=== PATIENT | female | born 1950 | race Caucasian/White ===

== ENCOUNTER → 2017-09-30 15:19 | Outpatient (CLI) | payer OTHER, SELFPAY ==
[2017-09-30 17:45] LABS: Absolute Neutrophil Count 2.8 X10^3/uL (2.0-7.7); Basophil# 0.05 X10^3/uL; Eosinophils% 3.8 % (0-5); Hematocrit 33.6 % (37-47); Hemoglobin 11.1 g/dl (12.0-15.0); Lymphocyte % 30.5 % (19-41); Mean Corpuscular Hgb 31.6 pg (27.0-32.0); Mean Corpuscular Volume 95.7 fL (81-99); Mean Platelet Vol. 9.7 fl (6.2-12.0); Monocyte# 0.56 X10^3/uL; Monocyte% 10.7 % (0-10); Neutrophil # 2.81 X10^3/uL (2.7-7.7); Neutrophil % 53.4 % (47-70); Platelet Count 280 K/mm3 (150-450); RBC Distribution Width CV 13.3 % (11.6-14.6); RBC Distribution Width SD 44.7 fl (35.1-43.9); Red Blood Count 3.51 M/mm3 (4.2-5.4); White Blood Count 5.3 K/mm3 (4.4-11.0)
[2017-09-30 17:46] LABS: POSITIVE COUNT NO; POSITIVE DIFFERENTIAL NO; POSITIVE MORPHOLOGY NO
[2017-09-30 18:27] LABS: ALB/GLOB Ratio 0.9 RATIO (0.9-2.4); AST(SGOT) 16 U/L (15-37); Alanine Aminotransfer ALT/SGPT 23 U/L (13-56); Albumin, Serum 3.3 g/dL (3.2-5.0); Alkaline Phosphatase 51 U/L (45-117); Anion Gap 8 (5-15); BUN 20 mg/dL (7-18); BUN/Creat Ratio 24.5 RATIO (10-20); Calcium,Total 8.7 mg/dL (8.5-10.1); Chloride 103 mmol/L (98-107); Creatinine, Serum 0.82 mg/dL (0.55-1.02); EST Glomerular Filtration Rate 75 mL/min (>60); Est Glom Filt Rate - Afr Amer 90 mL/min (>60); Globulin 3.8 g/dL (2.2-4.2); Glucose 104 mg/dL (74-106); Protein, Total 7.1 g/dL (6.4-8.2); Sodium Level 139 mmol/L (136-145)
== END ==
PROVIDERS: Family Provider Family Medicine; PCP Family Medicine; Visit Provider Internal Medicine Rheumatology
DX: M06.4 Inflammatory polyarthropathy (principal); M18.0 Bilateral primary osteoarthritis of first carpometacarpal joints; M18.9 Osteoarthritis of first carpometacarpal joint, unspecified; E11.9 Type 2 diabetes mellitus without complications; I10 Essential (primary) hypertension; E78.5 Hyperlipidemia, unspecified; K21.0 Gastro-esophageal reflux disease with esophagitis; Z79.899 Other long term (current) drug therapy; Z85.3 Personal history of malignant neoplasm of breast; Z85.41 Personal history of malignant neoplasm of cervix uteri
CPT/HCPCS: 36415; 80053; 85025

== ENCOUNTER → 2017-11-03 16:28 | Outpatient (CLI) | payer OTHER, MEDICARE, SELFPAY ==
[2017-11-03 17:35] LABS: ALB/GLOB Ratio 0.8 RATIO (0.9-2.4); AST(SGOT) 18 U/L (15-37); Alanine Aminotransfer ALT/SGPT 27 U/L (13-56); Albumin, Serum 3.4 g/dL (3.2-5.0); Alkaline Phosphatase 55 U/L (45-117); Anion Gap 7 (5-15); BUN 12 mg/dL (7-18); BUN/Creat Ratio 16.4 RATIO (10-20); CPK Total, Creatine Kinase 85 U/L (26-192); Calcium,Total 8.9 mg/dL (8.5-10.1); Chloride 104 mmol/L (98-107); Creatinine, Serum 0.73 mg/dL (0.55-1.02); EST Glomerular Filtration Rate 85 mL/min (>60); Est Glom Filt Rate - Afr Amer 102 mL/min (>60); Glucose 126 mg/dL (74-106); Phosphorus 2.6 mg/dL (2.5-4.9); Potassium 3.8 mmol/L (3.5-5.1); Protein, Total 7.4 g/dL (6.4-8.2); Sodium Level 140 mmol/L (136-145)
[2017-11-04 09:33] LABS: Vitamin B12 576 pg/mL (211-911); Vitamin D,25 Hydroxy 31.5 ng/mL (29.95-100.01)
== END ==
PROVIDERS: Family Provider Family Medicine; PCP Family Medicine; Visit Provider Nurse Practitioner Acute Care
DX: R20.2 Paresthesia of skin (principal); R20.0 Anesthesia of skin; Z51.81 Encounter for therapeutic drug level monitoring; Z79.899 Other long term (current) drug therapy
CPT/HCPCS: 36415; 80053; 82306; 82550; 82607; 82746; 83735; 84100

== ENCOUNTER → 2017-11-14 15:55 | Outpatient (CLI) | payer OTHER, MEDICARE, SELFPAY ==
--- NOTE | 2017-11-14 15:56 | CT_ITS ---
STUDY: CT CERVICAL SPINE WITHOUT CONTRAST REASON FOR EXAM: Female, 67 years old. Numbness RADIATION DOSAGE (If Supplied By Facility): CTDIvol = ( 17.90 ) mGy, DLP = ( 318.42 ) mGycm TECHNIQUE: High resolution transaxial imaging was performed without contrast material. Sagittal and coronal images were reconstructed. Individualized dose optimization techniques were used for this CT. COMPARISON: None available. FINDINGS: There is no evidence of fracture or dislocation in the cervical spine. The dens is intact. Alignment is normal. The vertebral body heights and disc spaces are well-maintained. There are mild degenerative changes with facet hypertrophy and endplate spondylosis throughout the cervical spine. The visualized paraspinal soft tissues are within normal limits. CT/Spine Cervical without Contras IMPRESSION: No fracture or dislocation in the cervical spine. Mild degenerative changes. Electronically Signed: Jose May, at 23:43 EDT Tel , Service support ,
--- NOTE | 2017-11-14 15:57 | CT_ITS ---
STUDY: CT THORACIC SPINE WITHOUT CONTRAST REASON FOR EXAM: Female, 67 years old. Numbness and pain in the neck and hands. RADIATION DOSAGE (If Supplied By Facility): CTDIvol = ( 27.60 ) mGy, DLP = ( 1125.87 ) mGycm TECHNIQUE: The patient was scanned in a multi detector CT scanner. High resolution imaging was performed. Images were obtained from C4 to L2. Sagittal and coronal images were reconstructed. Individualized dose optimization techniques were used for this CT. COMPARISON: CT of the cervical spine, November 14, 2017 FINDINGS: There is multilevel endplate spondylosis of the cervical spine. There is minimal exaggeration of the thoracic kyphosis. There is a levoscoliosis with the convexity at T8. There is multilevel endplate spondylosis of the thoracic spine. There is multilevel degenerative disc disease with loss of the disc space heights. There is no evidence of acute fracture or loss of vertebral axial height. The soft tissue structures are unremarkable. CT/Spine Thoracic without Contras IMPRESSION: Scoliosis and degenerative changes of the thoracic spine. Electronically Signed: Mehdi Polanco DO at 16:41 EDT Tel [phone], Service support ,
== END ==
PROVIDERS: Family Provider Family Medicine; PCP Family Medicine; Visit Provider Nurse Practitioner Acute Care
DX: R20.0 Anesthesia of skin (principal); M79.602 Pain in left arm; M79.601 Pain in right arm
CPT/HCPCS: 72125; 72128

== ENCOUNTER → 2017-12-22 15:58 | Outpatient (CLI) | payer OTHER, MEDICARE, SELFPAY ==
[2017-12-22 18:31] LABS: Absolute Lymphocyte Count 1.41 X10^3/ul (0.83-4.51); Absolute Neutrophil Count 4.4 X10^3/uL (2.0-7.7); Basophil# 0.05 X10^3/uL; Basophil% 0.8 % (0-1); Eosinophil# 0.16 X10^3/uL; Eosinophils% 2.4 % (0-5); Hematocrit 36.3 % (37-47); Hemoglobin 12.1 g/dl (12.0-15.0); Lymphocyte # 1.41 X10^3/ul (4.0); Lymphocyte % 21.4 % (19-41); Mean Corp Hgb Conc 33.3 g/gl (32-36); Mean Corpuscular Hgb 31.7 pg (27.0-32.0); Monocyte# 0.53 X10^3/uL; Monocyte% 8.1 % (0-10); Neutrophil # 4.41 X10^3/uL (2.7-7.7); Platelet Count 293 K/mm3 (150-450); RBC Distribution Width CV 13.2 % (11.6-14.6); RBC Distribution Width SD 43.8 fl (35.1-43.9); Red Blood Count 3.82 M/mm3 (4.2-5.4); White Blood Count 6.6 K/mm3 (4.4-11.0)
[2017-12-22 18:34] LABS: ALB/GLOB Ratio 0.8 RATIO (0.9-2.4); AST(SGOT) 11 U/L (15-37); Alanine Aminotransfer ALT/SGPT 23 U/L (13-56); Albumin, Serum 3.5 g/dL (3.2-5.0); Alkaline Phosphatase 64 U/L (45-117); Anion Gap 5 (5-15); BUN 15 mg/dL (7-18); BUN/Creat Ratio 16.9 RATIO (10-20); Calcium,Total 9.1 mg/dL (8.5-10.1); Chloride 104 mmol/L (98-107); Creatinine, Serum 0.89 mg/dL (0.55-1.02); EST Glomerular Filtration Rate 68 mL/min (>60); Est Glom Filt Rate - Afr Amer 82 mL/min (>60); Globulin 4.4 g/dL (2.2-4.2); Glucose 175 mg/dL (74-106); Potassium 4.6 mmol/L (3.5-5.1); Protein, Total 7.9 g/dL (6.4-8.2); Sodium Level 140 mmol/L (136-145)
[2017-12-22 18:52] LABS: POSITIVE COUNT NO; POSITIVE DIFFERENTIAL NO; POSITIVE MORPHOLOGY NO
== END ==
PROVIDERS: Family Provider Family Medicine; PCP Family Medicine; Visit Provider Internal Medicine Rheumatology
DX: M06.4 Inflammatory polyarthropathy (principal); M18.0 Bilateral primary osteoarthritis of first carpometacarpal joints; M18.9 Osteoarthritis of first carpometacarpal joint, unspecified; I10 Essential (primary) hypertension; E78.5 Hyperlipidemia, unspecified; K21.0 Gastro-esophageal reflux disease with esophagitis; Z79.899 Other long term (current) drug therapy; Z85.3 Personal history of malignant neoplasm of breast; Z85.41 Personal history of malignant neoplasm of cervix uteri
CPT/HCPCS: 36415; 80053; 85025

== ENCOUNTER → 2018-02-01 08:22 | Outpatient (CLI) | payer OTHER, MEDICARE, SELFPAY ==
--- NOTE | 2018-02-01 14:18 | NEURO ---
NCS and/or EMG Patient Report Ordering Doctor: Kylie Retana DATE OF SERVICE: 02/01/18 Manisha Beth is a 67-year-old female presents for electrodiagnostic testing of the upper limbs. She has chief complaint of numbness and tingling in both hands. Electrodiagnostic findings: Median motor nerve demonstrates prolonged distal latency bilaterally with normal amplitude and reduced conduction velocity. Prolonged median sensory distal latency bilaterally. normal ulnar and radial sensory responses. Median ulnar F waves are within normal limits ulnar motor responses normal, including conduction across the elbow. Electrodiagnostic impression: This is an abnormal study in the upper limbs. 1. Electrodiagnostic findings demonstrate bilateral median mononeuropathy. This is consistent with a moderate right carpal tunnel syndrome and a mild left carpal tunnel syndrome If there are any further questions, please do not hesitate to contact me
== END ==
PROVIDERS: Family Provider Family Medicine; PCP Family Medicine; Visit Provider Nurse Practitioner Acute Care
DX: R20.0 Anesthesia of skin (principal); R20.2 Paresthesia of skin
CPT/HCPCS: 95886; 95913

== ENCOUNTER → 2018-03-01 08:47 | Outpatient (CLI) | payer OTHER, MEDICARE, SELFPAY ==
--- NOTE | 2018-03-01 10:37 | NEURO ---
NCS and/or EMG Patient Report Ordering Doctor: Kylie Retana DATE OF SERVICE: 03/01/18 Manisha Beth is a 67-year-old female presents for electrodiagnostic testing of the lower limbs. She reports chief complaint of numbness and tingling in both feet, worse on the right side. Electrodiagnostic findings: Peroneal motor nerve demonstrates normal distal latency, amplitude and conduction velocity bilaterally. Normal tibial motor response bilaterally. Prolonged tibial F-wave bilaterally. Prolonged H reflex bilaterally. Sensory responses are within normal limits. On needle EMG, all muscles tested in the lower limb show no evidence of denervation with normal motor unit action potentials. Electrodiagnostic impression: This is an abnormal study in the lower limbs. 1. Electrodiagnostic findings are suggestive of a mild polyneuropathy in the lower limbs as evidenced by prolonged H reflexes and F waves. 2. No EMG evidence for lumbosacral radiculopathy. If there are any further questions, please not hesitate to contact me
== END ==
PROVIDERS: Family Provider Family Medicine; PCP Family Medicine; Visit Provider Nurse Practitioner Acute Care
DX: R20.2 Paresthesia of skin (principal); R20.0 Anesthesia of skin
CPT/HCPCS: 95886; 95913

== ENCOUNTER → 2018-03-13 13:04 | Outpatient (CLI) | payer OTHER, MEDICARE, SELFPAY ==
--- NOTE | 2018-03-13 13:09 | RAD_ITS ---
STUDY: X-RAY - RIGHT KNEE REASON FOR EXAM: Female, 67 years old. Pain TECHNIQUE: 4 view(s) of the knee. COMPARISON: None. FINDINGS: Normal visualized distal femur. Normal visualized proximal tibia and fibula. Normal proximal tibiofibular articulation. Normal medial femorotibial compartment. Normal lateral femorotibial compartment. Normal patellofemoral articulation. The soft tissue structures are unremarkable. RAD/Knee 4 or More Views IMPRESSION: Normal x-ray examination of the knee. Electronically Signed: Saúl Diaz DO at 23:35 EDT Tel [phone], Service support ,
--- NOTE | 2018-03-13 13:09 | RAD_ITS ---
STUDY: X-RAY - LEFT KNEE REASON FOR EXAM: Female, 67 years old. Pain TECHNIQUE: 4 view(s) of the knee. COMPARISON: None. FINDINGS: Normal visualized distal femur. Normal visualized proximal tibia and fibula. Normal proximal tibiofibular articulation. Normal medial femorotibial compartment. Normal lateral femorotibial compartment. Normal patellofemoral articulation. The soft tissue structures are unremarkable. RAD/Knee 4 or More Views IMPRESSION: Normal x-ray examination of the knee. Electronically Signed: Saúl Diaz DO at 20:43 EDT Tel [phone], Service support ,
[2018-03-13 14:09] LABS: Absolute Lymphocyte Count 2.04 X10^3/ul (0.83-4.51); Absolute Neutrophil Count 3.9 X10^3/uL (2.0-7.7); Basophil# 0.04 X10^3/uL; Basophil% 0.6 % (0-1); Eosinophil# 0.25 X10^3/uL; Eosinophils% 3.6 % (0-5); Hematocrit 35.4 % (37-47); Hemoglobin 11.5 g/dl (12.0-15.0); Lymphocyte # 2.04 X10^3/ul (4.0); Lymphocyte % 29.2 % (19-41); Mean Corp Hgb Conc 32.5 g/gl (32-36); Mean Corpuscular Hgb 30.7 pg (27.0-32.0); Mean Corpuscular Volume 94.7 fL (81-99); Mean Platelet Vol. 9.5 fl (6.2-12.0); Monocyte# 0.68 X10^3/uL; Monocyte% 9.7 % (0-10); Neutrophil # 3.94 X10^3/uL (2.7-7.7); Neutrophil % 56.5 % (47-70); Platelet Count 283 K/mm3 (150-450); RBC Distribution Width CV 13.6 % (11.6-14.6); RBC Distribution Width SD 44.5 fl (35.1-43.9); Red Blood Count 3.74 M/mm3 (4.2-5.4)
[2018-03-13 14:13] LABS: POSITIVE COUNT NO; POSITIVE DIFFERENTIAL NO; POSITIVE MORPHOLOGY NO
[2018-03-13 14:38] LABS: ALB/GLOB Ratio 0.8 RATIO (0.9-2.4); AST(SGOT) 19 U/L (15-37); Alanine Aminotransfer ALT/SGPT 27 U/L (13-56); Albumin, Serum 3.4 g/dL (3.2-5.0); Alkaline Phosphatase 65 U/L (45-117); Anion Gap 9 (5-15); BUN 21 mg/dL (7-18); BUN/Creat Ratio 22.2 RATIO (10-20); Calcium,Total 8.9 mg/dL (8.5-10.1); Chloride 101 mmol/L (98-107); Creatinine, Serum 0.95 mg/dL (0.55-1.02); EST Glomerular Filtration Rate 63 mL/min (>60); Est Glom Filt Rate - Afr Amer 76 mL/min (>60); Glucose 193 mg/dL (74-106); Potassium 4.3 mmol/L (3.5-5.1); Protein, Total 7.4 g/dL (6.4-8.2); Sodium Level 140 mmol/L (136-145)
== END ==
PROVIDERS: Family Provider Family Medicine; PCP Family Medicine; Visit Provider Internal Medicine Rheumatology
DX: M06.4 Inflammatory polyarthropathy (principal); M18.0 Bilateral primary osteoarthritis of first carpometacarpal joints; M18.9 Osteoarthritis of first carpometacarpal joint, unspecified; E11.319 Type 2 diabetes mellitus with unspecified diabetic retinopathy without macular edema; I10 Essential (primary) hypertension; E78.5 Hyperlipidemia, unspecified; K21.0 Gastro-esophageal reflux disease with esophagitis; Z79.899 Other long term (current) drug therapy; Z85.3 Personal history of malignant neoplasm of breast; Z85.41 Personal history of malignant neoplasm of cervix uteri
CPT/HCPCS: 36415; 73564; 80053; 85025

== ENCOUNTER → 2018-03-14 15:30 | Outpatient (CLI) | payer OTHER, MEDICARE, SELFPAY ==
[2018-03-17 03:07] LABS: Red Blood Cell Count Test/G6PD 3.68 x10E6/uL (3.77-5.28)
[2018-03-17 11:45] LABS: G6PD Quant Test 313 (146-376)
== END ==
PROVIDERS: Family Provider Family Medicine; PCP Family Medicine; Visit Provider Internal Medicine Rheumatology
DX: M06.4 Inflammatory polyarthropathy (principal); M18.0 Bilateral primary osteoarthritis of first carpometacarpal joints; G56.03 Carpal tunnel syndrome, bilateral upper limbs; Z79.899 Other long term (current) drug therapy
CPT/HCPCS: 36415; 82955

== ENCOUNTER → 2018-06-06 15:57 | Outpatient (CLI) | payer OTHER, MEDICARE, SELFPAY ==
[2018-06-06 18:03] LABS: Absolute Lymphocyte Count 1.54 X10^3/ul (0.83-4.51); Absolute Neutrophil Count 4.7 X10^3/uL (2.0-7.7); Basophil# 0.02 X10^3/uL; Basophil% 0.3 % (0-1); Eosinophils% 2.8 % (0-5); Hematocrit 33.9 % (37-47); Hemoglobin 10.8 g/dl (12.0-15.0); Lymphocyte # 1.54 X10^3/ul (4.0); Lymphocyte % 21.6 % (19-41); Mean Corp Hgb Conc 31.9 g/gl (32-36); Mean Corpuscular Hgb 30.3 pg (27.0-32.0); Mean Corpuscular Volume 95.2 fL (81-99); Mean Platelet Vol. 9.2 fl (6.2-12.0); Monocyte# 0.61 X10^3/uL; Monocyte% 8.6 % (0-10); Neutrophil # 4.72 X10^3/uL (2.7-7.7); Neutrophil % 66.3 % (47-70); Platelet Count 276 K/mm3 (150-450); RBC Distribution Width CV 14.5 % (11.6-14.6); RBC Distribution Width SD 49.5 fl (35.1-43.9); Red Blood Count 3.56 M/mm3 (4.2-5.4); White Blood Count 7.1 K/mm3 (4.4-11.0)
[2018-06-06 18:14] LABS: POSITIVE COUNT NO; POSITIVE DIFFERENTIAL NO; POSITIVE MORPHOLOGY NO
[2018-06-06 18:18] LABS: ALB/GLOB Ratio 0.8 RATIO (0.9-2.4); AST(SGOT) 20 U/L (15-37); Alanine Aminotransfer ALT/SGPT 34 U/L (13-56); Albumin, Serum 3.1 g/dL (3.2-5.0); Alkaline Phosphatase 54 U/L (45-117); Anion Gap 8 (5-15); BUN 16 mg/dL (7-18); BUN/Creat Ratio 18.5 RATIO (10-20); Chloride 104 mmol/L (98-107); Creatinine, Serum 0.86 mg/dL (0.55-1.02); EST Glomerular Filtration Rate 70 mL/min (>60); Est Glom Filt Rate - Afr Amer 85 mL/min (>60); Globulin 4.1 g/dL (2.2-4.2); Glucose 149 mg/dL (74-106); Potassium 4.2 mmol/L (3.5-5.1); Protein, Total 7.2 g/dL (6.4-8.2); Sodium Level 140 mmol/L (136-145)
== END ==
PROVIDERS: Family Provider Family Medicine; PCP Family Medicine; Referring Provider Internal Medicine Rheumatology; Visit Provider Internal Medicine Rheumatology
DX: M06.4 Inflammatory polyarthropathy (principal); M18.0 Bilateral primary osteoarthritis of first carpometacarpal joints; G56.01 Carpal tunnel syndrome, right upper limb; G56.02 Carpal tunnel syndrome, left upper limb; E11.319 Type 2 diabetes mellitus with unspecified diabetic retinopathy without macular edema; I10 Essential (primary) hypertension; E78.5 Hyperlipidemia, unspecified; K21.0 Gastro-esophageal reflux disease with esophagitis; Z79.899 Other long term (current) drug therapy; Z85.3 Personal history of malignant neoplasm of breast; Z85.41 Personal history of malignant neoplasm of cervix uteri
CPT/HCPCS: 36415; 80053; 85025

== ENCOUNTER → 2018-09-06 12:29 | Outpatient (CLI) | payer OTHER, MEDICARE, SELFPAY ==
[2018-09-06 14:31] LABS: Absolute Lymphocyte Count 2.52 X10^3/ul (0.83-4.51); Absolute Neutrophil Count 4.7 X10^3/uL (2.0-7.7); Basophil# 0.05 X10^3/uL; Basophil% 0.6 % (0-1); Eosinophils% 2.4 % (0-5); Hematocrit 37.3 % (37-47); Hemoglobin 11.9 g/dl (12.0-15.0); Lymphocyte # 2.52 X10^3/ul (4.0); Lymphocyte % 30.8 % (19-41); Mean Corp Hgb Conc 31.9 g/gl (32-36); Mean Corpuscular Hgb 30.7 pg (27.0-32.0); Mean Corpuscular Volume 96.4 fL (81-99); Monocyte# 0.66 X10^3/uL; Monocyte% 8.1 % (0-10); Neutrophil # 4.71 X10^3/uL (2.7-7.7); Neutrophil % 57.5 % (47-70); Platelet Count 290 K/mm3 (150-450); RBC Distribution Width CV 13.6 % (11.6-14.6); Red Blood Count 3.87 M/mm3 (4.2-5.4); White Blood Count 8.2 K/mm3 (4.4-11.0)
[2018-09-06 14:37] LABS: POSITIVE COUNT NO; POSITIVE DIFFERENTIAL NO; POSITIVE MORPHOLOGY NO
[2018-09-06 14:46] LABS: ALB/GLOB Ratio 0.8 RATIO (0.9-2.4); AST(SGOT) 17 U/L (15-37); Alanine Aminotransfer ALT/SGPT 22 U/L (13-56); Albumin, Serum 3.3 g/dL (3.2-5.0); Alkaline Phosphatase 51 U/L (45-117); Anion Gap 7 (5-15); BUN 14 mg/dL (7-18); BUN/Creat Ratio 14.6 RATIO (10-20); Calcium,Total 8.9 mg/dL (8.5-10.1); Chloride 103 mmol/L (98-107); Creatinine, Serum 0.96 mg/dL (0.55-1.02); EST Glomerular Filtration Rate 62 mL/min (>60); Est Glom Filt Rate - Afr Amer 75 mL/min (>60); Globulin 4.2 g/dL (2.2-4.2); Glucose 145 mg/dL (74-106); Potassium 3.9 mmol/L (3.5-5.1); Protein, Total 7.5 g/dL (6.4-8.2); Sodium Level 140 mmol/L (136-145)
--- OUTSIDE RECORDS SUMMARY | 2018-11-08 11:37 | XMS RPT_ITS ---
:1950 Author Organization OHIP Support Name Relationship Address Phone CHARY SHELLY Unavailable Unavailable + NECHRIS CHIOMA Unavailable Unavailable + WOOSU Unavailable [address] + [place] [address] METSKER, SHELLY Unavailable [address] + [place] [address] NEIMEISTER, CHIOMA Unavailable [address] + [place] [address] WOOSU Unavailable [address] + [place] [address] METSKER, SHELLY Unavailable [address] + [place] [address] NEIMEISTER, CHIOMA Unavailable [address] + [place] [address] WOOSU Unavailable [address] + [place] [address] METSKER, SHELLY Unavailable [address] + [place] [address] NEIMEISTER, CHIOMA Unavailable [address] + [place] [address] WOOSU Unavailable [address] + [place] [address] METSKER, SHELLY Unavailable [address] + [place] [address] NEIMEISTER, CHIOMA Unavailable [address] + [place] [address] WOOSU Unavailable [address] + [place] [address] METSKER, SHELLY Unavailable [address] + [place] [address] NEIMEISTER, CHIOMA Unavailable [address] + [place] [address] WOOSU Unavailable [address] + [place] [address] METSKER, SHELLY Unavailable [address] + [place] [address] NEIMEISTER, CHIOMA Unavailable [address] + [place] [address] WOOSU Unavailable [address] + [place] [address] METSKER, SHELLY Unavailable [address] + [place] [address] NEIMEISTER, CHIOMA Unavailable [address] + [place] [address] WOOSU Unavailable [address] + [place] [address] METSKER, SHELLY Unavailable [address] + [place] [address] NEIMEISTER, CHIOMA Unavailable [address] + [place] [address] WOOSU Unavailable [address] + [place] [address] D Unavailable Unavailable Unavailable METSKER, SHELLY Unavailable [address] + [place] [address] NEIMEISTER, CHIOMA Unavailable [address] + [place] [address] Care Team Providers Name Role Phone BRAYAN ARITA Attending Unavailable BRAYAN ARITA Referring Unavailable BRAYAN ARITA Referring Unavailable BRAYAN ARITA Referring Unavailable MARINO SIMS (PA) Attending Unavailable BRAYAN ARITA Referring Unavailable BRAYAN ARITA Referring Unavailable BRAYAN ARITA Attending Unavailable BRAYAN ARITA Referring Unavailable BRAYAN ARITA Referring Unavailable BRAYAN ARITA Referring Unavailable Deidre BARBOZA (PA-C) Referring Unavailable BRAYAN ARITA Attending Unavailable BRAYAN ARITA Referring Unavailable BRAYAN ARITA Referring Unavailable CARA CLEVELAND (DENTAL DETAIL REPRESENTATIVE) Attending Unavailable BRAYAN ARITA Referring Unavailable BRAYAN ARITA Referring Unavailable EDGAR, BRAYAN Chance Attending Unavailable EDGAR, BRAYAN Chance Referring Unavailable EDGAR, BRAYAN J Referring Unavailable YSABEL EDWARDS (DENTAL DETAIL REPRESENTATIVE) Attending Unavailable EDGAR, BRAYAN Chance Referring Unavailable EDGAR, BRAYAN Chance Attending Unavailable EDGAR, BRAYAN J Referring Unavailable EDGAR, BRAYAN J Referring Unavailable Deidre BARBOZA (PA-C) Attending Unavailable EDGAR, BRAYAN Chance Attending Unavailable EDGAR, BRAYAN Chance Referring Unavailable EDGAR, BRAYAN J Referring Unavailable Vellanki, Rachel Attending Unavailable Vellanki, Rachel Referring Unavailable Corning, Brayan Primary Care Unavailable Vellanki, Rachel Attending Unavailable Edgar, Brayan Primary Care Unavailable Mazin, Titonka LASER PRINT OPERATOR-C Attending Unavailable Mazin, Titonka LASER PRINT OPERATOR-C Referring Unavailable Corning, Brayan Primary Care Unavailable Mazin, Kylie LASER PRINT OPERATOR-C Attending Unavailable Corning, Brayan Primary Care Unavailable Vellanki, Rachel Attending Unavailable Vellanki, Rachel Referring Unavailable Edgar, Brayan Primary Care Unavailable Mazin, Titonka LASER PRINT OPERATOR-C Attending Unavailable Mazin, Kylie LASER PRINT OPERATOR-C Referring Unavailable Corning, Brayan Primary Care Unavailable Mazin, [place] LASER PRINT OPERATOR-C Attending Unavailable Corning, Brayan Primary Care Unavailable Vellanki, Rachel Attending Unavailable Vellanki, Rachel Referring Unavailable Edgar, Brayan Primary Care Unavailable Vellanki, Rachel Attending Unavailable Vellanki, Rachel Referring Unavailable Edgar, Brayan Primary Care Unavailable Vellanki, Rachel Attending Unavailable Vellanki, Rachel Referring Unavailable Corning, Brayan Primary Care Unavailable PROBLEMS PROBLEMS DATE TYPE CONDITION / CODE ATTENDING STATUS SOURCE 09/06/2018 Unknown 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, 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 / Community M06.4(ICD-10) Hospital Repository 09/06/2018 Unknown Z79.899 - Other long Vellanki, Rachel Active [facility] term (current) drug Community therapy / Hospital Z79.899(ICD-10) Repository 09/06/2018 Unknown M15.9 - Vellanki, Rachel Active [facility] Polyosteoarthritis, Community unspecified / Hospital M15.9(ICD-10) Repository 09/06/2018 Unknown M18.0 - Bilateral Vellanki, Rachel Active [facility] primary Community osteoarthritis of Hospital first carpometacarpal Repository joints / M18.0(ICD-10) 09/06/2018 Unknown G56.01 - Carpal Vellanriki, Rachel Active [facility] tunnel syndrome, Community right upper limb / Hospital G56.01(ICD-10) Repository 09/06/2018 Unknown G56.02 - Carpal Rachel Johnson Active [facility] tunnel syndrome, left Community upper limb / Hospital G56.02(ICD-10) Repository 08/31/2018 Active Myalgia, unspecified NA Active [facility] site / M79.10(ICD-10) Clinic Main [place] Repository 08/31/2018 Active Tremor, unspecified / NA Active [facility] R25.1(ICD-10) [facility] [place] Repository 08/31/2018 Active Essential (primary) NA Active [facility] hypertension / [facility] Main I10(ICD-10) [facility] Repository 06/06/2018 Unknown K21.0 - Rachel Johnson Active [facility] Gastro-esophageal Community reflux disease with Hospital esophagitis / Repository K21.0(ICD-10) 06/06/2018 Unknown I10 - Essential Rachel Johnson Active [facility] (primary) Community hypertension / Hospital I10(ICD-10) Repository 06/06/2018 Unknown E11.319 - Type 2 Rachel Johnson Active [facility] diabetes mellitus Community with unspecified Hospital diabetic retinopathy Repository without macular edema / E11.319(ICD-10) 06/06/2018 Unknown E78.5 - Rachel Johnson Active [facility] Hyperlipidemia, Community unspecified / Hospital E78.5(ICD-10) Repository 06/06/2018 Unknown Z85.3 - Personal Rachel Johnson Active [facility] history of malignant Community neoplasm of breast / Hospital Z85.3(ICD-10) Repository 06/06/2018 Unknown Z85.41 - Personal Rachel Johnson Active [facility] history of malignant Community neoplasm of cervix Hospital uteri / Repository Z85.41(ICD-10) 06/06/2018 Unknown M18.9 - Rachel Johnson Active [facility] Osteoarthritis of Community first carpometacarpal Hospital joint, unspecified / Repository M18.9(ICD-10) 05/05/2018 Active Cough / R05(ICD-10) NA Active [facility] Main [place] Repository 05/05/2018 Active Anemia, unspecified / NA Active [facility] D64.9(ICD-10) [facility] [place] Repository 04/20/2018 Active Pain in leg, NA Active [facility] unspecified / [facility] Main M79.606(ICD-10) [place] Repository 04/20/2018 Active Polyarthritis, NA Active [facility] unspecified / [facility] Main M13.0(ICD-10) [place] Repository 04/20/2018 Active Unspecified urinary NA Active [facility] incontinence / Clinic Main R32(ICD-10) [place] Repository 05/05/2018 Unknown R20.2 - Paresthesia Kylie Retana Active [facility] of skin / LASER PRINT OPERATOR-C [facility] R20.2(ICD-10) Hospital Repository 08/28/2018 Unknown R20.0 - Anesthesia of Kylei Retana Active [facility] skin / R20.0(ICD-10) LASER PRINT OPERATOR-C [facility] Hospital Repository 01/17/2018 Active Asymptomatic NA Active [facility] menopausal state / Clinic Main Z78.0(ICD-10) [place] Repository 01/10/2018 Active Other long term care administrator NA Active [facility] (current) drug [facility] Main therapy / [place] Z79.899(ICD-10) Repository 01/10/2018 Active Mixed hyperlipidemia NA Active [facility] / E78.2(ICD-10) [facility] [place] Repository 11/10/2017 Active Unknown / MARINO SIMS Active [facility] UNK(Unknown) (PA) Clinic Main [place] Repository 11/10/2017 Active Encounter for NA Active [facility] screening mammogram [facility] Main for malignant [place] neoplasm of breast / Repository Z12.31(ICD-10) 10/11/2017 Active Type 2 diabetes NA Active [facility] mellitus with Clinic Main proliferative [place] diabetic retinopathy Repository without macular edema, unspecified eye / E11.3599(ICD-10) 10/11/2017 Active buttermaker (current) Active [place] use of insulin / Clinic Main Z79.4(ICD-10) [place] Repository PROCEDURES PROCEDURES No Procedure Records FoundRESULTS RESULTS CBC W/DIFF, AUTOMATED Collected: 09/06/2018 Status: F Source: [facility] 12:38 PM [facility] REPOSITORY TYPE CODE TESTS RESULT OUT OF RANGE REFERENCE UNITS LAB L100.1000 4.4-11.0 K/mm3 Normal WBC 8.2 LAB L100.1200 4.2-5.4 M/mm3 Low RBC 3.87 LAB L100.1300 12.0-15.0 g/dl Low HGB 11.9 LAB L100.1400 37-47 % Normal HCT 37.3 LAB L100.1500 81-99 fL Normal MCV 96.4 LAB L100.1600 27.0-32.0 pg Normal MCH 30.7 LAB L100.1700 32-36 g/gl Low MCHC 31.9 LAB L100.1810 11.6-14.6 % Normal RDW CV 13.6 LAB L100.1820 35.1-43.9 fl High RDW SD 46.0 LAB L100.1900 150-450 K/mm3 Normal PLT 290 LAB L100.2000 6.2-12.0 fl Normal MPV 10.0 LAB L100.2100 47-70 % Normal NEUT% 57.5 LAB L100.2200 19-41 % Normal LY% 30.8 LAB L100.2300 0-10 % Normal MONO% 8.1 LAB L100.2400 0-5 % Normal EO% 2.4 LAB L100.2500 0-1 % Normal BASO% 0.6 LAB L100.2550 0.0-0.9 % Normal IM GRAN % 0.600 Result Comment: IG% - Immature Granulocytes (promyelocytes, myelocytes and metamyelocytes) > 1% indicates that a LEFT SHIFT is Present. LAB L100.2620 2.0-7.7 X10 3/uL Normal Absolute Neut 4.7 LAB L100.2720 0.83-4.51 X10 3/ul Normal Absolute Lymph 2.52 Performed By: #### L100.0100 #### [facility] [address] [place], [address] COMPREHENSIVE METABOLIC Collected: 09/06/2018 Status: F Source: [facility] 12:38 PM [facility] REPOSITORY TYPE CODE TESTS RESULT OUT OF RANGE REFERENCE UNITS LAB L501.0100 74-106 mg/dL High GLU 145 Result Comment: Fasting Glucose result greater than or equal to 126 mg/dL suggests DIABETES MELLITUS per A.D.A. criteria. Please note revised GLUCOSE reference range effective 2017. LAB L501.1000 7-18 mg/dL Normal BUN 14 LAB L501.1100 0.55-1.02 mg/dL Normal CREAT,SERUM 0.96 Result Comment: The validity of the calculated GFR AND GFRAA in patients over 70 years has not been determined. Clinical correlation is essential. LAB L501.1110 >60 mL/min Normal EST GFR 62 Result Comment: Non- GFR Calc LAB L501.1115 >60 mL/min Normal EST GFR - AA 75 Result Comment: GFR Calc LAB L501.1300 10-20 RATIO Normal BUN/CRE 14.6 LAB L501.1500 6.4-8.2 g/dL T Normal PROT 7.5 LAB L501.1800 3.2-5.0 g/dL Normal ALB 3.3 LAB L501.1950 2.2-4.2 g/dL Normal GLOB 4.2 LAB L501.2000 0.9-2.4 RATIO Low A/G 0.8 LAB L501.2200 8.5-10.1 mg/dL CA Normal 8.9 LAB L501.4100 15-37 U/L Normal AST 17 LAB L501.4305 45-117 U/L Normal ALK P 51 LAB L501.4405 13-56 U/L Normal ALT 22 LAB L501.4600 0.20-1.00 mg/dL T Normal BILI 0.30 LAB L501.5300 136-145 mmol/L NA Normal 140 LAB L501.5600 3.5-5.1 mmol/L K Normal 3.9 LAB L501.5900 98-107 mmol/L CL Normal 103 LAB L501.6100 21.0-32.0 mmol/L Normal CO2 30.0 LAB L501.6200 5-15 Normal GAP 7 Performed By: #### L500.4050 #### [facility] [place], [address] OBSOLETE Observed: 09/06/2018 Status: COMPLETED Source: [facility] 12:00 AM [facility] REPOSITORY [facility] MANISHA KEITH ([id number]) 1950 F Date Time Provider Department 09/06/18 BRAYAN ARITA During your visit today, we recorded the following information about you: Lyndsey Zoey García Psr 09/06/2018 3:20 PM Signed Patient has been identified by name and date of : Yes Pending Prescriptions Disp Refills BETHANECHOL CHLORIDE 25 MG TABLET Sig: take 1 tablet 3 times per day 90 3 NALDO: No RX INSTRUCTIONS: Patient aware RX will be sent to pharmacy. No need to notify patient. Lyndsey García Psr Kerry Spivey Ma 09/06/2018 4:14 PM Signed Never filled by PCP. Kerry Arita MD 09/06/2018 4:26 PM Signed Is she getting this from urology? Areli Salas LPN 09/06/2018 4:54 PM Signed This is from when she was in the hospital and then in residential for rehab. She states the bottle has Corning name on it. Brayan Arita MD 09/06/2018 5:25 PM Signed We have never called it in. Now sure why my name is on it. Verify dose and quantity dose. Rica Hogan LPN 09/07/2018 8:54 AM Signed Dose: takes 1 by mouth 3 times per day qty 90 with refills. Rica Hogan LPN Allergies As of Date: 09/06/2018 Noted Allergy Reaction JESENIA INHIBITORS 03/27/2014 3 - Cough NSAIDS (NON-STEROIDAL ANTI-INFLAM*05/09/2009 8 - GI Upset TAPE (ADHESIVE TAPE (ROSINS)) 10/26/2016 14 - Other: See Comments Comments: Blisters from surgical tape Date Reviewed: 08/02/2018 Reviewed by: Macarena Lepe LPN - Fully Assessed Reason for Visit: Refill Request [94] Order(s):bethanechol (URECHOLINE) 25 mg tabletTake 1 tablet by mouth three times daily.Disp: 90 tabletRfl: 5 Prescriptions as of 09/06/2018 Sig: BETHANECHOL CHLORIDE 25 MG TA* Take 1 tablet by mouth three * INSULIN ASPART U-100 100 UNI* Inject subcutaneously 5 units* METFORMIN 1,000 MG TABLET Take 1 tablet by mouth twice * LOSARTAN 100 MG TABLET Take 1 tablet by mouth once d* METOPROLOL SUCCINATE ER 25 MG* Take 1 tablet by mouth once d* ATORVASTATIN 20 MG TABLET Take 1 tablet by mouth daily * BUDESONIDE 180 MCG/ACTUATION * Inhale 2 Puffs as instructed * MELOXICAM 15 MG TABLET Take 1 tablet by mouth once d* LORATADINE 10 MG TABLET Take 1 tablet by mouth once d* INSULIN GLARGINE (U-100) 100 * Inject 38 Units subcutaneousl* SULFASALAZINE 500 MG TABLET,D* PANTOPRAZOLE 40 MG TABLET,DEL* Take 1 tablet by mouth once d* BLOOD SUGAR DIAGNOSTIC STRIPS Test blood sugar(s) 3 times d* BLOOD-GLUCOSE METER KIT Glucose Meter of Choice - Kit* ALENDRONATE 70 MG TABLET Take 1 tablet by mouth once e* OXYBUTYNIN CHLORIDE 5 MG TABL* Take 1 tablet by mouth once d* FLUTICASONE 50 MCG/ACTUATION * Use 1 Blanch in each nostril d* HYDROCHLOROTHIAZIDE 12.5 MG C* TAKE ONE CAPSULE BY MOUTH ONC* COMPOUNDED PRESCRIPTION Insulin needles-1/2 cc for 10* FLUOROMETHOLONE 0.1 % EYE MARINE* Use 2 Drops in the left eye t* ASPIRIN 81 MG TABLET,DELAYED * Take 81 mg by mouth once burt* METHOTREXATE SODIUM 2.5 MG TA* Take 20 mg by mouth every Sun* PEN NEEDLE, DIABETIC 31 GAUGE* Use one needle per dose. 4 pe* FOLIC ACID 1 MG TABLET Take 2 tablets by mouth once * * CALCIUM 600 ORAL Take by mouth once daily. * CENTRUM SILVER ORAL Take by mouth once daily. Problem List As Of Date 09/06/2018 Noted Resolved BENIGN HYPERTENSION [I10] INVALID FOR*09/01/2007 Hyperlipidemia [E78.5] INVALID FOR* LOC PRIM OSTEOART-PELVIS [M16.10] INVALID FOR*06/04/2006 Allergic rhinitis [J30.9] INVALID FOR* Diabetes (HCC) [E11.9] INVALID FOR*06/27/2015 Unspecified sleep apnea [G47.30] INVALID FOR*12/07/2013 More... Osteoarthritis [M19.90] INVALID FOR* Irritable bowel syndrome [K58.9] INVALID FOR*11/25/2016 Dysuria [R30.0] INVALID FOR*05/25/2016 Unspecified sinusitis (chronic) [J32.9] INVALID FOR*05/25/2016 Other specified disorder of bladder [596.8] INVALID FOR*11/25/2016 ASYMPTOMATIC VARICOSE VEINS [I83.90] INVALID FOR* REFLUX ESOPHAGITIS [K21.0] ESOPHAGITIS, UNSPECIFIED [K20.9] INVALID FOR*07/30/2008 Malignant neoplasm of female breast (HCC) [C50.*INVALID FOR*05/25/2016 IBS (Irritable Bowel Syndrome) [K58.9] Heme positive stool [R19.5] 11/22/2013 Routine general medical examination [facility]*INVALID FOR*11/22/2013 HTN (hypertension) [I10] INVALID FOR* Urge incontinence [N39.41] INVALID FOR* Inflammatory polyarthritis (HCC) [M06.4] More... Type 2 diabetes mellitus with diabetic retinopa*INVALID FOR* History of cervical cancer [Z85.41] More... History of breast cancer [Z85.3] INVALID FOR* H/O left mastectomy [Z90.12] INVALID FOR* Obesity, Class I, BMI 30-34.9 [E66.9] INVALID FOR* Prescriptions ordered this encounter Disp Refills Start End BETHANECHOL CHLORIDE 25 MG TABLET 90 t* 5 09/07/2018 03/06/2019 Route: ORAL Sig: Take 1 tablet by mouth three times daily. Medications Discontinued During This Encounter bethanechol (URECHOLINE) 25 mg tablet 05/01/2018 09/07/2018 Class: Historical Med Sig: Disc: Reason for discontinue is not on file. Encounter Status:Closed by BRAYAN ARITA MD on 09/07/18 CBC AND DIFFERENTIAL Collected: 08/31/2018 Status: F Source: [facility] 2:27 PM [facility] REPOSITORY TYPE CODE TESTS RESULT OUT OF REFERENCE UNITS RANGE LAB WBC 3.70-11.00 k/uL WBC 7.48 LAB RBC 3.90-5.20 m/uL RBC 4.05 LAB HGB 11.5-15.5 g/dL Hemoglobin 12.2 LAB HCT 36.0-46.0 % Hematocrit 38.3 LAB MCV 80.0-100.0 fL MCV 94.6 LAB MCH 26.0-34.0 pG MCH 30.1 LAB MCHC 30.5-36.0 g/dL MCHC 31.9 LAB RDWCV 11.5-15.0 % RDW-CV 13.8 LAB PLTCT 150-400 k/uL Platelet Count 286 LAB MPV 9.0-12.7 fL MPV 9.8 LAB ANEUT % Neut% 63.9 LAB AANEUT 1.45-7.50 k/uL Abs Neut 4.78 LAB ALYMP % Lymph% 26.5 LAB AALYMP 1.00-4.00 k/uL Abs Lymph 1.98 LAB AMONO % Larue% 6.7 LAB AAMONO <0.87 k/uL Abs Larue 0.50 LAB AEOS % Eosin% 2.4 LAB AAEOS <0.46 k/uL Abs Eosin 0.18 LAB ABASO % Baso% 0.5 LAB AABASO <0.11 k/uL Abs Baso 0.04 LAB AUNRBC 0 /100 WBC NRBCs 0.0 LAB ABNRBC <0.01 k/uL Absolute nRBC <0.01 LAB DTYP DTYPE Auto Diff Performed By: #### CBCDIF, BMP, CK, MG1, TSH #### [facility] [address] [place] [id number] BASIC METABOLIC PANL Collected: 08/31/2018 Status: F Source: [place] 2:27 PM [facility] REPOSITORY TYPE CODE TESTS RESULT OUT OF REFERENCE UNITS RANGE LAB GLU 74-99 mg/dL High Glucose 174 Result Comment: The [place] Diabetes Association (ADA) provides guidance for cutoff values for fasting glucose and random glucose. The ADA defines fasting as no caloric intake for at least 8 hours. Fas ting plasma glucose results between 100 to 125 mg/dL indicate increased risk for diabetes (prediabetes). Fasting plasma glucose results greater than or equal to 126 mg/dL meet the criteria for diagnosis of diabetes. In the absence of unequivocal hyperglycemia, results should be confirmed by repeat testing. In a patient with classic symptoms of hyperglycemia or hyperglycemic crisis, random plasma glucose results greater than or equal to 200 mg/dL meet the criteria for diagnosis of diabetes. Reference: Standards of Medical Care in Diabetes 2016, [place] Diabetes Association. Diabetes Care. 2016.39(Suppl 1). LAB BUN 7-21 mg/dL BUN 19 LAB CRET 0.58-0.96 mg/dL Creatinine 0.96 LAB NA 136-144 mmol/L Sodium 139 LAB K 3.7-5.1 mmol/L Potassium 4.2 LAB CL 97-105 mmol/L Chloride 97 LAB CO2 22-30 mmol/L CO2 29 LAB AGAP 9-18 mmol/L Anion Gap 13 LAB CA 8.5-10.2 mg/dL Calcium, Total 9.7 LAB GFRAA eGFR- Amer. >60 LAB GFRNAA . eGFR-All Other Races 58 Result Comment: eGFR (Estimated GFR) Units of measure: mL/min/1.73 meters squared eGFR is derived from the reexpressed MDRD Study equation using the following parameters: serum creatinine, age, gender and race. The creatinine assay has been calibrated to be traceable to IDMS. An eGFR <60 mL/min/1.73m2 for >3 months is consistent with chronic kidney disease. Refer to KDOQI guidelines for clinical interpretation. In patients with unstable renal function, e.g. those with acute kidney injury, the eGFR may not accurately reflect actual GFR. Performed By: #### CBCDIF, BMP, CK, MG1, TSH #### [facility] [employer] [address] [place] [address] CK Collected: 08/31/2018 Status: F Source: [facility] 2:27 PM [facility] REPOSITORY TYPE CODE TESTS RESULT OUT OF RANGE REFERENCE UNITS LAB CK 42-196 U/L CK 100 Performed By: #### CBCDIF, BMP, CK, MG1, TSH #### [facility] [employer] [address] [place] [address] MAGNESIUM Collected: 08/31/2018 Status: F Source: [place] 2:27 PM [facility] REPOSITORY TYPE CODE TESTS RESULT OUT OF REFERENCE UNITS RANGE LAB MG 1.7-2.3 mg/dL Magnesium 2.0 Performed By: #### CBCDIF, BMP, CK, MG1, TSH #### [facility] [employer] [address] [place] [address] TSH Collected: 08/31/2018 Status: F Source: [place] 2:27 PM [facility] REPOSITORY TYPE CODE TESTS RESULT OUT OF RANGE REFERENCE UNITS LAB TSH 0.400-5.500 uU/mL TSH 5.190 Performed By: #### CBCDIF, BMP, CK, MG1, TSH #### [facility] [employer] [address] [place] [address] PROGRESS Observed: 08/31/2018 Status: COMPLETED Source: [place] 1:57 PM [facility] REPOSITORY HNO ID: [id number] Author: Brayan Arita Service: (none) Author Type: Physician Type: Progress Notes Filed: 08/31/2018 2:10 PM Note Text: Patient presents with: F/U 1 month HPI: Patient presents today for office visit for follow up. Was begun on metoprolol for tremor and bp at last visit. bp is much better. Tremor is better. No further issues. Cough is better. Breathing is much better. Getting cramps all over. Does see Dr. Johnson for inflammatory arthritis. The can occur on extremities, trunk. Can see and feel muscles going into spasm. Has noted it for about six months. Sugars have been better. Admits to not drinking much water. Mostly drinks coffee. No changes in the bowels or bloody or black stools. Is on lipitor but was off of it for a while with no change . No new numbness or weakness. Also seeing neurology this month, discussed having her talk with rheum and neuro regarding cramping. MEDICATIONS: Current Outpatient Prescriptions: insulin aspart U-100 (NOVOLOG) 100 unit/mL inpn Inject 10 Units subcutaneously twice daily before meals. Lunch and dinner metFORMIN (GLUCOPHAGE) 1,000 mg tablet Take 1 tablet by mouth twice daily with meals. losartan (COZAAR) 100 mg tablet Take 1 tablet by mouth once daily. metoprolol succinate ER (TOPROL XL) 25 mg 24 hr tablet Take 1 tablet by mouth once daily. atorvastatin (LIPITOR) 20 mg tablet Take 1 tablet by mouth daily at bedtime. For cholesterol. budesonide (PULMICORT FLEXHALER) 180 mcg/actuation aepb Inhale 2 Puffs as instructed twice daily. meloxicam (MOBIC) 15 mg tablet Take 1 tablet by mouth once daily. With food. loratadine (CLARITIN) 10 mg tablet Take 1 tablet by mouth once daily. insulin glargine (LANTUS SOLOSTAR U-100 INSULIN) 100 unit/mL (3 mL) inpn Inject 38 Units subcutaneously twice daily. bethanechol (URECHOLINE) 25 mg tablet sulfaSALAzine EC (AZULFIDINE EN) [address] EC tablet pantoprazole DR (PROTONIX) 40 mg tablet Take 1 tablet by mouth once daily. blood sugar diagnostic (BLOOD GLUCOSE TEST) test strip Test blood sugar(s) 3 times daily. Dx: Type 2 DM - Controlled E11.9 Insulin: YES Blood-Glucose Meter monitoring kit Glucose Meter of Choice - Kit - Dx: Type 2 DM - Controlled E11.9 alendronate (FOSAMAX) 70 mg tablet Take 1 tablet by mouth once each week. Take with a full glass of water, on an empty stomach; do NOT lie down for 30minutes. oxybutynin (DITROPAN) 5 mg tablet Take 1 tablet by mouth once daily. fluticasone (FLONASE) 50 mcg/actuation nasal spray Use 1 Blanch in each nostril daily at bedtime. Use as directed. Hydrochlorothiazide 12.5 mg capsule TAKE ONE CAPSULE BY MOUTH ONCE DAILY COMPOUNDED PRESCRIPTION Insulin needles-1/2 cc for 100 uUse up to 4 a day fluorometholone (FML LIQUID FILM) 0.1 % ophthalmic suspension Use 2 Drops in the left eye twice daily. aspirin, enteric coated (ASPIRIN, ENTERIC COATED) 81 mg EC tablet Take 81 mg by mouth once daily. methotrexate 2.5 mg tablet Take 20 mg by mouth every Tuesday. insulin needles, DISPOSABLE, (PEN NEEDLE) 31 gauge x 5/16 ndle Use one needle per dose. 4 per day. folic acid 1 mg tablet Take 2 tablets by mouth once daily. Dr. Johnson CALCIUM CARBONATE (CALCIUM 600 ORAL) Take by mouth once daily. MULTIVITAMIN W-MINERALS/LUTEIN (CENTRUM SILVER ORAL) Take by mouth once daily. No current facility-administered medications for this visit. ALLERGIES: ALLERGIES Allergen Reactions - Jesenia Inhibitors Cough - Nsaids (Non-Steroid* GI Upset - Tape [Adhesive Tape* Other: See Comments Blisters from surgical tape PAST MEDICAL HISTORY Diagnosis Date - Allergic rhinitis, cause unspecified - Breast cancer (HCC) age 34-had lump, cancerous cells. no issues since - Diverticulosis of colon (without mention of hemorrhage) - Heme positive stool 2010 - History of cervical cancer regular Paps for life - Hyperlipidemia 2010 - Inflammatory polyarthritis (HCC) Dr. 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) - Type II or unspecified type diabetes mellitus without mention of complication, not stated as uncontrolled - Unspecified essential hypertension PAST SURGICAL HISTORY Procedure Laterality Date - APPENDECTOMY - COLONOSCOP W/ OR W/O BRSH SPEC 06/26/09 - EGD 2010 - ERCP W/O BRUSH/WASH SPECIMEN 07/23/2008 Cholangiopancreatography (ERCP) - MASTECTOMY age 34 Mastectomy - simple - REMV 2ND CATARACT,CORN-SCLER SECTN Cataract removal BILATERAL - TOTAL ABDOM HYSTERECTOMY age 27 Hysterectomy, MARQUES cervical cancer FAMILY HISTORY Problem Relation Age of Onset - None Mother - None Father - Breast Cancer Maternal Aunt - Stroke Sister - Cancer Sister - COPD Sister Social History Marital status: Spouse name: Years of education: Number of children: 2 Occupational History Occupation Employer Comment [employer] Social History Main Topics Smoking status: Former Smoker Packs/day: 0.75 Years: 30.00 Types: Cigarettes Quit date: 08/15/2000 Smokeless tobacco: Never Used Alcohol use: Yes Comment: rarely Drug use: No Sexual activity: No Reviewed current medications, allergies, past medical history, surgical history, family history and social history today. REVIEW OF SYSTEMS All other reviewed and negative other than HPI. HEALTH MAINTENANCE: Reviewed health maintenance issues today and recommended the following in detail. BP CONTROLLED (<130/80) due on 1970 PNEUMOVAX AGE 65 AND OVER WITH 5YR LOOKBACK(1) due on 2017 VITALS: BP 120/66 Pulse 84 Resp 20 Wt 82.6 kg (182 lb) BMI 33.29 kg/m? Last 4 Encounter Wt Readings: Date: Wt: 08/31/2018 82.6 kg (182 lb) 08/02/2018 85.3 kg (188 lb) 08/02/2018 83.9 kg (185 lb) 07/27/2018 84.4 kg (186 lb) PHYSICAL EXAMINATION: General appearance: Well appearing, alert, in no acute distress, well-hydrated, well nourished. Skin: Skin color, texture, turgor normal, no suspicious rashes or lesions Head: Normocephalic, no masses, lesions, tenderness or abnormalitiesultation. No wheezing, rhonchi, rales} Heart: RRR without murmur, gallop, or rubs. No ectopy Abdomen: Normal abdominal exam, Abdomen soft, non-tender. Bowel sounds normal. No masses, organomegaly Extremities: No deformities, edema, skin discoloration, clubbing or cyanosis. Good capillary refill. Musculoskeletal: No joint swelling, deformity, or tenderness Peripheral pulses: Normal Neuro: Gait normal. Reflexes normal and symmetric. Sensation grossly intact. ASSESSMENT/PLAN: 1. Myalgia - ICD9: 729.1, ICD10: M79.10 (primary diagnosis) - discuss symptoms with rheum and neurology. Push fluids. Continue meds. Call if any issues. Check labs. - CBC + DIFF - BASIC METABOLIC PNL - MAGNESIUM BLD - CK CREATINE KINASE - TSH BLD 2. Tremor - ICD9: 781.0, ICD10: R25.1 - CBC + DIFF - BASIC METABOLIC PNL - MAGNESIUM BLD - CK CREATINE KINASE - TSH BLD 3. Essential hypertension - ICD9: 401.9, ICD10: I10 - good control - Continue current medication(s) - Goal of BP <130/80 - CBC + DIFF - BASIC METABOLIC PNL - MAGNESIUM BLD - CK CREATINE KINASE - TSH BLD Baryan Arita MD CNOV Observed: 08/31/2018 Status: COMPLETED Source: [place] 1:40 PM [facility] REPOSITORY Office Visit (FAMPWS) MANISHA KEITH ([id number]) 1950 F Date Time Provider Department 08/31/18 1:40 PM BRAYAN ARITA FAMPWS During your visit today, we recorded the following information about you: Pulse Respiration Blood pressure Weight 84/minute 20/minute 120/66 82.6 kg Kerry Spivey Ma 08/31/2018 2:00 PM Signed Patient taking Metoprolol 25 mg daily. Denies any side effects. Tremors have improved. Brayan Arita MD 08/31/2018 2:10 PM Signed Patient presents with: F/U 1 month HPI: Patient presents today for office visit for follow up. Was begun on metoprolol for tremor and bp at last visit. bp is much better. Tremor is better. No further issues. Cough is better. Breathing is much better. Getting cramps all over. Does see Dr. Johnson for inflammatory arthritis. The can occur on extremities, trunk. Can see and feel muscles going into spasm. Has noted it for about six months. Sugars have been better. Admits to not drinking much water. Mostly drinks coffee. No changes in the bowels or bloody or black stools. Is on lipitor but was off of it for a while with no change . No new numbness or weakness. Also seeing neurology this month, discussed having her talk with rheum and neuro regarding cramping. MEDICATIONS: Current Outpatient Prescriptions: insulin aspart U-100 (NOVOLOG) 100 unit/mL inpn Inject 10 Units subcutaneously twice daily before meals. Lunch and dinner metFORMIN (GLUCOPHAGE) 1,000 mg tablet Take 1 tablet by mouth twice daily with meals. losartan (COZAAR) 100 mg tablet Take 1 tablet by mouth once daily. metoprolol succinate ER (TOPROL XL) 25 mg 24 hr tablet Take 1 tablet by mouth once daily. atorvastatin (LIPITOR) 20 mg tablet Take 1 tablet by mouth daily at bedtime. For cholesterol. budesonide (PULMICORT FLEXHALER) 180 mcg/actuation aepb Inhale 2 Puffs as instructed twice daily. meloxicam (MOBIC) 15 mg tablet Take 1 tablet by mouth once daily. With food. loratadine (CLARITIN) 10 mg tablet Take 1 tablet by mouth once daily. insulin glargine (LANTUS SOLOSTAR U-100 INSULIN) 100 unit/mL (3 mL) inpn Inject 38 Units subcutaneously twice daily. bethanechol (URECHOLINE) 25 mg tablet sulfaSALAzine EC (AZULFIDINE EN) 500 mg EC tablet pantoprazole DR (PROTONIX) 40 mg tablet Take 1 tablet by mouth once daily. blood sugar diagnostic (BLOOD GLUCOSE TEST) test strip Test blood sugar(s) 3 times daily. Dx: Type 2 DM - Controlled E11.9 Insulin: YES Blood-Glucose Meter monitoring kit Glucose Meter of Choice - Kit - Dx: Type 2 DM - Controlled E11.9 alendronate (FOSAMAX) 70 mg tablet Take 1 tablet by mouth once each week. Take with a full glass of water, on an empty stomach; do NOT lie down for 30minutes. oxybutynin (DITROPAN) 5 mg tablet Take 1 tablet by mouth once daily. fluticasone (FLONASE) 50 mcg/actuation nasal spray Use 1 Blanch in each nostril daily at bedtime. Use as directed. Hydrochlorothiazide 12.5 mg capsule TAKE ONE CAPSULE BY MOUTH ONCE DAILY COMPOUNDED PRESCRIPTION Insulin needles-1/2 cc for 100 uUse up to 4 a day fluorometholone (FML LIQUID FILM) 0.1 % ophthalmic suspension Use 2 Drops in the left eye twice daily. aspirin, enteric coated (ASPIRIN, ENTERIC COATED) 81 mg EC tablet Take 81 mg by mouth once daily. methotrexate 2.5 mg tablet Take 20 mg by mouth every Tuesday. insulin needles, DISPOSABLE, (PEN NEEDLE) 31 gauge x 5/16 ndle Use one needle per dose. 4 per day. folic acid 1 mg tablet Take 2 tablets by mouth once daily. Dr. Johnson CALCIUM CARBONATE (CALCIUM 600 ORAL) Take by mouth once daily. MULTIVITAMIN W-MINERALS/LUTEIN (CENTRUM SILVER ORAL) Take by mouth once daily. No current facility-administered medications for this visit. ALLERGIES: ALLERGIES Allergen Reactions - Jesenia Inhibitors Cough - Nsaids (Non-Steroid* GI Upset - Tape [Adhesive Tape* Other: See Comments Blisters from surgical tape PAST MEDICAL HISTORY Diagnosis Date - Allergic rhinitis, cause unspecified - Breast cancer (HCC) age 34-had lump, cancerous cells. no issues since - Diverticulosis of colon (without mention of hemorrhage) - Heme positive stool 2010 - History of cervical cancer regular Paps for life - Hyperlipidemia 2010 - Inflammatory polyarthritis (HCC) Dr. 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) - Type II or unspecified type diabetes mellitus without mention of complication, not stated as uncontrolled - Unspecified essential hypertension PAST SURGICAL HISTORY Procedure Laterality Date - APPENDECTOMY - COLONOSCOP W/ OR W/O BRSH SPEC 06/26/09 - EGD 2010 - ERCP W/O BRUSH/WASH SPECIMEN 07/23/2008 Cholangiopancreatography (ERCP) - MASTECTOMY age 34 Mastectomy - simple - REMV 2ND CATARACT,CORN-SCLER SECTN Cataract removal BILATERAL - TOTAL ABDOM HYSTERECTOMY age 27 Hysterectomy, MARQUES cervical cancer FAMILY HISTORY Problem Relation Age of Onset - None Mother - None Father - Breast Cancer Maternal Aunt - Stroke Sister - Cancer Sister - COPD Sister Social History Marital status: Spouse name: Years of education: Number of children: 2 Occupational History Occupation Employer Comment [employer] Social History Main Topics Smoking status: Former Smoker Packs/day: 0.75 Years: 30.00 Types: Cigarettes Quit date: 08/15/2000 Smokeless tobacco: Never Used Alcohol use: Yes Comment: rarely Drug use: No Sexual activity: No Reviewed current medications, allergies, past medical history, surgical history, family history and social history today. REVIEW OF SYSTEMS All other reviewed and negative other than HPI. HEALTH MAINTENANCE: Reviewed health maintenance issues today and recommended the following in detail. BP CONTROLLED (<130/80) due on 1970 PNEUMOVAX AGE 65 AND OVER WITH 5YR LOOKBACK(1) due on 2017 VITALS: BP 120/66 Pulse 84 Resp 20 Wt 82.6 kg (182 lb) BMI 33.29 kg/m? Last 4 Encounter Wt Readings: Date: Wt: 08/31/2018 82.6 kg (182 lb) 08/02/2018 85.3 kg (188 lb) 08/02/2018 83.9 kg (185 lb) 07/27/2018 84.4 kg (186 lb) PHYSICAL EXAMINATION: General appearance: Well appearing, alert, in no acute distress, well-hydrated, well nourished. Skin: Skin color, texture, turgor normal, no suspicious rashes or lesions Head: Normocephalic, no masses, lesions, tenderness or abnormalitiesultation. No wheezing, rhonchi, rales} Heart: RRR without murmur, gallop, or rubs. No ectopy Abdomen: Normal abdominal exam, Abdomen soft, non-tender. Bowel sounds normal. No masses, organomegaly Extremities: No deformities, edema, skin discoloration, clubbing or cyanosis. Good capillary refill. Musculoskeletal: No joint swelling, deformity, or tenderness Peripheral pulses: Normal Neuro: Gait normal. Reflexes normal and symmetric. Sensation grossly intact. ASSESSMENT/PLAN: 1. Myalgia - ICD9: 729.1, ICD10: M79.10 (primary diagnosis) - discuss symptoms with rheum and neurology. Push fluids. Continue meds. Call if any issues. Check labs. - CBC + DIFF - BASIC METABOLIC PNL - MAGNESIUM BLD - CK CREATINE KINASE - TSH BLD 2. Tremor - ICD9: 781.0, ICD10: R25.1 - CBC + DIFF - BASIC METABOLIC PNL - MAGNESIUM BLD - CK CREATINE KINASE - TSH BLD 3. Essential hypertension - ICD9: 401.9, ICD10: I10 - good control - Continue current medication(s) - Goal of BP <130/80 - CBC + DIFF - BASIC METABOLIC PNL - MAGNESIUM BLD - CK CREATINE KINASE - TSH BLD Brayan Arita MD Referring Provider: BRAYAN ARITA [[id number]] Allergies As of Date: 08/31/2018 Noted Allergy Reaction JESENIA INHIBITORS 03/27/2014 3 - Cough NSAIDS (NON-STEROIDAL ANTI-INFLAM*05/09/2009 8 - GI Upset TAPE (ADHESIVE TAPE (ROSINS)) 10/26/2016 14 - Other: See Comments Comments: Blisters from surgical tape Date Reviewed: 08/02/2018 Reviewed by: Macarena Lepe LPN - Fully Assessed Reason for Visit: F/U 1 month [1175] Primary Visit Diagnosis:Myalgia [M79.10] Other Visit Diagnoses:Tremor [R25.1] Essential hypertension [I10] Order(s):CBC + DIFF [SQCBCDIF] Order #: [id number] FUTURE BASIC METABOLIC PNL [SQBMP] Order #: [id number] FUTURE MAGNESIUM BLD [SQMG1] Order #: [id number] FUTURE CK CREATINE KINASE [SQCK] Order #: [id number] FUTURE TSH BLD [SQTSH] Order #: [id number] FUTURE Prescriptions as of 08/31/2018 Sig: INSULIN ASPART U-100 100 UNI* Inject 10 Units subcutaneousl* METFORMIN 1,000 MG TABLET Take 1 tablet by mouth twice * LOSARTAN 100 MG TABLET Take 1 tablet by mouth once d* METOPROLOL SUCCINATE ER 25 MG* Take 1 tablet by mouth once d* ATORVASTATIN 20 MG TABLET Take 1 tablet by mouth daily * BUDESONIDE 180 MCG/ACTUATION * Inhale 2 Puffs as instructed * MELOXICAM 15 MG TABLET Take 1 tablet by mouth once d* LORATADINE 10 MG TABLET Take 1 tablet by mouth once d* INSULIN GLARGINE (U-100) 100 * Inject 38 Units subcutaneousl* BETHANECHOL CHLORIDE 25 MG TA* SULFASALAZINE 500 MG TABLET,D* PANTOPRAZOLE 40 MG TABLET,DEL* Take 1 tablet by mouth once d* BLOOD SUGAR DIAGNOSTIC STRIPS Test blood sugar(s) 3 times d* BLOOD-GLUCOSE METER KIT Glucose Meter of Choice - Kit* ALENDRONATE 70 MG TABLET Take 1 tablet by mouth once e* OXYBUTYNIN CHLORIDE 5 MG TABL* Take 1 tablet by mouth once d* FLUTICASONE 50 MCG/ACTUATION * Use 1 Blanch in each nostril d* HYDROCHLOROTHIAZIDE 12.5 MG C* TAKE ONE CAPSULE BY MOUTH ONC* COMPOUNDED PRESCRIPTION Insulin needles-1/2 cc for 10* FLUOROMETHOLONE 0.1 % EYE MARINE* Use 2 Drops in the left eye t* ASPIRIN 81 MG TABLET,DELAYED * Take 81 mg by mouth once burt* METHOTREXATE SODIUM 2.5 MG TA* Take 20 mg by mouth every Sun* PEN NEEDLE, DIABETIC 31 GAUGE* Use one needle per dose. 4 pe* FOLIC ACID 1 MG TABLET Take 2 tablets by mouth once * * CALCIUM 600 ORAL Take by mouth once daily. * CENTRUM SILVER ORAL Take by mouth once daily. Problem List As Of Date 08/31/2018 Noted Resolved BENIGN HYPERTENSION [I10] INVALID FOR*09/01/2007 Hyperlipidemia [E78.5] INVALID FOR* LOC PRIM OSTEOART-PELVIS [M16.10] INVALID FOR*06/04/2006 Allergic rhinitis [J30.9] INVALID FOR* Diabetes (HCC) [E11.9] INVALID FOR*06/27/2015 Unspecified sleep apnea [G47.30] INVALID FOR*12/07/2013 More... Osteoarthritis [M19.90] INVALID FOR* Irritable bowel syndrome [K58.9] INVALID FOR*11/25/2016 Dysuria [R30.0] INVALID FOR*05/25/2016 Unspecified sinusitis (chronic) [J32.9] INVALID FOR*05/25/2016 Other specified disorder of bladder [596.8] INVALID FOR*11/25/2016 ASYMPTOMATIC VARICOSE VEINS [I83.90] INVALID FOR* REFLUX ESOPHAGITIS [K21.0] ESOPHAGITIS, UNSPECIFIED [K20.9] INVALID FOR*07/30/2008 Malignant neoplasm of female breast (HCC) [C50.*INVALID FOR*05/25/2016 IBS (Irritable Bowel Syndrome) [K58.9] Heme positive stool [R19.5] 11/22/2013 Routine general medical examination at a health*INVALID FOR*11/22/2013 HTN (hypertension) [I10] INVALID FOR* Urge incontinence [N39.41] INVALID FOR* Inflammatory polyarthritis (HCC) [M06.4] More... Type 2 diabetes mellitus with diabetic retinopa*INVALID FOR* History of cervical cancer [Z85.41] More... History of breast cancer [Z85.3] INVALID FOR* H/O left mastectomy [Z90.12] INVALID FOR* Obesity, Class I, BMI 30-34.9 [E66.9] INVALID FOR* Visit Notes: >> Kerry Spivey Ma Alla Aug 31, 2018 1:48 PM Status: Signed Patient taking Metoprolol 25 mg daily. Denies any side effects. Tremors have improved. Medications Discontinued During This Encounter gabapentin (NEURONTIN) 300 mg capsule 04/20/2018 08/31/2018 Class: Med Update Route: ORAL Sig: Take 1 capsule by mouth once daily for 91 days. Disc: Reason for discontinue is not on file. Disposition: Return in about 2 months (around 10/29/2018). Follow-up and Disposition History Recorded Encounter Status:Closed by BRAYAN ARITA MD on 08/31/18 PROGRESS Observed: 08/29/2018 Status: COMPLETED Source: [place] 8:30 AM [facility] REPOSITORY [facility] ID: [id number] Author: Vanessa Lorenzo (Pharmacist) Service: (none) Author Type: Pharmacist Type: Progress Notes Filed: 08/29/2018 12:27 PM Note Text: Patient consents to pharmacy collaborative practice agreement. REASON FOR CONSULT: DM? GOALS: A1c <?7% CONSULTING PROVIDER: Dr. Arita?? Date of Consult: 04/20/18 Manisha Keith is a 68 year old female was last seen in [facility]?by PCP, Dr. Brayan Arita MD on 07/27 Patient is presenting today for f/u pharmacotherapy management appointment for DM. INTERIM HISTORY: New inhaler and blood pressure meds ? Works third shift Takes Lantus at 730am Eats breakfast Sleeps 730a-3p Takes all pills around 5-6pm Eats dinner At work eats lunch around 11pm-12am Current DM Medications: Metformin 1,000mg BID - taking once daily Lantus 38 units BID - (0.9 units/kg) morning when gets home and in afternoon before work Novolog 5 units BID lunch/supper Current HTN Medications: Losartan 100mg once daily HCTZ 12.5mg once daily Metoprolol succinate 25mg daily Preventative Medications: ? On JESENIA/ARB: Yes ? On Statin: No ? On ASA: Yes ROS: ? Patient denies CP, SOB, PLUNKETT, blurred vision, dizziness or lightheadedness ? Patient denies symptoms of hypoglycemia (sweating, anxiety, palpitations, hunger, and tremor) ? Patient denies symptoms of hyperglycemia (polyuria, polydipsia, polyphagia) ? Patient denies potential medication adverse effects DIET/EXERCISE/SOCIAL Hx: ? Breakfast:?after work 730am - cereal and banana before going to bed ? Lunch:?after 11pm - sandwich or salad ? Dinner:?before work 5pm - soup and sandwich or something quick, microwave meals (biggest) ? MEDICATIONS: ? Pill bottles are not?present. ? Adherence: denies?missed doses. ? Pharmacy: [facility]? Rx coverage: MMO ? Affordability: no issues ? Diabetes supplies: One Touch Ultra ? 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 no issues since - Diverticulosis of colon (without mention of hemorrhage) - Heme positive stool 2010 - History of cervical cancer regular Paps for life - Hyperlipidemia 2010 - Inflammatory polyarthritis (HCC) Dr. 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 Take with a full glass of water, on an empty stomach; do NOT lie down for 30minutes. aspirin, enteric coated (ASPIRIN, ENTERIC COATED) 81 mg EC tablet Take 81 mg by mouth once daily. bethanechol (URECHOLINE) 25 mg tablet None Entered blood sugar diagnostic (BLOOD GLUCOSE TEST) test strip Test blood sugar(s) 3 times daily. Dx: Type 2 DM - Controlled E11.9 Insulin: YES Blood-Glucose Meter monitoring kit Glucose Meter of Choice - Kit - Dx: Type 2 DM - Controlled E11.9 CALCIUM CARBONATE (CALCIUM 600 ORAL) Take by mouth once daily. COMPOUNDED PRESCRIPTION Insulin needles-1/2 cc for 100 u Use up to 4 a day fluorometholone (FML LIQUID FILM) 0.1 % ophthalmic suspension Use 2 Drops in the left eye twice daily. fluticasone (FLONASE) 50 mcg/actuation nasal spray Use 1 Blanch in each nostril daily at bedtime. Use as directed. folic acid 1 mg tablet Take 2 tablets by mouth once daily. Dr. Johnson gabapentin (NEURONTIN) 300 mg capsule Take 1 capsule by mouth once daily for 91 days. Hydrochlorothiazide 12.5 mg capsule TAKE ONE CAPSULE BY MOUTH ONCE DAILY insulin aspart U-100 (NOVOLOG) 100 unit/mL inpn Inject 10 Units subcutaneously daily with dinner. insulin glargine (LANTUS SOLOSTAR U-100 INSULIN) 100 unit/mL (3 mL) inpn Inject 38 Units subcutaneously twice daily. insulin needles, DISPOSABLE, (PEN NEEDLE) 31 gauge x 5/16 ndle Use one needle per dose. 4 per day. loratadine (CLARITIN) 10 mg tablet Take 1 tablet by mouth once daily. losartan (COZAAR) 100 mg tablet Take 1 tablet by mouth once daily. meloxicam (MOBIC) 15 mg tablet Take 1 tablet by mouth once daily. With food. metFORMIN (GLUCOPHAGE) 1,000 mg tablet Take 1 tablet by mouth twice daily with meals. methotrexate 2.5 mg tablet Take 20 mg by mouth every Tuesday. MULTIVITAMIN W-MINERALS/LUTEIN (CENTRUM SILVER ORAL) Take by mouth once daily. oxybutynin (DITROPAN) 5 mg tablet Take 1 tablet by mouth once daily. pantoprazole DR (PROTONIX) 40 mg tablet Take 1 tablet by mouth once daily. sulfaSALAzine EC (AZULFIDINE EN) 500 mg EC tablet None Entered Rx meds not listed in EPIC: none OTCs: none Herbals: none GLYCEMIC CONTROL: ? Glucometer present at visit: No ? SMBG?s: Date Fasting AM 2 hr PP Before Lunch 2 hr PP Before Dinner 2 hr PP Bedtime 08/29 276 14 405 197 13 183 12 210 278 11 372 10 194 9 214 8 168 7 247 6 354 5 131 74 4 146 3 288 ? Hypoglycemia: no 08/29/18 0844 BP: 141/69 Pulse: 73 Last 4 Encounter BP Readings: Date: BP: 08/02/2018 142/60 07/27/2018 132/82 06/19/2018 134/78 06/13/2018 133/73] Wt: 84.6 kg (186 lb 9.6 oz) BMI: 34.13 kg/(m2) LABS Lab Results Component Value Date HBA1C 7.5 07/10/2018 HBA1C 8.9 04/19/2018 HBA1C 8.8 01/10/2018 CMP: Glucose 96 07/10/2018 BUN 14 07/10/2018 Creatinine, Whole Blood (iSTAT) 0.86 07/10/2018 Sodium 140 07/10/2018 Potassium 4.0 07/10/2018 Chloride 103 07/10/2018 CO2 26 07/10/2018 Protein, Total 7.3 07/10/2018 Albumin 3.8 07/10/2018 Calcium 9.4 07/10/2018 Alkaline Phosphatase 47 07/10/2018 Bilirubin, Total 0.3 07/10/2018 AST 19 07/10/2018 ALT 16 07/10/2018 Estimated Creatinine Clearance: 65.2 mL/min (based on SCr of 0.86 mg/dL). Last Lipid Panel Lab Results Component Value Date CHOL 169 01/10/2018 Lab Results Component Value Date HDL 72 01/10/2018 Lab Results Component Value Date LDL 80 01/10/2018 Lab Results Component Value Date TG 84 01/10/2018 Albumin/Creat Ratio (mg/g) Date Value 01/10/2018 Not calculated PHARMACOTHERAPY ASSESSMENT/PLAN: 1. 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, with long-term current use of insulin, macular edema presence unspecified, unspecified laterality, unspecified proliferative retinopathy* (HCC) - ICD9: 250.50, 362.02, V58.67, ICD10: E11.3599, Z79.4 (primary diagnosis) A1c goal <?7%, patient is not?at goal (7.5% on 07/10). BGs not?at goal taking less than prescribed amount of metformin, start taking BID. Increase prandial insulin. Renal fxn and LFTs WNL?and appropriate for continued therapy ? INCREASE Novolog to 10 units BID lunch/supper ? CONTINUE Lantus 38 units BID and metformin 1,000mg BID ? Instructed patient to continue checking FBGs and PPBGs 2- 3x daily ? Discussed treatment of hypoglycemia with rule of 15 2. Mixed hyperlipidemia - ICD9: 272.2, ICD10: E78.2 Pt is not prescribed statin therapy (indicated for high?intensity d/t DM?and ASCVD risk score 14%). Will discuss at future visits Patient is scheduled to see PCP 08/31 Patient to return to clinic for PharmD f/u on 10/03 Patient verbalized understanding of instructions. Vanessa Lorenzo, Marco A, BCPS CNOV Observed: 08/29/2018 Status: COMPLETED Source: [place] 8:30 AM [facility] REPOSITORY Office Visit (PHMEWO) MANISHA KEITH ([id number]) 1950 F Date Time Provider Department 08/29/18 8:30 AM MAURA (PHARMACIST)VANESSA During your visit today, we recorded the following information about you: Pulse Blood pressure 73/minute 141/69 L[place] ECHEVARRIA 08/29/2018 12:27 PM Signed Patient consents to pharmacy collaborative practice agreement. REASON FOR CONSULT: DM? GOALS: A1c <?7% CONSULTING PROVIDER: Dr. Arita?? Date of Consult: 04/20/18 Manisha Keith is a 68 year old female was last seen in [facility]?by PCP, Dr. Brayan Arita MD on 07/27 Patient is presenting today for f/u pharmacotherapy management appointment for DM. INTERIM HISTORY: New inhaler and blood pressure meds ? Works third shift Takes Lantus at 730am Eats breakfast Sleeps 730a-3p Takes all pills around 5-6pm Eats dinner At work eats lunch around 11pm-12am Current DM Medications: Metformin 1,000mg BID - taking once daily Lantus 38 units BID - (0.9 units/kg) morning when gets home and in afternoon before work Novolog 5 units BID lunch/supper Current HTN Medications: Losartan 100mg once daily HCTZ 12.5mg once daily Metoprolol succinate 25mg daily Preventative Medications: ? On JESENIA/ARB: Yes ? On Statin: No ? On ASA: Yes ROS: ? Patient denies CP, SOB, PLUNKETT, blurred vision, dizziness or lightheadedness ? Patient denies symptoms of hypoglycemia (sweating, anxiety, palpitations, hunger, and tremor) ? Patient denies symptoms of hyperglycemia (polyuria, polydipsia, polyphagia) ? Patient denies potential medication adverse effects DIET/EXERCISE/SOCIAL Hx: ? Breakfast:?after work 730am - cereal and banana before going to bed ? Lunch:?after 11pm - sandwich or salad ? Dinner:?before work 5pm - soup and sandwich or something quick, microwave meals (biggest) ? MEDICATIONS: ? Pill bottles are not?present. ? Adherence: denies?missed doses. ? Pharmacy: [facility]? Rx coverage: MMO ? Affordability: no issues ? Diabetes supplies: One Touch Ultra ? 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 no issues since - Diverticulosis of colon (without mention of hemorrhage) - Heme positive stool 2010 - History of cervical cancer regular Paps for life - Hyperlipidemia 2011 - Inflammatory polyarthritis (HCC) Dr. 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 Take with a full glass of water, on an empty stomach; do NOT lie down for 30minutes. aspirin, enteric coated (ASPIRIN, ENTERIC COATED) 81 mg EC tablet Take 81 mg by mouth once daily. bethanechol (URECHOLINE) 25 mg tablet None Entered blood sugar diagnostic (BLOOD GLUCOSE TEST) test strip Test blood sugar(s) 3 times daily. Dx: Type 2 DM - Controlled E11.9 Insulin: YES Blood-Glucose Meter monitoring kit Glucose Meter of Choice - Kit - Dx: Type 2 DM - Controlled E11.9 CALCIUM CARBONATE (CALCIUM 600 ORAL) Take by mouth once daily. COMPOUNDED PRESCRIPTION Insulin needles-1/2 cc for 100 u Use up to 4 a day fluorometholone (FML LIQUID FILM) 0.1 % ophthalmic suspension Use 2 Drops in the left eye twice daily. fluticasone (FLONASE) 50 mcg/actuation nasal spray Use 1 Blanch in each nostril daily at bedtime. Use as directed. folic acid 1 mg tablet Take 2 tablets by mouth once daily. Dr. Johnson gabapentin (NEURONTIN) 300 mg capsule Take 1 capsule by mouth once daily for 91 days. Hydrochlorothiazide 12.5 mg capsule TAKE ONE CAPSULE BY MOUTH ONCE DAILY insulin aspart U-100 (NOVOLOG) 100 unit/mL inpn Inject 10 Units subcutaneously daily with dinner. insulin glargine (LANTUS SOLOSTAR U-100 INSULIN) 100 unit/mL (3 mL) inpn Inject 38 Units subcutaneously twice daily. insulin needles, DISPOSABLE, (PEN NEEDLE) 31 gauge x 5/16 ndle Use one needle per dose. 4 per day. loratadine (CLARITIN) 10 mg tablet Take 1 tablet by mouth once daily. losartan (COZAAR) 100 mg tablet Take 1 tablet by mouth once daily. meloxicam (MOBIC) 15 mg tablet Take 1 tablet by mouth once daily. With food. metFORMIN (GLUCOPHAGE) 1,000 mg tablet Take 1 tablet by mouth twice daily with meals. methotrexate 2.5 mg tablet Take 20 mg by mouth every Tuesday. MULTIVITAMIN W-MINERALS/LUTEIN (CENTRUM SILVER ORAL) Take by mouth once daily. oxybutynin (DITROPAN) 5 mg tablet Take 1 tablet by mouth once daily. pantoprazole DR (PROTONIX) 40 mg tablet Take 1 tablet by mouth once daily. sulfaSALAzine EC (AZULFIDINE EN) 500 mg EC tablet None Entered Rx meds not listed in EPIC: none OTCs: none Herbals: none GLYCEMIC CONTROL: ? Glucometer present at visit: No ? SMBG?s: Date Fasting AM 2 hr PP Before Lunch 2 hr PP Before Dinner 2 hr PP Bedtime 08/29 276 14 405 197 13 183 12 210 278 11 372 10 194 9 214 8 168 7 247 6 354 5 131 74 4 146 3 288 ? Hypoglycemia: no 08/29/18 0844 BP: 141/69 Pulse: 73 Last 4 Encounter BP Readings: Date: BP: 08/02/2018 142/60 07/27/2018 132/82 06/19/2018 134/78 06/13/2018 133/73] Wt: 84.6 kg (186 lb 9.6 oz) BMI: 34.13 kg/(m2) LABS Lab Results Component Value Date HBA1C 7.5 07/10/2018 HBA1C 8.9 04/19/2018 HBA1C 8.8 01/10/2018 CMP: Glucose 96 07/10/2018 BUN 14 07/10/2018 Creatinine, Whole Blood (iSTAT) 0.86 07/10/2018 Sodium 140 07/10/2018 Potassium 4.0 07/10/2018 Chloride 103 07/10/2018 CO2 26 07/10/2018 Protein, Total 7.3 07/10/2018 Albumin 3.8 07/10/2018 Calcium 9.4 07/10/2018 Alkaline Phosphatase 47 07/10/2018 Bilirubin, Total 0.3 07/10/2018 AST 19 07/10/2018 ALT 16 07/10/2018 Estimated Creatinine Clearance: 65.2 mL/min (based on SCr of 0.86 mg/dL). Last Lipid Panel Lab Results Component Value Date CHOL 169 01/10/2018 Lab Results Component Value Date HDL 72 01/10/2018 Lab Results Component Value Date LDL 80 01/10/2018 Lab Results Component Value Date TG 84 01/10/2018 Albumin/Creat Ratio (mg/g) Date Value 01/10/2018 Not calculated PHARMACOTHERAPY ASSESSMENT/PLAN: 1. 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, with long-term current use of insulin, macular edema presence unspecified, unspecified laterality, unspecified proliferative retinopathy* (HCC) - ICD9: 250.50, 362.02, V58.67, ICD10: E11.3599, Z79.4 (primary diagnosis) A1c goal <?7%, patient is not?at goal (7.5% on 07/10). BGs not?at goal taking less than prescribed amount of metformin, start taking BID. Increase prandial insulin. Renal fxn and LFTs WNL?and appropriate for continued therapy ? INCREASE Novolog to 10 units BID lunch/supper ? CONTINUE Lantus 38 units BID and metformin 1,000mg BID ? Instructed patient to continue checking FBGs and PPBGs 2- 3x daily ? Discussed treatment of hypoglycemia with rule of 15 2. Mixed hyperlipidemia - ICD9: 272.2, ICD10: E78.2 Pt is not prescribed statin therapy (indicated for high?intensity d/t DM?and ASCVD risk score 14%). Will discuss at future visits Patient is scheduled to see PCP 08/31 Patient to return to clinic for PharmD f/u on 10/03 Patient verbalized understanding of instructions. Vanessa Lorenzo, PharmD, BCPS Referring Provider: SELF [[id number]] Allergies As of Date: 08/29/2018 Noted Allergy Reaction JESENIA INHIBITORS 03/27/2014 3 - Cough NSAIDS (NON-STEROIDAL ANTI-INFLAM*05/09/2009 8 - GI Upset TAPE (ADHESIVE TAPE (ROSINS)) 10/26/2016 14 - Other: See Comments Comments: Blisters from surgical tape Date Reviewed: 08/02/2018 Reviewed by: Macarena Lepe LPN - Fully Assessed Reason for Visit: Allied Health Visit [5] Cmt: DM Primary Visit Diagnosis: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, with long-term current use of insulin, macular edema presence unspecified, unspecified laterality, unspecified proliferative retinopathy* ([facility]) [E11.3599, Z79.4] Other Visit Diagnosis:Essential hypertension [I10] Order(s):insulin aspart U-100 (NOVOLOG) 100 unit/mL inpnInject 10 Units subcutaneously twice daily before meals. Lunch and dinnerDisp: 5 PenRfl: 5 metFORMIN (GLUCOPHAGE) 1,000 mg tabletTake 1 tablet by mouth twice daily with meals.Disp: 60 tabletRfl: 3 losartan (COZAAR) 100 mg tabletTake 1 tablet by mouth once daily.Disp: 30 tabletRfl: 5 Prescriptions as of 08/29/2018 Sig: INSULIN ASPART U-100 100 UNI* Inject 10 Units subcutaneousl* METFORMIN 1,000 MG TABLET Take 1 tablet by mouth twice * LOSARTAN 100 MG TABLET Take 1 tablet by mouth once d* METOPROLOL SUCCINATE ER 25 MG* Take 1 tablet by mouth once d* ATORVASTATIN 20 MG TABLET Take 1 tablet by mouth daily * BUDESONIDE 180 MCG/ACTUATION * Inhale 2 Puffs as instructed * MELOXICAM 15 MG TABLET Take 1 tablet by mouth once d* LORATADINE 10 MG TABLET Take 1 tablet by mouth once d* INSULIN GLARGINE (U-100) 100 * Inject 38 Units subcutaneousl* BETHANECHOL CHLORIDE 25 MG TA* SULFASALAZINE 500 MG TABLET,D* PANTOPRAZOLE 40 MG TABLET,DEL* Take 1 tablet by mouth once d* GABAPENTIN 300 MG CAPSULE Take 1 capsule by mouth once * BLOOD SUGAR DIAGNOSTIC STRIPS Test blood sugar(s) 3 times d* BLOOD-GLUCOSE METER KIT Glucose Meter of Choice - Kit* ALENDRONATE 70 MG TABLET Take 1 tablet by mouth once e* OXYBUTYNIN CHLORIDE 5 MG TABL* Take 1 tablet by mouth once d* FLUTICASONE 50 MCG/ACTUATION * Use 1 Blanch in each nostril d* HYDROCHLOROTHIAZIDE 12.5 MG C* TAKE ONE CAPSULE BY MOUTH ONC* COMPOUNDED PRESCRIPTION Insulin needles-1/2 cc for 10* FLUOROMETHOLONE 0.1 % EYE MARINE* Use 2 Drops in the left eye t* ASPIRIN 81 MG TABLET,DELAYED * Take 81 mg by mouth once burt* METHOTREXATE SODIUM 2.5 MG TA* Take 20 mg by mouth every Sun* PEN NEEDLE, DIABETIC 31 GAUGE* Use one needle per dose. 4 pe* FOLIC ACID 1 MG TABLET Take 2 tablets by mouth once * * CALCIUM 600 ORAL Take by mouth once daily. * CENTRUM SILVER ORAL Take by mouth once daily. Problem List As Of Date 08/29/2018 Noted Resolved BENIGN HYPERTENSION [I10] INVALID FOR*09/01/2007 Hyperlipidemia [E78.5] INVALID FOR* LOC PRIM OSTEOART-PELVIS [M16.10] INVALID FOR*06/04/2006 Allergic rhinitis [J30.9] INVALID FOR* Diabetes (HCC) [E11.9] INVALID FOR*06/27/2015 Unspecified sleep apnea [G47.30] INVALID FOR*12/07/2013 More... Osteoarthritis [M19.90] INVALID FOR* Irritable bowel syndrome [K58.9] INVALID FOR*11/25/2016 Dysuria [R30.0] INVALID FOR*05/25/2016 Unspecified sinusitis (chronic) [J32.9] INVALID FOR*05/25/2016 Other specified disorder of bladder [596.8] INVALID FOR*11/25/2016 ASYMPTOMATIC VARICOSE VEINS [I83.90] INVALID FOR* REFLUX ESOPHAGITIS [K21.0] ESOPHAGITIS, UNSPECIFIED [K20.9] INVALID FOR*07/30/2008 Malignant neoplasm of female breast (HCC) [C50.*INVALID FOR*05/25/2016 IBS (Irritable Bowel Syndrome) [K58.9] Heme positive stool [R19.5] 11/22/2013 Routine general medical examination at a [facility]*INVALID FOR*11/22/2013 HTN (hypertension) [I10] INVALID FOR* Urge incontinence [N39.41] INVALID FOR* Inflammatory polyarthritis (HCC) [M06.4] More... Type 2 diabetes mellitus with diabetic retinopa*INVALID FOR* History of cervical cancer [Z85.41] More... History of breast cancer [Z85.3] INVALID FOR* H/O left mastectomy [Z90.12] INVALID FOR* Obesity, Class I, BMI 30-34.9 [E66.9] INVALID FOR* Prescriptions ordered this encounter Disp Refills Start End INSULIN ASPART U-100 100 UNIT/ML TEJADA* 5 Pen 5 08/29/2018 Route: SUBCUTANEOUS Sig: Inject 10 Units subcutaneously twice daily before meals. Lunch and dinner METFORMIN 1,000 MG TABLET 60 t* 3 08/29/2018 Route: ORAL Sig: Take 1 tablet by mouth twice daily with meals. LOSARTAN 100 MG TABLET 30 t* 5 08/29/2018 Route: ORAL Sig: Take 1 tablet by mouth once daily. Medications Discontinued During This Encounter insulin aspart U-100 (NOVOLOG) 100 u* 07/11/2018 08/29/2018 Class: Med Update Route: SUBCUTANEOUS Sig: Inject 5 Units subcutaneously twice daily before meals. Lunch and dinner Disc: Reason for discontinue is not on file. metFORMIN (GLUCOPHAGE) 1,000 mg tabl* 60 t* 3 05/29/2018 08/29/2018 Route: ORAL Sig: Take 1 tablet by mouth twice daily with meals. Disc: Reason for discontinue is not on file. losartan (COZAAR) 100 mg tablet 30 t* 5 01/10/2018 08/29/2018 Route: ORAL Sig: Take 1 tablet by mouth once daily. Disc: Reason for discontinue is not on file. Encounter Status:Closed by MAURA (PHARMACIST)VANESSA on 08/29/18 PROGRESS Observed: 08/02/2018 Status: COMPLETED Source: [place] 10:10 AM [facility] REPOSITORY O ID: [id number] Author: Deidre Smith (Geovanni) Jabari Service: (none) Author Type: Physician Meter Tester Type: Progress Notes Filed: 08/02/2018 12:12 PM Note Text: CC: Patient presents with: Tremor: been on going for awhile but worse today since having spirometry completed today. Thought that blood sugar was low and so ate something after the test and that did improve some 68 year old female with c/o increased tremor yesterday after breathing treatment. Has had tremor since episode with syncope, unknown duration with rhabdomyolysis, encephalopathy. Was previously on Gabapentin for neuropathy, been off of medication for 1 month now. Tremor has been worse since stopping medication. Tremor does not worsen with movement or intension. No loss of strength. PFT showed small airway disease with 20% improvement with bronchodilators. Started pulmicort which is helping a lot. No wheezing. SOB improved. DM2: Lantus 38u qHS. MTFN 1000mg BID. Last hgba1c 8%: has been modifying diet. Check home sugars: low to mid 100s. Inflammatory polyarthritis: ESR 44. Following with Dr. Johnson. HISTORIES FAMILY HISTORY Problem Relation Age of Onset - None Mother - None Father - Breast Cancer Maternal Aunt - Stroke Sister - Cancer Sister - COPD Sister PAST MEDICAL HISTORY Diagnosis Date - Allergic rhinitis, cause unspecified - Breast cancer (HCC) age 34-had lump, cancerous cells. no issues since - Diverticulosis of colon (without mention of hemorrhage) - Heme positive stool 2010 - History of cervical cancer regular Paps for life - Hyperlipidemia 2010 - Inflammatory polyarthritis (HCC) Dr. 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) - Type II or unspecified type diabetes mellitus without mention of complication, not stated as uncontrolled - Unspecified essential hypertension PAST SURGICAL HISTORY Procedure Laterality Date - APPENDECTOMY - COLONOSCOP W/ OR W/O BRSH SPEC 06/26/09 - EGD 2010 - ERCP W/O BRUSH/WASH SPECIMEN 07/23/2008 Cholangiopancreatography (ERCP) - MASTECTOMY age 34 Mastectomy - simple - REMV 2ND CATARACT,CORN-SCLER SECTN Cataract removal BILATERAL - TOTAL ABDOM HYSTERECTOMY age 27 Hysterectomy, MARQUES cervical cancer Social History Marital status: Spouse name: Years of education: Number of children: 2 Occupational History Occupation Employer Comment [employer] Social History Main Topics Smoking status: Former Smoker Packs/day: 0.75 Years: 30.00 Types: Cigarettes Quit date: 08/15/2000 Smokeless tobacco: Never Used Alcohol use: Yes Comment: rarely Drug use: No Sexual activity: No ACTIVE PROBLEM LIST Hyperlipidemia Allergic Rhinitis Osteoarthritis Asymptomatic Varicose Veins Reflux Esophagitis Ibs (Irritable Bowel Syndrome) Htn (Hypertension) Urge Incontinence Inflammatory Polyarthritis (Hcc) Type 2 Diabetes Mellitus With Diabetic Retinopathy (Hcc) History of Cervical Cancer History of Breast Cancer H/O Left Mastectomy Obesity, Class I, Bmi 30-34.9 Current Outpatient Prescriptions: alendronate (FOSAMAX) 70 mg tablet Take 1 tablet by mouth once each week. Take with a full glass of water, on an empty stomach; do NOT lie down for 30minutes. Disp: 12 tablet Rfl: 3 aspirin, enteric coated (ASPIRIN, ENTERIC COATED) 81 mg EC tablet Take 81 mg by mouth once daily. Disp: Rfl: atorvastatin (LIPITOR) 20 mg tablet Take 1 tablet by mouth daily at bedtime. For cholesterol. Disp: 30 tablet Rfl: 5 bethanechol (URECHOLINE) 25 mg tablet Disp: Rfl: budesonide (PULMICORT FLEXHALER) 180 mcg/actuation aepb Inhale 2 Puffs as instructed twice daily. Disp: 1 Inhaler Rfl: 2 CALCIUM CARBONATE (CALCIUM 600 ORAL) Take by mouth once daily. Disp: Rfl: fluorometholone (FML LIQUID FILM) 0.1 % ophthalmic suspension Use 2 Drops in the left eye twice daily. Disp: Rfl: fluticasone (FLONASE) 50 mcg/actuation nasal spray Use 1 Blanch in each nostril daily at bedtime. Use as directed. Disp: 1 Bottle Rfl: 11 folic acid 1 mg tablet Take 2 tablets by mouth once daily. Dr. Johnson Disp: Rfl: 0 Hydrochlorothiazide 12.5 mg capsule TAKE ONE CAPSULE BY MOUTH ONCE DAILY Disp: 30 capsule Rfl: 11 insulin aspart U-100 (NOVOLOG) 100 unit/mL inpn Inject 5 Units subcutaneously twice daily before meals. Lunch and dinner Disp: Rfl: insulin glargine (LANTUS SOLOSTAR U-100 INSULIN) 100 unit/mL (3 mL) inpn Inject 38 Units subcutaneously twice daily. Disp: 10 Pen Rfl: 5 loratadine (CLARITIN) 10 mg tablet Take 1 tablet by mouth once daily. Disp: 30 tablet Rfl: 5 losartan (COZAAR) 100 mg tablet Take 1 tablet by mouth once daily. Disp: 30 tablet Rfl: 5 meloxicam (MOBIC) 15 mg tablet Take 1 tablet by mouth once daily. With food. Disp: 14 tablet Rfl: 0 metFORMIN (GLUCOPHAGE) 1,000 mg tablet Take 1 tablet by mouth twice daily with meals. Disp: 60 tablet Rfl: 3 methotrexate 2.5 mg tablet Take 20 mg by mouth every Tuesday. Disp: Rfl: MULTIVITAMIN W-MINERALS/LUTEIN (CENTRUM SILVER ORAL) Take by mouth once daily. Disp: Rfl: oxybutynin (DITROPAN) 5 mg tablet Take 1 tablet by mouth once daily. Disp: 30 tablet Rfl: [address] (PROTONIX) 40 mg tablet Take 1 tablet by mouth once daily. Disp: Rfl: sulfaSALAzine EC (AZULFIDINE EN) 500 mg EC tablet Disp: Rfl: blood sugar diagnostic (BLOOD GLUCOSE TEST) test strip Test blood sugar(s) 3 times daily. Dx: Type 2 DM - Controlled E11.9 Insulin: YES Disp: 100 Each Rfl: 11 Blood-Glucose Meter monitoring kit Glucose Meter of Choice - Kit - Dx: Type 2 DM - Controlled E11.9 Disp: 1 Each Rfl: 0 COMPOUNDED PRESCRIPTION Insulin needles-1/2 cc for 100 uUse up to 4 a day Disp: 150 Each Rfl: 11 gabapentin (NEURONTIN) 300 mg capsule Take 1 capsule by mouth once daily for 91 days. Disp: Rfl: insulin needles, DISPOSABLE, (PEN NEEDLE) 31 gauge x 5/16 ndle Use one needle per dose. 4 per day. Disp: 4 Each Rfl: 99 No current facility-administered medications for this visit. BP CONTROLLED (<130/80) due on 1970 PNEUMOVAX AGE 65 AND OVER WITH 5YR LOOKBACK(1) due on 2017 EXAM: BP 142/60 Pulse 88 Temp 36.9 ?C (98.4 ?F) (Tympanic) Resp 16 Wt 85.3 kg (188 lb) BMI 34.39 kg/m? Vitals 06/13/2018 06/19/2018 07/27/2018 08/02/2018 08/02/2018 SITTING SYSTOLIC 133 134 132 142 SITTING DIASTOLIC 73 78 82 60 Pleasant Adult woman in no acute distress. Alert and oriented all spheres. Normal affect and cognition. Speech normal. No deficits to learning or comprehension. Skin warm, dry, pink to lips and nailbeds. Normal turgor. Respirations regular and unlabored. HEENT WNL. TM's clear. Nose and oropharynx free from injection or lesion. No cervical lymph nodes. Thyroid non-tender, no masses Chest CTA. HRRR without murmur or gallop. Extrem: no clubbing, cyanosis, edema. Extremities are warm and pink with prompt capillary refill. Has intention tremor right hand, none at rest. Mild cogwheeling right arm only. No resting tremor with distraction ASSESSMENT/PLAN: 1. Essential tremor - ICD9: 333.1, ICD10: G25.0 (primary diagnosis) Education. Possibly from prior syncopal event, ? anoxic injury. Gabapentin made her drowsy. Trial beta abrahan. Discussed administration and side effects. - METOPROLOL SUCCINATE ER 25 MG TABLET,EXTENDED RELEASE 24 HR 2. Essential hypertension - ICD9: 401.9, ICD10: I10 - good control - Recommended regular aerobic exercise. - Recommend home blood pressure monitoring, to bring results in on next visit - Goal of BP <130/80 - METOPROLOL SUCCINATE ER 25 MG TABLET,EXTENDED RELEASE 24 HR 3. 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 Doing much better with Pulmicort. Deidre Barboza PA-C CNOV Observed: 08/02/2018 Status: COMPLETED Source: [place] 10:00 AM [facility] REPOSITORY Office Visit (FAMPWS) MANISHA KEITH ([id number]) 1950 F Date Time Provider Department 08/02/18 10:00 AM Deidre BARBOZA) FAMPWS During your visit today, we recorded the following information about you: Temperature Pulse Respiration Blood pressure 98.4 degrees 88/minute 16/minute 142/60 Weight 85.3 kg Deidre Barboza PA-C 08/02/2018 12:12 PM Signed CC: Patient presents with: Tremor: been on going for awhile but worse today since having spirometry completed today. Thought that blood sugar was low and so ate something after the test and that did improve some 68 year old female with c/o increased tremor yesterday after breathing treatment. Has had tremor since episode with syncope, unknown duration with rhabdomyolysis, encephalopathy. Was previously on Gabapentin for neuropathy, been off of medication for 1 month now. Tremor has been worse since stopping medication. Tremor does not worsen with movement or intension. No loss of strength. PFT showed small airway disease with 20% improvement with bronchodilators. Started pulmicort which is helping a lot. No wheezing. SOB improved. DM2: Lantus 38u qHS. MTFN 1000mg BID. Last hgba1c 8%: has been modifying diet. Check home sugars: low to mid 100s. Inflammatory polyarthritis: ESR 44. Following with Dr. Johnson. HISTORIES FAMILY HISTORY Problem Relation Age of Onset - None Mother - None Father - Breast Cancer Maternal Aunt - Stroke Sister - Cancer Sister - COPD Sister PAST MEDICAL HISTORY Diagnosis Date - Allergic rhinitis, cause unspecified - Breast cancer (HCC) age 34-had lump, cancerous cells. no issues since - Diverticulosis of colon (without mention of hemorrhage) - Heme positive stool 2010 - History of cervical cancer regular Paps for life - Hyperlipidemia 2010 - Inflammatory polyarthritis (HCC) Dr. 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) - Type II or unspecified type diabetes mellitus without mention of complication, not stated as uncontrolled - Unspecified essential hypertension PAST SURGICAL HISTORY Procedure Laterality Date - APPENDECTOMY - COLONOSCOP W/ OR W/O BRSH SPEC 06/26/09 - EGD 2010 - ERCP W/O BRUSH/WASH SPECIMEN 07/23/2008 Cholangiopancreatography (ERCP) - MASTECTOMY age 34 Mastectomy - simple - REMV 2ND CATARACT,CORN-SCLER SECTN Cataract removal BILATERAL - TOTAL ABDOM HYSTERECTOMY age 27 Hysterectomy, MARQUES cervical cancer Social History Marital status: Spouse name: Years of education: Number of children: 2 Occupational History Occupation Employer Comment [employer] Social History Main Topics Smoking status: Former Smoker Packs/day: 0.75 Years: 30.00 Types: Cigarettes Quit date: 08/15/2000 Smokeless tobacco: Never Used Alcohol use: Yes Comment: rarely Drug use: No Sexual activity: No ACTIVE PROBLEM LIST Hyperlipidemia Allergic Rhinitis Osteoarthritis Asymptomatic Varicose Veins Reflux Esophagitis Ibs (Irritable Bowel Syndrome) Htn (Hypertension) Urge Incontinence Inflammatory Polyarthritis (Hcc) Type 2 Diabetes Mellitus With Diabetic Retinopathy (Hcc) History of Cervical Cancer History of Breast Cancer H/O Left Mastectomy Obesity, Class I, Bmi 30-34.9 Current Outpatient Prescriptions: alendronate (FOSAMAX) 70 mg tablet Take 1 tablet by mouth once each week. Take with a full glass of water, on an empty stomach; do NOT lie down for 30minutes. Disp: 12 tablet Rfl: 3 aspirin, enteric coated (ASPIRIN, ENTERIC COATED) 81 mg EC tablet Take 81 mg by mouth once daily. Disp: Rfl: atorvastatin (LIPITOR) 20 mg tablet Take 1 tablet by mouth daily at bedtime. For cholesterol. Disp: 30 tablet Rfl: 5 bethanechol (URECHOLINE) 25 mg tablet Disp: Rfl: budesonide (PULMICORT FLEXHALER) 180 mcg/actuation aepb Inhale 2 Puffs as instructed twice daily. Disp: 1 Inhaler Rfl: 2 CALCIUM CARBONATE (CALCIUM 600 ORAL) Take by mouth once daily. Disp: Rfl: fluorometholone (FML LIQUID FILM) 0.1 % ophthalmic suspension Use 2 Drops in the left eye twice daily. Disp: Rfl: fluticasone (FLONASE) 50 mcg/actuation nasal spray Use 1 Blanch in each nostril daily at bedtime. Use as directed. Disp: 1 Bottle Rfl: 11 folic acid 1 mg tablet Take 2 tablets by mouth once daily. Dr. Johnson Disp: Rfl: 0 Hydrochlorothiazide 12.5 mg capsule TAKE ONE CAPSULE BY MOUTH ONCE DAILY Disp: 30 capsule Rfl: 11 insulin aspart U-100 (NOVOLOG) 100 unit/mL inpn Inject 5 Units subcutaneously twice daily before meals. Lunch and dinner Disp: Rfl: insulin glargine (LANTUS SOLOSTAR U-100 INSULIN) 100 unit/mL (3 mL) inpn Inject 38 Units subcutaneously twice daily. Disp: 10 Pen Rfl: 5 loratadine (CLARITIN) 10 mg tablet Take 1 tablet by mouth once daily. Disp: 30 tablet Rfl: 5 losartan (COZAAR) 100 mg tablet Take 1 tablet by mouth once daily. Disp: 30 tablet Rfl: 5 meloxicam (MOBIC) 15 mg tablet Take 1 tablet by mouth once daily. With food. Disp: 14 tablet Rfl: 0 metFORMIN (GLUCOPHAGE) 1,000 mg tablet Take 1 tablet by mouth twice daily with meals. Disp: 60 tablet Rfl: 3 methotrexate 2.5 mg tablet Take 20 mg by mouth every Tuesday. Disp: Rfl: MULTIVITAMIN W-MINERALS/LUTEIN (CENTRUM SILVER ORAL) Take by mouth once daily. Disp: Rfl: oxybutynin (DITROPAN) 5 mg tablet Take 1 tablet by mouth once daily. Disp: 30 tablet Rfl: [address] (PROTONIX) 40 mg tablet Take 1 tablet by mouth once daily. Disp: Rfl: sulfaSALAzine EC (AZULFIDINE EN) 500 mg EC tablet Disp: Rfl: blood sugar diagnostic (BLOOD GLUCOSE TEST) test strip Test blood sugar(s) 3 times daily. Dx: Type 2 DM - Controlled E11.9 Insulin: YES Disp: 100 Each Rfl: 11 Blood-Glucose Meter monitoring kit Glucose Meter of Choice - Kit - Dx: Type 2 DM - Controlled E11.9 Disp: 1 Each Rfl: 0 COMPOUNDED PRESCRIPTION Insulin needles-1/2 cc for 100 uUse up to 4 a day Disp: 150 Each Rfl: 11 gabapentin (NEURONTIN) 300 mg capsule Take 1 capsule by mouth once daily for 91 days. Disp: Rfl: insulin needles, DISPOSABLE, (PEN NEEDLE) 31 gauge x 5/16 ndle Use one needle per dose. 4 per day. Disp: 4 Each Rfl: 99 No current facility-administered medications for this visit. BP CONTROLLED (<130/80) due on 1970 PNEUMOVAX AGE 65 AND OVER WITH 5YR LOOKBACK(1) due on 2017 EXAM: BP 142/60 Pulse 88 Temp 36.9 ?C (98.4 ?F) (Tympanic) Resp 16 Wt 85.3 kg (188 lb) BMI 34.39 kg/m? Vitals 06/13/2018 06/19/2018 07/27/2018 08/02/2018 08/02/2018 SITTING SYSTOLIC 133 134 132 142 SITTING DIASTOLIC 73 78 82 60 Pleasant Adult woman in no acute distress. Alert and oriented all spheres. Normal affect and cognition. Speech normal. No deficits to learning or comprehension. Skin warm, dry, pink to lips and nailbeds. Normal turgor. Respirations regular and unlabored. HEENT WNL. TM's clear. Nose and oropharynx free from injection or lesion. No cervical lymph nodes. Thyroid non-tender, no masses Chest CTA. HRRR without murmur or gallop. Extrem: no clubbing, cyanosis, edema. Extremities are warm and pink with prompt capillary refill. Has intention tremor right hand, none at rest. Mild cogwheeling right arm only. No resting tremor with distraction ASSESSMENT/PLAN: 1. Essential tremor - ICD9: 333.1, ICD10: G25.0 (primary diagnosis) Education. Possibly from prior syncopal event, ? anoxic injury. Gabapentin made her drowsy. Trial beta abrahan. Discussed administration and side effects. - METOPROLOL SUCCINATE ER 25 MG TABLET,EXTENDED RELEASE 24 HR 2. Essential hypertension - ICD9: 401.9, ICD10: I10 - good control - Recommended regular aerobic exercise. - Recommend home blood pressure monitoring, to bring results in on next visit - Goal of BP <130/80 - METOPROLOL SUCCINATE ER 25 MG TABLET,EXTENDED RELEASE 24 HR 3. 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 Doing much better with Pulmicort. GEOVANNI Voss PA-C 08/02/2018 10:48 AM Addendum Metoprolol (Lopressor, Toprol XL) Your physician has prescribed metoprolol to help prevent your migraine headaches. This medication is classified as a beta abrahan. It has not been approved by the Food and Drug Administration for the treatment of migraine headaches; however controlled studies have shown that it is effective in the prevention of migraine headaches. The mechanism of action of this medication is still unknown. It does have effects on both blood vessels and the nervous system. Possible Side Effects: Fatigue; nausea; sleep disturbances; low blood pressure; dizziness; cold hands and feet; slower heart rate (even during aerobic exercise); and sexual dysfunction. ----Take with food to prevent nausea. Notify your physician if you have asthma, chronic obstructive pulmonary disease (COPD), congestive heart failure (CHF); heart block, low heart rate, insulin dependent diabetes mellitus or peripheral vascular disease. NOTE: Do not use during . Metoprolol is excreted in breast milk. Do not abruptly stop taking a beta abrahan. When these drugs are stopped, patients often feel anxious, have rapid heart rates and feel palpitations. DOSAGE: To be determined by your physician. Take 25 mg once times daily ADDITIONAL INSTRUCTIONS: Please read pharmacy provided literature on risks and administration. The full effects of this medication may not be realized for 2 to 4 weeks after initiation of treatment. Referring Provider: SELF [[id number]] Allergies As of Date: 08/02/2018 Noted Allergy Reaction JESENIA INHIBITORS 03/27/2014 3 - Cough NSAIDS (NON-STEROIDAL ANTI-INFLAM*05/09/2009 8 - GI Upset TAPE (ADHESIVE TAPE (ROSINS)) 10/26/2016 14 - Other: See Comments Comments: Blisters from surgical tape Date Reviewed: 08/02/2018 Reviewed by: Macarena Lepe LPN - Fully Assessed Reason for Visit: Tremor [[id number]] Cmt: been on going for awhile but worse today since having spirometry completed today. Thought that blood sugar was low and so ate something after the test and that did improve some Primary Visit Diagnosis:Essential tremor [G25.0] Other Visit Diagnoses:Essential hypertension [I10] Small airways disease [J98.4] 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, with long-term current use of insulin, macular edema presence unspecified, unspecified laterality, unspecified proliferative retinopathy* ([facility]) [E11.3599, Z79.4] Inflammatory polyarthritis ([facility]) [M06.4] Order(s):metoprolol succinate ER (TOPROL XL) 25 mg 24 hr tabletTake 1 tablet by mouth once daily.Disp: 30 tabletRfl: 2 Prescriptions as of 08/02/2018 Sig: ALENDRONATE 70 MG TABLET Take 1 tablet by mouth once e* ASPIRIN 81 MG TABLET,DELAYED * Take 81 mg by mouth once burt* ATORVASTATIN 20 MG TABLET Take 1 tablet by mouth daily * BETHANECHOL CHLORIDE 25 MG TA* BUDESONIDE 180 MCG/ACTUATION * Inhale 2 Puffs as instructed * * CALCIUM 600 ORAL Take by mouth once daily. FLUOROMETHOLONE 0.1 % EYE MARINE* Use 2 Drops in the left eye t* FLUTICASONE 50 MCG/ACTUATION * Use 1 Blanch in each nostril d* FOLIC ACID 1 MG TABLET Take 2 tablets by mouth once * HYDROCHLOROTHIAZIDE 12.5 MG C* TAKE ONE CAPSULE BY MOUTH ONC* INSULIN ASPART U-100 100 UNI* Inject 5 Units subcutaneously* INSULIN GLARGINE (U-100) 100 * Inject 38 Units subcutaneousl* LORATADINE 10 MG TABLET Take 1 tablet by mouth once d* LOSARTAN 100 MG TABLET Take 1 tablet by mouth once d* MELOXICAM 15 MG TABLET Take 1 tablet by mouth once d* METFORMIN 1,000 MG TABLET Take 1 tablet by mouth twice * METHOTREXATE SODIUM 2.5 MG TA* Take 20 mg by mouth every Sun* * CENTRUM SILVER ORAL Take by mouth once daily. OXYBUTYNIN CHLORIDE 5 MG TABL* Take 1 tablet by mouth once d* PANTOPRAZOLE 40 MG TABLET,DEL* Take 1 tablet by mouth once d* SULFASALAZINE 500 MG TABLET,D* BLOOD SUGAR DIAGNOSTIC STRIPS Test blood sugar(s) 3 times d* BLOOD-GLUCOSE METER KIT Glucose Meter of Choice - Kit* COMPOUNDED PRESCRIPTION Insulin needles-1/2 cc for 10* GABAPENTIN 300 MG CAPSULE Take 1 capsule by mouth once * PEN NEEDLE, DIABETIC 31 GAUGE* Use one needle per dose. 4 pe* METOPROLOL SUCCINATE ER 25 MG* Take 1 tablet by mouth once d* Problem List As Of Date 08/02/2018 Noted Resolved BENIGN HYPERTENSION [I10] INVALID FOR*09/01/2007 Hyperlipidemia [E78.5] INVALID FOR* LOC PRIM OSTEOART-PELVIS [M16.10] INVALID FOR*06/04/2006 Allergic rhinitis [J30.9] INVALID FOR* Diabetes (HCC) [E11.9] INVALID FOR*06/27/2015 Unspecified sleep apnea [G47.30] INVALID FOR*12/07/2013 More... Osteoarthritis [M19.90] INVALID FOR* Irritable bowel syndrome [K58.9] INVALID FOR*11/25/2016 Dysuria [R30.0] INVALID FOR*05/25/2016 Unspecified sinusitis (chronic) [J32.9] INVALID FOR*05/25/2016 Other specified disorder of bladder [596.8] INVALID FOR*11/25/2016 ASYMPTOMATIC VARICOSE VEINS [I83.90] INVALID FOR* REFLUX ESOPHAGITIS [K21.0] ESOPHAGITIS, UNSPECIFIED [K20.9] INVALID FOR*07/30/2008 Malignant neoplasm of female breast (HCC) [C50.*INVALID FOR*05/25/2016 IBS (Irritable Bowel Syndrome) [K58.9] Heme positive stool [R19.5] 11/22/2013 Routine general medical examination at a health*INVALID FOR*11/22/2013 HTN (hypertension) [I10] INVALID FOR* Urge incontinence [N39.41] INVALID FOR* Inflammatory polyarthritis (HCC) [M06.4] More... Type 2 diabetes mellitus with diabetic retinopa*INVALID FOR* History of cervical cancer [Z85.41] More... History of breast cancer [Z85.3] INVALID FOR* H/O left mastectomy [Z90.12] INVALID FOR* Obesity, Class I, BMI 30-34.9 [E66.9] INVALID FOR* Other instructions from your clinician: Metoprolol (Lopressor, Toprol XL) Your physician has prescribed metoprolol to help prevent your migraine headaches. This medication is classified as a beta abrahan. It has not been approved by the Food and Drug Administration for the treatment of migraine headaches; however controlled studies have shown that it is effective in the prevention of migraine headaches. The mechanism of action of this medication is still unknown. It does have effects on both blood vessels and the nervous system. Possible Side Effects: Fatigue; nausea; sleep disturbances; low blood pressure; dizziness; cold hands and feet; slower heart rate (even during aerobic exercise); and sexual dysfunction. ----Take with food to prevent nausea. Notify your physician if you have asthma, chronic obstructive pulmonary disease (COPD), congestive heart failure (CHF); heart block, low heart rate, insulin dependent diabetes mellitus or peripheral vascular disease. NOTE: Do not use during . Metoprolol is excreted in breast milk. Do not abruptly stop taking a beta abrahan. When these drugs are stopped, patients often feel anxious, have rapid heart rates and feel palpitations. DOSAGE: To be determined by your physician. Take 25 mg once times daily ADDITIONAL INSTRUCTIONS: Please read pharmacy provided literature on risks and administration. The full effects of this medication may not be realized for 2 to 4 weeks after initiation of treatment. Prescriptions ordered this encounter Disp Refills Start End METOPROLOL SUCCINATE ER 25 MG TABLET* 30 t* 2 08/02/2018 Route: ORAL Sig: Take 1 tablet by mouth once daily. Encounter Status:Closed by Deidre BARBOZA PA-C on 08/02/18 PROGRESS Observed: 07/27/2018 Status: COMPLETED Source: [place] 10:23 AM [facility] REPOSITORY [facility] ID: [id number] Author: Brayan Arita Service: (none) Author Type: Physician Type: Progress Notes Filed: 07/27/2018 11:28 AM Note Text: Patient presents with: Diabetes Cough: still with cough states that is productive HPI: Patient presents today for office visit for follow up. DM: seeing pharmacy. Adjusting meds. Sugars are improving overall. Slightly high recently. Rheum:still seeing Dr. Johnson. Arthritis continues to be an issue Last blood count was normal. OSTEOPOROSIS:just did bone density it January. HYPERTENSION:no chest pain or shortness of breath. NEUROPATHY:doing much better. ONC: mammogram was stable. Hld: no real improvement off of atorvastatin. Suggested she resume. Complains of cough: had chest xray. Changed bp meds. Is on reflux meds. Brings up some sputum. Has been that way for months. No fever or chills. Or sore throat. Does have chronic sinus drainage. Denies reflux. Occasionally feels tightness or wheezing. Had a tb test placed at work but wonders if was bruised. Appears to be bruised. No wheel. Component Latest Ref Rng AND Units 07/10/2018 Protein, Total 6.3 - 8.0 g/dL 7.3 Albumin 3.9 - 4.9 g/dL 3.8 (L) Calcium 8.5 - 10.2 mg/dL 9.4 Bilirubin, Total 0.2 - 1.3 mg/dL 0.3 Alkaline Phosphatase 34 - 123 U/L 47 AST 13 - 35 U/L 19 Glucose 74 - 99 mg/dL 96 BUN 7 - 21 mg/dL 14 Creatinine 0.58 - 0.96 mg/dL 0.86 Sodium 136 - 144 mmol/L 140 Potassium 3.7 - 5.1 mmol/L 4.0 Chloride 97 - 105 mmol/L 103 CO2 22 - 30 mmol/L 26 Anion Gap 9 - 18 mmol/L 11 ALT 7 - 38 U/L 16 eGFR- >60 eGFR-All Other Races . >60 Hemoglobin A1C 4.3 - 5.6 % 7.5 (H) Estimated Average Glucose mg/dL 169 MEDICATIONS: Current Outpatient Prescriptions: alendronate (FOSAMAX) 70 mg tablet Take 1 tablet by mouth once each week. Take with a full glass of water, on an empty stomach; do NOT lie down for 30minutes. aspirin, enteric coated (ASPIRIN, ENTERIC COATED) 81 mg EC tablet Take 81 mg by mouth once daily. CALCIUM CARBONATE (CALCIUM 600 ORAL) Take by mouth once daily. fluorometholone (FML LIQUID FILM) 0.1 % ophthalmic suspension Use 2 Drops in the left eye twice daily. fluticasone (FLONASE) 50 mcg/actuation nasal spray Use 1 Blanch in each nostril daily at bedtime. Use as directed. folic acid 1 mg tablet Take 2 tablets by mouth once daily. Dr. Johnson Hydrochlorothiazide 12.5 mg capsule TAKE ONE CAPSULE BY MOUTH ONCE DAILY insulin aspart U-100 (NOVOLOG) 100 unit/mL inpn Inject 5 Units subcutaneously twice daily before meals. Lunch and dinner insulin glargine (LANTUS SOLOSTAR U-100 INSULIN) 100 unit/mL (3 mL) inpn Inject 38 Units subcutaneously twice daily. loratadine (CLARITIN) 10 mg tablet Take 1 tablet by mouth once daily. losartan (COZAAR) 100 mg tablet Take 1 tablet by mouth once daily. metFORMIN (GLUCOPHAGE) 1,000 mg tablet Take 1 tablet by mouth twice daily with meals. methotrexate 2.5 mg tablet Take 20 mg by mouth every Tuesday. MULTIVITAMIN W-MINERALS/LUTEIN (CENTRUM SILVER ORAL) Take by mouth once daily. oxybutynin (DITROPAN) 5 mg tablet Take 1 tablet by mouth once daily. pantoprazole DR (PROTONIX) 40 mg tablet Take 1 tablet by mouth once daily. sulfaSALAzine EC (AZULFIDINE EN) 500 mg EC tablet bethanechol (URECHOLINE) 25 mg tablet blood sugar diagnostic (BLOOD GLUCOSE TEST) test strip Test blood sugar(s) 3 times daily. Dx: Type 2 DM - Controlled E11.9 Insulin: YES Blood-Glucose Meter monitoring kit Glucose Meter of Choice - Kit - Dx: Type 2 DM - Controlled E11.9 COMPOUNDED PRESCRIPTION Insulin needles-1/2 cc for 100 uUse up to 4 a day gabapentin (NEURONTIN) 300 mg capsule Take 1 capsule by mouth once daily for 91 days. insulin needles, DISPOSABLE, (PEN NEEDLE) 31 gauge x 5/16 ndle Use one needle per dose. 4 per day. meloxicam (MOBIC) 15 mg tablet Take 1 tablet by mouth once daily. With food. No current facility-administered medications for this visit. ALLERGIES: ALLERGIES Allergen Reactions - Jesenia Inhibitors Cough - Nsaids (Non-Steroid* GI Upset - Tape [Adhesive Tape* Other: See Comments Blisters from surgical tape PAST MEDICAL HISTORY Diagnosis Date - Allergic rhinitis, cause unspecified - Breast cancer (HCC) age 34-had lump, cancerous cells. no issues since - Diverticulosis of colon (without mention of hemorrhage) - Heme positive stool 2010 - History of cervical cancer regular Paps for life - Hyperlipidemia 2010 - Inflammatory polyarthritis (HCC) Dr. 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) - Type II or unspecified type diabetes mellitus without mention of complication, not stated as uncontrolled - Unspecified essential hypertension PAST SURGICAL HISTORY Procedure Laterality Date - APPENDECTOMY - COLONOSCOP W/ OR W/O BRSH SPEC 06/26/09 - EGD 2010 - ERCP W/O BRUSH/WASH SPECIMEN 07/23/2008 Cholangiopancreatography (ERCP) - MASTECTOMY age 34 Mastectomy - simple - REMV 2ND CATARACT,CORN-SCLER SECTN Cataract removal BILATERAL - TOTAL ABDOM HYSTERECTOMY age 27 Hysterectomy, MARQUES cervical cancer FAMILY HISTORY Problem Relation Age of Onset - None Mother - None Father - Breast Cancer Maternal Aunt - Stroke Sister - Cancer Sister - COPD Sister Social History Marital status: Spouse name: Years of education: Number of children: 2 Occupational History Occupation Employer Comment [employer] Social History Main Topics Smoking status: Former Smoker Packs/day: 0.75 Years: 30.00 Types: Cigarettes Quit date: 08/15/2000 Smokeless tobacco: Never Used Alcohol use: Yes Comment: rarely Drug use: No Sexual activity: No Reviewed current medications, allergies, past medical history, surgical history, family history and social history today. REVIEW OF SYSTEMS GI: Negative for blood in stools or black stools, change in bowel habit All other reviewed and negative other than HPI. HEALTH MAINTENANCE: Reviewed health maintenance issues today and recommended the following in detail. BP CONTROLLED (<130/80) due on 1970 PNEUMOVAX AGE 65 AND OVER WITH 5YR LOOKBACK(1) due on 2017 VITALS: BP 132/82 Pulse 80 Temp 36.8 ?C (98.2 ?F) (Tympanic) Resp 18 Wt 84.4 kg (186 lb) BMI 34.02 kg/m? Last 4 Encounter Wt Readings: Date: Wt: 07/27/2018 84.4 kg (186 lb) 06/19/2018 84.6 kg (186 lb 9.6 oz) 05/05/2018 80.7 kg (178 lb) 04/27/2018 81.2 kg (179 lb) PHYSICAL EXAMINATION: General appearance: Well appearing, alert, in no acute distress, well-hydrated, well nourished. Skin: Skin color, texture, turgor normal, no suspicious rashes or lesions Head: Normocephalic, no masses, lesions, tenderness or abnormalities Eyes: Anicteric sclera. Pupils are equally round and reactive to light. Extraocular movements are intact. Ears: External ears normal, canals clear Nose/Sinuses: Nares normal, septum midline, mucosa normal, no drainage or sinus tenderness Oropharynx: Lips, mucosa, and tongue normal, teeth and gums normal, oropharynx normal Neck: Supple, no adenopathy; thyroid symmetric, normal size, no bruits Back: Normal exam Lungs: lungs clear to auscultation. No wheezing, rhonchi, rales Heart: RRR without murmur, gallop, or rubs. No ectopy Abdomen: Normal abdominal exam, Abdomen soft, non-tender. Bowel sounds normal. No masses, organomegaly Extremities: No deformities, edema, skin discoloration, clubbing or cyanosis. Good capillary refill. Musculoskeletal: No joint swelling, deformity, or tenderness Peripheral pulses: Normal Neuro: Gait normal. Reflexes normal and symmetric. Sensation grossly intact. ASSESSMENT/PLAN: 1. Mixed hyperlipidemia - ICD9: 272.2, ICD10: E78.2 (primary diagnosis) - to be determined upon return of lab results - resume meds. - ATORVASTATIN 20 MG TABLET - COMP METABOLIC PANEL - LIPID PANEL BASIC 2. Essential hypertension - ICD9: 401.9, ICD10: I10 - good control - Continue current medication(s) - Recommended regular aerobic exercise. - Recommend home blood pressure monitoring, to bring results in on next visit 3. Inflammatory polyarthritis (HCC) - ICD9: 714.9, ICD10: M06.4 - follow labs. See rheum. - CBC + DIFF 4. Reflux esophagitis - ICD9: 530.11, ICD10: K21.0 - Call if any issues. 5. 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 7. History of breast cancer - ICD9: V10.3, ICD10: Z85.3 - continue follow up with mammogram. 8. Cough - ICD9: 786.2, ICD10: R05 - Discussed risks and benefits of new medication with the patient. Advised them to call if any side effects or questions. - Red flags for re-assessment reviewed with patient in detail. - SPIROMETRY - BASELINE AND POST DILATOR - BUDESONIDE 180 MCG/ACTUATION BREATH ACTIVATED POWDER INHALER Brayan Arita MD RTO in six week and prn CNOV Observed: 07/27/2018 Status: COMPLETED Source: [place] 10:00 AM [facility] REPOSITORY [facility] MANISHA KEITH ([id number]) 1950 F Date Time Provider Department 07/27/18 10:00 AM [facility] During your visit today, we recorded the following information about you: Temperature Pulse Respiration Blood pressure 98.2 degrees 80/minute 18/minute 132/82 Weight 84.4 kg Brayan Arita MD 07/27/2018 11:28 AM Signed Patient presents with: Diabetes Cough: still with cough states that is productive HPI: Patient presents today for office visit for follow up. DM: seeing pharmacy. Adjusting meds. Sugars are improving overall. Slightly high recently. Rheum:still seeing Dr. Johnson. Arthritis continues to be an issue Last blood count was normal. OSTEOPOROSIS:just did bone density it January. HYPERTENSION:no chest pain or shortness of breath. NEUROPATHY:doing much better. ONC: mammogram was stable. Hld: no real improvement off of atorvastatin. Suggested she resume. Complains of cough: had chest xray. Changed bp meds. Is on reflux meds. Brings up some sputum. Has been that way for months. No fever or chills. Or sore throat. Does have chronic sinus drainage. Denies reflux. Occasionally feels tightness or wheezing. Had a tb test placed at work but wonders if was bruised. Appears to be bruised. No wheel. Component Latest Ref Rng AND Units 07/10/2018 Protein, Total 6.3 - 8.0 g/dL 7.3 Albumin 3.9 - 4.9 g/dL 3.8 (L) Calcium 8.5 - 10.2 mg/dL 9.4 Bilirubin, Total 0.2 - 1.3 mg/dL 0.3 Alkaline Phosphatase 34 - 123 U/L 47 AST 13 - 35 U/L 19 Glucose 74 - 99 mg/dL 96 BUN 7 - 21 mg/dL 14 Creatinine 0.58 - 0.96 mg/dL 0.86 Sodium 136 - 144 mmol/L 140 Potassium 3.7 - 5.1 mmol/L 4.0 Chloride 97 - 105 mmol/L 103 CO2 22 - 30 mmol/L 26 Anion Gap 9 - 18 mmol/L 11 ALT 7 - 38 U/L 16 eGFR- >60 eGFR-All Other Races . >60 Hemoglobin A1C 4.3 - 5.6 % 7.5 (H) Estimated Average Glucose mg/dL 169 MEDICATIONS: Current Outpatient Prescriptions: alendronate (FOSAMAX) 70 mg tablet Take 1 tablet by mouth once each week. Take with a full glass of water, on an empty stomach; do NOT lie down for 30minutes. aspirin, enteric coated (ASPIRIN, ENTERIC COATED) 81 mg EC tablet Take 81 mg by mouth once daily. CALCIUM CARBONATE (CALCIUM 600 ORAL) Take by mouth once daily. fluorometholone (FML LIQUID FILM) 0.1 % ophthalmic suspension Use 2 Drops in the left eye twice daily. fluticasone (FLONASE) 50 mcg/actuation nasal spray Use 1 Blanch in each nostril daily at bedtime. Use as directed. folic acid 1 mg tablet Take 2 tablets by mouth once daily. Dr. Johnson Hydrochlorothiazide 12.5 mg capsule TAKE ONE CAPSULE BY MOUTH ONCE DAILY insulin aspart U-100 (NOVOLOG) 100 unit/mL inpn Inject 5 Units subcutaneously twice daily before meals. Lunch and dinner insulin glargine (LANTUS SOLOSTAR U-100 INSULIN) 100 unit/mL (3 mL) inpn Inject 38 Units subcutaneously twice daily. loratadine (CLARITIN) 10 mg tablet Take 1 tablet by mouth once daily. losartan (COZAAR) 100 mg tablet Take 1 tablet by mouth once daily. metFORMIN (GLUCOPHAGE) 1,000 mg tablet Take 1 tablet by mouth twice daily with meals. methotrexate 2.5 mg tablet Take 20 mg by mouth every Tuesday. MULTIVITAMIN W-MINERALS/LUTEIN (CENTRUM SILVER ORAL) Take by mouth once daily. oxybutynin (DITROPAN) 5 mg tablet Take 1 tablet by mouth once daily. pantoprazole DR (PROTONIX) 40 mg tablet Take 1 tablet by mouth once daily. sulfaSALAzine EC (AZULFIDINE EN) 500 mg EC tablet bethanechol (URECHOLINE) 25 mg tablet blood sugar diagnostic (BLOOD GLUCOSE TEST) test strip Test blood sugar(s) 3 times daily. Dx: Type 2 DM - Controlled E11.9 Insulin: YES Blood-Glucose Meter monitoring kit Glucose Meter of Choice - Kit - Dx: Type 2 DM - Controlled E11.9 COMPOUNDED PRESCRIPTION Insulin needles-1/2 cc for 100 uUse up to 4 a day gabapentin (NEURONTIN) 300 mg capsule Take 1 capsule by mouth once daily for 91 days. insulin needles, DISPOSABLE, (PEN NEEDLE) 31 gauge x 5/16 ndle Use one needle per dose. 4 per day. meloxicam (MOBIC) 15 mg tablet Take 1 tablet by mouth once daily. With food. No current facility-administered medications for this visit. ALLERGIES: ALLERGIES Allergen Reactions - Jesenia Inhibitors Cough - Nsaids (Non-Steroid* GI Upset - Tape [Adhesive Tape* Other: See Comments Blisters from surgical tape PAST MEDICAL HISTORY Diagnosis Date - Allergic rhinitis, cause unspecified - Breast cancer (HCC) age 34-had lump, cancerous cells. no issues since - Diverticulosis of colon (without mention of hemorrhage) - Heme positive stool 2010 - History of cervical cancer regular Paps for life - Hyperlipidemia 2010 - Inflammatory polyarthritis (HCC) Dr. 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) - Type II or unspecified type diabetes mellitus without mention of complication, not stated as uncontrolled - Unspecified essential hypertension PAST SURGICAL HISTORY Procedure Laterality Date - APPENDECTOMY - COLONOSCOP W/ OR W/O BRSH SPEC 06/26/09 - EGD 2010 - ERCP W/O BRUSH/WASH SPECIMEN 07/23/2008 Cholangiopancreatography (ERCP) - MASTECTOMY age 34 Mastectomy - simple - REMV 2ND CATARACT,CORN-SCLER SECTN Cataract removal BILATERAL - TOTAL ABDOM HYSTERECTOMY age 27 Hysterectomy, MARQUES cervical cancer FAMILY HISTORY Problem Relation Age of Onset - None Mother - None Father - Breast Cancer Maternal Aunt - Stroke Sister - Cancer Sister - COPD Sister Social History Marital status: Spouse name: Years of education: Number of children: 2 Occupational History Occupation Employer Comment [employer] Social History Main Topics Smoking status: Former Smoker Packs/day: 0.75 Years: 30.00 Types: Cigarettes Quit date: 08/15/2000 Smokeless tobacco: Never Used Alcohol use: Yes Comment: rarely Drug use: No Sexual activity: No Reviewed current medications, allergies, past medical history, surgical history, family history and social history today. REVIEW OF SYSTEMS GI: Negative for blood in stools or black stools, change in bowel habit All other reviewed and negative other than HPI. HEALTH MAINTENANCE: Reviewed health maintenance issues today and recommended the following in detail. BP CONTROLLED (<130/80) due on 1970 PNEUMOVAX AGE 65 AND OVER WITH 5YR LOOKBACK(1) due on 2017 VITALS: BP 132/82 Pulse 80 Temp 36.8 ?C (98.2 ?F) (Tympanic) Resp 18 Wt 84.4 kg (186 lb) BMI 34.02 kg/m? Last 4 Encounter Wt Readings: Date: Wt: 07/27/2018 84.4 kg (186 lb) 06/19/2018 84.6 kg (186 lb 9.6 oz) 05/05/2018 80.7 kg (178 lb) 04/27/2018 81.2 kg (179 lb) PHYSICAL EXAMINATION: General appearance: Well appearing, alert, in no acute distress, well-hydrated, well nourished. Skin: Skin color, texture, turgor normal, no suspicious rashes or lesions Head: Normocephalic, no masses, lesions, tenderness or abnormalities Eyes: Anicteric sclera. Pupils are equally round and reactive to light. Extraocular movements are intact. Ears: External ears normal, canals clear Nose/Sinuses: Nares normal, septum midline, mucosa normal, no drainage or sinus tenderness Oropharynx: Lips, mucosa, and tongue normal, teeth and gums normal, oropharynx normal Neck: Supple, no adenopathy; thyroid symmetric, normal size, no bruits Back: Normal exam Lungs: lungs clear to auscultation. No wheezing, rhonchi, rales Heart: RRR without murmur, gallop, or rubs. No ectopy Abdomen: Normal abdominal exam, Abdomen soft, non-tender. Bowel sounds normal. No masses, organomegaly Extremities: No deformities, edema, skin discoloration, clubbing or cyanosis. Good capillary refill. Musculoskeletal: No joint swelling, deformity, or tenderness Peripheral pulses: Normal Neuro: Gait normal. Reflexes normal and symmetric. Sensation grossly intact. ASSESSMENT/PLAN: 1. Mixed hyperlipidemia - ICD9: 272.2, ICD10: E78.2 (primary diagnosis) - to be determined upon return of lab results - resume meds. - ATORVASTATIN 20 MG TABLET - COMP METABOLIC PANEL - LIPID PANEL BASIC 2. Essential hypertension - ICD9: 401.9, ICD10: I10 - good control - Continue current medication(s) - Recommended regular aerobic exercise. - Recommend home blood pressure monitoring, to bring results in on next visit 3. Inflammatory polyarthritis (HCC) - ICD9: 714.9, ICD10: M06.4 - follow labs. See rheum. - CBC + DIFF 4. Reflux esophagitis - ICD9: 530.11, ICD10: K21.0 - Call if any issues. 5. 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 7. History of breast cancer - ICD9: V10.3, ICD10: Z85.3 - continue follow up with mammogram. 8. Cough - ICD9: 786.2, ICD10: R05 - Discussed risks and benefits of new medication with the patient. Advised them to call if any side effects or questions. - Red flags for re-assessment reviewed with patient in detail. - SPIROMETRY - BASELINE AND POST DILATOR - BUDESONIDE 180 MCG/ACTUATION BREATH ACTIVATED POWDER INHALER Brayan Arita MD RTO in six week and prn Referring Provider: BRAYAN ARITA [[id number]] Allergies As of Date: 07/27/2018 Noted Allergy Reaction JESENIA INHIBITORS 03/27/2014 3 - Cough NSAIDS (NON-STEROIDAL ANTI-INFLAM*05/09/2009 8 - GI Upset TAPE (ADHESIVE TAPE (ROSINS)) 10/26/2016 14 - Other: See Comments Comments: Blisters from surgical tape Date Reviewed: 07/27/2018 Reviewed by: Areli Salas LPN - Fully Assessed Reason for Visit: Diabetes [34] Cough [28] Cmt: still with cough states that is productive Reason For Visit History Recorded Primary Visit Diagnosis:Mixed hyperlipidemia [E78.2] Other Visit Diagnoses:Essential hypertension [I10] Inflammatory polyarthritis (HCC) [M06.4] Reflux esophagitis [K21.0] 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, with long-term current use of insulin, macular edema presence unspecified, unspecified laterality, unspecified proliferative retinopathy* (HCC) [E11.3599, Z79.4] History of cervical cancer [Z85.41] History of breast cancer [Z85.3] Cough [R05] Order(s):atorvastatin (LIPITOR) 20 mg tabletTake 1 tablet by mouth daily at bedtime. For cholesterol.Disp: 30 tabletRfl: 5 CBC + DIFF [SQCBCDIF] Order #: [id number] FUTURE COMP METABOLIC PANEL [SQCMP] Order #: [id number] FUTURE LIPID PANEL BASIC [SQLIPB] Order #: [id number] FUTURE HGB A1C [OLWHH1F] Order #: [id number] FUTURE SPIROMETRY - BASELINE AND POST DILATOR [2760030] Order #: [id number] FUTURE budesonide (PULMICORT FLEXHALER) 180 mcg/actuation aepbInhale 2 Puffs as instructed twice daily.Disp: 1 InhalerRfl: 2 Prescriptions as of 07/27/2018 Sig: ALENDRONATE 70 MG TABLET Take 1 tablet by mouth once e* ASPIRIN 81 MG TABLET,DELAYED * Take 81 mg by mouth once burt* * CALCIUM 600 ORAL Take by mouth once daily. FLUOROMETHOLONE 0.1 % EYE MARINE* Use 2 Drops in the left eye t* FLUTICASONE 50 MCG/ACTUATION * Use 1 Blanch in each nostril d* FOLIC ACID 1 MG TABLET Take 2 tablets by mouth once * HYDROCHLOROTHIAZIDE 12.5 MG C* TAKE ONE CAPSULE BY MOUTH ONC* INSULIN ASPART U-100 100 UNI* Inject 5 Units subcutaneously* INSULIN GLARGINE (U-100) 100 * Inject 38 Units subcutaneousl* LORATADINE 10 MG TABLET Take 1 tablet by mouth once d* LOSARTAN 100 MG TABLET Take 1 tablet by mouth once d* METFORMIN 1,000 MG TABLET Take 1 tablet by mouth twice * METHOTREXATE SODIUM 2.5 MG TA* Take 20 mg by mouth every Sun* * CENTRUM SILVER ORAL Take by mouth once daily. OXYBUTYNIN CHLORIDE 5 MG TABL* Take 1 tablet by mouth once d* PANTOPRAZOLE 40 MG TABLET,DEL* Take 1 tablet by mouth once d* SULFASALAZINE 500 MG TABLET,D* ATORVASTATIN 20 MG TABLET Take 1 tablet by mouth daily * BETHANECHOL CHLORIDE 25 MG TA* BLOOD SUGAR DIAGNOSTIC STRIPS Test blood sugar(s) 3 times d* BLOOD-GLUCOSE METER KIT Glucose Meter of Choice - Kit* BUDESONIDE 180 MCG/ACTUATION * Inhale 2 Puffs as instructed * COMPOUNDED PRESCRIPTION Insulin needles-1/2 cc for 10* GABAPENTIN 300 MG CAPSULE Take 1 capsule by mouth once * PEN NEEDLE, DIABETIC 31 GAUGE* Use one needle per dose. 4 pe* MELOXICAM 15 MG TABLET Take 1 tablet by mouth once d* Problem List As Of Date 07/27/2018 Noted Resolved BENIGN HYPERTENSION [I10] INVALID FOR*09/01/2007 Hyperlipidemia [E78.5] INVALID FOR* LOC PRIM OSTEOART-PELVIS [M16.10] INVALID FOR*06/04/2006 Allergic rhinitis [J30.9] INVALID FOR* Diabetes (HCC) [E11.9] INVALID FOR*06/27/2015 Unspecified sleep apnea [G47.30] INVALID FOR*12/07/2013 More... Osteoarthritis [M19.90] INVALID FOR* Irritable bowel syndrome [K58.9] INVALID FOR*11/25/2016 Dysuria [R30.0] INVALID FOR*05/25/2016 Unspecified sinusitis (chronic) [J32.9] INVALID FOR*05/25/2016 Other specified disorder of bladder [596.8] INVALID FOR*11/25/2016 ASYMPTOMATIC VARICOSE VEINS [I83.90] INVALID FOR* REFLUX ESOPHAGITIS [K21.0] ESOPHAGITIS, UNSPECIFIED [K20.9] INVALID FOR*07/30/2008 Malignant neoplasm of female breast (HCC) [C50.*INVALID FOR*05/25/2016 IBS (Irritable Bowel Syndrome) [K58.9] Heme positive stool [R19.5] 11/22/2013 Routine general medical examination at a health*INVALID FOR*11/22/2013 HTN (hypertension) [I10] INVALID FOR* Urge incontinence [N39.41] INVALID FOR* Inflammatory polyarthritis (HCC) [M06.4] More... Type 2 diabetes mellitus with diabetic retinopa*INVALID FOR* History of cervical cancer [Z85.41] More... History of breast cancer [Z85.3] INVALID FOR* H/O left mastectomy [Z90.12] INVALID FOR* Obesity, Class I, BMI 30-34.9 [E66.9] INVALID FOR* Prescriptions ordered this encounter Disp Refills Start End ATORVASTATIN 20 MG TABLET 30 t* 5 07/27/2018 Route: ORAL Sig: Take 1 tablet by mouth daily at bedtime. For cholesterol. BUDESONIDE 180 MCG/ACTUATION BREATH * 1 In* 2 07/27/2018 Route: INHALATION Sig: Inhale 2 Puffs as instructed twice daily. Disposition: Return in about 4 weeks (around 08/24/2018). Follow-up and Disposition History Recorded Encounter Status:Closed by BRAYAN ARITA MD on 07/27/18 PROGRESS Observed: 07/11/2018 Status: COMPLETED Source: [place] 8:30 AM [facility] REPOSITORY [facility] ID: [id number] Author: Vanessa Lorenzo (Pharmacist) Service: (none) Author Type: Pharmacist Type: Progress Notes Filed: 07/11/2018 10:42 AM Note Text: Patient consents to pharmacy collaborative practice agreement. REASON FOR CONSULT: DM? GOALS: A1c <?7% CONSULTING PROVIDER: Dr. Arita?? Date of Consult: 04/20/18 Manisha Keith is a 68 year old female was last seen in [facility]?by PCP, Dr. Brayan Arita MD on 05/05. Also saw Ysabel Edwards CNP on 06/19/18 Patient is presenting today for f/u pharmacotherapy management appointment for DM. At last PharmD visit on 06/13 metformin was changed to BID dosing. INTERIM HISTORY: Reports still having the cough, loratadine is helping some 06/19 - [facility] [employer] appt for back pain, cough - prescribed meloxicam for pain and loratadine for cough ? Works third shift Takes Lantus at 730am Eats breakfast Sleeps 730a-3p Takes all pills around 5-6pm Eats dinner At work eats lunch around 11pm-12am Current DM Medications: Metformin 1,000mg BID Lantus 38 units BID - (0.9 units/kg) morning when gets home and in afternoon before work Humalog 10 units QPM supper Current HTN Medications: Losartan 100mg once daily HCTZ 12.5mg once daily Preventative Medications: ? On JESENIA/ARB: Yes ? On Statin: No ? On ASA: Yes ROS: ? Patient denies CP, SOB, PLUNKETT, blurred vision, dizziness or lightheadedness ? Patient denies symptoms of hypoglycemia (sweating, anxiety, palpitations, hunger, and tremor) ? Patient denies symptoms of hyperglycemia (polyuria, polydipsia, polyphagia) ? Patient denies potential medication adverse effects DIET/EXERCISE/SOCIAL Hx: ? Breakfast:?after work 730am - cereal and banana before going to bed ? Lunch:?after 11pm - sandwich or salad ? Dinner:?before work 5pm - soup and sandwich or something quick, microwave meals (biggest) ? MEDICATIONS: ? Pill bottles are not?present. ? Adherence: denies?missed doses. ? [facility]acy: [facility]? Rx coverage: MMO ? Affordability: no issues ? Diabetes supplies: One Touch Ultra ? 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 no issues since - Diverticulosis of colon (without mention of hemorrhage) - Heme positive stool 2010 - History of cervical cancer regular Paps for life - Hyperlipidemia 2010 - Inflammatory polyarthritis (HCC) Dr. 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 Take with a full glass of water, on an empty stomach; do NOT lie down for 30minutes. aspirin, enteric coated (ASPIRIN, ENTERIC COATED) 81 mg EC tablet Take 81 mg by mouth once daily. bethanechol (URECHOLINE) 25 mg tablet None Entered blood sugar diagnostic (BLOOD GLUCOSE TEST) test strip Test blood sugar(s) 3 times daily. Dx: Type 2 DM - Controlled E11.9 Insulin: YES Blood-Glucose Meter monitoring kit Glucose Meter of Choice - Kit - Dx: Type 2 DM - Controlled E11.9 CALCIUM CARBONATE (CALCIUM 600 ORAL) Take by mouth once daily. COMPOUNDED PRESCRIPTION Insulin needles-1/2 cc for 100 u Use up to 4 a day fluorometholone (FML LIQUID FILM) 0.1 % ophthalmic suspension Use 2 Drops in the left eye twice daily. fluticasone (FLONASE) 50 mcg/actuation nasal spray Use 1 Blanch in each nostril daily at bedtime. Use as directed. folic acid 1 mg tablet Take 2 tablets by mouth once daily. Dr. Johnson gabapentin (NEURONTIN) 300 mg capsule Take 1 capsule by mouth once daily for 91 days. Hydrochlorothiazide 12.5 mg capsule TAKE ONE CAPSULE BY MOUTH ONCE DAILY insulin aspart U-100 (NOVOLOG) 100 unit/mL inpn Inject 10 Units subcutaneously daily with dinner. insulin glargine (LANTUS SOLOSTAR U-100 INSULIN) 100 unit/mL (3 mL) inpn Inject 38 Units subcutaneously twice daily. insulin needles, DISPOSABLE, (PEN NEEDLE) 31 gauge x 5/16 ndle Use one needle per dose. 4 per day. loratadine (CLARITIN) 10 mg tablet Take 1 tablet by mouth once daily. losartan (COZAAR) 100 mg tablet Take 1 tablet by mouth once daily. meloxicam (MOBIC) 15 mg tablet Take 1 tablet by mouth once daily. With food. metFORMIN (GLUCOPHAGE) 1,000 mg tablet Take 1 tablet by mouth twice daily with meals. methotrexate 2.5 mg tablet Take 20 mg by mouth every Tuesday. MULTIVITAMIN W-MINERALS/LUTEIN (CENTRUM SILVER ORAL) Take by mouth once daily. oxybutynin (DITROPAN) 5 mg tablet Take 1 tablet by mouth once daily. pantoprazole DR (PROTONIX) 40 mg tablet Take 1 tablet by mouth once daily. sulfaSALAzine EC (AZULFIDINE EN) 500 mg EC tablet None Entered Rx meds not listed in EPIC: none OTCs: none Herbals: none GLYCEMIC CONTROL: ? Glucometer present at visit: No ? SMBG?s: Date Fasting AM 2 hr PP Before Lunch 2 hr PP Before Dinner 2 hr PP Bedtime 07/10 83 295 314 25 146 288 24 259 67 23 111 197 22 184 212 21 163 228 146 20 146 270 19 173 60 180 18 164 77 120 17 106 167 109 16 142 193 15 125 205 14 217 98 13 149 83 101 ? Hypoglycemia: yes ? How corrected: eat her meal Last 3 Encounter BP Readings: Date: BP: 06/19/2018 134/78 06/13/2018 133/73 05/29/2018 131/70 Wt: 84.6 kg (186 lb 9.6 oz) BMI: 34.13 kg/(m2) LABS Lab Results Component Value Date HBA1C 7.5 07/10/2018 HBA1C 8.9 04/19/2018 HBA1C 8.8 01/10/2018 CMP: Glucose 96 07/10/2018 BUN 14 07/10/2018 Creatinine, Whole Blood (iSTAT) 0.86 07/10/2018 Sodium 140 07/10/2018 Potassium 4.0 07/10/2018 Chloride 103 07/10/2018 CO2 26 07/10/2018 Protein, Total 7.3 07/10/2018 Albumin 3.8 07/10/2018 Calcium 9.4 07/10/2018 Alkaline Phosphatase 47 07/10/2018 Bilirubin, Total 0.3 07/10/2018 AST 19 07/10/2018 ALT 16 07/10/2018 Estimated Creatinine Clearance: 64.9 mL/min (based on SCr of 0.86 mg/dL). Last Lipid Panel Lab Results Component Value Date CHOL 169 01/10/2018 Lab Results Component Value Date HDL 72 01/10/2018 Lab Results Component Value Date LDL 80 01/10/2018 Lab Results Component Value Date TG 84 01/10/2018 Albumin/Creat Ratio (mg/g) Date Value 01/10/2018 Not calculated PHARMACOTHERAPY ASSESSMENT/PLAN: 1. 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, with long-term current use of insulin, macular edema presence unspecified, unspecified laterality, unspecified proliferative retinopathy* ([facility]) - ICD9: 250.50, 362.02, V58.67, ICD10: E11.3599, Z79.4 (primary diagnosis) A1c goal <?7%, patient is not?at goal but improving (7.5% on 07/10). FBGs mostly?at goal and PPBGs not?at goal but patient not testing reliably (sometimes right after meals). Hypoglycemia usually right before a meal but patient not treating it appropriately. Will attempt to split prandial insulin for more even coverage during the day. Renal fxn and LFTs WNL?and appropriate for continued therapy ? CHANGE Novolog to 5 units BID lunch/supper ? CONTINUE Lantus 38 units BID and metformin to 1,000mg BID ? Instructed patient to continue checking FBGs and PPBGs 2- 3x daily ? Discussed treatment of hypoglycemia with rule of 15 2. Mixed hyperlipidemia - ICD9: 272.2, ICD10: E78.2 Pt is not prescribed statin therapy (indicated for high?intensity d/t DM?and ASCVD risk score 14%). Will discuss at future visits Patient is scheduled to see PCP 07/27. Patient to return to clinic for PharmD f/u on 08/29/18. Patient verbalized understanding of instructions. Vanessa Lorenzo, NicolasaD, BCPS CNOV Observed: 07/11/2018 Status: COMPLETED Source: [place] 8:30 AM [facility] REPOSITORY Office Visit ([facility]) MANISHA KEITH ([id number]) 1950 F Date Time Provider Department 07/11/18 8:30 AM MAURA (PHARMACIST)VANESSA During your visit today, we recorded the following information about you: VANESSA LORENZO PHARMACIST 07/11/2018 10:42 AM Signed Patient consents to pharmacy collaborative practice agreement. REASON FOR CONSULT: DM? GOALS: A1c <?7% CONSULTING PROVIDER: Dr. Arita?? Date of Consult: 04/20/18 Manisha Keith is a 68 year old female was last seen in [facility]?by PCP, Dr. Brayan Arita MD on 05/05. Also saw Ysabel Edwards CNP on 06/19/18 Patient is presenting today for f/u pharmacotherapy management appointment for DM. At last PharmD visit on 06/13 metformin was changed to BID dosing. INTERIM HISTORY: Reports still having the cough, loratadine is helping some 06/19 - [facility] appt for back pain, cough - prescribed meloxicam for pain and loratadine for cough ? Works third shift Takes Lantus at 730am Eats breakfast Sleeps 730a-3p Takes all pills around 5-6pm Eats dinner At work eats lunch around 11pm-12am Current DM Medications: Metformin 1,000mg BID Lantus 38 units BID - (0.9 units/kg) morning when gets home and in afternoon before work Humalog 10 units QPM supper Current HTN Medications: Losartan 100mg once daily HCTZ 12.5mg once daily Preventative Medications: ? On JESENIA/ARB: Yes ? On Statin: No ? On ASA: Yes ROS: ? Patient denies CP, SOB, PLUNKETT, blurred vision, dizziness or lightheadedness ? Patient denies symptoms of hypoglycemia (sweating, anxiety, palpitations, hunger, and tremor) ? Patient denies symptoms of hyperglycemia (polyuria, polydipsia, polyphagia) ? Patient denies potential medication adverse effects DIET/EXERCISE/SOCIAL Hx: ? Breakfast:?after work 730am - cereal and banana before going to bed ? Lunch:?after 11pm - sandwich or salad ? Dinner:?before work 5pm - soup and sandwich or something quick, microwave meals (biggest) ? MEDICATIONS: ? Pill bottles are not?present. ? Adherence: denies?missed doses. ? [facility]acy: [facility]? Rx coverage: MMO ? Affordability: no issues ? Diabetes supplies: One Touch Ultra ? 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 no issues since - Diverticulosis of colon (without mention of hemorrhage) - Heme positive stool 2010 - History of cervical cancer regular Paps for life - Hyperlipidemia 2010 - Inflammatory polyarthritis (HCC) Dr. 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 Take with a full glass of water, on an empty stomach; do NOT lie down for 30minutes. aspirin, enteric coated (ASPIRIN, ENTERIC COATED) 81 mg EC tablet Take 81 mg by mouth once daily. bethanechol (URECHOLINE) 25 mg tablet None Entered blood sugar diagnostic (BLOOD GLUCOSE TEST) test strip Test blood sugar(s) 3 times daily. Dx: Type 2 DM - Controlled E11.9 Insulin: YES Blood-Glucose Meter monitoring kit Glucose Meter of Choice - Kit - Dx: Type 2 DM - Controlled E11.9 CALCIUM CARBONATE (CALCIUM 600 ORAL) Take by mouth once daily. COMPOUNDED PRESCRIPTION Insulin needles-1/2 cc for 100 u Use up to 4 a day fluorometholone (FML LIQUID FILM) 0.1 % ophthalmic suspension Use 2 Drops in the left eye twice daily. fluticasone (FLONASE) 50 mcg/actuation nasal spray Use 1 Blanch in each nostril daily at bedtime. Use as directed. folic acid 1 mg tablet Take 2 tablets by mouth once daily. Dr. Johnson gabapentin (NEURONTIN) 300 mg capsule Take 1 capsule by mouth once daily for 91 days. Hydrochlorothiazide 12.5 mg capsule TAKE ONE CAPSULE BY MOUTH ONCE DAILY insulin aspart U-100 (NOVOLOG) 100 unit/mL inpn Inject 10 Units subcutaneously daily with dinner. insulin glargine (LANTUS SOLOSTAR U-100 INSULIN) 100 unit/mL (3 mL) inpn Inject 38 Units subcutaneously twice daily. insulin needles, DISPOSABLE, (PEN NEEDLE) 31 gauge x 5/16 ndle Use one needle per dose. 4 per day. loratadine (CLARITIN) 10 mg tablet Take 1 tablet by mouth once daily. losartan (COZAAR) 100 mg tablet Take 1 tablet by mouth once daily. meloxicam (MOBIC) 15 mg tablet Take 1 tablet by mouth once daily. With food. metFORMIN (GLUCOPHAGE) 1,000 mg tablet Take 1 tablet by mouth twice daily with meals. methotrexate 2.5 mg tablet Take 20 mg by mouth every Tuesday. MULTIVITAMIN W-MINERALS/LUTEIN (CENTRUM SILVER ORAL) Take by mouth once daily. oxybutynin (DITROPAN) 5 mg tablet Take 1 tablet by mouth once daily. pantoprazole DR (PROTONIX) 40 mg tablet Take 1 tablet by mouth once daily. sulfaSALAzine EC (AZULFIDINE EN) 500 mg EC tablet None Entered Rx meds not listed in EPIC: none OTCs: none Herbals: none GLYCEMIC CONTROL: ? Glucometer present at visit: No ? SMBG?s: Date Fasting AM 2 hr PP Before Lunch 2 hr PP Before Dinner 2 hr PP Bedtime 07/10 83 295 314 25 146 288 24 259 67 23 111 197 22 184 212 21 163 228 146 20 146 270 19 173 60 180 18 164 77 120 17 106 167 109 16 142 193 15 125 205 14 217 98 13 149 83 101 ? Hypoglycemia: yes ? How corrected: eat her meal Last 3 Encounter BP Readings: Date: BP: 06/19/2018 134/78 06/13/2018 133/73 05/29/2018 131/70 Wt: 84.6 kg (186 lb 9.6 oz) BMI: 34.13 kg/(m2) LABS Lab Results Component Value Date HBA1C 7.5 07/10/2018 HBA1C 8.9 04/19/2018 HBA1C 8.8 01/10/2018 CMP: Glucose 96 07/10/2018 BUN 14 07/10/2018 Creatinine, Whole Blood (iSTAT) 0.86 07/10/2018 Sodium 140 07/10/2018 Potassium 4.0 07/10/2018 Chloride 103 07/10/2018 CO2 26 07/10/2018 Protein, Total 7.3 07/10/2018 Albumin 3.8 07/10/2018 Calcium 9.4 07/10/2018 Alkaline Phosphatase 47 07/10/2018 Bilirubin, Total 0.3 07/10/2018 AST 19 07/10/2018 ALT 16 07/10/2018 Estimated Creatinine Clearance: 64.9 mL/min (based on SCr of 0.86 mg/dL). Last Lipid Panel Lab Results Component Value Date CHOL 169 01/10/2018 Lab Results Component Value Date HDL 72 01/10/2018 Lab Results Component Value Date LDL 80 01/10/2018 Lab Results Component Value Date TG 84 01/10/2018 Albumin/Creat Ratio (mg/g) Date Value 01/10/2018 Not calculated PHARMACOTHERAPY ASSESSMENT/PLAN: 1. 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, with long-term current use of insulin, macular edema presence unspecified, unspecified laterality, unspecified proliferative retinopathy* ([facility]) - ICD9: 250.50, 362.02, V58.67, ICD10: E11.3599, Z79.4 (primary diagnosis) A1c goal <?7%, patient is not?at goal but improving (7.5% on 07/10). FBGs mostly?at goal and PPBGs not?at goal but patient not testing reliably (sometimes right after meals). Hypoglycemia usually right before a meal but patient not treating it appropriately. Will attempt to split prandial insulin for more even coverage during the day. Renal fxn and LFTs WNL?and appropriate for continued therapy ? CHANGE Novolog to 5 units BID lunch/supper ? CONTINUE Lantus 38 units BID and metformin to 1,000mg BID ? Instructed patient to continue checking FBGs and PPBGs 2- 3x daily ? Discussed treatment of hypoglycemia with rule of 15 2. Mixed hyperlipidemia - ICD9: 272.2, ICD10: E78.2 Pt is not prescribed statin therapy (indicated for high?intensity d/t DM?and ASCVD risk score 14%). Will discuss at future visits Patient is scheduled to see PCP 07/27. Patient to return to clinic for PharmD f/u on 08/29/18. Patient verbalized understanding of instructions. Vanessa Lorenzo PharmD, [facility] VANESSA LORENZO, PHARMACIST 07/11/2018 8:56 AM Signed Lantus 38 units twice daily Metformin twice daily Humalog 5 units with lunch and dinner Vanessa Lorenzo PharmD, [facility] [phone] What to do if low sugar (less than 70) or feeling a low sugar -- Test your blood sugar level if you can. If you think you are low, and cannot test, treat with one of the following. Each contain 15 grams of carbohydrate. 1/2 cup fruit juice 1 tube of instant glucose gel 1/2 cup soda (not diet) 3 peppermint candies 3 glucose tablets 5 lifesaver candies Rule of 15 Eat one serving of carbohydrate (15 grams). Wait 15 minutes, retest. If your blood sugar is less than 70, repeat treatment. If your next meal is more than 1/2 hour away, follow up with a small snack. 1/2 sandwich, 1 oz cheese with 4-6 crackers or 1 tsp peanut butter and 6 crackers. If you missed a meal : EAT your meal. If you still don't feel better call your Physician, Nurse second rigger or 911 Record the event in your log, date/time, possible causes, and what you did to treat it. Referring Provider: SELF [[id number]] Allergies As of Date: 07/11/2018 Noted Allergy Reaction JESENIA INHIBITORS 03/27/2014 3 - Cough NSAIDS (NON-STEROIDAL ANTI-INFLAM*05/09/2009 8 - GI Upset TAPE (ADHESIVE TAPE (ROSINS)) 10/26/2016 14 - Other: See Comments Comments: Blisters from surgical tape Date Reviewed: 06/19/2018 Reviewed by: Kerry Spivey Ma - Fully Assessed Reason for Visit: Allied Health Visit [5] Cmt: DM follow-up Primary Visit Diagnosis: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, with long-term current use of insulin, macular edema presence unspecified, unspecified laterality, unspecified proliferative retinopathy* ([facility]) [E11.3599, Z79.4] Other Visit Diagnosis:Mixed hyperlipidemia [E78.2] Order(s):insulin aspart U-100 (NOVOLOG) 100 unit/mL inpnInject 5 Units subcutaneously twice daily before meals. Lunch and dinnerDisp: Rfl: Prescriptions as of 07/11/2018 Sig: INSULIN ASPART U-100 100 UNI* Inject 5 Units subcutaneously* MELOXICAM 15 MG TABLET Take 1 tablet by mouth once d* LORATADINE 10 MG TABLET Take 1 tablet by mouth once d* INSULIN GLARGINE (U-100) 100 * Inject 38 Units subcutaneousl* BETHANECHOL CHLORIDE 25 MG TA* SULFASALAZINE 500 MG TABLET,D* METFORMIN 1,000 MG TABLET Take 1 tablet by mouth twice * PANTOPRAZOLE 40 MG TABLET,DEL* Take 1 tablet by mouth once d* GABAPENTIN 300 MG CAPSULE Take 1 capsule by mouth once * BLOOD SUGAR DIAGNOSTIC STRIPS Test blood sugar(s) 3 times d* BLOOD-GLUCOSE METER KIT Glucose Meter of Choice - Kit* ALENDRONATE 70 MG TABLET Take 1 tablet by mouth once e* LOSARTAN 100 MG TABLET Take 1 tablet by mouth once d* OXYBUTYNIN CHLORIDE 5 MG TABL* Take 1 tablet by mouth once d* FLUTICASONE 50 MCG/ACTUATION * Use 1 Blanch in each nostril d* HYDROCHLOROTHIAZIDE 12.5 MG C* TAKE ONE CAPSULE BY MOUTH ONC* COMPOUNDED PRESCRIPTION Insulin needles-1/2 cc for 10* FLUOROMETHOLONE 0.1 % EYE MARINE* Use 2 Drops in the left eye t* ASPIRIN 81 MG TABLET,DELAYED * Take 81 mg by mouth once burt* METHOTREXATE SODIUM 2.5 MG TA* Take 20 mg by mouth every Sun* PEN NEEDLE, DIABETIC 31 GAUGE* Use one needle per dose. 4 pe* FOLIC ACID 1 MG TABLET Take 2 tablets by mouth once * * CALCIUM 600 ORAL Take by mouth once daily. * CENTRUM SILVER ORAL Take by mouth once daily. Problem List As Of Date 07/11/2018 Noted Resolved BENIGN HYPERTENSION [I10] INVALID FOR*09/01/2007 Hyperlipidemia [E78.5] INVALID FOR* LOC PRIM OSTEOART-PELVIS [M16.10] INVALID FOR*06/04/2006 Allergic rhinitis [J30.9] INVALID FOR* Diabetes (HCC) [E11.9] INVALID FOR*06/27/2015 Unspecified sleep apnea [G47.30] INVALID FOR*12/07/2013 More... Osteoarthritis [M19.90] INVALID FOR* Irritable bowel syndrome [K58.9] INVALID FOR*11/25/2016 Dysuria [R30.0] INVALID FOR*05/25/2016 Unspecified sinusitis (chronic) [J32.9] INVALID FOR*05/25/2016 Other specified disorder of bladder [596.8] INVALID FOR*11/25/2016 ASYMPTOMATIC VARICOSE VEINS [I83.90] INVALID FOR* REFLUX ESOPHAGITIS [K21.0] ESOPHAGITIS, UNSPECIFIED [K20.9] INVALID FOR*07/30/2008 Malignant neoplasm of female breast (HCC) [C50.*INVALID FOR*05/25/2016 IBS (Irritable Bowel Syndrome) [K58.9] Heme positive stool [R19.5] 11/22/2013 Routine general medical examination at a [facility]*INVALID FOR*11/22/2013 HTN (hypertension) [I10] INVALID FOR* Urge incontinence [N39.41] INVALID FOR* Inflammatory polyarthritis (HCC) [M06.4] More... Type 2 diabetes mellitus with diabetic retinopa*INVALID FOR* History of cervical cancer [Z85.41] More... History of breast cancer [Z85.3] INVALID FOR* H/O left mastectomy [Z90.12] INVALID FOR* Obesity, Class I, BMI 30-34.9 [E66.9] INVALID FOR* Other instructions from your clinician: Lantus 38 units twice daily Metformin twice daily Humalog 5 units with lunch and dinner Vanessa Lorenzo, PharmD, [facility] [phone] What to do if low sugar (less than 70) or feeling a low sugar -- Test your blood sugar level if you can. If you think you are low, and cannot test, treat with one of the following. Each contain 15 grams of carbohydrate. 1/2 cup fruit juice 1 tube of instant glucose gel 1/2 cup soda (not diet) 3 peppermint candies 3 glucose tablets 5 lifesaver candies Rule of 15 Eat one serving of carbohydrate (15 grams). Wait 15 minutes, retest. If your blood sugar is less than 70, repeat treatment. If your next meal is more than 1/2 hour away, follow up with a small snack. 1/2 sandwich, 1 oz cheese with 4-6 crackers or 1 tsp peanut butter and 6 crackers. If you missed a meal : EAT your meal. If you still don't feel better call your Physician, Nurse second rigger or 911 Record the event in your log, date/time, possible causes, and what you did to treat it. Prescriptions ordered this encounter Disp Refills Start End INSULIN ASPART U-100 100 UNIT/ML TEJADA* 07/11/2018 Class: Med Update Route: SUBCUTANEOUS Sig: Inject 5 Units subcutaneously twice daily before meals. Lunch and dinner Medications Discontinued During This Encounter insulin aspart U-100 (NOVOLOG) 100 u* 5 Pen 5 06/13/2018 07/11/2018 Route: SUBCUTANEOUS Sig: Inject 10 Units subcutaneously daily with dinner. Disc: Adjust Sig - Block E-Cancel Encounter Status:Closed by MAURA (PHARMACIST)VANESSA on 07/11/18 COMP METABOLIC PANEL Collected: 07/10/2018 Status: F Source: [place] 2:46 PM [facility] REPOSITORY TYPE CODE TESTS RESULT OUT OF REFERENCE UNITS RANGE LAB TP 6.3-8.0 g/dL Protein, Total 7.3 LAB ALB 3.9-4.9 g/dL Low Albumin 3.8 LAB CA 8.5-10.2 mg/dL Calcium, Total 9.4 LAB TBIL 0.2-1.3 mg/dL Bilirubin, Total 0.3 LAB ALKP 34-123 U/L Alkaline Phosphatase 47 LAB AST 13-35 U/L AST 19 LAB GLU 74-99 mg/dL Glucose 96 Result Comment: The [place] Diabetes Association (ADA) provides guidance for cutoff values for fasting glucose and random glucose. The ADA defines fasting as no caloric intake for at least 8 hours. Fas ting plasma glucose results between 100 to 125 mg/dL indicate increased risk for diabetes (prediabetes). Fasting plasma glucose results greater than or equal to 126 mg/dL meet the criteria for diagnosis of diabetes. In the absence of unequivocal hyperglycemia, results should be confirmed by repeat testing. In a patient with classic symptoms of hyperglycemia or hyperglycemic crisis, random plasma glucose results greater than or equal to 200 mg/dL meet the criteria for diagnosis of diabetes. Reference: Standards of Medical Care in Diabetes 2016, [place] Diabetes Association. Diabetes Care. 2016.39(Suppl 1). LAB BUN 7-21 mg/dL BUN 14 LAB CRET 0.58-0.96 mg/dL Creatinine 0.86 LAB NA 136-144 mmol/L Sodium 140 LAB K 3.7-5.1 mmol/L Potassium 4.0 LAB CL 97-105 mmol/L Chloride 103 LAB CO2 22-30 mmol/L CO2 26 LAB AGAP 9-18 mmol/L Anion Gap 11 LAB ALT 7-38 U/L ALT 16 LAB GFRAA eGFR- Amer. >60 LAB GFRNAA . eGFR-All Other Races >60 Result Comment: eGFR (Estimated GFR) Units of measure: mL/min/1.73 meters squared eGFR is derived from the reexpressed MDRD Study equation using the following parameters: serum creatinine, age, gender and race. The creatinine assay has been calibrated to be traceable to IDMS. An eGFR <60 mL/min/1.73m2 for >3 months is consistent with chronic kidney disease. Refer to KDOQI guidelines for clinical interpretation. In patients with unstable renal function, e.g. those with acute kidney injury, the eGFR may not accurately reflect actual GFR. Performed By: #### CMP, HBA1C #### [facility] [employer] [address] [place], [place] [address] HEMOGLOBIN A1C Collected: 07/10/2018 Status: F Source: [place] 2:46 PM [facility] REPOSITORY TYPE CODE TESTS RESULT OUT OF REFERENCE UNITS RANGE LAB HGBA1C 4.3-5.6 % High Hemoglobin A1c 7.5 Result Comment: [place] Diabetes Association guidelines indicate that patients with HgbA1c in the range 5.7-6.4% are at increased risk for development of diabetes, and intervention by lifestyle modification may be beneficial. HgbA1c greater or equal to 6.5% is considered diagnostic of diabetes. LAB HBA0 mg/dL Est. Average Glucose 169 Result Comment: eAG: (Estimated average glucose) is a calculated value from HgbA1c and is event representative of the average blood glucose level in the last 2-3 month period. Performed By: #### CMP, HBA1C #### [facility] [employer] [address] [place], [place] [address] PROGRESS Observed: 06/19/2018 Status: COMPLETED Source: [place] 9:06 AM [facility] REPOSITORY HNO ID: [id number] Author: Ysabel Edwards Service: (none) Author Type: Nurse Practitioner Type: Progress Notes Filed: 06/19/2018 9:27 AM Note Text: This is a 68 year old female who presents today with: Patient presents with: Back Pain HISTORY OF PRESENT ILLNESS: Manisha Keith is a 68 year old female. Patient presents with: Back Pain Pt presents today with complaint of back pain. Refers that it is in the lower back. Moreso on the left side. Doesn't recall any injury. No n/t anywhere. No loss of bowel or bladder. Has taken OTC pain medication. Refers that she also has used a cream that was given to her by the chiropractor, which has helped. Uncontrolled DM with Last A1C was 8.9. + cough. Has had for months. Reports two courses of antibiotics without improving. On Flonase. Coughing stuff up. + draining. Questions if allergies. PAST MEDICAL HISTORY: PAST MEDICAL HISTORY Diagnosis Date - Allergic rhinitis, cause unspecified - Breast cancer (HCC) age 34-had lump, cancerous cells. no issues since - Diverticulosis of colon (without mention of hemorrhage) - Heme positive stool 2010 - History of cervical cancer regular Paps for life - Hyperlipidemia 2010 - Inflammatory polyarthritis (HCC) Dr. 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) - Type II or unspecified type diabetes mellitus without mention of complication, not stated as uncontrolled - Unspecified essential hypertension PAST SURGICAL HISTORY Procedure Laterality Date - APPENDECTOMY - COLONOSCOP W/ OR W/O RUSTH SPEC 06/26/09 - EGD 2010 - ERCP W/O BRUSH/WASH SPECIMEN 07/23/2008 Cholangiopancreatography (ERCP) - MASTECTOMY age 34 Mastectomy - simple - REMV 2ND CATARACT,CORN-SCLER SECTN Cataract removal BILATERAL - TOTAL ABDOM HYSTERECTOMY age 27 Hysterectomy, MARQUES cervical cancer ALLERGIES Jesenia Inhibitors; Nsaids (Non-Steroidal Anti-Inflammatory Drug); Tape [Adhesive Tape (Rosins)] MEDICATIONS Current Outpatient Prescriptions: insulin aspart U-100 (NOVOLOG) 100 unit/mL inpn Inject 10 Units subcutaneously daily with dinner. insulin glargine (LANTUS SOLOSTAR U-100 INSULIN) 100 unit/mL (3 mL) inpn Inject 38 Units subcutaneously twice daily. bethanechol (URECHOLINE) 25 mg tablet sulfaSALAzine EC (AZULFIDINE EN) 500 mg EC tablet metFORMIN (GLUCOPHAGE) 1,000 mg tablet Take 1 tablet by mouth twice daily with meals. pantoprazole DR (PROTONIX) 40 mg tablet Take 1 tablet by mouth once daily. gabapentin (NEURONTIN) 300 mg capsule Take 1 capsule by mouth once daily for 91 days. blood sugar diagnostic (BLOOD GLUCOSE TEST) test strip Test blood sugar(s) 3 times daily. Dx: Type 2 DM - Controlled E11.9 Insulin: YES Blood-Glucose Meter monitoring kit Glucose Meter of Choice - Kit - Dx: Type 2 DM - Controlled E11.9 alendronate (FOSAMAX) 70 mg tablet Take 1 tablet by mouth once each week. Take with a full glass of water, on an empty stomach; do NOT lie down for 30minutes. losartan (COZAAR) 100 mg tablet Take 1 tablet by mouth once daily. oxybutynin (DITROPAN) 5 mg tablet Take 1 tablet by mouth once daily. fluticasone (FLONASE) 50 mcg/actuation nasal spray Use 1 Blanch in each nostril daily at bedtime. Use as directed. Hydrochlorothiazide 12.5 mg capsule TAKE ONE CAPSULE BY MOUTH ONCE DAILY COMPOUNDED PRESCRIPTION Insulin needles-1/2 cc for 100 uUse up to 4 a day fluorometholone (FML LIQUID FILM) 0.1 % ophthalmic suspension Use 2 Drops in the left eye twice daily. aspirin, enteric coated (ASPIRIN, ENTERIC COATED) 81 mg EC tablet Take 81 mg by mouth once daily. methotrexate 2.5 mg tablet Take 20 mg by mouth every Tuesday. insulin needles, DISPOSABLE, (PEN NEEDLE) 31 gauge x 16 ndle Use one needle per dose. 4 per day. folic acid 1 mg tablet Take 2 tablets by mouth once daily. Dr. Johnson CALCIUM CARBONATE (CALCIUM 600 ORAL) Take by mouth once daily. MULTIVITAMIN W-MINERALS/LUTEIN (CENTRUM SILVER ORAL) Take by mouth once daily. No current facility-administered medications for this visit. FAMILY HISTORY Problem Relation Age of Onset - None Mother - None Father - Breast Cancer Maternal Aunt - Stroke Sister - Cancer Sister - COPD Sister Social History Marital status: Spouse name: Years of education: Number of children: 2 Occupational History Occupation Employer Comment [employer] Social History Main Topics Smoking status: Former Smoker Packs/day: 0.75 Years: 30.00 Types: Cigarettes Quit date: 08/15/2000 Smokeless tobacco: Never Used Alcohol use: Yes Comment: rarely Drug use: No Sexual activity: No EXAM: BP 134/78 Pulse 84 Resp 20 Wt 84.6 kg (186 lb 9.6 oz) BMI 34.13 kg/m? PHYSICAL EXAM: General Appearance: Well appearing, alert, in no acute distress, well-hydrated, well nourished.. Skin: Skin color, texture, turgor normal, no suspicious rashes or lesions. Head: Normocephalic, no masses, lesions, tenderness or abnormalities. Eyes: Anicteric sclera. Pupils are equally round and reactive to light. Extraocular movements are intact. . Ears: External ears normal, canals clear, Normal TMs bilaterally. Oropharynx: Lips, mucosa, and tongue normal, teeth and gums normal, oropharynx normal. Neck: Supple, no adenopathy Back:no pain to palpation of vertebrae, limited flexion, good extension -- otherwise ROM intact. + muscle tenderness left lower back, reflexes are 2+ and symmetric, motor and sensory appear to be normal, negative SLR test, no evidence of scoliosis Lungs: Lungs clear to auscultation. No wheezing, rhonchi, rales. Heart: RRR without murmur, gallop, or rubs. No ectopy. Extremities: No deformities, edema, skin discoloration, clubbing or cyanosis. = strength. Neurologic: Gait normal. ASSESSMENT/PLAN: 1. Acute left-sided low back pain without sciatica - ICD9: 724.2, ICD10: M54.5 (primary diagnosis) low back pain - Ice for localized tenderness - Warm moist heat for 20 min three times a day - NSAIDS- see orders - MELOXICAM 15 MG TABLET - X 5-7 days with food. 2. Cough - ICD9: 786.2, ICD10: R05 Ongoing cough. start loratadine daily. Continue flonase. Discussed treatment plan and patient voices understanding. Patient's questions answered appropriately. Medications and potential side effects were discussed and patient voices understanding. Return to the office as scheduled or as needed for worsening/no improvement. Ysabel Edwards APRN.DENTAL DETAIL REPRESENTATIVE CNOV Observed: 06/19/2018 Status: COMPLETED Source: [place] 9:00 AM [facility] REPOSITORY Office Visit (FAMPWS) MANISHA KEITH ([id number]) 1950 F Date Time Provider Department 06/19/18 9:00 AM YSABEL EDWARDS ([facility]) FAMPWS During your visit today, we recorded the following information about you: Pulse Respiration Blood pressure Weight 84/minute 20/minute 134/78 84.6 kg Kerry Patric Tello 06/19/2018 9:07 AM Signed Is the patient having any pain? Yes LOCATION: lower left back PAIN SCALE: 8 on a scale of 0-10 PAIN CHARACTER: shooting DURATION: (How long have you had the pain?) 3 days FREQUENCY: (How often does the pain occur?) occurs intermittently AGGRAVATING FACTORS: walking, arising from a sitting position and bending over ALLEVIATING FACTORS: application of numbing cream MEDICATIONS: OTC pain reliever Ysabel Edwards APRN.CNP 06/19/2018 9:27 AM Signed This is a 68 year old female who presents today with: Patient presents with: Back Pain HISTORY OF PRESENT ILLNESS: Manisha Keith is a 68 year old female. Patient presents with: Back Pain Pt presents today with complaint of back pain. Refers that it is in the lower back. Moreso on the left side. Doesn't recall any injury. No n/t anywhere. No loss of bowel or bladder. Has taken OTC pain medication. Refers that she also has used a cream that was given to her by the chiropractor, which has helped. Uncontrolled DM with Last A1C was 8.9. + cough. Has had for months. Reports two courses of antibiotics without improving. On Flonase. Coughing stuff up. + draining. Questions if allergies. PAST MEDICAL HISTORY: PAST MEDICAL HISTORY Diagnosis Date - Allergic rhinitis, cause unspecified - Breast cancer (HCC) age 34-had lump, cancerous cells. no issues since - Diverticulosis of colon (without mention of hemorrhage) - Heme positive stool 2010 - History of cervical cancer regular Paps for life - Hyperlipidemia 2010 - Inflammatory polyarthritis (HCC) Dr. 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) - Type II or unspecified type diabetes mellitus without mention of complication, not stated as uncontrolled - Unspecified essential hypertension PAST SURGICAL HISTORY Procedure Laterality Date - APPENDECTOMY - COLONOSCOP W/ OR W/O BRSH SPEC 06/26/09 - EGD 2010 - ERCP W/O BRUSH/WASH SPECIMEN 07/23/2008 Cholangiopancreatography (ERCP) - MASTECTOMY age 34 Mastectomy - simple - REMV 2ND CATARACT,CORN-SCLER SECTN Cataract removal BILATERAL - TOTAL ABDOM HYSTERECTOMY age 27 Hysterectomy, MARQUES cervical cancer ALLERGIES Jesenia Inhibitors; Nsaids (Non-Steroidal Anti-Inflammatory Drug); Tape [Adhesive Tape (Rosins)] MEDICATIONS Current Outpatient Prescriptions: insulin aspart U-100 (NOVOLOG) 100 unit/mL inpn Inject 10 Units subcutaneously daily with dinner. insulin glargine (LANTUS SOLOSTAR U-100 INSULIN) 100 unit/mL (3 mL) inpn Inject 38 Units subcutaneously twice daily. bethanechol (URECHOLINE) 25 mg tablet sulfaSALAzine EC (AZULFIDINE EN) 500 mg EC tablet metFORMIN (GLUCOPHAGE) 1,000 mg tablet Take 1 tablet by mouth twice daily with meals. pantoprazole DR (PROTONIX) 40 mg tablet Take 1 tablet by mouth once daily. gabapentin (NEURONTIN) 300 mg capsule Take 1 capsule by mouth once daily for 91 days. blood sugar diagnostic (BLOOD GLUCOSE TEST) test strip Test blood sugar(s) 3 times daily. Dx: Type 2 DM - Controlled E11.9 Insulin: YES Blood-Glucose Meter monitoring kit Glucose Meter of Choice - Kit - Dx: Type 2 DM - Controlled E11.9 alendronate (FOSAMAX) 70 mg tablet Take 1 tablet by mouth once each week. Take with a full glass of water, on an empty stomach; do NOT lie down for 30minutes. losartan (COZAAR) 100 mg tablet Take 1 tablet by mouth once daily. oxybutynin (DITROPAN) 5 mg tablet Take 1 tablet by mouth once daily. fluticasone (FLONASE) 50 mcg/actuation nasal spray Use 1 Blanch in each nostril daily at bedtime. Use as directed. Hydrochlorothiazide 12.5 mg capsule TAKE ONE CAPSULE BY MOUTH ONCE DAILY COMPOUNDED PRESCRIPTION Insulin needles-1/2 cc for 100 uUse up to 4 a day fluorometholone (FML LIQUID FILM) 0.1 % ophthalmic suspension Use 2 Drops in the left eye twice daily. aspirin, enteric coated (ASPIRIN, ENTERIC COATED) 81 mg EC tablet Take 81 mg by mouth once daily. methotrexate 2.5 mg tablet Take 20 mg by mouth every Tuesday. insulin needles, DISPOSABLE, (PEN NEEDLE) 31 gauge x 5/16 ndle Use one needle per dose. 4 per day. folic acid 1 mg tablet Take 2 tablets by mouth once daily. Dr. Johnson CALCIUM CARBONATE (CALCIUM 600 ORAL) Take by mouth once daily. MULTIVITAMIN W-MINERALS/LUTEIN (CENTRUM SILVER ORAL) Take by mouth once daily. No current facility-administered medications for this visit. FAMILY HISTORY Problem Relation Age of Onset - None Mother - None Father - Breast Cancer Maternal Aunt - Stroke Sister - Cancer Sister - COPD Sister Social History Marital status: Spouse name: Years of education: Number of children: 2 Occupational History Occupation Employer Comment [employer] Social History Main Topics Smoking status: Former Smoker Packs/day: 0.75 Years: 30.00 Types: Cigarettes Quit date: 08/15/2000 Smokeless tobacco: Never Used Alcohol use: Yes Comment: rarely Drug use: No Sexual activity: No EXAM: BP 134/78 Pulse 84 Resp 20 Wt 84.6 kg (186 lb 9.6 oz) BMI 34.13 kg/m? PHYSICAL EXAM: General Appearance: Well appearing, alert, in no acute distress, well-hydrated, well nourished.. Skin: Skin color, texture, turgor normal, no suspicious rashes or lesions. Head: Normocephalic, no masses, lesions, tenderness or abnormalities. Eyes: Anicteric sclera. Pupils are equally round and reactive to light. Extraocular movements are intact. . Ears: External ears normal, canals clear, Normal TMs bilaterally. Oropharynx: Lips, mucosa, and tongue normal, teeth and gums normal, oropharynx normal. Neck: Supple, no adenopathy Back:no pain to palpation of vertebrae, limited flexion, good extension -- otherwise ROM intact. + muscle tenderness left lower back, reflexes are 2+ and symmetric, motor and sensory appear to be normal, negative SLR test, no evidence of scoliosis Lungs: Lungs clear to auscultation. No wheezing, rhonchi, rales. Heart: RRR without murmur, gallop, or rubs. No ectopy. Extremities: No deformities, edema, skin discoloration, clubbing or cyanosis. = strength. Neurologic: Gait normal. ASSESSMENT/PLAN: 1. Acute left-sided low back pain without sciatica - ICD9: 724.2, ICD10: M54.5 (primary diagnosis) low back pain - Ice for localized tenderness - Warm moist heat for 20 min three times a day - NSAIDS- see orders - MELOXICAM 15 MG TABLET - X 5-7 days with food. 2. Cough - ICD9: 786.2, ICD10: R05 Ongoing cough. start loratadine daily. Continue flonase. Discussed treatment plan and patient voices understanding. Patient's questions answered appropriately. Medications and potential side effects were discussed and patient voices understanding. Return to the office as scheduled or as needed for worsening/no improvement. Ysabel Edwards APRN.CAITIE Edwards APRN.CAITIE 06/19/2018 9:20 AM Signed 1. Start meloxicam daily X 5-7 days. Take with food. 2. Moist heat/ice to the back. 3. Gentle stretching. 4. Start claritin (loratadine) daily for cough. 5. If no better/worsening, please let us know. Referring Provider: SELF [[id number]] Allergies As of Date: 06/19/2018 Noted Allergy Reaction JESENIA INHIBITORS 03/27/2014 3 - Cough NSAIDS (NON-STEROIDAL ANTI-INFLAM*05/09/2009 8 - GI Upset TAPE (ADHESIVE TAPE (ROSINS)) 10/26/2016 14 - Other: See Comments Comments: Blisters from surgical tape Date Reviewed: 06/19/2018 Reviewed by: Kerry Spivey Ma - Fully Assessed Reason for Visit: Back Pain [12] Primary Visit Diagnosis:Acute left-sided low back pain without sciatica [M54.5] Other Visit Diagnosis:Cough [R05] Order(s):meloxicam (MOBIC) 15 mg tabletTake 1 tablet by mouth once daily. With food.Disp: 14 tabletRfl: 0 loratadine (CLARITIN) 10 mg tabletTake 1 tablet by mouth once daily.Disp: 30 tabletRfl: 5 Prescriptions as of 06/19/2018 Sig: INSULIN ASPART U-100 100 UNI* Inject 10 Units subcutaneousl* INSULIN GLARGINE (U-100) 100 * Inject 38 Units subcutaneousl* BETHANECHOL CHLORIDE 25 MG TA* SULFASALAZINE 500 MG TABLET,D* METFORMIN 1,000 MG TABLET Take 1 tablet by mouth twice * PANTOPRAZOLE 40 MG TABLET,DEL* Take 1 tablet by mouth once d* GABAPENTIN 300 MG CAPSULE Take 1 capsule by mouth once * BLOOD SUGAR DIAGNOSTIC STRIPS Test blood sugar(s) 3 times d* BLOOD-GLUCOSE METER KIT Glucose Meter of Choice - Kit* ALENDRONATE 70 MG TABLET Take 1 tablet by mouth once e* LOSARTAN 100 MG TABLET Take 1 tablet by mouth once d* OXYBUTYNIN CHLORIDE 5 MG TABL* Take 1 tablet by mouth once d* FLUTICASONE 50 MCG/ACTUATION * Use 1 Blanch in each nostril d* HYDROCHLOROTHIAZIDE 12.5 MG C* TAKE ONE CAPSULE BY MOUTH ONC* COMPOUNDED PRESCRIPTION Insulin needles-1/2 cc for 10* FLUOROMETHOLONE 0.1 % EYE MARINE* Use 2 Drops in the left eye t* ASPIRIN 81 MG TABLET,DELAYED * Take 81 mg by mouth once burt* METHOTREXATE SODIUM 2.5 MG TA* Take 20 mg by mouth every Sun* PEN NEEDLE, DIABETIC 31 GAUGE* Use one needle per dose. 4 pe* FOLIC ACID 1 MG TABLET Take 2 tablets by mouth once * * CALCIUM 600 ORAL Take by mouth once daily. * CENTRUM SILVER ORAL Take by mouth once daily. MELOXICAM 15 MG TABLET Take 1 tablet by mouth once d* LORATADINE 10 MG TABLET Take 1 tablet by mouth once d* Problem List As Of Date 06/19/2018 Noted Resolved BENIGN HYPERTENSION [I10] INVALID FOR*09/01/2007 Hyperlipidemia [E78.5] INVALID FOR* LOC PRIM OSTEOART-PELVIS [M16.10] INVALID FOR*06/04/2006 Allergic rhinitis [J30.9] INVALID FOR* Diabetes (HCC) [E11.9] INVALID FOR*06/27/2015 Unspecified sleep apnea [G47.30] INVALID FOR*12/07/2013 More... Osteoarthritis [M19.90] INVALID FOR* Irritable bowel syndrome [K58.9] INVALID FOR*11/25/2016 Dysuria [R30.0] INVALID FOR*05/25/2016 Unspecified sinusitis (chronic) [J32.9] INVALID FOR*05/25/2016 Other specified disorder of bladder [596.8] INVALID FOR*11/25/2016 ASYMPTOMATIC VARICOSE VEINS [I83.90] INVALID FOR* REFLUX ESOPHAGITIS [K21.0] ESOPHAGITIS, UNSPECIFIED [K20.9] INVALID FOR*07/30/2008 Malignant neoplasm of female breast (HCC) [C50.*INVALID FOR*05/25/2016 IBS (Irritable Bowel Syndrome) [K58.9] Heme positive stool [R19.5] 11/22/2013 Routine general medical examination at a [facility]*INVALID FOR*11/22/2013 HTN (hypertension) [I10] INVALID FOR* Urge incontinence [N39.41] INVALID FOR* Inflammatory polyarthritis (HCC) [M06.4] More... Type 2 diabetes mellitus with diabetic retinopa*INVALID FOR* History of cervical cancer [Z85.41] More... History of breast cancer [Z85.3] INVALID FOR* H/O left mastectomy [Z90.12] INVALID FOR* Obesity, Class I, BMI 30-34.9 [E66.9] INVALID FOR* Other instructions from your clinician: 1. Start meloxicam daily X 5-7 days. Take with food. 2. Moist heat/ice to the back. 3. Gentle stretching. 4. Start claritin (loratadine) daily for cough. 5. If no better/worsening, please let us know. Visit Notes: >> Kerry Spivey Ma Mon Jun 19, 2018 8:43 AM Status: Signed Is the patient having any pain? Yes LOCATION: lower left back PAIN SCALE: 8 on a scale of 0-10 PAIN CHARACTER: shooting DURATION: (How long have you had the pain?) 3 days FREQUENCY: (How often does the pain occur?) occurs intermittently AGGRAVATING FACTORS: walking, arising from a sitting position and bending over ALLEVIATING FACTORS: application of numbing cream MEDICATIONS: OTC pain reliever Prescriptions ordered this encounter Disp Refills Start End MELOXICAM 15 MG TABLET 14 t* 0 06/19/2018 Route: ORAL Sig: Take 1 tablet by mouth once daily. With food. LORATADINE 10 MG TABLET 30 t* 5 06/19/2018 Route: ORAL Sig: Take 1 tablet by mouth once daily. Encounter Status:Closed by YSABEL EDWARDS CNP on 06/19/18 PROGRESS Observed: 06/13/2018 Status: COMPLETED Source: [place] 8:30 AM [facility] REPOSITORY [facility] ID: [id number] Author: Vanessa Lorenzo (Pharmacist) Service: (none) Author Type: Pharmacist Type: Progress Notes Filed: 06/13/2018 10:54 AM Note Text: Patient consents to pharmacy collaborative practice agreement. REASON FOR CONSULT: DM GOALS: A1c < 7% CONSULTING PROVIDER: Dr. Arita Date of Consult: 04/20/18 Manisha Keith is a 68 year old female was last seen in [facility] by PCP, Dr. Brayan Arita MD on 05/05 Patient is presenting today for f/u pharmacotherapy management appointment for DM. At last PharmD visit on 05/29 metfomrin was increased to 1,000mg BID, Novolog SSI was stopped and 10 units with supper was started, Lantus was continued. 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 On JESENIA/ARB: Yes ? On Statin: No ? On ASA: Yes ROS: ? Patient denies CP, SOB, PLUNKETT, blurred vision, dizziness or lightheadedness ? Patient denies symptoms of hypoglycemia (sweating, anxiety, palpitations, hunger, and tremor) ? Patient denies symptoms of hyperglycemia (polyuria, polydipsia, polyphagia) ? Patient denies potential medication adverse effects DIET/EXERCISE/SOCIAL Hx: ? Breakfast: after work 730am - cereal and banana before going to bed ? Lunch: after 11pm - sandwich or salad ? Dinner: before work 5pm - soup and sandwich or something quick, microwave meals (biggest) MEDICATIONS: ? Pill bottles are not present. ? Adherence: denies missed doses. ? Pharmacy: [facility] ? Rx coverage: MMO ? Affordability: no issues ? Diabetes supplies: One Touch Ultra ? 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 no issues since - Diverticulosis of colon (without mention of hemorrhage) - Heme positive stool 2010 - History of cervical cancer regular Paps for life - Hyperlipidemia 2010 - Inflammatory polyarthritis (HCC) Dr. 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 Take with a full glass of water, on an empty stomach; do NOT lie down for 30minutes. aspirin, enteric coated (ASPIRIN, ENTERIC COATED) 81 mg EC tablet Take 81 mg by mouth once daily. bethanechol (URECHOLINE) 25 mg tablet None Entered blood sugar diagnostic (BLOOD GLUCOSE TEST) test strip Test blood sugar(s) 3 times daily. Dx: Type 2 DM - Controlled E11.9 Insulin: YES Blood-Glucose Meter monitoring kit Glucose Meter of Choice - Kit - Dx: Type 2 DM - Controlled E11.9 CALCIUM CARBONATE (CALCIUM 600 ORAL) Take by mouth once daily. COMPOUNDED PRESCRIPTION Insulin needles-1/2 cc for 100 u Use up to 4 a day fluorometholone (FML LIQUID FILM) 0.1 % ophthalmic suspension Use 2 Drops in the left eye twice daily. fluticasone (FLONASE) 50 mcg/actuation nasal spray Use 1 Blanch in each nostril daily at bedtime. Use as directed. folic acid 1 mg tablet Take 2 tablets by mouth once daily. Dr. Johnson gabapentin (NEURONTIN) 300 mg capsule Take 1 capsule by mouth once daily for 91 days. Hydrochlorothiazide 12.5 mg capsule TAKE ONE CAPSULE BY MOUTH ONCE DAILY insulin aspart U-100 (NOVOLOG) 100 unit/mL inpn Inject 10 Units subcutaneously three times daily before meals. insulin glargine (LANTUS SOLOSTAR U-100 INSULIN) 100 unit/mL (3 mL) inpn Inject 38 Units subcutaneously twice daily. insulin needles, DISPOSABLE, (PEN NEEDLE) 31 gauge x 5/16 ndle Use one needle per dose. 4 per day. losartan (COZAAR) 100 mg tablet Take 1 tablet by mouth once daily. metFORMIN (GLUCOPHAGE) 1,000 mg tablet Take 1 tablet by mouth twice daily with meals. methotrexate 2.5 mg tablet Take 20 mg by mouth every Tuesday. MULTIVITAMIN W-MINERALS/LUTEIN (CENTRUM SILVER ORAL) Take by mouth once daily. oxybutynin (DITROPAN) 5 mg tablet Take 1 tablet by mouth once daily. pantoprazole DR (PROTONIX) 40 mg tablet Take 1 tablet by mouth once daily. sulfaSALAzine EC (AZULFIDINE EN) 500 mg EC tablet None Entered Rx meds not listed in EPIC: none OTCs: none Herbals: none GLYCEMIC CONTROL: ? Glucometer present at visit: No ? SMBG?s: most PPBGs are taken right after she eats Date Fasting AM 2 hr PP Before Lunch 2 hr PP Before Dinner 2 hr PP Bedtime 06/13 107 29 113 352 28 108 27 130 263 108 26 152 115 25 98 399 88 24 79 185 23 180 203 22 114 82 201 21 99 247 122 20 130 222 97 19 101 313 18 175 259 17 184 101 219 ? Hypoglycemia: no VITALS: BP 133/73 Pulse 83 Last 3 Encounter BP Readings: Date: BP: 05/29/2018 131/70 05/05/2018 120/68 04/27/2018 128/74 Wt: 80.7 kg (178 lb) BMI: 32.56 kg/(m2) LABS Lab Results Component Value Date HBA1C 8.9 04/19/2018 HBA1C 8.8 01/10/2018 HBA1C 7.0 10/11/2017 CMP: Glucose 106 04/20/2018 BUN 12 04/20/2018 Creatinine, Whole Blood (iSTAT) 0.84 04/20/2018 Sodium 140 04/20/2018 Potassium 4.3 04/20/2018 Chloride 99 04/20/2018 CO2 27 04/20/2018 Protein, Total 7.4 07/08/2017 Albumin 3.8 07/08/2017 Calcium 9.5 04/20/2018 Alkaline Phosphatase 46 07/08/2017 Bilirubin, Total 0.2 07/08/2017 AST 15 07/08/2017 ALT 15 07/08/2017 Estimated Creatinine Clearance: 64.8 mL/min (based on SCr of 0.84 mg/dL). Last Lipid Panel Lab Results Component Value Date CHOL 169 01/10/2018 Lab Results Component Value Date HDL 72 01/10/2018 Lab Results Component Value Date LDL 80 01/10/2018 Lab Results Component Value Date TG 84 01/10/2018 Albumin/Creat Ratio (mg/g) Date Value 01/10/2018 Not calculated PHARMACOTHERAPY ASSESSMENT/PLAN: 1. 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, with long-term current use of insulin, macular edema presence unspecified, unspecified laterality, unspecified proliferative retinopathy (HCC) - ICD9: 250.50, 362.02, V58.67, ICD10: E11.3599, Z79.4 (primary diagnosis) A1c goal < 7%, patient is not at goal (8.9% on 04/19). FBGs mostly at goal and PPBGs not at goal but patient not testing reliably (sometimes right after meals). Taking metformin more than recommended amount daily, will split to BID dosing. Renal fxn and LFTs WNL and appropriate for continued therapy ? CHANGE metformin to 1,000mg BID ? CONTINUE Lantus 38 units BID and Novolog 10 units QPM supper ? Instructed patient to continue checking FBGs and PPBGs 2- 3x daily - HGB A1C - COMP METABOLIC PANEL 2. Essential hypertension - ICD9: 401.9, ICD10: I10 BP goal < 140/90, pt is at at goal on current therapy. Patient compliant with and tolerating current regimen. Continue. Pulse, renal fxn, K+ WNL and appropriate for continued therapy. ? CONTINUE losartan 100mg and HCTZ 12.5mg once daily 3. Mixed hyperlipidemia - ICD9: 272.2, ICD10: E78.2 Pt is not prescribed statin therapy (indicated for high intensity d/t DM and ASCVD risk score 14%). Will discuss at future visits Patient is scheduled to see PCP 07/27. Patient to return to clinic for PharmD f/u on 07/11. Patient verbalized understanding of instructions. Vanessa Lorenzo PharmD, BCPS CNOV Observed: 06/13/2018 Status: COMPLETED Source: [place] 8:30 AM [facility] REPOSITORY Office Visit ([facility]) MANISHA KEITH ([id number]) 1950 F Date Time Provider Department 06/13/18 8:30 AM MAURA (PHARMACIST), VANESSA AL During your visit today, we recorded the following information about you: Pulse Blood pressure 83/minute 133/73 LOUIS ECHEVARRIA 06/13/2018 10:54 AM Signed Patient consents to pharmacy collaborative practice agreement. REASON FOR CONSULT: DM GOALS: A1c < 7% CONSULTING PROVIDER: Dr. Arita Date of Consult: 04/20/18 Manisha Keith is a 68 year old female was last seen in [facility] by PCP, Dr. Brayan Arita MD on 05/05 Patient is presenting today for f/u pharmacotherapy management appointment for DM. At last PharmD visit on 05/29 metfomrin was increased to 1,000mg BID, Novolog SSI was stopped and 10 units with supper was started, Lantus was continued. 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 On JESENIA/ARB: Yes ? On Statin: No ? On ASA: Yes ROS: ? Patient denies CP, SOB, PLUNKETT, blurred vision, dizziness or lightheadedness ? Patient denies symptoms of hypoglycemia (sweating, anxiety, palpitations, hunger, and tremor) ? Patient denies symptoms of hyperglycemia (polyuria, polydipsia, polyphagia) ? Patient denies potential medication adverse effects DIET/EXERCISE/SOCIAL Hx: ? Breakfast: after work 730am - cereal and banana before going to bed ? Lunch: after 11pm - sandwich or salad ? Dinner: before work 5pm - soup and sandwich or something quick, microwave meals (biggest) MEDICATIONS: ? Pill bottles are not present. ? Adherence: denies missed doses. ? Pharmacy: [facility] ? Rx coverage: MMO ? Affordability: no issues ? Diabetes supplies: One Touch Ultra ? 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 no issues since - Diverticulosis of colon (without mention of hemorrhage) - Heme positive stool 2010 - History of cervical cancer regular Paps for life - Hyperlipidemia 2011 - Inflammatory polyarthritis (HCC) Dr. 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) - Type II or unspecified type diabetes mellitus without mention of complication, not stated as uncontrolled - Unspecified essential hypertension ALLERGIES Allergen Reactions - Jeesnia Inhibitors Cough - Nsaids (Non-Steroid* GI Upset - Tape [Adhesive Tape* Other: See Comments Blisters from surgical tape Medication List Medication Directions Comments Action/Plan alendronate (FOSAMAX) 70 mg tablet Take 1 tablet by mouth once each week. Take with a full glass of water, on an empty stomach; do NOT lie down for 30minutes. aspirin, enteric coated (ASPIRIN, ENTERIC COATED) 81 mg EC tablet Take 81 mg by mouth once daily. bethanechol (URECHOLINE) 25 mg tablet None Entered blood sugar diagnostic (BLOOD GLUCOSE TEST) test strip Test blood sugar(s) 3 times daily. Dx: Type 2 DM - Controlled E11.9 Insulin: YES Blood-Glucose Meter monitoring kit Glucose Meter of Choice - Kit - Dx: Type 2 DM - Controlled E11.9 CALCIUM CARBONATE (CALCIUM 600 ORAL) Take by mouth once daily. COMPOUNDED PRESCRIPTION Insulin needles-1/2 cc for 100 u Use up to 4 a day fluorometholone (FML LIQUID FILM) 0.1 % ophthalmic suspension Use 2 Drops in the left eye twice daily. fluticasone (FLONASE) 50 mcg/actuation nasal spray Use 1 Blanch in each nostril daily at bedtime. Use as directed. folic acid 1 mg tablet Take 2 tablets by mouth once daily. Dr. Johnson gabapentin (NEURONTIN) 300 mg capsule Take 1 capsule by mouth once daily for 91 days. Hydrochlorothiazide 12.5 mg capsule TAKE ONE CAPSULE BY MOUTH ONCE DAILY insulin aspart U-100 (NOVOLOG) 100 unit/mL inpn Inject 10 Units subcutaneously three times daily before meals. insulin glargine (LANTUS SOLOSTAR U-100 INSULIN) 100 unit/mL (3 mL) inpn Inject 38 Units subcutaneously twice daily. insulin needles, DISPOSABLE, (PEN NEEDLE) 31 gauge x 5/16 ndle Use one needle per dose. 4 per day. losartan (COZAAR) 100 mg tablet Take 1 tablet by mouth once daily. metFORMIN (GLUCOPHAGE) 1,000 mg tablet Take 1 tablet by mouth twice daily with meals. methotrexate 2.5 mg tablet Take 20 mg by mouth every Tuesday. MULTIVITAMIN W-MINERALS/LUTEIN (CENTRUM SILVER ORAL) Take by mouth once daily. oxybutynin (DITROPAN) 5 mg tablet Take 1 tablet by mouth once daily. pantoprazole DR (PROTONIX) 40 mg tablet Take 1 tablet by mouth once daily. sulfaSALAzine EC (AZULFIDINE EN) 500 mg EC tablet None Entered Rx meds not listed in EPIC: none OTCs: none Herbals: none GLYCEMIC CONTROL: ? Glucometer present at visit: No ? SMBG?s: most PPBGs are taken right after she eats Date Fasting AM 2 hr PP Before Lunch 2 hr PP Before Dinner 2 hr PP Bedtime 06/13 107 29 113 352 28 108 27 130 263 108 26 152 115 25 98 399 88 24 79 185 23 180 203 22 114 82 201 21 99 247 122 20 130 222 97 19 101 313 18 175 259 17 184 101 219 ? Hypoglycemia: no VITALS: BP 133/73 Pulse 83 Last 3 Encounter BP Readings: Date: BP: 05/29/2018 131/70 05/05/2018 120/68 04/27/2018 128/74 Wt: 80.7 kg (178 lb) BMI: 32.56 kg/(m2) LABS Lab Results Component Value Date HBA1C 8.9 04/19/2018 HBA1C 8.8 01/10/2018 HBA1C 7.0 10/11/2017 CMP: Glucose 106 04/20/2018 BUN 12 04/20/2018 Creatinine, Whole Blood (iSTAT) 0.84 04/20/2018 Sodium 140 04/20/2018 Potassium 4.3 04/20/2018 Chloride 99 04/20/2018 CO2 27 04/20/2018 Protein, Total 7.4 07/08/2017 Albumin 3.8 07/08/2017 Calcium 9.5 04/20/2018 Alkaline Phosphatase 46 07/08/2017 Bilirubin, Total 0.2 07/08/2017 AST 15 07/08/2017 ALT 15 07/08/2017 Estimated Creatinine Clearance: 64.8 mL/min (based on SCr of 0.84 mg/dL). Last Lipid Panel Lab Results Component Value Date CHOL 169 01/10/2018 Lab Results Component Value Date HDL 72 01/10/2018 Lab Results Component Value Date LDL 80 01/10/2018 Lab Results Component Value Date TG 84 01/10/2018 Albumin/Creat Ratio (mg/g) Date Value 01/10/2018 Not calculated PHARMACOTHERAPY ASSESSMENT/PLAN: 1. 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, with long-term current use of insulin, macular edema presence unspecified, unspecified laterality, unspecified proliferative retinopathy (HCC) - ICD9: 250.50, 362.02, V58.67, ICD10: E11.3599, Z79.4 (primary diagnosis) A1c goal < 7%, patient is not at goal (8.9% on 04/19). FBGs mostly at goal and PPBGs not at goal but patient not testing reliably (sometimes right after meals). Taking metformin more than recommended amount daily, will split to BID dosing. Renal fxn and LFTs WNL and appropriate for continued therapy ? CHANGE metformin to 1,000mg BID ? CONTINUE Lantus 38 units BID and Novolog 10 units QPM supper ? Instructed patient to continue checking FBGs and PPBGs 2- 3x daily - HGB A1C - COMP METABOLIC PANEL 2. Essential hypertension - ICD9: 401.9, ICD10: I10 BP goal < 140/90, pt is at at goal on current therapy. Patient compliant with and tolerating current regimen. Continue. Pulse, renal fxn, K+ WNL and appropriate for continued therapy. ? CONTINUE losartan 100mg and HCTZ 12.5mg once daily 3. Mixed hyperlipidemia - ICD9: 272.2, ICD10: E78.2 Pt is not prescribed statin therapy (indicated for high intensity d/t DM and ASCVD risk score 14%). Will discuss at future visits Patient is scheduled to see PCP 07/27. Patient to return to clinic for PharmD f/u on 07/11. Patient verbalized understanding of instructions. Vanessa Lorenzo, PharmD, BCPS VANESSA LORENZO, PHARMACIST 06/13/2018 8:54 AM Signed Lantus 38 units when you get home and before you leave for work If sugar is above 70, ok to take Lantus Not necessary to eat with Lantus Metformin take 1 pill with each injection of Lantus Novolog 10 units right before dinner, as long as sugar is above 80 Must eat with Novolog Referring Provider: SELF [[id number]] Allergies As of Date: 06/13/2018 Noted Allergy Reaction JESENIA INHIBITORS 03/27/2014 3 - Cough NSAIDS (NON-STEROIDAL ANTI-INFLAM*05/09/2009 8 - GI Upset TAPE (ADHESIVE TAPE (ROSINS)) 10/26/2016 14 - Other: See Comments Comments: Blisters from surgical tape Date Reviewed: 04/27/2018 Reviewed by: Cara (Caitie) Megha - Fully Assessed Reason for Visit: Allied Health Visit [5] Cmt: DM follow-up Primary Visit Diagnosis: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, with long-term current use of insulin, macular edema presence unspecified, unspecified laterality, unspecified proliferative retinopathy* (HCC) [E11.3599, Z79.4] Other Visit Diagnosis:Essential hypertension [I10] Order(s):insulin aspart U-100 (NOVOLOG) 100 unit/mL inpnInject 10 Units subcutaneously daily with dinner.Disp: 5 PenRfl: 5 insulin glargine (LANTUS SOLOSTAR U-100 INSULIN) 100 unit/mL (3 mL) inpnInject 38 Units subcutaneously twice daily.Disp: 10 PenRfl: 5 HGB A1C [[id number]] Order #: [id number] FUTURE COMP METABOLIC PANEL [SQCMP] Order #: [id number] FUTURE Prescriptions as of 06/13/2018 Sig: INSULIN ASPART U-100 100 UNI* Inject 10 Units subcutaneousl* INSULIN GLARGINE (U-100) 100 * Inject 38 Units subcutaneousl* BETHANECHOL CHLORIDE 25 MG TA* SULFASALAZINE 500 MG TABLET,D* METFORMIN 1,000 MG TABLET Take 1 tablet by mouth twice * PANTOPRAZOLE 40 MG TABLET,DEL* Take 1 tablet by mouth once d* GABAPENTIN 300 MG CAPSULE Take 1 capsule by mouth once * BLOOD SUGAR DIAGNOSTIC STRIPS Test blood sugar(s) 3 times d* BLOOD-GLUCOSE METER KIT Glucose Meter of Choice - Kit* ALENDRONATE 70 MG TABLET Take 1 tablet by mouth once e* LOSARTAN 100 MG TABLET Take 1 tablet by mouth once d* OXYBUTYNIN CHLORIDE 5 MG TABL* Take 1 tablet by mouth once d* FLUTICASONE 50 MCG/ACTUATION * Use 1 Blanch in each nostril d* HYDROCHLOROTHIAZIDE 12.5 MG C* TAKE ONE CAPSULE BY MOUTH ONC* COMPOUNDED PRESCRIPTION Insulin needles-1/2 cc for 10* FLUOROMETHOLONE 0.1 % EYE MARINE* Use 2 Drops in the left eye t* ASPIRIN 81 MG TABLET,DELAYED * Take 81 mg by mouth once burt* METHOTREXATE SODIUM 2.5 MG TA* Take 20 mg by mouth every Sun* PEN NEEDLE, DIABETIC 31 GAUGE* Use one needle per dose. 4 pe* FOLIC ACID 1 MG TABLET Take 2 tablets by mouth once * * CALCIUM 600 ORAL Take by mouth once daily. * CENTRUM SILVER ORAL Take by mouth once daily. Problem List As Of Date 06/13/2018 Noted Resolved BENIGN HYPERTENSION [I10] INVALID FOR*09/01/2007 Hyperlipidemia [E78.5] INVALID FOR* LOC PRIM OSTEOART-PELVIS [M16.10] INVALID FOR*06/04/2006 Allergic rhinitis [J30.9] INVALID FOR* Diabetes (HCC) [E11.9] INVALID FOR*06/27/2015 Unspecified sleep apnea [G47.30] INVALID FOR*12/07/2013 More... Osteoarthritis [M19.90] INVALID FOR* Irritable bowel syndrome [K58.9] INVALID FOR*11/25/2016 Dysuria [R30.0] INVALID FOR*05/25/2016 Unspecified sinusitis (chronic) [J32.9] INVALID FOR*05/25/2016 Other specified disorder of bladder [596.8] INVALID FOR*11/25/2016 ASYMPTOMATIC VARICOSE VEINS [I83.90] INVALID FOR* REFLUX ESOPHAGITIS [K21.0] ESOPHAGITIS, UNSPECIFIED [K20.9] INVALID FOR*07/30/2008 Malignant neoplasm of female breast (HCC) [C50.*INVALID FOR*05/25/2016 IBS (Irritable Bowel Syndrome) [K58.9] Heme positive stool [R19.5] 11/22/2013 Routine general medical examination at [facility]*INVALID FOR*11/22/2013 HTN (hypertension) [I10] INVALID FOR* Urge incontinence [N39.41] INVALID FOR* Inflammatory polyarthritis (HCC) [M06.4] More... Type 2 diabetes mellitus with diabetic retinopa*INVALID FOR* History of cervical cancer [Z85.41] More... History of breast cancer [Z85.3] INVALID FOR* H/O left mastectomy [Z90.12] INVALID FOR* Obesity, Class I, BMI 30-34.9 [E66.9] INVALID FOR* Other instructions from your clinician: Lantus 38 units when you get home and before you leave for work If sugar is above 70, ok to take Lantus Not necessary to eat with Lantus Metformin take 1 pill with each injection of Lantus Novolog 10 units right before dinner, as long as sugar is above 80 Must eat with Novolog Prescriptions ordered this encounter Disp Refills Start End INSULIN ASPART U-100 100 UNIT/ML TEJADA* 5 Pen 5 06/13/2018 Route: SUBCUTANEOUS Sig: Inject 10 Units subcutaneously daily with dinner. INSULIN GLARGINE (U-100) 100 UNIT/ML* 10 P* 5 06/13/2018 12/10/2018 Route: SUBCUTANEOUS Sig: Inject 38 Units subcutaneously twice daily. Medications Discontinued During This Encounter insulin aspart U-100 (NOVOLOG) 100 u* 5 Pen 3 05/29/2018 06/13/2018 Route: SUBCUTANEOUS Sig: Inject 10 Units subcutaneously three times daily before meals. Disc: Reason for discontinue is not on file. insulin glargine (LANTUS SOLOSTAR U-* 8 Pen 5 02/17/2018 06/13/2018 Route: SUBCUTANEOUS Sig: Inject 38 Units subcutaneously twice daily. Disc: Reason for discontinue is not on file. Encounter Status:Closed by MAURA (PHARMACIST)VANESSA on 06/13/18 CBC W/DIFF, AUTOMATED Collected: 06/06/2018 Status: F Source: [facility] 4:01 PM [facility] REPOSITORY TYPE CODE TESTS RESULT OUT OF RANGE REFERENCE UNITS LAB L100.1000 4.4-11.0 K/mm3 Normal WBC 7.1 LAB L100.1200 4.2-5.4 M/mm3 Low RBC 3.56 LAB L100.1300 12.0-15.0 g/dl Low HGB 10.8 LAB L100.1400 37-47 % Low HCT 33.9 LAB L100.1500 81-99 fL Normal MCV 95.2 LAB L100.1600 27.0-32.0 pg Normal MCH 30.3 LAB L100.1700 32-36 g/gl Low MCHC 31.9 LAB L100.1810 11.6-14.6 % Normal RDW CV 14.5 LAB L100.1820 35.1-43.9 fl High RDW SD 49.5 LAB L100.1900 150-450 K/mm3 Normal PLT 276 LAB L100.2000 6.2-12.0 fl Normal MPV 9.2 LAB L100.2100 47-70 % Normal NEUT% 66.3 LAB L100.2200 19-41 % Normal LY% 21.6 LAB L100.2300 0-10 % Normal MONO% 8.6 LAB L100.2400 0-5 % Normal EO% 2.8 LAB L100.2500 0-1 % Normal BASO% 0.3 LAB L100.2550 0.0-0.9 % Normal IM GRAN % 0.400 Result Comment: IG% - Immature Granulocytes (promyelocytes, myelocytes and metamyelocytes) > 1% indicates that a LEFT SHIFT is Present. LAB L100.2620 2.0-7.7 X10 3/uL Normal Absolute Neut 4.7 LAB L100.2720 0.83-4.51 X10 3/ul Normal Absolute Lymph 1.54 Performed By: #### L100.0100 #### [facility] [place], [address] COMPREHENSIVE METABOLIC Collected: 06/06/2018 Status: F Source: [facility] 4:01 PM [facility] REPOSITORY TYPE CODE TESTS RESULT OUT OF RANGE REFERENCE UNITS LAB L501.0100 74-106 mg/dL High GLU 149 Result Comment: Fasting Glucose result greater than or equal to 126 mg/dL suggests DIABETES MELLITUS per A.D.A. criteria. Please note revised GLUCOSE reference range effective 2017. LAB L501.1000 7-18 mg/dL Normal BUN 16 LAB L501.1100 0.55-1.02 mg/dL Normal CREAT,SERUM 0.86 Result Comment: The validity of the calculated GFR AND GFRAA in patients over 70 years has not been determined. Clinical correlation is essential. LAB L501.1110 >60 mL/min Normal EST GFR 70 Result Comment: Non- GFR Calc LAB L501.1115 >60 mL/min Normal EST GFR - AA 85 Result Comment: GFR Calc LAB L501.1300 10-20 RATIO Normal BUN/CRE 18.5 LAB L501.1500 6.4-8.2 g/dL T Normal PROT 7.2 LAB L501.1800 3.2-5.0 g/dL Low ALB 3.1 LAB L501.1950 2.2-4.2 g/dL Normal GLOB 4.1 LAB L501.2000 0.9-2.4 RATIO Low A/G 0.8 LAB L501.2200 8.5-10.1 mg/dL CA Normal 9.0 LAB L501.4100 15-37 U/L Normal AST 20 LAB L501.4305 45-117 U/L Normal ALK P 54 LAB L501.4405 13-56 U/L Normal ALT 34 LAB L501.4600 0.20-1.00 mg/dL T Normal BILI 0.20 LAB L501.5300 136-145 mmol/L NA Normal 140 LAB L501.5600 3.5-5.1 mmol/L K Normal 4.2 LAB L501.5900 98-107 mmol/L CL Normal 104 LAB L501.6100 21.0-32.0 mmol/L Normal CO2 28.0 LAB L501.6200 5-15 Normal GAP 8 Performed By: #### L500.4050 #### [facility] [place], [address] PROGRESS Observed: 05/29/2018 Status: COMPLETED Source: [place] 9:00 AM [facility] REPOSITORY [facility] ID: [id number] Author: Vanessa Lorenzo (Pharmacist) Service: (none) Author Type: Pharmacist Type: Progress Notes Filed: 05/30/2018 12:27 PM Note Text: Patient consents to pharmacy collaborative practice agreement. REASON FOR CONSULT: DM GOALS: A1c < 7% CONSULTING PROVIDER: Dr. Arita Date of Consult: 04/20/18 Manisha Keith is a 68 year old female was last seen in [facility] by PCP, Dr. Brayan Arita MD on 05/05 at which time no medication changes were made, patient was instructed to call in her BGs Patient is presenting today for initial pharmacotherapy management appointment for DM. 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 On JESENIA/ARB: Yes ? On Statin: No ? On ASA: Yes ROS: ? Patient denies CP, SOB, PLUNKETT, blurred vision, dizziness or lightheadedness ? Patient denies symptoms of hypoglycemia (sweating, anxiety, palpitations, hunger, and tremor) ? Shaky, sweaty, weak can tell when she's low ? Patient denies symptoms of hyperglycemia (polyuria, polydipsia, polyphagia) ? Patient denies potential medication adverse effects DIET/EXERCISE/SOCIAL Hx: ? Breakfast: after work 730am - cereal and banana before going to bed ? Lunch: after 11pm - sandwich or salad ? Dinner: before work 5pm - soup and sandwich or something quick, microwave meals (biggest) MEDICATIONS: ? Pill bottles are not present. ? Adherence: denies missed doses. ? [facility]acy: [facility] ? Rx coverage: MMO ? Affordability: no issues ? Diabetes supplies: One Touch Ultra ? 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 no issues since - Diverticulosis of colon (without mention of hemorrhage) - Heme positive stool 2010 - History of cervical cancer regular Paps for life - Hyperlipidemia 2010 - Inflammatory polyarthritis (HCC) Dr. 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 Take with a full glass of water, on an empty stomach; do NOT lie down for 30minutes. Taking on her day off, before food in the morning Change to one set day every week (Sundays) aspirin, enteric coated (ASPIRIN, ENTERIC COATED) 81 mg EC tablet Take 81 mg by mouth once daily. Taking daily CALCIUM CARBONATE (CALCIUM 600 ORAL) Take by mouth once daily. Taking daily COMPOUNDED PRESCRIPTION Insulin needles-1/2 cc for 100 u Use up to 4 a day doxycycline monohydrate (MONODOX) 100 mg capsule Take 1 capsule by mouth twice daily. Completed esomeprazole (NEXIUM) 40 mg capsule Take 1 capsule by mouth twice daily before meals. 1/2 hr before meal. Taking pantoprazole instead fluorometholone (FML LIQUID FILM) 0.1 % ophthalmic suspension Use 2 Drops in the left eye twice daily. fluticasone (FLONASE) 50 mcg/actuation nasal spray Use 1 Blanch in each nostril daily at bedtime. Use as directed. Taking folic acid 1 mg tablet Take 2 tablets by mouth once daily. Dr. Johnson Taking daily gabapentin (NEURONTIN) 300 mg capsule Take 1 capsule by mouth once daily for 91 days. Taking daily Feels like she doesn't need it Hydrochlorothiazide 12.5 mg capsule TAKE ONE CAPSULE BY MOUTH ONCE DAILY Taking daily insulin glargine (LANTUS SOLOSTAR U-100 INSULIN) 100 unit/mL (3 mL) inpn Inject 38 Units subcutaneously twice daily. Taking around 7am and 5-6pm insulin lispro (HUMALOG U-100 INSULIN) 100 unit/mL injection 2 units three times a day and Sliding scale: 151-200 give 2 units 201-250 give 4 units 251-300 give 6 units 301-350 give 8 units Above 350, notify PCP Taking Novolog See plan losartan (COZAAR) 100 mg tablet Take 1 tablet by mouth once daily. Taking daily metFORMIN (GLUCOPHAGE) 1,000 mg tablet TAKE ONE TABLET BY MOUTH ONCE DAILY WITH BREAKFAST Takes at 5pm every day metFORMIN (GLUCOPHAGE) 1,000 mg tablet Take 1 tablet by mouth daily with breakfast. Taking daily methotrexate 2.5 mg tablet Take 20 mg by mouth every Tuesday. Taking on her days off Change to one set day, like Sundays MULTIVITAMIN W-MINERALS/LUTEIN (CENTRUM SILVER ORAL) Take by mouth once daily. Taking Done D/C oxybutynin (DITROPAN) 5 mg tablet Take 1 tablet by mouth once daily. Taking daily Done D/C Done D/C Rx meds not listed in EPIC: none OTCs: none Herbals: none GLYCEMIC CONTROL: ? Glucometer present at visit: No ? SMBG?s: Sometimes snacking between 11pm and 7am Date Fasting AM at 7am 2 hr PP Before work, sometimes after dinner 2 hr PP Before Dinner 2 hr PP (sometimes right after food) Bedtime 05/29 164 05/28 149 239 05/27 122 267 94 05/26 141 446 267 05/25 78 264 05/24 103 315 05/23 181 347 409 05/22 150 82 05/21 170 141 206 05/20 176 126 314 05/19 123 330 05/18 109 192 188 05/17 193 79 287 05/16 185 106 low ? Hypoglycemia: yes ? How corrected: ate her meal VITALS: BP 131/70 Pulse 94 Last 3 Encounter BP Readings: Date: BP: 05/05/2018 120/68 04/27/2018 128/74 04/20/2018 142/82 Wt: 80.7 kg (178 lb) BMI: 32.56 kg/(m2) LABS Lab Results Component Value Date HBA1C 8.9 04/19/2018 HBA1C 8.8 01/10/2018 HBA1C 7.0 10/11/2017 CMP: Glucose 106 04/20/2018 BUN 12 04/20/2018 Creatinine, Whole Blood (iSTAT) 0.84 04/20/2018 Sodium 140 04/20/2018 Potassium 4.3 04/20/2018 Chloride 99 04/20/2018 CO2 27 04/20/2018 Protein, Total 7.4 07/08/2017 Albumin 3.8 07/08/2017 Calcium 9.5 04/20/2018 Alkaline Phosphatase 46 07/08/2017 Bilirubin, Total 0.2 07/08/2017 AST 15 07/08/2017 ALT 15 07/08/2017 GFR > 60 Estimated Creatinine Clearance: 64.8 mL/min (based on SCr of 0.84 mg/dL). Last Lipid Panel Lab Results Component Value Date CHOL 169 01/10/2018 Lab Results Component Value Date HDL 72 01/10/2018 Lab Results Component Value Date LDL 80 01/10/2018 Lab Results Component Value Date TG 84 01/10/2018 Albumin/Creat Ratio (mg/g) Date Value 01/10/2018 Not calculated PHARMACOTHERAPY ASSESSMENT/PLAN: 1. 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, with long-term current use of insulin, macular edema presence unspecified, unspecified laterality, unspecified proliferative retinopathy* (HCC) - ICD9: 250.50, 362.02, V58.67, ICD10: E11.3599, Z79.4 A1c goal < 7%, patient is not at goal (8.9% on 04/19). FBGs mostly at goal and PPBGs not at goal but patient not testing reliably (sometimes right after meals). Also taking Novolog sometimes after meals. Will decrease Novolog to a set dose (10 units just with largest meal daily). Will maximize metformin dose for most benefit. Renal fxn and LFTs WNL and appropriate for continued therapy ? INCREASE metformin to 1,000mg BID ? START Novolog 10 units QPM supper ? D/C Novolog sliding scale ? CONTINUE Lantus 38 units BID ? Instructed patient to continue checking FBGs and PPBGs 2- 3x daily 2. Essential hypertension - ICD9: 401.9, ICD10: I10 BP goal < 140/90, pt is at at goal on current therapy. Patient compliant with and tolerating current regimen. Continue. Pulse, renal fxn, K+ WNL and appropriate for continued therapy. ? CONTINUE losartan 100mg and HCTZ 12.5mg once daily 3. Mixed hyperlipidemia - ICD9: 272.2, ICD10: E78.2 Pt is not prescribed statin therapy (indicated for high intensity d/t DM and ASCVD risk score 14%). Will discuss at future visits Patient is scheduled to see PCP 07/27/18. Patient to return to clinic for PharmD f/u on 06/13. Patient verbalized understanding of instructions. Vanessa Lorenzo, Marco A, BCPS CNOV Observed: 05/29/2018 Status: COMPLETED Source: [place] 9:00 AM [facility] REPOSITORY Office Visit ([facility]MEWO) MANISHA KEITH ([id number]) 1950 F Date Time Provider Department 05/29/18 9:00 AM MAURA (PHARMACIST)VANESSA During your visit today, we recorded the following information about you: Pulse Blood pressure 94/minute 131/70 VANESSA LORENZO, PHARMACIST 05/30/2018 12:27 PM Signed Patient consents to pharmacy collaborative practice agreement. REASON FOR CONSULT: DM GOALS: A1c < 7% CONSULTING PROVIDER: Dr. Arita Date of Consult: 04/20/18 Manisha Keith is a 68 year old female was last seen in [facility] by PCP, Dr. Brayan Arita MD on 05/05 at which time no medication changes were made, patient was instructed to call in her BGs Patient is presenting today for initial pharmacotherapy management appointment for DM. 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 On JESENIA/ARB: Yes ? On Statin: No ? On ASA: Yes ROS: ? Patient denies CP, SOB, PLUNKETT, blurred vision, dizziness or lightheadedness ? Patient denies symptoms of hypoglycemia (sweating, anxiety, palpitations, hunger, and tremor) ? Shaky, sweaty, weak can tell when she's low ? Patient denies symptoms of hyperglycemia (polyuria, polydipsia, polyphagia) ? Patient denies potential medication adverse effects DIET/EXERCISE/SOCIAL Hx: ? Breakfast: after work 730am - cereal and banana before going to bed ? Lunch: after 11pm - sandwich or salad ? Dinner: before work 5pm - soup and sandwich or something quick, microwave meals (biggest) MEDICATIONS: ? Pill bottles are not present. ? Adherence: denies missed doses. ? [facility]: [facility] ? Rx coverage: MMO ? Affordability: no issues ? Diabetes supplies: One Touch Ultra ? 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 no issues since - Diverticulosis of colon (without mention of hemorrhage) - Heme positive stool 2010 - History of cervical cancer regular Paps for life - Hyperlipidemia 2010 - Inflammatory polyarthritis (HCC) Dr. 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 Take with a full glass of water, on an empty stomach; do NOT lie down for 30minutes. Taking on her day off, before food in the morning Change to one set day every week (Sundays) aspirin, enteric coated (ASPIRIN, ENTERIC COATED) 81 mg EC tablet Take 81 mg by mouth once daily. Taking daily CALCIUM CARBONATE (CALCIUM 600 ORAL) Take by mouth once daily. Taking daily COMPOUNDED PRESCRIPTION Insulin needles-1/2 cc for 100 u Use up to 4 a day doxycycline monohydrate (MONODOX) 100 mg capsule Take 1 capsule by mouth twice daily. Completed esomeprazole (NEXIUM) 40 mg capsule Take 1 capsule by mouth twice daily before meals. 1/2 hr before meal. Taking pantoprazole instead fluorometholone (FML LIQUID FILM) 0.1 % ophthalmic suspension Use 2 Drops in the left eye twice daily. fluticasone (FLONASE) 50 mcg/actuation nasal spray Use 1 Blanch in each nostril daily at bedtime. Use as directed. Taking folic acid 1 mg tablet Take 2 tablets by mouth once daily. Dr. Johnson Taking daily gabapentin (NEURONTIN) 300 mg capsule Take 1 capsule by mouth once daily for 91 days. Taking daily Feels like she doesn't need it Hydrochlorothiazide 12.5 mg capsule TAKE ONE CAPSULE BY MOUTH ONCE DAILY Taking daily insulin glargine (LANTUS SOLOSTAR U-100 INSULIN) 100 unit/mL (3 mL) inpn Inject 38 Units subcutaneously twice daily. Taking around 7am and 5-6pm insulin lispro (HUMALOG U-100 INSULIN) 100 unit/mL injection 2 units three times a day and Sliding scale: 151-200 give 2 units 201-250 give 4 units 251-300 give 6 units 301-350 give 8 units Above 350, notify PCP Taking Novolog See plan losartan (COZAAR) 100 mg tablet Take 1 tablet by mouth once daily. Taking daily metFORMIN (GLUCOPHAGE) 1,000 mg tablet TAKE ONE TABLET BY MOUTH ONCE DAILY WITH BREAKFAST Takes at 5pm every day metFORMIN (GLUCOPHAGE) 1,000 mg tablet Take 1 tablet by mouth daily with breakfast. Taking daily methotrexate 2.5 mg tablet Take 20 mg by mouth every Tuesday. Taking on her days off Change to one set day, like Sundays MULTIVITAMIN W-MINERALS/LUTEIN (CENTRUM SILVER ORAL) Take by mouth once daily. Taking Done D/C oxybutynin (DITROPAN) 5 mg tablet Take 1 tablet by mouth once daily. Taking daily Done D/C Done D/C Rx meds not listed in EPIC: none OTCs: none Herbals: none GLYCEMIC CONTROL: ? Glucometer present at visit: No ? SMBG?s: Sometimes snacking between 11pm and 7am Date Fasting AM at 7am 2 hr PP Before work, sometimes after dinner 2 hr PP Before Dinner 2 hr PP (sometimes right after food) Bedtime 05/29 164 05/28 149 239 05/27 122 267 94 05/26 141 446 267 05/25 78 264 05/24 103 315 05/23 181 347 409 05/22 150 82 05/21 170 141 206 05/20 176 126 314 05/19 123 330 05/18 109 192 188 05/17 193 79 287 10 185 106 low ? Hypoglycemia: yes ? How corrected: ate her meal VITALS: BP 131/70 Pulse 94 Last 3 Encounter BP Readings: Date: BP: 05/05/2018 120/68 04/27/2018 128/74 04/20/2018 142/82 Wt: 80.7 kg (178 lb) BMI: 32.56 kg/(m2) LABS Lab Results Component Value Date HBA1C 8.9 04/19/2018 HBA1C 8.8 01/10/2018 HBA1C 7.0 10/11/2017 CMP: Glucose 106 04/20/2018 BUN 12 04/20/2018 Creatinine, Whole Blood (iSTAT) 0.84 04/20/2018 Sodium 140 04/20/2018 Potassium 4.3 04/20/2018 Chloride 99 04/20/2018 CO2 27 04/20/2018 Protein, Total 7.4 07/08/2017 Albumin 3.8 07/08/2017 Calcium 9.5 04/20/2018 Alkaline Phosphatase 46 07/08/2017 Bilirubin, Total 0.2 07/08/2017 AST 15 07/08/2017 ALT 15 07/08/2017 GFR > 60 Estimated Creatinine Clearance: 64.8 mL/min (based on SCr of 0.84 mg/dL). Last Lipid Panel Lab Results Component Value Date CHOL 169 01/10/2018 Lab Results Component Value Date HDL 72 01/10/2018 Lab Results Component Value Date LDL 80 01/10/2018 Lab Results Component Value Date TG 84 01/10/2018 Albumin/Creat Ratio (mg/g) Date Value 01/10/2018 Not calculated PHARMACOTHERAPY ASSESSMENT/PLAN: 1. 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, with long-term current use of insulin, macular edema presence unspecified, unspecified laterality, unspecified proliferative retinopathy* ([facility]) - ICD9: 250.50, 362.02, V58.67, ICD10: E11.3599, Z79.4 A1c goal < 7%, patient is not at goal (8.9% on 04/19). FBGs mostly at goal and PPBGs not at goal but patient not testing reliably (sometimes right after meals). Also taking Novolog sometimes after meals. Will decrease Novolog to a set dose (10 units just with largest meal daily). Will maximize metformin dose for most benefit. Renal fxn and LFTs WNL and appropriate for continued therapy ? INCREASE metformin to 1,000mg BID ? START Novolog 10 units QPM supper ? D/C Novolog sliding scale ? CONTINUE Lantus 38 units BID ? Instructed patient to continue checking FBGs and PPBGs 2- 3x daily 2. Essential hypertension - ICD9: 401.9, ICD10: I10 BP goal < 140/90, pt is at at goal on current therapy. Patient compliant with and tolerating current regimen. Continue. Pulse, renal fxn, K+ WNL and appropriate for continued therapy. ? CONTINUE losartan 100mg and HCTZ 12.5mg once daily 3. Mixed hyperlipidemia - ICD9: 272.2, ICD10: E78.2 Pt is not prescribed statin therapy (indicated for high intensity d/t DM and ASCVD risk score 14%). Will discuss at future visits Patient is scheduled to see PCP 07/27/18. Patient to return to clinic for PharmD f/u on 06/13. Patient verbalized understanding of instructions. Vanessa Lorenzo PharmD, BCPS VANESSA LORENZO, PHARMACIST 05/29/2018 9:49 AM Signed Metformin - 1 pill in the morning (with Lantus) and 1 pill in the evening (with Lantus) Lantus 38 units morning and evening Novolog - 10 units right before dinner (no sliding scale) If low sugar (feeling low or it drops less than 70) - quick sugar = 3-4 of glucose tablets Vanessa will call you this Tuesday Vanessa Lorenzo PharmD, [facility] [phone] Treatment for hypoglycemia Test your blood sugar level if you can. If you think you are low, and cannot test, treat with one of the following. Each contain 15 grams of carbohydrate. 1/2 cup fruit juice 1 tube of instant glucose gel 1/2 cup soda (not diet) 3 peppermint candies 3 glucose tablets 5 lifesaver candies Rule of 15 Eat one serving of carbohydrate (15 grams). Wait 15 minutes, retest. If your blood sugar is less than 70, repeat treatment. If your next meal is more than 1/2 hour away, follow up with a small snack. 1/2 sandwich, 1 oz cheese with 4-6 crackers or 1 tsp peanut butter and 6 crackers. If you missed a meal : EAT your meal. If you still don't feel better call your Physician, Nurse second rigger or 911 Record the event in your log, date/time, possible causes, and what you did to treat it. Referring Provider: BRAYAN ARITA [[id number]] Allergies As of Date: 05/29/2018 Noted Allergy Reaction JESENIA INHIBITORS 03/27/2014 3 - Cough NSAIDS (NON-STEROIDAL ANTI-INFLAM*05/09/2009 8 - GI Upset TAPE (ADHESIVE TAPE (ROSINS)) 10/26/2016 14 - Other: See Comments Comments: Blisters from surgical tape Date Reviewed: 04/27/2018 Reviewed by: Cara Cleveland - Fully Assessed Reason for Visit: Allied Health Visit [5] Cmt: DM initial Primary Visit Diagnosis: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, with long-term current use of insulin, macular edema presence unspecified, unspecified laterality, unspecified proliferative retinopathy* ([facility]) [E11.3599, Z79.4] Other Visit Diagnoses:Essential hypertension [I10] Mixed hyperlipidemia [E78.2] Order(s):insulin aspart U-100 (NOVOLOG) 100 unit/mL inpnInject 10 Units subcutaneously three times daily before meals.Disp: 5 PenRfl: 3 metFORMIN (GLUCOPHAGE) 1,000 mg tabletTake 1 tablet by mouth twice daily with meals.Disp: 60 tabletRfl: [address] (PROTONIX) 40 mg tabletTake 1 tablet by mouth once daily.Disp: Rfl: Prescriptions as of 05/29/2018 Sig: BETHANECHOL CHLORIDE 25 MG TA* SULFASALAZINE 500 MG TABLET,D* INSULIN ASPART U-100 100 UNI* Inject 10 Units subcutaneousl* METFORMIN 1,000 MG TABLET Take 1 tablet by mouth twice * PANTOPRAZOLE 40 MG TABLET,DEL* Take 1 tablet by mouth once d* GABAPENTIN 300 MG CAPSULE Take 1 capsule by mouth once * BLOOD SUGAR DIAGNOSTIC STRIPS Test blood sugar(s) 3 times d* BLOOD-GLUCOSE METER KIT Glucose Meter of Choice - Kit* INSULIN GLARGINE (U-100) 100 * Inject 38 Units subcutaneousl* ALENDRONATE 70 MG TABLET Take 1 tablet by mouth once e* LOSARTAN 100 MG TABLET Take 1 tablet by mouth once d* OXYBUTYNIN CHLORIDE 5 MG TABL* Take 1 tablet by mouth once d* FLUTICASONE 50 MCG/ACTUATION * Use 1 Blanch in each nostril d* HYDROCHLOROTHIAZIDE 12.5 MG C* TAKE ONE CAPSULE BY MOUTH ONC* COMPOUNDED PRESCRIPTION Insulin needles-1/2 cc for 10* FLUOROMETHOLONE 0.1 % EYE MARINE* Use 2 Drops in the left eye t* ASPIRIN 81 MG TABLET,DELAYED * Take 81 mg by mouth once burt* METHOTREXATE SODIUM 2.5 MG TA* Take 20 mg by mouth every Sun* PEN NEEDLE, DIABETIC 31 GAUGE* Use one needle per dose. 4 pe* FOLIC ACID 1 MG TABLET Take 2 tablets by mouth once * * CALCIUM 600 ORAL Take by mouth once daily. * CENTRUM SILVER ORAL Take by mouth once daily. Problem List As Of Date 05/29/2018 Noted Resolved BENIGN HYPERTENSION [I10] INVALID FOR*09/01/2007 Hyperlipidemia [E78.5] INVALID FOR* LOC PRIM OSTEOART-PELVIS [M16.10] INVALID FOR*06/04/2006 Allergic rhinitis [J30.9] INVALID FOR* Diabetes (HCC) [E11.9] INVALID FOR*06/27/2015 Unspecified sleep apnea [G47.30] INVALID FOR*12/07/2013 More... Osteoarthritis [M19.90] INVALID FOR* Irritable bowel syndrome [K58.9] INVALID FOR*11/25/2016 Dysuria [R30.0] INVALID FOR*05/25/2016 Unspecified sinusitis (chronic) [J32.9] INVALID FOR*05/25/2016 Other specified disorder of bladder [596.8] INVALID FOR*11/25/2016 ASYMPTOMATIC VARICOSE VEINS [I83.90] INVALID FOR* REFLUX ESOPHAGITIS [K21.0] ESOPHAGITIS, UNSPECIFIED [K20.9] INVALID FOR*07/30/2008 Malignant neoplasm of female breast (HCC) [C50.*INVALID FOR*05/25/2016 IBS (Irritable Bowel Syndrome) [K58.9] Heme positive stool [R19.5] 11/22/2013 Routine general medical examination at a health*INVALID FOR*11/22/2013 HTN (hypertension) [I10] INVALID FOR* Urge incontinence [N39.41] INVALID FOR* Inflammatory polyarthritis (HCC) [M06.4] More... Type 2 diabetes mellitus with diabetic retinopa*INVALID FOR* History of cervical cancer [Z85.41] More... History of breast cancer [Z85.3] INVALID FOR* H/O left mastectomy [Z90.12] INVALID FOR* Obesity, Class I, BMI 30-34.9 [E66.9] INVALID FOR* Other instructions from your clinician: Metformin - 1 pill in the morning (with Lantus) and 1 pill in the evening (with Lantus) Lantus 38 units morning and evening Novolog - 10 units right before dinner (no sliding scale) If low sugar (feeling low or it drops less than 70) - quick sugar = 3-4 of glucose tablets Vanessa will call you this Tuesday Vanessa Lorenzo, PharmD, [facility] [phone] Treatment for hypoglycemia Test your blood sugar level if you can. If you think you are low, and cannot test, treat with one of the following. Each contain 15 grams of carbohydrate. 1/2 cup fruit juice 1 tube of instant glucose gel 1/2 cup soda (not diet) 3 peppermint candies 3 glucose tablets 5 lifesaver candies Rule of 15 Eat one serving of carbohydrate (15 grams). Wait 15 minutes, retest. If your blood sugar is less than 70, repeat treatment. If your next meal is more than 1/2 hour away, follow up with a small snack. 1/2 sandwich, 1 oz cheese with 4-6 crackers or 1 tsp peanut butter and 6 crackers. If you missed a meal : EAT your meal. If you still don't feel better call your Physician, Nurse second rigger or 911 Record the event in your log, date/time, possible causes, and what you did to treat it. Prescriptions ordered this encounter Disp Refills Start End INSULIN ASPART U-100 100 UNIT/ML TEJADA* 5 Pen 3 05/29/2018 Route: SUBCUTANEOUS Sig: Inject 10 Units subcutaneously three times daily before meals. METFORMIN 1,000 MG TABLET 60 t* 3 05/29/2018 Route: ORAL Sig: Take 1 tablet by mouth twice daily with meals. PANTOPRAZOLE 40 MG TABLET,DELAYED RE* 05/29/2018 Class: OTC Route: ORAL Sig: Take 1 tablet by mouth once daily. Medications Discontinued During This Encounter doxycycline monohydrate (MONODOX) 10* 20 c* 0 05/05/2018 05/29/2018 Route: ORAL Sig: Take 1 capsule by mouth twice daily. Disc: Course of therapy completed mupirocin (BACTROBAN) 2 % ointment 30 g 0 03/03/2017 05/29/2018 Route: TOPICAL Sig: Apply 1 application to affected area three times daily. [facility] Disc: Course of therapy completed traMADol (ULTRAM) 50 mg tablet 05/29/2018 Class: Historical Med Route: ORAL Sig: Take 50 mg by mouth every 8 hours as needed for Pain. Disc: Reason for discontinue is not on file. triamcinolone acetonide (KENALOG) 0.* 30 g 0 10/12/2016 05/29/2018 Route: TOPICAL Sig: Apply 1 application to affected area twice daily. Disc: Reason for discontinue is not on file. insulin lispro (HUMALOG U-100 INSULI* 1 Vi* 0 04/20/2018 05/29/2018 Class: Med Update Si units three times a day and Sliding scale: 151-200 give 2 units 201-250 give 4 units 251-300 give 6 units 301-350 give 8 units Above 350, notify PCP Disc: Course of therapy completed metFORMIN (GLUCOPHAGE) 1,000 mg tabl* 30 t* 5 04/20/2018 05/29/2018 Cmt: Please consider 90 day supplies to promote better adherence Sig: TAKE ONE TABLET BY MOUTH ONCE DAILY WITH BREAKFAST Disc: Changing Therapy/Dosage Form metFORMIN (GLUCOPHAGE) 1,000 mg tabl* 30 t* 5 04/20/2018 05/29/2018 Route: ORAL Sig: Take 1 tablet by mouth daily with breakfast. Disc: Reason for discontinue is not on file. blood sugar diagnostic (ONETOUCH ULT* 100 * 11 02/25/2018 05/29/2018 Route: OTHER Si Strip three times daily before meals. Dx: E11.319 Insulin: Yes Disc: Duplicate Entry Blood-Glucose Meter (ONE TOUCH ULTRA* 1 Ea* 0 06/14/2011 05/29/2018 Route: Miscell. (Med.Supl.;Non-Drugs) Si Each as needed. Disc: Duplicate Entry esomeprazole (NEXIUM) 40 mg capsule 180 * 3 11/07/2017 05/29/2018 Route: ORAL Sig: Take 1 capsule by mouth twice daily before meals. 1/2 hr before meal. Disc: Cost of medication Encounter Status:Closed by MAURA (PHARMACIST)VANESSA on 05/30/18 XR CHEST 2V FRONTAL/LAT Observed: 05/05/2018 Status: F Source: [place] 1:12 PM [facility] [place] REPOSITORY * * *Final Report* * * DATE OF EXAM: May 05 2018 1:12PM WOX [id number] - XR CHEST 2V FRONTAL/LAT / PROCEDURE REASON: Cough * * * * Physician Interpretation * * * * EXAMINATION: CHEST RADIOGRAPH (2 VIEW FRONTAL and LATERAL) CLINICAL HISTORY: Cough MQ: XC2_5 Comparison: 07/08/2017 RESULT: Lines, tubes, and devices: None. Lungs and pleura: No consolidation. No lung mass. No pleural effusion. Cardiomediastinal silhouette: Normal cardiomediastinal silhouette. Other: Thoracic spine degenerative changes. IMPRESSION: No acute radiographic abnormality. Supervisor [employer]: PSCB Transcribe Date/Time: May 05 2018 2:08P Dictated by : SANG RUIZ MD This examination was interpreted and the report reviewed and electronically signed by: SANG RUIZ MD on May 05 2018 2:08PM EST [id number] PROGRESS Observed: 05/05/2018 Status: COMPLETED Source: [place] 1:03 PM [facility] REPOSITORY HNO ID: [id number] Author: Gabbi Harden (Rt) Alina Parker Service: (none) Author Type: Supervisor Special Services Type: Progress Notes Filed: 05/05/2018 1:12 PM Note Text: Radiology Service Progress Note PATIENT NAME: Manisha Keith DATE OF SERVICE: May 05, 2018 TIME: 1:03 PM PATIENT IDENTITY VERIFICATION COMPLETED USING TWO (2) METHODS: Patient confirmed name verbally and Date of . PATIENT GENDER DATA: Female. status: : No status: NO. PATIENT RELEVANT IMPLANT DATA REVIEWED: Not Applicable RADIOLOGY DEPARTMENT: General X-ray: Exam(s) Completed: Chest X-Ray PERIPHERAL IV DATA: Not applicable SIGNED BY: RT Christopher May 05, 2018 1:03 PM PROGRESS Observed: 05/05/2018 Status: COMPLETED Source: [place] 12:43 PM [facility] REPOSITORY HNO ID: [id number] Author: Brayan Arita Service: (none) Author Type: Physician Type: Progress Notes Filed: 05/05/2018 12:54 PM Note Text: Patient presents with: Hypertension Cough Muscle Aches HPI: Patient presents today for office visit for follow up from last visit. Nursing Notes: Kerry Spivey Ma 05/05/2018 12:21 PM Signed BRONCHITIS: Pt finished the antibiotic. She still c/o productive cough. Has some wheezing, but denies SOB. MUSCLE CRAMPING: Decreased in frequency and intensity. DM: Added Humalog. Sugars running lower than 300. Has seen salesperson floor coverings. Has an appt to see pharmacy. Muscle cramping is improved. Is slightly anemic. We are doing additional labs. Sugars are improving a little. Had three low sugars. Forgot her sugar list, will call in. Is having less thirst and less urination. No dizziness No chest pain or shortness of breath. Still cough and wheezing. Has a lot of sinus congestion. No ear pain No sore throat. No heartburn. No nausea or vomiting or diarrhea. Was on ceftin. Component Latest Ref Rng AND Units 04/19/2018 04/20/2018 WBC 3.70 - 11.00 k/uL 6.26 RBC 3.90 - 5.20 m/uL 3.60 (L) Hemoglobin 11.5 - 15.5 g/dL 11.0 (L) Hematocrit 36.0 - 46.0 % 34.8 (L) MCV 80.0 - 100.0 fL 96.7 MCH 26.0 - 34.0 pG 30.6 MCHC 30.5 - 36.0 g/dL 31.6 RDW-CV 11.5 - 15.0 % 13.7 Platelet Count 150 - 400 k/uL 258 MPV 9.0 - 12.7 fL 9.7 Neut% % 63.8 Abs Neut (ANC) 1.45 - 7.50 k/uL 3.98 Lymph% % 27.0 Abs Lymph 1.00 - 4.00 k/uL 1.69 Larue% % 6.1 Abs Larue <0.87 k/uL 0.38 Eosin% % 2.6 Abs Eosin <0.46 k/uL 0.16 Baso% % 0.5 Abs Baso <0.11 k/uL 0.03 Nucleated Reds 0 /100 WBC 0.0 Absolute nRBC <0.01 k/uL <0.01 Diff Type Auto Diff Color Yellow Yellow Clarity Clear Clear Glucose, Urine Negative mg/dL Negative Bilirubin, Urine Negative Negative Ketones, Urine Negative Negative Specific [place], Ur 1.005 - 1.030 1.005 Hemoglobin/Blood,Ur Negative Negative pH, Urine 4.5 - 8.0 7.0 Protein, Urine Negative mg/dL Negative Urobilinogen Normal Normal Nitrites Negative Negative Leukest Negative Negative Comments SEE COMMENT Urine Blu Comment SEE COMMENT WBC, Urine 0 - 5 /HPF 0-5 RBC, Urine 0 - 3 /HPF 0-3 Epithelial Cells /HPF SEE COMMENT Glucose 74 - 99 mg/dL 106 (H) BUN 7 - 21 mg/dL 12 Creatinine 0.58 - 0.96 mg/dL 0.84 Sodium 136 - 144 mmol/L 140 Potassium 3.7 - 5.1 mmol/L 4.3 Chloride 97 - 105 mmol/L 99 CO2 22 - 30 mmol/L 27 Anion Gap 9 - 18 mmol/L 14 Calcium 8.5 - 10.2 mg/dL 9.5 eGFR- >60 eGFR-All Other Races . >60 Hemoglobin A1C 4.3 - 5.6 % 8.9 (H) Estimated Average Glucose mg/dL 209 Specimen Request Best Practice Alert: To ensure optimal transport conditions and accurate culture . . . Culture <10,000 CFU/ml . . . Magnesium 1.7 - 2.3 mg/dL 1.8 CK 42 - 196 U/L 95 WSR 0 - 20 mm/hr 31 (H) MEDICATIONS: Current Outpatient Prescriptions: metFORMIN (GLUCOPHAGE) 1,000 mg tablet TAKE ONE TABLET BY MOUTH ONCE DAILY WITH BREAKFAST insulin lispro (HUMALOG U-100 INSULIN) 100 unit/mL injection 2 units three times a day and Sliding scale:151-200 give 2 -063 give 4 [id number] give 6 [id number] give 8 unitsAbove 350, notify PCP gabapentin (NEURONTIN) 300 mg capsule Take 1 capsule by mouth once daily for 91 days. metFORMIN (GLUCOPHAGE) 1,000 mg tablet Take 1 tablet by mouth daily with breakfast. blood sugar diagnostic (BLOOD GLUCOSE TEST) test strip Test blood sugar(s) 3 times daily. Dx: Type 2 DM - Controlled E11.9 Insulin: YES Blood-Glucose Meter monitoring kit Glucose Meter of Choice - Kit - Dx: Type 2 DM - Controlled E11.9 blood sugar diagnostic (ONETOUCH ULTRA TEST) test strip 1 Strip three times daily before meals. Dx: E11.319 Insulin: Yes insulin glargine (LANTUS SOLOSTAR U-100 INSULIN) 100 unit/mL (3 mL) inpn Inject 38 Units subcutaneously twice daily. alendronate (FOSAMAX) 70 mg tablet Take 1 tablet by mouth once each week. Take with a full glass of water, on an empty stomach; do NOT lie down for 30minutes. losartan (COZAAR) 100 mg tablet Take 1 tablet by mouth once daily. oxybutynin (DITROPAN) 5 mg tablet Take 1 tablet by mouth once daily. esomeprazole (NEXIUM) 40 mg capsule Take 1 capsule by mouth twice daily before meals. 1/2 hr before meal. fluticasone (FLONASE) 50 mcg/actuation nasal spray Use 1 Blanch in each nostril daily at bedtime. Use as directed. Hydrochlorothiazide 12.5 mg capsule TAKE ONE CAPSULE BY MOUTH ONCE DAILY COMPOUNDED PRESCRIPTION Insulin needles-1/2 cc for 100 uUse up to 4 a day fluorometholone (FML LIQUID FILM) 0.1 % ophthalmic suspension Use 2 Drops in the left eye twice daily. traMADol (ULTRAM) 50 mg tablet Take 50 mg by mouth every 8 hours as needed for Pain. mupirocin (BACTROBAN) 2 % ointment Apply 1 application to affected area three times daily. Location: [facility] aspirin, enteric coated (ASPIRIN, ENTERIC COATED) 81 mg EC tablet Take 81 mg by mouth once daily. triamcinolone acetonide (KENALOG) 0.1 % cream Apply 1 application to affected area twice daily. methotrexate 2.5 mg tablet Take 20 mg by mouth every Tuesday. insulin needles, DISPOSABLE, (PEN NEEDLE) 31 gauge x 5/16 ndle Use one needle per dose. 4 per day. folic acid 1 mg tablet Take 2 tablets by mouth once daily. Dr. Johnson CALCIUM CARBONATE (CALCIUM 600 ORAL) Take by mouth once daily. MULTIVITAMIN W-MINERALS/LUTEIN (CENTRUM SILVER ORAL) Take by mouth once daily. Blood-Glucose Meter (ONE TOUCH ULTRA SYSTEM KIT) Misc monitoring kit 1 Each as needed. No current facility-administered medications for this visit. ALLERGIES: ALLERGIES Allergen Reactions - Jesenia Inhibitors Cough - Nsaids (Non-Steroid* GI Upset - Tape [Adhesive Tape* Other: See Comments Blisters from surgical tape PAST MEDICAL HISTORY Diagnosis Date - Allergic rhinitis, cause unspecified - Breast cancer (HCC) age 34-had lump, cancerous cells. no issues since - Diverticulosis of colon (without mention of hemorrhage) - Heme positive stool 2010 - History of cervical cancer regular Paps for life - Hyperlipidemia 2010 - Inflammatory polyarthritis (HCC) Dr. 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) - Type II or unspecified type diabetes mellitus without mention of complication, not stated as uncontrolled - Unspecified essential hypertension PAST SURGICAL HISTORY Procedure Laterality Date - APPENDECTOMY - COLONOSCOP W/ OR W/O BRSH SPEC 06/26/09 - EGD 2010 - ERCP W/O BRUSH/WASH SPECIMEN 07/23/2008 Cholangiopancreatography (ERCP) - MASTECTOMY age 34 Mastectomy - simple - REMV 2ND CATARACT,CORN-SCLER SECTN Cataract removal BILATERAL - TOTAL ABDOM HYSTERECTOMY age 27 Hysterectomy, MARQUES cervical cancer FAMILY HISTORY Problem Relation Age of Onset - None Mother - None Father - Breast Cancer Maternal Aunt - Stroke Sister - Cancer Sister - COPD Sister Social History Marital status: Spouse name: Years of education: Number of children: 2 Occupational History Occupation Employer Comment [employer] Social History Main Topics Smoking status: Former Smoker Packs/day: 0.75 Years: 30.00 Types: Cigarettes Quit date: 08/15/2000 Smokeless tobacco: Never Used Alcohol use: Yes Comment: rarely Drug use: No Sexual activity: No Reviewed current medications, allergies, past medical history, surgical history, family history and social history today. REVIEW OF SYSTEMS All other reviewed and negative other than HPI. HEALTH MAINTENANCE: Reviewed health maintenance issues today and recommended the following in detail. INFLUENZA-will get at work. VITALS: BP 120/68 Pulse 92 Temp 36.4 ?C (97.6 ?F) (Tympanic) Resp 16 Wt 80.7 kg (178 lb) BMI 32.56 kg/m? Last 4 Encounter Wt Readings: Date: Wt: 05/05/2018 80.7 kg (178 lb) 04/27/2018 81.2 kg (179 lb) 04/20/2018 81.6 kg (180 lb) 01/10/2018 76.4 kg (168 lb 6.4 oz) PHYSICAL EXAMINATION: General appearance: Well appearing, alert, in no acute distress, well-hydrated, well nourished. Skin: Skin color, texture, turgor normal, no suspicious rashes or lesions Head: Normocephalic, no masses, lesions, tenderness or abnormalities Eyes: Anicteric sclera. Pupils are equally round and reactive to light. Extraocular movements are intact. Ears: External ears normal, canals clear Nose/Sinuses: Nares normal, septum midline, mucosa normal, no drainage or sinus tenderness Oropharynx: Lips, mucosa, and tongue normal, teeth and gums normal, oropharynx normal and has a lot of posterior pharyngeal drainage. Neck: supple Lungs: Unlabored on room air, Negative findings: normal respiratory rate and rhythm and lungs clear to auscultation Heart: RRR without murmur, gallop, or rubs. No ectopy Abdomen: Normal abdominal exam, Abdomen soft, non-tender. Bowel sounds normal. No masses, organomegaly Extremities: No deformities, edema, skin discoloration, clubbing or cyanosis. Good capillary refill. PSYCH:Affect normal. Normal speech. Normal eye contact ASSESSMENT/PLAN: 1. 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, with long-term current use of insulin, macular edema presence unspecified, unspecified laterality, unspecified proliferative retinopathy* (HCC) - ICD9: 250.50, 362.02, V58.67, ICD10: E11.3599, Z79.4 (primary diagnosis) uncontrolled - Call with sugar list and see pharmacy. 2. Essential hypertension - ICD9: 401.9, ICD10: I10 - good control - Continue current medication(s) - Goal of BP <130/80 3. Bronchitis - ICD9: 490, ICD10: J40 - change to doxycycline and get chest xray. - Discussed risks and benefits of new medication with the patient. Advised them to call if any side effects or questions. - Call if symptoms worsen at all or if not better in one to two weeks 4. Polyarthralgia - ICD9: 719.49, ICD10: M25.50 - see rheum 5. Muscle cramps - ICD9: 729.82, ICD10: R25.2 - since improving. Will follow. Await labs. 6. Cough - ICD9: 786.2, ICD10: R05 - XR CHEST 2V FRONTAL/LAT - DOXYCYCLINE MONOHYDRATE 100 MG CAPSULE Brayan Arita MD RTO in three months and prn. CNOV Observed: 05/05/2018 Status: COMPLETED Source: [place] 12:00 PM [facility] REPOSITORY [facility] KEITHMANISHA ([id number]) 1950 F Date Time Provider Department 05/05/18 12:00 PM BRAYAN ARITA During your visit today, we recorded the following information about you: Temperature Pulse Respiration Blood pressure 97.6 degrees 92/minute 16/minute 120/68 Weight 80.7 kg Kerry Patric Tello 05/05/2018 12:21 PM Signed BRONCHITIS: Pt finished the antibiotic. She still c/o productive cough. Has some wheezing, but denies SOB. MUSCLE CRAMPING: Decreased in frequency and intensity. DM: Added Humalog. Sugars running lower than 300. Brayan Arita MD 05/05/2018 12:54 PM Signed Patient presents with: Hypertension Cough Muscle Aches HPI: Patient presents today for office visit for follow up from last visit. Nursing Notes: Kerry Spivey Ma 05/05/2018 12:21 PM Signed BRONCHITIS: Pt finished the antibiotic. She still c/o productive cough. Has some wheezing, but denies SOB. MUSCLE CRAMPING: Decreased in frequency and intensity. DM: Added Humalog. Sugars running lower than 300. Has seen salesperson floor coverings. Has an appt to see pharmacy. Muscle cramping is improved. Is slightly anemic. We are doing additional labs. Sugars are improving a little. Had three low sugars. Forgot her sugar list, will call in. Is having less thirst and less urination. No dizziness No chest pain or shortness of breath. Still cough and wheezing. Has a lot of sinus congestion. No ear pain No sore throat. No heartburn. No nausea or vomiting or diarrhea. Was on ceftin. Component Latest Ref Rng AND Units 04/19/2018 04/20/2018 WBC 3.70 - 11.00 k/uL 6.26 RBC 3.90 - 5.20 m/uL 3.60 (L) Hemoglobin 11.5 - 15.5 g/dL 11.0 (L) Hematocrit 36.0 - 46.0 % 34.8 (L) MCV 80.0 - 100.0 fL 96.7 MCH 26.0 - 34.0 pG 30.6 MCHC 30.5 - 36.0 g/dL 31.6 RDW-CV 11.5 - 15.0 % 13.7 Platelet Count 150 - 400 k/uL 258 MPV 9.0 - 12.7 fL 9.7 Neut% % 63.8 Abs Neut (ANC) 1.45 - 7.50 k/uL 3.98 Lymph% % 27.0 Abs Lymph 1.00 - 4.00 k/uL 1.69 Larue% % 6.1 Abs Larue <0.87 k/uL 0.38 Eosin% % 2.6 Abs Eosin <0.46 k/uL 0.16 Baso% % 0.5 Abs Baso <0.11 k/uL 0.03 Nucleated Reds 0 /100 WBC 0.0 Absolute nRBC <0.01 k/uL <0.01 Diff Type Auto Diff Color Yellow Yellow Clarity Clear Clear Glucose, Urine Negative mg/dL Negative Bilirubin, Urine Negative Negative Ketones, Urine Negative Negative Specific [place], Ur 1.005 - 1.030 1.005 Hemoglobin/Blood,Ur Negative Negative pH, Urine 4.5 - 8.0 7.0 Protein, Urine Negative mg/dL Negative Urobilinogen Normal Normal Nitrites Negative Negative Leukest Negative Negative Comments SEE COMMENT Urine Blu Comment SEE COMMENT WBC, Urine 0 - 5 /HPF 0-5 RBC, Urine 0 - 3 /HPF 0-3 Epithelial Cells /HPF SEE COMMENT Glucose 74 - 99 mg/dL 106 (H) BUN 7 - 21 mg/dL 12 Creatinine 0.58 - 0.96 mg/dL 0.84 Sodium 136 - 144 mmol/L 140 Potassium 3.7 - 5.1 mmol/L 4.3 Chloride 97 - 105 mmol/L 99 CO2 22 - 30 mmol/L 27 Anion Gap 9 - 18 mmol/L 14 Calcium 8.5 - 10.2 mg/dL 9.5 eGFR- >60 eGFR-All Other Races . >60 Hemoglobin A1C 4.3 - 5.6 % 8.9 (H) Estimated Average Glucose mg/dL 209 Specimen Request Best Practice Alert: To ensure optimal transport conditions and accurate culture . . . Culture <10,000 CFU/ml . . . Magnesium 1.7 - 2.3 mg/dL 1.8 CK 42 - 196 U/L 95 WSR 0 - 20 mm/hr 31 (H) MEDICATIONS: Current Outpatient Prescriptions: metFORMIN (GLUCOPHAGE) 1,000 mg tablet TAKE ONE TABLET BY MOUTH ONCE DAILY WITH BREAKFAST insulin lispro (HUMALOG U-100 INSULIN) 100 unit/mL injection 2 units three times a day and Sliding scale:151-200 give 2 [id number] give 4 [id number] give 6 -422 give 8 unitsAbove 350, notify PCP gabapentin (NEURONTIN) 300 mg capsule Take 1 capsule by mouth once daily for 91 days. metFORMIN (GLUCOPHAGE) 1,000 mg tablet Take 1 tablet by mouth daily with breakfast. blood sugar diagnostic (BLOOD GLUCOSE TEST) test strip Test blood sugar(s) 3 times daily. Dx: Type 2 DM - Controlled E11.9 Insulin: YES Blood-Glucose Meter monitoring kit Glucose Meter of Choice - Kit - Dx: Type 2 DM - Controlled E11.9 blood sugar diagnostic (ONETOUCH ULTRA TEST) test strip 1 Strip three times daily before meals. Dx: E11.319 Insulin: Yes insulin glargine (LANTUS SOLOSTAR U-100 INSULIN) 100 unit/mL (3 mL) inpn Inject 38 Units subcutaneously twice daily. alendronate (FOSAMAX) 70 mg tablet Take 1 tablet by mouth once each week. Take with a full glass of water, on an empty stomach; do NOT lie down for 30minutes. losartan (COZAAR) 100 mg tablet Take 1 tablet by mouth once daily. oxybutynin (DITROPAN) 5 mg tablet Take 1 tablet by mouth once daily. esomeprazole (NEXIUM) 40 mg capsule Take 1 capsule by mouth twice daily before meals. 1/2 hr before meal. fluticasone (FLONASE) 50 mcg/actuation nasal spray Use 1 Blanch in each nostril daily at bedtime. Use as directed. Hydrochlorothiazide 12.5 mg capsule TAKE ONE CAPSULE BY MOUTH ONCE DAILY COMPOUNDED PRESCRIPTION Insulin needles-1/2 cc for 100 uUse up to 4 a day fluorometholone (FML LIQUID FILM) 0.1 % ophthalmic suspension Use 2 Drops in the left eye twice daily. traMADol (ULTRAM) 50 mg tablet Take 50 mg by mouth every 8 hours as needed for Pain. mupirocin (BACTROBAN) 2 % ointment Apply 1 application to affected area three times daily. Location: [facility] aspirin, enteric coated (ASPIRIN, ENTERIC COATED) 81 mg EC tablet Take 81 mg by mouth once daily. triamcinolone acetonide (KENALOG) 0.1 % cream Apply 1 application to affected area twice daily. methotrexate 2.5 mg tablet Take 20 mg by mouth every Tuesday. insulin needles, DISPOSABLE, (PEN NEEDLE) 31 gauge x 5/16 ndle Use one needle per dose. 4 per day. folic acid 1 mg tablet Take 2 tablets by mouth once daily. Dr. Johnson CALCIUM CARBONATE (CALCIUM 600 ORAL) Take by mouth once daily. MULTIVITAMIN W-MINERALS/LUTEIN (CENTRUM SILVER ORAL) Take by mouth once daily. Blood-Glucose Meter (ONE TOUCH ULTRA SYSTEM KIT) Misc monitoring kit 1 Each as needed. No current facility-administered medications for this visit. ALLERGIES: ALLERGIES Allergen Reactions - Jesenia Inhibitors Cough - Nsaids (Non-Steroid* GI Upset - Tape [Adhesive Tape* Other: See Comments Blisters from surgical tape PAST MEDICAL HISTORY Diagnosis Date - Allergic rhinitis, cause unspecified - Breast cancer (HCC) age 34-had lump, cancerous cells. no issues since - Diverticulosis of colon (without mention of hemorrhage) - Heme positive stool 2010 - History of cervical cancer regular Paps for life - Hyperlipidemia 2011 - Inflammatory polyarthritis (HCC) Dr. 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) - Type II or unspecified type diabetes mellitus without mention of complication, not stated as uncontrolled - Unspecified essential hypertension PAST SURGICAL HISTORY Procedure Laterality Date - APPENDECTOMY - COLONOSCOP W/ OR W/O BRSH SPEC 06/26/09 - EGD 2010 - ERCP W/O BRUSH/WASH SPECIMEN 07/23/2008 Cholangiopancreatography (ERCP) - MASTECTOMY age 34 Mastectomy - simple - REMV 2ND CATARACT,CORN-SCLER SECTN Cataract removal BILATERAL - TOTAL ABDOM HYSTERECTOMY age 27 Hysterectomy, MARQUES cervical cancer FAMILY HISTORY Problem Relation Age of Onset - None Mother - None Father - Breast Cancer Maternal Aunt - Stroke Sister - Cancer Sister - COPD Sister Social History Marital status: Spouse name: Years of education: Number of children: 2 Occupational History Occupation Employer Comment [employer] Social History Main Topics Smoking status: Former Smoker Packs/day: 0.75 Years: 30.00 Types: Cigarettes Quit date: 08/15/2000 Smokeless tobacco: Never Used Alcohol use: Yes Comment: rarely Drug use: No Sexual activity: No Reviewed current medications, allergies, past medical history, surgical history, family history and social history today. REVIEW OF SYSTEMS All other reviewed and negative other than HPI. HEALTH MAINTENANCE: Reviewed health maintenance issues today and recommended the following in detail. INFLUENZA-will get at work. VITALS: BP 120/68 Pulse 92 Temp 36.4 ?C (97.6 ?F) (Tympanic) Resp 16 Wt 80.7 kg (178 lb) BMI 32.56 kg/m? Last 4 Encounter Wt Readings: Date: Wt: 05/05/2018 80.7 kg (178 lb) 04/27/2018 81.2 kg (179 lb) 04/20/2018 81.6 kg (180 lb) 01/10/2018 76.4 kg (168 lb 6.4 oz) PHYSICAL EXAMINATION: General appearance: Well appearing, alert, in no acute distress, well-hydrated, well nourished. Skin: Skin color, texture, turgor normal, no suspicious rashes or lesions Head: Normocephalic, no masses, lesions, tenderness or abnormalities Eyes: Anicteric sclera. Pupils are equally round and reactive to light. Extraocular movements are intact. Ears: External ears normal, canals clear Nose/Sinuses: Nares normal, septum midline, mucosa normal, no drainage or sinus tenderness Oropharynx: Lips, mucosa, and tongue normal, teeth and gums normal, oropharynx normal and has a lot of posterior pharyngeal drainage. Neck: supple Lungs: Unlabored on room air, Negative findings: normal respiratory rate and rhythm and lungs clear to auscultation Heart: RRR without murmur, gallop, or rubs. No ectopy Abdomen: Normal abdominal exam, Abdomen soft, non-tender. Bowel sounds normal. No masses, organomegaly Extremities: No deformities, edema, skin discoloration, clubbing or cyanosis. Good capillary refill. PSYCH:Affect normal. Normal speech. Normal eye contact ASSESSMENT/PLAN: 1. 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 2. Essential hypertension - ICD9: 401.9, ICD10: I10 - good control - Continue current medication(s) - Goal of BP <130/80 3. Bronchitis - ICD9: 490, ICD10: J40 - change to doxycycline and get chest xray. - Discussed risks and benefits of new medication with the patient. Advised them to call if any side effects or questions. - Call if symptoms worsen at all or if not better in one to two weeks 4. Polyarthralgia - ICD9: 719.49, ICD10: M25.50 - see rheum 5. Muscle cramps - ICD9: 729.82, ICD10: R25.2 - since improving. Will follow. Await labs. 6. Cough - ICD9: 786.2, ICD10: R05 - XR CHEST 2V FRONTAL/LAT - DOXYCYCLINE MONOHYDRATE 100 MG CAPSULE Brayan Arita MD RTO in three months and prn. Referring Provider: SELF [[id number]] Allergies As of Date: 05/05/2018 Noted Allergy Reaction JESENIA INHIBITORS 03/27/2014 3 - Cough NSAIDS (NON-STEROIDAL ANTI-INFLAM*05/09/2009 8 - GI Upset TAPE (ADHESIVE TAPE (ROSINS)) 10/26/2016 14 - Other: See Comments Comments: Blisters from surgical tape Date Reviewed: 04/27/2018 Reviewed by: [facility] Megha - Fully Assessed Reason for Visit: Hypertension [168] Cough [28] Muscle Aches [268] Reason For Visit History Recorded Primary Visit Diagnosis: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, with long-term current use of insulin, macular edema presence unspecified, unspecified laterality, unspecified proliferative retinopathy* ([facility]) [E11.3599, Z79.4] Other Visit Diagnoses:Essential hypertension [I10] Bronchitis [J40] Polyarthralgia [M25.50] Muscle cramps [R25.2] Cough [R05] Order(s):XR CHEST 2V FRONTAL/LAT [[id number]] Order #: [id number] FUTURE doxycycline monohydrate (MONODOX) 100 mg capsuleTake 1 capsule by mouth twice daily.Disp: 20 capsuleRfl: 0 Prescriptions as of 05/05/2018 Sig: METFORMIN 1,000 MG TABLET TAKE ONE TABLET BY MOUTH ONCE* INSULIN LISPRO (U-100) 100 UN* 2 units three times a day and* GABAPENTIN 300 MG CAPSULE Take 1 capsule by mouth once * METFORMIN 1,000 MG TABLET Take 1 tablet by mouth daily * BLOOD SUGAR DIAGNOSTIC STRIPS Test blood sugar(s) 3 times d* BLOOD-GLUCOSE METER KIT Glucose Meter of Choice - Kit* BLOOD SUGAR DIAGNOSTIC STRIPS 1 Strip three times daily bef* INSULIN GLARGINE (U-100) 100 * Inject 38 Units subcutaneousl* ALENDRONATE 70 MG TABLET Take 1 tablet by mouth once e* LOSARTAN 100 MG TABLET Take 1 tablet by mouth once d* OXYBUTYNIN CHLORIDE 5 MG TABL* Take 1 tablet by mouth once d* ESOMEPRAZOLE MAGNESIUM 40 MG * Take 1 capsule by mouth twice* FLUTICASONE 50 MCG/ACTUATION * Use 1 Blanch in each nostril d* HYDROCHLOROTHIAZIDE 12.5 MG C* TAKE ONE CAPSULE BY MOUTH ONC* COMPOUNDED PRESCRIPTION Insulin needles-1/2 cc for 10* FLUOROMETHOLONE 0.1 % EYE MARINE* Use 2 Drops in the left eye t* TRAMADOL 50 MG TABLET Take 50 mg by mouth every 8 h* MUPIROCIN 2 % TOPICAL OINTMENT Apply 1 application to affect* ASPIRIN 81 MG TABLET,DELAYED * Take 81 mg by mouth once burt* TRIAMCINOLONE ACETONIDE 0.1 %* Apply 1 application to affect* METHOTREXATE SODIUM 2.5 MG TA* Take 20 mg by mouth every Sun* PEN NEEDLE, DIABETIC 31 GAUGE* Use one needle per dose. 4 pe* FOLIC ACID 1 MG TABLET Take 2 tablets by mouth once * * CALCIUM 600 ORAL Take by mouth once daily. * CENTRUM SILVER ORAL Take by mouth once daily. * BLOOD-GLUCOSE METER KIT 1 Each as needed. DOXYCYCLINE MONOHYDRATE 100 M* Take 1 capsule by mouth twice* Problem List As Of Date 05/05/2018 Noted Resolved BENIGN HYPERTENSION [I10] INVALID FOR*09/01/2007 Hyperlipidemia [E78.5] INVALID FOR* LOC PRIM OSTEOART-PELVIS [M16.10] INVALID FOR*06/04/2006 Allergic rhinitis [J30.9] INVALID FOR* Diabetes (HCC) [E11.9] INVALID FOR*06/27/2015 Unspecified sleep apnea [G47.30] INVALID FOR*12/07/2013 More... Osteoarthritis [M19.90] INVALID FOR* Irritable bowel syndrome [K58.9] INVALID FOR*11/25/2016 Dysuria [R30.0] INVALID FOR*05/25/2016 Unspecified sinusitis (chronic) [J32.9] INVALID FOR*05/25/2016 Other specified disorder of bladder [596.8] INVALID FOR*11/25/2016 ASYMPTOMATIC VARICOSE VEINS [I83.90] INVALID FOR* REFLUX ESOPHAGITIS [K21.0] ESOPHAGITIS, UNSPECIFIED [K20.9] INVALID FOR*07/30/2008 Malignant neoplasm of female breast (HCC) [C50.*INVALID FOR*05/25/2016 IBS (Irritable Bowel Syndrome) [K58.9] Heme positive stool [R19.5] 11/22/2013 Routine general medical examination at [facility]*INVALID FOR*11/22/2013 HTN (hypertension) [I10] INVALID FOR* Urge incontinence [N39.41] INVALID FOR* Inflammatory polyarthritis (HCC) [M06.4] More... Type 2 diabetes mellitus with diabetic retinopa*INVALID FOR* History of cervical cancer [Z85.41] More... History of breast cancer [Z85.3] INVALID FOR* H/O left mastectomy [Z90.12] INVALID FOR* Obesity, Class I, BMI 30-34.9 [E66.9] INVALID FOR* Visit Notes: >> Kerry Lizagatha Tello TueMay 05, 2018 12:14 PM Status: Signed BRONCHITIS: Pt finished the antibiotic. She still c/o productive cough. Has some wheezing, but denies SOB. MUSCLE CRAMPING: Decreased in frequency and intensity. DM: Added Humalog. Sugars running lower than 300. Prescriptions ordered this encounter Disp Refills Start End DOXYCYCLINE MONOHYDRATE 100 MG CAPSU* 20 c* 0 05/05/2018 Route: ORAL Sig: Take 1 capsule by mouth twice daily. Encounter Status:Closed by BRAYAN ARITA MD on 05/05/18 CBC AND DIFFERENTIAL Collected: 05/05/2018 Status: F Source: [facility] 11[facility] TYPE CODE TESTS RESULT OUT OF REFERENCE UNITS RANGE LAB WBC 3.70-11.00 k/uL WBC 6.96 LAB RBC 3.90-5.20 m/uL RBC 3.98 LAB HGB 11.5-15.5 g/dL Hemoglobin 12.0 LAB HCT 36.0-46.0 % Hematocrit 38.3 LAB MCV 80.0-100.0 fL MCV 96.2 LAB MCH 26.0-34.0 pG MCH 30.2 LAB MCHC 30.5-36.0 g/dL MCHC 31.3 LAB RDWCV 11.5-15.0 % RDW-CV 14.2 LAB PLTCT 150-400 k/uL Platelet Count 320 LAB MPV 9.0-12.7 fL MPV 9.4 LAB ANEUT % Neut% 58.6 LAB AANEUT 1.45-7.50 k/uL Abs Neut 4.06 LAB ALYMP % Lymph% 31.2 LAB AALYMP 1.00-4.00 k/uL Abs Lymph 2.17 LAB AMONO % Larue% 7.3 LAB AAMONO <0.87 k/uL Abs Larue 0.51 LAB AEOS % Eosin% 2.3 LAB AAEOS <0.46 k/uL Abs Eosin 0.16 LAB ABASO % Baso% 0.6 LAB AABASO <0.11 k/uL Abs Baso 0.04 LAB AUNRBC 0 /100 WBC NRBCs 0.0 LAB ABNRBC <0.01 k/uL Absolute nRBC <0.01 LAB DTYP DTYPE Auto Diff Performed By: #### CBCDIF, IRON, B12, SERFOL #### [facility] [employer] [address] [place], [place] [address] IRON AND TIBC Collected: 05/05/2018 Status: F Source: [facility] 11:40 [facility] REPOSITORY TYPE CODE TESTS RESULT OUT OF REFERENCE UNITS RANGE LAB IRN 41-186 ug/dL Iron 50 LAB TIBC 232-386 ug/dL TIBC 317 LAB SAT 15-57 % Transferrin Saturatn 16 Performed By: #### CBCDIF, IRON, B12, SERFOL #### [facility] [employer] [address] [place], [place] [address] VITAMIN B12 Collected: 05/05/2018 Status: F Source: [facility] 11:40 [facility] REPOSITORY TYPE CODE TESTS RESULT OUT OF REFERENCE UNITS RANGE LAB B12 232-1245 pg/mL Vitamin B12 582 Performed By: #### CBCDIF, IRON, B12, SERFOL #### [facility] [employer] [address] [place], [place] [address] FOLATE, SERUM Collected: 05/05/2018 Status: F Source: [place] 11:40 AM [facility] REPOSITORY TYPE CODE TESTS RESULT OUT OF REFERENCE UNITS RANGE LAB SERFOL >4.7 ng/mL Folate, >20.0 Serum Result Comment: A result of > 20 ng/mL is not necessarily indicative of a pathologic or treatable condition: it reflects a limitation of the test methodology. Assay reference range: 4.8 to 24.2 ng/mL. Suitable for detection of folate deficiency. Reference: Folate III (Folate III) [package insert V 1.0 [place]]. [employer], [place], [place]: June 2015. Performed By: #### CBCDIF, IRON, B12, SERFOL #### [facility] [employer] [address] [place], [place] [address] PROGRESS Observed: 04/27/2018 Status: COMPLETED Source: [facility] 10:25 AM [facility] REPOSITORY HNO ID: [id number] Author: Cara York) Megha Service: (none) Author Type: Nurse Practitioner Type: Progress Notes Filed: 04/27/2018 11:25 AM Note Text: Manisha Keith is a 67 year old who presents for her annual gynecologic exam without complaints. 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 Obstetric History T2 L2 SAB0 TAB0 Ectopic0 Multiple0 Live Births0 PAST MEDICAL HISTORY Diagnosis Date - Allergic rhinitis, cause unspecified - Breast cancer (HCC) age 34-had lump, cancerous cells. no issues since - Diverticulosis of colon (without mention of hemorrhage) - Heme positive stool 2010 - History of cervical cancer regular Paps for life - Hyperlipidemia 2010 - Inflammatory polyarthritis (HCC) Dr. 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) - Type II or unspecified type diabetes mellitus without mention of complication, not stated as uncontrolled - Unspecified essential hypertension PAST SURGICAL HISTORY Procedure Laterality Date - APPENDECTOMY - COLONOSCOP W/ OR W/O BRSH SPEC 06/26/09 - EGD 2010 - ERCP W/O BRUSH/WASH SPECIMEN 07/23/2008 Cholangiopancreatography (ERCP) - MASTECTOMY age 34 Mastectomy - simple - REMV 2ND CATARACT,CORN-SCLER SECTN Cataract removal BILATERAL - TOTAL ABDOM HYSTERECTOMY age 27 Hysterectomy, MARQUES cervical cancer FAMILY HISTORY Problem Relation Age of Onset - None Mother - None Father - Breast Cancer Maternal Aunt - Stroke Sister - Cancer Sister - COPD Sister SOCIAL HISTORY Social History Substance Use Topics - Smoking status: Former Smoker Packs/day: 0.75 Years: 30.00 Types: Cigarettes Quit date: 08/15/2000 - Smokeless tobacco: Never Used - Alcohol use Yes Comment: rarely REVIEW OF SYSTEMS Abdomen: No abdominal pain, nausea, vomiting, diarrhea, or constipation. No bloating, early satiety, indigestion, or increased flatulence. Bladder: Hx of stress and urge incontinence. Gets up 3-4 times a night to use restroom. Sometimes is unable to get to the bathroom in time. Taking oxybutinin to manage urge incontinence. Breast: No breast lumps, nipple d/c, overlying skin changes, redness or skin retraction Allergies and current medication updated:Yes EXAM: There were no vitals taken for this visit. GENERAL: pleasant, female in no apparent distress HEENT: Normocephalic, atraumatic NECK: Supple, full range of motion, no adenopathy and thyroid normal BREAST: deferred CHEST: Clear to auscultation Normal inspiratory effort Regular rate and rhythm No murmurs, clicks, rubs or gallops ABDOMEN: soft, non-tender and no masses PELVIC: external genitalia normal, normal Bartholin's glands, urethra, Donnybrook's glands, no vulvar lesions, physiologic discharge present, normal appearing perineal body and perianal region, cervix surgically absent BIMANUAL: no adnexal masses and non-tender. Hx of hysterectomy and removal of left ovary. RECTOVAGINAL: not performed NEURO: alert and oriented x3 EXTREMITIES: normal ASSESSMENT/PLAN: 1) Health maintenance: Pap/HPV up to date. Mammogram up to date Nutrition, exercise and routine health maintenance exams reviewed. Calcium/Vitamin D supplementation information provided. BMD: up to date 2) Follow up one year or sooner as needed Cara Cleveland APRN.CNP CNOV Observed: 04/27/2018 Status: COMPLETED Source: [place] 10:15 AM [facility] [place] REPOSITORY Office Visit ([facility]OO[facility]) MANISHA KEITH ([id number]) 1950 F Date Time Provider Department 04/27/18 10:15 AM [facility]A [place] ([place]) [facility] During your visit today, we recorded the following information about you: Blood pressure Weight Height 128/74 81.2 kg 1.575 m Cara Cleveland APRN.CNP 04/27/2018 11:25 AM Signed Manisha Keith is a 67 year old who presents for her annual gynecologic exam without complaints. 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 Obstetric History T2 L2 SAB0 TAB0 Ectopic0 Multiple0 Live Births0 PAST MEDICAL HISTORY Diagnosis Date - Allergic rhinitis, cause unspecified - Breast cancer (HCC) age 34-had lump, cancerous cells. no issues since - Diverticulosis of colon (without mention of hemorrhage) - Heme positive stool 2010 - History of cervical cancer regular Paps for life - Hyperlipidemia 2010 - Inflammatory polyarthritis (HCC) Dr. 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) - Type II or unspecified type diabetes mellitus without mention of complication, not stated as uncontrolled - Unspecified essential hypertension PAST SURGICAL HISTORY Procedure Laterality Date - APPENDECTOMY - COLONOSCOP W/ OR W/O BRSH SPEC 06/26/09 - EGD 2010 - ERCP W/O BRUSH/WASH SPECIMEN 07/23/2008 Cholangiopancreatography (ERCP) - MASTECTOMY age 34 Mastectomy - simple - REMV 2ND CATARACT,CORN-SCLER SECTN Cataract removal BILATERAL - TOTAL ABDOM HYSTERECTOMY age 27 Hysterectomy, MARQUES cervical cancer FAMILY HISTORY Problem Relation Age of Onset - None Mother - None Father - Breast Cancer Maternal Aunt - Stroke Sister - Cancer Sister - COPD Sister SOCIAL HISTORY Social History Substance Use Topics - Smoking status: Former Smoker Packs/day: 0.75 Years: 30.00 Types: Cigarettes Quit date: 08/15/2000 - Smokeless tobacco: Never Used - Alcohol use Yes Comment: rarely REVIEW OF SYSTEMS Abdomen: No abdominal pain, nausea, vomiting, diarrhea, or constipation. No bloating, early satiety, indigestion, or increased flatulence. Bladder: Hx of stress and urge incontinence. Gets up 3-4 times a night to use restroom. Sometimes is unable to get to the bathroom in time. Taking oxybutinin to manage urge incontinence. Breast: No breast lumps, nipple d/c, overlying skin changes, redness or skin retraction Allergies and current medication updated:Yes EXAM: There were no vitals taken for this visit. GENERAL: pleasant, female in no apparent distress HEENT: Normocephalic, atraumatic NECK: Supple, full range of motion, no adenopathy and thyroid normal BREAST: deferred CHEST: Clear to auscultation Normal inspiratory effort Regular rate and rhythm No murmurs, clicks, rubs or gallops ABDOMEN: soft, non-tender and no masses PELVIC: external genitalia normal, normal Bartholin's glands, urethra, Donnybrook's glands, no vulvar lesions, physiologic discharge present, normal appearing perineal body and perianal region, cervix surgically absent BIMANUAL: no adnexal masses and non-tender. Hx of hysterectomy and removal of left ovary. RECTOVAGINAL: not performed NEURO: alert and oriented x3 EXTREMITIES: normal ASSESSMENT/PLAN: 1) Health maintenance: Pap/HPV up to date. Mammogram up to date Nutrition, exercise and routine health maintenance exams reviewed. Calcium/Vitamin D supplementation information provided. BMD: up to date 2) Follow up one year or sooner as needed Cara Cleveland APRN.DENTAL DETAIL REPRESENTATIVE Referring Provider: BRAYAN ARITA [[id number]] Allergies As of Date: 04/27/2018 Noted Allergy Reaction JESENIA INHIBITORS 03/27/2014 3 - Cough NSAIDS (NON-STEROIDAL ANTI-INFLAM*05/09/2009 8 - GI Upset TAPE (ADHESIVE TAPE (ROSINS)) 10/26/2016 14 - Other: See Comments Comments: Blisters from surgical tape Date Reviewed: 04/27/2018 Reviewed by: Cara (Caitie) Megha - Fully Assessed Reason for Visit: Yearly Exam [187] Primary Visit Diagnosis:Encounter for gynecological examination (general) (routine) without abnormal findings [Z01.419] Other Visit Diagnoses:History of cervical cancer [Z85.41] S/P MARQUES (total abdominal hysterectomy) [Z90.710] Encounter for screening mammogram for malignant neoplasm of breast [Z12.31] Order(s):[facility] [place] [facility] SCREENING [[id number]] Order #: [id number] FUTURE Prescriptions as of 04/27/2018 Sig: METFORMIN 1,000 MG TABLET TAKE ONE TABLET BY MOUTH ONCE* INSULIN LISPRO (U-100) 100 UN* 2 units three times a day and* GABAPENTIN 300 MG CAPSULE Take 1 capsule by mouth once * CEFUROXIME AXETIL 250 MG TABL* Take 1 tablet by mouth twice * METFORMIN 1,000 MG TABLET Take 1 tablet by mouth daily * BLOOD SUGAR DIAGNOSTIC STRIPS Test blood sugar(s) 3 times d* BLOOD-GLUCOSE METER KIT Glucose Meter of Choice - Kit* BLOOD SUGAR DIAGNOSTIC STRIPS 1 Strip three times daily bef* INSULIN GLARGINE (U-100) 100 * Inject 38 Units subcutaneousl* ALENDRONATE 70 MG TABLET Take 1 tablet by mouth once e* LOSARTAN 100 MG TABLET Take 1 tablet by mouth once d* OXYBUTYNIN CHLORIDE 5 MG TABL* Take 1 tablet by mouth once d* ESOMEPRAZOLE MAGNESIUM 40 MG * Take 1 capsule by mouth twice* FLUTICASONE 50 MCG/ACTUATION * Use 1 Blanch in each nostril d* HYDROCHLOROTHIAZIDE 12.5 MG C* TAKE ONE CAPSULE BY MOUTH ONC* COMPOUNDED PRESCRIPTION Insulin needles-1/2 cc for 10* FLUOROMETHOLONE 0.1 % EYE MARINE* Use 2 Drops in the left eye t* TRAMADOL 50 MG TABLET Take 50 mg by mouth every 8 h* MUPIROCIN 2 % TOPICAL OINTMENT Apply 1 application to affect* ASPIRIN 81 MG TABLET,DELAYED * Take 81 mg by mouth once burt* TRIAMCINOLONE ACETONIDE 0.1 %* Apply 1 application to affect* METHOTREXATE SODIUM 2.5 MG TA* Take 20 mg by mouth every Sun* PEN NEEDLE, DIABETIC 31 GAUGE* Use one needle per dose. 4 pe* FOLIC ACID 1 MG TABLET Take 2 tablets by mouth once * * CALCIUM 600 ORAL Take by mouth once daily. * CENTRUM SILVER ORAL Take by mouth once daily. * BLOOD-GLUCOSE METER KIT 1 Each as needed. Problem List As Of Date 04/27/2018 Noted Resolved BENIGN HYPERTENSION [I10] INVALID FOR*09/01/2007 Hyperlipidemia [E78.5] INVALID FOR* LOC PRIM OSTEOART-PELVIS [M16.10] INVALID FOR*06/04/2006 Allergic rhinitis [J30.9] INVALID FOR* Diabetes (HCC) [E11.9] INVALID FOR*06/27/2015 Unspecified sleep apnea [G47.30] INVALID FOR*12/07/2013 More... Osteoarthritis [M19.90] INVALID FOR* Irritable bowel syndrome [K58.9] INVALID FOR*11/25/2016 Dysuria [R30.0] INVALID FOR*05/25/2016 Unspecified sinusitis (chronic) [J32.9] INVALID FOR*05/25/2016 Other specified disorder of bladder [596.8] INVALID FOR*11/25/2016 ASYMPTOMATIC VARICOSE VEINS [I83.90] INVALID FOR* REFLUX ESOPHAGITIS [K21.0] ESOPHAGITIS, UNSPECIFIED [K20.9] INVALID FOR*07/30/2008 Malignant neoplasm of female breast (HCC) [C50.*INVALID FOR*05/25/2016 IBS (Irritable Bowel Syndrome) [K58.9] Heme positive stool [R19.5] 11/22/2013 Routine general medical examination at a [facility]*INVALID FOR*11/22/2013 HTN (hypertension) [I10] INVALID FOR* Urge incontinence [N39.41] INVALID FOR* Inflammatory polyarthritis (HCC) [M06.4] More... Type 2 diabetes mellitus with diabetic retinopa*INVALID FOR* History of cervical cancer [Z85.41] More... History of breast cancer [Z85.3] INVALID FOR* H/O left mastectomy [Z90.12] INVALID FOR* Obesity, Class I, BMI 30-34.9 [E66.9] INVALID FOR* Disposition: Return in 1 year (on 04/27/2019) for Annual Exam. Follow-up and Disposition History Recorded Encounter Status:Closed by CARA CLEVELAND on 04/27/18 URINALYSIS WITH Collected: 04/20/2018 Status: F Source: [place] MICROSCOPIC 3:55 PM [facility] REPOSITORY TYPE CODE TESTS RESULT OUT OF REFERENCE UNITS RANGE LAB UCOL Yellow Color Yellow LAB [facility] Clear Clarity Clear LAB UGLUC Negative mg/dL Glucose, Urine Negative LAB UBIL Negative Bilirubin, Urine Negative LAB UKET Negative Ketones, Urine Negative LAB USPG 1.005-1.030 Specific [place], Ur 1.005 LAB UHGB Negative Hemoglobin/Blood, Negative Ur LAB UPH 4.5-8.0 pH 7.0 LAB UPROT Negative mg/dL Protein, Urine Negative LAB UUROB Normal Urobilinogen Normal LAB UNITR Negative Nitrites Negative LAB ULKEST Negative Leukest Negative LAB UCOM Comments SEE COMMENT Result Comment: N/A LAB UMCOM Urine SEE Blu Comment COMMENT Result Comment: N/A LAB UWBC 0-5 /HPF WBC 0-5 LAB URBC 0-3 /HPF RBC 0-3 LAB UEPI /HPF Epithelial SEE Cells COMMENT Result Comment: Few Squamous Epithelial Cells Few Non-Squamous Epithelial Cells Performed By: #### UAWMIC #### [facility] [employer] [address] [place], [place] [address] Observed: 04/20/2018 Status: F Source: [place] URINE CULTURE 3:55 PM [facility] REPOSITORY Sp. Request/Comment: - Best Practice Alert: To ensure optimal transport conditions and accurate culture results transfer urine specimens to gold top C and S preservative tube. Culture Result - <10,000 CFU/ml Normal urogenital john Performed By: #### URCUL #### [facility] [employer] [address] [place] [address] CBC AND DIFFERENTIAL Collected: 04/20/2018 Status: F Source: [place] 3:47 PM [facility] REPOSITORY TYPE CODE TESTS RESULT OUT OF REFERENCE UNITS RANGE LAB WBC 3.70-11.00 k/uL WBC 6.26 LAB RBC 3.90-5.20 m/uL Low RBC 3.60 LAB HGB 11.5-15.5 g/dL Low Hemoglobin 11.0 LAB HCT 36.0-46.0 % Low Hematocrit 34.8 LAB MCV 80.0-100.0 fL MCV 96.7 LAB MCH 26.0-34.0 pG MCH 30.6 LAB MCHC 30.5-36.0 g/dL MCHC 31.6 LAB RDWCV 11.5-15.0 % RDW-CV 13.7 LAB PLTCT 150-400 k/uL Platelet Count 258 LAB MPV 9.0-12.7 fL MPV 9.7 LAB ANEUT % Neut% 63.8 LAB AANEUT 1.45-7.50 k/uL Abs Neut 3.98 LAB ALYMP % Lymph% 27.0 LAB AALYMP 1.00-4.00 k/uL Abs Lymph 1.69 LAB AMONO % Larue% 6.1 LAB AAMONO <0.87 k/uL Abs Larue 0.38 LAB AEOS % Eosin% 2.6 LAB AAEOS <0.46 k/uL Abs Eosin 0.16 LAB ABASO % Baso% 0.5 LAB AABASO <0.11 k/uL Abs Baso 0.03 LAB AUNRBC 0 /100 WBC NRBCs 0.0 LAB ABNRBC <0.01 k/uL Absolute nRBC <0.01 LAB DTYP DTYPE Auto Diff Performed By: #### CBCDIF, WSR, BMP, CK, MG1 #### [facility] [employer] [address] [place], [place] [address] SED RATE WESTERGREN Collected: 04/20/2018 Status: F Source: [place] 3:47 PM [facility] REPOSITORY TYPE CODE TESTS RESULT OUT OF REFERENCE UNITS RANGE LAB WSR 0-20 mm/hr Sed Rate High Westergren 31 Performed By: #### CBCDIF, WSR, BMP, CK, MG1 #### [facility] [employer] [address] [place], [place] [address] BASIC METABOLIC PANL Collected: 04/20/2018 Status: F Source: [place] 3:47 PM [facility] REPOSITORY TYPE CODE TESTS RESULT OUT OF REFERENCE UNITS RANGE LAB GLU 74-99 mg/dL High Glucose 106 Result Comment: The [place] Diabetes Association (ADA) provides guidance for cutoff values for fasting glucose and random glucose. The ADA defines fasting as no caloric intake for at least 8 hours. Fas ting plasma glucose results between 100 to 125 mg/dL indicate increased risk for diabetes (prediabetes). Fasting plasma glucose results greater than or equal to 126 mg/dL meet the criteria for diagnosis of diabetes. In the absence of unequivocal hyperglycemia, results should be confirmed by repeat testing. In a patient with classic symptoms of hyperglycemia or hyperglycemic crisis, random plasma glucose results greater than or equal to 200 mg/dL meet the criteria for diagnosis of diabetes. Reference: Standards of Medical Care in Diabetes 2016, [place] [employer] Association. Diabetes Care. 2016.39(Suppl 1). LAB BUN 7-21 mg/dL BUN 12 LAB CRET 0.58-0.96 mg/dL Creatinine 0.84 LAB NA 136-144 mmol/L Sodium 140 LAB K 3.7-5.1 mmol/L Potassium 4.3 LAB CL 97-105 mmol/L Chloride 99 LAB CO2 22-30 mmol/L CO2 27 LAB AGAP 9-18 mmol/L Anion Gap 14 LAB CA 8.5-10.2 mg/dL Calcium, Total 9.5 LAB GFRAA eGFR- Amer. >60 LAB GFRNAA . eGFR-All Other Races >60 Result Comment: eGFR (Estimated GFR) Units of measure: mL/min/1.73 meters squared eGFR is derived from the reexpressed MDRD Study equation using the following parameters: serum creatinine, age, gender and race. The creatinine assay has been calibrated to be traceable to IDMS. An eGFR <60 mL/min/1.73m2 for >3 months is consistent with chronic kidney disease. Refer to KDOQI guidelines for clinical interpretation. In patients with unstable renal function, e.g. those with acute kidney injury, the eGFR may not accurately reflect actual GFR. Performed By: #### CBCDIF, WSR, BMP, CK, MG1 #### [facility] [address] [place], [place] [address] CK Collected: 04/20/2018 Status: F Source: [facility] 3:47 PM [facility] REPOSITORY TYPE CODE TESTS RESULT OUT OF RANGE REFERENCE UNITS LAB CK 42-196 U/L CK 95 Result Comment: Please note the updated, gender-specific reference range for this test (effective 07/29/2016). Performed By: #### CBCDIF, WSR, BMP, CK, MG1 #### [facility] [address], [place] [address] MAGNESIUM Collected: 04/20/2018 Status: F Source: [place] 3:47 PM [facility] [place] REPOSITORY TYPE CODE TESTS RESULT OUT OF REFERENCE UNITS RANGE LAB MG 1.7-2.3 mg/dL Magnesium 1.8 Performed By: #### CBCDIF, WSR, BMP, CK, MG1 #### [facility] [address] [place], [place] [address] PROGRESS Observed: 04/20/2018 Status: COMPLETED Source: [place] 2:58 PM [facility] REPOSITORY HNO ID: [id number] Author: Brayan Arita Service: (none) Author Type: Physician Type: Progress Notes Filed: 04/20/2018 6:15 PM Note Text: Patient presents with: Diabetes: needs metformin refilled today-reports glucose has been up Leg Cramps: also gets under ribs and in right shoulder for about 1 month Cough: at times productive with tightness in chest for about 1 week ? chest cold HPI: Patient presents today for office visit for follow up. Patient presents today complaining of increased cough. Duration: chronic but worse over the last week. Has some cough at bedtime. Is on nexium Cough is productive:YES. Fever: :No. Shortness of breath:No. Sore throat :No. Ear Pain :No. Chest Pain :No. Feels tight or wheezy Previous treatments tried: using otc cold med. Having muscle cramping all over the last week. Does not drink fluids well. Is taking a lower amount of gabapentin. HYPERTENSION: DM:sugars are actually worse. Have been running high. Not watching her diet. Has not missed any med dose. Discussed adding scheduled humalog. Component Latest Ref Rng AND Units 04/19/2018 Hemoglobin A1C 4.3 - 5.6 % 8.9 (H) Estimated Average Glucose mg/dL 209 Having increased urinary incontinence this last week. No dysuria or frequency. No flank pain. HLD will hold statin with muscle aches. Compliant with mesd. GERD:reflux is better. RHEUM:still seeing Dr. Johnson. Stable. 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 Up to date on mammogram. MEDICATIONS: Current Outpatient Prescriptions: insulin glargine (LANTUS SOLOSTAR U-100 INSULIN) 100 unit/mL (3 mL) inpn Inject 38 Units subcutaneously twice daily. alendronate (FOSAMAX) 70 mg tablet Take 1 tablet by mouth once each week. Take with a full glass of water, on an empty stomach; do NOT lie down for 30minutes. losartan (COZAAR) 100 mg tablet Take 1 tablet by mouth once daily. oxybutynin (DITROPAN) 5 mg tablet Take 1 tablet by mouth once daily. esomeprazole (NEXIUM) 40 mg capsule Take 1 capsule by mouth twice daily before meals. 1/2 hr before meal. fluticasone (FLONASE) 50 mcg/actuation nasal spray Use 1 Blanch in each nostril daily at bedtime. Use as directed. Hydrochlorothiazide 12.5 mg capsule TAKE ONE CAPSULE BY MOUTH ONCE DAILY atorvastatin (LIPITOR) 20 mg tablet Take 1 tablet by mouth daily at bedtime. For cholesterol. insulin lispro (HUMALOG) 100 unit/mL injection Sliding scale:151- 200 give 2 [id number] give 4 [id number] give 6 [id number] give 8 unitsAbove 350, notify PCP aspirin, enteric coated (ASPIRIN, ENTERIC COATED) 81 mg EC tablet Take 81 mg by mouth once daily. methotrexate 2.5 mg tablet Take 20 mg by mouth every Tuesday. folic acid 1 mg tablet Take 2 tablets by mouth once daily. Dr. Johnson CALCIUM CARBONATE (CALCIUM 600 ORAL) Take by mouth once daily. MULTIVITAMIN W-MINERALS/LUTEIN (CENTRUM SILVER ORAL) Take by mouth once daily. metFORMIN (GLUCOPHAGE) 1,000 mg tablet TAKE ONE TABLET BY MOUTH ONCE DAILY WITH BREAKFAST blood sugar diagnostic (BLOOD GLUCOSE TEST) test strip Test blood sugar(s) 3 times daily. Dx: Type 2 DM - Controlled E11.9 Insulin: YES Blood-Glucose Meter monitoring kit Glucose Meter of Choice - Kit - Dx: Type 2 DM - Controlled E11.9 blood sugar diagnostic (ONETOUCH ULTRA TEST) test strip 1 Strip three times daily before meals. Dx: E11.319 Insulin: Yes COMPOUNDED PRESCRIPTION Insulin needles-1/2 cc for 100 uUse up to 4 a day fluorometholone (FML LIQUID FILM) 0.1 % ophthalmic suspension Use 2 Drops in the left eye twice daily. traMADol (ULTRAM) 50 mg tablet Take 50 mg by mouth every 8 hours as needed for Pain. gabapentin (NEURONTIN) 300 mg capsule Take 1 capsule by mouth three times daily. (Patient taking differently: Take 300 mg by mouth once daily. ) pantoprazole DR (PROTONIX) 40 mg tablet Take 1 tablet by mouth once daily. (Patient not taking: Reported on 01/10/2018 ) mupirocin (BACTROBAN) 2 % ointment Apply 1 application to affected area three times daily. [facility] triamcinolone acetonide (KENALOG) 0.1 % cream Apply 1 application to affected area twice daily. insulin needles, DISPOSABLE, (PEN NEEDLE) 31 gauge x 5/16 ndle Use one needle per dose. 4 per day. Blood-Glucose Meter (ONE TOUCH ULTRA SYSTEM KIT) Misc monitoring kit 1 Each as needed. No current facility-administered medications for this visit. ALLERGIES: ALLERGIES Allergen Reactions - Jesenia Inhibitors Cough - Nsaids (Non-Steroid* GI Upset - Tape [Adhesive Tape* Other: See Comments Blisters from surgical tape PAST MEDICAL HISTORY Diagnosis Date - Allergic rhinitis, cause unspecified - Breast cancer (HCC) age 34-had lump, cancerous cells. no issues since - Diverticulosis of colon (without mention of hemorrhage) - Heme positive stool 2010 - History of cervical cancer regular Paps for life - Hyperlipidemia 2010 - Inflammatory polyarthritis (HCC) Dr. 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) - Type II or unspecified type diabetes mellitus without mention of complication, not stated as uncontrolled - Unspecified essential hypertension PAST SURGICAL HISTORY Procedure Laterality Date - APPENDECTOMY - COLONOSCOP W/ OR W/O BRSH SPEC 06/26/09 - EGD 2010 - ERCP W/O BRUSH/WASH SPECIMEN 07/23/2008 Cholangiopancreatography (ERCP) - MASTECTOMY age 34 Mastectomy - simple - REMV 2ND CATARACT,CORN-SCLER SECTN Cataract removal BILATERAL - TOTAL ABDOM HYSTERECTOMY age 27 Hysterectomy, MARQUES cervical cancer FAMILY HISTORY Problem Relation Age of Onset - None Mother - None Father - Breast Cancer Maternal Aunt Social History Marital status: Spouse name: Years of education: Number of children: 2 Occupational History Occupation Employer Comment [employer] Social History Main Topics Smoking status: Former Smoker Packs/day: 0.75 Years: 30.00 Types: Cigarettes Quit date: 08/15/2000 Smokeless tobacco: Never Used Alcohol use: Yes Comment: rarely Drug use: No Sexual activity: No Reviewed current medications, allergies, past medical history, surgical history, family history and social history today. REVIEW OF SYSTEMS GI: No nausea, vomiting, or diarrhea SKIN: Negative for lesions, rash, and itching All other reviewed and negative other than HPI. HEALTH MAINTENANCE: Reviewed health maintenance issues today and recommended the following in detail. PNEUMOVAX AGE 65 AND OVER WITH 5YR LOOKBACK(1) due on 2017 DILATED RETINAL EXAM is upcoming. INFLUENZA-gets at work VITALS: BP 142/82 Pulse 76 Temp 36.1 ?C (97 ?F) (Tympanic) Resp 14 Wt 81.6 kg (180 lb) BMI 32.40 kg/m? Last 4 Encounter Wt Readings: Date: Wt: 04/20/2018 81.6 kg (180 lb) 01/10/2018 76.4 kg (168 lb 6.4 oz) 11/10/2017 74.4 kg (164 lb) 10/11/2017 73.9 kg (163 lb) PHYSICAL EXAMINATION: General appearance: Well appearing, alert, in no acute distress, well-hydrated, well nourished. Skin: Skin color, texture, turgor normal, no suspicious rashes or lesions Head: Normocephalic, no masses, lesions, tenderness or abnormalities Eyes: Anicteric sclera. Pupils are equally round and reactive to light. Extraocular movements are intact. Ears: External ears normal, canals clear Nose/Sinuses: Nares normal, septum midline, mucosa normal, no drainage or sinus tenderness Oropharynx: Lips, mucosa, and tongue normal, teeth and gums normal, oropharynx normal Neck: Supple, no adenopathy; thyroid symmetric, normal size, no bruits Lungs: Lungs clear to auscultation. No wheezing, rhonchi, rales Heart: RRR without murmur, gallop, or rubs. No ectopy Abdomen: Normal abdominal exam, Abdomen soft, non-tender. Bowel sounds normal. No masses, organomegaly Extremities: No deformities, edema, skin discoloration, clubbing or cyanosis. Good capillary refill. Musculoskeletal: No joint swelling, deformity, or tenderness Peripheral pulses: Normal ASSESSMENT/PLAN: 1. Type 2 diabetes mellitus with peripheral neuropathy (HCC) - ICD9: 250.60, 357.2, ICD10: E11.42 (primary diagnosis) worsening control - Increase short acting insulin by adding scheduled insulin. Watch diet. Call sugars in one week. See pharmacy. - INSULIN LISPRO (U-100) 100 UNIT/ML SUBCUTANEOUS SOLUTION - CONSULT TO AMBULATORY CLINIC PHARMACY 2. Obesity, Class I, BMI 30-34.9 - ICD9: 278.00, ICD10: E66.9 - watch diet. 3. Polyarthritis - ICD9: 716.50, ICD10: M13.0 - continue meds. Check labs. - GABAPENTIN 300 MG CAPSULE - CK CREATINE KINASE - SED RATE WESTERGREN 4. Pain of lower extremity, unspecified laterality - ICD9: 729.5, ICD10: M79.606 - as above. Hold cholesterol meds and call in a week with update. - CBC + DIFF - BASIC METABOLIC PNL - MAGNESIUM BLD 5. Essential hypertension - ICD9: 401.9, ICD10: I10 - suboptimal control - Continue current medication(s) - Goal of BP <130/80 6. Mixed hyperlipidemia - ICD9: 272.2, ICD10: E78.2 - as above. 7. Inflammatory polyarthritis (HCC) - ICD9: 714.9, ICD10: M06.4 -see Dr Erickson 8. 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, with long-term current use of insulin, macular edema presence unspecified, unspecified laterality, unspecified proliferative retinopathy* (HCC) - ICD9: 250.50, 362.02, V58.67, ICD10: E11.3599, Z79.4 - follow with optho 9. History of cervical cancer - ICD9: V10.41, ICD10: Z85.41 - continue follow up. - CONSULT TO GYNECOLOGY 10. History of breast cancer - ICD9: V10.3, ICD10: Z85.3 - continue regular mammogram. 11. Urinary incontinence, unspecified type - ICD9: 788.30, ICD10: R32 - check urine. - URINALYSIS WITH MICROSCOPIC - URINE CULTURE 12. Bronchitis - ICD9: 490, ICD10: J40 - Discussed risks and benefits of new medication with the patient. Advised them to call if any side effects or questions. - Call if symptoms worsen at all or if not better in one to two weeks - CEFUROXIME AXETIL 250 MG TABLET Brayan Arita MD CNOV Observed: 04/20/2018 Status: COMPLETED Source: [place] 2:40 PM [facility] REPOSITORY [facility] MANISHA KEITH ([id number]) 1950 F Date Time Provider Department 04/20/18 2:40 PM BRAYAN ARITAWS During your visit today, we recorded the following information about you: Temperature Pulse Respiration Blood pressure 97 degrees 76/minute 14/minute 142/82 Weight 81.6 kg Brayan Arita MD 04/20/2018 6:15 PM Signed Patient presents with: Diabetes: needs metformin refilled today-reports glucose has been up Leg Cramps: also gets under ribs and in right shoulder for about 1 month Cough: at times productive with tightness in chest for about 1 week ? chest cold HPI: Patient presents today for office visit for follow up. Patient presents today complaining of increased cough. Duration: chronic but worse over the last week. Has some cough at bedtime. Is on nexium Cough is productive:YES. Fever: :No. Shortness of breath:No. Sore throat :No. Ear Pain :No. Chest Pain :No. Feels tight or wheezy Previous treatments tried: using otc cold med. Having muscle cramping all over the last week. Does not drink fluids well. Is taking a lower amount of gabapentin. HYPERTENSION: DM:sugars are actually worse. Have been running high. Not watching her diet. Has not missed any med dose. Discussed adding scheduled humalog. Component Latest Ref Rng AND Units 04/19/2018 Hemoglobin A1C 4.3 - 5.6 % 8.9 (H) Estimated Average Glucose mg/dL 209 Having increased urinary incontinence this last week. No dysuria or frequency. No flank pain. HLD will hold statin with muscle aches. Compliant with mesd. GERD:reflux is better. RHEUM:still seeing Dr. Johnson. Stable. 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 Up to date on mammogram. MEDICATIONS: Current Outpatient Prescriptions: insulin glargine (LANTUS SOLOSTAR U-100 INSULIN) 100 unit/mL (3 mL) inpn Inject 38 Units subcutaneously twice daily. alendronate (FOSAMAX) 70 mg tablet Take 1 tablet by mouth once each week. Take with a full glass of water, on an empty stomach; do NOT lie down for 30minutes. losartan (COZAAR) 100 mg tablet Take 1 tablet by mouth once daily. oxybutynin (DITROPAN) 5 mg tablet Take 1 tablet by mouth once daily. esomeprazole (NEXIUM) 40 mg capsule Take 1 capsule by mouth twice daily before meals. 1/2 hr before meal. fluticasone (FLONASE) 50 mcg/actuation nasal spray Use 1 Blanch in each nostril daily at bedtime. Use as directed. Hydrochlorothiazide 12.5 mg capsule TAKE ONE CAPSULE BY MOUTH ONCE DAILY atorvastatin (LIPITOR) 20 mg tablet Take 1 tablet by mouth daily at bedtime. For cholesterol. insulin lispro (HUMALOG) 100 unit/mL injection Sliding scale:151- 200 give 2 [id number] give 4 -668 give 6 -193 give 8 unitsAbove 350, notify PCP aspirin, enteric coated (ASPIRIN, ENTERIC COATED) 81 mg EC tablet Take 81 mg by mouth once daily. methotrexate 2.5 mg tablet Take 20 mg by mouth every Tuesday. folic acid 1 mg tablet Take 2 tablets by mouth once daily. Dr. Johnson CALCIUM CARBONATE (CALCIUM 600 ORAL) Take by mouth once daily. MULTIVITAMIN W-MINERALS/LUTEIN (CENTRUM SILVER ORAL) Take by mouth once daily. metFORMIN (GLUCOPHAGE) 1,000 mg tablet TAKE ONE TABLET BY MOUTH ONCE DAILY WITH BREAKFAST blood sugar diagnostic (BLOOD GLUCOSE TEST) test strip Test blood sugar(s) 3 times daily. Dx: Type 2 DM - Controlled E11.9 Insulin: YES Blood-Glucose Meter monitoring kit Glucose Meter of Choice - Kit - Dx: Type 2 DM - Controlled E11.9 blood sugar diagnostic (ONETOUCH ULTRA TEST) test strip 1 Strip three times daily before meals. Dx: E11.319 Insulin: Yes COMPOUNDED PRESCRIPTION Insulin needles-1/2 cc for 100 uUse up to 4 a day fluorometholone (FML LIQUID FILM) 0.1 % ophthalmic suspension Use 2 Drops in the left eye twice daily. traMADol (ULTRAM) 50 mg tablet Take 50 mg by mouth every 8 hours as needed for Pain. gabapentin (NEURONTIN) 300 mg capsule Take 1 capsule by mouth three times daily. (Patient taking differently: Take 300 mg by mouth once daily. ) pantoprazole DR (PROTONIX) 40 mg tablet Take 1 tablet by mouth once daily. (Patient not taking: Reported on 01/10/2018 ) mupirocin (BACTROBAN) 2 % ointment Apply 1 application to affected area three times daily. Location: [facility] triamcinolone acetonide (KENALOG) 0.1 % cream Apply 1 application to affected area twice daily. insulin needles, DISPOSABLE, (PEN NEEDLE) 31 gauge x 5/16 ndle Use one needle per dose. 4 per day. Blood-Glucose Meter (ONE TOUCH ULTRA SYSTEM KIT) Misc monitoring kit 1 Each as needed. No current facility-administered medications for this visit. ALLERGIES: ALLERGIES Allergen Reactions - Jesenia Inhibitors Cough - Nsaids (Non-Steroid* GI Upset - Tape [Adhesive Tape* Other: See Comments Blisters from surgical tape PAST MEDICAL HISTORY Diagnosis Date - Allergic rhinitis, cause unspecified - Breast cancer (HCC) age 34-had lump, cancerous cells. no issues since - Diverticulosis of colon (without mention of hemorrhage) - Heme positive stool 2010 - History of cervical cancer regular Paps for life - Hyperlipidemia 2010 - Inflammatory polyarthritis (HCC) Dr. 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) - Type II or unspecified type diabetes mellitus without mention of complication, not stated as uncontrolled - Unspecified essential hypertension PAST SURGICAL HISTORY Procedure Laterality Date - APPENDECTOMY - COLONOSCOP W/ OR W/O BRSH SPEC 06/26/09 - EGD 2010 - ERCP W/O BRUSH/WASH SPECIMEN 07/23/2008 Cholangiopancreatography (ERCP) - MASTECTOMY age 34 Mastectomy - simple - REMV 2ND CATARACT,CORN-SCLER SECTN Cataract removal BILATERAL - TOTAL ABDOM HYSTERECTOMY age 27 Hysterectomy, MARQUES cervical cancer FAMILY HISTORY Problem Relation Age of Onset - None Mother - None Father - Breast Cancer Maternal Aunt Social History Marital status: Spouse name: Years of education: Number of children: 2 Occupational History Occupation Employer Comment [employer] Social History Main Topics Smoking status: Former Smoker Packs/day: 0.75 Years: 30.00 Types: Cigarettes Quit date: 08/15/2000 Smokeless tobacco: Never Used Alcohol use: Yes Comment: rarely Drug use: No Sexual activity: No Reviewed current medications, allergies, past medical history, surgical history, family history and social history today. REVIEW OF SYSTEMS GI: No nausea, vomiting, or diarrhea SKIN: Negative for lesions, rash, and itching All other reviewed and negative other than HPI. HEALTH MAINTENANCE: Reviewed health maintenance issues today and recommended the following in detail. PNEUMOVAX AGE 65 AND OVER WITH 5YR LOOKBACK(1) due on 2017 DILATED RETINAL EXAM is upcoming. INFLUENZA-gets at work VITALS: BP 142/82 Pulse 76 Temp 36.1 ?C (97 ?F) (Tympanic) Resp 14 Wt 81.6 kg (180 lb) BMI 32.40 kg/m? Last 4 Encounter Wt Readings: Date: Wt: 04/20/2018 81.6 kg (180 lb) 01/10/2018 76.4 kg (168 lb 6.4 oz) 11/10/2017 74.4 kg (164 lb) 10/11/2017 73.9 kg (163 lb) PHYSICAL EXAMINATION: General appearance: Well appearing, alert, in no acute distress, well-hydrated, well nourished. Skin: Skin color, texture, turgor normal, no suspicious rashes or lesions Head: Normocephalic, no masses, lesions, tenderness or abnormalities Eyes: Anicteric sclera. Pupils are equally round and reactive to light. Extraocular movements are intact. Ears: External ears normal, canals clear Nose/Sinuses: Nares normal, septum midline, mucosa normal, no drainage or sinus tenderness Oropharynx: Lips, mucosa, and tongue normal, teeth and gums normal, oropharynx normal Neck: Supple, no adenopathy; thyroid symmetric, normal size, no bruits Lungs: Lungs clear to auscultation. No wheezing, rhonchi, rales Heart: RRR without murmur, gallop, or rubs. No ectopy Abdomen: Normal abdominal exam, Abdomen soft, non-tender. Bowel sounds normal. No masses, organomegaly Extremities: No deformities, edema, skin discoloration, clubbing or cyanosis. Good capillary refill. Musculoskeletal: No joint swelling, deformity, or tenderness Peripheral pulses: Normal ASSESSMENT/PLAN: 1. Type 2 diabetes mellitus with peripheral neuropathy (HCC) - ICD9: 250.60, 357.2, ICD10: E11.42 (primary diagnosis) worsening control - Increase short acting insulin by adding scheduled insulin. Watch diet. Call sugars in one week. See pharmacy. - INSULIN LISPRO (U-100) 100 UNIT/ML SUBCUTANEOUS SOLUTION - CONSULT TO AMBULATORY CLINIC PHARMACY 2. Obesity, Class I, BMI 30-34.9 - ICD9: 278.00, ICD10: E66.9 - watch diet. 3. Polyarthritis - ICD9: 716.50, ICD10: M13.0 - continue meds. Check labs. - GABAPENTIN 300 MG CAPSULE - CK CREATINE KINASE - SED RATE WESTERGREN 4. Pain of lower extremity, unspecified laterality - ICD9: 729.5, ICD10: M79.606 - as above. Hold cholesterol meds and call in a week with update. - CBC + DIFF - BASIC METABOLIC PNL - MAGNESIUM BLD 5. Essential hypertension - ICD9: 401.9, ICD10: I10 - suboptimal control - Continue current medication(s) - Goal of BP <130/80 6. Mixed hyperlipidemia - ICD9: 272.2, ICD10: E78.2 - as above. 7. Inflammatory polyarthritis (HCC) - ICD9: 714.9, ICD10: M06.4 -see Dr Erickson 8. 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, with long-term current use of insulin, macular edema presence unspecified, unspecified laterality, unspecified proliferative retinopathy* (HCC) - ICD9: 250.50, 362.02, V58.67, ICD10: E11.3599, Z79.4 - follow with optho 9. History of cervical cancer - ICD9: V10.41, ICD10: Z85.41 - continue follow up. - CONSULT TO GYNECOLOGY 10. History of breast cancer - ICD9: V10.3, ICD10: Z85.3 - continue regular mammogram. 11. Urinary incontinence, unspecified type - ICD9: 788.30, ICD10: R32 - check urine. - URINALYSIS WITH MICROSCOPIC - URINE CULTURE 12. Bronchitis - ICD9: 490, ICD10: J40 - Discussed risks and benefits of new medication with the patient. Advised them to call if any side effects or questions. - Call if symptoms worsen at all or if not better in one to two weeks - CEFUROXIME AXETIL 250 MG TABLET MD Brayan Gonzales MD 04/20/2018 3:10 PM Addendum Call with a list of sugars in one week Stop atorvastatin and call with update in a week Referring Provider: BRAYAN ARITA [[id number]] Allergies As of Date: 04/20/2018 Noted Allergy Reaction JESENIA INHIBITORS 03/27/2014 3 - Cough NSAIDS (NON-STEROIDAL ANTI-INFLAM*05/09/2009 8 - GI Upset TAPE (ADHESIVE TAPE (ROSINS)) 10/26/2016 14 - Other: See Comments Comments: Blisters from surgical tape Date Reviewed: 04/20/2018 Reviewed by: Areli Salas LPN - Fully Assessed Reason for Visit: Diabetes [34] Cmt: needs metformin refilled today-reports glucose has been up Leg Cramps [1739] Cmt: also gets under ribs and in right shoulder for about 1 month Cough [28] Cmt: at times productive with tightness in chest for about 1 week ? chest cold Reason For Visit History Recorded Primary Visit Diagnosis:Type 2 diabetes mellitus with peripheral neuropathy (HCC) [E11.42] Other Visit Diagnoses:Obesity, Class I, BMI 30-34.9 [E66.9] Polyarthritis [M13.0] Pain of lower extremity, unspecified laterality [M79.606] Essential hypertension [I10] Mixed hyperlipidemia [E78.2] Inflammatory polyarthritis (HCC) [M06.4] 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, with long-term current use of insulin, macular edema presence unspecified, unspecified laterality, unspecified proliferative retinopathy* (HCC) [E11.3599, Z79.4] History of cervical cancer [Z85.41] History of breast cancer [Z85.3] Urinary incontinence, unspecified type [R32] Bronchitis [J40] Order(s):insulin lispro (HUMALOG U-100 INSULIN) 100 unit/mL injection2 units three times a day and Sliding scale: 151-200 give 2 units 201-250 give 4 units 251-300 give 6 units 301-350 give 8 units Above 350, notify PCPDisp: 1 VialRfl: 0 CONSULT TO AMBULATORY CLINIC PHARMACY [19991021] Order #: [id number]: 1 gabapentin (NEURONTIN) 300 mg capsuleTake 1 capsule by mouth once daily for 91 days.Disp: Rfl: CBC + DIFF [SQCBCDIF] Order #: [id number] FUTURE BASIC METABOLIC PNL [SQBMP] Order #: [id number] FUTURE MAGNESIUM BLD [SQMG1] Order #: [id number] FUTURE CK CREATINE KINASE [SQCK] Order #: [id number] FUTURE SED RATE WESTERGREN [SQWSR] Order #: [id number] FUTURE URINALYSIS WITH MICROSCOPIC [SQUAWMIC] Order #: [id number] FUTURE URINE CULTURE [SQURCUL] Order #: [id number] FUTURE CONSULT TO GYNECOLOGY [9012] Order #: [id number]: 1 cefUROXime (CEFTIN) 250 mg tabletTake 1 tablet by mouth twice daily for 10 days.Disp: 20 tabletRfl: 0 metFORMIN (GLUCOPHAGE) 1,000 mg tabletTake 1 tablet by mouth daily with breakfast.Disp: 30 tabletRfl: 5 Prescriptions as of 04/20/2018 Sig: INSULIN LISPRO (U-100) 100 UN* 2 units three times a day and* METFORMIN 1,000 MG TABLET Take 1 tablet by mouth daily * INSULIN GLARGINE (U-100) 100 * Inject 38 Units subcutaneousl* ALENDRONATE 70 MG TABLET Take 1 tablet by mouth once e* LOSARTAN 100 MG TABLET Take 1 tablet by mouth once d* OXYBUTYNIN CHLORIDE 5 MG TABL* Take 1 tablet by mouth once d* ESOMEPRAZOLE MAGNESIUM 40 MG * Take 1 capsule by mouth twice* FLUTICASONE 50 MCG/ACTUATION * Use 1 Blanch in each nostril d* HYDROCHLOROTHIAZIDE 12.5 MG C* TAKE ONE CAPSULE BY MOUTH ONC* X METFORMIN 1,000 MG TABLET Take 1 tablet by mouth daily * ASPIRIN 81 MG TABLET,DELAYED * Take 81 mg by mouth once burt* METHOTREXATE SODIUM 2.5 MG TA* Take 20 mg by mouth every Sun* FOLIC ACID 1 MG TABLET Take 2 tablets by mouth once * * CALCIUM 600 ORAL Take by mouth once daily. * CENTRUM SILVER ORAL Take by mouth once daily. GABAPENTIN 300 MG CAPSULE Take 1 capsule by mouth once * CEFUROXIME AXETIL 250 MG TABL* Take 1 tablet by mouth twice * BLOOD SUGAR DIAGNOSTIC STRIPS Test blood sugar(s) 3 times d* BLOOD-GLUCOSE METER KIT Glucose Meter of Choice - Kit* BLOOD SUGAR DIAGNOSTIC STRIPS 1 Strip three times daily bef* COMPOUNDED PRESCRIPTION Insulin needles-1/2 cc for 10* FLUOROMETHOLONE 0.1 % EYE MARINE* Use 2 Drops in the left eye t* TRAMADOL 50 MG TABLET Take 50 mg by mouth every 8 h* MUPIROCIN 2 % TOPICAL OINTMENT Apply 1 application to affect* TRIAMCINOLONE ACETONIDE 0.1 %* Apply 1 application to affect* PEN NEEDLE, DIABETIC 31 GAUGE* Use one needle per dose. 4 pe* * BLOOD-GLUCOSE METER KIT 1 Each as needed. Problem List As Of Date 04/20/2018 Noted Resolved BENIGN HYPERTENSION [I10] INVALID FOR*09/01/2007 Hyperlipidemia [E78.5] INVALID FOR* LOC PRIM OSTEOART-PELVIS [M16.10] INVALID FOR*06/04/2006 Allergic rhinitis [J30.9] INVALID FOR* Diabetes (HCC) [E11.9] INVALID FOR*06/27/2015 Unspecified sleep apnea [G47.30] INVALID FOR*12/07/2013 More... Osteoarthritis [M19.90] INVALID FOR* Irritable bowel syndrome [K58.9] INVALID FOR*11/25/2016 Dysuria [R30.0] INVALID FOR*05/25/2016 Unspecified sinusitis (chronic) [J32.9] INVALID FOR*05/25/2016 Other specified disorder of bladder [596.8] INVALID FOR*11/25/2016 ASYMPTOMATIC VARICOSE VEINS [I83.90] INVALID FOR* REFLUX ESOPHAGITIS [K21.0] ESOPHAGITIS, UNSPECIFIED [K20.9] INVALID FOR*07/30/2008 Malignant neoplasm of female breast (HCC) [C50.*INVALID FOR*05/25/2016 IBS (Irritable Bowel Syndrome) [K58.9] Heme positive stool [R19.5] 11/22/2013 Routine general medical examination at a [facility]*INVALID FOR*11/22/2013 HTN (hypertension) [I10] INVALID FOR* Urge incontinence [N39.41] INVALID FOR* Inflammatory polyarthritis (HCC) [M06.4] More... Type 2 diabetes mellitus with diabetic retinopa*INVALID FOR* History of cervical cancer [Z85.41] More... History of breast cancer [Z85.3] INVALID FOR* H/O left mastectomy [Z90.12] INVALID FOR* Obesity, Class I, BMI 30-34.9 [E66.9] INVALID FOR* Other instructions from your clinician: Call with a list of sugars in one week Stop atorvastatin and call with update in a week Prescriptions ordered this encounter Disp Refills Start End INSULIN LISPRO (U-100) 100 UNIT/ML S* 1 Vi* 0 04/20/2018 Class: Med Update Si units three times a day and Sliding scale: 151-200 give 2 units 201-250 give 4 units 251-300 give 6 units 301-350 give 8 units Above 350, notify PCP GABAPENTIN 300 MG CAPSULE 04/20/2018 07/20/2018 Class: Med Update Route: ORAL Sig: Take 1 capsule by mouth once daily for 91 days. CEFUROXIME AXETIL 250 MG TABLET 20 t* 0 04/20/2018 04/30/2018 Route: ORAL Sig: Take 1 tablet by mouth twice daily for 10 days. METFORMIN 1,000 MG TABLET 30 t* 5 04/20/2018 Route: ORAL Sig: Take 1 tablet by mouth daily with breakfast. Medications Discontinued During This Encounter pantoprazole DR (PROTONIX) 40 mg tab* 30 t* 5 07/08/2017 04/20/2018 Route: ORAL Sig: Take 1 tablet by mouth once daily. Patient not taking: Reported on 01/10/2018 Disc: Course of therapy completed atorvastatin (LIPITOR) 20 mg tablet 30 t* 11 10/03/2017 04/20/2018 Route: ORAL Sig: Take 1 tablet by mouth daily at bedtime. For cholesterol. Disc: Reason for discontinue is not on file. gabapentin (NEURONTIN) 100 mg capsule 45 c* 0 02/07/2016 04/20/2018 Route: ORAL Sig: Take 1-2 capsules by mouth three times daily as needed (pain in right side) for up to 10 days. Disc: Reason for discontinue is not on file. insulin lispro (HUMALOG) 100 unit/mL* 1 Vi* 0 07/02/2017 04/20/2018 Class: Print RX Sig: Sliding scale: 151-200 give 2 units 201-250 give 4 units 251-300 give 6 units 301-350 give 8 units Above 350, notify PCP Disc: Reason for discontinue is not on file. gabapentin (NEURONTIN) 300 mg capsule 90 c* 5 07/08/2017 04/20/2018 Route: ORAL Sig: Take 1 capsule by mouth three times daily. Patient taking differently: Take 300 mg by mouth once daily. Disc: Reason for discontinue is not on file. Disposition: Return in about 3 months (around 07/20/2018). Follow-up and Disposition History Recorded Encounter Status:Closed by BRAYAN ARITA MD on 04/20/18 HEMOGLOBIN A1C Collected: 04/19/2018 Status: F Source: [place] 1:29 PM [facility] [place] REPOSITORY TYPE CODE TESTS RESULT OUT OF REFERENCE UNITS RANGE LAB HGBA1C 4.3-5.6 % High Hemoglobin A1c 8.9 LAB HBA0 mg/dL Est. Average Glucose 209 Result Comment: eAG: (Estimated average glucose) is a calculated value from HgbA1c and is event representative of the average blood glucose level in the last 2-3 month period. Performed By: #### HBA1C #### [facility] [address] [place], [place] [address] G6PD QUANT Collected: 03/14/2018 Status: F Source: [place] 3:33 PM [facility] REPOSITORY TYPE CODE TESTS RESULT OUT OF RANGE REFERENCE UNITS LAB L3300.1920 3.77-5.28 x10E6/uL Low RBC COUNT 3.68 LAB L3300.1930 146-376 Normal G6PD 313 QUANT test Result Comment: Result Units: U/10E12 RBC When decreased, G-6-PD, Quant. values are associated with acute hemolytic anemia when deficient individuals are exposed to oxidative stress, such as with certain medications (e.g., primaquine), infection, or ingestion of cristina beans. Caution: In patients with acute hemolysis (e.g., abnormally low RBC values), testing for G-6-PD may be falsely normal because older erythrocytes with a higher enzyme deficiency have been hemolyzed. Young erythrocytes and reticulocytes have normal or near-normal enzyme activity. Normal values of G-6-PD may be measured for several weeks following a hemolytic event. Performed at: - [facility] [id number] Transfer Specialist: Edmundo Workman PhD, Phone: [phone] Performed at: [facility] [id number] Transfer Specialist: Brayan Moore MD, Phone: [phone] Performed By: #### L3300.1900 #### [facility] (refer to report for specific site) refer to report for address and phone number CBC W/DIFF, AUTOMATED Collected: 03/13/2018 Status: F Source: [place] 1:11 PM [facility] REPOSITORY TYPE CODE TESTS RESULT OUT OF RANGE REFERENCE UNITS LAB L100.1000 4.4-11.0 K/mm3 Normal WBC 7.0 LAB L100.1200 4.2-5.4 M/mm3 Low RBC 3.74 LAB L100.1300 12.0-15.0 g/dl Low HGB 11.5 LAB L100.1400 37-47 % Low HCT 35.4 LAB L100.1500 81-99 fL Normal MCV 94.7 LAB L100.1600 27.0-32.0 pg Normal MCH 30.7 LAB L100.1700 32-36 g/gl Normal MCHC 32.5 LAB L100.1810 11.6-14.6 % Normal RDW CV 13.6 LAB L100.1820 35.1-43.9 fl High RDW SD 44.5 LAB L100.1900 150-450 K/mm3 Normal PLT 283 LAB L100.2000 6.2-12.0 fl Normal MPV 9.5 LAB L100.2100 47-70 % Normal NEUT% 56.5 LAB L100.2200 19-41 % Normal LY% 29.2 LAB L100.2300 0-10 % Normal MONO% 9.7 LAB L100.2400 0-5 % Normal EO% 3.6 LAB L100.2500 0-1 % Normal BASO% 0.6 LAB L100.2550 0.0-0.9 % Normal IM GRAN % 0.400 Result Comment: IG% - Immature Granulocytes (promyelocytes, myelocytes and metamyelocytes) > 1% indicates that a LEFT SHIFT is Present. LAB L100.2620 2.0-7.7 X10 3/uL Normal Absolute Neut 3.9 LAB L100.2720 0.83-4.51 X10 3/ul Normal Absolute Lymph 2.04 Performed By: #### L100.0100 #### [facility] [address] [place], [address] COMPREHENSIVE METABOLIC Collected: 03/13/2018 Status: F Source: [facility] 1:11 PM [facility] REPOSITORY TYPE CODE TESTS RESULT OUT OF RANGE REFERENCE UNITS LAB L501.0100 74-106 mg/dL High GLU 193 Result Comment: Fasting Glucose result greater than or equal to 126 mg/dL suggests DIABETES MELLITUS per A.D.A. criteria. Please note revised GLUCOSE reference range effective 2017. LAB L501.1000 7-18 mg/dL High BUN 21 LAB L501.1100 0.55-1.02 mg/dL Normal CREAT,SERUM 0.95 Result Comment: The validity of the calculated GFR AND GFRAA in patients over 70 years has not been determined. Clinical correlation is essential. LAB L501.1110 >60 mL/min Normal EST GFR 63 Result Comment: Non- GFR Calc LAB L501.1115 >60 mL/min Normal EST GFR - AA 76 Result Comment: GFR Calc LAB L501.1300 10-20 RATIO High BUN/CRE 22.2 LAB L501.1500 6.4-8.2 g/dL T Normal PROT 7.4 LAB L501.1800 3.2-5.0 g/dL Normal ALB 3.4 LAB L501.1950 2.2-4.2 g/dL Normal GLOB 4.0 LAB L501.2000 0.9-2.4 RATIO Low A/G 0.8 LAB L501.2200 8.5-10.1 mg/dL CA Normal 8.9 LAB L501.4100 15-37 U/L Normal AST 19 LAB L501.4305 45-117 U/L Normal ALK P 65 LAB L501.4405 13-56 U/L Normal ALT 27 LAB L501.4600 0.20-1.00 mg/dL T Normal BILI 0.30 LAB L501.5300 136-145 mmol/L NA Normal 140 LAB L501.5600 3.5-5.1 mmol/L K Normal 4.3 LAB L501.5900 98-107 mmol/L CL Normal 101 LAB L501.6100 21.0-32.0 mmol/L Normal CO2 30.0 LAB L501.6200 5-15 Normal GAP 9 Performed By: #### L500.4050 #### [facility] [address] [facility] [place], [address] KNEE 4 OR MORE Observed: 03/13/2018 Status: F Source: [place] VIEWS 1:10 PM [facility] REPOSITORY [facility] Imaging Services [address] [place] [address] Knee 4 or More Views MR#: [id number] Acct: [id number] Name: MANISHA KEITH Rep #: [id number] : 1950 F 67 From: Saúl Diaz DO PCP: Brayan Arita MD Status: REG CLI Study: Knee 4 or More Views Date of Exam: 03/13/18 Exam# [id number] Ordering Dr: Rachel Johnson MD STUDY: X-RAY - LEFT KNEE REASON FOR EXAM: Female, 67 years old. Pain TECHNIQUE: 4 view(s) of the knee. COMPARISON: None. FINDINGS: Normal visualized distal femur. Normal visualized proximal tibia and fibula. Normal proximal tibiofibular articulation. Normal medial femorotibial compartment. Normal lateral femorotibial compartment. Normal patellofemoral articulation. The soft tissue structures are unremarkable. RAD/Knee 4 or More Views IMPRESSION: Normal x-ray examination of the knee. Electronically Signed: Saúl Diaz DO at 20:43 EDT Tel [phone], Service support , CC: Rachel Johnson MD; Brayan Arita MD Supervisor [employer] Service: Signed KNEE 4 OR MORE Observed: 03/13/2018 Status: F Source: [place] VIEWS 1:10 PM [facility] REPOSITORY [facility] Imaging Services [address] [place] [address] Knee 4 or More Views MR#: [id number] Acct: [id number] Name: MANISHA KEITH Rep #: [id number] : 1950 F 67 From: Saúl Diaz DO PCP: Brayan Arita MD Status: REG CLI Study: Knee 4 or More Views Date of Exam: 03/13/18 Exam# [id number] Ordering Dr: Rachel Johnson MD STUDY: X-RAY - RIGHT KNEE REASON FOR EXAM: Female, 67 years old. Pain TECHNIQUE: 4 view(s) of the knee. COMPARISON: None. FINDINGS: Normal visualized distal femur. Normal visualized proximal tibia and fibula. Normal proximal tibiofibular articulation. Normal medial femorotibial compartment. Normal lateral femorotibial compartment. Normal patellofemoral articulation. The soft tissue structures are unremarkable. RAD/Knee 4 or More Views IMPRESSION: Normal x-ray examination of the knee. Electronically Signed: Saúl Diaz DO at 23:35 EDT Tel [phone], Service support , CC: Rachel Johnson MD; Brayan Arita MD Supervisor [employer] Service: Signed NCS AND/OR EMG Observed: 03/01/2018 Status: F Source: PAU PATIENT 11:06 AM [facility] REPOSITORY [facility] Pulmonary Services/Neurology [address] [place] [address] MR#: [id number] Acct: [id number] Name: MANISHA KEITH Rep #: [id number] : 1950 67 From: Nathalie Forte MD Referring Dr: Kylie Retana LASER PRINT OPERATOR Status: REG CLI Ordering Dr: Date: Location: [facility] Sex: F C NCS and/or EMG Patient Report Ordering Doctor: Kylie Retana DATE OF SERVICE: 03/01/18 Manisha Keith is a 67-year-old female presents for electrodiagnostic testing of the lower limbs. She reports chief complaint of numbness and tingling in both feet, worse on the right side. Electrodiagnostic findings: Peroneal motor nerve demonstrates normal distal latency, amplitude and conduction velocity bilaterally. Normal tibial motor response bilaterally. Prolonged tibial F-wave bilaterally. Prolonged H reflex bilaterally. Sensory responses are within normal limits. On needle EMG, all muscles tested in the lower limb show no evidence of denervation with normal motor unit action potentials. Electrodiagnostic impression: This is an abnormal study in the lower limbs. 1. Electrodiagnostic findings are suggestive of a mild polyneuropathy in the lower limbs as evidenced by prolonged H reflexes and F waves. 2. No EMG evidence for lumbosacral radiculopathy. If there are any further questions, please not hesitate to contact me 03/01/18 1106 <Electronically signed by Nathalie Forte MD> Date Nathalie Forte MD CC: LASER PRINT OPERATOR Kylie Retana; Nathalie Forte; Brayan Arita MD Date Dictated: 03/01/18 1037 Date Transcribed: 03/01/18 1037 Supervisor [employer] Service: BRETT Signed CNNURSE Observed: 02/16/2018 Status: COMPLETED Source: [place] 1:00 PM [facility] Nurse Visit (FAMPWS) MANISHA KEITH ([id number]) 1950 F Date Time Provider Department 02/16/18 1:00 PM [facility] NURSE NILESH During your visit today, we recorded the following information about you: Pulse Blood pressure 72/minute 124/68 Macarena Lepe LPN 02/16/2018 12:48 PM Signed Manual Readin/68 Pulse: 72 Reason for blood pressure check - Medication adjustment Patient is: Taking medication as prescribed Yes Took medication today Yes Experiencing side effects No Patient is alert and oriented x 3 Not a tobacco user. Recommendations Continue taking medications as prescribed Follow-up Yes as discussed Pt has been identified by name and birthdate: Yes Allergies reviewed: Yes Latex allergy: no. Medication - prescribed and OTC reviewed and updated: Yes Do you need any prescription refills prior to your next visit: No Health Maintenance: Reviewed and up to date Referring Provider: BRAYAN ARITA [[id number]] Allergies As of Date: 02/16/2018 Noted Allergy Reaction JESENIA INHIBITORS 03/27/2014 3 - Cough NSAIDS (NON-STEROIDAL ANTI-INFLAM*05/09/2009 8 - GI Upset TAPE (ADHESIVE TAPE (ROSINS)) 10/26/2016 14 - Other: See Comments Comments: Blisters from surgical tape Date Reviewed: 02/16/2018 Reviewed by: Macarena Lepe LPN - Fully Assessed Reason for Visit: Blood Pressure [15] Primary Visit Diagnosis:Essential hypertension [I10] Prescriptions as of 02/16/2018 Sig: INSULIN GLARGINE (U-100) 100 * Inject 38 Units subcutaneousl* ALENDRONATE 70 MG TABLET Take 1 tablet by mouth once e* LOSARTAN 100 MG TABLET Take 1 tablet by mouth once d* OXYBUTYNIN CHLORIDE 5 MG TABL* Take 1 tablet by mouth once d* ESOMEPRAZOLE MAGNESIUM 40 MG * Take 1 capsule by mouth twice* FLUTICASONE 50 MCG/ACTUATION * Use 1 Blanch in each nostril d* HYDROCHLOROTHIAZIDE 12.5 MG C* TAKE ONE CAPSULE BY MOUTH ONC* ATORVASTATIN 20 MG TABLET Take 1 tablet by mouth daily * COMPOUNDED PRESCRIPTION Insulin needles-1/2 cc for 10* BLOOD SUGAR DIAGNOSTIC STRIPS 1 Strip three times daily bef* FLUOROMETHOLONE 0.1 % EYE MARINE* Use 2 Drops in the left eye t* TRAMADOL 50 MG TABLET Take 50 mg by mouth every 8 h* LISINOPRIL 20 MG TABLET Take 1 tablet by mouth once d* GABAPENTIN 300 MG CAPSULE Take 1 capsule by mouth three* METFORMIN 1,000 MG TABLET Take 1 tablet by mouth daily * PANTOPRAZOLE 40 MG TABLET,DEL* Take 1 tablet by mouth once d* Patient not taking: Reported on 01/10/2018 INSULIN LISPRO (U-100) 100 UN* Sliding scale: 151-200 giv* MUPIROCIN 2 % TOPICAL OINTMENT Apply 1 application to affect* ASPIRIN 81 MG TABLET,DELAYED * Take 81 mg by mouth once burt* TRIAMCINOLONE ACETONIDE 0.1 %* Apply 1 application to affect* METHOTREXATE SODIUM 2.5 MG TA* Take 20 mg by mouth every Sun* PEN NEEDLE, DIABETIC 31 GAUGE* Use one needle per dose. 4 pe* FOLIC ACID 1 MG TABLET Take 2 tablets by mouth once * * CALCIUM 600 ORAL Take by mouth once daily. * CENTRUM SILVER ORAL Take by mouth once daily. * BLOOD-GLUCOSE METER KIT 1 Each as needed. Problem List As Of Date 02/16/2018 Noted Resolved BENIGN HYPERTENSION [I10] INVALID FOR*09/01/2007 Hyperlipidemia [E78.5] INVALID FOR* LOC PRIM OSTEOART-PELVIS [M16.10] INVALID FOR*06/04/2006 Allergic rhinitis [J30.9] INVALID FOR* Diabetes (HCC) [E11.9] INVALID FOR*06/27/2015 Unspecified sleep apnea [G47.30] INVALID FOR*12/07/2013 More... Osteoarthritis [M19.90] INVALID FOR* Irritable bowel syndrome [K58.9] INVALID FOR*11/25/2016 Dysuria [R30.0] INVALID FOR*05/25/2016 Unspecified sinusitis (chronic) [J32.9] INVALID FOR*05/25/2016 Other specified disorder of bladder [596.8] INVALID FOR*11/25/2016 ASYMPTOMATIC VARICOSE VEINS [I83.90] INVALID FOR* REFLUX ESOPHAGITIS [K21.0] ESOPHAGITIS, UNSPECIFIED [K20.9] INVALID FOR*07/30/2008 Malignant neoplasm of female breast (HCC) [C50.*INVALID FOR*05/25/2016 IBS (Irritable Bowel Syndrome) [K58.9] Heme positive stool [R19.5] 11/22/2013 Routine general medical examination at a health*INVALID FOR*11/22/2013 HTN (hypertension) [I10] INVALID FOR* Urge incontinence [N39.41] INVALID FOR* Inflammatory polyarthritis (HCC) [M06.4] More... Type 2 diabetes mellitus with diabetic retinopa*INVALID FOR* History of cervical cancer [Z85.41] More... History of breast cancer [Z85.3] INVALID FOR* H/O left mastectomy [Z90.12] INVALID FOR* Encounter Status:Closed by MACARENA LEPE LPN on 02/16/18 PROGRESS Observed: 02/16/2018 Status: COMPLETED Source: [place] 12:43 PM [facility] REPOSITORY HNO ID: [id number] Author: Macarena Lepe LPN Service: (none) Author Type: (none) Type: Progress Notes Filed: 02/16/2018 12:48 PM Note Text: Manual Readin/68 Pulse: 72 Reason for blood pressure check - Medication adjustment Patient is: Taking medication as prescribed Yes Took medication today Yes Experiencing side effects No Patient is alert and oriented x 3 Not a tobacco user. Recommendations Continue taking medications as prescribed Follow-up Yes as discussed Pt has been identified by name and birthdate: Yes Allergies reviewed: Yes Latex allergy: no. 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 She has chief complaint of numbness and tingling in both hands. Electrodiagnostic findings: Median motor nerve demonstrates prolonged distal latency bilaterally with normal amplitude and reduced conduction velocity. Prolonged median sensory distal latency bilaterally. normal ulnar and radial sensory responses. Median ulnar F waves are within normal limits ulnar motor responses normal, including conduction across the elbow. Electrodiagnostic impression: This is an abnormal study in the upper limbs. 1. Electrodiagnostic findings demonstrate bilateral median mononeuropathy. This is consistent with a moderate right carpal tunnel syndrome and a mild left carpal tunnel syndrome If there are any further questions, please do not hesitate to contact me 02/01/18 [id number] <Electronically signed by Nathalie Forte MD> Date Nathalie Forte MD CC: DANNIE Retana; Nathalie Forte; Brayan Arita MD Date Dictated: 02/01/18 1418 Date Transcribed: 02/01/181417 Super[employer]: BRETT SOLORIO DXA - AXIAL Observed: 01/17/2018 Status: F Source: [place] 1:20 PM [facility] [place] REPOSITORY * * *Final Report* * * DATE OF EXAM: Jan 17 2018 1:20PM [facility] 0804 - BD DXA - AXIAL SKELETON / PROCEDURE REASON: Asymptomatic menopausal state * * * * Physician Interpretation * * * * BONE DENSITY - 01/17/2018 1:20 PM HISTORY: INDICATIONS / RISK FACTORS / DEMOGRAPHICS: Asymptomatic menopausal state postmenopausal, diabets, hypertension, gerd, nexium, hyperlipidemia, flonase, neurontin, metformin, breast cacner, osteoporosis, cervical cancer, polyarthriti TECHNIQUE: Lumbar spine and both hips evaluated COMPARISON: None STUDY LIMITATIONS: None RESULT: LUMBAR SPINE: BMD = 0.797 g/cm2, which is -2.3 SDs (T-Score) for mean peak bone mass of young normals -0.5 SDs (Z-Score) for mean peak bone mass matched for age, sex, weight, ethnicity LEFT TOTAL HIP: BMD = 0.758 g/cm2, which is -1.5 SDs (T-Score) for mean peak bone mass of young normals -0.3 SDs (Z-Score) for mean peak bone mass matched for age, sex, weight, ethnicity LEFT FEMORAL NECK: BMD = 0.554 g/cm2, which is 1 and -2.7 SDs (T-Score) for mean peak bone mass of young normals -1.1 SDs (Z-Score) for mean peak bone mass matched for age, sex, weight, ethnicity RIGHT TOTAL HIP: BMD = 0.791 g/cm2, which is -1.2 SDs (T-Score) for mean peak bone mass of young normals 0 SDs (Z-Score) for mean peak bone mass matched for age, sex, weight, ethnicity RIGHT FEMORAL NECK: BMD = 0.564 g/cm2, which is -2.6 SDs (T-Score) for mean peak bone mass of young normals -1.0 SDs (Z-Score) for mean peak bone mass matched for age, sex, weight, ethnicity 10-year Fracture Risk (FRAX): Major osteoporotic fracture risk 13% Hip fracture risk 2.7% IMPRESSION: The patient's T- scores meet the World Health Organization classification for osteoporosis in the bilateral femoral necks. The patient may have an increased risk of insufficiency fractures. Recommendation: Follow up study in 2 years [facility] ORG. CLASSIFICATION OF BONE MASS CLASSIFICATION T-SCORE Normal Greater than or equal to -1 Low Bone Mass Between -1 and -2.5 (Osteopenia) Osteoporosis Less than or equal to -2.5 Supervisor [employer]: MOOKIE Transcribe Date/Time: Jan 18 2018 8:50A Dictated by : RERE WEINSTEIN DO This examination was interpreted and the report reviewed and electronically signed by: RERE WEINSTEIN DO on Jan 18 2018 8:51AM EST [id number] PROGRESS Observed: 01/17/2018 Status: COMPLETED Source: [place] 12:56 PM [facility] [place] REPOSITORY O ID: [id number] Author: Tiesha Hayden Rt Service: (none) Author Type: (none) Type: Progress Notes Filed: 01/17/2018 2:03 PM Note Text: Manisha Keith January 17, 2018 [id number] Double identification: Patient identified by name and Bone Density Completed. Tiesha Hayden Rt patient told of radiation jcorrina 1:00 pm not CNOV Observed: 01/10/2018 Status: COMPLETED Source: [place] 2:40 PM [facility] REPOSITORY Office Visit (FAMPWS) MANISHA KEITH ([id number]) 1950 F Date Time Provider Department 01/10/18 2:40 PM [facility] During your visit today, we recorded the following information about you: Temperature Pulse Blood pressure Weight 97.9 degrees 81/minute 132/68 76.4 kg Brayan Arita MD 01/10/2018 3:43 PM Signed Patient presents with: F/U 3 Month HPI: Patient presents today for office visit for follow up. Had labs done which are pending. DM: admits to not taking her meds like she should. Reminded her that compliance may have contributed to her encephalpathy. No polyuria. No hypoglycemia. Hypertension:no chest pain or shortness of breath. No headaches or dizziness. HLD:no myalgias. HYPERTENSION:apparently was taking lisinopril she had at home, even though she was to change to losartan a while ago. RHEUM: still seeing Dr. Johnson. Pain comes and goes. ONC:had her mammogram done. UROLOGY: just saw urology. Is only taking her neurontin twice a day. Emotionally feels worse. Neuropathy pain is stable. Discussed taking it as prescribed. MEDICATIONS: Current Outpatient Prescriptions: oxybutynin (DITROPAN) 5 mg tablet Take 1 tablet by mouth once daily. esomeprazole (NEXIUM) 40 mg capsule Take 1 capsule by mouth twice daily before meals. 1/2 hr before meal. fluticasone (FLONASE) 50 mcg/actuation nasal spray Use 1 Blanch in each nostril daily at bedtime. Use as directed. Hydrochlorothiazide 12.5 mg capsule TAKE ONE CAPSULE BY MOUTH ONCE DAILY atorvastatin (LIPITOR) 20 mg tablet Take 1 tablet by mouth daily at bedtime. For cholesterol. insulin glargine (BASAGLAR KWIKPEN) 100 unit/mL (3 mL) inpn Inject 35 Units subcutaneously twice daily. COMPOUNDED PRESCRIPTION Insulin needles-1/2 cc for 100 uUse up to 4 a day blood sugar diagnostic (ONETOUCH ULTRA TEST) test strip 1 Strip three times daily before meals. Dx: E11.319 Insulin: Yes fluorometholone (FML LIQUID FILM) 0.1 % ophthalmic suspension Use 2 Drops in the left eye twice daily. traMADol (ULTRAM) 50 mg tablet Take 50 mg by mouth every 8 hours as needed for Pain. lisinopril (ZESTRIL, PRINIVIL) 20 mg tablet Take 1 tablet by mouth once daily. gabapentin (NEURONTIN) 300 mg capsule Take 1 capsule by mouth three times daily. metFORMIN (GLUCOPHAGE) 1,000 mg tablet Take 1 tablet by mouth daily with breakfast. insulin lispro (HUMALOG) 100 unit/mL injection Sliding scale:151- 200 give 2 [id number] give 4 -651 give 6 [id number] give 8 unitsAbove 350, notify PCP mupirocin (BACTROBAN) 2 % ointment Apply 1 application to affected area three times daily. Location: boils losartan (COZAAR) 100 mg tablet Take 1 tablet by mouth once daily. aspirin, enteric coated (ASPIRIN, ENTERIC COATED) 81 mg EC tablet Take 81 mg by mouth once daily. triamcinolone acetonide (KENALOG) 0.1 % cream Apply 1 application to affected area twice daily. methotrexate 2.5 mg tablet Take 20 mg by mouth every Tuesday. insulin needles, DISPOSABLE, (PEN NEEDLE) 31 gauge x 12/28 ndle Use one needle per dose. 4 per day. folic acid 1 mg tablet Take 2 tablets by mouth once daily. Dr. Johnson CALCIUM CARBONATE (CALCIUM 600 ORAL) Take by mouth once daily. MULTIVITAMIN W-MINERALS/LUTEIN (CENTRUM SILVER ORAL) Take by mouth once daily. Blood-Glucose Meter (ONE TOUCH ULTRA SYSTEM KIT) Misc monitoring kit 1 Each as needed. pantoprazole DR (PROTONIX) 40 mg tablet Take 1 tablet by mouth once daily. (Patient not taking: Reported on 01/10/2018 ) No current facility-administered medications for this visit. ALLERGIES: ALLERGIES Allergen Reactions - Jesenia Inhibitors Cough - Nsaids (Non-Steroid* GI Upset - Tape [Adhesive Tape* Other: See Comments Blisters from surgical tape PAST MEDICAL HISTORY Diagnosis Date - Allergic rhinitis, cause unspecified - Breast cancer (HCC) age 34-had lump, cancerous cells. no issues since - Diverticulosis of colon (without mention of hemorrhage) - Heme positive stool 2010 - History of cervical cancer regular Paps for life - Hyperlipidemia 2010 - Inflammatory polyarthritis ([facility]) Dr. 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) - Type II or unspecified type diabetes mellitus without mention of complication, not stated as uncontrolled - Unspecified essential hypertension PAST SURGICAL HISTORY Procedure Laterality Date - APPENDECTOMY - COLONOSCOP W/ OR W/O BRSH SPEC 06/26/09 - EGD 2010 - ERCP W/O BRUSH/WASH SPECIMEN 07/23/2008 Cholangiopancreatography (ERCP) - MASTECTOMY age 34 Mastectomy - simple - REMV 2ND CATARACT,CORN-SCLER SECTN Cataract removal BILATERAL - TOTAL ABDOM HYSTERECTOMY age 27 Hysterectomy, MARQUES cervical cancer FAMILY HISTORY Problem Relation Age of Onset - None Mother - None Father - Breast Cancer Maternal Aunt Social History Marital status: Spouse name: Years of education: Number of children: 2 Occupational History Occupation Employer Comment [employer] Social History Main Topics Smoking status: Former Smoker Packs/day: 0.75 Years: 30.00 Types: Cigarettes Quit date: 08/15/2000 Smokeless tobacco: Never Used Alcohol use: Yes Comment: rarely Drug use: No Sexual activity: No Reviewed current medications, allergies, past medical history, surgical history, family history and social history today. REVIEW OF SYSTEMS All other reviewed and negative other than HPI. HEALTH MAINTENANCE: Reviewed health maintenance issues today and recommended the following in detail. BONE DENSITY-recommended. ADULT PREVNAR-13 -recommended. PNEUMOVAX AGE 65 AND OVER WITH 5YR LOOKBACK(1) due on 2017 DIABETIC FOOT EXAM due on 05/25/2017 VITALS: BP 132/68 (BP Site: Left Arm, BP Position: Sitting, BP Cuff Size: Regular Adult) Pulse 81 Temp 36.6 ?C (97.9 ?F) Wt 76.4 kg (168 lb 6.4 oz) SpO2 97% BMI 30.31 kg/m? Last 4 Encounter Wt Readings: Date: Wt: 01/10/2018 76.4 kg (168 lb 6.4 oz) 11/10/2017 74.4 kg (164 lb) 10/11/2017 73.9 kg (163 lb) 08/29/2017 74.4 kg (164 lb) PHYSICAL EXAMINATION: General appearance: Well appearing, alert, in no acute distress, well-hydrated, well nourished. Skin: Skin color, texture, turgor normal, no suspicious rashes or lesions Head: Normocephalic, no masses, lesions, tenderness or abnormalities Neck: Supple, no adenopathy; thyroid symmetric, normal size, no bruits Lungs: Lungs clear to auscultation. No wheezing, rhonchi, rales Heart: RRR without murmur, gallop, or rubs. No ectopy Abdomen: Normal abdominal exam, Abdomen soft, non-tender. Bowel sounds normal. No masses, organomegaly Extremities: No deformities, edema, skin discoloration, clubbing or cyanosis. Good capillary refill. Musculoskeletal: No joint swelling, deformity, or tenderness Feet:Shoes and socks removed, No deformities, ulcers, calluses, normal distal pulses and sensitive to 10 gm monofilament ASSESSMENT/PLAN: 1. Asymptomatic postmenopausal status - ICD9: V49.81, ICD10: Z78.0 (primary diagnosis) - check bone density - DXA-AXIAL SKELETON WITH VFA 2. Essential hypertension - ICD9: 401.9, ICD10: I10 - good control - Encouraged dietary sodium restriction/DASH diet - Recommended regular aerobic exercise. - Take losartan as prescribed and recheck bp - Goal of BP <130/80 - LOSARTAN 100 MG TABLET 3. Need for vaccination - ICD9: V05.9, ICD10: Z23 - PNEUMOCOCCAL-13 VACCINE PCV-13 4. Mixed hyperlipidemia - ICD9: 272.2, ICD10: E78.2 - to be determined upon return of lab results - Continue current medication. 5. Urge incontinence - ICD9: 788.31, ICD10: N39.41 - per urology 6. Inflammatory polyarthritis (HCC) - ICD9: 714.9, ICD10: M06.4 - continue to see rheum 7. 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 History of breast cancer - ICD9: V10.3, ICD10: Z85.3 - stable, continue to get regular mammograms 9. H/O left mastectomy - ICD9: V45.71, ICD10: Z90.12 10. 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 Brayan Arita MD RTO in three months and prn. Brayan Arita MD 01/10/2018 2:42 PM Signed BONE MINERAL DENSITY PATIENT INSTRUCTIONS Bone mineral density testing measures the amount of calcium in certain parts of your bones. This information determines how strong your bones are. The test is used to detect osteoporosis, a disease in which the bone's mineral content and density are low, increasing a person's risk of fractures. The lumbar spine (lower back) and the hip are the skeletal sites usually examined. For the test, remember that: 1. You cannot take this test if you are . 2. Eat a normal diet on the day of the test. 3. Take your medications as you normally would. 4. DO NOT take calcium supplements (such as Tums) for 24 hours before the test. 5. On the day of the test, leave valuables (jewelry or credit cards) at home. 6. The test should be performed prior to oral, rectal or IV contrast studies, or at least 7 days after any of these studies. For the test, you may be asked to wear a hospital gown. You will lie on your back, on a padded table, in a comfortable position. Generally, you can resume your usual activities immediately. Referring Provider: BRAYAN ARITA [[id number]] Allergies As of Date: 01/10/2018 Noted Allergy Reaction JESENIA INHIBITORS 03/27/2014 3 - Cough NSAIDS (NON-STEROIDAL ANTI-INFLAM*05/09/2009 8 - GI Upset TAPE (ADHESIVE TAPE (ROSINS)) 10/26/2016 14 - Other: See Comments Comments: Blisters from surgical tape Date Reviewed: 01/10/2018 Reviewed by: Rica Hogan LPN - Fully Assessed Reason for Visit: F/U 3 Month [443] Primary Visit Diagnosis:Asymptomatic postmenopausal status [Z78.0] Other Visit Diagnoses:Essential hypertension [I10] Need for vaccination [Z23] Mixed hyperlipidemia [E78.2] Urge incontinence [N39.41] Inflammatory polyarthritis (HCC) [M06.4] 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, with long-term current use of insulin, macular edema presence unspecified, unspecified laterality, unspecified proliferative retinopathy* (HCC) [E11.3599, Z79.4] History of breast cancer [Z85.3] H/O left mastectomy [Z90.12] History of cervical cancer [Z85.41] Order(s):losartan (COZAAR) 100 mg tabletTake 1 tablet by mouth once daily.Disp: 30 tabletRfl: 5 PNEUMOCOCCAL-13 VACCINE PCV-13 [[id number]] Order #: [id number] DXA-AXIAL SKELETON WITH VFA [[id number]] Order #: [id number] FUTURE Prescriptions as of 01/10/2018 Sig: LOSARTAN 100 MG TABLET Take 1 tablet by mouth once d* OXYBUTYNIN CHLORIDE 5 MG TABL* Take 1 tablet by mouth once d* ESOMEPRAZOLE MAGNESIUM 40 MG * Take 1 capsule by mouth twice* FLUTICASONE 50 MCG/ACTUATION * Use 1 Blanch in each nostril d* HYDROCHLOROTHIAZIDE 12.5 MG C* TAKE ONE CAPSULE BY MOUTH ONC* ATORVASTATIN 20 MG TABLET Take 1 tablet by mouth daily * INSULIN GLARGINE (U-100) 100 * Inject 35 Units subcutaneousl* COMPOUNDED PRESCRIPTION Insulin needles-1/2 cc for 10* BLOOD SUGAR DIAGNOSTIC STRIPS 1 Strip three times daily bef* FLUOROMETHOLONE 0.1 % EYE MARINE* Use 2 Drops in the left eye t* TRAMADOL 50 MG TABLET Take 50 mg by mouth every 8 h* LISINOPRIL 20 MG TABLET Take 1 tablet by mouth once d* GABAPENTIN 300 MG CAPSULE Take 1 capsule by mouth three* METFORMIN 1,000 MG TABLET Take 1 tablet by mouth daily * INSULIN LISPRO (U-100) 100 UN* Sliding scale: 151-200 giv* MUPIROCIN 2 % TOPICAL OINTMENT Apply 1 application to affect* ASPIRIN 81 MG TABLET,DELAYED * Take 81 mg by mouth once burt* TRIAMCINOLONE ACETONIDE 0.1 %* Apply 1 application to affect* METHOTREXATE SODIUM 2.5 MG TA* Take 20 mg by mouth every Sun* PEN NEEDLE, DIABETIC 31 GAUGE* Use one needle per dose. 4 pe* FOLIC ACID 1 MG TABLET Take 2 tablets by mouth once * * CALCIUM 600 ORAL Take by mouth once daily. * CENTRUM SILVER ORAL Take by mouth once daily. * BLOOD-GLUCOSE METER KIT 1 Each as needed. PANTOPRAZOLE 40 MG TABLET,DEL* Take 1 tablet by mouth once d* Patient not taking: Reported on 01/10/2018 Problem List As Of Date 01/10/2018 Noted Resolved BENIGN HYPERTENSION [I10] INVALID FOR*09/01/2007 Hyperlipidemia [E78.5] INVALID FOR* LOC PRIM OSTEOART-PELVIS [M16.10] INVALID FOR*06/04/2006 Allergic rhinitis [J30.9] INVALID FOR* Diabetes (HCC) [E11.9] INVALID FOR*06/27/2015 Unspecified sleep apnea [G47.30] INVALID FOR*12/07/2013 More... Osteoarthritis [M19.90] INVALID FOR* Irritable bowel syndrome [K58.9] INVALID FOR*11/25/2016 Dysuria [R30.0] INVALID FOR*05/25/2016 Unspecified sinusitis (chronic) [J32.9] INVALID FOR*05/25/2016 Other specified disorder of bladder [596.8] INVALID FOR*11/25/2016 ASYMPTOMATIC VARICOSE VEINS [I83.90] INVALID FOR* REFLUX ESOPHAGITIS [K21.0] ESOPHAGITIS, UNSPECIFIED [K20.9] INVALID FOR*07/30/2008 Malignant neoplasm of female breast (HCC) [C50.*INVALID FOR*05/25/2016 IBS (Irritable Bowel Syndrome) [K58.9] Heme positive stool [R19.5] 11/22/2013 Routine general medical examination at a [facility]*INVALID FOR*11/22/2013 HTN (hypertension) [I10] INVALID FOR* Urge incontinence [N39.41] INVALID FOR* Inflammatory polyarthritis (HCC) [M06.4] More... Type 2 diabetes mellitus with diabetic retinopa*INVALID FOR* History of cervical cancer [Z85.41] More... History of breast cancer [Z85.3] INVALID FOR* H/O left mastectomy [Z90.12] INVALID FOR* Other instructions from your clinician: BONE MINERAL DENSITY PATIENT INSTRUCTIONS Bone mineral density testing measures the amount of calcium in certain parts of your bones. This information determines how strong your bones are. The test is used to detect osteoporosis, a disease in which the bone's mineral content and density are low, increasing a person's risk of fractures. The lumbar spine (lower back) and the hip are the skeletal sites usually examined. For the test, remember that: 1. You cannot take this test if you are . 2. Eat a normal diet on the day of the test. 3. Take your medications as you normally would. 4. DO NOT take calcium supplements (such as Tums) for 24 hours before the test. 5. On the day of the test, leave valuables (jewelry or credit cards) at home. 6. The test should be performed prior to oral, rectal or IV contrast studies, or at least 7 days after any of these studies. For the test, you may be asked to wear a hospital gown. You will lie on your back, on a padded table, in a comfortable position. Generally, you can resume your usual activities immediately. Prescriptions ordered this encounter Disp Refills Start End LOSARTAN 100 MG TABLET 30 t* 5 01/10/2018 Route: ORAL Sig: Take 1 tablet by mouth once daily. Medications Discontinued During This Encounter losartan (COZAAR) 100 mg tablet 30 t* 5 11/25/2016 01/10/2018 Route: ORAL Sig: Take 1 tablet by mouth once daily. Disc: Reason for discontinue is not on file. Disposition: Return in about 3 months (around 04/12/2018). Follow-up and Disposition History Recorded Encounter Status:Closed by BRAYAN ARITA MD on 01/10/18 PROGRESS Observed: 01/10/2018 Status: COMPLETED Source: [place] [address]:33 PM [facility] REPOSITORY HNO ID: [id number] Author: Brayan Arita Service: (none) Author Type: Physician Type: Progress Notes Filed: 01/10/2018 3:43 PM Note Text: Patient presents with: F/U 3 Month HPI: Patient presents today for office visit for follow up. Had labs done which are pending. DM: admits to not taking her meds like she should. Reminded her that compliance may have contributed to her encephalpathy. No polyuria. No hypoglycemia. Hypertension:no chest pain or shortness of breath. No headaches or dizziness. HLD:no myalgias. HYPERTENSION:apparently was taking lisinopril she had at home, even though she was to change to losartan a while ago. RHEUM: still seeing Dr. Johnson. Pain comes and goes. ONC:had her mammogram done. UROLOGY: just saw urology. Is only taking her neurontin twice a day. Emotionally feels worse. Neuropathy pain is stable. Discussed taking it as prescribed. MEDICATIONS: Current Outpatient Prescriptions: oxybutynin (DITROPAN) 5 mg tablet Take 1 tablet by mouth once daily. esomeprazole (NEXIUM) 40 mg capsule Take 1 capsule by mouth twice daily before meals. 1/2 hr before meal. fluticasone (FLONASE) 50 mcg/actuation nasal spray Use 1 Blanch in each nostril daily at bedtime. Use as directed. Hydrochlorothiazide 12.5 mg capsule TAKE ONE CAPSULE BY MOUTH ONCE DAILY atorvastatin (LIPITOR) 20 mg tablet Take 1 tablet by mouth daily at bedtime. For cholesterol. insulin glargine (BASAGLAR KWIKPEN) 100 unit/mL (3 mL) inpn Inject 35 Units subcutaneously twice daily. COMPOUNDED PRESCRIPTION Insulin needles-1/2 cc for 100 uUse up to 4 a day blood sugar diagnostic (StampedTOUCH ULTRA TEST) test strip 1 Strip three times daily before meals. Dx: E11.319 Insulin: Yes fluorometholone (FML LIQUID FILM) 0.1 % ophthalmic suspension Use 2 Drops in the left eye twice daily. traMADol (ULTRAM) 50 mg tablet Take 50 mg by mouth every 8 hours as needed for Pain. lisinopril (ZESTRIL, PRINIVIL) 20 mg tablet Take 1 tablet by mouth once daily. gabapentin (NEURONTIN) 300 mg capsule Take 1 capsule by mouth three times daily. metFORMIN (GLUCOPHAGE) 1,000 mg tablet Take 1 tablet by mouth daily with breakfast. insulin lispro (HUMALOG) 100 unit/mL injection Sliding scale:151- 200 give 2 [id number] give 4 -085 give 6 [id number] give 8 unitsAbove 350, notify PCP mupirocin (BACTROBAN) 2 % ointment Apply 1 application to affected area three times daily. Location: boils losartan (COZAAR) 100 mg tablet Take 1 tablet by mouth once daily. aspirin, enteric coated (ASPIRIN, ENTERIC COATED) 81 mg EC tablet Take 81 mg by mouth once daily. triamcinolone acetonide (KENALOG) 0.1 % cream Apply 1 application to affected area twice daily. methotrexate 2.5 mg tablet Take 20 mg by mouth every Tuesday. insulin needles, DISPOSABLE, (PEN NEEDLE) 31 gauge x 5/16 ndle Use one needle per dose. 4 per day. folic acid 1 mg tablet Take 2 tablets by mouth once daily. Dr. Johnson CALCIUM CARBONATE (CALCIUM 600 ORAL) Take by mouth once daily. MULTIVITAMIN W-MINERALS/LUTEIN (CENTRUM SILVER ORAL) Take by mouth once daily. Blood-Glucose Meter (ONE TOUCH ULTRA SYSTEM KIT) Misc monitoring kit 1 Each as needed. pantoprazole DR (PROTONIX) 40 mg tablet Take 1 tablet by mouth once daily. (Patient not taking: Reported on 01/10/2018 ) No current facility-administered medications for this visit. ALLERGIES: ALLERGIES Allergen Reactions - Jesenia Inhibitors Cough - Nsaids (Non-Steroid* GI Upset - Tape [Adhesive Tape* Other: See Comments Blisters from surgical tape PAST MEDICAL HISTORY Diagnosis Date - Allergic rhinitis, cause unspecified - Breast cancer (HCC) age 34-had lump, cancerous cells. no issues since - Diverticulosis of colon (without mention of hemorrhage) - Heme positive stool 2010 - History of cervical cancer regular Paps for life - Hyperlipidemia 2010 - Inflammatory polyarthritis (HCC) Dr. 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) - Type II or unspecified type diabetes mellitus without mention of complication, not stated as uncontrolled - Unspecified essential hypertension PAST SURGICAL HISTORY Procedure Laterality Date - APPENDECTOMY - COLONOSCOP W/ OR W/O BRSH SPEC 06/26/09 - EGD 2010 - ERCP W/O BRUSH/WASH SPECIMEN 07/23/2008 Cholangiopancreatography (ERCP) - MASTECTOMY age 34 Mastectomy - simple - REMV 2ND CATARACT,CORN-SCLER SECTN Cataract removal BILATERAL - TOTAL ABDOM HYSTERECTOMY age 27 Hysterectomy, MARQUES cervical cancer FAMILY HISTORY Problem Relation Age of Onset - None Mother - None Father - Breast Cancer Maternal Aunt Social History Marital status: Spouse name: Years of education: Number of children: 2 Occupational History Occupation Employer Comment [employer] Social History Main Topics Smoking status: Former Smoker Packs/day: 0.75 Years: 30.00 Types: Cigarettes Quit date: 08/15/2000 Smokeless tobacco: Never Used Alcohol use: Yes Comment: rarely Drug use: No Sexual activity: No Reviewed current medications, allergies, past medical history, surgical history, family history and social history today. REVIEW OF SYSTEMS All other reviewed and negative other than HPI. HEALTH MAINTENANCE: Reviewed health maintenance issues today and recommended the following in detail. BONE DENSITY-recommended. ADULT PREVNAR-13 -recommended. PNEUMOVAX AGE 65 AND OVER WITH 5YR LOOKBACK(1) due on 2017 DIABETIC FOOT EXAM due on 05/25/2017 VITALS: BP 132/68 (BP Site: Left Arm, BP Position: Sitting, BP Cuff Size: Regular Adult) Pulse 81 Temp 36.6 ?C (97.9 ?F) Wt 76.4 kg (168 lb 6.4 oz) SpO2 97% BMI 30.31 kg/m? Last 4 Encounter Wt Readings: Date: Wt: 01/10/2018 76.4 kg (168 lb 6.4 oz) 11/10/2017 74.4 kg (164 lb) 10/11/2017 73.9 kg (163 lb) 08/29/2017 74.4 kg (164 lb) PHYSICAL EXAMINATION: General appearance: Well appearing, alert, in no acute distress, well-hydrated, well nourished. Skin: Skin color, texture, turgor normal, no suspicious rashes or lesions Head: Normocephalic, no masses, lesions, tenderness or abnormalities Neck: Supple, no adenopathy; thyroid symmetric, normal size, no bruits Lungs: Lungs clear to auscultation. No wheezing, rhonchi, rales Heart: RRR without murmur, gallop, or rubs. No ectopy Abdomen: Normal abdominal exam, Abdomen soft, non-tender. Bowel sounds normal. No masses, organomegaly Extremities: No deformities, edema, skin discoloration, clubbing or cyanosis. Good capillary refill. Musculoskeletal: No joint swelling, deformity, or tenderness Feet:Shoes and socks removed, No deformities, ulcers, calluses, normal distal pulses and sensitive to 10 gm monofilament ASSESSMENT/PLAN: 1. Asymptomatic postmenopausal status - ICD9: V49.81, ICD10: Z78.0 (primary diagnosis) - check bone density - DXA-AXIAL SKELETON WITH VFA 2. Essential hypertension - ICD9: 401.9, ICD10: I10 - good control - Encouraged dietary sodium restriction/DASH diet - Recommended regular aerobic exercise. - Take losartan as prescribed and recheck bp - Goal of BP <130/80 - LOSARTAN 100 MG TABLET 3. Need for vaccination - ICD9: V05.9, ICD10: Z23 - PNEUMOCOCCAL-13 VACCINE PCV-13 4. Mixed hyperlipidemia - ICD9: 272.2, ICD10: E78.2 - to be determined upon return of lab results - Continue current medication. 5. Urge incontinence - ICD9: 788.31, ICD10: N39.41 - per urology 6. Inflammatory polyarthritis (HCC) - ICD9: 714.9, ICD10: M06.4 - continue to see rheum 7. 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 History of breast cancer - ICD9: V10.3, ICD10: Z85.3 - stable, continue to get regular mammograms 9. H/O left mastectomy - ICD9: V45.71, ICD10: Z90.12 10. 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 Brayan Arita MD RTO in three months and prn. ALBUMIN/CREAT RATIO Collected: 01/10/2018 Status: F Source: [place] 2:19 PM [facility] REPOSITORY TYPE CODE TESTS RESULT OUT OF REFERENCE UNITS RANGE LAB UCRR 20-300 mg/dL 76.6 Creatinine,Ur ine,Ran LAB UALBR 0.0-23.0 mg/L <12.0 Albumin Urine Random LAB UALBCR 0-30 mg/g Not Albumin/Creat calculated Ratio Performed By: #### UACR #### [facility] [address] [place], [place] [address] BASIC METABOLIC PANL Collected: 01/10/2018 Status: F Source: [place] 2:19 PM [facility] REPOSITORY TYPE CODE TESTS RESULT OUT OF REFERENCE UNITS RANGE LAB GLU 74-99 mg/dL High Glucose 102 Result Comment: The [place] Diabetes Association (ADA) provides guidance for cutoff values for fasting glucose and random glucose. The ADA defines fasting as no caloric intake for at least 8 hours. Fas ting plasma glucose results between 100 to 125 mg/dL indicate increased risk for diabetes (prediabetes). Fasting plasma glucose results greater than or equal to 126 mg/dL meet the criteria for diagnosis of diabetes. In the absence of unequivocal hyperglycemia, results should be confirmed by repeat testing. In a patient with classic symptoms of hyperglycemia or hyperglycemic crisis, random plasma glucose results greater than or equal to 200 mg/dL meet the criteria for diagnosis of diabetes. Reference: Standards of Medical Care in Diabetes 2016, [place] Diabetes Association. Diabetes Care. 2016.39(Suppl 1). LAB BUN 7-21 mg/dL BUN 16 LAB CRET 0.58-0.96 mg/dL Creatinine 0.84 LAB NA 136-144 mmol/L Sodium 141 LAB K 3.7-5.1 mmol/L Potassium 4.4 LAB CL 97-105 mmol/L Chloride 100 LAB CO2 22-30 mmol/L CO2 28 LAB AGAP 9-18 mmol/L Anion Gap 13 LAB CA 8.5-10.2 mg/dL Calcium, Total 9.1 LAB GFRAA eGFR- Amer. >60 LAB GFRNAA . eGFR-All Other Races >60 Result Comment: eGFR (Estimated GFR) Units of measure: mL/min/1.73 meters squared eGFR is derived from the reexpressed MDRD Study equation using the following parameters: serum creatinine, age, gender and race. The creatinine assay has been calibrated to be traceable to IDMS. An eGFR <60 mL/min/1.73m2 for >3 months is consistent with chronic kidney disease. Refer to KDOQI guidelines for clinical interpretation. In patients with unstable renal function, e.g. those with acute kidney injury, the eGFR may not accurately reflect actual GFR. Performed By: #### BMP, LIPB, HBA1C #### [facility] [address] [place], [place] [address] LIPID PANEL, BASIC Collected: 01/10/2018 Status: F Source: [place] 2:19 PM [facility] REPOSITORY TYPE CODE TESTS RESULT OUT OF REFERENCE UNITS RANGE LAB CHOL <200 mg/dL Cholesterol 169 Result Comment: <200 mg/dL, Desirable 200-239 mg/dL, Borderline high >239 mg/dL, High LAB TRIGLY <150 mg/dL Triglyceride 84 Result Comment: <150 mg/dL, Normal 150-199 mg/dL, Borderline high 200-499 mg/dL, High >499 mg/dL, Very high LAB HDL >39 mg/dL HDL-Cholesterol 72 Result Comment: 40-59 mg/dL, Acceptable >59 mg/dL, High: Negative risk factor for coronary heart disease <40 mg/dL, Low: Positive risk factor for coronary heart disease LAB LDL <100 mg/dL LDL-Cholesterol 80 Result Comment: <100 mg/dL, Optimal 100-129 mg/dL, Near optimal/above optimal 130-159 mg/dL, Borderline high 160-189 mg/dL, High >189 mg/dL, Very high Secondary prevention optimal LDL Cholesterol levels are recommended to be < 70 mg/dL LAB NONHDL <130 mg/dL Non HDL Cholesterol 97 Result Comment: <130 mg/dL, Optimal 130-159 mg/dL, Near optimal/above optimal 160-189 mg/dL, Borderline high 190-219 mg/dL, High >219 mg/dL, Very high Secondary prevention optimal non HDL Cholesterol levels are recommended to be < 100 mg/dL LAB FT hrs Fasting Time 9 LAB VLDL <30 mg/dL VLDL Cholesterol 17 LAB TCHDL <5.10 TC:HDL Ratio 2.35 LAB LDLHDL <2.54 LDL:HDL Ratio 1.11 Result Comment: Reference: 1. National Cholesterol Education Program ATP III Guideline At-A-Glance Quick Desk Reference: National Heart, Lung, and Blood [place]. National Institutes of Health. 2001: NIH Publication No. 01-3305. 2. An International Atherosclerosis Society position paper: global recommendations for the management of dyslipidemia: executive summary, Atherosclerosis. 2014: 232(2):410-413. Performed By: #### BMP, LIPB, HBA1C #### [facility] [address], [place] [address] HEMOGLOBIN A1C Collected: 01/10/2018 Status: F Source: [place] 2:19 PM [facility] REPOSITORY TYPE CODE TESTS RESULT OUT OF REFERENCE UNITS RANGE LAB HGBA1C 4.3-5.6 % High Hemoglobin A1c 8.8 LAB HBA0 mg/dL Est. Average Glucose 206 Result Comment: eAG: (Estimated average glucose) is a calculated value from HgbA1c and is event representative of the average blood glucose level in the last 2-3 month period. Performed By: #### BMP, LIPB, HBA1C #### [facility] [employer] [address] [place], [place] [address] COMPREHENSIVE METABOLIC Collected: 12/22/2017 Status: F Source: [facility] 4:06 PM [facility] REPOSITORY TYPE CODE TESTS RESULT OUT OF RANGE REFERENCE UNITS LAB L501.0100 74-106 mg/dL High GLU 175 Result Comment: Fasting Glucose result greater than or equal to 126 mg/dL suggests DIABETES MELLITUS per A.D.A. criteria. Please note revised GLUCOSE reference range effective 2017. LAB L501.1000 7-18 mg/dL Normal BUN 15 LAB L501.1100 0.55-1.02 mg/dL Normal CREAT,SERUM 0.89 Result Comment: The validity of the calculated GFR AND GFRAA in patients over 70 years has not been determined. Clinical correlation is essential. LAB L501.1110 >60 mL/min Normal EST GFR 68 Result Comment: Non- GFR Calc LAB L501.1115 >60 mL/min Normal EST GFR - AA 82 Result Comment: GFR Calc LAB L501.1300 10-20 RATIO Normal BUN/CRE 16.9 LAB L501.1500 6.4-8.2 g/dL T Normal PROT 7.9 LAB L501.1800 3.2-5.0 g/dL Normal ALB 3.5 LAB L501.1950 2.2-4.2 g/dL High GLOB 4.4 LAB L501.2000 0.9-2.4 RATIO Low A/G 0.8 LAB L501.2200 8.5-10.1 mg/dL CA Normal 9.1 LAB L501.4100 15-37 U/L Low AST 11 LAB L501.4305 45-117 U/L Normal ALK P 64 LAB L501.4405 13-56 U/L Normal ALT 23 LAB L501.4600 0.20-1.00 mg/dL T Normal BILI 0.30 LAB L501.5300 136-145 mmol/L NA Normal 140 LAB L501.5600 3.5-5.1 mmol/L K Normal 4.6 LAB L501.5900 98-107 mmol/L CL Normal 104 LAB L501.6100 21.0-32.0 mmol/L Normal CO2 31.0 LAB L501.6200 5-15 Normal GAP 5 Performed By: #### L500.4050 #### [facility] [address] [place], [address] CBC W/DIFF, AUTOMATED Collected: 12/22/2017 Status: F Source: [place] 4:06 PM [facility] REPOSITORY TYPE CODE TESTS RESULT OUT OF RANGE REFERENCE UNITS LAB L100.1000 4.4-11.0 K/mm3 Normal WBC 6.6 LAB L100.1200 4.2-5.4 M/mm3 Low RBC 3.82 LAB L100.1300 12.0-15.0 g/dl Normal HGB 12.1 LAB L100.1400 37-47 % Low HCT 36.3 LAB L100.1500 81-99 fL Normal MCV 95.0 LAB L100.1600 27.0-32.0 pg Normal MCH 31.7 LAB L100.1700 32-36 g/gl Normal MCHC 33.3 LAB L100.1810 11.6-14.6 % Normal RDW CV 13.2 LAB L100.1820 35.1-43.9 fl Normal RDW SD 43.8 LAB L100.1900 150-450 K/mm3 Normal PLT 293 LAB L100.2000 6.2-12.0 fl Normal MPV 10.0 LAB L100.2100 47-70 % Normal NEUT% 67.0 LAB L100.2200 19-41 % Normal LY% 21.4 LAB L100.2300 0-10 % Normal MONO% 8.1 LAB L100.2400 0-5 % Normal EO% 2.4 LAB L100.2500 0-1 % Normal BASO% 0.8 LAB L100.2550 0.0-0.9 % Normal IM GRAN % 0.300 Result Comment: IG% - Immature Granulocytes (promyelocytes, myelocytes and metamyelocytes) > 1% indicates that a LEFT SHIFT is Present. LAB L100.2620 2.0-7.7 X10 3/uL Normal Absolute Neut 4.4 LAB L100.2720 0.83-4.51 X10 3/ul Normal Absolute Lymph 1.41 Performed By: #### L100.0100 #### [facility] [address] [facility] [place], [address] SPINE THORACIC Observed: 11/14/2017 Status: F Source: [place] WITHOUT CONTRAS 3:57 PM [facility] REPOSITORY [facility] [address] [place] [address] Spine Thoracic without Contras MR#: [id number] Acct: [id number] Name: MANISHA KEITH Rep #: [id number] : 1950 F 67 From: Mehdi Polanco DO PCP: Brayan Arita MD Status: REG CLI Study: Spine Thoracic without Contras Date of Exam: 11/14/17 Exam# [id number] Ordering Dr: Kylie Retana LASER PRINT OPERATOR-Wen STUDY: CT THORACIC SPINE WITHOUT CONTRAST REASON FOR EXAM: Female, 67 years old. Numbness and pain in the neck and hands. RADIATION DOSAGE (If Supplied By Facility): CTDIvol = ( 27.60 ) mGy, DLP = ( 1125.87 ) mGycm TECHNIQUE: The patient was scanned in a multi detector CT scanner. High resolution imaging was performed. Images were obtained from C4 to L2. Sagittal and coronal images were reconstructed. Individualized dose optimization techniques were used for this CT. COMPARISON: CT of the cervical spine, November 14, 2017 FINDINGS: There is multilevel endplate spondylosis of the cervical spine. There is minimal exaggeration of the thoracic kyphosis. There is a levoscoliosis with the convexity at T8. There is multilevel endplate spondylosis of the thoracic spine. There is multilevel degenerative disc disease with loss of the disc space heights. There is no evidence of acute fracture or loss of vertebral axial height. The soft tissue structures are unremarkable. CT/Spine Thoracic without Contras IMPRESSION: Scoliosis and degenerative changes of the thoracic spine. Electronically Signed: Mehdi Polanco DO at 16:41 EDT Tel [phone], Service support , CC: DANNIE Retana; Brayan Arita MD Supervisor [employer] Service: Signed SPINE CERVICAL Observed: 11/14/2017 Status: F Source: [place] [facility]AS 3:57 PM [facility] REPOSITORY [facility] Services [address] [place] [address] Spine Cervical without Contras MR#: [id number] Acct: [id number] Name: MANISHA KEITH Rep #: [id number] : 1950 F 67 From: Jose May MD PCP: Brayan Arita MD Status: REG CLI Study: Spine Cervical without Contras Date of Exam: 11/14/17 Exam# [id number] Ordering Dr: Kylie Retana LASER PRINT OPERATOR-C STUDY: CT CERVICAL SPINE WITHOUT CONTRAST REASON FOR EXAM: Female, 67 years old. Numbness RADIATION DOSAGE (If Supplied By Facility): CTDIvol = ( 17.90 ) mGy, DLP = ( 318.42 ) mGycm TECHNIQUE: High resolution transaxial imaging was performed without contrast material. Sagittal and coronal images were reconstructed. Individualized dose optimization techniques were used for this CT. COMPARISON: None available. FINDINGS: There is no evidence of fracture or dislocation in the cervical spine. The dens is intact. Alignment is normal. The vertebral body heights and disc spaces are well-maintained. There are mild degenerative changes with facet hypertrophy and endplate spondylosis throughout the cervical spine. The visualized paraspinal soft tissues are within normal limits. CT/Spine Cervical without Contras IMPRESSION: No fracture or dislocation in the cervical spine. Mild degenerative changes. Electronically Signed: Jose May, at 23:43 EDT Tel , Service support , CC: DANNIE Retana; Brayan Arita MD Supervisor [employer] Dietary Service: Signed CNOV Observed: 11/10/2017 Status: COMPLETED Source: [place] 3:30 PM [facility] REPOSITORY Office Visit (UROLWS) MANISHA KEITH ([id number]) 1950 F Date Time Provider Department 11/10/17 3:30 PM MARINO SIMS) UROLWS During your visit today, we recorded the following information about you: Pulse Blood pressure Weight Height 84/minute 160/76 74.4 kg 1.588 m HOME [place] 11/10/2017 4:56 PM Signed [facility] CC: ANDquot; Urinary Urgency Follow-upANDquot; HPI: This is a 67 year old female, with a history of Urinary urgency , on Ditropan and doing well She had a U/A today with +ve Leuk ; urine culture today LABS: Creatinine Date Value Ref Range Status 10/11/2017 0.79 0.58 - 0.96 mg/dL Final 07/08/2017 0.74 0.58 - 0.96 mg/dL Final 02/10/2017 0.82 0.58 - 0.96 mg/dL Final 11/19/2016 0.83 0.58 - 0.96 mg/dL Final ALLERGIES: ALLERGIES Allergen Reactions - Jesenia Inhibitors Cough - Nsaids (Non-Steroid* GI Upset - Tape [Adhesive Tape* Other: See Comments Blisters from surgical tape MEDICATIONS: esomeprazole (NEXIUM) 40 mg capsule Take 1 capsule by mouth twice daily before meals. 1/2 hr before meal. fluticasone (FLONASE) 50 mcg/actuation nasal spray Use 1 Blanch in each nostril daily at bedtime. Use as directed. Hydrochlorothiazide 12.5 mg capsule TAKE ONE CAPSULE BY MOUTH ONCE DAILY atorvastatin (LIPITOR) 20 mg tablet Take 1 tablet by mouth daily at bedtime. For cholesterol. insulin glargine (BASAGLAR KWIKPEN) 100 unit/mL (3 mL) inpn Inject 35 Units subcutaneously twice daily. oxybutynin (DITROPAN) 5 mg tablet Take 1 tablet by mouth once daily. COMPOUNDED PRESCRIPTION Insulin needles-1/2 cc for 100 uUse up to 4 a day blood sugar diagnostic (Experts 911UCH ULTRA TEST) test strip 1 Strip three times daily before meals. Dx: E11.319 Insulin: Yes fluorometholone (FML LIQUID FILM) 0.1 % ophthalmic suspension Use 2 Drops in the left eye twice daily. traMADol (ULTRAM) 50 mg tablet Take 50 mg by mouth every 8 hours as needed for Pain. lisinopril (ZESTRIL, PRINIVIL) 20 mg tablet Take 1 tablet by mouth once daily. gabapentin (NEURONTIN) 300 mg capsule Take 1 capsule by mouth three times daily. metFORMIN (GLUCOPHAGE) 1,000 mg tablet Take 1 tablet by mouth daily with breakfast. pantoprazole DR (PROTONIX) 40 mg tablet Take 1 tablet by mouth once daily. insulin lispro (HUMALOG) 100 unit/mL injection Sliding scale:151- 200 give 2 [id number] give 4 [id number] give 6 [id number] give 8 unitsAbove 350, notify PCP mupirocin (BACTROBAN) 2 % ointment Apply 1 application to affected area three times daily. Location: boils losartan (COZAAR) 100 mg tablet Take 1 tablet by mouth once daily. aspirin, enteric coated (ASPIRIN, ENTERIC COATED) 81 mg EC tablet Take 81 mg by mouth once daily. triamcinolone acetonide (KENALOG) 0.1 % cream Apply 1 application to affected area twice daily. methotrexate 2.5 mg tablet Take 20 mg by mouth every Tuesday. insulin needles, DISPOSABLE, (PEN NEEDLE) 31 gauge x 5/16ANDquot; ndle Use one needle per dose. 4 per day. folic acid 1 mg tablet Take 2 tablets by mouth once daily. Dr. Johnson CALCIUM CARBONATE (CALCIUM 600 ORAL) Take by mouth once daily. MULTIVITAMIN W-MINERALS/LUTEIN (CENTRUM SILVER ORAL) Take by mouth once daily. Blood-Glucose Meter (ONE TOUCH ULTRA SYSTEM KIT) Misc monitoring kit 1 Each as needed. HISTORIES: FAMILY Hx: FAMILY HISTORY Problem Relation Age of Onset - Breast Cancer Maternal Aunt - None Mother - None Father PAST MEDICAL HISTORY Diagnosis Date - Allergic rhinitis, cause unspecified - Breast cancer (HCC) age 34-had lump, cancerous cells. no issues since - Diverticulosis of colon (without mention of hemorrhage) - Heme positive stool 2010 - History of cervical cancer regular Paps for life - Hyperlipidemia 2010 - Inflammatory polyarthritis (HCC) Dr. 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) - Type II or unspecified type diabetes mellitus without mention of complication, not stated as uncontrolled - Unspecified essential hypertension Social History Marital status: Spouse name: Years of education: Number of children: 2 Occupational History Occupation Employer Comment [employer] Social History Main Topics Smoking status: Former Smoker Packs/day: 0.75 Years: 30.00 Types: Cigarettes Quit date: 08/15/2000 Smokeless status: Never Used Alcohol use: Yes Comment: rarely Drug use: No Sexual activity: No REVIEW OF SYSTEMS: General:No weight loss, malaise or fevers. Genitourinary: See HPI The remainder of the ROS was negative. PHYSICAL EXAMINATION: Blood pressure 160/76, pulse 84, height 158.8 cm (5' 2.5ANDquot;), weight 74.4 kg (164 lb). General appearance: Well appearing, alert, in no acute distress, well-hydrated, well nourished IMPRESSION ANDamp; PLAN: ANDgt; History of Urinary Urgency and Incontinence ANDgt; Continue Ditropan , escripted to pharmacy ANDgt; check Urine Culture ANDgt; 1 year Appointment w/ B DELFINA Sims [place], PADELFINA Kennedy [place], PAAmandaC Referring Provider: BRAYAN ARITA [[id number]] Allergies As of Date: 11/10/2017 Noted Allergy Reaction JESENIA INHIBITORS 03/27/2014 3 - Cough NSAIDS (NON-STEROIDAL ANTI-INFLAM*05/09/2009 8 - GI Upset TAPE (ADHESIVE TAPE (ROSINS)) 10/26/2016 14 - Other: See Comments Comments: Blisters from surgical tape Date Reviewed: 11/10/2017 Reviewed by: Katie Clemente RN - Fully Assessed Reason for Visit: Post Op [174] Cmt: incontinence Primary Visit Diagnosis:Urge incontinence [N39.41] Order(s):UA DIP, URINE (POC) [6166342] Order #: [id number] UA DIP, URINE (POC) [1205042] Order #: [id number]. #:[id number] URINE CULTURE [SQURCUL] Order #: [id number] oxybutynin (DITROPAN) 5 mg tabletTake 1 tablet by mouth once daily.Disp: 30 tabletRfl: 11 Prescriptions as of 11/10/2017 Sig: OXYBUTYNIN CHLORIDE 5 MG TABL* Take 1 tablet by mouth once d* ESOMEPRAZOLE MAGNESIUM 40 MG * Take 1 capsule by mouth twice* FLUTICASONE 50 MCG/ACTUATION * Use 1 Blanch in each nostril d* HYDROCHLOROTHIAZIDE 12.5 MG C* TAKE ONE CAPSULE BY MOUTH ONC* ATORVASTATIN 20 MG TABLET Take 1 tablet by mouth daily * INSULIN GLARGINE (U-100) 100 * Inject 35 Units subcutaneousl* COMPOUNDED PRESCRIPTION Insulin needles-1/2 cc for 10* BLOOD SUGAR DIAGNOSTIC STRIPS 1 Strip three times daily bef* FLUOROMETHOLONE 0.1 % EYE MARINE* Use 2 Drops in the left eye t* TRAMADOL 50 MG TABLET Take 50 mg by mouth every 8 h* LISINOPRIL 20 MG TABLET Take 1 tablet by mouth once d* GABAPENTIN 300 MG CAPSULE Take 1 capsule by mouth three* METFORMIN 1,000 MG TABLET Take 1 tablet by mouth daily * PANTOPRAZOLE 40 MG TABLET,DEL* Take 1 tablet by mouth once d* INSULIN LISPRO (U-100) 100 UN* Sliding scale: 151-200 giv* MUPIROCIN 2 % TOPICAL OINTMENT Apply 1 application to affect* LOSARTAN 100 MG TABLET Take 1 tablet by mouth once d* ASPIRIN 81 MG TABLET,DELAYED * Take 81 mg by mouth once burt* TRIAMCINOLONE ACETONIDE 0.1 %* Apply 1 application to affect* METHOTREXATE SODIUM 2.5 MG TA* Take 20 mg by mouth every Sun* PEN NEEDLE, DIABETIC 31 GAUGE* Use one needle per dose. 4 pe* FOLIC ACID 1 MG TABLET Take 2 tablets by mouth once * * CALCIUM 600 ORAL Take by mouth once daily. * CENTRUM SILVER ORAL Take by mouth once daily. * BLOOD-GLUCOSE METER KIT 1 Each as needed. Problem List As Of Date 11/10/2017 Noted Resolved BENIGN HYPERTENSION [I10] INVALID FOR*09/01/2007 Hyperlipidemia [E78.5] INVALID FOR* LOC PRIM OSTEOART-PELVIS [M16.10] INVALID FOR*06/04/2006 Allergic rhinitis [J30.9] INVALID FOR* Diabetes (HCC) [E11.9] INVALID FOR*06/27/2015 Unspecified sleep apnea [G47.30] INVALID FOR*12/07/2013 More... Osteoarthritis [M19.90] INVALID FOR* Irritable bowel syndrome [K58.9] INVALID FOR*11/25/2016 Dysuria [R30.0] INVALID FOR*05/25/2016 Unspecified sinusitis (chronic) [J32.9] INVALID FOR*05/25/2016 Other specified disorder of bladder [596.8] INVALID FOR*11/25/2016 ASYMPTOMATIC VARICOSE VEINS [I83.90] INVALID FOR* REFLUX ESOPHAGITIS [K21.0] ESOPHAGITIS, UNSPECIFIED [K20.9] INVALID FOR*07/30/2008 Malignant neoplasm of female breast (HCC) [C50.*INVALID FOR*05/25/2016 IBS (Irritable Bowel Syndrome) [K58.9] Heme positive stool [R19.5] 11/22/2013 Routine general medical examination at a [facility]*INVALID FOR*11/22/2013 HTN (hypertension) [I10] INVALID FOR* Urge incontinence [N39.41] INVALID FOR* Inflammatory polyarthritis (HCC) [M06.4] More... Type 2 diabetes mellitus with diabetic retinopa*INVALID FOR* History of cervical cancer [Z85.41] More... History of breast cancer [Z85.3] INVALID FOR* H/O left mastectomy [Z98.890, Z90.12] INVALID FOR* Prescriptions ordered this encounter Disp Refills Start End OXYBUTYNIN CHLORIDE 5 MG TABLET 30 t* 11 11/10/2017 Route: ORAL Sig: Take 1 tablet by mouth once daily. Medications Discontinued During This Encounter oxybutynin (DITROPAN) 5 mg tablet 30 t* 5 08/11/2017 11/10/2017 Route: ORAL Sig: Take 1 tablet by mouth once daily. Disc: Reason for discontinue is not on file. Disposition: Return in about 1 year (around 11/10/2018). Follow-up and Disposition History Recorded Encounter Status:Closed by MARINO SIMS PA-C on 11/10/17 PROGRESS Observed: 11/10/2017 Status: COMPLETED Source: [place] 3:08 PM [facility] REPOSITORY O ID: [id number] Author: Marino Sims (Pa) Service: (none) Author Type: Physician Meter Tester Type: Progress Notes Filed: 11/10/2017 4:56 PM Note Text: [facility] CC: Urinary Urgency Follow-up HPI: This is a 67 year old female, with a history of Urinary urgency , on Ditropan and doing well She had a U/A today with +ve Leuk ; urine culture today LABS: Creatinine Date Value Ref Range Status 10/11/2017 0.79 0.58 - 0.96 mg/dL Final 07/08/2017 0.74 0.58 - 0.96 mg/dL Final 02/10/2017 0.82 0.58 - 0.96 mg/dL Final 11/19/2016 0.83 0.58 - 0.96 mg/dL Final ALLERGIES: ALLERGIES Allergen Reactions - Jesenia Inhibitors Cough - Nsaids (Non-Steroid* GI Upset - Tape [Adhesive Tape* Other: See Comments Blisters from surgical tape MEDICATIONS: esomeprazole (NEXIUM) 40 mg capsule Take 1 capsule by mouth twice daily before meals. 1/2 hr before meal. fluticasone (FLONASE) 50 mcg/actuation nasal spray Use 1 Blanch in each nostril daily at bedtime. Use as directed. Hydrochlorothiazide 12.5 mg capsule TAKE ONE CAPSULE BY MOUTH ONCE DAILY atorvastatin (LIPITOR) 20 mg tablet Take 1 tablet by mouth daily at bedtime. For cholesterol. insulin glargine (BASAGLAR KWIKPEN) 100 unit/mL (3 mL) inpn Inject 35 Units subcutaneously twice daily. oxybutynin (DITROPAN) 5 mg tablet Take 1 tablet by mouth once daily. COMPOUNDED PRESCRIPTION Insulin needles-1/2 cc for 100 uUse up to 4 a day blood sugar diagnostic (Experts 911UCH ULTRA TEST) test strip 1 Strip three times daily before meals. Dx: E11.319 Insulin: Yes fluorometholone (FML LIQUID FILM) 0.1 % ophthalmic suspension Use 2 Drops in the left eye twice daily. traMADol (ULTRAM) 50 mg tablet Take 50 mg by mouth every 8 hours as needed for Pain. lisinopril (ZESTRIL, PRINIVIL) 20 mg tablet Take 1 tablet by mouth once daily. gabapentin (NEURONTIN) 300 mg capsule Take 1 capsule by mouth three times daily. metFORMIN (GLUCOPHAGE) 1,000 mg tablet Take 1 tablet by mouth daily with breakfast. pantoprazole DR (PROTONIX) 40 mg tablet Take 1 tablet by mouth once daily. insulin lispro (HUMALOG) 100 unit/mL injection Sliding scale:151- 200 give 2 [id number] give 4 [id number] give 6 -536 give 8 unitsAbove 350, notify PCP mupirocin (BACTROBAN) 2 % ointment Apply 1 application to affected area three times daily. Location: boils losartan (COZAAR) 100 mg tablet Take 1 tablet by mouth once daily. aspirin, enteric coated (ASPIRIN, ENTERIC COATED) 81 mg EC tablet Take 81 mg by mouth once daily. triamcinolone acetonide (KENALOG) 0.1 % cream Apply 1 application to affected area twice daily. methotrexate 2.5 mg tablet Take 20 mg by mouth every Tuesday. insulin needles, DISPOSABLE, (PEN NEEDLE) 31 gauge x 5/16 ndle Use one needle per dose. 4 per day. folic acid 1 mg tablet Take 2 tablets by mouth once daily. Dr. Johnson CALCIUM CARBONATE (CALCIUM 600 ORAL) Take by mouth once daily. MULTIVITAMIN W-MINERALS/LUTEIN (CENTRUM SILVER ORAL) Take by mouth once daily. Blood-Glucose Meter (ONE TOUCH ULTRA SYSTEM KIT) Misc monitoring kit 1 Each as needed. HISTORIES: FAMILY Hx: FAMILY HISTORY Problem Relation Age of Onset - Breast Cancer Maternal Aunt - None Mother - None Father PAST MEDICAL HISTORY Diagnosis Date - Allergic rhinitis, cause unspecified - Breast cancer (HCC) age 34-had lump, cancerous cells. no issues since - Diverticulosis of colon (without mention of hemorrhage) - Heme positive stool 2010 - History of cervical cancer regular Paps for life - Hyperlipidemia 2010 - Inflammatory polyarthritis (HCC) Dr. 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 Genitourinary: See HPI The remainder of the ROS was negative. PHYSICAL EXAMINATION: Blood pressure 160/76, pulse 84, height 158.8 cm (5' 2.5), weight 74.4 kg (164 lb). General appearance: Well appearing, alert, in no acute distress, well-hydrated, well nourished IMPRESSION AND PLAN: > History of Urinary Urgency and Incontinence > Continue Ditropan , escripted to pharmacy > check Urine Culture > 1 year Appointment DELFINA Bush MT, PA-C Brandon E. Mooney, MPAS, MT, PA-C [facility] Observed: 11/10/2017 Status: COMPLETED Source: [place] 2:49 PM [facility] REPOSITORY HNO ID: [id number] Author: Mammography Coordinator Service: (none) Author Type: Physician Type: Letter Filed: 11/14/2017 11:33 PM Note Text: November 10, 2017 PID: [id number] Manisha Keith [facility] [place] [address] Dear Bridgette Kirit, We are pleased to inform you that the results of your recent breast imaging exam on 11/10/2017 are normal. Your mammogram demonstrates that you have dense breast tissue, which could hide abnormalities. Dense breast tissue, in and of itself, is a relatively common condition. Therefore, this information is not provided to cause undue concern; rather, it is to raise your awareness and promote discussion with your health care provider regarding the presence of dense breast tissue in addition to other risk factors. Early detection of cancer is very important. We also understand recommendations regarding breast cancer screening are controversial. Please discuss with your primary care provider which strategy is best for you and whether a mammogram is right for you. Your imaging studies and report will be kept on file at [facility] as part of your permanent medical record and are available for your continuing care. Thank you for allowing us to help in meeting your health care needs. Sincerely, Dr. Estrella Interpreting Radiologist [facility] (Normal over 40) [facility] SCREENING Observed: 11/10/2017 Status: F Source: [place] 2:17 PM [facility] REPOSITORY * * *Final Report* * * DATE OF EXAM: Nov 10 2017 2:17PM MICHA [id number] - [facility] SCREENING / PROCEDURE REASON: Encounter for screening mammogram for malignant neoplasm of breast * * * * Physician Interpretation * * * * RESULT: #[id number] - [facility] SCREENING UNILATERAL RIGHT DIGITAL SCREENING MAMMOGRAM WITH CAD: 11/10/2017 HISTORY: Encounter For Screening Mammogram For Malignant Neoplasm Of Breast /patient reports no breast symptoms /priors available for comparison. RESULT: TECHNIQUE: The study was acquired using full field digital technology and interpreted from soft copy. Current study was also evaluated with a Computer Aided Detection (CAD). Comparison is made to exams dated: 07/27/2016 mammogram, 07/09/2015 mammogram, and 04/11/2014 mammogram - [facility]. The tissue of the right breast is heterogeneously dense. This may lower the sensitivity of mammography. The patient is status post mastectomy left breast. No significant masses, calcifications, or other findings are seen in the breast. There has been no significant interval change. IMPRESSION: NEGATIVE There is no mammographic evidence of malignancy.A 1 year screening mammogram is recommended. Beronica sutherland/kinsey:11/10/2017 14:49:13 Grey Roll Man: Jaimee MOCK)(Deidre), [facility] letter sent: Normal over 40 Mammogram BI-RADS: 1 Negative Supervisor Kosher Dietary Service: Kinsey Transcribe Date/Time: Nov 10 2017 2:06P Dictated by: BERONICA ESTRELLA MD This examination was interpreted and the report reviewed and electronically signed by: BERONICA ESTRELLA MD on Nov 10 2017 2:49PM EST [id number] PROGRESS Observed: 11/10/2017 Status: COMPLETED Source: [place] 2:06 PM [facility] REPOSITORY HNO ID: [id number] Author: Marisol Bonds Service: (none) Author Type: (none) Type: Progress Notes Filed: 11/10/2017 2:21 PM Note Text: Radiology Service Progress Note PATIENT NAME: Manisha Keith DATE OF SERVICE: November 10, 2017 TIME: 2:06 PM PATIENT IDENTITY VERIFICATION COMPLETED USING TWO (2) METHODS: Patient confirmed name verbally and Date of . PATIENT GENDER DATA: Female. status: : No status: NO. PATIENT RELEVANT IMPLANT DATA REVIEWED: Not Applicable RADIOLOGY DEPARTMENT: [facility] mamm[facility] PERIPHERAL IV DATA: Not applicable SIGNED BY: Marisol Bonds November 10, 2017 2:06 PM [facility] Observed: 11/10/2017 Status: COMPLETED Source: [place] 12:00 AM [facility] REPOSITORY Letter Text Brayan Arita MD [facility] Manisha Enrique Kirit [address] [address] [facility] #: [id number] 11/10/2017 Dear Ms. Keith, I have received the results of your recent tests. The results of your Mammogram tests were either normal or within the acceptable range. We can discuss this at your next visit. Please do not hesitate to contact me with any questions. Sincerely, Brayan Arita MD [facility] electronically signed to expedite mailing COMPREHENSIVE METABOLIC Collected: 11/03/2017 Status: F Source: [facility] 4:37 PM [facility] REPOSITORY Order Comment: PLEASE ADD MG TO BLOOD FROM 11/03/17 THG4 4 D Is Patient Taking Vitamins or Folic Acid Supplements? N TYPE CODE TESTS RESULT OUT OF RANGE REFERENCE UNITS LAB L501.0100 74-106 mg/dL High GLU 126 Result Comment: Fasting Glucose result greater than or equal to 126 mg/dL suggests DIABETES MELLITUS per A.D.A. criteria. Please note revised GLUCOSE reference range effective 2017. LAB L501.1000 7-18 mg/dL Normal BUN 12 LAB L501.1100 0.55-1.02 mg/dL Normal CREAT,SERUM 0.73 Result Comment: The validity of the calculated GFR AND GFRAA in patients over 70 years has not been determined. Clinical correlation is essential. LAB L501.1110 >60 mL/min Normal EST GFR 85 Result Comment: Non- GFR Calc LAB L501.1115 >60 mL/min Normal EST GFR - AA 102 Result Comment: GFR Calc LAB L501.1300 10-20 RATIO Normal BUN/CRE 16.4 LAB L501.1500 6.4-8.2 g/dL T Normal PROT 7.4 LAB L501.1800 3.2-5.0 g/dL Normal ALB 3.4 LAB L501.1950 2.2-4.2 g/dL Normal GLOB 4.0 LAB L501.2000 0.9-2.4 RATIO Low A/G 0.8 LAB L501.2200 8.5-10.1 mg/dL CA Normal 8.9 LAB L501.4100 15-37 U/L Normal AST 18 LAB L501.4305 45-117 U/L Normal ALK P 55 LAB L501.4405 13-56 U/L Normal ALT 27 Result Comment: Please note revised ALT reference range effective 2017. LAB L501.4600 0.20-1.00 mg/dL Normal T BILI 0.40 LAB L501.5300 136-145 mmol/L Normal NA 140 LAB L501.5600 3.5-5.1 mmol/L Normal K 3.8 LAB L501.5900 98-107 mmol/L Normal CL 104 LAB L501.6100 21.0-32.0 mmol/L Normal CO2 29.0 LAB L501.6200 5-15 Normal GAP 7 Performed By: #### L500.4050, L501.2300, L501.3620, L506.0250, L501.5200 #### [facility] [address] [place], [address] PHOSPHORUS Collected: 11/03/2017 Status: F Source: [facility] 4:37 PM [facility] REPOSITORY Order Comment: PLEASE ADD MG TO BLOOD FROM 11/03/17 THG4 4 D Is Patient Taking Vitamins or Folic Acid Supplements? N TYPE CODE TESTS RESULT OUT OF RANGE REFERENCE UNITS LAB L501.2300 2.5-4.9 mg/dL Normal PHOS 2.6 Performed By: #### L500.4050, L501.2300, L501.3620, L506.0250, L501.5200 #### [facility] [address] [place], [address] CPK TOTAL, CREATINE Collected: 11/03/2017 Status: F Source: [place] [facility] 4:37 PM [facility] REPOSITORY Order Comment: PLEASE ADD MG TO BLOOD FROM 11/03/17 THG4 4 D Is Patient Taking Vitamins or Folic Acid Supplements? N TYPE CODE TESTS RESULT OUT OF RANGE REFERENCE UNITS LAB L501.3620 26-192 U/L Normal CPK TOTAL 85 Performed By: #### L500.4050, L501.2300, L501.3620, L506.0250, L501.5200 #### [facility] [address] [place], [address] FOLATES, (FOLIC ACID) Collected: 11/03/2017 Status: F Source: [place] 4:37 PM [facility] REPOSITORY Order Comment: PLEASE ADD MG TO BLOOD FROM 11/03/17 THG4 4 D Is Patient Taking Vitamins or Folic Acid Supplements? N TYPE CODE TESTS RESULT OUT OF RANGE REFERENCE UNITS LAB L506.0250 3.1-55.4 ng/mL Normal FOLATES 15.60 Performed By: #### L500.4050, L501.2300, L501.3620, L506.0250, L501.5200 #### [facility] [address] [place], [address] MAGNESIUM Collected: 11/03/2017 Status: F Source: [place] 4:37 PM [facility] REPOSITORY Order Comment: PLEASE ADD MG TO BLOOD FROM 11/03/17 THG4 4 D Is Patient Taking Vitamins or Folic Acid Supplements? N TYPE CODE TESTS RESULT OUT OF RANGE REFERENCE UNITS LAB L501.5200 1.6-2.6 mg/dL Normal MG 2.0 Result Comment: Please note revised Magnesium reference range effective 2017. Performed By: #### L500.4050, L501.2300, L501.3620, L506.0250, L501.5200 #### [facility] [address] [place], [address] VITAMIN B12 Collected: 11/03/2017 Status: F Source: [place] 4:37 PM [facility] REPOSITORY TYPE CODE TESTS RESULT OUT OF RANGE REFERENCE UNITS LAB L503.0105 211-911 pg/mL Normal Vitamin B12 576 Performed By: #### L503.0105, L506.1000 #### [facility] [address] [place], [address] VITAMIN D,25 HYDROXY Collected: 11/03/2017 Status: F Source: [place] 4:37 PM [facility] REPOSITORY TYPE CODE TESTS RESULT OUT OF RANGE REFERENCE UNITS LAB L506.1000 29.95-100.01 ng/mL Normal Vitamin D 31.5 25-OH Result Comment: Vitamin D 25(OH) Status Range Deficiency <20 ng/mL (50nmol/L) Insuffciency 20 - 30 ng/mL (50 - 75 nmol/L) Sufficiency 30 - 100 ng/mL (75 - 250 nmol/L) Toxicity >100 ng/mL (>250 nmol/L) Performed By: #### L503.0105, L506.1000 #### [facility] [address] [place], [address] ALBUMIN/CREAT RATIO Collected: 10/11/2017 Status: F Source: [place] 4:44 PM [facility] REPOSITORY TYPE CODE TESTS RESULT OUT OF REFERENCE UNITS RANGE LAB UCRR 20-300 mg/dL 97.7 Creatinine,Ur ine,Ran LAB UALBR 0.0-23.0 mg/L <12.0 Albumin Urine Random LAB UALBCR 0-30 mg/g Not Albumin/Creat calculated Ratio Performed By: #### UACR #### [facility] [address] [place], [place] [address] BASIC METABOLIC PANL Collected: 10/11/2017 Status: F Source: [place] 4:24 PM [facility] REPOSITORY TYPE CODE TESTS RESULT OUT OF REFERENCE UNITS RANGE LAB GLU 74-99 mg/dL Glucose 81 Result Comment: The [place] Diabetes [employer] (ADA) provides guidance for cutoff values for fasting glucose and random glucose. The ADA defines fasting as no caloric intake for at least 8 hours. Fas ting plasma glucose results between 100 to 125 mg/dL indicate increased risk for diabetes (prediabetes). Fasting plasma glucose results greater than or equal to 126 mg/dL meet the criteria for diagnosis of diabetes. In the absence of unequivocal hyperglycemia, results should be confirmed by repeat testing. In a patient with classic symptoms of hyperglycemia or hyperglycemic crisis, random plasma glucose results greater than or equal to 200 mg/dL meet the criteria for diagnosis of diabetes. Reference: Standards of Medical Care in Diabetes 2016, [place] [employer] Association. Diabetes Care. 2016.39(Suppl 1). LAB BUN 7-21 mg/dL BUN 14 LAB CRET 0.58-0.96 mg/dL Creatinine 0.79 LAB NA 136-144 mmol/L Sodium 140 LAB K 3.7-5.1 mmol/L Potassium 4.2 LAB CL 97-105 mmol/L Chloride 100 LAB CO2 22-30 mmol/L CO2 26 LAB AGAP 9-18 mmol/L Anion Gap 14 LAB CA 8.5-10.2 mg/dL Calcium, Total 9.3 LAB GFRAA eGFR- Amer. >60 LAB GFRNAA . eGFR-All Other Races >60 Result Comment: eGFR (Estimated GFR) Units of measure: mL/min/1.73 meters squared eGFR is derived from the reexpressed MDRD Study equation using the following parameters: serum creatinine, age, gender and race. The creatinine assay has been calibrated to be traceable to IDMS. An eGFR <60 mL/min/1.73m2 for >3 months is consistent with chronic kidney disease. Refer to KDOQI guidelines for clinical interpretation. In patients with unstable renal function, e.g. those with acute kidney injury, the eGFR may not accurately reflect actual GFR. Performed By: #### BMP, HBA1C #### [facility] [employer] [address] [place], [place] [address] HEMOGLOBIN A1C Collected: 10/11/2017 Status: F Source: [place] 4:24 PM [facility] REPOSITORY TYPE CODE TESTS RESULT OUT OF REFERENCE UNITS RANGE LAB HGBA1C 4.3-5.6 % High Hemoglobin A1c 7.0 LAB HBA0 mg/dL Est. Average Glucose 154 Result Comment: eAG: (Estimated average glucose) is a calculated value from HgbA1c and is event representative of the average blood glucose level in the last 2-3 month period. Performed By: #### BMP, HBA1C #### [facility] [employer] [address] [place], [place] [address] PROGRESS Observed: 10/11/2017 Status: COMPLETED Source: [place] 4:04 PM [facility] REPOSITORY HNO ID: [id number] Author: Baryan Arita Service: (none) Author Type: Physician Type: Progress Notes Filed: 10/11/2017 4:16 PM Note Text: Patient presents with: Recheck: 6 week follow up HPI: Patient presents today for office visit for follow up. Back to work. Doing well. HYPERTENSION:no chest pain or shortness of breath HLD:no myalgias. DM: sugars are up and down. She has rare hypoglycemic spells and some postprandial spikes. Taking meds regularly. Cant make neuro appt. Discussed seeing someone in town. Memory is improving. Some anxiety at times. Overall doing well. Neck occasionally tight. Feels little shocks at times. Says not enough to work up. Will call if worsens. MEDICATIONS: Current Outpatient Prescriptions: Hydrochlorothiazide 12.5 mg capsule TAKE ONE CAPSULE BY MOUTH ONCE DAILY atorvastatin (LIPITOR) 20 mg tablet Take 1 tablet by mouth daily at bedtime. For cholesterol. insulin glargine (BASAGLAR KWIKPEN) 100 unit/mL (3 mL) inpn Inject 35 Units subcutaneously twice daily. oxybutynin (DITROPAN) 5 mg tablet Take 1 tablet by mouth once daily. COMPOUNDED PRESCRIPTION Insulin needles-1/2 cc for 100 uUse up to 4 a day blood sugar diagnostic (ONETOUCH ULTRA TEST) test strip 1 Strip three times daily before meals. Dx: E11.319 Insulin: Yes fluorometholone (FML LIQUID FILM) 0.1 % ophthalmic suspension Use 2 Drops in the left eye twice daily. traMADol (ULTRAM) 50 mg tablet Take 50 mg by mouth every 8 hours as needed for Pain. lisinopril (ZESTRIL, PRINIVIL) 20 mg tablet Take 1 tablet by mouth once daily. gabapentin (NEURONTIN) 300 mg capsule Take 1 capsule by mouth three times daily. metFORMIN (GLUCOPHAGE) 1,000 mg tablet Take 1 tablet by mouth daily with breakfast. pantoprazole DR (PROTONIX) 40 mg tablet Take 1 tablet by mouth once daily. insulin lispro (HUMALOG) 100 unit/mL injection Sliding scale:151- 200 give 2 [id number] give 4 -763 give 6 -637 give 8 unitsAbove 350, notify PCP mupirocin (BACTROBAN) 2 % ointment Apply 1 application to affected area three times daily. Location: boils losartan (COZAAR) 100 mg tablet Take 1 tablet by mouth once daily. aspirin, enteric coated (ASPIRIN, ENTERIC COATED) 81 mg EC tablet Take 81 mg by mouth once daily. triamcinolone acetonide (KENALOG) 0.1 % cream Apply 1 application to affected area twice daily. fluticasone (FLONASE) 50 mcg/actuation nasal spray Use 1 Blanch in each nostril daily at bedtime. Use as directed. methotrexate 2.5 mg tablet Take 20 mg by mouth every Tuesday. insulin needles, DISPOSABLE, (PEN NEEDLE) 31 gauge x 5/16 ndle Use one needle per dose. 4 per day. folic acid 1 mg tablet Take 2 tablets by mouth once daily. Dr. Johnson CALCIUM CARBONATE (CALCIUM 600 ORAL) Take by mouth once daily. MULTIVITAMIN W-MINERALS/LUTEIN (CENTRUM SILVER ORAL) Take by mouth once daily. Blood-Glucose Meter (ONE TOUCH ULTRA SYSTEM KIT) Misc monitoring kit 1 Each as needed. No current facility-administered medications for this visit. ALLERGIES: ALLERGIES Allergen Reactions - Jesenia Inhibitors Cough - Nsaids (Non-Steroid* GI Upset - Tape [Adhesive Tape* Other: See Comments Blisters from surgical tape PAST MEDICAL HISTORY Diagnosis Date - Allergic rhinitis, cause unspecified - Breast cancer (HCC) age 34-had lump, cancerous cells. no issues since - Diverticulosis of colon (without mention of hemorrhage) - Heme positive stool 2010 - History of cervical cancer regular Paps for life - Hyperlipidemia 2010 - Inflammatory polyarthritis (HCC) Dr. 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) - Type II or unspecified type diabetes mellitus without mention of complication, not stated as uncontrolled - Unspecified essential hypertension PAST SURGICAL HISTORY Procedure Laterality Date - APPENDECTOMY - COLONOSCOP W/ OR W/O BRSH SPEC 06/26/09 - EGD 2010 - ERCP W/O BRUSH/WASH SPECIMEN 07/23/2008 Cholangiopancreatography (ERCP) - MASTECTOMY age 34 Mastectomy - simple - REMV 2ND CATARACT,CORN-SCLER SECTN Cataract removal BILATERAL - TOTAL ABDOM HYSTERECTOMY age 27 Hysterectomy, MARQUES cervical cancer FAMILY HISTORY Problem Relation Age of Onset - Breast Cancer Maternal Aunt - None Mother - None Father Social History Marital status: Spouse name: Years of education: Number of children: 2 Occupational History Occupation Employer Comment [employer] Social History Main Topics Smoking status: Former Smoker Packs/day: 0.75 Years: 30.00 Types: Cigarettes Quit date: 08/15/2000 Smokeless status: Never Used Alcohol use: Yes Comment: rarely Drug use: No Sexual activity: No Reviewed current medications, allergies, past medical history, surgical history, family history and social history today. REVIEW OF SYSTEMS All other reviewed and negative other than HPI. HEALTH MAINTENANCE: Reviewed health maintenance issues today and recommended the following in detail. MAMMOGRAM due on 07/27/2017 URINE ALBUMIN CREATININE RATIO due on 08/23/2017 VITALS: BP 130/66 Pulse 78 Resp 16 Wt 73.9 kg (163 lb) BMI 29.34 kg/m2 Last 4 Encounter Wt Readings: Date: Wt: 10/11/2017 73.9 kg (163 lb) 08/29/2017 74.4 kg (164 lb) 08/11/2017 73.5 kg (162 lb) 08/09/2017 73.9 kg (163 lb) PHYSICAL EXAMINATION: General appearance: Well appearing, alert, in no acute distress, well-hydrated, well nourished. Skin: Skin color, texture, turgor normal, no suspicious rashes or lesions Head: Normocephalic, no masses, lesions, tenderness or abnormalities Lungs: Lungs clear to auscultation. No wheezing, rhonchi, rales Heart: RRR without murmur, gallop, or rubs. No ectopy Abdomen: Normal abdominal exam, Abdomen soft, non-tender. Bowel sounds normal. No masses, organomegaly Extremities: No deformities, edema, skin discoloration, clubbing or cyanosis. Good capillary refill. ASSESSMENT/PLAN: 1. 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 Get labs. 2. History of breast cancer - ICD9: V10.3, ICD10: Z85.3 - set up with mammo 3. Essential hypertension - ICD9: 401.9, ICD10: I10 - good control - Continue current medication(s) - Goal of BP <140/90 4. Mixed hyperlipidemia - ICD9: 272.2, ICD10: E78.2 - good control - Continue current medication. 5. Encephalopathy - ICD9: 348.30, ICD10: G93.40 Appears resolved. Follow up with neuro. Brayan Arita MD CBC W/DIFF, AUTOMATED Collected: 09/30/2017 Status: F Source: [place] 3:24 PM [facility] REPOSITORY TYPE CODE TESTS RESULT OUT OF RANGE REFERENCE UNITS LAB L100.1000 4.4-11.0 K/mm3 Normal WBC 5.3 LAB L100.1200 4.2-5.4 M/mm3 Low RBC 3.51 LAB L100.1300 12.0-15.0 g/dl Low HGB 11.1 LAB L100.1400 37-47 % Low HCT 33.6 LAB L100.1500 81-99 fL Normal MCV 95.7 LAB L100.1600 27.0-32.0 pg Normal MCH 31.6 LAB L100.1700 32-36 g/gl Normal MCHC 33.0 LAB L100.1810 11.6-14.6 % Normal RDW CV 13.3 LAB L100.1820 35.1-43.9 fl High RDW SD 44.7 LAB L100.1900 150-450 K/mm3 Normal PLT 280 LAB L100.2000 6.2-12.0 fl Normal MPV 9.7 LAB L100.2100 47-70 % Normal NEUT% 53.4 LAB L100.2200 19-41 % Normal LY% 30.5 LAB L100.2300 0-10 % High MONO% 10.7 LAB L100.2400 0-5 % Normal EO% 3.8 LAB L100.2500 0-1 % Normal BASO% 1.0 LAB L100.2550 0.0-0.9 % Normal IM GRAN % 0.600 Result Comment: IG% - Immature Granulocytes (promyelocytes, myelocytes and metamyelocytes) > 1% indicates that a LEFT SHIFT is Present. LAB L100.2620 2.0-7.7 X10 3/uL Normal Absolute Neut 2.8 LAB L100.2720 0.83-4.51 X10 3/ul Normal Absolute Lymph 1.60 Performed By: #### L100.0100 #### [facility] [address] [place], [address] COMPREHENSIVE METABOLIC Collected: 09/30/2017 Status: F Source: [facility] 3:24 PM [facility] REPOSITORY TYPE CODE TESTS RESULT OUT OF RANGE REFERENCE UNITS LAB L501.0100 74-106 mg/dL Normal GLU 104 Result Comment: Fasting Glucose result from 100 to 125 mg/dL suggests IMPAIRED HOMEOSTASIS per A.D.A. criteria. Please note revised GLUCOSE reference range effective 2017. LAB L501.1000 7-18 mg/dL High BUN 20 LAB L501.1100 0.55-1.02 mg/dL Normal CREAT,SERUM 0.82 Result Comment: The validity of the calculated GFR AND GFRAA in patients over 70 years has not been determined. Clinical correlation is essential. LAB L501.1110 >60 mL/min Normal EST GFR 75 Result Comment: Non- GFR Calc LAB L501.1115 >60 mL/min Normal EST GFR - AA 90 Result Comment: GFR Calc LAB L501.1300 10-20 RATIO High BUN/CRE 24.5 LAB L501.1500 6.4-8.2 g/dL T Normal PROT 7.1 LAB L501.1800 3.2-5.0 g/dL Normal ALB 3.3 LAB L501.1950 2.2-4.2 g/dL Normal GLOB 3.8 LAB L501.2000 0.9-2.4 RATIO Normal A/G 0.9 LAB L501.2200 8.5-10.1 mg/dL CA Normal 8.7 LAB L501.4100 15-37 U/L Normal AST 16 LAB L501.4305 45-117 U/L Normal ALK P 51 LAB L501.4405 13-56 U/L Normal ALT 23 Result Comment: Please note revised ALT reference range effective 2017. LAB L501.4600 0.20-1.00 mg/dL Normal T BILI 0.30 LAB L501.5300 136-145 mmol/L Normal NA 139 LAB L501.5600 3.5-5.1 mmol/L Normal K 4.0 LAB L501.5900 98-107 mmol/L Normal CL 103 LAB L501.6100 21.0-32.0 mmol/L Normal CO2 28.0 LAB L501.6200 5-15 Normal GAP 8 Performed By: #### L500.4050 #### [facility] [address] [place], [address] ALLERGIES ALLERGIES DATE TYPE / CODE NAME / CODE REACTION SEVERITY SOURCE 06/30/2017 Drug NSAIDS Other Unknown [place] Allergy/416 (Non-Steroidal Community 014533([facility] Anti-Inflamma/F00 Hospital ED CT) 7870936(RXNORM) Repository 10/26/2016 Chemical/42 ADHESIVE TAPE OTHER: SEE C [facility] 7409687(SNO ([place]) [place] [facility]) Repository 03/27/2014 Drug JESENIA INHIBITORS COUGH [facility] Class/98174 [place] 1003(SNOMED Repository CT) 05/09/2009 Drug NSAIDS GI UPSET [facility] Class/63610 (NON-STEROIDAL [facility] [place] 1003(SNOMED ANTI-INFLAMMATORY Repository CT) DRUG) ENCOUNTERS ENCOUNTERS ADMIT/DISCHARGE ACCOUNT ADMITTING ENCOUNTER LOCATION SOURCE NUMBER CLASS 09/06/2018 [id number] Ambulatory [facility] ing:MTLAB Repository 08/31/2018/01/17 [id number] [facility] [place] Repository 08/31/2018/09/01/19 [id number] Ambulatory [place] [facility] [place] Repository 08/29/2018/08/29/19 [id number] [facility] [place] Repository 08/02/2018/08/30/19 [id number] [facility] [place] Repository 08/02/2018/08/04/20 [id number] Ambulatory [place] [facility] [place] Repository 07/27/2018/07/28/20 [id number] Ambulatory [place] [facility] [place] Repository 07/11/2018/07/11/20 [id number] Ambulatory [place] [facility] [place] Repository 07/10/2018/07/10/20 [id number] Ambulatory [place] [facility] [place] Repository 06/19/2018/07/20/20 [id number] Ambulatory [place] [facility] [place] Repository 06/13/2018/06/13/20 [id number] Ambulatory [place] [facility] [place] Repository 06/06/2018 [id number] [facility] Rep[facility] 05/29/2018/05/29/20 [id number] Ambulatory [place] [facility] [place] Repository 05/05/2018/05/05/20 [id number] Ambulatory [place] [facility] [place] Repository 05/05/2018/05/08/20 [id number] Ambulatory [place] [facility] [place] Repository 05/05/2018/05/05/20 [id number] Ambulatory [place] [facility] [place] Repository 04/27/2018/04/28/20 [id number] Ambulatory [place] [facility] [place] Repository 04/20/2018/04/20/20 [id number] Ambulatory [place] [facility] [place] Repository 04/20/2018/04/21/20 [id number] Ambulatory [place] [facility] [place] Repository 04/19/2018/04/19/20 [id number] Ambulatory [place] 18 [facility] [place] Repository 03/14/2018 [id number] [facility] ing:MTLAB Repository 03/13/2018 [id number] [facility] Rep[facility] 03/01/2018 [id number] Ambulatory [facility] ing:PSN Repository 02/16/2018/02/18/20 [id number] Ambulatory [address] Repository 02/01/2018 [id number] Ambulatory [facility] ing:PSN Repository 01/17/2018/01/18/20 [id number] Ambulatory [address] Repository 01/10/2018/06/28/20 [id number] Ambulatory [address] Repository 01/10/2018/01/11/20 [id number] Ambulatory [address] Repository 12/22/2017 [id number] Ambulatory [facility] ing:MTLAB Repository 11/14/2017 [id number] [facility] ing:CT Repository 11/10/2017/01/13/20 [id number] Ambulatory [address] Repository 11/10/2017/11/11/19 [id number] Ambulatory [address] Repository 11/03/2017 [id number] [facility] ing:LAB Repository 10/11/[id number] [facility] Repository 10/11/2017/10/15/19 [id number] Ambulatory [address] Repository 09/30/2017 [id number] [facility] ing:MTLAB Repository PAYERS PAYERS ENCOUNTER GUARANTOR PAYER SUBSCRIBER SOURCE 09/06/2018 THOMAS A Primary MANISHA A [place] [id number] [place] Insurance:MEDICAL [place] [facility] [id number] [address]Wfq: 330) Number: Repository [phone] [place] [id number] Date:1876[place] [id number]: 09/06/2018 Secondary MANISHA A Pau Insurance:MEDICARE ROBERTSDOB: [facility] PART A [facility] [id number] Hospital Number: Repository [id number] Date:2018-09-06 09/06/2018 Tertiary NOT GIVENUNK [place] Insurance:SELF PAY [facility] Number: Effective Repository Date:2018-09-06 06/06/2018 THOMAS A Primary MANISHA A [place] [id number] [place] Insurance:MEDICAL ROBERTSDOB: [facility] [id number] Hospital [address]Vbx: (330) Number: Repository [phone] () [id number] Date:1369-20-73WR[place] [id number]: 06/06/2018 Secondary MANISHA A [place] Insurance:MEDICARE ROBERTSDOB: [facility] PART A [facility] [id number] Hospital Number: Repository [id number] Date:2018-06-06 06/06/2018 Tertiary NOT GIVENUNK [place] Insurance:SELF PAY [facility] Number: Effective Repository Date:2018-06-06 03/14/2018 THOMAS A Primary MANISHA A P[place] [id number] [place] Insurance:MEDICAL ROBERTSDOB[place] [facility] [id number] Hospital [address]Ipk: ([phone]) Number: Repository [phone] () [id number] Date:1510-64-59[place] [id number]: 03/14/2018 Secondary MANISHA A [place] Insurance:MEDICARE ROBERTSDOB: [facility] PART A [facility] [id number] Hospital Number: Repository [id number] Date:2018-03-14 03/14/2018 Tertiary NOT GIVENUNK [place] Insurance:SELF PAY [facility] Number: Effective Repository Date:2018-03-14 03/13/2018 THOMAS A Primary MANISHA A [place] [id number] [place] Insurance:MEDICAL ROBERTSDOB: [facility] [id number] Hospital [address]1914Ogc: (330) Number: Repository [phone] () [id number] Date:4631-46-56Y[address] [address]PF: 03/13/2018 Secondary MANISHA A [place] Insurance:MEDICARE ROBERTSDOB: Community PART A [facility] [id number] Hospital Number: Repository [id number] Date:2018-03-13 03/13/2018 Tertiary NOT GIVENUNK [place] Insurance:SELF PAY [facility] Number: Effective Repository Date:2018-03-13 03/01/2018 THOMAS A Primary MANISHA A [place] [id number] [place] Insurance:MEDICAL ROBERTSDOB: [facility] [id number] Hospital [address]Swp: (318) Number: Repository [phone] () [id number] Date:4947-42-62UF [address] [place] [address]JX: 03/01/2018 Secondary MANISHA A [place] Insurance:MEDICARE ROBERTSDOB: Community PART A [facility] [id number] Hospital Number: Repository [id number] Date:2017-11-07 03/01/2018 Tertiary NOT GIVENUNK [place] Insurance:SELF PAY [facility] Number: Effective Repository Date:2017-11-07 02/01/2018 THOMAS A Primary MANISHA A [place] [id number] [place] Insurance:MEDICAL ROBERTSDOB: [facility] [id number] Hospital [address]Cip: (330) Number: Repository [phone] () [id number] Date:1533-93-47XQ [address] [place] [id number]: 02/01/2018 Secondary MANISHA A [place] Insurance:MEDICARE ROBERTSDOB: Community PART A [facility] [id number] Hospital Number: Repository [id number] Date:2017-11-07 02/01/2018 Tertiary MANISHA A [place] Insurance:[facility] ROBERTSDOB: [facility] Number: [id number] Hospital [id number] Repository Date:2017-11-07 02/01/2018 Tertiary NOT GIVENUNK [place] Insurance:SELF PAY [facility] Number: Effective Repository Date:2017-11-07 12/22/2017 THOMAS A Primary MANISHA A [place] [id number] [place] Insurance:MEDICAL ROBERTSDOB: [facility] [id number] Hospital [address]Jqf: (330) Number: Repository [phone] () [id number] Date:0745-23-68AZ [place] [id number]: 12/22/2017 Secondary MANISHA A [place] Insurance:MEDICARE ROBERTSDOB: Community PART A [facility] [id number] Hospital Number: Repository [id number] Date:2017-12-22 12/22/2017 Tertiary NOT GIVENUNK [place] Insurance:SELF PAY [facility] Number: Effective Repository Date:2017-12-22 11/14/2017 THOMAS A Primary MANISHA A [place] [id number] [place] Insurance:MEDICAL ROBERTSDOB: [facility] [id number] Hospital [address]Vgz: (330) Number: Repository [phone] () [id number] Date:7069-21-28PL [place] [address]WP: 11/14/2017 Secondary MANISHA A [place] Insurance:MEDICARE ROBERTSDOB: Community PART A [facility] [id number] Hospital Number: Repository [id number] Date:2017-11-07 11/14/2017 Tertiary NOT GIVENUNK [place] Insurance:SELF PAY [facility] Number: Effective Repository Date:2017-11-07 11/03/2017 THOMAS A Primary MANISHA A [place] [id number] [place] Insurance:MEDICAL ROBERTSDOB: [facility] [id number] Hospital [address]Hmf: (330) Number: Repository [phone] () [id number] Date:[id number] [address]CV: 11/03/2017 Secondary MANISHA A [place] Insurance:MEDICARE ROBERTSDOB: Community PART A [facility] [id number] Hospital Number: Repository [id number] Date:2017-11-03 11/03/2017 Tertiary NOT GIVENUNK [place] Insurance:SELF PAY [facility] Number: Effective Repository Date:2017-11-03 09/30/2017 THOMAS A Primary MANISHA A [place] [id number] [place] Insurance:MEDICAL DEFORESTDOB: [facility] [id number] Hospital [address]Ila: (330) Number: Repository [phone] HP [id number] Date:7322-24-70[address], [place] [address]UV: 09/30/2017 Secondary NOT GIVENUNK [place] Insurance:SELF PAY [facility] Number: Effective Repository Date:2017-09-30
== END ==
PROVIDERS: Family Provider Family Medicine; PCP Family Medicine; Referring Provider Internal Medicine Rheumatology; Visit Provider Internal Medicine Rheumatology
DX: M06.4 Inflammatory polyarthropathy (principal); M18.0 Bilateral primary osteoarthritis of first carpometacarpal joints; G56.01 Carpal tunnel syndrome, right upper limb; G56.02 Carpal tunnel syndrome, left upper limb; Z79.899 Other long term (current) drug therapy
CPT/HCPCS: 36415; 80053; 85025

== ENCOUNTER → 2018-12-04 16:20 | Outpatient (CLI) | payer OTHER, MEDICARE, SELFPAY ==
[2018-12-04 17:52] LABS: ALB/GLOB Ratio 0.8 RATIO (0.9-2.4); AST(SGOT) 25 U/L (15-37); Alanine Aminotransfer ALT/SGPT 33 U/L (13-56); Albumin, Serum 3.3 g/dL (3.2-5.0); Alkaline Phosphatase 54 U/L (45-117); Anion Gap 5 (5-15); BUN 15 mg/dL (7-18); BUN/Creat Ratio 17.4 RATIO (10-20); Calcium,Total 8.6 mg/dL (8.5-10.1); Chloride 105 mmol/L (98-107); Creatinine, Serum 0.86 mg/dL (0.55-1.02); EST Glomerular Filtration Rate 70 mL/min (>60); Est Glom Filt Rate - Afr Amer 85 mL/min (>60); Globulin 3.9 g/dL (2.2-4.2); Glucose 118 mg/dL (74-106); Protein, Total 7.2 g/dL (6.4-8.2); Sodium Level 140 mmol/L (136-145)
[2018-12-04 18:00] LABS: Absolute Lymphocyte Count 1.67 X10^3/ul (0.83-4.51); Absolute Neutrophil Count 3.4 X10^3/uL (2.0-7.7); Basophil# 0.03 X10^3/uL; Basophil% 0.5 % (0-1); Eosinophil# 0.24 X10^3/uL; Eosinophils% 4.2 % (0-5); Hematocrit 35.1 % (37-47); Hemoglobin 11.4 g/dl (12.0-15.0); Lymphocyte # 1.67 X10^3/ul (4.0); Lymphocyte % 29.2 % (19-41); Mean Corp Hgb Conc 32.5 g/gl (32-36); Mean Corpuscular Volume 92.4 fL (81-99); Mean Platelet Vol. 9.5 fl (6.2-12.0); Monocyte# 0.33 X10^3/uL; Monocyte% 5.8 % (0-10); Neutrophil # 3.42 X10^3/uL (2.7-7.7); Neutrophil % 59.9 % (47-70); Platelet Count 258 K/mm3 (150-450); RBC Distribution Width CV 14.2 % (11.6-14.6); RBC Distribution Width SD 46.6 fl (35.1-43.9); White Blood Count 5.7 K/mm3 (4.4-11.0)
[2018-12-04 18:01] LABS: POSITIVE COUNT NO; POSITIVE DIFFERENTIAL NO; POSITIVE MORPHOLOGY NO
== END ==
PROVIDERS: Family Provider Family Medicine; PCP Family Medicine; Referring Provider Internal Medicine Rheumatology; Visit Provider Internal Medicine Rheumatology
DX: M06.4 Inflammatory polyarthropathy (principal); M18.0 Bilateral primary osteoarthritis of first carpometacarpal joints; G56.03 Carpal tunnel syndrome, bilateral upper limbs; Z79.899 Other long term (current) drug therapy
CPT/HCPCS: 36415; 80053; 85025

== ENCOUNTER → 2019-02-28 11:12 | Outpatient (CLI) | payer OTHER, MEDICARE, SELFPAY ==
[2019-02-28 14:14] LABS: Absolute Lymphocyte Count 0.62 X10^3/uL (0.83-4.51); Absolute Neutrophil Count 5.1 X10^3/uL (2.0-7.7); Basophil# 0.04 X10^3/uL; Basophil% 0.7 % (0-1); Eosinophil# 0.02 X10^3/uL; Eosinophils% 0.3 % (0-5); Hematocrit 36.1 % (37-47); Hemoglobin 11.7 g/dL (12.0-15.0); Lymphocyte # 0.62 X10^3/ul (4.0); Lymphocyte % 10.4 % (19-41); Mean Corp Hgb Conc 32.4 g/dL (32-36); Mean Corpuscular Hgb 31.1 pg (27.0-32.0); Monocyte# 0.18 X10^3/uL; NRBC Flagged by Analyzer 0 % (0-5); Neutrophil # 5.06 X10^3/uL (2.7-7.7); Neutrophil % 84.6 % (47-70); Platelet Count 262 K/mm3 (150-450); RBC Distribution Width CV 13.6 % (11.6-14.6); RBC Distribution Width SD 47.9 fl (35.1-43.9); Red Blood Count 3.76 M/mm3 (4.2-5.4)
[2019-02-28 14:47] LABS: ALB/GLOB Ratio 0.8 RATIO (0.9-2.4); AST(SGOT) 16 U/L (15-37); Alanine Aminotransfer ALT/SGPT 24 U/L (13-56); Albumin, Serum 3.2 g/dL (3.2-5.0); Alkaline Phosphatase 69 U/L (45-117); Anion Gap 10 (5-15); BUN 16 mg/dL (7-18); BUN/Creat Ratio 14.2 RATIO (10-20); Calcium,Total 8.8 mg/dL (8.5-10.1); Chloride 102 mmol/L (98-107); Creatinine, Serum 1.13 mg/dL (0.55-1.02); EST Glomerular Filtration Rate 51 mL/min (>60); Est Glom Filt Rate - Afr Amer 62 mL/min (>60); Globulin 4.2 g/dL (2.2-4.2); Glucose 454 mg/dL (74-106); Potassium 4.8 mmol/L (3.5-5.1); Protein, Total 7.4 g/dL (6.4-8.2); Sodium Level 136 mmol/L (136-145)
== END ==
PROVIDERS: Family Provider Family Medicine; PCP Family Medicine; Referring Provider Internal Medicine Rheumatology; Visit Provider Internal Medicine Rheumatology
DX: M06.4 Inflammatory polyarthropathy (principal); M18.0 Bilateral primary osteoarthritis of first carpometacarpal joints; G56.03 Carpal tunnel syndrome, bilateral upper limbs; Z79.899 Other long term (current) drug therapy
CPT/HCPCS: 36415; 80053; 85025

== ENCOUNTER → 2019-05-28 13:12 | Outpatient (CLI) | payer OTHER, MEDICARE, SELFPAY ==
[2019-05-28 15:40] LABS: Absolute Lymphocyte Count 2.17 X10^3/uL (0.83-4.51); Absolute Neutrophil Count 5.2 X10^3/uL (2.0-7.7); Basophil# 0.06 X10^3/uL; Basophil% 0.7 % (0-1); Eosinophil# 0.23 X10^3/uL; Eosinophils% 2.8 % (0-5); Hematocrit 38.7 % (37-47); Hemoglobin 12.5 g/dL (12.0-15.0); Lymphocyte # 2.17 X10^3/ul (4.0); Lymphocyte % 26.1 % (19-41); Mean Corp Hgb Conc 32.3 g/dL (32-36); Mean Corpuscular Hgb 31.6 pg (27.0-32.0); Mean Platelet Vol. 9.7 fl (6.2-12.0); Monocyte# 0.63 X10^3/uL; Monocyte% 7.6 % (0-10); NRBC Flagged by Analyzer 0 % (0-5); Neutrophil # 5.16 X10^3/uL (2.7-7.7); Neutrophil % 62.2 % (47-70); Platelet Count 261 K/mm3 (150-450); RBC Distribution Width CV 14.1 % (11.6-14.6); RBC Distribution Width SD 50.3 fl (35.1-43.9); Red Blood Count 3.95 M/mm3 (4.2-5.4); White Blood Count 8.3 K/mm3 (4.4-11.0)
[2019-05-28 16:06] LABS: ALB/GLOB Ratio 0.8 RATIO (0.9-2.4); AST(SGOT) 16 U/L (15-37); Alanine Aminotransfer ALT/SGPT 25 U/L (13-56); Albumin, Serum 3.3 g/dL (3.2-5.0); Alkaline Phosphatase 61 U/L (45-117); Anion Gap 6 (5-15); BUN 15 mg/dL (7-18); BUN/Creat Ratio 15.4 RATIO (10-20); Calcium,Total 9.2 mg/dL (8.5-10.1); Chloride 105 mmol/L (98-107); Creatinine, Serum 0.98 mg/dL (0.55-1.02); EST Glomerular Filtration Rate 60 mL/min (>60); Est Glom Filt Rate - Afr Amer 73 mL/min (>60); Glucose 149 mg/dL (74-106); Protein, Total 7.3 g/dL (6.4-8.2); Sodium Level 140 mmol/L (136-145)
== END ==
PROVIDERS: Family Provider Family Medicine; PCP Family Medicine; Referring Provider Internal Medicine Rheumatology; Visit Provider Internal Medicine Rheumatology
DX: M06.4 Inflammatory polyarthropathy (principal); M18.0 Bilateral primary osteoarthritis of first carpometacarpal joints; I10 Essential (primary) hypertension; E11.319 Type 2 diabetes mellitus with unspecified diabetic retinopathy without macular edema; E78.5 Hyperlipidemia, unspecified; G56.03 Carpal tunnel syndrome, bilateral upper limbs; K21.0 Gastro-esophageal reflux disease with esophagitis; Z79.899 Other long term (current) drug therapy; Z85.3 Personal history of malignant neoplasm of breast; Z85.41 Personal history of malignant neoplasm of cervix uteri
CPT/HCPCS: 36415; 80053; 85025

== ENCOUNTER → 2019-08-29 10:53 | Outpatient (CLI) | payer OTHER, MEDICARE, SELFPAY ==
[2019-08-29 12:09] LABS: Absolute Lymphocyte Count 0.81 X10^3/uL (0.83-4.51); Absolute Neutrophil Count 5.9 X10^3/uL (2.0-7.7); Basophil# 0.04 X10^3/uL; Basophil% 0.6 % (0-1); Eosinophil# 0.04 X10^3/uL; Eosinophils% 0.6 % (0-5); Hemoglobin 12.3 g/dL (12.0-15.0); Lymphocyte # 0.81 X10^3/ul (4.0); Lymphocyte % 11.5 % (19-41); Mean Corp Hgb Conc 32.4 g/dL (32-36); Mean Corpuscular Hgb 31.7 pg (27.0-32.0); Mean Corpuscular Volume 97.9 fL (81-99); Mean Platelet Vol. 10.8 fl (6.2-12.0); Monocyte% 2.8 % (0-10); NRBC Flagged by Analyzer 0 % (0-5); Neutrophil # 5.92 X10^3/uL (2.7-7.7); Neutrophil % 84.1 % (47-70); POSITIVE COUNT YES; Platelet Count 238 K/mm3 (150-450); RBC Distribution Width CV 13.3 % (11.6-14.6); RBC Distribution Width SD 46.5 fl (35.1-43.9); Red Blood Count 3.88 M/mm3 (4.2-5.4)
[2019-08-29 12:20] LABS: ALB/GLOB Ratio 0.8 RATIO (0.9-2.4); AST(SGOT) 15 U/L (15-37); Alanine Aminotransfer ALT/SGPT 27 U/L (13-56); Albumin, Serum 3.2 g/dL (3.2-5.0); Alkaline Phosphatase 50 U/L (45-117); Anion Gap 4 (5-15); BUN 15 mg/dL (7-18); BUN/Creat Ratio 15.6 RATIO (10-20); Chloride 103 mmol/L (98-107); Creatinine, Serum 0.96 mg/dL (0.55-1.02); EST Glomerular Filtration Rate 62 mL/min (>60); Est Glom Filt Rate - Afr Amer 74 mL/min (>60); Globulin 4.2 g/dL (2.2-4.2); Glucose 178 mg/dL (74-106); Potassium 4.6 mmol/L (3.5-5.1); Protein, Total 7.4 g/dL (6.4-8.2); Sodium Level 138 mmol/L (136-145)
[2019-08-29 12:25] LABS: Differential Indicated SCAN CRITERIA MET
[2019-08-29 12:41] LABS: Platelet Morphology CLUMPED
[2019-08-29 12:42] LABS: Red Cell Morphology NORM C+C NORMAL (NORM C&C)
[2019-08-29 12:43] LABS: Platelet Estimate ADEQUATE (ADEQ)
== END ==
PROVIDERS: Family Provider Family Medicine; PCP Family Medicine; Referring Provider Internal Medicine Rheumatology; Visit Provider Internal Medicine Rheumatology
DX: M06.4 Inflammatory polyarthropathy (principal); M18.0 Bilateral primary osteoarthritis of first carpometacarpal joints; G56.03 Carpal tunnel syndrome, bilateral upper limbs; Z79.899 Other long term (current) drug therapy
CPT/HCPCS: 36415; 80053; 85025

== ENCOUNTER → 2019-10-17 15:51 | Outpatient (CLI) | payer OTHER, MEDICARE, SELFPAY | PROVIDERS: PCP Family Medicine; Referring Provider Psychiatry & Neurology Psychiatry; Visit Provider Psychiatry & Neurology Psychiatry | DX: G47.33 Obstructive sleep apnea (adult) (pediatric) (principal); J01.91 Acute recurrent sinusitis, unspecified | CPT/HCPCS: 95810 ==

== ENCOUNTER → 2019-11-14 14:29 | Outpatient (CLI) | payer OTHER, MEDICARE, SELFPAY ==
[2019-11-14 17:49] LABS: Absolute Lymphocyte Count 1.83 X10^3/uL (0.83-4.51); Basophil# 0.05 X10^3/uL; Basophil% 0.8 % (0-1); Eosinophil# 0.22 X10^3/uL; Eosinophils% 3.4 % (0-5); Hematocrit 35.2 % (37-47); Hemoglobin 11.4 g/dL (12.0-15.0); Lymphocyte # 1.83 X10^3/ul (4.0); Lymphocyte % 27.9 % (19-41); Mean Corp Hgb Conc 32.4 g/dL (32-36); Mean Corpuscular Hgb 31.6 pg (27.0-32.0); Mean Corpuscular Volume 97.5 fL (81-99); Mean Platelet Vol. 9.4 fl (6.2-12.0); Monocyte% 6.1 % (0-10); NRBC Flagged by Analyzer 0 % (0-5); Neutrophil # 4.04 X10^3/uL (2.7-7.7); Neutrophil % 61.5 % (47-70); Platelet Count 262 K/mm3 (150-450); RBC Distribution Width CV 13.7 % (11.6-14.6); RBC Distribution Width SD 47.9 fl (35.1-43.9); Red Blood Count 3.61 M/mm3 (4.2-5.4); White Blood Count 6.6 K/mm3 (4.4-11.0)
[2019-11-14 18:04] LABS: ALB/GLOB Ratio 0.8 RATIO (0.9-2.4); AST(SGOT) 20 U/L (15-37); Alanine Aminotransfer ALT/SGPT 26 U/L (13-56); Albumin, Serum 3.2 g/dL (3.2-5.0); Alkaline Phosphatase 55 U/L (45-117); Anion Gap 6 (5-15); BUN 16 mg/dL (7-18); BUN/Creat Ratio 17.9 RATIO (10-20); Calcium,Total 8.5 mg/dL (8.5-10.1); Chloride 104 mmol/L (98-107); EST Glomerular Filtration Rate 67 mL/min (>60); Est Glom Filt Rate - Afr Amer 81 mL/min (>60); Globulin 3.9 g/dL (2.2-4.2); Glucose 154 mg/dL (74-106); Potassium 4.1 mmol/L (3.5-5.1); Protein, Total 7.1 g/dL (6.4-8.2); Sodium Level 139 mmol/L (136-145)
== END ==
PROVIDERS: PCP Family Medicine; Referring Provider Internal Medicine Rheumatology; Visit Provider Internal Medicine Rheumatology
DX: M06.4 Inflammatory polyarthropathy (principal); M18.0 Bilateral primary osteoarthritis of first carpometacarpal joints; G56.03 Carpal tunnel syndrome, bilateral upper limbs; I10 Essential (primary) hypertension; E11.319 Type 2 diabetes mellitus with unspecified diabetic retinopathy without macular edema; E78.5 Hyperlipidemia, unspecified; K21.0 Gastro-esophageal reflux disease with esophagitis; Z79.899 Other long term (current) drug therapy; Z85.3 Personal history of malignant neoplasm of breast; Z85.41 Personal history of malignant neoplasm of cervix uteri
CPT/HCPCS: 36415; 80053; 85025

== ENCOUNTER → 2020-04-07 08:36 | Outpatient (CLI) | payer OTHER, MEDICARE, SELFPAY ==
[2020-04-07 09:51] LABS: Absolute Lymphocyte Count 2.26 X10^3/uL (0.83-4.51); Absolute Neutrophil Count 4.4 X10^3/uL (2.0-7.7); Basophil# 0.05 X10^3/uL; Basophil% 0.7 % (0-1); Eosinophil# 0.36 X10^3/uL; Eosinophils% 4.7 % (0-5); Hematocrit 33.9 % (37-47); Hemoglobin 11.3 g/dL (12.0-15.0); Lymphocyte # 2.26 X10^3/ul (4.0); Lymphocyte % 29.5 % (19-41); Mean Corp Hgb Conc 33.3 g/dL (32-36); Mean Corpuscular Hgb 32.2 pg (27.0-32.0); Mean Corpuscular Volume 96.6 fL (81-99); Monocyte# 0.52 X10^3/uL; Monocyte% 6.8 % (0-10); NRBC Flagged by Analyzer 0 % (0-5); Neutrophil # 4.42 X10^3/uL (2.7-7.7); Neutrophil % 57.6 % (47-70); Platelet Count 250 K/mm3 (150-450); RBC Distribution Width CV 13.8 % (11.6-14.6); RBC Distribution Width SD 47.3 fl (35.1-43.9); Red Blood Count 3.51 M/mm3 (4.2-5.4); White Blood Count 7.7 K/mm3 (4.4-11.0)
[2020-04-07 10:13] LABS: ALB/GLOB Ratio 0.8 RATIO (0.9-2.4); AST(SGOT) 22 U/L (15-37); Alanine Aminotransfer ALT/SGPT 27 U/L (13-56); Albumin, Serum 3.1 g/dL (3.2-5.0); Alkaline Phosphatase 64 U/L (45-117); Anion Gap 4 (5-15); BUN 21 mg/dL (7-18); BUN/Creat Ratio 20.4 RATIO (10-20); Calcium,Total 8.2 mg/dL (8.5-10.1); Chloride 105 mmol/L (98-107); Creatinine, Serum 1.03 mg/dL (0.55-1.02); EST Glomerular Filtration Rate 57 mL/min (>60); Est Glom Filt Rate - Afr Amer 69 mL/min (>60); Glucose 289 mg/dL (74-106); Potassium 3.9 mmol/L (3.5-5.1); Protein, Total 7.1 g/dL (6.4-8.2); Sodium Level 136 mmol/L (136-145)
== END ==
PROVIDERS: PCP Family Medicine; Referring Provider Internal Medicine Rheumatology; Visit Provider Internal Medicine Rheumatology
DX: M06.4 Inflammatory polyarthropathy (principal); M18.0 Bilateral primary osteoarthritis of first carpometacarpal joints; G56.03 Carpal tunnel syndrome, bilateral upper limbs; K21.0 Gastro-esophageal reflux disease with esophagitis; I10 Essential (primary) hypertension; E11.319 Type 2 diabetes mellitus with unspecified diabetic retinopathy without macular edema; E78.5 Hyperlipidemia, unspecified; Z79.899 Other long term (current) drug therapy; Z85.3 Personal history of malignant neoplasm of breast; Z85.41 Personal history of malignant neoplasm of cervix uteri
CPT/HCPCS: 36415; 80053; 85025

== ENCOUNTER → 2020-06-23 15:23 | Outpatient (CLI) | payer OTHER, MEDICARE, SELFPAY ==
[2020-06-23 17:44] LABS: Absolute Lymphocyte Count 1.46 X10^3/uL (0.83-4.51); Absolute Neutrophil Count 4.5 X10^3/uL (2.0-7.7); Basophil# 0.04 X10^3/uL; Basophil% 0.6 % (0-1); Hemoglobin 11.4 g/dL (12.0-15.0); Lymphocyte # 1.46 X10^3/ul (4.0); Lymphocyte % 21.8 % (19-41); Mean Corp Hgb Conc 31.7 g/dL (32-36); Mean Corpuscular Hgb 30.7 pg (27.0-32.0); Mean Platelet Vol. 10.2 fl (6.2-12.0); Monocyte# 0.52 X10^3/uL; Monocyte% 7.8 % (0-10); NRBC Flagged by Analyzer 0 % (0-5); Neutrophil # 4.45 X10^3/uL (2.7-7.7); Neutrophil % 66.4 % (47-70); Platelet Count 241 K/mm3 (150-450); RBC Distribution Width CV 12.9 % (11.6-14.6); RBC Distribution Width SD 45.4 fl (35.1-43.9); Red Blood Count 3.71 M/mm3 (4.2-5.4); White Blood Count 6.7 K/mm3 (4.4-11.0)
[2020-06-23 18:22] LABS: ALB/GLOB Ratio 0.7 RATIO (0.9-2.4); AST(SGOT) 14 U/L (15-37); Alanine Aminotransfer ALT/SGPT 24 U/L (13-56); Alkaline Phosphatase 67 U/L (45-117); Anion Gap 6 (5-15); BUN 13 mg/dL (7-18); BUN/Creat Ratio 11.9 RATIO (10-20); Calcium,Total 8.5 mg/dL (8.5-10.1); Chloride 101 mmol/L (98-107); Creatinine, Serum 1.09 mg/dL (0.55-1.02); EST Glomerular Filtration Rate 53 mL/min (>60); Est Glom Filt Rate - Afr Amer 64 mL/min (>60); Globulin 4.2 g/dL (2.2-4.2); Glucose 465 mg/dL (74-106); Potassium 4.3 mmol/L (3.5-5.1); Protein, Total 7.2 g/dL (6.4-8.2); Sodium Level 135 mmol/L (136-145)
== END ==
PROVIDERS: PCP Family Medicine; Referring Provider Internal Medicine Rheumatology; Visit Provider Internal Medicine Rheumatology
DX: M06.4 Inflammatory polyarthropathy (principal); M18.0 Bilateral primary osteoarthritis of first carpometacarpal joints; G56.03 Carpal tunnel syndrome, bilateral upper limbs; E11.319 Type 2 diabetes mellitus with unspecified diabetic retinopathy without macular edema; I10 Essential (primary) hypertension; E78.5 Hyperlipidemia, unspecified; K21.00 Gastro-esophageal reflux disease with esophagitis, without bleeding; Z79.899 Other long term (current) drug therapy; Z85.3 Personal history of malignant neoplasm of breast; Z85.41 Personal history of malignant neoplasm of cervix uteri
CPT/HCPCS: 36415; 80053; 85025

== ENCOUNTER → 2020-10-06 07:45 | Outpatient (CLI) | payer OTHER, MEDICARE, SELFPAY ==
[2020-10-06 09:49] LABS: Absolute Lymphocyte Count 1.92 X10^3/uL (0.83-4.51); Basophil# 0.06 X10^3/uL; Basophil% 0.8 % (0-1); Eosinophil# 0.25 X10^3/uL; Eosinophils% 3.2 % (0-5); Hematocrit 38.2 % (37-47); Hemoglobin 12.1 g/dL (12.0-15.0); Lymphocyte # 1.92 X10^3/ul (4.0); Lymphocyte % 24.4 % (19-41); Mean Corp Hgb Conc 31.7 g/dL (32-36); Mean Corpuscular Hgb 29.8 pg (27.0-32.0); Mean Corpuscular Volume 94.1 fL (81-99); Mean Platelet Vol. 9.5 fl (6.2-12.0); Monocyte% 7.6 % (0-10); NRBC Flagged by Analyzer 0 % (0-5); Neutrophil # 5.01 X10^3/uL (2.7-7.7); Neutrophil % 63.5 % (47-70); Platelet Count 286 K/mm3 (150-450); RBC Distribution Width CV 12.9 % (11.6-14.6); RBC Distribution Width SD 44.4 fl (35.1-43.9); Red Blood Count 4.06 M/mm3 (4.2-5.4); White Blood Count 7.9 K/mm3 (4.4-11.0)
[2020-10-06 10:52] LABS: ALB/GLOB Ratio 0.7 RATIO (0.9-2.4); AST(SGOT) 19 U/L (15-37); Alanine Aminotransfer ALT/SGPT 23 U/L (13-56); Albumin, Serum 3.2 g/dL (3.2-5.0); Alkaline Phosphatase 72 U/L (45-117); Anion Gap 7 (5-15); BUN 15 mg/dL (7-18); BUN/Creat Ratio 17.4 RATIO (10-20); Chloride 103 mmol/L (98-107); Creatinine, Serum 0.86 mg/dL (0.55-1.02); EST Glomerular Filtration Rate 70 mL/min (>60); Est Glom Filt Rate - Afr Amer 84 mL/min (>60); Globulin 4.5 g/dL (2.2-4.2); Glucose 69 mg/dL (74-106); Potassium 3.8 mmol/L (3.5-5.1); Protein, Total 7.7 g/dL (6.4-8.2); Sodium Level 138 mmol/L (136-145)
== END ==
PROVIDERS: PCP Family Medicine; Referring Provider Internal Medicine Rheumatology; Visit Provider Internal Medicine Rheumatology
DX: M06.4 Inflammatory polyarthropathy (principal); M18.0 Bilateral primary osteoarthritis of first carpometacarpal joints; G56.03 Carpal tunnel syndrome, bilateral upper limbs; E11.319 Type 2 diabetes mellitus with unspecified diabetic retinopathy without macular edema; I10 Essential (primary) hypertension; E78.5 Hyperlipidemia, unspecified; Z79.899 Other long term (current) drug therapy; Z85.3 Personal history of malignant neoplasm of breast; Z85.41 Personal history of malignant neoplasm of cervix uteri
CPT/HCPCS: 36415; 80053; 85025

== ENCOUNTER 2020-12-18 12:41 | Emergency (ER) | payer OTHER, MEDICARE, SELFPAY ==
[2020-12-18 12:42] VITALS: BP 169/87; PULSE 113; RESP 16; TEMP 36.2; O2SAT 92; BMI 34.4
--- NOTE | 2020-12-18 13:16 | EKG12_ITS ---
Test Reason : CP Blood Pressure : / mmHG Vent. Rate : 098 BPM Atrial Rate : 098 BPM P-R Int : 182 ms QRS Dur : 082 ms QT Int : 330 ms P-R-T Axes : 042 -09 015 degrees QTc Int : 421 ms Normal sinus rhythm Minimal voltage criteria for LVH, may be normal variant Inferior infarct , age undetermined Possible Anterior infarct , age undetermined Abnormal ECG Confirmed by MALISSA ORTIZ, ZEHRA ([id number]), scientific publications editor JUAN HORTON ([id number]) on 12/22/2020 12:32:28 PM Referred By: ELISABETH Confirmed By:ZEHRA LEONARDO MD
--- NOTE | 2020-12-18 13:19 | EX.ED.DYSGE1 ---
HPI History of Present Illness Chief Complaint: General Illness Narrative Narrative: 70-year-old female presenting with epigastric and right lower quadrant pain. She also states that she has chronic diarrhea as well as vomiting which she believes is due to acid reflux. She states she had upper endoscopy and colonoscopy yesterday. She notes that she has discomfort in the epigastrium as well as the right lower quadrant. Patient states she had a fever 102 Fahrenheit this morning. Patient has distant history of appendectomy. She states she had a recent gallbladder ultrasound which showed gallstones and fatty liver. Patient states that she is itching all over and believes is due to the medication she received yesterday for endoscopy. She does not have any new cough, loss of taste or smell, shortness of breath. She is had both of her COVID-19 vaccines. She had no significant reaction last week when she had this second vaccine. [facility] Medical History (Updated 12/18/20 @ 14:06 by My Sauer) Asthma Diabetes Former smoker GERD (gastroesophageal reflux disease) Hypertension Sleep apnea Home Medications atorvastatin 20 mg PO QHS 01/30/14 [History Last Taken Unknown] calcium carbonate [Oyster Shell Calcium 500] 500 mg PO DAILY 01/30/14 [History Last Taken Unknown] clotrimazole-betamethasone 1 applic TOPICAL DAILY 01/30/14 [History Last Taken Unknown] fluticasone propionate 1 spray NASAL DAILY 01/30/14 [History Last Taken Unknown] lisinopril 20 mg PO DAILY 01/30/14 [History Last Taken 02/07/14 07:40] metformin 1,000 mg PO DAILY 01/30/14 [History Last Taken Unknown] multivitamin with folic acid [Thera] 1 tab PO DAILY 01/30/14 [History Last Taken Unknown] prednisone 10 mg PO DAILY #48 tablet 07/13/14 [Rx Last Taken Unknown] methotrexate sodium 2.5 mg PO QWEEK 04/16/17 [History Last Taken Unknown] albuterol sulfate 2.5 mg INHALATION Q2H PRN PRN 04/29/17 [Rx Last Taken Unknown] insulin aspart U-100 [Novolog Flexpen U-100 Insulin] 0 units SUBCUT Q6 04/29/17 [Rx Last Taken Unknown] insulin detemir U-100 [Levemir FlexTouch U-100 Insuln] 40 units SUBCUT BID 04/29/17 [Rx Last Taken Unknown] acetaminophen [Tylenol] 650 mg PO Q6H PRN PRN tab 05/26/17 [Rx Last Taken Unknown] alum-mag hydroxide-simeth [Mag-Al Plus Extra Strength] 15 ml PO Q6H PRN PRN udc 05/26/17 [Rx Last Taken Unknown] bacitracin zinc 1 applic TOPICAL 0600,1800 tube 05/26/17 [Rx Last Taken Unknown] bethanechol chloride 12.5 mg PO TID tab 05/26/17 [Rx Last Taken Unknown] insulin aspart U-100 [Novolog Flexpen U-100 Insulin] 13 units SUBCUT TIDAC 05/26/17 [Rx Last Taken Unknown] lorazepam 1 mg PO Q6H PRN PRN #30 tab 05/26/17 [Rx Last Taken Unknown] megestrol 400 mg PO DAILY udc 05/26/17 [Rx Last Taken Unknown] menthol-zinc oxide [Calmoseptine] 1 applic TOPICAL TID tube 05/26/17 [Rx Last Taken Unknown] nut.tx.gluc intol,lf,soy-fiber [Glucerna 1.5 Chad] 240 ml G-TUBE 0830,1200,1800 bottle 05/26/17 [Rx Last Taken Unknown] nystatin [Nyamyc] 1 applic TOPICAL 0600,1800 bottle 05/26/17 [Rx Last Taken Unknown] ondansetron 4 mg PO Q8H PRN PRN tab 05/26/17 [Rx Last Taken Unknown] pantoprazole 40 mg PO DAILY tab 05/26/17 [Rx Last Taken Unknown] polyethylene glycol 3350 17 g PO DAILY PRN packet 05/26/17 [Rx Last Taken Unknown] sennosides-docusate sodium [Stool Softener-Stimulant Laxat] 1 tab PO BID PRN tab 05/26/17 [Rx Last Taken Unknown] tamsulosin 0.4 mg PO DAILY@1730 capsule 05/26/17 [Rx Last Taken Unknown] tramadol 50 mg PO Q8H PRN PRN #30 tab 05/26/17 [Rx Last Taken Unknown] ondansetron HCl 4 mg PO Q8H PRN #10 tab 12/18/20 [Rx Last Taken Unknown] Allergy/AdvReac Type Severity Reaction Status Date / Time NSAIDS (Non-Steroidal Allergy Other Verified 06/30/17 16:01 Anti-Inflamma Surgical History History of appendectomy History of hysterectomy History of left mastectomy Social History Smoking Status: Former smoker ROS ROS ED Constitutional Constitutional ED: Denies chills, fever(s) or sweats Eyes Eyes: Denies blurry vision or change in vision ENT ENT ED: Denies ear pain, rhinorrhea or sore throat Cardiovascular Cardiovascular: Denies chest pain, palpitations or racing heartbeat Respiratory/Chest Respiratory/Chest: Denies cough, dyspnea or sputum Gastrointestinal Gastrointestinal: Reports abdominal pain, diarrhea, nausea and vomiting; Denies constipation Genitourinary Genitourinary ED: Denies dysuria, hematuria or urinary frequency Musculoskeletal Musculoskeletal: Denies arthralgias, myalgias or neck pain Integumentary Reports other Details: Pruritic skin diffusely without rash. ; Denies abscess, Abrasions or rash Neurologic Neurologic: Denies headache(s), paresthesias or weakness Psychiatric Psychiatric: Denies anxiety, depression, suicidal ideation or suicidal thoughts Endocrine Endocrinology: Denies polydipsia or polyuria EXAM Physical Exam Const Vital Signs: 12/18/20 12:42 12/18/20 14:02 12/18/20 15:37 Temperature 97.2 F L Temperature Source Temporal Pulse Rate 113 H 95 Respiratory Rate 16 16 Respiratory Effort Normal Respiratory Pattern Normal Blood Pressure 169/87 H Blood Pressure Mean 114 Pulse Ox 92 97 Oxygen Delivery Method Room Air Room Air 12/18/20 17:00 Temperature 98.5 F Temperature Source Oral Pulse Rate 100 Respiratory Rate 16 Respiratory Effort Respiratory Pattern Blood Pressure 140/82 H Blood Pressure Mean 101 Pulse Ox 98 Oxygen Delivery Method Room Air General Appearance ED: Negative for pallor HEENT Reports normocephalic, head/scalp atraumatic and moist mucous membranes Eyes PERRL and EOMs intact bilaterally Neck no lymphadenopathy and supple Chest Wall inspection of chest normal and palpation of chest normal Resp normal respiratory effort and clear to auscultation bilaterally Auscultation: Negative for rales, rhonchi or wheezes Cardio regular rate and regular rhythm GI non-distended Auscultation: normoactive bowel sounds Palpation: soft and tender epigastric and RLQ Narrative: Deferred Back/Spine no CVA tenderness General Back: Negative for CVA tenderness Cervical Spine: Negative for cervical spine tenderness Extremity normal to inspection General Extremety ED: Yes edema and tenderness General Extremity: edema Neuro oriented x3 and CN's II-XII intact bilaterally Sensorium / Orientation: alert Motor Exam: strength 5/5 throughout Psych mental status grossly normal Attitude: No agitated Skin no rashes or lesions noted and no wounds General Skin Exam: Negative for jaundice or pallor MDM MDM MDM Narrative Medical decision making narrative: Patient presenting with complaint of diffuse itching without rash. She is concerned this is due to her medication she received first sedation yesterday during her endoscopy. She also complains of chronic nausea, vomiting, diarrhea. She does have some mild diffuse pain on exam but abdomen is nonperitoneal. Vital signs are stable and she is afebrile, although she reports a fever 102 this morning. Patient has no symptoms of URI. She has no change in taste of smell. She does not have a cough and is not short of breath. Patient did have lab work drawn which does not reveal any leukocytosis, hemoglobin hematocrit are stable, electrolytes are normal. Renal function is just above baseline patient was given IV fluids. Urinalysis shows 500 leukocyte esterase but is slightly contaminated. I will send this for culture. Patient is not having urinary symptoms. CT of the abdomen pelvis with IV contrast is negative. Patient will given a prescription for Zofran for home for her chronic nausea and vomiting. She is counseled on foods she should avoid with her gastric reflux. She states she does drink a lot of coffee. Her itching is improved with Benadryl and Solu-Medrol. Patient counseled she can use Benadryl at home. I counseled her to drink less of this. She is given return precautions. She stable discharge at this time. Impression: 1. Nausea/vomiting 2. diarrhea 3. Abdominal pain Lab Data Attestation: I reviewed the patient's lab results. Labs: Laboratory Results - last 24 hr 12/18/20 12/18/20 12/18/20 13:55 13:55 17:02 WBC 3.4 L RBC 4.83 Hgb 14.0 Hct 44.0 MCV 91.1 MCH 29.0 MCHC 31.8 L RDW Std Deviation 45.5 H RDW Coeff of Tom 13.6 Plt Count 257 MPV 9.6 Immature Gran % (Auto) 0.300 Neut % (Auto) 62.5 Lymph % (Auto) 29.2 [place] % (Auto) 7.1 Eos % (Auto) 0.3 Baso % (Auto) 0.6 Absolute Neuts (auto) 2.1 Absolute Lymphs (auto) 0.98 Nucleated RBC % 0 Sodium 136 Potassium 4.1 Chloride 103 Carbon Dioxide 27.0 Anion Gap 6 BUN 15 Creatinine 1.14 H Estim Creat Clear Calc 37.36 Est GFR (MDRD) Af Amer 61 Est GFR (MDRD) Non-Af 50 L BUN/Creatinine Ratio 13.2 Glucose 331 H Calcium 7.8 L Total Bilirubin 0.50 AST 16 ALT 16 Alkaline Phosphatase 51 Troponin I < 0.015 Total Protein 6.4 Albumin 2.7 L Globulin 3.7 Albumin/Globulin Ratio 0.7 L Lipase 61 L Urine Color Yellow Urine Clarity Sl. Cloudy Urine pH 5.0 Ur Specific [place] 1.010 Urine Protein 15 H Urine Glucose (UA) 250 H Urine Ketones Negative Urine Occult Blood 10 H Urine Nitrite Negative Urine Bilirubin Negative Urine Urobilinogen Normal Ur Leukocyte Esterase 500 H Urine RBC 0-5 SEEN Urine WBC 5-10 SEEN Ur Squamous Epith Cells 0-5 SEEN Ur Transition Epith Cell 0-5 SEEN Urine Bacteria 0 SEEN Hyaline Casts 0-5 SEEN Urine Mucus 0 SEEN Radiography Diagnostic Testing: Radiology Impression Abdomen/Pelvis CT 12/18/20 15:00 IMPRESSION: Multiple small gallstones. Fatty infiltration of the liver. Electronically Signed: Jean Rodriguez MD at 15:31 EDT , Service support , Discharge Plan Triage Chief Complaint: General Illness ED Provider: Elver Carrion Dx/Rx/DC Orders Instructions: ED Diet for Vomiting or Diarrhea Adult, ED GERD (Adult) Prescriptions: New ondansetron HCl 4 mg tablet 4 mg PO Q8H PRN (Reason: nausea and vomiting) Qty: 10 RF: 0 No Action atorvastatin 20 MG tablet 20 mg PO QHS RF: 0 lisinopril 20 MG tablet 20 mg PO DAILY RF: 0 calcium carbonate [Oyster Shell Calcium 500] 500 MG tablet 500 mg PO DAILY RF: 0 metformin 1,000 MG tablet 1,000 mg PO DAILY RF: 0 clotrimazole-betamethasone 1 APPLIC cream 1 applic topical DAILY RF: 0 fluticasone propionate 1 SPRAY spray,suspension 1 spray NASAL DAILY RF: 0 multivitamin with folic acid [Thera] 1 TABLET tablet 1 tab PO DAILY RF: 0 prednisone 10 MG tablet 10 mg PO DAILY Qty: 48 RF: 0 methotrexate sodium 2.5 MG tablet 2.5 mg PO QWEEK RF: 0 albuterol sulfate 2.5 MG/3 ML solution for nebulization 2.5 mg inhalation Q2H PRN PRN (Reason: SHORTNESS OF BREATH) RF: 0 insulin aspart U-100 [Novolog Flexpen U-100 Insulin] 100 UNITS/ML insulin pen 0 units subcut Q6 RF: 0 insulin detemir U-100 [Levemir FlexTouch U-100 Insuln] 100 UNITS/ML insulin pen 40 units subcut BID RF: 0 acetaminophen [Tylenol] 325 MG tablet 650 mg PO Q6H PRN PRN (Reason: TEMP >100.5 & Pain) RF: 0 polyethylene glycol 3350 17 GM powder in packet 17 g PO DAILY PRN (Reason: CONSTIPATION) RF: 0 sennosides-docusate sodium [Stool Softener-Stimulant Laxat] 1 TABLET tablet 1 tab PO BID PRN (Reason: CONSTIPATION) RF: 0 bacitracin zinc 1 APPLIC ointment 1 applic topical 0600,1800 RF: 0 tramadol 50 MG tablet 50 mg PO Q8H PRN PRN (Reason: Moderate Pain (4-5/10)) Qty: 30 RF: 0 bethanechol chloride 25 MG tablet 12.5 mg PO TID RF: 0 lorazepam 0.5 MG tablet 1 mg PO Q6H PRN PRN (Reason: restlessness/anxiety) Qty: 30 RF: 0 tamsulosin 0.4 MG capsule 0.4 mg PO DAILY@1730 RF: 0 pantoprazole 40 MG tablet 40 mg PO DAILY RF: 0 nystatin [Nyamyc] 1 APPLIC bottle 1 applic topical 0600,1800 RF: 0 ondansetron 4 MG tablet 4 mg PO Q8H PRN PRN (Reason: NAUSEA) RF: 0 alum-mag hydroxide-simeth [Mag-Al Plus Extra Strength] 30 ML suspension 15 ml PO Q6H PRN PRN (Reason: upset stomach) RF: 0 insulin aspart U-100 [Novolog Flexpen U-100 Insulin] 100 UNITS/ML insulin pen 13 units subcut TIDAC RF: 0 menthol-zinc oxide [Calmoseptine] 1 APPLIC ointment 1 applic topical TID RF: 0 megestrol 400 MG/10 ML suspension 400 mg PO DAILY RF: 0 nut.tx.gluc intol,lf,soy-fiber [Glucerna 1.5 Chad] 1,000 ML bottle 240 ml G-tube 0830,1200,1800 RF: 0 Primary Care Provider: Brayan Arita Referrals: Brayan Arita MD [Primary Care Provider] - Disposition Disposition: Home, self care
[2020-12-18] MEDS: 0.9% Normal Saline 1,000 ML 1000 ML IV (14:01)
[2020-12-18] MEDS: DiphenhydrAMINE 50 MG/ML Syringe 25 MG IV (14:01)
[2020-12-18 14:12] LABS: Absolute Lymphocyte Count 0.98 X10^3/uL (0.83-4.51); Absolute Neutrophil Count 2.1 X10^3/uL (2.0-7.7); Basophil# 0.02 X10^3/uL; Basophil% 0.6 % (0-1); Eosinophil# 0.01 X10^3/uL; Eosinophils% 0.3 % (0-5); Lymphocyte # 0.98 X10^3/ul (0.83-4.51); Lymphocyte % 29.2 % (19-41); Mean Corp Hgb Conc 31.8 g/dL (32-36); Mean Corpuscular Volume 91.1 fL (81-99); Mean Platelet Vol. 9.6 fl (6.2-12.0); Monocyte# 0.24 X10^3/uL; Monocyte% 7.1 % (0-10); NRBC Flagged by Analyzer 0 % (0-5); Neutrophil % 62.5 % (47-70); Platelet Count 257 K/mm3 (150-450); RBC Distribution Width CV 13.6 % (11.6-14.6); RBC Distribution Width SD 45.5 fl (35.1-43.9); Red Blood Count 4.83 M/mm3 (4.2-5.4); White Blood Count 3.4 K/mm3 (4.4-11.0)
[2020-12-18 14:27] LABS: ALB/GLOB Ratio 0.7 RATIO (0.9-2.4); AST(SGOT) 16 U/L (15-37); Alanine Aminotransfer ALT/SGPT 16 U/L (13-56); Albumin, Serum 2.7 g/dL (3.2-5.0); Alkaline Phosphatase 51 U/L (45-117); Anion Gap 6 (5-15); BUN 15 mg/dL (7-18); BUN/Creat Ratio 13.2 RATIO (10-20); Calcium,Total 7.8 mg/dL (8.5-10.1); Chloride 103 mmol/L (98-107); Creatinine, Serum 1.14 mg/dL (0.55-1.02); EST Glomerular Filtration Rate 50 mL/min (>60); Est Glom Filt Rate - Afr Amer 61 mL/min (>60); Estimated Creatinine Clearance 37.36 ml/min; Globulin 3.7 g/dL (2.2-4.2); Glucose 331 mg/dL (74-106); Lipase 61 U/L (73-393); Potassium 4.1 mmol/L (3.5-5.1); Protein, Total 6.4 g/dL (6.4-8.2); Sodium Level 136 mmol/L (136-145)
--- NOTE | 2020-12-18 15:00 | CT_ITS ---
STUDY: CT ABDOMEN AND PELVIS WITH CONTRAST REASON FOR EXAM: Female, 70 years old. Abdominal pain with vomiting and diarrhea. RADIATION DOSAGE (If Supplied By Facility): CTDIvol = ( 20.71 ) mGy, DLP = ( 1158.54 ) mGycm TECHNIQUE: Transaxial images were obtained from the dome of the diaphragm to the symphysis pubis without oral contrast. IV 100mL Isovue-300 was administered. Sagittal and coronal images were reconstructed. Individualized dose optimization techniques were used for this CT. COMPARISON: Comparison is made with prior examination dated 04/16/2017. FINDINGS: Calcified right infrahilar lymph nodes. Coronary artery calcification. There is decreased attenuation of the liver consistent with steatosis. There are multiple small gallstones. Normal spleen. Normal pancreas. There is a small, circumscribed, smooth, low attenuation left adrenal mass, consistent with an adrenal adenoma. This measures 2 cm. Normal right adrenal gland. Normal right kidney. Normal left kidney. Normal visualized stomach. Normal small intestine. Normal colon. The appendix is visualized and appears normal. There is scattered atherosclerotic calcification of the abdominal aorta, without a demonstrated aneurysm. Normal inferior vena cava. Normal retroperitoneum. Normal urinary bladder. There is absence of the uterus consistent with a prior hysterectomy. Normal abdominal wall. There are diffuse degenerative changes of the visualized lumbar spine. CT/Abdomen/Pelvis W IV Cont ONLY IMPRESSION: Multiple small gallstones. Fatty infiltration of the liver. Electronically Signed: Jean Rodriguez MD at 15:31 EDT , Service support ,
[2020-12-18 15:37] VITALS: PULSE 95; RESP 16; O2SAT 97
[2020-12-18 17:00] VITALS: BP 140/82; PULSE 100; RESP 16; TEMP 36.9; O2SAT 98
[2020-12-18 17:10] LABS: Bacteria 0 SEEN /hpf (None Seen); Mucous, Urine 0 SEEN /hpf (<or=2+)
[2020-12-18 17:20] LABS: Color, Urine Yellow (Yellow); Glucose, Dipstick 250 mg/dl (Normal); Ketone-Dipstick Negative (Negative); Leukocyte Esterase-Dipstick 500 /ul (Negative); Nitrite-Dipstick Negative (Negative); Occult Blood-Urine 10 /ul (Negative); Protein-Dipstick 15 mg/dl (Negative); Urine Bilirubin Dipstick Negative (Negative); Urine Clarity Sl. Cloudy (Clear); Urine Urobilinogen Normal (Normal)
[2020-12-18] MEDS: MethylPREDNISolone 125 MG/2 ML Vial IV (17:56)
[2020-12-18 18:06] LABS: Hyaline Cast 0-5 SEEN /lpf (0-5); Squamous Epithelial Cells - UA 0-5 SEEN /hpf (5-10)
[2020-12-18 18:07] LABS: White Blood Cells 5-10 SEEN /hpf (0-5)
[2020-12-18 18:08] LABS: Red Blood Cells-Urine 0-5 SEEN /hpf (0-5); Transitional Epithelial - Ur 0-5 SEEN /hpf (0-5)
[2020-12-18 18:34] VITALS: BP 141/63; PULSE 99; RESP 18; O2SAT 96
== END 2020-12-18 18:38 | disposition home or self-care (01) ==
PROVIDERS: Emergency Provider Student in an Organized Health Care Education/Training Program; PCP Family Medicine
DX: R11.2 Nausea with vomiting, unspecified (principal); K52.9 Noninfective gastroenteritis and colitis, unspecified; R10.31 Right lower quadrant pain; R10.13 Epigastric pain; K21.9 Gastro-esophageal reflux disease without esophagitis; E11.9 Type 2 diabetes mellitus without complications; I10 Essential (primary) hypertension; J45.909 Unspecified asthma, uncomplicated; G47.30 Sleep apnea, unspecified; Z79.4 Long term (current) use of insulin; Z79.52 Long term (current) use of systemic steroids; Z79.899 Other long term (current) drug therapy; Z87.891 Personal history of nicotine dependence; Z90.49 Acquired absence of other specified parts of digestive tract; Z90.12 Acquired absence of left breast and nipple
CPT/HCPCS: 74177; 80053; 81001; 83690; 84484; 85025; 87077; 87086; 87088; 87186; 93005; 96361; 96374; 96375; 99285; J7030; Q9967; A4216

== ENCOUNTER → 2020-12-30 15:24 | Outpatient (CLI) | payer OTHER, MEDICARE, SELFPAY ==
[2020-12-18 12:42] VITALS: BMI 34.4
[2020-12-30 17:31] LABS: Absolute Lymphocyte Count 1.61 X10^3/uL (0.83-4.51); Absolute Neutrophil Count 4.4 X10^3/uL (2.0-7.7); Basophil# 0.04 X10^3/uL; Basophil% 0.6 % (0-1); Eosinophil# 0.22 X10^3/uL; Eosinophils% 3.3 % (0-5); Hematocrit 37.8 % (37-47); Lymphocyte # 1.61 X10^3/ul (0.83-4.51); Lymphocyte % 24.1 % (19-41); Mean Corp Hgb Conc 31.7 g/dL (32-36); Mean Corpuscular Hgb 29.6 pg (27.0-32.0); Mean Corpuscular Volume 93.1 fL (81-99); Mean Platelet Vol. 9.6 fl (6.2-12.0); Monocyte# 0.41 X10^3/uL; Monocyte% 6.1 % (0-10); NRBC Flagged by Analyzer 0 % (0-5); Neutrophil # 4.36 X10^3/uL (2.7-7.7); Neutrophil % 65.2 % (47-70); Platelet Count 255 K/mm3 (150-450); RBC Distribution Width CV 13.1 % (11.6-14.6); RBC Distribution Width SD 44.6 fl (35.1-43.9); Red Blood Count 4.06 M/mm3 (4.2-5.4); White Blood Count 6.7 K/mm3 (4.4-11.0)
[2020-12-30 17:52] LABS: ALB/GLOB Ratio 0.7 RATIO (0.9-2.4); AST(SGOT) 16 U/L (15-37); Alanine Aminotransfer ALT/SGPT 21 U/L (13-56); Albumin, Serum 2.9 g/dL (3.2-5.0); Alkaline Phosphatase 62 U/L (45-117); Anion Gap 6 (5-15); BUN 8 mg/dL (7-18); BUN/Creat Ratio 9.5 RATIO (10-20); Calcium,Total 8.2 mg/dL (8.5-10.1); Chloride 108 mmol/L (98-107); Creatinine, Serum 0.84 mg/dL (0.55-1.02); EST Glomerular Filtration Rate 71 mL/min (>60); Est Glom Filt Rate - Afr Amer 86 mL/min (>60); Globulin 4.2 g/dL (2.2-4.2); Glucose 147 mg/dL (74-106); Potassium 3.6 mmol/L (3.5-5.1); Protein, Total 7.1 g/dL (6.4-8.2); Sodium Level 140 mmol/L (136-145)
== END ==
PROVIDERS: PCP Family Medicine; Referring Provider Internal Medicine Rheumatology; Visit Provider Internal Medicine Rheumatology
DX: M06.4 Inflammatory polyarthropathy (principal); M18.0 Bilateral primary osteoarthritis of first carpometacarpal joints; G56.03 Carpal tunnel syndrome, bilateral upper limbs; I10 Essential (primary) hypertension; E11.319 Type 2 diabetes mellitus with unspecified diabetic retinopathy without macular edema; E78.5 Hyperlipidemia, unspecified; K21.00 Gastro-esophageal reflux disease with esophagitis, without bleeding; Z79.899 Other long term (current) drug therapy; Z85.3 Personal history of malignant neoplasm of breast; Z85.841 Personal history of malignant neoplasm of brain
CPT/HCPCS: 36415; 80053; 85025

== ENCOUNTER → 2020-12-31 11:05 | Outpatient (CLI) | payer OTHER, MEDICARE, SELFPAY ==
[2020-12-18 12:42] VITALS: BMI 34.4
--- NOTE | 2020-12-31 11:09 | RAD_ITS ---
EXAM: XR RIGHT WRIST COMPLETE, 3 OR MORE VIEWS : 1950 CLINICAL INDICATION: CONTUSION TECHNIQUE: Frontal, lateral and oblique views of the right wrist. This report was created using [employer] report [employer] technology. COMPARISON: None. FINDINGS: BONES/JOINTS: There are degenerative changes with narrowing of the first carpometacarpal joint. No acute fracture. No subluxation. Normal alignment. No sclerotic or destructive changes observed. SOFT TISSUES: Unremarkable. No soft tissue swelling or gas. No radiopaque foreign body. RAD/Wrist min 3 Views IMPRESSION: Degenerative changes with no acute osseous abnormalities. at 1610 Reported and signed by: Jaime Cloud MD Electronically Signed: Jaime Cloud MD at 16:08 EDT Tel , Service support ,
--- NOTE | 2020-12-31 11:10 | RAD_ITS ---
EXAM: XR RIGHT HAND COMPLETE, 3 OR MORE VIEWS : 1950 CLINICAL INDICATION: contusion TECHNIQUE: Frontal, lateral and oblique views of the right hand. This report was created using [employer] report generation technology. COMPARISON: None. FINDINGS: BONES/JOINTS: There are degenerative changes with narrowing of the distal interphalangeal joints. There are also degenerative changes at the first carpometacarpal joint. No acute fracture. No subluxation. Normal alignment. No sclerotic or destructive changes observed. SOFT TISSUES: Unremarkable. No soft tissue swelling or gas. No radiopaque foreign body. RAD/Hand Min 3 Views IMPRESSION: Degenerative changes with narrowing of the interphalangeal joints and first carpometacarpal joint. There are no acute osseous abnormalities. at 1605 Reported and signed by: Jaime Cloud MD Electronically Signed: Jaime Cloud MD at 16:04 EDT Tel , Service support ,
== END ==
PROVIDERS: PCP Family Medicine; Referring Provider Internal Medicine Rheumatology; Visit Provider Internal Medicine Rheumatology
DX: M06.4 Inflammatory polyarthropathy (principal); M18.0 Bilateral primary osteoarthritis of first carpometacarpal joints; G56.03 Carpal tunnel syndrome, bilateral upper limbs; E11.319 Type 2 diabetes mellitus with unspecified diabetic retinopathy without macular edema; I10 Essential (primary) hypertension; E78.5 Hyperlipidemia, unspecified; K21.00 Gastro-esophageal reflux disease with esophagitis, without bleeding; Z79.899 Other long term (current) drug therapy; Z85.3 Personal history of malignant neoplasm of breast; Z85.41 Personal history of malignant neoplasm of cervix uteri
CPT/HCPCS: 73110; 73130

== ENCOUNTER → 2021-03-16 14:53 | Outpatient (CLI) | payer OTHER, MEDICARE, SELFPAY ==
[2021-03-10 11:46] VITALS: BMI 34.4
[2021-03-16 17:47] LABS: Absolute Lymphocyte Count 1.48 X10^3/uL (0.83-4.51); Absolute Neutrophil Count 4.9 X10^3/uL (2.0-7.7); Basophil# 0.05 X10^3/uL; Basophil% 0.7 % (0-1); Eosinophils% 2.8 % (0-5); Hematocrit 37.8 % (37-47); Hemoglobin 12.2 g/dL (12.0-15.0); Lymphocyte # 1.48 X10^3/ul (0.83-4.51); Lymphocyte % 21.1 % (19-41); Mean Corp Hgb Conc 32.3 g/dL (32-36); Mean Corpuscular Hgb 29.7 pg (27.0-32.0); Mean Platelet Vol. 9.8 fl (6.2-12.0); Monocyte# 0.39 X10^3/uL; Monocyte% 5.5 % (0-10); NRBC Flagged by Analyzer 0 % (0-5); Neutrophil # 4.86 X10^3/uL (2.7-7.7); Neutrophil % 69.2 % (47-70); Platelet Count 273 K/mm3 (150-450); RBC Distribution Width CV 12.7 % (11.6-14.6); RBC Distribution Width SD 41.9 fl (35.1-43.9); Red Blood Count 4.11 M/mm3 (4.2-5.4)
[2021-03-16 18:11] LABS: ALB/GLOB Ratio 0.8 RATIO (0.9-2.4); AST(SGOT) 18 U/L (15-37); Alanine Aminotransfer ALT/SGPT 27 U/L (13-56); Albumin, Serum 3.1 g/dL (3.2-5.0); Alkaline Phosphatase 55 U/L (45-117); Anion Gap 5 (5-15); BUN 12 mg/dL (7-18); BUN/Creat Ratio 14.3 RATIO (10-20); Calcium,Total 8.5 mg/dL (8.5-10.1); Chloride 104 mmol/L (98-107); Creatinine, Serum 0.84 mg/dL (0.55-1.02); EST Glomerular Filtration Rate 72 mL/min (>60); Est Glom Filt Rate - Afr Amer 87 mL/min (>60); Globulin 4.1 g/dL (2.2-4.2); Glucose 200 mg/dL (74-106); Potassium 4.1 mmol/L (3.5-5.1); Protein, Total 7.2 g/dL (6.4-8.2); Sodium Level 138 mmol/L (136-145)
== END ==
PROVIDERS: PCP Family Medicine; Referring Provider Internal Medicine Rheumatology; Visit Provider Internal Medicine Rheumatology
DX: M06.4 Inflammatory polyarthropathy (principal); M18.0 Bilateral primary osteoarthritis of first carpometacarpal joints; G56.03 Carpal tunnel syndrome, bilateral upper limbs; E11.319 Type 2 diabetes mellitus with unspecified diabetic retinopathy without macular edema; I10 Essential (primary) hypertension; E78.5 Hyperlipidemia, unspecified; K21.00 Gastro-esophageal reflux disease with esophagitis, without bleeding; Z79.899 Other long term (current) drug therapy; Z85.3 Personal history of malignant neoplasm of breast; Z85.41 Personal history of malignant neoplasm of cervix uteri
CPT/HCPCS: 36415; 80053; 85025

== ENCOUNTER 2021-06-05 12:10 | Emergency (ER) | payer OTHER, MEDICARE, SELFPAY ==
[2021-06-05 12:10] VITALS: BP 199/74; PULSE 65; RESP 18; TEMP 36.1; O2SAT 97; BMI 35.6
--- NOTE | 2021-06-05 12:25 | EX.ED.DYSGE1 ---
HPI History of Present Illness Chief Complaint: Abd Pain Informant: patient Onset/Context/Timing Onset: Today Context: Gradual Onset Current Severity: Mild Maximum Severity: Moderate Narrative Narrative: Patient presents secondary to upper abdominal pain. She states pain started around 830 this morning is in the epigastric area and radiates through to her back. She reports nausea with one episode of vomiting. No fever or chills. She states she has not had a bowel movement today and has not been passing gas. Prior abdominal surgeries significant for appendectomy and hysterectomy. Patient reports he does have a history of gallstones but denies having a cholecystectomy. [facility] Medical History Arthritis Asthma Back problem Breast cancer Breast lump Calcium deficiency Carpal tunnel syndrome Cataract Chronic bronchitis Diabetes Former smoker Gall stone Gastrointestinal problem GERD (gastroesophageal reflux disease) High cholesterol Hives Hypertension IBS (irritable bowel syndrome) Neuropathy Obesity Osteoarthritis Osteoporosis Pancreatitis Recurrent infections Seasonal allergies Sleep apnea UTI (urinary tract infection) Vision problems Home Medications fluticasone propionate 1 spray NASAL DAILY 01/30/14 [History Last Taken Unknown] methotrexate sodium 2.5 mg PO QWEEK 04/16/17 [History Last Taken Unknown] lorazepam 1 mg PO Q6H PRN PRN #30 tab 05/26/17 [Rx Last Taken Unknown] tramadol 50 mg PO Q8H PRN PRN #30 tab 05/26/17 [Rx Last Taken Unknown] albuterol sulfate [ProAir HFA] 2 puff INHALATION Q4H PRN 06/05/21 [History Last Taken Unknown] escitalopram oxalate [Lexapro] 10 mg PO DAILY 06/05/21 [History Last Taken 1 Week Ago ~05/29/21] esomeprazole magnesium [Nexium] 40 mg PO BID 06/05/21 [History Last Taken 06/04/21] fluorometholone [FML Liquifilm] 2 drp LEFT EYE BID 06/05/21 [History Last Taken 06/04/21] zfinnerprbf-pngrzrobk-wznnwfmx [Trelegy Ellipta] 1 inh INHALATION DAILY 06/05/21 [History Last Taken 1 Week Ago ~05/29/21] folic acid 2 mg PO DAILY 06/05/21 [History Last Taken 06/04/21] hydrochlorothiazide 12.5 mg capsule ea PO 06/05/21 [History Last Taken Unknown] insulin degludec [Tresiba FlexTouch U-100] 50 unit SUBCUT QHS 06/05/21 [History Last Taken 06/04/21] insulin lispro [Humalog Pen] 15 unit SUBCUT TID 06/05/21 [History Last Taken Unknown] linaclotide [Linzess] 72 mcg PO DAILY 06/05/21 [History Last Taken Unknown] losartan 100 mg PO DAILY 06/05/21 [History Last Taken 06/04/21] metaxalone 800 mg PO TID PRN 06/05/21 [History Last Taken Unknown] metformin 2,000 mg PO BREAKFAST 06/05/21 [History Last Taken 06/04/21] oxybutynin chloride 5 mg tablet 2.5 mg PO BID tab 06/05/21 [History Last Taken Unknown] prednisone 10 mg PO DAILY PRN 06/05/21 [History Last Taken Unknown] rosuvastatin 5 mg PO MOWE 06/05/21 [History Last Taken 06/01/21] Allergy/AdvReac Type Severity Reaction Status Date / Time NSAIDS (Non-Steroidal Allergy Other Verified 06/05/21 12:11 Anti-Inflamma Family History Other Alcohol abuse Anxiety Arthritis Asthma defect Cancer Diabetes High cholesterol Hypertension Seizures Surgical History History of appendectomy History of hysterectomy History of left mastectomy Social History Smoking Status: Former smoker alcohol intake: current alcohol intake frequency: 0-2 drinks per day substance use type: does not use what type of physical activity do you participate in: none ROS ROS ED Constitutional Constitutional ED: Denies chills or fever(s) Eyes Eyes: Denies change in vision ENT ENT ED: Denies sore throat Cardiovascular Cardiovascular: Denies chest pain Respiratory/Chest Respiratory/Chest: Denies cough or dyspnea Gastrointestinal Gastrointestinal: Reports abdominal pain, nausea and vomiting; Denies diarrhea Genitourinary Genitourinary ED: Denies dysuria Musculoskeletal Musculoskeletal: Reports back pain Integumentary Denies rash Neurologic Neurologic: Denies headache(s) or weakness Allergic/Immunologic Allergic/Immunologic ED: Denies urticaria EXAM Physical Exam Const Vital Signs: 06/05/21 12:10 Temperature 96.9 F L Temperature Source Temporal Pulse Rate 65 Respiratory Rate 18 Blood Pressure 199/74 H Blood Pressure Mean 115 Pulse Ox 97 Oxygen Delivery Method Room Air Positive well nourished and well developed General Appearance ED: well developed HEENT Reports normocephalic and head/scalp atraumatic Eyes PERRL and EOMs intact bilaterally Neck supple Chest Wall inspection of chest normal and palpation of chest normal Resp normal respiratory effort and clear to auscultation bilaterally Cardio regular rate and regular rhythm GI Auscultation: hypoactive bowel sounds Palpation: soft and tender epigastric Extremity normal to inspection Neuro oriented x3 and no sensory deficits noted Sensorium / Orientation: alert Motor Exam: strength 5/5 throughout Psych mental status grossly normal Skin no rashes or lesions noted MDM MDM MDM Narrative Medical decision making narrative: Patient was placed on clinical research monitor. EKG, lab work obtained. Lab Data Attestation: I reviewed the patient's lab results. Labs: Laboratory Results - last 24 hr 06/05/21 06/05/21 12:25 12:25 WBC 8.1 RBC 4.14 L Hgb 12.8 Hct 39.2 MCV 94.7 MCH 30.9 MCHC 32.7 RDW Std Deviation 45.6 H RDW Coeff of Tom 13.3 Plt Count 256 MPV 9.6 Immature Gran % (Auto) 0.500 Neut % (Auto) 69.6 Lymph % (Auto) 20.1 Stanly % (Auto) 6.8 Eos % (Auto) 2.3 Baso % (Auto) 0.7 Absolute Neuts (auto) 5.7 Absolute Lymphs (auto) 1.64 Nucleated RBC % 0 Sodium 137 Potassium 4.1 Chloride 101 Carbon Dioxide 29.0 Anion Gap 7 BUN 25 H Creatinine 1.02 Estim Creat Clear Calc 41.17 Est GFR (MDRD) Af Amer 69 Est GFR (MDRD) Non-Af 57 L BUN/Creatinine Ratio 24.5 H Glucose 283 H Calcium 9.2 Total Bilirubin 0.30 Direct Bilirubin 0.08 AST 14 L ALT 20 Alkaline Phosphatase 55 Troponin I High Sens 7 Total Protein 7.9 Albumin 3.2 Globulin 4.7 H Lipase 166 EKG Initial EKG: Attestation: I personally reviewed and interpreted this EKG as follows: Interpretation: Sinus Rhythm (Sinus at 67 with no acute ischemia.) Treatment and Re-Evaluation Comments:: Lab work including troponin, LFTs, lipase all normal. Patient had initially been ordered morphine but did not find it stating that she wanted to drive home. She actually states that after she vomited this morning she feels significantly improved. She did eat sausage gravy this morning for breakfast and that may have upset her stomach. I advised her to follow bland diet for the next several days. She already takes acid reflux medication and encouraged her to continue this. Return instructions are provided. Discharge Plan Triage Chief Complaint: Abd Pain ED Provider: [place] Jessica Dx/Rx/DC Orders Clinical Impression: Abdominal pain Instructions: ED Abdominal Pain Unkn Cause Fem Prescriptions: No Action rosuvastatin 5 mg tablet 5 mg PO DAILY Qty: 30 RF: 3 hydrochlorothiazide 12.5 mg capsule PO RF: 0 oxybutynin chloride 5 mg tablet 2.5 mg PO BID RF: 0 Tresiba FlexTouch U-200 200 unit/mL (3 mL) insulin pen 50 unit subcut DAILY Qty: 7.5 RF: 6 Humalog KwikPen Insulin 200 unit/mL (3 mL) insulin pen 30 unit subcut .tidcm Qty: 13.5 RF: 6 metformin 1,000 mg tablet 1,000 mg PO BID Qty: 180 RF: 6 lisinopril 20 MG tablet 20 mg PO DAILY RF: 0 calcium carbonate [Oyster Shell Calcium 500] 500 MG tablet 500 mg PO DAILY RF: 0 clotrimazole-betamethasone 1 APPLIC cream 1 applic topical DAILY RF: 0 fluticasone propionate 1 SPRAY spray,suspension 1 spray NASAL DAILY RF: 0 multivitamin with folic acid [Thera] 1 TABLET tablet 1 tab PO DAILY RF: 0 prednisone 10 MG tablet 10 mg PO DAILY Qty: 48 RF: 0 methotrexate sodium 2.5 MG tablet 2.5 mg PO QWEEK RF: 0 albuterol sulfate 2.5 MG/3 ML solution for nebulization 2.5 mg inhalation Q2H PRN PRN (Reason: SHORTNESS OF BREATH) RF: 0 acetaminophen [Tylenol] 325 MG tablet 650 mg PO Q6H PRN PRN (Reason: TEMP >100.5 & Pain) RF: 0 polyethylene glycol 3350 17 GM powder in packet 17 g PO DAILY PRN (Reason: CONSTIPATION) RF: 0 sennosides-docusate sodium [Stool Softener-Stimulant Laxat] 1 TABLET tablet 1 tab PO BID PRN (Reason: CONSTIPATION) RF: 0 bacitracin zinc 1 APPLIC ointment 1 applic topical 0600,1800 RF: 0 tramadol 50 MG tablet 50 mg PO Q8H PRN PRN (Reason: Moderate Pain (4-5/10)) Qty: 30 RF: 0 bethanechol chloride 25 MG tablet 12.5 mg PO TID RF: 0 lorazepam 0.5 MG tablet 1 mg PO Q6H PRN PRN (Reason: restlessness/anxiety) Qty: 30 RF: 0 tamsulosin 0.4 MG capsule 0.4 mg PO DAILY@1730 RF: 0 pantoprazole 40 MG tablet 40 mg PO DAILY RF: 0 nystatin [Nyamyc] 1 APPLIC bottle 1 applic topical 0600,1800 RF: 0 ondansetron 4 MG tablet 4 mg PO Q8H PRN PRN (Reason: NAUSEA) RF: 0 alum-mag hydroxide-simeth [Mag-Al Plus Extra Strength] 30 ML suspension 15 ml PO Q6H PRN PRN (Reason: upset stomach) RF: 0 menthol-zinc oxide [Calmoseptine] 1 APPLIC ointment 1 applic topical TID RF: 0 megestrol 400 MG/10 ML suspension 400 mg PO DAILY RF: 0 nut.tx.gluc intol,lf,soy-fiber [Glucerna 1.5 Chad] 1,000 ML bottle 240 ml G-tube 0830,1200,1800 RF: 0 ondansetron HCl 4 mg tablet 4 mg PO Q8H PRN (Reason: nausea and vomiting) Qty: 10 RF: 0 Primary Care Provider: Brayan Arita Referrals: Brayan Arita MD [Primary Care Provider] - 3-5 Days if not improving Disposition Disposition: Home, Self Care
--- NOTE | 2021-06-05 12:27 | EKG12_ITS ---
Test Reason : ABD PAIN Blood Pressure : / mmHG Vent. Rate : 067 BPM Atrial Rate : 067 BPM P-R Int : 186 ms QRS Dur : 088 ms QT Int : 386 ms P-R-T Axes : 048 -09 017 degrees QTc Int : 407 ms Normal sinus rhythm Inferior infarct , age undetermined Abnormal ECG Confirmed by MALISSA ORTIZ, ZEHRA ([id number]), editor managing newspaper JUAN HORTON ([id number]) on 06/09/2021 10:37:30 AM Referred By: BREANN Confirmed By:ZEHRA LEONARDO MD
[2021-06-05 12:31] LABS: Absolute Lymphocyte Count 1.64 X10^3/uL (0.83-4.51); Absolute Neutrophil Count 5.7 X10^3/uL (2.0-7.7); Basophil# 0.06 X10^3/uL; Basophil% 0.7 % (0-1); Eosinophil# 0.19 X10^3/uL; Eosinophils% 2.3 % (0-5); Hematocrit 39.2 % (37-47); Hemoglobin 12.8 g/dL (12.0-15.0); Lymphocyte # 1.64 X10^3/ul (0.83-4.51); Lymphocyte % 20.1 % (19-41); Mean Corp Hgb Conc 32.7 g/dL (32-36); Mean Corpuscular Hgb 30.9 pg (27.0-32.0); Mean Corpuscular Volume 94.7 fL (81-99); Mean Platelet Vol. 9.6 fl (6.2-12.0); Monocyte# 0.55 X10^3/uL; Monocyte% 6.8 % (0-10); NRBC Flagged by Analyzer 0 % (0-5); Neutrophil # 5.66 X10^3/uL (2.7-7.7); Neutrophil % 69.6 % (47-70); Platelet Count 256 K/mm3 (150-450); RBC Distribution Width CV 13.3 % (11.6-14.6); RBC Distribution Width SD 45.6 fl (35.1-43.9); Red Blood Count 4.14 M/mm3 (4.2-5.4); White Blood Count 8.1 K/mm3 (4.4-11.0)
[2021-06-05] MEDS: Ondansetron 4 MG/2 ML Vial IV (12:36)
--- NOTE | 2021-06-05 12:45 | ED.RN ---
called dr fuentes office to obtain pt medication list
[2021-06-05 12:49] LABS: AST(SGOT) 14 U/L (15-37); Alanine Aminotransfer ALT/SGPT 20 U/L (13-56); Albumin, Serum 3.2 g/dL (3.2-5.0); Alkaline Phosphatase 55 U/L (45-117); Anion Gap 7 (5-15); BUN 25 mg/dL (7-18); BUN/Creat Ratio 24.5 RATIO (10-20); Bilirubin, Direct 0.08 mg/dL (0.00-0.30); Calcium,Total 9.2 mg/dL (8.5-10.1); Chloride 101 mmol/L (98-107); Creatinine, Serum 1.02 mg/dL (0.55-1.02); EST Glomerular Filtration Rate 57 mL/min (>60); Est Glom Filt Rate - Afr Amer 69 mL/min (>60); Estimated Creatinine Clearance 41.17 ml/min; Globulin 4.7 g/dL (2.2-4.2); Glucose 283 mg/dL (74-106); Lipase 166 U/L (73-393); Potassium 4.1 mmol/L (3.5-5.1); Protein, Total 7.9 g/dL (6.4-8.2); Sodium Level 137 mmol/L (136-145); Troponin-I HS 7 pg/mL (3.0-54.0)
[2021-06-05 14:07] VITALS: BP 138/79; PULSE 84; RESP 16; O2SAT 98
== END 2021-06-05 14:08 | disposition home or self-care (01) ==
PROVIDERS: Emergency Provider Emergency Medicine; PCP Family Medicine
DX: R10.10 Upper abdominal pain, unspecified (principal); E11.40 Type 2 diabetes mellitus with diabetic neuropathy, unspecified; J44.9 Chronic obstructive pulmonary disease, unspecified; I10 Essential (primary) hypertension; E78.00 Pure hypercholesterolemia, unspecified; K58.9 Irritable bowel syndrome, unspecified; K21.9 Gastro-esophageal reflux disease without esophagitis; M19.90 Unspecified osteoarthritis, unspecified site; G47.30 Sleep apnea, unspecified; E66.9 Obesity, unspecified; Z79.4 Long term (current) use of insulin; Z79.899 Other long term (current) drug therapy; Z87.891 Personal history of nicotine dependence
CPT/HCPCS: 80048; 80076; 83690; 84484; 85025; 93005; 96374; 99283; A4216; J2405

== ENCOUNTER → 2021-06-23 07:36 | Outpatient (CLI) | payer OTHER, MEDICARE, SELFPAY ==
[2021-06-23 09:58] LABS: Absolute Lymphocyte Count 2.08 X10^3/uL (0.83-4.51); Absolute Neutrophil Count 4.6 X10^3/uL (2.0-7.7); Basophil# 0.06 X10^3/uL; Basophil% 0.8 % (0-1); Eosinophil# 0.18 X10^3/uL; Eosinophils% 2.4 % (0-5); Hematocrit 38.5 % (37-47); Hemoglobin 12.6 g/dL (12.0-15.0); Lymphocyte # 2.08 X10^3/ul (0.83-4.51); Lymphocyte % 28.1 % (19-41); Mean Corp Hgb Conc 32.7 g/dL (32-36); Mean Corpuscular Hgb 30.8 pg (27.0-32.0); Mean Corpuscular Volume 94.1 fL (81-99); Mean Platelet Vol. 9.7 fl (6.2-12.0); Monocyte# 0.47 X10^3/uL; Monocyte% 6.4 % (0-10); NRBC Flagged by Analyzer 0 % (0-5); Neutrophil # 4.57 X10^3/uL (2.7-7.7); Neutrophil % 61.8 % (47-70); Platelet Count 278 K/mm3 (150-450); RBC Distribution Width SD 44.3 fl (35.1-43.9); Red Blood Count 4.09 M/mm3 (4.2-5.4); White Blood Count 7.4 K/mm3 (4.4-11.0)
[2021-06-23 10:54] LABS: ALB/GLOB Ratio 0.6 RATIO (0.9-2.4); AST(SGOT) 12 U/L (15-37); Alanine Aminotransfer ALT/SGPT 19 U/L (13-56); Alkaline Phosphatase 60 U/L (45-117); Anion Gap 7 (5-15); BUN 18 mg/dL (7-18); BUN/Creat Ratio 17.5 RATIO (10-20); Calcium,Total 9.2 mg/dL (8.5-10.1); Chloride 104 mmol/L (98-107); Creatinine, Serum 1.03 mg/dL (0.55-1.02); EST Glomerular Filtration Rate 57 mL/min (>60); Est Glom Filt Rate - Afr Amer 68 mL/min (>60); Globulin 4.7 g/dL (2.2-4.2); Glucose 197 mg/dL (74-106); Potassium 3.9 mmol/L (3.5-5.1); Protein, Total 7.7 g/dL (6.4-8.2); Sodium Level 137 mmol/L (136-145)
== END ==
PROVIDERS: PCP Family Medicine; Referring Provider Internal Medicine Rheumatology; Visit Provider Internal Medicine Rheumatology
DX: M06.4 Inflammatory polyarthropathy (principal); M18.0 Bilateral primary osteoarthritis of first carpometacarpal joints; G56.03 Carpal tunnel syndrome, bilateral upper limbs; I10 Essential (primary) hypertension; E11.319 Type 2 diabetes mellitus with unspecified diabetic retinopathy without macular edema; E78.5 Hyperlipidemia, unspecified; K21.9 Gastro-esophageal reflux disease without esophagitis; Z85.3 Personal history of malignant neoplasm of breast; Z85.41 Personal history of malignant neoplasm of cervix uteri
CPT/HCPCS: 36415; 80053; 85025

== ENCOUNTER 2021-09-14 15:41 | Outpatient (CLI) | payer OTHER, MEDICARE, SELFPAY ==
[2021-09-14 18:13] LABS: Absolute Lymphocyte Count 1.48 X10^3/uL (0.83-4.51); Absolute Neutrophil Count 4.6 X10^3/uL (2.0-7.7); Basophil# 0.06 X10^3/uL; Basophil% 0.9 % (0-1); Eosinophil# 0.22 X10^3/uL; Eosinophils% 3.2 % (0-5); Hematocrit 39.9 % (37-47); Lymphocyte # 1.48 X10^3/ul (0.83-4.51); Lymphocyte % 21.7 % (19-41); Mean Corp Hgb Conc 32.6 g/dL (32-36); Mean Corpuscular Hgb 30.3 pg (27.0-32.0); Monocyte# 0.48 X10^3/uL; NRBC Flagged by Analyzer 0 % (0-5); Neutrophil # 4.55 X10^3/uL (2.7-7.7); Neutrophil % 66.6 % (47-70); Platelet Count 291 K/mm3 (150-450); RBC Distribution Width CV 13.1 % (11.6-14.6); RBC Distribution Width SD 44.2 fl (35.1-43.9); Red Blood Count 4.29 M/mm3 (4.2-5.4); White Blood Count 6.8 K/mm3 (4.4-11.0)
[2021-09-14 18:23] LABS: ALB/GLOB Ratio 0.7 RATIO (0.9-2.4); AST(SGOT) 14 U/L (15-37); Alanine Aminotransfer ALT/SGPT 18 U/L (13-56); Albumin, Serum 3.1 g/dL (3.2-5.0); Alkaline Phosphatase 61 U/L (45-117); Anion Gap 4 (5-15); BUN 15 mg/dL (7-18); BUN/Creat Ratio 9.3 RATIO (10-20); Chloride 102 mmol/L (98-107); Creatinine, Serum 1.62 mg/dL (0.55-1.02); EST Glomerular Filtration Rate 34 mL/min (>60); Est Glom Filt Rate - Afr Amer 41 mL/min (>60); Globulin 4.5 g/dL (2.2-4.2); Glucose 385 mg/dL (74-106); Potassium 4.4 mmol/L (3.5-5.1); Protein, Total 7.6 g/dL (6.4-8.2); Sodium Level 137 mmol/L (136-145)
== END 2021-09-14 23:59 | disposition short-term general hospital (02) ==
LOC: MTLAB 15:44
PROVIDERS: PCP Family Medicine; Referring Provider Internal Medicine Rheumatology; Visit Provider Internal Medicine Rheumatology
DX: M06.4 Inflammatory polyarthropathy (principal); E11.319 Type 2 diabetes mellitus with unspecified diabetic retinopathy without macular edema; M15.9 Polyosteoarthritis, unspecified; M18.0 Bilateral primary osteoarthritis of first carpometacarpal joints; G56.01 Carpal tunnel syndrome, right upper limb; K21.00 Gastro-esophageal reflux disease with esophagitis, without bleeding; I10 Essential (primary) hypertension; E78.5 Hyperlipidemia, unspecified; Z79.899 Other long term (current) drug therapy; Z85.3 Personal history of malignant neoplasm of breast; Z85.41 Personal history of malignant neoplasm of cervix uteri
CPT/HCPCS: 36415; 80053; 85025

== ENCOUNTER 2021-10-12 11:53 | Outpatient (CLI) | payer OTHER, MEDICARE, SELFPAY ==
[2021-10-12 16:01] LABS: ALB/GLOB Ratio 0.7 RATIO (0.9-2.4); AST(SGOT) 16 U/L (15-37); Alanine Aminotransfer ALT/SGPT 15 U/L (13-56); Alkaline Phosphatase 55 U/L (45-117); Anion Gap 5 (5-15); BUN 13 mg/dL (7-18); BUN/Creat Ratio 12.3 RATIO (10-20); Chloride 101 mmol/L (98-107); Creatinine, Serum 1.06 mg/dL (0.55-1.02); EST Glomerular Filtration Rate 55 mL/min (>60); Est Glom Filt Rate - Afr Amer 66 mL/min (>60); Globulin 4.5 g/dL (2.2-4.2); Glucose 354 mg/dL (74-106); Potassium 3.8 mmol/L (3.5-5.1); Protein, Total 7.5 g/dL (6.4-8.2); Sodium Level 134 mmol/L (136-145)
== END 2021-10-12 23:59 | disposition home or self-care (01) ==
LOC: MTLAB 11:55
PROVIDERS: PCP Family Medicine; Referring Provider Internal Medicine Rheumatology; Visit Provider Internal Medicine Rheumatology
DX: M06.4 Inflammatory polyarthropathy (principal); E11.319 Type 2 diabetes mellitus with unspecified diabetic retinopathy without macular edema; M18.0 Bilateral primary osteoarthritis of first carpometacarpal joints; G56.03 Carpal tunnel syndrome, bilateral upper limbs; K21.00 Gastro-esophageal reflux disease with esophagitis, without bleeding; I10 Essential (primary) hypertension; E78.5 Hyperlipidemia, unspecified; Z85.3 Personal history of malignant neoplasm of breast; Z85.41 Personal history of malignant neoplasm of cervix uteri
CPT/HCPCS: 36415; 80053

== ENCOUNTER 2021-11-23 09:13 | Outpatient (CLI) | payer OTHER, MEDICARE, SELFPAY ==
[2021-11-23 09:17] LABS: Mucous, Urine 0 SEEN /hpf (<or=2+); Red Blood Cells-Urine 0 SEEN /hpf (0-5)
[2021-11-23 12:21] LABS: Color, Urine Yellow (Yellow); Glucose, Dipstick 250 mg/dl (Normal); Ketone-Dipstick Negative (Negative); Leukocyte Esterase-Dipstick 100 /ul (Negative); Nitrite-Dipstick Negative (Negative); Occult Blood-Urine Negative /ul (Negative); Protein-Dipstick 15 mg/dl (Negative); Urine Bilirubin Dipstick Negative (Negative); Urine Clarity Sl. Cloudy (Clear); Urine Urobilinogen Normal (Normal)
[2021-11-23 12:37] LABS: Bacteria 1+ /hpf (None Seen); Squamous Epithelial Cells - UA 0-5 SEEN /hpf (5-10); White Blood Cells 10-25 SEEN /hpf (0-5)
== END 2021-11-23 23:59 | disposition home or self-care (01) ==
LOC: BIMLAB 09:15
PROVIDERS: PCP Family Medicine; Visit Provider Nurse Practitioner Family
DX: R32 Unspecified urinary incontinence (principal)
CPT/HCPCS: 81001; 87077; 87086; 87088; 87186

== ENCOUNTER → 2021-12-11 | Outpatient (CLI) | payer OTHER, MEDICARE, SELFPAY ==
[2021-12-11 14:58] LABS: Absolute Lymphocyte Count 1.66 X10^3/uL (0.83-4.51); Absolute Neutrophil Count 4.4 X10^3/uL (2.0-7.7); Basophil# 0.04 X10^3/uL; Basophil% 0.6 % (0-1); Eosinophil# 0.23 X10^3/uL; Eosinophils% 3.4 % (0-5); Hematocrit 37.8 % (37-47); Hemoglobin 12.4 g/dL (12.0-15.0); Lymphocyte # 1.66 X10^3/ul (0.83-4.51); Lymphocyte % 24.9 % (19-41); Mean Corp Hgb Conc 32.8 g/dL (32-36); Mean Corpuscular Hgb 30.8 pg (27.0-32.0); Mean Platelet Vol. 9.7 fl (6.2-12.0); Monocyte# 0.32 X10^3/uL; Monocyte% 4.8 % (0-10); NRBC Flagged by Analyzer 0 % (0-5); Neutrophil # 4.39 X10^3/uL (2.7-7.7); Neutrophil % 65.7 % (47-70); Platelet Count 286 K/mm3 (150-450); RBC Distribution Width CV 13.5 % (11.6-14.6); RBC Distribution Width SD 45.9 fl (35.1-43.9); Red Blood Count 4.02 M/mm3 (4.2-5.4); White Blood Count 6.7 K/mm3 (4.4-11.0)
[2021-12-11 15:28] LABS: ALB/GLOB Ratio 0.7 RATIO (0.9-2.4); AST(SGOT) 12 U/L (15-37); Alanine Aminotransfer ALT/SGPT 17 U/L (13-56); Alkaline Phosphatase 55 U/L (45-117); Anion Gap 4 (5-15); BUN 14 mg/dL (7-18); BUN/Creat Ratio 16.4 RATIO (10-20); Calcium,Total 8.8 mg/dL (8.5-10.1); Chloride 107 mmol/L (98-107); Creatinine, Serum 0.85 mg/dL (0.55-1.02); EST Glomerular Filtration Rate 70 mL/min (>60); Est Glom Filt Rate - Afr Amer 85 mL/min (>60); Globulin 4.4 g/dL (2.2-4.2); Glucose 81 mg/dL (74-106); Potassium 3.5 mmol/L (3.5-5.1); Protein, Total 7.4 g/dL (6.4-8.2); Sodium Level 142 mmol/L (136-145)
== END | disposition home or self-care (01) ==
LOC: MTLAB 14:06
PROVIDERS: PCP Family Medicine; Referring Provider Internal Medicine Rheumatology; Visit Provider Internal Medicine Rheumatology
DX: M06.4 Inflammatory polyarthropathy (principal); E11.319 Type 2 diabetes mellitus with unspecified diabetic retinopathy without macular edema; M18.0 Bilateral primary osteoarthritis of first carpometacarpal joints; G56.03 Carpal tunnel syndrome, bilateral upper limbs; K21.00 Gastro-esophageal reflux disease with esophagitis, without bleeding; I10 Essential (primary) hypertension; E78.5 Hyperlipidemia, unspecified; Z79.899 Other long term (current) drug therapy; Z85.3 Personal history of malignant neoplasm of breast
CPT/HCPCS: 36415; 80053; 85025

== ENCOUNTER 2022-02-11 07:17 | Day surgery (SDC) | payer OTHER, MEDICARE, SELFPAY ==
[2022-02-11 07:57] VITALS: BP 158/73; PULSE 79; RESP 16; TEMP 36.9; O2SAT 94; BMI 36.3
--- NOTE | 2022-02-11 08:08 | PCM.HP.BLA ---
History and Physical Date of Admission: 02/11/22 MENDEZ KEITH, is a 71 F who presents to the office today for Initial consultation. Mendez established with this clinic .09.05 with referral from her PCP for possible gastroparesis and fecal urgency. Utilizing metformin for uncontrolled DMII with dose of 2000mg QD. This continues to be uncontrolled and utilizes metformin 2000mg BID and Levemir. Seen by another trace clerk with diagnosis of gastroparesis. Attempted linzess, Carafate, Nexium 40mg BID. DMII with retinopathy (follows with [facility] endocrinology), cardiac stress test found no abnormal to report, EF 70%, inflammatory polyarthritis follows with Dr. Johnson rheumatology, breast cancer age 34 a/p lumpectomy and cervical cancer, diverticulosis, positive hemoccult stool, reflux esophagitis. History of feeding tube placement. EGD and colonoscopy performed 12.17.20 finding food contents in esophagus; gastroparesis secondary to DMII with mild reactive gastropathy; H.Pylori negative. Colonoscopy without abnormal comment. CT abd/pel 12.18.20 found liver steatosis; multiple gallstones; low-attenuation left adrenal mass consistent with adrenal adenoma. Gastric emptying study with [facility] 02.06.21 found delayed gastric emptying with 27% retention at 4 hour mariya (normal 0-10%). This was done while taking a weekly injection for appetite suppressant. Feels that following the cessation of this medication the symptoms associated with this are better. Diarrhea, reflux and emesis for 3-4 years. Reflux and emesis typically occur following PO intake, usually after her last meal of the day. 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 These symptoms are better when she remembers her esomeprazole 40mg BID, but sometimes she forgets. Diarrhea occurs 1-2 times every couple of weeks with bowel movements up to ten times. When she stopped the appetite suppressant injection her diarrhea, reflux and emesis are occurring less frequently and somewhat less severe. Reports gallstones. Additionally, has difficulty with constipation. She was previously started on Linzess 72mcg. Prior to starting Linzess she was having a bowel movement 1-2 times a day with incomplete evacuation. Since starting Linzess she has a BM 2-3 times a day and has improved feeling of evacuation, but this causes her to have diarrhea that is not well controlled and can cause her to have urgency incontinence. In 2017 years ago she lost consciousness and was found in her bathtub and had been there 6-7 days. Remembers calling off work because she did not feel well and then woke up a month and a half ago in the [facility] hospital. 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 Denies current alcohol intake, cigarette smoking or marijuana. ROS Const Constitutional: No anorexia, fatigue, fever(s), weight change or sleep problems Eyes Eyes: No change in vision ENT ENT: No abnormal hearing, difficulty swallowing, mouth lesions, tongue swelling or throat swelling Resp Respiratory: No cough or shortness of breath Cardio Cardiology: No chest pain at rest, chest pain with exertion, shortness of breath or dyspnea on exertion Gastro GI: No difficulty swallowing Genitourinary-Female: No difficulty urinating or burning urination Musc Musculoskeletal: No joint pain, joint swelling, muscle weakness or decreased muscle mass Skin Skin: No hair loss in leg, yellowing of the eye, itchy eyes, rash, skin ulcer or skin swelling Neuro Neurology: No abnormal hearing, abnormal movements, confusion, unsteady gait/balance or memory loss Psych Psychiatric: No anxiety, No confusion and No memory loss Endo Endocrine: No fatigue or weight change Aller/Imm Allergy/Immunologic: No itchy eyes, throat swelling or tongue swelling Fred/Lymp Hematologic/Lymphatic: No easy bleeding, easy bruising or enlarged lymph nodes Exam Const General: cooperative and comfortable Nutritional Appearance: average body habitus and well nourished [facility] Head: normal to inspection Ears: hearing grossly normal bilaterally Nose: external nose normal Face and sinus: normal facial exam Mouth: oral mucosae normal Throat: posterior oropharynx normal Eyes General: appearance normal, both eyes and all related structures Neck Neck: normal visual inspection Chest Chest palpation & inspection: normal inspection of the chest and normal palpation of entire chest wall Resp Effort & Inspection: normal respiratory effort Auscultation: Bilateral: Clear to Auscultation Cardio Palpation: normal PMI Rate: regular rate Rhythm: regular rhythm GI Inspection: normal to inspection Auscultation: normal bowel sounds Percussion: normal to percussion Palpation: no hepatosplenomegaly Skin General: no rashes or lesions noted Neuro General: patient alert Extrem General: normal to inspection Psych Affect: normal affect Quality Reporting Tobacco Screening ([facility] 138) Smoking Status: Former smoker Assessment and Plan Assessment and Plan (1) Gastroparesis: ?Plan - Dr. Parra Friend, DO: Her abdominal pain is likely secondary to gastroparesis.? She did have a previous gastric emptying study which was abnormal.? However this was 5 years ago.? She will need to repeat a gastric emptying study and have an region of upper GI tract for pathology that would lead to gastroparesis.? Difficult diagnosis of the pyloric stenosis, polyp obstruction passage from the stomach into the duodenum, peptic ulcer disease.? She should undergo evaluation of the lower GI tract because of her history of diarrhea. Alternatives, risk, benefits including bleeding, infection , need for emergent surgery and . She will have an? ASA 3. I have re-examined the patient. There are no clinical changes since date of exam.
[2022-02-11] MEDS: Lactated Ringers 1,000 ML 30 ML IV (08:17)
--- NOTE | 2022-02-11 08:30 | COLBX_PTH ---
PATIENT: MENDEZ KEITH LOC: EN U#:[id number] AGE/SX: 71/F ROOM: RE02/11/[address]: Dr. Fidel Olivas DO : 1950 BED: DIS: 02/11/2022 SPEC #: [id number] RECD: 02/11/22 12:48 STATUS: ANGELICA TAYLOR #: [id number] ARLEY: 02/11/22 08:[address]: Fidel Olivas DEPT: SURGICAL PATHOLOGY RECD BY: Shoaib White ENTERED: 02/11/22 13:48 SP TYPE: COLON BX OTHR DR: Dr. Brayan Arita MD Tissues: A - Duodenum, NOS B - Gastric mucous membrane C - Esophagus, NOS D - Transverse colon E - COLON BIOPSY Procedures: Surgery Specimen Level IV HEADER OPERATION: Colonoscopy, EGD ([facility]), biopsy PRE-OP DIAGNOSIS: Gastroparesis TISSUE SUBMITTED: A ? Duodenum biopsy, B ? Antrum biopsy for H. pylori and path, C ? Distal esophagus biopsy, D ? Biopsy of transverse polyp, E ? Random colon biopsies MICROSCOPIC DIAGNOSIS A. Duodenum, biopsy: No pathologic change. B. Gastric antrum, biopsy: Mild chronic inflammation. See comment. C. Distal esophagus, biopsy: Fragments of gastric mucosa with mild chronic inflammation. Focal goblet cell metaplasia. No evidence of dysplasia. See comment. D. Transverse colon polyp, biopsy: Fragments of tubular adenoma. E. Colon, random biopsy: No pathologic change. AM:marci 02/12/2022 COMMENT B. The results of immunohistochemistry for Helicobacter pylori will be reported separately ([id number]). C. Alcian blue/PAS stain with matched control supports the above diagnosis. MICROSCOPIC DESCRIPTION Slides are reviewed. GROSS DESCRIPTION A - Received in fixative is one container labeled with the patient's name and designated duodenum biopsy. The specimen consists of two irregular fragments of light guthrie soft tissue that in aggregate measure 0.6 x 0.3 x 0.1 cm. The specimen is totally submitted in one cassette. B - Received in fixative is one container labeled with the patient's name and designated antrum biopsy. The specimen consists of two irregular fragments of light guthrie soft tissue that in aggregate measure 0.6 x 0.3 x 0.1 cm. The specimen is totally submitted in one cassette. C - Received in fixative is one container labeled with the patient's name and designated distal esophagus biopsy. The specimen consists of one irregular fragment of light guthrie soft tissue that measures 0.4 x 0.3 x 0.1 cm. The specimen is totally submitted in one cassette. D - Received in fixative is one container labeled with the patient's name and designated biopsy of transverse polyp. The specimen consists of one irregular fragment of light guthrie soft tissue that measures 0.4 x 0.2 x 0.1 cm. The specimen is totally submitted in one cassette. E - Received in fixative is one container labeled with the patient's name and designated random colon biopsy. The specimen consists of multiple irregular fragments of light guthrie soft tissue that in aggregate measure 2.5 x 0.5 x 0.1 cm. The specimen is totally submitted in one cassette. / WILFREDO:marci 02/11/2022 TC:3 CPT: 11615 x5, 95893
--- NOTE | 2022-02-11 08:30 | IMM_PTH ---
PATIENT: MENDEZ KEITH LOC: EN U#:[id number] AGE/SX: 71/F ROOM: RE02/11/[address]: Dr. Fidel Olivas DO : 1950 BED: DIS: 02/11/2022 SPEC #: [id number] RECD: 02/11/22 13:59 STATUS: ANGELICA REQ #: [id number] ARLEY: 02/11/22 08:[address]: Fidel Olivas DEPT: IMMUNOHISTOCHEMISTRY RECD BY: Brooklynn Sheridan ENTERED: 02/11/22 13:59 SP TYPE: IMMUNO OTHR DR: Dr. Brayan Arita MD Tissues: B - Stomach, NOS Procedures: H Pylori (initial) PHYSICIAN & INSTITUTION [place] [id number] SPECIMEN INFORMATION: Tissue Source: B ? Antrum biopsy Clinical Info: Gastroparesis Specimen Number: [id number] CPT code: 33585 METHODOLOGY: Deparaffinized sections of prefer/formalin-fixed tissue or PAP/DQ stained slides are incubated with monoclonal/polyclonal antibodies/oligonucleotide probes. Localization is made via biotin free immunoperoxidase method. Appropriate controls are performed and reacted as expected. Results on target cell population are indicated in the following table: RESULTS: ANTIBODY / CLONE RESULT Block B H Pylori (polyclonal) negative These tests were developed and their performance characteristics determined by [facility]. They may not have been cleared or approved by the U.S. Food and Drug Administration. The FDA has determined that such clearance or approval is not necessary. The above immunohistochemical/dualISH markers are ordered and reviewed by the Pathologist. INTERPRETATION: B. Antrum, biopsy: Negative for Helicobacter pylori organisms. AM:marci 02/12/2022
[2022-02-11 09:06] LABS: Bedside Glucose 266 mg/dL (74-106)
[2022-02-11 09:11] VITALS: BP 115/52; BP 158/73; PULSE 84; RESP 16; TEMP 36.6; O2SAT 94
[2022-02-11 09:15] VITALS: BP 115/50; BP 158/73; PULSE 80; RESP 16; O2SAT 93
--- NOTE | 2022-02-11 09:15 | OP.EGD_ITS ---
Patient Name: Manisha Beth Procedure Date: 02/11/2022 8:22 AM Date of : 1950 Age: 71 Procedure: Upper GI endoscopy Indications: Epigastric abdominal pain, Dyspepsia Providers: Fidel Olivas DO Medicines: Monitored Anesthesia Care Patient Profile: This is a 71 year old female. Refer to note in patient chart for documentation of history and physical. Patient has symptoms of chronic abdominal cramping, chronic epigastric abdominal pain and chronic nausea. Complications: No immediate complications. Procedure: Pre-Anesthesia Assessment: - Prior to the procedure, a History and Physical was performed, and patient medications and allergies were reviewed. The patient is competent. The risks and benefits of the procedure and the sedation options and risks were discussed with the patient. All questions were answered and informed consent was obtained. Patient identification and proposed procedure were verified by the physician in the pre-procedure area. Mental Status Examination: alert and oriented. Airway Examination: normal oropharyngeal airway and neck mobility. Respiratory Examination: clear to auscultation. CV Examination: normal. Prophylactic Antibiotics: The patient does not require prophylactic antibiotics. Prior Anticoagulants: The patient has taken no previous anticoagulant or antiplatelet agents. ASA Grade Assessment: II - A patient with mild systemic disease. After reviewing the risks and benefits, the patient was deemed in satisfactory condition to undergo the procedure. The anesthesia plan was to use moderate sedation / analgesia (conscious sedation). Immediately prior to administration of medications, the patient was re-assessed for adequacy to receive sedatives. The heart rate, respiratory rate, oxygen saturations, blood pressure, adequacy of pulmonary ventilation, and response to care were monitored throughout the procedure. The physical status of the patient was re-assessed after the procedure. After obtaining informed consent, the endoscope was passed under direct vision. Throughout the procedure, the patient's blood pressure, pulse, and oxygen saturations were monitored continuously. The Colonoscope was introduced through the mouth, and advanced to the second part of duodenum. The upper GI endoscopy was accomplished without difficulty. The patient tolerated the procedure well. Scope In: 8:32:50 AM Scope Out: 8:40:20 AM Total Procedure Duration Time 0 hours 7 minutes 30 seconds Findings: The Z-line was irregular and was found 37 cm from the incisors. Biopsies were taken with a cold forceps for histology. Verification of patient identification for the specimen was done. Estimated blood loss was minimal. Patchy mildly erythematous mucosa without bleeding was found in the gastric antrum. Biopsies were taken with a cold forceps for histology. Verification of patient identification for the specimen was done. Estimated blood loss was minimal. There was some retained food seen in the stomach. The first portion of the duodenum was normal. Biopsies were taken with a cold forceps for histology. Verification of patient identification for the specimen was done. Estimated blood loss was minimal. Impression: - Z-line irregular, 37 cm from the incisors. Biopsied. - Erythematous mucosa in the antrum. Biopsied. - Normal first portion of the duodenum. Biopsied. Recommendation: - Written discharge instructions were provided to the patient. - The signs and symptoms of potential delayed complications were discussed with the patient. - Patient has a contact number available for emergencies. - Return to normal activities tomorrow. - Resume previous diet. - Continue present medications. - Await pathology results. Procedure Code(s): --- Professional --- 13905, Esophagogastroduodenoscopy, flexible, transoral; with biopsy, single or multiple CPT copyright 2017 [employer]. All rights reserved. The codes documented in this report are preliminary and upon forest and conservation worker review may be revised to meet current compliance requirements. Fidel Olivas DO 02/11/2022 9:14:45 AM This report has been signed electronically. Number of Addenda: 1 Note Initiated On: 02/11/2022 8:22 AM Addendum Number: 1 Addendum Date: 05/18/2022 6:00:02 AM MAC was used as sedation for this procedure. Fidel Olivas DO 05/18/2022 6:00:06 AM This report has been signed electronically.
--- NOTE | 2022-02-11 09:15 | OP.CCLET_ITS ---
05/18/2022 Brayan Arita Re : Upper GI endoscopy procedure for Manisha Beth Dear Lyla This procedure was performed on January. My impressions and recommendations are as follows: Impressions : - Z-line irregular, 37 cm from the incisors. Biopsied. - Erythematous mucosa in the antrum. Biopsied. - Normal first portion of the duodenum. Biopsied. Recommendations : - Written discharge instructions were provided to the patient. - The signs and symptoms of potential delayed complications were discussed with the patient. - Patient has a contact number available for emergencies. - Return to normal activities tomorrow. - Resume previous diet. - Continue present medications. - Await pathology results. My findings are described in the full procedure note, which is enclosed. If I can be of further assistance, please feel free to contact me at . Sincerely, Fidel Olivas, 02/11/2022 9:14:45 AM This report has been signed electronically.
--- NOTE | 2022-02-11 09:18 | OP.COLON_ITS ---
Patient Name: Manisha Beth Procedure Date: 02/11/2022 8:40 AM Date of : 1950 Age: 71 Procedure: Colonoscopy Indications: Clinically significant diarrhea of unexplained origin Providers: Fidel Olivas DO Medicines: Monitored Anesthesia Care Patient Profile: This is a 71 year old female. Refer to note in patient chart for documentation of history and physical. Patient has symptoms of chronic abdominal cramping, chronic epigastric abdominal pain and chronic nausea. Last Colonoscopy: Complications: No immediate complications. Procedure: Pre-Anesthesia Assessment: - Prior to the procedure, a History and Physical was performed, and patient medications and allergies were reviewed. The patient is competent. The risks and benefits of the procedure and the sedation options and risks were discussed with the patient. All questions were answered and informed consent was obtained. Patient identification and proposed procedure were verified by the physician in the pre-procedure area. Mental Status Examination: alert and oriented. Airway Examination: normal oropharyngeal airway and neck mobility. Respiratory Examination: clear to auscultation. CV Examination: normal. Prophylactic Antibiotics: The patient does not require prophylactic antibiotics. Prior Anticoagulants: The patient has taken no previous anticoagulant or antiplatelet agents. ASA Grade Assessment: II - A patient with mild systemic disease. After reviewing the risks and benefits, the patient was deemed in satisfactory condition to undergo the procedure. The anesthesia plan was to use moderate sedation / analgesia (conscious sedation). Immediately prior to administration of medications, the patient was re-assessed for adequacy to receive sedatives. The heart rate, respiratory rate, oxygen saturations, blood pressure, adequacy of pulmonary ventilation, and response to care were monitored throughout the procedure. The physical status of the patient was re-assessed after the procedure. After I obtained informed consent, the scope was passed under direct vision. Throughout the procedure, the patient's blood pressure, pulse, and oxygen saturations were monitored continuously. The Colonoscope was introduced through the anus and advanced to the cecum, identified by appendiceal orifice and ileocecal valve. The colonoscopy was performed without difficulty. The patient tolerated the procedure well. The quality of the bowel preparation was good. Moderate Sedation: Moderate (conscious) sedation was personally administered by an anesthesia professional. The following parameters were monitored: oxygen saturation, heart rate, blood pressure, respiratory rate, EKG, adequacy of pulmonary ventilation, and response to care. Scope In: 8:47:07 AM Scope Withdrawal Time 0 hours 12 minutes 37 seconds Scope Out: 9:05:26 AM Total Procedure Duration Time 0 hours 18 minutes 19 seconds Findings: The perianal and digital rectal examinations were normal. An area of mildly congested mucosa was found in the recto-sigmoid colon, in the descending colon, in the transverse colon and in the ascending colon. Biopsies were taken with a cold forceps for histology. Verification of patient identification for the specimen was done. Estimated blood loss was minimal. A 5 mm polyp was found in the transverse colon. The polyp was sessile. The polyp was removed with a cold snare. Resection and retrieval were complete. Verification of patient identification for the specimen was done. Estimated blood loss was minimal. A few small-mouthed diverticula were found in the recto-sigmoid colon and sigmoid colon. Impression: - Congested mucosa in the recto-sigmoid colon, in the descending colon, in the transverse colon and in the ascending colon. Biopsied. - One 5 mm polyp in the transverse colon, removed with a cold snare. Resected and retrieved. - Diverticulosis in the recto-sigmoid colon and in the sigmoid colon. Recommendation: - Discharge patient to home. - Resume previous diet. - Continue present medications. - Await pathology results. - Repeat colonoscopy in 5 years for surveillance. - Return to GI office as previously scheduled. Procedure Code(s): --- Professional --- 06959, Colonoscopy, flexible; with removal of tumor(s), polyp(s), or other lesion(s) by snare technique 16536, 59, Colonoscopy, flexible; with biopsy, single or multiple CPT copyright 2017 [employer]. All rights reserved. The codes documented in this report are preliminary and upon mimeographer review may be revised to meet current compliance requirements. Fidel Olivas DO 02/11/2022 9:18:20 AM This report has been signed electronically. Number of Addenda: 1 Note Initiated On: 02/11/2022 8:40 AM Addendum Number: 1 Addendum Date: 05/18/2022 6:00:15 AM MAC was used as sedation for this procedure. Fidel Olivas DO 05/18/2022 6:00:19 AM This report has been signed electronically.
--- NOTE | 2022-02-11 09:19 | OP.CCLET_ITS ---
05/18/2022 Brayan Arita Re : Colonoscopy procedure for Manisha Beth Dear Lyla This procedure was performed on January. My impressions and recommendations are as follows: Impressions : - Congested mucosa in the recto-sigmoid colon, in the descending colon, in the transverse colon and in the ascending colon. Biopsied. - One 5 mm polyp in the transverse colon, removed with a cold snare. Resected and retrieved. - Diverticulosis in the recto-sigmoid colon and in the sigmoid colon. Recommendations : - Discharge patient to home. - Resume previous diet. - Continue present medications. - Await pathology results. - Repeat colonoscopy in 5 years for surveillance. - Return to GI office as previously scheduled. My findings are described in the full procedure note, which is enclosed. If I can be of further assistance, please feel free to contact me at . Sincerely, Fidel Olivas, 02/11/2022 9:18:20 AM This report has been signed electronically.
[2022-02-11 09:20] VITALS: BP 119/52; BP 158/73; PULSE 80; RESP 16; O2SAT 92
[2022-02-11 09:28] VITALS: BP 123/56; BP 158/73; PULSE 84; RESP 16; TEMP 36.7; O2SAT 100
[2022-02-11 09:49] VITALS: BP 158/73
== END 2022-02-11 10:08 | disposition home or self-care (01) ==
LOC: EN 07:18 → AC 07:18
PROVIDERS: PCP Family Medicine; Referring Provider Family Medicine; Visit Provider Internal Medicine Gastroenterology
PROC: 0DJD8ZZ Inspection of Lower Intestinal Tract, Via Natural or Artificial Opening Endoscopic (ICD-10-PCS; CPT 45378; principal; 2022-02-11 08:25)
DX: D12.3 Benign neoplasm of transverse colon (principal); E11.43 Type 2 diabetes mellitus with diabetic autonomic (poly)neuropathy; E11.319 Type 2 diabetes mellitus with unspecified diabetic retinopathy without macular edema; E27.9 Disorder of adrenal gland, unspecified; K29.70 Gastritis, unspecified, without bleeding; K57.30 Diverticulosis of large intestine without perforation or abscess without bleeding; K22.70 Barrett's esophagus without dysplasia; R19.7 Diarrhea, unspecified; K31.84 Gastroparesis; K21.00 Gastro-esophageal reflux disease with esophagitis, without bleeding; Z87.891 Personal history of nicotine dependence; Z79.84 Long term (current) use of oral hypoglycemic drugs; E66.9 Obesity, unspecified
CPT/HCPCS: 45380; 45385; 43239; 82962; 88305; 88342; J7120; J2405

== ENCOUNTER → 2022-03-12 | Outpatient (CLI) | payer OTHER, MEDICARE, SELFPAY ==
--- NOTE | 2022-03-12 08:18 | ECHOD_ITS ---
Reason For Study: Palpitations Procedure This was a 2D Doppler, Color Flow transthoracic echocardiogram. Exam performed in department. Left Ventricle Normal LV size. Left ventricular systolic function is normal. The estimated ejection fraction is 65 %. Stage 1 diastolic dysfunction. No regional wall motion abnormalities noted. Right Ventricle Normal RV size. Normal systolic function. Atria Normal left atrium. Normal right atrium. Mitral Valve Normal mitral valve. Tricuspid Valve Normal tricuspid valve. Aortic Valve Trisinus/trileaflet aortic valve. Mild focal aortic valve calcification. Pulmonic Valve Normal pulmonic valve. Great Vessels Normal aortic root. The pulmonary artery is normal size. Normal inferior vena cava. Pericardium/Pleural No pericardial effusion. MMode/2D Measurements & Calculations LVIDd: 4.2 cm IVSd: 0.92 cm Ao root diam: 3.0 cm LVIDs: 2.9 cm LVPWd: 0.94 cm LA dimension: 3.5 cm RVDd: 3.1 cm FS: 31.9 % LAV(MOD-sp4): 22.4 ml LA A4 area: 11.2 cm2 RA A4 area: 10.9 cm2 Time Measurements MV dec time: 0.18 sec Doppler Measurements & Calculations MV E max lisette: 84.4 cm/sec MV V2 max: 158.1 cm/sec MV P1/2t max lisette: 86.7 cm/sec MV A max lisette: 145.6 cm/sec MV max P.0 mmHg MV P1/2t: 54.2 msec MV E/A: 0.58 MV V2 mean: 89.7 cm/sec MV dec slope: 469.0 cm/sec2 MV mean P.9 mmHg MVA(P1/2t): 4.1 cm2 MV V2 VTI: 24.5 cm Ao V2 max: 140.5 cm/sec LV V1 max: 85.2 cm/sec PA V2 max: 85.1 cm/sec Ao max P.9 mmHg LV V1 max P.9 mmHg Ao V2 mean: 90.5 cm/sec LV V1 mean P.6 mmHg Ao mean P.8 mmHg LV V1 mean: 59.4 cm/sec Ao V2 VTI: 27.7 cm LV V1 VTI: 18.4 cm ECHO/Echo Complete Interpretation Summary Normal LV size. Left ventricular systolic function is normal. The estimated ejection fraction is 65 %. Stage 1 diastolic dysfunction. Ordering Physician: Otoniel Delong Referring Physician: Brayan Arita Performed By: Jerrod Sargent RCS
== END | disposition home or self-care (01) ==
LOC: CVS 08:17
PROVIDERS: PCP Family Medicine; Referring Provider Internal Medicine Cardiovascular Disease; Visit Provider Internal Medicine Cardiovascular Disease
DX: R00.2 Palpitations (principal)
CPT/HCPCS: 93306

== ENCOUNTER → 2022-03-19 | Outpatient (CLI) | payer OTHER, MEDICARE, SELFPAY ==
[2022-03-19 17:36] LABS: Absolute Lymphocyte Count 2.34 X10^3/uL (0.83-4.51); Absolute Neutrophil Count 3.9 X10^3/uL (2.0-7.7); Basophil# 0.06 X10^3/uL; Basophil% 0.8 % (0-1); Eosinophils% 2.8 % (0-5); Hematocrit 38.8 % (37-47); Hemoglobin 12.7 g/dL (12.0-15.0); Lymphocyte # 2.34 X10^3/ul (0.83-4.51); Lymphocyte % 32.7 % (19-41); Mean Corp Hgb Conc 32.7 g/dL (32-36); Mean Corpuscular Hgb 30.4 pg (27.0-32.0); Mean Corpuscular Volume 92.8 fL (81-99); Mean Platelet Vol. 9.8 fl (6.2-12.0); Monocyte# 0.61 X10^3/uL; Monocyte% 8.5 % (0-10); NRBC Flagged by Analyzer 0 % (0-5); Neutrophil % 54.5 % (47-70); Platelet Count 265 K/mm3 (150-450); RBC Distribution Width CV 12.4 % (11.6-14.6); RBC Distribution Width SD 42.2 fl (35.1-43.9); Red Blood Count 4.18 M/mm3 (4.2-5.4); White Blood Count 7.2 K/mm3 (4.4-11.0)
[2022-03-19 18:02] LABS: ALB/GLOB Ratio 0.7 RATIO (0.9-2.4); AST(SGOT) 11 U/L (15-37); Alanine Aminotransfer ALT/SGPT 21 U/L (13-56); Alkaline Phosphatase 53 U/L (45-117); Anion Gap 6 (5-15); BUN 24 mg/dL (7-18); Chloride 101 mmol/L (98-107); Creatinine, Serum 1.09 mg/dL (0.55-1.02); EST Glomerular Filtration Rate 53 mL/min (>60); Est Glom Filt Rate - Afr Amer 64 mL/min (>60); Globulin 4.5 g/dL (2.2-4.2); Glucose 331 mg/dL (74-106); Protein, Total 7.5 g/dL (6.4-8.2); Sodium Level 134 mmol/L (136-145)
== END | disposition home or self-care (01) ==
LOC: MTLAB 14:56
PROVIDERS: PCP Family Medicine; Referring Provider Internal Medicine Rheumatology; Visit Provider Internal Medicine Rheumatology
DX: M06.4 Inflammatory polyarthropathy (principal); E11.319 Type 2 diabetes mellitus with unspecified diabetic retinopathy without macular edema; M18.0 Bilateral primary osteoarthritis of first carpometacarpal joints; G56.03 Carpal tunnel syndrome, bilateral upper limbs; K21.00 Gastro-esophageal reflux disease with esophagitis, without bleeding; I10 Essential (primary) hypertension; E78.5 Hyperlipidemia, unspecified; Z85.3 Personal history of malignant neoplasm of breast; Z85.41 Personal history of malignant neoplasm of cervix uteri; Z79.899 Other long term (current) drug therapy
CPT/HCPCS: 36415; 80053; 85025

== ENCOUNTER → 2022-03-24 | Outpatient (CLI) | payer OTHER, MEDICARE, SELFPAY ==
--- NOTE | 2022-03-24 16:01 | RAD_ITS ---
STUDY: X-RAY - LEFT KNEE REASON FOR EXAM: Left knee pain, no specific injury. TECHNIQUE: 4 view(s) of the knee. COMPARISON: Radiographs 03/13/2018. FINDINGS: Normal visualized distal femur. Normal visualized proximal tibia and fibula. Normal proximal tibiofibular articulation. There is joint space narrowing of the medial femorotibial compartment, increased since the prior study. Normal lateral femorotibial compartment. Normal patellofemoral articulation. There is vascular calcification. RAD/Knee 4 or More Views IMPRESSION: Arthrosis of the medial femorotibial compartment, increased since the prior study. Electronically Signed: Rickie Walsh MD at 7:06 EDT ,
== END | disposition home or self-care (01) ==
LOC: MTRAD 15:51
PROVIDERS: PCP Family Medicine; Referring Provider Internal Medicine Rheumatology; Visit Provider Internal Medicine Rheumatology
DX: M06.4 Inflammatory polyarthropathy (principal); E11.319 Type 2 diabetes mellitus with unspecified diabetic retinopathy without macular edema; M18.0 Bilateral primary osteoarthritis of first carpometacarpal joints; G56.03 Carpal tunnel syndrome, bilateral upper limbs; K21.00 Gastro-esophageal reflux disease with esophagitis, without bleeding; I10 Essential (primary) hypertension; E78.5 Hyperlipidemia, unspecified; Z85.3 Personal history of malignant neoplasm of breast; Z85.41 Personal history of malignant neoplasm of cervix uteri; Z79.899 Other long term (current) drug therapy
CPT/HCPCS: 73564

== ENCOUNTER 2022-05-02 09:47 | Emergency (ER) | payer OTHER, MEDICARE, SELFPAY ==
[2022-05-02 09:48] VITALS: BP 204/87; PULSE 98; RESP 16; TEMP 36.1; O2SAT 93; BMI 34.4
--- NOTE | 2022-05-02 10:22 | EDS_ITS ---
HPI History of Present Illness Chief Complaint: Upper Extremity Injury Informant: patient Onset/Context/Timing Onset: Days (2-3) Context: Gradual Onset Timing: Continuous Quality of Pain: - (sore/ache) Location: L elbow Current Severity: Moderate Maximum Severity: Moderate Worsened by: moving Relieved by: remaining still; took prednisone, no better Associated Symptoms Associated Symptoms: Negative for Parasthesia, Weakness or Loss of Funtion Narrative Narrative: Spontaneous onset of painful redness to the lateral aspect of the left elbow. No injury. No fevers or chills or other systemic symptoms although she states a couple days ago, she had some tingling in her hands and feet, and that all went away. It was bilateral simultaneously when it was there. She has never had this before. It hurts to bend at the elbow, she also is having some discomfort throughout the entire forearm and down to the wrist. She is right-hand dominant. She denies any bee stings, foreign bodies that she knows of, or anything else that would explain this. She is a diabetic. She is on no immunosuppressive medications but when I asked about specifics she states she took some leftover prednisone, 2 doses so far, after this started. [facility] Medical History Allergic rhinitis Anxiety Arthritis Asthma Back problem Breast cancer Breast lump Calcium deficiency Cancer Cardiology follow-up encounter Carpal tunnel syndrome Cataract Chronic bronchitis Chronic cough COPD (chronic obstructive pulmonary disease) Diabetes Dietary restriction Diverticulosis Easy bruising Essential hypertension Former smoker Gall stone Gastrointestinal problem GERD (gastroesophageal reflux disease) History of cervical cancer History of Clostridium difficile infection History of edema History of gastrostomy tube placement History of Holter monitoring History of stress test History of vaginal delivery Hives IBS (irritable bowel syndrome) Inflammatory polyarthritis Injury of head and neck Insulin pump titration Internal hemorrhoids Leg cramps Loss of consciousness MSSA (methicillin susceptible Staphylococcus aureus) pneumonia Neuropathy OAB (overactive bladder) Obesity Osteoarthritis Osteoporosis Pancreatitis Presence of insulin pump Recurrent infections Restless legs Rhabdomyolysis (04/2017) Seasonal allergies Shortness of breath on exertion Sleep apnea Urinary incontinence UTI (urinary tract infection) Vision problems Wears dentures Wears glasses Home Medications fluticasone propionate 50 mcg/actuation nasal spray,suspension 1 spray DAILY PRN Congestion 01/30/14 [History Last Taken 06/04/21] methotrexate sodium 2.5 mg tablet 20 mg PO TEJADA 04/16/17 [History Last Taken 05/31/21] albuterol sulfate 90 mcg/actuation aerosol inhaler (ProAir HFA) 2 puff inhalation Q4H PRN sob 06/05/21 [History Last Taken Unknown] escitalopram oxalate 10 mg tablet (Lexapro) 10 mg PO DAILY depression 06/05/21 [History Last Taken 1 Week Ago ~05/29/21] esomeprazole magnesium 40 mg capsule,delayed release (Nexium) 40 mg PO BID gerd 06/05/21 [History Last Taken 06/04/21] fluorometholone 0.1 % eye drops,suspension (FML Liquifilm) 2 drp LEFT EYE BID 06/05/21 [History Last Taken 06/04/21] fluticasone fur. 100 mcg-umeclid 62.5 mcg-vilant 25 mcg inhalat.powder (Trelegy Ellipta) 1 inh inhalation DAILY sob 06/05/21 [History Last Taken 1 Week Ago ~05/29/21] folic acid 1 mg tablet 2 mg PO DAILY supplement 06/05/21 [History Last Taken 06/04/21] hydrochlorothiazide 12.5 mg capsule 12.5 mg PO DAILY bp 06/05/21 [History Last Taken 06/04/21] linaclotide 72 mcg capsule (Linzess) 72 mcg PO DAILY IBS 06/05/21 [History Last Taken 06/04/21] losartan 100 mg tablet 100 mg PO DAILY BP 06/05/21 [History Last Taken 02/11/22] metaxalone 800 mg tablet 800 mg PO TID PRN MUSCLE cramps 06/05/21 [History Last Taken Unknown] metformin 500 mg tablet,extended release 24 hr 2,000 mg PO BREAKFAST DM 06/05/21 [History Last Taken 06/04/21] prednisone 10 mg tablet 10 mg PO DAILY PRN arthritis 06/05/21 [History Last Taken Unknown] sucralfate 1 gram tablet 1 g PO BID 11/04/21 [History Last Taken Unknown] ostomy supplies (Wolf Pyros Picturese Protect Barrier Wipes) #50 ea 02/02/22 [Rx Last Taken Unknown] aspirin 81 mg tablet,delayed release (Adult Low Dose Aspirin) 81 mg PO DAILY 02/05/22 [History Last Taken Unknown] atorvastatin 10 mg tablet 10 mg PO QHS 02/05/22 [History Last Taken Unknown] gabapentin 300 mg capsule 300 mg PO QHS 02/05/22 [History Last Taken Unknown] loratadine 10 mg tablet 10 mg PO DAILY 02/05/22 [History Last Taken Unknown] oxybutynin chloride 10 mg tablet,extended release 24 hr 10 mg PO BID 02/05/22 [History Last Taken Unknown] zoledronic acid 5 mg/100 mL in mannitol 5 %-water intravenous piggybck (Reclast) 1 ea .Route [id number] 02/05/22 [History Last Taken Unknown] flash glucose sensor (FreeStyle Mitzi 2 Sensor kit) #6 ea 02/08/22 [Rx Last Taken Unknown] insulin lispro-aabc 100 unit/mL subcutaneous solution (Lyumjev U-100 Insulin) 150 unit subcut .PUMP 02/08/22 [History Last Taken Unknown] metoprolol succinate 100 mg tablet,extended release 24 hr 100 mg PO DAILY 02/24/22 [History Last Taken Unknown] phentermine 37.5 mg tablet 30 mg PO DAILY #30 tabs 02/25/22 [Rx Last Taken Unknown] insulin degludec 200 unit/mL (3 mL) subcutaneous pen (Tresiba FlexTouch U-200 insulin) 30 unit (0.15 mL) subcut DAILY #15 mL 03/16/22 [Rx Last Taken Unknown] insulin pump cart,cont inf,BT (Omnipod Dash Pods (Gen 4) subcutaneous cartridge) #60 ea 04/05/22 [Rx Last Taken Unknown] cephalexin 500 mg capsule 500 mg PO Q6 #40 CAPSULES 05/02/22 [Rx Last Taken Unknown] hydrocodone-acetaminophen 5-325mg 5mg-325mg 1 tab PO Q6H PRN PRN Pain 2 days #8 TABLETS 05/02/22 [Rx Last Taken Unknown] Allergy/AdvReac Type Severity Reaction Status Date / Time JESENIA Inhibitors Allergy Intermediate Cough Verified 05/02/22 09:50 adhesive tape Allergy Intermediate blisters Verified 05/02/22 09:50 dulaglutide [From Trulicity] Allergy Intermediate Gastropares Verified 05/02/22 09:50 is chondroitin sulfate A Allergy Rash Verified 05/02/22 09:50 [From DuoVisc Visco Elastic] hyaluronic acid Allergy Rash Verified 05/02/22 09:50 [From DuoVisc Visco Elastic] NSAIDS (Non-Steroidal Allergy Other Verified 05/02/22 09:50 Anti-Inflamma Family History Other Alcohol abuse Anxiety Arthritis Asthma defect Cancer Diabetes High cholesterol Hypertension Seizures Surgical History History of appendectomy History of colonoscopy History of hysterectomy History of left mastectomy History of nasal cauterization Social History Smoking Status: Former smoker alcohol intake: current alcohol intake frequency: 0-2 drinks per day substance use type: does not use what type of physical activity do you participate in: none ROS ROS ED Constitutional Constitutional ED: Denies chills or fever(s) Musculoskeletal Musculoskeletal: Reports extremity pain; Denies neck pain Integumentary Reports rash; Denies Abrasions or wounds Neurologic Neurologic: Denies headache(s) or weakness EXAM Physical Exam Const Vital Signs: 05/02/22 09:48 Temperature 97.0 F L Temperature Source Temporal Pulse Rate 98 Respiratory Rate 16 Blood Pressure 204/87 H Blood Pressure Mean 126 Pulse Ox 93 Oxygen Delivery Method Room Air Positive well nourished and well developed General Appearance ED: well developed and NAD Neck full ROM and supple Back/Spine normal ROM and normal to inspection Extremity Extremity Narrative: Warm erythema lateral aspect of the left elbow over the radial head joint and the lateral epicondyles, and a little distal to this but not over the olecranon or medially. This area is very tender, both bony prominences and soft tissues. Painful flexion/extension of the elbow, painful supination pronation, painless flexion extension at the wrist only when she does not move the elbow. Strong pulse, wrist is normal without swelling or erythema or warmth, and neurologic exam is normal distally. Neuro oriented x3, CN's II-XII intact bilaterally, no focal motor deficits and no sensory deficits noted Sensorium / Orientation: alert Psych mental status grossly normal and thought process normal Skin no wounds Skin Narrative: Patch of erythema lateral left elbow see above MDM MDM MDM Narrative Medical decision making narrative: Three-view x-rays of the left elbow on my interpretation shows no acute bony abnormality and no large joint effusion. Radiology in agreement. Differential here includes cellulitis, but I am concerned about joint involvement of what over the processes whether it is inflammation due to gout or other etiology, or infection because she is having trouble moving the joint and pronating/supinating. She was amenable to an arthrocentesis which was performed see the procedure note. She has an allergy to NSAIDs, so we tried a dose of colchicine while she was awaiting test results. Her ESR and CRP are elevated, but she does not have a high white blood count. We were only able to get a small amount of fluid out of the joint, preliminary construction services technician review indicates absence of crystals, absence of bacteria on gram stain, very few white blood cells. She is able to move her elbow fairly well with short arc range of motion, she just has symptoms of the joint being involved but I think if it was a septic joint we would be seeing an effusion and she would not be able to move it nearly as well as she is clinically. For these reasons I do not think she needs to be admitted to the hospital, we are sending for a culture of the joint fluid, there was not enough fluid in order to perform a cell count, I am giving her a sling and prescription for analgesics as needed, as well as antibiotics Ancef being given here prior to discharge. Close a patient follow-up advised for review of the culture results and reevaluation clinically. She is comfortable with that plan. Additionally she is hyperglycemic in the 500s likely due to the prednisone in relation to her diabetes, we will give her a dose of insulin here prior to discharge for that. Procedures Other Procedures Procedure(s): Arthrocentesis left elbow: After informed consent, area was prepped with isopropyl no the space just lateral to the olecranon process, locally anesthetized with 0.5 cc 1% plain lidocaine, the joint was entered after chlorhexidine prep again as well as more isopropanol with a 1 inch 21-gauge needle, subsequently with the 1.5 inch 25-gauge needle because of not able to get a significant amount of fluid, after that the very small amount of of joint fluid was aspirated maybe 2 drops into the syringe. Patient tolerated well, no complications, dressed with bandage. Discharge Plan Triage Chief Complaint: Upper Extremity Injury ED Provider: Orion English Dx/Rx/DC Orders Clinical Impression: Elbow pain, left, Arthritis of elbow, left, Cellulitis of left upper extremity, Hyperglycemia due to type 2 diabetes mellitus Instructions: ED Arthralgia, ED Cellulitis Prescriptions: New hydrocodone-acetaminophen [hydrocodone-acetaminophen] 5-325 mg tablet 1 tab PO Q6H PRN PRN (Reason: Pain) 2 Days Qty: 8 0RF cephalexin [cephalexin] 500 mg capsule 500 mg PO Q6 Qty: 40 0RF No Action hydrochlorothiazide 12.5 mg capsule 12.5 mg PO DAILY sucralfate 1 gram tablet 1 g PO BID phentermine 37.5 mg tablet 30 mg PO DAILY Qty: 30 2RF Rx Instructions: must administer 30 minutes before or 1-2 hours after breakfast (DME) Allkare Protect Barrier Wipes Misc See Rx Instructions .Route Qty: 50 1RF Rx Instructions: every 3 days gabapentin 300 mg capsule 300 mg PO QHS metoprolol succinate 100 mg tablet extended release 24 hr 100 mg PO DAILY Tresiba FlexTouch U-200 200 unit/mL (3 mL) insulin pen 30 unit subcut DAILY Qty: 15 3RF oxybutynin chloride 10 mg tablet extended release 24hr 10 mg PO BID atorvastatin 10 mg tablet 10 mg PO QHS Label Comments: TAKE 1 TABLET BY MOUTH ONCE DAILY AT BEDTIME FOR CHOLESTEROL loratadine 10 mg tablet 10 mg PO DAILY Label Comments: TAKE 1 TABLET BY MOUTH ONCE DAILY zoledronic [id number] [Reclast] 5 mg/100 mL piggyback 1 ea .Route [id number] Rx Instructions: IV [id number] aspirin [Adult Low Dose Aspirin] 81 mg tablet,delayed release (DR/EC) 81 mg PO DAILY fluticasone propionate 1 SPRAY spray,suspension 1 spray NASAL DAILY PRN (Reason: Congestion) methotrexate sodium 2.5 MG tablet 20 mg PO TEJADA esomeprazole magnesium [Nexium] 40 mg capsule,delayed release(DR/EC) 40 mg PO BID fluorometholone [FML Liquifilm] 0.1 % Drops,Suspension 2 drp LEFT EYE BID folic acid 1 mg tablet 2 mg PO DAILY albuterol sulfate [ProAir HFA] 90 mcg/actuation Hfa Aerosol Inhaler 2 puff INHALATION Q4H PRN (Reason: sob) losartan 100 mg tablet 100 mg PO DAILY metformin 500 mg tablet extended release 24 hr 2,000 mg PO BREAKFAST escitalopram oxalate [Lexapro] 10 mg tablet 10 mg PO DAILY metaxalone 800 mg tablet 800 mg PO TID PRN (Reason: MUSCLE cramps) Linzess 72 mcg capsule 72 mcg PO DAILY Trelegy Ellipta 100-62.5-25 mcg blister with device 1 inh INHALATION DAILY prednisone 10 MG tablet 10 mg PO DAILY PRN (Reason: arthritis) Lyumjev U-100 Insulin 100 unit/mL solution 150 unit subcut .PUMP Rx Instructions: via insulin pump (DME) FreeStyle Mitzi 2 Sensor Kit See Rx Instructions .Route Qty: 6 3RF Rx Instructions: As directed (DME) Omnipod Dash Pods (Gen 4) Cartridge See Rx Instructions .ROUTE .MEDSUPPLY Qty: 60 1RF Rx Instructions: 1 pod every 36 hours Primary Care Provider: Brayan Arita Referrals: Brayan Arita MD [Primary Care Provider] - (2-3 days, call tomorrow morning for appointment) Disposition Disposition: Home, Self Care
--- NOTE | 2022-05-02 10:40 | RAD_ITS ---
STUDY: X-RAY - LEFT ELBOW REASON FOR EXAM: Female, 71 years old. NKI, red and swollen for a few days, pt. very painful TECHNIQUE: 3 view(s) of the elbow. COMPARISON: None. FINDINGS: Corticated ossicle and chronic irregularity of the lateral humeral epicondyle is indicative of old trauma to this region. There are no acute fractures or newly displaced fracture fragments. There is no evidence of osteomyelitis/septic joint. No soft tissue air is present. Mild enthesopathy of the medial humeral epicondyle is also present. Normal visualized radius and ulna. Normal radiocapitellar and ulnotrochlear articulations. Mild soft tissue prominence versus swelling noted around the elbow joint. RAD/Elbow min 3 Views IMPRESSION: 1. Mild soft tissue prominence versus swelling noted around the elbow joint. Electronically Signed: Chaz Sharpe MD at 11:12 EDT ,
[2022-05-02 10:48] LABS: Erythrocyte Sedimentation Rate 49 mm/hr (0-30)
[2022-05-02 10:50] LABS: Absolute Lymphocyte Count 1.57 X10^3/uL (0.83-4.51); Absolute Neutrophil Count 8.1 X10^3/uL (2.0-7.7); Basophil# 0.06 X10^3/uL; Basophil% 0.6 % (0-1); Eosinophil# 0.14 X10^3/uL; Eosinophils% 1.3 % (0-5); Hematocrit 41.7 % (37-47); Hemoglobin 13.7 g/dL (12.0-15.0); Lymphocyte # 1.57 X10^3/ul (0.83-4.51); Lymphocyte % 14.6 % (19-41); Mean Corp Hgb Conc 32.9 g/dL (32-36); Mean Corpuscular Hgb 30.8 pg (27.0-32.0); Mean Corpuscular Volume 93.7 fL (81-99); Mean Platelet Vol. 10.1 fl (6.2-12.0); Monocyte# 0.83 X10^3/uL; Monocyte% 7.7 % (0-10); NRBC Flagged by Analyzer 0 % (0-5); Neutrophil # 8.11 X10^3/uL (2.7-7.7); Neutrophil % 75.2 % (47-70); Platelet Count 252 K/mm3 (150-450); RBC Distribution Width CV 12.8 % (11.6-14.6); RBC Distribution Width SD 43.8 fl (35.1-43.9); Red Blood Count 4.45 M/mm3 (4.2-5.4); White Blood Count 10.8 K/mm3 (4.4-11.0)
[2022-05-02 11:26] LABS: Anion Gap 9 (5-15); BUN 20 mg/dL (7-18); BUN/Creat Ratio 16.5 RATIO (10-20); Calcium,Total 9.7 mg/dL (8.5-10.1); Chloride 93 mmol/L (98-107); Creatinine, Serum 1.21 mg/dL (0.55-1.02); EST Glomerular Filtration Rate 47 mL/min (>60); Est Glom Filt Rate - Afr Amer 57 mL/min (>60); Estimated Creatinine Clearance 34.71 ml/min; Glucose 576 mg/dL (74-106); Potassium 4.3 mmol/L (3.5-5.1); Sodium Level 129 mmol/L (136-145); Uric Acid 5.5 mg/dL (2.6-6.0)
[2022-05-02 12:22] LABS: Source- Body Fluid SYNOVIAL
[2022-05-02 12:23] LABS: Body Fluid QC Type(s) BF1Q
[2022-05-02] MEDS: Colchicine 0.6 MG TABLET PO (12:35)
[2022-05-02] MEDS: Lidocaine 1% (20 ml mdv) 20 ML Vial INFILT (12:35)
[2022-05-02] MEDS: Cefazolin 1 GM/50 ML BAG IV (13:56)
[2022-05-02 14:41] VITALS: BP 162/89; PULSE 99; RESP 12; O2SAT 93
[2022-05-03 13:19] LABS: Pathologist Review Reviewed
== END 2022-05-02 14:45 | disposition home or self-care (01) ==
PROVIDERS: Emergency Provider Emergency Medicine; PCP Family Medicine; Visit Provider Emergency Medicine
DX: M19.022 Primary osteoarthritis, left elbow (principal); J44.9 Chronic obstructive pulmonary disease, unspecified; E11.65 Type 2 diabetes mellitus with hyperglycemia; E11.40 Type 2 diabetes mellitus with diabetic neuropathy, unspecified; L03.114 Cellulitis of left upper limb; R79.82 Elevated C-reactive protein (CRP); I10 Essential (primary) hypertension; Z96.41 Presence of insulin pump (external) (internal); Z79.899 Other long term (current) drug therapy; Z87.891 Personal history of nicotine dependence
CPT/HCPCS: 20605; 20610; 73080; 80048; 84550; 85025; 85652; 86140; 87070; 87075; 87205; 89060; 96365; 99282; A4216

== ENCOUNTER → 2022-06-18 | Outpatient (CLI) | payer OTHER, MEDICARE, SELFPAY ==
[2022-06-18 14:57] LABS: Absolute Lymphocyte Count 2.32 X10^3/uL (0.83-4.51); Absolute Neutrophil Count 4.1 X10^3/uL (2.0-7.7); Basophil# 0.07 X10^3/uL; Eosinophil# 0.28 X10^3/uL; Eosinophils% 3.8 % (0-5); Hematocrit 39.4 % (37-47); Hemoglobin 13.1 g/dL (12.0-15.0); Lymphocyte # 2.32 X10^3/ul (0.83-4.51); Lymphocyte % 31.6 % (19-41); Mean Corp Hgb Conc 33.2 g/dL (32-36); Mean Corpuscular Hgb 31.1 pg (27.0-32.0); Mean Corpuscular Volume 93.6 fL (81-99); Mean Platelet Vol. 9.9 fl (6.2-12.0); Monocyte# 0.58 X10^3/uL; Monocyte% 7.9 % (0-10); NRBC Flagged by Analyzer 0 % (0-5); Neutrophil # 4.06 X10^3/uL (2.7-7.7); Neutrophil % 55.2 % (47-70); Platelet Count 279 K/mm3 (150-450); RBC Distribution Width CV 13.1 % (11.6-14.6); RBC Distribution Width SD 44.5 fl (35.1-43.9); Red Blood Count 4.21 M/mm3 (4.2-5.4); White Blood Count 7.4 K/mm3 (4.4-11.0)
[2022-06-18 15:15] LABS: ALB/GLOB Ratio 0.7 RATIO (0.9-2.4); AST(SGOT) 12 U/L (15-37); Alanine Aminotransfer ALT/SGPT 14 U/L (13-56); Albumin, Serum 3.1 g/dL (3.2-5.0); Alkaline Phosphatase 52 U/L (45-117); Anion Gap 7 (5-15); BUN 19 mg/dL (7-18); BUN/Creat Ratio 20.9 RATIO (10-20); Calcium,Total 9.1 mg/dL (8.5-10.1); Chloride 102 mmol/L (98-107); Creatinine, Serum 0.91 mg/dL (0.55-1.02); EST Glomerular Filtration Rate 65 mL/min (>60); Est Glom Filt Rate - Afr Amer 79 mL/min (>60); Globulin 4.5 g/dL (2.2-4.2); Glucose 282 mg/dL (74-106); Protein, Total 7.6 g/dL (6.4-8.2); Sodium Level 138 mmol/L (136-145)
== END | disposition home or self-care (01) ==
PROVIDERS: PCP Family Medicine; Referring Provider Internal Medicine Rheumatology; Visit Provider Internal Medicine Rheumatology
DX: M18.0 Bilateral primary osteoarthritis of first carpometacarpal joints (principal); M06.4 Inflammatory polyarthropathy; E11.319 Type 2 diabetes mellitus with unspecified diabetic retinopathy without macular edema; G56.03 Carpal tunnel syndrome, bilateral upper limbs; K21.00 Gastro-esophageal reflux disease with esophagitis, without bleeding; I10 Essential (primary) hypertension; E78.5 Hyperlipidemia, unspecified; Z85.3 Personal history of malignant neoplasm of breast; Z85.41 Personal history of malignant neoplasm of cervix uteri; Z79.899 Other long term (current) drug therapy
CPT/HCPCS: 36415; 80053; 85025

== ENCOUNTER → 2022-09-01 | Outpatient (CLI) | payer BC, SELFPAY ==
--- NOTE | 2022-09-01 15:17 | NEURO ---
NCS and/or EMG Patient Report Ordering Doctor: Rachel Johnson DATE OF SERVICE: 09/01/22 Manisha presents for electrodiagnostic testing of the upper limbs. She has complaints of numbness and tingling in both hands. Electrodiagnostic Findings: Median motor nerve demonstrates prolonged distal latency bilaterally with normal amplitudes and reduced conduction velocities. Normal ulnar motor response bilaterally. Borderline prolonged median F wave bilaterally. Prolonged median sensory latency at the wrist bilaterally. Prolonged left median palmar latency normal ulnar and radial sensory responses. Needle EMG testing reveals no evidence of denervation with normal motor unit action potentials. Electrodiagnostic assessment: This is an abnormal study. 1. Electrodiagnostic findings suggestive of bilateral median mononeuropathy. This consistent with a moderate bilateral carpal tunnel syndrome.
== END | disposition home or self-care (01) ==
LOC: PSN 13:52
PROVIDERS: PCP Family Medicine; Visit Provider Internal Medicine Rheumatology
DX: M06.4 Inflammatory polyarthropathy (principal); E11.319 Type 2 diabetes mellitus with unspecified diabetic retinopathy without macular edema; M18.0 Bilateral primary osteoarthritis of first carpometacarpal joints; G56.03 Carpal tunnel syndrome, bilateral upper limbs; K21.00 Gastro-esophageal reflux disease with esophagitis, without bleeding; I10 Essential (primary) hypertension; E78.5 Hyperlipidemia, unspecified; Z85.3 Personal history of malignant neoplasm of breast; Z85.41 Personal history of malignant neoplasm of cervix uteri; Z79.899 Other long term (current) drug therapy
CPT/HCPCS: 95886; 95913

== ENCOUNTER → 2022-09-15 | Outpatient (CLI) | payer MEDICARE, SELFPAY ==
[2022-09-15 18:03] LABS: Absolute Lymphocyte Count 2.02 X10^3/uL (0.83-4.51); Absolute Neutrophil Count 4.8 X10^3/uL (2.0-7.7); Basophil# 0.07 X10^3/uL; Basophil% 0.9 % (0-1); Eosinophil# 0.23 X10^3/uL; Eosinophils% 2.9 % (0-5); Hemoglobin 12.2 g/dL (12.0-15.0); Lymphocyte # 2.02 X10^3/ul (0.83-4.51); Lymphocyte % 25.6 % (19-41); Mean Corp Hgb Conc 32.1 g/dL (32-36); Mean Corpuscular Hgb 30.7 pg (27.0-32.0); Mean Corpuscular Volume 95.5 fL (81-99); Mean Platelet Vol. 9.3 fl (6.2-12.0); Monocyte# 0.71 X10^3/uL; NRBC Flagged by Analyzer 0 % (0-5); Neutrophil # 4.78 X10^3/uL (2.7-7.7); Neutrophil % 60.7 % (47-70); Platelet Count 282 K/mm3 (150-450); RBC Distribution Width CV 13.2 % (11.6-14.6); RBC Distribution Width SD 44.9 fl (35.1-43.9); Red Blood Count 3.98 M/mm3 (4.2-5.4); White Blood Count 7.9 K/mm3 (4.4-11.0)
[2022-09-15 18:28] LABS: ALB/GLOB Ratio 0.7 RATIO (0.9-2.4); AST(SGOT) 17 U/L (15-37); Alanine Aminotransfer ALT/SGPT 18 U/L (13-56); Albumin, Serum 3.1 g/dL (3.2-5.0); Alkaline Phosphatase 52 U/L (45-117); Anion Gap 8 (5-15); BUN 16 mg/dL (7-18); BUN/Creat Ratio 15.2 RATIO (10-20); Calcium,Total 8.8 mg/dL (8.5-10.1); Chloride 101 mmol/L (98-107); Creatinine, Serum 1.05 mg/dL (0.55-1.02); EST Glomerular Filtration Rate 55 mL/min (>60); Est Glom Filt Rate - Afr Amer 67 mL/min (>60); Globulin 4.2 g/dL (2.2-4.2); Glucose 212 mg/dL (74-106); Potassium 4.3 mmol/L (3.5-5.1); Protein, Total 7.3 g/dL (6.4-8.2); Sodium Level 138 mmol/L (136-145)
== END | disposition home or self-care (01) ==
PROVIDERS: PCP Family Medicine; Referring Provider Internal Medicine Rheumatology; Visit Provider Internal Medicine Rheumatology
DX: M06.4 Inflammatory polyarthropathy (principal); E11.319 Type 2 diabetes mellitus with unspecified diabetic retinopathy without macular edema; M18.0 Bilateral primary osteoarthritis of first carpometacarpal joints; G56.03 Carpal tunnel syndrome, bilateral upper limbs; K21.00 Gastro-esophageal reflux disease with esophagitis, without bleeding; I10 Essential (primary) hypertension; E78.5 Hyperlipidemia, unspecified; Z85.3 Personal history of malignant neoplasm of breast; Z85.41 Personal history of malignant neoplasm of cervix uteri; Z79.899 Other long term (current) drug therapy
CPT/HCPCS: 36415; 80053; 85025

== ENCOUNTER 2022-12-04 03:04 | Emergency (ER) | payer MEDICARE, SELFPAY ==
[2022-12-04 03:04] VITALS: BP 175/85; PULSE 100; RESP 19; TEMP 36.4; O2SAT 96; BMI 37.7
--- NOTE | 2022-12-04 03:27 | EKG12_ITS ---
Test Reason : DYSRHYTHMIA Blood Pressure : / mmHG Vent. Rate : 111 BPM Atrial Rate : 111 BPM P-R Int : 172 ms QRS Dur : 088 ms QT Int : 330 ms P-R-T Axes : 039 -08 029 degrees QTc Int : 448 ms Sinus tachycardia Inferior infarct , age undetermined Abnormal ECG Confirmed by MALISSA ORTIZ, ZEHRA ([id number]), general expeditor JUAN HORTON ([id number]) on 12/06/2022 11:08:49 AM Referred By: ANTOINETTE Confirmed By:ZEHRA LEONARDO MD
--- NOTE | 2022-12-04 03:27 | RAD_ITS ---
INDICATION: chest pain EXAMINATION/TECHNIQUE: X-RAY - XR Chest 1 View COMPARISON: 05/03/2017 FINDINGS: LINES/DEVICES: None. LUNGS: No consolidation, edema or effusion. No pneumothorax. MEDIASTINUM AND CARDIOVASCULAR STRUCTURES: Cardiac silhouette not enlarged. Central airways and mediastinal contour are unremarkable. BONES AND SOFT TISSUES: Unremarkable. RAD/Chest 1 View (Portable) IMPRESSION: No acute cardiopulmonary disease. Electronically Signed: Lee Ludwig MD at 4:36 EDT ,
[2022-12-04 03:38] LABS: Absolute Lymphocyte Count 2.53 X10^3/uL (0.83-4.51); Absolute Neutrophil Count 7.6 X10^3/uL (2.0-7.7); Basophil# 0.12 X10^3/uL; Basophil% 1.1 % (0-1); Eosinophil# 0.18 X10^3/uL; Eosinophils% 1.6 % (0-5); Hematocrit 42.6 % (37-47); Hemoglobin 13.9 g/dL (12.0-15.0); Lymphocyte # 2.53 X10^3/ul (0.83-4.51); Lymphocyte % 22.3 % (19-41); Mean Corp Hgb Conc 32.6 g/dL (32-36); Mean Corpuscular Hgb 31.4 pg (27.0-32.0); Mean Corpuscular Volume 96.2 fL (81-99); Mean Platelet Vol. 10.6 fl (6.2-12.0); Monocyte# 0.72 X10^3/uL; Monocyte% 6.3 % (0-10); NRBC Flagged by Analyzer 0 % (0-5); Neutrophil # 7.62 X10^3/uL (2.7-7.7); Neutrophil % 67.2 % (47-70); POSITIVE COUNT YES; RBC Distribution Width CV 12.8 % (11.6-14.6); RBC Distribution Width SD 45.3 fl (35.1-43.9); Red Blood Count 4.43 M/mm3 (4.2-5.4); White Blood Count 11.3 K/mm3 (4.4-11.0)
[2022-12-04] MEDS: Ondansetron 4 MG/2 ML Vial IV (03:42)
[2022-12-04] MEDS: Orphenadrine 60 MG/2 ML Ampul IV (03:43)
[2022-12-04] MEDS: Morphine 4 MG/ML Syringe IV (03:46)
[2022-12-04] MEDS: 0.9% Normal Saline 1,000 ML 999 ML IV (03:49)
[2022-12-04 04:02] LABS: Anion Gap 6 (5-15); BUN 13 mg/dL (7-18); BUN/Creat Ratio 11.2 RATIO (10-20); CPK Total, Creatine Kinase 145 U/L (26-192); Calcium,Total 9.7 mg/dL (8.5-10.1); Chloride 102 mmol/L (98-107); Creatinine, Serum 1.16 mg/dL (0.55-1.02); EST Glomerular Filtration Rate 49 mL/min (>60); Est Glom Filt Rate - Afr Amer 59 mL/min (>60); Estimated Creatinine Clearance 35.69 ml/min; Glucose 98 mg/dL (74-106); Magnesium 1.9 mg/dL (1.6-2.6); Potassium 3.4 mmol/L (3.5-5.1); Sodium Level 132 mmol/L (136-145); Troponin-I HS 6 pg/mL (3.0-54.0)
[2022-12-04 04:06] LABS: Differential Indicated SCAN CRITERIA MET
[2022-12-04 04:28] LABS: Platelet Morphology CLUMPED
[2022-12-04 04:30] LABS: Platelet Estimate ADEQUATE (ADEQ)
[2022-12-04 05:10] VITALS: BP 147/66; PULSE 96; RESP 15; O2SAT 99
--- NOTE | 2022-12-04 05:10 | EX.ED.DYSGE1 ---
HPI History of Present Illness Chief Complaint: General Illness Narrative Narrative: Patient is a 72-year-old female with past medical history of chronic kidney disease hypertension and type 2 diabetes. She states that she got her second Shingrix shot yesterday. She states that this evening she began feeling subjective fevers and chills with muscle spasms and nausea. She states that symptoms came on quickly and with the sudden onset and severity she was concerned and therefore comes to the hospital for evaluation. [facility] Medical History (Updated 12/07/22 @ 01:[address] Omar Arambula, DO) Allergic rhinitis Anxiety Arthritis Asthma Back problem Breast cancer Breast lump Calcium deficiency Cancer Cardiology follow-up encounter Carpal tunnel syndrome Cataract Chronic bronchitis Chronic cough COPD (chronic obstructive pulmonary disease) Diabetes Dietary restriction Diverticulosis Easy bruising Essential hypertension Former smoker Gall stone Gastrointestinal problem GERD (gastroesophageal reflux disease) History of cervical cancer History of Clostridium difficile infection History of edema History of gastrostomy tube placement History of Holter monitoring History of stress test History of vaginal delivery Hives IBS (irritable bowel syndrome) Inflammatory polyarthritis Injury of head and neck Internal hemorrhoids Leg cramps Loss of consciousness MSSA (methicillin susceptible Staphylococcus aureus) pneumonia Neuropathy OAB (overactive bladder) Obesity Osteoarthritis Osteoporosis Pancreatitis Presence of insulin pump Recurrent infections Restless legs Rhabdomyolysis (04/2017) Seasonal allergies Shortness of breath on exertion Sleep apnea Urinary incontinence UTI (urinary tract infection) Vision problems Wears dentures Wears glasses Home Medications fluticasone propionate 50 mcg/actuation nasal spray,suspension 1 spray DAILY PRN Congestion 01/30/14 [History Last Taken 06/04/21] methotrexate sodium 2.5 mg tablet 20 mg PO TEJADA 04/16/17 [History Last Taken 05/31/21] albuterol sulfate 90 mcg/actuation aerosol inhaler (ProAir HFA) 2 puff inhalation Q4H PRN sob 06/05/21 [History Last Taken Unknown] escitalopram oxalate 10 mg tablet (Lexapro) 10 mg PO DAILY depression 06/05/21 [History Last Taken 1 Week Ago ~05/29/21] fluorometholone 0.1 % eye drops,suspension (FML Liquifilm) 2 drp LEFT EYE BID 06/05/21 [History Last Taken 06/04/21] fluticasone fur. 100 mcg-umeclid 62.5 mcg-vilant 25 mcg inhalat.powder (Trelegy Ellipta) 1 inh inhalation DAILY sob 06/05/21 [History Last Taken 1 Week Ago ~05/29/21] folic acid 1 mg tablet 2 mg PO DAILY supplement 06/05/21 [History Last Taken 06/04/21] hydrochlorothiazide 12.5 mg capsule 12.5 mg PO DAILY bp 06/05/21 [History Last Taken 06/04/21] losartan 100 mg tablet 100 mg PO DAILY BP 06/05/21 [History Last Taken 02/11/22] metaxalone 800 mg tablet 800 mg PO TID PRN MUSCLE cramps 06/05/21 [History Last Taken Unknown] prednisone 10 mg tablet 10 mg PO DAILY PRN arthritis 06/05/21 [History Last Taken Unknown] sucralfate 1 gram tablet 1 g PO BID 11/04/21 [History Last Taken Unknown] ostomy supplies ([employer] Protect Barrier Wipes) #50 ea 02/02/22 [Rx Last Taken Unknown] aspirin 81 mg tablet,delayed release (Adult Low Dose Aspirin) 81 mg PO DAILY 02/05/22 [History Last Taken Unknown] atorvastatin 10 mg tablet 10 mg PO QHS 02/05/22 [History Last Taken Unknown] gabapentin 300 mg capsule 300 mg PO QHS 02/05/22 [History Last Taken Unknown] oxybutynin chloride 10 mg tablet,extended release 24 hr 10 mg PO BID 02/05/22 [History Last Taken Unknown] zoledronic acid 5 mg/100 mL in mannitol 5 %-water intravenous piggybck (Reclast) 1 ea .Route [id number] 02/05/22 [History Last Taken Unknown] metoprolol succinate 100 mg tablet,extended release 24 hr 100 mg PO DAILY 02/24/22 [History Last Taken Unknown] phentermine 37.5 mg tablet 30 mg PO DAILY #30 tabs 09/10/22 [Rx Last Taken Unknown] Humulin R U-500 (Conc) Kwikpen 500 unit/mL (3 mL) subcutaneous (insulin regular hum U-500 conc) 75 unit (0.15 mL) subcut .tid with meals #15 mL 11/26/22 [Rx Last Taken Unknown] esomeprazole magnesium 40 mg capsule,delayed release (Nexium) 40 mg PO DAILY gerd 11/26/22 [History Last Taken Unknown] loratadine 10 mg tablet 10 mg PO DAILY PRN 11/26/22 [History Last Taken Unknown] metformin 500 mg tablet,extended release 24 hr 500 mg PO BREAKFAST DM 11/26/22 [History Last Taken Unknown] pen needle, diabetic 32 gauge x 5/32 (BD Ultra-Fine Tish Pen Needle) #100 ea 11/26/22 [Rx Last Taken Unknown] diazepam 2 mg tablet (Valium) 2 mg PO TID PRN muscle spasm 5 days #15 tabs 12/04/22 [Rx Last Taken Unknown] ondansetron 4 mg disintegrating tablet 4 mg PO TID PRN nausea and vomiting #21 tabs 12/04/22 [Rx Last Taken Unknown] Allergy/AdvReac Type Severity Reaction Status Date / Time JESENIA Inhibitors Allergy Intermediate Cough Verified 12/04/22 03:07 adhesive tape Allergy Intermediate blisters Verified 12/04/22 03:07 dulaglutide [From Trulicity] Allergy Intermediate Gastropares Verified 12/04/22 03:07 is chondroitin sulfate A Allergy Rash Verified 12/04/22 03:07 [From DuoVisc Visco Elastic] hyaluronic acid Allergy Rash Verified 12/04/22 03:07 [From DuoVisc Visco Elastic] NSAIDS (Non-Steroidal Allergy Other Verified 12/04/22 03:07 Anti-Inflamma Family History Other Alcohol abuse Anxiety Arthritis Asthma defect Cancer Diabetes High cholesterol Hypertension Seizures Surgical History History of appendectomy History of colonoscopy History of hysterectomy History of left mastectomy History of nasal cauterization Social History Smoking Status: Former smoker alcohol intake: current alcohol intake frequency: 0-2 drinks per day substance use type: does not use what type of physical activity do you participate in: none ROS ROS ED Constitutional Constitutional ED: Reports chills, fever(s) and subjective ENT ENT ED: Denies sore throat Cardiovascular Cardiovascular: Denies chest pain Respiratory/Chest Respiratory/Chest: Denies cough or dyspnea Gastrointestinal Gastrointestinal: Reports nausea; Denies abdominal pain, diarrhea or vomiting Genitourinary Genitourinary ED: Denies dysuria Musculoskeletal Musculoskeletal: Reports myalgias Integumentary Denies rash Neurologic Neurologic: Denies headache(s) Hematologic/Lymphatic Hematologic/Lymphatic: Denies easy bleeding or easy bruising EXAM Physical Exam Const Vital Signs: 12/04/22 03:04 12/04/22 03:07 Temperature 97.6 F L Temperature Source Temporal Pulse Rate 100 Respiratory Rate 19 H Respiratory Effort Normal Non-Labored Respiratory Pattern Normal Blood Pressure 175/85 H Blood Pressure Mean 115 Pulse Ox 96 Oxygen Delivery Method Room Air Positive well nourished, well developed and obese General Appearance ED: well developed Nutritional Appearance: obese HEENT Reports moist mucous membranes HEENT Narrative: No tongue or lip swelling no oral lesions no airway edema or compromise Eyes PERRL and EOMs intact bilaterally Neck supple Neck Narrative: No nuchal rigidity or meningeal signs noted Resp normal respiratory effort and clear to auscultation bilaterally Resp Narrative: No signs of respiratory distress Cardio regular rate and regular rhythm Rate: other Other Details: Radial pulses are plus 2 out of 4 bilaterally are equal and symmetric GI normal to inspection, nondistended, normoactive bowel sounds, non-tender, non-distended and no masses GI Narrative: No voluntary guarding or rigidity no pulsatile mass Auscultation: normoactive bowel sounds Palpation: soft Extremity normal to inspection Extremity Narrative: No asymmetric edema no pitting edema negative Homans' sign bilaterally Neuro oriented x3 and CN's II-XII intact bilaterally Sensorium / Orientation: alert Psych mental status grossly normal Skin no rashes or lesions noted MDM MDM MDM Narrative Medical decision making narrative: Patient presented to the ER slightly hypertensive and at the upper limit of normal for heart rate. With symptoms coming on suddenly and presenting as nausea with muscle spasm and her medical history there is concern this could be acute coronary syndrome or that patient could have developed a pneumonia or spontaneous pneumothorax or pleural effusion. There is also concern that symptoms could be related to acute kidney injury or severe electrolyte derangement such as hyponatremia or hypo or hyperkalemia. Secondary to his basic blood work with chest x-ray were ordered. Labs revealed no clinically significant findings and troponin was normal at 6 and EKG was sinus rhythm going against acute coronary syndrome. Chest x-ray revealed no acute lung pathology either. Therefore based on the symptoms of muscle tension and spasm along with upset stomach but overall negative work-up I do feel this is adverse reaction to the Shingrix injection which can occur frequently in someone her age with the second injection. After the patient was medicated she had improvement to her vitals and improvement of symptoms and remained in no acute respiratory distress. Therefore with negative work-up and improvement of symptoms patient is otherwise safe for discharge with symptomatic care History & Record Review Discussion w/independent historian: Patient Lab Data Attestation: I reviewed the patient's lab results. Labs: Laboratory Results - last 24 hr 12/04/22 12/04/22 03:16 03:16 WBC 11.3 H RBC 4.43 Hgb 13.9 Hct 42.6 MCV 96.2 MCH 31.4 MCHC 32.6 RDW Std Deviation 45.3 H RDW Coeff of Tom 12.8 Plt Count TNP MPV 10.6 Immature Gran % (Auto) 1.500 H Neut % (Auto) 67.2 Lymph % (Auto) 22.3 Hubbard % (Auto) 6.3 Eos % (Auto) 1.6 Baso % (Auto) 1.1 H Absolute Neuts (auto) 7.6 Absolute Lymphs (auto) 2.53 Nucleated RBC % 0 Platelet Estimate ADEQUATE Plt Morphology Comment CLUMPED Sodium 132 L Potassium 3.4 L Chloride 102 Carbon Dioxide 24.0 Anion Gap 6 BUN 13 Creatinine 1.16 H Estim Creat Clear Calc 35.69 Est GFR (MDRD) Af Amer 59 L Est GFR (MDRD) Non-Af 49 L BUN/Creatinine Ratio 11.2 Glucose 98 Calcium 9.7 Magnesium 1.9 Total Creatine Kinase 145 Troponin I High Sens 6 Radiography Diagnostic Testing: Clinical Impression(s) from Imaging Studies Chest X-Ray 12/04/22 03:27 IMPRESSION: No acute cardiopulmonary disease. Electronically Signed: Lee Ludwig MD at 4:36 EDT , Chest x-ray as interpreted by the emergency medicine physician reveals no acute infiltrate pneumothorax or pleural effusion Discharge Plan Triage Chief Complaint: General Illness ED Provider: Omar Arambula Dx/Rx/DC Orders Clinical Impression: Adverse drug reaction, Muscle spasm, Diabetes mellitus, type II, Essential hypertension Instructions: ED Drug Reaction, Other, ED Muscle Spasm Prescriptions: New ondansetron 4 mg tablet,disintegrating 4 mg PO TID PRN (Reason: nausea and vomiting) Qty: 21 0RF diazepam [Valium] 2 mg tablet 2 mg PO TID PRN (Reason: muscle spasm) 5 Days Qty: 15 0RF No Action hydrochlorothiazide 12.5 mg capsule 12.5 mg PO DAILY sucralfate 1 gram tablet 1 g PO BID (DME) [employer] Protect Barrier Wipes Misc See Rx Instructions .Route Qty: 50 1RF Rx Instructions: every 3 days gabapentin 300 mg capsule 300 mg PO QHS metoprolol succinate 100 mg tablet extended release 24 hr 100 mg PO DAILY oxybutynin chloride 10 mg tablet extended release 24hr 10 mg PO BID atorvastatin 10 mg tablet 10 mg PO QHS Label Comments: TAKE 1 TABLET BY MOUTH ONCE DAILY AT BEDTIME FOR CHOLESTEROL zoledronic [id number] [Reclast] 5 mg/100 mL piggyback 1 ea .Route [id number] Rx Instructions: IV [id number] aspirin [Adult Low Dose Aspirin] 81 mg tablet,delayed release (DR/EC) 81 mg PO DAILY loratadine 10 mg tablet 10 mg PO DAILY PRN Label Comments: TAKE 1 TABLET BY MOUTH ONCE DAILY Humulin R U-500 (Conc) Kwikpen 500 unit/mL (3 mL) insulin pen 75 unit subcut .tid with meals Qty: 15 5RF (DME) pen needle, diabetic [BD Ultra-Fine Tish Pen Needle] 32 gauge x 5/32 needle See Rx Instructions .ROUTE .MEDSUPPLY Qty: 100 5RF Rx Instructions: tid metformin 500 mg tablet extended release 24 hr 500 mg PO BREAKFAST fluticasone propionate 1 SPRAY spray,suspension 1 spray NASAL DAILY PRN (Reason: Congestion) methotrexate sodium 2.5 MG tablet 20 mg PO TEJADA fluorometholone [FML Liquifilm] 0.1 % Drops,Suspension 2 drp LEFT EYE BID folic acid 1 mg tablet 2 mg PO DAILY albuterol sulfate [ProAir HFA] 90 mcg/actuation Hfa Aerosol Inhaler 2 puff INHALATION Q4H PRN (Reason: sob) losartan 100 mg tablet 100 mg PO DAILY escitalopram oxalate [Lexapro] 10 mg tablet 10 mg PO DAILY metaxalone 800 mg tablet 800 mg PO TID PRN (Reason: MUSCLE cramps) Trelegy Ellipta 100-62.5-25 mcg blister with device 1 inh INHALATION DAILY prednisone 10 MG tablet 10 mg PO DAILY PRN (Reason: arthritis) esomeprazole magnesium [Nexium] 40 mg capsule,delayed release(DR/EC) 40 mg PO DAILY phentermine 37.5 mg tablet 30 mg PO DAILY Qty: 30 2RF Rx Instructions: must administer 30 minutes before or 1-2 hours after breakfast Primary Care Provider: Brayan Arita Referrals: Brayan Arita MD [Primary Care Provider] - Activity Restrictions/Additional Instructions: Your work-up today did not reveal any signs of heart damage or infection. I believe your symptoms of nausea and muscle aches are related to adverse reactions from your recent shingles injection. These symptoms should resolve on their own in the next 1 to 3 days. Take the prescribed medication as directed to help control symptoms and return to the ER should you have any further concern Disposition Disposition: Home, Self Care Discharge Date/Time: 12/04/22 07:16
== END 2022-12-04 07:16 | disposition home or self-care (01) ==
PROVIDERS: Emergency Provider Emergency Medicine; PCP Family Medicine; Visit Provider Emergency Medicine
DX: M62.838 Other muscle spasm (principal); J44.9 Chronic obstructive pulmonary disease, unspecified; E11.40 Type 2 diabetes mellitus with diabetic neuropathy, unspecified; E11.22 Type 2 diabetes mellitus with diabetic chronic kidney disease; T50.Z95A Adverse effect of other vaccines and biological substances, initial encounter; I12.9 Hypertensive chronic kidney disease with stage 1 through stage 4 chronic kidney disease, or unspecified chronic kidney disease; Z87.891 Personal history of nicotine dependence; N18.9 Chronic kidney disease, unspecified; E66.9 Obesity, unspecified
CPT/HCPCS: 71045; 80048; 82550; 83735; 84484; 85025; 93005; 96361; 96374; 96375; 99284; J7030; A4216; J2405

== ENCOUNTER → 2022-12-10 | Outpatient (CLI) | payer MEDICARE, SELFPAY ==
[2022-12-10 15:35] LABS: Absolute Lymphocyte Count 1.98 X10^3/uL (0.83-4.51); Absolute Neutrophil Count 5.5 X10^3/uL (2.0-7.7); Basophil# 0.08 X10^3/uL; Basophil% 0.9 % (0-1); Eosinophil# 0.22 X10^3/uL; Eosinophils% 2.6 % (0-5); Hematocrit 40.4 % (37-47); Lymphocyte # 1.98 X10^3/ul (0.83-4.51); Lymphocyte % 23.3 % (19-41); Mean Corp Hgb Conc 32.2 g/dL (32-36); Mean Corpuscular Hgb 31.2 pg (27.0-32.0); Mean Corpuscular Volume 96.9 fL (81-99); Mean Platelet Vol. 9.7 fl (6.2-12.0); Monocyte# 0.61 X10^3/uL; Monocyte% 7.2 % (0-10); NRBC Flagged by Analyzer 0 % (0-5); Neutrophil # 5.48 X10^3/uL (2.7-7.7); Neutrophil % 64.7 % (47-70); Platelet Count 291 K/mm3 (150-450); RBC Distribution Width CV 13.2 % (11.6-14.6); RBC Distribution Width SD 46.6 fl (35.1-43.9); Red Blood Count 4.17 M/mm3 (4.2-5.4); White Blood Count 8.5 K/mm3 (4.4-11.0)
[2022-12-10 16:23] LABS: ALB/GLOB Ratio 0.6 RATIO (0.9-2.4); AST(SGOT) 18 U/L (15-37); Alanine Aminotransfer ALT/SGPT 27 U/L (13-56); Albumin, Serum 3.1 g/dL (3.2-5.0); Alkaline Phosphatase 66 U/L (45-117); Anion Gap 6 (5-15); BUN 19 mg/dL (7-18); BUN/Creat Ratio 16.1 RATIO (10-20); Calcium,Total 9.1 mg/dL (8.5-10.1); Chloride 98 mmol/L (98-107); Creatinine, Serum 1.18 mg/dL (0.55-1.02); EST Glomerular Filtration Rate 48 mL/min (>60); Est Glom Filt Rate - Afr Amer 58 mL/min (>60); Globulin 5.1 g/dL (2.2-4.2); Glucose 463 mg/dL (74-106); Potassium 3.8 mmol/L (3.5-5.1); Protein, Total 8.2 g/dL (6.4-8.2); Sodium Level 132 mmol/L (136-145)
== END | disposition home or self-care (01) ==
LOC: MTLAB 12:39
PROVIDERS: PCP Family Medicine; Referring Provider Internal Medicine Rheumatology; Visit Provider Internal Medicine Rheumatology
DX: M06.4 Inflammatory polyarthropathy (principal); Z79.899 Other long term (current) drug therapy
CPT/HCPCS: 36415; 80053; 85025

== ENCOUNTER → 2023-01-11 | Outpatient (CLI) | payer MEDICARE, SELFPAY ==
[2023-01-11 13:04] LABS: ALB/GLOB Ratio 0.6 RATIO (0.9-2.4); AST(SGOT) 22 U/L (15-37); Alanine Aminotransfer ALT/SGPT 29 U/L (13-56); Alkaline Phosphatase 70 U/L (45-117); Anion Gap 8 (5-15); BUN 13 mg/dL (7-18); BUN/Creat Ratio 13.7 RATIO (10-20); Calcium,Total 8.9 mg/dL (8.5-10.1); Chloride 104 mmol/L (98-107); Creatinine, Serum 0.95 mg/dL (0.55-1.02); EST Glomerular Filtration Rate 62 mL/min (>60); Est Glom Filt Rate - Afr Amer 75 mL/min (>60); Globulin 4.7 g/dL (2.2-4.2); Glucose 101 mg/dL (74-106); Potassium 3.6 mmol/L (3.5-5.1); Protein, Total 7.7 g/dL (6.4-8.2); Sodium Level 140 mmol/L (136-145)
== END | disposition home or self-care (01) ==
LOC: MTLAB 10:18
PROVIDERS: PCP Family Medicine; Referring Provider Internal Medicine Rheumatology; Visit Provider Internal Medicine Rheumatology
DX: M06.4 Inflammatory polyarthropathy (principal); Z79.899 Other long term (current) drug therapy; M25.562 Pain in left knee
CPT/HCPCS: 36415; 80053

== ENCOUNTER → 2023-03-01 | Outpatient (CLI) | payer MEDICARE, SELFPAY | END | disposition home or self-care (01) | LOC: SL 19:55 | PROVIDERS: PCP Family Medicine; Referring Provider Psychiatry & Neurology Sleep Medicine; Visit Provider Psychiatry & Neurology Sleep Medicine | DX: G47.33 Obstructive sleep apnea (adult) (pediatric) (principal); G47.34 Idiopathic sleep related nonobstructive alveolar hypoventilation | CPT/HCPCS: 95811 ==

== ENCOUNTER → 2023-03-04 | Outpatient (CLI) | payer MEDICARE, SELFPAY ==
[2023-03-04 10:51] LABS: Absolute Lymphocyte Count 1.42 X10^3/uL (0.83-4.51); Absolute Neutrophil Count 4.8 X10^3/uL (2.0-7.7); Basophil# 0.08 X10^3/uL; Basophil% 1.1 % (0-1); Eosinophil# 0.21 X10^3/uL; Eosinophils% 2.9 % (0-5); Hematocrit 41.9 % (37-47); Hemoglobin 13.3 g/dL (12.0-15.0); Lymphocyte # 1.42 X10^3/ul (0.83-4.51); Lymphocyte % 19.9 % (19-41); Mean Corp Hgb Conc 31.7 g/dL (32-36); Mean Corpuscular Hgb 30.2 pg (27.0-32.0); Mean Platelet Vol. 10.2 fl (6.2-12.0); Monocyte# 0.59 X10^3/uL; Monocyte% 8.3 % (0-10); NRBC Flagged by Analyzer 0 % (0-5); Neutrophil # 4.76 X10^3/uL (2.7-7.7); Neutrophil % 66.8 % (47-70); Platelet Count 221 K/mm3 (150-450); RBC Distribution Width CV 12.1 % (11.6-14.6); RBC Distribution Width SD 42.6 fl (35.1-43.9); Red Blood Count 4.41 M/mm3 (4.2-5.4); White Blood Count 7.1 K/mm3 (4.4-11.0)
[2023-03-04 11:33] LABS: ALB/GLOB Ratio 0.7 RATIO (0.9-2.4); AST(SGOT) 13 U/L (15-37); Alanine Aminotransfer ALT/SGPT 20 U/L (13-56); Alkaline Phosphatase 61 U/L (45-117); Anion Gap 7 (5-15); BUN 12 mg/dL (7-18); BUN/Creat Ratio 12.8 RATIO (10-20); Calcium,Total 8.7 mg/dL (8.5-10.1); Chloride 106 mmol/L (98-107); Creatinine, Serum 0.94 mg/dL (0.55-1.02); EST Glomerular Filtration Rate 63 mL/min (>60); Est Glom Filt Rate - Afr Amer 76 mL/min (>60); Globulin 4.5 g/dL (2.2-4.2); Glucose 165 mg/dL (74-106); Potassium 3.6 mmol/L (3.5-5.1); Protein, Total 7.5 g/dL (6.4-8.2); Sodium Level 140 mmol/L (136-145)
== END | disposition home or self-care (01) ==
LOC: MTLAB 08:20
PROVIDERS: PCP Family Medicine; Referring Provider Internal Medicine Rheumatology; Visit Provider Internal Medicine Rheumatology
DX: M06.4 Inflammatory polyarthropathy (principal); Z79.899 Other long term (current) drug therapy
CPT/HCPCS: 36415; 80053; 85025

== ENCOUNTER → 2023-05-09 | Outpatient (CLI) | payer MEDICARE, SELFPAY ==
--- NOTE | 2023-05-09 14:42 | VDLE_ITS ---
Reason For Study: edema RIGHT LEFT GSV is normal. GSV is normal. CFV is compressible, spontaneous, phasic, CFV is compressible, spontaneous, phasic, competent and demonstrates normal competent, and demonstrates normal augmentation. augmentation. FV is compressible, spontaneous, phasic, FV is compressible, spontaneous, phasic, competent and demonstrates normal competent and demonstrates normal augmentation. augmentation. POP V is compressible, spontaneous, phasic, POP V is compressible, spontaneous, phasic, competent and demonstrates normal competent and demonstrates normal augmentation. augmentation. T/P Trunk is compressible. T/P Trunk is compressible. PTV is compressible. PTV is compressible. RT PerV is compressible. LT PerV is compressible. Procedure Hypoechoic area behind the knee measuring This is a venous duplex using B-mode, color 1.01 x 3.0 cm. Area is nonvascular. flow and spectral Doppler. Exam performed in department. The exam was diagnostic. A preliminary report was called and/or faxed to Dr. Arita. VL/Venous Duplex US - Finn Extrem Interpretation Summary Deep veins of the lower extremities are bilaterally patent and compressible seg mentally. There is no evidence of deep vein thrombosis on either side. Valvular competence appears in tact within the proximal deep venous systems bilaterally. The great saphenous veins appear bila terally patent and compressible segmentally. A non-vascular, hypoechoic structure is noted in the left popliteal space, measuring 1.01 cm x 3.0 cm. This probably represents a popliteal cyst. Clinical correlation is advised. Ordering Physician: Brayan Arita Referring Physician: Brayan Arita Performed By: Kraig Wilson RVT
== END | disposition home or self-care (01) ==
LOC: CVS 14:40
PROVIDERS: PCP Family Medicine; Referring Provider Family Medicine; Visit Provider Family Medicine
DX: R60.0 Localized edema (principal)
CPT/HCPCS: 93970

== ENCOUNTER → 2023-05-27 | Outpatient (CLI) | payer MEDICARE, SELFPAY ==
[2023-05-27 15:15] LABS: Absolute Lymphocyte Count 1.96 X10^3/uL (0.83-4.51); Basophil# 0.06 X10^3/uL; Basophil% 0.7 % (0-1); Eosinophil# 0.37 X10^3/uL; Eosinophils% 4.6 % (0-5); Hematocrit 37.8 % (37-47); Lymphocyte # 1.96 X10^3/ul (0.83-4.51); Lymphocyte % 24.3 % (19-41); Mean Corp Hgb Conc 31.7 g/dL (32-36); Mean Corpuscular Hgb 30.8 pg (27.0-32.0); Mean Corpuscular Volume 96.9 fL (81-99); Monocyte# 0.67 X10^3/uL; Monocyte% 8.3 % (0-10); NRBC Flagged by Analyzer 0 % (0-5); Neutrophil # 4.96 X10^3/uL (2.7-7.7); Neutrophil % 61.5 % (47-70); Platelet Count 251 K/mm3 (150-450); RBC Distribution Width CV 13.3 % (11.6-14.6); RBC Distribution Width SD 47.4 fl (35.1-43.9); White Blood Count 8.1 K/mm3 (4.4-11.0)
[2023-05-27 15:39] LABS: ALB/GLOB Ratio 0.7 RATIO (0.9-2.4); AST(SGOT) 12 U/L (15-37); Alanine Aminotransfer ALT/SGPT 19 U/L (13-56); Albumin, Serum 2.9 g/dL (3.2-5.0); Alkaline Phosphatase 57 U/L (45-117); Anion Gap 7 (5-15); BUN 16 mg/dL (7-18); BUN/Creat Ratio 17.3 RATIO (10-20); Calcium,Total 8.5 mg/dL (8.5-10.1); Chloride 104 mmol/L (98-107); Creatinine, Serum 0.92 mg/dL (0.55-1.02); EST Glomerular Filtration Rate 64 mL/min (>60); Est Glom Filt Rate - Afr Amer 77 mL/min (>60); Globulin 4.2 g/dL (2.2-4.2); Glucose 215 mg/dL (74-106); Protein, Total 7.1 g/dL (6.4-8.2); Sodium Level 140 mmol/L (136-145)
== END | disposition home or self-care (01) ==
PROVIDERS: PCP Family Medicine; Referring Provider Internal Medicine Rheumatology; Visit Provider Internal Medicine Rheumatology
DX: M06.4 Inflammatory polyarthropathy (principal); Z79.899 Other long term (current) drug therapy
CPT/HCPCS: 36415; 80053; 85025

== ENCOUNTER 2023-06-21 15:27 | Observation (INO) | payer MEDICARE, SELFPAY ==
[2023-06-21] VITALS (9 sets, daily range): BP systolic 156–168; BP diastolic 53–83; PULSE 92–113; RESP 16–20; TEMP 36.2–37; O2SAT 89–97; BMI 38.9; BMI 37.5
--- NOTE | 2023-06-21 15:41 | RAD_ITS ---
INDICATION: cough EXAMINATION/TECHNIQUE: X-RAY - XR Chest 1 View COMPARISON: December 04, 2022 FINDINGS: LINES/DEVICES: None. LUNGS: No consolidation, edema or effusion. Mild basilar atelectasis. No pneumothorax. MEDIASTINUM AND CARDIOVASCULAR STRUCTURES: Cardiac silhouette not enlarged. Central airways and mediastinal contour are unremarkable. BONES AND SOFT TISSUES: Degenerative vertebral changes. RAD/Chest 1 View (Portable) IMPRESSION: Mild basilar atelectasis. Electronically Signed: Saúl Diaz DO at 16:43 EST ,
--- NOTE | 2023-06-21 15:41 | EKG12_ITS ---
Test Reason : Blood Pressure : / mmHG Vent. 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
--- NOTE | 2023-06-21 15:55 | ED.VIS.DYS ---
HPI History of Present Illness Chief Complaint: Cough Narrative Narrative: 73-year-old female presenting with shortness of breath, cough, fever, chills, body aches. This has been ongoing for about a week. Patient states she is coughing up a little bit of clear sputum. She states her chest feels sore from coughing. She denies chest pressure or sharp pleuritic pain. She states that she went to her technical solutions consultant today who was going to some testing however the patient tells me that her technical solutions consultant told her she was too sick to be here and sent her to the urgent care. Upon arriving to the urgent care she states she was sent to the emergency room. Her ambulating pulse ox and arrival was 86% ambulating without oxygen. She does not usually wear oxygen. She denies a history of asthma or COPD in the past. She denies any nausea or vomiting and is actually requesting food. No urinary or vaginal complaints. No constipation or diarrhea. [facility] Medical History Allergic rhinitis Anxiety Arthritis Asthma Back problem Breast cancer Breast lump Calcium deficiency Cancer Cardiology follow-up encounter Carpal tunnel syndrome Cataract Chronic bronchitis Chronic cough COPD (chronic obstructive pulmonary disease) Diabetes Dietary restriction Diverticulosis Easy bruising Essential hypertension Former smoker Gall stone Gastrointestinal problem GERD (gastroesophageal reflux disease) History of cervical cancer History of Clostridium difficile infection History of edema History of gastrostomy tube placement History of Holter monitoring History of stress test History of vaginal delivery Hives IBS (irritable bowel syndrome) Inflammatory polyarthritis Injury of head and neck Internal hemorrhoids Leg cramps Loss of consciousness MSSA (methicillin susceptible Staphylococcus aureus) pneumonia Neuropathy OAB (overactive bladder) Obesity Osteoarthritis Osteoporosis Pancreatitis Recurrent infections Restless legs Rhabdomyolysis (04/2017) Seasonal allergies Shortness of breath on exertion Sleep apnea Urinary incontinence UTI (urinary tract infection) Vision problems Wears dentures Wears glasses Home Medications fluticasone propionate 50 mcg/actuation nasal spray,suspension 1 spray intranasal DAILY PRN NASAL CONGESTION 01/30/14 [History Last Taken 06/20/23] methotrexate sodium 2.5 mg tablet 20 mg PO TEJADA BREAST CANCER 04/16/17 [History Last Taken 06/19/23] albuterol sulfate 90 mcg/actuation aerosol inhaler (ProAir HFA) 2 puff inhalation Q4H PRN SHORTNESS OF BREATH 06/05/21 [History Last Taken Unknown] escitalopram oxalate 10 mg tablet (Lexapro) 10 mg PO DAILY PRN DEPRESSION 06/05/21 [History Last Taken 1 Week Ago ~05/29/21] fluticasone fur. 100 mcg-umeclid 62.5 mcg-vilant 25 mcg inhalat.powder (Trelegy Ellipta) 1 inh inhalation DAILY SHORTNESS OF BREATH 06/05/21 [History Last Taken 1 Week Ago ~05/29/21] folic acid 1 mg tablet 2 mg PO DAILY SUPPLEMENT 06/05/21 [History Last Taken 06/20/23] hydrochlorothiazide 12.5 mg capsule 12.5 mg PO DAILY BLOOD PRESSURE 06/05/21 [History Last Taken 06/20/23] losartan 100 mg tablet 100 mg PO DAILY BLOOD PRESSURE 06/05/21 [History Last Taken 06/20/23] ostomy supplies ([employer] Protect Barrier Wipes) #50 ea 02/02/22 [Rx Last Taken Unknown] aspirin 81 mg tablet,delayed release (Adult Low Dose Aspirin) 81 mg PO DAILY HEART HEALTH 02/05/22 [History Last Taken 06/20/23] gabapentin 300 mg capsule 300 mg PO QHS NEUROPATHY 02/05/22 [History Last Taken 06/20/23] oxybutynin chloride 10 mg tablet,extended release 24 hr 20 mg PO DAILY OVERACTIVE BLADDER 02/05/22 [History Last Taken 06/20/23] metoprolol succinate 100 mg tablet,extended release 24 hr 100 mg PO DAILY BLOOD PRESSURE 02/24/22 [History Last Taken 06/20/23] esomeprazole magnesium 40 mg capsule,delayed release (Nexium) 40 mg PO DAILY ACID REFLUX 11/26/22 [History Last Taken 06/20/23] loratadine 10 mg tablet 10 mg PO DAILY PRN ALLERGIES 11/26/22 [History Last Taken Unknown] metformin 500 mg tablet,extended release 24 hr 500 mg PO BREAKFAST DIABETES 11/26/22 [History Last Taken Unknown] pen needle, diabetic 32 gauge x 5/32 (BD Ultra-Fine Tish Pen Needle) #100 ea 11/26/22 [Rx Last Taken Unknown] atorvastatin 20 mg tablet 20 mg PO DAILY CHOLESTEROL 06/21/23 [History Last Taken 06/20/23] fexofenadine 180 mg tablet ([place] Allergy) 180 mg PO BID ALLERGIES 06/21/23 [History Last Taken 06/20/23] insulin regular hum U-500 conc 500 unit/mL(3 mL) subcut pen (Humulin R U-500 (Conc) Insulin Kwikpen) 75 unit subcut TIDCM 06/21/23 [History Last Taken 06/21/23] metaxalone 800 mg tablet 800 mg PO TID PRN MUSCLE CRAMPS 06/21/23 [History Last Taken Unknown] nitrofurantoin monohydrate/macrocrystals 100 mg capsule 100 mg PO BID UTI 06/21/23 [History Last Taken 06/20/23] verapamil 120 mg tablet,extended release 120 mg PO QHS BLOOD PRESSURE 06/21/23 [History Last Taken 06/20/23] Allergy/AdvReac Type Severity Reaction Status Date / Time JESENIA Inhibitors Allergy Intermediate Cough Verified 06/21/23 15:28 adhesive tape Allergy Intermediate blisters Verified 06/21/23 15:28 dulaglutide [From Trulicity] Allergy Intermediate Gastropares Verified 06/21/23 15:28 is chondroitin sulfate A Allergy Rash Verified 06/21/23 15:28 [From DuoVisc Visco Elastic] hyaluronic acid Allergy Rash Verified 06/21/23 15:28 [From DuoVisc Visco Elastic] NSAIDS (Non-Steroidal Allergy Other Verified 06/21/23 15:28 Anti-Inflamma Family History Other Alcohol abuse Anxiety Arthritis Asthma defect Cancer Diabetes High cholesterol Hypertension Seizures Surgical History History of appendectomy History of colonoscopy History of hysterectomy History of left mastectomy History of nasal cauterization Social History Smoking Status: Former smoker alcohol intake: current alcohol intake frequency: 0-2 drinks per day substance use type: does not use what type of physical activity do you participate in: none ROS ROS ED Constitutional Constitutional ED: Reports chills and fever(s); Denies sweats Eyes Eyes: Denies blurry vision or change in vision ENT ENT ED: Denies ear pain or sore throat Cardiovascular Cardiovascular: Reports chest pain; Denies palpitations or racing heartbeat Respiratory/Chest Respiratory/Chest: Reports cough, dyspnea and dyspnea on exertion; Denies sputum Gastrointestinal Gastrointestinal: Denies abdominal pain, constipation, diarrhea, nausea or vomiting Genitourinary Genitourinary ED: Denies dysuria, hematuria or urinary frequency Musculoskeletal Musculoskeletal: Reports myalgias; Denies arthralgias or neck pain Integumentary Denies abscess, Abrasions or rash Neurologic Neurologic: Reports headache(s); Denies paresthesias or weakness Psychiatric Psychiatric: Denies anxiety, depression, suicidal ideation or suicidal thoughts Endocrine Endocrinology: Denies polydipsia or polyuria EXAM Physical Exam Const Vital Signs: 06/21/23 15:28 06/21/23 15:50 06/21/23 15:50 Temperature 97.2 F L Temperature Source Temporal Pulse Rate 113 H Respiratory Rate 20 H Respiratory Effort Short of Breath Respiratory Pattern Normal Blood Pressure 157/80 H Blood Pressure Mean 105 Pulse Ox 90 Oxygen Delivery Method Room Air Room Air Room Air Oxygen Flow Rate (L/min) 06/21/23 15:56 06/21/23 16:00 06/21/23 16:00 Temperature Temperature Source Pulse Rate 107 H Respiratory Rate 16 Respiratory Effort Respiratory Pattern Normal Blood Pressure Blood Pressure Mean Pulse Ox 94 94 Oxygen Delivery Method Nasal Cannula Nasal Cannula Oxygen Flow Rate (L/min) 2 2 06/21/23 18:07 Temperature Temperature Source Pulse Rate 107 H Respiratory Rate 20 H Respiratory Effort Respiratory Pattern Blood Pressure 156/83 H Blood Pressure Mean 107 Pulse Ox 94 Oxygen Delivery Method Nasal Cannula Oxygen Flow Rate (L/min) 4 Positive well nourished General Appearance ED: NAD; Negative for pallor HEENT Reports moist mucous membranes atraumatic Eyes PERRL and EOMs intact bilaterally Neck no lymphadenopathy, supple and no meningeal signs Resp normal respiratory effort and clear to auscultation bilaterally Auscultation: Negative for rales, rhonchi or wheezes Cardio regular rate and regular rhythm GI non-tender Neuro oriented x3 and CN's II-XII intact bilaterally [place] Coma Scale: document GCS findings Spontaneous Obeys Commands Oriented 15 Skin no wounds and skin turgor normal General Skin Exam: Negative for jaundice or pallor MDM MDM MDM Narrative Medical decision making narrative: 73-year-old female presenting with shortness of breath, cough, fever, chills. Ambulating pulse ox is 86% on arrival on room air. Patient does states that she felt very dyspneic. Differential includes CHF, pneumonia, COVID, influenza, dehydration, electrolyte normalities, ACS, anemia, sepsis. Patient tachycardic, tachypneic, hypoxic on arrival. Sepsis work-up was initiated. Patient well-appearing and maintaining pulse ox of 94% on 2 L of nasal cannula. Patient does not appear to be wheezing on examination but I did give her breathing treatments to see if this would help her breathing. She was amenable to this.. CBC shows leukocytosis of 15.6. Hemoglobin stable 11.9. EKG on my interpretation shows a sinus tachycardia rate 110 bpm without ischemic change or ectopy. Chest x-ray my interpretation does not show any acute cardiopulmonary process. The radiologist services and agrees. CMP shows normal liver function. Creatinine near baseline at 1.10. Glucose 333 without anion gap. Electrolytes within normal limits. Urinalysis consistent with UTI. D-dimer came back elevated and patient has CTA of the chest which does not show any PE or dissection but does show a small right apical infiltrate and a left small pleural effusion. Patient was hypoxic on ambulation so she will need to be admitted. Rocephin and azithromycin were given in the ED. Patient was pancultured. Discussed with hospitalist for admission. Impression: 1. Hypoxic respiratory failure 2. Pneumonia 3. UTI Lab Data Attestation: I reviewed the patient's lab results. Labs: Laboratory Results - last 24 hr 06/21/23 06/21/23 06/21/23 15:49 15:52 15:52 WBC Cancelled Corrected WBC Cancelled RBC Cancelled Hgb Cancelled Hct Cancelled MCV Cancelled MCH Cancelled MCHC Cancelled RDW Std Deviation Cancelled RDW Coeff of Tom Cancelled Plt Count Cancelled MPV Cancelled Immature Gran % (Auto) Cancelled Neut % (Auto) Cancelled Lymph % (Auto) Cancelled [place] % (Auto) Cancelled Eos % (Auto) Cancelled Baso % (Auto) Cancelled Absolute Neuts (auto) Cancelled Absolute Lymphs (auto) Cancelled Total Counted Cancelled Neutrophils % (Manual) Cancelled Band Neutrophils % Cancelled Lymphocytes % (Manual) Cancelled Monocytes % (Manual) Cancelled Eosinophils % (Manual) Cancelled Basophils % (Manual) Cancelled Metamyelocytes % Cancelled Myelocytes % Cancelled Promyelocytes % Cancelled Blast Cells % Cancelled Plasma Cell % (Manual) Cancelled Other Cells % Cancelled Nucleated RBC % Cancelled Nucleated RBCs/100 WBC Cancelled Differential Comment Cancelled Diff Path Review Cancelled Hypersegmented Neuts Cancelled Atypical Lymphocytes Cancelled Reactive Lymphocytes Cancelled Smudge Cells Cancelled Toxic Granulation Cancelled Toxic Vacuolation Cancelled Dohle Bodies Cancelled Stacia Rods Cancelled Platelet Estimate Cancelled Plt Morphology Comment Cancelled RBC Morphology Cancelled Cancelled Polychromasia Cancelled Hypochromasia Cancelled Poikilocytosis Cancelled Basophilic Stippling Cancelled Anisocytosis Cancelled Microcytosis Cancelled Macrocytosis Cancelled Spherocytes Cancelled Sickle Cells Cancelled Target Cells Cancelled Tear Drop Cells Cancelled Ovalocytes Cancelled Stomatocytes Cancelled Gautam-Chauvin Bodies Cancelled Cristela Cells Cancelled Bite Cells Cancelled Crenated Cell Cancelled Acanthocytes (Spur) Cancelled Rouleaux Cancelled Schistocytes Cancelled PT INR APTT D-Dimer Quant (PE/DVT) Sodium Cancelled Potassium Cancelled Chloride Cancelled Carbon Dioxide Cancelled Anion Gap Cancelled BUN Cancelled Creatinine Cancelled Estim Creat Clear Calc Cancelled Est GFR (MDRD) Af Amer Cancelled Est GFR (MDRD) Non-Af Cancelled BUN/Creatinine Ratio Cancelled Glucose Cancelled Lactic Acid Calcium Cancelled Total Bilirubin Cancelled AST Cancelled ALT Cancelled Alkaline Phosphatase Cancelled Total Protein Cancelled Albumin Cancelled Globulin Cancelled Albumin/Globulin Ratio Cancelled Urine Color Urine Clarity Urine pH Ur Specific [place] Urine Protein Urine Glucose (UA) Urine Ketones Urine Occult Blood Urine Nitrite Urine Bilirubin Urine Urobilinogen Ur Leukocyte Esterase Urine RBC Urine WBC Ur Squamous Epith Cells Urine Bacteria Urine Mucus POC Glucose 344 H 06/21/23 06/21/23 06/21/23 16:05 16:15 17:00 WBC 15.6 H Corrected WBC RBC 3.89 L Hgb 11.9 L Hct 36.8 L MCV 94.6 MCH 30.6 MCHC 32.3 RDW Std Deviation 45.2 H RDW Coeff of Tom 13.2 Plt Count 272 MPV 9.1 Immature Gran % (Auto) 0.600 Neut % (Auto) 79.9 H Lymph % (Auto) 8.1 L [place] % (Auto) 4.9 Eos % (Auto) 5.8 H Baso % (Auto) 0.7 Absolute Neuts (auto) 12.5 H Absolute Lymphs (auto) 1.26 Total Counted Neutrophils % (Manual) Band Neutrophils % Lymphocytes % (Manual) Monocytes % (Manual) Eosinophils % (Manual) Basophils % (Manual) Metamyelocytes % Myelocytes % Promyelocytes % Blast Cells % Plasma Cell % (Manual) Other Cells % Nucleated RBC % 0 Nucleated RBCs/100 WBC Differential Comment Diff Path Review Hypersegmented Neuts Atypical Lymphocytes Reactive Lymphocytes Smudge Cells Toxic Granulation Toxic Vacuolation Dohle Bodies Stacia Rods Platelet Estimate Plt Morphology Comment RBC Morphology Polychromasia Hypochromasia Poikilocytosis Basophilic Stippling Anisocytosis Microcytosis Macrocytosis Spherocytes Sickle Cells Target Cells Tear Drop Cells Ovalocytes Stomatocytes Gautam-Chauvin Bodies [place] Cells Bite Cells Crenated Cell Acanthocytes (Spur) Rouleaux Schistocytes PT 14.0 INR 1.1 APTT 28.4 D-Dimer Quant (PE/DVT) 1.66 H* Sodium 134 L Potassium 4.3 Chloride 99 Carbon Dioxide 26.0 Anion Gap 9 BUN 15 Creatinine 1.10 H Estim Creat Clear Calc Est GFR (MDRD) Af Amer 63 Est GFR (MDRD) Non-Af 52 L BUN/Creatinine Ratio 13.6 Glucose 333 H Lactic Acid 1.4 Calcium 8.5 Total Bilirubin 0.60 AST 14 L ALT 16 Alkaline Phosphatase 69 Total Protein 7.6 Albumin 2.8 L Globulin 4.8 H Albumin/Globulin Ratio 0.6 L Urine Color Yellow Urine Clarity Clear Urine pH 5.0 Ur Specific [place] 1.020 Urine Protein 30 H Urine Glucose (UA) 1000 H Urine Ketones 150 A* Urine Occult Blood 10 H Urine Nitrite Negative Urine Bilirubin Negative Urine Urobilinogen 1 H Ur Leukocyte Esterase 500 H Urine RBC 0 SEEN Urine WBC 5-10 SEEN Ur Squamous Epith Cells 5-10 SEEN Urine Bacteria 1+ Urine Mucus 0 SEEN POC Glucose Radiography Diagnostic Testing: Clinical Impression(s) from Imaging Studies Chest X-Ray 06/21/23 15:41 IMPRESSION: Mild basilar atelectasis. Electronically Signed: Saúl Diaz DO at 16:43 EST , Chest CTA 06/21/23 16:58 IMPRESSION: No demonstrated pulmonary embolism or arterial dissection. Bilateral basilar atelectasis. Interstitial prominence. Possible small focal right apical infiltrate. Small left pleural effusion. Cholelithiasis. Fatty liver. Left adrenal nodule. Electronically Signed: Saúl Diaz DO at 18:08 EST Reading Location ID and State: [facility] / [place] Tel [phone], Service support , Discharge Plan Triage Chief Complaint: Cough ED Provider: Elver Carrion Dx/Rx/DC Orders Primary Care Provider: Brayan Arita
[2023-06-21] MEDS: Ipratropium/Albuterol Sulfate 3 ML AMPUL.NEB INHALATION ×2 (15:58→21:19)
[2023-06-21 16:09] LABS: Bedside Glucose 344 mg/dL (74-106)
[2023-06-21 16:26] LABS: Absolute Lymphocyte Count 1.26 X10^3/uL (0.83-4.51); Absolute Neutrophil Count 12.5 X10^3/uL (2.0-7.7); Basophil# 0.11 X10^3/uL; Basophil% 0.7 % (0-1); Eosinophils% 5.8 % (0-5); Hematocrit 36.8 % (37-47); Hemoglobin 11.9 g/dL (12.0-15.0); Lymphocyte # 1.26 X10^3/ul (0.83-4.51); Lymphocyte % 8.1 % (19-41); Mean Corp Hgb Conc 32.3 g/dL (32-36); Mean Corpuscular Hgb 30.6 pg (27.0-32.0); Mean Corpuscular Volume 94.6 fL (81-99); Mean Platelet Vol. 9.1 fl (6.2-12.0); Monocyte# 0.76 X10^3/uL; Monocyte% 4.9 % (0-10); NRBC Flagged by Analyzer 0 % (0-5); Neutrophil # 12.47 X10^3/uL (2.7-7.7); Neutrophil % 79.9 % (47-70); Platelet Count 272 K/mm3 (150-450); RBC Distribution Width CV 13.2 % (11.6-14.6); RBC Distribution Width SD 45.2 fl (35.1-43.9); Red Blood Count 3.89 M/mm3 (4.2-5.4); White Blood Count 15.6 K/mm3 (4.4-11.0)
[2023-06-21 16:39] LABS: International Normalized Ratio 1.1
[2023-06-21 16:41] LABS: Partial Thromboplast Time 28.4 Seconds (24.1-36.2)
[2023-06-21] MEDS: 0.9% Normal Saline (1000mL) 1,000 ML 999 ML IV (16:41)
[2023-06-21] MEDS: Acetaminophen 500 MG Tablet 1000 MG PO (16:42)
[2023-06-21 16:46] LABS: ALB/GLOB Ratio 0.6 RATIO (0.9-2.4); AST(SGOT) 14 U/L (15-37); Alanine Aminotransfer ALT/SGPT 16 U/L (13-56); Albumin, Serum 2.8 g/dL (3.2-5.0); Alkaline Phosphatase 69 U/L (45-117); Anion Gap 9 (5-15); BUN 15 mg/dL (7-18); BUN/Creat Ratio 13.6 RATIO (10-20); Calcium,Total 8.5 mg/dL (8.5-10.1); Chloride 99 mmol/L (98-107); EST Glomerular Filtration Rate 52 mL/min (>60); Est Glom Filt Rate - Afr Amer 63 mL/min (>60); Globulin 4.8 g/dL (2.2-4.2); Glucose 333 mg/dL (74-106); Potassium 4.3 mmol/L (3.5-5.1); Protein, Total 7.6 g/dL (6.4-8.2); Sodium Level 134 mmol/L (136-145)
[2023-06-21 16:49] LABS: Lactic Acid 1.4 mmol/L (0.4-1.9)
[2023-06-21 16:57] LABS: D-Dimer Quantitative (DVT/PE) 1.66 FEU/ug/m (0.27-0.49)
--- NOTE | 2023-06-21 16:58 | CT_ITS ---
STUDY: CTA CHEST REASON FOR EXAM: Female, 73 years old. Elevated d-dimer RADIATION DOSAGE (If Supplied By Facility): CTDIvol = ( 17.25 ) mGy, DLP = ( 523.40 ) mGycm TECHNIQUE: The examination was performed with the intravenous administration of IV 100mL Isovue-370. Post-processing of the angiographic images was performed, with multiplanar reformation and 3D reconstruction. Individualized dose optimization techniques were used for this CT. COMPARISON: December 18, 2020 FINDINGS: Normal enhancement of the main pulmonary artery and right and left pulmonary arteries. Normal enhancement of the bilateral peripheral pulmonary arteries. There is no demonstrated pulmonary embolism. Normal thoracic aorta and visualized great vessels. There is no demonstrated aortic dissection. Normal heart and pericardium. Normal mediastinum. Normal hilar regions. Normal visualized trachea and bronchi. The lungs are well expanded. Bilateral basilar atelectasis. Interstitial prominence. Possible focal right apical infiltrate. Small left pleural effusion. Normal chest wall structures. Degenerative vertebral changes. Cholelithiasis. Fatty liver. There is a left adrenal [address]/CTA Chest W/WO Contrast IMPRESSION: No demonstrated pulmonary embolism or arterial dissection. Bilateral basilar atelectasis. Interstitial prominence. Possible small focal right apical infiltrate. Small left pleural effusion. Cholelithiasis. Fatty liver. Left adrenal nodule. Electronically Signed: Saúl Diaz DO at 18:08 EST ,
[2023-06-21 17:15] LABS: Mucous, Urine 0 SEEN /hpf (<or=2+); Red Blood Cells-Urine 0 SEEN /hpf (0-5)
[2023-06-21 17:16] LABS: Color, Urine Yellow (Yellow); Glucose, Dipstick 1000 mg/dl (Normal); Leukocyte Esterase-Dipstick 500 /ul (Negative); Nitrite-Dipstick Negative (Negative); Occult Blood-Urine 10 /ul (Negative); Protein-Dipstick 30 mg/dl (Negative); Urine Bilirubin Dipstick Negative (Negative); Urine Clarity Clear (Clear); Urine Urobilinogen 1 mg/dl (Normal)
[2023-06-21 17:25] LABS: Ketone-Dipstick 150 mg/dl (Negative)
[2023-06-21 17:34] LABS: Bacteria 1+ /hpf (None Seen); Squamous Epithelial Cells - UA 5-10 SEEN /hpf (5-10); White Blood Cells 5-10 SEEN /hpf (0-5)
--- NOTE | 2023-06-21 18:42 | PCM.HP.STD ---
HPI - General General Date of Admission: 06/21/23 HPI Narrative MENDEZ KEITH, is a 73 F who presents to the hospital with increasing shortness of breath and coughing. The coughing started about 2 years ago and was likely related to her lisinopril she has been transitioned to losartan. She is also been having increasing shortness of breath and she has been a smoker for about 20 years at a pack a day and she was supposed to have pulmonary function testing today however she was extremely short of breath and was using her inhaler so they could not do the test but they sent her to the ER for evaluation. She is requiring 4 L nasal cannula and was down to 84% on room air in the ER, she does not wear oxygen at home. She did have an elevated D-dimer CTA of the chest was negative for PE it did show a possible right apical small consolidation which is unlikely to be causing her hypoxia. She does relate that she had a sister who at the age of 42 from COPD and she had asthma as a kid. She denies any abdominal pain but she has been having fevers over the last for 5 days, UA is positive for UTI here in the ER. She also relates that she had a punctate rash on her right lower extremity that was biopsied by her PCP, pathology is currently pending unclear if there is a correlation between the rash and her potential pulmonary issues. [facility] Medical History (Updated 06/21/23 @ 19:[address] Reji Nelson MD) Allergic rhinitis Anxiety Arthritis Asthma Back problem Breast cancer Breast lump Calcium deficiency Cancer Cardiology follow-up encounter Carpal tunnel syndrome Cataract Chronic bronchitis Chronic cough COPD (chronic obstructive pulmonary disease) Diabetes Dietary restriction Diverticulosis Easy bruising Essential hypertension Former smoker Gall stone Gastrointestinal problem GERD (gastroesophageal reflux disease) History of cervical cancer History of Clostridium difficile infection History of edema History of gastrostomy tube placement History of Holter monitoring History of stress test History of vaginal delivery Hives IBS (irritable bowel syndrome) Inflammatory polyarthritis Injury of head and neck Internal hemorrhoids Leg cramps Loss of consciousness MSSA (methicillin susceptible Staphylococcus aureus) pneumonia Neuropathy OAB (overactive bladder) Obesity Osteoarthritis Osteoporosis Pancreatitis Recurrent infections Restless legs Rhabdomyolysis (04/2017) Seasonal allergies Shortness of breath on exertion Sleep apnea Urinary incontinence UTI (urinary tract infection) Vision problems Wears dentures Wears glasses Home Medications fluticasone propionate 50 mcg/actuation nasal spray,suspension 1 spray intranasal DAILY PRN NASAL CONGESTION 01/30/14 [History Last Taken 06/20/23] methotrexate sodium 2.5 mg tablet 20 mg PO TEJADA BREAST CANCER 04/16/17 [History Last Taken 06/19/23] albuterol sulfate 90 mcg/actuation aerosol inhaler (ProAir HFA) 2 puff inhalation Q4H PRN SHORTNESS OF BREATH 06/05/21 [History Last Taken Unknown] escitalopram oxalate 10 mg tablet (Lexapro) 10 mg PO DAILY PRN DEPRESSION 06/05/21 [History Last Taken 1 Week Ago ~05/29/21] fluticasone fur. 100 mcg-umeclid 62.5 mcg-vilant 25 mcg inhalat.powder (Trelegy Ellipta) 1 inh inhalation DAILY SHORTNESS OF BREATH 06/05/21 [History Last Taken 1 Week Ago ~05/29/21] folic acid 1 mg tablet 2 mg PO DAILY SUPPLEMENT 06/05/21 [History Last Taken 06/20/23] hydrochlorothiazide 12.5 mg capsule 12.5 mg PO DAILY BLOOD PRESSURE 06/05/21 [History Last Taken 06/20/23] losartan 100 mg tablet 100 mg PO DAILY BLOOD PRESSURE 06/05/21 [History Last Taken 06/20/23] ostomy supplies (Patch of [place] Protect Barrier Wipes) #50 ea 02/02/22 [Rx Last Taken Unknown] aspirin 81 mg tablet,delayed release (Adult Low Dose Aspirin) 81 mg PO DAILY HEART HEALTH 02/05/22 [History Last Taken 06/20/23] gabapentin 300 mg capsule 300 mg PO QHS NEUROPATHY 02/05/22 [History Last Taken 06/20/23] oxybutynin chloride 10 mg tablet,extended release 24 hr 20 mg PO DAILY OVERACTIVE BLADDER 02/05/22 [History Last Taken 06/20/23] metoprolol succinate 100 mg tablet,extended release 24 hr 100 mg PO DAILY BLOOD PRESSURE 02/24/22 [History Last Taken 06/20/23] esomeprazole magnesium 40 mg capsule,delayed release (Nexium) 40 mg PO DAILY ACID REFLUX 11/26/22 [History Last Taken 06/20/23] loratadine 10 mg tablet 10 mg PO DAILY PRN ALLERGIES 11/26/22 [History Last Taken Unknown] metformin 500 mg tablet,extended release 24 hr 500 mg PO BREAKFAST DIABETES 11/26/22 [History Last Taken Unknown] pen needle, diabetic 32 gauge x 5/32 (BD Ultra-Fine Tish Pen Needle) #100 ea 11/26/22 [Rx Last Taken Unknown] atorvastatin 20 mg tablet 20 mg PO DAILY CHOLESTEROL 06/21/23 [History Last Taken 06/20/23] fexofenadine 180 mg tablet ([place] Allergy) 180 mg PO BID ALLERGIES 06/21/23 [History Last Taken 06/20/23] insulin regular hum U-500 conc 500 unit/mL(3 mL) subcut pen (Humulin R U-500 (Conc) Insulin Kwikpen) 75 unit subcut TIDCM 06/21/23 [History Last Taken 06/21/23] metaxalone 800 mg tablet 800 mg PO TID PRN MUSCLE CRAMPS 06/21/23 [History Last Taken Unknown] nitrofurantoin monohydrate/macrocrystals 100 mg capsule 100 mg PO BID UTI 06/21/23 [History Last Taken 06/20/23] verapamil 120 mg tablet,extended release 120 mg PO QHS BLOOD PRESSURE 06/21/23 [History Last Taken 06/20/23] Allergy/AdvReac Type Severity Reaction Status Date / Time JESENIA Inhibitors Allergy Intermediate Cough Verified 06/21/23 15:28 adhesive tape Allergy Intermediate blisters Verified 06/21/23 15:28 dulaglutide [From Trulicity] Allergy Intermediate Gastropares Verified 06/21/23 15:28 is chondroitin sulfate A Allergy Rash Verified 06/21/23 15:28 [From DuoVisc Visco Elastic] hyaluronic acid Allergy Rash Verified 06/21/23 15:28 [From DuoVisc Visco Elastic] NSAIDS (Non-Steroidal Allergy Other Verified 06/21/23 15:28 Anti-Inflamma Family History (Updated 06/21/23 @ 19:[address] Reji Nelson MD) Other Alcohol abuse Anxiety Arthritis Asthma defect COPD (chronic obstructive pulmonary disease) Cancer Diabetes High cholesterol Hypertension Seizures Surgical History History of appendectomy History of colonoscopy History of hysterectomy History of left mastectomy History of nasal cauterization Social History Smoking Status: Former smoker alcohol intake: current alcohol intake frequency: 0-2 drinks per day substance use type: does not use what type of physical activity do you participate in: none Vital Signs Vital Signs Vital Signs: 06/21/23 15:28 06/21/23 15:50 06/21/23 15:50 Temperature 97.2 F L Temperature Source Temporal Pulse Rate 113 H Respiratory Rate 20 H Respiratory Effort Short of Breath Respiratory Pattern Normal Blood Pressure 157/80 H Blood Pressure Mean 105 Pulse Ox 90 Oxygen Delivery Method Room Air Room Air Room Air Oxygen Flow Rate (L/min) 06/21/23 15:56 06/21/23 16:00 06/21/23 16:00 Temperature Temperature Source Pulse Rate 107 H Respiratory Rate 16 Respiratory Effort Respiratory Pattern Normal Blood Pressure Blood Pressure Mean Pulse Ox 94 94 Oxygen Delivery Method Nasal Cannula Nasal Cannula Oxygen Flow Rate (L/min) 2 2 06/21/23 18:07 Temperature Temperature Source Pulse Rate 107 H Respiratory Rate 20 H Respiratory Effort Respiratory Pattern Blood Pressure 156/83 H Blood Pressure Mean 107 Pulse Ox 94 Oxygen Delivery Method Nasal Cannula Oxygen Flow Rate (L/min) 4 Weight Weight: 211 lb 6.773 oz Body Mass Index (BMI) 38.9 Physical Exam Narrative General: Alert, Oriented x3, Cooperative, No apparent distress HEENT: Atraumatic, PERRLA, EOMI, Normocephalic Oral: Moist Mucosa Neck: Supple, No JVD Lungs: Diminished, poor air movement, No rhonchi, small expiratory wheeze right lower lobe, No rales Cardiovascular: Tachycardic, Regular Rhythm, Normal S1, Normal S2, No murmurs Abdomen: Soft, Non Tender, Non-Distended, No Hepato-splenomegaly Extremities: Edema, Capillary Refill Less than 3 Seconds Skin: Small petechial rash on the right lower extremity no erythema Musculoskeletal: No Tenderness to Palpation of Joints or Extremities Neurological: Cranial nerves II-XII grossly intact, Motor Exam 5/5 strength throughout, Sensory exam intact to light touch and pain Psych/Mental Status: Normal Affect, Appropriate Results Lab / Micro Data 06/21/23 16:15 06/21/23 16:15 Labs: Laboratory Results - last 24 hr 06/21/23 15:49: POC Glucose 344 H 06/21/23 15:52: WBC Cancelled, Corrected WBC Cancelled, RBC Cancelled, Hgb Cancelled, Hct Cancelled, MCV Cancelled, MCH Cancelled, MCHC Cancelled, RDW Std Deviation Cancelled, RDW Coeff of Tom Cancelled, Plt Count Cancelled, MPV Cancelled, Immature Gran % (Auto) Cancelled, Neut % (Auto) Cancelled, Lymph % (Auto) Cancelled, [place] % (Auto) Cancelled, Eos % (Auto) Cancelled, Baso % (Auto) Cancelled, Absolute Neuts (auto) Cancelled, Absolute Lymphs (auto) Cancelled, Total Counted Cancelled, Neutrophils % (Manual) Cancelled, Band Neutrophils % Cancelled, Lymphocytes % (Manual) Cancelled, Monocytes % (Manual) Cancelled, Eosinophils % (Manual) Cancelled, Basophils % (Manual) Cancelled, Metamyelocytes % Cancelled, Myelocytes % Cancelled, Promyelocytes % Cancelled, Blast Cells % Cancelled, Plasma Cell % (Manual) Cancelled, Other Cells % Cancelled, Nucleated RBC % Cancelled, Nucleated RBCs/100 WBC Cancelled, Differential Comment Cancelled, Diff Path Review Cancelled, Hypersegmented Neuts Cancelled, Atypical Lymphocytes Cancelled, Reactive Lymphocytes Cancelled, Smudge Cells Cancelled, Toxic Granulation Cancelled, Toxic Vacuolation Cancelled, Dohle Bodies Cancelled, Stacia Rods Cancelled, Platelet Estimate Cancelled, Plt Morphology Comment Cancelled, RBC Morphology Cancelled 06/21/23 15:52: RBC Morphology Cancelled, Polychromasia Cancelled, Hypochromasia Cancelled, Poikilocytosis Cancelled, Basophilic Stippling Cancelled, Anisocytosis Cancelled, Microcytosis Cancelled, Macrocytosis Cancelled, Spherocytes Cancelled, Sickle Cells Cancelled, Target Cells Cancelled, Tear Drop Cells Cancelled, Ovalocytes Cancelled, Stomatocytes Cancelled, [place] Bodies Cancelled, [place] Cells Cancelled, Bite Cells Cancelled, Crenated Cell Cancelled, Acanthocytes (Spur) Cancelled, Rouleaux Cancelled, Schistocytes Cancelled, Sodium Cancelled, Potassium Cancelled, Chloride Cancelled, Carbon Dioxide Cancelled, Anion Gap Cancelled, BUN Cancelled, Creatinine Cancelled, Estim Creat Clear Calc Cancelled, Est GFR (MDRD) Af Amer Cancelled, Est GFR (MDRD) Non-Af Cancelled, BUN/Creatinine Ratio Cancelled, Glucose Cancelled, Calcium Cancelled, Total Bilirubin Cancelled, AST Cancelled, ALT Cancelled, Alkaline Phosphatase Cancelled, Total Protein Cancelled, Albumin Cancelled, Globulin Cancelled, Albumin/Globulin Ratio Cancelled 06/21/23 16:05: PT 14.0, INR 1.1, APTT 28.4, D-Dimer Quant (PE/DVT) 1.66 H*, Lactic Acid 1.4 06/21/23 16:15: WBC 15.6 H, RBC 3.89 L, Hgb 11.9 L, Hct 36.8 L, MCV 94.6, MCH 30.6, MCHC 32.3, RDW Std Deviation 45.2 H, RDW Coeff of Tom 13.2, Plt Count 272, MPV 9.1, Immature Gran % (Auto) 0.600, Neut % (Auto) 79.9 H, Lymph % (Auto) 8.1 L, [place] % (Auto) 4.9, Eos % (Auto) 5.8 H, Baso % (Auto) 0.7, Absolute Neuts (auto) 12.5 H, Absolute Lymphs (auto) 1.26, Nucleated RBC % 0, Sodium 134 L, Potassium 4.3, Chloride 99, Carbon Dioxide 26.0, Anion Gap 9, BUN 15, Creatinine 1.10 H, Est GFR (MDRD) Af Amer 63, Est GFR (MDRD) Non-Af 52 L, BUN/Creatinine Ratio 13.6, Glucose 333 H, Calcium 8.5, Total Bilirubin 0.60, AST 14 L, ALT 16, Alkaline Phosphatase 69, Total Protein 7.6, Albumin 2.8 L, Globulin 4.8 H, Albumin/Globulin Ratio 0.6 L 06/21/23 17:00: Urine Color Yellow, Urine Clarity Clear, Urine pH 5.0, Ur Specific [place] 1.020, Urine Protein 30 H, Urine Glucose (UA) 1000 H, Urine Ketones 150 A*, Urine Occult Blood 10 H, Urine Nitrite Negative, Urine Bilirubin Negative, Urine Urobilinogen 1 H, Ur Leukocyte Esterase 500 H, Urine RBC 0 SEEN, Urine WBC 5-10 SEEN, Ur Squamous Epith Cells 5-10 SEEN, Urine Bacteria 1+, Urine Mucus 0 SEEN Micro: Microbiology 06/21/23 15:52 Nasal Secretion SARS-CoV-2 & FLU Antigen (Rapid) - Final Radiology Impression Chest X-Ray 06/21/23 15:41 IMPRESSION: Mild basilar atelectasis. Electronically Signed: Saúl Diaz DO at 16:43 EST , Chest CTA 06/21/23 16:58 IMPRESSION: No demonstrated pulmonary embolism or arterial dissection. Bilateral basilar atelectasis. Interstitial prominence. Possible small focal right apical infiltrate. Small left pleural effusion. Cholelithiasis. Fatty liver. Left adrenal nodule. Electronically Signed: Saúl Diaz at 18:08 EST , Assessment & Plan Assessment/Plan (1) UTI (urinary tract infection): PLAN: Plan 1. UTI ? Appears that she was on nitrofurantoin as an outpatient however we have no culture data issues continue to have a leukocytosis and she is been having fevers for the last for over a days ? We will obtain a urine culture ? Continue with IV Rocephin ? She does have a history of urinary incontinence however given the setting of a UTI we will hold her oxybutynin 2. Likely COPD exacerbation ? He does have some expiratory wheezing in her right lower base and this is after a DuoNeb ? She is supposed to be on inhalers as an outpatient but she says that she never had any pulmonary function testing which was supposed to happen today ? We will continue with Solu-Medrol as well as DuoNebs ? Her sister at the age of 42 from COPD 3. HTN/HLD ? Blood pressures are stable, can resume her home blood pressure medications ? We will monitor and make adjustments as necessary ? She had an echo about a year ago with normal EF and stage I diastolic dysfunction, will obtain a BNP 4. DM2 ? She is on extensive insulin regimen which we will resume as she is being started on steroids ? We will hold metformin ? Accu-Cheks ACHS ? Sign scale insulin ? We will monitor and make adjustments as necessary 5. Anxiety/depression ? Stable ? Continue with her home medications 6. GERD ? Stable ? Continue with PPI 6. She states that she is on methotrexate for osteoarthritis I asked if she meant that she had rheumatoid arthritis she says no that she specifically takes it for osteoarthritis in the med rec it states that she is taking it for breast cancer. Regardless she took it on Tuesday and she is not due again for another 5 days. I discussed with her the need to follow-up with whoever prescribed the methotrexate to clarify the purpose of the medication DVT: Lovenox 75 minutes was spent on direct patient care, including documentation as well as chart review and collaboration with colleagues Charges/Coding Visit Charges Inpatient E&M: 53328 Init Hosp L3
[2023-06-21 20:28] LABS: BNP,B-Type NATRIURETIC PEPTIDE 9.1 pg/mL (0-100)
[2023-06-21] MEDS: Ceftriaxone 1 GM/50 ML BAG IV (21:12)
[2023-06-21] MEDS: 0.9% Normal Saline (250mL Bag) 250 ML 15 ML IV (21:13)
[2023-06-21] MEDS: 0.9% Saline Lock 10 ML Syringe IV (21:14)
[2023-06-21] MEDS: Atorvastatin Calcium 20 MG Tablet PO (21:14)
[2023-06-21] MEDS: Verapamil SR 240 MG Tablet 120 MG PO (21:14)
[2023-06-21] MEDS: Gabapentin 300 MG Capsule PO (21:25)
[2023-06-21] MEDS: Insulin Lispro 100 UNIT/ML INSULN.PEN SC (21:25)
[2023-06-21 21:53] LABS: Bedside Glucose 286 mg/dL (74-106)
[2023-06-22] VITALS (13 sets, daily range): BP systolic 134–145; BP diastolic 58–83; PULSE 80–94; RESP 16–20; TEMP 36.2–37.1; O2SAT 83–95
[2023-06-22] MEDS: Insulin Lispro 100 UNIT/ML INSULN.PEN SC ×4 (06:06→21:46)
[2023-06-22] MEDS: 0.9% Saline Lock 10 ML Syringe IV ×2 (06:06→21:47)
[2023-06-22 06:38] LABS: Bedside Glucose 354 mg/dL (74-106)
[2023-06-22] MEDS: Ipratropium/Albuterol Sulfate 3 ML AMPUL.NEB INHALATION ×4 (06:54→20:12)
--- NOTE | 2023-06-22 07:19 | PCM.PN.HOSP ---
Reason for Visit Reason for Visit: Diagnoses Urinary tract infection, site not specified (06/21/23) Subjective Subjective Feeling better today than she did yesterday, has slight dry cough that she has had for 3 years, feeling somewhat stronger than yesterday Objective Data Objective Data Vital Signs: Vital Signs Temp Pulse Resp BP Pulse Ox O2 Del Method O2 Flow Rate 97.2 F L 91 19 H 140/74 H 95 Nasal Cannula 3 06/22/23 05:56 06/22/23 06:54 06/22/23 06:54 06/22/23 05:56 06/22/23 06:54 06/22/23 06:54 06/22/23 06:54 Oxygen Flow Rate (L/min) 3 Oxygen Delivery Method Nasal Cannula Weight: 93.1 kg Body Mass Index (BMI) 37.5 Intake & Output: Intake and Output for Last 24 Hours 06/20/23 06/21/23 06/22/23 23:59 23:59 23:59 Intake Total 1050.5 / 1050.5 422.5 / 422.5 Balance 1050.5 / 1050.5 422.5 / 422.5 Lab / Micro Data 06/22/23 07:15 06/22/23 07:15 Labs: Laboratory Results - last 24 hr 06/21/23 15:49: POC Glucose 344 H 06/21/23 15:52: WBC Cancelled, Corrected WBC Cancelled, RBC Cancelled, Hgb Cancelled, Hct Cancelled, MCV Cancelled, MCH Cancelled, MCHC Cancelled, RDW Std Deviation Cancelled, RDW Coeff of Tom Cancelled, Plt Count Cancelled, MPV Cancelled, Immature Gran % (Auto) Cancelled, Neut % (Auto) Cancelled, Lymph % (Auto) Cancelled, [place] % (Auto) Cancelled, Eos % (Auto) Cancelled, Baso % (Auto) Cancelled, Absolute Neuts (auto) Cancelled, Absolute Lymphs (auto) Cancelled, Total Counted Cancelled, Neutrophils % (Manual) Cancelled, Band Neutrophils % Cancelled, Lymphocytes % (Manual) Cancelled, Monocytes % (Manual) Cancelled, Eosinophils % (Manual) Cancelled, Basophils % (Manual) Cancelled, Metamyelocytes % Cancelled, Myelocytes % Cancelled, Promyelocytes % Cancelled, Blast Cells % Cancelled, Plasma Cell % (Manual) Cancelled, Other Cells % Cancelled, Nucleated RBC % Cancelled, Nucleated RBCs/100 WBC Cancelled, Differential Comment Cancelled, Diff Path Review Cancelled, Hypersegmented Neuts Cancelled, Atypical Lymphocytes Cancelled, Reactive Lymphocytes Cancelled, Smudge Cells Cancelled, Toxic Granulation Cancelled, Toxic Vacuolation Cancelled, Dohle Bodies Cancelled, Stacia Rods Cancelled, Platelet Estimate Cancelled, Plt Morphology Comment Cancelled, RBC Morphology Cancelled 06/21/23 15:52: RBC Morphology Cancelled, Polychromasia Cancelled, Hypochromasia Cancelled, Poikilocytosis Cancelled, Basophilic Stippling Cancelled, Anisocytosis Cancelled, Microcytosis Cancelled, Macrocytosis Cancelled, Spherocytes Cancelled, Sickle Cells Cancelled, Target Cells Cancelled, Tear Drop Cells Cancelled, Ovalocytes Cancelled, Stomatocytes Cancelled, Gautam-[place] Bodies Cancelled, [place] Cells Cancelled, Bite Cells Cancelled, Crenated Cell Cancelled, Acanthocytes (Spur) Cancelled, Rouleaux Cancelled, Schistocytes Cancelled, Sodium Cancelled, Potassium Cancelled, Chloride Cancelled, Carbon Dioxide Cancelled, Anion Gap Cancelled, BUN Cancelled, Creatinine Cancelled, Estim Creat Clear Calc Cancelled, Est GFR (MDRD) Af Amer Cancelled, Est GFR (MDRD) Non-Af Cancelled, BUN/Creatinine Ratio Cancelled, Glucose Cancelled, Calcium Cancelled, Total Bilirubin Cancelled, AST Cancelled, ALT Cancelled, Alkaline Phosphatase Cancelled, Total Protein Cancelled, Albumin Cancelled, Globulin Cancelled, Albumin/Globulin Ratio Cancelled 06/21/23 16:05: PT 14.0, INR 1.1, APTT 28.4, D-Dimer Quant (PE/DVT) 1.66 H*, Lactic Acid 1.4 06/21/23 16:15: WBC 15.6 H, RBC 3.89 L, Hgb 11.9 L, Hct 36.8 L, MCV 94.6, MCH 30.6, MCHC 32.3, RDW Std Deviation 45.2 H, RDW Coeff of Tom 13.2, Plt Count 272, MPV 9.1, Immature Gran % (Auto) 0.600, Neut % (Auto) 79.9 H, Lymph % (Auto) 8.1 L, [place] % (Auto) 4.9, Eos % (Auto) 5.8 H, Baso % (Auto) 0.7, Absolute Neuts (auto) 12.5 H, Absolute Lymphs (auto) 1.26, Nucleated RBC % 0, Sodium 134 L, Potassium 4.3, Chloride 99, Carbon Dioxide 26.0, Anion Gap 9, BUN 15, Creatinine 1.10 H, Est GFR (MDRD) Af Amer 63, Est GFR (MDRD) Non-Af 52 L, BUN/Creatinine Ratio 13.6, Glucose 333 H, Calcium 8.5, Total Bilirubin 0.60, AST 14 L, ALT 16, Alkaline Phosphatase 69, B-Natriuretic Peptide 9.1, Total Protein 7.6, Albumin 2.8 L, Globulin 4.8 H, Albumin/Globulin Ratio 0.6 L 06/21/23 17:00: Urine Color Yellow, Urine Clarity Clear, Urine pH 5.0, Ur Specific [place] 1.020, Urine Protein 30 H, Urine Glucose (UA) 1000 H, Urine Ketones 150 A*, Urine Occult Blood 10 H, Urine Nitrite Negative, Urine Bilirubin Negative, Urine Urobilinogen 1 H, Ur Leukocyte Esterase 500 H, Urine RBC 0 SEEN, Urine WBC 5-10 SEEN, Ur Squamous Epith Cells 5-10 SEEN, Urine Bacteria 1+, Urine Mucus 0 SEEN 06/21/23 21:21: POC Glucose 286 H 06/22/23 06:04: POC Glucose 354 H Micro: Microbiology 06/21/23 17:00 Urine, Clean Catch Legionella Antigen - Final 06/21/23 17:00 Urine, Clean Catch Streptococcus pneumoniae Antigen (M - Final 06/21/23 15:52 Nasal Secretion SARS-CoV-2 & FLU Antigen (Rapid) - Final Radiography Diagnostic Testing: Radiology Impression Chest X-Ray 06/21/23 15:41 IMPRESSION: Mild basilar atelectasis. Electronically Signed: Saúl Diaz DO at 16:43 EST Reading Location ID and State: [facility] / [place] Tel [id number], Service support , Chest CTA 06/21/23 16:58 IMPRESSION: No demonstrated pulmonary embolism or arterial dissection. Bilateral basilar atelectasis. Interstitial prominence. Possible small focal right apical infiltrate. Small left pleural effusion. Cholelithiasis. Fatty liver. Left adrenal nodule. Electronically Signed: Saúl Diaz DO at 18:08 EST Reading Location ID and State: [facility] / [place] Tel [phone], Service support , Physical Exam Narrative General: Alert, oriented, no apparent distress HEENT: Atraumatic, normocephalic Eyes: Anicteric, normal conjunctiva, extraocular movements grossly intact Neck: Supple Respiratory: Clear to auscultation bilaterally, normal respiratory effort Cardiovascular: Regular rate and rhythm GI: Soft, nontender, nondistended Extremities: No edema Musculoskeletal: Moving all extremities Neuro: No overt focal neurological deficits Skin: No rashes appreciated Psych: Cooperative Assessment & Plan Assessment/Plan (1) UTI (urinary tract infection): PLAN: Plan 1. UTI ? Appears that she was on nitrofurantoin as an outpatient however we have no culture data issues continue to have a leukocytosis and she is been having fevers for the last for over a days ? We will obtain a urine culture ? Continue with IV Rocephin ? She does have a history of urinary incontinence -06/22: Cultures pending, continue Rocephin 2. Hypoxia secondary to likely COPD exacerbation ? He does have some expiratory wheezing in her right lower base and this is after a DuoNeb ? She is supposed to be on inhalers as an outpatient but she says that she never had any pulmonary function testing which was supposed to happen today ? We will continue with Solu-Medrol as well as DuoNebs ? Her sister at the age of 42 from COPD -06/22: Patient 83% on room air. Continue steroids and nebs. Urine antigens negative, flu and COVID-negative but will also obtain respiratory panel. BNP only 9.1. Additionally did have elevated D-dimer however CTA negative for PE 3. HTN/HLD ? Blood pressures are stable, can resume her home blood pressure medications ? We will monitor and make adjustments as necessary ? She had an echo about a year ago with normal EF and stage I diastolic dysfunction, will obtain a BNP -06/22: Continue present medications 4. DM2 ? She is on extensive insulin regimen which we will resume as she is being started on steroids ? We will hold metformin ? Accu-Cheks ACHS ? Sign scale insulin ? We will monitor and make adjustments as necessary -06/22: Continue home regimen, glucose higher secondary to infection and steroids, will adjust as needed 5. Anxiety/depression ? Stable ? Continue with her home medications 6. GERD ? Stable ? Continue with PPI 6. She states that she is on methotrexate for osteoarthritis I asked if she meant that she had rheumatoid arthritis she says no that she specifically takes it for osteoarthritis in the med rec it states that she is taking it for breast cancer. Regardless she took it on Tuesday and she is not due again for another 5 days. I discussed with her the need to follow-up with whoever prescribed the methotrexate to clarify the purpose of the medication 7. Left 2 cm adrenal nodule seen on CTA -This was also visualized on a 12/18/2020 scan as a 2 cm left-sided adrenal nodule consistent with adrenal adenoma, given the consistency over 2 years may just be able to continue to monitor DVT: Lovenox 35 minutes was spent on direct patient care, including documentation as well as chart review and collaboration with colleagues Charges/Coding Visit Charges Inpatient E&M: 56073 Subs Hosp L2
[2023-06-22 07:55] LABS: Absolute Lymphocyte Count 1.04 X10^3/uL (0.83-4.51); Absolute Neutrophil Count 8.2 X10^3/uL (2.0-7.7); Basophil# 0.03 X10^3/uL; Basophil% 0.3 % (0-1); Hematocrit 36.7 % (37-47); Lymphocyte # 1.04 X10^3/ul (0.83-4.51); Mean Corp Hgb Conc 32.7 g/dL (32-36); Mean Corpuscular Hgb 31.5 pg (27.0-32.0); Mean Corpuscular Volume 96.3 fL (81-99); Mean Platelet Vol. 9.4 fl (6.2-12.0); Monocyte% 1.1 % (0-10); NRBC Flagged by Analyzer 0 % (0-5); Neutrophil # 8.23 X10^3/uL (2.7-7.7); Neutrophil % 86.9 % (47-70); Platelet Count 277 K/mm3 (150-450); RBC Distribution Width CV 13.2 % (11.6-14.6); RBC Distribution Width SD 46.3 fl (35.1-43.9); Red Blood Count 3.81 M/mm3 (4.2-5.4); White Blood Count 9.5 K/mm3 (4.4-11.0)
[2023-06-22 08:38] LABS: Anion Gap 8 (5-15); BUN 18 mg/dL (7-18); BUN/Creat Ratio 16.4 RATIO (10-20); Calcium,Total 8.6 mg/dL (8.5-10.1); Chloride 103 mmol/L (98-107); EST Glomerular Filtration Rate 52 mL/min (>60); Est Glom Filt Rate - Afr Amer 63 mL/min (>60); Glucose 447 mg/dL (74-106); Potassium 4.4 mmol/L (3.5-5.1); Sodium Level 136 mmol/L (136-145)
[2023-06-22] MEDS: Folic Acid 1 MG Tablet 2 MG PO (08:41)
[2023-06-22] MEDS: Aspirin E.C. 81 MG Tablet PO (08:42)
[2023-06-22] MEDS: Insulin U-500 UNITS/ML PEN 70 UNITS SC ×2 (08:42→11:34)
[2023-06-22] MEDS: Tolterodine Tartrate 4 MG CAP.SA PO (09:53)
[2023-06-22] MEDS: Metoprolol(XL)Succ 100 MG Tablet PO (09:53)
[2023-06-22] MEDS: Loratadine 10 MG Tablet PO (09:53)
[2023-06-22] MEDS: Pantoprazole Sodium 40 MG Tablet PO (09:53)
[2023-06-22] MEDS: hydroCHLOROthiazide 12.5mg 12.5 MG PO (09:54)
[2023-06-22] MEDS: Losartan Potassium 100 MG Tablet PO (09:54)
[2023-06-22] MEDS: Enoxaparin 40 MG/0.4 ML Syringe SC (09:54)
[2023-06-22 11:21] LABS: Bedside Glucose 470 mg/dL (74-106)
--- NOTE | 2023-06-22 13:50 | CASEMGMT ---
CAROL SANZ Assessment: Face to Face with pt for initial transition planning/care coordination assessment. CAROL SANZ introduced self and role at [facility], pt voices understanding and consents to assessment. Pt is A&O x4 and answers all questions appropriately at this time. Care providers, pharmacy, and demographics verified/updated. Admitting Dx: UTI with Hypoxia PCP: Lyla Specialists: [facility] (Lean Six [employer] Black Belt), Alex (Student Life Coordinator), [facility] (National Dedicated Truck Driver) Preferred Pharmacy: [facility] ([place]) Insurance: [facility] Prescription Benefit: yes LNOK: Mica Redd (Daughter) Living Will/HCPOA: Pt. states she does not have a LW but would be interested in information on this ([facility] Pt. states she does have a HCPOA and it is her daughter, Mica. Living Arrangements: Pt lives at home alone in a bi-level home. States there are multiple stairs throughout the home with railings and 3 steps w/o a railing to enter her home. Prior to becoming sick, pt. states she feels she ambulated the stairs okay, but states it became more difficulty once she became sick and it caused her to breathe harder. Prior to this admission, pt. states she was I in all ADLs and IADLs. Transportation: Pt drives self and daughter Mica DME: Shower chair, grab bars, hand held shower, walker (does not use), medical alert system, BIPAP and CPAP (pt. states she does not use either of these because she gets an infection every time she uses them. She states she informed her pneumatic hoist operator about this), and a glucometer/supplies. Pt. denies needs for additional DME at this time. HHC/SNF: Pt. states she went to [facility] in 2020. Denies previous HHC. Pt states no concerns with going home at time of dc. Pt states no further concerns/needs. CM to follow. Advised pt to ask CM if any further question/concerns/needs arise, voices understanding. Pt Goal: Home Plan: Home. Follow PT and increased oxygen need (pt. does not wear oxygen at home).
--- NOTE | 2023-06-22 14:51 | CHAPLAIN ---
Type of Pastoral Visit _x__ Initial Visit ___ Follow-up Visit ___ On-call Visit ___ General Patient Visit ___ Spiritual Assessment ___ Family Conference ___ Bereavement ___ Rapid Response ___ Code Blue ___ Other (describe below) Pastoral Care Referral From _x__ Patient ___ Family ___ Nurse ___ Physician ___ Budget Technician ___ Ground Water Pump Installer ___ Other (describe below) Sacrament/Intervention _x__ Active listening ___ Anointing ___ Voodoo ___ Bereavement ___ Communion ___ Deepa exploration ___ _x__ Life review _x__ Prayer ___ Reconciliation ___ Sacrament of Sick _x__ Supportive presence ___ Wedding ___ Other (describe below) Pastoral Comments patient states how pleased she is with the good care in the hospital; pt also has concerns for a daughter with liver disease; prayer and presence given
[2023-06-22 15:01] LABS: Bedside Glucose 420 mg/dL (74-106)
--- NOTE | 2023-06-22 16:10 | CASEMGMT ---
Social Work SW received referral for Advance Directives. SW met with pt and introduced self and role of SW. SW explained living will and health care power of civil attorney and provided Advance Directive Rack Card and blank documents for review. Pt is not interested in completing documents at this time but will take the information for consideration. Pt aware she can complete documents while in hospital or set an appointment as an outpatient. KAROLINA Conley
[2023-06-22] MEDS: Insulin U-500 UNITS/ML PEN 40 UNITS SC (16:54)
[2023-06-22 17:20] LABS: Bedside Glucose 368 mg/dL (74-106)
[2023-06-22] MEDS: Verapamil SR 240 MG Tablet 120 MG PO (21:45)
[2023-06-22] MEDS: Benzonatate 100 MG Capsule PO (21:45)
[2023-06-22] MEDS: Atorvastatin Calcium 20 MG Tablet PO (21:45)
[2023-06-22] MEDS: Ceftriaxone 1 GM/50 ML BAG IV (21:45)
[2023-06-22] MEDS: Gabapentin 300 MG Capsule PO (21:45)
[2023-06-22 22:11] LABS: Bedside Glucose 280 mg/dL (74-106)
[2023-06-23] VITALS (10 sets, daily range): BP systolic 116–127; BP diastolic 52–56; PULSE 73–88; RESP 18; TEMP 36.4–36.6; O2SAT 87–94
[2023-06-23] MEDS: Insulin Lispro 100 UNIT/ML INSULN.PEN SC ×2 (06:04→12:52)
[2023-06-23] MEDS: Benzonatate 100 MG Capsule PO ×2 (06:04→12:57)
[2023-06-23 06:31] LABS: Bedside Glucose 339 mg/dL (74-106)
[2023-06-23] MEDS: Ipratropium/Albuterol Sulfate 3 ML AMPUL.NEB INHALATION ×2 (06:57→10:59)
[2023-06-23 07:55] LABS: Absolute Lymphocyte Count 1.21 X10^3/uL (0.83-4.51); Absolute Neutrophil Count 15.4 X10^3/uL (2.0-7.7); Basophil# 0.04 X10^3/uL; Basophil% 0.2 % (0-1); Eosinophil# 0.01 X10^3/uL; Eosinophils% 0.1 % (0-5); Hematocrit 33.9 % (37-47); Hemoglobin 10.7 g/dL (12.0-15.0); Lymphocyte # 1.21 X10^3/ul (0.83-4.51); Lymphocyte % 6.9 % (19-41); Mean Corp Hgb Conc 31.6 g/dL (32-36); Mean Corpuscular Hgb 30.3 pg (27.0-32.0); Mean Platelet Vol. 9.5 fl (6.2-12.0); Monocyte# 0.77 X10^3/uL; Monocyte% 4.4 % (0-10); NRBC Flagged by Analyzer 0 % (0-5); Neutrophil # 15.39 X10^3/uL (2.7-7.7); Neutrophil % 87.5 % (47-70); Platelet Count 319 K/mm3 (150-450); RBC Distribution Width CV 13.2 % (11.6-14.6); RBC Distribution Width SD 46.7 fl (35.1-43.9); Red Blood Count 3.53 M/mm3 (4.2-5.4); White Blood Count 17.6 K/mm3 (4.4-11.0)
[2023-06-23 08:31] LABS: Anion Gap 7 (5-15); BUN 23 mg/dL (7-18); BUN/Creat Ratio 21.3 RATIO (10-20); Calcium,Total 8.8 mg/dL (8.5-10.1); Chloride 103 mmol/L (98-107); Creatinine, Serum 1.08 mg/dL (0.55-1.02); EST Glomerular Filtration Rate 53 mL/min (>60); Est Glom Filt Rate - Afr Amer 64 mL/min (>60); Estimated Creatinine Clearance 37.79 ml/min; Glucose 377 mg/dL (74-106); Potassium 4.3 mmol/L (3.5-5.1); Sodium Level 135 mmol/L (136-145)
[2023-06-23] MEDS: Insulin U-500 UNITS/ML PEN 75 UNITS SC ×2 (08:50→12:53)
[2023-06-23] MEDS: Enoxaparin 40 MG/0.4 ML Syringe SC (08:51)
[2023-06-23] MEDS: hydroCHLOROthiazide 12.5mg 12.5 MG PO (08:52)
[2023-06-23] MEDS: Loratadine 10 MG Tablet PO (08:52)
[2023-06-23] MEDS: Tolterodine Tartrate 4 MG CAP.SA PO (08:52)
[2023-06-23] MEDS: Aspirin E.C. 81 MG Tablet PO (08:52)
[2023-06-23] MEDS: predniSONE 20 MG Tablet 40 MG PO (08:52)
[2023-06-23] MEDS: Folic Acid 1 MG Tablet 2 MG PO (08:52)
[2023-06-23] MEDS: Metoprolol(XL)Succ 100 MG Tablet PO (08:52)
[2023-06-23] MEDS: Pantoprazole Sodium 40 MG Tablet PO (08:52)
[2023-06-23] MEDS: Losartan Potassium 100 MG Tablet PO (08:52)
[2023-06-23] MEDS: Doxycycline 100 MG CAPSULE PO (08:53)
[2023-06-23 11:47] LABS: Bedside Glucose 347 mg/dL (74-106)
--- NOTE | 2023-06-23 12:20 | DCINST_ITS ---
Discharge Instructions Diet Discharge Diet: Carb Control Diet Activity Discharge Activity: - (Increase activity as tolerated) Follow Up Care Test Results: Test results from this visit will be discussed in further detail at your follow- up appointment, if applicable. Discharge Plan Admission Admit Date/Time: 06/21/23 19:18 Primary Reason for Your Visit: Shortness of breath Attending Provider: Janet Philip Primary Care Provider: Brayan Arita Consulting Providers: Reji Nelson Instructions Patient Instructions: Asthma and COPD Additional Instructions / Restrictions: DISCHARGE INSTRUCTIONS PLEASE READ *Please take this with you to your next doctors appointment* -You will be discharged on 5 days of Augmentin 875 mg twice daily to treat UTI and COPD exacerbation. You will stop your nitrofurantoin that you are taking at home -You will continue your Trelegy inhaler and you will also be discharged on 4 more days of 40 mg of prednisone daily -Please follow-up with your nursing home manager upon discharge -Continue your insulin at your home doses and contact your primary care physician, we discussed adjusting medicine now versus following up with PCP and given acute illness you indicated you preferred follow-up with your primary care physician -You are found to have a small left nodule on your adrenal gland which was also seen in 2020 and is largely unchanged. Please discuss this with her primary care physician upon discharge -Please call your primary care provider's office upon discharge to schedule a hospital follow up within 1 week. -For any concerning signs or symptoms please call 911 or proceed to the nearest emergency department Discharge Orders/Prescriptions Prescriptions: New prednisone 20 mg Tablet 40 mg PO BREAKFAST 4 Days Qty: 8 0RF amoxicillin-pot clavulanate 875-125 mg tablet 1 tab PO BID 5 Days Qty: 10 0RF Continued hydrochlorothiazide 12.5 mg capsule 12.5 mg PO DAILY gabapentin 300 mg capsule 300 mg PO QHS metoprolol succinate 100 mg tablet extended release 24 hr 100 mg PO DAILY oxybutynin chloride 10 mg tablet extended release 24hr 20 mg PO DAILY aspirin [Adult Low Dose Aspirin] 81 mg tablet,delayed release (DR/EC) 81 mg PO DAILY loratadine 10 mg tablet 10 mg PO DAILY PRN (Reason: ALLERGIES ) (DME) pen needle, diabetic [BD Ultra-Fine Tish Pen Needle] 32 gauge x 5/32 needle See Rx Instructions .ROUTE .MEDSUPPLY Qty: 100 5RF Rx Instructions: tid metformin 500 mg tablet extended release 24 hr 500 mg PO BREAKFAST Patient Comments: COUPLE OF WEEKS SINCE LAST TAKEN. PT STATES THEY RAN OUT AND THAT THEY DO NOT LIKE TAKING IT BECAUSE OF ALL THE BAD THINGS THEY HAVE HEARD ABOUT IT fluticasone propionate 1 SPRAY spray,suspension 1 spray intranasal DAILY PRN (Reason: NASAL CONGESTION ) folic acid 1 mg tablet 2 mg PO DAILY albuterol sulfate [ProAir HFA] 90 mcg/actuation Hfa Aerosol Inhaler 2 puff INHALATION Q4H PRN (Reason: SHORTNESS OF BREATH ) losartan 100 mg tablet 100 mg PO DAILY escitalopram oxalate [Lexapro] 10 mg tablet 10 mg PO DAILY PRN (Reason: DEPRESSION ) Trelegy Ellipta 100-62.5-25 mcg blister with device 1 inh INHALATION DAILY Patient Comments: PT STATES THEY WERE TOLD BY A DOCTOR TO STOP USING THIS TEMPORARILY BECAUSE THEY BELIEVE THE PT MIGHT BE ALLERGIC TO THIS INHALER. esomeprazole magnesium [Nexium] 40 mg capsule,delayed release(DR/EC) 40 mg PO DAILY atorvastatin 20 mg tablet 20 mg PO DAILY Humulin R U-500 (Conc) Kwikpen 500 unit/mL (3 mL) insulin pen 75 unit subcut TIDCM Rx Instructions: 70 BREAKFAST 70 LUNCH 40 DINNER verapamil 120 mg tablet extended release 120 mg PO QHS metaxalone 800 mg tablet 800 mg PO TID PRN (Reason: MUSCLE CRAMPS) fexofenadine [Nury Allergy] 180 mg tablet 180 mg PO BID Held methotrexate sodium 2.5 MG tablet 20 mg PO TEJADA Hold Instructions: Resume on 06/29/23. Hold until finished with augmentin Discontinued nitrofurantoin monohyd/m-cryst 100 mg capsule 100 mg PO BID Rx Instructions: TAKE ONE CAPSULE BY MOUTH TWICE DAILY. FILLED A 7 DAY SUPPLY. 4 CAPSULES (2 DAYS) ARE LEFT. STARTED ON 06-16-23 AND WILL END ON 06-23-23. Referrals / Follow Up: Brayan Arita MD [Primary Care Provider] - Within 1 Week Disposition Disposition (needs filled in before D/C Order can be placed): Home, Self Care
--- NOTE | 2023-06-23 12:31 | DS.PCM_ITS ---
Providers Date of Admission: 06/21/23 Date of Discharge: 06/23/23 Primary Care Physician: Dr. Brayan Arita MD Reason For Visit: UTI and HYPOXIA Diagnosis Discharge Diagnosis (1) COPD with acute exacerbation: Status: Chronic Code(s): J44.1 - Chronic obstructive pulmonary disease with (acute) exacerbation (2) UTI (urinary tract infection): Status: Acute Code(s): N39.0 - Urinary tract infection, site not specified Plan #Hypoxia secondary to likely COPD exacerbation #UTI, not a good john sample but UA and sx consistent so will finish treatment #HTN/HLD #DM2 #Anxiety/depression #GERD #She states that she is on methotrexate for osteoarthritis I asked if she meant that she had rheumatoid arthritis she says no that she #Left 2 cm adrenal nodule seen on CTA Medications at Discharge Home Medications fluticasone propionate 50 mcg/actuation nasal spray,suspension 1 spray intranasal DAILY PRN NASAL CONGESTION 01/30/14 methotrexate sodium 2.5 mg tablet 20 mg PO TEJADA BREAST CANCER 04/16/17 albuterol sulfate 90 mcg/actuation aerosol inhaler (ProAir HFA) 2 puff inhalation Q4H PRN SHORTNESS OF BREATH 06/05/21 escitalopram oxalate 10 mg tablet (Lexapro) 10 mg PO DAILY PRN DEPRESSION 06/05/21 fluticasone fur. 100 mcg-umeclid 62.5 mcg-vilant 25 mcg inhalat.powder (Trelegy Ellipta) 1 inh inhalation DAILY SHORTNESS OF BREATH 06/05/21 folic acid 1 mg tablet 2 mg PO DAILY SUPPLEMENT 06/05/21 hydrochlorothiazide 12.5 mg capsule 12.5 mg PO DAILY BLOOD PRESSURE 06/05/21 losartan 100 mg tablet 100 mg PO DAILY BLOOD PRESSURE 06/05/21 aspirin 81 mg tablet,delayed release (Adult Low Dose Aspirin) 81 mg PO DAILY HEART HEALTH 02/05/22 gabapentin 300 mg capsule 300 mg PO QHS NEUROPATHY 02/05/22 oxybutynin chloride 10 mg tablet,extended release 24 hr 20 mg PO DAILY OVERACTIVE BLADDER 02/05/22 metoprolol succinate 100 mg tablet,extended release 24 hr 100 mg PO DAILY BLOOD PRESSURE 02/24/22 esomeprazole magnesium 40 mg capsule,delayed release (Nexium) 40 mg PO DAILY ACID REFLUX 11/26/22 loratadine 10 mg tablet 10 mg PO DAILY PRN ALLERGIES 11/26/22 metformin 500 mg tablet,extended release 24 hr 500 mg PO BREAKFAST DIABETES 11/26/22 pen needle, diabetic 32 gauge x 5/32 (BD Ultra-Fine Tish Pen Needle) #100 ea 11/26/22 atorvastatin 20 mg tablet 20 mg PO DAILY CHOLESTEROL 06/21/23 fexofenadine 180 mg tablet (Nury Allergy) 180 mg PO BID ALLERGIES 06/21/23 insulin regular hum U-500 conc 500 unit/mL(3 mL) subcut pen (Humulin R U-500 (Conc) Insulin Kwikpen) 75 unit subcut TIDCM 06/21/23 metaxalone 800 mg tablet 800 mg PO TID PRN MUSCLE CRAMPS 06/21/23 verapamil 120 mg tablet,extended release 120 mg PO QHS BLOOD PRESSURE 06/21/23 amoxicillin 875 mg-potassium clavulanate 125 mg tablet 1 tab PO BID 5 days #10 tabs 06/23/23 prednisone 20 mg tablet 40 mg (2 x 20 mg) PO BREAKFAST 4 days #8 tabs 06/23/23 Hospital Course Summary of Care Provided Minutes Spent on Discharge: 33 Hospital Course: 73-year-old female with history of COPD, neuropathy, overactive bladder presented to [facility] 06/21/2023 with increased shortness of breath and coughing. Initially coughing started 2 years ago by her lisinopril was switched to losartan and seems this may have gotten better however over the past week her cough and shortness of breath has been worse and in the ED she was 84% on room air and does not wear home oxygen. She had an elevated D-dimer but CTA chest negative for PE, possible right apical small consolidation. Was being treated with nitrofurantoin at home for UTI however UA concerning for UTI here in the ED and antibiotics were changed. Patient improved on nebs and steroids and antibiotics, seems this was likely a COPD exacerbation and her underlying UTI, she will be discharged on Augmentin 875 mg twice daily for 5 more days and 4 more days of steroids and instructed to follow-up with pulmonology. She did report that she has not been using the Trelegy inhaler for several days leading up to this and cough and wheezing increased since that time, does not have formal diagnosis of COPD and was awaiting PFTs however suspect that not using inhalers put her into an exacerbation of what ever underlying lung condition she has. She did not require any O2 on ambulation prior to discharge. Discharge instructions as followed: DISCHARGE INSTRUCTIONS PLEASE READ *Please take this with you to your next doctors appointment* -You will be discharged on 5 days of Augmentin 875 mg twice daily to treat UTI and COPD exacerbation. You will stop your nitrofurantoin that you are taking at home -You will continue your Trelegy inhaler and you will also be discharged on 4 more days of 40 mg of prednisone daily -Please follow-up with your performance test engineer upon discharge -Continue your insulin at your home doses and contact your primary care physician, we discussed adjusting medicine now versus following up with PCP and given acute illness you indicated you preferred follow-up with your primary care physician -You are found to have a small left nodule on your adrenal gland which was also seen in 2020 and is largely unchanged. Please discuss this with her primary care physician upon discharge -Please call your primary care provider's office upon discharge to schedule a hospital follow up within 1 week. -For any concerning signs or symptoms please call 911 or proceed to the nearest emergency department Physical Exam Narrative General: Alert, oriented, no apparent distress HEENT: Atraumatic, normocephalic Eyes: Anicteric, normal conjunctiva, extraocular movements grossly intact Neck: Supple Respiratory: No wheezes, normal respiratory effort Cardiovascular: Regular rate GI: Soft, nontender, nondistended Extremities: No edema Musculoskeletal: Moving all extremities Neuro: No overt focal neurological deficits Skin: No rashes appreciated Psych: Cooperative Weight / BMI Weight Weight: 93.1 kg Body Mass Index (BMI) 37.5 ABG / Lab / Microbiology Data 06/23/23 07:00 06/23/23 07:00 Laboratory: Laboratory Results - last 24 hr 06/22/23 14:44: POC Glucose 420 H 06/22/23 16:52: POC Glucose 368 H 06/22/23 21:44: POC Glucose 280 H 06/23/23 06:02: POC Glucose 339 H 06/23/23 07:00: WBC 17.6 H, RBC 3.53 L, Hgb 10.7 L, Hct 33.9 L, MCV 96.0, MCH 30 .3, MCHC 31.6 L, RDW Std Deviation 46.7 H, RDW Coeff of Tom 13.2, Plt Count 319, MPV 9.5, Immature Gran % (Auto) 0.900, Neut % (Auto) 87.5 H, Lymph % (Auto) 6.9 L, Rutherford % (Auto) 4.4, Eos % (Auto) 0.1, Baso % (Auto) 0.2, Absolute Neuts (auto) 15.4 H, Absolute Lymphs (auto) 1.21, Nucleated RBC % 0, Sodium 135 L, Potassium 4.3, Chloride 103, Carbon Dioxide 25.0, Anion Gap 7, BUN 23 H, Creatinine 1.08 H , Estim Creat Clear Calc 37.79, Est GFR (MDRD) Af Amer 64, Est GFR (MDRD) Non-Af 53 L, BUN/Creatinine Ratio 21.3 H, Glucose 377 H, Calcium 8.8 06/23/23 11:28: POC Glucose 347 H Microbiology: Microbiology 06/21/23 17:00 Urine, Clean Catch Urine Culture - Final Mixed Gram Positive Organisms 06/22/23 08:40 Mucosa - Nasopharyngeal Respiratory Panel (PCR) - Final 06/21/23 17:00 Urine, Clean Catch Legionella Antigen - Final 06/21/23 17:00 Urine, Clean Catch Streptococcus pneumoniae Antigen (M - Final 06/21/23 15:52 Nasal Secretion SARS-CoV-2 & FLU Antigen (Rapid) - Final D/C Instructions Discharge Diet: Carb Control Diet Meaningful Use Info Meaningful Use Diagnoses (Choose all that apply): None applicable Discharge Plan Admission Admit Date/Time: 06/21/23 19:18 Primary Reason for Your Visit: Shortness of breath Attending Provider: Janet Philip Primary Care Provider: Brayan Arita Consulting Providers: Reji Nelson Instructions Patient Instructions: Asthma and COPD Additional Instructions / Restrictions: DISCHARGE INSTRUCTIONS PLEASE READ *Please take this with you to your next doctors appointment* -You will be discharged on 5 days of Augmentin 875 mg twice daily to treat UTI and COPD exacerbation. You will stop your nitrofurantoin that you are taking at home -You will continue your Trelegy inhaler and you will also be discharged on 4 more days of 40 mg of prednisone daily -Please follow-up with your performance test engineer upon discharge -Continue your insulin at your home doses and contact your primary care physician, we discussed adjusting medicine now versus following up with PCP and given acute illness you indicated you preferred follow-up with your primary care physician -You are found to have a small left nodule on your adrenal gland which was also seen in 202 and is largely unchanged. Please discuss this with her primary care physician upon discharge -Please call your primary care provider's office upon discharge to schedule a hospital follow up within 1 week. -For any concerning signs or symptoms please call 911 or proceed to the nearest emergency department Discharge Orders/Prescriptions Prescriptions: New prednisone 20 mg Tablet 40 mg PO BREAKFAST 4 Days Qty: 8 0RF amoxicillin-pot clavulanate 875-125 mg tablet 1 tab PO BID 5 Days Qty: 10 0RF Continued hydrochlorothiazide 12.5 mg capsule 12.5 mg PO DAILY gabapentin 300 mg capsule 300 mg PO QHS metoprolol succinate 100 mg tablet extended release 24 hr 100 mg PO DAILY oxybutynin chloride 10 mg tablet extended release 24hr 20 mg PO DAILY aspirin [Adult Low Dose Aspirin] 81 mg tablet,delayed release (DR/EC) 81 mg PO DAILY loratadine 10 mg tablet 10 mg PO DAILY PRN (Reason: ALLERGIES ) (DME) pen needle, diabetic [BD Ultra-Fine Tish Pen Needle] 32 gauge x 5/32 needle See Rx Instructions .ROUTE .MEDSUPPLY Qty: 100 5RF Rx Instructions: tid metformin 500 mg tablet extended release 24 hr 500 mg PO BREAKFAST Patient Comments: COUPLE OF WEEKS SINCE LAST TAKEN. PT STATES THEY RAN OUT AND THAT THEY DO NOT LIKE TAKING IT BECAUSE OF ALL THE BAD THINGS THEY HAVE HEARD ABOUT IT fluticasone propionate 1 SPRAY spray,suspension 1 spray intranasal DAILY PRN (Reason: NASAL CONGESTION ) folic acid 1 mg tablet 2 mg PO DAILY albuterol sulfate [ProAir HFA] 90 mcg/actuation Hfa Aerosol Inhaler 2 puff INHALATION Q4H PRN (Reason: SHORTNESS OF BREATH ) losartan 100 mg tablet 100 mg PO DAILY escitalopram oxalate [Lexapro] 10 mg tablet 10 mg PO DAILY PRN (Reason: DEPRESSION ) Trelegy Ellipta 100-62.5-25 mcg blister with device 1 inh INHALATION DAILY Patient Comments: PT STATES THEY WERE TOLD BY A DOCTOR TO STOP USING THIS TEMPORARILY BECAUSE THEY BELIEVE THE PT MIGHT BE ALLERGIC TO THIS INHALER. esomeprazole magnesium [Nexium] 40 mg capsule,delayed release(DR/EC) 40 mg PO DAILY atorvastatin 20 mg tablet 20 mg PO DAILY Humulin R U-500 (Conc) Kwikpen 500 unit/mL (3 mL) insulin pen 75 unit subcut TIDCM Rx Instructions: 70 BREAKFAST 70 LUNCH 40 DINNER verapamil 120 mg tablet extended release 120 mg PO QHS metaxalone 800 mg tablet 800 mg PO TID PRN (Reason: MUSCLE CRAMPS) fexofenadine [Nury Allergy] 180 mg tablet 180 mg PO BID Held methotrexate sodium 2.5 MG tablet 20 mg PO TEJADA Hold Instructions: Resume on 06/29/23. Hold until finished with augmentin Discontinued nitrofurantoin monohyd/m-cryst 100 mg capsule 100 mg PO BID Rx Instructions: TAKE ONE CAPSULE BY MOUTH TWICE DAILY. FILLED A 7 DAY SUPPLY. 4 CAPSULES (2 DAYS) ARE LEFT. STARTED ON 06-16-23 AND WILL END ON 06-23-23. Referrals / Follow Up: Brayan Arita MD [Primary Care Provider] - Within 1 Week Disposition Disposition (needs filled in before D/C Order can be placed): Home, Self Care Charges/Coding Visit Charges Inpatient E&M: 82043 Disch Hosp >30min
--- NOTE | 2023-06-23 13:22 | CASEMGMT ---
Pt. has order in for discharge. CAROL SANZ in to pt. room to discuss needs at discharge. Pt. denies having needs at this time. Pt. states she feels like she may get sick form some coughing she was just doing. I ask if she would like me to notify her nurse but she states she thinks she will be okay. Pt. denies having any additional questions/concerns at this time. CAROL SANZ did inform pt's floor nurse that pt. reported feeling nauseated.
--- NOTE | 2023-06-23 14:25 | PHA.DC.MC.R ---
Pharmacy [facility] Service has performed discharge medication reconciliation and counseling for this patient. The patient was counseled on the following discharge medications and changes in medications for homegoing were reviewed. 1. PREDNISONE 2. AUGMENTIN The Reason for Use, instructions for use, and potential side effects were reviewed for all new medications. The patient's questions regarding all of their medications were answered. The patient was able to verbally demonstrate an understanding of their discharge medications. The patient's discharge medication list was reviewed for discrepancies and discrepancies were resolved. Patient was counselled by Ernst Guthrie PharmD Candidate Medications at Discharge Home Medications fluticasone propionate 50 mcg/actuation nasal spray,suspension 1 spray intranasal DAILY PRN NASAL CONGESTION 01/30/14 methotrexate sodium 2.5 mg tablet 20 mg PO TEJADA BREAST CANCER 04/16/17 albuterol sulfate 90 mcg/actuation aerosol inhaler (ProAir HFA) 2 puff inhalation Q4H PRN SHORTNESS OF BREATH 06/05/21 escitalopram oxalate 10 mg tablet (Lexapro) 10 mg PO DAILY PRN DEPRESSION 06/05/21 fluticasone fur. 100 mcg-umeclid 62.5 mcg-vilant 25 mcg inhalat.powder (Trelegy Ellipta) 1 inh inhalation DAILY SHORTNESS OF BREATH 06/05/21 folic acid 1 mg tablet 2 mg PO DAILY SUPPLEMENT 06/05/21 hydrochlorothiazide 12.5 mg capsule 12.5 mg PO DAILY BLOOD PRESSURE 06/05/21 losartan 100 mg tablet 100 mg PO DAILY BLOOD PRESSURE 06/05/21 aspirin 81 mg tablet,delayed release (Adult Low Dose Aspirin) 81 mg PO DAILY HEART HEALTH 02/05/22 gabapentin 300 mg capsule 300 mg PO QHS NEUROPATHY 02/05/22 oxybutynin chloride 10 mg tablet,extended release 24 hr 20 mg PO DAILY OVERACTIVE BLADDER 02/05/22 metoprolol succinate 100 mg tablet,extended release 24 hr 100 mg PO DAILY BLOOD PRESSURE 02/24/22 esomeprazole magnesium 40 mg capsule,delayed release (Nexium) 40 mg PO DAILY ACID REFLUX 11/26/22 loratadine 10 mg tablet 10 mg PO DAILY PRN ALLERGIES 11/26/22 metformin 500 mg tablet,extended release 24 hr 500 mg PO BREAKFAST DIABETES 11/26/22 pen needle, diabetic 32 gauge x 5/32 (BD Ultra-Fine Tish Pen Needle) #100 ea 11/26/22 atorvastatin 20 mg tablet 20 mg PO DAILY CHOLESTEROL 06/21/23 fexofenadine 180 mg tablet (Nury Allergy) 180 mg PO BID ALLERGIES 06/21/23 insulin regular hum U-500 conc 500 unit/mL(3 mL) subcut pen (Humulin R U-500 (Conc) Insulin Kwikpen) 75 unit subcut TIDCM 06/21/23 metaxalone 800 mg tablet 800 mg PO TID PRN MUSCLE CRAMPS 06/21/23 verapamil 120 mg tablet,extended release 120 mg PO QHS BLOOD PRESSURE 06/21/23 amoxicillin 875 mg-potassium clavulanate 125 mg tablet 1 tab PO BID 5 days #10 tabs 06/23/23 prednisone 20 mg tablet 40 mg (2 x 20 mg) PO BREAKFAST 4 days #8 tabs 06/23/23
== END 2023-06-23 14:46 | disposition home or self-care (01) | DRG 191 ==
LOC: ED 16:13 → MS3 20:30
PROVIDERS: Admitting Provider Family Medicine; Emergency Provider Student in an Organized Health Care Education/Training Program; PCP Family Medicine; Visit Provider Internal Medicine
DX: J44.1 Chronic obstructive pulmonary disease with (acute) exacerbation (principal); E11.40 Type 2 diabetes mellitus with diabetic neuropathy, unspecified; E27.8 Other specified disorders of adrenal gland; N39.0 Urinary tract infection, site not specified; I10 Essential (primary) hypertension; F32.A Depression, unspecified; E78.5 Hyperlipidemia, unspecified; K21.9 Gastro-esophageal reflux disease without esophagitis; F41.9 Anxiety disorder, unspecified; R32 Unspecified urinary incontinence; Z79.51 Long term (current) use of inhaled steroids; Z79.82 Long term (current) use of aspirin; Z79.84 Long term (current) use of oral hypoglycemic drugs; Z79.899 Other long term (current) drug therapy; Z87.891 Personal history of nicotine dependence
CPT/HCPCS: 36415; 71045; 71275; 80048; 80053; 81001; 82962; 83605; 83880; 85025; 85379; 85610; 85730; 87040; 87086; 87088; 87428; 87449; 87633; 93005; 94640; 96361; 96365; 96366; 96372; 96375; 96376; 99221; 99285; J7030; J7050; Q9967; A4216; G0378

== ENCOUNTER → 2023-08-04 | Outpatient (CLI) | payer MEDICARE, SELFPAY ==
[2023-08-04] MEDS: Methacholine Chloride 18 ml neb kit INHALATION (13:04)
--- NOTE | 2023-08-06 05:44 | BRONCHALL ---
Bronchoprovocation Challenge Bronchoprovocation Challenge Bronchoprovocation Challenge: BRONCHOPROVOCATION STUDY INTERPRETATION Brief HPI: Patient is a 73 year old female, currently under the care of Dr. Arce, who presents to [facility] for a bronchoprovocation study secondary to diagnosis of chronic cough. Respiratory therapist reports good effort and reproducible results. Interpretation: Initial spirometry showed no large airways obstructive ventilatory defect. The patient was then given increasingly concentrated doses of methacholine in a stepwise/standardized fashion, using a modified ATS protocol. The patient?s maximum reduction in FEV1 was 19 percent predicted. Impression: Negative Bronchoprovocation study. This is NOT consistent with the diagnosis of asthma.
== END | disposition home or self-care (01) ==
LOC: PSN 12:52
PROVIDERS: PCP Family Medicine
DX: R05.3 Chronic cough (principal)
CPT/HCPCS: 94070; 95070

== ENCOUNTER → 2023-08-25 | Outpatient (CLI) | payer MEDICARE, SELFPAY ==
[2023-08-25 17:40] LABS: Absolute Lymphocyte Count 1.89 X10^3/uL (0.83-4.51); Absolute Neutrophil Count 5.1 X10^3/uL (2.0-7.7); Basophil# 0.07 X10^3/uL; Basophil% 0.8 % (0-1); Eosinophil# 0.72 X10^3/uL; Eosinophils% 8.6 % (0-5); Hematocrit 36.3 % (37-47); Hemoglobin 11.9 g/dL (12.0-15.0); Lymphocyte # 1.89 X10^3/ul (0.83-4.51); Lymphocyte % 22.6 % (19-41); Mean Corp Hgb Conc 32.8 g/dL (32-36); Mean Corpuscular Hgb 31.8 pg (27.0-32.0); Mean Corpuscular Volume 97.1 fL (81-99); Mean Platelet Vol. 9.4 fl (6.2-12.0); NRBC Flagged by Analyzer 0 % (0-5); Neutrophil # 5.14 X10^3/uL (2.7-7.7); Neutrophil % 61.4 % (47-70); Platelet Count 269 K/mm3 (150-450); RBC Distribution Width SD 46.2 fl (35.1-43.9); Red Blood Count 3.74 M/mm3 (4.2-5.4); White Blood Count 8.4 K/mm3 (4.4-11.0)
[2023-08-25 18:08] LABS: ALB/GLOB Ratio 0.7 RATIO (0.9-2.4); AST(SGOT) 20 U/L (15-37); Alanine Aminotransfer ALT/SGPT 18 U/L (13-56); Albumin, Serum 2.8 g/dL (3.2-5.0); Alkaline Phosphatase 55 U/L (45-117); Anion Gap 7 (5-15); BUN 15 mg/dL (7-18); BUN/Creat Ratio 15.8 RATIO (10-20); Calcium,Total 8.4 mg/dL (8.5-10.1); Chloride 105 mmol/L (98-107); Creatinine, Serum 0.95 mg/dL (0.55-1.02); EST Glomerular Filtration Rate 62 mL/min (>60); Est Glom Filt Rate - Afr Amer 75 mL/min (>60); Globulin 3.9 g/dL (2.2-4.2); Glucose 140 mg/dL (74-106); Potassium 3.7 mmol/L (3.5-5.1); Protein, Total 6.7 g/dL (6.4-8.2); Sodium Level 141 mmol/L (136-145)
== END | disposition home or self-care (01) ==
LOC: MTLAB 14:49
PROVIDERS: PCP Family Medicine; Referring Provider Internal Medicine Rheumatology; Visit Provider Internal Medicine Rheumatology
DX: M06.4 Inflammatory polyarthropathy (principal); M18.0 Bilateral primary osteoarthritis of first carpometacarpal joints; G56.03 Carpal tunnel syndrome, bilateral upper limbs; M25.562 Pain in left knee; Z79.899 Other long term (current) drug therapy
CPT/HCPCS: 36415; 80053; 85025

== ENCOUNTER 2023-10-10 23:39 | Inpatient (IN) | payer MEDICARE, SELFPAY ==
[2023-10-10 23:47] VITALS: BP 156/100; PULSE 109; RESP 24; TEMP 36.6; O2SAT 93; BMI 37.9
[2023-10-10 23:54] VITALS: BP 156/100; PULSE 114; RESP 24; O2SAT 92
[2023-10-11] VITALS (24 sets, daily range): BP systolic 120–226; BP diastolic 53–140; PULSE 85–114; RESP 16–30; TEMP 36.6–37.7; O2SAT 87–100; BMI 37.8; BMI 38.0; BMI 38.1
--- NOTE | 2023-10-11 00:33 | RAD_ITS ---
INDICATION: trauma EXAMINATION/TECHNIQUE: X-RAY - XR Hip Unilateral with Pelvis when performed; 2-3 Views COMPARISON: No relevant prior comparison study available FINDINGS: PELVIC BONES: No displaced fracture, destructive or sclerotic lesions. Note that overlapping bowel shadows may however obscure fine detail. Sacroiliac joints are unremarkable. No widening of the pubic symphysis. HIPS: The articular structures are unremarkable. Acute comminuted left femoral intertrochanteric fracture with varus angulation. SOFT TISSUES: No soft tissue swelling or gas. RAD/HIP, UNI W/ Pelvis 2-3 Views IMPRESSION: Acute comminuted left femoral intertrochanteric fracture with varus angulation. No pelvic fracture. Electronically Signed: Anthony Greer MD at 2:02 EST ,
--- NOTE | 2023-10-11 00:33 | CT_ITS ---
INDICATION: fall, trauma EXAMINATION: CT BRAIN - CT Head or Brain W/O Contrast Injection TECHNIQUE: Multiple axial images were obtained of the head without intravenous contrast. A radiation dose optimization technique was used for this scan. IV Contrast dosage and agent: None. RADIATION DOSAGE (If Supplied By Facility): CTDIvol = ( 44.99 ) mGy, DLP = ( 846.73 ) mGycm COMPARISON: 06.30.2017 FINDINGS: BRAIN PARENCHYMA: No intra- or extra-axial hemorrhage. No evidence of acute infarct. No intracranial mass or mass effect. There is preservation of the gold/white matter interface. Posterior fossa structures are unremarkable. Patchy periventricular and deep white matter hypoattenuation is consistent with mild small vessel ischemic change. CSF SPACES: No cerebral volume loss. No hydrocephalus. Basal cisterns are patent. CALVARIUM, SKULL BASE, PARANASAL SINUSES AND MASTOID AIR CELLS: The mastoid air cells and visualized paranasal sinuses are well aerated. The calvarium is intact. No discrete lytic or blastic abnormalities. ORBITS: Both globes, extraocular muscles, optic nerves and retrobulbar fat appear unremarkable. CT/Brain/Head without Contrast IMPRESSION: No acute intracranial finding. Electronically Signed: Anthony Greer MD at 2:19 EST ,
--- NOTE | 2023-10-11 00:33 | RAD_ITS ---
INDICATION: weakness EXAMINATION/TECHNIQUE: X-RAY - XR Chest 1 View COMPARISON: 06.21.2023 FINDINGS: LINES/DEVICES: None. LUNGS: The lungs are well expanded. Right basilar subsegmental atelectasis. No consolidation, edema or effusion. No pneumothorax. MEDIASTINUM AND CARDIOVASCULAR STRUCTURES: Cardiac silhouette not enlarged. Central airways and mediastinal contour are unremarkable. BONES AND SOFT TISSUES: Unremarkable. RAD/Chest 1 View (Portable) IMPRESSION: No acute pulmonary finding. Electronically Signed: Anthony Greer MD at 1:48 EST ,
--- NOTE | 2023-10-11 00:34 | EKG12_ITS ---
Test Reason : Blood Pressure : / mmHG Vent. Rate : 110 BPM Atrial Rate : 110 BPM P-R Int : 176 ms QRS Dur : 082 ms QT Int : 334 ms P-R-T Axes : 041 006 040 degrees QTc Int : 452 ms Sinus tachycardia Inferior infarct (cited on or before 04-MAY-2017) Abnormal ECG Confirmed by LINN ORTIZ, KATHERINE ([id number]), editorial specialist ELISHA WORLEY ([id number]) on 10/17/2023 10:00:06 AM Referred By: Confirmed By:GLORIA ESTEVES MD
--- NOTE | 2023-10-11 00:48 | EX.ED.DYSGE1 ---
HPI History of Present Illness Chief Complaint: Lower Extremity Injury Informant: patient and family Narrative Narrative: Patient is 73-year-old female with history of CKD, gastroparesis, type 2 diabetes mellitus, GERD, hypertension and UTI presenting from home via EMS after fall, left hip pain. Patient does not recall why she fell or how she fell. She told EMS that she was on the floor since 11:00 last night (about 24 hours). She could not recall how long she was on the ground when I spoke with her. She is not on any anticoagulation but does take aspirin daily. Family notes that she has been more weak and seemingly under the weather for the past few weeks. Has had a cough. Patient denies any chest pain, abdominal pain or GI/ symptoms. Is only complaining of feeling cold and having left hip pain. No other complaints or concerns at this time. Patient lives home alone. Does not use any assistive devices at baseline. [facility] Medical History Allergic rhinitis Anxiety Arthritis Asthma Asthma Back problem Breast cancer Breast lump Calcium deficiency Cancer Cardiology follow-up encounter Carpal tunnel syndrome Cataract Chronic bronchitis Chronic cough COPD (chronic obstructive pulmonary disease) COPD (chronic obstructive pulmonary disease) Diabetes Diabetes Dietary restriction Diverticulosis Easy bruising Essential hypertension Former smoker Former smoker Gall stone Gastrointestinal problem GERD (gastroesophageal reflux disease) History of cervical cancer History of Clostridium difficile infection History of edema History of gastrostomy tube placement History of Holter monitoring History of stress test History of vaginal delivery Hives Hypertension IBS (irritable bowel syndrome) Inflammatory polyarthritis Injury of head and neck Internal hemorrhoids Leg cramps Loss of consciousness MSSA (methicillin susceptible Staphylococcus aureus) pneumonia Neuropathy OAB (overactive bladder) Obesity Osteoarthritis Osteoporosis Osteoporosis Pancreatitis Recurrent infections Restless legs Rhabdomyolysis (04/2017) Seasonal allergies Shortness of breath on exertion Sleep apnea Sleep apnea Urinary incontinence UTI (urinary tract infection) Vision problems Wears dentures Wears glasses Home Medications fluticasone propionate 50 mcg/actuation nasal spray,suspension 1 spray intranasal DAILY PRN NASAL CONGESTION 01/30/14 [History Last Taken 06/20/23] methotrexate sodium 2.5 mg tablet 20 mg PO TEJADA BREAST CANCER 04/16/17 [History Last Taken 06/19/23] albuterol sulfate 90 mcg/actuation aerosol inhaler (ProAir HFA) 2 puff inhalation Q4H PRN SHORTNESS OF BREATH 06/05/21 [History Last Taken Unknown] escitalopram oxalate 10 mg tablet (Lexapro) 10 mg PO DAILY PRN DEPRESSION 06/05/21 [History Last Taken 1 Week Ago ~05/29/21] fluticasone fur. 100 mcg-umeclid 62.5 mcg-vilant 25 mcg inhalat.powder (Trelegy Ellipta) 1 inh inhalation DAILY SHORTNESS OF BREATH 06/05/21 [History Last Taken 1 Week Ago ~05/29/21] folic acid 1 mg tablet 2 mg PO DAILY SUPPLEMENT 06/05/21 [History Last Taken 06/20/23] hydrochlorothiazide 12.5 mg capsule 12.5 mg PO DAILY BLOOD PRESSURE 06/05/21 [History Last Taken 06/20/23] losartan 100 mg tablet 100 mg PO DAILY BLOOD PRESSURE 06/05/21 [History Last Taken 06/20/23] aspirin 81 mg tablet,delayed release (Adult Low Dose Aspirin) 81 mg PO DAILY HEART HEALTH 02/05/22 [History Last Taken 06/20/23] gabapentin 300 mg capsule 300 mg PO QHS NEUROPATHY 02/05/22 [History Last Taken 06/20/23] oxybutynin chloride 10 mg tablet,extended release 24 hr 20 mg PO DAILY OVERACTIVE BLADDER 02/05/22 [History Last Taken 06/20/23] metoprolol succinate 100 mg tablet,extended release 24 hr 100 mg PO DAILY BLOOD PRESSURE 02/24/22 [History Last Taken 06/20/23] esomeprazole magnesium 40 mg capsule,delayed release (Nexium) 40 mg PO DAILY ACID REFLUX 11/26/22 [History Last Taken 06/20/23] loratadine 10 mg tablet 10 mg PO DAILY PRN ALLERGIES 11/26/22 [History Last Taken Unknown] metformin 500 mg tablet,extended release 24 hr 500 mg PO BREAKFAST DIABETES 11/26/22 [History Last Taken Unknown] pen needle, diabetic 32 gauge x 32 (BD Ultra-Fine Tish Pen Needle) #100 ea 11/26/22 [Rx Last Taken Unknown] atorvastatin 20 mg tablet 20 mg PO DAILY CHOLESTEROL 06/21/23 [History Last Taken 06/20/23] fexofenadine 180 mg tablet (Nury Allergy) 180 mg PO BID ALLERGIES 06/21/23 [History Last Taken 06/20/23] insulin regular hum U-500 conc 500 unit/mL(3 mL) subcut pen (Humulin R U-500 (Conc) Insulin Kwikpen) 75 unit subcut TIDCM 06/21/23 [History Last Taken 06/21/23] metaxalone 800 mg tablet 800 mg PO TID PRN MUSCLE CRAMPS 06/21/23 [History Last Taken Unknown] verapamil 120 mg tablet,extended release 120 mg PO QHS BLOOD PRESSURE 06/21/23 [History Last Taken 06/20/23] Allergy/AdvReac Type Severity Reaction Status Date / Time JESENIA Inhibitors Allergy Intermediate Cough Verified 10/10/23 23:47 adhesive tape Allergy Intermediate blisters Verified 10/10/23 23:47 dulaglutide [From Trulicity] Allergy Intermediate Gastropares Verified 10/10/23 23:47 is chondroitin sulfate A Allergy Rash Verified 10/10/23 23:47 [From DuoVisc Visco Elastic] hyaluronic acid Allergy Rash Verified 10/10/23 23:47 [From DuoVisc Visco Elastic] NSAIDS (Non-Steroidal Allergy Other Verified 10/10/23 23:47 Anti-Inflamma Family History Other Alcohol abuse Anxiety Arthritis Asthma defect COPD (chronic obstructive pulmonary disease) Cancer Diabetes High cholesterol Hypertension Seizures Surgical History History of appendectomy History of colonoscopy History of hysterectomy History of left mastectomy History of nasal cauterization Social History Smoking Status: Former smoker alcohol intake: current alcohol intake frequency: 0-2 drinks per day substance use type: does not use what type of physical activity do you participate in: none ROS ROS ED Constitutional Constitutional ED: Reports chills; Denies fever(s) ENT ENT ED: Denies rhinorrhea Cardiovascular Cardiovascular: Denies chest pain Respiratory/Chest Respiratory/Chest: Denies cough Gastrointestinal Gastrointestinal: Denies abdominal pain, diarrhea, nausea or vomiting Genitourinary Genitourinary ED: Denies dysuria Musculoskeletal Musculoskeletal: Reports other Details: left hip pain Integumentary Denies rash Neurologic Neurologic: Denies headache(s), paresthesias or weakness Psychiatric Psychiatric: Denies anxiety Hematologic/Lymphatic Hematologic/Lymphatic: Denies easy bleeding or easy bruising EXAM Physical Exam Const Vital Signs: 10/10/23 23:47 10/10/23 23:54 10/11/23 00:55 Temperature 97.9 F 99.9 F H Temperature Source Temporal Oral Pulse Rate 109 H 114 H 111 H Respiratory Rate 24 H 24 H 30 H Blood Pressure 156/100 H 156/100 H 226/80 H Blood Pressure Mean 118 118 128 Pulse Ox 93 92 88 Oxygen Delivery Method Room Air Room Air Room Air Oxygen Flow Rate (L/min) 10/11/23 01:05 10/11/23 01:19 10/11/23 02:24 Temperature 99.9 F H Temperature Source Oral Pulse Rate 109 H 105 H 110 H Respiratory Rate 26 H 28 H 19 H Blood Pressure 226/80 H 175/72 H 174/76 H Blood Pressure Mean 128 106 108 Pulse Ox 91 94 95 Oxygen Delivery Method Room Air Nasal Cannula Room Air Oxygen Flow Rate (L/min) 2 10/11/23 03:18 10/11/23 03:18 Temperature 99.4 F H 99.4 F H Temperature Source Oral Pulse Rate 106 H 102 H Respiratory Rate 24 H 20 H Blood Pressure 175/90 H 175/90 H Blood Pressure Mean 118 118 Pulse Ox 96 96 Oxygen Delivery Method Room Air Oxygen Flow Rate (L/min) 2 Positive well nourished and well developed General Appearance ED: well developed HEENT Reports dry mucous membranes Negative for trauma Mouth ED: Yes dry mucous membranes Mouth: dry mucous membranes Eyes PERRL and EOMs intact bilaterally General Eye ED: Negative for pale conjunctiva Neck supple and no JVD General: Negative for tenderness Chest Wall inspection of chest normal and palpation of chest normal Resp normal respiratory effort and clear to auscultation bilaterally Cardio regular rhythm and no murmurs Rate: tachycardic GI normal to inspection, nondistended, normoactive bowel sounds and non-tender Palpation: Negative for guarding Extremity Extremity Narrative: Tenderness to palpation over the left hip. Left lower extremity shortened and externally rotated. Neuro Neuro Narrative: Oriented x 2 Sensorium / Orientation: alert Motor Exam: general weakness Psych mental status grossly normal Skin no rashes or lesions noted and no wounds MDM MDM MDM Narrative Medical decision making narrative: Patient evaluated for left hip pain and prolonged time on the ground as well as fall of unknown cause. On arrival patient is hypertensive and tachycardic. She is mentating relatively well and clinically appears quite dehydrated. Differential includes intracranial hemorrhage, closed head injury, hip fracture, rhabdomyolysis, MORIAH, arrhythmia and acute infection. Patient is given IV fluids and morphine initially in the emergency room. She is also given a dose of Zofran for nausea. CBC does show leukocytosis however it is unclear if this is reactive associated with her acute trauma prolonged immobilization versus infectious. Her hemoglobin is normal at 13.7 making subacute hemorrhage less likely. CMP shows mildly elevated creatinine 1.19 which is near her baseline but is largely normal. She is hyperglycemic with a glucose of 445 but she has a normal anion gap. Patient is a significantly elevated CK level of greater than 1000 consistent with her clinical presentation. Urinalysis is not consistent with infection at this time. CT of the brain does not show any acute process. Chest x-ray reviewed by myself does not show any acute process. Left hip x-ray reviewed by myself as well as radiology shows acute comminuted left femoral intertrochanteric fracture with varus angulation and no pelvic fracture. Case discussed with Ortho on-call, Dr. Sutton, who recommends n.p.o. and will see the patient in the morning to evaluate for surgical repair. Case is discussed with admitting physician, Dr. Johnson who accepts the patient to the medicine service. Patient continues to be tachycardic and hypertensive in the ER and is given a dose of labetalol in the ER. Does have improvement of pain with morphine in the emergency room. Lab Data Attestation: I reviewed the patient's lab results. Labs: Laboratory Results - last 24 hr 10/11/23 10/11/23 10/11/23 00:45 01:05 02:18 WBC 16.8 H RBC 4.25 Hgb 13.7 Hct 40.2 MCV 94.6 MCH 32.2 H MCHC 34.1 RDW Std Deviation 44.8 H RDW Coeff of Tom 13.2 Plt Count TNP MPV 11.7 Immature Gran % (Auto) 0.600 Neut % (Auto) 90.6 H Lymph % (Auto) 3.0 L [place] % (Auto) 5.5 Eos % (Auto) 0.1 Baso % (Auto) 0.2 Absolute Neuts (auto) 15.2 H Absolute Lymphs (auto) 0.51 L Nucleated RBC % 0 Platelet Estimate ADEQUATE PT Cancelled 13.3 INR Cancelled 1.0 APTT Cancelled 21.7 L Sodium 134 L Potassium 4.6 Chloride 102 Carbon Dioxide 22.0 Anion Gap 10 BUN 18 Creatinine 1.19 H Estim Creat Clear Calc 46.31 Est GFR (MDRD) Af Amer 57 L Est GFR (MDRD) Non-Af 48 L BUN/Creatinine Ratio 15.1 Glucose 445 H Calcium 9.1 Total Bilirubin 0.90 AST 48 H ALT 24 Alkaline Phosphatase 74 Total Creatine Kinase > 1000 H Troponin I High Sens 8 Total Protein 7.7 Albumin 3.1 L Globulin 4.6 H Albumin/Globulin Ratio 0.7 L Urine Color Yellow Urine Clarity Clear Urine pH 5.0 Ur Specific [place] 1.020 Urine Protein 30 H Urine Glucose (UA) 1000 H Urine Ketones 50 H Urine Occult Blood 25 H Urine Nitrite Negative Urine Bilirubin Negative Urine Urobilinogen Normal Ur Leukocyte Esterase Negative Urine RBC 0-5 SEEN Urine WBC 0 SEEN Ur Squamous Epith Cells 0-5 SEEN Urine Bacteria 0 SEEN Urine Mucus 0 SEEN Radiography Chest X-Ray - ED: 1 View, Read by ED Physician, Read by Radiologist and No Acute Disease Diagnostic Testing: Clinical Impression(s) from Imaging Studies Brain CT 10/11/23 00:33 IMPRESSION: No acute intracranial finding. Electronically Signed: Anthony Greer MD at 2:19 EST Reading Location ID and State: [facility] / [place] Tel , Service support , Chest X-Ray 10/11/23 00:33 IMPRESSION: No acute pulmonary finding. Electronically Signed: Anthony Greer MD at 1:48 EST , Hip/Pelvis X-Ray 10/11/23 00:33 IMPRESSION: Acute comminuted left femoral intertrochanteric fracture with varus angulation. No pelvic fracture. Electronically Signed: Anthony Greer MD at 2:02 EST , Rhythm Strip Rhythm Strip: Sinus Tach Ectopy: None EKG Initial EKG: Attestation: I personally reviewed and interpreted this EKG as follows: Interpretation: Sinus Tachycardia Comments: Sinus tachycardia rate 110 bpm Left axis deviation Normal intervals Normal ST segments No significant change compared to prior EKG on 06/21/2023 Management Discussion w/another healthcare provider: Hospitalist and Fountain Supervisor Discharge Plan Triage Chief Complaint: Lower Extremity Injury ED Provider: oLulou Buenrostro Dx/Rx/DC Orders Clinical Impression: Diabetes mellitus, type II, Rhabdomyolysis, Essential hypertension, Closed left hip fracture Prescriptions: No Action hydrochlorothiazide 12.5 mg capsule 12.5 mg PO DAILY gabapentin 300 mg capsule 300 mg PO QHS metoprolol succinate 100 mg tablet extended release 24 hr 100 mg PO DAILY oxybutynin chloride 10 mg tablet extended release 24hr 20 mg PO DAILY aspirin [Adult Low Dose Aspirin] 81 mg tablet,delayed release (DR/EC) 81 mg PO DAILY loratadine 10 mg tablet 10 mg PO DAILY PRN (Reason: ALLERGIES ) (DME) pen needle, diabetic [BD Ultra-Fine Tish Pen Needle] 32 gauge x 5/32 needle See Rx Instructions .ROUTE .MEDSUPPLY Qty: 100 5RF Rx Instructions: tid metformin 500 mg tablet extended release 24 hr 500 mg PO BREAKFAST Patient Comments: COUPLE OF WEEKS SINCE LAST TAKEN. PT STATES THEY RAN OUT AND THAT THEY DO NOT LIKE TAKING IT BECAUSE OF ALL THE BAD THINGS THEY HAVE HEARD ABOUT IT fluticasone propionate 1 SPRAY spray,suspension 1 spray intranasal DAILY PRN (Reason: NASAL CONGESTION ) methotrexate sodium 2.5 MG tablet 20 mg PO TEJADA Hold Instructions: Resume on 06/29/23. Hold until finished with augmentin folic acid 1 mg tablet 2 mg PO DAILY albuterol sulfate [ProAir HFA] 90 mcg/actuation Hfa Aerosol Inhaler 2 puff INHALATION Q4H PRN (Reason: SHORTNESS OF BREATH ) losartan 100 mg tablet 100 mg PO DAILY escitalopram oxalate [Lexapro] 10 mg tablet 10 mg PO DAILY PRN (Reason: DEPRESSION ) Trelegy Ellipta 100-62.5-25 mcg blister with device 1 inh INHALATION DAILY Patient Comments: PT STATES THEY WERE TOLD BY A DOCTOR TO STOP USING THIS TEMPORARILY BECAUSE THEY BELIEVE THE PT MIGHT BE ALLERGIC TO THIS INHALER. esomeprazole magnesium [Nexium] 40 mg capsule,delayed release(DR/EC) 40 mg PO DAILY atorvastatin 20 mg tablet 20 mg PO DAILY Humulin R U-500 (Conc) Kwikpen 500 unit/mL (3 mL) insulin pen 75 unit subcut TIDCM Rx Instructions: 70 BREAKFAST 70 LUNCH 40 DINNER verapamil 120 mg tablet extended release 120 mg PO QHS metaxalone 800 mg tablet 800 mg PO TID PRN (Reason: MUSCLE CRAMPS) fexofenadine [Nury Allergy] 180 mg tablet 180 mg PO BID Primary Care Provider: Brayan Arita Referrals: Brayan Arita MD [Primary Care Provider] - Disposition Disposition: Acute Care Hospital [facility]
[2023-10-11 01:04] LABS: Absolute Lymphocyte Count 0.51 X10^3/uL (0.83-4.51); Absolute Neutrophil Count 15.2 X10^3/uL (2.0-7.7); Basophil# 0.04 X10^3/uL; Basophil% 0.2 % (0-1); Eosinophil# 0.01 X10^3/uL; Eosinophils% 0.1 % (0-5); Hematocrit 40.2 % (37-47); Hemoglobin 13.7 g/dL (12.0-15.0); Lymphocyte # 0.51 X10^3/ul (0.83-4.51); Mean Corp Hgb Conc 34.1 g/dL (32-36); Mean Corpuscular Hgb 32.2 pg (27.0-32.0); Mean Corpuscular Volume 94.6 fL (81-99); Mean Platelet Vol. 11.7 fl (6.2-12.0); Monocyte# 0.92 X10^3/uL; Monocyte% 5.5 % (0-10); NRBC Flagged by Analyzer 0 % (0-5); Neutrophil % 90.6 % (47-70); POSITIVE COUNT YES; POSITIVE DIFFERENTIAL YES; RBC Distribution Width CV 13.2 % (11.6-14.6); RBC Distribution Width SD 44.8 fl (35.1-43.9); Red Blood Count 4.25 M/mm3 (4.2-5.4); White Blood Count 16.8 K/mm3 (4.4-11.0)
[2023-10-11] MEDS: 0.9% Normal Saline (1000mL) 1,000 ML 1000 ML IV (01:09)
[2023-10-11] MEDS: Ondansetron 4 MG/2 ML Vial IV (01:09)
[2023-10-11] MEDS: Morphine 4 MG/ML Syringe IV (01:09)
[2023-10-11 01:17] LABS: Differential Indicated SCAN CRITERIA MET
--- NOTE | 2023-10-11 01:18 | ED.RN ---
INFORMED DR. FERNANDEZ, PT'S BP IS 220'S/80'S NO NEW ORDERS AT THIS TIME.
[2023-10-11 01:37] LABS: Prothrombin Time (Protime)PT. 13.3 SECONDS (11.7-14.9)
[2023-10-11 01:38] LABS: Partial Thromboplast Time 21.7 Seconds (24.1-36.2)
[2023-10-11 01:59] LABS: ALB/GLOB Ratio 0.7 RATIO (0.9-2.4); AST(SGOT) 48 U/L (15-37); Alanine Aminotransfer ALT/SGPT 24 U/L (13-56); Albumin, Serum 3.1 g/dL (3.2-5.0); Alkaline Phosphatase 74 U/L (45-117); Anion Gap 10 (5-15); BUN 18 mg/dL (7-18); BUN/Creat Ratio 15.1 RATIO (10-20); CPK Total, Creatine Kinase > 1000 U/L (26-192); Calcium,Total 9.1 mg/dL (8.5-10.1); Chloride 102 mmol/L (98-107); Creatinine, Serum 1.19 mg/dL (0.55-1.02); EST Glomerular Filtration Rate 48 mL/min (>60); Est Glom Filt Rate - Afr Amer 57 mL/min (>60); Estimated Creatinine Clearance 46.31 ml/min; Globulin 4.6 g/dL (2.2-4.2); Glucose 445 mg/dL (74-106); Potassium 4.6 mmol/L (3.5-5.1); Protein, Total 7.7 g/dL (6.4-8.2); Sodium Level 134 mmol/L (136-145); Troponin-I HS 8 pg/mL (3.0-54.0)
[2023-10-11 02:24] LABS: Bacteria 0 SEEN /hpf (None Seen); Mucous, Urine 0 SEEN /hpf (<or=2+); White Blood Cells 0 SEEN /hpf (0-5)
[2023-10-11 02:26] LABS: Color, Urine Yellow (Yellow); Glucose, Dipstick 1000 mg/dl (Normal); Ketone-Dipstick 50 mg/dl (Negative); Leukocyte Esterase-Dipstick Negative /ul (Negative); Nitrite-Dipstick Negative (Negative); Occult Blood-Urine 25 /ul (Negative); Protein-Dipstick 30 mg/dl (Negative); Urine Bilirubin Dipstick Negative (Negative); Urine Clarity Clear (Clear); Urine Urobilinogen Normal (Normal)
[2023-10-11 02:45] LABS: Red Blood Cells-Urine 0-5 SEEN /hpf (0-5); Squamous Epithelial Cells - UA 0-5 SEEN /hpf (5-10)
--- NOTE | 2023-10-11 02:45 | PCM.HP.STD ---
[facility] - General General Date of Admission: 10/11/23 Date of Service: 10/11/23 Chief Complaint: Left hip pain after fall [facility] Narrative MENDEZ BETH, is a 73 F with a past medical history of essential hypertension, hyperlipidemia, obesity; with BMI of 37.9 this admission, obstructive sleep apnea, diabetes mellitus type 2; of unknown control, history of tobacco abuse; with subsequent asthma/COPD, chronic kidney disease; stage I-II, allergic rhinitis, history of colonic diverticulosis, history of gastroparesis; with subsequent G-tube placement, history of UTI, depression, neuropathy, IBS, GERD, osteoporosis and osteoarthritis who presents to [facility] complaining of left hip pain after fall. Ms. Beth reports her symptoms began 23:00 hrs. on the evening of October 09, 2023 when she fell on onto her floor landing on her left hip and then subsequently unable to get up for approximately 24 hours. She could not recall exactly how long she had been on the ground but she and her family noted she had been becoming more weak over the past few days. Patient lives at home alone and she does not take anticoagulation but she does take a daily aspirin. She denies associated head trauma, LOC, fever, chills, nausea, vomiting, cough, dysuria, diarrhea or constipation. In the ER her x-rays were positive for an acute comminuted Left femoral intertrochanteric fracture with varus angulation with an unremarkable chest x-ray and a nonacute head CT complicated by Rhabdomyolysis from prolonged downtime evidenced by CK of >1,000 U/L present on admission and she was then admitted to the general medical floor for ongoing care for stay that is expected to be greater than 48 hours. [facility] Medical History Allergic rhinitis Anxiety Arthritis Asthma Asthma Back problem Breast cancer Breast lump Calcium deficiency Cancer Cardiology follow-up encounter Carpal tunnel syndrome Cataract Chronic bronchitis Chronic cough COPD (chronic obstructive pulmonary disease) COPD (chronic obstructive pulmonary disease) Diabetes Diabetes Dietary restriction Diverticulosis Easy bruising Essential hypertension Former smoker Former smoker Gall stone Gastrointestinal problem GERD (gastroesophageal reflux disease) History of cervical cancer History of Clostridium difficile infection History of edema History of gastrostomy tube placement History of Holter monitoring History of stress test History of vaginal delivery Hives Hypertension IBS (irritable bowel syndrome) Inflammatory polyarthritis Injury of head and neck Internal hemorrhoids Leg cramps Loss of consciousness MSSA (methicillin susceptible Staphylococcus aureus) pneumonia Neuropathy OAB (overactive bladder) Obesity Osteoarthritis Osteoporosis Osteoporosis Pancreatitis Recurrent infections Restless legs Rhabdomyolysis (04/2017) Seasonal allergies Shortness of breath on exertion Sleep apnea Sleep apnea Urinary incontinence UTI (urinary tract infection) Vision problems Wears dentures Wears glasses Home Medications fluticasone propionate 50 mcg/actuation nasal spray,suspension 1 spray intranasal DAILY PRN NASAL CONGESTION 01/30/14 [History Last Taken 06/20/23] methotrexate sodium 2.5 mg tablet 20 mg PO TEJADA BREAST CANCER 04/16/17 [History Last Taken 06/19/23] albuterol sulfate 90 mcg/actuation aerosol inhaler (ProAir HFA) 2 puff inhalation Q4H PRN SHORTNESS OF BREATH 06/05/21 [History Last Taken Unknown] escitalopram oxalate 10 mg tablet (Lexapro) 10 mg PO DAILY PRN DEPRESSION 06/05/21 [History Last Taken 1 Week Ago ~05/29/21] fluticasone fur. 100 mcg-umeclid 62.5 mcg-vilant 25 mcg inhalat.powder (Trelegy Ellipta) 1 inh inhalation DAILY SHORTNESS OF BREATH 06/05/21 [History Last Taken 1 Week Ago ~05/29/21] folic acid 1 mg tablet 2 mg PO DAILY SUPPLEMENT 06/05/21 [History Last Taken 06/20/23] hydrochlorothiazide 12.5 mg capsule 12.5 mg PO DAILY BLOOD PRESSURE 06/05/21 [History Last Taken 06/20/23] losartan 100 mg tablet 100 mg PO DAILY BLOOD PRESSURE 06/05/21 [History Last Taken 06/20/23] aspirin 81 mg tablet,delayed release (Adult Low Dose Aspirin) 81 mg PO DAILY HEART HEALTH 02/05/22 [History Last Taken 06/20/23] gabapentin 300 mg capsule 300 mg PO QHS NEUROPATHY 02/05/22 [History Last Taken 06/20/23] oxybutynin chloride 10 mg tablet,extended release 24 hr 20 mg PO DAILY OVERACTIVE BLADDER 02/05/22 [History Last Taken 06/20/23] metoprolol succinate 100 mg tablet,extended release 24 hr 100 mg PO DAILY BLOOD PRESSURE 02/24/22 [History Last Taken 06/20/23] esomeprazole magnesium 40 mg capsule,delayed release (Nexium) 40 mg PO DAILY ACID REFLUX 11/26/22 [History Last Taken 06/20/23] loratadine 10 mg tablet 10 mg PO DAILY PRN ALLERGIES 11/26/22 [History Last Taken Unknown] metformin 500 mg tablet,extended release 24 hr 500 mg PO BREAKFAST DIABETES 11/26/22 [History Last Taken Unknown] pen needle, diabetic 32 gauge x 5/32 (BD Ultra-Fine Tish Pen Needle) #100 ea 11/26/22 [Rx Last Taken Unknown] atorvastatin 20 mg tablet 20 mg PO DAILY CHOLESTEROL 06/21/23 [History Last Taken 06/20/23] fexofenadine 180 mg tablet ([place] Allergy) 180 mg PO BID ALLERGIES 06/21/23 [History Last Taken 06/20/23] insulin regular hum U-500 conc 500 unit/mL(3 mL) subcut pen (Humulin R U-500 (Conc) Insulin Kwikpen) 75 unit subcut TIDCM 06/21/23 [History Last Taken 06/21/23] metaxalone 800 mg tablet 800 mg PO TID PRN MUSCLE CRAMPS 06/21/23 [History Last Taken Unknown] verapamil 120 mg tablet,extended release 120 mg PO QHS BLOOD PRESSURE 06/21/23 [History Last Taken 06/20/23] Allergy/AdvReac Type Severity Reaction Status Date / Time JESENIA Inhibitors Allergy Intermediate Cough Verified 10/10/23 23:47 adhesive tape Allergy Intermediate blisters Verified 10/10/23 23:47 dulaglutide [From Trulicity] Allergy Intermediate Gastropares Verified 10/10/23 23:47 is chondroitin sulfate A Allergy Rash Verified 10/10/23 23:47 [From DuoVisc Visco Elastic] hyaluronic acid Allergy Rash Verified 10/10/23 23:47 [From DuoVisc Visco Elastic] NSAIDS (Non-Steroidal Allergy Other Verified 10/10/23 23:47 Anti-Inflamma Family History Other Alcohol abuse Anxiety Arthritis Asthma defect COPD (chronic obstructive pulmonary disease) Cancer Diabetes High cholesterol Hypertension Seizures Surgical History History of appendectomy History of colonoscopy History of hysterectomy History of left mastectomy History of nasal cauterization Social History Smoking Status: Former smoker alcohol intake: current alcohol intake frequency: 0-2 drinks per day substance use type: does not use what type of physical activity do you participate in: none ROS ROS Narrative Review of systems: General: Patient admits to chills but denies fevers. HENT: Denies headache, denies stuffy nose, denies sore throat EYES: Denies changes in vision or discharge from eyes. Resp: Denies cough, denies shortness of breath Cardiac: Denies chest pain GI: Denies abdominal pain, denies changes in bowel, denies nausea or vomiting : Denies changes in urination Extremity: Denies swelling Musculoskeletal: Feels somewhat generally weak and unwell Neuro: Denies any numbness/tingling Heme: Denies any bleeding or bruising Skin: Denies rashes Psychiatric: Patient is extremely anxious Endocrine: No polyuria, polydipsia or polyphagia. The rest of the 14 point ROS was negative except for positives in HPI. Vital Signs Vital Signs Vital Signs: 10/10/23 23:47 10/10/23 23:54 10/11/23 00:55 Temperature 97.9 F 99.9 F H Temperature Source Temporal Oral Pulse Rate 109 H 114 H 111 H Respiratory Rate 24 H 24 H 30 H Blood Pressure 156/100 H 156/100 H 226/80 H Blood Pressure Mean 118 118 128 Pulse Ox 93 92 88 Oxygen Delivery Method Room Air Room Air Room Air Oxygen Flow Rate (L/min) 10/11/23 01:05 10/11/23 01:19 10/11/23 02:24 Temperature 99.9 F H Temperature Source Oral Pulse Rate 109 H 105 H 110 H Respiratory Rate 26 H 28 H 19 H Blood Pressure 226/80 H 175/72 H 174/76 H Blood Pressure Mean 128 106 108 Pulse Ox 91 94 95 Oxygen Delivery Method Room Air Nasal Cannula Room Air Oxygen Flow Rate (L/min) 2 Weight Weight: 207 lb 3.752 oz Body Mass Index (BMI) 37.9 Physical Exam Const alert, oriented x3, no apparent distress, average body habitus and healthy appearing General Appearance: cooperative HEENT normocephalic, head/scalp atraumatic and hearing grossly normal bilaterally HEENT Narrative: Mucous membranes dry. Eyes PERRL and EOMs intact bilaterally Neck no lymphadenopathy and supple Resp normal respiratory effort, no retractions, no use of accessory muscles and clear to auscultation bilaterally Cardio regular rate and regular rhythm GI normal to inspection, nondistended, normoactive bowel sounds, soft to palpation, non-tender and non-distended Extremity Extremity Narrative: Left lower extremity shortened and externally rotated with no signs of vascular compromise. Skin Skin Narrative: Patient has no evidence of rash at this time. Neuro oriented x3, CN's II-XII intact bilaterally, moves all extremities and no focal motor deficits Sensorium / Orientation: awake, alert, oriented to person, oriented to place and oriented to time Speech: speech normal Psych Mood & Affect: anxious Results Medical Records Data Attestation: I reviewed the patient's medical records Lab / Micro Data Attestation: I reviewed the patient's lab results. 10/11/23 00:45 10/11/23 00:45 Labs: Laboratory Results - last 24 hr 10/11/23 00:45: WBC 16.8 H, RBC 4.25, Hgb 13.7, Hct 40.2, MCV 94.6, MCH 32.2 H, MCHC 34.1, RDW Std Deviation 44.8 H, RDW Coeff of Tom 13.2, Plt Count 227, MPV 11.7, Immature Gran % (Auto) 0.600, Neut % (Auto) 90.6 H, Lymph % (Auto) 3.0 L, [place] % (Auto) 5.5, Eos % (Auto) 0.1, Baso % (Auto) 0.2, Absolute Neuts (auto) 15.2 H, Absolute Lymphs (auto) 0.51 L, Nucleated RBC % 0, PT Cancelled, INR Cancelled, APTT Cancelled, Sodium 134 L, Potassium 4.6, Chloride 102, Carbon Dioxide 22.0, Anion Gap 10, BUN 18, Creatinine 1.19 H, Estim Creat Clear Calc 46.31, Est GFR (MDRD) Af Amer 57 L, Est GFR (MDRD) Non-Af 48 L, BUN/Creatinine Ratio 15.1, Glucose 445 H, Calcium 9.1, Total Bilirubin 0.90, AST 48 H, ALT 24, Alkaline Phosphatase 74, Total Creatine Kinase > 1000 H, Troponin I High Sens 8, Total Protein 7.7, Albumin 3.1 L, Globulin 4.6 H, Albumin/Globulin Ratio 0.7 L 10/11/23 01:05: PT 13.3, INR 1.0, APTT 21.7 L 10/11/23 02:18: Urine Color Yellow, Urine Clarity Clear, Urine pH 5.0, Ur Specific [place] 1.020, Urine Protein 30 H, Urine Glucose (UA) 1000 H, Urine Ketones 50 H, Urine Occult Blood 25 H, Urine Nitrite Negative, Urine Bilirubin Negative, Urine Urobilinogen Normal, Ur Leukocyte Esterase Negative Micro: Microbiology 10/11/23 00:49 Mucosa - Nose SARS-CoV-2, Influenza & RSV (PCR) - Final Imaging Radiology Impression Brain CT 10/11/23 00:33 IMPRESSION: No acute intracranial finding. Electronically Signed: Anthony Greer MD at 2:19 EST , Chest X-Ray 10/11/23 00:33 IMPRESSION: No acute pulmonary finding. Electronically Signed: Anthony Greer MD at 1:48 EST , Hip/Pelvis X-Ray 10/11/23 00:33 IMPRESSION: Acute comminuted left femoral intertrochanteric fracture with varus angulation. No pelvic fracture. Electronically Signed: Anthony Greer MD at 2:02 EST , Assessment & Plan Assessment/Plan (1) Closed left hip fracture: QUALIFIERS: Encounter type: initial encounter Qualified Code(s): S72.002A - Fracture of unspecified part of neck of left femur, initial encounter for closed fracture (2) Rhabdomyolysis: QUALIFIERS: Rhabdomyolysis type: traumatic Encounter type: initial encounter Qualified Code(s): T79.6XXA - Traumatic ischemia of muscle, initial encounter PLAN: Plan 1. Acute comminuted Left femoral intertrochanteric fracture with varus angulation after mechanical fall in the setting of known osteoporosis - Admit to general medical floor. Place [place]. Also placed left lower extremity in 5 pounds Henson's traction. Give Tylenol as needed mild to moderate level 1-5 out of 10 pain or fever. Give morphine IV as needed for severe level 6-10 out of 10 pain. Finally, we will consult orthopedic surgeon on-call to see this patient on rounds in the a.m. for further recommendations regarding ORIF with help appreciated in advance. 2. Acute Rhabdomyolysis with CK of greater than 1,000 U/L present on admission due to prolonged downtime complicating #1 - Volume resuscitate and recheck CK and BMP in the a.m. to follow trend 3. Obesity; with BMI of 37.9 this admission plus obstructive sleep apnea - Weight loss will be recommended. Continue nocturnal CPAP. 4. Essential hypertension - Continue home regimen plus give as needed IV hydralazine for systolic blood pressure greater than 160 mmHg. 5. Hyperlipidemia - Resume statin. 6. Diabetes mellitus type 2; of unknown control - Keep n.p.o. for now with impending ORIF. Fingerstick blood sugar every 6 hours. 7. History of tobacco abuse; with subsequent asthma/COPD - Stable with no evidence of acute flare. Continue as needed nebulizers. 8. Chronic kidney disease; stage I-II - Stable. 9. Allergic rhinitis - Noted. 10. History of colonic diverticulosis - Noted. 11. History of gastroparesis; with subsequent G-tube placement - Noted. 12. History of UTI - Noted. 13. Depression - Continue home regimen. 14. Neuropathy - Stable. 15. IBS - Noted. 16. GERD - Stable. 17. Osteoarthritis - Stable. 18. DVT prophylaxis - We we will avoid heparin and heparinoid's in cases of traumatic fracture due to increased risk of bleeding complications. Orthopedic surgeon to decide upon postoperative DVT regimen. Total time: Approximately 55 minutes. Charges/Coding Visit Charges Inpatient E&M: 17341 Init Hosp L2
[2023-10-11 02:49] LABS: Platelet Estimate ADEQUATE (ADEQ)
[2023-10-11] MEDS: 0.9% Normal Saline (1000mL) 1,000 ML 200 ML IV ×4 (03:13→23:33)
[2023-10-11] MEDS: Labetalol (Prefilled) 20 MG/4 ML 10 MG IV (03:13)
[2023-10-11] MEDS: Morphine 2 MG/ML Syringe IV (03:39)
[2023-10-11 07:22] LABS: Absolute Lymphocyte Count 0.77 X10^3/uL (0.83-4.51); Basophil# 0.04 X10^3/uL; Basophil% 0.3 % (0-1); Hematocrit 34.3 % (37-47); Hemoglobin 11.4 g/dL (12.0-15.0); Lymphocyte # 0.77 X10^3/ul (0.83-4.51); Lymphocyte % 5.5 % (19-41); Mean Corp Hgb Conc 33.2 g/dL (32-36); Mean Corpuscular Volume 96.3 fL (81-99); Mean Platelet Vol. 9.8 fl (6.2-12.0); Monocyte# 1.18 X10^3/uL; Monocyte% 8.4 % (0-10); NRBC Flagged by Analyzer 0 % (0-5); Neutrophil # 12.01 X10^3/uL (2.7-7.7); Neutrophil % 85.2 % (47-70); Platelet Count 203 K/mm3 (150-450); RBC Distribution Width CV 13.2 % (11.6-14.6); RBC Distribution Width SD 46.5 fl (35.1-43.9); Red Blood Count 3.56 M/mm3 (4.2-5.4); White Blood Count 14.1 K/mm3 (4.4-11.0)
[2023-10-11 07:40] LABS: International Normalized Ratio 1.1; Prothrombin Time (Protime)PT. 14.2 SECONDS (11.7-14.9)
[2023-10-11 07:50] LABS: CPK Total, Creatine Kinase 890 U/L (26-192)
[2023-10-11 07:51] LABS: AST(SGOT) 31 U/L (15-37); Alanine Aminotransfer ALT/SGPT 24 U/L (13-56); Albumin, Serum 2.7 g/dL (3.2-5.0); Alkaline Phosphatase 60 U/L (45-117); Anion Gap 8 (5-15); BUN 21 mg/dL (7-18); BUN/Creat Ratio 18.3 RATIO (10-20); Bilirubin, Direct 0.24 mg/dL (0.00-0.30); Calcium,Total 7.9 mg/dL (8.5-10.1); Chloride 106 mmol/L (98-107); Creatinine, Serum 1.15 mg/dL (0.55-1.02); EST Glomerular Filtration Rate 49 mL/min (>60); Est Glom Filt Rate - Afr Amer 60 mL/min (>60); Estimated Creatinine Clearance 47.87 ml/min; Globulin 3.9 g/dL (2.2-4.2); Glucose 484 mg/dL (74-106); Potassium 4.5 mmol/L (3.5-5.1); Protein, Total 6.6 g/dL (6.4-8.2); Sodium Level 139 mmol/L (136-145)
[2023-10-11] MEDS: Ipratropium/Albuterol Sulfate 3 ML AMPUL.NEB INHALATION ×2 (08:13→19:35)
[2023-10-11] MEDS: Budesonide Respules 0.5 MG/2 ML AMPUL.NEB. INHALATION ×2 (08:13→19:35)
--- NOTE | 2023-10-11 08:15 | RAD_ITS ---
INDICATION: FX EXAMINATION/TECHNIQUE: X-RAY - XR Left Hip Unilateral; 7 intraoperative Views COMPARISON: October 11, 2023 at 01:20 hours FINDINGS: Intraop view images demonstrate ORIF of the left femur for a comminuted intratrochanteric fracture. Bony fragments demonstrate improved alignment and approximation. RAD/Hip Min 2 Views (Portable) IMPRESSION: ORIF of the left femur. Electronically Signed: Saúl Diaz DO at 17:42 EST ,
[2023-10-11] MEDS: Insulin Lispro 100 UNIT/ML INSULN.PEN 20 UNIT SC (08:18)
--- NOTE | 2023-10-11 09:55 | PN_ITS ---
Subjective Subjective Patient seen and examined. She complained of pain in her LLE due to the fracture. She denied any shortness of breath, palpitations, dizziness, nausea, vomiting or any other symptoms. Review of systems is otherwise negative. She is on 2L of oxygen. Objective Data Objective Data Vital Signs: Vital Signs Temp Pulse Resp BP Pulse Ox O2 Del Method O2 Flow Rate 98.7 F 114 H 18 167/64 H 96 Nasal Cannula 2 10/11/23 07:53 10/11/23 08:15 10/11/23 08:15 10/11/23 07:53 10/11/23 08:15 10/11/23 08:15 10/11/23 08:15 Oxygen Flow Rate (L/min) 2 Oxygen Delivery Method Nasal Cannula Weight: 206 lb 12.697 oz Body Mass Index (BMI) 37.8 Intake & Output: Intake and Output for Last 24 Hours 10/09/23 10/10/23 10/11/23 23:59 23:59 23:59 Intake Total 1960 / 1960 Output Total 1400 / 1400 Balance 560 / 560 Lab / Micro Data 10/11/23 06:49 10/11/23 06:49 Labs: Laboratory Results - last 24 hr 10/11/23 00:45: WBC 16.8 H, RBC 4.25, Hgb 13.7, Hct 40.2, MCV 94.6, MCH 32.2 H, MCHC 34.1, RDW Std Deviation 44.8 H, RDW Coeff of Tom 13.2, Plt Count TNP, MPV 11.7, Immature Gran % (Auto) 0.600, Neut % (Auto) 90.6 H, Lymph % (Auto) 3.0 L, [place] % (Auto) 5.5, Eos % (Auto) 0.1, Baso % (Auto) 0.2, Absolute Neuts (auto) 15.2 H, Absolute Lymphs (auto) 0.51 L, Nucleated RBC % 0, Platelet Estimate ADEQUATE, PT Cancelled, INR Cancelled, APTT Cancelled, Sodium 134 L, Potassium 4.6, Chloride 102, Carbon Dioxide 22.0, Anion Gap 10, BUN 18, Creatinine 1.19 H, Estim Creat Clear Calc 46.31, Est GFR (MDRD) Af Amer 57 L, Est GFR (MDRD) Non-Af 48 L, BUN/Creatinine Ratio 15.1, Glucose 445 H, Calcium 9.1, Total Bilirubin 0.90, AST 48 H, ALT 24, Alkaline Phosphatase 74, Total Creatine Kinase > 1000 H, Troponin I High Sens 8, Total Protein 7.7, Albumin 3.1 L, Globulin 4.6 H, Albumin/Globulin Ratio 0.7 L 10/11/23 01:05: PT 13.3, INR 1.0, APTT 21.7 L 10/11/23 02:18: Urine Color Yellow, Urine Clarity Clear, Urine pH 5.0, Ur Specific [place] 1.020, Urine Protein 30 H, Urine Glucose (UA) 1000 H, Urine Ketones 50 H, Urine Occult Blood 25 H, Urine Nitrite Negative, Urine Bilirubin Negative, Urine Urobilinogen Normal, Ur Leukocyte Esterase Negative, Urine RBC 0-5 SEEN, Urine WBC 0 SEEN, Ur Squamous Epith Cells 0-5 SEEN, Urine Bacteria 0 SEEN, Urine Mucus 0 SEEN 10/11/23 06:49: WBC 14.1 H, RBC 3.56 L, Hgb 11.4 L, Hct 34.3 L, MCV 96.3, MCH 32.0, MCHC 33.2, RDW Std Deviation 46.5 H, RDW Coeff of Tom 13.2, Plt Count 203, MPV 9.8, Immature Gran % (Auto) 0.600, Neut % (Auto) 85.2 H, Lymph % (Auto) 5.5 L, [place] % (Auto) 8.4, Eos % (Auto) 0.0, Baso % (Auto) 0.3, Absolute Neuts (auto) 12.0 H, Absolute Lymphs (auto) 0.77 L, Nucleated RBC % 0, PT 14.2, INR 1.1, APTT 26.0, Sodium 139, Potassium 4.5, Chloride 106, Carbon Dioxide 25.0, Anion Gap 8, BUN 21 H, Creatinine 1.15 H, Estim Creat Clear Calc 47.87, Est GFR (MDRD) Af Amer 60, Est GFR (MDRD) Non-Af 49 L, BUN/Creatinine Ratio 18.3, Glucose 484 H*, Calcium 7.9 L, Total Bilirubin 0.60, Direct Bilirubin 0.24, AST 31, ALT 24, Alkaline Phosphatase 60, Total Creatine Kinase 890 H, Total Protein 6.6, Albumin 2.7 L, Globulin 3.9, Blood Type B POSITIVE, Antibody Screen NEGATIVE Micro: Microbiology 10/11/23 00:49 Mucosa - Nose SARS-CoV-2, Influenza & RSV (PCR) - Final Radiography Diagnostic Testing: Radiology Impression Brain CT 10/11/23 00:33 IMPRESSION: No acute intracranial finding. Electronically Signed: Anthony Greer MD at 2:19 EST , Chest X-Ray 10/11/23 00:33 IMPRESSION: No acute pulmonary finding. Electronically Signed: Anthony Greer MD at 1:48 EST , Hip/Pelvis X-Ray 10/11/23 00:33 IMPRESSION: Acute comminuted left femoral intertrochanteric fracture with varus angulation. No pelvic fracture. Electronically Signed: Anthony Greer MD at 2:02 EST , Rhythm Strip Rhythm Strip: Sinus Tach Ectopy: None Physical Exam Const alert and oriented x3 Constitutional Narrative: frail, in moderate distress. General Appearance: cooperative HEENT normocephalic and head/scalp atraumatic Mouth: dry mucous membranes Eyes PERRL and EOMs intact bilaterally Neck no lymphadenopathy and supple Lymph Lymphatic: no lymphadenopathy noted and no lymphedema noted Resp Resp Narrative: diminished breath sounds bibasally, no wheezes or crackles. On 2L of oxygen by nasal canula Cardio regular rate, regular rhythm, S1 normal heart sound, S2 normal heart sound and no murmurs GI normal to inspection, nondistended, normoactive bowel sounds, soft to palpation and non-tender Extremity normal capillary refill and no clubbing, cyanosis or edema Extremity Narrative: LLE in traction Skin General Skin Exam: no breakdown Neuro CN's II-XII intact bilaterally and no focal motor deficits Motor Exam: general weakness Psych thought process normal and cooperative Assessment & Plan Assessment/Plan (1) Closed left hip fracture: QUALIFIERS: Encounter type: initial encounter Qualified Code(s): S72.002A - Fracture of unspecified part of neck of left femur, initial encounter for closed fracture (2) Rhabdomyolysis: QUALIFIERS: Rhabdomyolysis type: traumatic Encounter type: initial encounter Qualified Code(s): T79.6XXA - Traumatic ischemia of muscle, initial encounter PLAN: Plan #Acute comminuted left hip fracture due to mechanical fall * fell at home and was on the floor for about 24 hours * LLE currently in traction * on PO tylenol, PO oxycodone and IV morphine prn for pain * PT/OT on board * general surgery on board * fall precautions * being hydrated with iVF * NSQIP risk calculator showed that she was at below average risk for serious complication and on average risk for any complication. Patient seen and risk stratified as moderate risk for surgery/ * #Rhabdomyolysis due to mechanical fall * CPK was greater than 9000. Being hydrated with IV fluids. Will trend CPK. #Hyperglycemia in the setting of type 2 diabetes mellitus with neuropathy * Blood sugars at 498 this morning. On U-500 humulin 75 units twice daily. * Insulin sliding scale. currently NPO for surgery * Given a subcu dose of 20 units of lispro this morning. * #Hyperlipidemia: On statin #Benign essential hypertension: IV hydralazine as needed. On hydrochlorothiazide and losartan. Also on verapamil and metoprolol. #History of gastroparesis with G-tube insertion: Stable #Depression: On Lexapro DVT prophylaxis: Lovenox. Charges/Coding Visit Charges Inpatient E&M: 55826 Subs Hosp L3
--- NOTE | 2023-10-11 10:30 | CASEMGMT ---
CAROL SANZ Assessment Face to Face with patient for initial transition planning/care coordination assessment. CAROL SANZ introduced self and role at [facility], pt voices understanding. Pt is A&Ox3 and is resting comfortably in bed and is calm. Pt daughter at bedside. Care providers, pharmacy, and demographics verified. Admitting dx: Lt Hip Fx after Fall with Myotoxicity LACE Strata: 2 PCP: Lyla Specialists: , [place] Preferred Pharmacy: [facility] Benefit: Yes LNOK: Mica Redd (Daughter) Living Arrangements: Pt currently lives alone in a 2 story home with a BM with HR throughout and 2 steps to enter the home. Pt daughter states that the pt may come live with her after DC unless the pt needs to go to a skilled facility. ADLs/IADLs: Normally ind Transportation: Pt and pt daughter drive DME: [facility] and enough supplies to check her BS. Denies home O2 use. Pt daughter states that she has DME at her home. This includes: Rollator, walker, raised toilet seat, and walk in shower with seat. HHC/SNF: History at [facility] x 6 years ago for a fall. Denies C History. Plan: TBD. Pt is having surgery today at 1300. Therapy then to evaluate the pt. The pt daughter states the pt has lived at her home before. The pt and pt daughter are agreeable to wait until after surgery and see how therapy goes to see what the pt qualifies for. At this point the plan is either DC to the pt daughter home or SNF. Will follow. Dread Sutton RN, CM
[2023-10-11] MEDS: Metoprolol(XL)Succ 100 MG Tablet PO (11:29)
[2023-10-11] MEDS: Insulin Lispro 100 UNIT/ML INSULN.PEN SC ×3 (11:31→23:33)
[2023-10-11] MEDS: CLARIFY ORDER 1 EACH NOTE ×2 (12:02→12:03)
[2023-10-11 12:09] LABS: Bedside Glucose 372 mg/dL (74-106)
--- NOTE | 2023-10-11 12:16 | NURSING ---
Patient in AC for surgery pre op. OR nurse at bedside to assist with removal of 3 rings on fingers, swollen. left hand ring removed. continued attempt on right hand. patient tolerating.
[2023-10-11] MEDS: Albuterol 2.5 MG/3 ML VIAL.NEB. INHALATION (13:00)
--- NOTE | 2023-10-11 13:23 | CONS.ORTHO ---
HPI Consult Data Date of Consult: 10/11/23 HPI Narrative HPI Narrative: MENDEZ KEITH, is a 73 F who presents after falling 2 days ago injuring her left hip. Patient states she was up on a chair. She was trying to get something off her refrigerator. She ultimately was found to have a hip fracture. She was brought to the hospital. She was evaluated by the emergency room doctor. She was evaluated by the hospitalist. Patient was admitted with a diagnosis of a hip fracture. Orthopedics was consulted. She has been evaluated now by the anesthesia department as well. Patient states she had no significant left hip pain prior to falling. Does have a history of Breast cancer without any known metastatic process FOR[facility]LY [facility] Medical History Allergic rhinitis Anxiety Arthritis Asthma Asthma Back problem Breast cancer Breast lump Calcium deficiency Cancer Cardiology follow-up encounter Carpal tunnel syndrome Cataract Chronic bronchitis Chronic cough COPD (chronic obstructive pulmonary disease) COPD (chronic obstructive pulmonary disease) Diabetes Diabetes Dietary restriction Diverticulosis Easy bruising Essential hypertension Former smoker Former smoker Gall stone Gastrointestinal problem GERD (gastroesophageal reflux disease) History of cervical cancer History of Clostridium difficile infection History of edema History of gastrostomy tube placement History of Holter monitoring History of stress test History of vaginal delivery Hives Hypertension IBS (irritable bowel syndrome) Inflammatory polyarthritis Injury of head and neck Internal hemorrhoids Leg cramps Loss of consciousness MSSA (methicillin susceptible Staphylococcus aureus) pneumonia Neuropathy OAB (overactive bladder) Obesity Osteoarthritis Osteoporosis Osteoporosis Pancreatitis Recurrent infections Restless legs Rhabdomyolysis (04/2017) Seasonal allergies Shortness of breath on exertion Sleep apnea Sleep apnea Urinary incontinence UTI (urinary tract infection) Vision problems Wears dentures Wears glasses Home Medications fluticasone propionate 50 mcg/actuation nasal spray,suspension 1 spray intranasal DAILY PRN NASAL CONGESTION 01/30/14 [History Last Taken 06/20/23] methotrexate sodium 2.5 mg tablet 20 mg PO TEJADA BREAST CANCER 04/16/17 [History Last Taken 06/19/23] albuterol sulfate 90 mcg/actuation aerosol inhaler (ProAir HFA) 2 puff inhalation Q4H PRN SHORTNESS OF BREATH 06/05/21 [History Last Taken Unknown] escitalopram oxalate 10 mg tablet (Lexapro) 10 mg PO DAILY PRN DEPRESSION 06/05/21 [History Last Taken 1 Week Ago ~05/29/21] fluticasone fur. 100 mcg-umeclid 62.5 mcg-vilant 25 mcg inhalat.powder (Trelegy Ellipta) 1 inh inhalation DAILY SHORTNESS OF BREATH 06/05/21 [History Last Taken 1 Week Ago ~05/29/21] folic acid 1 mg tablet 2 mg PO DAILY SUPPLEMENT 06/05/21 [History Last Taken 06/20/23] hydrochlorothiazide 12.5 mg capsule 12.5 mg PO DAILY BLOOD PRESSURE 06/05/21 [History Last Taken 06/20/23] losartan 100 mg tablet 100 mg PO DAILY BLOOD PRESSURE 06/05/21 [History Last Taken 06/20/23] aspirin 81 mg tablet,delayed release (Adult Low Dose Aspirin) 81 mg PO DAILY HEART HEALTH 02/05/22 [History Last Taken 06/20/23] gabapentin 300 mg capsule 300 mg PO QHS NEUROPATHY 02/05/22 [History Last Taken 06/20/23] oxybutynin chloride 10 mg tablet,extended release 24 hr 20 mg PO DAILY OVERACTIVE BLADDER 02/05/22 [History Last Taken 06/20/23] metoprolol succinate 100 mg tablet,extended release 24 hr 100 mg PO DAILY BLOOD PRESSURE 02/24/22 [History Last Taken 06/20/23] esomeprazole magnesium 40 mg capsule,delayed release (Nexium) 40 mg PO DAILY ACID REFLUX 11/26/22 [History Last Taken 06/20/23] loratadine 10 mg tablet 10 mg PO DAILY PRN ALLERGIES 11/26/22 [History Last Taken Unknown] metformin 500 mg tablet,extended release 24 hr 500 mg PO BREAKFAST DIABETES 11/26/22 [History Last Taken Unknown] pen needle, diabetic 32 gauge x 5/32 (BD Ultra-Fine Tish Pen Needle) #100 ea 11/26/22 [Rx Last Taken Unknown] atorvastatin 20 mg tablet 20 mg PO DAILY CHOLESTEROL 06/21/23 [History Last Taken 06/20/23] fexofenadine 180 mg tablet (Nury Allergy) 180 mg PO BID ALLERGIES 06/21/23 [History Last Taken 06/20/23] insulin regular hum U-500 conc 500 unit/mL(3 mL) subcut pen (Humulin R U-500 (Conc) Insulin Kwikpen) 75 unit subcut TIDCM 06/21/23 [History Last Taken 06/21/23] metaxalone 800 mg tablet 800 mg PO TID PRN MUSCLE CRAMPS 06/21/23 [History Last Taken Unknown] verapamil 120 mg tablet,extended release 120 mg PO QHS BLOOD PRESSURE 06/21/23 [History Last Taken 06/20/23] Allergy/AdvReac Type Severity Reaction Status Date / Time JESENIA Inhibitors Allergy Intermediate Cough Verified 10/10/23 23:47 adhesive tape Allergy Intermediate blisters Verified 10/10/23 23:47 dulaglutide [From Trulicity] Allergy Intermediate Gastropares Verified 10/10/23 23:47 is chondroitin sulfate A Allergy Rash Verified 10/10/23 23:47 [From DuoVisc Visco Elastic] hyaluronic acid Allergy Rash Verified 10/10/23 23:47 [From DuoVisc Visco Elastic] NSAIDS (Non-Steroidal Allergy Other Verified 10/10/23 23:47 Anti-Inflamma Family History Other Alcohol abuse Anxiety Arthritis Asthma defect COPD (chronic obstructive pulmonary disease) Cancer Diabetes High cholesterol Hypertension Seizures Surgical History History of appendectomy History of colonoscopy History of hysterectomy History of left mastectomy History of nasal cauterization Social History Smoking Status: Former smoker alcohol intake: current alcohol intake frequency: 0-2 drinks per day substance use type: does not use what type of physical activity do you participate in: none ROS ROS Narrative Patient denies any recent changes to eyes ears nose or throat heart or lungs bowel or bladder. She does have acute left hip pain since she cannot walk. Vital Signs Vital Signs Vital Signs: 10/10/23 23:47 10/10/23 23:54 10/11/23 00:55 Temperature 97.9 F 99.9 F H Temperature Source Temporal Oral Pulse Rate 109 H 114 H 111 H Respiratory Rate 24 H 24 H 30 H Respiratory Effort Respiratory Depth Respiratory Pattern Blood Pressure 156/100 H 156/100 H 226/80 H Blood Pressure Mean 118 118 128 Blood Pressure Source Blood Pressure Position Blood Pressure Location Pulse Ox 93 92 88 Oxygen Delivery Method Room Air Room Air Room Air Oxygen Flow Rate (L/min) 10/11/23 01:05 10/11/23 01:19 10/11/23 02:24 Temperature 99.9 F H Temperature Source Oral Pulse Rate 109 H 105 H 110 H Respiratory Rate 26 H 28 H 19 H Respiratory Effort Respiratory Depth Respiratory Pattern Blood Pressure 226/80 H 175/72 H 174/76 H Blood Pressure Mean 128 106 108 Blood Pressure Source Blood Pressure Position Blood Pressure Location Pulse Ox 91 94 95 Oxygen Delivery Method Room Air Nasal Cannula Room Air Oxygen Flow Rate (L/min) 2 10/11/23 03:18 10/11/23 03:18 10/11/23 04:47 Temperature 99.4 F H 99.4 F H 98.2 F Temperature Source Oral Temporal Pulse Rate 106 H 102 H 103 H Respiratory Rate 24 H 20 H 18 Respiratory Effort Respiratory Depth Respiratory Pattern Blood Pressure 175/90 H 175/90 H 174/73 H Blood Pressure Mean 118 118 106 Blood Pressure Source Monitor Blood Pressure Position Semi-Fowlers Blood Pressure Location Right Arm Pulse Ox 96 96 94 Oxygen Delivery Method Room Air Nasal Cannula Oxygen Flow Rate (L/min) 2 2 10/11/23 05:00 10/11/23 07:41 10/11/23 07:53 Temperature 98.7 F Temperature Source Oral Pulse Rate 114 H Respiratory Rate 18 Respiratory Effort Normal Non-Labored Respiratory Depth Normal Respiratory Pattern Normal Blood Pressure 167/64 H Blood Pressure Mean 98 Blood Pressure Source Monitor Blood Pressure Position Supine Blood Pressure Location Right Arm Pulse Ox 97 Oxygen Delivery Method Nasal Cannula Nasal Cannula Nasal Cannula Oxygen Flow Rate (L/min) 2 2 2 10/11/23 08:15 10/11/23 08:15 10/11/23 10:44 Temperature 99.1 F Temperature Source Oral Pulse Rate 114 H 112 H Respiratory Rate 18 18 Respiratory Effort Respiratory Depth Respiratory Pattern Normal Blood Pressure 175/61 H Blood Pressure Mean 99 Blood Pressure Source Monitor Blood Pressure Position Supine Blood Pressure Location Right Leg Pulse Ox 96 93 Oxygen Delivery Method Nasal Cannula Nasal Cannula Oxygen Flow Rate (L/min) 2 2 10/11/23 11:29 10/11/23 13:00 Temperature Temperature Source Pulse Rate 112 H 102 H Respiratory Rate 16 Respiratory Effort Respiratory Depth Respiratory Pattern Normal Blood Pressure Blood Pressure Mean Blood Pressure Source Blood Pressure Position Blood Pressure Location Pulse Ox Oxygen Delivery Method Oxygen Flow Rate (L/min) Weight Weight: 93.8 kg Body Mass Index (BMI) 38.0 Physical Exam Narrative Patient is lying supine. She has no right hip pain with palpation there. No right hip pain with gentle motion of the right hip. She does have left hip pain on palpation. She does have left hip pain with any motion there. She is in Henson's traction. She is able to plantarflex and dorsiflex toes and ankles. No obvious calf pain. ALEXANDER edwards and SCDs on. X-rays and laboratory work reviewed. X-rays AP pelvis AP and lateral left hip shows an intertrochanteric hip fracture with some displacement. Lesser trochanter is a separate fragment. Lab / Micro Data 10/11/23 06:49 10/11/23 06:49 Labs: Laboratory Results - last 24 hr 10/11/23 00:45: WBC 16.8 H, RBC 4.25, Hgb 13.7, Hct 40.2, MCV 94.6, MCH 32.2 H, MCHC 34.1, RDW Std Deviation 44.8 H, RDW Coeff of Tom 13.2, Plt Count TNP, MPV 11.7, Immature Gran % (Auto) 0.600, Neut % (Auto) 90.6 H, Lymph % (Auto) 3.0 L, Brule % (Auto) 5.5, Eos % (Auto) 0.1, Baso % (Auto) 0.2, Absolute Neuts (auto) 15.2 H, Absolute Lymphs (auto) 0.51 L, Nucleated RBC % 0, Platelet Estimate ADEQUATE, PT Cancelled, INR Cancelled, APTT Cancelled, Sodium 134 L, Potassium 4.6, Chloride 102, Carbon Dioxide 22.0, Anion Gap 10, BUN 18, Creatinine 1.19 H, Estim Creat Clear Calc 46.31, Est GFR (MDRD) Af Amer 57 L, Est GFR (MDRD) Non-Af 48 L, BUN/Creatinine Ratio 15.1, Glucose 445 H, Calcium 9.1, Total Bilirubin 0.90, AST 48 H, ALT 24, Alkaline Phosphatase 74, Total Creatine Kinase > 1000 H, Troponin I High Sens 8, Total Protein 7.7, Albumin 3.1 L, Globulin 4.6 H, Albumin/Globulin Ratio 0.7 L 10/11/23 01:05: PT 13.3, INR 1.0, APTT 21.7 L 10/11/23 02:18: Urine Color Yellow, Urine Clarity Clear, Urine pH 5.0, Ur Specific [place] 1.020, Urine Protein 30 H, Urine Glucose (UA) 1000 H, Urine Ketones 50 H, Urine Occult Blood 25 H, Urine Nitrite Negative, Urine Bilirubin Negative, Urine Urobilinogen Normal, Ur Leukocyte Esterase Negative, Urine RBC 0-5 SEEN, Urine WBC 0 SEEN, Ur Squamous Epith Cells 0-5 SEEN, Urine Bacteria 0 SEEN, Urine Mucus 0 SEEN 10/11/23 06:49: WBC 14.1 H, RBC 3.56 L, Hgb 11.4 L, Hct 34.3 L, MCV 96.3, MCH 32.0, MCHC 33.2, RDW Std Deviation 46.5 H, RDW Coeff of Tom 13.2, Plt Count 203, MPV 9.8, Immature Gran % (Auto) 0.600, Neut % (Auto) 85.2 H, Lymph % (Auto) 5.5 L, Brule % (Auto) 8.4, Eos % (Auto) 0.0, Baso % (Auto) 0.3, Absolute Neuts (auto) 12.0 H, Absolute Lymphs (auto) 0.77 L, Nucleated RBC % 0, PT 14.2, INR 1.1, APTT 26.0, Sodium 139, Potassium 4.5, Chloride 106, Carbon Dioxide 25.0, Anion Gap 8, BUN 21 H, Creatinine 1.15 H, Estim Creat Clear Calc 47.87, Est GFR (MDRD) Af Amer 60, Est GFR (MDRD) Non-Af 49 L, BUN/Creatinine Ratio 18.3, Glucose 484 H*, Calcium 7.9 L, Total Bilirubin 0.60, Direct Bilirubin 0.24, AST 31, ALT 24, Alkaline Phosphatase 60, Total Creatine Kinase 890 H, Total Protein 6.6, Albumin 2.7 L, Globulin 3.9, Blood Type B POSITIVE, Antibody Screen NEGATIVE 10/11/23 11:27: POC Glucose 372 H Micro: Microbiology 10/11/23 00:49 Mucosa - Nose SARS-CoV-2, Influenza & RSV (PCR) - Final Rhythm Strip Rhythm Strip: Sinus Tach Ectopy: None Imaging Radiology Impression Brain CT 10/11/23 00:33 IMPRESSION: No acute intracranial finding. Electronically Signed: Anthony Greer MD at 2:19 EST , Chest X-Ray 10/11/23 00:33 IMPRESSION: No acute pulmonary finding. Electronically Signed: Anthony Greer MD at 1:48 EST , Hip/Pelvis X-Ray 10/11/23 00:33 IMPRESSION: Acute comminuted left femoral intertrochanteric fracture with varus angulation. No pelvic fracture. Electronically Signed: Anthony Greer MD at 2:02 EST , Assessment & Plan Assessment/Plan (1) Closed left hip fracture: QUALIFIERS: Encounter type: initial encounter Qualified Code(s): S72.002A - Fracture of unspecified part of neck of left femur, initial encounter for closed fracture PLAN: Her diagnosis and treatment options discussed with her at length. After explaining risk benefits and alternative procedure she would wish to proceed with surgery. She understands we are planning internal fixation. She understands she is at increased risk based on her medical comorbidities including obesity diabetes history of breast cancer, hypertension, etc. Risk of surgery including but not limited to from operative or postoperative complications. Risk of anesthetic complications such as heart attacks, strokes, seizures, or . Risk of infections. Risk of damage to nerves arteries tendons. Risk of inadvertent fractures or dislocations. Risk of bone or wound healing complications. Possibility of nonunion malunion pain stiffness weakness. Possible need for further surgery such as hardware removal. Risk of DVT PE and other potential complications could lead to or disability explained. No guarantees were stated or implied. All of their questions were answered. Appropriate informed consent was obtained and signed for surgical intervention. We will plan Ancef for perioperative antibiotic. We will plan aspirin for postoperative DVT prevention. Patient is hoping to be discharged to her daughter's house. Social service will be consulted. This note was generated with [employer] software. It may contain incorrect words, spelling, and punctuation that were not noted in checking the note before signing.
[2023-10-11] MEDS: Cefazolin 2 GM in 0.9% Normal Saline (100mL Bag) 100 ML IV (13:31)
[2023-10-11 13:37] LABS: Hemoglobin A1c 11.1 % (3.8-5.6)
[2023-10-11] MEDS: Lactated Ringers 1,000 ML 15 ML IV (14:30)
--- NOTE | 2023-10-11 14:49 | PCM.OP.BLANK ---
Problems Associated Problem List Diagnoses (1) Closed left hip fracture: Operative Report Date of Procedure: 10/11/23 Preoperative diagnosis: Left hip displaced intertrochanteric fracture Postoperative diagnosis: Same Title of operation: Left hip open reduction internal fixation, intramedullary nail fixation, locked Surgeon: Dr. Scott Sutton Investigations Consultant: Tyree HEDRICK Anesthesia: General, Dr. Mejia EBL: 50 Medications: Ancef 2 gm Indications for surgery: Patient is an 73-year-old female sustained a hip fracture October 09, 2023. Patient and their family explained diagnosis and treatment options. Patient evaluated by the medical services. Patient did wish to have surgery. Appropriate informed consent obtained and signed. Findings: Patient had a displaced intertrochanteric hip fracture. They underwent standard reduction, internal fixation using a Mari short gamma nail. X-rays taken throughout. child care center assistant director, RYLEY , was utilized throughout the entire procedure. They were vital to the procedure from beginning to end. They help with patient transfer, patient padding and positioning, fracture reduction, maintenance of fracture reduction, internal fixation of implants, wound closure, bandage application, patient transfer. Without surgical physician assistant, surgical time would have been significantly increased and surgical outcome could have been less optimal. Procedure: Patient was taken to the operating room. Placed under a general anesthetic and transferred to the operating table with the help of the assurance assistant. With the help of the assurance assistant patient was prepped and padded for surgery. Operative side foot was well-padded and placed in the traction boot. Uninjured lower extremity was abducted and flexed out of harms way. ALEXANDER hose and SCDs utilized. Fluoroscopy was brought in. With the help of the assurance assistant and manipulation of the limb, reduction was nicely obtained as verified under AP lateral and oblique fluoroscopic images. . Operative hip/thigh was prepped padded draped in usual orthopedic sterile fashion for the procedure. Longitudinal incision was made just proximal to the greater trochanter. Taken through skin and subcutaneous tissue. Sharp awl was placed on the tip of the greater trochanter. Position verified under AP and lateral fluoroscopic images. This was then taken down inside the bone. Slightly bent ball-tipped guide tiago was then placed from the tip of the greater trochanter into the intra-medullary canal of the femur. Its position verified radiographically. Reamer was then done over the tip of this with the help of the assurance assistant holding the soft tissue protector appropriately. . On removing the drill a guidepin was noted to have remained within the drill unknowingly. This from a different case. We therefore thoroughly irrigated with saline as well as sterile Betadine, any potentially contaminated instruments were removed from the field. Surgeon changed his outer gloves. Guide tiago removed. We placed the actual nail after thoroughly irrigating debriding without the use of a guidepin. Outrigger device was utilized to position a guidepin from the lateral cortex of the femur across the fracture site and into the femoral head in a good position centrally, as noted on AP lateral and oblique fluoroscopic images. This was measured. Appropriate reaming done. Appreciate length lag screw was placed from the lateral cortex of the femur into the femoral head. A small amount of the screw was noted to be protruding laterally as planned. No cartilage penetration of the femoral head noted on any x-ray. Fracture was then compressed with the outrigger device. Proximal cap screw was placed by the assurance assistant seated down completely, confirmed, and then loosened one fourth turn. We then used the outrigger device to place distal cross locking screw under standard technique. This was confirmed to be of adequate length in good position on AP and lateral images. Outrigger device removed. Final set of AP and lateral proximal x-rays taken and saved. Incisions thoroughly irrigated. Closing by the assurance assistant with deep 0 Vicryl, mid layer 0 Vicryl, inverted 2-0 Vicryl, skin parul. Puncture wounds closed with inverted 2-0 Vicryl and parul. Xeroform 4 x 4's ABD tape applied. Patient was awoken from their anesthetic, transferred back to their own bed with the help of the assurance assistant and into recovery room in satisfactory condition. Patient will continue to be admitted to the hospital under the hospitalist service. Based on patient's allergy to anti-inflammatories I will plan to use Xarelto 10 mg daily for DVT prevention for 1 month. We will plan 50% weightbearing on her left hip with a walker. This note was generated with [employer] software. It may contain incorrect words, spelling, and punctuation that were not noted in checking the note before signing.
[2023-10-11 17:49] LABS: Bedside Glucose 319 mg/dL (74-106)
[2023-10-11] MEDS: Cefazolin 1 GM/50 ML BAG IV (20:57)
[2023-10-11 22:29] LABS: Bacteria 0 SEEN /hpf (None Seen); Mucous, Urine 0 SEEN /hpf (<or=2+); Squamous Epithelial Cells - UA 0 SEEN /hpf (5-10)
[2023-10-11 22:32] LABS: Color, Urine Yellow (Yellow); Glucose, Dipstick 1000 mg/dl (Normal); Ketone-Dipstick 5 mg/dl (Negative); Leukocyte Esterase-Dipstick 500 /ul (Negative); Nitrite-Dipstick Negative (Negative); Occult Blood-Urine 150 /ul (Negative); Protein-Dipstick 30 mg/dl (Negative); Urine Bilirubin Dipstick Negative (Negative); Urine Clarity Sl. Cloudy (Clear); Urine Urobilinogen Normal (Normal)
[2023-10-11 22:41] LABS: Red Blood Cells-Urine 5-10 SEEN /hpf (0-5)
[2023-10-11 22:42] LABS: White Blood Cells 10-25 SEEN /hpf (0-5)
[2023-10-11] MEDS: Senna/Docusate Sodium 1 Tablet 2 TABLET PO (23:34)
[2023-10-11] MEDS: Acetaminophen 500 MG Tablet 1000 MG PO (23:34)
[2023-10-11] MEDS: Gabapentin 300 MG Capsule PO (23:34)
[2023-10-11] MEDS: Verapamil SR 240 MG Tablet 120 MG PO (23:34)
[2023-10-11] MEDS: Atorvastatin Calcium 20 MG Tablet PO (23:35)
[2023-10-12] VITALS (11 sets, daily range): BP systolic 115–173; BP diastolic 44–83; PULSE 78–93; RESP 16–20; TEMP 36.6–37.1; O2SAT 92–99; BMI 38.1
[2023-10-12 00:03] LABS: Bedside Glucose 272 mg/dL (74-106)
[2023-10-12] MEDS: 0.9% Normal Saline (1000mL) 1,000 ML 200 ML IV (04:11)
[2023-10-12] MEDS: Cefazolin 1 GM/50 ML BAG IV (04:34)
[2023-10-12] MEDS: Losartan Potassium 100 MG Tablet PO (04:35)
[2023-10-12] MEDS: Acetaminophen 500 MG Tablet 1000 MG PO (05:01)
[2023-10-12] MEDS: Rivaroxaban 10 MG Tablet PO (05:01)
[2023-10-12 06:28] LABS: Hematocrit 27.9 % (37-47); Mean Corp Hgb Conc 32.3 g/dL (32-36); Mean Corpuscular Volume 99.3 fL (81-99); Mean Platelet Vol. 9.4 fl (6.2-12.0); Platelet Count 180 K/mm3 (150-450); RBC Distribution Width CV 13.2 % (11.6-14.6); RBC Distribution Width SD 47.6 fl (35.1-43.9); Red Blood Count 2.81 M/mm3 (4.2-5.4); White Blood Count 10.5 K/mm3 (4.4-11.0)
[2023-10-12] MEDS: Insulin Lispro 100 UNIT/ML INSULN.PEN SC ×2 (06:29→11:58)
[2023-10-12 07:02] LABS: Anion Gap 3 (5-15); BUN 21 mg/dL (7-18); BUN/Creat Ratio 24.2 RATIO (10-20); Calcium,Total 7.6 mg/dL (8.5-10.1); Chloride 116 mmol/L (98-107); Creatinine, Serum 0.87 mg/dL (0.55-1.02); EST Glomerular Filtration Rate 68 mL/min (>60); Est Glom Filt Rate - Afr Amer 83 mL/min (>60); Estimated Creatinine Clearance 61.98 ml/min; Glucose 331 mg/dL (74-106); Potassium 4.6 mmol/L (3.5-5.1); Sodium Level 144 mmol/L (136-145)
[2023-10-12] MEDS: Budesonide Respules 0.5 MG/2 ML AMPUL.NEB. INHALATION ×2 (07:26→19:36)
[2023-10-12] MEDS: Ipratropium/Albuterol Sulfate 3 ML AMPUL.NEB INHALATION ×3 (07:26→19:36)
[2023-10-12] MEDS: Metoprolol(XL)Succ 100 MG Tablet PO (08:49)
[2023-10-12] MEDS: Loratadine 10 MG Tablet PO (08:49)
[2023-10-12] MEDS: hydroCHLOROthiazide 12.5mg 12.5 MG PO (08:49)
[2023-10-12] MEDS: Folic Acid 1 MG Tablet 2 MG PO (08:49)
[2023-10-12] MEDS: Pantoprazole Sodium 40 MG Tablet PO (08:49)
[2023-10-12] MEDS: Aspirin E.C. 81 MG Tablet PO (08:49)
[2023-10-12] MEDS: Escitalopram Oxalate 10 MG Tablet PO (08:50)
[2023-10-12] MEDS: Insulin U-500 UNITS/ML PEN 70 UNITS SC ×2 (08:57→11:57)
[2023-10-12] MEDS: Tolterodine Tartrate 4 MG CAP.SA PO (08:59)
--- NOTE | 2023-10-12 09:07 | NURSING ---
update given to both daughters, [place] whom just arrived as well as Mica chun whom requested call.
[2023-10-12 09:45] LABS: Bedside Glucose 319 mg/dL (74-106)
--- NOTE | 2023-10-12 11:32 | PCM.PN.ORT ---
Subjective Subjective Patient is a 73-year-old female status post left hip open reduction internal fixation with intramedullary nail with Dr. Sutton on 10/11/2023. She presented 10/09/2023 after a mechanical fall and had a intertrochanteric fracture of the left hip. Patient resting comfortably in bed. Rates pain 5/ 10 at rest. With movement 7 /10. States taking tylenol, and morphine and oxycodone. and ice help to relieve pain. they have d/c'd morphine due to minor confusion. patient is a&Ox 3 currently. Patient has been up with therapy. Walking with the assist of a walker she is partial weightbearing to left lower extremity. Afebrile, no chest pain, shortness of breath, negative calf pain/ erythema, and no other signs of DVT. Objective Data Objective Data Vital Signs: Vital Signs Temp Pulse Resp BP Pulse Ox O2 Del Method O2 Flow Rate 98.8 F 91 18 132/44 H 95 Nasal Cannula 2 10/12/23 08:40 10/12/23 08:49 10/12/23 08:40 10/12/23 08:40 10/12/23 11:05 10/12/23 08:40 10/12/23 08:40 Oxygen Flow Rate (L/min) 2 Oxygen Delivery Method Nasal Cannula Weight: 93.8 kg Body Mass Index (BMI) 38.0 Intake & Output: Intake and Output for Last 24 Hours 10/10/23 10/11/23 10/12/23 23:59 23:59 23:59 Intake Total 4120 / 4120 2340.00 / 2340.00 Output Total 1675 / 1675 1050 / 1050 Balance 2445 / 2445 1290.00 / 1290.00 Lab / Micro Data 10/12/23 06:13 10/12/23 06:13 Labs: Laboratory Results - last 24 hr 10/11/23 00:47: Hemoglobin A1c 11.1 H 10/11/23 11:27: POC Glucose 372 H 10/11/23 17:30: POC Glucose 319 H 10/11/23 22:10: Urine Color Yellow, Urine Clarity Sl. Cloudy, Urine pH 6.0, Ur Specific [place] 1.020, Urine Protein 30 H, Urine Glucose (UA) 1000 H, Urine Ketones 5 H, Urine Occult Blood 150 H, Urine Nitrite Negative, Urine Bilirubin Negative, Urine Urobilinogen Normal, Ur Leukocyte Esterase 500 H, Urine RBC 5-10 SEEN, Urine WBC 10-25 SEEN, Ur Squamous Epith Cells 0 SEEN, Urine Bacteria 0 SEEN, Urine Mucus 0 SEEN 10/11/23 23:29: POC Glucose 272 H 10/12/23 06:13: WBC 10.5, RBC 2.81 L, Hgb 9.0 L, Hct 27.9 L, MCV 99.3 H, MCH 32.0, MCHC 32.3, RDW Std Deviation 47.6 H, RDW Coeff of Tom 13.2, Plt Count 180, MPV 9.4, Sodium 144, Potassium 4.6, Chloride 116 H, Carbon Dioxide 25.0, Anion Gap 3 L, BUN 21 H, Creatinine 0.87, Estim Creat Clear Calc 61.98, Est GFR (MDRD) Af Amer 83, Est GFR (MDRD) Non-Af 68, BUN/Creatinine Ratio 24.2 H, Glucose 331 H, Calcium 7.6 L 10/12/23 06:28: POC Glucose 319 H Micro: Microbiology 10/11/23 00:49 Mucosa - Nose SARS-CoV-2, Influenza & RSV (PCR) - Final Radiography Diagnostic Testing: Radiology Impression Hip X-Ray 10/11/23 08:15 IMPRESSION: ORIF of the left femur. Electronically Signed: Saúl Diaz DO at 17:42 EST Reading Location ID and State: [address] [place] [address] Tel [phone], Service support , Rhythm Strip Rhythm Strip: Sinus Tach Ectopy: None Physical Exam Narrative Patient resting comfortably in bed No signs of acute distress Satting well on room air Limb is warm to touch, Sensation intact throughout entire lower extremity, including saphenous, sural, superficial and deep peroneal, and tibial distribution. DP/PT pulses bounding. dorsiflexion 5/5 plantar flexion 5/5 Dressing c/d/l Calf nontender to palpation, no erythema, no edema. Negative Homans Assessment & Plan Assessment/Plan (1) Closed left hip fracture: QUALIFIERS: Encounter type: initial encounter Qualified Code(s): S72.002A - Fracture of unspecified part of neck of left femur, initial encounter for closed fracture PLAN: Plan Postop day 1 status post left open reduction internal fixation with intramedullary nail with Dr. Sutton 1. Will continue PT today. Partial weightbearing to left lower extremity. Walker for assistance. 2. Ultimate discharge per primary team. orthopaedically stable. 3. Patient will need to schedule follow-up appointment in our office for 2 weeks postop. 4. WBC 10.5 no acute reactive leukocytosis 5. H/H 9.0/27.9: post operative anemia secondary to acute blood loss intraoperatively. Patient is asymptomatic at this time. No intraoperative complications. will continue to monitor. no acute interventions. 6. DVT prophylaxis : Xarelto 10 mg once daily for 30 days for DVT prophylaxis due to NSAID allergy. 7. Pain control: patient instructed to take tylenol 500mg 2 tablets TID. and oxycodone 1-2 tablets every 4-6 hours only as needed for pain control. 8. ok to remove post op dressing. post op day 5 9. will sign off at this time.
[2023-10-12 11:43] LABS: Bedside Glucose 287 mg/dL (74-106)
[2023-10-12] MEDS: oxyCODONE 5 MG Tablet PO (11:57)
--- NOTE | 2023-10-12 12:27 | PN_ITS ---
Subjective Subjective Patient seen and examined. Her daughter was by her bedside. Patient did appear to be confused and when asked to wait hip pain, she could not even tell me how severe hip pain was. She only said pain was bad. She denied any fever or chills or shortness of breath. Review of systems otherwise negative. Today's postop day 1 for left hip open reduction and internal fixation with intramedullary nail fixation. Objective Data Objective Data Vital Signs: Vital Signs Temp Pulse Resp BP Pulse Ox O2 Del Method O2 Flow Rate 98.8 F 91 18 132/44 H 95 Nasal Cannula 2 10/12/23 08:40 10/12/23 08:49 10/12/23 08:40 10/12/23 08:40 10/12/23 11:05 10/12/23 08:40 10/12/23 08:40 Oxygen Flow Rate (L/min) 2 Oxygen Delivery Method Nasal Cannula Weight: 206 lb 12.697 oz Body Mass Index (BMI) 38.0 Intake & Output: Intake and Output for Last 24 Hours 10/10/23 10/11/23 10/12/23 23:59 23:59 23:59 Intake Total 4120 / 4120 2340.00 / 2340.00 Output Total 1675 / 1675 1050 / 1050 Balance 2445 / 2445 1290.00 / 1290.00 Lab / Micro Data 10/12/23 06:13 10/12/23 06:13 Labs: Laboratory Results - last 24 hr 10/11/23 00:47: Hemoglobin A1c 11.1 H 10/11/23 17:30: POC Glucose 319 H 10/11/23 22:10: Urine Color Yellow, Urine Clarity Sl. Cloudy, Urine pH 6.0, Ur Specific [place] 1.020, Urine Protein 30 H, Urine Glucose (UA) 1000 H, Urine Ketones 5 H, Urine Occult Blood 150 H, Urine Nitrite Negative, Urine Bilirubin Negative, Urine Urobilinogen Normal, Ur Leukocyte Esterase 500 H, Urine RBC 5-10 SEEN, Urine WBC 10-25 SEEN, Ur Squamous Epith Cells 0 SEEN, Urine Bacteria 0 SEEN, Urine Mucus 0 SEEN 10/11/23 23:29: POC Glucose 272 H 10/12/23 06:13: WBC 10.5, RBC 2.81 L, Hgb 9.0 L, Hct 27.9 L, MCV 99.3 H, MCH 32.0, MCHC 32.3, RDW Std Deviation 47.6 H, RDW Coeff of Tom 13.2, Plt Count 180, MPV 9.4, Sodium 144, Potassium 4.6, Chloride 116 H, Carbon Dioxide 25.0, Anion Gap 3 L, BUN 21 H, Creatinine 0.87, Estim Creat Clear Calc 61.98, Est GFR (MDRD) Af Amer 83, Est GFR (MDRD) Non-Af 68, BUN/Creatinine Ratio 24.2 H, Glucose 331 H , Calcium 7.6 L 10/12/23 06:28: POC Glucose 319 H 10/12/23 11:18: POC Glucose 287 H Micro: Microbiology 10/11/23 00:49 Mucosa - Nose SARS-CoV-2, Influenza & RSV (PCR) - Final Radiography Diagnostic Testing: Radiology Impression Hip X-Ray 10/11/23 08:15 IMPRESSION: ORIF of the left femur. Electronically Signed: Saúl Diaz DO at 17:42 EST Reading Location ID and State: [facility] / [place] Tel [phone], Service support , Rhythm Strip Rhythm Strip: Sinus Tach Ectopy: None Physical Exam Const alert, oriented x3, no apparent distress, average body habitus and healthy appearing Constitutional Narrative: frail, in moderate distress. General Appearance: cooperative HEENT normocephalic, head/scalp atraumatic and hearing grossly normal bilaterally Eyes PERRL and EOMs intact bilaterally Neck no lymphadenopathy and supple Lymph Lymphatic: no lymphadenopathy noted and no lymphedema noted Resp normal respiratory effort, no retractions, no use of accessory muscles and clear to auscultation bilaterally Resp Narrative: diminished breath sounds bibasally, no wheezes or crackles. On 2L of oxygen by nasal canula Cardio regular rate, regular rhythm, S1 normal heart sound, S2 normal heart sound and no murmurs GI normal to inspection, nondistended, normoactive bowel sounds, soft to palpation, non-tender and non-distended Extremity normal capillary refill and no clubbing, cyanosis or edema Extremity Narrative: dressing over LLE General Extremity: no tenderness to palpation of joints or extremities Skin General Skin Exam: no breakdown Neuro oriented x3, CN's II-XII intact bilaterally, moves all extremities and no focal motor deficits Sensorium / Orientation: awake, alert, oriented to person, oriented to place and oriented to time Speech: speech normal Motor Exam: general weakness Psych thought process normal and cooperative Mood & Affect: anxious Assessment & Plan Assessment/Plan (1) Closed left hip fracture: QUALIFIERS: Encounter type: initial encounter Qualified Code(s): S72.002A - Fracture of unspecified part of neck of left femur, initial encounter for closed fracture (2) Rhabdomyolysis: QUALIFIERS: Rhabdomyolysis type: traumatic Encounter type: initia l encounter Qualified Code(s): T79.6XXA - Traumatic ischemia of muscle, initial encounter PLAN: Plan #Acute comminuted left hip fracture due to mechanical fall * 's status post left leg open reduction and internal fixation with intramedu llary nail fixation. today is POD 1. * fell at home and was on the floor for about 24 hours * LLE currently in traction * on PO tylenol, PO oxycodone and IV morphine prn for pain * PT/OT on board * general surgery on board * fall precautions * being hydrated with iVF * NSQIP risk calculator showed that she was at below average risk for serious complication and on average risk for any complication. Patient seen and risk stratified as moderate risk for surgery/ * #Rhabdomyolysis due to mechanical fall * CPK was greater than 1000. Being hydrated with IV fluids. Will trend CPK. #Hyperglycemia in the setting of type 2 diabetes mellitus with neuropathy * On U-500 humulin 75 units twice daily. * Ion ISS. Accuchecks ACHS * #Hyperlipidemia: On statin #Benign essential hypertension: IV hydralazine as needed. On hydrochlorothiazide and losartan. Also on verapamil and metoprolol. #History of gastroparesis with G-tube insertion: Stable #Depression: On Lexapro DVT prophylaxis: Lovenox. Charges/Coding Visit Charges Inpatient E&M: 78642 Subs Hosp L2
--- NOTE | 2023-10-12 13:35 | CHAPLAIN ---
Type of Pastoral Visit _x__ Initial Visit ___ Follow-up Visit ___ On-call Visit ___ General Patient Visit ___ Spiritual Assessment ___ Family Conference ___ Bereavement ___ Rapid Response ___ Code Blue ___ Other (describe below) Pastoral Care Referral From _x__ Patient ___ Family ___ Nurse ___ Physician ___ Installer Apprentice ___ First Crusher ___ Other (describe below) Sacrament/Intervention _x__ Active listening ___ Anointing ___ Christianity ___ Bereavement ___ Communion ___ Deepa exploration ___ ___ Life review _x__ Prayer ___ Reconciliation ___ Sacrament of Sick _x__ Supportive presence ___ Wedding ___ Other (describe below) Pastoral Comments patient and daughter are in the room; pt admits to feeling some cloudy since her surgery yesterday; pt gives some updates on her status and what may be planned for her future; daughter is engaged in conversation also; both welcome the visit and a prayer for support; pt will probably go to SNF for some recovery and is accepting of that situation;
[2023-10-12] MEDS: Acetaminophen 325 MG Tablet 650 MG PO ×2 (14:19→20:19)
[2023-10-12] MEDS: 0.9% Saline Lock 10 ML Syringe IV (14:33)
[2023-10-12] MEDS: Morphine 2 MG/ML Syringe IV (14:33)
--- NOTE | 2023-10-12 15:16 | CASEMGMT ---
CAROL CM to pt room at this time. Pt daughter at bedside. The pt and pt daughter are agreeable to going to a skilled facility short term for rehab. Pt then wants to go to her daughters home after that. SW updated and to follow.
--- NOTE | 2023-10-12 15:40 | CASEMGMT ---
Social Work SW received referral from RNCM that pt will need SNF at discharge. SW met with pt's dgt [place] who is leaving the hospital at this time but will come back later this evening. A list of SNF providers including quality and resource use data and consistent with the patient?s preferred geographic region, medical needs, and insurance network were provided from the [employer] Guide. This list was left in pts room. [place] will review list with pt and pt's other daughter Mica and make SNF choices this evening. STEVEN will followup for choices in the morning. KAROLINA Dumont
--- NOTE | 2023-10-12 18:25 | NURSING ---
talked with Bala in lab aware do not see pending urine culture.
[2023-10-12 19:02] LABS: Bedside Glucose 109 mg/dL (74-106)
[2023-10-12] MEDS: Atorvastatin Calcium 20 MG Tablet PO (21:55)
[2023-10-12] MEDS: Verapamil SR 240 MG Tablet 120 MG PO (21:55)
[2023-10-12] MEDS: Gabapentin 300 MG Capsule PO (21:55)
[2023-10-12 23:49] LABS: Bedside Glucose 98 mg/dL (74-106)
[2023-10-13] VITALS (7 sets, daily range): BP systolic 119–167; BP diastolic 44–66; PULSE 70–86; RESP 12–18; TEMP 36.5–36.8; O2SAT 92–99
[2023-10-13] MEDS: Rivaroxaban 10 MG Tablet PO (06:52)
[2023-10-13] MEDS: Acetaminophen 500 MG Tablet 1000 MG PO ×2 (06:53→14:31)
[2023-10-13] MEDS: Ipratropium/Albuterol Sulfate 3 ML AMPUL.NEB INHALATION ×2 (07:16→13:29)
[2023-10-13] MEDS: Budesonide Respules 0.5 MG/2 ML AMPUL.NEB. INHALATION (07:16)
[2023-10-13 07:53] LABS: Hematocrit 26.5 % (37-47); Hemoglobin 8.3 g/dL (12.0-15.0); Mean Corp Hgb Conc 31.3 g/dL (32-36); Mean Corpuscular Hgb 31.2 pg (27.0-32.0); Mean Corpuscular Volume 99.6 fL (81-99); Platelet Count 204 K/mm3 (150-450); RBC Distribution Width CV 13.2 % (11.6-14.6); RBC Distribution Width SD 47.8 fl (35.1-43.9); Red Blood Count 2.66 M/mm3 (4.2-5.4); White Blood Count 8.8 K/mm3 (4.4-11.0)
[2023-10-13] MEDS: Metoprolol(XL)Succ 100 MG Tablet PO (08:10)
[2023-10-13] MEDS: Insulin Lispro 100 UNIT/ML INSULN.PEN SC ×2 (08:10→11:57)
[2023-10-13] MEDS: Insulin U-500 UNITS/ML PEN 70 UNITS SC ×2 (08:10→11:58)
[2023-10-13] MEDS: Escitalopram Oxalate 10 MG Tablet PO (08:11)
[2023-10-13] MEDS: hydroCHLOROthiazide 12.5mg 12.5 MG PO (08:11)
[2023-10-13] MEDS: Tolterodine Tartrate 4 MG CAP.SA PO (08:11)
[2023-10-13] MEDS: Folic Acid 1 MG Tablet 2 MG PO (08:11)
[2023-10-13] MEDS: Loratadine 10 MG Tablet PO (08:11)
[2023-10-13] MEDS: Aspirin E.C. 81 MG Tablet PO (08:11)
[2023-10-13] MEDS: Pantoprazole Sodium 40 MG Tablet PO (08:11)
[2023-10-13] MEDS: Losartan Potassium 100 MG Tablet PO (08:11)
[2023-10-13 08:54] LABS: Bedside Glucose 221 mg/dL (74-106)
[2023-10-13 09:30] LABS: Anion Gap 2 (5-15); BUN 19 mg/dL (7-18); BUN/Creat Ratio 22.7 RATIO (10-20); Calcium,Total 7.6 mg/dL (8.5-10.1); Chloride 111 mmol/L (98-107); Creatinine, Serum 0.84 mg/dL (0.55-1.02); EST Glomerular Filtration Rate 71 mL/min (>60); Est Glom Filt Rate - Afr Amer 86 mL/min (>60); Glucose 212 mg/dL (74-106); Potassium 3.5 mmol/L (3.5-5.1); Sodium Level 140 mmol/L (136-145)
--- NOTE | 2023-10-13 10:23 | PN_ITS ---
Subjective Subjective Patient seen and examined. She did complain of some wheezing overnight. She was alert and responsive. Review of systems is otherwise negative. Objective Data Objective Data Vital Signs: Vital Signs Temp Pulse Resp BP Pulse Ox O2 Del Method O2 Flow Rate 97.7 F L 86 18 167/58 H 95 Nasal Cannula 2 10/13/23 08:10 10/13/23 08:10 10/13/23 08:10 10/13/23 08:10 10/13/23 08:40 10/13/23 08:40 10/13/23 08:40 Oxygen Flow Rate (L/min) 2 Oxygen Delivery Method Nasal Cannula Weight: 206 lb 12.697 oz Body Mass Index (BMI) 38.0 Intake & Output: Intake and Output for Last 24 Hours 10/11/23 10/12/23 10/13/23 23:59 23:59 23:59 Intake Total 4120 / 4120 2740.00 / 2740.00 350 / 350 Output Total 1675 / 1675 1350 / 1350 625 / 625 Balance 2445 / 2445 1390.00 / 1390.00 -275 / -275 Lab / Micro Data 10/13/23 06:42 10/13/23 06:42 Labs: Laboratory Results - last 24 hr 10/12/23 11:18: POC Glucose 287 H 10/12/23 16:16: POC Glucose 109 H 10/12/23 21:49: POC Glucose 98 10/13/23 06:42: WBC 8.8, RBC 2.66 L, Hgb 8.3 L, Hct 26.5 L, MCV 99.6 H, MCH 31.2, MCHC 31.3 L, RDW Std Deviation 47.8 H, RDW Coeff of Tom 13.2, Plt Count 204, MPV 10.0, Sodium 140, Potassium 3.5, Chloride 111 H, Carbon Dioxide 27.0, Anion Gap 2 L, BUN 19 H, Creatinine 0.84, Estim Creat Clear Calc 64.20, Est GFR (MDRD) Af Amer 86, Est GFR (MDRD) Non-Af 71, BUN/Creatinine Ratio 22.7 H, Glucose 212 H, Calcium 7.6 L 10/13/23 08:05: POC Glucose 221 H Micro: Microbiology 10/11/23 00:49 Mucosa - Nose SARS-CoV-2, Influenza & RSV (PCR) - Final Rhythm Strip Rhythm Strip: Sinus Tach Ectopy: None Physical Exam Const alert, oriented x3, no apparent distress, average body habitus and healthy appearing General Appearance: cooperative HEENT normocephalic, head/scalp atraumatic and hearing grossly normal bilaterally Eyes PERRL and EOMs intact bilaterally Neck no lymphadenopathy and supple Lymph Lymphatic: no lymphadenopathy noted and no lymphedema noted Resp normal respiratory effort, no retractions, no use of accessory muscles and clear to auscultation bilaterally Resp Narrative: diminished breath sounds bibasally, no wheezes or crackles. On 2L of oxygen by nasal canula Cardio regular rate, regular rhythm, S1 normal heart sound, S2 normal heart sound and no murmurs GI normal to inspection, nondistended, normoactive bowel sounds, soft to palpation, non-tender and non-distended Extremity normal capillary refill and no clubbing, cyanosis or edema Extremity Narrative: dressing over LLE General Extremity: no tenderness to palpation of joints or extremities Skin Skin Narrative: Patient has no evidence of rash at this time. General Skin Exam: no breakdown Neuro oriented x3, CN's II-XII intact bilaterally, moves all extremities and no focal motor deficits Sensorium / Orientation: awake, alert, oriented to person, oriented to place and oriented to time Speech: speech normal Motor Exam: general weakness Psych thought process normal and cooperative Mood & Affect: anxious Assessment & Plan Assessment/Plan (1) Closed left hip fracture: QUALIFIERS: Encounter type: initial encounter Qualified Code(s): S72.002A - Fracture of unspecified part of neck of left femur, initial encounter for closed fracture (2) Rhabdomyolysis: QUALIFIERS: Rhabdomyolysis type: traumatic Encounter type: initial encounter Qualified Code(s): T79.6XXA - Traumatic ischemia of muscle, initial encounter PLAN: Plan #Acute comminuted left hip fracture due to mechanical fall * status post left leg open reduction and internal fixation with intramedullary nail fixation. today is POD 1. * fell at home and was on the floor for about 24 hours * on PO tylenol, PO oxycodone and IV morphine prn for pain * PT/OT on board * general surgery on board * fall precautions * * #Rhabdomyolysis due to mechanical fall * resolved * #Altered mental status * Resolved. Patient now alert and oriented x 3. There was concern for UTI but I reviewed her urinalysis and she has chronic leukocytes esterase in her urine as with previous urine cultures over the years. * There is no bacteria in her urine. Confusion is also resolved. Will therefore hold off on initiating antibiotics for now. #Hyperglycemia in the setting of type 2 diabetes mellitus with neuropathy * On U-500 humulin 75 units twice daily. * Ion ISS. Accuchecks ACHS * #Hyperlipidemia: On statin #Benign essential hypertension: IV hydralazine as needed. On hydrochlorothiazide and losartan. Also on verapamil and metoprolol. #History of gastroparesis with G-tube insertion: Stable #Depression: On Lexapro DVT prophylaxis: On Xarelto 10 mg daily as per orthopedics. Disposition: Awaiting placement. Charges/Coding Visit Charges Inpatient E&M: 12749 Subs Hosp L2
--- NOTE | 2023-10-13 10:32 | CASEMGMT ---
Discharge Planning A list of?SNF providers including quality and resource use data and consistent with the patient's preferred geographic region, medical needs, and insurance network were provided via text message to the patients daughter, Mica, from the [employer] Guide link. Carmen Garner, Discharge Planning Asst.
--- NOTE | 2023-10-13 10:52 | CASEMGMT ---
Social Work Phone call placed to pt's dgt Mica to discuss discharge plan. Mica is in agreement with her sister [place] that pt will need short term SNF prior to coming to Mica's home. Mica states she was not able to come in and discuss with pt last evening and will not be in until this evening. STEVEN explained that SNF choice is needed prior to this and offered to send a SNF list electronically. Mica appreciative of this and states pt has been to [facility] previously and had worked at [employer] and may want one of these facilities. STEVEN updated Mcia that a SNF list would be texted to her but SW will speak with pt for choices and Mica is agreeable. STEVEN met with pt and introduced self and role of SW. SW discussed discharge plan with pt and she is agreeable that SNF is needed. A list of SNF providers including quality and resource use data and consistent with the patient?s preferred geographic region, medical needs, and insurance network were provided from the [employer] Guide. Pt preferred provider is [facility]. Pt states she does not want to go to [employer]. [place] medical records assistant updated and referral to be sent to [facility]. Plan: [facility], pending acceptance and precert S KAROLINA Orr
--- NOTE | 2023-10-13 11:10 | CASEMGMT ---
Addendum entered by Carmen Garner 10/13/23 12:44: [facility] has accepted patient and will submit precert. Carmen Garner, Discharge Planning Asst Original Note: Discharge Planning Referral sent via [employer] to [facility]. Carmen Garner, Discharge Planning Asst.
[2023-10-13 12:18] LABS: Bedside Glucose 239 mg/dL (74-106)
--- NOTE | 2023-10-13 14:35 | CASEMGMT ---
Discharge Planning [facility] has obtain auth. updated. Carmen Garner, Discharge Planning Asst,
--- NOTE | 2023-10-13 15:34 | TREXTCAR_ITS ---
Diet Diet Order/Speech Therapy: 10/12/23 07:09 Diet: Cardiac: Calorie-Controlled Dietary Modifications:: Consistent Carbohydrate Is pt able to select menu?: No How many daily calories?: 1800 calorie Routine Orders/Code Status Enema Type: Fleetz Enema Frequency: Daily PRN Suppository Type: Dulcolax 10mg Suppository Frequency: Daily PRN O2 Frequency: PRN Keep PO Greater than or Equal to (%): 90 Wound(s) left hip: Wound Type: Surgical Incision Therapies Weight Bearing: Weight bearing as tolerated Physical Therapy: Eval and Treat Occupational Therapy: Eval and Treat Problem/Diagnosis (1) Closed left hip fracture: Status: Acute Code(s): S72.002A - Fracture of unspecified part of neck of left femur, initial encounter for closed fracture (2) Rhabdomyolysis: Status: Acute Code(s): M62.82 - Rhabdomyolysis Plan #Acute comminuted left hip fracture due to mechanical fall * status post left leg open reduction and internal fixation with intramedullary nail fixation. today is POD 1. * fell at home and was on the floor for about 24 hours * on PO tylenol, PO oxycodone and IV morphine prn for pain * PT/OT on board * general surgery on board * fall precautions * * #Rhabdomyolysis due to mechanical fall * resolved * #Altered mental status * Resolved. Patient now alert and oriented x 3. There was concern for UTI but I reviewed her urinalysis and she has chronic leukocytes esterase in her urine as with previous urine cultures over the years. * There is no bacteria in her urine. Confusion is also resolved. Will therefore hold off on initiating antibiotics for now. #Hyperglycemia in the setting of type 2 diabetes mellitus with neuropathy * On U-500 humulin 75 units twice daily. * Ion ISS. Accuchecks ACHS * #Hyperlipidemia: On statin #Benign essential hypertension: IV hydralazine as needed. On hydrochlorothiazide and losartan. Also on verapamil and metoprolol. #History of gastroparesis with G-tube insertion: Stable #Depression: On Lexapro DVT prophylaxis: On Xarelto 10 mg daily as per orthopedics. Disposition: Awaiting placement. Allergies/Procedures Done in Hospital Allergies JESENIA Inhibitors Allergy (Intermediate, Verified 10/10/23 23:47) Cough adhesive tape Allergy (Intermediate, Verified 10/10/23 23:47) blisters dulaglutide [From Trulicity] Allergy (Intermediate, Verified 10/10/23 23:47) Gastroparesis chondroitin sulfate A [From DuoVisc Visco Elastic] Allergy (Verified 10/10/23 23:47) Rash ELASTIC hyaluronic acid [From DuoVisc Visco Elastic] Allergy (Verified 10/10/23 23:47) Rash ELASTIC NSAIDS (Non-Steroidal Anti-Inflamma Allergy (Verified 10/10/23 23:47) Other Procedures: None Type of Care/Length of Stay Estimated LOS: Convalescent Care Less Than 30 days Type of Care Needed: Skilled Rehab Potential: Good Prognosis: Good Additional Orders/Day of Discharge Day of Discharge: 10/13/23 Discharge Plan Admission Admit Date/Time: 10/11/23 03:04 Primary Reason for Your Visit: left hip fracture due to mechanical fall Attending Provider: Aaliyah Tubbs Primary Care Provider: Brayan Arita Consulting Providers: Anthony Singleton; Scott Sutton Instructions Patient Instructions: Hip Fx Surg Dc Discharge Orders/Prescriptions Prescriptions: New oxycodone 5 mg Tablet 5 mg PO Q6H PRN PRN (Reason: Pain Score 6-10) 3 Days Qty: 12 0RF Xarelto 10 mg Tablet 10 mg PO DAILY@0600 Qty: 30 0RF Continued hydrochlorothiazide 12.5 mg capsule 12.5 mg PO DAILY gabapentin 300 mg capsule 300 mg PO QHS metoprolol succinate 100 mg tablet extended release 24 hr 100 mg PO DAILY oxybutynin chloride 10 mg tablet extended release 24hr 20 mg PO DAILY aspirin [Adult Low Dose Aspirin] 81 mg tablet,delayed release (DR/EC) 81 mg PO DAILY loratadine 10 mg tablet 10 mg PO DAILY PRN (Reason: ALLERGIES ) (DME) pen needle, diabetic [BD Ultra-Fine Tish Pen Needle] 32 gauge x /32 needle See Rx Instructions .ROUTE .MEDSUPPLY Qty: 100 5RF Rx Instructions: tid metformin 500 mg tablet extended release 24 hr 500 mg PO BREAKFAST Patient Comments: COUPLE OF WEEKS SINCE LAST TAKEN. PT STATES THEY RAN OUT AND THAT THEY DO NOT LIKE TAKING IT BECAUSE OF ALL THE BAD THINGS THEY HAVE HEARD ABOUT IT fluticasone propionate 1 SPRAY spray,suspension 1 spray intranasal DAILY PRN (Reason: NASAL CONGESTION ) methotrexate sodium 2.5 MG tablet 20 mg PO TEJADA Hold Instructions: Resume on 06/29/23. Hold until finished with augmentin folic acid 1 mg tablet 2 mg PO DAILY albuterol sulfate [ProAir HFA] 90 mcg/actuation Hfa Aerosol Inhaler 2 puff INHALATION Q4H PRN (Reason: SHORTNESS OF BREATH ) losartan 100 mg tablet 100 mg PO DAILY escitalopram oxalate [Lexapro] 10 mg tablet 10 mg PO DAILY PRN (Reason: DEPRESSION ) Trelegy Ellipta 100-62.5-25 mcg blister with device 1 inh INHALATION DAILY Patient Comments: PT STATES THEY WERE TOLD BY A DOCTOR TO STOP USING THIS TEMPORARILY BECAUSE THEY BELIEVE THE PT MIGHT BE ALLERGIC TO THIS INHALER. esomeprazole magnesium [Nexium] 40 mg capsule,delayed release(DR/EC) 40 mg PO DAILY atorvastatin 20 mg tablet 20 mg PO DAILY Humulin R U-500 (Conc) Kwikpen 500 unit/mL (3 mL) insulin pen 75 unit subcut TIDCM Rx Instructions: 70 BREAKFAST 70 LUNCH 40 DINNER verapamil 120 mg tablet extended release 120 mg PO QHS metaxalone 800 mg tablet 800 mg PO TID PRN (Reason: MUSCLE CRAMPS) fexofenadine [Nury Allergy] 180 mg tablet 180 mg PO BID Referrals / Follow Up: Brayan Arita MD [Primary Care Provider] - Within 2 Weeks Disposition Disposition (needs filled in before D/C Order can be placed): Detention Facility (1) Closed left hip fracture Qualifiers: Encounter type: initial encounter Qualified Code(s): S72.002A - Fracture of unspecified part of neck of left femur, initial encounter for closed fracture (2) Rhabdomyolysis Qualifiers: Rhabdomyolysis type: traumatic Encounter type: initial encounter Qualified Code(s): T79.6XXA - Traumatic ischemia of muscle, initial encounter
--- NOTE | 2023-10-13 15:35 | DS.PCM_ITS ---
Providers Date of Admission: 10/11/23 Date of Discharge: 10/13/23 Primary Care Physician: Dr. Brayan Arita MD Consultations 10/11/23 04:24 Consult: Orthopedics Routine Consulting Provider: Scott Sutton Reason for Consult: Left hip fracture after fall EMERGENT Consult: No MD Notified: Yes Date Notified: 10/11/23 Time Notified: 03:09 Method of Notification: Text Reason For Visit: LEFT HIP FRACTURE AFTER FALL WITH MYOTOXICITY D/T Diagnosis Discharge Diagnosis (1) Closed left hip fracture: Status: Acute Code(s): S72.002A - Fracture of unspecified part of neck of left femur, initial encounter for closed fracture Qualifiers: Encounter type: initial encounter Qualified Code(s): S72.002A - Fracture of unspecified part of neck of left femur, initial encounter for closed fracture (2) Rhabdomyolysis: Status: Acute Code(s): M62.82 - Rhabdomyolysis Qualifiers: Rhabdomyolysis type: traumatic Encounter type: initial encounter Qualified Code(s): T79.6XXA - Traumatic ischemia of muscle, initial encounter Plan #Acute comminuted left hip fracture due to mechanical fall * status post left leg open reduction and internal fixation with intramedullary nail fixation. today is POD 1. * fell at home and was on the floor for about 24 hours * on PO tylenol, PO oxycodone and IV morphine prn for pain * PT/OT on board * general surgery on board * fall precautions * * #Rhabdomyolysis due to mechanical fall * resolved * #Altered mental status * Resolved. Patient now alert and oriented x 3. There was concern for UTI but I reviewed her urinalysis and she has chronic leukocytes esterase in her urine as with previous urine cultures over the years. * There is no bacteria in her urine. Confusion is also resolved. Will therefo re hold off on initiating antibiotics for now. #Hyperglycemia in the setting of type 2 diabetes mellitus with neuropathy * On U-500 humulin 75 units twice daily. * Ion ISS. Accuchecks ACHS * #Hyperlipidemia: On statin #Benign essential hypertension: IV hydralazine as needed. On hydrochlorothiazide and losartan. Also on verapamil and metoprolol. #History of gastroparesis with G-tube insertion: Stable #Depression: On Lexapro DVT prophylaxis: On Xarelto 10 mg daily as per orthopedics. Disposition: Awaiting placement. Medications at Discharge Home Medications fluticasone propionate 50 mcg/actuation nasal spray,suspension 1 spray intranasal DAILY PRN NASAL CONGESTION 01/30/14 methotrexate sodium 2.5 mg tablet 20 mg PO TEJADA BREAST CANCER 04/16/17 albuterol sulfate 90 mcg/actuation aerosol inhaler (ProAir HFA) 2 puff inhalat ion Q4H PRN SHORTNESS OF BREATH 06/05/21 escitalopram oxalate 10 mg tablet (Lexapro) 10 mg PO DAILY PRN DEPRESSION 06/05/21 fluticasone fur. 100 mcg-umeclid 62.5 mcg-vilant 25 mcg inhalat.powder (Trelegy Ellipta) 1 inh inhalation DAILY SHORTNESS OF BREATH 06/05/21 folic acid 1 mg tablet 2 mg PO DAILY SUPPLEMENT 06/05/21 hydrochlorothiazide 12.5 mg capsule 12.5 mg PO DAILY BLOOD PRESSURE 06/05/21 losartan 100 mg tablet 100 mg PO DAILY BLOOD PRESSURE 06/05/21 aspirin 81 mg tablet,delayed release (Adult Low Dose Aspirin) 81 mg PO DAILY HEART HEALTH 02/05/22 gabapentin 300 mg capsule 300 mg PO QHS NEUROPATHY 02/05/22 oxybutynin chloride 10 mg tablet,extended release 24 hr 20 mg PO DAILY OVERACTIVE BLADDER 02/05/22 metoprolol succinate 100 mg tablet,extended release 24 hr 100 mg PO DAILY BLOOD PRESSURE 02/24/22 esomeprazole magnesium 40 mg capsule,delayed release (Nexium) 40 mg PO DAILY ACID REFLUX 11/26/22 loratadine 10 mg tablet 10 mg PO DAILY PRN ALLERGIES 11/26/22 metformin 500 mg tablet,extended release 24 hr 500 mg PO BREAKFAST DIABETES 11/26/22 pen needle, diabetic 32 gauge x 5/32 (BD Ultra-Fine Tish Pen Needle) #100 ea 11/26/22 atorvastatin 20 mg tablet 20 mg PO DAILY CHOLESTEROL 06/21/23 fexofenadine 180 mg tablet (Nury Allergy) 180 mg PO BID ALLERGIES 06/21/23 insulin regular hum U-500 conc 500 unit/mL(3 mL) subcut pen (Humulin R U-500 (Conc) Insulin Kwikpen) 75 unit subcut TIDCM 06/21/23 metaxalone 800 mg tablet 800 mg PO TID PRN MUSCLE CRAMPS 06/21/23 verapamil 120 mg tablet,extended release 120 mg PO QHS BLOOD PRESSURE 06/21/23 oxycodone 5 mg tablet 5 mg PO Q6H PRN PRN Pain Score 6-10 3 days #12 tabs 10/13/23 rivaroxaban 10 mg tablet (Xarelto) 10 mg PO DAILY@0600 #30 tabs 10/13/23 Hospital Course Operations None and - (left hip ORIF with intramedullary nail fixation) Procedures None Summary of Care Provided Minutes Spent on Discharge: 55 Hospital Course: Patient is a 73-year-old female with a past medical history as outlined was admitted through the ED on 10/11/2023 with a complaint of left hip pain after mechanical fall. She fell on her floor and landed on her left hip several days prior to admission. She could not get up for about 24 hours. He subsequently became much more weak over the subsequent days. Patient unable to . She was on aspirin but was not taking any other anticoagulant. Imaging done showed acute comminuted left femoral intertrochanteric fracture. CT of the head was negative for any acute intracranial pathology. She had mild rhabdomyolysis with CPK more than thousand. She was admitted and managed for left hip fracture due to mechanical fall. Orthopedic surgery was consulted and she had left open reduction and internal fixation with intra medullary nail placement. Postop course was complicated by some encephalopathy but this subsequently resolved. It was thought that patient had UTI she had a urinalysis done which did not show any evidence of UTI and showed chronic elevation of leukocyte esterase. She remained stable and was placed on Xarelto for DVT prophylaxis. [facility]. She was discharged with a prescription for p.o. oxycodone 5 mg every 6 hours as needed for total of 12 tablets with 0 refills. OARRS score was checked and no red flags were seen. She was also given a prescription for Xarelto 10 mg daily for 30 days with 0 refills for DVT prophylaxis as. Orthopedic recommendation. Patient seen and examined prior to discharge. She felt well and had no comp laints. She had an uneventful night. Review of systems otherwise negative. Labs and vitals reviewed. Home medication reviewed and reconciled. Physical Exam Const alert, oriented x3, no apparent distress, average body habitus and healthy appearing Constitutional Narrative: frail, in moderate distress. General Appearance: cooperative, comfortable and well kempt Orientation / Consciousness: awake HEENT normocephalic, head/scalp atraumatic, hearing grossly normal bilaterally and moist oral mucous membranes Mouth: oral and palatal mucosa normal Eyes PERRL, EOMs intact bilaterally and conjunctivae normal Neck no lymphadenopathy, supple and no JVD Lymph Lymphatic: no lymphadenopathy noted and no lymphedema noted Resp normal respiratory effort, no retractions, no use of accessory muscles and clear to auscultation bilaterally Resp Narrative: diminished breath sounds bibasally, no wheezes or crackles. On 2L of oxygen by nasal canula Cardio regular rate, regular rhythm, S1 normal heart sound, S2 normal heart sound and no murmurs GI normal to inspection, nondistended, normoactive bowel sounds, soft to palpation, non-tender and non-distended Extremity normal capillary refill and no clubbing, cyanosis or edema Extremity Narrative: dressing over left hip General Extremity: no tenderness to palpation of joints or extremities Skin General Skin Exam: no breakdown Neuro oriented x3, CN's II-XII intact bilaterally, moves all extremities and no focal motor deficits Sensorium / Orientation: awake, alert, oriented to person, oriented to place and oriented to time Speech: speech normal Motor Exam: general weakness Psych thought process normal and cooperative Weight / BMI Weight Weight: 206 lb 12.697 oz Body Mass Index (BMI) 38.0 ABG / Lab / Microbiology Data 10/13/23 06:42 10/13/23 06:42 Laboratory: Laboratory Results - last 24 hr 10/12/23 16:16: POC Glucose 109 H 10/12/23 21:49: POC Glucose 98 10/13/23 06:42: WBC 8.8, RBC 2.66 L, Hgb 8.3 L, Hct 26.5 L, MCV 99.6 H, MCH 31.2, MCHC 31.3 L, RDW Std Deviation 47.8 H, RDW Coeff of Tom 13.2, Plt Count 204, MPV 10.0, Sodium 140, Potassium 3.5, Chloride 111 H, Carbon Dioxide 27.0, Anion Gap 2 L, BUN 19 H, Creatinine 0.84, Estim Creat Clear Calc 64.20, Est GFR (MDRD) Af Amer 86, Est GFR (MDRD) Non-Af 71, BUN/Creatinine Ratio 22.7 H, Glucose 212 H, Calcium 7.6 L 02/29/24 08:05: POC Glucose 221 H 10/13/23 11:55: POC Glucose 239 H Microbiology: Microbiology 10/12/23 02:18 Urine Catheter - Catheter Urine Culture - Preliminary Mixed Gram Positive Organisms 10/11/23 00:49 Mucosa - Nose SARS-CoV-2, Influenza & RSV (PCR) - Final D/C Instructions Discharge Diet: Low fat / Low cholesterol Discharge Activity: Return to Normal Activity Weight Bearing Status: Weight bearing as tolerated Call your doctor if you observe: Fever of 101 or Higher, Shortness of breath, Dizziness, Swelling in the ankles and Chest pain Meaningful Use Info Meaningful Use Diagnoses (Choose all that apply): None applicable Discharge Plan Admission Admit Date/Time: 10/11/23 03:04 Primary Reason for Your Visit: left hip fracture due to mechanical fall Attending Provider: Aaliyah Tubbs Primary Care Provider: Brayan Arita Consulting Providers: Anthony Singleton; Scott Sutton Instructions Patient Instructions: Hip Fx Surg Dc Discharge Orders/Prescriptions Prescriptions: New oxycodone 5 mg Tablet 5 mg PO Q6H PRN PRN (Reason: Pain Score 6-10) 3 Days Qty: 12 0RF Xarelto 10 mg Tablet 10 mg PO DAILY@0600 Qty: 30 0RF Continued hydrochlorothiazide 12.5 mg capsule 12.5 mg PO DAILY gabapentin 300 mg capsule 300 mg PO QHS metoprolol succinate 100 mg tablet extended release 24 hr 100 mg PO DAILY oxybutynin chloride 10 mg tablet extended release 24hr 20 mg PO DAILY aspirin [Adult Low Dose Aspirin] 81 mg tablet,delayed release (DR/EC) 81 mg PO DAILY loratadine 10 mg tablet 10 mg PO DAILY PRN (Reason: ALLERGIES ) (DME) pen needle, diabetic [BD Ultra-Fine Tish Pen Needle] 32 gauge x 5/32 needle See Rx Instructions .ROUTE .MEDSUPPLY Qty: 100 5RF Rx Instructions: tid metformin 500 mg tablet extended release 24 hr 500 mg PO BREAKFAST Patient Comments: COUPLE OF WEEKS SINCE LAST TAKEN. PT STATES THEY RAN OUT AND THAT THEY DO NOT LIKE TAKING IT BECAUSE OF ALL THE BAD THINGS THEY HAVE HEARD ABOUT IT fluticasone propionate 1 SPRAY spray,suspension 1 spray intranasal DAILY PRN (Reason: NASAL CONGESTION ) methotrexate sodium 2.5 MG tablet 20 mg PO TEJADA Hold Instructions: Resume on 06/29/23. Hold until finished with augmentin folic acid 1 mg tablet 2 mg PO DAILY albuterol sulfate [ProAir HFA] 90 mcg/actuation Hfa Aerosol Inhaler 2 puff INHALATION Q4H PRN (Reason: SHORTNESS OF BREATH ) losartan 100 mg tablet 100 mg PO DAILY escitalopram oxalate [Lexapro] 10 mg tablet 10 mg PO DAILY PRN (Reason: DEPRESSION ) Trelegy Ellipta 100-62.5-25 mcg blister with device 1 inh INHALATION DAILY Patient Comments: PT STATES THEY WERE TOLD BY A DOCTOR TO STOP USING THIS TEMPORARILY BECAUSE THEY BELIEVE THE PT MIGHT BE ALLERGIC TO THIS INHALER. esomeprazole magnesium [Nexium] 40 mg capsule,delayed release(DR/EC) 40 mg PO DAILY atorvastatin 20 mg tablet 20 mg PO DAILY Humulin R U-500 (Conc) Kwikpen 500 unit/mL (3 mL) insulin pen 75 unit subcut TIDCM Rx Instructions: 70 BREAKFAST 70 LUNCH 40 DINNER verapamil 120 mg tablet extended release 120 mg PO QHS metaxalone 800 mg tablet 800 mg PO TID PRN (Reason: MUSCLE CRAMPS) fexofenadine [Nury Allergy] 180 mg tablet 180 mg PO BID Referrals / Follow Up: Brayan Arita MD [Primary Care Provider] - Within 2 Weeks Scott Sutton MD [Med Staff - Active Staff] - Within 2 Weeks Disposition Disposition (needs filled in before D/C Order can be placed): Long Term Facility Charges/Coding Visit Charges Inpatient E&M: 43871 Disch Hosp >30min
--- NOTE | 2023-10-13 16:19 | CASEMGMT ---
Social Work [facility] can accept and precert has been obtained. Physician notified and pt is ready for discharge today. SW met with pt and updated on discharge plan and pt is agreeable. 7000 exemption form completed in [facility]. [place] financial services assistant updated and to complete discharge. Message left for pt's dgt Mica explaining discharge plan. Disposition: [facility], skilled level of care under convalescent stay KAROLINA Conley
--- NOTE | 2023-10-13 16:28 | CASEMGMT ---
Dishcarge Planning Discharge orders, signed med list, and tranport time sent to [facility] via [facility]. Physicians will transport patient by wheelchair (cot may be sent) at 5p. Nursing and SW updated. VM left for her daughter. Carmen Garner, Discharge Planning Asst.
[2023-10-13 16:45] LABS: Bedside Glucose 100 mg/dL (74-106)
== END 2023-10-13 17:16 | disposition skilled nursing facility (03) | DRG 480 ==
LOC: ED 10-11 03:42 → MS3 10-11 03:42
PROVIDERS: Anesthesiology; Orthopaedic Surgery; Admitting Provider Internal Medicine; Emergency Provider Emergency Medicine; PCP Family Medicine; Visit Provider Student in an Organized Health Care Education/Training Program
PROC: 0QS706Z Reposition Left Upper Femur with Intramedullary Internal Fixation Device, Open Approach (ICD-10-PCS; CPT 27245; principal; 2023-10-11 12:30)
DX: M80.052A Age-related osteoporosis with current pathological fracture, left femur, initial encounter for fracture (principal); G92.8 Other toxic encephalopathy; D62 Acute posthemorrhagic anemia; Z68.37 Body mass index [BMI] 37.0-37.9, adult; E11.22 Type 2 diabetes mellitus with diabetic chronic kidney disease; E11.40 Type 2 diabetes mellitus with diabetic neuropathy, unspecified; J44.9 Chronic obstructive pulmonary disease, unspecified; T79.6XXA Traumatic ischemia of muscle, initial encounter; E11.65 Type 2 diabetes mellitus with hyperglycemia; Z79.4 Long term (current) use of insulin; I12.9 Hypertensive chronic kidney disease with stage 1 through stage 4 chronic kidney disease, or unspecified chronic kidney disease; F32.A Depression, unspecified; N18.2 Chronic kidney disease, stage 2 (mild); E78.5 Hyperlipidemia, unspecified; J30.9 Allergic rhinitis, unspecified; M19.90 Unspecified osteoarthritis, unspecified site; K58.9 Irritable bowel syndrome, unspecified; K21.9 Gastro-esophageal reflux disease without esophagitis; G47.33 Obstructive sleep apnea (adult) (pediatric); W07.XXXA Fall from chair, initial encounter; T40.2X5A Adverse effect of other opioids, initial encounter; E66.9 Obesity, unspecified; Y92.009 Unspecified place in unspecified non-institutional (private) residence as the place of occurrence of the external cause; Z79.82 Long term (current) use of aspirin; Z79.51 Long term (current) use of inhaled steroids; Z79.84 Long term (current) use of oral hypoglycemic drugs; Z79.899 Other long term (current) drug therapy; Z87.891 Personal history of nicotine dependence
CPT/HCPCS: 36415; 70450; 71045; 73502; 76000; 80048; 80053; 80076; 81001; 82550; 82962; 83036; 84484; 85025; 85027; 85610; 85730; 86850; 86900; 86901; 87077; 87086; 87088; 87186; 87631; 93005; 94640; 94668; 97162; 97166; 97530; 97535; 99252; 99283; C1713; J7030; J7120; A4216; G0463; J2405

== ENCOUNTER 2023-11-17 10:43 | Inpatient (IN) | payer MEDICARE, SELFPAY ==
[2023-11-17] VITALS (26 sets, daily range): BP systolic 128–174; BP diastolic 48–136; PULSE 82–128; RESP 16–91; TEMP 36.3–37.7; O2SAT 20–96; BMI 38.0; BMI 37.5
--- NOTE | 2023-11-17 11:16 | EKG12_ITS ---
Test Reason : SOB Blood Pressure : / mmHG Vent. Rate : 118 BPM Atrial Rate : 118 BPM P-R Int : 168 ms QRS Dur : 082 ms QT Int : 312 ms P-R-T Axes : 038 003 014 degrees QTc Int : 437 ms Sinus tachycardia Inferior infarct , age undetermined Cannot rule out Anterior infarct , age undetermined Abnormal ECG Confirmed by MALISSA ORTIZ, ZEHRA ([id number]), graphics editor JUAN HORTON ([id number]) on 11/18/2023 9:14:10 AM Referred By: Confirmed By:ZEHRA LEONARDO MD
--- NOTE | 2023-11-17 11:19 | EX.ED.DYSGE1 ---
HPI History of Present Illness Chief Complaint: Shortness of Breath Informant: patient Onset/Context/Timing Onset: Days Narrative Narrative: Patient presents secondary to shortness of breath with cough and chills. Patient is currently receiving home health after a hip fracture and surgery in October. Home health nurse today noted that her cough was more moist than normal, her heart rate was elevated in the 120s, and her pulse ox was 85% on room air. Patient does have a history of COPD and asthma. She states that she is currently staying with her daughter and only has one of her 2 inhalers with her. She is currently on Macrobid for a UTI. She does have increased lower extremity edema. She is currently on Xarelto. [facility] Medical History (Updated 11/17/23 @ 14:[address] [place] Jessica MD) Allergic rhinitis Anxiety Arthritis Asthma Back problem Breast cancer Breast lump Calcium deficiency Cancer Cardiology follow-up encounter Carpal tunnel syndrome Cataract Chronic bronchitis Chronic cough Closed left hip fracture COPD (chronic obstructive pulmonary disease) Diabetes mellitus, type II Dietary restriction Diverticulosis Easy bruising Essential hypertension Former smoker Gall stone Gastrointestinal problem GERD (gastroesophageal reflux disease) History of cervical cancer History of Clostridium difficile infection History of edema History of gastrostomy tube placement History of Holter monitoring History of stress test History of vaginal delivery Hives IBS (irritable bowel syndrome) Inflammatory polyarthritis Injury of head and neck Internal hemorrhoids Leg cramps Loss of consciousness MSSA (methicillin susceptible Staphylococcus aureus) pneumonia Neuropathy OAB (overactive bladder) Obesity Osteoarthritis Osteoporosis Pancreatitis Recurrent infections Restless legs Rhabdomyolysis (04/2017) Seasonal allergies Shortness of breath on exertion Sleep apnea Urinary incontinence UTI (urinary tract infection) Vision problems Wears dentures Wears glasses Home Medications fluticasone propionate 50 mcg/actuation nasal spray,suspension 1 spray intranasal DAILY PRN NASAL CONGESTION 01/30/14 [History Last Taken 06/20/23] methotrexate sodium 2.5 mg tablet 20 mg PO TEJADA BREAST CANCER 04/16/17 [History Last Taken 06/19/23] albuterol sulfate 90 mcg/actuation aerosol inhaler (ProAir HFA) 2 puff inhalation Q4H PRN SHORTNESS OF BREATH 06/05/21 [History Last Taken Unknown] escitalopram oxalate 10 mg tablet (Lexapro) 10 mg PO DAILY PRN DEPRESSION 06/05/21 [History Last Taken 1 Week Ago ~05/29/21] fluticasone fur. 100 mcg-umeclid 62.5 mcg-vilant 25 mcg inhalat.powder (Trelegy Ellipta) 1 inh inhalation DAILY SHORTNESS OF BREATH 06/05/21 [History Last Taken 1 Week Ago ~05/29/21] folic acid 1 mg tablet 2 mg PO DAILY SUPPLEMENT 06/05/21 [History Last Taken 06/20/23] hydrochlorothiazide 12.5 mg capsule 12.5 mg PO DAILY BLOOD PRESSURE 06/05/21 [History Last Taken 06/20/23] losartan 100 mg tablet 100 mg PO DAILY BLOOD PRESSURE 06/05/21 [History Last Taken 06/20/23] aspirin 81 mg tablet,delayed release (Adult Low Dose Aspirin) 81 mg PO DAILY HEART HEALTH 02/05/22 [History Last Taken 06/20/23] gabapentin 300 mg capsule 300 mg PO QHS NEUROPATHY 02/05/22 [History Last Taken 06/20/23] oxybutynin chloride 10 mg tablet,extended release 24 hr 20 mg PO DAILY OVERACTIVE BLADDER 02/05/22 [History Last Taken 06/20/23] metoprolol succinate 100 mg tablet,extended release 24 hr 100 mg PO DAILY BLOOD PRESSURE 02/24/22 [History Last Taken 06/20/23] esomeprazole magnesium 40 mg capsule,delayed release (Nexium) 40 mg PO DAILY ACID REFLUX 11/26/22 [History Last Taken 06/20/23] loratadine 10 mg tablet 10 mg PO DAILY PRN ALLERGIES 11/26/22 [History Last Taken Unknown] metformin 500 mg tablet,extended release 24 hr 500 mg PO BREAKFAST DIABETES 11/26/22 [History Last Taken Unknown] pen needle, diabetic 32 gauge x 5/32 (BD Ultra-Fine Tish Pen Needle) #100 ea 11/26/22 [Rx Last Taken Unknown] atorvastatin 20 mg tablet 20 mg PO DAILY CHOLESTEROL 06/21/23 [History Last Taken 06/20/23] fexofenadine 180 mg tablet (Nury Allergy) 180 mg PO BID ALLERGIES 06/21/23 [History Last Taken 06/20/23] metaxalone 800 mg tablet 800 mg PO TID PRN MUSCLE CRAMPS 06/21/23 [History Last Taken Unknown] verapamil 120 mg tablet,extended release 120 mg PO QHS BLOOD PRESSURE 11/07/23 [History Last Taken 06/20/23] oxycodone 5 mg tablet 5 mg PO Q6H PRN PRN Pain Score 6-10 3 days #12 tabs 10/13/23 [Rx Last Taken Unknown] rivaroxaban 10 mg tablet (Xarelto) 10 mg PO DAILY@0600 #30 tabs 10/13/23 [Rx Last Taken Unknown] insulin regular hum U-500 conc 500 unit/mL(3 mL) subcut pen (Humulin R U-500 (Conc) Insulin Kwikpen) See Rx Instructions subcut TIDCM #10.8 mL 11/10/23 [Rx Last Taken Unknown] blood sugar diagnostic (Hello Chairuch Verio test strips) #150 ea 11/15/23 [Rx Last Taken Unknown] nitrofurantoin monohydrate/macrocrystals 100 mg capsule 1 cap PO BID 11/15/23 [History Last Taken Unknown] Allergy/AdvReac Type Severity Reaction Status Date / Time JESENIA Inhibitors Allergy Intermediate Cough Verified 11/17/23 10:45 adhesive tape Allergy Intermediate blisters Verified 11/17/23 10:45 dulaglutide [From Trulicity] Allergy Intermediate Gastropares Verified 11/17/23 10:45 is chondroitin sulfate A Allergy Rash Verified 11/17/23 10:45 [From DuoVisc Visco Elastic] hyaluronic acid Allergy Rash Verified 11/17/23 10:45 [From DuoVisc Visco Elastic] NSAIDS (Non-Steroidal Allergy Other Verified 11/17/23 10:45 Anti-Inflamma Family History Other Alcohol abuse Anxiety Arthritis Asthma defect COPD (chronic obstructive pulmonary disease) Cancer Diabetes High cholesterol Hypertension Seizures Surgical History History of appendectomy History of colonoscopy History of hysterectomy History of left mastectomy History of nasal cauterization Social History Smoking Status: Former smoker alcohol intake: current alcohol intake frequency: 0-2 drinks per day substance use type: does not use what type of physical activity do you participate in: none ROS ROS ED Constitutional Constitutional ED: Denies chills or fever(s) Eyes Eyes: Denies discharge from eye(s) ENT ENT ED: Denies discharge from eye(s), rhinorrhea or sore throat Cardiovascular Cardiovascular: Denies chest pain Respiratory/Chest Respiratory/Chest: Reports cough and dyspnea Gastrointestinal Gastrointestinal: Denies abdominal pain, nausea or vomiting Genitourinary Genitourinary ED: Denies dysuria Musculoskeletal Musculoskeletal: Denies back pain or extremity pain Integumentary Denies Abrasions or rash Neurologic Neurologic: Reports weakness; Denies headache(s) Psychiatric Psychiatric: Denies anxiety or depression Allergic/Immunologic Allergic/Immunologic ED: Denies lip swelling or urticaria EXAM Physical Exam Const Vital Signs: 11/17/23 10:45 11/17/23 10:48 11/17/23 10:57 Temperature 99 F 99 F Temperature Source Temporal Temporal Pulse Rate 125 H 122 H Respiratory Rate 16 16 Respiratory Effort Short of Breath Respiratory Pattern Tachypnea Blood Pressure 174/136 H 172/83 H Blood Pressure Mean 148 112 Pulse Ox 92 92 Oxygen Delivery Method Room Air Room Air Room Air Oxygen Flow Rate (L/min) 11/17/23 11:36 11/17/23 11:36 11/17/23 11:48 Temperature 99.7 F H Temperature Source Temporal Pulse Rate 119 H 119 H Respiratory Rate 34 H 23 H Respiratory Effort Respiratory Pattern Tachypnea Blood Pressure 149/62 H Blood Pressure Mean 91 Pulse Ox 90 92 Oxygen Delivery Method Nasal Cannula Nasal Cannula Oxygen Flow Rate (L/min) 2 3 11/17/23 12:00 11/17/23 11:03 11/17/23 11:15 Temperature 99.7 F H Temperature Source Temporal Pulse Rate 118 H 122 H 122 H Respiratory Rate 26 H 29 H 35 H Respiratory Effort Respiratory Pattern Blood Pressure 145/69 H Blood Pressure Mean 94 Pulse Ox 90 92 91 Oxygen Delivery Method Nasal Cannula Oxygen Flow Rate (L/min) 11/17/23 11:30 11/17/23 11:45 11/17/23 12:00 Temperature Temperature Source Pulse Rate 122 H 120 H 118 H Respiratory Rate 22 H 27 H 37 H Respiratory Effort Respiratory Pattern Blood Pressure 153/63 H 149/62 H 145/65 H Blood Pressure Mean 89 85 85 Pulse Ox 91 90 90 Oxygen Delivery Method Oxygen Flow Rate (L/min) 11/17/23 12:15 11/17/23 12:30 11/17/23 12:45 Temperature Temperature Source Pulse Rate 116 H 115 H 117 H Respiratory Rate 33 H 30 H 17 Respiratory Effort Respiratory Pattern Blood Pressure 147/59 H 140/63 H 145/62 H Blood Pressure Mean 84 84 82 Pulse Ox 90 89 92 Oxygen Delivery Method Oxygen Flow Rate (L/min) 11/17/23 13:00 11/17/23 14:00 Temperature 99.6 F H 97.8 F Temperature Source Temporal Temporal Pulse Rate 108 H 104 H Respiratory Rate 21 H 23 H Respiratory Effort Respiratory Pattern Blood Pressure 128/56 H 135/57 H Blood Pressure Mean 80 83 Pulse Ox 92 92 Oxygen Delivery Method Nasal Cannula Nasal Cannula Oxygen Flow Rate (L/min) 3 3 Positive well nourished and well developed General Appearance ED: well developed HEENT Reports moist mucous membranes Eyes EOMs intact bilaterally Chest Wall inspection of chest normal and palpation of chest normal Resp Resp Narrative: Tachypnea with clear breath sounds bilaterally. Cardio Rate: tachycardic GI non-tender Palpation: soft Extremity Extremity Narrative: Mild lower extremity edema bilaterally. No calf tenderness. 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 IV line established. Labwork obtained to evaluate for leukocytosis, anemia, and electrolyte derangement. Chest x-ray obtained to evaluate for acute lung pathology, cardiac size, or mediastinal abnormality. EKG obtained to evaluate for cardiac arrhythmia/ischemia. Swab for COVID, influenza, and RSV will be obtained. Patient given DuoNeb treatment. History & Record Review Discussion w/independent historian: Patient Additional record(s) reviewed:: Prior labs Lab Data Attestation: I reviewed the patient's lab results. Labs: Laboratory Results - last 24 hr 11/17/23 11:20 WBC 17.1 H RBC 3.44 L Hgb 10.5 L Hct 32.6 L MCV 94.8 MCH 30.5 MCHC 32.2 RDW Std Deviation 46.8 H RDW Coeff of Tom 13.7 Plt Count 269 MPV 8.7 Immature Gran % (Auto) 0.600 Neut % (Auto) 85.2 H Lymph % (Auto) 5.6 L Anderson % (Auto) 5.6 Eos % (Auto) 2.5 Baso % (Auto) 0.5 Absolute Neuts (auto) 14.6 H Absolute Lymphs (auto) 0.96 Nucleated RBC % 0 Sodium 138 Potassium 3.8 Chloride 105 Carbon Dioxide 24.0 Anion Gap 9 BUN 16 Creatinine 0.90 Estim Creat Clear Calc 59.01 Est GFR (MDRD) Af Amer 79 Est GFR (MDRD) Non-Af 65 BUN/Creatinine Ratio 17.7 Glucose 162 H Calcium 8.8 Troponin I High Sens 4 B-Natriuretic Peptide 21.1 Radiography Chest X-Ray - ED: 1 View, Read by ED Physician and Chronic Changes Diagnostic Testing: Clinical Impression(s) from Imaging Studies Chest X-Ray 11/17/23 11:26 IMPRESSION: No acute abnormality is seen. Electronically Signed: Jean Rodriguez MD at 12:06 EDT , Chest CTA 11/17/23 13:30 IMPRESSION: No evidence of pulmonary embolism. Findings suggestive of scarring at the lung bases with superimposed atelectasis. Cholelithiasis. Stable 2 cm left adrenal adenoma. Electronically Signed: Jean Rodriguez MD at 14:08 EDT , EKG Initial EKG: Attestation: I personally reviewed and interpreted this EKG as follows: Interpretation: Sinus Tachycardia (Sinus tach at 118. No obvious ischemia.) Treatment and Re-Evaluation :: CBC was a white count of 17.1 with 85% neutrophils. Hemoglobin is 10.5. Chemistry studies are unremarkable. Troponin is normal at 4. BNP is normal at 21. Portable chest x-ray per my interpretation was chronic changes with no focal infiltrate. Radiology interpretation reviewed and agrees. After breathing treatment patient remained significantly tachycardic with heart rates around 120. She did drop her O2 sat and is currently on 3 L nasal cannula satting 90 to 92%. Due to concern for pulmonary embolism, she was sent for CTA of the chest. CTA revealed some chronic scarring at the bases but no evidence of infiltrate and no PE. Test results discussed with the patient. She will be covered with Levaquin and steroids for COPD exacerbation. She is currently requiring supplemental oxygen and will be discussed with hospitalist for admission. Discharge Plan Triage Chief Complaint: Shortness of Breath ED Provider: [place] Jessica Dx/Rx/DC Orders Clinical Impression: Hypoxia, COPD exacerbation Prescriptions: No Action hydrochlorothiazide 12.5 mg capsule 12.5 mg PO DAILY gabapentin 300 mg capsule 300 mg PO QHS metoprolol succinate 100 mg tablet extended release 24 hr 100 mg PO DAILY oxybutynin chloride 10 mg tablet extended release 24hr 20 mg PO DAILY aspirin [Adult Low Dose Aspirin] 81 mg tablet,delayed release (DR/EC) 81 mg PO DAILY loratadine 10 mg tablet 10 mg PO DAILY PRN (Reason: ALLERGIES ) (DME) pen needle, diabetic [BD Ultra-Fine Tish Pen Needle] 32 gauge x needle See Rx Instructions .ROUTE .MEDSUPPLY Qty: 100 5RF Rx Instructions: tid metformin 500 mg tablet extended release 24 hr 500 mg PO BREAKFAST Patient Comments: COUPLE OF WEEKS SINCE LAST TAKEN. PT STATES THEY RAN OUT AND THAT THEY DO NOT LIKE TAKING IT BECAUSE OF ALL THE BAD THINGS THEY HAVE HEARD ABOUT IT nitrofurantoin monohyd/m-cryst 100 mg capsule 1 cap PO BID (DME) OneTouch Verio test strips Strip See Rx Instructions .Route Qty: 150 12RF Rx Instructions: 4 times per day fluticasone propionate 1 SPRAY spray,suspension 1 spray intranasal DAILY PRN (Reason: NASAL CONGESTION ) methotrexate sodium 2.5 MG tablet 20 mg PO TEJADA Hold Instructions: Resume on 06/29/23. Hold until finished with augmentin folic acid 1 mg tablet 2 mg PO DAILY albuterol sulfate [ProAir HFA] 90 mcg/actuation Hfa Aerosol Inhaler 2 puff INHALATION Q4H PRN (Reason: SHORTNESS OF BREATH ) losartan 100 mg tablet 100 mg PO DAILY escitalopram oxalate [Lexapro] 10 mg tablet 10 mg PO DAILY PRN (Reason: DEPRESSION ) Trelegy Ellipta 100-62.5-25 mcg blister with device 1 inh INHALATION DAILY Patient Comments: PT STATES THEY WERE TOLD BY A DOCTOR TO STOP USING THIS TEMPORARILY BECAUSE THEY BELIEVE THE PT MIGHT BE ALLERGIC TO THIS INHALER. esomeprazole magnesium [Nexium] 40 mg capsule,delayed release(DR/EC) 40 mg PO DAILY atorvastatin 20 mg tablet 20 mg PO DAILY verapamil 120 mg tablet extended release 120 mg PO QHS metaxalone 800 mg tablet 800 mg PO TID PRN (Reason: MUSCLE CRAMPS) fexofenadine [Nury Allergy] 180 mg tablet 180 mg PO BID oxycodone 5 mg Tablet 5 mg PO Q6H PRN PRN (Reason: Pain Score 6-10) 3 Days Qty: 12 0RF Xarelto 10 mg Tablet 10 mg PO DAILY@0600 Qty: 30 0RF Humulin R U-500 (Conc) Kwikpen 500 unit/mL (3 mL) insulin pen See Rx Instructions subcut TIDCM Qty: 10.8 5RF Rx Instructions: breakfast- 70 u, lunch 70 u, dinner 40 u subcutaneously 3 times daily with meals Primary Care Provider: Brayan Arita Referrals: Brayan Arita MD [Primary Care Provider] - Disposition Disposition: Acute Care [facility]
--- NOTE | 2023-11-17 11:26 | RAD_ITS ---
STUDY: X-RAY CHEST REASON FOR EXAM: Female, 73 years old. Sob TECHNIQUE: Single AP portable view of the chest. COMPARISON: Comparison is made with prior study dated October 11, 2023. FINDINGS: EKG electrodes are seen. Stable elevation of the right hemidiaphragm. Limited inspiratory effort. There is no demonstrated pleural abnormality. Normal size heart. Normal mediastinum and tami. Normal visualized pulmonary arteries. There is atherosclerotic tortuosity of the aortic arch and descending thoracic aorta. There are diffuse degenerative changes of the visualized thoracic spine. Normal visualized ribs, clavicles, and shoulders. There is no demonstrated abnormality of the visualized soft tissue structures of the upper abdomen. RAD/Chest 1 View (Portable) IMPRESSION: No acute abnormality is seen. Electronically Signed: Jean Rodriguez MD at 12:06 EDT ,
[2023-11-17 11:31] LABS: Absolute Lymphocyte Count 0.96 X10^3/uL (0.83-4.51); Absolute Neutrophil Count 14.6 X10^3/uL (2.0-7.7); Basophil# 0.08 X10^3/uL; Basophil% 0.5 % (0-1); Eosinophil# 0.42 X10^3/uL; Eosinophils% 2.5 % (0-5); Hematocrit 32.6 % (37-47); Hemoglobin 10.5 g/dL (12.0-15.0); Lymphocyte # 0.96 X10^3/ul (0.83-4.51); Lymphocyte % 5.6 % (19-41); Mean Corp Hgb Conc 32.2 g/dL (32-36); Mean Corpuscular Hgb 30.5 pg (27.0-32.0); Mean Corpuscular Volume 94.8 fL (81-99); Mean Platelet Vol. 8.7 fl (6.2-12.0); Monocyte# 0.95 X10^3/uL; Monocyte% 5.6 % (0-10); NRBC Flagged by Analyzer 0 % (0-5); Neutrophil # 14.55 X10^3/uL (2.7-7.7); Neutrophil % 85.2 % (47-70); Platelet Count 269 K/mm3 (150-450); RBC Distribution Width CV 13.7 % (11.6-14.6); RBC Distribution Width SD 46.8 fl (35.1-43.9); Red Blood Count 3.44 M/mm3 (4.2-5.4); White Blood Count 17.1 K/mm3 (4.4-11.0)
[2023-11-17] MEDS: Ipratropium/Albuterol Sulfate 3 ML AMPUL.NEB INHALATION ×3 (11:36→22:50)
[2023-11-17 12:21] LABS: BNP,B-Type NATRIURETIC PEPTIDE 21.1 pg/mL (0-100)
[2023-11-17 12:24] LABS: Anion Gap 9 (5-15); BUN 16 mg/dL (7-18); BUN/Creat Ratio 17.7 RATIO (10-20); Calcium,Total 8.8 mg/dL (8.5-10.1); Chloride 105 mmol/L (98-107); EST Glomerular Filtration Rate 65 mL/min (>60); Est Glom Filt Rate - Afr Amer 79 mL/min (>60); Estimated Creatinine Clearance 59.01 ml/min; Glucose 162 mg/dL (74-106); Potassium 3.8 mmol/L (3.5-5.1); Sodium Level 138 mmol/L (136-145); Troponin-I HS 4 pg/mL (3.0-54.0)
--- NOTE | 2023-11-17 13:30 | CT_ITS ---
STUDY: CTA CHEST REASON FOR EXAM: Female, 73 years old. Hypoxia, recent surgery RADIATION DOSAGE (If Supplied By Facility): CTDIvol = ( 11.27 ) mGy, DLP = ( 368.00 ) mGycm TECHNIQUE: The examination was performed with the intravenous administration of IV 100mL [id number]-[id number]. Post-processing of the angiographic images was performed, with multiplanar reformation and 3D reconstruction. Individualized dose optimization techniques were used for this CT. COMPARISON: Comparison is made with prior study dated June 21, 2023. Comparison is made with prior chest radiograph done earlier today. FINDINGS: Normal enhancement of the main pulmonary artery and right and left pulmonary arteries. Normal enhancement of the bilateral peripheral pulmonary arteries. There is no demonstrated pulmonary embolism. Normal thoracic aorta and visualized great vessels. There is no demonstrated aortic dissection. Minimal anterior pericardial thickening. There are calcifications of the coronary arteries. There are visualized mediastinal lymph nodes, which are within normal size limits, and with normal morphology. Normal hilar regions. Normal visualized trachea and bronchi. The lungs are well expanded. Stable 1.1 cm nodule in the right lung apex. Increased interstitial markings with subpleural blebs in both lower lobes suggestive of a scarring. There has been improvement as compared to prior study. Normal pleura. Normal chest wall structures. There are degenerative changes of thoracic spine. Multiple gallstones. Stable left adrenal adenoma. This measures [address]/CTA Chest W/WO Contrast IMPRESSION: No evidence of pulmonary embolism. Findings suggestive of scarring at the lung bases with superimposed atelectasis. Cholelithiasis. Stable 2 cm left adrenal adenoma. Electronically Signed: Jean Rodriguez MD at 14:08 EDT ,
[2023-11-17] MEDS: Dextrose 50%-Water 25 GM/50 ML DISP.SYRIN IV (14:34)
--- NOTE | 2023-11-17 14:37 | ED.RN ---
notified of sugar of 42 per [facility] RN. AWARE. GLUCOSE PUSHED
--- NOTE | 2023-11-17 14:39 | PCM.HP.STD ---
HPI - General General Date of Admission: 11/17/23 Date of Service: 11/17/23 Chief Complaint: Shortness of breath progressively worsening for 1 month. HPI Narrative MENDEZ KEITH, is a 73 F with history of COPD on BiPAP at home but not on oxygen came to ED with progressive worsening of shortness of breath with productive cough and URI symptoms for about 1 month. Patient states she had pneumonia about 3 months ago and then completed 1 round of antibiotic by PCP. For last month she is having shortness of breath, wheezing dyspnea on mild exertion progressing to rest, cough with thick sputum production. She also complained that right ear feels blocked or feeling. Complain of chills and shivering but no fever or diaphoresis. She has mild chest congestion but denies chest pressure pain. Denies history of CAD/CHF or A-fib There. Prior to that patient had left hip fracture in September 2023 and was admitted here. In ED, patient was found tachypneic, BP high 124/136, tachycardic pulse ox 90% on 2 L of oxygen. Patient was given DuoNeb and IV Solu-Medrol. Imaging was done and discussed in details with the plan. [facility] Medical History Allergic rhinitis Anxiety Arthritis Asthma Back problem Breast cancer Breast lump Calcium deficiency Cancer Cardiology follow-up encounter Carpal tunnel syndrome Cataract Chronic bronchitis Chronic cough Closed left hip fracture COPD (chronic obstructive pulmonary disease) Diabetes mellitus, type II Dietary restriction Diverticulosis Easy bruising Essential hypertension Former smoker Gall stone Gastrointestinal problem GERD (gastroesophageal reflux disease) History of cervical cancer History of Clostridium difficile infection History of edema History of gastrostomy tube placement History of Holter monitoring History of stress test History of vaginal delivery Hives IBS (irritable bowel syndrome) Inflammatory polyarthritis Injury of head and neck Internal hemorrhoids Leg cramps Loss of consciousness MSSA (methicillin susceptible Staphylococcus aureus) pneumonia Neuropathy OAB (overactive bladder) Obesity Osteoarthritis Osteoporosis Pancreatitis Recurrent infections Restless legs Rhabdomyolysis (04/2017) Seasonal allergies Shortness of breath on exertion Sleep apnea Urinary incontinence UTI (urinary tract infection) Vision problems Wears dentures Wears glasses Home Medications fluticasone propionate 50 mcg/actuation nasal spray,suspension 1 spray intranasal DAILY PRN NASAL CONGESTION 01/30/14 [History Last Taken 06/20/23] methotrexate sodium 2.5 mg tablet 20 mg PO TEJADA BREAST CANCER 04/16/17 [History Last Taken 06/19/23] albuterol sulfate 90 mcg/actuation aerosol inhaler (ProAir HFA) 2 puff inhalation Q4H PRN SHORTNESS OF BREATH 06/05/21 [History Last Taken Unknown] escitalopram oxalate 10 mg tablet (Lexapro) 10 mg PO DAILY PRN DEPRESSION 06/05/21 [History Last Taken 1 Week Ago ~05/29/21] fluticasone fur. 100 mcg-umeclid 62.5 mcg-vilant 25 mcg inhalat.powder (Trelegy Ellipta) 1 inh inhalation DAILY SHORTNESS OF BREATH 06/05/21 [History Last Taken 1 Week Ago ~05/29/21] folic acid 1 mg tablet 2 mg PO DAILY SUPPLEMENT 06/05/21 [History Last Taken 06/20/23] hydrochlorothiazide 12.5 mg capsule 12.5 mg PO DAILY BLOOD PRESSURE 06/05/21 [History Last Taken 06/20/23] losartan 100 mg tablet 100 mg PO DAILY BLOOD PRESSURE 06/05/21 [History Last Taken 06/20/23] aspirin 81 mg tablet,delayed release (Adult Low Dose Aspirin) 81 mg PO DAILY HEART HEALTH 02/05/22 [History Last Taken 06/20/23] gabapentin 300 mg capsule 300 mg PO QHS NEUROPATHY 02/05/22 [History Last Taken 06/20/23] oxybutynin chloride 10 mg tablet,extended release 24 hr 20 mg PO DAILY OVERACTIVE BLADDER 02/05/22 [History Last Taken 06/20/23] metoprolol succinate 100 mg tablet,extended release 24 hr 100 mg PO DAILY BLOOD PRESSURE 02/24/22 [History Last Taken 06/20/23] esomeprazole magnesium 40 mg capsule,delayed release (Nexium) 40 mg PO DAILY ACID REFLUX 11/26/22 [History Last Taken 06/20/23] loratadine 10 mg tablet 10 mg PO DAILY PRN ALLERGIES 11/26/22 [History Last Taken Unknown] metformin 500 mg tablet,extended release 24 hr 500 mg PO BREAKFAST DIABETES 11/26/22 [History Last Taken Unknown] pen needle, diabetic 32 gauge x 5/32 (BD Ultra-Fine Tish Pen Needle) #100 ea 11/26/22 [Rx Last Taken Unknown] atorvastatin 20 mg tablet 20 mg PO DAILY CHOLESTEROL 06/21/23 [History Last Taken 06/20/23] fexofenadine 180 mg tablet (Nury Allergy) 180 mg PO BID ALLERGIES 06/21/23 [History Last Taken 06/20/23] metaxalone 800 mg tablet 800 mg PO TID PRN MUSCLE CRAMPS 06/21/23 [History Last Taken Unknown] verapamil 120 mg tablet,extended release 120 mg PO QHS BLOOD PRESSURE 06/21/23 [History Last Taken 06/20/23] oxycodone 5 mg tablet 5 mg PO Q6H PRN PRN Pain Score 6-10 3 days #12 tabs 10/13/23 [Rx Last Taken Unknown] rivaroxaban 10 mg tablet (Xarelto) 10 mg PO DAILY@0600 #30 tabs 10/13/23 [Rx Last Taken Unknown] insulin regular hum U-500 conc 500 unit/mL(3 mL) subcut pen (Humulin R U-500 (Conc) Insulin Kwikpen) See Rx Instructions subcut TIDCM #10.8 mL 11/10/23 [Rx Last Taken Unknown] blood sugar diagnostic (SanghviTouch Verio test strips) #150 ea 11/15/23 [Rx Last Taken Unknown] nitrofurantoin monohydrate/macrocrystals 100 mg capsule 1 cap PO BID 11/15/23 [History Last Taken Unknown] Allergy/AdvReac Type Severity Reaction Status Date / Time JESENIA Inhibitors Allergy Intermediate Cough Verified 11/17/23 10:45 adhesive tape Allergy Intermediate blisters Verified 11/17/23 10:45 dulaglutide [From Trulicity] Allergy Intermediate Gastropares Verified 11/17/23 10:45 is chondroitin sulfate A Allergy Rash Verified 11/17/23 10:45 [From DuoVisc Visco Elastic] hyaluronic acid Allergy Rash Verified 11/17/23 10:45 [From DuoVisc Visco Elastic] NSAIDS (Non-Steroidal Allergy Other Verified 11/17/23 10:45 Anti-Inflamma Family History Other Alcohol abuse Anxiety Arthritis Asthma defect COPD (chronic obstructive pulmonary disease) Cancer Diabetes High cholesterol Hypertension Seizures Surgical History History of appendectomy History of colonoscopy History of hysterectomy History of left mastectomy History of nasal cauterization Social History Smoking Status: Former smoker alcohol intake: current alcohol intake frequency: 0-2 drinks per day substance use type: does not use what type of physical activity do you participate in: none ROS ROS Narrative Constitutional: Reports fatigue and weakness. No fever. HEENT: Reports systems reviewed and no addt'l complaints, except as documented Respiratory/Chest: As described in HPI. CVS: No chest pressure or pain. Gastrointestinal: Denies coffee ground emesis, hematemesis or vomiting Genitourinary: Denies burning micturition. Was found to have bacteriuria, increased frequency, mild suprapubic pressure and started on antibiotic by PCP. 4 more days of antibiotic left Musculoskeletal: Denies acute joint pain or limited range of motion. No acute injury Neurologic: Denies seizure-like symptoms. skin: No ulcer. No rash Endocrinology: Reports systems reviewed and no addt'l complaints, except as documented Hematologic/Lymphatic: Reports systems reviewed and no addt'l complaints, except as documented Rest 14 ROS are negative except as mentioned in HPI Vital Signs Vital Signs Vital Signs: 11/17/23 10:45 11/17/23 10:48 11/17/23 10:57 Temperature 99 F 99 F Temperature Source Temporal Temporal Pulse Rate 125 H 122 H Respiratory Rate 16 16 Respiratory Effort Short of Breath Respiratory Pattern Tachypnea Blood Pressure 174/136 H 172/83 H Blood Pressure Mean 148 112 Pulse Ox 92 92 Oxygen Delivery Method Room Air Room Air Room Air Oxygen Flow Rate (L/min) 11/17/23 11:36 11/17/23 11:36 11/17/23 11:48 Temperature 99.7 F H Temperature Source Temporal Pulse Rate 119 H 119 H Respiratory Rate 34 H 23 H Respiratory Effort Respiratory Pattern Tachypnea Blood Pressure 149/62 H Blood Pressure Mean 91 Pulse Ox 90 92 Oxygen Delivery Method Nasal Cannula Nasal Cannula Oxygen Flow Rate (L/min) 2 3 11/17/23 12:00 11/17/23 11:03 11/17/23 11:15 Temperature 99.7 F H Temperature Source Temporal Pulse Rate 118 H 122 H 122 H Respiratory Rate 26 H 29 H 35 H Respiratory Effort Respiratory Pattern Blood Pressure 145/69 H Blood Pressure Mean 94 Pulse Ox 90 92 91 Oxygen Delivery Method Nasal Cannula Oxygen Flow Rate (L/min) 11/17/23 11:30 11/17/23 11:45 11/17/23 12:00 Temperature Temperature Source Pulse Rate 122 H 120 H 118 H Respiratory Rate 22 H 27 H 37 H Respiratory Effort Respiratory Pattern Blood Pressure 153/63 H 149/62 H 145/65 H Blood Pressure Mean 89 85 85 Pulse Ox 91 90 90 Oxygen Delivery Method Oxygen Flow Rate (L/min) 11/17/23 12:15 11/17/23 12:30 11/17/23 12:45 Temperature Temperature Source Pulse Rate 116 H 115 H 117 H Respiratory Rate 33 H 30 H 17 Respiratory Effort Respiratory Pattern Blood Pressure 147/59 H 140/63 H 145/62 H Blood Pressure Mean 84 84 82 Pulse Ox 90 89 92 Oxygen Delivery Method Oxygen Flow Rate (L/min) 11/17/23 13:00 11/17/23 14:00 Temperature 99.6 F H 97.8 F Temperature Source Temporal Temporal Pulse Rate 108 H 104 H Respiratory Rate 21 H 23 H Respiratory Effort Respiratory Pattern Blood Pressure 128/56 H 135/57 H Blood Pressure Mean 80 83 Pulse Ox 92 92 Oxygen Delivery Method Nasal Cannula Nasal Cannula Oxygen Flow Rate (L/min) 3 3 Weight Weight: 201 lb 4.8 oz Body Mass Index (BMI) 38.0 Physical Exam Narrative General: Alert, Oriented x3, Cooperative HEENT: Right ear, TM retracted. TM not clearly visualized but no obvious perforation. Left ear mild wax. Atraumatic, PERRLA, EOMI, Normocephalic Oral: Oral mucosa dry. No Gingival or Mucosal Lesions/ Ulcerations Neck: Supple, No JVD, Negative Carotid Bruits Chest wall/Lungs: Air entry diminished in bilateral lung bases. Expiratory phase prolonged, bilateral wheezing. Mild hypoxia and tachypnea. Cardiovascular: Sinus tachycardia, Normal S1, Normal S2, No M/G/R Abdomen: Bowel Sounds Present, Soft, Non Tender, Non-Distended : No dysuria. No renal angle tenderness. No suprapubic tenderness. Extremities: No edema, Capillary Refill Less than 3 Seconds Skin: No rashes, No breakdown Musculoskeletal: No Tenderness to Palpation of Joints or Extremities Neurological: Cranial nerves II-XII grossly intact, DTR 2+/4. No acute focal neurological deficit. Psych/Mental Status: Flat affect Results Lab / Micro Data 11/17/23 11:20 11/17/23 11:20 Labs: Laboratory Results - last 24 hr 11/17/23 11:20: WBC 17.1 H, RBC 3.44 L, Hgb 10.5 L, Hct 32.6 L, MCV 94.8, MCH 30.5, MCHC 32.2, RDW Std Deviation 46.8 H, RDW Coeff of Tom 13.7, Plt Count 269, MPV 8.7, Immature Gran % (Auto) 0.600, Neut % (Auto) 85.2 H, Lymph % (Auto) 5.6 L, Terry % (Auto) 5.6, Eos % (Auto) 2.5, Baso % (Auto) 0.5, Absolute Neuts (auto) 14.6 H, Absolute Lymphs (auto) 0.96, Nucleated RBC % 0, Sodium 138, Potassium 3.8, Chloride 105, Carbon Dioxide 24.0, Anion Gap 9, BUN 16, Creatinine 0.90, Estim Creat Clear Calc 59.01, Est GFR (MDRD) Af Amer 79, Est GFR (MDRD) Non-Af 65, BUN/Creatinine Ratio 17.7, Glucose 162 H, Calcium 8.8, Troponin I High Sens 4, B-Natriuretic Peptide 21.1 Micro: Microbiology 11/17/23 11:25 Mucosa - Nasopharyngeal SARS-CoV-2, Influenza & RSV (PCR) - Final Imaging Radiology Impression Chest X-Ray 11/17/23 11:26 IMPRESSION: No acute abnormality is seen. Electronically Signed: Jean Rodriguez MD at 12:06 EDT , Chest CTA 11/17/23 13:30 IMPRESSION: No evidence of pulmonary embolism. Findings suggestive of scarring at the lung bases with superimposed atelectasis. Cholelithiasis. Stable 2 cm left adrenal adenoma. Electronically Signed: Jean Rodriguze MD at 14:08 EDT , Assessment & Plan Assessment/Plan (1) COPD with acute exacerbation: (2) Hypoxia: PLAN: Plan This 72-year-old female being admitted for progressive worsening shortness of breath cough with thick productive sputum and URI symptoms history of COPD exacerbation. 1. COPD exacerbation with mild hypoxia: Patient is being admitted on MedSurg floor. ABG was done which shows 7.4 on 2 L of oxygen through nasal cannula. Patient states she uses BiPAP at night and follows Dr. Sophia Arce in [facility]. Patient is being managed on scheduled bronchodilator, IV Solu-Medrol, Mucinex, incentive spirometry and Pep. Chest x-ray and CT head done which did not show acute infiltrate but is scarring at the lung bases with atelectasis. No PE. 2. Sinus tachycardia: Patient tachycardic on the monitor. Heart rate 128/min close to 140s. Denies history of PE or arrhythmia in the past, probably driven by COPD exacerbation. 1 dose of metoprolol 5 mg IV given. Current heart rate 82/min. 3. Recent comminuted left hip fracture due to mechanical fall patient was admitted between 10/11 to 10/13/2023 for hip fracture. She was discharged to SNF and then to home. PT and OT ordered. 4. Diabetes mellitus type 2 with mild hyperglycemia: Glucose in BMP is 162. Accu-Chek insulin cover with block sliding scale. 5. Dyslipidemia: On statin 6. Benign essential hypertension: BP was high systolic 172. Most recent 134/49. Continue home medication hydrochlorothiazide and losartan. Also on verapamil and metoprolol. 7. Depression: On Lexapro DVT prophylaxis: On Xarelto 10 mg daily. Living will/advanced directive/end of life care: Patient does have living will or advanced directive. Her daughter is power of workers compensation attorney for health. After discussion of benefits/risks procedures involved with full code, DNR CC arrest and DNR CC, the patient opted for full code. Patient does want artificial life support including intubation, tube feed, ventilator and/chest compression, central venous catheter, vasopressor and DC shock if needed Total time spent in [id number] encounter in discussion of advanced directive 17 minutes. Microbiology Past 72 Hours 11/17/23 11:25 Mucosa - Nasopharyngeal SARS-CoV-2, Influenza & RSV (PCR) - Final Laboratory Results 11/17/23 11:20: WBC 17.1 H, RBC 3.44 L, Hgb 10.5 L, Hct 32.6 L, MCV 94.8, MCH 30.5, MCHC 32.2, RDW Std Deviation 46.8 H, RDW Coeff of Tom 13.7, Plt Count 269, MPV 8.7, Immature Gran % (Auto) 0.600, Neut % (Auto) 85.2 H, Lymph % (Auto) 5.6 L, Terry % (Auto) 5.6, Eos % (Auto) 2.5, Baso % (Auto) 0.5, Absolute Neuts (auto) 14.6 H, Absolute Lymphs (auto) 0.96, Nucleated RBC % 0, Sodium 138, Potassium 3.8, Chloride 105, Carbon Dioxide 24.0, Anion Gap 9, BUN 16, Creatinine 0.90, Estim Creat Clear Calc 59.01, Est GFR (MDRD) Af Amer 79, Est GFR (MDRD) Non-Af 65, BUN/Creatinine Ratio 17.7, Glucose 162 H, Calcium 8.8, Troponin I High Sens 4, B-Natriuretic Peptide 21.1 Clinical Impression(s) from Imaging Studies Chest X-Ray 11/17/23 11:26 IMPRESSION: No acute abnormality is seen. Chest CTA 11/17/23 13:30 IMPRESSION: No evidence of pulmonary embolism. Findings suggestive of scarring at the lung bases with superimposed atelectasis. Cholelithiasis. Stable 2 cm left adrenal adenoma. Charges/Coding Visit Charges Inpatient E&M: 29222 Init Hosp L3 Procedures Hospitalists Procedures: 16470 Advncd Care Plan 30 Min
[2023-11-17] MEDS: levoFLOXacin 750 MG Tablet PO (14:42)
[2023-11-17] MEDS: MethylPREDNISolone 125 MG/2 ML Vial 80 MG IV (14:43)
[2023-11-17 14:44] LABS: Bedside Glucose 45 mg/dL (74-106)
[2023-11-17] MEDS: Metoprolol Tartrate 5 MG/5 ML Vial IV (15:14)
[2023-11-17 15:38] LABS: Bedside Glucose 175 mg/dL (74-106)
[2023-11-17 15:42] LABS: Base Excess -1 mmol/L (-2 to +2); Bicarbonate 23.8 mmol/L (22-26); Blood Gas Specimen Type ART; Mode Not entered; O2 Delivery Device Cannula; PO2 72 mmHG (75-100); SITE R Radial; SO2 95 % (95-99); Total Carbon Dioxide 25 mmol/L; pCO2 36.9 mmHg (35-45); pH 7.42 (7.35-7.45)
[2023-11-17] MEDS: guaiFENesin/D-Methorphan TAB.SR.12H 2 TABLET PO ×2 (19:03→21:36)
[2023-11-17] MEDS: Loratadine 10 MG Tablet PO (19:04)
[2023-11-17] MEDS: Metoprolol(XL)Succ 100 MG Tablet PO (19:04)
[2023-11-17] MEDS: Verapamil SR 240 MG Tablet 120 MG PO (21:36)
[2023-11-17] MEDS: 0.9% Saline Lock 10 ML Syringe IV (21:36)
[2023-11-18] VITALS (17 sets, daily range): BP systolic 95–151; BP diastolic 44–82; PULSE 79–97; RESP 16–22; TEMP 36.5–36.8; O2SAT 91–97
[2023-11-18] MEDS: Gabapentin 300 MG Capsule PO ×2 (00:18→20:33)
--- NOTE | 2023-11-18 00:48 | CPS ---
Pt does not wish to wear PAP at this time
[2023-11-18] MEDS: Ipratropium/Albuterol Sulfate 3 ML AMPUL.NEB INHALATION ×5 (02:25→20:12)
[2023-11-18] MEDS: 0.9% Saline Lock 10 ML Syringe IV (06:16)
[2023-11-18] MEDS: Acetaminophen 325 MG Tablet 650 MG PO ×2 (06:16→16:44)
[2023-11-18] MEDS: Rivaroxaban 10 MG Tablet PO (06:16)
[2023-11-18] MEDS: Insulin Lispro 100 UNIT/ML INSULN.PEN 20 UNIT SC (06:35)
[2023-11-18 07:24] LABS: Bedside Glucose 492 mg/dL (74-106)
--- NOTE | 2023-11-18 07:31 | PN.HOSP_ITS ---
Reason for Visit Reason for Visit: Diagnoses Chronic obstructive pulmonary disease with (acute) exacerbation (11/17/23) Hypoxemia (11/17/23) Subjective Subjective Patient is a 72-year-old lady with history of COPD presented with progressive shortness of breath with associated cough and upper respiratory tract symptoms. An assessment of COPD with acute exacerbation made admitted to regular nursing floor for further management Objective Data Objective Data Vital Signs: Vital Signs Temp Pulse Resp BP Pulse Ox O2 Del Method O2 Flow Rate 97.9 F 97 20 H 151/77 H 97 Nasal Cannula 2 11/18/23 02:00 11/18/23 02:26 11/18/23 02:26 11/18/23 02:00 11/18/23 02:00 11/18/23 02:00 11/18/23 02:00 Oxygen Flow Rate (L/min) 2 Oxygen Delivery Method Nasal Cannula Weight: 90.265 kg Body Mass Index (BMI) 37.5 Intake & Output: Intake and Output for Last 24 Hours 11/16/23 11/17/23 11/18/23 23:59 23:59 23:59 Output Total 900 / 900 Balance -900 / -900 Lab / Micro Data 11/18/23 07:05 11/18/23 07:05 Labs: Laboratory Results - last 24 hr 11/17/23 11:20: WBC 17.1 H, RBC 3.44 L, Hgb 10.5 L, Hct 32.6 L, MCV 94.8, MCH 30.5, MCHC 32.2, RDW Std Deviation 46.8 H, RDW Coeff of Tom 13.7, Plt Count 269, MPV 8.7, Immature Gran % (Auto) 0.600, Neut % (Auto) 85.2 H, Lymph % (Auto) 5.6 L, [place] % (Auto) 5.6, Eos % (Auto) 2.5, Baso % (Auto) 0.5, Absolute Neuts (auto) 14.6 H, Absolute Lymphs (auto) 0.96, Nucleated RBC % 0, Sodium 138, Potassium 3.8, Chloride 105, Carbon Dioxide 24.0, Anion Gap 9, BUN 16, Creatinine 0.90, Estim Creat Clear Calc 59.01, Est GFR (MDRD) Af Amer 79, Est GFR (MDRD) Non-Af 65, BUN/Creatinine Ratio 17.7, Glucose 162 H, Calcium 8.8, Troponin I High Sens 4, B-Natriuretic Peptide 21.1 11/17/23 14:27: POC Glucose 45 L 11/17/23 15:18: POC Glucose 175 H 11/18/23 06:20: POC Glucose 492 H* Micro: Microbiology 11/18/23 00:25 Urine, Clean Catch Legionella Antigen - Final 11/18/23 00:25 Urine, Clean Catch Streptococcus pneumoniae Antigen (M - Final 11/17/23 15:31 Mucosa - Nasopharyngeal Respiratory Panel (PCR) - Final 11/17/23 11:25 Mucosa - Nasopharyngeal SARS-CoV-2, Influenza & RSV (PCR) - Final ABG Data ABG results: ABG 11/17/23 15:38 Specimen Type ART Sample Site R Radial pH 7.42 Bicarbonate Actual 23.8 Total CO2 25 Base Excess -1 O2 Saturation 95 O2 % 2.0 ABG pCO2 36.9 ABG pO2 72 L O2 Delivery Device Cannula Vent Mode Not entered Radiography Diagnostic Testing: Radiology Impression Chest X-Ray 11/17/23 11:26 IMPRESSION: No acute abnormality is seen. Electronically Signed: Jean Rodriguez MD at 12:06 EDT , Chest CTA 11/17/23 13:30 IMPRESSION: No evidence of pulmonary embolism. Findings suggestive of scarring at the lung bases with superimposed atelectasis. Cholelithiasis. Stable 2 cm left adrenal adenoma. Electronically Signed: Jean Rodriguez MD at 14:08 EDT , Physical Exam Narrative GENERAL: cooperative HEENT: Atraumatic; normocephalic EYES; Anicteric, Normal Conjunctiva NECK; supple, normal thyroid, RESPIRATORY: Diminished to auscultation CARDIOVASCULAR: Regular S1 S2, GI: soft, normoactive bowel sounds, : No Renal angle tenderness; EXTREMITIES: No edema, no clubbing, MUSCULOSKELETAL: no muscle wasting NEURO: Awake; no lateralizing signs. SKIN: No Rash PSYCH; Flat affect Assessment & Plan Assessment/Plan (1) COPD with acute exacerbation: (2) Hypoxia: PLAN: Plan Patient is a 72-year-old lady with history of COPD presented with progressive shortness of breath with associated cough and upper respiratory tract symptoms. An assessment of COPD with acute exacerbation made admitted to regular nursing floor for further management 1. COPD with acute exacerbation ? Patient has been admitted to regular nursing floor managed with systemic steroid bronchodilator treatment as well as supplemental oxygen titrated to keep saturation greater than 90 2. Sinus tachycardia ? Thought to be reactive. 3. Fall with recent comminuted left hip fracture ?Patient underwent ORIF on 10/11/2023 was discharged to a intermediate facility will continue PT OT as tolerated 4. Class II obesity with BMI of 37.6 ? Complicating care weight loss advised 5. Dyslipidemia -Patient is on statin therapy, continued at home dose 6. Essential hypertension ? Patient blood pressure control on admission was not optimal at home medications were resumed we will continue monitoring with hydralazine return as needed for systolic blood pressure greater than 160 7. Dyslipidemia -Patient is on statin therapy, continued at home dose 8. Depression ? Patient is on Lexapro 9. Diabetes mellitus type 2 ? Uncontrolled due to concomitant use of systemic steroid. Glucose this a.m. 585. Adjusted patient insulin regimen. Also placed on Accu-Cheks before meals and at bedtime with sliding scale coverage 10. Hyponatremia ? Secondary to patient being on diuretic therapy specifically HCTZ will monitor with daily BMPs 11. Rheumatoid arthritis ? Patient is on methotrexate 12. Gastroparesis ? Patient is managed by GI as outpatient currently not on any prokinetic 13. Chronic congestive heart failure with preserved ejection fraction ? Patient was previously on metolazone currently off. Patient remains compens ated 14 . DVT prophylaxis ? Patient is on Xarelto Time spent in the patient's overall evaluation,decision-making process, review of diagnostic data, adjustment of management, discussion with other providers, nursing nursing and ancillary staff involved in patient's care documentation, 52 Minutes Charges/Coding Visit Charges Inpatient E&M: 64145 [facility] L3
[2023-11-18 07:35] LABS: Absolute Lymphocyte Count 0.56 X10^3/uL (0.83-4.51); Absolute Neutrophil Count 13.3 X10^3/uL (2.0-7.7); Basophil# 0.01 X10^3/uL; Basophil% 0.1 % (0-1); Hematocrit 30.5 % (37-47); Hemoglobin 9.9 g/dL (12.0-15.0); Lymphocyte # 0.56 X10^3/ul (0.83-4.51); Mean Corp Hgb Conc 32.5 g/dL (32-36); Mean Corpuscular Hgb 30.7 pg (27.0-32.0); Mean Corpuscular Volume 94.7 fL (81-99); Mean Platelet Vol. 9.1 fl (6.2-12.0); Monocyte# 0.11 X10^3/uL; Monocyte% 0.8 % (0-10); NRBC Flagged by Analyzer 0 % (0-5); Neutrophil # 13.27 X10^3/uL (2.7-7.7); Neutrophil % 94.6 % (47-70); POSITIVE DIFFERENTIAL YES; Platelet Count 292 K/mm3 (150-450); RBC Distribution Width CV 13.4 % (11.6-14.6); RBC Distribution Width SD 46.2 fl (35.1-43.9); Red Blood Count 3.22 M/mm3 (4.2-5.4)
[2023-11-18 08:34] LABS: Anion Gap 10 (5-15); BUN 22 mg/dL (7-18); BUN/Creat Ratio 16.3 RATIO (10-20); Calcium,Total 8.7 mg/dL (8.5-10.1); Chloride 101 mmol/L (98-107); Creatinine, Serum 1.35 mg/dL (0.55-1.02); EST Glomerular Filtration Rate 41 mL/min (>60); Est Glom Filt Rate - Afr Amer 50 mL/min (>60); Estimated Creatinine Clearance 39.09 ml/min; Glucose 585 mg/dL (74-106); Potassium 4.1 mmol/L (3.5-5.1); Sodium Level 132 mmol/L (136-145)
[2023-11-18] MEDS: Insulin Glargine-YFGN 100 UNIT/ML Pen 25 UNIT SC (09:40)
[2023-11-18] MEDS: Loratadine 10 MG Tablet PO (09:42)
[2023-11-18] MEDS: guaiFENesin/D-Methorphan TAB.SR.12H 2 TABLET PO ×2 (09:42→22:02)
[2023-11-18] MEDS: Metoprolol(XL)Succ 100 MG Tablet PO (09:43)
[2023-11-18] MEDS: Azithromycin 250 MG Tablet 500 MG PO (09:43)
[2023-11-18] MEDS: Aspirin E.C. 81 MG Tablet PO (09:44)
[2023-11-18] MEDS: Losartan Potassium 100 MG Tablet PO (09:44)
[2023-11-18] MEDS: hydroCHLOROthiazide 12.5mg 12.5 MG PO (09:44)
[2023-11-18 10:17] LABS: Bedside Glucose > 500 mg/dL (74-106)
--- NOTE | 2023-11-18 10:50 | CASEMGMT ---
CAROL SANZ Assessment Face to Face with patient for initial transition planning/care coordination assessment. CAROL SANZ introduced self and role at [facility], pt voices understanding. Pt is A&Ox4 and is resting comfortably in bed and is calm. Care providers, pharmacy, and demographics verified. Admitting dx: COPD Exacerbation LACE Strata: 3 PCP: Lyla Specialists:Brendon Chi, Baljeet Preferred Pharmacy: [facility] Insurance: Progressive Care Prescription Benefit: Yes LNOK: Mica Redd (ERNESTINA), [place] Beltran (Ernestina) Living Arrangements: Pt is currently living at her daughters home (Mica). Pt states that this is a 2 story home with a BM with HR throughout with 4 steps to enter. The pt denies issues at home. ADLs/IADLs: Pt states that she is ind. Pt states that if she needs assistance her daughter Mica can help her. Transportation: Self, Daughter DME: Working [employer] with enough supplies to check BS. Pulse Ox. Thermometer. BP Cuff. Walker but does not use. Walk in shower with seat and GB. Pt is currently on 2L of oxygen. A verbal list of local in-network DME companies provided to the pt and the pt chose [employer] for potential home oxygen needs. Will follow. HHC/SNF: [facility]. Pt is active with [facility] (SN, SW, PT, and OT). Pt?s goal: DC to the pt daughter's home with the continuation of HHC. Plan: 6-Click is 18. PT/OT eval pending. Pt states that she wishes to DC to her daughters home once medically ready with the continuation of her HHC. CM to follow for safe DC from [facility]. Dread Sutton RN, CM
[2023-11-18] MEDS: Pantoprazole Sodium 40 MG Tablet PO (11:16)
[2023-11-18] MEDS: Escitalopram Oxalate 10 MG Tablet PO (11:16)
[2023-11-18] MEDS: Tolterodine Tartrate 4 MG CAP.SA PO (11:16)
[2023-11-18] MEDS: Folic Acid 1 MG Tablet 2 MG PO (11:16)
--- NOTE | 2023-11-18 11:21 | NURSING ---
This RN got pts Blood sugar and it only said HI. This RN called lab to get glucose chem.
--- NOTE | 2023-11-18 11:29 | NURSING ---
Lab here to get lab back up for Glucometer reading of HI
--- NOTE | 2023-11-18 11:50 | NURSING ---
Glucose for lab back up still pending.
[2023-11-18 11:55] LABS: Bedside Glucose > 500 mg/dL (74-106)
[2023-11-18 12:06] LABS: Glucose 790 mg/dL (74-106)
[2023-11-18] MEDS: Insulin Lispro 100 UNIT/ML INSULN.PEN 10 UNIT SC (12:16)
[2023-11-18] MEDS: Insulin Lispro 100 UNIT/ML INSULN.PEN SC (12:16)
[2023-11-18] MEDS: Insulin Lispro 100 UNIT/ML INSULN.PEN 25 UNIT SC (12:36)
--- NOTE | 2023-11-18 13:07 | NURSING ---
Pt just got done eating lunch and visiting with PAstor Barrientos at bedside. Pt does not feel like her blood sugar is high. Pt had Insulin recently, see EMAR. This RN repeated blood sugar check on on Glucometer it read Hi again. This RN put in another order for glucose chem. Lab aware that it is stat and said they would be up.
[2023-11-18 13:23] LABS: Bedside Glucose > 500 mg/dL (74-106)
[2023-11-18 13:54] LABS: Anion Gap 9 (5-15); Chloride 100 mmol/L (98-107); Glucose 849 mg/dL (74-106); Potassium 4.5 mmol/L (3.5-5.1); Sodium Level 131 mmol/L (136-145)
--- NOTE | 2023-11-18 14:30 | NURSING ---
Pt and her daughter both aware that pt is going to be transferred to PCU for insulin drip.
--- NOTE | 2023-11-18 15:05 | NURSING ---
Report given to Linda MEDINA in PCU.
[2023-11-18] MEDS: Insulin Lispro 100 UNIT in 0.9% Normal Saline (100mL Bag) 99 ML 9 UNIT CONT INF (15:53)
[2023-11-18 16:13] LABS: Bedside Glucose > 500 mg/dL (74-106)
--- NOTE | 2023-11-18 16:13 | CHAPLAIN ---
Type of Pastoral Visit _x__ Initial Visit ___ Follow-up Visit ___ On-call Visit ___ General Patient Visit ___ Spiritual Assessment ___ Family Conference ___ Bereavement ___ Rapid Response ___ Code Blue ___ Other (describe below) Pastoral Care Referral From _x__ Patient ___ Family ___ Nurse ___ Physician ___ Psychiatric Social Worker ___ Crane Manager ___ Other (describe below) Sacrament/Intervention _x__ Active listening ___ Anointing ___ Mu-Ism ___ Bereavement ___ Communion ___ Deepa exploration ___ ___ Life review _x__ Prayer ___ Reconciliation ___ Sacrament of Sick _x__ Supportive presence ___ Wedding ___ Other (describe below) Pastoral Comments
[2023-11-18 16:47] LABS: Glucose 642 mg/dL (74-106)
[2023-11-18 17:55] LABS: Glucose 466 mg/dL (74-106)
[2023-11-18 18:02] LABS: Bedside Glucose 447 mg/dL (74-106)
[2023-11-18 19:04] LABS: Bedside Glucose 360 mg/dL (74-106)
[2023-11-18 20:23] LABS: Bedside Glucose 338 mg/dL (74-106)
[2023-11-18] MEDS: Atorvastatin Calcium 20 MG Tablet PO (20:34)
[2023-11-18 21:06] LABS: Bedside Glucose 398 mg/dL (74-106)
[2023-11-18] MEDS: Verapamil SR 240 MG Tablet 120 MG PO (22:02)
[2023-11-18 22:23] LABS: Bedside Glucose 382 mg/dL (74-106)
[2023-11-18 23:15] LABS: Bedside Glucose 372 mg/dL (74-106)
[2023-11-19] VITALS (17 sets, daily range): BP systolic 101–122; BP diastolic 49–95; PULSE 69–88; RESP 15–20; TEMP 36.1–36.8; O2SAT 92–97
[2023-11-19 00:11] LABS: Bedside Glucose 343 mg/dL (74-106)
[2023-11-19 02:08] LABS: Bedside Glucose 305 mg/dL (74-106)
[2023-11-19 04:37] LABS: Bedside Glucose 241 mg/dL (74-106)
[2023-11-19 05:11] LABS: Bedside Glucose 254 mg/dL (74-106)
[2023-11-19] MEDS: Rivaroxaban 10 MG Tablet PO (05:53)
[2023-11-19 06:37] LABS: Bedside Glucose 223 mg/dL (74-106)
[2023-11-19 07:06] LABS: Bedside Glucose 202 mg/dL (74-106)
[2023-11-19] MEDS: predniSONE 20 MG Tablet 40 MG PO (07:39)
[2023-11-19] MEDS: Ipratropium/Albuterol Sulfate 3 ML AMPUL.NEB INHALATION ×4 (07:42→19:30)
[2023-11-19 08:05] LABS: Absolute Lymphocyte Count 1.36 X10^3/uL (0.83-4.51); Absolute Neutrophil Count 15.9 X10^3/uL (2.0-7.7); Basophil# 0.03 X10^3/uL; Basophil% 0.2 % (0-1); Eosinophil# 0.01 X10^3/uL; Eosinophils% 0.1 % (0-5); Hematocrit 28.7 % (37-47); Hemoglobin 9.2 g/dL (12.0-15.0); Lymphocyte # 1.36 X10^3/ul (0.83-4.51); Lymphocyte % 7.4 % (19-41); Mean Corp Hgb Conc 32.1 g/dL (32-36); Mean Corpuscular Hgb 30.6 pg (27.0-32.0); Mean Corpuscular Volume 95.3 fL (81-99); Monocyte# 0.85 X10^3/uL; Monocyte% 4.6 % (0-10); NRBC Flagged by Analyzer 0 % (0-5); Neutrophil # 15.94 X10^3/uL (2.7-7.7); Platelet Count 342 K/mm3 (150-450); RBC Distribution Width CV 13.7 % (11.6-14.6); RBC Distribution Width SD 46.2 fl (35.1-43.9); Red Blood Count 3.01 M/mm3 (4.2-5.4); White Blood Count 18.3 K/mm3 (4.4-11.0)
--- NOTE | 2023-11-19 08:23 | PN.HOSP_ITS ---
Reason for Visit Reason for Visit: Diagnoses Chronic obstructive pulmonary disease with (acute) exacerbation (11/17/23) Hypoxemia (11/17/23) Subjective Subjective Patient was transferred to a monitored bed started on insulin drip given persistently high glucose levels. Patient glucose levels were in the 700s. Objective Data Objective Data Vital Signs: Vital Signs Temp Pulse Resp BP Pulse Ox O2 Del Method O2 Flow Rate 98.2 F 80 18 117/55 L 96 Nasal Cannula 3 11/19/23 08:00 11/19/23 08:00 11/19/23 08:00 11/19/23 08:00 11/19/23 08:00 11/19/23 08:00 11/19/23 08:00 Oxygen Flow Rate (L/min) 3 Oxygen Delivery Method Nasal Cannula Weight: 90.265 kg Body Mass Index (BMI) 37.5 Intake & Output: Intake and Output for Last 24 Hours 11/17/23 11/18/23 11/19/23 23:59 23:59 23:59 Intake Total 583.39 / 783.39 271.99 / 271.99 Output Total 900 / 1250 850 / 850 Balance -316.61 / -466.61 -578.01 / -578.01 Lab / Micro Data 11/19/23 07:35 11/19/23 07:35 Labs: Laboratory Results - last 24 hr 11/18/23 07:05: Sodium 132 L, Potassium 4.1, Chloride 101, Carbon Dioxide 21.0, Anion Gap 10, BUN 22 H, Creatinine 1.35 H, Estim Creat Clear Calc 39.09, Est GFR (MDRD) Af Amer 50 L, Est GFR (MDRD) Non-Af 41 L, BUN/Creatinine Ratio 16.3, Glucose 585 H*, Calcium 8.7 11/18/23 09:23: POC Glucose > 500 H* 11/18/23 11:21: POC Glucose > 500 H* 11/18/23 11:31: Glucose 790 H* 11/18/23 13:04: POC Glucose > 500 H* 11/18/23 13:16: Sodium 131 L, Potassium 4.5, Chloride 100, Carbon Dioxide 22.0, Anion Gap 9, Glucose 849 H* 11/18/23 15:39: POC Glucose > 500 H* 11/18/23 16:10: Glucose 642 H* 11/18/23 17:34: Glucose 466 H* 11/18/23 17:43: POC Glucose 447 H 11/18/23 18:45: POC Glucose 360 H 11/18/23 19:43: POC Glucose 338 H 11/18/23 20:43: POC Glucose 398 H 11/18/23 21:58: POC Glucose 382 H 11/18/23 22:54: POC Glucose 372 H 11/18/23 23:50: POC Glucose 343 H 11/19/23 01:45: POC Glucose 305 H 11/19/23 03:46: POC Glucose 241 H 11/19/23 04:50: POC Glucose 254 H 11/19/23 05:52: POC Glucose 223 H 11/19/23 06:44: POC Glucose 202 H 11/19/23 07:35: WBC 18.3 H, RBC 3.01 L, Hgb 9.2 L, Hct 28.7 L, MCV 95.3, MCH 30.6, MCHC 32.1, RDW Std Deviation 46.2 H, RDW Coeff of Tom 13.7, Plt Count 342, MPV 9.0, Immature Gran % (Auto) 0.700, Neut % (Auto) 87.0 H, Lymph % (Auto) 7.4 L, [place] % (Auto) 4.6, Eos % (Auto) 0.1, Baso % (Auto) 0.2, Absolute Neuts (auto) 15.9 H, Absolute Lymphs (auto) 1.36, Nucleated RBC % 0 Micro: Microbiology 11/17/23 11:53 Blood Culture (Wb) - Right Forearm Blood Culture - Preliminary No growth in 48 hours. 11/17/23 11:20 Blood Culture (Wb) - Right Forearm Blood Culture - Preliminary No growth in 48 hours. 11/17/23 21:15 Sputum, Expectorated/Coughed Gram Stain - Final 11/18/23 00:25 Urine, Clean Catch Legionella Antigen - Final 11/18/23 00:25 Urine, Clean Catch Streptococcus pneumoniae Antigen (M - Final 11/17/23 15:31 Mucosa - Nasopharyngeal Respiratory Panel (PCR) - Final 11/17/23 11:25 Mucosa - Nasopharyngeal SARS-CoV-2, Influenza & RSV (PCR) - Final Physical Exam Narrative GENERAL: cooperative HEENT: Atraumatic; normocephalic EYES; Anicteric, Normal Conjunctiva NECK; supple, normal thyroid, RESPIRATORY: Diminished to auscultation CARDIOVASCULAR: Regular S1 S2, GI: soft, normoactive bowel sounds, : No Renal angle tenderness; EXTREMITIES: No edema, no clubbing, MUSCULOSKELETAL: no muscle wasting NEURO: Awake; no lateralizing signs. SKIN: No Rash PSYCH; Flat affect Assessment & Plan Assessment/Plan (1) COPD with acute exacerbation: (2) Hypoxia: PLAN: Plan Patient is a 72-year-old lady with history of COPD presented with progressive shortness of breath with associated cough and upper respiratory tract symptoms. An assessment of COPD with acute exacerbation made admitted to regular nursing floor for further management 1. COPD with acute exacerbation ? Patient has been admitted to regular nursing floor managed with systemic steroid bronchodilator treatment as well as supplemental oxygen titrated to keep saturation greater than 90 2. Sinus tachycardia ? Thought to be reactive. 3. Fall with recent comminuted left hip fracture ?Patient underwent ORIF on 10/11/2023 was discharged to a care home facility will continue PT OT as tolerated 4. Class II obesity with BMI of 37.6 ? Complicating care weight loss advised 5. Dyslipidemia -Patient is on statin therapy, continued at home dose 6. Essential hypertension ? Patient blood pressure control on admission was not optimal at home medications were resumed we will continue monitoring with hydralazine return as needed for systolic blood pressure greater than 160 7. Dyslipidemia -Patient is on statin therapy, continued at home dose 8. Depression ? Patient is on Lexapro 9. Diabetes mellitus type 2 ? Uncontrolled due to concomitant use of systemic steroid. Glucose this a.m. 585. Adjusted patient insulin regimen. Also placed on Accu-Cheks before meals and at bedtime with sliding scale coverage ? 11/19/2023;Patient was transferred to a monitored bed started on insulin drip given persistently high glucose levels. Patient glucose levels were in the 700s. 10. Hyponatremia ? Secondary to patient being on diuretic therapy specifically HCTZ will monitor with daily BMPs 11. Rheumatoid arthritis ? Patient is on methotrexate 12. Gastroparesis ? Patient is managed by GI as outpatient currently not on any prokinetic 13. Chronic congestive heart failure with preserved ejection fraction ? Patient was previously on metolazone currently off. Patient remains compensated 14 . DVT prophylaxis ? Patient is on Xarelto Time spent in the patient's overall evaluation,decision-making process, review of diagnostic data, adjustment of management, discussion with other providers, nursing nursing and ancillary staff involved in patient's care documentation, 50 Minutes Charges/Coding Visit Charges Inpatient E&M: 41693 [facility] Hosp L3
[2023-11-19 08:39] LABS: Anion Gap 6 (5-15); BUN 41 mg/dL (7-18); BUN/Creat Ratio 31.8 RATIO (10-20); Calcium,Total 8.6 mg/dL (8.5-10.1); Chloride 105 mmol/L (98-107); Creatinine, Serum 1.29 mg/dL (0.55-1.02); EST Glomerular Filtration Rate 43 mL/min (>60); Est Glom Filt Rate - Afr Amer 52 mL/min (>60); Estimated Creatinine Clearance 40.91 ml/min; Glucose 201 mg/dL (74-106); Magnesium 2.6 mg/dL (1.6-2.6); Phosphorus 4.4 mg/dL (2.5-4.9); Sodium Level 137 mmol/L (136-145)
[2023-11-19] MEDS: Insulin Glargine-YFGN 100 UNIT/ML Pen 25 UNIT SC (08:45)
[2023-11-19] MEDS: Insulin Lispro 100 UNIT/ML INSULN.PEN SC ×4 (08:47→21:23)
[2023-11-19] MEDS: Losartan Potassium 100 MG Tablet PO (08:51)
[2023-11-19] MEDS: Loratadine 10 MG Tablet PO (08:51)
[2023-11-19] MEDS: Tolterodine Tartrate 4 MG CAP.SA PO (08:51)
[2023-11-19] MEDS: Aspirin E.C. 81 MG Tablet PO (08:52)
[2023-11-19] MEDS: hydroCHLOROthiazide 12.5mg 12.5 MG PO (08:52)
[2023-11-19] MEDS: Escitalopram Oxalate 10 MG Tablet PO (08:52)
[2023-11-19] MEDS: Pantoprazole Sodium 40 MG Tablet PO (08:53)
[2023-11-19] MEDS: Metoprolol(XL)Succ 100 MG Tablet PO (08:53)
[2023-11-19] MEDS: guaiFENesin/D-Methorphan TAB.SR.12H 2 TABLET PO ×2 (08:53→21:18)
[2023-11-19] MEDS: Azithromycin 250 MG Tablet 500 MG PO (08:54)
[2023-11-19] MEDS: Verapamil SR 240 MG Tablet 120 MG PO (08:54)
[2023-11-19 09:24] LABS: Bedside Glucose 204 mg/dL (74-106)
[2023-11-19 12:35] LABS: Bedside Glucose 451 mg/dL (74-106)
[2023-11-19] MEDS: Insulin Lispro 100 UNIT/ML INSULN.PEN 10 UNIT SC ×2 (12:40→17:12)
[2023-11-19 12:45] LABS: Bedside Glucose 433 mg/dL (74-106)
[2023-11-19] MEDS: Fluticasone 0.05% 1 SPRAY NASAL.SRY NASAL (14:57)
[2023-11-19 15:26] LABS: Bedside Glucose 371 mg/dL (74-106)
--- NOTE | 2023-11-19 16:11 | CASEMGMT ---
Social Work SW let pt know that LW/POA forms are not on file. Pt will ask her daughter to bring in the documents. DONAVON White
[2023-11-19 17:35] LABS: Bedside Glucose 416 mg/dL (74-106)
[2023-11-19] MEDS: Gabapentin 300 MG Capsule PO (21:17)
[2023-11-19] MEDS: Atorvastatin Calcium 20 MG Tablet PO (21:20)
[2023-11-19] MEDS: Insulin Glargine-YFGN 100 UNIT/ML Pen 50 UNIT SC (21:29)
[2023-11-19 23:25] LABS: Bedside Glucose 314 mg/dL (74-106)
[2023-11-20] VITALS (10 sets, daily range): BP systolic 117–128; BP diastolic 52–62; PULSE 77–89; RESP 16–20; TEMP 36.3–37.1; O2SAT 93–97
--- NOTE | 2023-11-20 04:58 | CPS ---
bipap not in room, pt doesn't wear at home, in process of obtaining new machine.
[2023-11-20] MEDS: Rivaroxaban 10 MG Tablet PO (05:39)
[2023-11-20] MEDS: Ipratropium/Albuterol Sulfate 3 ML AMPUL.NEB INHALATION ×4 (06:57→19:26)
[2023-11-20 08:01] LABS: Anion Gap 5 (5-15); BUN 43 mg/dL (7-18); BUN/Creat Ratio 38.4 RATIO (10-20); Calcium,Total 8.1 mg/dL (8.5-10.1); Chloride 108 mmol/L (98-107); Creatinine, Serum 1.12 mg/dL (0.55-1.02); EST Glomerular Filtration Rate 51 mL/min (>60); Est Glom Filt Rate - Afr Amer 62 mL/min (>60); Estimated Creatinine Clearance 47.12 ml/min; Glucose 132 mg/dL (74-106); Potassium 4.4 mmol/L (3.5-5.1); Sodium Level 136 mmol/L (136-145)
[2023-11-20] MEDS: Insulin Glargine-YFGN 100 UNIT/ML Pen 50 UNIT SC ×2 (08:07→21:38)
[2023-11-20] MEDS: Insulin Lispro 100 UNIT/ML INSULN.PEN 25 UNIT SC ×3 (08:07→16:27)
[2023-11-20] MEDS: Folic Acid 1 MG Tablet 2 MG PO (08:08)
[2023-11-20] MEDS: predniSONE 20 MG Tablet 40 MG PO (08:08)
--- NOTE | 2023-11-20 08:21 | PCM.PN.HOSP ---
Reason for Visit Reason for Visit: Diagnoses Chronic obstructive pulmonary disease with (acute) exacerbation (11/17/23) Hypoxemia (11/17/23) Objective Data Objective Data Vital Signs: Vital Signs Temp Pulse Resp BP Pulse Ox O2 Del Method O2 Flow Rate 98.8 F 82 18 128/62 H 95 Nasal Cannula 2 11/20/23 08:13 11/20/23 08:13 11/20/23 08:13 11/20/23 08:13 11/20/23 08:13 11/20/23 08:15 11/20/23 08:15 Oxygen Flow Rate (L/min) 2 Oxygen Delivery Method Nasal Cannula Weight: 90.265 kg Body Mass Index (BMI) 37.5 Intake & Output: Intake and Output for Last 24 Hours 11/18/23 11/19/23 11/20/23 23:59 23:59 23:59 Intake Total 583.39 / 783.39 271.99 / 271.99 Output Total 900 / 1250 850 / 850 Balance -316.61 / -466.61 -578.01 / -578.01 Lab / Micro Data 11/20/23 08:15 11/20/23 05:50 Labs: Laboratory Results - last 24 hr 11/19/23 07:34: POC Glucose 204 H 11/19/23 07:35: Sodium 137, Potassium 4.0, Chloride 105, Carbon Dioxide 26.0, Anion Gap 6, BUN 41 H, Creatinine 1.29 H, Estim Creat Clear Calc 40.91, Est GFR (MDRD) Af Amer 52 L, Est GFR (MDRD) Non-Af 43 L, BUN/Creatinine Ratio 31.8 H, Glucose 201 H, Calcium 8.6, Phosphorus 4.4, Magnesium 2.6 11/19/23 11:13: POC Glucose 451 H* 11/19/23 12:24: POC Glucose 433 H 11/19/23 14:54: POC Glucose 371 H 11/19/23 17:10: POC Glucose 416 H 11/19/23 21:15: POC Glucose 314 H 11/20/23 05:50: WBC Cancelled, Corrected WBC Cancelled, RBC Cancelled, Hgb Cancelled, Hct Cancelled, MCV Cancelled, MCH Cancelled, MCHC Cancelled, RDW Std Deviation Cancelled, RDW Coeff of Tom Cancelled, Plt Count Cancelled, MPV Cancelled, Immature Gran % (Auto) Cancelled, Neut % (Auto) Cancelled, Lymph % (Auto) Cancelled, [place] % (Auto) Cancelled, Eos % (Auto) Cancelled, Baso % (Auto) Cancelled, Absolute Neuts (auto) Cancelled, Absolute Lymphs (auto) Cancelled, Total Counted Cancelled, Neutrophils % (Manual) Cancelled, Band Neutrophils % Cancelled, Lymphocytes % (Manual) Cancelled, Monocytes % (Manual) Cancelled, Eosinophils % (Manual) Cancelled, Basophils % (Manual) Cancelled, Metamyelocytes % Cancelled, Myelocytes % Cancelled, Promyelocytes % Cancelled, Blast Cells % Cancelled, Plasma Cell % (Manual) Cancelled, Other Cells % Cancelled, Nucleated RBC % Cancelled, Nucleated RBCs/100 WBC Cancelled, Differential Comment Cancelled, Diff Path Review Cancelled, Hypersegmented Neuts Cancelled, Atypical Lymphocytes Cancelled, Reactive Lymphocytes Cancelled, Smudge Cells Cancelled, Toxic Granulation Cancelled, Toxic Vacuolation Cancelled, Dohle Bodies Cancelled, Stacia Rods Cancelled, Platelet Estimate Cancelled, Plt Morphology Comment Cancelled, RBC Morphology Cancelled 11/20/23 05:50: RBC Morphology Cancelled, Polychromasia Cancelled, Hypochromasia Cancelled, Basophilic Stippling Cancelled, Anisocytosis Cancelled, Microcytosis Cancelled, Macrocytosis Cancelled, Spherocytes Cancelled, Sickle Cells Cancelled, Target Cells Cancelled, Tear Drop Cells Cancelled, Ovalocytes Cancelled, Stomatocytes Cancelled, [place] Bodies Cancelled, Cristela Cells Cancelled, Bite Cells Cancelled, Crenated Cell Cancelled, Acanthocytes (Spur) Cancelled, Rouleaux Cancelled, Schistocytes Cancelled, Sodium 136, Potassium 4.4, Chloride 108 H, Carbon Dioxide 23.0, Anion Gap 5, BUN 43 H, Creatinine 1.12 H, Estim Creat Clear Calc 47.12, Est GFR (MDRD) Af Amer 62, Est GFR (MDRD) Non-Af 51 L, BUN/Creatinine Ratio 38.4 H, Glucose 132 H, Calcium 8.1 L Micro: Microbiology 11/17/23 21:15 Sputum, Expectorated/Coughed Gram Stain - Final 11/17/23 21:15 Sputum, Expectorated/Coughed Respiratory Culture - Preliminary Appears to be normal respiratory john. Further studies to follow. 11/17/23 11:53 Blood Culture (Wb) - Right Forearm Blood Culture - Preliminary No growth in 48 hours. 11/17/23 11:20 Blood Culture (Wb) - Right Forearm Blood Culture - Preliminary No growth in 48 hours. 11/18/23 00:25 Urine, Clean Catch Legionella Antigen - Final 11/18/23 00:25 Urine, Clean Catch Streptococcus pneumoniae Antigen (M - Final 11/17/23 15:31 Mucosa - Nasopharyngeal Respiratory Panel (PCR) - Final 11/17/23 11:25 Mucosa - Nasopharyngeal SARS-CoV-2, Influenza & RSV (PCR) - Final Physical Exam Narrative GENERAL: cooperative HEENT: Atraumatic; normocephalic EYES; Anicteric, Normal Conjunctiva NECK; supple, normal thyroid, RESPIRATORY: Diminished to auscultation CARDIOVASCULAR: Regular S1 S2, GI: soft, normoactive bowel sounds, : No Renal angle tenderness; EXTREMITIES: No edema, no clubbing, MUSCULOSKELETAL: no muscle wasting NEURO: Awake; no lateralizing signs. SKIN: No Rash PSYCH; Flat affect Assessment & Plan Assessment/Plan (1) COPD with acute exacerbation: (2) Hypoxia: PLAN: Plan Patient is a 72-year-old lady with history of COPD presented with progressive shortness of breath with associated cough and upper respiratory tract symptoms. An assessment of COPD with acute exacerbation made admitted to regular nursing floor for further management 1. COPD with acute exacerbation ? Patient has been admitted to regular nursing floor managed with systemic steroid bronchodilator treatment as well as supplemental oxygen titrated to keep saturation greater than 90 skilled ? 11/20/2023 patient remains on supplemental oxygen plan is to wean off oxygen prior to discharge. 2. Diabetes mellitus type 2 ? Uncontrolled due to concomitant use of systemic steroid. Glucose this a.m. 585. Adjusted patient insulin regimen. Also placed on Accu-Cheks before meals and at bedtime with sliding scale coverage ? 11/19/2023;Patient was transferred to a monitored bed started on insulin drip given persistently high glucose levels. Patient glucose levels were in the 700s. ? 11/20/2023 insulin drip has been weaned off 3. Fall with recent comminuted left hip fracture ?Patient underwent ORIF on 10/11/2023 was discharged to a assisted facility will continue PT OT as tolerated 4. Class II obesity with BMI of 37.6 ? Complicating care weight loss advised 5. Dyslipidemia -Patient is on statin therapy, continued at home dose 6. Essential hypertension ? Patient blood pressure control on admission was not optimal at home medications were resumed we will continue monitoring with hydralazine return as needed for systolic blood pressure greater than 160 7. Dyslipidemia -Patient is on statin therapy, continued at home dose 8. Depression ? Patient is on Lexapro 9. Sinus tachycardia ? Thought to be reactive. 10. Hyponatremia ? Secondary to patient being on diuretic therapy specifically HCTZ will monitor with daily BMPs 11. Rheumatoid arthritis ? Patient is on methotrexate 12. Gastroparesis ? Patient is managed by GI as outpatient currently not on any prokinetic 13. Chronic congestive heart failure with preserved ejection fraction ? Patient was previously on metolazone currently off. Patient remains compensated 14 . DVT prophylaxis ? Patient is on Xarelto Time spent in the patient's overall evaluation,decision-making process, review of diagnostic data, adjustment of management, discussion with other providers, nursing nursing and ancillary staff involved in patient's care documentation, 35 Minutes Charges/Coding Visit Charges Inpatient E&M: 87254 [facility] Hosp L2
[2023-11-20 08:24] LABS: Absolute Lymphocyte Count 2.41 X10^3/uL (0.83-4.51); Absolute Neutrophil Count 6.8 X10^3/uL (2.0-7.7); Basophil# 0.03 X10^3/uL; Basophil% 0.3 % (0-1); Hematocrit 28.3 % (37-47); Hemoglobin 9.1 g/dL (12.0-15.0); Lymphocyte # 2.41 X10^3/ul (0.83-4.51); Lymphocyte % 23.4 % (19-41); Mean Corp Hgb Conc 32.2 g/dL (32-36); Mean Corpuscular Hgb 30.5 pg (27.0-32.0); Mean Platelet Vol. 8.6 fl (6.2-12.0); Monocyte# 0.91 X10^3/uL; Monocyte% 8.8 % (0-10); NRBC Flagged by Analyzer 0 % (0-5); Neutrophil # 6.77 X10^3/uL (2.7-7.7); Neutrophil % 65.8 % (47-70); Platelet Count 290 K/mm3 (150-450); RBC Distribution Width CV 13.8 % (11.6-14.6); RBC Distribution Width SD 47.2 fl (35.1-43.9); Red Blood Count 2.98 M/mm3 (4.2-5.4); White Blood Count 10.3 K/mm3 (4.4-11.0)
[2023-11-20 08:39] LABS: Bedside Glucose 132 mg/dL (74-106)
[2023-11-20] MEDS: Loratadine 10 MG Tablet PO (10:58)
[2023-11-20] MEDS: Losartan Potassium 100 MG Tablet PO (10:59)
[2023-11-20] MEDS: Tolterodine Tartrate 4 MG CAP.SA PO (10:59)
[2023-11-20] MEDS: Fluticasone 0.05% 1 SPRAY NASAL.SRY NASAL (11:00)
[2023-11-20] MEDS: hydroCHLOROthiazide 12.5mg 12.5 MG PO (11:00)
[2023-11-20] MEDS: Aspirin E.C. 81 MG Tablet PO (11:00)
[2023-11-20] MEDS: Escitalopram Oxalate 10 MG Tablet PO (11:00)
[2023-11-20] MEDS: Metoprolol(XL)Succ 100 MG Tablet PO (11:01)
[2023-11-20] MEDS: Pantoprazole Sodium 40 MG Tablet PO (11:01)
[2023-11-20] MEDS: guaiFENesin/D-Methorphan TAB.SR.12H 2 TABLET PO ×2 (11:01→21:37)
[2023-11-20] MEDS: Azithromycin 250 MG Tablet 500 MG PO (11:02)
[2023-11-20 11:36] LABS: Bedside Glucose 129 mg/dL (74-106)
[2023-11-20] MEDS: Insulin Lispro 100 UNIT/ML INSULN.PEN SC ×2 (16:26→21:45)
[2023-11-20 16:56] LABS: Bedside Glucose 175 mg/dL (74-106)
[2023-11-20] MEDS: Atorvastatin Calcium 20 MG Tablet PO (21:37)
[2023-11-20] MEDS: Gabapentin 300 MG Capsule PO (21:37)
[2023-11-20] MEDS: Verapamil SR 240 MG Tablet 120 MG PO (21:38)
[2023-11-20] MEDS: Acetaminophen 325 MG Tablet 650 MG PO (21:45)
[2023-11-20 22:47] LABS: Bedside Glucose 282 mg/dL (74-106)
[2023-11-21] VITALS (7 sets, daily range): BP systolic 130–131; BP diastolic 53–68; PULSE 67–85; RESP 15–19; TEMP 36.6; O2SAT 90–97
[2023-11-21 04:20] LABS: Absolute Lymphocyte Count 2.09 X10^3/uL (0.83-4.51); Absolute Neutrophil Count 6.5 X10^3/uL (2.0-7.7); Basophil# 0.02 X10^3/uL; Basophil% 0.2 % (0-1); Eosinophil# 0.09 X10^3/uL; Eosinophils% 0.9 % (0-5); Hematocrit 28.8 % (37-47); Hemoglobin 9.2 g/dL (12.0-15.0); Lymphocyte # 2.09 X10^3/ul (0.83-4.51); Lymphocyte % 21.7 % (19-41); Mean Corp Hgb Conc 31.9 g/dL (32-36); Mean Corpuscular Hgb 30.5 pg (27.0-32.0); Mean Corpuscular Volume 95.4 fL (81-99); Mean Platelet Vol. 8.8 fl (6.2-12.0); Monocyte# 0.87 X10^3/uL; NRBC Flagged by Analyzer 0 % (0-5); Neutrophil # 6.47 X10^3/uL (2.7-7.7); Neutrophil % 67.3 % (47-70); Platelet Count 304 K/mm3 (150-450); RBC Distribution Width CV 13.7 % (11.6-14.6); Red Blood Count 3.02 M/mm3 (4.2-5.4); White Blood Count 9.6 K/mm3 (4.4-11.0)
[2023-11-21 04:46] LABS: Anion Gap 4 (5-15); BUN 27 mg/dL (7-18); BUN/Creat Ratio 28.9 RATIO (10-20); Calcium,Total 8.2 mg/dL (8.5-10.1); Chloride 108 mmol/L (98-107); Creatinine, Serum 0.93 mg/dL (0.55-1.02); EST Glomerular Filtration Rate 63 mL/min (>60); Est Glom Filt Rate - Afr Amer 76 mL/min (>60); Estimated Creatinine Clearance 56.75 ml/min; Glucose 140 mg/dL (74-106); Potassium 3.7 mmol/L (3.5-5.1); Sodium Level 139 mmol/L (136-145)
[2023-11-21] MEDS: Rivaroxaban 10 MG Tablet PO (05:26)
[2023-11-21] MEDS: Ipratropium/Albuterol Sulfate 3 ML AMPUL.NEB INHALATION ×2 (07:50→14:54)
--- NOTE | 2023-11-21 08:18 | PCM.PN.HOSP ---
Reason for Visit Reason for Visit: Diagnoses Chronic obstructive pulmonary disease with (acute) exacerbation (11/17/23) Hypoxemia (11/17/23) Objective Data Objective Data Vital Signs: Vital Signs Temp Pulse Resp BP Pulse Ox O2 Del Method O2 Flow Rate 97.8 F 67 18 131/61 H 97 Room Air 2 11/21/23 03:32 11/21/23 03:32 11/21/23 03:32 11/21/23 03:32 11/21/23 03:32 11/21/23 03:32 11/20/23 16:28 Oxygen Flow Rate (L/min) 2 Oxygen Delivery Method Room Air Weight: 199 lb 0.004 oz Body Mass Index (BMI) 37.5 Intake & Output: Intake and Output for Last 24 Hours 11/19/23 11/20/23 11/21/23 23:59 23:59 23:59 Intake Total 271.99 / 271.99 960 / 960 Output Total 850 / 850 Balance -578.01 / -578.01 960 / 960 Lab / Micro Data 11/21/23 03:50 11/21/23 03:50 Labs: Laboratory Results - last 24 hr 11/20/23 08:05: POC Glucose 132 H 11/20/23 08:15: WBC 10.3, RBC 2.98 L, Hgb 9.1 L, Hct 28.3 L, MCV 95.0, MCH 30.5, MCHC 32.2, RDW Std Deviation 47.2 H, RDW Coeff of Tom 13.8, Plt Count 290, MPV 8.6, Immature Gran % (Auto) 0.700, Neut % (Auto) 65.8, Lymph % (Auto) 23.4, [place] % (Auto) 8.8, Eos % (Auto) 1.0, Baso % (Auto) 0.3, Absolute Neuts (auto) 6.8, Absolute Lymphs (auto) 2.41, Nucleated RBC % 0 11/20/23 11:13: POC Glucose 129 H 11/20/23 16:25: POC Glucose 175 H 11/20/23 21:31: POC Glucose 282 H 11/21/23 03:50: WBC 9.6, RBC 3.02 L, Hgb 9.2 L, Hct 28.8 L, MCV 95.4, MCH 30.5, MCHC 31.9 L, RDW Std Deviation 47.0 H, RDW Coeff of Tom 13.7, Plt Count 304, MPV 8.8, Immature Gran % (Auto) 0.900, Neut % (Auto) 67.3, Lymph % (Auto) 21.7, [place] % (Auto) 9.0, Eos % (Auto) 0.9, Baso % (Auto) 0.2, Absolute Neuts (auto) 6.5, Absolute Lymphs (auto) 2.09, Nucleated RBC % 0, Sodium 139, Potassium 3.7, Chloride 108 H, Carbon Dioxide 27.0, Anion Gap 4 L, BUN 27 H, Creatinine 0.93, Estim Creat Clear Calc 56.75, Est GFR (MDRD) Af Amer 76, Est GFR (MDRD) Non-Af 63, BUN/Creatinine Ratio 28.9 H, Glucose 140 H, Calcium 8.2 L Micro: Microbiology 11/17/23 21:15 Sputum, Expectorated/Coughed Gram Stain - Final 11/17/23 21:15 Sputum, Expectorated/Coughed Respiratory Culture - Final 11/17/23 11:53 Blood Culture (Wb) - Right Forearm Blood Culture - Preliminary No growth in 48 hours. 11/17/23 11:20 Blood Culture (Wb) - Right Forearm Blood Culture - Preliminary No growth in 48 hours. 11/18/23 00:25 Urine, Clean Catch Legionella Antigen - Final 11/18/23 00:25 Urine, Clean Catch Streptococcus pneumoniae Antigen (M - Final 11/17/23 15:31 Mucosa - Nasopharyngeal Respiratory Panel (PCR) - Final 11/17/23 11:25 Mucosa - Nasopharyngeal SARS-CoV-2, Influenza & RSV (PCR) - Final Physical Exam Narrative General: Alert, Oriented x3, Cooperative HEENT: Atraumatic, PERRLA, EOMI, Normocephalic Oral: Oral mucosa dry. No Gingival or Mucosal Lesions/ Ulcerations Neck: Supple, No JVD, Negative Carotid Bruits Chest wall/Lungs: Air entry diminished in bilateral lung bases. Expiratory phase prolonged, bilateral wheezing. Mild hypoxia and tachypnea. Cardiovascular: Sinus tachycardia, Normal S1, Normal S2, No M/G/R Abdomen: Bowel Sounds Present, Soft, Non Tender, Non-Distended : No dysuria. No renal angle tenderness. No suprapubic tenderness. Extremities: No edema, Capillary Refill Less than 3 Seconds Skin: No rashes, No breakdown Musculoskeletal: No Tenderness to Palpation of Joints or Extremities Neurological: Cranial nerves II-XII grossly intact, DTR 2+/4. No acute focal neurological deficit. Psych/Mental Status: Flat affect Assessment & Plan Assessment/Plan (1) COPD with acute exacerbation: (2) Hypoxia: PLAN: Plan Patient is a 72-year-old lady with history of COPD presented with progressive shortness of breath with associated cough and upper respiratory tract symptoms. An assessment of COPD with acute exacerbation made admitted to regular nursing floor for further management 1. COPD with acute exacerbation ? Patient has been admitted to regular nursing floor managed with systemic steroid bronchodilator treatment as well as supplemental oxygen titrated to keep saturation greater than 90 skilled ? 11/20/2023 patient remains on supplemental oxygen plan is to wean off oxygen prior to discharge. 2. Diabetes mellitus type 2 ? Uncontrolled due to concomitant use of systemic steroid. Glucose this a.m. 585. Adjusted patient insulin regimen. Also placed on Accu-Cheks before meals and at bedtime with sliding scale coverage ? 11/19/2023;Patient was transferred to a monitored bed started on insulin drip given persistently high glucose levels. Patient glucose levels were in the 700s. ? 11/20/2023 insulin drip has been weaned off 3. Fall with recent comminuted left hip fracture ?Patient underwent ORIF on 10/11/2023 was discharged to a intermediate facility will continue PT OT as tolerated 4. Class II obesity with BMI of 37.6 ? Complicating care weight loss advised 5. Dyslipidemia -Patient is on statin therapy, continued at home dose 6. Essential hypertension ? Patient blood pressure control on admission was not optimal at home medications were resumed we will continue monitoring with hydralazine return as needed for systolic blood pressure greater than 160 7. Dyslipidemia -Patient is on statin therapy, continued at home dose 8. Depression ? Patient is on Lexapro 9. Sinus tachycardia ? Thought to be reactive. 10. Hyponatremia ? Secondary to patient being on diuretic therapy specifically HCTZ will monitor with daily BMPs 11. Rheumatoid arthritis ? Patient is on methotrexate 12. Gastroparesis ? Patient is managed by GI as outpatient currently not on any prokinetic 13. Chronic congestive heart failure with preserved ejection fraction ? Patient was previously on metolazone currently off. Patient remains compensated 14 . DVT prophylaxis ? Patient is on Xarelto Time spent in the patient's overall evaluation,decision-making process, review of diagnostic data, adjustment of management, discussion with other providers, nursing nursing and ancillary staff involved in patient's care documentation, 35 Minutes
[2023-11-21 08:22] LABS: Bedside Glucose 65 mg/dL (74-106)
[2023-11-21] MEDS: guaiFENesin/D-Methorphan TAB.SR.12H 2 TABLET PO (09:14)
[2023-11-21] MEDS: Azithromycin 250 MG Tablet 500 MG PO (09:14)
[2023-11-21] MEDS: Tolterodine Tartrate 4 MG CAP.SA PO (09:15)
[2023-11-21] MEDS: hydroCHLOROthiazide 12.5mg 12.5 MG PO (09:15)
[2023-11-21] MEDS: Metoprolol(XL)Succ 100 MG Tablet PO (09:15)
[2023-11-21] MEDS: Escitalopram Oxalate 10 MG Tablet PO (09:15)
[2023-11-21] MEDS: Pantoprazole Sodium 40 MG Tablet PO (09:15)
[2023-11-21] MEDS: Aspirin E.C. 81 MG Tablet PO (09:15)
[2023-11-21] MEDS: predniSONE 20 MG Tablet 40 MG PO (09:16)
[2023-11-21] MEDS: Loratadine 10 MG Tablet PO (09:16)
[2023-11-21] MEDS: Losartan Potassium 100 MG Tablet PO (09:16)
[2023-11-21] MEDS: Fluticasone 0.05% 1 SPRAY NASAL.SRY NASAL (09:16)
[2023-11-21] MEDS: Insulin Glargine-YFGN 100 UNIT/ML Pen 50 UNIT SC (09:17)
[2023-11-21] MEDS: Insulin Lispro 100 UNIT/ML INSULN.PEN 25 UNIT SC (11:20)
[2023-11-21] MEDS: Insulin Lispro 100 UNIT/ML INSULN.PEN SC (11:21)
[2023-11-21 11:51] LABS: Bedside Glucose 196 mg/dL (74-106)
--- NOTE | 2023-11-21 12:11 | DCINST_ITS ---
Discharge Instructions Diet Discharge Diet: 1800 Calorie Control Diet Activity Discharge Activity: Return to Normal Activity Weight Bearing Status: Weight bearing as tolerated Dressing / Incision Call your doctor if you observe: Fever of 101 or Higher, Coldness, Increased Pain, Numbness or Tingling, Change in Color, Inability to urinate, Inability to have a bowel movement, Using more than 1 pad per hour, Shortness of breath, Dizziness, Fainting spells, Swelling in the ankles, Chest pain, Prolonged hiccupping, Increased palpitations (irregular heartbeat) and Calf discomfort Follow Up Care When: IN 2 WEEKS Test Results: Test results from this visit will be discussed in further detail at your follow- up appointment, if applicable. Discharge Plan Admission Admit Date/Time: 11/17/23 14:53 Primary Reason for Your Visit: COPD exacerbation Attending Provider: Jj Whitfield Primary Care Provider: Brayan Arita Consulting Providers: Jj Whitfield; Anthony Perez Instructions Additional Instructions / Restrictions: Follow-up lens blank gauger, Dr. Sophia Arce in 2 weeks Discharge Orders/Prescriptions Prescriptions: New prednisone 20 mg tablet 40 mg PO DAILY 3 Days Qty: 6 0RF guaifenesin [Mucinex] 1,200 mg tablet extended release 12hr 1,200 mg PO BID 7 Days Qty: 14 0RF Continued hydrochlorothiazide 12.5 mg capsule 12.5 mg PO DAILY gabapentin 300 mg capsule 300 mg PO QHS metoprolol succinate 100 mg tablet extended release 24 hr 100 mg PO DAILY oxybutynin chloride 10 mg tablet extended release 24hr 20 mg PO DAILY aspirin [Adult Low Dose Aspirin] 81 mg tablet,delayed release (DR/EC) 81 mg PO DAILY loratadine 10 mg tablet 10 mg PO DAILY PRN (Reason: ALLERGIES ) (DME) pen needle, diabetic [BD Ultra-Fine Tish Pen Needle] 32 gauge x 5/32 needle See Rx Instructions .ROUTE .MEDSUPPLY Qty: 100 5RF Rx Instructions: tid metformin 500 mg tablet extended release 24 hr 500 mg PO BREAKFAST Patient Comments: COUPLE OF WEEKS SINCE LAST TAKEN. PT STATES THEY RAN OUT AND THAT THEY DO NOT LIKE TAKING IT BECAUSE OF ALL THE BAD THINGS THEY HAVE HEARD ABOUT IT nitrofurantoin monohyd/m-cryst 100 mg capsule 1 cap PO BID (DME) OneTouch Verio test strips Strip See Rx Instructions .Route Qty: 150 12RF Rx Instructions: 4 times per day fluticasone propionate 1 SPRAY spray,suspension 1 spray intranasal DAILY PRN (Reason: NASAL CONGESTION ) methotrexate sodium 2.5 MG tablet 20 mg PO TEJADA Hold Instructions: Resume on 06/29/23. Hold until finished with augmentin folic acid 1 mg tablet 2 mg PO DAILY albuterol sulfate [ProAir HFA] 90 mcg/actuation Hfa Aerosol Inhaler 2 puff INHALATION Q4H PRN (Reason: SHORTNESS OF BREATH ) losartan 100 mg tablet 100 mg PO DAILY escitalopram oxalate [Lexapro] 10 mg tablet 10 mg PO DAILY PRN (Reason: DEPRESSION ) Trelegy Ellipta 100-62.5-25 mcg blister with device 1 inh INHALATION DAILY Patient Comments: PT STATES THEY WERE TOLD BY A DOCTOR TO STOP USING THIS TEMPORARILY BECAUSE THEY BELIEVE THE PT MIGHT BE ALLERGIC TO THIS INHALER. esomeprazole magnesium [Nexium] 40 mg capsule,delayed release(DR/EC) 40 mg PO DAILY atorvastatin 20 mg tablet 20 mg PO DAILY verapamil 120 mg tablet extended release 120 mg PO QHS metaxalone 800 mg tablet 800 mg PO TID PRN (Reason: MUSCLE CRAMPS) Xarelto 10 mg Tablet 10 mg PO DAILY@0600 Qty: 30 0RF Humulin R U-500 (Conc) Kwikpen 500 unit/mL (3 mL) insulin pen See Rx Instructions subcut TIDCM Qty: 10.8 5RF Rx Instructions: breakfast- 70 u, lunch 70 u, dinner 40 u subcutaneously 3 times daily with meals Discontinued fexofenadine [[place] Allergy] 180 mg tablet 180 mg PO BID Referrals / Follow Up: Brayan Arita MD [Primary Care Provider] - Within 2 Weeks Disposition Disposition (needs filled in before D/C Order can be placed): Home, Self Care
--- NOTE | 2023-11-21 12:19 | PCM.DC.SUM ---
Providers Date of Admission: 11/17/23 Date of Discharge: 11/21/23 Primary Care Physician: Dr. Brayan Arita MD Reason For Visit: COPD EXA Diagnosis Discharge Diagnosis (1) COPD with acute exacerbation: Status: Chronic Code(s): J44.1 - Chronic obstructive pulmonary disease with (acute) exacerbation (2) Hypoxia: Status: Acute Code(s): R09.02 - Hypoxemia Plan Patient is a 72-year-old lady with history of COPD presented with progressive shortness of breath with associated cough and upper respiratory tract symptoms. An assessment of COPD with acute exacerbation made admitted to regular nursing floor for further management 1. COPD with acute exacerbation ? Patient has been admitted to regular nursing floor managed with systemic steroid bronchodilator treatment as well as supplemental oxygen titrated to keep saturation greater than 90 percent. 11/20: Patient gradually weaned off oxygen.Currently 95% on room air. Home qualification oxygen ordered. 2. Diabetes mellitus type 2 ? Uncontrolled due to concomitant use of systemic steroid. Glucose this a.m. 585. Adjusted patient insulin regimen. Also placed on Accu-Cheks before meals and at bedtime with sliding scale coverage ?Patient was transferred to a monitored bed started on insulin drip given persistently high glucose levels. Patient glucose levels were in the 700s. ? 11/20/2023 insulin drip has been weaned off 11/20: Glucose is controlled most recent 196. 3 more days of prednisone and then discontinue. 3. Fall with recent comminuted left hip fracture ?Patient underwent ORIF on 10/11/2023 was discharged to a long term facility will continue PT OT as tolerated 4. Class II obesity with BMI of 37.6 ? Complicating care weight loss advised 5. Dyslipidemia -Patient is on statin therapy, continued at home dose 6. Essential hypertension ? Patient blood pressure control on admission was not optimal at home medications were resumed we will continue monitoring with hydralazine return as needed for systolic blood pressure greater than 160 7. Dyslipidemia -Patient is on statin therapy, continued at home dose 8. Depression ? Patient is on Lexapro 9. Sinus tachycardia ? Thought to be reactive. 10. Hyponatremia ? Secondary to patient being on diuretic therapy specifically HCTZ will monitor with daily BMPs 11. Rheumatoid arthritis ? Patient is on methotrexate 12. Gastroparesis ? Patient is managed by GI as outpatient currently not on any prokinetic 13. Chronic congestive heart failure with preserved ejection fraction ? Patient was previously on metolazone currently off. Patient remains compensated 14 . DVT prophylaxis ? Patient is on Xarelto Discharge medication reconciliation done. Discharge follow-up instructions completed. Discharge process discussed with the patient and all questions were answered to patient's satisfaction. Follow with PCP in 1 to 2 weeks Total time spent, exact 35 minutes on discharge meds reconciliation, examination, coordination of care with nurses and ancillary staff, review of imaging and blood test and discussion with the patient on follow-up instructions. Medications at Discharge Home Medications fluticasone propionate 50 mcg/actuation nasal spray,suspension 1 spray intranasal DAILY PRN NASAL CONGESTION 01/30/14 methotrexate sodium 2.5 mg tablet 20 mg PO TEJADA BREAST CANCER 04/16/17 albuterol sulfate 90 mcg/actuation aerosol inhaler (ProAir HFA) 2 puff inhalation Q4H PRN SHORTNESS OF BREATH 06/05/21 escitalopram oxalate 10 mg tablet (Lexapro) 10 mg PO DAILY PRN DEPRESSION 06/05/21 fluticasone fur. 100 mcg-umeclid 62.5 mcg-vilant 25 mcg inhalat.powder (Trelegy Ellipta) 1 inh inhalation DAILY SHORTNESS OF BREATH 06/05/21 folic acid 1 mg tablet 2 mg PO DAILY SUPPLEMENT 06/05/21 hydrochlorothiazide 12.5 mg capsule 12.5 mg PO DAILY BLOOD PRESSURE 06/05/21 losartan 100 mg tablet 100 mg PO DAILY BLOOD PRESSURE 06/05/21 aspirin 81 mg tablet,delayed release (Adult Low Dose Aspirin) 81 mg PO DAILY HEART HEALTH 02/05/22 gabapentin 300 mg capsule 300 mg PO QHS NEUROPATHY 02/05/22 oxybutynin chloride 10 mg tablet,extended release 24 hr 20 mg PO DAILY OVERACTIVE BLADDER 02/05/22 metoprolol succinate 100 mg tablet,extended release 24 hr 100 mg PO DAILY BLOOD PRESSURE 02/24/22 esomeprazole magnesium 40 mg capsule,delayed release (Nexium) 40 mg PO DAILY ACID REFLUX 11/26/22 loratadine 10 mg tablet 10 mg PO DAILY PRN ALLERGIES 11/26/22 metformin 500 mg tablet,extended release 24 hr 500 mg PO BREAKFAST DIABETES 11/26/22 pen needle, diabetic 32 gauge x 5/32 (BD Ultra-Fine Tish Pen Needle) #100 ea 11/26/22 atorvastatin 20 mg tablet 20 mg PO DAILY CHOLESTEROL 06/21/23 metaxalone 800 mg tablet 800 mg PO TID PRN MUSCLE CRAMPS 06/21/23 verapamil 120 mg tablet,extended release 120 mg PO QHS BLOOD PRESSURE 06/21/23 rivaroxaban 10 mg tablet (Xarelto) 10 mg PO DAILY@0600 #30 tabs 10/13/23 insulin regular hum U-500 conc 500 unit/mL(3 mL) subcut pen (Humulin R U-500 (Conc) Insulin Kwikpen) See Rx Instructions subcut TIDCM #10.8 mL 11/10/23 blood sugar diagnostic ([employer] Verio test strips) #150 ea 11/15/23 nitrofurantoin monohydrate/macrocrystals 100 mg capsule 1 cap PO BID 11/15/23 guaifenesin 1,200 mg tablet, extended release 12 hr (Mucinex) 1,200 mg PO BID 7 days #14 tabs 11/21/23 prednisone 20 mg tablet 40 mg (2 x 20 mg) PO DAILY 3 days #6 tabs 11/21/23 Physical Exam Narrative Seen and examined. Physical exam General: Alert, Oriented x3, Cooperative HEENT: Atraumatic, PERRLA, EOMI, Normocephalic Oral: Oral mucosa dry. No Gingival or Mucosal Lesions/ Ulcerations Neck: Supple, No JVD, Negative Carotid Bruits Chest wall/Lungs: Air entry diminished in bilateral lung bases. Expiratory phase prolonged. Tachypnea hypoxia and wheezing has resolved. Cardiovascular: Sinus rhythm normal S1, Normal S2, No M/G/R Abdomen: Bowel Sounds Present, Soft, Non Tender, Non-Distended : No dysuria. No renal angle tenderness. No suprapubic tenderness. Extremities: No edema, Capillary Refill Less than 3 Seconds Skin: No rashes, No breakdown Musculoskeletal: No Tenderness to Palpation of Joints or Extremities Neurological: Cranial nerves II-XII grossly intact, DTR 2+/4. No acute focal neurological deficit. Psych/Mental Status: Flat affect Weight / BMI Weight Weight: 199 lb 0.004 oz Body Mass Index (BMI) 37.5 ABG / Lab / Microbiology Data 11/21/23 03:50 11/21/23 03:50 Laboratory: Laboratory Results - last 24 hr 11/20/23 16:25: POC Glucose 175 H 11/20/23 21:31: POC Glucose 282 H 11/21/23 03:50: WBC 9.6, RBC 3.02 L, Hgb 9.2 L, Hct 28.8 L, MCV 95.4, MCH 30.5, MCHC 31.9 L, RDW Std Deviation 47.0 H, RDW Coeff of Otm 13.7, Plt Count 304, MPV 8.8, Immature Gran % (Auto) 0.900, Neut % (Auto) 67.3, Lymph % (Auto) 21.7, [place] % (Auto) 9.0, Eos % (Auto) 0.9, Baso % (Auto) 0.2, Absolute Neuts (auto) 6.5, Absolute Lymphs (auto) 2.09, Nucleated RBC % 0, Sodium 139, Potassium 3.7, Chloride 108 H, Carbon Dioxide 27.0, Anion Gap 4 L, BUN 27 H, Creatinine 0.93, Estim Creat Clear Calc 56.75, Est GFR (MDRD) Af Amer 76, Est GFR (MDRD) Non-Af 63, BUN/Creatinine Ratio 28.9 H, Glucose 140 H, Calcium 8.2 L 11/21/23 08:05: POC Glucose 65 L 11/21/23 11:18: POC Glucose 196 H Microbiology: Microbiology 11/17/23 21:15 Sputum, Expectorated/Coughed Gram Stain - Final 11/17/23 21:15 Sputum, Expectorated/Coughed Respiratory Culture - Final 11/17/23 11:53 Blood Culture (Wb) - Right Forearm Blood Culture - Preliminary No growth in 48 hours. 11/17/23 11:20 Blood Culture (Wb) - Right Forearm Blood Culture - Preliminary No growth in 48 hours. 11/18/23 00:25 Urine, Clean Catch Legionella Antigen - Final 11/18/23 00:25 Urine, Clean Catch Streptococcus pneumoniae Antigen (M - Final 11/17/23 15:31 Mucosa - Nasopharyngeal Respiratory Panel (PCR) - Final 11/17/23 11:25 Mucosa - Nasopharyngeal SARS-CoV-2, Influenza & RSV (PCR) - Final D/C Instructions Discharge Diet: 1800 Calorie Control Diet Weight Bearing Status: Weight bearing as tolerated Call your doctor if you observe: Fever of 101 or Higher, Coldness, Increased Pain, Numbness or Tingling, Change in Color, Inability to urinate, Inability to have a bowel movement, Using more than 1 pad per hour, Shortness of breath, Dizziness, Fainting spells, Swelling in the ankles, Chest pain, Prolonged hiccupping, Increased palpitations (irregular heartbeat) and Calf discomfort When: IN 2 WEEKS Meaningful Use Info Meaningful Use Diagnoses (Choose all that apply): None applicable Discharge Plan Admission Admit Date/Time: 11/17/23 14:53 Primary Reason for Your Visit: COPD exacerbation Attending Provider: Jj Whitfield Primary Care Provider: Brayan Arita Consulting Providers: Jj Whitfield; Anthony Perez Instructions Additional Instructions / Restrictions: 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 Sophia Arce in 2 weeks Discharge Orders/Prescriptions Prescriptions: New prednisone 20 mg tablet 40 mg PO DAILY 3 Days Qty: 6 0RF guaifenesin [Mucinex] 1,200 mg tablet extended release 12hr 1,200 mg PO BID 7 Days Qty: 14 0RF Continued hydrochlorothiazide 12.5 mg capsule 12.5 mg PO DAILY gabapentin 300 mg capsule 300 mg PO QHS metoprolol succinate 100 mg tablet extended release 24 hr 100 mg PO DAILY oxybutynin chloride 10 mg tablet extended release 24hr 20 mg PO DAILY aspirin [Adult Low Dose Aspirin] 81 mg tablet,delayed release (DR/EC) 81 mg PO DAILY loratadine 10 mg tablet 10 mg PO DAILY PRN (Reason: ALLERGIES ) (DME) pen needle, diabetic [BD Ultra-Fine Tish Pen Needle] 32 gauge x 5/32 needle See Rx Instructions .ROUTE .MEDSUPPLY Qty: 100 5RF Rx Instructions: tid metformin 500 mg tablet extended release 24 hr 500 mg PO BREAKFAST Patient Comments: COUPLE OF WEEKS SINCE LAST TAKEN. PT STATES THEY RAN OUT AND THAT THEY DO NOT LIKE TAKING IT BECAUSE OF ALL THE BAD THINGS THEY HAVE HEARD ABOUT IT nitrofurantoin monohyd/m-cryst 100 mg capsule 1 cap PO BID (DME) OneTouch Verio test strips Strip See Rx Instructions .Route Qty: 150 12RF Rx Instructions: 4 times per day fluticasone propionate 1 SPRAY spray,suspension 1 spray intranasal DAILY PRN (Reason: NASAL CONGESTION ) methotrexate sodium 2.5 MG tablet 20 mg PO TEJADA Hold Instructions: Resume on 06/29/23. Hold until finished with augmentin folic acid 1 mg tablet 2 mg PO DAILY albuterol sulfate [ProAir HFA] 90 mcg/actuation Hfa Aerosol Inhaler 2 puff INHALATION Q4H PRN (Reason: SHORTNESS OF BREATH ) losartan 100 mg tablet 100 mg PO DAILY escitalopram oxalate [Lexapro] 10 mg tablet 10 mg PO DAILY PRN (Reason: DEPRESSION ) Trelegy Ellipta 100-62.5-25 mcg blister with device 1 inh INHALATION DAILY Patient Comments: PT STATES THEY WERE TOLD BY A DOCTOR TO STOP USING THIS TEMPORARILY BECAUSE THEY BELIEVE THE PT MIGHT BE ALLERGIC TO THIS INHALER. esomeprazole magnesium [Nexium] 40 mg capsule,delayed release(DR/EC) 40 mg PO DAILY atorvastatin 20 mg tablet 20 mg PO DAILY verapamil 120 mg tablet extended release 120 mg PO QHS metaxalone 800 mg tablet 800 mg PO TID PRN (Reason: MUSCLE CRAMPS) Xarelto 10 mg Tablet 10 mg PO DAILY@0600 Qty: 30 0RF Humulin R U-500 (Conc) Kwikpen 500 unit/mL (3 mL) insulin pen See Rx Instructions subcut TIDCM Qty: 10.8 5RF Rx Instructions: breakfast- 70 u, lunch 70 u, dinner 40 u subcutaneously 3 times daily with meals Discontinued fexofenadine [[place]ury Allergy] 180 mg tablet 180 mg PO BID Referrals / Follow Up: Brayan Arita MD [Primary Care Provider] - Within 2 Weeks Disposition Disposition (needs filled in before D/C Order can be placed): Home, Self Care Charges/Coding Visit Charges Inpatient E&M: 89001 Disch Hosp >30min
--- NOTE | 2023-11-21 12:47 | CASEMGMT ---
Patient has order for discharge. Patient does not qualify for home oxygen. Patient to return home with resumption of HHC with [facility]. RN CM updated [facility] of discharge, resumption of care planned for tomorrow. RN CM in to discuss needs at discharge. RN CM updated patient regarding [facility] HHC resumption tomorrow. Patient denied additional needs at discharge. Patient had no further questions or concerns.
--- NOTE | 2023-11-21 15:06 | PHA.DC.MC.R ---
Pharmacy [facility] has performed discharge medication reconciliation and counseling for this patient. 1. GUAIFENESIN 1200MG PO BID X 7 DAYS 2. PREDNISONE 40MG PO DAILY X 3 DAYS The patient's discharge medication list was reviewed for discrepancies and discrepancies were resolved. The patient was counseled on the following discharge medications and changes in medications for homegoing were reviewed. The Reason for Use, instructions for use, and potential side effects were reviewed for all new medications. The patient's questions regarding all of their medications were answered. The patient was able to verbally demonstrate an understanding of their discharge medications. Medications at Discharge Home Medications fluticasone propionate 50 mcg/actuation nasal spray,suspension 1 spray intranasal DAILY PRN NASAL CONGESTION 01/30/14 methotrexate sodium 2.5 mg tablet 20 mg PO TEJADA BREAST CANCER 04/16/17 albuterol sulfate 90 mcg/actuation aerosol inhaler (ProAir HFA) 2 puff inhalation Q4H PRN SHORTNESS OF BREATH 06/05/21 escitalopram oxalate 10 mg tablet (Lexapro) 10 mg PO DAILY PRN DEPRESSION 06/05/21 fluticasone fur. 100 mcg-umeclid 62.5 mcg-vilant 25 mcg inhalat.powder (Trelegy Ellipta) 1 inh inhalation DAILY SHORTNESS OF BREATH 06/05/21 folic acid 1 mg tablet 2 mg PO DAILY SUPPLEMENT 06/05/21 hydrochlorothiazide 12.5 mg capsule 12.5 mg PO DAILY BLOOD PRESSURE 06/05/21 losartan 100 mg tablet 100 mg PO DAILY BLOOD PRESSURE 06/05/21 aspirin 81 mg tablet,delayed release (Adult Low Dose Aspirin) 81 mg PO DAILY HEART HEALTH 02/05/22 gabapentin 300 mg capsule 300 mg PO QHS NEUROPATHY 02/05/22 oxybutynin chloride 10 mg tablet,extended release 24 hr 20 mg PO DAILY OVERACTIVE BLADDER 02/05/22 metoprolol succinate 100 mg tablet,extended release 24 hr 100 mg PO DAILY BLOOD PRESSURE 02/24/22 esomeprazole magnesium 40 mg capsule,delayed release (Nexium) 40 mg PO DAILY ACID REFLUX 11/26/22 loratadine 10 mg tablet 10 mg PO DAILY PRN ALLERGIES 11/26/22 metformin 500 mg tablet,extended release 24 hr 500 mg PO BREAKFAST DIABETES 11/26/22 pen needle, diabetic 32 gauge x 32 (BD Ultra-Fine Tish Pen Needle) #100 ea 11/26/22 atorvastatin 20 mg tablet 20 mg PO DAILY CHOLESTEROL 06/21/23 metaxalone 800 mg tablet 800 mg PO TID PRN MUSCLE CRAMPS 06/21/23 verapamil 120 mg tablet,extended release 120 mg PO QHS BLOOD PRESSURE 06/21/23 rivaroxaban 10 mg tablet (Xarelto) 10 mg PO DAILY@0600 #30 tabs 10/13/23 insulin regular hum U-500 conc 500 unit/mL(3 mL) subcut pen (Humulin R U-500 (Conc) Insulin Kwikpen) See Rx Instructions subcut TIDCM #10.8 mL 11/10/23 blood sugar diagnostic ([employer] Verio test strips) #150 ea 11/15/23 nitrofurantoin monohydrate/macrocrystals 100 mg capsule 1 cap PO BID 11/15/23 guaifenesin 1,200 mg tablet, extended release 12 hr (Mucinex) 1,200 mg PO BID 7 days #14 tabs 11/21/23 prednisone 20 mg tablet 40 mg (2 x 20 mg) PO DAILY 3 days #6 tabs 11/21/23
[2023-11-21 15:39] LABS: Bedside Glucose 64 mg/dL (74-106)
== END 2023-11-21 17:01 | disposition home health service (06) | DRG 191 ==
LOC: ED 14:47 → MS3 15:45 → PCU 11-18 15:21
PROVIDERS: Internal Medicine; Admitting Provider Internal Medicine; Emergency Provider Emergency Medicine; PCP Family Medicine; Visit Provider Internal Medicine
DX: J44.1 Chronic obstructive pulmonary disease with (acute) exacerbation (principal); E87.1 Hypo-osmolality and hyponatremia; I50.32 Chronic diastolic (congestive) heart failure; K31.84 Gastroparesis; I11.0 Hypertensive heart disease with heart failure; E11.43 Type 2 diabetes mellitus with diabetic autonomic (poly)neuropathy; E11.65 Type 2 diabetes mellitus with hyperglycemia; Z79.4 Long term (current) use of insulin; M06.9 Rheumatoid arthritis, unspecified; F32.A Depression, unspecified; E78.5 Hyperlipidemia, unspecified; W19.XXXD Unspecified fall, subsequent encounter; E66.9 Obesity, unspecified; R09.02 Hypoxemia; T50.2X5A Adverse effect of carbonic-anhydrase inhibitors, benzothiadiazides and other diuretics, initial encounter; Z79.82 Long term (current) use of aspirin; Z79.01 Long term (current) use of anticoagulants; Z79.51 Long term (current) use of inhaled steroids; Z87.891 Personal history of nicotine dependence; R00.0 Tachycardia, unspecified; S72.002D Fracture of unspecified part of neck of left femur, subsequent encounter for closed fracture with routine healing; Z68.37 Body mass index [BMI] 37.0-37.9, adult
CPT/HCPCS: 36415; 36600; 71045; 71275; 80048; 80051; 82803; 82947; 82962; 83735; 83880; 84100; 84484; 85025; 87040; 87070; 87205; 87449; 87631; 87633; 93005; 94640; 94668; 97110; 97116; 97162; 97166; 97530; 97535; 99285; Q9967; A4216

== ENCOUNTER → 2023-11-28 | Outpatient (CLI) | payer MEDICARE, SELFPAY ==
[2023-11-28 15:48] LABS: Absolute Lymphocyte Count 1.84 X10^3/uL (0.83-4.51); Absolute Neutrophil Count 5.3 X10^3/uL (2.0-7.7); Basophil# 0.03 X10^3/uL; Basophil% 0.4 % (0-1); Eosinophil# 0.32 X10^3/uL; Eosinophils% 3.8 % (0-5); Hematocrit 34.3 % (37-47); Hemoglobin 10.7 g/dL (12.0-15.0); Lymphocyte # 1.84 X10^3/ul (0.83-4.51); Lymphocyte % 21.9 % (19-41); Mean Corp Hgb Conc 31.2 g/dL (32-36); Mean Corpuscular Hgb 29.8 pg (27.0-32.0); Mean Corpuscular Volume 95.5 fL (81-99); Mean Platelet Vol. 9.2 fl (6.2-12.0); Monocyte# 0.75 X10^3/uL; Monocyte% 8.9 % (0-10); NRBC Flagged by Analyzer 0 % (0-5); Neutrophil # 5.26 X10^3/uL (2.7-7.7); Neutrophil % 62.6 % (47-70); POSITIVE MORPHOLOGY YES; Platelet Count 318 K/mm3 (150-450); RBC Distribution Width CV 13.9 % (11.6-14.6); RBC Distribution Width SD 48.4 fl (35.1-43.9); Red Blood Count 3.59 M/mm3 (4.2-5.4); White Blood Count 8.4 K/mm3 (4.4-11.0)
[2023-11-28 16:16] LABS: ALB/GLOB Ratio 0.7 RATIO (0.9-2.4); AST(SGOT) 17 U/L (15-37); Alanine Aminotransfer ALT/SGPT 22 U/L (13-56); Albumin, Serum 2.8 g/dL (3.2-5.0); Alkaline Phosphatase 89 U/L (45-117); Anion Gap 5 (5-15); BUN 16 mg/dL (7-18); BUN/Creat Ratio 17.2 RATIO (10-20); Calcium,Total 8.8 mg/dL (8.5-10.1); Chloride 105 mmol/L (98-107); Creatinine, Serum 0.93 mg/dL (0.55-1.02); EST Glomerular Filtration Rate 63 mL/min (>60); Est Glom Filt Rate - Afr Amer 76 mL/min (>60); Globulin 4.1 g/dL (2.2-4.2); Glucose 71 mg/dL (74-106); Protein, Total 6.9 g/dL (6.4-8.2); Sodium Level 140 mmol/L (136-145)
[2023-11-28 16:25] LABS: Differential Indicated SCAN CRITERIA MET
[2023-11-28 16:26] LABS: Platelet Estimate ADEQUATE (ADEQ); Red Cell Morphology N CHROM NORMAL (NORM C&C); Toxic Granulation RARE
[2023-11-28 16:27] LABS: Anisocytosis 1+; Macrocytosis 1+; Ovalocyte RARE
== END | disposition home or self-care (01) ==
PROVIDERS: PCP Family Medicine; Referring Provider Internal Medicine Rheumatology; Visit Provider Internal Medicine Rheumatology
DX: M06.4 Inflammatory polyarthropathy (principal); M17.0 Bilateral primary osteoarthritis of knee; M18.0 Bilateral primary osteoarthritis of first carpometacarpal joints; G56.03 Carpal tunnel syndrome, bilateral upper limbs; Z79.899 Other long term (current) drug therapy
CPT/HCPCS: 36415; 80053; 85025

== ENCOUNTER 2023-12-27 20:53 | Inpatient (IN) | payer MEDICARE, SELFPAY ==
[2023-12-27 20:54] VITALS: BP 163/65; PULSE 72; RESP 16; TEMP 36.1; O2SAT 97; BMI 36.6
--- NOTE | 2023-12-27 21:19 | US_ITS ---
STUDY: ABDOMINAL ULTRASOUND - RIGHT UPPER QUADRANT REASON FOR VISIT: Female, 73 years old PAIN TECHNIQUE: Ultrasound evaluation of the right upper quadrant was performed with real-time and static gold-scale imaging. TECHNICAL QUALITY: Adequate. COMPARISON: None. FINDINGS: Liver: The liver measures 15.8 cm. There is normal echogenicity of the liver. The bile ducts are within normal limits. There is hepatic color flow. The direction of portal flow is hepatopetal. There is no demonstrated mass lesion. Gallbladder: Normal distended gallbladder. The gallbladder wall measures 2 mm. There is a negative sonographic Quinones''s sign. There is no pericholecystic fluid. There are multiple echogenic structures within the gallbladder, consistent with multiple gallstones. Common Bile Duct (C.B.D.): The common bile duct measures 4 mm. Pancreas: Normal size of the head, body and tail of the pancreas. There is normal echogenicity of the pancreas. There is no demonstrated pancreatic mass or cyst. Right Kidney: Normal size of the right kidney. The right kidney measures 11.0 cm. Normal renal cortex. The right cortex measures 1.4 cm. There is no demonstrated renal mass or cyst. There is no right hydronephrosis. US/Gallbladder IMPRESSION: Cholelithiasis. Electronically Signed: Saravanan Rust MD at 22:28 EDT ,
--- NOTE | 2023-12-27 21:20 | EDS_ITS ---
HPI HPI - GI History of Present Illness Chief Complaint: Abd Pain Detail of Chief Complaint: Abdominal pain Narrative Narrative: Patient presents with abdominal pain that started yesterday. Describes the pain is upper abdomen radiating to her back. Patient also complains of itching all over. She denies dysuria urgency or frequency. Patient does state that there is little bit of an odor to her urine and she gets frequent UTIs. Patient has known gallstones and still has her gallbladder. She has had an appendectomy and hysterectomy. Patient's vomited x 2 since yesterday. She denies diarrhea. She denies blood in her stool or black tarry stool. She had low-grade fevers at home up to 99.6. [facility] Medical History Allergic rhinitis Anxiety Arthritis Asthma Back problem Breast cancer Breast lump Calcium deficiency Cancer Cardiology follow-up encounter Carpal tunnel syndrome Cataract Chronic bronchitis Chronic cough Closed left hip fracture COPD (chronic obstructive pulmonary disease) Diabetes mellitus, type II Dietary restriction Diverticulosis Easy bruising Essential hypertension Former smoker Gall stone Gastrointestinal problem GERD (gastroesophageal reflux disease) History of cervical cancer History of Clostridium difficile infection History of edema History of gastrostomy tube placement History of Holter monitoring History of stress test History of vaginal delivery Hives IBS (irritable bowel syndrome) Inflammatory polyarthritis Injury of head and neck Internal hemorrhoids Leg cramps Loss of consciousness MSSA (methicillin susceptible Staphylococcus aureus) pneumonia Neuropathy OAB (overactive bladder) Obesity Osteoarthritis Osteoporosis Pancreatitis Recurrent infections Restless legs Rhabdomyolysis (04/2017) Seasonal allergies Shortness of breath on exertion Sleep apnea Urinary incontinence UTI (urinary tract infection) Vision problems Wears dentures Wears glasses Home Medications ?Medication ?Instructions ?Recorded ?Last Taken ?Type fluticasone propionate 50 1 spray intranasal DAILY PRN NASAL 01/30/14 06/20/23 History mcg/actuation nasal CONGESTION spray,suspension methotrexate sodium 2.5 mg tablet 20 mg PO TEJADA BREAST CANCER 04/16/17 06/19/23 History albuterol sulfate 90 mcg/actuation 2 puff inhalation Q4H PRN 06/05/21 11/17/23 History aerosol inhaler (ProAir HFA) SHORTNESS OF BREATH escitalopram oxalate 10 mg tablet 10 mg PO DAILY PRN DEPRESSION 06/05/21 11/16/23 09:00 History (Lexapro) fluticasone fur. 100 mcg-umeclid 1 inh inhalation DAILY SHORTNESS 06/05/21 1 Week Ago History 62.5 mcg-vilant 25 mcg OF BREATH ~05/29/21 inhalat.powder (Trelegy Ellipta) folic acid 1 mg tablet 2 mg PO DAILY SUPPLEMENT 06/05/21 06/20/23 History hydrochlorothiazide 12.5 mg capsule 12.5 mg PO DAILY BLOOD PRESSURE 06/05/21 11/16/23 09:00 History losartan 100 mg tablet 100 mg PO DAILY BLOOD PRESSURE 06/05/21 11/16/23 09:00 History aspirin 81 mg tablet,delayed 81 mg PO DAILY HEART HEALTH 02/05/22 11/16/23 09:00 History release (Adult Low Dose Aspirin) gabapentin 300 mg capsule 300 mg PO QHS NEUROPATHY 02/05/22 11/16/23 21:00 History oxybutynin chloride 10 mg 20 mg PO DAILY OVERACTIVE BLADDER 02/05/22 11/16/23 09:00 History tablet,extended release 24 hr metoprolol succinate 100 mg 100 mg PO DAILY BLOOD PRESSURE 02/24/22 11/17/23 History tablet,extended release 24 hr esomeprazole magnesium 40 mg 40 mg PO DAILY ACID REFLUX 11/26/22 11/16/23 06:00 History capsule,delayed release (Nexium) loratadine 10 mg tablet 10 mg PO DAILY PRN ALLERGIES 11/26/22 Unknown History metformin 500 mg tablet,extended 500 mg PO BREAKFAST DIABETES 11/26/22 Unknown History release 24 hr pen needle, diabetic 32 gauge x #100 ea 11/26/22 Unknown Rx 32 (BD Ultra-Fine Tish Pen Needle) atorvastatin 20 mg tablet 20 mg PO DAILY CHOLESTEROL 06/21/23 11/16/23 21:00 History metaxalone 800 mg tablet 800 mg PO TID PRN MUSCLE CRAMPS 06/21/23 Unknown History verapamil 120 mg tablet,extended 120 mg PO QHS BLOOD PRESSURE 06/21/23 11/16/23 21:00 History release rivaroxaban 10 mg tablet (Xarelto) 10 mg PO DAILY@0600 #30 tabs 10/13/23 11/16/23 12:00 Rx insulin regular hum U-500 conc 500 See Rx Instructions subcut TIDCM 11/10/23 Unknown Rx unit/mL(3 mL) subcut pen (Humulin #10.8 mL R U-500 (Conc) Insulin Kwikpen) blood sugar diagnostic (OneTouch #150 ea 11/15/23 Unknown Rx Verio test strips) nitrofurantoin 1 cap PO BID 11/15/23 Unknown History monohydrate/macrocrystals 100 mg capsule guaifenesin 1,200 mg tablet, 1,200 mg PO BID 7 days #14 tabs 11/21/23 Unknown Rx extended release 12 hr (Mucinex) prednisone 20 mg tablet 40 mg (2 x 20 mg) PO DAILY 3 days 11/21/23 Unknown Rx #6 tabs Allergy/AdvReac Type Severity Reaction Status Date / Time JESENIA Inhibitors Allergy Intermediate Cough Verified 12/27/23 20:58 adhesive tape Allergy Intermediate blisters Verified 12/27/23 20:58 dulaglutide (From Trulicity) Allergy Intermediate Gastropares Verified 12/27/23 20:58 is chondroitin sulfate A (From Allergy Rash Verified 12/27/23 20:58 DuoVisc Visco Elastic) hyaluronic acid (From Allergy Rash Verified 12/27/23 20:58 DuoVisc Visco Elastic) NSAIDS (Non-Steroidal Allergy Other Verified 12/27/23 20:58 Anti-Inflamma Family History Other Alcohol abuse Anxiety Arthritis Asthma defect COPD (chronic obstructive pulmonary disease) Cancer Diabetes High cholesterol Hypertension Seizures Surgical History History of appendectomy History of colonoscopy History of hysterectomy History of left mastectomy History of nasal cauterization Social History Smoking Status: Former smoker alcohol intake: current alcohol intake frequency: 0-2 drinks per day substance use type: does not use what type of physical activity do you participate in: none ROS ROS ED Review of Systems ROS Unobtainable: other Constitutional Constitutional ED: Reports lethargy; Denies chills, fever(s), sweats or weight loss Eyes Eyes: Denies blurry vision, change in vision or diplopia ENT ENT ED: Denies rhinorrhea or sore throat Cardiovascular Cardiovascular: Denies chest pain, orthopnea or racing heartbeat Respiratory/Chest Respiratory/Chest: Denies cough, dyspnea, dyspnea on exertion, orthopnea or sputum Gastrointestinal Gastrointestinal: Reports abdominal pain, nausea and vomiting; Denies diarrhea Genitourinary Genitourinary ED: Denies dysuria, hematuria or urinary frequency Musculoskeletal Musculoskeletal: Denies arthralgias, back pain, myalgias or neck pain Integumentary Denies abscess, Abrasions or rash Neurologic Neurologic: Denies headache(s) or weakness Psychiatric Psychiatric: Denies anxiety, depression or suicidal thoughts Endocrine Endocrinology: Denies polydipsia, polyphagia or polyuria Hematologic/Lymphatic Hematologic/Lymphatic: Denies easy bleeding, easy bruising or lymphadenopathy Allergic/Immunologic Allergic/Immunologic ED: Denies mouth swelling, tongue swelling or urticaria EXAM Physical Exam Const Vital Signs: 12/27/23 20:54 12/27/23 22:54 12/28/23 00:00 Temperature 97 F L Temperature Source Temporal Pulse Rate 72 74 74 Respiratory Rate 16 18 17 Blood Pressure 163/65 H 157/61 H 144/57 H Blood Pressure Mean 97 93 86 Pulse Ox 97 99 95 Oxygen Delivery Method Room Air Room Air Room Air Positive well nourished and well developed General Appearance ED: well developed and NAD HEENT Reports TM's clear and moist mucous membranes normocephalic and atraumatic; Negative for trauma or tenderness Tympanic Membrane ED: Yes TM's clear Eyes PERRL and EOMs intact bilaterally General Eye ED: Negative for pale conjunctiva or scleral icterus Neck no lymphadenopathy, supple and no JVD General: Negative for tenderness Chest Wall inspection of chest normal and palpation of chest normal Chest: Negative for tenderness Resp normal respiratory effort and clear to auscultation bilaterally Effort and Inspection: Negative for respiratory distress or pain with movement Auscultation: Negative for rhonchi, wheezes or diminished lung sounds Cardio regular rate, regular rhythm, S1 normal heart sound, S2 normal heart sound and no murmurs Peripheral Pulses: pulses 2+ throughout GI normal to inspection, nondistended, normoactive bowel sounds, soft to palpation, non-distended and no masses GI Narrative: Tenderness palpation over the right upper quadrant with a positive Quinones sign. Patient also has some tenderness in the epigastric region with some guarding. There is no rebound, rigidity, or pineal signs. No mass palpated. Back/Spine no CVA tenderness and no thoracic nor lumbar tenderness Extremity normal to inspection General Extremety ED: Negative for edema General Extremity: Negative for edema Neuro oriented x3, CN's II-XII intact bilaterally, no sensory deficits noted and gait normal Sensorium / Orientation: awake, alert, oriented to person, oriented to place and oriented to time Motor Exam: strength 5/5 throughout and strength abnormal Psych mental status grossly normal Skin no rashes or lesions noted and no wounds MDM MDM MDM Narrative Medical decision making narrative: Patient presents with abdominal pain since yesterday and vomiting x 2. Pain upper abdomen radiating to her back. In the differential would be cholecystitis versus pancreatitis versus bowel obstruction or bowel perforation versus kidney stone or other acute intra-abdominal process. IV line established. CBC with differential obtained showed a white count of 7.7 with hemoglobin 12 and platelet count of 318. Chemistries unremarkable. BUN 11 creatinine 1.27. LFTs showed an elevated bilirubin at 2.6 with an AST of 425 and an ALT of 420 with alk phos of 210. Urinalysis normal. Obtain gallbladder ultrasound that showed gallstones otherwise no signs of cholecystitis. Obtain a CT scan of the abdomen pelvis to evaluate further which showed choledocholithiasis. Discussed case w ith general surgeon on-call who recommended admission to medicine and referral to GI for ERCP followed by cholecystectomy. Case discussed with Dr. Reveles who will evaluate patient for admission. While in the department her blood glucose dropped to 33 and she had did receive dextrose. Did start patient on D5 half- normal. Patient admitted stable condition. Lab Data Attestation: I reviewed the patient's lab results. Labs: Laboratory Results - last 24 hr 12/27/23 12/27/23 12/27/23 21:10 22:23 23:58 WBC 7.7 RBC 4.05 L Hgb 12.0 Hct 38.3 MCV 94.6 MCH 29.6 MCHC 31.3 L RDW Std Deviation 47.3 H RDW Coeff of Tom 13.6 Plt Count 318 MPV 9.7 Immature Gran % (Auto) 0.500 Neut % (Auto) 64.7 Lymph % (Auto) 23.1 Cataño % (Auto) 7.4 Eos % (Auto) 3.4 Baso % (Auto) 0.9 Absolute Neuts (auto) 5.0 Absolute Lymphs (auto) 1.78 Nucleated RBC % 0 Sodium 137 Potassium 3.8 Chloride 105 Carbon Dioxide 28.0 Anion Gap 4 L BUN 11 Creatinine 1.27 H Estim Creat Clear Calc 40.99 Est GFR (MDRD) Af Amer 53 L Est GFR (MDRD) Non-Af 44 L BUN/Creatinine Ratio 8.7 L Glucose 180 H Calcium 9.1 Total Bilirubin 2.60 H AST 425 H ALT 420 H Alkaline Phosphatase 210 H Total Protein 8.2 Albumin 3.0 L Globulin 5.2 H Albumin/Globulin Ratio 0.6 L Lipase 39 Urine Color Yellow Urine Clarity Clear Urine pH 6.5 Ur Specific Colbert 1.010 Urine Protein 15 H Urine Glucose (UA) 1000 H Urine Ketones 5 H Urine Occult Blood 10 H Urine Nitrite Negative Urine Bilirubin 1 H Urine Urobilinogen 1 H Ur Leukocyte Esterase Negative Urine RBC 0 SEEN Urine WBC 0 SEEN Ur Squamous Epith Cells 0-5 SEEN Urine Bacteria 0 SEEN Urine Mucus 0 SEEN POC Glucose 33 L* Radiography Diagnostic Testing: Clinical Impression(s) from Imaging Studies Gallbladder Ultrasound 12/27/23 21:19 IMPRESSION: Cholelithiasis. Electronically Signed: Saravanan Rust MD at 22:28 EDT , Abdomen/Pelvis CT 12/27/23 22:58 IMPRESSION: Cholelithiasis with choledocholithiasis. N.B. : The above Results were Read Back by Saravanan Rust MD to Ginny Stratton DO, and understanding confirmed on 12/28/2023 00:07:14 (ET). Electronically Signed: Saravanan Rust MD at 0:10 EDT , ADDENDUM: 12/28/23 0017 IMPRESSION: Cholelithiasis with choledocholithiasis. N.B. : The above Results were Read Back by Saravanan Rust MD to Ginny Stratton DO, and understanding confirmed on 12/28/2023 00:07:14 (ET). Electronically Signed: Saravanan Rust MD at 0:10 EDT , Discharge Plan Triage Chief Complaint: Abd Pain ED Provider: Ginny Stratton Dx/Rx/DC Orders Clinical Impression: Abdominal pain, Cholelithiasis, Choledocholithiasis, Hypoglycemia Prescriptions: No Action hydrochlorothiazide 12.5 mg capsule 12.5 mg PO DAILY gabapentin 300 mg capsule 300 mg PO QHS metoprolol succinate 100 mg tablet extended release 24 hr 100 mg PO DAILY oxybutynin chloride 10 mg tablet extended release 24hr 20 mg PO DAILY aspirin [Adult Low Dose Aspirin] 81 mg tablet,delayed release (DR/EC) 81 mg PO DAILY loratadine 10 mg tablet 10 mg PO DAILY PRN (Reason: ALLERGIES ) (DME) pen needle, diabetic [BD Ultra-Fine Tish Pen Needle] 32 gauge x 5/32 needle See Rx Instructions .ROUTE .MEDSUPPLY Qty: 100 5RF Rx Instructions: tid metformin 500 mg tablet extended release 24 hr 500 mg PO BREAKFAST Patient Comments: COUPLE OF WEEKS SINCE LAST TAKEN. PT STATES THEY RAN OUT AND THAT THEY DO NOT LIKE TAKING IT BECAUSE OF ALL THE BAD THINGS THEY HAVE HEARD ABOUT IT nitrofurantoin monohyd/m-cryst 100 mg capsule 1 cap PO BID (DME) OneTouch Verio test strips Strip See Rx Instructions .Route Qty: 150 12RF Rx Instructions: 4 times per day fluticasone propionate 1 SPRAY spray,suspension 1 spray intranasal DAILY PRN (Reason: NASAL CONGESTION ) methotrexate sodium 2.5 MG tablet 20 mg PO TEJADA folic acid 1 mg tablet 2 mg PO DAILY albuterol sulfate [ProAir HFA] 90 mcg/actuation Hfa Aerosol Inhaler 2 puff INHALATION Q4H PRN (Reason: SHORTNESS OF BREATH ) losartan 100 mg tablet 100 mg PO DAILY escitalopram oxalate [Lexapro] 10 mg tablet 10 mg PO DAILY PRN (Reason: DEPRESSION ) Trelegy Ellipta 100-62.5-25 mcg blister with device 1 inh INHALATION DAILY Patient Comments: PT STATES THEY WERE TOLD BY A DOCTOR TO STOP USING THIS TEMPORARILY BECAUSE THEY BELIEVE THE PT MIGHT BE ALLERGIC TO THIS INHALER. esomeprazole magnesium [Nexium] 40 mg capsule,delayed release(DR/EC) 40 mg PO DAILY atorvastatin 20 mg tablet 20 mg PO DAILY verapamil 120 mg tablet extended release 120 mg PO QHS metaxalone 800 mg tablet 800 mg PO TID PRN (Reason: MUSCLE CRAMPS) Xarelto 10 mg Tablet 10 mg PO DAILY@0600 Qty: 30 0RF prednisone 20 mg tablet 40 mg PO DAILY 3 Days Qty: 6 0RF guaifenesin [Mucinex] 1,200 mg tablet extended release 12hr 1,200 mg PO BID 7 Days Qty: 14 0RF Humulin R U-500 (Conc) Kwikpen 500 unit/mL (3 mL) insulin pen See Rx Instructions subcut TIDCM Qty: 10.8 5RF Rx Instructions: breakfast- 70 u, lunch 70 u, dinner 40 u subcutaneously 3 times daily with meals Primary Care Provider: Brayan Arita Referrals: Brayan Arita MD [Primary Care Provider] - Print Language: Tajik Disposition Disposition: Acute Care Hospital [facility] [place] [facility]
[2023-12-27 21:43] LABS: Absolute Lymphocyte Count 1.78 X10^3/uL (0.83-4.51); Basophil# 0.07 X10^3/uL; Basophil% 0.9 % (0-1); Eosinophil# 0.26 X10^3/uL; Eosinophils% 3.4 % (0-5); Hematocrit 38.3 % (37-47); Lymphocyte # 1.78 X10^3/ul (0.83-4.51); Lymphocyte % 23.1 % (19-41); Mean Corp Hgb Conc 31.3 g/dL (32-36); Mean Corpuscular Hgb 29.6 pg (27.0-32.0); Mean Corpuscular Volume 94.6 fL (81-99); Mean Platelet Vol. 9.7 fl (6.2-12.0); Monocyte# 0.57 X10^3/uL; Monocyte% 7.4 % (0-10); NRBC Flagged by Analyzer 0 % (0-5); Neutrophil # 4.97 X10^3/uL (2.7-7.7); Neutrophil % 64.7 % (47-70); Platelet Count 318 K/mm3 (150-450); RBC Distribution Width CV 13.6 % (11.6-14.6); RBC Distribution Width SD 47.3 fl (35.1-43.9); Red Blood Count 4.05 M/mm3 (4.2-5.4); White Blood Count 7.7 K/mm3 (4.4-11.0)
[2023-12-27 22:01] LABS: ALB/GLOB Ratio 0.6 RATIO (0.9-2.4); AST(SGOT) 425 U/L (15-37); Alanine Aminotransfer ALT/SGPT 420 U/L (13-56); Alkaline Phosphatase 210 U/L (45-117); Anion Gap 4 (5-15); BUN 11 mg/dL (7-18); BUN/Creat Ratio 8.7 RATIO (10-20); Calcium,Total 9.1 mg/dL (8.5-10.1); Chloride 105 mmol/L (98-107); Creatinine, Serum 1.27 mg/dL (0.55-1.02); EST Glomerular Filtration Rate 44 mL/min (>60); Est Glom Filt Rate - Afr Amer 53 mL/min (>60); Estimated Creatinine Clearance 40.99 ml/min; Globulin 5.2 g/dL (2.2-4.2); Glucose 180 mg/dL (74-106); Lipase 39 U/L (13-75); Potassium 3.8 mmol/L (3.5-5.1); Protein, Total 8.2 g/dL (6.4-8.2); Sodium Level 137 mmol/L (136-145)
[2023-12-27] MEDS: 0.9% Normal Saline (1000mL) 1,000 ML 125 ML IV (22:09)
[2023-12-27 22:29] LABS: Bacteria 0 SEEN /hpf (None Seen); Mucous, Urine 0 SEEN /hpf (<or=2+); Red Blood Cells-Urine 0 SEEN /hpf (0-5); White Blood Cells 0 SEEN /hpf (0-5)
[2023-12-27 22:30] LABS: Color, Urine Yellow (Yellow); Glucose, Dipstick 1000 mg/dl (Normal); Ketone-Dipstick 5 mg/dl (Negative); Leukocyte Esterase-Dipstick Negative /ul (Negative); Nitrite-Dipstick Negative (Negative); Occult Blood-Urine 10 /ul (Negative); Protein-Dipstick 15 mg/dl (Negative); Urine Clarity Clear (Clear); Urine Urobilinogen 1 mg/dl (Normal); Urine pH 6.5 (5.0 - 8.0)
[2023-12-27 22:31] LABS: Urine Bilirubin Dipstick 1 mg/dL (Negative)
[2023-12-27 22:44] LABS: Squamous Epithelial Cells - UA 0-5 SEEN /hpf (5-10)
[2023-12-27 22:54] VITALS: BP 157/61; PULSE 74; RESP 18; O2SAT 99
--- NOTE | 2023-12-27 22:58 | CT_ITS ---
STUDY: CT ABDOMEN AND PELVIS WITH CONTRAST REASON FOR EXAM: Female, 73 years old. abdominal pain RADIATION DOSAGE (If Supplied By Facility): CTDIvol = ( 17.93 ) mGy, DLP = ( 1187.14 ) mGycm TECHNIQUE: Transaxial images were obtained from the dome of the diaphragm to the symphysis pubis without oral contrast. IV 100mL Isovue-370 was administered. Sagittal and coronal images were reconstructed. Individualized dose optimization techniques were used for this CT. COMPARISON: None. FINDINGS: The visualized lung bases are unremarkable. Cardiomegaly. Small pericardial effusion. Normal liver. There are multiple gallstones. Stones are densely calcified and multiple stones are seen in the distal common bile duct consistent with choledocholithiasis. Normal spleen. Normal pancreas. There is a small, circumscribed, smooth, low attenuation left adrenal mass, consistent with an adrenal adenoma. Normal right adrenal gland. Normal right kidney. Normal left kidney. Normal visualized stomach. Small diverticulum second portion the duodenum. Normal colon. There is non-visualization of the appendix. Normal abdominal aorta. Normal inferior vena cava. Normal retroperitoneum. Normal urinary bladder. Normal abdominal wall. Normal osseous structures. CT/Abdomen/Pelvis W IV Cont ONLY IMPRESSION: Cholelithiasis with choledocholithiasis. N.B. : The above Results were Read Back by Saravanan Rust MD to Gniny Stratton DO, and understanding confirmed on 12/28/2023 00:07:14 (ET). Electronically Signed: Saravanan Rust MD at 0:10 EDT ,
[2023-12-28] VITALS (16 sets, daily range): BP systolic 144–165; BP diastolic 57–93; PULSE 61–80; RESP 16–18; TEMP 36.1–37; O2SAT 93–99; BMI 34.5
[2023-12-28] MEDS: Dextrose 50%-Water 25 GM/50 ML DISP.SYRIN IV (00:02)
[2023-12-28 00:16] LABS: Bedside Glucose 33 mg/dL (74-106)
[2023-12-28 00:30] LABS: Bedside Glucose 181 mg/dL (74-106)
[2023-12-28] MEDS: Dext 5%-0.45% NS 1,000 ML 125 ML IV (00:35)
[2023-12-28 01:06] LABS: Bedside Glucose 111 mg/dL (74-106)
--- NOTE | 2023-12-28 01:28 | PCM.HP.STD ---
[facility] - General [facility] Date of Service: 12/28/23 Chief Complaint: Abdominal pain [facility] Narrative MENDEZ KEITH, is a 73 F who presents with 2 days of abdominal pain. Unable to tolerate diet, when she eats she throws up. Patient is an insulin-dependent diabetic. Did have low blood sugar when she presented here and did receive half amp of D50 and then was started on D5. Patient had a CAT scan here that showed cholelithiasis as well as choledocholithiasis. Dr. Skelton, general surgery, was contacted and felt that the patient would require an ERCP and then he would later evaluate for laparoscopic cholecystectomy. Currently, the patient is feeling okay at this time. Still does have some abdominal discomfort but slightly better at this time. [facility] Medical History Closed left hip fracture Osteoporosis Former smoker Sleep apnea Asthma COPD (chronic obstructive pulmonary disease) Essential hypertension History of gastrostomy tube placement Wears glasses Wears dentures History of Clostridium difficile infection Cancer Anxiety Easy bruising Injury of head and neck Restless legs Loss of consciousness Dietary restriction Shortness of breath on exertion Chronic cough History of stress test History of edema Leg cramps History of Holter monitoring Cardiology follow-up encounter History of vaginal delivery Urinary incontinence Internal hemorrhoids History of cervical cancer Diverticulosis Obesity Vision problems Pancreatitis Osteoarthritis Neuropathy IBS (irritable bowel syndrome) Recurrent infections Hives Calcium deficiency Gastrointestinal problem Gall stone Chronic bronchitis Carpal tunnel syndrome Cataract Breast cancer Breast lump UTI (urinary tract infection) Back problem Arthritis Seasonal allergies GERD (gastroesophageal reflux disease) OAB (overactive bladder) Rhabdomyolysis (04/2017) MSSA (methicillin susceptible Staphylococcus aureus) pneumonia Allergic rhinitis Diabetes mellitus, type II Inflammatory polyarthritis Home Medications ?Medication ?Instructions ?Recorded ?Last Taken ?Type fluticasone propionate 50 1 spray intranasal DAILY PRN NASAL 01/30/14 06/20/23 History mcg/actuation nasal CONGESTION spray,suspension methotrexate sodium 2.5 mg tablet 20 mg PO TEJADA BREAST CANCER 04/16/17 06/19/23 History albuterol sulfate 90 mcg/actuation 2 puff inhalation Q4H PRN 06/05/21 11/17/23 History aerosol inhaler (ProAir HFA) SHORTNESS OF BREATH escitalopram oxalate 10 mg tablet 10 mg PO DAILY PRN DEPRESSION 06/05/21 11/16/23 09:00 History (Lexapro) folic acid 1 mg tablet 2 mg PO DAILY SUPPLEMENT 06/05/21 06/20/23 History hydrochlorothiazide 12.5 mg capsule 12.5 mg PO DAILY BLOOD PRESSURE 06/05/21 11/16/23 09:00 History losartan 100 mg tablet 100 mg PO DAILY BLOOD PRESSURE 06/05/21 11/16/23 09:00 History aspirin 81 mg tablet,delayed 81 mg PO DAILY HEART HEALTH 02/05/22 11/16/23 09:00 History release (Adult Low Dose Aspirin) gabapentin 300 mg capsule 300 mg PO QHS NEUROPATHY 02/05/22 11/16/23 21:00 History oxybutynin chloride 10 mg 20 mg PO DAILY OVERACTIVE BLADDER 02/05/22 11/16/23 09:00 History tablet,extended release 24 hr metoprolol succinate 100 mg 100 mg PO DAILY BLOOD PRESSURE 02/24/22 11/17/23 History tablet,extended release 24 hr esomeprazole magnesium 40 mg 40 mg PO DAILY ACID REFLUX 11/26/22 11/16/23 06:00 History capsule,delayed release (Nexium) pen needle, diabetic 32 gauge x #100 ea 11/26/22 Unknown Rx (BD Ultra-Fine Tish Pen Needle) atorvastatin 20 mg tablet 20 mg PO DAILY CHOLESTEROL 06/21/23 11/16/23 21:00 History metaxalone 800 mg tablet 800 mg PO TID PRN MUSCLE CRAMPS 06/21/23 Unknown History verapamil 120 mg tablet,extended 120 mg PO QHS BLOOD PRESSURE 06/21/23 11/16/23 21:00 History release blood sugar diagnostic (OneTouch #150 ea 11/15/23 Unknown Rx Verio test strips) insulin regular hum U-500 conc 500 See Rx Instructions subcut TIDCM 12/28/23 Unknown History unit/mL(3 mL) subcut pen (Humulin R U-500 (Conc) Insulin Kwikpen) Allergy/AdvReac Type Severity Reaction Status Date / Time JESENIA Inhibitors Allergy Intermediate Cough Verified 12/27/23 20:58 adhesive tape Allergy Intermediate blisters Verified 12/27/23 20:58 [facility] Allergy Intermediate Gastropares Verified 12/27/23 20:58 is chondroitin sulfate A (From Allergy Rash Verified 12/27/23 20:58 DuoVisc Visco Elastic) hyaluronic acid (From Allergy Rash Verified 12/27/23 20:58 DuoVisc Visco Elastic) NSAIDS (Non-Steroidal Allergy Other Verified 12/27/23 20:58 Anti-Inflamma Family History Other Alcohol abuse Anxiety Arthritis Asthma defect COPD (chronic obstructive pulmonary disease) Cancer Diabetes High cholesterol Hypertension Seizures Surgical History History of nasal cauterization History of colonoscopy History of appendectomy History of left mastectomy History of hysterectomy Social History Smoking Status: Former smoker alcohol intake: current alcohol intake frequency: 0-2 drinks per day substance use type: does not use what type of physical activity do you participate in: none ROS ROS Narrative All review of systems were negative except as mentioned above in the history of present illness and the other review of systems. Vital Signs Vital Signs Vital Signs: 12/27/23 20:54 12/27/23 22:54 12/28/23 00:00 Temperature 36.1 C L Temperature Source Temporal Pulse Rate 72 74 74 Respiratory Rate 16 18 17 Blood Pressure 163/65 H 157/61 H 144/57 H Blood Pressure Mean 97 93 86 Pulse Ox 97 99 95 Oxygen Delivery Method Room Air Room Air Room Air 12/28/23 01:06 12/28/23 01:12 Temperature 36.4 C L 37.0 C Temperature Source Temporal Pulse Rate 61 75 Respiratory Rate 18 Blood Pressure 154/62 H 154/60 H Blood Pressure Mean 92 91 Pulse Ox 99 95 Oxygen Delivery Method Room Air Weight Weight: 88.054 kg Body Mass Index (BMI) 36.6 Physical Exam Const alert and no apparent distress HEENT normocephalic Eyes Eyes Narrative: No icterus. Glasses Neck no lymphadenopathy Neck Narrative: No thyromegaly Resp normal respiratory effort, no retractions, no use of accessory muscles and clear to auscultation bilaterally Cardio regular rate, regular rhythm, S1 normal heart sound and S2 normal heart sound GI normal to inspection, nondistended, normoactive bowel sounds, soft to palpation and non-tender GI Narrative: Slight tenderness in the right upper quadrant. Negative Quinones sign. Extremity normal to inspection Neuro Sensorium / Orientation: awake and alert Psych affect normal Results Lab / Micro Data Attestation: I reviewed the patient's lab results. 12/27/23 21:10 12/27/23 21:10 Labs: Laboratory Results - last 24 hr 12/27/23 21:10: WBC 7.7, RBC 4.05 L, Hgb 12.0, Hct 38.3, MCV 94.6, MCH 29.6, MCHC 31.3 L, RDW Std Deviation 47.3 H, RDW Coeff of Tom 13.6, Plt Count 318, MPV 9.7, Immature Gran % (Auto) 0.500, Neut % (Auto) 64.7, Lymph % (Auto) 23.1, [place] % (Auto) 7.4, Eos % (Auto) 3.4, Baso % (Auto) 0.9, Absolute Neuts (auto) 5.0, Absolute Lymphs (auto) 1.78, Nucleated RBC % 0, Sodium 137, Potassium 3.8, Chloride 105, Carbon Dioxide 28.0, Anion Gap 4 L, BUN 11, Creatinine 1.27 H, Estim Creat Clear Calc 40.99, Est GFR (MDRD) Af Amer 53 L, Est GFR (MDRD) Non-Af 44 L, BUN/Creatinine Ratio 8.7 L, Glucose 180 H, Calcium 9.1, Total Bilirubin 2.60 H, AST 425 H, ALT 420 H, Alkaline Phosphatase 210 H, Total Protein 8.2, Albumin 3.0 L, Globulin 5.2 H, Albumin/Globulin Ratio 0.6 L, Lipase 39 12/27/23 22:23: Urine Color Yellow, Urine Clarity Clear, Urine pH 6.5, Ur Specific [place] 1.010, Urine Protein 15 H, Urine Glucose (UA) 1000 H, Urine Ketones 5 H, Urine Occult Blood 10 H, Urine Nitrite Negative, Urine Bilirubin 1 H, Urine Urobilinogen 1 H, Ur Leukocyte Esterase Negative, Urine RBC 0 SEEN, Urine WBC 0 SEEN, Ur Squamous Epith Cells 0-5 SEEN, Urine Bacteria 0 SEEN, Urine Mucus 0 SEEN 12/27/23 23:58: POC Glucose 33 L* 12/28/23 00:12: POC Glucose 181 H 12/28/23 00:48: POC Glucose 111 H Imaging Radiology Impression Gallbladder Ultrasound 12/27/23 21:19 IMPRESSION: Cholelithiasis. Electronically Signed: Saravanan Rust MD at 22:28 EDT Reading Location ID and State: [id number] / [employer] , Service support , Abdomen/Pelvis CT 12/27/23 22:58 IMPRESSION: Cholelithiasis with choledocholithiasis. N.B. : The above Results were Read Back by Saravanan Rust MD to Ginny Stratton DO, and understanding confirmed on 12/28/2023 00:07:14 (ET). Electronically Signed: Saravanan Rust MD at 0:10 EDT Reading Location ID and State: [place] / [employer] , Service support , ADDENDUM: 12/28/23 0017 IMPRESSION: Cholelithiasis with choledocholithiasis. N.B. : The above Results were Read Back by Saravanan Rust MD to Ginny Stratton DO, and understanding confirmed on 12/28/2023 00:07:14 (ET). Electronically Signed: Saravanan Rust MD at 0:10 EDT Reading Location ID and State: [id number] / [employer] , Service support , Assessment & Plan Assessment/Plan (1) Choledocholithiasis: (2) Cholelithiasis: (3) Hypoglycemia: PLAN: Plan Choledocholithiasis supportive management at this time. IV fluids, antiemetics, pain control. GI to evaluate for ERCP Says she does have cholelithiasis without cholecystitis at this time, will consult general surgery to evaluate the patient for potential laparoscopic cholecystectomy No evidence of any cholecystitis based on imaging nor clinically. I will hold off on antibiotics at this time. Clear liquid diet Transaminitis Secondary to above Monitor Hypoglycemia and a type II diabetic Patient normally takes U-500. Did have blood sugar in the 30s. Did receive half amp of D50 and currently blood sugars are better. I will discontinue the D5 infusion that she is currently on and monitor her. Could potentially resume the U-500 if her blood sugars remained stable but at a reduced dose while she is on a diminished diet for the meantime. Chronic conditions GERD: Continue PPI Depression: Continue with escitalopram Hypertension: Continue with HCTZ, losartan, verapamil, metoprolol succinate. Overactive bladder: Continue with oxybutynin. VTE prophylaxis: Moderate risk. SCDs for now. Holding off on chemical prophylaxis in light of potential procedures. CODE STATUS: Addressed with the patient. Patient wishes to be full code Discussed with the patient's daughter at bedside. Charges/Coding Visit Charges Inpatient E&M: 66038 Init Hosp L3
[2023-12-28 01:57] LABS: Bedside Glucose 81 mg/dL (74-106)
[2023-12-28 03:20] LABS: Bedside Glucose 98 mg/dL (74-106)
[2023-12-28] MEDS: DiphenhydrAMINE 25 MG Capsule PO ×3 (04:50→22:43)
--- NOTE | 2023-12-28 06:00 | EKG12_ITS ---
Test Reason : PRE-OP Blood Pressure : / mmHG Vent. 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
[2023-12-28 06:44] LABS: Bedside Glucose 154 mg/dL (74-106)
--- NOTE | 2023-12-28 07:00 | EX.PCM.CON.G ---
HPI Consult Data Date of Consult: 12/27/23 HPI Narrative Reason for Consultation: Choledocholithiasis HPI Narrative: MENDEZ KEITH, is a 73 F who presents with 2 days of abdominal pain. Unable to tolerate diet, when she eats she throws up. Patient is an insulin-dependent diabetic. She does have a previous history of severe gastroparesis, stage III chronic kidney disease from diabetes, obesity, history of breast cancer, depression and COPD.Did have low blood sugar when she presented here and did receive half amp of D50 and then was started on D5. Patient had a CAT scan here that showed cholelithiasis as well as choledocholithiasis. Dr. Skelton, general surgery, was contacted and felt that the patient would require an ERCP and then he would later evaluate for laparoscopic cholecystectomy. Currently, the patient is feeling okay at this time. Still does have some abdominal discomfort but slightly better at this time. 12/27/23 21:10: WBC 7.7, RBC 4.05 L, Hgb 12.0, Hct 38.3, MCV 94.6, MCH 29.6, MCHC 31.3 L, RDW Std Deviation 47.3 H, RDW Coeff of Tom 13.6, Plt Count 318, MPV 9.7, Immature Gran % (Auto) 0.500, Neut % (Auto) 64.7, Lymph % (Auto) 23.1, [place] % (Auto) 7.4, Eos % (Auto) 3.4, Baso % (Auto) 0.9, Absolute Neuts (auto) 5.0, Absolute Lymphs (auto) 1.78, Nucleated RBC % 0, Sodium 137, Potassium 3.8, Chloride 105, Carbon Dioxide 28.0, Anion Gap 4 L, BUN 11, Creatinine 1.27 H, Estim Creat Clear Calc 40.99, Est GFR (MDRD) Af Amer 53 L, Est GFR (MDRD) Non-Af 44 L, BUN/Creatinine Ratio 8.7 L, Glucose 180 H, Calcium 9.1, Total Bilirubin 2.60 H, AST 425 H, ALT 420 H, Alkaline Phosphatase 210 H, Total Protein 8.2, Albumin 3.0 L, Globulin 5.2 H, Albumin/Globulin Ratio 0.6 L, Lipase 39 PFSH Medical History Closed left hip fracture Osteoporosis Former smoker Sleep apnea Asthma COPD (chronic obstructive pulmonary disease) Essential hypertension History of gastrostomy tube placement Wears glasses Wears dentures History of Clostridium difficile infection Cancer Anxiety Easy bruising Injury of head and neck Restless legs Loss of consciousness Dietary restriction Shortness of breath on exertion Chronic cough History of stress test History of edema Leg cramps History of Holter monitoring Cardiology follow-up encounter History of vaginal delivery Urinary incontinence Internal hemorrhoids History of cervical cancer Diverticulosis Obesity Vision problems Pancreatitis Osteoarthritis Neuropathy IBS (irritable bowel syndrome) Recurrent infections Hives Calcium deficiency Gastrointestinal problem Gall stone Chronic bronchitis Carpal tunnel syndrome Cataract Breast cancer Breast lump UTI (urinary tract infection) Back problem Arthritis Seasonal allergies GERD (gastroesophageal reflux disease) OAB (overactive bladder) Rhabdomyolysis (04/2017) MSSA (methicillin susceptible Staphylococcus aureus) pneumonia Allergic rhinitis Diabetes mellitus, type II Inflammatory polyarthritis Home Medications ?Medication ?Instructions ?Recorded ?Last Taken ?Type fluticasone propionate 50 1 spray intranasal DAILY PRN NASAL 01/30/14 06/20/23 History mcg/actuation nasal CONGESTION spray,suspension methotrexate sodium 2.5 mg tablet 20 mg PO TEJADA BREAST CANCER 04/16/17 06/19/23 History albuterol sulfate 90 mcg/actuation 2 puff inhalation Q4H PRN 06/05/21 11/17/23 History aerosol inhaler (ProAir HFA) SHORTNESS OF BREATH escitalopram oxalate 10 mg tablet 10 mg PO DAILY PRN DEPRESSION 06/05/21 12/27/23 13:00 History (Lexapro) folic acid 1 mg tablet 2 mg PO DAILY SUPPLEMENT 06/05/21 12/27/23 13:00 History hydrochlorothiazide 12.5 mg capsule 12.5 mg PO DAILY BLOOD PRESSURE 06/05/21 12/27/23 13:00 History losartan 100 mg tablet 100 mg PO DAILY BLOOD PRESSURE 06/05/21 12/27/23 13:00 History aspirin 81 mg tablet,delayed 81 mg PO DAILY HEART HEALTH 02/05/22 12/27/23 13:00 History release (Adult Low Dose Aspirin) gabapentin 300 mg capsule 300 mg PO QHS NEUROPATHY 02/05/22 12/26/23 21:00 History oxybutynin chloride 10 mg 20 mg PO DAILY OVERACTIVE BLADDER 02/05/22 12/27/23 13:00 History tablet,extended release 24 hr metoprolol succinate 100 mg 100 mg PO DAILY BLOOD PRESSURE 02/24/22 12/27/23 13:00 History tablet,extended release 24 hr esomeprazole magnesium 40 mg 40 mg PO DAILY ACID REFLUX 11/26/22 12/27/23 13:00 History capsule,delayed release (Nexium) pen needle, diabetic 32 gauge x #100 ea 11/26/22 Unknown Rx 32 (BD Ultra-Fine Tish Pen Needle) atorvastatin 20 mg tablet 20 mg PO DAILY CHOLESTEROL 06/21/23 12/27/23 13:00 History metaxalone 800 mg tablet 800 mg PO TID PRN MUSCLE CRAMPS 06/21/23 Unknown History verapamil 120 mg tablet,extended 120 mg PO QHS BLOOD PRESSURE 06/21/23 12/26/23 21:00 History release blood sugar diagnostic (OneTouch #150 ea 11/15/23 Unknown Rx Verio test strips) insulin regular hum U-500 conc 500 See Rx Instructions subcut TIDCM 12/28/23 12/27/23 17:30 History unit/mL(3 mL) subcut pen (Humulin diabetis R U-500 (Conc) Insulin Kwikpen) Allergy/AdvReac Type Severity Reaction Status Date / Time JESENIA Inhibitors Allergy Intermediate Cough Verified 12/27/23 20:58 adhesive tape Allergy Intermediate blisters Verified 12/27/23 20:58 dulaglutide (From Trulicity) Allergy Intermediate Gastropares Verified 12/27/23 20:58 is chondroitin sulfate A (From Allergy Rash Verified 12/27/23 20:58 DuoVisc Visco Elastic) hyaluronic acid (From Allergy Rash Verified 12/27/23 20:58 DuoVisc Visco Elastic) NSAIDS (Non-Steroidal Allergy Other Verified 12/27/23 20:58 Anti-Inflamma Family History Other Alcohol abuse Anxiety Arthritis Asthma defect COPD (chronic obstructive pulmonary disease) Cancer Diabetes High cholesterol Hypertension Seizures Surgical History History of nasal cauterization History of colonoscopy History of appendectomy History of left mastectomy History of hysterectomy Social History Smoking Status: Former smoker alcohol intake: current alcohol intake frequency: 0-2 drinks per day substance use type: does not use what type of physical activity do you participate in: none ROS ROS Narrative All review of systems were negative except as mentioned above in the history of present illness and the other review of systems. Physical Exam Const alert and no apparent distress HEENT normocephalic Eyes Eyes Narrative: No icterus. Glasses Neck no lymphadenopathy Neck Narrative: No thyromegaly Resp normal respiratory effort, no retractions, no use of accessory muscles and clear to auscultation bilaterally Cardio regular rate, regular rhythm, S1 normal heart sound and S2 normal heart sound GI normal to inspection, nondistended, normoactive bowel sounds, soft to palpation and non-tender GI Narrative: Slight tenderness in the right upper quadrant. Negative Quinones sign. Extremity normal to inspection Neuro Sensorium / Orientation: awake and alert Psych affect normal Lab / Micro Data 12/28/23 07:18 12/28/23 07:18 Labs: Laboratory Results - last 24 hr 12/27/23 21:10: WBC 7.7, RBC 4.05 L, Hgb 12.0, Hct 38.3, MCV 94.6, MCH 29.6, MCHC 31.3 L, RDW Std Deviation 47.3 H, RDW Coeff of Tom 13.6, Plt Count 318, MPV 9.7, Immature Gran % (Auto) 0.500, Neut % (Auto) 64.7, Lymph % (Auto) 23.1, [place] % (Auto) 7.4, Eos % (Auto) 3.4, Baso % (Auto) 0.9, Absolute Neuts (auto) 5.0, Absolute Lymphs (auto) 1.78, Nucleated RBC % 0, Sodium 137, Potassium 3.8, Chloride 105, Carbon Dioxide 28.0, Anion Gap 4 L, BUN 11, Creatinine 1.27 H, Estim Creat Clear Calc 40.99, Est GFR (MDRD) Af Amer 53 L, Est GFR (MDRD) Non-Af 44 L, BUN/Creatinine Ratio 8.7 L, Glucose 180 H, Calcium 9.1, Total Bilirubin 2.60 H, AST 425 H, ALT 420 H, Alkaline Phosphatase 210 H, Total Protein 8.2, Albumin 3.0 L, Globulin 5.2 H, Albumin/Globulin Ratio 0.6 L, Lipase 39 12/27/23 22:23: Urine Color Yellow, Urine Clarity Clear, Urine pH 6.5, Ur Specific [place] 1.010, Urine Protein 15 H, Urine Glucose (UA) 1000 H, Urine Ketones 5 H, Urine Occult Blood 10 H, Urine Nitrite Negative, Urine Bilirubin 1 H, Urine Urobilinogen 1 H, Ur Leukocyte Esterase Negative, Urine RBC 0 SEEN, Urine WBC 0 SEEN, Ur Squamous Epith Cells 0-5 SEEN, Urine Bacteria 0 SEEN, Urine Mucus 0 SEEN 12/27/23 23:58: POC Glucose 33 L* 12/28/23 00:12: POC Glucose 181 H 12/28/23 00:48: POC Glucose 111 H 12/28/23 01:40: POC Glucose 81 12/28/23 03:00: POC Glucose 98 12/28/23 06:19: POC Glucose 154 H 12/28/23 07:18: WBC 6.1, RBC 3.49 L, Hgb 10.5 L, Hct 32.6 L, MCV 93.4, MCH 30.1, MCHC 32.2, RDW Std Deviation 46.5 H, RDW Coeff of Tom 13.7, Plt Count 238, MPV 9.3, Immature Gran % (Auto) 0.500, Neut % (Auto) 58.0, Lymph % (Auto) 28.4, [place] % (Auto) 8.3, Eos % (Auto) 4.0, Baso % (Auto) 0.8, Absolute Neuts (auto) 3.5, Absolute Lymphs (auto) 1.72, Nucleated RBC % 0, Sodium 137, Potassium 3.4 L, Chloride 106, Carbon Dioxide 26.0, Anion Gap 5, BUN 7, Creatinine 0.85, Estim Creat Clear Calc 59.30, Est GFR (MDRD) Af Amer 84, Est GFR (MDRD) Non-Af 70, BUN/Creatinine Ratio 8.2 L, Glucose 176 H, Hemoglobin A1c 7.5 H, Calcium 8.5, Total Bilirubin 3.00 H, AST 314 H, ALT 331 H, Alkaline Phosphatase 173 H, Total Protein 6.7, Albumin 2.5 L, Globulin 4.2, Albumin/Globulin Ratio 0.6 L 12/28/23 10:56: POC Glucose 188 H Imaging Radiology Impression Gallbladder Ultrasound 12/27/23 21:19 IMPRESSION: Cholelithiasis. Electronically Signed: Saravanan Rust MD at 22:28 EDT Reading Location ID and State: [id number] / [employer] , Service support , Abdomen/Pelvis CT 12/27/23 22:58 IMPRESSION: Cholelithiasis with choledocholithiasis. N.B. : The above Results were Read Back by Saravanan Rust MD to Ginny Stratton DO, and understanding confirmed on 12/28/2023 00:07:14 (ET). Electronically Signed: Saravanan Rust MD at 0:10 EDT Reading Location ID and State: [id number] / [employer] , Service support , ADDENDUM: 12/28/23 0017 IMPRESSION: Cholelithiasis with choledocholithiasis. N.B. : The above Results were Read Back by Sarvaanan Rust MD to Ginny Stratton DO, and understanding confirmed on 12/28/2023 00:07:14 (ET). Electronically Signed: Saravanan Rust MD at 0:10 EDT Reading Location ID and State: [id number] / [employer] , Service support , Assessment & Plan Assessment/Plan (1) Choledocholithiasis: (2) Cholelithiasis: (3) Hypoglycemia: PLAN: Plan Choledocholithiasis supportive management at this time. IV fluids, antiemetics, pain control. She will undergo ERCP. She was explained alternatives, risk, benefits include not withstanding bleeding, infection, sepsis, perforation, need for emergent urgent . She have an ASA of 3. Says she does have cholelithiasis without cholecystitis at this time. Dr. Mckenna from general surgery is on consultation for laparoscopic cholecystectomy. No evidence of any cholecystitis based on imaging nor clinically.No antibiotics as per primary team. Clear liquid diet Transaminitis Likely secondary to obstruction possibly in the setting of chronic liver disease from [place] Monitor Charges/Coding Visit Charges Inpatient E&M: 59564 Init Hosp L3
[2023-12-28 07:37] LABS: Absolute Lymphocyte Count 1.72 X10^3/uL (0.83-4.51); Absolute Neutrophil Count 3.5 X10^3/uL (2.0-7.7); Basophil# 0.05 X10^3/uL; Basophil% 0.8 % (0-1); Eosinophil# 0.24 X10^3/uL; Hematocrit 32.6 % (37-47); Hemoglobin 10.5 g/dL (12.0-15.0); Lymphocyte # 1.72 X10^3/ul (0.83-4.51); Lymphocyte % 28.4 % (19-41); Mean Corp Hgb Conc 32.2 g/dL (32-36); Mean Corpuscular Hgb 30.1 pg (27.0-32.0); Mean Corpuscular Volume 93.4 fL (81-99); Mean Platelet Vol. 9.3 fl (6.2-12.0); Monocyte% 8.3 % (0-10); NRBC Flagged by Analyzer 0 % (0-5); Neutrophil # 3.52 X10^3/uL (2.7-7.7); Platelet Count 238 K/mm3 (150-450); RBC Distribution Width CV 13.7 % (11.6-14.6); RBC Distribution Width SD 46.5 fl (35.1-43.9); Red Blood Count 3.49 M/mm3 (4.2-5.4); White Blood Count 6.1 K/mm3 (4.4-11.0)
[2023-12-28] MEDS: Metoprolol(XL)Succ 100 MG Tablet PO (07:58)
[2023-12-28] MEDS: 0.9% Normal Saline (1000mL) 1,000 ML 125 ML IV ×2 (07:58→17:50)
[2023-12-28] MEDS: Losartan Potassium 100 MG Tablet PO (07:59)
[2023-12-28] MEDS: Escitalopram Oxalate 10 MG Tablet PO (07:59)
--- NOTE | 2023-12-28 08:10 | EX.PCM.CON.S ---
Assessment & Plan Assessment/Plan (1) Choledocholithiasis: PLAN: Patient is a 73-year-old female admitted overnight with signs and symptoms consistent with diagnosis of choledocholithiasis. Indeed this was confirmed on patient's CT imaging of the abdomen pelvis. Consult is pending with GI but they have been notified and there are tentative plans for ERCP. Management of choledocholithiasis was discussed with patient at bedside and I recommended proceeding with cholecystectomy following ERCP to mitigate her risk for recurrence. Patient has a number of risk factors related to history of COPD and obstructive sleep apnea in particular. Yet, she has not required oxygen recently and appears to be at a stable baseline. Will thus plan for laparoscopic cholecystectomy with intraoperative cholangiogram and work to sync schedules with gastroenterology to limit patient's need for anesthesia. For the interim recommend patient be made n.p.o. and begin empiric IV antibiotic therapy with enteric coverage. Chino Skelton MD General Surgery Endocrine Surgery Pager: [facility] [address] [place] [address], [facility], [address] [place] [address] Office: [phone] HPI Consult Data Date of Consult: 12/28/23 HPI Narrative Reason for Consultation: Choledocholithiasis HPI Narrative: MENDEZ KEITH, is a 73 F who presented to [facility] with complaints of upper abdominal pain and diffuse itching that began the night prior to presentation. She shares there was some associated nausea but was still able to eat beef tips and noodles last evening prior to her arrival to the hospital. She denies any experience of discomfort like this previously yet acknowledges that she has been aware of a diagnosis of gallstones for many years. Patient's ER workup was notable for CBC that showed normal white blood cell count but CMP showed elevation of LFTs and bilirubin. Gallbladder ultrasound was normal apart from finding of cholelithiasis but CT imaging of the abdomen pelvis showed choledocholithiasis with stones impacted at the ampulla Vater. Patient's past surgical history includes remote history of laparoscopic appendectomy, hysterectomy, and PEG tube placement by Dr. Diandra clark 7 years ago after patient was found unconscious and had some immediate swallowing difficulty. She confirms that this was removed without difficulty and she no longer has eating difficulties. Patient is now retired?having worked up until 2 years ago. She confirms that she has remained relatively active and denies any progressive shortness of breath or any recent requirement for home oxygen therapy. [facility] Medical History Closed left hip fracture Osteoporosis Former smoker Sleep apnea Asthma COPD (chronic obstructive pulmonary disease) Essential hypertension History of gastrostomy tube placement Wears glasses Wears dentures History of Clostridium difficile infection Cancer Anxiety Easy bruising Injury of head and neck Restless legs Loss of consciousness Dietary restriction Shortness of breath on exertion Chronic cough History of stress test History of edema Leg cramps History of Holter monitoring Cardiology follow-up encounter History of vaginal delivery Urinary incontinence Internal hemorrhoids History of cervical cancer Diverticulosis Obesity Vision problems Pancreatitis Osteoarthritis Neuropathy IBS (irritable bowel syndrome) Recurrent infections Hives Calcium deficiency Gastrointestinal problem Gall stone Chronic bronchitis Carpal tunnel syndrome Cataract Breast cancer Breast lump UTI (urinary tract infection) Back problem Arthritis Seasonal allergies GERD (gastroesophageal reflux disease) OAB (overactive bladder) Rhabdomyolysis (04/2017) MSSA (methicillin susceptible Staphylococcus aureus) pneumonia Allergic rhinitis Diabetes mellitus, type II Inflammatory polyarthritis Home Medications ?Medication ?Instructions ?Recorded ?Last Taken ?Type fluticasone propionate 50 1 spray intranasal DAILY PRN NASAL 01/30/14 06/20/23 History mcg/actuation nasal CONGESTION spray,suspension methotrexate sodium 2.5 mg tablet 20 mg PO TEJADA BREAST CANCER 04/16/17 06/19/23 History albuterol sulfate 90 mcg/actuation 2 puff inhalation Q4H PRN 06/05/21 11/17/23 History aerosol inhaler (ProAir HFA) SHORTNESS OF BREATH escitalopram oxalate 10 mg tablet 10 mg PO DAILY PRN DEPRESSION 06/05/21 12/27/23 13:00 History (Lexapro) folic acid 1 mg tablet 2 mg PO DAILY SUPPLEMENT 06/05/21 12/27/23 13:00 History hydrochlorothiazide 12.5 mg capsule 12.5 mg PO DAILY BLOOD PRESSURE 06/05/21 12/27/23 13:00 History losartan 100 mg tablet 100 mg PO DAILY BLOOD PRESSURE 06/05/21 12/27/23 13:00 History aspirin 81 mg tablet,delayed 81 mg PO DAILY HEART HEALTH 02/05/22 12/27/23 13:00 History release (Adult Low Dose Aspirin) gabapentin 300 mg capsule 300 mg PO QHS NEUROPATHY 02/05/22 12/26/23 21:00 History oxybutynin chloride 10 mg 20 mg PO DAILY OVERACTIVE BLADDER 02/05/22 12/27/23 13:00 History tablet,extended release 24 hr metoprolol succinate 100 mg 100 mg PO DAILY BLOOD PRESSURE 02/24/22 12/27/23 13:00 History tablet,extended release 24 hr esomeprazole magnesium 40 mg 40 mg PO DAILY ACID REFLUX 11/26/22 12/27/23 13:00 History capsule,delayed release (Nexium) pen needle, diabetic 32 gauge x #100 ea 11/26/22 Unknown Rx (BD Ultra-Fine Tish Pen Needle) atorvastatin 20 mg tablet 20 mg PO DAILY CHOLESTEROL 06/21/23 12/27/23 13:00 History metaxalone 800 mg tablet 800 mg PO TID PRN MUSCLE CRAMPS 06/21/23 Unknown History verapamil 120 mg tablet,extended 120 mg PO QHS BLOOD PRESSURE 06/21/23 12/26/23 21:00 History release blood sugar diagnostic (OneTouch #150 ea 11/15/23 Unknown Rx Verio test strips) insulin regular hum U-500 conc 500 See Rx Instructions subcut TIDCM 12/28/23 12/27/23 17:30 History unit/mL(3 mL) subcut pen (Humulin diabetis R U-500 (Conc) Insulin Kwikpen) Allergy/AdvReac Type Severity Reaction Status Date / Time JESENIA Inhibitors Allergy Intermediate Cough Verified 12/27/23 20:58 adhesive tape Allergy Intermediate blisters Verified 12/27/23 20:58 dulaglutide (From Trulicity) Allergy Intermediate Gastropares Verified 12/27/23 20:58 is chondroitin sulfate A (From Allergy Rash Verified 12/27/23 20:58 DuoVisc Visco Elastic) hyaluronic acid (From Allergy Rash Verified 12/27/23 20:58 DuoVisc Visco Elastic) NSAIDS (Non-Steroidal Allergy Other Verified 12/27/23 20:58 Anti-Inflamma Family History Other Alcohol abuse Anxiety Arthritis Asthma defect COPD (chronic obstructive pulmonary disease) Cancer Diabetes High cholesterol Hypertension Seizures Surgical History History of nasal cauterization History of colonoscopy History of appendectomy History of left mastectomy History of hysterectomy Social History Smoking Status: Former smoker alcohol intake: current alcohol intake frequency: 0-2 drinks per day substance use type: does not use what type of physical activity do you participate in: none Physical Exam Const alert, oriented x3 and no apparent distress Nutritional Appearance: overweight Resp normal respiratory effort GI GI Narrative: Scar present in left upper quadrant consistent with prior PEG tube. No visible herniation. Nondistended, soft, mild tenderness to palpation right upper quadrant with negative Quinones sign. Lab / Micro Data 12/28/23 07:18 12/28/23 07:18 Labs: Laboratory Results - last 24 hr 12/27/23 21:10: WBC 7.7, RBC 4.05 L, Hgb 12.0, Hct 38.3, MCV 94.6, MCH 29.6, MCHC 31.3 L, RDW Std Deviation 47.3 H, RDW Coeff of Tom 13.6, Plt Count 318, MPV 9.7, Immature Gran % (Auto) 0.500, Neut % (Auto) 64.7, Lymph % (Auto) 23.1, [place] % (Auto) 7.4, Eos % (Auto) 3.4, Baso % (Auto) 0.9, Absolute Neuts (auto) 5.0, Absolute Lymphs (auto) 1.78, Nucleated RBC % 0, Sodium 137, Potassium 3.8, Chloride 105, Carbon Dioxide 28.0, Anion Gap 4 L, BUN 11, Creatinine 1.27 H, Estim Creat Clear Calc 40.99, Est GFR (MDRD) Af Amer 53 L, Est GFR (MDRD) Non-Af 44 L, BUN/Creatinine Ratio 8.7 L, Glucose 180 H, Calcium 9.1, Total Bilirubin 2.60 H, AST 425 H, ALT 420 H, Alkaline Phosphatase 210 H, Total Protein 8.2, Albumin 3.0 L, Globulin 5.2 H, Albumin/Globulin Ratio 0.6 L, Lipase 39 12/27/23 22:23: Urine Color Yellow, Urine Clarity Clear, Urine pH 6.5, Ur Specific [place] 1.010, Urine Protein 15 H, Urine Glucose (UA) 1000 H, Urine Ketones 5 H, Urine Occult Blood 10 H, Urine Nitrite Negative, Urine Bilirubin 1 H, Urine Urobilinogen 1 H, Ur Leukocyte Esterase Negative, Urine RBC 0 SEEN, Urine WBC 0 SEEN, Ur Squamous Epith Cells 0-5 SEEN, Urine Bacteria 0 SEEN, Urine Mucus 0 SEEN 12/27/23 23:58: POC Glucose 33 L* 12/28/23 00:12: POC Glucose 181 H 12/28/23 00:48: POC Glucose 111 H 12/28/23 01:40: POC Glucose 81 12/28/23 03:00: POC Glucose 98 12/28/23 06:19: POC Glucose 154 H 12/28/23 07:18: WBC 6.1, RBC 3.49 L, Hgb 10.5 L, Hct 32.6 L, MCV 93.4, MCH 30.1, MCHC 32.2, RDW Std Deviation 46.5 H, RDW Coeff of Tom 13.7, Plt Count 238, MPV 9.3, Immature Gran % (Auto) 0.500, Neut % (Auto) 58.0, Lymph % (Auto) 28.4, [place] % (Auto) 8.3, Eos % (Auto) 4.0, Baso % (Auto) 0.8, Absolute Neuts (auto) 3.5, Absolute Lymphs (auto) 1.72, Nucleated RBC % 0 Imaging Radiology Impression Gallbladder Ultrasound 12/27/23 21:19 IMPRESSION: Cholelithiasis. Electronically Signed: Saravanan Rust MD at 22:28 EDT , Abdomen/Pelvis CT 12/27/23 22:58 IMPRESSION: Cholelithiasis with choledocholithiasis. N.B. : The above Results were Read Back by Saravanan Rust MD to Ginny Stratton DO, and understanding confirmed on 12/28/2023 00:07:14 (ET). Electronically Signed: Saravanan Rust MD at 0:10 EDT , ADDENDUM: 12/28/23 0017 IMPRESSION: Cholelithiasis with choledocholithiasis. N.B. : The above Results were Read Back by Saravanan Rust MD to Ginny Stratton DO, and understanding confirmed on 12/28/2023 00:07:14 (ET). Electronically Signed: Saravanan Rust MD at 0:10 EDT , Charges/Coding Visit Charges Inpatient E&M: 32875 Init Hosp L2
[2023-12-28 08:15] LABS: ALB/GLOB Ratio 0.6 RATIO (0.9-2.4); AST(SGOT) 314 U/L (15-37); Alanine Aminotransfer ALT/SGPT 331 U/L (13-56); Albumin, Serum 2.5 g/dL (3.2-5.0); Alkaline Phosphatase 173 U/L (45-117); Anion Gap 5 (5-15); BUN 7 mg/dL (7-18); BUN/Creat Ratio 8.2 RATIO (10-20); Calcium,Total 8.5 mg/dL (8.5-10.1); Chloride 106 mmol/L (98-107); Creatinine, Serum 0.85 mg/dL (0.55-1.02); EST Glomerular Filtration Rate 70 mL/min (>60); Est Glom Filt Rate - Afr Amer 84 mL/min (>60); Globulin 4.2 g/dL (2.2-4.2); Glucose 176 mg/dL (74-106); Potassium 3.4 mmol/L (3.5-5.1); Protein, Total 6.7 g/dL (6.4-8.2); Sodium Level 137 mmol/L (136-145)
[2023-12-28 08:16] LABS: Hemoglobin A1c 7.5 % (3.8-5.6)
[2023-12-28] MEDS: Piperacil/Tazobactam 3.375 GM in 0.9% Normal Saline (50mL MB+) 50 ML IV ×3 (09:53→21:54)
--- NOTE | 2023-12-28 11:03 | PN.HOSP_ITS ---
Reason for Visit Reason for Visit: Diagnoses Hypoglycemia, unspecified (12/28/23) Calculus of gallbladder without cholecystitis without obstruction (12/28/23) Calculus of bile duct without cholangitis or cholecystitis without obstruction (12/28/23) Objective Data Objective Data Vital Signs: Vital Signs Temp Pulse Resp BP Pulse Ox O2 Del Method 98.3 F 80 18 156/63 H 96 Room Air 12/28/23 07:55 12/28/23 07:58 12/28/23 07:55 12/28/23 07:55 12/28/23 07:55 12/28/23 08:00 Oxygen Delivery Method Room Air Weight: 182 lb 15.739 oz Body Mass Index (BMI) 34.5 Intake & Output: Intake and Output for Last 24 Hours 12/26/23 12/27/23 12/28/23 23:59 23:59 23:59 Intake Total 1310.41 / 1310.41 Balance 1310.41 / 1310.41 Lab / Micro Data 12/28/23 07:18 12/28/23 07:18 Labs: Laboratory Results - last 24 hr 12/27/23 21:10: WBC 7.7, RBC 4.05 L, Hgb 12.0, Hct 38.3, MCV 94.6, MCH 29.6, M CHC 31.3 L, RDW Std Deviation 47.3 H, RDW Coeff of Tom 13.6, Plt Count 318, MPV 9.7, Immature Gran % (Auto) 0.500, Neut % (Auto) 64.7, Lymph % (Auto) 23.1, [place] % (Auto) 7.4, Eos % (Auto) 3.4, Baso % (Auto) 0.9, Absolute Neuts (auto) 5.0, Absolute Lymphs (auto) 1.78, Nucleated RBC % 0, Sodium 137, Potassium 3.8, Chloride 105, Carbon Dioxide 28.0, Anion Gap 4 L, BUN 11, Creatinine 1.27 H, Estim Creat Clear Calc 40.99, Est GFR (MDRD) Af Amer 53 L, Est GFR (MDRD) Non-Af 44 L, BUN/Creatinine Ratio 8.7 L, Glucose 180 H, Calcium 9.1, Total Bilirubin 2.60 H, AST 425 H, ALT 420 H, Alkaline Phosphatase 210 H, Total Protein 8.2, A lbumin 3.0 L, Globulin 5.2 H, Albumin/Globulin Ratio 0.6 L, Lipase 39 12/27/23 22:23: Urine Color Yellow, Urine Clarity Clear, Urine pH 6.5, Ur Specific [place] 1.010, Urine Protein 15 H, Urine Glucose (UA) 1000 H, Urine Ketones 5 H, Urine Occult Blood 10 H, Urine Nitrite Negative, Urine Bilirubin 1 H, Urine Urobilinogen 1 H, Ur Leukocyte Esterase Negative, Urine RBC 0 SEEN, Urine WBC 0 SEEN, Ur Squamous Epith Cells 0-5 SEEN, Urine Bacteria 0 SEEN, Urine Mucus 0 SEEN 12/27/23 23:58: POC Glucose 33 L* 12/28/23 00:12: POC Glucose 181 H 12/28/23 00:48: POC Glucose 111 H 12/28/23 01:40: POC Glucose 81 12/28/23 03:00: POC Glucose 98 12/28/23 06:19: POC Glucose 154 H 12/28/23 07:18: WBC 6.1, RBC 3.49 L, Hgb 10.5 L, Hct 32.6 L, MCV 93.4, MCH 30.1, MCHC 32.2, RDW Std Deviation 46.5 H, RDW Coeff of Tom 13.7, Plt Count 238, MPV 9.3, Immature Gran % (Auto) 0.500, Neut % (Auto) 58.0, Lymph % (Auto) 28.4, [place] % (Auto) 8.3, Eos % (Auto) 4.0, Baso % (Auto) 0.8, Absolute Neuts (auto) 3.5, Absolute Lymphs (auto) 1.72, Nucleated RBC % 0, Sodium 137, Potassium 3.4 L, Chloride 106, Carbon Dioxide 26.0, Anion Gap 5, BUN 7, Creatinine 0.85, Estim Creat Clear Calc 59.30, Est GFR (MDRD) Af Amer 84, Est GFR (MDRD) Non-Af 70, B UN/Creatinine Ratio 8.2 L, Glucose 176 H, Hemoglobin A1c 7.5 H, Calcium 8.5, T otal Bilirubin 3.00 H, AST 314 H, ALT 331 H, Alkaline Phosphatase 173 H, Total Protein 6.7, Albumin 2.5 L, Globulin 4.2, Albumin/Globulin Ratio 0.6 L Radiography Diagnostic Testing: Radiology Impression Gallbladder Ultrasound 12/27/23 21:19 IMPRESSION: Cholelithiasis. Electronically Signed: Saravanan Rust MD at 22:28 EDT , Abdomen/Pelvis CT 12/27/23 22:58 IMPRESSION: Cholelithiasis with choledocholithiasis. N.B. : The above Results were Read Back by Saravanan Rust MD to Ginny Stratton DO, and understanding confirmed on 12/28/2023 00:07:14 (ET). Electronically Signed: Saravanan Rust MD at 0:10 EDT Reading Location ID and State: [facility] / [employer] Tel , Service support , ADDENDUM: 12/28/23 0017 IMPRESSION: Cholelithiasis with choledocholithiasis. N.B. : The above Results were Read Back by Saravanan Rust MD to Ginny Stratton DO, and understanding confirmed on 12/28/2023 00:07:14 (ET). Electronically Signed: Saravanan Rust MD at 0:10 EDT Reading Location ID and State: 1407 / [employer] Tel , Service support , Physical Exam Narrative Seen and examined. Patient was admitted with right upper quadrant pain with radiation to right shoulder, hyperbilirubinemia and elevated liver chemistry consistent with obstructive jaundice. Abdominal pain has resolved. Plan for ERCP and lap jayant today. No fever Physical exam General: Alert, Oriented x3, Cooperative HEENT: Atraumatic, PERRLA, EOMI, Normocephalic Oral: No Gingival or Mucosal Lesions/ Ulcerations Neck: Supple, No JVD, Negative Carotid Bruits Chest wall/Lungs: Air entry diminished in bilateral lung bases. No crepitation/rhonchi Cardiovascular: Regular rate, Regular Rhythm, Normal S1, Normal S2, No M/G/R Abdomen: Bowel Sounds Present, Soft, mild tenderness over right costal rib cage. GB not palpable. No rebound tenderness. : No dysuria. No renal angle tenderness. No suprapubic tenderness. Extremities: No edema, Capillary Refill Less than 3 Seconds Skin: No rashes, No breakdown Musculoskeletal: No Tenderness to Palpation of Joints or Extremities Neurological: Cranial nerves II-XII grossly intact, DTR 2+/4. No acute focal neurological deficit. Psych/Mental Status: Normal Affect, Appropriate. Assessment & Plan Assessment/Plan (1) Choledocholithiasis: (2) Cholelithiasis: (3) Hypoglycemia: PLAN: Plan 73-year-old female admitted with 2-day history of RUQ abdominal pain with radiation to back, itching. She has history of gallstones. Had appendectomy and hysterectomy in the past. Unable to eat with throwing up. Acute on chronic cholecystitis with choledocholithiasis: Patient admitted on [facility] floor on IV fluid, antiemetic and pain control. Patient evaluated by door puller and the surgeon. Plan for ERCP and lap jayant Gallbladder ultrasound shows cholelithiasis. Abdomen pelvis shows cholelithiasis with choledocholithiasis. Mild RUQ tenderness present. Obstructive jaundice with elevated liver chemistry, acute liver injury due to acute on cholecystitis with choledocholithiasis * Mild improvement in transaminases and alkaline phosphatase. Total bilirubin went up 2.6-3.0. Baseline 0.2. * Monitor liver chemistry Hypoglycemia and a type II diabetic * Patient normally takes U-500. Did have blood sugar in the 30s. Did receive half amp of D50 and currently blood sugars are better. Subsequent glucose levels show improvement, glucose 176, A1c 7.5. Accu-Chek last 188. Chronic conditions * GERD: Continue PPI * Depression: Continue with escitalopram * Hypertension: Continue with HCTZ, losartan, verapamil, metoprolol succinate. * Overactive bladder: Continue with oxybutynin. VTE prophylaxis: Moderate risk. SCDs for now. Holding off on chemical prophylaxis in light of potential procedures. CODE STATUS: Addressed with the patient. Patient wishes to be full code Laboratory Results 12/27/23 21:10: WBC 7.7, RBC 4.05 L, Hgb 12.0, Hct 38.3, MCV 94.6, MCH 29.6, M CHC 31.3 L, RDW Std Deviation 47.3 H, RDW Coeff of Tom 13.6, Plt Count 318, MPV 9.7, Immature Gran % (Auto) 0.500, Neut % (Auto) 64.7, Lymph % (Auto) 23.1, [place] % (Auto) 7.4, Eos % (Auto) 3.4, Baso % (Auto) 0.9, Absolute Neuts (auto) 5.0, Absolute Lymphs (auto) 1.78, Nucleated RBC % 0, Sodium 137, Potassium 3.8, Chloride 105, Carbon Dioxide 28.0, Anion Gap 4 L, BUN 11, Creatinine 1.27 H, Estim Creat Clear Calc 40.99, Est GFR (MDRD) Af Amer 53 L, Est GFR (MDRD) Non-Af 44 L, BUN/Creatinine Ratio 8.7 L, Glucose 180 H, Calcium 9.1, Total Bilirubin 2.60 H, AST 425 H, ALT 420 H, Alkaline Phosphatase 210 H, Total Protein 8.2, A lbumin 3.0 L, Globulin 5.2 H, Albumin/Globulin Ratio 0.6 L, Lipase 39 12/27/23 22:23: Urine Color Yellow, Urine Clarity Clear, Urine pH 6.5, Ur Specific [place] 1.010, Urine Protein 15 H, Urine Glucose (UA) 1000 H, Urine Ketones 5 H, Urine Occult Blood 10 H, Urine Nitrite Negative, Urine Bilirubin 1 H, Urine Urobilinogen 1 H, Ur Leukocyte Esterase Negative, Urine RBC 0 SEEN, Urine WBC 0 SEEN, Ur Squamous Epith Cells 0-5 SEEN, Urine Bacteria 0 SEEN, Urine Mucus 0 SEEN 12/27/23 23:58: POC Glucose 33 L* 12/28/23 00:12: POC Glucose 181 H 12/28/23 00:48: POC Glucose 111 H 12/28/23 01:40: POC Glucose 81 12/28/23 03:00: POC Glucose 98 12/28/23 06:19: POC Glucose 154 H 12/28/23 07:18: WBC 6.1, RBC 3.49 L, Hgb 10.5 L, Hct 32.6 L, MCV 93.4, MCH 30.1, MCHC 32.2, RDW Std Deviation 46.5 H, RDW Coeff of Tom 13.7, Plt Count 238, MPV 9.3, Immature Gran % (Auto) 0.500, Neut % (Auto) 58.0, Lymph % (Auto) 28.4, [place] % (Auto) 8.3, Eos % (Auto) 4.0, Baso % (Auto) 0.8, Absolute Neuts (auto) 3.5, Absolute Lymphs (auto) 1.72, Nucleated RBC % 0, Sodium 137, Potassium 3.4 L, Chloride 106, Carbon Dioxide 26.0, Anion Gap 5, BUN 7, Creatinine 0.85, Estim Creat Clear Calc 59.30, Est GFR (MDRD) Af Amer 84, Est GFR (MDRD) Non-Af 70, B UN/Creatinine Ratio 8.2 L, Glucose 176 H, Hemoglobin A1c 7.5 H, Calcium 8.5, T otal Bilirubin 3.00 H, AST 314 H, ALT 331 H, Alkaline Phosphatase 173 H, Total Protein 6.7, Albumin 2.5 L, Globulin 4.2, Albumin/Globulin Ratio 0.6 L 12/28/23 10:56: POC Glucose 188 H Clinical Impression(s) from Imaging Studies Gallbladder Ultrasound 12/27/23 21:19 IMPRESSION: Cholelithiasis. Abdomen/Pelvis CT 12/27/23 22:58 IMPRESSION: Cholelithiasis with choledocholithiasis. Charges/Coding Visit Charges Inpatient E&M: 92491 Subs Hosp L2
[2023-12-28 11:15] LABS: Bedside Glucose 188 mg/dL (74-106)
--- NOTE | 2023-12-28 11:48 | CASEMGMT ---
CAROL CM attempted assessment, pt is off the floor at this time.
--- NOTE | 2023-12-28 12:25 | GALL_PTH ---
PATIENT: MENDEZ KEITH LOC: MS3 U#:[id number] AGE/SX: 73/F [facility] RE12/28/[address]: Dr. Jj Whitfield MD : 1950 BED: 1 DIS: 12/30/2023 SPEC #: [id number] RECD: 12/29/23 09:18 STATUS: ANGELICA TAYLOR #: [id number] ARLEY: 12/28/23 12:[address]: Fidel Olivas DEPT: SURGICAL PATHOLOGY RECD BY: Shoaib White ENTERED: 12/29/23 12:27 SP TYPE: DEWAYNE STEPHENS DR: DO Dr. Chino Huff MD Dr. Prakash Chand, MD Dr. William Lago, MD Tissues: Gallbladder, NOS Procedures: Surgery Specimen Level III HEADER OPERATION: ERCP with pancreatic stent placement, biliary stent placement PRE-OP DIAGNOSIS: Choledocholithiasis, cholelithiasis, hypoglycemia TISSUE SUBMITTED: Gallbladder MICROSCOPIC DIAGNOSIS Gallbladder, cholecystectomy: Chronic cholecystitis and cholelithiasis. WILFREDO/ 12/30/2023 MICROSCOPIC DESCRIPTION Slides are reviewed. GROSS DESCRIPTION Received is one container labeled with the patient's name and designated gallbladder. The specimen consists of a gallbladder measuring 6.5 cm in length and up to 3.0 cm in diameter. The external surface is pink-guth[place], smooth and glistening for the most part. Focally it is granular, hemorrhagic and contains cautery artifact. The gallbladder contains green-yellow mucoid bile and multiple black irregular stones measuring in aggregate 2.5 x 1.5 x 0.8 cm and <0.1 to 0.7 cm in greatest dimension. The mucosa is bile-stained and without any mass lesions. The gallbladder wall measures up to 0.3 cm in thickness. [employer] Product Development Manager sections from the gallbladder and the cystic duct are submitted in one cassette. / WILFREDO: 12/29/2023 TC:3 CPT: 96086
--- NOTE | 2023-12-28 13:15 | RAD_ITS ---
STUDY: ERCP REASON FOR EXAM: Female, 73 years old. PAIN FLUOROSCOPY TIME (if supplied): ( 4 minutes and 38 seconds ) minutes/seconds. 103.3 mGy. 11 images were submitted. TECHNIQUE: An ERCP was performed by the marketing account executive. Imaging was provided. COMPARISON: None. FINDINGS: There is evidence of cholelithiasis within the gallbladder lumen. CBD stent was placed. RAD/ERCP Biliary/Pancreas IMPRESSION: CBD stenting. Electronically Signed: Jean Rodriguez MD at 9:17 EDT ,
--- NOTE | 2023-12-28 15:20 | RAD_ITS ---
STUDY: ERCP. REASON FOR EXAM: Female, 73 years old. PAIN FLUOROSCOPY TIME (if supplied): ( 33 seconds ) minutes/seconds. 24.8 mGy. TECHNIQUE: An ERCP was performed by the senior integration developer. Imaging was performed. COMPARISON: None. FINDINGS: There is evidence of a stent in the pancreatic duct as well as in the common bile duct. RAD/Cholangiogram/ O R,Initial IMPRESSION: CBD stent and stent in the pancreatic duct. Electronically Signed: Jean Rodriguez MD at 9:19 EDT ,
[2023-12-28] MEDS: Bupiv/Epi 0.25% 30 ML Vial (16:09)
--- NOTE | 2023-12-28 16:10 | OP.PCM_ITS ---
Report of Operation Date of Procedure: 12/28/23 Pre-Operative Diagnosis: Choledocholithiasis status post ERCP Post-Operative Diagnosis: Choledocholithiasis status post ERCP with evidence of chronic cholecystitis Surgery/Procedure Performed:: Laparoscopic cholecystectomy with intraoperative cholangiogram Description of Surgical Findings:: ? Evidence of chronic cholecystitis with mild gallbladder wall thickening and whitish coloration of the gallbladder body ? Liver with evidence of Gary-Edwar Jalen adhesions capsule ? Cholangiogram showing antegrade filling through the common bile duct stent into the duodenum without obstruction. Also retrograde filling of the common hepatic duct system. Surgeon: Chino Skelton Type of Anesthesia: General/Supplemental Anesthesiologist: Allen Fowler Specimen's removed: Gallbladder Estimated Blood Loss (mL): 25 Description of Procedure: After proper identification in the preoperative holding area the patient was brought to the operating room where she was positioned supine on the operating room table. General anesthesia was then induced and the patient was repositioned supine for her ERCP procedure. Upon conclusion of this procedure I returned to the room where patient was again repositioned in supine and antibiotics were r eadministered with 2 g Ancef for surgical prophylaxis. Patient's abdomen was prepped and draped in usual sterile fashion. A formal timeout was conducted to confirm both patient and the procedure. Procedure was begun with a supraumbilical incision which was extended deeply down to the level of the fascia. The fascia was elevated and incised, as well as the peritoneum. A finger sweep was performed to ensure there were no underlying adhesions and a 12 mm balloon trocar was inserted. Pneumoperitoneum was established at 15 mmHg. Three additional trocars (all 5 mm) were placed in the epigastrium and in the right upper quadrant. Inspection of the peritoneum revealed no inadvertent injury to the viscera below. The gallbladder was visualized with evidence of mild chronic inflammation. The liver showed morphology consistent with at least mild chronic inflammation as well as adhesions between the anterior capsule and the underside of the diaphragm suggestive of Gary-Edwar Jalen adhesions. The gallbladder fundus was then grasped and elevated cephalad. Then, using careful dissection the peritoneum was opened and the structures of the hepatocystic triangle were delineated. Once the critical view of safety was obtained, the cystic duct was singly clipped and partially divided with a ductotomy. The proximal duct was milked of debris until there was backflow of bile. Using an Perez Conway clamp, a cholangiocatheter was fed into the proximal segment of the cystic duct and clamped into place. Under fluoroscopy a cholangiogram was then obtained showing a normal length cystic duct flowing into a stented common bile duct with unobstructed antegrade flow of contrast into the duodenum. There was also retrograde flow through the common hepatic duct into the right and left hepatic ducts. Satisfied with this result, the cholangiocatheter was withdrawn and the proximal cystic duct was sealed with clips and the cystic duct was completely transected. The same process was used for the main anterior cystic artery as well as a accessory posterior cystic artery. The gallbladder was then removed from the gallbladder fossa with the use of electrocautery. During removal there were several inadvertent tears in the liver capsule from the friable liver with our retraction so selective electrocautery was used to obtain hemostasis in the gallbladder fossa. The gallbladder was placed in an Endo Catch bag and removed from the peritoneum. Morison's pouch was irrigated and the effluent was suctioned free of the peritoneum. Hemostasis was again confirmed. Pneumoperitoneum was evacuated and the fascia of the 12 mm port sites was closed with #1Vicryl in a [id number] fashion. A total of 30 mL of anesthetic was injected at the port sites for postoperative pain control. The skin of each port site was then closed in subcuticular fashion using 4-0 Monocryl. Steri- Strips and bandages were applied as dressings. Patient tolerated the procedure well without any apparent complications. On emergence from their anesthetic the patient was taken to PACU for ongoing recovery. Complications None Admit VTE Documentation VTE Mechan Device Prophylaxis: SCD's Procedures Digestive 40xxx-49xxx: 46707 Laparo cholecystectomy/graph
[2023-12-28] MEDS: Lactated Ringers 1,000 ML 15 ML IV (16:56)
--- NOTE | 2023-12-28 17:19 | OP.ERCP_ITS ---
Patient Name: Manisha Beth Procedure Date: 12/28/2023 12:47 PM Date of : 1950 Age: 73 Procedure: ERCP Indications: Common bile duct stone(s), Jaundice Providers: Fidel Olivas DO Medicines: Monitored Anesthesia Care Patient Profile: This is a 73 year old female. Refer to note in patient chart for documentation of history and physical. Patient has symptoms of acute right upper quadrant abdominal pain. This patient has no history of previous ERCP. Complications: No immediate complications. Procedure: Pre-Anesthesia Assessment: - Prior to the procedure, a History and Physical was performed, and patient medications and allergies were reviewed. The patient is competent. The risks and benefits of the procedure and the sedation options and risks were discussed with the patient. All questions were answered and informed consent was obtained. Patient identification and proposed procedure were verified by the physician in the pre-procedure area. Mental Status Examination: alert and oriented. Airway Examination: normal oropharyngeal airway and neck mobility. Respiratory Examination: clear to auscultation. CV Examination: normal. Prophylactic Antibiotics: The patient does not require prophylactic antibiotics. Prior Anticoagulants: The patient has taken no anticoagulant or antiplatelet agents. ASA Grade Assessment: III - A patient with severe systemic disease. After reviewing the risks and benefits, the patient was deemed in satisfactory condition to undergo the procedure. The anesthesia plan was to use general anesthesia. Immediately prior to administration of medications, the patient was re-assessed for adequacy to receive sedatives. The heart rate, respiratory rate, oxygen saturations, blood pressure, adequacy of pulmonary ventilation, and response to care were monitored throughout the procedure. The physical status of the patient was re-assessed after the procedure. After obtaining informed consent, the scope was passed under direct vision. Throughout the procedure, the patient's blood pressure, pulse, and oxygen saturations were monitored continuously. The Duodenoscope was introduced through the mouth, and advanced to the duodenum and used to inject contrast into the bile duct and ventral pancreatic duct. The ERCP was accomplished without difficulty. The patient tolerated the procedure well. Scope In: 1:29:07 PM Scope Out: 2:31:40 PM Total Procedure Duration Time 1 hour 2 minutes 33 seconds Findings: The gathering machine setter film was normal. The esophagus was successfully intubated under direct vision. The scope was advanced to a normal major papilla in the descending duodenum without detailed examination of the pharynx, larynx and associated structures, and upper GI tract. The upper GI tract was grossly normal. The bile duct was deeply cannulated. Contrast was injected. I personally interpreted the bile duct and pancreatic duct images. There was brisk flow of contrast through the ducts. Image quality was excellent. Contrast extended to the entire biliary tree. Opacification of the entire opacified area was successful. The maximum diameter of the ducts was 10 mm. The lower third of the main bile duct and common hepatic duct contained three stones, the largest of which was 4 mm in diameter. The main bile duct was diffusely dilated, with a stone causing an obstruction. The largest diameter was 8 mm. A straight Roadrunner wire was passed into the biliary tree. A 5 mm biliary sphincterotomy was made with a monofilament traction (standard) sphincterotome using ERBE electrocautery. Moderate bleeding from the sphincterotomy stopped within 5 minutes. The biliary tree was swept with a 12 mm balloon starting at the bifurcation. Sludge was swept from the duct. All stones were removed. The ventral pancreatic duct was deeply cannulated with the short-nosed traction sphincterotome. Contrast was injected. Opacification of the entire pancreatic ductal system was successful. The maximum diameter of the ducts was 3 mm. The entire opacified area was normal. A 0.035 inch x 260 cm angled Hydra Jagwire was passed into the ventral pancreatic duct. A 5 mm ventral pancreatic sphincterotomy was made with a monofilament needle knife over a pancreatic stent using ERBE electrocautery. The sphincterotomy oozed blood. To find object(s) the ventral pancreatic duct was swept with a 15 mm balloon starting at the pancreatic duct in the body of the pancreas. One 5 Fr by 7 cm temporary stent was placed 5 cm into the ventral pancreatic duct. Clear fluid flowed through the stent. The stent was in good position. One 10 Fr by 5 cm temporary stent was placed 5 cm into the common bile duct. Bile flowed through the stent. The stent was in good position. Impression: - The entire main bile duct was dilated, with a stone causing an obstruction. - Choledocholithiasis was found. Complete removal was accomplished by biliary sphincterotomy and balloon extraction. - A biliary sphincterotomy was performed. - The biliary tree was swept. - A pancreatic sphincterotomy was performed. - The ventral pancreatic duct was swept. - One temporary stent was placed into the ventral pancreatic duct. - One temporary stent was placed into the common bile duct. Recommendation: - Avoid aspirin and nonsteroidal anti-inflammatory medicines. Procedure Code(s): --- Professional --- 23063, Endoscopic retrograde cholangiopancreatography (ERCP); with placement of endoscopic stent into biliary or pancreatic duct, including pre- and post-dilation and guide wire passage, when performed, including sphincterotomy, when performed, each stent 18731, 59, Endoscopic retrograde cholangiopancreatography (ERCP); with placement of endoscopic stent into biliary or pancreatic duct, including pre- and post-dilation and guide wire passage, when performed, including sphincterotomy, when performed, each stent 09484, Endoscopic retrograde cholangiopancreatography (ERCP); with removal of calculi/debris from biliary/pancreatic duct(s) 15640, 26, Combined endoscopic catheterization of the biliary and pancreatic ductal systems, radiological supervision and interpretation CPT copyright 2021 [employer]. All rights reserved. The codes documented in this report are preliminary and upon relations specialist review may be revised to meet current compliance requirements. Fidel Olivas DO 12/28/2023 5:19:25 PM This report has been signed electronically. Number of Addenda: 0 Note Initiated On: 12/28/2023 12:47 PM
--- NOTE | 2023-12-28 17:20 | OP.CCLET_ITS ---
12/28/2023 Brayan Arita Re : ERCP procedure for Manisha Beth Dear Lyla This procedure was performed on Thursday, December 28, 2023. My impressions and recommendations are as follows: Impressions : - The entire main bile duct was dilated, with a stone causing an obstruction. - Choledocholithiasis was found. Complete removal was accomplished by biliary sphincterotomy and balloon extraction. - A biliary sphincterotomy was performed. - The biliary tree was swept. - A pancreatic sphincterotomy was performed. - The ventral pancreatic duct was swept. - One temporary stent was placed into the ventral pancreatic duct. - One temporary stent was placed into the common bile duct. Recommendations : - Avoid aspirin and nonsteroidal anti-inflammatory medicines. My findings are described in the full procedure note, which is enclosed. If I can be of further assistance, please feel free to contact me at . Sincerely, Fidel Olivas, 12/28/2023 5:19:25 PM This report has been signed electronically.
[2023-12-28] MEDS: Ondansetron 4 MG/2 ML Vial IV (17:47)
[2023-12-28] MEDS: 0.9% Saline Lock 10 ML Syringe IV (17:47)
[2023-12-28] MEDS: Insulin Lispro 100 UNIT/ML INSULN.PEN SC (17:50)
[2023-12-28 18:26] LABS: Bedside Glucose 316 mg/dL (74-106)
[2023-12-28] MEDS: proCHLORPERazine 10 MG/2 ML Vial 5 MG IV (20:05)
[2023-12-28] MEDS: oxyCODONE 5 MG Tablet PO (20:05)
[2023-12-28] MEDS: Verapamil SR 240 MG Tablet 120 MG PO (21:54)
[2023-12-28] MEDS: Gabapentin 300 MG Capsule PO (21:54)
[2023-12-28] MEDS: 0.9% Normal Saline (250mL Bag) 250 ML 15 ML IV (22:12)
[2023-12-28 22:37] LABS: Bedside Glucose 272 mg/dL (74-106)
[2023-12-28] MEDS: Insulin Lispro 100 UNIT/ML INSULN.PEN 10 UNIT SC (22:43)
[2023-12-29] VITALS (8 sets, daily range): BP systolic 127–145; BP diastolic 47–91; PULSE 65–89; RESP 16–18; TEMP 36.6–37.2; O2SAT 85–97
[2023-12-29] MEDS: 0.9% Normal Saline (1000mL) 1,000 ML 125 ML IV ×2 (02:09→10:12)
[2023-12-29] MEDS: oxyCODONE 5 MG Tablet PO ×2 (06:19→15:11)
[2023-12-29] MEDS: Piperacil/Tazobactam 3.375 GM in 0.9% Normal Saline (50mL MB+) 50 ML IV (06:19)
[2023-12-29] MEDS: Insulin Lispro 100 UNIT/ML INSULN.PEN SC ×3 (06:23→16:19)
[2023-12-29 06:56] LABS: Bedside Glucose 205 mg/dL (74-106)
--- NOTE | 2023-12-29 07:19 | PN.SURG_ITS ---
Subjective Subjective Patient seen and examined during AM rounds. She is found resting in bed, however, she states that she is feeling some soreness this morning. She rates this at a 5 out of 10 in intensity. She confirms that she tolerated her clear liquid diet and expresses an appetite for more Objective Data Objective Data Vital Signs: Vital Signs Temp Pulse Resp BP Pulse Ox O2 Del Method O2 Flow Rate 98 F 89 18 137/65 H 95 Nasal Cannula 2 12/29/23 06:01 12/29/23 06:01 12/29/23 06:01 12/29/23 06:01 12/29/23 06:01 12/29/23 06:01 12/29/23 06:01 Oxygen Flow Rate (L/min) 2 Oxygen Delivery Method Nasal Cannula Weight: 182 lb 15.739 oz Body Mass Index (BMI) 34.5 Intake & Output: Intake and Output for Last 24 Hours 12/27/23 12/28/23 12/29/23 23:59 23:59 23:59 Intake Total 2428.16 / 2428.16 1050 / 1050 Balance 2428.16 / 2428.16 1050 / 1050 Lab / Micro Data 12/28/23 07:18 12/28/23 07:18 Labs: Laboratory Results - last 24 hr 12/28/23 07:18: WBC 6.1, RBC 3.49 L, Hgb 10.5 L, Hct 32.6 L, MCV 93.4, MCH 30.1, MCHC 32.2, RDW Std Deviation 46.5 H, RDW Coeff of Tom 13.7, Plt Count 238, MPV 9.3, Immature Gran % (Auto) 0.500, Neut % (Auto) 58.0, Lymph % (Auto) 28.4, [place] % (Auto) 8.3, Eos % (Auto) 4.0, Baso % (Auto) 0.8, Absolute Neuts (auto) 3.5, Absolute Lymphs (auto) 1.72, Nucleated RBC % 0, Sodium 137, Potassium 3.4 L, Chloride 106, Carbon Dioxide 26.0, Anion Gap 5, BUN 7, Creatinine 0.85, Estim Creat Clear Calc 59.30, Est GFR (MDRD) Af Amer 84, Est GFR (MDRD) Non-Af 70, B UN/Creatinine Ratio 8.2 L, Glucose 176 H, Hemoglobin A1c 7.5 H, Calcium 8.5, T otal Bilirubin 3.00 H, Direct Bilirubin 2.30 H, AST 314 H, ALT 331 H, Alkaline Phosphatase 173 H, Total Protein 6.7, Albumin 2.5 L, Globulin 4.2, A lbumin/Globulin Ratio 0.6 L 12/28/23 10:56: POC Glucose 188 H 12/28/23 17:33: POC Glucose 316 H 12/28/23 21:53: POC Glucose 272 H 12/29/23 06:21: POC Glucose 205 H Physical Exam Const oriented x3 and no apparent distress Resp normal respiratory effort GI GI Narrative: Mild distention, operative dressings intact without strikethrough. Patient with yeison-incisional tenderness upon palpation. Assessment & Plan Assessment/Plan (1) Choledocholithiasis: PLAN: Patient is a 73-year-old female admitted overnight with signs and symptoms consistent with diagnosis of choledocholithiasis. Now status post ERCP followed by laparoscopic cholecystectomy yesterday, 12/28/2023. She returned to the floor last evening following these procedures where she has remained under observation. I am laboratories are pending but patient's exam is reassuring. Will plan to advance her diet today, discontinue antibiotics, and ensure adequate pain control before anticipated discharge later today. Chino Skelton MD General Surgery Endocrine Surgery Pager: [facility] [address] [place] [address], [address] [place] [id number] Office: [phone] Charges/Coding Visit Charges Inpatient E&M: 77650 Subs Hosp L2
[2023-12-29 07:41] LABS: Absolute Lymphocyte Count 1.15 X10^3/uL (0.83-4.51); Absolute Neutrophil Count 6.3 X10^3/uL (2.0-7.7); Basophil# 0.05 X10^3/uL; Basophil% 0.6 % (0-1); Eosinophils% 2.4 % (0-5); Hematocrit 32.5 % (37-47); Hemoglobin 10.3 g/dL (12.0-15.0); Lymphocyte # 1.15 X10^3/ul (0.83-4.51); Lymphocyte % 13.7 % (19-41); Mean Corp Hgb Conc 31.7 g/dL (32-36); Mean Corpuscular Hgb 30.5 pg (27.0-32.0); Mean Corpuscular Volume 96.2 fL (81-99); Mean Platelet Vol. 9.2 fl (6.2-12.0); Monocyte# 0.64 X10^3/uL; Monocyte% 7.6 % (0-10); NRBC Flagged by Analyzer 0 % (0-5); Neutrophil # 6.32 X10^3/uL (2.7-7.7); Neutrophil % 75.1 % (47-70); Platelet Count 229 K/mm3 (150-450); RBC Distribution Width SD 49.6 fl (35.1-43.9); Red Blood Count 3.38 M/mm3 (4.2-5.4); White Blood Count 8.4 K/mm3 (4.4-11.0)
[2023-12-29 07:59] LABS: ALB/GLOB Ratio 0.5 RATIO (0.9-2.4); AST(SGOT) 292 U/L (15-37); Alanine Aminotransfer ALT/SGPT 306 U/L (13-56); Albumin, Serum 2.2 g/dL (3.2-5.0); Alkaline Phosphatase 174 U/L (45-117); Anion Gap 5 (5-15); BUN 9 mg/dL (7-18); BUN/Creat Ratio 9.9 RATIO (10-20); Chloride 107 mmol/L (98-107); Creatinine, Serum 0.91 mg/dL (0.55-1.02); EST Glomerular Filtration Rate 65 mL/min (>60); Est Glom Filt Rate - Afr Amer 78 mL/min (>60); Estimated Creatinine Clearance 55.39 ml/min; Globulin 4.2 g/dL (2.2-4.2); Glucose 225 mg/dL (74-106); Potassium 3.5 mmol/L (3.5-5.1); Protein, Total 6.4 g/dL (6.4-8.2); Sodium Level 137 mmol/L (136-145)
--- NOTE | 2023-12-29 08:27 | PN.HOSP_ITS ---
Reason for Visit Reason for Visit: Diagnoses Hypoglycemia, unspecified (12/28/23) Calculus of gallbladder without cholecystitis without obstruction (12/28/23) Calculus of bile duct without cholangitis or cholecystitis without obstruction (12/28/23) Objective Data Objective Data Vital Signs: Vital Signs Temp Pulse Resp BP Pulse Ox O2 Del Method O2 Flow Rate 98 F 89 18 137/65 H 95 Nasal Cannula 2 12/29/23 06:01 12/29/23 06:01 12/29/23 06:01 12/29/23 06:01 12/29/23 06:01 12/29/23 06:01 12/29/23 06:01 Oxygen Flow Rate (L/min) 2 Oxygen Delivery Method Nasal Cannula Weight: 182 lb 15.739 oz Body Mass Index (BMI) 34.5 Intake & Output: Intake and Output for Last 24 Hours 12/27/23 12/28/23 12/29/23 23:59 23:59 23:59 Intake Total 2428.16 / 2428.16 1050 / 1050 Balance 2428.16 / 2428.16 1050 / 1050 Lab / Micro Data 12/29/23 07:15 12/29/23 07:15 Labs: Laboratory Results - last 24 hr 12/28/23 07:18: Direct Bilirubin 2.30 H 12/28/23 10:56: POC Glucose 188 H 12/28/23 17:33: POC Glucose 316 H 12/28/23 21:53: POC Glucose 272 H 12/29/23 06:21: POC Glucose 205 H 12/29/23 07:15: WBC 8.4, RBC 3.38 L, Hgb 10.3 L, Hct 32.5 L, MCV 96.2, MCH 30.5, MCHC 31.7 L, RDW Std Deviation 49.6 H, RDW Coeff of Tom 14.0, Plt Count 229, MPV 9.2, Immature Gran % (Auto) 0.600, Neut % (Auto) 75.1 H, Lymph % (Auto) 13.7 L, [place] % (Auto) 7.6, Eos % (Auto) 2.4, Baso % (Auto) 0.6, Absolute Neuts (auto) 6.3, Absolute Lymphs (auto) 1.15, Nucleated RBC % 0, Sodium 137, Potassium 3.5, Chloride 107, Carbon Dioxide 25.0, Anion Gap 5, BUN 9, Creatinine 0.91, Estim Creat Clear Calc 55.39, Est GFR (MDRD) Af Amer 78, Est GFR (MDRD) Non-Af 65, B UN/Creatinine Ratio 9.9 L, Glucose 225 H, Calcium 8.0 L, Total Bilirubin 2.30 H, Direct Bilirubin 1.90 H, AST 292 H, ALT 306 H, Alkaline Phosphatase 174 H, Total Protein 6.4, Albumin 2.2 L, Globulin 4.2, Albumin/Globulin Ratio 0.5 L Physical Exam Narrative Seen and examined. Patient was admitted with right upper quadrant pain with radiation to right shoulder, hyperbilirubinemia and elevated liver chemistry consistent with obstructive jaundice. Abdominal pain has resolved. Status post ERCP and lap jayant yesterday. No fever. Has not passed flatus or bowel movement. Physical exam General: Alert, Oriented x3, Cooperative HEENT: Atraumatic, PERRLA, EOMI, Normocephalic Oral: No Gingival or Mucosal Lesions/ Ulcerations Neck: Supple, No JVD, Negative Carotid Bruits Chest wall/Lungs: Air entry diminished in bilateral lung bases. No crepitation/rhonchi Cardiovascular: Regular rate, Regular Rhythm, Normal S1, Normal S2, No M/G/R Abdomen: Bowel Sounds Present, Soft, mild expected postop right upper quadrant tenderness. : No dysuria. No renal angle tenderness. No suprapubic tenderness. Extremities: No edema, Capillary Refill Less than 3 Seconds Skin: No rashes, No breakdown Musculoskeletal: No Tenderness to Palpation of Joints or Extremities Neurological: Cranial nerves II-XII grossly intact, DTR 2+/4. No acute focal neurological deficit. Psych/Mental Status: Normal Affect, Appropriate. Assessment & Plan Assessment/Plan (1) Choledocholithiasis: (2) Cholelithiasis: (3) Hypoglycemia: PLAN: Plan 73-year-old female admitted with 2-day history of RUQ abdominal pain with radiation to back, itching. She has history of gallstones. Had appendectomy and hysterectomy in the past. Unable to eat with throwing up. Acute on chronic cholecystitis with choledocholithiasis: Patient admitted on [facility] floor on IV fluid, antiemetic and pain control. Patient evaluated by scrubber operator and the surgeon. Plan for ERCP and lap jayant Gallbladder ultrasound shows cholelithiasis. Abdomen pelvis shows cholelithiasis with choledocholithiasis. Mild RUQ tenderness present. ERCP 12/28/2023 impressions : - The entire main bile duct was dilated, with a stone causing an obstruction. - Choledocholithiasis was found. Complete removal was accomplished by biliary sphincterotomy and balloon extraction. - A biliary sphincterotomy was performed. - The biliary tree was swept. - A pancreatic sphincterotomy was performed. - The ventral pancreatic duct was swept. - One temporary stent was placed into the ventral pancreatic duct. - One temporary stent was placed into the common bile duct. Subsequently patient had laparoscopic cholecystectomy with intraoperative cholangiogram. Evidence of chronic cholecystitis with mild GB wall thickening. Liver with evidence of Gary-Edwar Jalen capsular adhesion. Cholangiogram shows antegrade flow of contrast into duodenum without obstruction. Obstructive jaundice with elevated liver chemistry, acute liver injury due to acute on cholecystitis with choledocholithiasis * Mild improvement in transaminases and alkaline phosphatase. Total bilirubin went up 2.6-3.0. Baseline 0.2. * Monitor liver chemistry 12/28: Improvement in total bilirubin. Bilirubin ALT AST alkaline phosphatase. Hypoglycemia and a type II diabetic * Patient normally takes U-500. Did have blood sugar in the 30s. Did receive half amp of D50 and currently blood sugars are better. Subsequent glucose levels show improvement, glucose 176, A1c 7.5. Accu-Chek last 188. * 12/28: Glucose is high at 225. Patient had Humalog insulin 10 units yesterday one-time dose. Started on scheduled Humalog insulin with meals. Currently on full liquid diet advance to soft diet. Chronic conditions * GERD: Continue PPI * Depression: Continue with escitalopram * Hypertension: Continue with HCTZ, losartan, verapamil, metoprolol succinate. * Overactive bladder: Continue with oxybutynin. VTE prophylaxis: Moderate risk. SCDs for now. Holding off on chemical prophylaxis in light of potential procedures. CODE STATUS: Addressed with the patient. Patient wishes to be full code Laboratory Results 12/28/23 07:18: Direct Bilirubin 2.30 H 12/28/23 17:33: POC Glucose 316 H 12/28/23 21:53: POC Glucose 272 H 12/29/23 06:21: POC Glucose 205 H 12/29/23 07:15: WBC 8.4, RBC 3.38 L, Hgb 10.3 L, Hct 32.5 L, MCV 96.2, MCH 30.5, MCHC 31.7 L, RDW Std Deviation 49.6 H, RDW Coeff of Tom 14.0, Plt Count 229, MPV 9.2, Immature Gran % (Auto) 0.600, Neut % (Auto) 75.1 H, Lymph % (Auto) 13.7 L, [place] % (Auto) 7.6, Eos % (Auto) 2.4, Baso % (Auto) 0.6, Absolute Neuts (auto) 6.3, Absolute Lymphs (auto) 1.15, Nucleated RBC % 0, Sodium 137, Potassium 3.5, Chloride 107, Carbon Dioxide 25.0, Anion Gap 5, BUN 9, Creatinine 0.91, Estim Creat Clear Calc 55.39, Est GFR (MDRD) Af Amer 78, Est GFR (MDRD) Non-Af 65, B UN/Creatinine Ratio 9.9 L, Glucose 225 H, Calcium 8.0 L, Total Bilirubin 2.30 H, Direct Bilirubin 1.90 H, AST 292 H, ALT 306 H, Alkaline Phosphatase 174 H, Total Protein 6.4, Albumin 2.2 L, Globulin 4.2, Albumin/Globulin Ratio 0.5 L 12/29/23 11:07: POC Glucose 263 H Clinical Impression(s) from Imaging Studies Gallbladder Ultrasound 12/27/23 21:19 IMPRESSION: Cholelithiasis. Abdomen/Pelvis CT 12/27/23 22:58 IMPRESSION: Cholelithiasis with choledocholithiasis. Charges/Coding Visit Charges Inpatient E&M: 26011 Subs Hosp L2
[2023-12-29] MEDS: Folic Acid 1 MG Tablet 2 MG PO (08:36)
[2023-12-29] MEDS: Losartan Potassium 100 MG Tablet PO (08:36)
[2023-12-29] MEDS: Escitalopram Oxalate 10 MG Tablet PO (08:36)
[2023-12-29] MEDS: Tolterodine Tartrate 4 MG CAP.SA PO (08:36)
[2023-12-29] MEDS: Metoprolol(XL)Succ 100 MG Tablet PO (08:37)
[2023-12-29] MEDS: Pantoprazole Sodium 40 MG Tablet PO (08:37)
--- NOTE | 2023-12-29 10:03 | CASEMGMT ---
Social Work- SW met with pt to complete SDOH. Information on transportation was requested and provided by SW. Pt states no other needs at this time. KAROLINA Barkley
--- NOTE | 2023-12-29 10:45 | CASEMGMT ---
CAROL SANZ Assessment: Face to Face with pt for initial transition planning/care coordination assessment. CAROL SANZ introduced self and role at [facility], pt voices understanding and consents to assessment. Pt is A&O x4 and answers all questions appropriately at this time.Pt sitting up in chair, hard to keep eyes open in no distress with oxygen on. Care providers, pharmacy, and demographics verified/updated. Admitting Dx:choledocholithiasis PCP:Lyla Specialists:Claude pulusman; King endo; Mary, rheum; DANA, cardio Preferred Pharmacy:[facility] Insurance:[facility] Prescription Benefit: yes LNOK:Mica Redd, dtr; [place] Beltran, dtr Living Arrangements: Pt lives alone but is currently staying with her dtr since her hip surgery. Pt reports being I in ADL's and denies concerns at her dtrs home. Pt dtr home is a one story with a couple of steps to enter with a rail. Transportation: Pt drives but has not driven since surgery. Pt dtr has been transporting pt as needed. DME:cane for short distances, walker that she usually uses, pt has a CGM with sufficient supplies and insulin with sufficient supplies. HHC/SNF:Pt has had [facility] in the past and just recently dc'd from. Pt has been to [facility]. Pt states no concerns with going home at time of dc. She does not feel that she needs HHC again. Pt reports she does not drink alcohol, smoke cigarettes or do any street or illegal drugs. Pt states no further concerns/needs. CM to follow. Advised pt to ask CM if any further question/concerns/needs arise, voices understanding. Pt Goal:Return to dtr's home Plan:Return to dtr's home
[2023-12-29 11:28] LABS: Bedside Glucose 263 mg/dL (74-106)
--- NOTE | 2023-12-29 12:51 | EX.PCM.PN.GI ---
Subjective Subjective Patient is status postcholecystectomy and status post ERCP with stone removals and stent placement. She rates her pain at a 5 out of 10. She is not eating much. She denies any chest pain or shortness of breath. She has not had a bowel movement yet. She does suffer from severe gastroparesis. She denies any bloating at this time. Objective Data Objective Data Vital Signs: Vital Signs Temp Pulse Resp BP Pulse Ox O2 Del Method O2 Flow Rate 98.6 F 73 16 145/91 H 85 Room Air 2 12/29/23 15:54 12/29/23 15:54 12/29/23 15:54 12/29/23 15:54 12/29/23 15:55 12/29/23 15:55 12/29/23 15:54 Oxygen Flow Rate (L/min) 2 Oxygen Delivery Method Room Air Weight: 182 lb 15.739 oz Body Mass Index (BMI) 34.5 Intake & Output: Intake and Output for Last 24 Hours 12/27/23 12/28/23 12/29/23 23:59 23:59 23:59 Intake Total 2428.16 / 2428.16 2775.00 / 2775.00 Balance 2428.16 / 2428.16 2775.00 / 2775.00 Lab / Micro Data 12/29/23 07:15 12/29/23 07:15 Labs: Laboratory Results - last 24 hr 12/28/23 07:18: Direct Bilirubin 2.30 H 12/28/23 17:33: POC Glucose 316 H 12/28/23 21:53: POC Glucose 272 H 12/29/23 06:21: POC Glucose 205 H 12/29/23 07:15: WBC 8.4, RBC 3.38 L, Hgb 10.3 L, Hct 32.5 L, MCV 96.2, MCH 30.5, MCHC 31.7 L, RDW Std Deviation 49.6 H, RDW Coeff of Tom 14.0, Plt Count 229, MPV 9.2, Immature Gran % (Auto) 0.600, Neut % (Auto) 75.1 H, Lymph % (Auto) 13.7 L, [place] % (Auto) 7.6, Eos % (Auto) 2.4, Baso % (Auto) 0.6, Absolute Neuts (auto) 6.3, Absolute Lymphs (auto) 1.15, Nucleated RBC % 0, Sodium 137, Potassium 3.5, Chloride 107, Carbon Dioxide 25.0, Anion Gap 5, BUN 9, Creatinine 0.91, Estim Creat Clear Calc 55.39, Est GFR (MDRD) Af Amer 78, Est GFR (MDRD) Non-Af 65, BUN/Creatinine Ratio 9.9 L, Glucose 225 H, Calcium 8.0 L, Total Bilirubin 2.30 H, Direct Bilirubin 1.90 H, AST 292 H, ALT 306 H, Alkaline Phosphatase 174 H, Total Protein 6.4, Albumin 2.2 L, Globulin 4.2, Albumin/Globulin Ratio 0.5 L 12/29/23 11:07: POC Glucose 263 H 12/29/23 16:17: POC Glucose 376 H Radiography Diagnostic Testing: Radiology Impression Endo Retro Cholangiopancreatogram 12/28/23 13:15 IMPRESSION: CBD stenting. Electronically Signed: Jean Rodriguez MD at 9:17 EDT , Cholangiogram 12/28/23 15:20 IMPRESSION: CBD stent and stent in the pancreatic duct. Electronically Signed: Jean Rodriguez MD at 9:19 EDT , Physical Exam Narrative She has no fever. She has not passed flatus or bowel movement. Physical exam General: Alert, Oriented x3, Cooperative HEENT: Atraumatic, PERRLA, EOMI, Normocephalic Oral: No Gingival or Mucosal Lesions/ Ulcerations Neck: Supple, No JVD, Negative Carotid Bruits Chest wall/Lungs: Air entry diminished in bilateral lung bases. No crepitation/rhonchi Cardiovascular: Regular rate, Regular Rhythm, Normal S1, Normal S2, No M/G/R Abdomen: Bowel Sounds Present, Soft, mild expected postop right upper quadrant tenderness. : No dysuria. No renal angle tenderness. No suprapubic tenderness. Extremities: No edema, Capillary Refill Less than 3 Seconds Skin: No rashes, No breakdown Musculoskeletal: No Tenderness to Palpation of Joints or Extremities Neurological: Cranial nerves II-XII grossly intact, DTR 2+/4. No acute focal neurological deficit. Psych/Mental Status: Normal Affect, Appropriate. Assessment & Plan Assessment/Plan (1) Choledocholithiasis: PLAN: 73-year-old with past medical history of rheumatoid arthritis, breast cancer, diabetes on methotrexate complicated by gastroparesis comes in with abdominal pain and discovered choledocholithiasis and cholecystitis. She is status post ERCP with stent removal and stone placement. She is also status post cholecystectomy. Her labs do show some improvement but her alkaline phosphatase has not gone down much. They could be swelling and or around the stent or could be residual sludge. 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 Recommend to watch 1 more day and follow LFTs and clinical exam. Advance diet as tolerated. Charges/Coding Visit Charges Inpatient E&M: 19116 Subs Hosp L3
[2023-12-29] MEDS: Insulin Lispro 100 UNIT/ML INSULN.PEN 8 UNIT SC (16:21)
[2023-12-29 16:43] LABS: Bedside Glucose 376 mg/dL (74-106)
[2023-12-29] MEDS: Verapamil SR 240 MG Tablet 120 MG PO (20:44)
[2023-12-29] MEDS: Gabapentin 300 MG Capsule PO (20:44)
[2023-12-29 21:04] LABS: Bedside Glucose 239 mg/dL (74-106)
[2023-12-29] MEDS: Nystatin Powder 15gm Bottle 1 APPLIC TOPICAL (22:52)
[2023-12-30 03:06] VITALS: BP 151/61; PULSE 73; RESP 16; TEMP 36.8; O2SAT 97
[2023-12-30 05:34] LABS: AST(SGOT) 166 U/L (15-37); Alanine Aminotransfer ALT/SGPT 238 U/L (13-56); Albumin, Serum 2.3 g/dL (3.2-5.0); Alkaline Phosphatase 182 U/L (45-117); Anion Gap 4 (5-15); BUN 8 mg/dL (7-18); BUN/Creat Ratio 10.4 RATIO (10-20); Calcium,Total 8.5 mg/dL (8.5-10.1); Chloride 104 mmol/L (98-107); Creatinine, Serum 0.77 mg/dL (0.55-1.02); EST Glomerular Filtration Rate 79 mL/min (>60); Est Glom Filt Rate - Afr Amer 95 mL/min (>60); Estimated Creatinine Clearance 63.01 ml/min; Globulin 4.3 g/dL (2.2-4.2); Glucose 288 mg/dL (74-106); Potassium 3.8 mmol/L (3.5-5.1); Protein, Total 6.6 g/dL (6.4-8.2); Sodium Level 135 mmol/L (136-145)
[2023-12-30] MEDS: Insulin Lispro 100 UNIT/ML INSULN.PEN SC ×2 (07:34→11:07)
[2023-12-30 07:35] VITALS: PULSE 71
[2023-12-30] MEDS: Insulin Lispro 100 UNIT/ML INSULN.PEN 8 UNIT SC ×2 (07:35→11:07)
[2023-12-30] MEDS: Metoprolol(XL)Succ 100 MG Tablet PO (07:35)
[2023-12-30] MEDS: Tolterodine Tartrate 4 MG CAP.SA PO (07:36)
[2023-12-30] MEDS: Pantoprazole Sodium 40 MG Tablet PO (07:36)
[2023-12-30] MEDS: Folic Acid 1 MG Tablet 2 MG PO (07:36)
[2023-12-30] MEDS: Nystatin Powder 15gm Bottle 1 APPLIC TOPICAL (07:36)
[2023-12-30] MEDS: Escitalopram Oxalate 10 MG Tablet PO (07:36)
[2023-12-30] MEDS: Losartan Potassium 100 MG Tablet PO (07:36)
[2023-12-30 07:56] LABS: Bedside Glucose 276 mg/dL (74-106)
[2023-12-30 08:36] VITALS: BP 152/67; PULSE 71; RESP 16; TEMP 36.4; O2SAT 96
[2023-12-30 08:41] VITALS: O2SAT 91; O2SAT 96
--- NOTE | 2023-12-30 09:07 | PCM.PN.SRG ---
Subjective Subjective Patient seen and examined during AM rounds. She is found sleeping on my arrival to the room. She does report that her abdominal pain is improved. She states that she had limited opportunity to try a diet because her dinner last evening came cold and the salad came without dressing but when she did try have it she did not experience any nausea. She shares she has not been passing any gas and has not had a bowel movement since surgery. She does remain on oxygen. Objective Data Objective Data Vital Signs: Vital Signs Temp Pulse Resp BP Pulse Ox O2 Del Method O2 Flow Rate 97.6 F L 71 16 152/67 H 96 Room Air 2 12/30/23 08:36 12/30/23 08:36 12/30/23 08:36 12/30/23 08:36 12/30/23 08:41 12/30/23 08:36 12/30/23 03:06 Oxygen Flow Rate (L/min) 2 Oxygen Delivery Method Room Air Weight: 182 lb 15.739 oz Body Mass Index (BMI) 34.5 Intake & Output: Intake and Output for Last 24 Hours 12/28/23 12/29/23 12/30/23 23:59 23:59 23:59 Intake Total 2428.16 / 2428.16 3025.00 / 3025.00 Balance 2428.16 / 2428.16 3025.00 / 3025.00 Lab / Micro Data 12/29/23 07:15 12/30/23 04:47 Labs: Laboratory Results - last 24 hr 12/29/23 11:07: POC Glucose 263 H 12/29/23 16:17: POC Glucose 376 H 12/29/23 20:34: POC Glucose 239 H 12/30/23 04:47: Sodium 135 L, Potassium 3.8, Chloride 104, Carbon Dioxide 27.0, Anion Gap 4 L, BUN 8, Creatinine 0.77, Estim Creat Clear Calc 63.01, Est GFR (MDRD) Af Amer 95, Est GFR (MDRD) Non-Af 79, BUN/Creatinine Ratio 10.4, Glucose 288 H, Calcium 8.5, Total Bilirubin 1.50 H, Direct Bilirubin 1.10 H, AST 166 H, ALT 238 H, Alkaline Phosphatase 182 H, Total Protein 6.6, Albumin 2.3 L, Globulin 4.3 H 12/30/23 07:32: POC Glucose 276 H Radiography Diagnostic Testing: Radiology Impression Endo Retro Cholangiopancreatogram 12/28/23 13:15 IMPRESSION: CBD stenting. Electronically Signed: Jean Rodriguez MD at 9:17 EDT , Cholangiogram 12/28/23 15:20 IMPRESSION: CBD stent and stent in the pancreatic duct. Electronically Signed: Jean Rodriguez MD at 9:19 EDT , Physical Exam Const oriented x3 and no apparent distress Resp normal respiratory effort Resp Narrative: Nasal cannula in place GI GI Narrative: Mildly distended, operative dressings intact without strikethrough and when these are removed Steri-Strips remain intact. All wounds appear well-approximated without drainage Assessment & Plan Assessment/Plan (1) Choledocholithiasis: PLAN: Patient is a 73-year-old female admitted overnight with signs and symptoms consistent with diagnosis of choledocholithiasis. Now status post ERCP followed by laparoscopic cholecystectomy, 12/28/2023. She is overall improving as expected postoperative day 2. She has had progress with her abdominal discomfort and her LFTs are downtrending nicely. She does confirm tolerance of a diet but has had limited intake due to her personal preferences. Her main issue remains a need for supplemental oxygen. We could consider a dose of a diuretic as she did receive a fair amount of fluid perioperatively. If this issue is resolved, patient would be cleared from a surgical standpoint for discharge home. I have laid out expectations for wound care as well as outpatient follow-up. Patient denies any further questions at this time. Chino Skelton MD General Surgery Endocrine Surgery Pager: [facility] [address] [place] [address], [facility], [address] [place] [address] Office: [phone] Charges/Coding Visit Charges Inpatient E&M: 90131 Subs Hosp L2
--- NOTE | 2023-12-30 09:56 | PCM.DC ---
Discharge Instructions Diet Discharge Diet: Light diet - advance as tolerated and Low fat / Low cholesterol Activity Discharge Activity: Return to Normal Activity Weight Bearing Status: Weight bearing as tolerated Dressing / Incision Call your doctor if you observe: Fever of 101 or Higher, Coldness, Increased Pain, Numbness or Tingling, Change in Color, Inability to urinate, Inability to have a bowel movement, Using more than 1 pad per hour, Shortness of breath, Dizziness, Fainting spells, Swelling in the ankles, Chest pain, Prolonged hiccupping, Increased palpitations (irregular heartbeat) and Calf discomfort Follow Up Care When: IN 2 WEEKS Test Results: Test results from this visit will be discussed in further detail at your follow-up appointment, if applicable. Discharge Plan Admission Admit Date/Time: 12/28/23 01:22 Primary Reason for Your Visit: Acute on chronic cholecystitis, due to cholelithiasis with choledocholithia Attending Provider: Jj Whitfield Primary Care Provider: Brayan Arita Consulting Providers: Chino Skelton; Elmer Reveles Discharge Orders/Prescriptions Prescriptions: New oxycodone 5 mg tablet 2.5 mg PO Q4H PRN PRN (Reason: Pain Score 4-10) 3 Days Qty: 10 0RF Continued hydrochlorothiazide 12.5 mg capsule 12.5 mg PO DAILY gabapentin 300 mg capsule 300 mg PO QHS metoprolol succinate 100 mg tablet extended release 24 hr 100 mg PO DAILY oxybutynin chloride 10 mg tablet extended release 24hr 20 mg PO DAILY aspirin [Adult Low Dose Aspirin] 81 mg tablet,delayed release (DR/EC) 81 mg PO DAILY (DME) pen needle, diabetic [BD Ultra-Fine Tish Pen Needle] 32 gauge x 5/32 needle See Rx Instructions .ROUTE .MEDSUPPLY Qty: 100 5RF Rx Instructions: tid (DME) OneTouch Verio test strips Strip See Rx Instructions .Route Qty: 150 12RF Rx Instructions: 4 times per day fluticasone propionate 1 SPRAY spray,suspension 1 spray intranasal DAILY PRN (Reason: NASAL CONGESTION ) methotrexate sodium 2.5 MG tablet 20 mg PO TEJADA folic acid 1 mg tablet 2 mg PO DAILY albuterol sulfate [ProAir HFA] 90 mcg/actuation Hfa Aerosol Inhaler 2 puff INHALATION Q4H PRN (Reason: SHORTNESS OF BREATH ) losartan 100 mg tablet 100 mg PO DAILY escitalopram oxalate [Lexapro] 10 mg tablet 10 mg PO DAILY PRN (Reason: DEPRESSION ) esomeprazole magnesium [Nexium] 40 mg capsule,delayed release(DR/EC) 40 mg PO DAILY atorvastatin 20 mg tablet 20 mg PO DAILY verapamil 120 mg tablet extended release 120 mg PO QHS metaxalone 800 mg tablet 800 mg PO TID PRN (Reason: MUSCLE CRAMPS) Humulin R U-500 (Conc) Kwikpen 500 unit/mL (3 mL) insulin pen See Rx Instructions subcut TIDCM Rx Instructions: breakfast- 65 u, lunch 60 u, dinner 24 u subcutaneously 3 times daily with meals Referrals / Follow Up: Chino Skelton MD [Med Staff - Active Staff] - Within 2 Weeks Fidel Olivas DO [Med Staff - Active Staff] - Within 1 Month Brayan Arita MD [Primary Care Provider] - Disposition Disposition (needs filled in before D/C Order can be placed): Home, Self Care
[2023-12-30 10:36] LABS: Mucous, Urine 0 SEEN /hpf (<or=2+); Red Blood Cells-Urine 0 SEEN /hpf (0-5); White Blood Cells 0 SEEN /hpf (0-5)
[2023-12-30 11:04] LABS: Color, Urine Yellow (Yellow); Glucose, Dipstick 1000 mg/dl (Normal); Ketone-Dipstick 5 mg/dl (Negative); Leukocyte Esterase-Dipstick Negative /ul (Negative); Nitrite-Dipstick Negative (Negative); Occult Blood-Urine Negative /ul (Negative); Protein-Dipstick 15 mg/dl (Negative); Specific Gravity, Urine 1.015 (1.002-1.030); Urine Bilirubin Dipstick Negative (Negative); Urine Clarity Sl. Cloudy (Clear); Urine Urobilinogen 1 mg/dl (Normal)
[2023-12-30 11:19] VITALS: BP 127/51; PULSE 72; RESP 16; TEMP 36.5; O2SAT 92
[2023-12-30 11:26] LABS: Bedside Glucose 285 mg/dL (74-106)
[2023-12-30 11:35] LABS: Bacteria 1+ /hpf (None Seen); Squamous Epithelial Cells - UA 0-5 SEEN /hpf (5-10)
--- NOTE | 2023-12-30 12:12 | DS.PCM_ITS ---
Providers Date of Admission: 12/28/23 Primary Care Physician: Dr. Brayan Arita MD Consultations 12/28/23 03:36 Consult: Gastroenterology Routine Consulting Provider: [facility] Reason for Consult: Choledocholithiasis EMERGENT Consult: No Notified: Yes Date Notified: 12/28/23 Time Notified: 06:47 Method of Notification: Text Consult: General Surgery Routine Consulting Provider: Chino Skelton Reason for Consult: Choledocholithiasis EMERGENT Consult: No Notified: Yes Date Notified: 12/28/23 Time Notified: 01:26 Method of Notification: ED Physician Initiated Reason For Visit: CHOLEDOCHOLITHIASIS Diagnosis Discharge Diagnosis (1) Choledocholithiasis: Status: Acute Code(s): K80.50 - Calculus of bile duct without cholangitis or cholecystitis without obstruction Plan 73-year-old female admitted with 2-day history of RUQ abdominal pain with radiation to back, itching. She has history of gallstones. Had appendectomy and hysterectomy in the past. Unable to eat with throwing up. Acute on chronic cholecystitis with choledocholithiasis: Patient admitted on [facility] floor on IV fluid, antiemetic and pain control. Patient evaluated by inspector and mender and the surgeon. Plan for ERCP and lap jayant Gallbladder ultrasound shows cholelithiasis. Abdomen pelvis shows cholelithiasis with choledocholithiasis. Mild RUQ tenderness present. ERCP 12/28/2023 impressions : - The entire main bile duct was dilated, with a stone causing an obstruction. - Choledocholithiasis was found. Complete removal was accomplished by biliary sphincterotomy and balloon extraction. - A biliary sphincterotomy was performed. - The biliary tree was swept. - A pancreatic sphincterotomy was performed. - The ventral pancreatic duct was swept. - One temporary stent was placed into the ventral pancreatic duct. - One temporary stent was placed into the common bile duct. Subsequently patient had laparoscopic cholecystectomy with intraoperative cholangiogram. Evidence of chronic cholecystitis with mild GB wall thickening. Liver with evidence of Gary-Edwar Jalen capsular adhesion. Cholangiogram shows antegrade flow of contrast into duodenum without obstruction. Obstructive jaundice with elevated liver chemistry, acute liver injury due to acute on cholecystitis with choledocholithiasis * Mild improvement in transaminases and alkaline phosphatase. Total bilirubin went up 2.6-3.0. Baseline 0.2. * Monitor liver chemistry 12/28: Improvement in total bilirubin. Bilirubin ALT AST alkaline phosphatase. 12/29: Improvement in total bilirubin 1.5, direct 1.1, and similarly improvement in transaminases and alkaline phosphatase. Patient pain is well-controlled. On home qualification oxygen testing, walking pulse oximetry she does not need oxygen. Mild hypoxia resolved. Advised to follow-up with surgeon in 2 weeks and GI in 4 weeks. Hypoglycemia and a type II diabetic * Patient normally takes U-500. Did have blood sugar in the 30s. Did receive half amp of D50 and currently blood sugars are better. Subsequent glucose levels show improvement, glucose 176, A1c 7.5. Accu-Chek last 188. * 12/28: Glucose is high at 225. Patient had Humalog insulin 10 units yesterday one-time dose. Started on scheduled Humalog insulin with meals. Currently on full liquid diet advance to soft diet. 12/29 hypoglycemia resolved. Lipase 28. Patient on home dose of insulin. Chronic conditions * GERD: Continue PPI * Depression: Continue with escitalopram * Hypertension: Continue with HCTZ, losartan, verapamil, metoprolol succinate. * Overactive bladder: Continue with oxybutynin. VTE prophylaxis: Moderate risk. SCDs for now. Holding off on chemical prophylaxis in light of potential procedures. CODE STATUS: Addressed with the patient. Patient wishes to be full code Laboratory Results 12/29/23 16:17: POC Glucose 376 H 12/29/23 20:34: POC Glucose 239 H 12/30/23 04:47: Sodium 135 L, Potassium 3.8, Chloride 104, Carbon Dioxide 27.0, Anion Gap 4 L, BUN 8, Creatinine 0.77, Estim Creat Clear Calc 63.01, Est GFR (MDRD) Af Amer 95, Est GFR (MDRD) Non-Af 79, BUN/Creatinine Ratio 10.4, Glucose 288 H, Calcium 8.5, Total Bilirubin 1.50 H, Direct Bilirubin 1.10 H, AST 166 H, ALT 238 H, Alkaline Phosphatase 182 H, Total Protein 6.6, Albumin 2.3 L, G lobulin 4.3 H 12/30/23 07:32: POC Glucose 276 H 12/30/23 09:57: Urine Color Yellow, Urine Clarity Sl. Cloudy, Urine pH 6.0, Ur Specific Orient 1.015, Urine Protein 15 H, Urine Glucose (UA) 1000 H, Urine Ketones 5 H, Urine Occult Blood Negative, Urine Nitrite Negative, Urine Bilirubin Negative, Urine Urobilinogen 1 H, Ur Leukocyte Esterase Negative, Urine RBC 0 SEEN, Urine WBC 0 SEEN, Ur Squamous Epith Cells 0-5 SEEN, Urine Bacteria 1+, Urine Mucus 0 SEEN 12/30/23 11:06: POC Glucose 285 H Clinical Impression(s) from Imaging Studies Gallbladder Ultrasound 12/27/23 21:19 IMPRESSION: Cholelithiasis. Abdomen/Pelvis CT 12/27/23 22:58 IMPRESSION: Cholelithiasis with choledocholithiasis. Medications at Discharge Home Medications fluticasone propionate 50 mcg/actuation nasal spray,suspension 1 spray intranasal DAILY PRN NASAL CONGESTION 01/30/14 methotrexate sodium 2.5 mg tablet 20 mg PO TEJADA BREAST CANCER 04/16/17 albuterol sulfate 90 mcg/actuation aerosol inhaler (ProAir HFA) 2 puff inhalation Q4H PRN SHORTNESS OF BREATH 06/05/21 escitalopram oxalate 10 mg tablet (Lexapro) 10 mg PO DAILY PRN DEPRESSION 06/05/21 folic acid 1 mg tablet 2 mg PO DAILY SUPPLEMENT 06/05/21 hydrochlorothiazide 12.5 mg capsule 12.5 mg PO DAILY BLOOD PRESSURE 06/05/21 losartan 100 mg tablet 100 mg PO DAILY BLOOD PRESSURE 06/05/21 aspirin 81 mg tablet,delayed release (Adult Low Dose Aspirin) 81 mg PO DAILY HEART HEALTH 02/05/22 gabapentin 300 mg capsule 300 mg PO QHS NEUROPATHY 02/05/22 oxybutynin chloride 10 mg tablet,extended release 24 hr 20 mg PO DAILY OVERACTIVE BLADDER 02/05/22 metoprolol succinate 100 mg tablet,extended release 24 hr 100 mg PO DAILY BLOOD PRESSURE 02/24/22 esomeprazole magnesium 40 mg capsule,delayed release (Nexium) 40 mg PO DAILY ACID REFLUX 11/26/22 pen needle, diabetic 32 gauge x 5/32 (BD Ultra-Fine Tish Pen Needle) #100 ea 11/26/22 atorvastatin 20 mg tablet 20 mg PO DAILY CHOLESTEROL 06/21/23 metaxalone 800 mg tablet 800 mg PO TID PRN MUSCLE CRAMPS 06/21/23 verapamil 120 mg tablet,extended release 120 mg PO QHS BLOOD PRESSURE 06/21/23 blood sugar diagnostic (OneTouch Verio test strips) #150 ea 11/15/23 insulin regular hum U-500 conc 500 unit/mL(3 mL) subcut pen (Humulin R U-500 (Conc) Insulin Kwikpen) See Rx Instructions subcut TIDCM diabetis 12/28/23 oxycodone 5 mg tablet 2.5 mg (1/2 x 5 mg) PO Q4H PRN PRN Pain Score 4-10 3 days #10 tabs 12/30/23 Physical Exam Narrative Seen and examined. Mild expected postop RUQ abdominal discomfort otherwise no pain. Liver chemistry total bilirubin improving. Status post ERCP and lap jayant yesterday. No fever. Passed flatus. Hypoxia resolved. Physical exam General: Alert, Oriented x3, Cooperative HEENT: Atraumatic, PERRLA, EOMI, Normocephalic Oral: No Gingival or Mucosal Lesions/ Ulcerations Neck: Supple, No JVD, Negative Carotid Bruits Chest wall/Lungs: Air entry diminished in bilateral lung bases. No crepitation/rhonchi no tachypnea or hypoxia Cardiovascular: Regular rate, Regular Rhythm, Normal S1, Normal S2, No M/G/R Abdomen: Bowel Sounds Present, Soft, mild expected postop right upper quadrant tenderness. : No dysuria. No renal angle tenderness. No suprapubic tenderness. Extremities: No edema, Capillary Refill Less than 3 Seconds Skin: No rashes, No breakdown Musculoskeletal: No Tenderness to Palpation of Joints or Extremities Neurological: Cranial nerves II-XII grossly intact, DTR 2+/4. No acute focal neurological deficit. Psych/Mental Status: Normal Affect, Appropriate. Weight / BMI Weight Weight: 182 lb 15.739 oz Body Mass Index (BMI) 34.5 ABG / Lab / Microbiology Data 12/29/23 07:15 12/30/23 04:47 Laboratory: Laboratory Results - last 24 hr 12/29/23 16:17: POC Glucose 376 H 12/29/23 20:34: POC Glucose 239 H 12/30/23 04:47: Sodium 135 L, Potassium 3.8, Chloride 104, Carbon Dioxide 27.0, Anion Gap 4 L, BUN 8, Creatinine 0.77, Estim Creat Clear Calc 63.01, Est GFR (MDRD) Af Amer 95, Est GFR (MDRD) Non-Af 79, BUN/Creatinine Ratio 10.4, Glucose 288 H, Calcium 8.5, Total Bilirubin 1.50 H, Direct Bilirubin 1.10 H, AST 166 H, ALT 238 H, Alkaline Phosphatase 182 H, Total Protein 6.6, Albumin 2.3 L, G lobulin 4.3 H 12/30/23 07:32: POC Glucose 276 H 12/30/23 09:57: Urine Color Yellow, Urine Clarity Sl. Cloudy, Urine pH 6.0, Ur Specific Orient 1.015, Urine Protein 15 H, Urine Glucose (UA) 1000 H, Urine Ketones 5 H, Urine Occult Blood Negative, Urine Nitrite Negative, Urine Bilirubin Negative, Urine Urobilinogen 1 H, Ur Leukocyte Esterase Negative, Urine RBC 0 SEEN, Urine WBC 0 SEEN, Ur Squamous Epith Cells 0-5 SEEN, Urine Bacteria 1+, Urine Mucus 0 SEEN 12/30/23 11:06: POC Glucose 285 H D/C Instructions Discharge Diet: Light diet - advance as tolerated and Low fat / Low cholesterol Weight Bearing Status: Weight bearing as tolerated Call your doctor if you observe: Fever of 101 or Higher, Coldness, Increased Pain, Numbness or Tingling, Change in Color, Inability to urinate, Inability to have a bowel movement, Using more than 1 pad per hour, Shortness of breath, Dizziness, Fainting spells, Swelling in the ankles, Chest pain, Prolonged hiccupping, Increased palpitations (irregular heartbeat) and Calf discomfort When: IN 2 WEEKS Meaningful Use Info Meaningful Use Meaningful Use Diagnoses (Choose all that apply): None applicable Ischemic Stroke Statin Dosing Therapy Reference: STATIN DOSE THERAPY REFERENCE: * Patients > 75 years receive moderate or high dose statin therapy. * Patients 75 years or YOUNGER should receive HIGH intensity statin dose unless contraindicated. You will be required to document reason for non-treatment if statin daily dose does not meet guidelines. HIGH DOSE STATIN THERAPY DAILY Atorvastatin > than or = to 40 mg Rosuvastatin > than or = to 20 mg Amlodipine + Atorvastatin > than or = to 2.5/40 mg Ezetimibe + Simvastatin 10/80 mg Simvastatin 80mg Discharge Plan Admission Admit Date/Time: 12/28/23 01:22 Primary Reason for Your Visit: Acute on chronic cholecystitis, due to cholelithiasis with choledocholithia Attending Provider: Jj Whitfield Primary Care Provider: Brayan Arita Consulting Providers: Chino Skelton; Elmer Reveles Discharge Orders/Prescriptions Prescriptions: New oxycodone 5 mg tablet 2.5 mg PO Q4H PRN PRN (Reason: Pain Score 4-10) 3 Days Qty: 10 0RF Continued hydrochlorothiazide 12.5 mg capsule 12.5 mg PO DAILY gabapentin 300 mg capsule 300 mg PO QHS metoprolol succinate 100 mg tablet extended release 24 hr 100 mg PO DAILY oxybutynin chloride 10 mg tablet extended release 24hr 20 mg PO DAILY aspirin [Adult Low Dose Aspirin] 81 mg tablet,delayed release (DR/EC) 81 mg PO DAILY (DME) pen needle, diabetic [BD Ultra-Fine Tish Pen Needle] 32 gauge x 5/32 needle See Rx Instructions .ROUTE .MEDSUPPLY Qty: 100 5RF Rx Instructions: tid (DME) OneTouch Verio test strips Strip See Rx Instructions .Route Qty: 150 12RF Rx Instructions: 4 times per day fluticasone propionate 1 SPRAY spray,suspension 1 spray intranasal DAILY PRN (Reason: NASAL CONGESTION ) methotrexate sodium 2.5 MG tablet 20 mg PO TEJADA folic acid 1 mg tablet 2 mg PO DAILY albuterol sulfate [ProAir HFA] 90 mcg/actuation Hfa Aerosol Inhaler 2 puff INHALATION Q4H PRN (Reason: SHORTNESS OF BREATH ) losartan 100 mg tablet 100 mg PO DAILY escitalopram oxalate [Lexapro] 10 mg tablet 10 mg PO DAILY PRN (Reason: DEPRESSION ) esomeprazole magnesium [Nexium] 40 mg capsule,delayed release(DR/EC) 40 mg PO DAILY atorvastatin 20 mg tablet 20 mg PO DAILY verapamil 120 mg tablet extended release 120 mg PO QHS metaxalone 800 mg tablet 800 mg PO TID PRN (Reason: MUSCLE CRAMPS) Humulin R U-500 (Conc) Kwikpen 500 unit/mL (3 mL) insulin pen See Rx Instructions subcut TIDCM Rx Instructions: breakfast- 65 u, lunch 60 u, dinner 24 u subcutaneously 3 times daily with meals Referrals / Follow Up: Chino Skelton MD [Med Staff - Active Staff] - Within 2 Weeks Fidel Olivas DO [Med Staff - Active Staff] - Within 1 Month Brayan Arita MD [Primary Care Provider] - Disposition Disposition (needs filled in before D/C Order can be placed): Home, Self Care Charges/Coding Visit Charges Inpatient E&M: 38928 Disch Hosp >30min
--- NOTE | 2023-12-30 12:53 | CASEMGMT ---
CAROL CM into pt room, pt reports she is ready for dc. She states she will go back to her dtrs home and denies any homegoing needs at this time.
== END 2023-12-30 16:00 | disposition home or self-care (01) | DRG 419 ==
LOC: ED 12-28 00:27 → MS3 12-28 02:03
PROVIDERS: Anesthesiology; Internal Medicine Gastroenterology; Physician Assistant; Surgery; Emergency Provider Emergency Medicine; PCP Family Medicine; Visit Provider Internal Medicine
PROC: 0FC98ZZ Extirpation of Matter from Common Bile Duct, Via Natural or Artificial Opening Endoscopic (ICD-10-PCS; CPT 43260; principal; 2023-12-28 12:05)
PROC: 0FT44ZZ Resection of Gallbladder, Percutaneous Endoscopic Approach (ICD-10-PCS; CPT 47610; principal; 2023-12-28 14:00)
DX: K80.67 Calculus of gallbladder and bile duct with acute and chronic cholecystitis with obstruction (principal); E11.649 Type 2 diabetes mellitus with hypoglycemia without coma; E11.22 Type 2 diabetes mellitus with diabetic chronic kidney disease; J44.9 Chronic obstructive pulmonary disease, unspecified; N18.30 Chronic kidney disease, stage 3 unspecified; E11.40 Type 2 diabetes mellitus with diabetic neuropathy, unspecified; Z79.4 Long term (current) use of insulin; I12.9 Hypertensive chronic kidney disease with stage 1 through stage 4 chronic kidney disease, or unspecified chronic kidney disease; F32.A Depression, unspecified; K76.89 Other specified diseases of liver; K21.9 Gastro-esophageal reflux disease without esophagitis; E66.9 Obesity, unspecified; N32.81 Overactive bladder; R09.02 Hypoxemia; Z68.36 Body mass index [BMI] 36.0-36.9, adult; Z90.49 Acquired absence of other specified parts of digestive tract; Z79.82 Long term (current) use of aspirin; Z79.899 Other long term (current) drug therapy; Z87.891 Personal history of nicotine dependence
CPT/HCPCS: 36415; 74177; 74300; 74330; 76000; 76705; 80048; 80053; 80076; 81001; 82248; 82962; 83036; 83690; 85025; 88304; 93005; 99284; J7030; J7050; J7120; Q9967; A4216; J2405; J7799

== ENCOUNTER 2024-02-21 00:10 | Emergency (ER) | payer MEDICARE, SELFPAY ==
[2024-02-21 00:13] VITALS: BP 154/122; PULSE 60; RESP 14; TEMP 36.2; O2SAT 97; BMI 34.5
[2024-02-21 00:32] LABS: Bedside Glucose 54 mg/dL (74-106)
[2024-02-21] MEDS: Dextrose 10%-Water 250 ML 999 ML IV (00:56)
[2024-02-21 00:57] VITALS: BP 154/87; PULSE 75; RESP 18; O2SAT 99
[2024-02-21 01:08] LABS: Bedside Glucose 42 mg/dL (74-106)
[2024-02-21 01:09] LABS: Absolute Lymphocyte Count 1.93 X10^3/uL (0.83-4.51); Absolute Neutrophil Count 5.5 X10^3/uL (2.0-7.7); Basophil# 0.05 X10^3/uL; Basophil% 0.6 % (0-1); Eosinophil# 0.14 X10^3/uL; Eosinophils% 1.7 % (0-5); Hematocrit 37.3 % (37-47); Hemoglobin 11.7 g/dL (12.0-15.0); Lymphocyte # 1.93 X10^3/ul (0.83-4.51); Lymphocyte % 23.2 % (19-41); Mean Corp Hgb Conc 31.4 g/dL (32-36); Mean Corpuscular Hgb 29.8 pg (27.0-32.0); Mean Corpuscular Volume 94.9 fL (81-99); Mean Platelet Vol. 10.1 fl (6.2-12.0); Monocyte# 0.64 X10^3/uL; Monocyte% 7.7 % (0-10); NRBC Flagged by Analyzer 0 % (0-5); Neutrophil # 5.46 X10^3/uL (2.7-7.7); Neutrophil % 65.5 % (47-70); Platelet Count 307 K/mm3 (150-450); RBC Distribution Width CV 14.1 % (11.6-14.6); RBC Distribution Width SD 49.3 fl (35.1-43.9); Red Blood Count 3.93 M/mm3 (4.2-5.4); White Blood Count 8.3 K/mm3 (4.4-11.0)
[2024-02-21 01:22] LABS: Anion Gap 10 (5-15); BUN 21 mg/dL (7-18); BUN/Creat Ratio 16.4 RATIO (10-20); Calcium,Total 8.8 mg/dL (8.5-10.1); Chloride 108 mmol/L (98-107); Creatinine, Serum 1.28 mg/dL (0.55-1.02); EST Glomerular Filtration Rate 44 mL/min (>60); Est Glom Filt Rate - Afr Amer 53 mL/min (>60); Estimated Creatinine Clearance 40.95 ml/min; Glucose 119 mg/dL (74-106); Potassium 3.2 mmol/L (3.5-5.1); Sodium Level 141 mmol/L (136-145)
[2024-02-21 01:38] LABS: Bedside Glucose 128 mg/dL (74-106)
[2024-02-21 02:46] LABS: Bedside Glucose 155 mg/dL (74-106)
[2024-02-21 03:00] VITALS: BP 124/71; PULSE 65; RESP 16; O2SAT 99
[2024-02-21 03:07] LABS: Color, Urine Yellow (Yellow); Glucose, Dipstick 100 mg/dl (Normal); Ketone-Dipstick Negative (Negative); Leukocyte Esterase-Dipstick 25 /ul (Negative); Nitrite-Dipstick Negative (Negative); Occult Blood-Urine Negative /ul (Negative); Protein-Dipstick 15 mg/dl (Negative); Urine Bilirubin Dipstick Negative (Negative); Urine Clarity Clear (Clear); Urine Urobilinogen Normal (Normal)
[2024-02-21 03:40] LABS: Red Blood Cells-Urine 0-5 SEEN /hpf (0-5); Squamous Epithelial Cells - UA 5-10 SEEN /hpf (5-10); White Blood Cells 5-10 SEEN /hpf (0-5)
[2024-02-21 03:41] LABS: Bacteria RARE /hpf (None Seen); Hyaline Cast 5-10 SEEN /lpf (0-5); Mucous, Urine 2+ /hpf (<or=2+)
--- NOTE | 2024-02-21 03:54 | EX.ED.DYSGE1 ---
HPI History of Present Illness Chief Complaint: Hypoglycemia Informant: parent and EMS Narrative Narrative: Patient is a 73-year-old female with past medical history of hypertension hyperlipidemia and insulin-dependent diabetes. She states that she takes her insulin 3 times a day but that it is at a set dose and she is not adjusting the amount of insulin based on her blood sugar at the time. Reportedly patient contacted her daughter who lives in [place] and was not making sense on the phone and therefore she had contacted police to perform a well check. Reportedly police saw the patient in her house but she was acting confused and would not open the door and therefore they contacted EMS. When they arrived EMS confirmed she was confused but still awake and they checked her blood sugar and it was low at approximately 30 and therefore she was given dextrose and transported to the hospital. Upon arrival the patient is still confused but mentating better. She does states she went out performing errands today and she states that she did eat but it was later lunch/early dinner. She states she believes she took her medications but cannot recall what dose that she used or when last she gave herself the insulin. [facility] Medical History (Updated 02/21/24 @ 05:[address] Omar Arambula, ) Closed left hip fracture Osteoporosis Former smoker Sleep apnea Asthma COPD (chronic obstructive pulmonary disease) Essential hypertension History of gastrostomy tube placement Wears glasses Wears dentures History of Clostridium difficile infection Cancer Anxiety Easy bruising Injury of head and neck Restless legs Loss of consciousness Dietary restriction Shortness of breath on exertion Chronic cough History of stress test History of edema Leg cramps History of Holter monitoring Cardiology follow-up encounter History of vaginal delivery Urinary incontinence Internal hemorrhoids History of cervical cancer Diverticulosis Obesity Vision problems Pancreatitis Osteoarthritis Neuropathy IBS (irritable bowel syndrome) Recurrent infections Hives Calcium deficiency Gastrointestinal problem Gall stone Chronic bronchitis Carpal tunnel syndrome Cataract Breast cancer Breast lump UTI (urinary tract infection) Back problem Arthritis Seasonal allergies GERD (gastroesophageal reflux disease) OAB (overactive bladder) Rhabdomyolysis (04/2017) MSSA (methicillin susceptible Staphylococcus aureus) pneumonia Allergic rhinitis Diabetes mellitus, type II Inflammatory polyarthritis Home Medications ?Medication ?Instructions ?Recorded ?Last Taken ?Type fluticasone propionate 50 1 spray intranasal DAILY PRN NASAL 01/30/14 06/20/23 History mcg/actuation nasal CONGESTION spray,suspension methotrexate sodium 2.5 mg tablet 20 mg PO TEJADA BREAST CANCER 04/16/17 06/19/23 History albuterol sulfate 90 mcg/actuation 2 puff inhalation Q4H PRN 06/05/21 11/17/23 History aerosol inhaler (ProAir HFA) SHORTNESS OF BREATH escitalopram oxalate 10 mg tablet 10 mg PO DAILY PRN DEPRESSION 06/05/21 12/27/23 13:00 History (Lexapro) folic acid 1 mg tablet 2 mg PO DAILY SUPPLEMENT 06/05/21 12/27/23 13:00 History hydrochlorothiazide 12.5 mg capsule 12.5 mg PO DAILY BLOOD PRESSURE 06/05/21 12/27/23 13:00 History losartan 100 mg tablet 100 mg PO DAILY BLOOD PRESSURE 06/05/21 12/27/23 13:00 History aspirin 81 mg tablet,delayed 81 mg PO DAILY HEART HEALTH 02/05/22 12/27/23 13:00 History release (Adult Low Dose Aspirin) gabapentin 300 mg capsule 300 mg PO QHS NEUROPATHY 02/05/22 12/26/23 21:00 History oxybutynin chloride 10 mg 20 mg PO DAILY OVERACTIVE BLADDER 02/05/22 12/27/23 13:00 History tablet,extended release 24 hr metoprolol succinate 100 mg 100 mg PO DAILY BLOOD PRESSURE 02/24/22 12/27/23 13:00 History tablet,extended release 24 hr esomeprazole magnesium 40 mg 40 mg PO DAILY ACID REFLUX 11/26/22 12/27/23 13:00 History capsule,delayed release (Nexium) pen needle, diabetic 32 gauge x #100 ea 11/26/22 Unknown Rx (BD Ultra-Fine Tish Pen Needle) atorvastatin 20 mg tablet 20 mg PO DAILY CHOLESTEROL 06/21/23 12/27/23 13:00 History metaxalone 800 mg tablet 800 mg PO TID PRN MUSCLE CRAMPS 06/21/23 Unknown History verapamil 120 mg tablet,extended 120 mg PO QHS BLOOD PRESSURE 06/21/23 12/26/23 21:00 History release blood sugar diagnostic (OneTouch #150 ea 11/15/23 Unknown Rx Verio test strips) insulin regular hum U-500 conc 500 See Rx Instructions subcut TIDCM 12/28/23 12/27/23 17:30 History unit/mL(3 mL) subcut pen (Humulin diabetis R U-500 (Conc) Insulin Kwikpen) oxycodone 5 mg tablet 2.5 mg (1/2 x 5 mg) PO Q4H PRN PRN 12/30/23 Unknown Rx Pain Score 4-10 3 days #10 tabs Allergy/AdvReac Type Severity Reaction Status Date / Time JESENIA Inhibitors Allergy Intermediate Cough Verified 01/12/24 13:16 adhesive tape Allergy Intermediate blisters Verified 01/12/24 13:16 dulaglutide (From Trulicity) Allergy Intermediate Gastropares Verified 01/12/24 13:16 is chondroitin sulfate A (From Allergy Rash Verified 01/12/24 13:16 DuoVisc Visco Elastic) hyaluronic acid (From Allergy Rash Verified 01/12/24 13:16 DuoVisc Visco Elastic) NSAIDS (Non-Steroidal Allergy Other Verified 01/12/24 13:16 Anti-Inflamma Family History Other Alcohol abuse Anxiety Arthritis Asthma defect COPD (chronic obstructive pulmonary disease) Cancer Diabetes High cholesterol Hypertension Seizures Surgical History S/P cholecystectomy History of nasal cauterization History of colonoscopy History of appendectomy History of left mastectomy History of hysterectomy Social History Smoking Status: Former smoker alcohol intake: current alcohol intake frequency: 0-2 drinks per day substance use type: does not use what type of physical activity do you participate in: none ROS ROS ED Review of Systems ROS Unobtainable: other Details: Please note review of systems may be unreliable as patient is confused Constitutional Constitutional ED: Denies chills or fever(s) Eyes Eyes: Denies blurry vision or change in vision ENT ENT ED: Denies rhinorrhea or sore throat Cardiovascular Cardiovascular: Denies chest pain or palpitations Respiratory/Chest Respiratory/Chest: Denies cough or dyspnea Gastrointestinal Gastrointestinal: Denies abdominal pain, diarrhea, nausea or vomiting Genitourinary Genitourinary ED: Denies dysuria or hematuria Musculoskeletal Musculoskeletal: Denies myalgias Integumentary Denies rash Neurologic Neurologic: Denies headache(s), paresthesias or weakness Hematologic/Lymphatic Hematologic/Lymphatic: Denies easy bleeding or easy bruising EXAM Physical Exam Const Vital Signs: 02/21/24 00:13 02/21/24 00:57 02/21/24 00:57 Temperature 97.2 F L Temperature Source Temporal Pulse Rate 60 75 Respiratory Rate 14 18 Respiratory Effort Normal Respiratory Pattern Normal Blood Pressure 154/122 H 154/87 H Blood Pressure Mean 132 109 Pulse Ox 97 99 Oxygen Delivery Method Room Air Room Air 02/21/24 03:00 02/21/24 04:01 Temperature 97.9 F Temperature Source Pulse Rate 65 71 Respiratory Rate 16 18 Respiratory Effort Respiratory Pattern Blood Pressure 124/71 H 104/56 L Blood Pressure Mean 88 72 Pulse Ox 99 96 Oxygen Delivery Method Room Air Positive well nourished, well developed and obese General Appearance ED: well developed; Negative for pallor Nutritional Appearance: obese HEENT HEENT Narrative: Normocephalic atraumatic Eyes PERRL and EOMs intact bilaterally General Eye ED: Negative for scleral icterus Neck supple Neck Narrative: No nuchal rigidity or meningeal signs Chest Wall palpation of chest normal Chest Narrative: No bony deformity or crepitance palpated Resp normal respiratory effort and clear to auscultation bilaterally Resp Narrative: Breath sounds are diminished throughout but overall clear to auscultation without signs of distress Cardio regular rate and regular rhythm Rate: other Other Details: Radial and carotid pulses are equal and symmetric GI normal to inspection, nondistended, normoactive bowel sounds, non-tender, non-distended and no masses GI Narrative: No voluntary guarding or rigidity or pulsatile mass Auscultation: normoactive bowel sounds Palpation: soft Back/Spine Back/Spine Narrative: No bony deformity or step-off of the thoracic or lumbar spine no midline tenderness to palpation Extremity normal to inspection Extremity Narrative: No bony deformity or joint effusion noted Neuro CN's II-XII intact bilaterally and no sensory deficits noted Neuro Narrative: Patient has GCS of 14. She is awake but disoriented to time Cranial nerves II through XII are grossly intact without focal neurologic deficit Sensorium / Orientation: alert Psych Psych Narrative: Patient is a nervous/anxious affect Skin no rashes or lesions noted and no wounds General Skin Exam: Negative for jaundice or pallor MDM MDM MDM Narrative Medical decision making narrative: Patient arrived to the ER awake and protecting her airway with slight confusion but no other focal deficits to be concerned about stroke alert. She admits to taking her medication on a scheduled basis and not adjusting her dose to her blood sugar and at this time it is unknown if she took the proper amount of medication or an extra dose based on her mild confusion. In order to ensure that she does not need admitted for dextrose drip and that this is symptomatic hypoglycemia just secondary to medication administration basic blood work will be obtained and patient will have Accu-Cheks performed. Blood sugar upon arrival was better than squad but still low at approximately 55 and therefore she was given 25 g of D10. After receiving this her blood sugar did improve into the low 100s. Her blood work revealed no signs of leukocytosis or left shift there are no signs of acute kidney injury or electrolyte abnormality or UTI. After receiving the 25 g of D10 her blood sugar did remain in the low to mid 100s. With this improvement her mental status improved as well. Therefore at this time she does not have recurrent hypoglycemia and there are no overt signs of infection or electrolyte abnormality or acute kidney injury and so patient can be discharged home as her history and exam is indicating this was most likely hypoglycemia secondary to overmedication History & Record Review Discussion w/independent historian: Patient and Family Lab Data Attestation: I reviewed the patient's lab results. Labs: Laboratory Results - last 24 hr 02/21/24 02/21/24 02/21/24 00:13 00:30 00:48 WBC 8.3 RBC 3.93 L Hgb 11.7 L Hct 37.3 MCV 94.9 MCH 29.8 MCHC 31.4 L RDW Std Deviation 49.3 H RDW Coeff of Tom 14.1 Plt Count 307 MPV 10.1 Immature Gran % (Auto) 1.300 H Neut % (Auto) 65.5 Lymph % (Auto) 23.2 [place] % (Auto) 7.7 Eos % (Auto) 1.7 Baso % (Auto) 0.6 Absolute Neuts (auto) 5.5 Absolute Lymphs (auto) 1.93 Nucleated RBC % 0 Sodium 141 Potassium 3.2 L Chloride 108 H Carbon Dioxide 23.0 Anion Gap 10 BUN 21 H Creatinine 1.28 H Estim Creat Clear Calc 40.95 Est GFR (MDRD) Af Amer 53 L Est GFR (MDRD) Non-Af 44 L BUN/Creatinine Ratio 16.4 Glucose 119 H Calcium 8.8 Magnesium 2.0 Urine Color Urine Clarity Urine pH Ur Specific Curtis Urine Protein Urine Glucose (UA) Urine Ketones Urine Occult Blood Urine Nitrite Urine Bilirubin Urine Urobilinogen Ur Leukocyte Esterase Urine RBC Urine WBC Ur Squamous Epith Cells Urine Bacteria Hyaline Casts Urine Mucus POC Glucose 54 L 42 L* 02/21/24 02/21/24 02/21/24 01:16 02:27 02:54 WBC RBC Hgb Hct MCV MCH MCHC RDW Std Deviation RDW Coeff of Tom Plt Count MPV Immature Gran % (Auto) Neut % (Auto) Lymph % (Auto) [place] % (Auto) Eos % (Auto) Baso % (Auto) Absolute Neuts (auto) Absolute Lymphs (auto) Nucleated RBC % Sodium Potassium Chloride Carbon Dioxide Anion Gap BUN Creatinine Estim Creat Clear Calc Est GFR (MDRD) Af Amer Est GFR (MDRD) Non-Af BUN/Creatinine Ratio Glucose Calcium Magnesium Urine Color Yellow Urine Clarity Clear Urine pH 5.0 Ur Specific Curtis 1.020 Urine Protein 15 H Urine Glucose (UA) 100 H Urine Ketones Negative Urine Occult Blood Negative Urine Nitrite Negative Urine Bilirubin Negative Urine Urobilinogen Normal Ur Leukocyte Esterase 25 H Urine RBC 0-5 SEEN Urine WBC 5-10 SEEN Ur Squamous Epith Cells 5-10 SEEN Urine Bacteria RARE Hyaline Casts 5-10 SEEN Urine Mucus 2+ POC Glucose 128 H 155 H 02/21/24 03:45 WBC RBC Hgb Hct MCV MCH MCHC RDW Std Deviation RDW Coeff of Tom Plt Count MPV Immature Gran % (Auto) Neut % (Auto) Lymph % (Auto) [place] % (Auto) Eos % (Auto) Baso % (Auto) Absolute Neuts (auto) Absolute Lymphs (auto) Nucleated RBC % Sodium Potassium Chloride Carbon Dioxide Anion Gap BUN Creatinine Estim Creat Clear Calc Est GFR (MDRD) Af Amer Est GFR (MDRD) Non-Af BUN/Creatinine Ratio Glucose Calcium Magnesium Urine Color Urine Clarity Urine pH Ur Specific Curtis Urine Protein Urine Glucose (UA) Urine Ketones Urine Occult Blood Urine Nitrite Urine Bilirubin Urine Urobilinogen Ur Leukocyte Esterase Urine RBC Urine WBC Ur Squamous Epith Cells Urine Bacteria Hyaline Casts Urine Mucus POC Glucose 181 H Discharge Plan Triage Chief Complaint: Hypoglycemia ED Provider: Omar Arambula Dx/Rx/DC Orders Clinical Impression: Hypoglycemia, Insulin dependent diabetes mellitus, Hypertension Instructions: Hypoglycemia (Low Blood Sugar), Blood Sugar Check Steps Prescriptions: No Action hydrochlorothiazide 12.5 mg capsule 12.5 mg PO DAILY gabapentin 300 mg capsule 300 mg PO QHS metoprolol succinate 100 mg tablet extended release 24 hr 100 mg PO DAILY oxybutynin chloride 10 mg tablet extended release 24hr 20 mg PO DAILY aspirin [Adult Low Dose Aspirin] 81 mg tablet,delayed release (DR/EC) 81 mg PO DAILY (DME) pen needle, diabetic [BD Ultra-Fine Tihs Pen Needle] 32 gauge x 5/32 needle See Rx Instructions .ROUTE .MEDSUPPLY Qty: 100 5RF Rx Instructions: tid (DME) OneTouch Verio test strips Strip See Rx Instructions .Route Qty: 150 12RF Rx Instructions: 4 times per day fluticasone propionate 1 SPRAY spray,suspension 1 spray intranasal DAILY PRN (Reason: NASAL CONGESTION ) methotrexate sodium 2.5 MG tablet 20 mg PO TEJADA folic acid 1 mg tablet 2 mg PO DAILY albuterol sulfate [ProAir HFA] 90 mcg/actuation Hfa Aerosol Inhaler 2 puff INHALATION Q4H PRN (Reason: SHORTNESS OF BREATH ) losartan 100 mg tablet 100 mg PO DAILY escitalopram oxalate [Lexapro] 10 mg tablet 10 mg PO DAILY PRN (Reason: DEPRESSION ) esomeprazole magnesium [Nexium] 40 mg capsule,delayed release(DR/EC) 40 mg PO DAILY atorvastatin 20 mg tablet 20 mg PO DAILY verapamil 120 mg tablet extended release 120 mg PO QHS metaxalone 800 mg tablet 800 mg PO TID PRN (Reason: MUSCLE CRAMPS) Humulin R U-500 (Conc) Kwikpen 500 unit/mL (3 mL) insulin pen See Rx Instructions subcut TIDCM Rx Instructions: breakfast- 65 u, lunch 60 u, dinner 24 u subcutaneously 3 times daily with meals oxycodone 5 mg tablet 2.5 mg PO Q4H PRN PRN (Reason: Pain Score 4-10) 3 Days Qty: 10 0RF Primary Care Provider: Brayan Arita Referrals: Brayan Arita MD [Primary Care Provider] - Activity Restrictions/Additional Instructions: Please talk to your doctor about reducing your insulin dose as your workup today revealed no obvious causes for your drop in blood sugar other than the medication. Return to the ER should you have any further concerns Print Language: Portuguese Disposition Disposition: Home, Self Care Discharge Date/Time: 02/21/24 04:01
[2024-02-21 04:01] VITALS: BP 104/56; PULSE 71; RESP 18; TEMP 36.6; O2SAT 96
[2024-02-21 04:09] LABS: Bedside Glucose 181 mg/dL (74-106)
== END 2024-02-21 04:01 | disposition home or self-care (01) ==
PROVIDERS: Emergency Provider Emergency Medicine; PCP Family Medicine; Visit Provider Emergency Medicine
DX: E11.649 Type 2 diabetes mellitus with hypoglycemia without coma (principal); J44.9 Chronic obstructive pulmonary disease, unspecified; Z79.4 Long term (current) use of insulin; I10 Essential (primary) hypertension; R41.0 Disorientation, unspecified; E78.5 Hyperlipidemia, unspecified; Z79.82 Long term (current) use of aspirin; Z79.899 Other long term (current) drug therapy; Z87.891 Personal history of nicotine dependence
CPT/HCPCS: 80048; 81001; 82962; 83735; 85025; 96365; 99284; A4216

== ENCOUNTER → 2024-03-09 | Outpatient (CLI) | payer MEDICARE, SELFPAY ==
--- NOTE | 2024-03-09 08:42 | RAD_ITS ---
HISTORY: pancreatic stent. TECHNIQUE: XR Abdomen 1 View. COMPARISON: CT 12/27/2023. FINDINGS: BOWEL GAS PATTERN: No dilated bowel loops identified. FREE AIR: Not assessed on supine view. CALCIFICATIONS: Pelvic phleboliths observed. BONES: Gamma nail fixation of chronic left trochanteric femoral fracture. SOFT TISSUES: Right upper quadrant surgical clips related to cholecystectomy. Stents in the region of the common bile and pancreatic ducts. RAD/Abdomen Single View IMPRESSION: Cholecystectomy with stents at the level of the common bile duct and pancreatic duct. Electronically Signed: Ivana Padilla MD at 8:45 EDT ,
== END | disposition home or self-care (01) ==
LOC: RAD 08:40
PROVIDERS: PCP Family Medicine; Referring Provider Internal Medicine Gastroenterology; Visit Provider Internal Medicine Gastroenterology
DX: Z90.49 Acquired absence of other specified parts of digestive tract (principal)
CPT/HCPCS: 74018

== ENCOUNTER → 2024-03-23 | Outpatient (CLI) | payer MEDICARE, SELFPAY ==
[2024-03-23 12:26] LABS: Absolute Lymphocyte Count 1.85 X10^3/uL (0.83-4.51); Basophil# 0.05 X10^3/uL; Basophil% 0.9 % (0-1); Eosinophil# 0.27 X10^3/uL; Eosinophils% 4.9 % (0-5); Hematocrit 35.3 % (37-47); Hemoglobin 11.4 g/dL (12.0-15.0); Lymphocyte # 1.85 X10^3/ul (0.83-4.51); Lymphocyte % 33.3 % (19-41); Mean Corp Hgb Conc 32.3 g/dL (32-36); Mean Corpuscular Hgb 29.7 pg (27.0-32.0); Mean Corpuscular Volume 91.9 fL (81-99); Mean Platelet Vol. 10.6 fl (6.2-12.0); Monocyte# 0.42 X10^3/uL; Monocyte% 7.6 % (0-10); NRBC Flagged by Analyzer 0 % (0-5); Neutrophil # 2.95 X10^3/uL (2.7-7.7); Neutrophil % 52.9 % (47-70); Platelet Count 247 K/mm3 (150-450); RBC Distribution Width CV 13.8 % (11.6-14.6); RBC Distribution Width SD 46.6 fl (35.1-43.9); Red Blood Count 3.84 M/mm3 (4.2-5.4); White Blood Count 5.6 K/mm3 (4.4-11.0)
[2024-03-23 13:01] LABS: ALB/GLOB Ratio 0.7 RATIO (0.9-2.4); AST(SGOT) 18 U/L (15-37); Alanine Aminotransfer ALT/SGPT 19 U/L (13-56); Alkaline Phosphatase 80 U/L (45-117); Anion Gap 7 (5-15); BUN 19 mg/dL (7-18); BUN/Creat Ratio 15.3 RATIO (10-20); Calcium,Total 8.7 mg/dL (8.5-10.1); Chloride 103 mmol/L (98-107); Creatinine, Serum 1.24 mg/dL (0.55-1.02); EST Glomerular Filtration Rate 45 mL/min (>60); Est Glom Filt Rate - Afr Amer 55 mL/min (>60); Globulin 4.4 g/dL (2.2-4.2); Glucose 431 mg/dL (74-106); Potassium 4.4 mmol/L (3.5-5.1); Protein, Total 7.4 g/dL (6.4-8.2); Sodium Level 136 mmol/L (136-145)
== END | disposition home or self-care (01) ==
LOC: MTLAB 10:07
PROVIDERS: PCP Family Medicine; Referring Provider Internal Medicine Rheumatology; Visit Provider Internal Medicine Rheumatology
DX: M06.4 Inflammatory polyarthropathy (principal); M17.0 Bilateral primary osteoarthritis of knee; M18.0 Bilateral primary osteoarthritis of first carpometacarpal joints; G56.03 Carpal tunnel syndrome, bilateral upper limbs; Z79.899 Other long term (current) drug therapy
CPT/HCPCS: 36415; 80053; 85025

== ENCOUNTER 2024-04-04 09:43 | Day surgery (SDC) | payer MEDICARE, SELFPAY ==
[2024-04-04] VITALS (9 sets, daily range): BP systolic 103–157; BP diastolic 35–72; PULSE 68–74; RESP 16; TEMP 36.4–36.8; O2SAT 94–96; BMI 34.7
--- NOTE | 2024-04-04 | FLU_PTH ---
PATIENT: MENDEZ KEITH LOC: EN U#:[id number] AGE/SX: 73/F ROOM: RE04/04/[address]: Dr. Fidel Olivas DO : 1950 BED: DIS: 04/04/2024 SPEC #: [id number] RECD: 04/04/24 12:50 STATUS: ANGELICA VAZQUEZ #: [id number] ARLEY: 04/04/24 00:[address]: Fidel Olivas DEPT: CYTOLOGY RECD BY: Shoabi White ENTERED: 04/04/24 13:33 SP TYPE: Fluid OTHR DR: Dr. Brayan Arita MD Tissues: A - Pancreas, NOS B - Bile duct, NOS Procedures: Special Stain Group II Surgery Specimen Level III Surgery Specimen Level IV Surgery Specimen Level Cytospin Fluid HEADER OPERATION: Stent pull, balloon sweep PRE-OP DIAGNOSIS: Status post cholecystectomy, gastroparesis, constipation, obesity TISSUE SUBMITTED: A- Pancreatic stent for cytology, B- Biliary stent for cytology DIAGNOSIS CYTOLOGY A. Pancreatic stent for cytology (cytospin and cellblock): Negative for malignant cells. B. Biliary stent for cytology (cytospin and cellblock): Negative for malignant cells. AM. 04/05/2024 CYTOLOGY STUDY Slides are reviewed. CYTOLOGY GROSS A. Received is 1 green stent with 0.1 ml of white thick material labeled with the patient's name and and designated per the requisition as Pancreatic stent. Submitted for cytology preparation including cell block. B. Received is 1 black stent with 1.0 ml of yellow thick material labeled with the patient's name and and designated per the requisition as Biliary stent. Submitted for cytology preparation including cell block. Mr 04/04/2024 TC:5 CPT: 92864i2
--- NOTE | 2024-04-04 10:00 | RAD_ITS ---
ERCP INDICATION: Abdominal pain. COMPARISON: 12/28/2023 TECHNIQUE: 2 minutes of fluoroscopy of the abdomen was utilized operating room during ERCP and 11 images are cemented for interpretation. FINDINGS: There is presence of a biliary stent. This was removed. Balloon sphincterotomy was performed. RAD/ERCP Biliary/Pancreas IMPRESSION: Fluoroscopy during ERCP with balloon sphincterotomy. Electronically Signed: Saravanan Rust MD at 13:15 EDT ,
[2024-04-04] MEDS: Lactated Ringers 1,000 ML 15 ML IV (10:12)
--- NOTE | 2024-04-04 10:28 | PRE.ANES_ITS ---
ASA Classification* ASA Classification ASA Classification: 3 Assessment & Plan Anesthesia* Anesthesia Assessment Anesthesia Assessment: Discussed sedation and/or anesthesia options, risks, benefits, and alternatives with patient/parents/legal guardian/POA. Questions invited. The patient/parents/legal guardian/POA seems to understand and agrees to proceed with anesthesia plan. Reviewed the physical assessment, medical history, allergy history and patient home medications list prior to surgery/procedure/anesthetic and documented any changes. Performed airway and anesthesia risk assessments. Anesthesia Type Anesthesia Type: General (see written pre anesthesia record for full assessment) Anesthesia Focused Assessment* Temperature: 97.5 F Pulse Rate: 71 Blood Pressure: 157/60 Respiratory Rate: 16 Pulse Ox: 95 Airway Assessment Mouth opens: >3 cm Mallampati Score: II Focused Labs Anesthesia Preop lab: CBC WBC 5.6 K/mm3 (4.4-11.0) 03/23/24 10:13 RBC 3.84 M/mm3 (4.2-5.4) L 03/23/24 10:13 Hgb 11.4 g/dL (12.0-15.0) L 03/23/24 10:13 Hct 35.3 % (37-47) L 03/23/24 10:13 Plt Count 247 K/mm3 (150-450) 03/23/24 10:13 CHEMISTRY Potassium 4.4 mmol/L (3.5-5.1) 03/23/24 10:13 Sodium 136 mmol/L (136-145) 03/23/24 10:13 Magnesium 2.0 mg/dL (1.6-2.6) 02/21/24 00:30 Phosphorus 4.4 mg/dL (2.5-4.9) 11/19/23 07:35 BUN 19 mg/dL (7-18) H 03/23/24 10:13 Creatinine 1.24 mg/dL (0.55-1.02) H 03/23/24 10:13 Glucose [facility] 79 mg/dL (70-110) 03/01/24 15:38 Glucose 431 mg/dL (74-106) H 03/23/24 10:13 POC Glucose 181 mg/dL (74-106) H 02/21/24 03:45 COAG PT 14.2 SECONDS (11.7-14.9) 10/11/23 06:49 Pre-Assessment Diagnosis/Proposed Procedure Planned Operative Procedure(s): ERCP, Stent Pull Anesthesia History 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 When Was Last Pacemaker Check QUESTION #4 FULL TEXT: You/Your Family Experience fever (hyperthermia) with Anesthesia Last Oral Intake Last Oral intake: Last Oral Intake NPO since 09:00 04/04/24 10:04 Meds taken in AM with sips of water? 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 Female Yes 04/02/24 14:01 HX of Motion Sickness No 04/02/24 14:01 HX of N/V After Surgery No 04/02/24 14:01 Non-Smoker Yes 04/02/24 14:01 Duration of Surgery greater Yes 04/02/24 14:01 than 60 minutes Number of Risk Factors 3 04/02/24 14:01 PONV Score Moderate Risk 04/02/24 14:01 Height & Weight Height & Weight: Anesthesia: Height & Weight Height 5 ft 2 in 04/04/24 10:04 Weight: 86.183 kg 04/04/24 10:04 Body Mass Index (BMI) 34.7 04/04/24 10:04 Respiratory Assessment Respiratory Assessment - special education math teacher: Respiratory Tract Infection Hx - special education math teacher Hx Respiratory Tract Infection No 04/02/24 14:01 STOP Sleep Apnea STOP Sleep Apnea - special education math teacher: STOP Sleep Apnea - special education math teacher Hx Hypertension Yes 04/02/24 14:01 Hx Sleep Apnea Yes 04/02/24 14:01 CPAP No 04/02/24 14:01 BIPAP Yes 04/02/24 14:01 Do you snore loudly (louder than talking or can be heard Do you often feel tired/ fatigued/ sleepy during daytime? Has anyone observed you stop breathing during sleep? STOP Results Positive 04/02/24 14:01 QUESTION #5 FULL TEXT : Do you snore loudly (louder than talking or can be heard through closed doors)? 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 Specify any problems Hx of Preganancy in last 3 No 04/02/24 14:01 Months Nurse Filling Out Transfusion MGRIFFITH 04/02/24 14:01 & Questions: Date: 04/02/24 04/02/24 14:01 Time: 14:06 04/02/24 14:01 Patient unable to answer at this time (ie. 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 teacher Hx Now Gestational Age (in weeks): EDC: Hx Hx Para Hx Section SAB No 12/28/23 03:57 Active Medications Active Medications: Current Medications Generic Name Dose Route Start Last Admin Trade Name Freq PRN Reason Stop Dose Admin Lactated Ringer's 1,000 mls @ 15 mls/hr 04/04/24 10:00 04/04/24 10:12 IV 15 mls/hr .Q48H ISELA Administration PFSH Medical History Depression Ambulates with cane High cholesterol CPAP (continuous positive airway pressure) dependence Closed left hip fracture Osteoporosis Former smoker Sleep apnea Asthma COPD (chronic obstructive pulmonary disease) Essential hypertension History of gastrostomy tube placement Wears glasses Wears dentures History of Clostridium difficile infection Cancer Anxiety Easy bruising Injury of head and neck Restless legs Loss of consciousness Dietary restriction Shortness of breath on exertion Chronic cough History of stress test History of edema Leg cramps History of Holter monitoring Cardiology follow-up encounter History of vaginal delivery Urinary incontinence Internal hemorrhoids History of cervical cancer Diverticulosis Obesity Vision problems Pancreatitis Osteoarthritis Neuropathy IBS (irritable bowel syndrome) Recurrent infections Hives Calcium deficiency Gastrointestinal problem Gall stone Chronic bronchitis Carpal tunnel syndrome Cataract Breast cancer Breast lump UTI (urinary tract infection) Back problem Arthritis Seasonal allergies GERD (gastroesophageal reflux disease) OAB (overactive bladder) Rhabdomyolysis (04/2017) MSSA (methicillin susceptible Staphylococcus aureus) pneumonia Allergic rhinitis Diabetes mellitus, type II Inflammatory polyarthritis Home Medications ?Medication ?Instructions ?Recorded ?Last Taken ?Type fluticasone propionate 50 1 spray intranasal DAILY PRN NASAL 01/30/14 06/20/23 History mcg/actuation nasal CONGESTION spray,suspension methotrexate sodium 2.5 mg tablet 20 mg PO TEJADA BREAST CANCER 04/16/17 06/19/23 History albuterol sulfate 90 mcg/actuation 2 puff inhalation Q4H PRN 06/05/21 11/17/23 History aerosol inhaler (ProAir HFA) SHORTNESS OF BREATH escitalopram oxalate 10 mg tablet 10 mg PO DAILY PRN DEPRESSION 06/05/21 12/27/23 13:00 History (Lexapro) folic acid 1 mg tablet 2 mg PO DAILY SUPPLEMENT 06/05/21 12/27/23 13:00 History hydrochlorothiazide 12.5 mg capsule 12.5 mg PO DAILY BLOOD PRESSURE 06/05/21 12/27/23 13:00 History losartan 100 mg tablet 100 mg PO DAILY BLOOD PRESSURE 06/05/21 04/04/24 09:00 History aspirin 81 mg tablet,delayed 81 mg PO DAILY HEART HEALTH 02/05/22 04/03/24 History release (Adult Low Dose Aspirin) gabapentin 300 mg capsule 300 mg PO QHS NEUROPATHY 02/05/22 12/26/23 21:00 History oxybutynin chloride 10 mg 20 mg PO DAILY OVERACTIVE BLADDER 02/05/22 12/27/23 13:00 History tablet,extended release 24 hr metoprolol succinate 100 mg 100 mg PO DAILY BLOOD PRESSURE 02/24/22 04/04/24 09:00 History tablet,extended release 24 hr esomeprazole magnesium 40 mg 40 mg PO DAILY ACID REFLUX 11/26/22 04/04/24 09:00 History capsule,delayed release (Nexium) pen needle, diabetic 32 gauge x #100 ea 11/26/22 Unknown Rx (BD Ultra-Fine Tish Pen Needle) atorvastatin 20 mg tablet 20 mg PO DAILY CHOLESTEROL 06/21/23 12/27/23 13:00 History metaxalone 800 mg tablet 800 mg PO TID PRN MUSCLE CRAMPS 06/21/23 Unknown History verapamil 120 mg tablet,extended 120 mg PO QHS BLOOD PRESSURE 06/21/23 12/26/23 21:00 History release blood sugar diagnostic (OneTouch #150 ea 11/15/23 Unknown Rx Verio test strips) insulin regular hum U-500 conc 500 See Rx Instructions subcut TIDCM 12/28/23 12/27/23 17:30 History unit/mL(3 mL) subcut pen (Humulin diabetes R U-500 (Conc) Insulin Kwikpen) oxycodone 5 mg tablet 2.5 mg (1/2 x 5 mg) PO Q4H PRN PRN 12/30/23 Unknown Rx Pain Score 4-10 3 days #10 tabs Allergy/AdvReac Type Severity Reaction Status Date / Time JESENIA Inhibitors Allergy Intermediate Cough Verified 04/04/24 10:02 adhesive tape Allergy Intermediate blisters Verified 04/04/24 10:02 dulaglutide (From [facility]) Allergy Intermediate Gastropares Verified 04/04/24 10:02 is Dressing: Non-Medicated Allergy Rash Verified 04/04/24 10:02 (elastic) NSAIDS (Non-Steroidal Allergy Other Verified 04/04/24 10:02 Anti-Inflamma Latex, Natural Rubber AdvReac Mild RASH Verified 04/04/24 10:02 Family History Other Alcohol abuse Anxiety Arthritis Asthma defect COPD (chronic obstructive pulmonary disease) Cancer Diabetes High cholesterol Hypertension Seizures Surgical History History of repair of left hip joint History of ERCP S/P cholecystectomy History of nasal cauterization History of colonoscopy History of appendectomy History of left mastectomy History of hysterectomy Social History Smoking Status: Former smoker alcohol intake: current alcohol intake frequency: 0-2 drinks per day substance use type: does not use what type of physical activity do you participate in: none Review of Systems (Anesthesia) ROS Narrative System reviewed and no additional complaints, except as documented.
[2024-04-04 10:31] LABS: Bedside Glucose 276 mg/dL (74-106)
--- NOTE | 2024-04-04 10:56 | PCM.HP.BLA ---
History and Physical Date of Admission: 04/04/24 DOM KEITH, is a 73 F who presents to the office today for hospital follow up. [facility] hospitalization 12.27.23 - 12.30.23 abd pain - started yesterday. Describes the pain is upper abdomen radiating to her back abd/pelvis CT 12.27.23 Cholelithiasis with choledocholithiasis. ERCP 12.28.23 The entire main bile duct was dilated, with a stone causing an obstruction. Choledocholithiasis was found. Complete removal was accomplished by biliary sphincterotomy and balloon extraction. A biliary sphincterotomy was performed. The biliary tree was swept. A pancreatic sphincterotomy was performed. The ventral pancreatic duct was swept. One temporary stent was placed into the ventral pancreatic duct. One temporary stent was placed into the common bile duct. *BGI established 03.09.24 pt reports that she has been feeling well since hospitalization. Pt reports after cholecystectomy she was having increased gas, but states that it is getting better. pt reports regular bm; denies blood in the stool. ROS Const Constitutional: Positive for fatigue, fever(s), weakness and weight change (weight loss) ENT ENT: No difficulty swallowing Cardio Cardiology: Positive for leg pain with exertion Gastro GI: Positive for bloating, change in bowel habits, heartburn and excessive flatus; No abdominal pain, belching, change in stool character, coffee ground emesis, constipation, cramping, diarrhea, difficulty swallowing, feeling full early, incontinent of stools, Vomiting blood/hematemesis, Blood in stool, loose stools, Black,tarry stools, nausea/dyspepsia, pain with swallowing, vomiting or other Musc Musculoskeletal: Positive for abnormal gait, joint pain, back pain, joint swelling, muscle cramps, muscle weakness, numbness, stiffness, tingling, Arthritis, sciatica, restless legs, leg pain at night and leg pain with exertion Skin Skin: Positive for dry skin; No yellowing of the eye or itchy eyes Neuro Neurology: Positive for abnormal gait, weakness, numbness, tingling, restless legs, Increased tone in limbs and paralysis Psych Psychiatric: Positive for anxiety and Positive for depression Endo Endocrine: Positive for fatigue and weight change (weight loss) Aller/Imm Allergy/Immunologic: No itchy eyes Fred/Lymp Hematologic/Lymphatic: Positive for easy bruising; No easy bleeding Exam Const General: cooperative, healthy appearing, comfortable, no acute distress, well developed and not cushingoid Nutritional Appearance: well nourished and obese Orientation: alert, awake and oriented x3 HENMT Head: normal to inspection Ears: hearing grossly normal bilaterally Nose: external nose normal Mouth: oral mucosae normal Eyes General: appearance normal, both eyes and all related structures Alignment and Position: alignment normal Periorbital: periorbital findings normal Eyelids: eyelids normal Conjunctivae: conjunctivae normal Neck Neck: normal visual inspection Neck mass: No Chest Chest palpation & inspection: normal inspection of the chest Resp Effort & Inspection: normal respiratory effort, able to speak in complete sentences, symmetric chest movement, no audible wheezes and no cough Auscultation: Bilateral: Clear to Auscultation Cardio Rate: regular rate Rhythm: regular rhythm GI Inspection: normal to inspection Skin General: no rashes or lesions noted Neuro General: patient alert, patient awake and patient oriented x3 Cranial Nerves: CN's II-XI intact bilaterally Cognition: normal cognition Speech: speech normal Gait: normal gait Motor: muscle tone normal throughout Extrem General: no edema Psych Appearance: grossly normal Mental Status: mental status grossly normal Mood: congruent mood Affect: normal affect Speech and Movement: speech and movement normal Attitude: cooperative Thought Process: normal Thought Content: normal Judgment: judgment good Assessment and Plan Assessment and Plan (1) S/P cholecystectomy: Status: Acute Plan: 73-year-old female admitted with 2-day history of RUQ abdominal pain with radiation to back, itching. She has history of gallstones. She previously had appendectomy and hysterectomy in the past. Gallbladder ultrasound shows cholelithiasis. Abdomen pelvis shows cholelithiasis with choledocholithiasis. Mild RUQ tenderness present. I performed an ERCP 12/28/2023 Impressions : - The entire main bile duct was dilated, with a stone causing an obstruction. - Choledocholithiasis was found. Complete removal was accomplished by biliary sphincterotomy and balloon extraction. - A biliary sphincterotomy was performed. - The biliary tree was swept. - A pancreatic sphincterotomy was performed. - The ventral pancreatic duct was swept. - One temporary stent was placed into the ventral pancreatic duct. - One temporary stent was placed into the common bile duct. Subsequently patient had laparoscopic cholecystectomy with intraoperative cholangiogram. Evidence of chronic cholecystitis with mild GB wall thickening. Liver with evidence of Gary-Edwar Jalen capsular adhesion. Cholangiogram shows antegrade flow of contrast into duodenum without obstruction. She is doing well without any complaints. We will get a KUB to see if she passed the pancreatic duct stent. Follow up prn (2) Gastroparesis: Status: Acute Plan: She is not having abdominal pain or discomfort as she was previously experiencing on her last visit. She is having low bloating she is changes in. She is nausea. She still maintained on PPI therapy. I think this is most likely a complication of diet mellitus. Also I think her being on 2000 mg of metformin may be contributing to her symptoms. Her last hemoglobin A1c was still very high. I told her to discuss with her PCP and receiving lead regarding her blood sugars on a daily basis. She was on sulcal fate therapy and is being maintained on PPI therapy without an antiemetic or a prokinetic agent. She does not want to try anything else regarding the gastroparesis at this time. (3) Constipation: Status: Acute Qualifiers: Constipation type: slow transit constipation Qualified Code(s): K59.01 - Slow transit constipation Plan: We will continue her plan regarding diet and fiber ministration. She is okay with this plan. (4) Obesity: Status: Chronic Qualifiers: Obesity type: due to excess calories Obesity classification: adult class 2 (BMI 35 - 39.9) Serious obesity comorbidity presence: with serious comorbidity Body mass index: BMI 37.0-37.9 Qualified Code(s): E66.01 - Morbid (severe) obesity due to excess calories; Z68.37 - Body mass index [BMI] 37.0-37.9, adult Plan: She will be able to go back on the phentermine in August. She only took it for 1 month. She actually did very well and lost about 18 pounds while taking it. Orders: Orders Abdomen Single View Today Z90.49 - Acquired absence of other specified parts of digestive tract I have examined the patient and the H&P has been reviewed. There are no clinical changes since date of exam. Assessment & Plan Assessment/Plan (1) Choledocholithiasis: PLAN: 73-year-old with past medical history of rheumatoid arthritis, breast cancer, diabetes on methotrexate complicated by gastroparesis comes in with abdominal pain and discovered choledocholithiasis and cholecystitis. She is status post ERCP with stent removal and stone placement. She is also status post cholecystectomy. Her labs do show some improvement but her alkaline phosphatase has not gone down much. They could be swelling and or around the stent or could be residual sludge. 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 Recommend to watch 1 more day and follow LFTs and clinical exam. Advance diet as tolerated.
--- NOTE | 2024-04-04 12:41 | OP.ERCP_ITS ---
Patient Name: Manisha Beth Procedure Date: 04/04/2024 11:36 AM Date of : 1950 Age: 73 Procedure: ERCP Indications: Stent removal Providers: Fidel Olivas DO Referring MD: Brayan Arita Medicines: Monitored Anesthesia Care Patient Profile: This is a 73 year old female. Refer to note in patient chart for documentation of history and physical. Patient has symptoms. Her most recent ERCP for stent and ERCP for stone removal was within the past three months. Complications: No immediate complications. Procedure: Pre-Anesthesia Assessment: - Prior to the procedure, a History and Physical was performed, and patient medications and allergies were reviewed. The patient is competent. The risks and benefits of the procedure and the sedation options and risks were discussed with the patient. All questions were answered and informed consent was obtained. Patient identification and proposed procedure were verified by the physician in the pre-procedure area. Mental Status Examination: alert and oriented. Airway Examination: normal oropharyngeal airway and neck mobility. Respiratory Examination: clear to auscultation. CV Examination: normal. Prophylactic Antibiotics: The patient does not require prophylactic antibiotics. Prior Anticoagulants: The patient has taken no anticoagulant or antiplatelet agents. ASA Grade Assessment: II - A patient with mild systemic disease. After reviewing the risks and benefits, the patient was deemed in satisfactory condition to undergo the procedure. The anesthesia plan was to use general anesthesia. Immediately prior to administration of medications, the patient was re-assessed for adequacy to receive sedatives. The heart rate, respiratory rate, oxygen saturations, blood pressure, adequacy of pulmonary ventilation, and response to care were monitored throughout the procedure. The physical status of the patient was re-assessed after the procedure. After obtaining informed consent, the scope was passed under direct vision. Throughout the procedure, the patient's blood pressure, pulse, and oxygen saturations were monitored continuously. The Duodenoscope was introduced through the mouth, and advanced to the duodenum and used to inject contrast into the bile duct and ventral pancreatic duct. The ERCP was accomplished without difficulty. The patient tolerated the procedure well. Scope In: 12:05:09 PM Scope Out: 12:22:25 PM Total Procedure Duration Time 0 hours 17 minutes 16 seconds Findings: The cover marker film was normal. The esophagus was successfully intubated under direct vision. The scope was advanced to a normal major papilla in the descending duodenum without detailed examination of the pharynx, larynx and associated structures, and upper GI tract. The upper GI tract was grossly normal. The ventral pancreatic duct was deeply cannulated with the short-nosed traction sphincterotome. Contrast was injected. I personally interpreted the pancreatic duct images. There was brisk flow of contrast through the ducts. Image quality was adequate. Contrast extended to the pancreatic duct. Opacification of the entire pancreatic ductal system was successful. The maximum diameter of the ducts was 3 mm. The entire opacified area was normal. A long 0.025 inch Jagwire was passed into the ventral pancreatic duct. A 5 mm ventral pancreatic sphincterotomy was made with a monofilament traction (standard) sphincterotome using ERBE electrocautery. There was no post-sphincterotomy bleeding. To find object(s) the ventral pancreatic duct was swept with a 6 mm balloon starting at the pancreatic duct in the body of the pancreas. Debris was swept from the duct. One stent was removed from the pancreatic duct using a snare and sent for cytology. The stent was found to be occluded via the water column test. One stent was removed from the biliary tree using a snare and sent for cytology. The stent was found to be occluded via the water column test. The bile duct was deeply cannulated. Contrast was injected. Opacification of the entire opacified area was successful. The maximum diameter of the ducts was 12 mm. The lower third of the main bile duct contained two stones, the largest of which was 6 mm in diameter. The entire biliary tree except for the cystic duct and gallbladder were diffusely dilated, with a stone causing an obstruction. The largest diameter was 12 mm. A cholecystectomy had been performed. A long 0.025 inch Jagwire was passed into the biliary tree. A 5 mm biliary sphincterotomy was made with a traction (standard) sphincterotome using ERBE electrocautery. There was no post-sphincterotomy bleeding. The biliary tree was swept with a 12 mm balloon starting at the bifurcation. All stones were removed. Impression: - A pancreatic sphincterotomy was performed. - The ventral pancreatic duct was swept and debris was found. - One stent was removed from the pancreatic duct. Recommendation: - Avoid aspirin and nonsteroidal anti-inflammatory medicines today. Procedure Code(s): --- Professional --- 88537, Endoscopic retrograde cholangiopancreatography (ERCP); with removal of foreign body(s) or stent(s) from biliary/pancreatic duct(s) 90571, Endoscopic retrograde cholangiopancreatography (ERCP); with removal of calculi/debris from biliary/pancreatic duct(s) 19063, Endoscopic retrograde cholangiopancreatography (ERCP); with sphincterotomy/papillotomy 75105, Endoscopic retrograde cholangiopancreatography (ERCP); with sphincterotomy/papillotomy 42737, 26, Endoscopic catheterization of the pancreatic ductal system, radiological supervision and interpretation CPT copyright 2021 [employer]. All rights reserved. The codes documented in this report are preliminary and upon human resources communications manager review may be revised to meet current compliance requirements. Fidel Olivas DO 04/04/2024 12:40:56 PM This report has been signed electronically. Number of Addenda: 0 Note Initiated On: 04/04/2024 11:36 AM
--- NOTE | 2024-04-04 12:41 | OP.CCLET_ITS ---
04/04/2024 Brayan Arita Re : ERCP procedure for Manisha Beth Dear Lyla This procedure was performed on Thursday, April 04, 2024. My impressions and recommendations are as follows: Impressions : - A pancreatic sphincterotomy was performed. - The ventral pancreatic duct was swept and debris was found. - One stent was removed from the pancreatic duct. Recommendations : - Avoid aspirin and nonsteroidal anti-inflammatory medicines today. My findings are described in the full procedure note, which is enclosed. If I can be of further assistance, please feel free to contact me at . Sincerely, Fidel Olivas, 04/04/2024 12:40:56 PM This report has been signed electronically.
--- NOTE | 2024-04-04 12:48 | PCM.POST.ANE ---
Anesthesia: Postop Eval I Current Vital Signs Temperature: 97.7 F Pulse Rate: 74 Blood Pressure: 104/35 Respiratory Rate: 16 Pulse Ox: 94 Oxygen Delivery Method: Room Air Assessment Airway patent: Yes Spontaneous unlabored respirations: Yes Mental status: Awake and Calm nausea: No Vomiting: No Anesthesia Complication: No Fluid Hydration Crystalloid volume administer (ml): 800 Total IV fluid infused: 800 Progress Note Anesthesia document: Postop Eval 1 completed: Yes
== END 2024-04-04 13:57 | disposition home or self-care (01) ==
LOC: EN 09:44 → AC 09:45
PROVIDERS: PCP Family Medicine; Referring Provider Family Medicine; Visit Provider Internal Medicine Gastroenterology
PROC: (CPT 43260; principal; 2024-04-04 10:40)
DX: Z46.59 Encounter for fitting and adjustment of other gastrointestinal appliance and device (principal); J44.9 Chronic obstructive pulmonary disease, unspecified; E66.01 Morbid (severe) obesity due to excess calories; E11.43 Type 2 diabetes mellitus with diabetic autonomic (poly)neuropathy; E11.22 Type 2 diabetes mellitus with diabetic chronic kidney disease; N18.30 Chronic kidney disease, stage 3 unspecified; K31.84 Gastroparesis; K80.51 Calculus of bile duct without cholangitis or cholecystitis with obstruction; Z90.49 Acquired absence of other specified parts of digestive tract; F41.9 Anxiety disorder, unspecified; F32.A Depression, unspecified; Z98.890 Other specified postprocedural states; Z79.84 Long term (current) use of oral hypoglycemic drugs; K59.01 Slow transit constipation; Z68.37 Body mass index [BMI] 37.0-37.9, adult; Z79.82 Long term (current) use of aspirin; Z79.899 Other long term (current) drug therapy
CPT/HCPCS: 43262; 43264; 43275; 74330; 76000; 82962; 88108; 88304; 88305; 88309; 88313; J7120; J2405

== ENCOUNTER → 2024-04-20 | Outpatient (CLI) | payer MEDICARE, SELFPAY ==
[2024-04-20 15:21] LABS: Absolute Lymphocyte Count 1.91 X10^3/uL (0.83-4.51); Basophil# 0.07 X10^3/uL; Basophil% 0.8 % (0-1); Eosinophil# 0.27 X10^3/uL; Hemoglobin 11.8 g/dL (12.0-15.0); Lymphocyte # 1.91 X10^3/ul (0.83-4.51); Lymphocyte % 21.3 % (19-41); Mean Corp Hgb Conc 31.9 g/dL (32-36); Mean Corpuscular Hgb 29.9 pg (27.0-32.0); Mean Corpuscular Volume 93.7 fL (81-99); Monocyte# 0.66 X10^3/uL; Monocyte% 7.4 % (0-10); NRBC Flagged by Analyzer 0 % (0-5); Neutrophil # 5.99 X10^3/uL (2.7-7.7); Neutrophil % 66.8 % (47-70); Platelet Count 299 K/mm3 (150-450); RBC Distribution Width CV 13.8 % (11.6-14.6); Red Blood Count 3.95 M/mm3 (4.2-5.4)
[2024-04-20 17:14] LABS: ALB/GLOB Ratio 0.7 RATIO (0.9-2.4); AST(SGOT) 19 U/L (15-37); Alanine Aminotransfer ALT/SGPT 20 U/L (13-56); Albumin, Serum 3.1 g/dL (3.2-5.0); Alkaline Phosphatase 81 U/L (45-117); Anion Gap 7 (5-15); BUN 19 mg/dL (7-18); BUN/Creat Ratio 19.1 RATIO (10-20); Calcium,Total 9.3 mg/dL (8.5-10.1); Chloride 104 mmol/L (98-107); EST Glomerular Filtration Rate 58 mL/min (>60); Est Glom Filt Rate - Afr Amer 70 mL/min (>60); Globulin 4.5 g/dL (2.2-4.2); Glucose 134 mg/dL (74-106); Potassium 3.8 mmol/L (3.5-5.1); Protein, Total 7.6 g/dL (6.4-8.2); Sodium Level 139 mmol/L (136-145)
== END | disposition home or self-care (01) ==
LOC: MTLAB 12:40
PROVIDERS: PCP Family Medicine; Referring Provider Internal Medicine Rheumatology; Visit Provider Internal Medicine Rheumatology
DX: M06.4 Inflammatory polyarthropathy (principal); M17.0 Bilateral primary osteoarthritis of knee; M18.0 Bilateral primary osteoarthritis of first carpometacarpal joints; G56.03 Carpal tunnel syndrome, bilateral upper limbs; Z79.899 Other long term (current) drug therapy
CPT/HCPCS: 36415; 80053; 85025

== ENCOUNTER → 2024-06-25 | Outpatient (CLI) | payer MEDICARE, SELFPAY ==
[2024-06-25 12:17] LABS: Absolute Lymphocyte Count 2.15 X10^3/uL (0.83-4.51); Absolute Neutrophil Count 4.9 X10^3/uL (2.0-7.7); Basophil# 0.06 X10^3/uL; Basophil% 0.8 % (0-1); Eosinophil# 0.24 X10^3/uL; Hematocrit 36.8 % (37-47); Lymphocyte # 2.15 X10^3/ul (0.83-4.51); Mean Corp Hgb Conc 32.6 g/dL (32-36); Mean Corpuscular Hgb 30.6 pg (27.0-32.0); Mean Corpuscular Volume 93.9 fL (81-99); Mean Platelet Vol. 9.5 fl (6.2-12.0); Monocyte% 7.5 % (0-10); NRBC Flagged by Analyzer 0 % (0-5); Neutrophil # 4.88 X10^3/uL (2.7-7.7); Neutrophil % 61.3 % (47-70); Platelet Count 227 K/mm3 (150-450); RBC Distribution Width CV 12.8 % (11.6-14.6); RBC Distribution Width SD 43.8 fl (35.1-43.9); Red Blood Count 3.92 M/mm3 (4.2-5.4)
[2024-06-25 12:56] LABS: ALB/GLOB Ratio 0.8 RATIO (0.9-2.4); AST(SGOT) 11 U/L (15-37); Alanine Aminotransfer ALT/SGPT 16 U/L (13-56); Albumin, Serum 3.2 g/dL (3.2-5.0); Alkaline Phosphatase 68 U/L (45-117); Anion Gap 7 (5-15); BUN 22 mg/dL (7-18); BUN/Creat Ratio 20.2 RATIO (10-20); Calcium,Total 9.2 mg/dL (8.5-10.1); Chloride 102 mmol/L (98-107); Creatinine, Serum 1.09 mg/dL (0.55-1.02); EST Glomerular Filtration Rate 52 mL/min (>60); Est Glom Filt Rate - Afr Amer 63 mL/min (>60); Globulin 4.1 g/dL (2.2-4.2); Glucose 381 mg/dL (74-106); Protein, Total 7.3 g/dL (6.4-8.2); Sodium Level 136 mmol/L (136-145)
== END | disposition home or self-care (01) ==
LOC: MTLAB 09:31
PROVIDERS: PCP Family Medicine; Referring Provider Internal Medicine Rheumatology; Visit Provider Internal Medicine Rheumatology
DX: M06.4 Inflammatory polyarthropathy (principal); M17.0 Bilateral primary osteoarthritis of knee; M18.0 Bilateral primary osteoarthritis of first carpometacarpal joints; G56.03 Carpal tunnel syndrome, bilateral upper limbs; Z79.899 Other long term (current) drug therapy
CPT/HCPCS: 36415; 80053; 85025

== ENCOUNTER → 2024-07-16 | Outpatient (CLI) | payer MEDICARE, SELFPAY ==
[2024-07-16 13:08] LABS: ALB/GLOB Ratio 0.8 RATIO (0.9-2.4); AST(SGOT) 19 U/L (15-37); Alanine Aminotransfer ALT/SGPT 19 U/L (13-56); Albumin, Serum 3.2 g/dL (3.2-5.0); Alkaline Phosphatase 65 U/L (45-117); Anion Gap 4 (5-15); BUN 13 mg/dL (7-18); BUN/Creat Ratio 11.8 RATIO (10-20); Calcium,Total 8.8 mg/dL (8.5-10.1); Chloride 100 mmol/L (98-107); Cholesterol 224 mg/dL (200); EST Glomerular Filtration Rate 52 mL/min (>60); Est Glom Filt Rate - Afr Amer 63 mL/min (>60); Globulin 4.1 g/dL (2.2-4.2); Glucose 410 mg/dL (74-106); High Density Lipoprotein 71 mg/dL; Protein, Total 7.3 g/dL (6.4-8.2); Sodium Level 134 mmol/L (136-145); Triglycerides 129 mg/dL; Very Low Density Lipoprotein 26 mg/dL (5-40)
[2024-07-16 13:10] LABS: Microalbumin,Random Urine 20.8 mg/L (NO RANGE EST.); Microalbumin:Creatinine Ratio 31.2 mg/g CRE (<30 mg/g CRE)
== END | disposition home or self-care (01) ==
LOC: LAB 12:02
PROVIDERS: PCP Family Medicine; Referring Provider Internal Medicine Endocrinology, Diabetes & Metabolism; Visit Provider Internal Medicine Endocrinology, Diabetes & Metabolism
DX: E11.65 Type 2 diabetes mellitus with hyperglycemia (principal); E11.22 Type 2 diabetes mellitus with diabetic chronic kidney disease; Z79.4 Long term (current) use of insulin; N18.32 Chronic kidney disease, stage 3b; E78.5 Hyperlipidemia, unspecified; M81.0 Age-related osteoporosis without current pathological fracture
CPT/HCPCS: 36415; 80053; 80061; 82043; 82570

== ENCOUNTER → 2024-09-18 | Outpatient (CLI) | payer MEDICARE, SELFPAY ==
[2024-09-18 17:50] LABS: Absolute Lymphocyte Count 1.63 X10^3/uL (0.83-4.51); Absolute Neutrophil Count 4.2 X10^3/uL (2.0-7.7); Basophil# 0.06 X10^3/uL; Basophil% 0.9 % (0-1); Hematocrit 37.3 % (37-47); Hemoglobin 11.9 g/dL (12.0-15.0); Lymphocyte # 1.63 X10^3/ul (0.83-4.51); Lymphocyte % 24.8 % (19-41); Mean Corp Hgb Conc 31.9 g/dL (32-36); Mean Platelet Vol. 9.8 fl (6.2-12.0); Monocyte# 0.42 X10^3/uL; Monocyte% 6.4 % (0-10); NRBC Flagged by Analyzer 0 % (0-5); Neutrophil # 4.23 X10^3/uL (2.7-7.7); Neutrophil % 64.4 % (47-70); Platelet Count 256 K/mm3 (150-450); RBC Distribution Width CV 13.1 % (11.6-14.6); RBC Distribution Width SD 45.1 fl (35.1-43.9); Red Blood Count 3.97 M/mm3 (4.2-5.4); White Blood Count 6.6 K/mm3 (4.4-11.0)
[2024-09-18 17:51] LABS: ALB/GLOB Ratio 0.7 RATIO (0.9-2.4); AST(SGOT) 16 U/L (15-37); Alanine Aminotransfer ALT/SGPT 19 U/L (13-56); Albumin, Serum 3.1 g/dL (3.2-5.0); Alkaline Phosphatase 61 U/L (45-117); Anion Gap 9 (5-15); BUN 19 mg/dL (7-18); BUN/Creat Ratio 19.3 RATIO (10-20); Calcium,Total 8.7 mg/dL (8.5-10.1); Chloride 103 mmol/L (98-107); Creatinine, Serum 0.98 mg/dL (0.55-1.02); EST Glomerular Filtration Rate 59 mL/min (>60); Est Glom Filt Rate - Afr Amer 71 mL/min (>60); Globulin 4.2 g/dL (2.2-4.2); Glucose 344 mg/dL (74-106); Potassium 4.1 mmol/L (3.5-5.1); Protein, Total 7.3 g/dL (6.4-8.2); Sodium Level 135 mmol/L (136-145)
== END | disposition home or self-care (01) ==
LOC: MTLAB 16:24
PROVIDERS: PCP Family Medicine; Referring Provider Internal Medicine Rheumatology; Visit Provider Internal Medicine Rheumatology
DX: M06.4 Inflammatory polyarthropathy (principal); M17.0 Bilateral primary osteoarthritis of knee; M18.0 Bilateral primary osteoarthritis of first carpometacarpal joints; G56.03 Carpal tunnel syndrome, bilateral upper limbs; Z79.899 Other long term (current) drug therapy
CPT/HCPCS: 36415; 80053; 85025

== ENCOUNTER 2024-10-03 14:48 | Outpatient (CLI) | payer MEDICARE, SELFPAY ==
[2024-10-03 14:55] VITALS: BP 170/74; PULSE 87; RESP 16; TEMP 36.2; O2SAT 95; BMI 35.6
[2024-10-03] MEDS: 0.9% Normal Saline (100mL Bag) 100 ML 15 ML IV (15:04)
[2024-10-03] MEDS: Zoledronic Acid 5 MG 100 ML 300 MG IV (15:08)
[2024-10-03] MEDS: 0.9% NaCl Peripheral Flush Adult/Peds IV (15:08)
[2024-10-03 15:42] VITALS: BP 163/75; PULSE 83
== END 2024-10-03 23:59 | disposition home or self-care (01) ==
LOC: MEDOUTP 14:48
PROVIDERS: PCP Family Medicine; Referring Provider Nurse Practitioner Family; Visit Provider Nurse Practitioner Family
DX: M81.0 Age-related osteoporosis without current pathological fracture (principal)
CPT/HCPCS: 96365; A4216; J3489

== ENCOUNTER → 2024-12-10 | Outpatient (CLI) | payer MEDICARE, SELFPAY ==
[2024-12-10 18:06] LABS: Absolute Neutrophil Count 6.3 X10^3/uL (2.0-7.7); Basophil# 0.07 X10^3/uL; Basophil% 0.8 % (0-1); Eosinophil# 0.31 X10^3/uL; Eosinophils% 3.4 % (0-5); Hematocrit 36.1 % (37-47); Hemoglobin 12.3 g/dL (12.0-15.0); Lymphocyte % 17.7 % (19-41); Mean Corp Hgb Conc 34.1 g/dL (32-36); Mean Corpuscular Hgb 31.3 pg (27.0-32.0); Mean Corpuscular Volume 91.9 fL (81-99); Mean Platelet Vol. 9.6 fl (6.2-12.0); Monocyte# 0.68 X10^3/uL; Monocyte% 7.5 % (0-10); NRBC Flagged by Analyzer 0 % (0-5); Neutrophil # 6.34 X10^3/uL (2.7-7.7); Neutrophil % 69.9 % (47-70); Platelet Count 232 K/mm3 (150-450); RBC Distribution Width CV 13.9 % (11.6-14.6); RBC Distribution Width SD 45.8 fl (35.1-43.9); Red Blood Count 3.93 M/mm3 (4.2-5.4); White Blood Count 9.1 K/mm3 (4.4-11.0)
[2024-12-10 18:47] LABS: ALB/GLOB Ratio 1.1 RATIO (0.9-2.4); AST(SGOT) 16 U/L (<=31); Alanine Aminotransfer ALT/SGPT 12 U/L (<=34); Alkaline Phosphatase 51 U/L (35-104); Anion Gap 12 (5-15); BUN 18 mg/dL (4-19); BUN/Creat Ratio 20.9 RATIO (10-20); Calcium,Total 9.7 mg/dL (7.6-11.0); Carbon Dioxide 25.3 mmol/L (21.0-32.0); Chloride 101 mmol/L (98-108); Creatinine, Serum 0.86 mg/dL (0.70-1.20); EST Glomerular Filtration Rate 72 (>60); Globulin 3.6 g/dL (2.2-4.2); Glucose 143 mg/dL (70-99); Potassium 3.9 mmol/L (3.3-5.1); Protein, Total 7.5 g/dL (5.9-8.4); Sodium Level 138 mmol/L (133-145); Total Bilirubin 0.29 mg/dL (0.00-1.30)
== END | disposition home or self-care (01) ==
LOC: MTLAB 15:30
PROVIDERS: PCP Family Medicine; Referring Provider Internal Medicine Rheumatology; Visit Provider Internal Medicine Rheumatology
DX: M06.4 Inflammatory polyarthropathy (principal); Z79.899 Other long term (current) drug therapy
CPT/HCPCS: 36415; 80053; 85025

== ENCOUNTER → 2025-03-04 | Outpatient (CLI) | payer MEDICARE, SELFPAY ==
[2025-03-04 12:36] LABS: Hematocrit 37.4 % (37-47); Hemoglobin 12.5 g/dL (12.0-15.0); Immature Granulocytes Count 0.040 X10^3/uL (0.0-0.0); Mean Corp Hgb Conc 33.4 g/dL (32-36); Mean Corpuscular Volume 94.0 fL (81-99); Mean Platelet Vol. 9.8 fl (6.2-12.0); NRBC Flagged by Analyzer 0 % (0-5); Platelet Count 242 K/mm3 (150-450); RBC Distribution Width CV 12.7 % (11.6-14.6); RBC Distribution Width SD 43.5 fl (35.1-43.9); Red Blood Count 3.98 M/mm3 (4.2-5.4); White Blood Count 7.4 K/mm3 (4.4-11.0)
[2025-03-04 13:07] LABS: AST(SGOT) 18 U/L (<=31); Alanine Aminotransfer ALT/SGPT 11 U/L (<=34); Albumin, Serum 3.7 g/dL (3.4-4.8); Alkaline Phosphatase 57 U/L (35-104); Anion Gap 11 (5-15); BUN 15 mg/dL (4-19); BUN/Creat Ratio 16.2 RATIO (10-20); Calcium,Total 9.2 mg/dL (7.6-11.0); Carbon Dioxide 26.8 mmol/L (21.0-32.0); Chloride 101 mmol/L (98-108); Globulin 3.4 g/dL (2.2-4.2); Glucose 321 mg/dL (70-99); Potassium 3.9 mmol/L (3.3-5.1)
== END | disposition home or self-care (01) ==
LOC: MTLAB 10:46
PROVIDERS: PCP Family Medicine; Referring Provider Internal Medicine Rheumatology; Visit Provider Internal Medicine Rheumatology
DX: M06.4 Inflammatory polyarthropathy (principal); Z79.899 Other long term (current) drug therapy
CPT/HCPCS: 36415; 80053; 85025

== ENCOUNTER 2025-05-05 14:32 | Emergency (ER) | payer MEDICARE, SELFPAY ==
[2025-05-05 14:34] VITALS: BP 196/81; PULSE 91; RESP 18; TEMP 36.4; O2SAT 97; BMI 37.8
--- NOTE | 2025-05-05 14:49 | EX.ED.DYSGE1 ---
HPI History of Present Illness Chief Complaint: Other, Pain/Inj Narrative Narrative: 74-year-old female presents with facial pain that began this morning when she awoke. She states that her sinuses and all the bones of her face were hurting her. She also woke up with nasal congestion. She denies any fevers or chills, no nausea or vomiting, no chest pain, no neck pain. She thinks that it is in relation to all the eyedrops that she has been using for her laser surgery on her eyes. She states she had this a few weeks ago and at the beginning of the month, and that during the surgery the nerve was hit. She has had bilateral eye pain. She states that while the laser surgery was post to improve her vision, she feels its gotten worse in both eyes. She presents because of the facial pain and sinus pain. No exacerbating or alleviating factors, although she has not taken any medication to help with her pain. [facility] Medical History Depression Ambulates with cane High cholesterol CPAP (continuous positive airway pressure) dependence Closed left hip fracture Osteoporosis Former smoker Sleep apnea Asthma COPD (chronic obstructive pulmonary disease) Essential hypertension History of gastrostomy tube placement Wears glasses Wears dentures History of Clostridium difficile infection Cancer Anxiety Easy bruising Injury of head and neck Restless legs Loss of consciousness Dietary restriction Shortness of breath on exertion Chronic cough History of stress test History of edema Leg cramps History of Holter monitoring Cardiology follow-up encounter History of vaginal delivery Urinary incontinence Internal hemorrhoids History of cervical cancer Diverticulosis Obesity Vision problems Pancreatitis Osteoarthritis Neuropathy IBS (irritable bowel syndrome) Recurrent infections Hives Calcium deficiency Gastrointestinal problem Gall stone Chronic bronchitis Carpal tunnel syndrome Cataract Breast cancer Breast lump UTI (urinary tract infection) Back problem Arthritis Seasonal allergies GERD (gastroesophageal reflux disease) OAB (overactive bladder) Rhabdomyolysis (04/2017) MSSA (methicillin susceptible Staphylococcus aureus) pneumonia Allergic rhinitis Diabetes mellitus, type II Inflammatory polyarthritis Home Medications ?Medication ?Instructions ?Recorded ?Last Taken ?Type fluticasone propionate 50 1 spray intranasal DAILY PRN NASAL 01/30/14 06/20/23 History mcg/actuation nasal CONGESTION spray,suspension methotrexate sodium 2.5 mg tablet 20 mg PO TEJADA BREAST CANCER 04/16/17 06/19/23 History escitalopram oxalate 10 mg tablet 10 mg PO DAILY PRN DEPRESSION 06/05/21 12/27/23 13:00 History (Lexapro) folic acid 1 mg tablet 2 mg PO DAILY SUPPLEMENT 06/05/21 12/27/23 13:00 History hydrochlorothiazide 12.5 mg capsule 12.5 mg PO DAILY BLOOD PRESSURE 06/05/21 12/27/23 13:00 History losartan 100 mg tablet 100 mg PO DAILY BLOOD PRESSURE 06/05/21 04/04/24 09:00 History aspirin 81 mg tablet,delayed 81 mg PO DAILY HEART HEALTH 02/05/22 04/03/24 History release (Adult Low Dose Aspirin) gabapentin 300 mg capsule 300 mg PO QHS NEUROPATHY 02/05/22 12/26/23 21:00 History oxybutynin chloride 10 mg 20 mg PO DAILY OVERACTIVE BLADDER 02/05/22 12/27/23 13:00 History tablet,extended release 24 hr metoprolol succinate 100 mg 100 mg PO DAILY BLOOD PRESSURE 02/24/22 04/04/24 09:00 History tablet,extended release 24 hr pen needle, diabetic 32 gauge x #100 ea 11/26/22 Unknown Rx (BD Ultra-Fine Tish Pen Needle) atorvastatin 20 mg tablet 20 mg PO DAILY CHOLESTEROL 06/21/23 12/27/23 13:00 History metaxalone 800 mg tablet 800 mg PO TID PRN MUSCLE CRAMPS 06/21/23 Unknown History insulin regular hum U-500 conc 500 See Rx Instructions subcut TIDCM 12/28/23 12/27/23 17:30 History unit/mL(3 mL) subcut pen (Humulin diabetes R U-500 (Conc) Insulin Kwikpen) zoledronic acid 5 mg/100 mL in See Rx Instructions .Route ONCE 08/30/24 Unknown Rx mannitol 5 %-water intravenous #100 mL piggybck blood sugar diagnostic (OneTouch #150 ea 11/14/24 Unknown Rx Verio test strips) blood-glucose,embroidery worker,cont #1 ea 11/14/24 Unknown Rx (FreeStyle Mitzi [address] [place]) albuterol sulfate 90 mcg/actuation 2 puff inhalation Q4 PRN wheezing 01/21/25 Unknown History aerosol inhaler ammonium lactate 12 % lotion topical PRN 01/21/25 Unknown History cholecalciferol (vitamin D3) 1,250 1,250 mcg PO QWEEK #12 caps 01/21/25 Unknown Rx mcg (50,000 unit) capsule pantoprazole 40 mg tablet,delayed 40 mg PO QDAY 01/21/25 Unknown History release Allergy/AdvReac Type Severity Reaction Status Date / Time JESENIA Inhibitors Allergy Intermediate Cough Verified 05/05/25 14:34 adhesive tape Allergy Intermediate blisters Verified 05/05/25 14:34 dulaglutide (From Trulicity) Allergy Intermediate Gastropares Verified 05/05/25 14:34 is Dressing: Non-Medicated Allergy Rash Verified 05/05/25 14:34 (elastic) NSAIDS (Non-Steroidal Allergy Other Verified 05/05/25 14:34 Anti-Inflamma Latex, Natural Rubber AdvReac Mild RASH Verified 05/05/25 14:34 Family History Other Alcohol abuse Anxiety Arthritis Asthma defect COPD (chronic obstructive pulmonary disease) Cancer Diabetes High cholesterol Hypertension Seizures Surgical History History of repair of left hip joint History of ERCP S/P cholecystectomy History of nasal cauterization History of colonoscopy History of appendectomy History of left mastectomy History of hysterectomy Social History Smoking Status: Former smoker alcohol intake: current alcohol intake frequency: 0-2 drinks per day substance use type: does not use what type of physical activity do you participate in: none ROS ROS ED ROS Narrative Review of systems positive for facial pain. Patient states that she had nasal congestion this morning. She states all the bones of her face hurt her, and it is difficult for her to describe but it just hurts. She states it is mainly in her sinus area. She states her ear does hurt her to. Denies chest pain, shortness of breath, nausea, vomiting, or other symptoms. EXAM Physical Exam Narrative Exam Narrative: Afebrile. Vital signs noted. Nontoxic-appearing. Cardiovascular examination reveals a regular rate and rhythm, lungs are clear to auscultation bilaterally. Abdomen is soft and nontender with positive bowel sounds. HEENT examination is grossly unremarkable, PERRL, EOMI. Left TM occluded by cerumen, right TM without erythema. No mastoid tenderness or erythema bilaterally. No facial cellulitis, no crepitance. Const Vital Signs: 05/05/25 14:34 05/05/25 14:49 Temperature 97.5 F L Temperature Source Temporal Pulse Rate 91 Respiratory Rate 18 Respiratory Effort Normal Respiratory Pattern Normal Blood Pressure 196/81 H Blood Pressure Mean 119 Pulse Ox 97 Oxygen Delivery Method Room Air MDM MDM MDM Narrative Medical decision making narrative: Differential diagnosis includes but not limited to sinusitis versus not otherwise specified facial pain. I have low clinical suspicion for cellulitic process as there is no erythema, no crepitance of the skin so I do not feel that she would have a necrotizing fasciitis. I do not think that she is having acute coronary syndrome. Patient was given Tylenol for analgesia. I reviewed the radiology report of the CT of the facial bones and sinus. There is no fracture and no CT evidence of an acute maxillofacial abnormality seen. Patient states that pain is mainly around her left eye. In review of the specifics of the orbits, no hematoma or other acute abnormality recognized. At this point in time, her blood pressure is elevated but she remains asymptomatic. I will give her 1 clonidine 0.1 mg but she was told to keep track of her blood pressure and follow-up with her primary care provider. She will also follow-up with ophthalmology. Return instructions to the emergency department were reviewed. Disposition is discharged home in stable condition. History & Record Review Discussion w/independent historian: Patient Additional record(s) reviewed:: Prior ED visit Radiography Diagnostic Testing: Clinical Impression(s) from Imaging Studies Facial/Sinus 05/05/25 14:56 IMPRESSION: No CT evidence of an acute maxillofacial abnormality is seen. - Clinical correlation with the site of pain is advised. - Other findings discussed above. Reading Location: [id number] Discharge Plan Triage Chief Complaint: Other, Pain/Inj ED Provider: Andi Garcia Dx/Rx/DC Orders Clinical Impression: Facial pain, Asymptomatic hypertension Instructions: ED High Blood Pressure Hypertension, ED Pain, Acute, Uncertain Cause Prescriptions: No Action hydrochlorothiazide 12.5 mg capsule 12.5 mg PO DAILY gabapentin 300 mg capsule 300 mg PO QHS metoprolol succinate 100 mg tablet extended release 24 hr 100 mg PO DAILY oxybutynin chloride 10 mg tablet extended release 24hr 20 mg PO DAILY aspirin [Adult Low Dose Aspirin] 81 mg tablet,delayed release (DR/EC) 81 mg PO DAILY (DME) pen needle, diabetic [BD Ultra-Fine Tish Pen Needle] 32 gauge x 5/32 needle See Rx Instructions .ROUTE .MEDSUPPLY Qty: 100 5RF Rx Instructions: tid zoledronic ddiw-[id number]-qlosf 5 mg/100 mL piggyback See Rx Instructions .ROUTE ONCE Qty: 100 0RF Rx Instructions: 5 mg once; please infuse over 20 minutes ammonium lactate 12 % lotion topical PRN albuterol sulfate 90 mcg/actuation HFA aerosol inhaler 2 puff inhalation Q4 PRN (Reason: wheezing) pantoprazole 40 mg tablet,delayed release (DR/EC) 40 mg PO QDAY cholecalciferol (vitamin D3) 1,250 mcg (50,000 unit) capsule 1,250 mcg PO QWEEK Qty: 12 1RF fluticasone propionate 1 SPRAY spray,suspension 1 spray intranasal DAILY PRN (Reason: NASAL CONGESTION ) methotrexate sodium 2.5 MG tablet 20 mg PO TEJADA folic acid 1 mg tablet 2 mg PO DAILY losartan 100 mg tablet 100 mg PO DAILY escitalopram oxalate [Lexapro] 10 mg tablet 10 mg PO DAILY PRN (Reason: DEPRESSION ) atorvastatin 20 mg tablet 20 mg PO DAILY metaxalone 800 mg tablet 800 mg PO TID PRN (Reason: MUSCLE CRAMPS) Humulin R U-500 (Conc) Kwikpen 500 unit/mL (3 mL) insulin pen See Rx Instructions subcut TIDCM Rx Instructions: NOON 40U, AT 1700 10U, HS 25U subcutaneously (DME) FreeStyle Mitzi 3 [place] Misc See Rx Instructions .Route Qty: 1 0RF Rx Instructions: As directed (DME) OneTouch Verio test strips Strip See Rx Instructions .Route Qty: 150 12RF Rx Instructions: 4 times per day Primary Care Provider: Brayan Arita Referrals: Brayan Arita MD [Primary Care Provider, Medical] - 1-2 Days if not improving Activity Restrictions/Additional Instructions: Keep track of your blood pressure. Follow-up with your primary care provider. Also follow-up with your eye surgeons as scheduled in the next few days. Return with new or worsening symptoms. Print Language: Liberian Disposition Disposition: Home, Self Care
--- NOTE | 2025-05-05 14:56 | CT_ITS ---
PROCEDURE: SINUS/FACIAL BONE 05/05/2025 REASON FOR EXAM: FACIAL PAIN TECHNIQUE: Procedure Code: CTSI Modality: CT Procedure: SINUS/FACIAL BONE Coronal and Sagittal reconstruction series were provided. One or more dose reduction techniques were used (e.g., Automated exposure control, adjustment of the mA and/or kV according to patient size, use of iterative reconstruction technique). RADIATION DOSE SUMMARY: CTDlvol: 29.38 mGy DLP: 562.15 mGycm COMPARISON: None FINDINGS: Limitations: Evaluation for inflammatory change, abscess or mass is suboptimal without contrast. Soft tissues: No discrete maxillofacial soft tissue hematoma is seen. Mild soft tissue swelling, injury or cellulitis would be best identified on direct clinical exam. No soft tissue emphysema is seen. No visible soft tissue fluid collection is seen. Abscess or mass would be better identified by postcontrast imaging. Orbits: Ocular postoperative changes are seen bilaterally. The ocular globes are symmetric. Retro-orbital fat is preserved bilaterally. No intraconal hematoma seen. Pharynx: Mild prominence of the palatine tonsils noted. Parapharyngeal fat planes are preserved. The epiglottis is not thickened. Paranasal sinuses: No paranasal sinus fluid or air-fluid level seen. No paranasal sinus hemorrhage. No paranasal sinus complete opacification or bone destruction. Middle ear cavities: No middle ear cavity fluid is seen. Mastoid air cells: No mastoid air cell air-fluid level seen. Osseous: No acute maxillofacial fracture is seen. Degenerative change of the visualized upper cervical spine is noted. Dental: The patient is essentially edentulous with mandibular dental implants noted. CT/Sinus/Facial Bone IMPRESSION: No CT evidence of an acute maxillofacial abnormality is seen. - Clinical correlation with the site of pain is advised. - Other findings discussed above. Reading Location: [id number]
[2025-05-05 15:38] VITALS: BP 184/78; PULSE 78; RESP 16; O2SAT 92
[2025-05-05 16:24] VITALS: BP 174/74; PULSE 88; RESP 16; TEMP 36.8; O2SAT 98
--- OUTSIDE RECORDS SUMMARY | 2025-05-05 16:55 | XMS RPT_ITS | CCD ---
Author Organization [facility] Care Team Providers Care Hyperion Analyst Name Role Phone PROVIDER, UNKNOWN Admitting Unavailable PROVIDER, UNKNOWN Attending Unavailable Ilir Hernández MD Primary Care Provider [facility], Bernadette Unavailable Dr. Ilir Hernández Primary Care Provider Kevin, Dr. Schmidt Referring Provider JACOB Hinds Attending Provider Dr. Fidel Olivas Attending Provider [phone] Dr. Charles Chi Attending Provider Dipti Barrios Attending Provider Unavailable Dr. Fidel Olivas Other Provider Dr. Ilir Hernández Primary Care Provider Dr. Ilir Hernández Referring Provider JACOB Hinds Attending Provider Dr. Charles Chi Attending Provider Dr. Fidel Olivas Attending Provider Dr. Otoniel Delong Attending Provider Dr. Ilir Hernández Primary Care Provider Dr. Ilir Hernández Referring Provider Ilir Hernández MD Primary Care Provider [facility], Bernadette Unavailable [facility], Bernadette Unavailable Ilir Hernández MD Primary Care Provider Dr. Ilir Hernández Primary Care Provider Kevin, Dr. Schmidt Referring Provider Dr. Otoniel Delong Attending Provider Dr. Fidel Olivas Attending Provider [phone] Dr. Charles Chi Attending Provider JACOB Hinds Attending Provider [place] Ilir ORTIZ Primary Care Provider [facility], Bernadette Unavailable [place], Dr. Schmidt Primary Care Provider Kevin, Dr. Schmidt Referring Provider JACOB Hinds Attending Provider Rita BHAT PA Sandra Jiang Attending Provider Dr. Fidel Olivas Attending Provider [phone] Kevin, Dr. Schmidt Primary Care Provider [place], Dr. Schmidt Referring Provider HOME Thomas Attending Provider Dr. Fidel Olivas Attending Provider [phone] JACOB Hinds Attending Provider Dr. Charles Chi Attending Provider [place], Dr. Schmidt Primary Care Provider [place], Dr. Schmidt Referring Provider Dr. Fidel Olivas Attending Provider [phone] [place], Dr. Schmidt Primary Care Provider [place], Dr. Schmidt Referring Provider Kevin, Dr. Schmidt Primary Care Provider [place], Dr. Schmidt Referring Provider Dr. Fidel Olivas Attending Provider [phone] Kevin, Dr. Schmidt Primary Care Provider Dr. Elver Carrion Emergency Provider Dr. Reji Nelson Provider Dr. Reji Nelson Attending Provider Dr. Reji Nelson Other Provider Dr. Janet Philip Attending Provider Dr. Janet Philip Other Provider Dr. Yunier Owen Referring Provider Dr. Yunier Owen Other Provider Dr. Edmond Hagen Attending Provider Dr. Ilir Hernández Referring Provider 1([facility])[phone] JACOB Hinds Attending Provider 1([facility])[phone] Dr. Loulou Buenrostro Emergency Provider 1([facility])[phone] Dr. Anthony Singleton Admit Provider Unavailabl e Singleton, Dr. Cruz Other Provider Unavailabl e Suly, Dr. Aaliyah Love Attending Provider Suly, Dr. Aaliyah Love Other Provider 1([facility])[phone] Scott Sutton Other Provider 1([facility])[phone] Ilir Hernández Primary Care Provider 1([facility])[phone] Dr. Yunier Owen Referring Provider Dr. Yunier Owen Other Provider 1([facility])[phone] Edmond Hagen Attending Provider 1([facility])[phone]. Ilir Hernández Referring Provider JACOB Hinds Attending Provider Dr. Loulou Buenrostro Emergency Provider 1([facility])[phone] Dr. Anthony Singleton Admit Provider Unavailabl e Singleton, Dr. Cruz Other Provider Unavailabl e Suly, Dr. Aaliyah Love Attending Provider Suly, Dr. Aaliyah Love Other Provider Dr. Scott Sutton Other Provider 1([facility])[phone] Charles Chi Attending Provider 1([facility])[phone] Ilir Hernández Primary Care Provider Dr. Yunier Owen Referring Provider Dr. Yunier Owen Other Provider Dr. Edmond Hagen Attending Provider Dr. Ilir Hernández Referring Provider Guzman, WHARF OPERATOR-C Traci Attending Provider Dr. Loulou Buenrostro Emergency Provider Dr. Anthony Singleton Admit Provider Unavailabl e Singleton, Dr. Cruz Other Provider Unavailabl e Suly, Dr. Aaliyah Love Attending Provider Suly, Dr. Aaliyah Love Other Provider Dr. Scott Sutton Other Provider Dr. Charles Chi Attending Provider Dr. [place] Jessica Emergency Provider Dr. Jj Whitfield Admit Provider Dr. Jj Whitfield Other Provider Dr. Anthony Perez Attending Provider Unavailable Dr. Anthony Perez Other Provider Unavailable Dr. Jj Whitfield Attending Provider Ilir Hernández MD Primary Care Provider Quinn [facility], Keti Unavailable Haagen 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, Ysabel Unavailable Suppan 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, Claire A Unavailable [phone] Suppan LUBE ATTENDANT.CHRISTA, Claire A Unavailable Dr. Ilir Hernández MD Primary Care Provider Guzman WHARF OPERATOR-CTraci Attending Provider Guzman WHARF OPERATOR-CTraci Referring Provider Dr. Ilir Hernández MD Referring Provider Dr. Charles Chi MD Attending Provider Alex ORTIZ, Dr. Ramos Attending Provider Alex ORTIZ, Dr. Ramos Referring Provider Kevin ORTIZ, Dr. Schmidt Primary Care Provider Kevin ORTIZ, Dr. Schmidt Referring Provider [phone] King ANGEL, Dr. Soto Attending Provider KEVIN, ILIR Chance Primary Care Unavailable KEVIN, ILIR J Attending Unavailable SELF Referring Unavailable KEVIN, ILIR J Primary Care Unavailable DEEPTI CALLAHAN Attending Unavailable KEVIN, ILIR J Primary Care Unavailable CLAIRE LANCASTER Attending Unavailable KEVIN, ILIR J Primary Care Unavailable YUNIER OWEN Attending Unavailable SELF Referring Unavailable KEVIN, ILIR J Primary Care Unavailable CLAIRE LANCASTER Attending Unavailable KEVIN, ILIR J Primary Care Unavailable CLAIRE LANCASTER Referring Unavailable DUTCH HAWK Attending Unavailable KEVIN, ILIR Chance Primary Care Unavailable CLAIRE LANCASTER Referring Unavailable KEVIN, ILIR Chance Primary Care Unavailable KEVIN, ILIR Chance Referring Unavailable YUNIER OWEN Referring Unavailable KEVIN, ILIR Chance Primary Care Unavailable KEVIN, ILIR Chance Primary Care Unavailable KEVIN, ILIR Cahnce Referring Unavailable KEVIN, ILIR Chance Primary Care Unavailable KEVIN, ILIR Chance Attending Unavailable KEVIN, ILIR J Primary Care Unavailable KEVIN, ILIR J Referring Unavailable KEVIN, ILIR J Primary Care Unavailable RENETTA BARBOZA Referring Unavailable KEVIN, ILIR J Primary Care Unavailable RENETTA BARBOZA Referring Unavailable YUNIER OWEN Attending Unavailable KEVIN, ILIR Chance Referring Unavailable KEVIN, ILIR J Primary Care Unavailable KEVIN, ILIR J Referring Unavailable KEVIN, ILIR J Primary Care Unavailable DUTCH HAWK Attending Unavailable KEVIN, ILIR J Primary Care Unavailable ALIYAH HOLT Attending Unavailable YUNIER OWEN Referring Unavailable KEVIN, ILIR Chance Primary Care Unavailable YSABEL EDWARDS Attending Unavailable KEVIN, ILIR J Primary Care Unavailable Kevin, Ilir Primary Care Unavailable Traci Hinds Attending Unavailable Traci Hinds Referring Unavailable [place], Ilir Primary Care Unavailable Rachel Johnson Referring Unavailable Rachel Johnson Attending Unavailable [place], Ilir Primary Care Unavailable Rachel Johnson Referring Unavailable Rachel Johnson Attending Unavailable [place], Ilir Primary Care Unavailable Vellanki, Rachel Referring Unavailable Vellanki, Rachel Attending Unavailable Kevin, Ilir Primary Care Unavailable Vellanki, Rachel Attending Unavailable Vellanki, Rachel Referring Unavailable Alon, Charles Attending Unavailable Kevin, Ilir Primary Care Unavailable [place], Ilir Referring Unavailable [place], Ilir Primary Care Unavailable Kevin, Ilir Referring Unavailable Alon, Charles Attending Unavailable Kevin, Ilir Primary Care Unavailable [place], Ilir Referring Unavailable Alon, Charles Attending Unavailable [place], Ilir Referring Unavailable Kevin, Ilir Primary Care Unavailable Alon, Charles Attending Unavailable Kevin, Ilir Referring Unavailable Kevin, Ilir Primary Care Unavailable Alon, Charles Attending Unavailable Alon, Charles Attending Unavailable [place], Ilir Referring Unavailable [place], Ilir Primary Care Unavailable Kevin, Ilir Primary Care Unavailable Vellanki, Rachel Attending Unavailable Vellanki, Rachel Referring Unavailable Alon, Charles Referring Unavailable Kevin, Ilir Primary Care Unavailable Alon, Charles Attending Unavailable Allergies Allergy Classification Reported Allergen(s) Allergy Type Date of Onset Reaction(s) Facility Adhesive Tape (1 source) Adhesive Tape Substance Allergy 7 Other: See Comments [facility] dulaglutide (1 source) dulaglutide Drug Allergy 1 Other: See Comments [facility] Work Phone: (20 sources) Adhesive Tape; Translations: [ADHESIVE TAPE (ROSINS)] Propensity to adverse reactions to substance 7 Other: See [facility] (15 sources) Angiotensin-con verting enzyme inhibitor agent; Translations: [JESENIA INHIBITORS] Drug Allergy 4 Cough [facility] Work Phone: (20 sources) dulaglutide; Translations: [DULAGLUTIDE] Drug Allergy 1 Other: See Comments [facility] Work Phone: (20 sources) Non-steroidal anti-inflammato ry agent; Translations: [NSAIDS (NON-STEROIDAL ANTI-INFLAMMATO RY DRUG)] Propensity to adverse reactions 9 GI Upset [facility] Work Phone: (20 sources) NSAIDS (Non-Steroidal Anti-Inflamma; Translations: [NSAIDS (Non-Steroidal Anti-Inflamma] Allergy to substance 2 Other [facility] (20 sources) Adhesive Tape; Translations: [adhesive tape] Allergy to substance 2 blisters [facility] (1 source) elastic Allergy to substance 2 [facility] Work Phone: (20 sources) Angiotensin-con verting enzyme inhibitor agent Drug Allergy 4 Cough [facility] Work Phone: (20 sources) Non-steroidal anti-inflammato ry agent Propensity to adverse reactions 9 GI Upset [facility] Work Phone: (17 sources) Chondroitin 4-Sulfate Drug Allergy 2 [facility] (17 sources) hyaluronate Drug Allergy 2 [facility] (17 sources) Angiotensin Converting Enzyme (Jesenia) Inhibitors Allergy to substance 2 Cough [facility] (3 sources) natural latex rubber Propensity to adverse reactions [address] [facility] Comment on above: ELASTIC IN CLOTHING (4 sources) Dressing: Non-Medicated; Translations: [Dressing: Non-Medicated] Allergy to substance 5 [facility] (1 source) Angiotensin Converting Enzyme (Jesenia) Inhibitors Drug allergy (disorder) 5 [facility] Repository (1 source) dulaglutide Drug Allergy 5 [facility] Rep[facility] (1 source) natural latex rubber Drug allergy (disorder) 5 [facility] Repository Medications Current Medications Medication Drug Class(es) Dates Sig (Normalized) Sig (Original) Administered Medications Medication Order MAR Action Action Date Dose Rate Site tuberculin skin test, unspecified formulation Given 10/13/2023 tuberculin skin test, unspecified formulation Given 10/22/2023 (2 sources) Administered Medications Medication Order MAR Action Action Date Dose Rate Site tuberculin skin test, unspecified formulation Given 10/13/2023 tuberculin skin test, unspecified formulation Given 10/22/2023 [id number] 200 actuat albuterol 0.09 mg/actuat metered dose inhaler (20 sources) beta2-Adrenergic Agonist Start: 01-21-2025 Albuterol Sulfate 90 mcg/actuation HFA aerosol inhaler Active 2 NMA INHALATION EVERY 4 HOURS as needed for wheezing January 21, 2025 12:00am Start: 06-05-2021 take 1 puff(s) by in halation every four hours Albuterol Sulfate (Proair Hfa) 90 mcg/actuation Hfa Aerosol Inhaler Active 2 PUFF INHALATION Q4H June 05, 2021 1:44pm Start: 06-05-2021 End: 05-14-2024 Albuterol Sulfate (Proair Hf a) 90 mcg/actuation Hfa Aerosol Inhaler Discontinued 2 NMA INHALATION Q4H as needed for SHORTNESS OF BREATH June 05, 2021 12:00am May 14, 2024 11:43am Start: 06-05-2021 Start: 06-05-2021 take 1 puff(s) by in halation every four hours Albuterol Sulfate (Proair Hfa) 90 mcg/actuation Hfa Aerosol Inhaler Active 2 PUFF INHALATION Q4H June 05, 2021 12:00am Start: 10-05-2018 End: 08-03-2025 take 2 puff(s) by inhalation every four hours as needed for wheezing albuterol HFA (PROVENTIL HFA, VENTOLIN HFA) 90 mcg/actuation inhaler Indications: Asthma with chronic obstructive pulmonary disease (COPD) (HCC) Inhale 2 Puffs as instructed every 4 hours as needed for wheezing/shortness of breath. 1 Each 08/03/2024 08/03/2025 Active Start: 01-30-2014 End: 05-26-2017 take 1 puff(s) by inhalation every four hours as needed Albuterol Sulfate (Ventolin Hfa) 1 INHALER inhaler Discontinued 2 PUFF INHALATION EVERY 4 HOURS NEEDED January 30, 2014 3:07pm May 26, 2017 7:39pm Start: 01-30-2014 End: 05-26-2017 Albuterol Sulfate (Ventolin Hfa) 1 INHALER inhaler Discontinued 2 NMA INHALATION EVERY 4 HOURS NEEDED as needed for Wheezing January 30, 2014 12:00am May 26, 2017 7:39pm Start: 01-30-2014 End: 05-26-2017 Start: 01-30-2014 End: 05-26-2017 take 1 puff(s) by inhalation every four hours as needed Albuterol Sulfate (Ventolin Hfa) 1 INHALER inhaler Discontinued 2 PUFF INHALATION EVERY 4 HOURS NEEDED January 30, 2014 12:00am May 26, 2017 7:39pm Comment on above: Inhale 2 Puffs as in structed every 4 hours as needed. aspirin 81 mg delayed release oral tablet (20 sources) Platelet Aggregation Inhibitor, Nonsteroidal Anti-inflammatory Drug Start: End: Aspirin (Adult Low Dose Aspirin) 81 mg tablet,delayed release (DR/EC) Active 81 mg PO DAILY February 05, 2022 12:00am [facility] Comment on above: Take 81 mg by mouth once daily. atorvastatin 20 mg oral tablet (20 sources) HMG-CoA Reductase Inhibitor Start: End: take 1 tablet by mouth once daily at bedtime for hyperlipidemia atorvastatin (LIPITOR) 20 mg tablet Indications: Mixed hyperlipidemia Take 1 tablet by mouth daily at bedtime. For cholesterol. 30 tablet 5 04/01/2025 09/28/2025 Active Start: 09-11-2021 End: 06-21-2023 take 1 tablet by mouth at bedtime Atorvastatin 10 mg tablet Discontinued 10 mg PO AT BEDTIME February 05, 2022 12:00am June 21, 2023 6:51pm CHOLESTEROL Start: 01-30-2014 End: 05-08-2021 take 1 tablet by mouth at bedtime Atorvastatin 20 MG tablet Discontinued 20 mg PO AT BEDTIME January 30, 2014 12:00am May 08, 2021 10:09am Comment on above: Take 1 tablet by gael th daily at bedtime. For cholesterol. 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, with long-term current use of insulin, unspecified laterality (HCC) Use as directed 2 Each 11/23/2023 10/10/2024 Discontinued Start: 11-23-2023 Blood-Glucose Sensor (FREESTYLE MITZI 3 SENSOR) krystyna Indications: 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, with long-term current use of insulin, unspecified laterality (HCC) Use as directed 2 Each 11 11/23/2023 Active Comment on above: Use as directed Blood-Glucose,Diploma Medical Assistant, Cont (Freestyle Mitzi 3 [place]) misc (3 sources) Start: 11-14-2024 Blood-Glucose,Diploma Medical Assistant,Cont (Freestyle Mitzi 3 [place]) misc Active 0 .Route 1 0 November 14, 2024 12:00am Diabetes mellitus Type 2 diabetes mellitus with hyperglycemia skilled nursing (current) use of insulin As directed Start: 11-14-2024 Blood-Glucose, Diploma Medical Assistant,Cont (Freestyle Mitzi 3 [place]) misc Active 0 .Route 1 November 14, 2024 12:00am As directed cetirizine hydrochloride 10 mg oral tablet (20 sources) Histamine-1 Receptor Antagonist Start: 08-23-2023 End: 04-01-2025 take 1 tablet by mouth once daily cetirizine (ZYRTEC) 10 mg tablet Take 1 tablet by mouth once daily. 30 tablet 2 04/01/2025 Active Comment on above: [facility] cholecalciferol 0.05 mg oral capsule (20 sources) Vitamin D Start: 09-04-2024 End: 01-21-2025 take 1 capsule by mouth every week Cholecalciferol (Vitamin D3) 1,250 mcg (50,000 unit) capsule Active 1250 ug PO EVERY WEEK 07 15January 21, 2025 2:14pm Start: 07-19-2022 End: 09-28-2025 take 1 capsule by mouth once daily Cholecalciferol, Vitamin D3, 50 mcg (2,000 unit) cap Take 1 capsule by mouth once daily. 30 capsule 5 04/01/2025 09/28/2025 Active Comment on above: Take 1 capsule by mo [facility] once daily. COMPOUNDED PRESCRIPTION (20 sources) Start: COMPOUNDED PRESCRIPTION Indications: 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, with long-term current use of insulin, macular edema presence unspecified, unspecified laterality Insulin needles-1/2 cc for 100 u Use up to 4 a day 150 Each 07/28/2017 Active Comment on above: Insulin needles-1/2 cc for 100 u Use up to 4 a day doxycycline hyclate 100 mg oral capsule (20 sources) Tetracycline-cla ss Drug Start: End: take 1 capsule by mouth twice daily doxycycline hyclate (VIBRAMYCIN) 100 mg capsule Indications: Cellulitis of skin Take 1 capsule (100 mg) by mouth two times a day for 10 days. 20 capsule 08/03/2024 08/13/2024 Active Start: 07-04-2023 End: 07-11-2023 take 1 tablet by mouth twice daily doxycycline monohydrate 100 mg tablet Indications: Bacterial pneumonia Take 1 tablet by mouth two times a day for 7 days. 14 tablet 0 07/04/2023 07/11/2023 Active Start: 06-21-2023 End: 07-01-2023 take 1 capsule by mouth twice daily doxycycline hyclate (VIBRAMYCIN) 100 mg capsule Take 1 capsule by mouth two times a day for 10 days. 20 capsule 06/21/2023 07/01/2023 Start: 03-07-2023 End: 05-06-2023 take 1 capsule by mouth twice daily Doxycycline Hyclate 100 mg capsule Discontinued 100 mg PO TWICE A DAY 120 60 0 March 07, 2023 12:00am May 05, 2023 12:00am May 06, 2023 12:05am Comment on above: Take 1 capsule by mo [facility] two times a day for 10 days. Take 1 tablet by gael two times a day for 7 days. erythromycin 0.005 mg/mg ophthalmic ointment (20 sources) Macrolide, Macrolide Antimicrobial Start: 09-16-19 erythromycin (ROMYCIN) 5 mg/gram (0.5 %) ophthalmic ointment APPLY OINTMENT INTO EACH EYE NIGHTLY 09/16/2024 Active escitalopram 10 mg oral tablet (20 sources) Serotonin Reuptake Inhibitor Start: 10-11-19 End: 04-01-20 take 1 tablet by mouth once daily escitalopram oxalate (LEXAPRO) 10 mg tablet Indications: Anxiety Take 1 tablet by mouth once daily. 90 tablet 1 04/01/2025 Active Comment on above: Take 1 tablet by gael once daily. fluticasone propionate 0.05 mg/actuat metered dose nasal spray (20 sources) Corticosteroid Start: 09-21-19 20 End: 10-14-19 21 take 1 spray(s) nasal route once daily at bedtime fluticasone (FLONASE) 50 mcg/actuation nasal spray Use 1 [place] in each nostril daily at bedtime. Use as directed. 1 Bottle 11 09/21/2019 10/13/2020 Discontinued Start: 01-30-2014 End: 04-01-2025 take 1 spray(s) nasal route once daily at bedtime fluticasone (FLONASE) 50 mcg/actuation nasal spray Indications: Seasonal allergic rhinitis, unspecified trigger USE 1 SPRAY IN EACH NOSTRIL ONCE DAILY AT BEDTIME DIRECTED 16 g 11 04/01/2025 Active Start: 01-30-2014 Fluticasone Pr opionate Active 1 SPRAY INTRANASAL DAILY January 30, 2014 12:00am Comment on above: USE 1 SPRAY IN EACH NOSTRIL ONCE DAILY AT BEDTIME DIRECTED fluticasone / salmeterol (20 sources) Corticosteroid, beta2-Adrenergic Agonist Start: take 1 puff(s) by inhalation twice daily fluticasone-salmeter ol (WIXELA INHUB) 500-50 mcg/dose dsdv Indications: Mild persistent asthma without complication (HCC) Inhale 1 puff as instructed two times a day. 60 each 02/19/2025 Active Start: 08-03-2024 End: 02-19-2025 take 1 puff(s) by inhalation twice daily fluticasone-salmeterol (ADVAIR, WIXELA) 250-50 mcg/dose inhaler Indications: Asthma with chronic obstructive pulmonary disease (COPD) (HCC) Inhale 1 Puff as instructed two times a day. 60 Each 08/03/2024 02/19/2025 Discontinued Start: 08-03-2024 End: 08-03-2025 take 1 puff(s) by inhalation twice daily fluticasone-salmeterol (ADVAIR, WIXELA) 250-50 mcg/dose inhaler Indications: Asthma with chronic obstructive pulmonary disease (COPD) (HCC) Inhale 1 Puff as instructed two times a day. 60 Each 08/03/2024 08/03/2025 Active FOLDING WALKER WITH 5 WHEEL S (20 sources) Start: 11-22-2023 FOLDING WALKER WITH 5 WHEELS Indications: Leg pain, left , Closed fracture of left hip with routine healing, subsequent encounter , S/p left hip fracture , S/P ORIF (open reduction internal fixation) fracture Use with ambulation 1 Each 11/22/2023 Active Start: 11-22-2023 FOLDING WALKER WITH 5 WHEELS Indications: Leg pain, left , Closed fracture of left hip with routine healing, subsequent encounter , S/p left hip fracture , S/P ORIF (open reduction internal fixation) fracture Use with ambulation 1 Each 0 11/22/2023 Active Start: 11-10-2023 End: 11-22-2023 FOLDING WALKER WITH 5 WHEEL S Indications: S/p left hip fracture , S/P ORIF (open reduction internal fixation) fracture Use with ambulation 1 Each 0 11/10/2023 11/22/2023 Discontinued Start: 11-10-2023 FOLDING WALKER WITH 5 WHEELS Indications: S/p left hip fracture , S/P ORIF (open reduction internal fixation) fracture Use with ambulation 1 Each 0 11/10/2023 Active Comment on above: Use with ambulation folic acid 1 mg oral tablet (20 sources) Start: 06-05-2021 Start: 05-21-2015 End: 12-22-2022 take 2 tablets by mouth once daily Folic Acid 1 mg tablet Active 2 mg PO DAILY June 05, 2021 12:00am SUPPLEMENT FOLIC ACID ORAL Take by mouth. Active FOLIC ACID ORAL Take by mouth. 0 Active Comment on above: Take 2 tablets by mo ut once daily. Dr. Johnson Take by mouth. gabapentin 300 mg oral capsule (20 sources) Anti-epileptic Agent Start: 02-02-2022 End: 02-05-2022 Gabapentin 300 mg capsule Discontinued NMA PO February 02, 2022 12:00am February 05, 2022 3:48pm Start: 09-11-2021 End: 08-16-2025 take 1 capsule by mouth once daily at bedtime gabapentin (NEURONTIN) 300 mg capsule Indications: Lumbar pain Take 1 capsule by mouth daily at bedtime. 90 capsule 2 08/16/2024 08/16/2025 Active Comment on above: Take 1 capsule by mo ut daily at bedtime for 90 days. Take 1 capsule by mo uth daily at bedtime. hydroCHLOROthiazide 12.5 mg oral capsule (20 sources) Thiazide Diuretic Start: 2019 End: 2024 take 1 capsule by mouth once daily hydroCHLOROthiazide 12.5 mg capsule Take 1 capsule by mouth once daily. 30 capsule 11 04/01/2025 Active Start: 04-16-2017 End: 04-29-2017 take 1 capsule by mouth once daily Hydrochlorothiazide 12.5 MG capsule Discontinued 12.5 mg PO DAILY April 16, 2017 12:00am April 29, 2017 9:12am Comment on above: Take 1 capsule by [facility] once daily. 3 ml insulin, regular, human 500 unt/ml pen injector (20 sources) Insulin Start: 03-19-2024 End: 01-04-2025 HUMULIN R U-500, CONC, KWIKPEN 500 unit/mL (3 mL) inpn Indications: 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) 55 units in AM with meal and 35 units in PM with meal Per Dr. Chi. 5 each 11 01/04/2025 Active Start: 12-01-2023 End: 03-19-2024 HUMULIN R U-500, CONC, KWIKP EN 500 unit/mL (3 mL) inpn Indications: 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) 70 units am/65 units sq at lunch/30 sq at dinner 5 Each 11 12/01/2023 03/19/2024 Discontinued (Adjust Sig - Block E-Cancel) Start: 06-21-2023 End: 11-10-2023 Insulin Regular Hum U-500 Co nc (Humulin R U-500 (Conc) Kwikpen) 500 unit/mL (3 mL) insulin pen Discontinued 75 U SC 3 TIMES DAILY WITH MEALS June 21, 2023 1:00am November 10, 2023 11:35am 70 BREAKFAST 70 LUNCH 40 DINNER Start: 11-26-2022 End: 12-28-2023 Insulin Regular Hum U-500 Co nc (Humulin R U-500 (Conc) Kwikpen) 500 unit/mL (3 mL) insulin pen Discontinued 0 SC 3 TIMES DAILY WITH MEALS 10.8 5 November 10, 2023 11:30am December 28, 2023 12:30am breakfast- 70 u, lunch 70 u, dinner 40 u subcutaneously 3 times daily with meals Start: 11-26-2022 End: 01-18-2023 Insulin Regular Hum U-500 Co nc (Humulin R U-500 (Conc) Kwikpen) 500 unit/mL (3 mL) insulin pen Discontinued 75 U SC .tid with meals 15 November 26, 2022 12:00am January 18, 2023 8:47am Comment on above: Inject 75 Units subc utaneously three times daily. Inject 75 Units subc utaneously three times daily. 70/70/55 Inject subcutaneousl y three times daily. 70/70/40 70/65/30 70 units am/65 units sq at lunch/30 sq at dinner ammonium lactate 120 mg/ml topical lotion (20 sources) Start: 01-21-2025 Ammonium Lactate 12 % lotion Active TOPICAL as needed January 21, 2025 12:00am Start: 08-03-2024 End: 01-30-2025 ammonium lactate (LAC-HYDRIN ) 12 % lotion Indications: Cellulitis of skin Apply to affected area as needed. 225 g 5 08/03/2024 01/30/2025 Active losartan potassium 100 mg oral tablet (20 sources) Angiotensin 2 Receptor Leon Start: 08-10-2019 End: 04-01-2025 take 1 tablet by mouth once daily losartan (COZAAR) 100 mg tablet Indications: Essential hypertension Take 1 tablet by mouth once daily. 30 tablet 11 04/01/2025 Active Comment on above: Take 1 tablet by gael th once daily. metaxalone 800 mg oral tablet (20 sources) Start: 06-05-2021 End: 11-22-2023 take 1 tablet by mouth three times daily as needed Metaxalone 800 mg tablet Active 800 mg PO THREE TIMES A DAY as needed for MUSCLE CRAMPS June 21, 2023 1:00am Start: 04-10-2020 End: 07-16-2020 take 1 tablet by mouth every eight hours as needed for muscle spasms and muscle spasms metaxalone (SKELAXIN) 800 mg tablet Indications: Muscle spasm Take 1 tablet by mouth three times daily as needed for Pain. 30 tablet 04/10/2020 07/16/2020 Discontinued Comment on above: Take 1 tablet by gael th three times daily as needed for pain. methotrexate 2.5 mg oral tablet (20 sources) Folate Analog Metabolic Inhibitor Start: take 8 tablets by mouth once methotrexate 2.5 mg tablet Take 8 tablets by mouth every Tuesday. 96 tablet 3 04/07/2025 Active Start: 04-07-2025 End: 04-01-2025 take 8 tablets by mouth once methotrexate 2.5 mg table t Take 8 tablets by mouth every Tuesday. 96 tablet 3 04/07/2025 04/01/2025 Discontinued Start: 04-07-2025 take 8 tablets by mouth once m ethotrexate 2.5 mg tablet Take 8 tablets by mouth every Tuesday. 96 tablet 3 04/07/2025 Active Start: 01-11-2023 End: 04-01-2025 methotrexate 2.5 mg tablet T roberto 20 mg by mouth every Tuesday. 01/11/2023 04/01/2025 Discontinued Start: 01-11-2023 methotrexate 2 .5 mg tablet Start: 04-16-2017 Methotrexate S odium 2.5 MG tablet Active 20 mg PO TEJADA April 16, 2017 12:00am BREAST CANCER Start: 04-16-2017 Start: 04-16-2017 Methotrexate S odium Active 20 MG PO TEJADA April 16, 2017 12:00am Start: 08-29-2016 End: 12-22-2022 methotrexate 2.5 mg tablet Indications: Inflammatory polyarthritis (HCC) Take 20 mg by mouth every Tuesday. 08/29/2016 12/22/2022 Discontinued (Other) Comment on above: Take 20 mg by mouth every Tuesday. 24 hr metoprolol succinate 100 mg extended release oral tablet (20 sources) beta-Adrenergic Leon Start: 01-15-2022 End: 09-28-2025 take 1 tablet by mouth once daily metoprolol succinate ER (TOPROL XL) 100 mg Indications: Essential hypertension , Essential tremor Take 1 tablet by mouth once daily. 30 tablet 5 04/01/2025 09/28/2025 Active Start: 06-05-2021 End: 02-24-2022 Metoprolol Succinate 50 mg t ablet extended release 24 hr Discontinued 100 mg PO DAILY June 05, 2021 12:00am February 24, 2022 9:50am HEART Start: 06-05-2021 End: 03-02-2022 Start: 06-05-2021 End: 07-13-2022 take 100 mg by mouth once daily Metoprolol Succinate Discontinued 100 MG PO DAILY June 05, 2021 12:00am February 24, 2022 9:50am Start: 08-10-2019 End: 11-27-2020 take 1 tablet by mouth once daily metoprolol succinate ER (TOPROL XL) 50 mg 24 hr tablet Indications: Essential tremor , Essential hypertension Take 1 tablet by mouth once daily. 30 tablet 5 08/10/2019 11/27/2020 Discontinued Comment on above: Take 1 tablet by gael once daily. 24 hr oxybutynin chloride 10 mg extended release oral tablet (20 sources) Cholinergic Muscarinic Antagonist Start: 02-05-2022 End: 02-20-2025 take 1 tablet by mouth once daily Oxybutynin Chloride 10 mg tablet extended release 24hr Active 20 mg PO DAILY February 05, 2022 12:00am OVERACTIVE BLADDER Start: 02-05-2022 Start: 09-14-2021 End: 01-30-2025 take 2 tablets by mouth once daily oxybutynin ER (DITROPAN XL) 10 mg 24 hr tablet Indications: OAB (overactive bladder) Take 2 tablets by mouth once daily. 180 tablet 1 08/03/2024 01/30/2025 Active Start: 06-05-2021 End: 02-05-2022 take 1 tablet by mouth once daily Oxybutynin Chloride 5 mg tablet Discontinued 5 mg PO DAILY June 05, 2021 12:00am February 05, 2022 3:37pm BLADDER Start: 09-27-2019 End: 02-10-2021 take 1 tablet by mouth once daily oxybutynin (DITROPAN) 5 mg tablet Take 1 tablet by mouth once daily. 90 tablet 3 09/27/2019 02/10/2021 Discontinued Comment on above: Take 1 tablet by gael once daily. Take 2 tablets by mo [facility] once daily. pantoprazole 40 mg delayed release oral tablet (20 sources) Proton Pump Inhibitor Start: 025 End: 026 take 1 tablet by mouth once daily pantoprazole DR (PROTONIX) 40 mg tablet Indications: Gastroesophageal reflux disease without esophagitis Take 1 tablet by mouth once daily. 90 tablet 3 08/16/2024 08/16/2025 Active solifenacin succinate 10 mg oral tablet (6 sources) Cholinergic Muscarinic Antagonist Start: take 1 tablet by mouth once daily solifenacin (VESICARE) 10 mg tablet Indications: Urinary frequency Take 1 tablet by mouth once daily. 30 tablet 2 02/20/2025 Active tiZANidine 2 mg oral tablet (6 sources) Central alpha-2 Adrenergic Agonist Start: take 1 tablet by mouth every six hours as needed for muscle spasms and muscle spasms tiZANidine (ZANAFLEX) 2 mg tablet Indications: Muscle spasm Take 1 tablet by mouth every 6 hours as needed. 20 tablet 02/20/2025 Active triamcinolone acetonide 1 mg/ml topical cream (20 sources) Corticosteroid Start: End: triamcinolone acetonide (KENALOG) 0.1 % cream Indications: Lichen planus Apply 1 application to affected area two times a day. Apply to affected area. Location: legs 80 g 3 08/16/2024 02/12/2025 Active Start: 05-14-2023 End: 05-21-2023 triamcinolone acetonide (STIA ALOG) 0.1 % cream Apply 1 application to affected area three times a day for 7 days. Apply sparingly to area for rash/itching. 80 g 0 05/14/2023 05/21/2023 Active Comment on above: Apply 1 application to affected area three times a day for 7 days. Apply sparingly to area for rash/itching. 100 ml zoledronic acid 0.05 mg/ml injection (20 sources) Bisphosphonate Start: 08-30-2024 Zoledronic Mxnk-Uqffwvls-Icims 5 mg/100 mL piggyback Active 0 .ROUTE ONCE 100 0 August 30, 2024 1:00am Osteoporosis Age-related osteoporosis without current pathological fracture 5 mg once; please infuse over 20 minutes Start: 02-05-2022 End: 06-21-2023 Start: 02-05-2022 End: 06-21-2023 Zoledronic Vvnm-Twpwfxra-Wgg er (Reclast) 5 mg/100 mL piggyback Discontinued 1 EACH IV every 6 months February 05, 2022 12:00am June 21, 2023 6:27pm 1 ea intravenously every 6 months; IV [id number] Start: 05-26-2020 End: 06-21-2023 Zoledronic Jwpr-Hpsryazp-Cwp er (Reclast) 5 mg/100 mL piggyback Discontinued 1 NMA IV every 6 months February 05, 2022 12:00am June 21, 2023 6:27pm OSTEOPEROSIS 1 ea intravenously every 6 months; IV [id number] Comment on above: Inject 100 mL intrav enously once every 6 months. (20 sources) Start: 11-21-2023 Start: 11-15-2023 Start: 11-26-2022 Start: 10-20-2022 End: 11-26-2022 Start: 09-01-2022 End: 10-20-2022 Start: 04-05-2022 End: 09-01-2022 Start: 02-22-2022 End: 04-05-2022 Start: 02-08-2022 End: 07-07-2022 Start: 02-05-2022 End: 02-22-2022 Start: 02-02-2022 End: 06-22-2023 Start: 01-26-2022 End: 02-05-2022 Start: 01-21-2022 End: 01-26-2022 Start: 07-02-2021 End: 07-02-2021 Start: 07-02-2021 End: 07-02-2021 Start: 07-02-2021 End: 10-22-2021 Start: 07-02-2021 End: 10-22-2021 Completed/Discontinued Medications Medication Drug Class(es) Dates Sig (Normalized) Sig (Original) acetaminophen 325 mg oral tablet (20 sources) Start: 04-29-2017 End: 05-26-2017 Acetaminophen (Tylenol) 325 MG tablet Discontinued 650 mg PO EVERY 6 HOURS NEEDED as needed for TEMP > 100.5 F 0 April 29, 2017 12:00am May 26, 2017 7:39pm Start: 04-29-2017 End: 05-26-2017 acetaminophen 325 mg / HYDROcodone bitartrate 5 mg oral tablet (20 sources) Opioid Agonist Start: 05-02-2022 End: 12-22-2022 Hydrocodone-Acetaminophen 5- 325 mg tablet Discontinued 1 {tbl} PO EVERY 6 HOURS NEEDED as needed for Pain 8 2 0 May 02, 2022 November 26, 2022 1:06pm Left elbow pain Pain in left elbow Start: 05-02-2022 End: 11-26-2022 Start: 05-02-2022 End: 11-26-2022 take 1 tablet by mouth every six hours as needed Hydrocodone-Acetaminophen Discontinued 1 TABLET PO EVERY 6 HOURS NEEDED 8 2 May 02, 2022 November 26, 2022 1:06pm Comment on above: Take 1 tablet by gael th every 6 hours as needed for pain. albuterol 0.833 mg/ml / ipratropium bromide 0.167 mg/ml inhalation solution (20 sources) Anticholinergic, beta2-Adrenergic Agonist Start: 7 End: take 1 mL by inhalation every six hours Ipratropium-Albuterol 3 ML Ampul.Neb Discontinued 3 mL INHALATION EVERY 6 HOURS WHILE AWAKE 0 April 29, 2017 12:00am May 26, 2017 7:39pm Start: 04-29-2017 End: 05-26-2017 Start: 04-29-2017 End: 05-26-2017 take 1 mL by inhalation every six hours Ipratropium-Albuterol Discontinued 3 ML INHALATION EVERY 6 HOURS WHILE AWAKE April 29, 2017 12:00am May 26, 2017 7:39pm amLODIPine 5 mg oral tablet (20 sources) Dihydropyridine Calcium Channel Leon Start: 04-06-2024 End: 01-21-2025 take 1 tablet by mouth once daily Amlodipine (Norvasc) 5 mg tablet Discontinued 5 mg PO DAILY 30 April 06, 2024 12:00am January 21, 2025 2:02pm Start: 12-22-2022 End: 12-22-2023 take 1 tablet by mouth once daily amLODIPine (NORVASC) 5 mg tablet Indications: Primary hypertension Take 1 tablet by mouth once daily. 30 tablet 11 12/22/2022 12/22/2023 Active Start: 11-23-2021 End: 02-05-2022 take 1 tablet by mouth once daily Amlodipine 2.5 mg tablet Discontinued 2.5 mg PO DAILY 90 3 November 23, 2021 12:00am February 05, 2022 3:47pm Comment on above: Take 1 tablet by gael th once daily. amoxicillin 500 mg oral capsule (10 sources) Penicillin-class Antibacterial Start: 01-18-20 take 1 capsule by mouth three times daily amoxicillin (AMOXIL) 500 mg capsule Take 500 mg by mouth three times daily. 0 01/17/2023 Active Comment on above: Take 500 mg by mouth three times daily. amoxicillin 875 mg / clavulanate 125 mg oral tablet (9 sources) Penicillin-class Antibacterial Start: 06-23-20 End: 08-17-19 Amoxicillin-Pot Clavulanate 875-125 mg tablet Discontinued 1 {tbl} PO TWICE A DAY 10 June 23, 2023 1:00am August 17, 2023 10:24am Start: 06-23-2023 End: 08-17-2023 Start: 06-23-2023 End: 08-17-2023 take 1 tablet by mouth twice daily Amoxicillin-Pot Clavulanate Discontinued 1 TABLET PO TWICE A DAY 10 June 23, 2023 1:00am August 17, 2023 10:24am amylase [id number] unt / lipase [id number] unt / protease [id number] unt delayed release oral capsule (20 sources) Start: 03-07-2023 End: 06-21-2023 take [id number] capsules by mouth three times daily at mealtime Ornxhw-Bmrymblv-Sdxryfu (Creon) 24,000-76,000 -120,000 unit capsule,delayed release(DR/EC) Discontinued 1 NMA PO THREE TIMES A DAY June 21, 2023 1:00am June 21, 2023 6:56pm administer with meals and/or snacks Start: 03-07-2023 End: 06-21-2023 azithromycin 250 mg oral tablet (20 sources) Macrolide Antimicrobial Start: 07-13-2014 End: 04-29-2017 take 2 tablets by mouth once daily, then take 1 tablet by mouth once daily Azithromycin (Zithromax Z-Alfa) 250 MG tablet Discontinued 250 mg PO DIRECTED July 13, 2014 1:00am April 29, 2017 9:12am TAKE 2 TABLETS 1ST DAY THEN 1 TABLET DAILY FOR NEXT 4 DAYS. augmented betamethasone 0.0005 mg/mg topical ointment (20 sources) Corticosteroid Start: 08-23-2023 End: 11-21-2023 Aug Betamethasone Dipropionate (DIPROLENE) 0.05 % ointment Indications: Vasculitis (HCC) Apply to affected area two times a day. 60 g 2 08/23/2023 11/21/2023 Start: 06-13-2023 End: 08-23-2023 Aug Betamethasone Dipropiona te (DIPROLENE, AUGMENTED,) 0.05 % ointment Indications: Dermatitis Apply to affected area two times a day. 45 g 06/13/2023 08/23/2023 Discontinued Comment on above: Apply to affected ar ea two times a day. Blood-Glucose Meter monitoring kit (20 sources) Start: 11-10-2023 End: 08-16-2024 Blood-Glucose Meter monitoring kit Glucose Meter of Choice - Kit - Dx: Type 2 DM - Controlled E11.9 Insulin: Yes 1 Each 11/10/2023 08/16/2024 Discontinued Start: 11-10-2023 Blood-Glucose Meter monitoring kit Glucose Meter of Choice - Kit - Dx: Type 2 DM - Controlled E11.9 Insulin: Yes 1 Each 11/10/2023 Active Start: 11-10-2023 Blood-Glucose Meter monitoring kit Glucose Meter of Choice - Kit - Dx: Type 2 DM - Controlled E11.9 Insulin: Yes 1 Each 0 11/10/2023 Active Start: 03-02-2018 Blood-Glucose Meter monitoring kit Glucose Meter of Choice - Kit - Dx: Type 2 DM - Controlled E11.9 1 Each 03/02/2018 Active Start: 03-02-2018 Blood-Glucose Meter monitoring kit Glucose Meter of Choice - Kit - Dx: Type 2 DM - Controlled E11.9 1 Each 0 03/02/2018 Active Comment on above: Glucose Meter of Cho ice - Kit - Dx: Type 2 DM - Controlled E11.9 Glucose Meter of [place] ice - Kit - Dx: Type 2 DM - Controlled E11.9 Insulin: Yes Blood-Glucose Meter,Continuous (FREESTYLE MITZI 3 READER) misc (20 sources) Start: 11-23-2023 End: 08-16-2024 Blood-Glucose Meter,Continuous (FREESTYLE MITZI 3 READER) misc Indications: 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 1 Each 0 11/23/2023 Active Comment on above: Use as directed. 120 actuat budesonide 0.18 mg/actuat dry powder inhaler (1 source) Corticosteroid Start: 020 End: take 2 puff(s) by inhalation twice daily budesonide (PULMICORT FLEXHALER) 180 mcg/actuation aepb Indications: Cough Inhale 2 Puffs as instructed twice daily. 1 Inhaler 2 09/03/2019 08/28/2020 Discontinued 120 actuat budesonide 0.16 mg/actuat / formoterol fumarate 0.0048 mg/actuat / glycopyrrolate 0.009 mg/actuat metered dose inhaler (8 sources) Corticosteroid, beta2-Adrenergic Agonist Start: 024 End: 025 take 2 puff(s) by inhalation twice daily budesonide-glycopyr -formoterol (BREZTRI) 160-9-4.8 mcg/actuation HFA aerosol inhaler Inhale 2 Puffs as instructed two times a day. 10.7 g 5 04/03/2024 08/03/2024 Discontinued (Discontinued by Patient) Calcium Carbonate (1 source) End: CALCIUM CARBONATE (CALCIUM 600 ORAL) Take by mouth once daily. 02/26/2021 Discontinued cephalexin 500 mg oral capsule (20 sources) Cephalosporin Antibacterial Start: 022 End: 023 take 1 capsule by mouth every six hours Cephalexin 500 mg capsule Discontinued 500 mg PO EVERY 6 HOURS 40 0 May 02, 2022 12:00am July 07, 2022 9:45am Comment on above: Take 1 capsule by [facility] every 6 hours. clobetasol propionate 0.5 mg/ml topical cream (1 source) Corticosteroid Start: 019 End: 021 clobetasol (TEMOVATE) 0.05 % cream Apply 1 application to affected area twice daily. 15 g 1 11/22/2018 02/26/2021 Discontinued CPAP (20 sources) Start: End: 023 CPAP Indications: RICARDO (obstructive sleep apnea) Autopap 5-20 cm H2O, Heat Humidity, suitable mask, [employer], opt [place], G47.33. 1 Device 10/31/2019 12/22/2022 Discontinued (Other) Start: 10-31-2019 End: 12-22-2022 CPAP Indications: RICARDO (obstr uctive sleep apnea) Autopap 5-20 cm H2O, Heat Humidity, suitable mask, [employer], opt [place], G47.33. 1 Device 0 10/31/2019 12/22/2022 Discontinued (Other) Start: 10-31-2019 CPAP Indicatio ns: RICARDO (obstructive sleep apnea) Autopap 5-20 cm H2O, Heat Humidity, suitable mask, [employer], opt [place], G47.33. 1 Device 0 10/31/2019 Active Comment on above: Autopap 5-20 cm H2O, Heat Humidity, suitable mask, [employer], opt [place], G47.33. CPAP/BIPAP/OTHER (20 sources) Start: 02-21-2024 End: 04-01-2025 CPAP/BIPAP/OTHER Type .CPAPSettings into a note to see current settings/supplies/DME information. 1 Each 02/21/2024 04/01/2025 Discontinued Start: 02-21-2024 End: 07-08-2051 CPAP/BIPAP/OTHER Type .CPAPS ettings into a note to see current settings/supplies/DME information. 1 Each 02/21/2024 07/08/2051 Active Start: 02-21-2024 End: 07-08-2051 CPAP/BIPAP/OTHER Type .CPAPS ettings into a note to see current settings/supplies/DME information. 1 Each 0 02/21/2024 07/08/2051 Active diazePAM 2 mg oral tablet (20 sources) Benzodiazepine Start: 12-04-2022 End: 06-21-2023 take 1 tablet by mouth three times daily as needed for muscle spasms Diazepam (Valium) 2 mg tablet Discontinued 2 mg PO THREE TIMES A DAY as needed for MUSCLE SPASMS 15 5 0 December 04, 2022 12:00am June 21, 2023 6:53pm Muscle spasm Other muscle spasm take 1 tablet by gael th every eight hours as needed diazePAM (VALIUM) 2 mg tablet Take 2 mg by mouth every 8 hours as needed (muscle spasms). Active Comment on above: TAKE 1 TABLET BY AGEL TH THREE TIMES DAILY NEEDED FOR MUSCLE SPASM FOR 5 DAYS doxepin hydrochloride 50 mg/ml topical cream (20 sources) Tricyclic Antidepressant Start: 2023 End: 2023 doxepin (ZONALON) 5 % cream Apply to affected area three times a day as needed for itching/rash (do not exceed dosing). 15 g 2 09/02/2023 12/01/2023 Comment on above: Apply to affected ar ea three times a day as needed for itching/rash (do not exceed dosing). 0.5 ml dulaglutide 3 mg/ml auto-injector (1 source) GLP-1 Receptor Agonist Start: 2018 End: 2019 inject 1.5 mg by subcutaneous injection every week dulaglutide (TRULICITY) 1.5 mg/ 0.5 ml subcutaneous pen injector Inject 1.5 mg subcutaneously one time a week. 4 Pen 11 05/17/2019 07/01/2020 Discontinued esomeprazole 20 mg delayed release oral capsule (20 sources) Proton Pump Inhibitor Start: 2023 End: 2024 take 1 capsule by mouth once daily before breakfast esomeprazole (NEXIUM) 20 mg capsule Take 1 capsule by mouth daily before breakfast. 1/2 hr before meal. 90 capsule 3 07/09/2024 08/16/2024 Discontinued (Clinical Decision) Start: 06-05-2021 End: 01-21-2025 take 1 capsule by mouth once daily Esomeprazole Magnesium (Nexium) 40 mg capsule,delayed release(DR/EC) Discontinued 40 mg PO DAILY November 26, 2022 1:06pm January 21, 2025 2:03pm ACID REFLUX Start: 02-06-2020 End: 04-03-2024 take 1 capsule by mouth twice daily Esomeprazole Magnesium (Nexium) 40 mg capsule,delayed release(DR/EC) Discontinued 40 mg PO TWICE A DAY June 05, 2021 12:00am November 26, 2022 1:09pm gerd Comment on above: Take 1 capsule by mo [facility] twice daily before meals. 1/2 hr before meal. Take 1 capsule by mo ut two times a day before meals. 1/2 hr before meal. famotidine 20 mg oral tablet (20 sources) Histamine-2 Receptor Antagonist Start: 4 End: 4 take 1 tablet by mouth every twenty-four hours as needed famotidine (PEPCID) 20 mg tablet Take 1 tablet by mouth at bedtime as needed. 60 tablet 1 08/23/2023 04/03/2024 Discontinued Start: 08-13-2019 End: 05-28-2020 take 1 tablet by mouth twice daily famotidine (PEPCID) 20 mg tablet Indications: Iron deficiency anemia, unspecified iron deficiency anemia type Take 1 tablet by mouth twice daily. 60 tablet 3 08/13/2019 05/28/2020 Discontinued Start: 04-29-2017 End: 05-26-2017 Famotidine 20 MG tablet Disc ontinued 20 mg GT TWICE A DAY 0 April 29, 2017 12:00am May 26, 2017 7:39pm Start: 04-29-2017 End: 05-26-2017 Comment on above: Take 1 tablet by [facility] at bedtime as needed. ferrous sulfate 325 mg oral tablet (1 source) Start: 02-20-20 End: 01-08-20 21 take 1 tablet by mouth twice daily at mealtime ferrous sulfate 325 mg (65 mg iron) tablet Indications: Iron deficiency anemia, unspecified iron deficiency anemia type Take 1 tablet by mouth twice daily with meals. 60 tablet 3 02/20/2020 01/07/2021 Discontinued fexofenadine hydrochloride 180 mg oral tablet (10 sources) Histamine-1 Receptor Antagonist Start: 06-21-20 23 End: 11-21-19 24 take 1 tablet by mouth twice daily Fexofenadine ([place] Allergy) 180 mg tablet Discontinued 180 mg PO TWICE A DAY June 21, 2023 1:00am November 21, 2023 12:13pm ALLERGIES Flash Glucose Scanning [place] (Freestyle Mitzi 2 [place]) [facility] (20 sources) Start: 07-02-20 End: 10-23-19 Flash Glucose Scanning [place] (Freestyle Mitzi 2 [place]) misc Discontinued 0 .ROUTE .MEDSUPPLY 1 July 02, 2021 3:24pm October 22, 2021 11:12am As directed Start: 07-02-2021 End: 07-02-2021 Flash Glucose Scanning [place] (Freestyle Mitzi 2 [place]) misc Discontinued 0 .ROUTE .MEDSUPPLY 1 July 02, 2021 3:16pm July 02, 2021 3:24pm As directed Start: 07-02-2021 End: 07-02-2021 Flash Glucose Scanning [place] (Freestyle Mitzi 2 [place]) misc Discontinued 0 .ROUTE .MEDSUPPLY 1 0 July 02, 2021 1:00am July 02, 2021 3:24pm Type 2 diabetes mellitus Type 2 diabetes mellitus with hyperglycemia 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 (current) use of insulin As directed Start: 07-02-2021 End: 10-22-2021 Flash Glucose Scanning [place] (Freestyle Mitzi 2 [place]) misc Discontinued 0 .ROUTE .MEDSUPPLY 1 0 July 02, 2021 1:00am October 22, 2021 11:12am Type 2 diabetes mellitus Type 2 diabetes mellitus with hyperglycemia 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 (current) use of insulin As directed Start: 07-02-2021 End: 07-02-2021 Flash Glucose Scanning [place] (Freestyle Mitzi 2 [place]) misc Discontinued 0 .ROUTE .MEDSUPPLY 1 July 02, 2021 12:00am July 02, 2021 2:24pm As directed Start: 07-02-2021 End: 10-22-2021 Flash Glucose Scanning [place] (Freestyle Mitzi 2 [place]) misc Discontinued 0 .ROUTE .MEDSUPPLY 1 July 02, 2021 12:00am October 22, 2021 10:12am As directed Start: 07-02-2021 End: 07-02-2021 Flash Glucose Scanning [place] (Freestyle Mitzi 2 [place]) misc Discontinued 0 .ROUTE .MEDSUPPLY 1 July 02, 2021 1:00am July 02, 2021 3:24pm As directed Start: 07-02-2021 End: 10-22-2021 Flash Glucose Scanning [place] (Freestyle Mitzi 2 [place]) misc Discontinued 0 .ROUTE .MEDSUPPLY 1 July 02, 2021 1:00am October 22, 2021 11:12am As directed Flash Glucose Sensor (Freest yle Mitzi 2 Sensor) kit (20 sources) Start: 02-08-2022 End: 07-07-2022 Flash Glucose Sensor (Freest yle Mitzi 2 Sensor) kit Discontinued 0 .Route 6 February 08, 2022 12:00am July 07, 2022 9:46am As directed Start: 02-08-2022 End: 07-07-2022 Flash Glucose Sensor (Freest yle Mitzi 2 Sensor) kit Discontinued 0 .Route February 08, 2022 12:00am July 07, 2022 9:46am As directed Start: 02-08-2022 End: 07-07-2022 Flash Glucose Sensor (Freest yle Mitzi 2 Sensor) kit Discontinued 0 .Route February 07, 2022 11:00pm July 07, 2022 8:46am As directed Start: 02-08-2022 Flash Glucose Sensor (Freestyle Mitzi 2 Sensor) kit Active 0 .Route February 07, 2022 11:00pm As directed Start: 02-08-2022 Flash Glucose Sensor (Freestyle Mitzi 2 Sensor) kit Active 0 .Route February 08, 2022 12:00am As directed Start: 07-02-2021 End: 10-22-2021 Flash Glucose Sensor (Freest yle Mitzi 2 Sensor) kit Discontinued 0 .ROUTE .MEDSUPPLY 2 July 02, 2021 3:25pm October 22, 2021 11:12am As directed Start: 07-02-2021 End: 07-02-2021 Flash Glucose Sensor (Freest yle Mitzi 2 Sensor) kit Discontinued 0 .ROUTE .MEDSUPPLY 2 July 02, 2021 3:16pm July 02, 2021 3:24pm As directed Start: 07-02-2021 End: 07-02-2021 Flash Glucose Sensor (Freest yle Mitzi 2 Sensor) kit Discontinued 0 .ROUTE .MEDSUPPLY 2 July 02, 2021 1:00am July 02, 2021 3:24pm Type 2 diabetes mellitus Type 2 diabetes mellitus with hyperglycemia 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 (current) use of insulin As directed Start: 07-02-2021 End: 10-22-2021 Flash Glucose Sensor (Freest yle Mitzi 2 Sensor) kit Discontinued 0 .ROUTE .MEDSUPPLY 2 July 02, 2021 1:00am October 22, 2021 11:12am Type 2 diabetes mellitus Type 2 diabetes mellitus with hyperglycemia 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 (current) use of insulin As directed Start: 07-02-2021 End: 07-02-2021 Flash Glucose Sensor (Freest yle Mitzi 2 Sensor) kit Discontinued 0 .ROUTE .MEDSUPPLY 2 July 02, 2021 12:00am July 02, 2021 2:24pm As directed Start: 07-02-2021 End: 10-22-2021 Flash Glucose Sensor (Freest yle Mitzi 2 Sensor) kit Discontinued 0 .ROUTE .MEDSUPPLY 2 July 02, 2021 12:00am October 22, 2021 10:12am As directed Start: 07-02-2021 End: 07-02-2021 Flash Glucose Sensor (Freest yle Mitzi 2 Sensor) kit Discontinued 0 .ROUTE .MEDSUPPLY 2 July 02, 2021 1:00am July 02, 2021 3:24pm As directed Start: 07-02-2021 End: 10-22-2021 Flash Glucose Sensor (Freest yle Mitzi 2 Sensor) kit Discontinued 0 .ROUTE .MEDSUPPLY 2 July 02, 2021 1:00am October 22, 2021 11:12am As directed fluorometholone 1 mg/ml opht halmic suspension (20 sources) Corticosteroid Start: 06-05-2021 End: 06-21-2023 Start: 06-05-2021 End: 06-21-2023 Fluorometholone (Fml Liquifi lm) 0.1 % Drops,Suspension Discontinued 2 NMA LEFT EYE TWICE A DAY June 05, 2021 12:00am June 21, 2023 6:28pm Comment on above: Use 2 Drops in the l eft eye twice daily. 30 actuat fluticasone furoate 0.1 mg/actuat / umeclidinium 0.0625 mg/actuat / vilanterol 0.025 mg/actuat dry powder inhaler (20 sources) Anticholinergic, Corticosteroid, beta2-Adrenergic Agonist Start: 06-05-2021 Ibjzqwiddbo-Pflzknyfd-U ilanter (Trelegy Ellipta) 100-62.5-25 mcg blister with device Active 1 INH INHALATION DAILY June 05, 2021 1:44pm Start: 06-05-2021 End: 12-28-2023 Eqtljtnbxun-Vlcukvcou-Zjhure er (Trelegy Ellipta) 100-62.5-25 mcg blister with device Discontinued 1 NMA INHALATION DAILY June 05, 2021 12:00am December 28, 2023 12:32am SHORTNESS OF BREATH Start: 06-05-2021 End: 12-28-2023 Mhsfnowihsh-Rqufctnuy-Wsyhns er (Trelegy Ellipta) 100-62.5-25 mcg blister with device Discontinued 1 NMA INHALATION DAILY June 05, 2021 12:00am December 28, 2023 12:32am Start: 06-05-2021 Start: 06-05-2021 Fluticasone-Um eclidin-Vilanter (Trelegy Ellipta) 100-62.5-25 mcg blister with device Active 1 INH INHALATION DAILY June 04, 2021 11:00pm Start: 06-05-2021 Fluticasone-Um eclidin-Vilanter (Trelegy Ellipta) 100-62.5-25 mcg blister with device Active 1 INH INHALATION DAILY June 05, 2021 12:00am Start: 03-25-2021 End: 09-07-2023 take 1 puff(s) by inhalation once daily pksnjxhmjaw-tzoiukshu-olyhcmds (TRELEGY ELLIPTA) 100-62.5-25 mcg inhalation powder Indications: Chronic cough Inhale 1 Puff as instructed once daily. 1 Each 5 07/19/2022 09/07/2023 Discontinued (Other) Comment on above: Inhale 1 Puff as ins tructed once daily. fluticasone-umeclid in-vilanter (TRELEGY ELLIPTA) 200-62.5-25 mcg inhalation powder (20 sources) Start: End: take 1 puff(s) by inhalation once daily fluticasone-umeclidi n-vilanter (TRELEGY ELLIPTA) 200-62.5-25 mcg inhalation powder Inhale 1 Puff as instructed once daily. 60 Each 08/18/2023 04/03/2024 Discontinued Start: 08-18-2023 take 1 puff(s) by inhalation once daily crgtidwcahf-wnitvkyhk-btgkovfp (TRELEGY ELLIPTA) 200-62.5-25 mcg inhalation powder Inhale 1 Puff as instructed once daily. 60 Each 5 08/18/2023 Active Start: 08-18-2023 End: 02-14-2024 take 1 puff(s) by inhalation once daily ldxxxxipobu-xpccgmyen-emjbmtao (TRELEGY ELLIPTA) 200-62.5-25 mcg inhalation powder Inhale 1 Puff as instructed once daily. 60 Each 08/18/2023 02/14/2024 Active Comment on above: Inhale 1 Puff as ins tructed once daily. glimepiride 4 mg oral tablet (20 sources) Sulfonylurea Start: End: take 1 tablet by mouth twice daily Glimepiride 4 mg tablet Discontinued 4 mg PO TWICE A DAY 60 1 October 22, 2021 1:00am February 05, 2022 3:47pm 12 hr guaiFENesin 1200 mg extended release oral tablet (3 sources) Start: End: take 1 tablet by mouth twice daily, then take 1 tablet by mouth every twelve hours Guaifenesin (Mucinex) 1,200 mg tablet extended release 12hr Discontinued 1200 mg PO TWICE A DAY 14 7 0 November 21, 2023 12:00am December 28, 2023 12:33am 3 ml insulin aspart, human 100 unt/ml pen injector (20 sources) Insulin Analog Start: End: inject 14 [IU] by subcutaneous injection at breakfast, then inject 14 [IU] by subcutaneous injection at mealtime, then inject 8 [IU] by subcutaneous injection at mealtime insulin aspart U-100 (NOVOLOG) 100 unit/mL (3 mL) Inject subcutaneously 14 units with breakfast, and 14 units with 2nd meal, and 8 units with 3rd meal. 5 Pen 3 2020 05/26/2020 Discontinued (Adjust Sig - Block E-Cancel) Start: 05-26-2017 End: 06-05-2021 Insulin Aspart U-100 (Novolo g Flexpen U-100 Insulin) 100 UNITS/ML insulin pen Discontinued 13 U SC THREE TIMES DAILY BEFORE MEALS 0 May 26, 2017 12:00am June 05, 2021 8:52am Start: 04-29-2017 End: 06-05-2021 Insulin Aspart U-100 (Novolo g Flexpen U-100 Insulin) 100 UNITS/ML insulin pen Discontinued 0 U SC EVERY 6 HOURS 0 April 29, 2017 12:00am June 05, 2021 8:52am Start: 01-30-2014 End: 05-26-2017 Insulin Aspart U-100 (Novolo g Flexpen U-100 Insulin) 100 UNITS/ML Flexpen Discontinued 12 U SC 3 TIMES DAILY WITH MEALS January 30, 2014 12:00am May 26, 2017 7:39pm Start: 01-30-2014 End: 04-06-2022 Comment on above: Inject 15 units subc utaneously three times daily before meals. 3 ml insulin degludec 200 unt/ml pen injector (20 sources) Insulin Analog Start: 07-07-2022 End: 11-26-2022 Insulin Degludec (Tresiba Flextouch U-200) 200 unit/mL (3 mL) insulin pen Discontinued 40 U SC DAILY 18 October 06, 2022 4:48pm November 26, 2022 1:19pm Diabetes mellitus Type 2 diabetes mellitus with hyperglycemia skilled nursing (current) use of insulin Start: 03-16-2022 End: 07-07-2022 Insulin Degludec (Tresiba Fl extouch U-200) 200 unit/mL (3 mL) insulin pen Discontinued 30 U SC DAILY 15 March 16, 2022 12:00am July 07, 2022 9:48am Start: 03-16-2022 End: 11-26-2022 Start: 06-05-2021 End: 02-08-2022 Insulin Degludec (Tresiba Fl extouch U-100) 100 unit/mL (3 mL) insulin pen Discontinued 50 U SC AT BEDTIME June 05, 2021 12:00am February 08, 2022 7:24am DM Start: 06-05-2021 End: 06-05-2021 Insulin Degludec (Tresiba Fl extouch U-200) 200 unit/mL (3 mL) insulin pen Discontinued 18 U SC .TID June 05, 2021 12:00am June 05, 2021 8:52am SLIDING SCALE Start: 06-05-2021 End: 02-17-2023 Start: 06-05-2021 End: 06-05-2021 Start: 05-16-2020 End: 07-16-2020 insulin degludec (TRESIBA FL EXTOUCH U-100) 100 unit/mL (3 mL) injection pen Inject 57 Units subcutaneously daily at bedtime. 18 mL 5 05/16/2020 07/16/2020 Discontinued Comment on above: Inject 66 Units subc utaneously daily at bedtime. 3 ml insulin detemir 100 unt/ml pen injector (20 sources) Insulin Analog Start: 04-29-2017 End: 06-05-2021 Insulin Detemir U-100 (Levemir Flextouch U100 Insulin) 100 UNITS/ML insulin pen Discontinued 40 U SC TWICE A DAY 0 April 29, 2017 12:00am June 05, 2021 8:51am Start: 04-29-2017 End: 06-05-2021 Start: 04-29-2017 End: 06-05-2021 Insulin Detemir U-100 (Levem ir Flextouch U-100 Insuln) 100 UNITS/ML insulin pen Discontinued 40 UNITS SC TWICE A DAY April 29, 2017 12:00am June 05, 2021 8:51am 3 ml insulin glargine 100 unt/ml pen injector (20 sources) Insulin Analog Start: 01-30-2014 End: 04-29-2017 Insulin Glargine (Lantus Solostar Pen) 100 UNITS/ML Pen Discontinued 62 U SC AT BEDTIME January 30, 2014 12:00am April 29, 2017 9:13am Start: 01-30-2014 End: 04-29-2017 Start: 01-30-2014 End: 04-29-2017 Insulin Glargine (Lantus [place]ira ostar Pen) 100 UNITS/ML Pen Discontinued 62 UNITS SC AT BEDTIME January 30, 2014 12:00am April 29, 2017 9:13am insulin lispro-aabc 100 unt/ml injectable solution (20 sources) Insulin Analog Start: 02-08-2022 End: 11-26-2022 Insulin Lispro-Aabc (Lyumjev U-100 Insulin) 100 unit/mL solution Discontinued 150 U SC .PUMP February 08, 2022 8:19am November 26, 2022 1:19pm via insulin pump Start: 02-08-2022 End: 03-16-2022 Insulin Lispro-Aabc (Lyumjev Kwikpen U-100 Insulin) 100 unit/mL insulin pen Discontinued 40 U SC .PUMP February 08, 2022 8:19am March 16, 2022 8:31am Start: 12-18-2021 End: 02-08-2022 Insulin Lispro-Aabc (Lyumjev U-100 Insulin) 100 unit/mL solution Discontinued 150 U SC DAILY 50 6 December 18, 2021 12:00am February 08, 2022 8:19am via insulin pump Start: 12-18-2021 End: 11-26-2022 Start: 10-29-2021 End: 02-08-2022 Insulin Lispro-Aabc (Lyumjev Kwikpen U-100 Insulin) 100 unit/mL insulin pen Discontinued 40 U SC THREE TIMES A DAY 36 October 29, 2021 12:00am February 08, 2022 8:19am Start: 10-29-2021 End: 12-22-2022 Start: 10-22-2021 End: 10-29-2021 Insulin Lispro-Aabc (Lyumjev Kwikpen U-200 Insulin) 200 unit/mL (3 mL) insulin pen Discontinued 40 U SC .TIDCM 18 October 22, 2021 1:00am October 29, 2021 4:39pm Start: 10-22-2021 End: 10-29-2021 Start: 06-05-2021 End: 04-06-2022 HUMALOG KWIKPEN INSULIN 200 unit/mL (3 mL) injection Sliding scale 0 06/05/2021 04/06/2022 Discontinued (Discontinued by another Health Care Provider) Start: 06-05-2021 End: 10-22-2021 Insulin Lispro (Humalog Pen) 100 unit/mL Insulin Pen Discontinued 15 U SC THREE TIMES A DAY June 05, 2021 12:00am October 22, 2021 11:12am Start: 06-05-2021 End: 10-22-2021 Comment on above: Sliding scale Inject 22 Units subc utaneously three times daily before meals. 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 of insulin 1 pod every 36 hours Start: 10-20-2022 End: 11-26-2022 Insulin Pump Cart,Cont Inf,B t (Omnipod Dash Pods (Gen 4)) cartridge Discontinued 0 .ROUTE .MEDSUPPLY 60 October 20, 2022 2:54pm November 26, 2022 12:20pm 1 pod every 36 hours Start: 10-20-2022 End: 11-26-2022 Insulin Pump Cart,Cont Inf,B t (Omnipod Dash Pods (Gen 4)) cartridge Discontinued 0 .ROUTE .MEDSUPPLY 60 October 20, 2022 3:54pm November 26, 2022 1:20pm 1 pod every 36 hours Start: 09-01-2022 End: 10-20-2022 Insulin Pump Cart,Cont Inf,B t (Omnipod Dash Pods (Gen 4)) cartridge Discontinued 0 .ROUTE .MEDSUPPLY 60 2 September 01, 2022 1:45pm October 20, 2022 3:54pm Type 2 diabetes mellitus Type 2 diabetes mellitus with hyperglycemia 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 (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) use of insulin 1 pod every 36 hours Start: 09-01-2022 End: 10-20-2022 Insulin Pump Cart,Cont Inf,B t (Omnipod Dash Pods (Gen 4)) cartridge Discontinued 0 .ROUTE .MEDSUPPLY 60 September 01, 2022 12:45pm October 20, 2022 2:54pm 1 pod every 36 hours Start: 09-01-2022 End: 10-20-2022 Insulin Pump Cart,Cont Inf,B t (Omnipod Dash Pods (Gen 4)) cartridge Discontinued 0 .ROUTE .MEDSUPPLY 60 September 01, 2022 1:45pm October 20, 2022 3:54pm 1 pod every 36 hours Start: 09-01-2022 Insulin Pump C art,Cont Inf,Bt (Omnipod Dash Pods (Gen 4)) cartridge Active 0 .ROUTE .MEDSUPPLY 60 September 01, 2022 12:45pm 1 pod every 36 hours Start: 04-05-2022 End: 09-01-2022 Insulin Pump Cart,Cont Inf,B t (Omnipod Dash Pods (Gen 4)) cartridge Discontinued 0 .ROUTE .MEDSUPPLY 60 1 April 05, 2022 7:12am September 01, 2022 1:46pm Type 2 diabetes mellitus Type 2 diabetes mellitus with hyperglycemia skilled nursing (current) use of insulin 1 pod every 36 hours Start: 04-05-2022 End: 09-01-2022 Insulin Pump Cart,Cont Inf,B t (Omnipod Dash Pods (Gen 4)) cartridge Discontinued 0 .ROUTE .MEDSUPPLY 60 April 05, 2022 7:12am September 01, 2022 1:46pm 1 pod every 36 hours Start: 04-05-2022 End: 09-01-2022 Insulin Pump Cart,Cont Inf,B t (Omnipod Dash Pods (Gen 4)) cartridge Discontinued 0 .ROUTE .MEDSUPPLY 60 April 05, 2022 6:12am September 01, 2022 12:46pm 1 pod every 36 hours Start: 04-05-2022 Insulin Pump C art,Cont Inf,Bt (Omnipod Dash Pods (Gen 4)) cartridge Active 0 .ROUTE .MEDSUPPLY 60 April 05, 2022 6:12am 1 pod every 36 hours Start: 04-05-2022 Insulin Pump C art,Cont Inf,Bt (Omnipod Dash Pods (Gen 4)) cartridge Active 0 .ROUTE .MEDSUPPLY 60 April 05, 2022 7:12am 1 pod every 36 hours Start: 02-22-2022 End: 04-05-2022 Insulin Pump Cart,Cont Inf,B t (Omnipod Dash Pods (Gen 4)) cartridge Discontinued 0 .ROUTE .MEDSUPPLY 60 1 February 22, 2022 12:56pm April 05, 2022 7:12am Type 2 diabetes mellitus Type 2 diabetes mellitus with hyperglycemia 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 (current) use of insulin 1 pod every 36 hours Start: 02-22-2022 End: 04-05-2022 Insulin Pump Cart,Cont Inf,B t (Omnipod Dash Pods (Gen 4)) cartridge Discontinued 0 .ROUTE .MEDSUPPLY 60 February 22, 2022 11:56am April 05, 2022 6:12am 1 pod every 36 hours Start: 02-22-2022 End: 04-05-2022 Insulin Pump Cart,Cont Inf,B t (Omnipod Dash Pods (Gen 4)) cartridge Discontinued 0 .ROUTE .MEDSUPPLY 60 February 22, 2022 12:56pm April 05, 2022 7:12am 1 pod every 36 hours Start: 02-22-2022 Insulin Pump C art,Cont Inf,Bt (Omnipod Dash Pods (Gen 4)) cartridge Active 0 .ROUTE .MEDSUPPLY 60 February 22, 2022 12:56pm 1 pod every 36 hours Start: 02-05-2022 End: 02-22-2022 Insulin Pump Cart,Cont Inf,B t (Omnipod Dash Pods (Gen 4)) cartridge Discontinued 0 .ROUTE .MEDSUPPLY 60 1 February 05, 2022 2:07pm February 22, 2022 12:56pm Type 2 diabetes mellitus Type 2 diabetes mellitus with hyperglycemia skilled nursing (current) use of insulin 1 pod every 36 hours Start: 02-05-2022 End: 02-22-2022 Insulin Pump Cart,Cont Inf,B t (Omnipod Dash Pods (Gen 4)) cartridge Discontinued 0 .ROUTE .MEDSUPPLY 60 February 05, 2022 1:07pm February 22, 2022 11:56am 1 pod every 36 hours Start: 02-05-2022 End: 02-22-2022 Insulin Pump Cart,Cont Inf,B t (Omnipod Dash Pods (Gen 4)) cartridge Discontinued 0 .ROUTE .MEDSUPPLY 60 February 05, 2022 2:07pm February 22, 2022 12:56pm 1 pod every 36 hours Start: 02-05-2022 Insulin Pump C art,Cont Inf,Bt (Omnipod Dash Pods (Gen 4)) cartridge Active 0 .ROUTE .MEDSUPPLY 60 February 05, 2022 2:07pm 1 pod every 36 hours Start: 01-26-2022 End: 02-05-2022 Insulin Pump Cart,Cont Inf,B t (Omnipod Dash Pods (Gen 4)) cartridge Discontinued 0 .ROUTE .MEDSUPPLY 30 January 26, 2022 7:07am February 05, 2022 2:08pm Type 2 diabetes mellitus Type 2 diabetes mellitus with hyperglycemia skilled nursing (current) use of insulin 1 pod every 72 hours Start: 01-26-2022 End: 02-05-2022 Insulin Pump Cart,Cont Inf,B t (Omnipod Dash Pods (Gen 4)) cartridge Discontinued 0 .ROUTE .MEDSUPPLY January 26, 2022 6:07am February 05, 2022 1:08pm 1 pod every 72 hours Start: 01-26-2022 End: 02-05-2022 Insulin Pump Cart,Cont Inf,B t (Omnipod Dash Pods (Gen 4)) cartridge Discontinued 0 .ROUTE .MEDSUPPLY January 26, 2022 7:07am February 05, 2022 2:08pm 1 pod every 72 hours Start: 01-21-2022 End: 01-26-2022 Insulin Pump Cart,Cont Inf,B t (Omnipod Dash Pods (Gen 4)) cartridge Discontinued 0 .ROUTE .MEDSUPPLY 10 January 21, 2022 12:00am January 26, 2022 7:07am Type 2 diabetes mellitus Type 2 diabetes mellitus with hyperglycemia skilled nursing (current) use of insulin 1 pod every 72 hours Start: 01-21-2022 End: 01-26-2022 Insulin Pump Cart,Cont Inf,B t (Omnipod Dash Pods (Gen 4)) cartridge Discontinued 0 .ROUTE .MEDSUPPLY January 20, 2022 11:00pm January 26, 2022 6:07am 1 pod every 72 hours Start: 01-21-2022 End: 01-26-2022 Insulin Pump Cart,Cont Inf,B t (Omnipod Dash Pods (Gen 4)) cartridge Discontinued 0 .ROUTE .MEDSUPPLY January 21, 2022 12:00am January 26, 2022 7:07am 1 pod every 72 hours linaclotide 0.072 mg oral capsule (20 sources) Guanylate Cyclase-C Agonist Start: 04-01-2021 End: 12-22-2022 take 1 capsule by mouth once daily Linaclotide (Linzess) 72 mcg capsule Discontinued 72 ug PO DAILY June 05, 2021 12:00am November 26, 2022 1:07pm IBS Comment on above: Take 1 capsule by mo [facility] once daily. Administer on an empty stomach. Swallow whole; DO NOT crush or chew. loratadine 10 mg oral tablet (20 sources) Start: 06-26-2021 End: 12-28-2023 take 1 tablet by mouth once daily as needed Loratadine 10 mg tablet Discontinued 10 mg PO DAILY as needed for ALLERGIES November 26, 2022 1:07pm December 28, 2023 12:33am Start: 08-29-2019 End: 08-28-2020 take 1 tablet by mouth once daily loratadine (CLARITIN) 10 mg tablet Indications: Cough Take 1 tablet by mouth once daily. 30 tablet 5 08/29/2019 08/28/2020 Discontinued (Course of therapy completed) Comment on above: Take 1 tablet by [facility] once daily. LORazepam 0.5 mg oral tablet (20 sources) Benzodiazepine Start: End: take 2 tablets by mouth every six hours as needed for anxiety Lorazepam 0.5 MG tablet Discontinued 1 mg PO EVERY 6 HOURS NEEDED as needed for restlessness/anxiety 30 0 May 26, 2017 12:00am February 05, 2022 3:48pm Start: 05-26-2017 End: 02-05-2022 melatonin 3 mg oral tablet (20 sources) Start: 12-20-2022 End: 04-01-2025 melatonin 3 mg tablet Indications: Shift work sleep disorder , Insomnia, unspecified type Take 1 tablet at 9PM nightly. 90 tablet 1 12/20/2022 04/01/2025 Discontinued Comment on above: Take 1 tablet at 9PM nightly. 24 hr metFORMIN hydrochloride 500 mg extended release oral tablet (20 sources) Biguanide Start: 06-05-2021 End: 12-28-2023 take 1 tablet by mouth every twenty-four hours at breakfast Metformin 500 mg tablet extended release 24 hr Discontinued 500 mg PO WITH BREAKFAST November 26, 2022 1:26pm December 28, 2023 12:34am DIABETES Start: 06-05-2021 End: 11-26-2022 Metformin 500 mg tablet exte nded release 24 hr Discontinued 2000 mg PO WITH BREAKFAST June 05, 2021 12:00am November 26, 2022 1:26pm DM Start: 06-05-2021 End: 11-26-2022 take 2000 mg by mouth at breakfast Metformin Discontinued 2000 MG PO WITH BREAKFAST June 05, 2021 12:00am November 26, 2022 1:26pm Start: 03-19-2021 End: 08-02-2023 take 1 tablet by mouth once daily at breakfast metFORMIN ER (GLUCOPHAGE XR) 500 mg 24 hr tablet Take 1 tablet by mouth daily with breakfast. 02/17/2023 08/02/2023 Discontinued Start: 11-05-2019 End: 03-19-2021 take 1 tablet by mouth twice daily at mealtime metFORMIN (GLUCOPHAGE) 1,000 mg tablet Take 1 tablet by mouth twice daily with meals. 60 tablet 3 11/05/2019 03/19/2021 Discontinued (Side Effects) Start: 01-30-2014 End: 06-05-2021 take 1 tablet by mouth once daily Metformin 1,000 MG tablet Discontinued 1000 mg PO DAILY January 30, 2014 12:00am June 05, 2021 8:57am Comment on above: Take 4 tablets by mo uth daily with breakfast. Take 1 tablet by gael th daily with breakfast. MULTIVITAMIN W-MINERALS/LUTEIN (CENTRUM SILVER ORAL) (1 source) End: 02-27-20 MULTIVITAMIN W-MINERALS/LUTEIN (CENTRUM SILVER ORAL) Take by mouth once daily. 02/26/2021 Discontinued nitrofurantoin, macrocrystals 25 mg / nitrofurantoin, monohydrate 75 mg oral capsule (20 sources) Nitrofuran Antibacterial Start: 11-10-19 End: 12-28-19 take 1 capsule by mouth twice daily Nitrofurantoin Monohyd/M-Cryst 100 mg capsule Discontinued 1 NMA PO TWICE A DAY November 15, 2023 12:00am December 28, 2023 12:34am Start: 06-15-2023 End: 06-23-2023 take 1 capsule by mouth twice daily Nitrofurantoin Monohyd/M-Cryst 100 mg capsule Discontinued 100 mg PO TWICE A DAY June 21, 2023 1:00am June 23, 2023 9:06am UTI TAKE ONE CAPSULE BY MOUTH TWICE DAILY. FILLED A 7 DAY SUPPLY. 4 CAPSULES (2 DAYS) ARE LEFT. STARTED ON 06-16-23 AND WILL END ON 06-23-23. Comment on above: Take 1 capsule by mo ut two times a day with meals for 7 days. nystatin [id number] unt/ml topical cream (20 sources) Polyene Antifungal Start: 3 End: 4 nystatin (MYCOSTATIN) cream Indications: Vaginal discomfort Apply 1 application to affected area two times a day. 45 g 07/04/2023 11/07/2023 Discontinued Comment on above: Apply 1 application to affected area two times a day. omeprazole 20 mg delayed release oral capsule (20 sources) Proton Pump Inhibitor Start: 4 End: 7 take 1 capsule by mouth once daily Omeprazole 20 MG capsule Discontinued 20 mg PO DAILY January 30, 2014 12:00am May 26, 2017 7:40pm End: 02-20-2025 Omeprazole 20 mg TbEC Take b y mouth. 02/20/2025 Discontinued ondansetron 4 mg disintegrating oral tablet (20 sources) Serotonin-3 Receptor Antagonist Start: 12-04-2022 End: 02-20-2025 take 1 tablet by mouth three times daily as needed for nausea Ondansetron 4 mg tablet,disintegrating Discontinued 4 mg PO THREE TIMES A DAY as needed for NAUSEA/VOMITING 21 0 December 04, 2022 5:12am June 21, 2023 6:27pm Comment on above: DISSOLVE 1 TABLET IN MOUTH THREE TIMES DAILY NEEDED FOR NAUSEA AND VOMITING Ostomy Supplies (Allkare Protect Barrier Wipes) misc (19 sources) Start: 02-02-2022 End: 06-22-2023 Ostomy Supplies (Allkare Protect Barrier Wipes) misc Discontinued 0 .Route 50 1 February 02, 2022 12:00am June 22, 2023 10:45am every 3 days Start: 02-02-2022 End: 06-22-2023 Ostomy Supplies (Allkare Pro tect Barrier Wipes) misc Discontinued 0 .Route 50 February 02, 2022 12:00am June 22, 2023 10:45am every 3 days Start: 02-02-2022 End: 06-22-2023 Ostomy Supplies (Allkare Pro tect Barrier Wipes) misc Discontinued 0 .Route 50 February 01, 2022 11:00pm June 22, 2023 9:45am every 3 days Start: 02-02-2022 Ostomy Supplie s (Allkare Protect Barrier Wipes) misc Active 0 .Route 50 February 01, 2022 11:00pm every 3 days Start: 02-02-2022 Ostomy Supplie s (Allkare Protect Barrier Wipes) misc Active 0 .Route 50 February 02, 2022 12:00am every 3 days oxyCODONE hydrochloride 5 mg oral tablet (10 sources) Opioid Agonist Start: 12-30-2023 End: 05-14-2024 take 2.5 mg by mouth every four hours as needed for pain Oxycodone 5 mg tablet Discontinued 2.5 mg PO EVERY 4 HOURS NEEDED as needed for Pain Score 4-10 10 3 0 December 30, 2023 May 14, 2024 11:46am Common bile duct calculus Cholelithiasis Status post cholecystectomy Calculus of bile duct without cholangitis or cholecystitis without obstruction Calculus of gallbladder without cholecystitis without obstruction Acquired absence of other specified parts of digestive tract Start: 10-13-2023 End: 11-17-2023 take 1 tablet by mouth every six hours as needed for pain Oxycodone 5 mg Tablet Discontinued 5 mg PO EVERY 6 HOURS NEEDED as needed for Pain Score 6-10 12 3 0 October 13, 2023 November 17, 2023 9:10pm Closed fracture of left hip phentermine hydrochloride 37.5 mg oral tablet (20 sources) Sympathomimetic Amine Anorectic Start: 02-25-2022 End: 06-21-2023 Phentermine 37.5 mg tablet Discontinued 30 mg PO DAILY 30 September 10, 2022 9:09am June 21, 2023 6:27pm must administer 30 minutes before or 1-2 hours after breakfast Start: 02-25-2022 End: 06-21-2023 Start: 02-25-2022 End: 06-21-2023 take 30 mg by mouth once daily 30 minutes after breakfast Phentermine Discontinued 30 MG PO DAILY September 10, 2022 9:09am June 21, 2023 6:27pm must administer 30 minutes before or 1-2 hours after breakfast Comment on above: TAKE 1 TABLET BY GAEL TH ONCE DAILY, 30 MINUTES BEFORE OR 1 TO 2 HOURS AFTER BREAKFAST. predniSONE 20 mg oral tablet (20 sources) Start: End: take 2 tablets by mouth once daily Prednisone 20 mg tablet Discontinued 40 mg PO DAILY 6 3 0 November 21, 2023 12:00am December 28, 2023 12:35am Start: 06-23-2023 End: 10-10-2023 take 2 tablets by mouth at breakfast Prednisone 20 mg Tablet Discontinued 40 mg PO WITH BREAKFAST 8 4 0 June 23, 2023 1:00am October 11, 2023 12:59am Start: 06-23-2023 End: 10-10-2023 take 40 mg by mouth at breakfast Prednisone Discontinu ed 40 MG PO WITH BREAKFAST 8 4 June 23, 2023 1:00am October 11, 2023 12:59am Start: 07-13-2014 End: 06-05-2021 take 6 tablets by mouth once daily, then take 4 tablets by mouth once daily, then take 2 tablets by mouth once daily, then take 1 tablet by mouth once daily Prednisone 10 MG tablet Discontinued 10 mg PO DAILY 48 0 July 13, 2014 1:00am June 05, 2021 2:02pm 6 po qd x 3 days, 4 po qd x 3 days, 2 po qd x 3 days, 1 po qd x 3 days Start: 07-13-2014 End: 06-21-2023 take 1 tablet by mouth once daily as needed for arthritis Prednisone 10 MG tablet Discontinued 10 mg PO DAILY as needed for arthritis June 05, 2021 2:00pm June 21, 2023 6:27pm End: 12-22-2022 PREDNISONE ORAL Take by mout h as needed. 12/22/2022 Discontinued (Other) End: 12-22-2022 PREDNISONE ORAL Take by mout h as needed. 0 12/22/2022 Discontinued (Other) PREDNISONE ORAL Take by mouth as needed. 0 Active Comment on above: Take by mouth as nee ded. rivaroxaban 10 mg oral tablet (7 sources) Factor Xa Inhibitor Start: 10-13-19 End: 12-28-19 take 1 tablet by mouth once daily Rivaroxaban (Xarelto) 10 mg Tablet Discontinued 10 mg PO DAILY@0600 30 0 October 13, 2023 1:00am December 28, 2023 12:35am rosuvastatin calcium 5 mg oral tablet (20 sources) HMG-CoA Reductase Inhibitor Start: 05-08-20 End: 02-06-20 Rosuvastatin 5 mg tablet Discontinued 5 mg PO June 05, 2021 2:00pm February 05, 2022 3:38pm CHOLESTEROL Take only Tuesday- will titrate as tolerated sucralfate 1000 mg oral tablet (20 sources) Aluminum Complex Start: 05-26-20 End: 06-21-20 take 1 tablet by mouth twice daily Sucralfate 1 gram tablet Discontinued 1 g PO TWICE A DAY November 04, 2021 12:00am June 21, 2023 6:27pm Comment on above: Take 1 tablet by gael th twice daily before meals. 24 hr tolterodine tartrate 4 mg extended release oral capsule (20 sources) Cholinergic Muscarinic Antagonist Start: 01-31-20 End: 05-26-20 take 1 capsule by mouth once daily Tolterodine 4 MG Cap.Sa Discontinued 4 mg PO DAILY January 30, 2014 12:00am May 26, 2017 7:40pm traMADol hydrochloride 50 mg oral tablet (20 sources) Opioid Agonist Start: 05-26-20 End: 02-06-20 take 1 tablet by mouth every eight hours as needed for pain Tramadol 50 MG tablet Discontinued 50 mg PO EVERY 8 HOURS NEEDED as needed for Moderate Pain (4-5/10) 30 0 May 26, 2017 12:00am February 05, 2022 3:48pm verapamil hydrochloride 120 mg extended release oral tablet (20 sources) Calcium Channel Leon Start: 03-14-20 End: 02-21-20 take 1 tablet by mouth at bedtime Verapamil 120 mg tablet extended release Discontinued 120 mg PO AT BEDTIME June 21, 2023 1:00am April 06, 2024 11:57am BLOOD PRESSURE Comment on above: Take 1 tablet by gael th daily at bedtime. Problems Active Problems Problem Classification Problem Date Documented Da te Episodic/Chronic Abdominal pain (20 sources) Abdominal pain; Translations: [Unspecified abdominal pain] 06-13-2021 Episodic Acute and unspecified renal failure (20 sources) Injury of kidney; Translations: [Acute kidney failure, unspecified] 02-22-2022 Episodic Allergic reactions (2 sources) Inflammatory dermatosis; Translations: [Dermatitis, unspecified] 06-13-2023 Episodic Anxiety disorders (2 sources) Anxiety; Translations: [Anxiety disorder, unspecified] Onset: 5 04-01-2025 Chronic Asthma (20 sources) Asthma; Translations: [Unspecified asthma, uncomplicated] Onset: 5 02-22-2022 Chronic Cancer of cervix (20 sources) History of malignant neoplasm of cervix; Translations: [Personal history of malignant neoplasm of cervix uteri] Onset: 1 08-10-2021 Episodic Cardiac dysrhythmias (20 sources) Supraventricular tachycardia; Translations: [Supraventricular tachycardia] Onset: 2 Chronic Cardiac dysrhythmias (20 sources) Palpitations - rapid; Translations: [Palpitations] Episodic Chronic kidney disease (20 sources) Chronic kidney disease stage 3; Translations: [Stage 3 chronic kidney disease] Onset: 3 Resolved: 5 10-20-2022 Chronic Chronic kidney disease (1 source) Chronic kidney disease; Translations: [Chronic kidney disease, stage 3b] Onset: 5 Chronic obstructive pulmonary disease and bronchiectasis (20 sources) Acute exacerbation of chronic obstructive airways disease; Translations: [Chronic obstructive pulmonary disease with (acute) exacerbation] Onset: 5 06-23-2023 Chronic Chronic obstructive pulmonary disease and bronchiectasis (1 source) Chronic obstructive pulmonary disease and bronchiectasis; Translations: [Asthma with chronic obstructive pulmonary disease (COPD) (HCC)] Onset: 4 Diabetes mellitus with complications (20 sources) Type 2 diabetes mellitus; Translations: [Type 2 diabetes mellitus with unspecified diabetic retinopathy without macular edema] Onset: 5 06-27-2015 Chronic Diseases of white blood cells (2 sources) Leukocytosis; Translations: [Elevated white blood cell count, unspecified] Chronic Disorders of lipid metabolism (20 sources) Hyperlipidemia; Translations: [Hyperlipidemia, unspecified] Onset: 5 06-19-2015 Chronic E Codes: Adverse effects of medical drugs (14 sources) Adverse reaction to drug; Translations: [Adverse effect of unspecified drugs, medicaments and biological substances, initial encounter] 12-04-2022 Episodic Esophageal disorders (20 sources) Gastro-esophageal reflux disease with esophagitis; Translations: [Reflux esophagitis] 12-19-2020 Chronic Esophageal disorders (1 source) Esophageal disorders; Translations: [Gastroesophageal reflux disease with esophagitis without hemorrhage] Onset: 1 Essential hypertension (20 sources) Hypertensive disorder; Translations: [Essential (primary) hypertension] Onset: 5 Resolved: 8 02-26-2013 Chronic Fever of unknown origin (1 source) Fever; Translations: [Fever, unspecified] 06-21-2023 Episodic Fluid and electrolyte disorders (3 sources) Dehydration; Translations: [Dehydration] Episodic Fracture of neck of femur (hip) (11 sources) Closed fracture of hip; Translations: [Fracture of unspecified part of neck of left femur, initial encounter for closed fracture] 10-11-2023 Episodic Gastrointestinal hemorrhage (1 source) Black feces; Translations: [Melena] 06-30-2023 Episodic Genitourinary symptoms and ill-defined conditions (20 sources) Urge incontinence of urine; Translations: [Urge incontinence] Onset: 3 02-26-2013 Chronic Miscellaneous mental health disorders (1 source) Chronic insomnia; Translations: [Psychophysiologic insomnia] Chronic Nonspecific chest pain (2 sources) Chest wall pain; Translations: [Other chest pain] Episodic Nutritional deficiencies (3 sources) Vitamin D deficiency; Translations: [Vitamin D deficiency, unspecified] Onset: 5 Chronic Osteoarthritis (20 sources) Osteoarthritis; Translations: [Unspecified osteoarthritis, unspecified site] Onset: 5 Resolved: 6 11-25-2016 Chronic Osteoporosis (20 sources) Senile osteoporosis; Translations: [Age-related osteoporosis without current pathological fracture] Onset: 1 11-27-2020 Chronic Other aftercare (2 sources) 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 (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) use of insulin; Translations: [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, with long-term current use of insulin, unspecified laterality (HCC)] Onset: 3 Episodic Other connective tissue disease (19 sources) Spasm; Translations: [Other muscle spasm] Episodic Other connective tissue disease (20 sources) Rhabdomyolysis; Translations: [Rhabdomyolysis] Onset: 7 02-22-2022 Episodic Other connective tissue disease (1 source) Cramp; Translations: [Cramp and spasm] Episodic Other connective tissue disease (1 source) Bursitis of elbow; Translations: [Other bursitis of elbow, left elbow] Episodic Other connective tissue disease (1 source) Muscle pain; Translations: [Myalgia, unspecified site] Episodic Other connective tissue disease (4 sources) Rhabdomyolysis; Translations: [Rhabdomyolysis] 10-13-2023 Episodic Other connective tissue disease (1 source) Pain in left lower limb; Translations: [Pain in left leg] 11-22-2023 Episodic Other connective tissue disease (2 sources) Pain of toe of left foot; Translations: [Pain in left toe(s)] 08-23-2024 Episodic Other connective tissue disease (2 sources) Pain of toe of right foot; Translations: [Pain in right toe(s)] 08-23-2024 Episodic Other diseases of bladder and urethra (20 sources) Overactive bladder; Translations: [Overactive bladder] 02-22-2022 Chronic Other diseases of bladder and urethra (1 source) Overactive bladder; Translations: [OAB (overactive bladder)] Onset: 4 Chronic Other diseases of kidney and ureters (1 source) Renal impairment; Translations: [Disorder of kidney and ureter, unspecified] 03-28-2024 Episodic Other diseases of veins and lymphatics (1 source) Stasis dermatitis; Translations: [Venous insufficiency (chronic) (peripheral)] 05-14-2023 Episodic Other disorders of stomach and duodenum (13 sources) Gastroparesis; Translations: [Gastroparesis] Onset: 5 Episodic Other disorders of stomach and duodenum (20 sources) Gastroparesis syndrome; Translations: [Gastroparesis] 02-25-2022 Episodic Other endocrine disorders (7 sources) Hypoglycemia; Translations: [Hypoglycemia, unspecified] Chronic Other female genital disorders (1 source) Vaginal discomfort; Translations: [Unspecified condition associated with female genital organs and menstrual cycle] 07-04-2023 Episodic Other gastrointestinal disorders (20 sources) Irritable bowel syndrome; Translations: [Irritable bowel syndrome without diarrhea] Onset: 6 Resolved: 7 05-14-2009 Chronic Other gastrointestinal disorders (20 sources) Constipation; Translations: [Constipation, unspecified] 02-25-2022 Episodic Other gastrointestinal disorders (11 sources) Constipation, unspecified; Translations: [Constipation, unspecified] Episodic Other gastrointestinal disorders (1 source) Red stools; Translations: [Other fecal abnormalities] Episodic Other gastrointestinal disorders (1 source) Diarrhea; Translations: [Diarrhea, unspecified] 06-30-2023 Episodic Other hematologic conditions (1 source) ESR raised; Translations: [Elevated erythrocyte sedimentation rate] Episodic Other hereditary and degenerative nervous system conditions (3 sources) Essential tremor; Translations: [Essential tremor] 12-27-2023 Chronic Other hereditary and degenerative nervous system conditions (1 source) Essential tremor; Translations: [Essential tremor] Onset: Chronic Other inflammatory condition of skin (1 source) Lichen planus; Translations: [Lichen planus, unspecified] 08-16-2024 Episodic Other injuries and conditions due to external causes (1 source) H/O: hip fracture; Translations: [Personal history of (healed) traumatic fracture] 11-22-2023 Episodic Other lower respiratory disease (3 sources) Dyspnea; Translations: [Shortness of breath] 05-06-2023 Episodic Other lower respiratory disease (4 sources) Nodule of lung; Translations: [Solitary pulmonary nodule] 03-31-2023 Episodic Other lower respiratory disease (7 sources) Hypoxia; Translations: [Hypoxemia] 06-21-2023 Episodic Other lower respiratory disease (3 sources) Hypoxemia; Translations: [Hypoxemia] 11-17-2023 Episodic Other nervous system disorders (20 sources) Unresponsive ; Translations: [Other symptoms and signs involving cognitive functions and awareness] 02-22-2022 Episodic Other non-traumatic joint disorders (18 sources) Pain in elbow; Translations: [Pain in left elbow] Episodic Other nutritional; endocrine; and metabolic disorders (20 sources) Obesity; Translations: [Obesity, unspecified] Onset: 5 02-03-2022 Chronic Other nutritional; endocrine; and metabolic disorders (20 sources) Obesity, unspecified; Translations: [Obesity, unspecified] Chronic Other nutritional; endocrine; and metabolic disorders (1 source) Hypercalcemia; Translations: [Hypercalcemia] Chronic Other nutritional; endocrine; and metabolic disorders (1 source) Body mass index (BMI) 36.0-36.9, adult; Translations: [Class 2 obesity with body mass index (BMI) of 36.0 to 36.9 in adult, unspecified obesity type, unspecified whether serious comorbidity present] Onset: 5 Chronic Other nutritional; endocrine; and metabolic disorders (1 source) Morbid (severe) obesity due to excess calories; Translations: [Morbid (severe) obesity due to excess calories] Onset: 5 Chronic Other nutritional; endocrine; and metabolic disorders (1 source) Body mass index (BMI) 37.0-37.9, adult; Translations: [Body mass index [BMI] 37.0-37.9, adult] Onset: 5 Chronic Other nutritional; endocrine; and metabolic disorders (3 sources) Overweight; Translations: [Overweight] Episodic Other skin disorders (8 sources) Eruption; Translations: [Rash and other nonspecific skin eruption] 08-17-2023 Episodic Other skin disorders (2 sources) Ingrowing nail; Translations: [Ingrowing nail] 08-23-2024 Episodic Other upper respiratory disease (20 sources) Allergic rhinitis; Translations: [Allergic rhinitis, unspecified] Onset: 5 05-25-2016 Chronic Other upper respiratory disease (2 sources) Seasonal allergic rhinitis; Translations: [Other seasonal allergic rhinitis] 08-03-2024 Chronic Other upper respiratory disease (1 source) Other seasonal allergic rhinitis; Translations: [Seasonal allergic rhinitis, unspecified trigger] Onset: 6 Chronic Other upper respiratory disease (1 source) Nasal congestion; Translations: [Nasal congestion] Episodic Other upper respiratory infections (20 sources) Chronic sinusitis; Translations: [Chronic sinusitis, unspecified] Onset: 7 Resolved: 6 05-25-2016 Chronic Other upper respiratory infections (2 sources) Posterior rhinorrhea; Translations: [Postnasal drip] 04-03-2024 Episodic Pneumonia (except that caused by tuberculosis or sexually transmitted disease) (20 sources) Pneumonia due to methicillin susceptible Staphylococcus aureus; Translations: [Pneumonia due to Methicillin susceptible Staphylococcus aureus] 02-22-2022 Episodic Residual codes; unclassified (9 sources) Obstructive sleep apnea syndrome; Translations: [Obstructive sleep apnea (adult) (pediatric)] Onset: 5 Chronic Residual codes; unclassified (3 sources) Hypoxia; Translations: [Idiopathic sleep related nonobstructive alveolar hypoventilation] Chronic Residual codes; unclassified (20 sources) Sleep apnea; Translations: [Sleep apnea, unspecified] Onset: 5 Resolved: 4 08-10-2021 Chronic Residual codes; unclassified (1 source) Long sleeper syndrome; Translations: [Other sleep disorders] 05-28-2024 Chronic Residual codes; unclassified (1 source) Unrefreshed by sleep; Translations: [Other sleep disorders] 05-28-2024 Chronic Residual codes; unclassified (1 source) Sleep apnea, unspecified; Translations: [Sleep apnea, unspecified type] Onset: 5 Chronic Residual codes; unclassified (1 source) Obstructive sleep apnea (adult) (pediatric); Translations: [RICARDO (obstructive sleep apnea)] Onset: 4 Chronic Residual codes; unclassified (2 sources) Other sleep disorders; Translations: [Long sleeper] Onset: 4 Chronic Residual codes; unclassified (1 source) Localized edema; Translations: [Localized edema] 05-06-2023 Episodic Residual codes; unclassified (1 source) History of operation on musculoskeletal system; Translations: [Other specified postprocedural states] 11-22-2023 Episodic Residual codes; unclassified (1 source) Menopause present; Translations: [Asymptomatic menopausal state] 08-16-2024 Episodic Rheumatoid arthritis and related disease (20 sources) Inflammatory polyarthropathy; Translations: [Inflammatory polyarthropathy] Onset: 7 11-25-2016 Chronic Thyroid disorders (20 sources) Subclinical hypothyroidism; Translations: [Other specified hypothyroidism] Onset: 1 04-22-2021 Chronic Unclassified (1 source) OPENED IN ERROR 01-04-2024 Unclassified (1 source) Patient encounter status 09-26-2024 Unclassified (1 source) Class 2 obesity with body mass index (BMI) of 36.0 to 36.9 in adult, unspecified obesity type, unspecified whether serious comorbidity present; Translations: [Class 2 obesity with body mass index (BMI) of 36.0 to 36.9 in adult, unspecified obesity type, unspecified whether serious comorbidity present] Onset: 5 Unclassified (1 source) Lumbar pain; Translations: [Lumbar pain] Onset: 3 Urinary tract infections (15 sources) Acute cystitis; Translations: [Acute cystitis without hematuria] 06-15-2023 Episodic Past or Other Problems Problem Classification Problem Date Documented Da te Episodic/Chronic Biliary tract disease (20 sources) Cholelithiasis without obstruction; Translations: [Calculus of gallbladder without cholecystitis without obstruction] Onset: 04-08-2022 04-08-2022 Episodic Cancer of breast (20 sources) Malignant tumor of breast ; Translations: [Malignant neoplasm of unspecified site of unspecified female breast] Onset: 07-30-2008 Resolved: 05-25-2016 02-22-2022 Chronic Comment on above: LEFT MASTECTOMY KATTY ST CA/ CERVICAL CA/ SKIN CA Cancer of breast (20 sources) History of malignant neoplasm of breast; Translations: [Personal history of malignant neoplasm of breast] Onset: 05-25-2016 05-25-2016 Episodic Chronic obstructive pulmonary disease and bronchiectasis (2 sources) Bronchitis; Translations: [Bronchitis, not specified as acute or chronic] Onset: 08-03-2024 08-03-2024 Episodic Diabetes mellitus without complication (20 sources) Type 2 diabetes mellitus without complications; Translations: [Diabetes mellitus without mention of complication, type II or unspecified type, not stated as uncontrolled] Onset: 05-28-2005 Resolved: 06-27-2015 Chronic Diabetes mellitus without complication (20 sources) Insulin pump present; Translations: [Presence of insulin pump (external) (internal)] Onset: 12-15-2021 Resolved: 04-01-2025 Episodic Esophageal disorders (20 sources) Esophagitis; Translations: [Esophagitis, unspecified] Onset: 07-23-2008 Resolved: 07-30-2008 07-30-2008 Episodic Genitourinary symptoms and ill-defined conditions (20 sources) Increased frequency of urination; Translations: [Frequency of micturition] Onset: 01-02-2007 Resolved: 05-25-2016 Episodic Mycoses (5 sources) Candidiasis of skin; Translations: [Candidiasis of skin and nail] Onset: 08-03-2024 11-07-2023 Episodic Other and unspecified benign neoplasm (20 sources) Adenoma of left adrenal gland; Translations: [Benign neoplasm of left adrenal gland] Onset: 04-08-2022 04-08-2022 Episodic Other connective tissue disease (20 sources) Bilateral pes anserinus bursitis; Translations: [Other bursitis of knee, right knee] Onset: 06-05-2019 06-05-2019 Episodic Other connective tissue disease (1 source) Pain in left toe(s); Translations: [Pain in toe of left foot] Onset: 12-20-2024 Episodic Other connective tissue disease (1 source) Pain in right toe(s); Translations: [Pain in toe of right foot] Onset: 12-20-2024 Episodic Other diseases of bladder and urethra (20 sources) Disorder of bladder; Translations: [Other specified disorders of bladder] Onset: 06-20-2007 Resolved: 11-25-2016 11-25-2016 Chronic Other diseases of kidney and ureters (1 source) Disorder of kidney and ureter, unspecified; Translations: [Renal insufficiency] Onset: 04-03-2024 Episodic Other gastrointestinal disorders (20 sources) Patient encounter status; Translations: [Encounter for attention to gastrostomy] Onset: 06-13-2023 Resolved: 07-04-2023 06-13-2023 Chronic Other gastrointestinal disorders (20 sources) Occult blood in stools; Translations: [Other fecal abnormalities] Resolved: 11-22-2013 11-22-2013 Episodic Other lower respiratory disease (20 sources) Multiple nodules of lung; Translations: [Other nonspecific abnormal finding of lung field] Onset: 06-23-2022 Episodic Other lower respiratory disease (20 sources) Chronic cough; Translations: [Chronic cough] Onset: 07-29-2023 Episodic Other lower respiratory disease (2 sources) Other nonspecific abnormal finding of lung field; Translations: [Other nonspecific abnormal finding of lung field] Onset: 06-23-2022 07-29-2023 Episodic Other lower respiratory disease (1 source) Solitary pulmonary nodule; Translations: [Lung nodule] Onset: 10-12-2024 Episodic Other nervous system disorders (20 sources) Impairment of balance; Translations: [Other abnormalities of gait and mobility] Onset: 05-06-2023 04-11-2023 Episodic Other non-traumatic joint disorders (20 sources) Pain in right knee; Translations: [Other acute pain] Onset: 06-05-2019 Resolved: 12-15-2021 06-05-2019 Episodic Other nutritional; endocrine; and metabolic disorders (20 sources) Obese class I; Translations: [Obesity, unspecified] Onset: 04-20-2018 Resolved: 09-26-2024 04-20-2018 Chronic Other screening for suspected conditions (not mental disorders or infectious disease) (16 sources) Elevated C-reactive protein; Translations: [Elevated C-reactive protein (CRP)] Onset: 10-08-2024 Episodic Other skin disorders (1 source) Ingrowing nail; Translations: [Onychocryptosis] Onset: 12-20-2024 Episodic Residual codes; unclassified (20 sources) History of left mastectomy; Translations: [Acquired absence of left breast and nipple] Onset: 07-19-2016 07-19-2016 Episodic Residual codes; unclassified (2 sources) Other specified health status; Translations: [Other specified conditions influencing health status] Onset: 05-28-2024 05-28-2024 Episodic Residual codes; unclassified (1 source) Acquired absence of left breast and nipple; Translations: [H/O left mastectomy] Onset: 07-19-2016 Episodic Screening and history of mental health and substance abuse codes (7 sources) Ex-smoker; Translations: [Personal history of nicotine dependence] Onset: 10-12-2024 06-21-2023 Episodic Skin and subcutaneous tissue infections (20 sources) Cellulitis of upper limb; Translations: [Cellulitis of left upper limb] Onset: 08-03-2024 Episodic Spondylosis; intervertebral disc disorders; other back problems (20 sources) Low back pain; Translations: [Lumbar pain] Onset: 05-06-2023 04-11-2023 Episodic Varicose veins of lower extremity (20 sources) Venous varices; Translations: [Asymptomatic varicose veins of unspecified lower extremity] Onset: 11-17-2007 11-17-2007 Episodic Results Test Name Value Interpretation Reference Range Facility 25(OH)D3 SerPl-ncon 2024 25-hydroxyvitamin D3 [Mass/Vol] 64.1 ng/mL Normal 31.0-80.0 [facility] Comment on above: Order Comment: Speci men Type: BLOOD SPECIMENOrdering Facility: [facility] Address: [address] [place] [address] Result Comment: Clas sification of 25 OH Vitamin D status: Deficiency/Insufficiency: < or = 30 ng/ml. Sufficiency/Optimal Levels: 31-80 ng/mL Toxicity: > 100 ng/mL. Test performed by chemiluminescent immunoassay. Performed By: #### 1 [id number] ####[facility] LABCLIA [id number] [place] [address] [place] CBC W Auto Differential pane l (Bld)on 04-01-2025 Basophils (Bld) [#/Vol] 0.08 10*3/uL [facility] Basophils/100 WBC (Bld) 1.1 % [facility] Differential cell count method Nom (Bld) Auto [facility] Eosinophils (Bld) [#/Vol] 0.14 10*3/uL [facility] Eosinophils/100 WBC (Bld) 1.9 % [facility] Erythrocyte distribution width (RBC) [Ratio] 13.2 % 11.5 - 15.0 % [facility] Hematocrit (Bld) [Volume fraction] 40.6 % 36.0 - 46.0 % [facility] Hemoglobin (Bld) [Mass/Vol] 13.3 g/dL 11.5 - 15.5 g/dL [facility] Immature granulocytes (Bld) [#/Vol] 0.05 10*3/uL [facility] Immature granulocytes/100 WBC (Bld) 0.7 % [facility] Lymphocytes (Bld) [#/Vol] 1.18 10*3/uL [facility] Lymphocytes/100 WBC (Bld) 16.0 % [facility] MCH (RBC) [Entitic mass] 31.4 pg 26. 0 - 34.0 pg [facility] MCHC (RBC) [Mass/Vol] 32.8 g/dL 30.5 - 36.0 g/dL [facility] MCV (RBC) [Entitic vol] 96.0 fL 80.0 - 100.0 fL [facility] Monocytes (Bld) [#/Vol] 0.62 10*3/uL [facility] Monocytes/100 WBC (Bld) 8.4 % [facility] Neutrophils (Bld) [#/Vol] 5.30 10*3/uL [facility] Neutrophils/100 WBC (Bld) 71.9 % [facility] Nucleated RBC (Bld) [#/Vol] NINF [facility] Nucleated RBC/100 WBC (Bld) [Ratio] 0.0 % /100 WBC [facility] Platelet mean volume (Bld) [Entitic vol] 10.7 fL 9.0 - 12.7 fL [facility] Platelets (Bld) [#/Vol] 263 10*3/uL [facility] RBC (Bld) [#/Vol] 4.23 10*6/uL 3.90 - 5.2 0 m/uL [facility] WBC (Bld) [#/Vol] 7.37 10*3/uL [facility] Basophils (Bld) [#/Vol] 0.08 10*3/uL Normal <0.11 [facility] Comment on above: Order Comment: Speci men Type: BLOOD SPECIMENOrdering Facility: [facility] Address: [address] [place] [address] Performed By: #### [id number] ####[facility] LABIA [id number] [place] [address] [place] Basophils/100 WBC (Bld) 1.1 % Normal [facility] Comment on above: Order Comment: Speci men Type: BLOOD SPECIMENOrdering Facility: [facility] Address: [address] [place] [address] Performed By: #### 5 7021-8 ####[facility] LABIA [id number] [place] [address] [place] Differential cell count method Nom (Bld) Auto Normal [facility] Comment on above: Order Comment: Speci men Type: BLOOD SPECIMENOrdering Facility: [facility] Address: [address] [place] [address] Performed By: #### 5 7021-8 ####[facility] LABCLIA [id number] [address], [place] [address] [place] Eosinophils (Bld) [#/Vol] 0.14 10*3/uL Normal <0.46 [facility] Comment on above: Order Comment: Speci men Type: BLOOD SPECIMENOrdering Facility: [facility] Address: [address] [place] [address] Performed By: #### 5 7021-8 ####[facility] LABCLIA [id number] [address], [place] [address] [place] Eosinophils/100 WBC (Bld) 1.9 % Normal [facility] Comment on above: Order Comment: Speci men Type: BLOOD SPECIMENOrdering Facility: [facility] Address: [address] [place] [address] Performed By: #### 5 7021-8 ####[facility] LABCLIA [id number] [address], [place] [address] [place] Erythrocyte distribution width (RBC) [Ratio] 13.2 % Normal 11.5-15.0 [facility] Comment on above: Order Comment: Speci men Type: BLOOD SPECIMENOrdering Facility: [facility] Address: [address] [place] [address] Performed By: #### 5 7021-8 ####[facility] LABCLIA [id number] [place] [address] [place] Hematocrit (Bld) [Volume fraction] 40.6 % Normal 36.0-46.0 [facility] Comment on above: Order Comment: Speci men Type: BLOOD SPECIMENOrdering Facility: [facility] Address: [address] [place] [address] Performed By: #### 5 7021-8 ####[facility] LABCLIA [id number] [place] [address] [place] Hemoglobin (Bld) [Mass/Vol] 13.3 g/dL Normal 11.5-15.5 [facility] Comment on above: Order Comment: Speci men Type: BLOOD SPECIMENOrdering Facility: [facility] Address: [address] [place] [address] Performed By: #### 5 7021-8 ####[facility] LABCLIA [id number] [place] [address] [place] Immature granulocytes (Bld) [#/Vol] 0.05 10*3/uL Normal <0.10 [facility] Comment on above: Order Comment: Speci men Type: BLOOD SPECIMENOrdering Facility: [facility] Address: [address] [place] [address] Performed By: #### 5 7021-8 ####[facility] LABCLIA [id number] [place] [address] [place] Immature granulocytes/100 WBC (Bld) 0.7 % Normal [facility] Comment on above: Order Comment: Speci men Type: BLOOD SPECIMENOrdering Facility: [facility] Address: [address] [place] [address] Performed By: #### 5 7021-8 ####[facility] LABCLIA [id number] [place] [address] [place] Lymphocytes (Bld) [#/Vol] 1.18 10*3/uL Normal 1.00-4.00 [facility] Comment on above: Order Comment: Speci men Type: BLOOD SPECIMENOrdering Facility: [facility] Address: [address] [place] [address] Performed By: #### 5 7021-8 ####[facility] LABCLIA [id number] [place] [address] [place] Lymphocytes/100 WBC (Bld) 16.0 % Normal [facility] Comment on above: Order Comment: Speci men Type: BLOOD SPECIMENOrdering Facility: [facility] Address: [address] [place] [address] Performed By: #### 5 7021-8 ####[facility] LABIA [id number] [address] [place] MCH (RBC) [Entitic mass] 31.4 pg Normal 26.0-34.0 [facility] Comment on above: Order Comment: Speci men Type: BLOOD SPECIMENOrdering Facility: [facility] Address: [address] [place] [address] Performed By: #### 5 7021-8 ####[facility] [id number] [place] [address] [place] MCHC (RBC) [Mass/Vol] 32.8 g/dL Normal 30.5-36.0 [facility] Comment on above: Order Comment: Speci men Type: BLOOD SPECIMENOrdering Facility: [facility] Address: [address] [place] [address] Performed By: #### 5 7021-8 ####[facility] [id number] [place] [address] [place] MCV (RBC) [Entitic vol] 96.0 fL Normal 80.0-100.0 [facility] Comment on above: Order Comment: Speci men Type: BLOOD SPECIMENOrdering Facility: [facility] Address: [address] [place] [address] Performed By: #### 5 7021-8 ####[facility] [id number] [place] [address] [place] Monocytes (Bld) [#/Vol] 0.62 10*3/uL Normal <0.87 [facility] Comment on above: Order Comment: Speci men Type: BLOOD SPECIMENOrdering Facility: [facility] Address: [address] [place] [address] Performed By: #### 5 7021-8 ####[facility] LABR[facility] [id number] [address] [place] [address] [place] Monocytes/100 WBC (Bld) 8.4 % Normal [facility] Comment on above: Order Comment: Speci men Type: BLOOD SPECIMENOrdering Facility: [facility] Address: [address] [place] [address] Performed By: #### 5 7021-8 ####[facility] LABCLIA [id number] [place] [address] [place] Neutrophils (Bld) [#/Vol] 5.30 10*3/uL Normal 1.45-7.50 [facility] Comment on above: Order Comment: Speci men Type: BLOOD SPECIMENOrdering Facility: [facility] Address: [address] [place] [address] Performed By: #### 5 7021-8 ####[facility] LABCLIA [id number] [place] [address] [place] Neutrophils/100 WBC (Bld) 71.9 % Normal [facility] Comment on above: Order Comment: Speci men Type: BLOOD SPECIMENOrdering Facility: [facility] Address: [address] [place] [address] Performed By: #### 5 7021-8 ####[facility] LABCLIA [id number] [place] [address] [place] Nucleated RBC (Bld) [#/Vol] 10*3/uL Normal <0.01 [facility] Comment on above: Order Comment: Speci men Type: BLOOD SPECIMENOrdering Facility: [facility] Address: [address] [place] [address] Performed By: #### 5 7021-8 ####[facility] LABCLIA [id number] [place] [id number] [place] Nucleated RBC/100 WBC (Bld) [Ratio] 0.0 /100 WBC Normal [facility] Comment on above: Order Comment: Speci men Type: BLOOD SPECIMENOrdering Facility: [facility] Address: [address] [place] [address] Performed By: #### 5 7021-8 ####[facility] LABCLIA [id number] [place] [address] [place] Platelet mean volume (Bld) [Entitic vol] 10.7 fL Normal 9.0-12.7 [facility] Comment on above: Order Comment: Speci men Type: BLOOD SPECIMENOrdering Facility: [facility] Address: [address] [place] [address] Performed By: #### 5 7021-8 ####[facility] LABCLIA [id number] [place] [address] [place] Platelets (Bld) [#/Vol] 263 10*3/uL Normal 150-400 [facility] Comment on above: Order Comment: Speci men Type: BLOOD SPECIMENOrdering Facility: [facility] Address: [address] [place] [address] Performed By: #### 5 7021-8 ####[facility] LABIA [id number] [place] [address] [place] RBC (Bld) [#/Vol] 4.23 10*6/uL Normal 3.90-5.20 [facility] Comment on above: Order Comment: Speci men Type: BLOOD SPECIMENOrdering Facility: [facility] Address: [address] [place] [address] Performed By: #### 5 7021-8 ####[facility] LABCLIA [id number] [place] [id number] [place] WBC (Bld) [#/Vol] 7.37 10*3/uL Normal 3.70-11.00 [facility] Comment on above: Order Comment: Speci men Type: BLOOD SPECIMENOrdering Facility: [facility] Address: [address] [place] [address] Performed By: #### 5 7021-8 ####[facility] JAVIER [id number] [place] [id number] [facility] CNOVon 04-01-2025 CNOV Office Visit (FAMPWS ) MANISHA KEITH ([id number]) 1950 F Date Time Provider Department 04/01/25 2:20 PM [facility] visit today, we recorded the following information about you: Pulse Blood pressure Weight Height 95/minute 110/60 89.7 kg 1.57 m Ilir Hernández MD 04/01/2025 4:21 PM Signed Manisha Keith is a 74 year old female here for a Medicare wellness visit. Medicare Health Risk Assessment General Health Fair Exercise: Minutes/Day no Exercise: Days/Week no Alcohol: Daily Use no Alcohol: Drinks/Day no Alcohol: 6 or more drinks no Feel off balance Worse since hip fracture. Concerns: Teeth/Dentures Implants and dentures-not doing well Concerns: Sexual function none Troubled by feelings none Frequency: Eating healthy diet Eating well ADLs requiring help yes Safety precautions in home/vehicle yes Smoke, vape, chews tobacco no Difficulty hearing no Difficulty seeing Has retinopathy. Current Providers Specialists: I have reviewed specialist-related care of the patient in the medical record. Current care team: Patient Care Team: Ilir Hernández MD as PCP - General (Family Medicine) Bernadette Valerio jp as Pharmacist (Pharmacy) Ysabel Edwards APRN.CNP as Maintenance Planning Clerk (Family Medicine) Claire Lancaster APRN.CNP as Maintenance Planning Clerk (Family Medicine) [facility]-opt. Will be seeing retinal specialist. Dr Zarate-optho roxy [facility]-cardiology Dr Johnson-Rheumatology. Dr. Hawk, podiatry. ene Fonseca, sleep med. Medical/Family history review Reviewed and updated problem list, medical/surgical/famil y/social history, medications, and allergies. Opioid use review Opioid Medications (last 90 days) No data to display Anxiety/Depression screening Being treated. Recommendation: no further intervention at this time Cognitive screening Mini Cog Score: 5 Cognitive screening reviewed and No further action needed (score 3-5). Functional Observation Was the patient's Timed Up AND Go test unsteady or >= 12 seconds? No Advance Care Planning Patient did not wish or was not able to name a surrogate decision maker or provide an advance care plan Measurements BP 110/60 Pulse 95 Ht 157 cm (5' 1.81) Wt 89.7 kg (197 lb 12.8 oz) SpO2 95% BMI 36.40 kg/m? Vision Screening: Follows with optometry/ophthalmolog y ADDITIONAL INFO: Annual Wellness Exam: - General health described as fair. - Denies alcohol, tobacco, or marijuana use. - No regular exercise. - Diet described as healthy, but reports overeating. - No issues with hearing. - Uses seatbelts, has adequate lighting and handrails at home. - No medical living will. - No recent Pap test this year; history of cervical and breast cancer. - Last colonoscopy in 2020; had both endoscopy and colonoscopy on the same day. - Denies chest pain, edema, or palpitations. - No current neck pain or abdominal pain. - Denies lumps or bumps in the neck. - No known issues with thyroid function. - No known issues with kidney function; most recent GFR was 70. - Blood counts reported as normal. - Most recent lipid panel done in July. - Taking Lipitor, Zyrtec, vitamin D, Lexapro, Flonase, hydrochlorothiazide, losartan, metoprolol, and methotrexate. Vision Problems: - Recent diagnosis of retinopathy with a bleeding vessel. - Scheduled for laser surgery next week and again the following month. - Seen by Dr. Chu and Dr. Rocha at the [facility]. - Referred to a specialist, Dr. Zarate, for further treatment. Balance Issues: - Reports balance issues related to low blood sugar and a previous hip fracture. - Uses a cane occasionally. - No recent falls. Dental Issues: - Has a dental implant in the lower jaw and a denture in the upper jaw. - Reports poor fit of the dentures and issues with the implant coming out. Sexual Functioning: - Describes sexual functioning as non-existent. - Reports no interest in sexual activity. Depression: - Taking escitalopram; reports it is helping with mood. - Denies current feelings of depression or anxiety. - ; reports no significant emotional issues related to this. Sleep Apnea: - Previously used CPAP but discontinued due to discomfort. - Reports excessive sleepiness, stating she could sleep 20 hours a day. Osteoporosis: - Under the care of Dr. Tom. - Taking Reclast injections once a year. - Taking vitamin D2. Diabetes Mellitus: - Most recent A1c was 8.1. - Using a Mitzi 3 CGM. - Discontinued use of insulin pump. Asthma: - Reports occasional breathing difficulties related to asthma. Rheumatoid Arthritis: - Under the care of Dr. Johnson. - Taking methotrexate. Gastroparesis: - Previously seen by Dr. Olivas within the last y (more content not included)... Normal [facility] Comprehensive metabolic 2000 panelon 04-01-2025 Albumin [Mass/Vol] 3.9 g/dL Normal 3.9-4.9 [facility] Comment on above: Order Comment: Speci men Type: BLOOD SPECIMENOrdering Facility: [facility] Address: [address] [place] [address] Performed By: #### 3 016-3, ####[facility] LABCLIA [id number] [place] [address] [place] ALP [Catalytic activity/Vol] 52 U/L Normal 34-123 [facility] Comment on above: Order Comment: Speci men Type: BLOOD SPECIMENOrdering Facility: [facility] Address: [address] [place] [address] Performed By: #### 3 016-3, ####[facility] LABCLIA [id number] [place] [address] [place] ALT [Catalytic activity/Vol] 14 U/L Normal 7-38 [facility] Comment on above: Order Comment: Speci men Type: BLOOD SPECIMENOrdering Facility: [facility] Address: [address] [place] [address] Performed By: #### 3 016-3, ####[facility] LABCLIA [id number] [place] [id number] [place] Anion gap [Moles/Vol] 16 mmol/L High 8-15 [facility] Comment on above: Order Comment: Speci men Type: BLOOD SPECIMENOrdering Facility: [facility] Address: [address] [place] [address] Performed By: #### 3 -3, ####[facility] LABCLIA [id number] [place] [address] [place] AST [Catalytic activity/Vol] 20 U/L Normal 13-35 [facility] Comment on above: Order Comment: Speci men Type: BLOOD SPECIMENOrdering Facility: [facility] Address: [address] [place] [address] Performed By: #### 3 3, ####[facility] LABCLIA [id number] [place] [id number] [place] Bilirubin [Mass/Vol] 0.2 mg/dL Normal 0.2-1.3 [facility] Comment on above: Order Comment: Speci men Type: BLOOD SPECIMENOrdering Facility: [facility] Address: [address] [place] [address] Performed By: #### 3 016-3, ####[facility] LABCLIA [id number] [place] [id number] [place] Calcium [Mass/Vol] 9.6 mg/dL Normal 8.5-10.2 [facility] Comment on above: Order Comment: Speci men Type: BLOOD SPECIMENOrdering Facility: [facility] Address: [address] [place], [place] [address] Performed By: #### 3 016-3, 16409-6 ####[facility] LABCLIA [id number] [place] [address] [place] Chloride [Moles/Vol] 100 mmol/L Normal 98-107 [facility] Comment on above: Order Comment: Speci men Type: BLOOD SPECIMENOrdering Facility: [facility] Address: [address] [place] [address] Performed By: #### 3 016-3, 36224-2 ####[facility] LABIA [id number] [place] [address] [place] CO2 [Moles/Vol] 25 mmol/L Normal 22-30 [facility] Comment on above: Order Comment: Speci men Type: BLOOD SPECIMENOrdering Facility: [facility] Address: [address] [place] [address] Performed By: #### 3 016-3, 89880-3 ####[facility] [id number] [address] STATES OF [facility] Creatinine [Mass/Vol] 0.81 mg/dL Normal 0.58-0.96 [facility] Comment on above: Order Comment: Speci men Type: BLOOD SPECIMENOrdering Facility: [facility] Address: [address] [place] [address] Performed By: #### 3 016-3, 42054-2 ####[facility] [id number] [place] [address] [place] eGFRcr SerPlBld CKD-EPI 2020 77 mL/min/1.73m??? Normal >=60 [facility] Comment on above: Order Comment: Speci men Type: BLOOD SPECIMENOrdering Facility: [facility] Address: [address] [place] [address] Result Comment: Suzanne mated Glomerular Filtration Rate (eGFR) is calculated using the 2020 CKD-EPI creatinine equation. This equation utilizes serum creatinine, sex, and age as parameters. The creatinine assay has traceable calibration to isotope dilution-mass spectrometry. Refer to KDIGO guidelines for clinical interpretation. In patients with unstable renal function, e.g. those with acute kidney injury, the eGFR may not accurately reflect actual GFR. Performed By: #### 3 016-3, 75428-1 ####[facility] LABIA [id number] [place] [address] [place] Glucose [Mass/Vol] 203 mg/dL High 74-99 [facility] Comment on above: Order Comment: Miguel julian Type: BLOOD SPECIMENOrdering Facility: [facility] Address: [address] [place] [address] Result Comment: The [place] Diabetes Association (ADA) provides guidance for cutoff values for fasting glucose and random glucose. The ADA defines fasting as no caloric intake for at least 8 hours. Fasting plasma glucose results between 100 to 125 [...] Standards of Medical Care in Diabetes 2016, [place] Diabetes Association. Diabetes Care. 2016.39(Suppl 1). Performed By: #### 3 016-3, 32886-4 ####[facility] LABCLIA [id number] [place] [id number] [place] Potassium [Moles/Vol] 4.5 mmol/L Normal 3.7-5.1 [facility] Comment on above: Order Comment: Miguel julian Type: BLOOD SPECIMENOrdering Facility: [facility] Address: [address] [place] [address] Performed By: #### 3 016-3, 60014-7 ####[facility] LABIA [id number] [place] [id number] [place] Protein [Mass/Vol] 7.5 g/dL Normal 6.3-8.0 [facility] Comment on above: Order Comment: Miguel julian Type: BLOOD SPECIMENOrdering Facility: [facility] Address: [address] [place], [place] [address] Performed By: #### 3 016-3, 58023-1 ####[facility] LABCLIA [id number] [place] [id number] [place] Sodium [Moles/Vol] 141 mmol/L Normal 136-144 [facility] Comment on above: Order Comment: Speci men Type: BLOOD SPECIMENOrdering Facility: [facility] Address: [address] [place] [address] Performed By: #### 3 016-3, 45625-7 ####[facility] LABCLIA [id number] [place] [id number] [place] Urea nitrogen [Mass/Vol] 14 mg/dL Normal 7-21 [facility] Comment on above: Order Comment: Speci men Type: BLOOD SPECIMENOrdering Facility: [facility] Address: [address] [place] [address] Performed By: #### 3 016-3, 27770-5 ####[facility] LABIA [id number] [place] [id number] [place] TSH SerPl-aCncon 04-01-2025 TSH Qn 3.550 m[IU]/L Normal 0.270-4.200 [facility] Comment on above: Order Comment: Speci men Type: BLOOD SPECIMENOrdering Facility: [facility] Address: [address] [place] [address] Performed By: #### 3 016-3, 26551-5 ####[facility] LABIA [id number] [place] [id number] [place] Endocrinology Visit Reporton 03-19-2025 Endocrinology Visit Report [facility] [address] [place] [address] OFFICE VISIT Date of Service: 03/19/25 MR#: [id number] Acct: [id number] Name: MANISHA KEITH Rep #: [id number] : 1950 Provider: Usman Hartman Age/Sex: 74/F Location: [facility] Status: Signed Intake Vital Signs 01/21/25 13:56 03/19/25 13:53 Height 5 ft 2 in 5 ft 2 in Weight: 194 lb 8 oz 196 lb BMI 35.5 35.8 BP 151/83 H 150/77 H Blood Pressure Location Rt brachial Rt brachial Position Sitting Sitting Pulse 91 102 H Pulse Source Monitor Monitor Pulse Oximetry (%) 93 92 Oxygen Delivery Method room air room air Intake Visit Reasons: 2 M FU Chief Complaint: diabetes Is patient in pain?: No Allergies JESENIA Inhibitors Allergy (Intermediate, Verified 03/19/25 13:54) Cough adhesive tape Allergy (Intermediate, Verified 03/19/25 13:54) blisters dulaglutide (From Trulicity) Allergy (Intermediate, Verified 03/19/25 13:54) Gastroparesis Dressing: Non-Medicated (elastic) Allergy (Verified 03/19/25 13:54) Rash NSAIDS (Non-Steroidal Anti-Inflamma Allergy (Verified 03/19/25 13:54) Other Latex, Natural Rubber Adverse Reaction (Mild, Verified 03/19/25 13:54) RASH Medications ???Medication ???Instructions ???Recorded ???Confirmed ???Type fluticasone propionate 50 1 spray intranasal DAILY PRN NASAL 01/30/14 03/19/25 History mcg/actuation nasal CONGESTION spray,suspension methotrexate sodium 2.5 mg tablet 20 mg PO TEJADA BREAST CANCER 7 03/19/25 History escitalopram oxalate 10 mg tablet 10 mg PO DAILY PRN DEPRESSION 03/19/25 History (Lexapro) folic acid 1 mg tablet 2 mg PO DAILY SUPPLEMENT 06/05/21 03/19/25 History hydrochlorothiazide 12.5 mg capsule 12.5 mg PO DAILY BLOOD PRESSURE 06/05/21 03/19/25 History losartan 100 mg tablet 100 mg PO DAILY BLOOD PRESSURE 03/19/25 History aspirin 81 mg tablet,delayed 81 mg PO DAILY HEART HEALTH 03/19/25 History release (Adult Low Dose Aspirin) gabapentin 300 mg capsule 300 mg PO QHS NEUROPATHY 02/05/22 03/19/25 History oxybutynin chloride 10 mg 20 mg PO DAILY OVERACTIVE BLADDER 02/05/22 03/19/25 History tablet,extended release 24 hr metoprolol succinate 100 mg 100 mg PO DAILY BLOOD PRESSURE 03/19/25 History tablet,extended release 24 hr pen needle, diabetic 32 gauge x #100 ea 11/26/22 03/19/25 Rx 32 (BD Ultra-Fine Tish Pen Needle) atorvastatin 20 mg tablet 20 mg PO DAILY CHOLESTEROL 3 03/19/25 History metaxalone 800 mg tablet 800 mg PO TID PRN MUSCLE CRAMPS 03/19/25 History insulin regular hum U-500 conc 500 See Rx Instructions subcut TIDCM 12/28/23 03/19/25 History unit/mL(3 mL) subcut pen (Humulin diabetes R U-500 (Conc) Insulin Kwikpen) zoledronic acid 5 mg/100 mL in See Rx Instructions .Route ONCE 03/19/25 Rx mannitol 5 %-water intravenous #100 mL piggybck blood sugar diagnostic (OneTouch #150 ea 11/14/24 03/19/25 Rx Verio test strips) blood-glucose,repairer cylinder heads ,cont #1 ea 11/14/24 03/19/25 Rx (FreeStyle Mitzi 3 [place]) albuterol sulfate 90 mcg/actuation 2 puff inhalation Q4 PRN wheezin g 01/21/25 03/19/25 History aerosol inhaler ammonium lactate 12 % lotion topical PRN 01/21/25 03/19/25 Hist ory cholecalciferol (vitamin D3) 1,250 1,250 mcg PO QWEEK #12 caps 05/0903/19/25 Rx mcg (50,000 unit) capsule pantoprazole 40 mg tablet,delayed 40 mg PO QDAY 01/21/25 03/19/25 H istory release Have you fallen in the past year?: No PFSH Medical History Depression Ambulates with cane High cholesterol CPAP (continuous positive airway pressure) dependence Closed left hip fracture Osteoporosis Former smoker Sleep apnea Asthma COPD (chronic obstructive pulmonary disease) Essential hypertension History of gastrostomy tube placement Wears glasses Wears dentures History of Clostridium difficile infection Cancer Anxiety Easy bruising Injury of head and neck Restless legs Loss of consciousness Dietary restriction Shortness of breath on exertion Chronic cough History of stress test History of edema Leg cramps History of Holter monitoring Cardiology follow-up encounter History of vaginal delivery Urinary incontinence Internal hemorrhoids History of cervical cancer Diverticulosis Obesity Vision problems Pancreatitis Osteoarthritis Neuropathy IBS (irritable bowel syndrome) Recurrent infections Hives Calcium deficiency Gastrointestinal problem Gall stone Chronic bronchitis Carpal tunnel syndrome Cataract Breast cancer Breast lump UTI (urinary tract infection) Back problem Arthritis Seasonal allergies (more content not included)... Normal [facility] Absolute lymphocyte countOrd ered By: Rachel Johnson on 03-04-2025 Lymphocytes Auto (Unsp spec) [#/Vol] 2.24 10*3/uL 0.83-4.51 [facility] Absolute neutrophil countOrd ered By: [facility] Alex on 03-04-2025 Neutrophils (Bld) [#/Vol] 4.4 10*3/uL 2.0-7.7 [facility] Anion gap in Serum or Plasma Ordered By: Rachel Johnson on 03-04-2025 Anion gap [Moles/Vol] 11 mmol/L 5-15 [facility] Automated lymphocyte count a s percentage of total leukocytesOrdered By: Rachel Johnson on 03-04-2025 Lymphocytes/100 WBC Auto (Unsp spec) 30.5 % 19-41 [facility] BUN/creatinine ratioOrdered By: [facility] Alex on 03-04-2025 Urea nitrogen/Creatinine [Mass ratio] 16.2 mg/mg 10-20 [facility] Basophil percentageOrdered B y: Rachel Johnson on 03-04-2025 Basophils/100 WBC (Bld) 0.5 % 0-1 [facility] Bilirubin, totalOrdered By: Rachelricardo Johnson on 03-04-2025 Bilirubin [Mass/Vol] 0.26 mg/dL 0.00-1.30 [facility] CBC W/Diff, Automatedon 02-13 Absolute Lymph 2.24 X10 3/uL Normal 0.83-4.51 [facility] Comment on above: Performed By: #### L 500.4050, L100.0100 #### [facility] [address] [place], [address] Absolute Neut 4.4 X10 3/uL Normal 2.0-7.7 [facility] Comment on above: Performed By: #### L 500.4050, L100.0100 #### [facility] [address] [place], [address] Basophils/100 WBC (Bld) 0.5 % Normal 0-1 [facility] Comment on above: Performed By: #### L 500.4050, L100.0100 #### [facility] [address] [place], [address] Eosinophils/100 WBC (Bld) 2.6 % Normal 0-5 [facility] Comment on above: Performed By: #### L 500.4050, L100.0100 #### [facility] [address] [place], [address] Erythrocyte distribution width (RBC) [Ratio] 12.7 % Normal 11.6-14.6 [facility] Comment on above: Performed By: #### L 500.4050, L100.0100 #### [facility] [address] [place], [address] Hematocrit (Bld) [Volume fraction] 37.4 % Normal 37-47 [facility] Comment on above: Performed By: #### L 500.4050, L100.0100 #### [facility] [address] [place], [address] Hemoglobin (Bld) [Mass/Vol] 12.5 g/dL Normal 12.0-15.0 [facility] Comment on above: Performed By: #### L 500.4050, L100.0100 #### [facility] [address] [place], [address] IG% 0.500 Normal 0.0-0.9 [facility] Comment on above: Result Comment: IG% - Immature Granulocytes (promyelocytes, myelocytes and metamyelocytes) > 1% indicates that a LEFT SHIFT is Present. Performed By: #### L 500.4050, L100.0100 #### [facility] [address] [place], [address] Lymphocytes/100 WBC (Bld) 30.5 % Normal 19-41 [facility] Comment on above: Performed By: #### L 500.4050, L100.0100 #### [facility] [address] [place], [address] MCH (RBC) [Entitic mass] 31.4 pg Normal 27.0-32.0 [facility] Comment on above: Performed By: #### L 500.4050, L100.0100 #### [facility] [address] [place], [address] MCHC (RBC) [Mass/Vol] 33.4 g/dL Normal 32-36 [facility] Comment on above: Performed By: #### L 500.4050, L100.0100 #### [facility] [address] [place], [address] MCV (RBC) [Entitic vol] 94.0 fL Normal 81-99 [facility] Comment on above: Performed By: #### L 500.4050, L100.0100 #### [facility] [address] [place], [address] Monocytes/100 WBC (Bld) 5.7 % Normal 0-10 [facility] Comment on above: Performed By: #### L 500.4050, L100.0100 #### [facility] [address] [place], [address] Neutrophils/100 WBC (Bld) 60.2 % Normal 47-70 [facility] Comment on above: Performed By: #### L 500.4050, L100.0100 #### [facility] [address] [place], [address] Nucleated RBC (Bld) [#/Vol] 0 10*3/uL Normal 0-5 [facility] Comment on above: Performed By: #### L 500.4050, L100.0100 #### [facility] [address] [place], [address] Platelet mean volume (Bld) [Entitic vol] 9.8 fL Normal 6.2-12.0 [facility] Comment on above: Performed By: #### L 500.4050, L100.0100 #### [facility] [address] [place], [address] Platelets (Bld) [#/Vol] 242 10*3/uL Normal 150-450 [facility] Comment on above: Performed By: #### L 500.4050, L100.0100 #### [facility] [address] [place], [address] RBC (Bld) [#/Vol] 3.98 10*6/uL Low 4.2-5.4 [facility] Comment on above: Performed By: #### L 500.4050, L100.0100 #### [facility] [address] [place], [address] RDW SD 43.5 fl Normal 35.1-43.9 [facility] Comment on above: Performed By: #### L 500.4050, L100.0100 #### [facility] [address] [place], [address] WBC (Bld) [#/Vol] 7.4 10*3/uL Normal 4.4-11.0 [facility] Comment on above: Performed By: #### L 500.4050, L100.0100 #### [facility] [address] [place], [address] Carbon dioxide, total [Moles /volume] in Central venous bloodOrdered By: Rachel Johnson on 03-04-2025 CO2 [Moles/Vol] 26.8 mmol/L 21.0-32.0 [facility] Chloride assayOrdered By: Home Johnson on 03-04-2025 Chloride [Moles/Vol] 101 mmol/L 98-108 [facility] Comprehensive Metabolic Prof ilon 03-04-2025 Albumin [Mass/Vol] 3.7 g/dL Normal 3.4-4.8 [facility] Comment on above: Performed By: #### L 500.4050, L100.0100 #### [facility] [address] [place], [address] Albumin/Globulin [Mass ratio] 1.1 {ratio} Normal 0.9-2.4 [facility] Comment on above: Performed By: #### L 500.4050, L100.0100 #### [facility] [address] [place], [address] ALK PHOS 57 U/L Normal 35-104 [facility] Comment on above: Performed By: #### L 500.4050, L100.0100 #### [facility] [address] [place], [address] ALT [Catalytic activity/Vol] 11 U/L Normal <=34 [facility] Comment on above: Performed By: #### L 500.4050, L100.0100 #### [facility] [address] [place], [address] AST [Catalytic activity/Vol] 18 U/L Normal <=31 [facility] Comment on above: Performed By: #### L 500.4050, L100.0100 #### [facility] [address] [place], [address] Bilirubin [Mass/Vol] 0.26 mg/dL Normal 0.00-1.30 [facility] Comment on above: Performed By: #### L 500.4050, L100.0100 #### [facility] [address] [place], [address] BUN/CRE 16.2 RATIO Normal 10-20 [facility] Comment on above: Performed By: #### L 500.4050, L100.0100 #### [facility] [address] [place], [address] Calcium [Mass/Vol] 9.2 mg/dL Normal 7.6-11.0 [facility] Comment on above: Performed By: #### L 500.4050, L100.0100 #### [facility] [address] [place], [address] Chloride [Moles/Vol] 101 mmol/L Normal 98-108 [facility] Comment on above: Performed By: #### L 500.4050, L100.0100 #### [facility] [address] [place], [address] CO2 [Moles/Vol] 26.8 mmol/L Normal 21.0-32.0 [facility] Comment on above: Performed By: #### L 500.4050, L100.0100 #### [facility] [address] [place], [address] Creatinine [Mass/Vol] 0.93 mg/dL Normal 0.70-1.20 [facility] Comment on above: Performed By: #### L 500.4050, L100.0100 #### [facility] [address] [place], [address] GAP 11 Normal 5-15 [facility] Comment on above: Performed By: #### L 500.4050, L100.0100 #### [facility] [address] [place], [address] GFR/1.73 sq M.predicted among non-blacks MDRD (S/P/Bld) [Vol rate/Area] 66 mL/min/{1.73_m2} Normal >60 [facility] Comment on above: Result Comment: mL/m in/1.73m2 CKD-EPI Creatinine Equation (2020) Performed By: #### L 500.4050, L100.0100 #### [facility] [address] [place], [address] Globulin (S) [Mass/Vol] 3.4 g/dL Normal 2.2-4.2 [facility] Comment on above: Performed By: #### L 500.4050, L100.0100 #### [facility] [address] [place], [address] Glucose [Mass/Vol] 321 mg/dL High 70-99 [facility] Comment on above: Performed By: #### L 500.4050, L100.0100 #### [facility] [address] [place], [address] Potassium [Moles/Vol] 3.9 mmol/L Normal 3.3-5.1 [facility] Comment on above: Performed By: #### L 500.4050, L100.0100 #### [facility] [address] [place], [address] Sodium [Moles/Vol] 139 mmol/L Normal 133-145 [facility] Comment on above: Performed By: #### L 500.4050, L100.0100 #### [facility] [address] [place], [address] T PROT 7.1 g/dL Normal 5.9-8.4 [facility] Comment on above: Performed By: #### L 500.4050, L100.0100 #### [facility] [address] [place], [address] Urea nitrogen [Mass/Vol] 15 mg/dL Normal 4-19 [facility] Comment on above: Performed By: #### L 500.4050, L100.0100 #### [facility] [address] [place], [address] Eosinophil percentageOrdered By: Rachel Johnson on 03-04-2025 Eosinophils/100 WBC (Bld) 2.6 % 0-5 [facility] Erythrocyte distribution wid th ratioOrdered By: Rachel Johnson on 03-04-2025 Erythrocyte distribution width (RBC) [Ratio] 12.7 % 11.6-14.6 [facility] Erythrocyte distribution wid th standard deviationOrdered By: Rachel Johnson on 03-04-2025 Erythrocyte distribution width (RBC) [Ratio] 43.5 fl 35.1-43.9 [facility] Glomerular filtration rate ( GFR) estimation/1.73 sq m using serum, plasma, or whole bOrdered By: Rachel Johnson on 03-04-2025 GFR/1.73 sq M.predicted among non-blacks MDRD (S/P/Bld) [Vol rate/Area] 66 mL/min/{1.73_m2} >60 [facility] Comment on above: mL/min/1.73m2 CKD-EP I Creatinine Equation (2020) Hematocrit Auto (Bld) [Volum e fraction]Ordered By: Rachel Johnson on 03-04-2025 Hematocrit (Bld) [Volume fraction] 37.4 % 37-47 [facility] Hemoglobin measurementOrdere d By: Rachel Johnson on 03-04-2025 Hemoglobin (Bld) [Mass/Vol] 12.5 g/dL 12.0-15.0 [facility] Immature granulocytes/100 WB C Auto (Bld)Ordered By: Rachel Johnson on 03-04-2025 Immature granulocytes/100 WBC (Bld) 0.500 % 0.0-0.9 [facility] Comment on above: IG% - Immature Granu locytes (promyelocytes, myelocytes and metamyelocytes) > 1% indicates that a LEFT SHIFT is Present. Laboratory - Chemistry and C hemistry - challengeOrdered By: Rachel Johnson on 03-04-2025 AST [Catalytic activity/Vol] 18 U/L <32 [facility] MCV (mean corpuscular volume ) determinationOrdered By: Rachel Johnson on 03-04-2025 MCV (RBC) [Entitic vol] 94.0 fL 81-99 [facility] Mean corpuscular hemoglobin (MCH) determinationOrdered By: Rachel Johnson on 03-04-2025 MCH (RBC) [Entitic mass] 31.4 pg 27.0-32.0 [facility] Mean corpuscular hemoglobin concentration (MCHC) determinationOrdered By: Rachel Johnson on 03-04-2025 MCHC (RBC) [Mass/Vol] 33.4 g/dL 32-36 [facility] Mean platelet volume determi nationOrdered By: Rachel Johnson on 03-04-2025 Platelet mean volume (Bld) [Entitic vol] 9.8 fL 6.2-12.0 [facility] Monocyte percentageOrdered B y: Rachel Johnson on 03-04-2025 Monocytes/100 WBC (Bld) 5.7 % 0-10 [facility] Neutrophil percentageOrdered By: Rachel Johnson on 03-04-2025 Neutrophils/100 WBC (Bld) 60.2 % 47-70 [facility] Nucleated red blood cell per centageOrdered By: Rachel Johnson on 03-04-2025 Nucleated RBC/100 WBC (Bld) [Ratio] 0 % 0-5 [facility] Platelet countOrdered By: Home Johnson on 03-04-2025 Platelets (Bld) [#/Vol] 242 10*3/uL 150-450 [facility] Potassium measurement (mass/ volume)Ordered By: Rachel Johnson on 03-04-2025 Potassium (Unsp spec) [Mass/Vol] 3.9 mmol/L 3.3-5.1 [facility] RBC Auto (Bld) [#/Vol]Ordere d By: Rachel Johnson on 03-04-2025 RBC (Bld) [#/Vol] 3.98 10*6/uL Low 4.2-5.4 [facility] Serum creatinine measurement (mass/volume)Ordered By: Rachel Johnson on 03-04-2025 Creatinine [Mass/Vol] 0.93 mg/dL 0.70-1.20 [facility] Serum globulin measurementOr dered By: Rachel Johnson on 03-04-2025 Globulin (S) [Mass/Vol] 3.4 g/dL 2.2-4.2 [facility] Serum glucose measurement (m ass/volume)Ordered By: Rachel Johnson on 03-04-2025 Glucose [Mass/Vol] 321 mg/dL High 70-99 [facility] Serum or plasma alanine henson otransferase (ALT) measurementOrdered By: Rachel Johnson on 03-04-2025 ALT [Catalytic activity/Vol] 11 U/L <35 [facility] Serum or plasma albumin juan urement (mass/volume)Ordered By: Rachel Johnson on 03-04-2025 Albumin [Mass/Vol] 3.7 g/dL 3.4-4.8 [facility] Serum or plasma albumin/glob ulin mass ratioOrdered By: Rachel Johnson on 03-04-2025 Albumin/Globulin [Mass ratio] 1.1 {ratio} 0.9-2.4 [facility] Serum or plasma alkaline ronnie sphatase measurementOrdered By: Rachel Johnson on 03-04-2025 ALP [Catalytic activity/Vol] 57 U/L 35-104 [facility] Serum or plasma calcium juan urement (mass/volume)Ordered By: Rachel Johnosn on 03-04-2025 Calcium [Mass/Vol] 9.2 mg/dL 7.6-11.0 [facility] Serum or plasma urea nitroge n measurement (mass/volume)Ordered By: Rachel Johnson on 03-04-2025 Urea nitrogen [Mass/Vol] 15 mg/dL 4-19 [facility] Sodium levelOrdered By: Joan Johnson on 03-04-2025 Sodium [Moles/Vol] 139 mmol/L 133-145 [facility] Total proteinOrdered By: Gurjit Johnson on 03-04-2025 Protein [Mass/Vol] 7.1 g/dL 5.9-8.4 [facility] White blood cell (WBC) count Ordered By: Rachel Johnson on 03-04-2025 WBC (Bld) [#/Vol] 7.4 10*3/uL 4[facility]4-11.0 [facility] ([facility] MANISHA KEITH ([id number]) 1950 F Date Time Provider Department 02/28/25 YUNIER OWEN During your visit today, we recorded the following information about you: Lisa Lopez 02/28/2025 3:02 PM Signed Patient calling in asking if she can get a call back to go over her latest CT scan results of her chest. Please review and advise. Lisa Lopez February 28, 2025 3:02 PM Aliyah Holt APRN.CHRISTA 03/01/2025 4:40 PM Signed Called to review CT results with patient. 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 RUL ground glass nodule is stable but will continue surveillance. Plan to repeat chest CT in 1 year, will order at follow-up. Needs to be with super dimensional bronchoscopy protocol in February 2026. Patient understands recommendations. Aliyah Holt APRN.MATERIAL LOADER Allergies As of Date: 02/28/2025 Noted Allergy Reaction JESENIA INHIBITORS 03/27/2014 3 - Cough NSAIDS (NON-STEROIDAL ANTI-INFLAM*05/09/2009 8 - GI Upset TAPE (ADHESIVE TAPE (ROSINS)) 10/26/2016 14 - Other: See Comments Comments: Blisters from surgical tape TRULICITY (DULAGLUTIDE) 05/04/2021 14 - Other: See Comments Comments: Gastroparesis Date Reviewed: 02/20/2025 Reviewed by: Timbo Del Valle LPN - Fully Assessed Reason for Visit: Results [95] Prescriptions as of 03/01/2025 - solifenacin (VESICARE) 10 mg tablet Take 1 tablet by mouth once daily. - tiZANidine (ZANAFLEX) 2 mg tablet Take 1 tablet by mouth every 6 hours as needed. - diazePAM (VALIUM) 2 mg tablet Take 2 mg by mouth every 8 hours as needed (muscle spasms). - fluticasone-salmeterol (WIXELA INHUB) 500-50 mcg/dose dsdv Inhale 1 puff as instructed two times a day. - HUMULIN R U-500, CONC, KWIKPEN 500 unit/mL (3 mL) inpn 55 units in AM with meal and 35 units in PM with meal Per Dr. Chi. - Blood-Glucose Sensor (FREESTYLE MITZI 3 SENSOR) krystyna Use as directed - erythromycin (ROMYCIN) 5 mg/gram (0.5 %) ophthalmic ointment APPLY OINTMENT INTO EACH EYE NIGHTLY - pantoprazole DR (PROTONIX) 40 mg tablet Take 1 tablet by mouth once daily. - gabapentin (NEURONTIN) 300 mg capsule Take 1 capsule by mouth daily at bedtime. - atorvastatin (LIPITOR) 20 mg tablet Take 1 tablet by mouth daily at bedtime. For cholesterol. - fluticasone (FLONASE) 50 mcg/actuation nasal spray USE 1 SPRAY IN EACH NOSTRIL ONCE DAILY AT BEDTIME DIRECTED - metoprolol succinate ER (TOPROL XL) 100 mg Take 1 tablet by mouth once daily. - albuterol HFA (PROVENTIL HFA, VENTOLIN HFA) 90 mcg/actuation inhaler Inhale 2 Puffs as instructed every 4 hours as needed for wheezing/shortness of breath. - aspirin, enteric coated (ASPIRIN, ENTERIC COATED) 81 mg EC tablet Take 81 mg by mouth once daily. - CPAP/BIPAP/OTHER Type .CPAPSettings into a note to see current settings/supplies/DME information. - losartan (COZAAR) 100 mg tablet Take 1 tablet by mouth once daily. - escitalopram oxalate (LEXAPRO) 10 mg tablet Take 1 tablet by mouth once daily. - FOLDING WALKER WITH 5 WHEELS Use with ambulation - blood sugar diagnostic (BLOOD GLUCOSE TEST) test strip Test blood sugar(s) 3 times daily. Dx: Type 2 DM - Uncontrolled E11.65 Insulin: Yes - Lancets Test blood sugar(s) 3 times daily. Dx: Type 2 DM - Controlled E11.9 Insulin: Yes - cetirizine (ZYRTEC) 10 mg tablet Take 1 tablet by mouth once daily. - hydroCHLOROthiazide 12.5 mg capsule Take 1 capsule by mouth once daily. - FOLIC ACID ORAL Take by mouth. - methotrexate 2.5 mg tablet Take 20 mg by mouth every Tuesday. - melatonin 3 mg tablet Take 1 tablet at 9PM nightly. - insulin needles, DISPOSABLE, (PEN NEEDLE) 31 gauge x 5/16 Use one needle per dose. 4 per day. - blood sugar diagnostic (ONETOUCH VERIO TEST STRIPS) test strip Test blood sugar(s) 3-4 times daily. Dx: Other DM Code E11.319 Insulin: Yes - Cholecalciferol, Vitamin D3, 50 mcg (2,000 unit) cap Take 1 capsule by mouth once daily. - Blood-Glucose Meter monitoring kit Glucose Meter of Choice - Kit - Dx: Type 2 DM - Controlled E11.9 - COMPOUNDED PRESCRIPTION Insulin needles-1/2 cc for 100 u Use up to 4 a day - fluorometholone (FML LIQUID FILM) 0.1 % ophthalmic suspension Use 2 Drops in the left eye twice daily. Meds Comments as of 02/06/2021: Pt states she no longer takes baby aspirin, skelaxin, to reclast, no prednisone, No MVI, 02/06/2021 TP Problem List As Of Date 02/28/2025 Noted Resolved BENIGN HYPERTENSION [I10] 05/28/2005 09/01/2007 Hyperlipidemia [E78.5] 05/28/2005 LOC PRIM OSTEOART-PELVIS [M16.10] 05/28/2005 06/04/2006 Allergic rhinitis [J30.9] 05/28/2005 Diabetes (HCC) [E11.9] 05/28/2005 06/27/2015 Unspecified sleep apnea [G47.30] 05/28/2005 12/07/2013 Osteoarthritis [M19.90] 05/28/2005 Irritable bowel syndrome [K58.9] 06/04/2006 11/25/2016 Dysuria [R30.0] 01/02/2007 05/25/2016 Unspecified sinusitis (c (more content not included)... [facility] KEITHMANISHA ([id number]) 1950 F Date Time Provider Department 02/25/25 ALIYAH HOLT During your visit today, we recorded the following information about you: Carol Alex RN 02/25/2025 12:04 PM Signed Call received from Pt - name AND verified. Pt calling back to follow-up on CT scan results from 02/19/2025. Prelim results were discussed at the time of her OV with Aliyah Holt APRN.MATERIAL LOADER. Final results still pending at this time. Pt is notified and voices understanding. Carol Alex RN February 25, 2025 12:04 PM Allergies As of Date: 02/25/2025 Noted Allergy Reaction JESENIA INHIBITORS 03/27/2014 3 - Cough NSAIDS (NON-STEROIDAL ANTI-INFLAM*05/09/2009 8 - GI Upset TAPE (ADHESIVE TAPE (ROSINS)) 10/26/2016 14 - Other: See Comments Comments: Blisters from surgical tape TRULICITY (DULAGLUTIDE) 05/04/2021 14 - Other: See Comments Comments: Gastroparesis Date Reviewed: 02/20/2025 Reviewed by: Timbo Del Valle LPN - Fully Assessed Reason for Visit: Results [95] Prescriptions as of 02/25/2025 - solifenacin (VESICARE) 10 mg tablet Take 1 tablet by mouth once daily. - tiZANidine (ZANAFLEX) 2 mg tablet Take 1 tablet by mouth every 6 hours as needed. - diazePAM (VALIUM) 2 mg tablet Take 2 mg by mouth every 8 hours as needed (muscle spasms). - fluticasone-salmeterol (WIXELA INHUB) 500-50 mcg/dose dsdv Inhale 1 puff as instructed two times a day. - HUMULIN R U-500, CONC, KWIKPEN 500 unit/mL (3 mL) inpn 55 units in AM with meal and 35 units in PM with meal Per Dr. Chi. - Blood-Glucose Sensor (FREESTYLE MITZI 3 SENSOR) krystyna Use as directed - erythromycin (ROMYCIN) 5 mg/gram (0.5 %) ophthalmic ointment APPLY OINTMENT INTO EACH EYE NIGHTLY - pantoprazole DR (PROTONIX) 40 mg tablet Take 1 tablet by mouth once daily. - gabapentin (NEURONTIN) 300 mg capsule Take 1 capsule by mouth daily at bedtime. - atorvastatin (LIPITOR) 20 mg tablet Take 1 tablet by mouth daily at bedtime. For cholesterol. - fluticasone (FLONASE) 50 mcg/actuation nasal spray USE 1 SPRAY IN EACH NOSTRIL ONCE DAILY AT BEDTIME DIRECTED - metoprolol succinate ER (TOPROL XL) 100 mg Take 1 tablet by mouth once daily. - albuterol HFA (PROVENTIL HFA, VENTOLIN HFA) 90 mcg/actuation inhaler Inhale 2 Puffs as instructed every 4 hours as needed for wheezing/shortness of breath. - aspirin, enteric coated (ASPIRIN, ENTERIC COATED) 81 mg EC tablet Take 81 mg by mouth once daily. - CPAP/BIPAP/OTHER Type .CPAPSettings into a note to see current settings/supplies/DME information. - losartan (COZAAR) 100 mg tablet Take 1 tablet by mouth once daily. - escitalopram oxalate (LEXAPRO) 10 mg tablet Take 1 tablet by mouth once daily. - FOLDING WALKER WITH 5 WHEELS Use with ambulation - blood sugar diagnostic (BLOOD GLUCOSE TEST) test strip Test blood sugar(s) 3 times daily. Dx: Type 2 DM - Uncontrolled E11.65 Insulin: Yes - Lancets Test blood sugar(s) 3 times daily. Dx: Type 2 DM - Controlled E11.9 Insulin: Yes - cetirizine (ZYRTEC) 10 mg tablet Take 1 tablet by mouth once daily. - hydroCHLOROthiazide 12.5 mg capsule Take 1 capsule by mouth once daily. - FOLIC ACID ORAL Take by mouth. - methotrexate 2.5 mg tablet Take 20 mg by mouth every Tuesday. - melatonin 3 mg tablet Take 1 tablet at 9PM nightly. - insulin needles, DISPOSABLE, (PEN NEEDLE) 31 gauge x 5/16 Use one needle per dose. 4 per day. - blood sugar diagnostic (ONETOUCH VERIO TEST STRIPS) test strip Test blood sugar(s) 3-4 times daily. Dx: Other DM Code E11.319 Insulin: Yes - Cholecalciferol, Vitamin D3, 50 mcg (2,000 unit) cap Take 1 capsule by mouth once daily. - Blood-Glucose Meter monitoring kit Glucose Meter of Choice - Kit - Dx: Type 2 DM - Controlled E11.9 - COMPOUNDED PRESCRIPTION Insulin needles-1/2 cc for 100 u Use up to 4 a day - fluorometholone (FML LIQUID FILM) 0.1 % ophthalmic suspension Use 2 Drops in the left eye twice daily. Meds Comments as of 02/06/2021: Pt states she no longer takes baby aspirin, skelaxin, to reclast, no prednisone, No MVI, 02/06/2021 TP Problem List As Of Date 02/25/2025 Noted Resolved BENIGN HYPERTENSION [I10] 05/28/2005 09/01/2007 Hyperlipidemia [E78.5] 05/28/2005 LOC PRIM OSTEOART-PELVIS [M16.10] 05/28/2005 06/04/2006 Allergic rhinitis [J30.9] 05/28/2005 Diabetes (HCC) [E11.9] 05/28/2005 06/27/2015 Unspecified sleep apnea [G47.30] 05/28/2005 12/07/2013 Osteoarthritis [M19.90] 05/28/2005 Irritable bowel syndrome [K58.9] 06/04/2006 11/25/2016 Dysuria [R30.0] 01/02/2007 05/25/2016 Unspecified sinusitis (chronic) [J32.9] 06/01/2007 05/25/2016 Other specified disorder of bladder [596.8] 06/20/2007 11/25/2016 ASYMPTOMATIC VARICOSE VEINS [I83.90] 11/17/2007 Reflux esophagitis [K21.00] ESOPHAGITIS, UNSPECIFIED [K20.90] 07/23/2008 07/30/2008 Malignant ne (more content not included)... Normal [facility] Bacteria Ur Culton 5 Bacteria identified Cx Nom (U) ORGANISM ID: 1 10,000 -<50,000 CFU/ml Mixed microbiota No further workup. Mixed microbiota can be due to???urine???contamina tion with skin bacteria at time of collection or presence of a long-term urinary catheter. If a new culture is needed, please consider re-education of the patient on proper midstream collection technique or straight catheterization for???urine???collecti on. Normal [facility] Comment on above: Performed By: #### 6 30-4 ####[facility] LABCLIA [id number] MIGUEL BALDWIN [place] [id number] [place] CNOVon 02-20-2025 CNOV Office Visit (FAMPWS ) MANISHA KEITH ([id number]) 1950 F Date Time Provider Department 02/20/25 1:20 PM [facility] During your visit today, we recorded the following information about you: Pulse Respiration Blood pressure 80/minute 16/minute 140/90 Ysabel Edwards APRN.MATERIAL LOADER 02/20/2025 1:43 PM Signed - Start Vesicare (solifenacin) 1 tablet once daily for your urinary frequency; stop taking oxybutynin while you?re on Vesicare. - Use tizanidine as needed for muscle spasms; be aware it may cause drowsiness. - Cut back on coffee and other bladder irritants to help reduce urinary urgency. - Practice Kegel exercises to strengthen your bladder control: try stopping your urine mid-stream and repeat squeezes while sitting or during daily activities. - Drink plenty of fluids to stay hydrated and help manage muscle cramps and leg swelling. - Reduce sodium intake by avoiding high-salt processed foods (canned soups or vegetables, lunch meats, TV dinners, condiments) to lessen leg swelling. - Call the office to let us know how you?re tolerating Vesicare and tizanidine or if your urinary symptoms or spasms worsen. Ysabel Edwards APRN.CNP 02/20/2025 5:07 PM Signed This is a 74 year old female who presents today with: Manisha Keith is a 74-year-old female with a history of DM, presenting for evaluation of muscle spasms, urinary frequency, and leg pain and swelling. HISTORY OF PRESENT ILLNESS: Muscle Spasms: - Intermittent muscle spasms under ribs, occurring 1-2 times/month, lasting for extended periods. - Spasms began years ago, with episodes leading to hospitalizations in [place] and [place]. - Previously managed with Valium. - Wonders if spasms could be related to pancreas. - Recent CT scan pending; September scan showed no upper abdominal abnormalities. Urinary Frequency: - Chronic urinary frequency, voiding 3 times/night and more frequently during the day. - Denies dysuria. - Managed with oxybutynin, recently increased to 2 tablets daily with diminishing efficacy. - Reports urge incontinence. - High fluid intake, including water and Sprite Zero; drinks a lot of coffee. PAST MEDICAL HISTORY: PAST MEDICAL HISTORY Diagnosis Date Allergic rhinitis, cause unspecified Arthritis Asthma (HCC) Childhood asthma Breast cancer (HCC) age 34-had lump, cancerous cells. no issues since, left Diverticulosis of colon (without mention of hemorrhage) Ground glass opacity present on imaging of lung Heme positive stool 2011 History of cervical cancer regular Paps for life Hyperlipidemia 2011 Inflammatory polyarthritis (HCC) Dr. 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) Sleep apnea Not on CPAP Type II or unspecified type diabetes mellitus without mention of complication, not stated as uncontrolled Unspecified essential hypertension PAST SURGICAL HISTORY Procedure Laterality Date ABDOMINAL SURGERY HX hx of feeding tube inserted APPENDECTOMY HX COLONOSCOPY FLX DX W/COLLJ SPEC WHEN PFRMD 06/26/2009 COLONOSCOPY FLX DX W/COLLJ SPEC WHEN PFRMD 04/10/2019 Colonoscopy COLONOSCOPY SCREENING 02/11/2022 Dr Olivas EGD 2010 EGD 02/11/2022 Dr Olivas ERCP DX COLLECTION SPECIMEN BRUSHING/WASHING 07/23/2008 Cholangiopancreatograp hy (ERCP) ESOPHAGOGASTRODUODENOS COPY TRANSORAL DIAGNOSTIC 04/10/2019 EGD EYE SURGERY HX L'SCOPE CHOLECYSTECTOMY 12/30/2023 MASTECTOMY Left age 34 Mastectomy - simple PAST SURGICAL HISTORY OF nose cauterized inside PAST SURGICAL HISTORY OF removal of skin cancer from right arm PAST SURGICAL HISTORY OF Left 10/11/[address] Scott Sutton REMOVAL GALLBLADDER 2023 RM[facility] CORNEO-SCLL SCTJ Bilateral Cataract removal BILATERAL TOTAL ABDOMINAL HYSTERECT W/WO RMVL TUBE OVARY age 27 Hysterectomy, MARQUES cervical cancer, has one ovary left ALLERGIES Jesenia Inhibitors, Nsaids (Non-Steroidal Anti-Inflammatory Drug), Tape [Adhesive Tape (Rosins)], and Trulicity [Dulaglutide] MEDICATIONS Current Outpatient Medications Medication Sig solifenacin (VESICARE) 10 mg tablet Take 1 tablet by mouth once daily. tiZANidine (ZANAFLEX) 2 mg tablet Take 1 tablet by mouth every 6 hours as needed. diazePAM (VALIUM) 2 mg tablet Take 2 mg by mouth every 8 hours as needed (muscle spasms). fluticasone-salmeterol (WIXELA INHUB) 500-50 mcg/dose dsdv Inhale 1 puff as instructed two times a day. HUMULIN R U-500, CONC, KWIKPEN 500 unit/mL (3 mL) inpn 55 units in AM with meal and 35 units in PM with meal Per Dr. Chi. Blood-Glucose Sensor (FREESTYLE MITZI 3 SENSOR) krystyna Use as dire (more content not included)... Normal [facility] UA DIP, URINE (POC)on 2024 BILIRUBIN UA (POCT) Negative Negative [facility] CLARITY UA (POCT) [facility] COLOR UA (POCT) Yellow [facility] GLUCOSE UA (POCT) 500 mg/dL Abnormal Negative [facility] Hemoglobin Ql (U) Negative Negative [facility] Interpretation and review of laboratory results Abnormal [facility] KETONE UA (POCT) Negative Negative mg/dL [facility] LEUKOCYTES UA (POCT) Negative Negative [facility] NITRITE UA (POCT) Negative Negative [facility] PH UA (POCT) 5.5 4.5 - 8.0 [facility] Protein Ql (U) Trace Abnormal Negative mg/dL [facility] SPECIFIC GRAVITY UA (POCT) 1.025 1.005 - 1.030 [facility] UROBILINOGEN UA (POCT) 0.2 Viktoriya l E.U./dL [facility] Location:[address], [place], [place], [id number] [place] [address] POINT OF CARE [facility] CNOVon 02-19-2025 CNOV Office Visit (PULMWS ) MANISHA KEITH ([id number]) 1950 F Date Time Provider Department 02/19/25 1:30 PM ALIYAH HOLT PULMWS During your visit today, we recorded the following information about you: Aliyah Holt, 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 02/19/2025 3:46 PM Signed Pulmonary Medicine Patients name: Manisha Keith PCP: Ilir Hernández MD CC: follow-up HPI: Manisha Keith is a 74 year old female former 22 pack year smoker, quitting in 2000 with PMH significant for obesity, childhood asthma, allergies, HLD, inflammatory arthritis, RICARDO on CPAP, DM, HTN, GERD, lung nodule. Hx of Methacholine challenge testing officially negative but patient had 20% drop in FEV1 at last dose. BAUDILIO 09/[address] showing stable RUL groundglass nodule. Showed new AVNI nodule, recommended surveillance CT. Reported stable Asthma symptoms. Current inhaled therapy with Wixela. She presents today for follow-up and updated chest CT. Since her last visit, she reports poor control of her asthma symptoms. Using Wixela once a day and also needing Albuterol about once a day. Today, patient reports cough can be bothersome. Usually produces yellow/white sputum. There are times cough goes away for a period of time before resuming, reports allergies may be contributing. Uses Mucinex occasionally which is helpful. She reports wheezing is frequent. Has occasional chest tightness. Denies dyspnea at rest. Has exertional breath with climbing stairs or heavy activity. No recent fevers, chills or night sweats. No recent hospitalizations or ED visits or upper respiratory infections. Historically the [facility] panel negative. Uses Flonase on occasion for congestion/PND. Reviewed updated chest CT today. Has not been read by radiology but from my view, AVNI nodule has resolved. RUL groundglass nodule appears unchanged. PAST MEDICAL HISTORY Diagnosis Date Allergic rhinitis, cause unspecified Arthritis Asthma (HCC) Childhood asthma Breast cancer (HCC) age 34-had lump, cancerous cells. no issues since, left Diverticulosis of colon (without mention of hemorrhage) Ground glass opacity present on imaging of lung Heme positive stool 2010 History of cervical cancer regular Paps for life Hyperlipidemia 2011 Inflammatory polyarthritis ([facility]) Dr. 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 If you have any questions, ask your nurse or doctor. CONTINUE taking these medications albuterol HFA 90 mcg/actuation inhaler Commonly known as: PROVENTIL HFA, VENTOLIN HFA Inhale 2 Puffs as instructed every 4 hours as needed for wheezing/shortness of breath. aspirin, enteric coated 81 mg EC tablet Commonly known as: ASPIRIN, ENTERIC COATED atorvastatin 20 mg tablet Commonly known as: LIPITOR Take 1 tablet by mouth daily at bedtime. For cholesterol. Blood-Glucose Meter monitoring kit Glucose Meter of Choice - Kit - Dx: Type 2 DM - Controlled E11.9 cetirizine 10 mg tablet Commonly known as: ZyrTEC Take 1 tablet by mouth once daily. Cholecalciferol (Vitamin D3) 50 mcg (2,000 unit) Cap Take 1 capsule by mouth once daily. COMPOUNDED PRESCRIPTION Insulin needles-1/2 cc for 100 u Use up to 4 a day CPAP/BIPAP/OTHER Type .CPAPSettings into a note to see current settings/supplies/DME information. erythromycin 5 mg/gram (0.5 %) ophthalmic ointment Commonly known as: ROMYCIN escitalopram oxalate 10 mg tablet Commonly known as: LEXAPRO Take 1 tablet by mouth once daily. fluorometholone 0.1 % ophthalmic suspension Commonly known as: FML LIQUID FILM fluticasone 50 mcg/actuation nasal spray Commonly known as: FLONASE USE 1 SPRAY IN EACH NOSTRIL ONCE DAILY AT BEDTIME DIRECTED fluticasone-salmeterol 250-50 mcg/dose inhaler Commonly known as: ADVAIR, WIXELA Inhale 1 Puff as instructed two times a day. FOLDING WALKER WITH 5 WHEELS Use with ambulation FOLIC ACID PO FREESTYLE MITZI 3 SENSOR Krystyna Generic drug: Blood-Glucose Sensor Use as directed gabapentin 300 mg capsule Commonly known as: NEURONTIN Take 1 capsule by mouth daily at bedtime. HumuLIN R U-500 (Conc) Kwikpen 500 unit/mL (3 mL) Inpn Generic drug: insulin regular h (more content not included)... [facility] MANISHA KEITH ([id number]) 1950 F Date Time Provider Department 02/19/25 [facility] During your visit today, we recorded the following information about you: Mariia Mart LPN 02/19/2025 1:38 PM Signed Patient in pulmonary clinic today and asking for refill of diazepam 2mg tablets. Uses PRN for muscle spasms. Last RX 11/2022. [facility] preferred pharmacy. CHAPITO Chaves William J, MD 02/19/2025 1:40 PM Signed We have not refilled these for several years. That is not a great med to be continuing to use. If having muscle spasms to the extent she would need something like that, we would need to see her for it. Kerry Spivey MA 02/19/2025 4:07 PM Signed Spoke with pt, states she has muscle spasms, all over, but mostly under ribs. She saw pulmonology today and had repeat ct scan. Scheduled with Ysabel for tomorrow. Kerry Spivey MA February 19, 2025 4:06 PM Allergies As of Date: 02/19/2025 Noted Allergy Reaction JESENIA INHIBITORS 03/27/2014 3 - Cough NSAIDS (NON-STEROIDAL ANTI-INFLAM*05/09/2009 8 - GI Upset TAPE (ADHESIVE TAPE (ROSINS)) 10/26/2016 14 - Other: See Comments Comments: Blisters from surgical tape TRULICITY (DULAGLUTIDE) 05/04/2021 14 - Other: See Comments Comments: Gastroparesis Date Reviewed: 02/19/2025 Reviewed by: Aliyah Holt APRN.MATERIAL LOADER - Fully Assessed Reason for Visit: Refill Request [94] Prescriptions as of 02/19/2025 - diazePAM (VALIUM) 2 mg tablet Take 2 mg by mouth every 8 hours as needed (muscle spasms). - fluticasone-salmeterol (WIXELA INHUB) 500-50 mcg/dose dsdv Inhale 1 puff as instructed two times a day. - HUMULIN R U-500, CONC, KWIKPEN 500 unit/mL (3 mL) inpn 55 units in AM with meal and 35 units in PM with meal Per Dr. Chi. - Blood-Glucose Sensor (FREESTYLE MITZI 3 SENSOR) krystyna Use as directed - erythromycin (ROMYCIN) 5 mg/gram (0.5 %) ophthalmic ointment APPLY OINTMENT INTO EACH EYE NIGHTLY - pantoprazole DR (PROTONIX) 40 mg tablet Take 1 tablet by mouth once daily. - gabapentin (NEURONTIN) 300 mg capsule Take 1 capsule by mouth daily at bedtime. - atorvastatin (LIPITOR) 20 mg tablet Take 1 tablet by mouth daily at bedtime. For cholesterol. - fluticasone (FLONASE) 50 mcg/actuation nasal spray USE 1 SPRAY IN EACH NOSTRIL ONCE DAILY AT BEDTIME DIRECTED - metoprolol succinate ER (TOPROL XL) 100 mg Take 1 tablet by mouth once daily. - oxybutynin ER (DITROPAN XL) 10 mg 24 hr tablet Take 2 tablets by mouth once daily. - albuterol HFA (PROVENTIL HFA, VENTOLIN HFA) 90 mcg/actuation inhaler Inhale 2 Puffs as instructed every 4 hours as needed for wheezing/shortness of breath. - Omeprazole 20 mg TbEC Take by mouth. - aspirin, enteric coated (ASPIRIN, ENTERIC COATED) 81 mg EC tablet Take 81 mg by mouth once daily. - verapamil SR (CALAN SR) 120 mg CR tablet Take 1 tablet by mouth daily at bedtime. - CPAP/BIPAP/OTHER Type .CPAPSettings into a note to see current settings/supplies/DME information. - losartan (COZAAR) 100 mg tablet Take 1 tablet by mouth once daily. - escitalopram oxalate (LEXAPRO) 10 mg tablet Take 1 tablet by mouth once daily. - FOLDING WALKER WITH 5 WHEELS Use with ambulation - blood sugar diagnostic (BLOOD GLUCOSE TEST) test strip Test blood sugar(s) 3 times daily. Dx: Type 2 DM - Uncontrolled E11.65 Insulin: Yes - Lancets Test blood sugar(s) 3 times daily. Dx: Type 2 DM - Controlled E11.9 Insulin: Yes - cetirizine (ZYRTEC) 10 mg tablet Take 1 tablet by mouth once daily. - hydroCHLOROthiazide 12.5 mg capsule Take 1 capsule by mouth once daily. - FOLIC ACID ORAL Take by mouth. - methotrexate 2.5 mg tablet Take 20 mg by mouth every Tuesday. - melatonin 3 mg tablet Take 1 tablet at 9PM nightly. - insulin needles, DISPOSABLE, (PEN NEEDLE) 31 gauge x 5/16 Use one needle per dose. 4 per day. - ondansetron orally disintegrating (ZOFRAN ODT) 4 mg disintegrating tablet DISSOLVE 1 TABLET IN MOUTH THREE TIMES DAILY NEEDED FOR NAUSEA AND VOMITING - blood sugar diagnostic (ONETOUCH VERIO TEST STRIPS) test strip Test blood sugar(s) 3-4 times daily. Dx: Other DM Code E11.319 Insulin: Yes - Cholecalciferol, Vitamin D3, 50 mcg (2,000 unit) cap Take 1 capsule by mouth once daily. - Blood-Glucose Meter monitoring kit Glucose Meter of Choice - Kit - Dx: Type 2 DM - Controlled E11.9 - COMPOUNDED PRESCRIPTION Insulin needles-1/2 cc for 100 u Use up to 4 a day - fluorometholone (FML LIQUID FILM) 0.1 % ophthalmic suspension Use 2 Drops in the left eye twice daily. Meds Comments as of 02/06/2021: Pt states she no longer takes baby aspirin, skelaxin, to reclast, no prednisone, No MVI, 02/06/2021 TP Problem List As Of Date 02/19/2025 Noted Resolved BENIGN HYPERTENSION [I10] 05/28/2005 09/01/2007 Hyperlipidemia [E78.5] 05/28/2005 LOC PRIM OSTEOART-PELVIS (more content not included)... Normal [facility] CT CHEST WO IVCONon 02-20-[address] CHEST WO IVCON * * *Final Report* * * DATE OF EXAM: Feb 19 2025 1:30PM [facility] 0541 - CT CHEST WO IVCON / PROCEDURE REASON: Lung nodules * * * * Physician Interpretation * * * * EXAMINATION: CHEST CT WITHOUT CONTRAST CLINICAL HISTORY: Lung nodules Technique: Spiral CT acquisition of the chest from the thoracic inlet to the upper abdomen without contrast. MQ: [id number] CT Radiation dose: Integrated Dose-length product (DLP) for this visit = 364 mGy*cm CT Dose Reduction Employed: Automated exposure control(AEC) and iterative recon Comparison: Multiple chest CTs dating back to 09/27/2022 RESULT: Limitations: None. Lines, tubes, and devices: None. Lung parenchyma and airways: No focal consolidation. Resolved prior bilateral upper lobe pulmonary nodules. Stable 1.2 x 0.9 cm right upper lobe round breast nodule on image 32 dating back to 2022. Stable linear atelectasis/scarring in the posterior bilateral lower lobes. There is diffuse mosaic attenuation in both lungs. No endotracheal or central endobronchial lesion is identified. Pleural space: No pleural effusion or thickening. No pneumothorax. Lower neck, lymph nodes, and mediastinum: The imaged thyroid gland is normal. No lymphadenopathy in the supraclavicular, axillary, mediastinal, or hilar regions. The esophagus is unremarkable. Heart, pericardium, and thoracic vessels: The thoracic aorta and main pulmonary artery are normal in caliber. The cardiac chambers are normal in size. Mild coronary artery atherosclerotic calcifications are noted, although the study is not optimized for coronary assessment. Trace pericardial effusion is seen. Mitral annulus and aortic valve calcifications are present. Mild atherosclerotic calcifications of the thoracic aorta and arch vessels. Bones and soft tissues: No acute osseous abnormality. Postsurgical changes of left mastectomy. Upper abdomen: Status post cholecystectomy. Unchanged left adrenal nodule. Localizer images: No additional findings. IMPRESSION: 1. Resolved prior bilateral upper lobe pulmonary nodules, likely infectious/inflammator y process. 2. Stable 1.2 cm right upper lobe nodule dating back to 2022, for which indolent lesion along the spectrum of adenocarcinoma cannot be excluded. Continued attention on follow-up is recommended. 3. Diffuse mosaic attenuation in both lungs, likely related to small airway disease. 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MOOKIE Transcribe Date/Time: Feb 28 2025 9:24A Dictated by : DARIUSZ CESPEDES MD This examination was interpreted and the report reviewed and electronically signed by: DARIUSZ CESPEDES MD on Feb 28 2025 9:29AM EST [id number] Normal [facility] 01-22-[facility] ([facility]) MANISHA KEITH ([id number]) 1950 F Date Time Provider Department 01/22/25 ILIR HERNÁNDEZ [facility] During your visit today, we recorded the following information about you: Allergies As of Date: 01/22/2025 Noted Allergy Reaction JESENIA INHIBITORS 03/27/2014 3 - Cough NSAIDS (NON-STEROIDAL ANTI-INFLAM*05/09/2009 8 - GI Upset TAPE (ADHESIVE TAPE (ROSINS)) 10/26/2016 14 - Other: See Comments Comments: Blisters from surgical tape TRULICITY (DULAGLUTIDE) 05/04/2021 14 - Other: See Comments Comments: Gastroparesis Date Reviewed: 12/20/2024 Reviewed by: Juan Peralta, CAROL - Fully Assessed Order(s):HBA1C (OUTSIDE) [[id number]] Order #: [id number] Prescriptions as of 01/22/2025 - HUMULIN R U-500, CONC, KWIKPEN 500 unit/mL (3 mL) inpn 55 units in AM with meal and 35 units in PM with meal Per Dr. Chi. - Blood-Glucose Sensor (FREESTYLE MITZI 3 SENSOR) krystyna Use as directed - erythromycin (ROMYCIN) 5 mg/gram (0.5 %) ophthalmic ointment APPLY OINTMENT INTO EACH EYE NIGHTLY - pantoprazole DR (PROTONIX) 40 mg tablet Take 1 tablet by mouth once daily. - triamcinolone acetonide (KENALOG) 0.1 % cream Apply 1 application to affected area two times a day. Apply to affected area. Location: legs - gabapentin (NEURONTIN) 300 mg capsule Take 1 capsule by mouth daily at bedtime. - atorvastatin (LIPITOR) 20 mg tablet Take 1 tablet by mouth daily at bedtime. For cholesterol. - fluticasone (FLONASE) 50 mcg/actuation nasal spray USE 1 SPRAY IN EACH NOSTRIL ONCE DAILY AT BEDTIME DIRECTED - metoprolol succinate ER (TOPROL XL) 100 mg Take 1 tablet by mouth once daily. - oxybutynin ER (DITROPAN XL) 10 mg 24 hr tablet Take 2 tablets by mouth once daily. - ammonium lactate (LAC-HYDRIN) 12 % lotion Apply to affected area as needed. - albuterol HFA (PROVENTIL HFA, VENTOLIN HFA) 90 mcg/actuation inhaler Inhale 2 Puffs as instructed every 4 hours as needed for wheezing/shortness of breath. - fluticasone-salmeterol (ADVAIR, WIXELA) 250-50 mcg/dose inhaler Inhale 1 Puff as instructed two times a day. - Omeprazole 20 mg TbEC Take by mouth. - aspirin, enteric coated (ASPIRIN, ENTERIC COATED) 81 mg EC tablet Take 81 mg by mouth once daily. - verapamil SR (CALAN SR) 120 mg CR tablet Take 1 tablet by mouth daily at bedtime. - CPAP/BIPAP/OTHER Type .CPAPSettings into a note to see current settings/supplies/DME information. - losartan (COZAAR) 100 mg tablet Take 1 tablet by mouth once daily. - escitalopram oxalate (LEXAPRO) 10 mg tablet Take 1 tablet by mouth once daily. - FOLDING WALKER WITH 5 WHEELS Use with ambulation - blood sugar diagnostic (BLOOD GLUCOSE TEST) test strip Test blood sugar(s) 3 times daily. Dx: Type 2 DM - Uncontrolled E11.65 Insulin: Yes - Lancets Test blood sugar(s) 3 times daily. Dx: Type 2 DM - Controlled E11.9 Insulin: Yes - cetirizine (ZYRTEC) 10 mg tablet Take 1 tablet by mouth once daily. - hydroCHLOROthiazide 12.5 mg capsule Take 1 capsule by mouth once daily. - FOLIC ACID ORAL Take by mouth. - methotrexate 2.5 mg tablet Take 20 mg by mouth every Tuesday. - melatonin 3 mg tablet Take 1 tablet at 9PM nightly. - insulin needles, DISPOSABLE, (PEN NEEDLE) 31 gauge x 5/16 Use one needle per dose. 4 per day. - ondansetron orally disintegrating (ZOFRAN ODT) 4 mg disintegrating tablet DISSOLVE 1 TABLET IN MOUTH THREE TIMES DAILY NEEDED FOR NAUSEA AND VOMITING - blood sugar diagnostic ([place] PurificationTOUCH VERIO TEST STRIPS) test strip Test blood sugar(s) 3-4 times daily. Dx: Other DM Code E11.319 Insulin: Yes - Cholecalciferol, Vitamin D3, 50 mcg (2,000 unit) cap Take 1 capsule by mouth once daily. - Blood-Glucose Meter monitoring kit Glucose Meter of Choice - Kit - Dx: Type 2 DM - Controlled E11.9 - COMPOUNDED PRESCRIPTION Insulin needles-1/2 cc for 100 u Use up to 4 a day - fluorometholone (FML LIQUID FILM) 0.1 % ophthalmic suspension Use 2 Drops in the left eye twice daily. Meds Comments as of 02/06/2021: Pt states she no longer takes baby aspirin, skelaxin, to reclast, no prednisone, No MVI, 02/06/2021 TP Problem List As Of Date 01/22/2025 Noted Resolved BENIGN HYPERTENSION [I10] 05/28/2005 09/01/2007 Hyperlipidemia [E78.5] 05/28/2005 LOC PRIM OSTEOART-PELVIS [M16.10] 05/28/2005 06/04/2006 Allergic rhinitis [J30.9] 05/28/2005 Diabetes (HCC) [E11.9] 05/28/2005 06/27/2015 Unspecified sleep apnea [G47.30] 05/28/2005 12/07/2013 Osteoarthritis [M19.90] 05/28/2005 Irritable bowel syndrome [K58.9] 06/04/2006 11/25/2016 Dysuria [R30.0] 01/02/2007 05/25/2016 Unspecified sinusitis (chronic) [J32.9] 06/01/2007 05/25/2016 Other specified disorder of bladder [596.8] 06/20/2007 11/25/2016 ASYMPTOMATIC VARICOSE VEINS [I83.90] 11/17/2007 Reflux esophagitis [K21.00] ESOPHAGITIS, UNSPECIFIED [K20.90] 07/23/2008 07/30/2008 Malignant neoplasm of f (more content not included)... Normal [facility] Endocrinology Visit Reporton 01-21-2025 Endocrinology Visit Report [facility] [address] [place] [address] OFFICE VISIT Date of Service: 01/21/25 MR#: [id number] Acct: [id number] Name: MANISHA KEITH Rep #: [id number] : 1950 Provider: Usman Hartman Age/Sex: 74/F Location: [facility] [place], [place] Status: Signed Intake Vital Signs 10/08/24 15:00 01/21/25 13:56 Height 5 ft 2 in 5 ft 2 in Weight: 198 lb 2 oz 194 lb 8 oz BMI 36.2 35.5 BP 136/77 H 151/83 H Blood Pressure Location Rt brachial Rt brachial Position Sitting Sitting Pulse 108 H 91 Pulse Source Monitor Monitor Pulse Oximetry (%) 93 93 Oxygen Delivery Method room air room air Intake Visit Reasons: 2 M FU Chief Complaint: diabetes Is patient in pain?: No Allergies JESENIA Inhibitors Allergy (Intermediate, Verified 01/21/25 14:01) Cough adhesive tape Allergy (Intermediate, Verified 01/21/25 14:01) blisters dulaglutide (From Trulicity) Allergy (Intermediate, Verified 01/21/25 14:01) Gastroparesis Dressing: Non-Medicated (elastic) Allergy (Verified 01/21/25 14:01) Rash NSAIDS (Non-Steroidal Anti-Inflamma Allergy (Verified 01/21/25 14:01) Other Latex, Natural Rubber Adverse Reaction (Mild, Verified 01/21/25 14:01) RASH Medications ???Medication ???Instructions ???Recorded ???Confirmed ???Type fluticasone propionate 50 1 spray intranasal DAILY PRN NASAL 01/30/14 01/21/25 History mcg/actuation nasal CONGESTION spray,suspension methotrexate sodium 2.5 mg tablet 20 mg PO TEJADA BREAST CANCER 7 01/21/25 History escitalopram oxalate 10 mg tablet 10 mg PO DAILY PRN DEPRESSION 01/21/25 History (Lexapro) folic acid 1 mg tablet 2 mg PO DAILY SUPPLEMENT 06/05/21 01/21/25 History hydrochlorothiazide 12.5 mg capsule 12.5 mg PO DAILY BLOOD PRESSURE 06/05/21 01/21/25 History losartan 100 mg tablet 100 mg PO DAILY BLOOD PRESSURE 01/21/25 History aspirin 81 mg tablet,delayed 81 mg PO DAILY HEART HEALTH 01/21/25 History release (Adult Low Dose Aspirin) gabapentin 300 mg capsule 300 mg PO QHS NEUROPATHY 02/05/22 01/21/25 History oxybutynin chloride 10 mg 20 mg PO DAILY OVERACTIVE BLADDER 02/05/22 01/21/25 History tablet,extended release 24 hr metoprolol succinate 100 mg 100 mg PO DAILY BLOOD PRESSURE 01/21/25 History tablet,extended release 24 hr pen needle, diabetic 32 gauge x #100 ea 11/26/22 10/08/24 Rx (BD Ultra-Fine Tish Pen Needle) atorvastatin 20 mg tablet 20 mg PO DAILY CHOLESTEROL 3 01/21/25 History metaxalone 800 mg tablet 800 mg PO TID PRN MUSCLE CRAMPS 01/21/25 History insulin regular hum U-500 conc 500 See Rx Instructions subcut TIDCM 12/28/23 01/21/25 History unit/mL(3 mL) subcut pen (Humulin diabetes R U-500 (Conc) Insulin Kwikpen) zoledronic acid 5 mg/100 mL in See Rx Instructions .Route ONCE 01/21/25 Rx mannitol 5 %-water intravenous #100 mL piggybck blood sugar diagnostic (OneTouch #150 ea 11/14/24 Rx Verio test strips) blood-glucose,repairer cylinder heads ,cont #1 ea 11/14/24 Rx (FreeStyle Mitzi 3 [place]) albuterol sulfate 90 mcg/actuation 2 puff inhalation Q4 PRN wheezin g 01/21/25 01/21/25 History aerosol inhaler ammonium lactate 12 % lotion topical PRN 01/21/25 01/21/25 Hist ory cholecalciferol (vitamin D3) 1,250 1,250 mcg PO QWEEK #12 caps 05/0901/21/25 Rx mcg (50,000 unit) capsule pantoprazole 40 mg tablet,delayed 40 mg PO QDAY 01/21/25 01/21/25 H istory release Have you fallen in the past year?: No [facility] Medical History Depression Ambulates with cane High cholesterol CPAP (continuous positive airway pressure) dependence Closed left hip fracture Osteoporosis Former smoker Sleep apnea Asthma COPD (chronic obstructive pulmonary disease) Essential hypertension History of gastrostomy tube placement Wears glasses Wears dentures History of Clostridium difficile infection Cancer Anxiety Easy bruising Injury of head and neck Restless legs Loss of consciousness Dietary restriction Shortness of breath on exertion Chronic cough History of stress test History of edema Leg cramps History of Holter monitoring Cardiology follow-up encounter History of vaginal delivery Urinary incontinence Internal hemorrhoids History of cervical cancer Diverticulosis Obesity Vision problems Pancreatitis Osteoarthritis Neuropathy IBS (irritable bowel syndrome) Recurrent infections Hives Calcium deficiency Gastrointestinal problem Gall stone Chronic bronchitis Carpal tunnel syndrome Cataract Breast cancer Breast lump UTI (urinary tract infection) Back problem Arthritis Seasonal allergies GERD (gastr (more content not included)... Normal [facility] HBA1C (OUTSIDE)on 01-21-2025 [facility] - Hematology and Cell countson 01-21-2025 HbA1c (Bld) [Mass fraction] 8.8 % High 4.2-6.3 [facility] Comment on above: Dr King shabnam BANSALon 12-20-2024 [facility] Office Visit (PODIWS ) MANISHA KEITH ([id number]) 1950 F Date Time Provider Department 12/20/24 1:00 PM [place] During your visit today, we recorded the following information about you: Juan Peralta, RN 12/20/2024 1:39 PM Signed Patient presents with: Left Foot - Established Patient, Follow Up, Diabetic Foot Care Right Foot - Established Patient, Follow Up, Diabetic Foot Care Patient presents for follow up diabetic foot/nail care. BAUDILIO 08/23/24 [place] 12/20/2024 1:39 PM Signed Last saw pcp: 09/26/24 Subjective: Patient presents to clinic c/o painful toenails. They state that the nails are especially painful with shoe gear and pressure. Patient states that nails b/l hallux are painful. Patient admits to being diabetic. No other pedal complaints at this time. Patient states no change in medications or medical history since last visit. Objective: Patient presents to clinic ambulating in [facility] Vasc: DP and PT pulses are palpable bilateral. CFT is less than 5 seconds bilateral. Skin temperature is warm to cool proximal to distal bilateral. There is no edema or varicosities noted. Neuro: Protective sensation is intact to the foot and toes when tested with the 5.07 SWM bilateral. Vibratory sensation is slightly decreased at the hallux IPJ bilateral. The hallux is downgoing bilateral. Derm: Nails 1-5 b/l are painful, discolored-yellow, thick, crumbly, dystrophic and with subungal debris. Skin is of normal turgor, texture and hair growth is decreased bilateral. There are no hyperkeratosis, ulcerations, scars, verruca or other lesions noted. Ortho: Muscle strength is 5/5 for all pedal groups tested. Ankle joint DF is decreased with the knee extended with no pain or crepitus noted. 1st MPJ ROM is decreased bilateral. Assessment: (B35.1) Onychomycosis (primary encounter diagnosis) (L60.0) Onychocryptosis (E11.42) Diabetic polyneuropathy associated with type 2 diabetes mellitus (HCC) (M79.675) Pain in toe of left foot (M79.674) Pain in toe of right foot Plan: Patient was seen and evaluated. Nails 1-5 bilateral were debrided in length and thickness. Discussed possible removal of b/l hallux nail via chemical matrixectomy in the future. Patient may consider. Patient was instructed on the continued importance of diabetic foot care along with proper diet and keeping their blood sugar under control to prevent complications. I stressed the importance of avoiding barefoot walking, wearing good shoes and inspection of feet. Patient is to RTC in 3-4 months. [place] DPM LatanyaDutch de la garza 12/20/2024 1:20 PM Signed Diabetes Foot Care Instructions When you have diabetes, proper foot care is very important. Poor foot care may lead to amputation of a foot or leg. As a person with diabetes, you are more vulnerable to foot problems, because diabetes can damage your nerves and reduce blood flow to your feet. Here are some diabetes foot care tips to follow: Wash and Dry Your Feet Daily Use mild soaps Use warm water Pat your skin dry; do not rub. Thoroughly dry your feet. After washing, use lotion on your feet to prevent cracking. Do not put lotion between your toes. Examine Your Feet Each Day Check the tops and bottoms of your feet. Have someone else look at your feet if you cannot see them. Check for dry, cracked skin. Look for blisters, cuts, scratches, or other sores. Check for redness, increased warmth, or tenderness when touching any area of your feet. Check for ingrown toenails, corns, and calluses. If you get a blister or sore from your shoes, do not pop it. Apply a bandage and wear a different pair of shoes. Take Care of Your Toenails Cut toenails after bathing, when they are soft. Cut toenails straight across and smooth with a nail file. Avoid cutting into the corners of toes. Do not cut cuticles. If you have neuropathy (or decreased sensation in your feet) a saw man should always cut your toenails. Be Careful When Exercising Walk and exercise in comfortable shoes. Do not exercise when you have open sores on your feet. Protect Your Feet With Shoes and Socks Never go barefoot. Always protect your feet by wearing shoes or hard-soled slippers or footwear. Avoid shoes with high heels and pointed toes. Avoid shoes that expose your toes or heels (such as open-toed shoes or sandals). These types of shoes increase your risk for injury and potential infections. Try on new footwear with the type of socks you usually wear. Do not wear new shoes for more than an hour at a time. Change your socks daily. Look and feel inside your shoes before putting them on to make sure there are no foreign objects or rough areas. Avoid tight socks. Wear natural-fiber socks (cotton, wool, or a cotton-wool blend). Wear special shoes if your health care p (more content not included)... Normal [facility] Absolute lymphocyte countOrd ered By: Rachel Johnson on 12-10-2024 Lymphocytes Auto (Unsp spec) [#/Vol] 1.60 10*3/uL 0.83-4.51 [facility] Absolute neutrophil countOrd ered By: [facility] Alex on 12-10-2024 Neutrophils (Bld) [#/Vol] 6.3 10*3/uL 2.0-7.7 [facility] Anion gap in Serum or Plasma Ordered By: Rachelricardo Johnson on 12-10-2024 Anion gap [Moles/Vol] 12 mmol/L 5-15 [facility] Automated lymphocyte count a s percentage of total leukocytesOrdered By: Rachel Johnson on 12-10-2024 Lymphocytes/100 WBC Auto (Unsp spec) 17.7 % Low 19-41 [facility] BUN/creatinine ratioOrdered By: [facility] on 12-10-2024 Urea nitrogen/Creatinine [Mass ratio] 20.9 mg/mg High 10-20 [facility] Basophil percentageOrdered B y: Rachel Johnson on 12-10-2024 Basophils/100 WBC (Bld) 0.8 % 0-1 [facility] Bilirubin, totalOrdered By: Rachel Johnson on 12-10-2024 Bilirubin [Mass/Vol] 0.29 mg/dL 0.00-1.30 [facility] CBC W/Diff, Automatedon 11-14 Absolute Lymph 1.60 X10 3/uL Normal 0.83-4.51 [facility] Comment on above: Performed By: #### L 100.0100, L500.4050 ####[facility] [address] [place], [address] Absolute Neut 6.3 X10 3/uL Normal 2.0-7.7 [facility] Comment on above: Performed By: #### L 100.0100, L500.4050 ####[facility] [address] [place], [address] Basophils/100 WBC (Bld) 0.8 % Normal 0-1 [facility] Comment on above: Performed By: #### L 100.0100, L500.4050 ####[facility] [address] [place], [address] Eosinophils/100 WBC (Bld) 3.4 % Normal 0-5 [facility] Comment on above: Performed By: #### L 100.0100, L500.4050 ####[facility] [address] [place], [address] Erythrocyte distribution width (RBC) [Ratio] 13.9 % Normal 11.6-14.6 [facility] Comment on above: Performed By: #### L 100.0100, L500.4050 ####[facility] [address] [place], [address] Hematocrit (Bld) [Volume fraction] 36.1 % Low 37-47 [facility] Comment on above: Performed By: #### L 100.0100, L500.4050 ####[facility] [address] [place], [address] Hemoglobin (Bld) [Mass/Vol] 12.3 g/dL Normal 12.0-15.0 [facility] Comment on above: Performed By: #### L 100.0100, L500.4050 ####[facility] [address] [place], [address] IG% 0.700 Normal 0.0-0.9 [facility] Comment on above: Result Comment: IG% - Immature Granulocytes (promyelocytes, myelocytes and metamyelocytes) > 1% indicates that a LEFT SHIFT is Present. Performed By: #### L 100.0100, L500.4050 ####[facility] [address] [place], [address] Lymphocytes/100 WBC (Bld) 17.7 % Low 19-41 [facility] Comment on above: Performed By: #### L 100.0100, L500.4050 ####[facility] [address] [place], [address] MCH (RBC) [Entitic mass] 31.3 pg Normal 27.0-32.0 [facility] Comment on above: Performed By: #### L 100.0100, L500.4050 ####[facility] [address] [place], [address] MCHC (RBC) [Mass/Vol] 34.1 g/dL Normal 32-36 [facility] Comment on above: Performed By: #### L 100.0100, L500.4050 ####[facility] [address] [place], [address] MCV (RBC) [Entitic vol] 91.9 fL Normal 81-99 [facility] Comment on above: Performed By: #### L 100.0100, L500.4050 ####[facility] [address] [place], [address] Monocytes/100 WBC (Bld) 7.5 % Normal 0-10 [facility] Comment on above: Performed By: #### L 100.0100, L500.4050 ####[facility] [address] [place], [address] Neutrophils/100 WBC (Bld) 69.9 % Normal 47-70 [facility] Comment on above: Performed By: #### L 100.0100, L500.4050 ####[facility] [address] [place], [address] Nucleated RBC (Bld) [#/Vol] 0 10*3/uL Normal 0-5 [facility] Comment on above: Performed By: #### L 100.0100, L500.4050 ####[facility] [address] [place], [address] Platelet mean volume (Bld) [Entitic vol] 9.6 fL Normal 6.2-12.0 [facility] Comment on above: Performed By: #### L 100.0100, L500.4050 ####[facility] [address] [place], [address] Platelets (Bld) [#/Vol] 232 10*3/uL Normal 150-450 [facility] Comment on above: Performed By: #### L 100.0100, L500.4050 ####[facility] [address] [place], [address] RBC (Bld) [#/Vol] 3.93 10*6/uL Low 4.2-5.4 [facility] Comment on above: Performed By: #### L 100.0100, L500.4050 ####[facility] [address] [place], [address] RDW SD 45.8 fl High 35.1-43.9 [facility] Comment on above: Performed By: #### L 100.0100, L500.4050 ####[facility] [address] [place], [address] WBC (Bld) [#/Vol] 9.1 10*3/uL Normal 4.4-11.0 [facility] Comment on above: Performed By: #### L 100.0100, L500.4050 ####[facility] [address] [place], [address] Carbon dioxide, total [Moles /volume] in Central venous bloodOrdered By: Rachel Johnson on 12-10-2024 CO2 [Moles/Vol] 25.3 mmol/L 21.0-32.0 [facility] Chloride assayOrdered By: Home Johnson on 12-10-2024 Chloride [Moles/Vol] 101 mmol/L 98-108 [facility] Comprehensive Metabolic Prof ilon 12-10-2024 Albumin [Mass/Vol] 4.0 g/dL Normal 3.4-4.8 [facility] Comment on above: Performed By: #### L 100.0100, L500.4050 ####[facility] [address] [place], [address] Albumin/Globulin [Mass ratio] 1.1 {ratio} Normal 0.9-2.4 [facility] Comment on above: Performed By: #### L 100.0100, L500.4050 ####[facility] [address] [place], [address] ALK PHOS 51 U/L Normal 35-104 [facility] Comment on above: Performed By: #### L 100.0100, L500.4050 ####[facility] [address] [place], [address] ALT [Catalytic activity/Vol] 12 U/L Normal <=34 [facility] Comment on above: Performed By: #### L 100.0100, L500.4050 ####[facility] [address] [place], [address] AST [Catalytic activity/Vol] 16 U/L Normal <=31 [facility] Comment on above: Performed By: #### L 100.0100, L500.4050 ####[facility] [address] [place], [address] Bilirubin [Mass/Vol] 0.29 mg/dL Normal 0.00-1.30 [facility] Comment on above: Performed By: #### L 100.0100, L500.4050 ####[facility] [address] [place], [address] BUN/CRE 20.9 RATIO High 10-20 [facility] Comment on above: Performed By: #### L 100.0100, L500.4050 ####[facility] [address] [place], [address] Calcium [Mass/Vol] 9.7 mg/dL Normal 7.6-11.0 [facility] Comment on above: Performed By: #### L 100.0100, L500.4050 ####[facility] [address] [place], [address] Chloride [Moles/Vol] 101 mmol/L Normal 98-108 [facility] Comment on above: Performed By: #### L 100.0100, L500.4050 ####[facility] [address] [place], [address] CO2 [Moles/Vol] 25.3 mmol/L Normal 21.0-32.0 [facility] Comment on above: Performed By: #### L 100.0100, L500.4050 ####[facility] [address] [place], [address] Creatinine [Mass/Vol] 0.86 mg/dL Normal 0.70-1.20 [facility] Comment on above: Performed By: #### L 100.0100, L500.4050 ####[facility] [address] [place], [address] GAP 12 Normal 5-15 [facility] Comment on above: Performed By: #### L 100.0100, L500.4050 ####[facility] [address] [place], [address] GFR/1.73 sq M.predicted among non-blacks MDRD (S/P/Bld) [Vol rate/Area] 72 mL/min/{1.73_m2} Normal >60 [facility] Comment on above: Result Comment: mL/m in/1.73m2 CKD-EPI Creatinine Equation (2020) Performed By: #### L 100.0100, L500.4050 ####[facility] [address] [place], [address] Globulin (S) [Mass/Vol] 3.6 g/dL Normal 2.2-4.2 [facility] Comment on above: Performed By: #### L 100.0100, L500.4050 ####[facility] [address] [place], [address] Glucose [Mass/Vol] 143 mg/dL High 70-99 [facility] Comment on above: Performed By: #### L 100.0100, L500.4050 ####[facility] [address] [place], [address] Potassium [Moles/Vol] 3.9 mmol/L Normal 3.3-5.1 [facility] Comment on above: Performed By: #### L 100.0100, L500.4050 ####[facility] [address] [place], [address] Sodium [Moles/Vol] 138 mmol/L Normal 133-145 [facility] Comment on above: Performed By: #### L 100.0100, L500.4050 ####[facility] [address] [place], [address] T PROT 7.5 g/dL Normal 5.9-8.4 [facility] Comment on above: Performed By: #### L 100.0100, L500.4050 ####[facility] [address] [place], [address] Urea nitrogen [Mass/Vol] 18 mg/dL Normal 4-19 [facility] Comment on above: Performed By: #### L 100.0100, L500.4050 ####[facility] [address] [place], [address] Eosinophil percentageOrdered By: Rachel Johnson on 12-10-2024 Eosinophils/100 WBC (Bld) 3.4 % 0-5 [facility] Erythrocyte distribution wid th ratioOrdered By: Rachel Johnson on 12-10-2024 Erythrocyte distribution width (RBC) [Ratio] 13.9 % 11.6-14.6 [facility] Erythrocyte distribution wid th standard deviationOrdered By: Rachel Johnson on 12-10-2024 Erythrocyte distribution width (RBC) [Ratio] 45.8 fl High 35.1-43.9 [facility] Glomerular filtration rate ( GFR) estimation/1.73 sq m using serum, plasma, or whole bOrdered By: Rachel Johnson on 12-10-2024 GFR/1.73 sq M.predicted among non-blacks MDRD (S/P/Bld) [Vol rate/Area] 72 mL/min/{1.73_m2} >60 [facility] Comment on above: mL/min/1.73m2 CKD-EP I Creatinine Equation (2020) Hematocrit Auto (Bld) [Volum e fraction]Ordered By: Rachel Johnson on 12-10-2024 Hematocrit (Bld) [Volume fraction] 36.1 % Low 37-47 [facility] Hemoglobin measurementOrdere d By: Rachel Johnson on 12-10-2024 Hemoglobin (Bld) [Mass/Vol] 12.3 g/dL 12.0-15.0 [facility] Immature granulocytes/100 WB C Auto (Bld)Ordered By: Rachel Johnson 12-10-2024 Immature granulocytes/100 WBC (Bld) 0.700 % 0.0-0.9 [facility] Comment on above: IG% - Immature Granu locytes (promyelocytes, myelocytes and metamyelocytes) > 1% indicates that a LEFT SHIFT is Present. Laboratory - Chemistry and C hemistry - challengeOrdered By: Rachel Johnson on 12-10-2024 AST [Catalytic activity/Vol] 16 U/L <32 [facility] MCV (mean corpuscular volume ) determinationOrdered By: Rachel Johnson on 12-10-2024 MCV (RBC) [Entitic vol] 91.9 fL 81-99 [facility] Mean corpuscular hemoglobin (MCH) determinationOrdered By: Rachel Johnson on 12-10-2024 MCH (RBC) [Entitic mass] 31.3 pg 27.0-32.0 [facility] Mean corpuscular hemoglobin concentration (MCHC) determinationOrdered By: Rachel Johnson on 12-10-2024 MCHC (RBC) [Mass/Vol] 34.1 g/dL 32-36 [facility] Mean platelet volume determi nationOrdered By: Rachel Johnson on 12-10-2024 Platelet mean volume (Bld) [Entitic vol] 9.6 fL 6.2-12.0 [facility] Monocyte percentageOrdered B y: Rachel Johnson on 12-10-2024 Monocytes/100 WBC (Bld) 7.5 % 0-10 [facility] Neutrophil percentageOrdered By: Rachel Johnson on 12-10-2024 Neutrophils/100 WBC (Bld) 69.9 % 47-70 [facility] Nucleated red blood cell per centageOrdered By: Rachel Johnson on 12-10-2024 Nucleated RBC/100 WBC (Bld) [Ratio] 0 % 0-5 [facility] Platelet countOrdered By: Home Johnson on 12-10-2024 Platelets (Bld) [#/Vol] 232 10*3/uL 150-450 [facility] Potassium measurement (mass/ volume)Ordered By: Rachel Johnson on 12-10-2024 Potassium (Unsp spec) [Mass/Vol] 3.9 mmol/L 3.3-5.1 [facility] RBC Auto (Bld) [#/Vol]Ordere d By: Rachel Johnson on 12-10-2024 RBC (Bld) [#/Vol] 3.93 10*6/uL Low 4.2-5.4 [facility] Serum creatinine measurement (mass/volume)Ordered By: Rachel Johnson on 12-10-2024 Creatinine [Mass/Vol] 0.86 mg/dL 0.70-1.20 [facility] Serum globulin measurementOr dered By: Rachel Johnson on 12-10-2024 Globulin (S) [Mass/Vol] 3.6 g/dL 2.2-4.2 [facility] Serum glucose measurement (m ass/volume)Ordered By: Rachel Johnson on 12-10-2024 Glucose [Mass/Vol] 143 mg/dL High 70-99 [facility] Serum or plasma alanine henson otransferase (ALT) measurementOrdered By: Rachel Johnson on 12-10-2024 ALT [Catalytic activity/Vol] 12 U/L <35 [facility] Serum or plasma albumin juan urement (mass/volume)Ordered By: Rachel Johnson on 12-10-2024 Albumin [Mass/Vol] 4.0 g/dL 3.4-4.8 [facility] Serum or plasma albumin/glob ulin mass ratioOrdered By: Rachel Johnson on 12-10-2024 Albumin/Globulin [Mass ratio] 1.1 {ratio} 0.9-2.4 [facility] Serum or plasma alkaline ronnie sphatase measurementOrdered By: Rachel Johnson on 12-10-2024 ALP [Catalytic activity/Vol] 51 U/L 35-104 [facility] Serum or plasma calcium juan urement (mass/volume)Ordered By: Rachel Johnson on 12-10-2024 Calcium [Mass/Vol] 9.7 mg/dL 7.6-11.0 [facility] Serum or plasma urea nitroge n measurement (mass/volume)Ordered By: Rachel Johnson on 12-10-2024 Urea nitrogen [Mass/Vol] 18 mg/dL 4-19 [facility] Sodium levelOrdered By: Joan Johnson on 12-10-2024 Sodium [Moles/Vol] 138 mmol/L 133-145 [facility] Total proteinOrdered By: Gurjit Johnson on 12-10-2024 Protein [Mass/Vol] 7.5 g/dL 5.9-8.4 [facility] White blood cell (WBC) count Ordered By: Rachel Johnson on 12-10-2024 WBC (Bld) [#/Vol] 9.1 10*3/uL 4.4-11.0 [facility] DBT Breast - right diagnosti c for implanton 11-28-2024 IMPRESSION: There is no mammographic evidence of malignancy in the right breast. Return to annual screening mammogram is recommended. Annual mammogram will be due in 11 months. BI-RADS Category 1: Negative RISK: Due to the reported patient's history, the patient's estimated lifetime risk of developing breast cancer cannot be assessed at this time. We encourage all patients to talk with their providers about their risk assessment, further recommendations for managing breast health, and appropriate supplemental screening options if the patient has dense breast tissue. Interpreting Radiologist: Toby Romano M.D. Electronically signed on: 11/28/2024 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AIDE Transcribe Date/Time: Nov 28 2024 1:02P Dictated by: TOBY ROMANO MD This examination was interpreted and the report reviewed and electronically signed by: TOBY ROMANO MD on Nov 28 2024 1:23PM [facility] DIVISION OF RADIOLOGY * * *Final Report* * * DATE OF EXAM: Nov 28 2024 1:17PM [facility] 0629 - JACQUELYN RINA ROCA RT / PROCEDURE REASON: Abnormal mammogram * * * * Physician Interpretation * * * * RESULT: [place] [address] #[id number] - JACQUELYN RINA ROCA RT HISTORY: 74 year-old patient seen for diagnostic evaluation of the finding(s) described on prior mammogram in the right breast. The patient has the following personal history of breast cancer: breast cancer in the left breast at age 34. The patient has a family history of breast cancer. COMPARISON STUDIES: The present examination has been compared to prior imaging studies dated 06/09/2021 (mammogram), 07/21/2021 (mammogram), 10/04/2022 (mammogram), 10/05/2023 (mammogram) and 10/08/2024 (mammogram). MAMMOGRAM TECHNIQUE: The study was acquired using full field digital technology and interpreted from soft copy. Digital Breast Tomosynthesis (DBT) images were obtained and used to assist in the interpretation of this examination. MAMMOGRAM FINDINGS: The breast is heterogeneously dense, which may obscure small masses. No suspicious masses, calcifications or other abnormalities are seen in the right breast. There are no significant interval changes. DIVISION OF RADIOLOGY Provider, [facility] - 11/28/2024 * * *Final Report* * * DATE OF EXAM: Nov 28 2024 1:17PM [facility] 0629 - JACQUELYN RINA Wright CHANELLE RT / PROCEDURE REASON: Abnormal mammogram * * * * Physician Interpretation * * * * RESULT: [place] [address] #[id number] - JACQUELYN RINA W CHANELLE RT HISTORY: 74 year-old patient seen for diagnostic evaluation of the finding(s) described on prior mammogram in the right breast. The patient has the following personal history of breast cancer: breast cancer in the left breast at age 34. The patient has a family history of breast cancer. COMPARISON STUDIES: The present examination has been compared to prior imaging studies dated 06/09/2021 (mammogram), 07/21/2021 (mammogram), 10/04/2022 (mammogram), 10/05/2023 (mammogram) and 10/08/2024 (mammogram). MAMMOGRAM TECHNIQUE: The study was acquired using full field digital technology and interpreted from soft copy. Digital Breast Tomosynthesis (DBT) images were obtained and used to assist in the interpretation of this examination. MAMMOGRAM FINDINGS: The breast is heterogeneously dense, which may obscure small masses. No suspicious masses, calcifications or other abnormalities are seen in the right breast. There are no significant interval changes. IMPRESSION IMPRESSION: There is no mammographic evidence of malignancy in the right breast. Return to annual screening mammogram is recommended. Annual mammogram will be due in 11 months. BI-RADS Category 1: Negative RISK: Due to the reported patient's history, the patient's estimated lifetime risk of developing breast cancer cannot be assessed at this time. We encourage all patients to talk with their providers about their risk assessment, further recommendations for managing breast health, and appropriate supplemental screening options if the patient has dense breast tissue. Interpreting Radiologist: Toby Romano M.D. Electronically signed on: 11/28/2024 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AIDE Transcribe Date/Time: Nov 28 2024 1:02P Dictated by: TOBY ROMANO MD This examination was interpreted and the report reviewed and electronically signed by: TOBY ROMANO MD on Nov 28 2024 1:23PM EST [facility] Radiology Study observation (narrative) Philippe greer [facility] DBT Breast - right diagnosti c for implantOrdered By: [facility] Provider on 11-28-2024 [facility] JACQUELYN DIAG W CHANELLE RTon 025 JACQUELYN DIAG W CHANELLE RT * * *Final Report* * * DATE OF EXAM: Nov 28 2024 1:17PM [facility] 0629 - JACQUELYN DIAG W CHANELLE RT / PROCEDURE REASON: Abnormal mammogram * * * * Physician Interpretation * * * * RESULT: [place] [address] #[id number] - JACQUELYN DIAG W CHANELLE RT HISTORY: 74 year-old patient seen for diagnostic evaluation of the finding(s) described on prior mammogram in the right breast. The patient has the following personal history of breast cancer: breast cancer in the left breast at age 34. The patient has a family history of breast cancer. COMPARISON STUDIES: The present examination has been compared to prior imaging studies dated 06/09/2021 (mammogram), 07/21/2021 (mammogram), 10/04/2022 (mammogram), 10/05/2023 (mammogram) and 10/08/2024 (mammogram). MAMMOGRAM TECHNIQUE: The study was acquired using full field digital technology and interpreted from soft copy. Digital Breast Tomosynthesis (DBT) images were obtained and used to assist in the interpretation of this examination. MAMMOGRAM FINDINGS: The breast is heterogeneously dense, which may obscure small masses. No suspicious masses, calcifications or other abnormalities are seen in the right breast. There are no significant interval changes. IMPRESSION: There is no mammographic evidence of malignancy in the right breast. Return to annual screening mammogram is recommended. Annual mammogram will be due in 11 months. BI-RADS Category 1: Negative RISK: Due to the reported patient's history, the patient's estimated lifetime risk of developing breast cancer cannot be assessed at this time. We encourage all patients to talk with their providers about their risk assessment, further recommendations for managing breast health, and appropriate supplemental screening options if the patient has dense breast tissue. Interpreting Radiologist: Toby Romano M.D. Electronically signed on: 11/28/2024 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AIDE Transcribe Date/Time: Nov 28 2024 1:02P Dictated by: TOBY ROMANO MD This examination was interpreted and the report reviewed and electronically signed by: TOBY ROMANO MD on Nov 28 2024 1:23PM EST [id number] Normal [facility] Telephone (PULMWS) MANISHA KEITH ([id number]) 1950 F Date Time Provider Department 10/19/24 YUNIER OWEN PULMWS During your visit today, we recorded the following information about you: Yunier Owen MD 10/19/2024 4:22 PM Signed Spoke to patient regarding official result of her chest CT. The new nodule is 6.7 mm with surrounding groundglass and is too small for PET scan or biopsy. She will need an interim follow-up CT. Allergies As of Date: 10/19/2024 Noted Allergy Reaction JESENIA INHIBITORS 03/27/2014 3 - Cough NSAIDS (NON-STEROIDAL ANTI-INFLAM*05/09/2009 8 - GI Upset TAPE (ADHESIVE TAPE (ROSINS)) 10/26/2016 14 - Other: See Comments Comments: Blisters from surgical tape TRULICITY (DULAGLUTIDE) 05/04/2021 14 - Other: See Comments Comments: Gastroparesis Date Reviewed: 10/12/2024 Reviewed by: Mariia Mart LPN - Fully Assessed Reason for Visit: Results [95] Primary Visit Diagnosis:Lung nodules [R91.8] Order(s):CT CHEST WO IVCON [[id number]] Order #: [id number] FUTURE Prescriptions as of 10/19/2024 - Blood-Glucose Sensor (FREESTYLE MIZTI 3 SENSOR) krystyna Use as directed - erythromycin (ROMYCIN) 5 mg/gram (0.5 %) ophthalmic ointment APPLY OINTMENT INTO EACH EYE NIGHTLY - pantoprazole DR (PROTONIX) 40 mg tablet Take 1 tablet by mouth once daily. - triamcinolone acetonide (KENALOG) 0.1 % cream Apply 1 application to affected area two times a day. Apply to affected area. Location: legs - gabapentin (NEURONTIN) 300 mg capsule Take 1 capsule by mouth daily at bedtime. - atorvastatin (LIPITOR) 20 mg tablet Take 1 tablet by mouth daily at bedtime. For cholesterol. - fluticasone (FLONASE) 50 mcg/actuation nasal spray USE 1 SPRAY IN EACH NOSTRIL ONCE DAILY AT BEDTIME DIRECTED - metoprolol succinate ER (TOPROL XL) 100 mg Take 1 tablet by mouth once daily. - oxybutynin ER (DITROPAN XL) 10 mg 24 hr tablet Take 2 tablets by mouth once daily. - ammonium lactate (LAC-HYDRIN) 12 % lotion Apply to affected area as needed. - albuterol HFA (PROVENTIL HFA, VENTOLIN HFA) 90 mcg/actuation inhaler Inhale 2 Puffs as instructed every 4 hours as needed for wheezing/shortness of breath. - fluticasone-salmeterol (ADVAIR, WIXELA) 250-50 mcg/dose inhaler Inhale 1 Puff as instructed two times a day. - Omeprazole 20 mg TbEC Take by mouth. - aspirin, enteric coated (ASPIRIN, ENTERIC COATED) 81 mg EC tablet Take 81 mg by mouth once daily. - verapamil SR (CALAN SR) 120 mg CR tablet Take 1 tablet by mouth daily at bedtime. - HUMULIN R U-500, CONC, KWIKPEN 500 unit/mL (3 mL) inpn 40 units 12pm /10 units sq at 5pm/ 25 units at 10pm. Per Dr. Chi. - CPAP/BIPAP/OTHER Type .CPAPSettings into a note to see current settings/supplies/DME information. - losartan (COZAAR) 100 mg tablet Take 1 tablet by mouth once daily. - escitalopram oxalate (LEXAPRO) 10 mg tablet Take 1 tablet by mouth once daily. - FOLDING WALKER WITH 5 WHEELS Use with ambulation - blood sugar diagnostic (BLOOD GLUCOSE TEST) test strip Test blood sugar(s) 3 times daily. Dx: Type 2 DM - Uncontrolled E11.65 Insulin: Yes - Lancets Test blood sugar(s) 3 times daily. Dx: Type 2 DM - Controlled E11.9 Insulin: Yes - cetirizine (ZYRTEC) 10 mg tablet Take 1 tablet by mouth once daily. - hydroCHLOROthiazide 12.5 mg capsule Take 1 capsule by mouth once daily. - FOLIC ACID ORAL Take by mouth. - methotrexate 2.5 mg tablet Take 20 mg by mouth every Tuesday. - melatonin 3 mg tablet Take 1 tablet at 9PM nightly. - insulin needles, DISPOSABLE, (PEN NEEDLE) 31 gauge x 5/16 Use one needle per dose. 4 per day. - ondansetron orally disintegrating (ZOFRAN ODT) 4 mg disintegrating tablet DISSOLVE 1 TABLET IN MOUTH THREE TIMES DAILY NEEDED FOR NAUSEA AND VOMITING - blood sugar diagnostic (ONETOUCH VERIO TEST STRIPS) test strip Test blood sugar(s) 3-4 times daily. Dx: Other DM Code E11.319 Insulin: Yes - Cholecalciferol, Vitamin D3, 50 mcg (2,000 unit) cap Take 1 capsule by mouth once daily. - Blood-Glucose Meter monitoring kit Glucose Meter of Choice - Kit - Dx: Type 2 DM - Controlled E11.9 - COMPOUNDED PRESCRIPTION Insulin needles-1/2 cc for 100 u Use up to 4 a day - fluorometholone (FML LIQUID FILM) 0.1 % ophthalmic suspension Use 2 Drops in the left eye twice daily. Meds Comments as of 02/06/2021: Pt states she no longer takes baby aspirin, skelaxin, to reclast, no prednisone, No MVI, 02/06/2021 TP Problem List As Of Date 10/19/2024 Noted Resolved BENIGN HYPERTENSION [I10] 05/28/2005 09/01/2007 Hyperlipidemia [E78.5] 05/28/2005 LOC PRIM OSTEOART-PELVIS [M16.10] 05/28/2005 06/04/2006 Allergic rhinitis [J30.9] 05/28/2005 Diabetes (HCC) [E11.9] 05/28/2005 06/27/2015 Unspecified sleep apnea [G47.30] 05/28/2005 12/07/2013 Osteoarthritis [M19.90] 05/28/2005 Irritable bowel syndrome [K58.9] 06/04/2006 (more content not included)... Normal [facility] Telephone (PULMWS) MANISHA KEITH ([id number]) 1950 F Date Time Provider Department 10/19/24 YUNIER OWENWS During your visit today, we recorded the following information about you: Lotus Philippe RN 10/19/2024 9:47 AM Signed Patient calling in asking about the results of her CT that was done 10/12/24. Lotus Philippe RN Allergies As of Date: 10/19/2024 Noted Allergy Reaction JESENIA INHIBITORS 03/27/2014 3 - Cough NSAIDS (NON-STEROIDAL ANTI-INFLAM*05/09/2009 8 - GI Upset TAPE (ADHESIVE TAPE (ROSINS)) 10/26/2016 14 - Other: See Comments Comments: Blisters from surgical tape TRULICITY (DULAGLUTIDE) 05/04/2021 14 - Other: See Comments Comments: Gastroparesis Date Reviewed: 10/12/2024 Reviewed by: Mariia Mart LPN - Fully Assessed Reason for Visit: Results [95] Prescriptions as of 10/19/2024 - Blood-Glucose Sensor (FREESTYLE MITZI 3 SENSOR) krystyna Use as directed - erythromycin (ROMYCIN) 5 mg/gram (0.5 %) ophthalmic ointment APPLY OINTMENT INTO EACH EYE NIGHTLY - pantoprazole DR (PROTONIX) 40 mg tablet Take 1 tablet by mouth once daily. - triamcinolone acetonide (KENALOG) 0.1 % cream Apply 1 application to affected area two times a day. Apply to affected area. Location: legs - gabapentin (NEURONTIN) 300 mg capsule Take 1 capsule by mouth daily at bedtime. - atorvastatin (LIPITOR) 20 mg tablet Take 1 tablet by mouth daily at bedtime. For cholesterol. - fluticasone (FLONASE) 50 mcg/actuation nasal spray USE 1 SPRAY IN EACH NOSTRIL ONCE DAILY AT BEDTIME DIRECTED - metoprolol succinate ER (TOPROL XL) 100 mg Take 1 tablet by mouth once daily. - oxybutynin ER (DITROPAN XL) 10 mg 24 hr tablet Take 2 tablets by mouth once daily. - ammonium lactate (LAC-HYDRIN) 12 % lotion Apply to affected area as needed. - albuterol HFA (PROVENTIL HFA, VENTOLIN HFA) 90 mcg/actuation inhaler Inhale 2 Puffs as instructed every 4 hours as needed for wheezing/shortness of breath. - fluticasone-salmeterol (ADVAIR, WIXELA) 250-50 mcg/dose inhaler Inhale 1 Puff as instructed two times a day. - Omeprazole 20 mg TbEC Take by mouth. - aspirin, enteric coated (ASPIRIN, ENTERIC COATED) 81 mg EC tablet Take 81 mg by mouth once daily. - verapamil SR (CALAN SR) 120 mg CR tablet Take 1 tablet by mouth daily at bedtime. - HUMULIN R U-500, CONC, KWIKPEN 500 unit/mL (3 mL) inpn 40 units 12pm /10 units sq at 5pm/ 25 units at 10pm. Per Dr. Chi. - CPAP/BIPAP/OTHER Type .CPAPSettings into a note to see current settings/supplies/DME information. - losartan (COZAAR) 100 mg tablet Take 1 tablet by mouth once daily. - escitalopram oxalate (LEXAPRO) 10 mg tablet Take 1 tablet by mouth once daily. - FOLDING WALKER WITH 5 WHEELS Use with ambulation - blood sugar diagnostic (BLOOD GLUCOSE TEST) test strip Test blood sugar(s) 3 times daily. Dx: Type 2 DM - Uncontrolled E11.65 Insulin: Yes - Lancets Test blood sugar(s) 3 times daily. Dx: Type 2 DM - Controlled E11.9 Insulin: Yes - cetirizine (ZYRTEC) 10 mg tablet Take 1 tablet by mouth once daily. - hydroCHLOROthiazide 12.5 mg capsule Take 1 capsule by mouth once daily. - FOLIC ACID ORAL Take by mouth. - methotrexate 2.5 mg tablet Take 20 mg by mouth every Tuesday. - melatonin 3 mg tablet Take 1 tablet at 9PM nightly. - insulin needles, DISPOSABLE, (PEN NEEDLE) 31 gauge x 5/16 Use one needle per dose. 4 per day. - ondansetron orally disintegrating (ZOFRAN ODT) 4 mg disintegrating tablet DISSOLVE 1 TABLET IN MOUTH THREE TIMES DAILY NEEDED FOR NAUSEA AND VOMITING - blood sugar diagnostic (ONETOUCH VERIO TEST STRIPS) test strip Test blood sugar(s) 3-4 times daily. Dx: Other DM Code E11.319 Insulin: Yes - Cholecalciferol, Vitamin D3, 50 mcg (2,000 unit) cap Take 1 capsule by mouth once daily. - Blood-Glucose Meter monitoring kit Glucose Meter of Choice - Kit - Dx: Type 2 DM - Controlled E11.9 - COMPOUNDED PRESCRIPTION Insulin needles-1/2 cc for 100 u Use up to 4 a day - fluorometholone (FML LIQUID FILM) 0.1 % ophthalmic suspension Use 2 Drops in the left eye twice daily. Meds Comments as of 02/06/2021: Pt states she no longer takes baby aspirin, skelaxin, to reclast, no prednisone, No MVI, 02/06/2021 TP Problem List As Of Date 10/19/2024 Noted Resolved BENIGN HYPERTENSION [I10] 05/28/2005 09/01/2007 Hyperlipidemia [E78.5] 05/28/2005 LOC PRIM OSTEOART-PELVIS [M16.10] 05/28/2005 06/04/2006 Allergic rhinitis [J30.9] 05/28/2005 Diabetes (HCC) [E11.9] 05/28/2005 06/27/2015 Unspecified sleep apnea [G47.30] 05/28/2005 12/07/2013 Osteoarthritis [M19.90] 05/28/2005 Irritable bowel syndrome [K58.9] 06/04/2006 11/25/2016 Dysuria [R30.0] 01/02/2007 05/25/2016 Unspecified sinusitis (chronic) [J32.9] 06/01/2007 05/25/2016 Other specified disorder of bladder [596.8] 06/20/2007 11/25/2016 ASYMPTOMATIC VARICOSE VEINS [I83 (more content not included)... Normal [facility] Jay 10-17-2024 CNPN Telephone (FAMPWS) MANISHA KEITH ([id number]) 1950 F Date Time Provider Department 10/17/24 ILIR HERNÁNDEZ During your visit today, we recorded the following information about you: Ilir Hernández MD 10/17/2024 8:35 AM Signed Urine shows just some surface contamination so far. Waiting on the final culture. Not a definite uti. Her ct scan shows several nodules. Any cough or fever? Needs to see pulmonary My Fonseca MA 10/17/2024 9:44 AM Signed Patient informed and verbalized understanding. Does have a cough off and on. Refers to having a lot of mucus in the morning but once she coughs it up she's ok. She does already see Dr. Owen in Pulmonary. Transferred to scheduling for appointment. My Fonseca MA Allergies As of Date: 10/17/2024 Noted Allergy Reaction JESENIA INHIBITORS 03/27/2014 3 - Cough NSAIDS (NON-STEROIDAL ANTI-INFLAM*05/09/2009 8 - GI Upset TAPE (ADHESIVE TAPE (ROSINS)) 10/26/2016 14 - Other: See Comments Comments: Blisters from surgical tape TRULICITY (DULAGLUTIDE) 05/04/2021 14 - Other: See Comments Comments: Gastroparesis Date Reviewed: 10/12/2024 Reviewed by: Mariia Mart LPN - Fully Assessed Reason for Visit: Results [95] Primary Visit Diagnosis:Lung nodules [R91.8] Order(s):CONSULT TO PULMONARY MEDICINE [[id number]] Order #: [id number]: 1 Prescriptions as of 10/17/2024 - Blood-Glucose Sensor (FREESTYLE MITZI 3 SENSOR) krystyna Use as directed - erythromycin (ROMYCIN) 5 mg/gram (0.5 %) ophthalmic ointment APPLY OINTMENT INTO EACH EYE NIGHTLY - pantoprazole DR (PROTONIX) 40 mg tablet Take 1 tablet by mouth once daily. - triamcinolone acetonide (KENALOG) 0.1 % cream Apply 1 application to affected area two times a day. Apply to affected area. Location: legs - gabapentin (NEURONTIN) 300 mg capsule Take 1 capsule by mouth daily at bedtime. - atorvastatin (LIPITOR) 20 mg tablet Take 1 tablet by mouth daily at bedtime. For cholesterol. - fluticasone (FLONASE) 50 mcg/actuation nasal spray USE 1 SPRAY IN EACH NOSTRIL ONCE DAILY AT BEDTIME DIRECTED - metoprolol succinate ER (TOPROL XL) 100 mg Take 1 tablet by mouth once daily. - oxybutynin ER (DITROPAN XL) 10 mg 24 hr tablet Take 2 tablets by mouth once daily. - ammonium lactate (LAC-HYDRIN) 12 % lotion Apply to affected area as needed. - albuterol HFA (PROVENTIL HFA, VENTOLIN HFA) 90 mcg/actuation inhaler Inhale 2 Puffs as instructed every 4 hours as needed for wheezing/shortness of breath. - fluticasone-salmeterol (ADVAIR, WIXELA) 250-50 mcg/dose inhaler Inhale 1 Puff as instructed two times a day. - Omeprazole 20 mg TbEC Take by mouth. - aspirin, enteric coated (ASPIRIN, ENTERIC COATED) 81 mg EC tablet Take 81 mg by mouth once daily. - verapamil SR (CALAN SR) 120 mg CR tablet Take 1 tablet by mouth daily at bedtime. - HUMULIN R U-500, CONC, KWIKPEN 500 unit/mL (3 mL) inpn 40 units 12pm /10 units sq at 5pm/ 25 units at 10pm. Per Dr. Chi. - CPAP/BIPAP/OTHER Type .CPAPSettings into a note to see current settings/supplies/DME information. - losartan (COZAAR) 100 mg tablet Take 1 tablet by mouth once daily. - escitalopram oxalate (LEXAPRO) 10 mg tablet Take 1 tablet by mouth once daily. - FOLDING WALKER WITH 5 WHEELS Use with ambulation - blood sugar diagnostic (BLOOD GLUCOSE TEST) test strip Test blood sugar(s) 3 times daily. Dx: Type 2 DM - Uncontrolled E11.65 Insulin: Yes - Lancets Test blood sugar(s) 3 times daily. Dx: Type 2 DM - Controlled E11.9 Insulin: Yes - cetirizine (ZYRTEC) 10 mg tablet Take 1 tablet by mouth once daily. - hydroCHLOROthiazide 12.5 mg capsule Take 1 capsule by mouth once daily. - FOLIC ACID ORAL Take by mouth. - methotrexate 2.5 mg tablet Take 20 mg by mouth every Tuesday. - melatonin 3 mg tablet Take 1 tablet at 9PM nightly. - insulin needles, DISPOSABLE, (PEN NEEDLE) 31 gauge x 5/16 Use one needle per dose. 4 per day. - ondansetron orally disintegrating (ZOFRAN ODT) 4 mg disintegrating tablet DISSOLVE 1 TABLET IN MOUTH THREE TIMES DAILY NEEDED FOR NAUSEA AND VOMITING - blood sugar diagnostic ([place] PurificationTOUCH VERIO TEST STRIPS) test strip Test blood sugar(s) 3-4 times daily. Dx: Other DM Code E11.319 Insulin: Yes - Cholecalciferol, Vitamin D3, 50 mcg (2,000 unit) cap Take 1 capsule by mouth once daily. - Blood-Glucose Meter monitoring kit Glucose Meter of Choice - Kit - Dx: Type 2 DM - Controlled E11.9 - COMPOUNDED PRESCRIPTION Insulin needles-1/2 cc for 100 u Use up to 4 a day - fluorometholone (FML LIQUID FILM) 0.1 % ophthalmic suspension Use 2 Drops in the left eye twice daily. Meds Comments as of 02/06/2021: Pt states she no longer takes baby aspirin, skelaxin, to reclast, no prednisone, No MVI, 02/06/2021 TP Problem List As Of Date 10/17/2024 Noted Resolved BENIGN HYPERTENSION [I10] 05/28/2005 09/01/2007 Hyper (more content not included)... Normal [facility] Bacteria Ur Culton 5 Bacteria identified Cx Nom (U) ORGANISM ID: 1 10,000 -<50,000 CFU/ml Normal urogenital john Normal [facility] Comment on above: Performed By: #### 6 30-4 ####[facility] LABCLIA [id number] [place] [address] [place] TSH SerPl-aCncon 10-16-2024 TSH Qn 3.290 m[IU]/L Normal 0.270-4.200 [facility] Comment on above: Order Comment: Speci men Type: BLOOD SPECIMENOrdering Facility: [facility] Address: [address] [place] [address] [place] [address] Performed By: #### 3 016-3 ####[facility] LABORATORYCLIA [id number] [place] [address] [place] Urinalysis complete panel (U )on 10-16-2024 BACTERIA UL 1415.7 uL High Negative [facility] Comment on above: Order Comment: Speci men Type: URINE SPECIMENOrdering Facility: [facility] Address: [address] [place] [address] Performed By: #### 2 4356-8 ####[facility] LABCLIA [id number] [place] [address] [place] Bilirubin Ql (U) Negative Normal Negative [facility] Comment on above: Order Comment: Speci men Type: URINE SPECIMENOrdering Facility: [facility] Address: [address] [place] [address] Performed By: #### 2 4356-8 ####[facility] LABCLIA [id number] [place] [address] [place] Clarity (Unsp spec) Clear Normal Clear [facility] Comment on above: Order Comment: Speci men Type: URINE SPECIMENOrdering Facility: [facility] Address: [address] [place] [address] Performed By: #### 2 4356-8 ####[facility] LABCLIA [id number] [place] [address] [place] Color (U) Yellow Normal Yellow [facility] Comment on above: Order Comment: Speci men Type: URINE SPECIMENOrdering Facility: [facility] Address: [address] [place] [address] Performed By: #### 2 4356-8 ####[facility] LABCLIA [id number] [place] [address] [place] Epithelial cells LM.HPF (Urine sed) [#/Area] Moderate Normal [facility] Comment on above: Order Comment: Speci men Type: URINE SPECIMENOrdering Facility: [facility] Address: [address] [place] [address] Performed By: #### 2 4356-8 ####[facility] LABCLIA [id number] [address], [place] [address] [place] Glucose Test strip (U) [Mass/Vol] Trace Abnormal Negative [facility] Comment on above: Order Comment: Speci men Type: URINE SPECIMENOrdering Facility: [facility] Address: [address] [place] [address] Performed By: #### 2 4356-8 ####[facility] LABCLIA [id number] [address], [place] [address] [place] Hemoglobin Ql (U) Negative Normal Negative [facility] Comment on above: Order Comment: Speci men Type: URINE SPECIMENOrdering Facility: [facility] Address: [address] [place] [address] Performed By: #### 2 4356-8 ####[facility] LABCLIA [id number] [address], [place] [address] [place] Hyaline casts (Urine sed) [#/Area] 1-3 /LPF Abnormal 0 /LPF [facility] Comment on above: Order Comment: Speci men Type: URINE SPECIMENOrdering Facility: [facility] Address: [address] [place] [address] Performed By: #### 2 4356-8 ####[facility] LABCLIA [id number] [place] [id number] [place] Ketones Ql (U) Negative Normal Negative [facility] Comment on above: Order Comment: Speci men Type: URINE SPECIMENOrdering Facility: [facility] Address: [address] [place] [address] Performed By: #### 2 4356-8 ####[facility] LABCLIA [id number] [address], [facility] [place] Leukocyte esterase Test strip Ql (U) Negative Normal Negative [facility] Comment on above: Order Comment: Speci men Type: URINE SPECIMENOrdering Facility: [facility] Address: [address] [place] [address] Performed By: #### 2 4356-8 ####[facility] LABCLIA [id number] [place] [address] [place] Nitrite Ql (U) Negative Normal Negative [facility] Comment on above: Order Comment: Speci men Type: URINE SPECIMENOrdering Facility: [facility] Address: [address] [place] [address] Performed By: #### 2 4356-8 ####[facility] LABCLIA [id number] [place] [address] [place] pH (U) 6.0 [pH] Normal <8.5 [facility] Comment on above: Order Comment: Speci men Type: URINE SPECIMENOrdering Facility: [facility] Address: [address] [place] [address] Performed By: #### 2 4356-8 ####[facility] LABCLIA [id number] [place] [address] [place] Protein (U) [Mass/Vol] Trace Abnormal Negative Cl [facility] Comment on above: Order Comment: Speci men Type: URINE SPECIMENOrdering Facility: [facility] Address: [address] [place] [address] Performed By: #### 2 4356-8 ####[facility] LABCLIA [id number] [place] [address] [place] RBC LM.HPF (Urine sed) [#/Area] 0-2 /HPF Normal 0-2 /HPF [facility] Comment on above: Order Comment: Speci men Type: URINE SPECIMENOrdering Facility: [facility] Address: [address] [place] [address] Performed By: #### 2 4356-8 ####[facility] LABCLIA [id number] [place] [address] [place] Specific gravity (U) [Rel density] 1.020 Normal 1.005-1.030 [facility] Comment on above: Order Comment: Speci men Type: URINE SPECIMENOrdering Facility: [facility] Address: [address] [place] [address] Performed By: #### 2 4356-8 ####[facility] LABIA [id number] [address] [place] Urobilinogen Ql (U) 0.2 EU/dL Normal 0.2-1.0 EU/dL [facility] Comment on above: Order Comment: Speci men Type: URINE SPECIMENOrdering Facility: [facility] Address: [address] [place] [address] Performed By: #### 2 4356-8 ####[facility] LABIA [id number] [place] [address] [place] WBC LM.HPF (Urine sed) [#/Area] 0-5 /HPF Normal 0-5 /HPF [facility] Comment on above: Order Comment: Speci men Type: URINE SPECIMENOrdering Facility: [facility] Address: [address] [place] [address] Performed By: #### 2 4356-8 ####[facility] LABIA [id number] [address] [place] CNOVon 10-12-2024 CNOV Office Visit (PULMWS ) MANISHA KEITH ([id number]) 1950 F Date Time Provider Department 10/12/24 2:15 PM YUNIER OWEN PULMWS During your visit today, we recorded the following information about you: Pulse Respiration Blood pressure Weight 84/minute 16/minute 138/70 88.5 kg Yunier Owen MD 10/12/2024 5:18 PM Signed . [facility] [place] Note Patient name: Manisha Keith PCP: Ilir Hernández MD CC: Follow-up chest CT HPI: Manisha Keith 74 year old female former 22 pack year smoker, quitting in 2000 with PMH significant for obesity, childhood asthma, allergies, HLD, inflammatory arthritis, RICARDO on CPAP, DM, HTN, GERD, lung nodule. She was previously seen in cough clinic with etiology believed to be multifactorial including possible asthma, GERD and UACS. Methacholine challenge testing officially negative but patient had 20% drop in FEV1 at last dose. Inhaled therapy supposed to consist of Trelegy Ellipta but she is unable to afford so she was not using any inhaled therapy. At [facility], sent in prescription for Breztri as this would be covered by her insurance and she qualified for assistance program. She never obtained the Breztri and apparently was prescribed Wixela by her primary care physician. She does not use her Wixela on a daily basis, only when I need it. She has chronic cough with some mucus production in the morning, mostly clear but occasionally some yellow. Occasional wheezes. No significant dyspnea. With regards to her lung nodule, she has a RUL groundglass nodule, seen by interventional pulmonary for possible navigational bronchoscopy who recommended surveillance. Her CT has showed stability of her groundglass right upper lobe nodule. She presents for follow up of her chest CT which was obtained today. The official reading is pending but to my review shows continued stability of her right upper lobe groundglass nodule but she has a new nodule in her left upper lobe. DATA: Imaging / Diagnostic Studies: 09/2023: Chest CT today: PAST MEDICAL HISTORY Diagnosis Date Allergic rhinitis, cause unspecified Arthritis Asthma Childhood asthma Breast cancer (HCC) age 34-had lump, cancerous cells. no issues since, left Diverticulosis of colon (without mention of hemorrhage) Ground glass opacity present on imaging of lung Heme positive stool 2011 History of cervical cancer regular Paps for life Hyperlipidemia 2011 Inflammatory polyarthritis (HCC) Dr. 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) Sleep apnea Not on CPAP Type II or unspecified type diabetes mellitus without mention of complication, not stated as uncontrolled Unspecified essential hypertension ALLERGIES Allergen Reactions Jesenia Inhibitors Cough Nsaids (Non-Steroid* GI Upset Tape [Adhesive Tape* Other: See Comments Blisters from surgical tape Trulicity [Dulaglut* Other: See Comments Gastroparesis Blood-Glucose Sensor (FREESTYLE MITZI 3 SENSOR) krystyna Use as directed erythromycin (ROMYCIN) 5 mg/gram (0.5 %) ophthalmic ointment APPLY OINTMENT INTO EACH EYE NIGHTLY pantoprazole DR (PROTONIX) 40 mg tablet Take 1 tablet by mouth once daily. triamcinolone acetonide (KENALOG) 0.1 % cream Apply 1 application to affected area two times a day. Apply to affected area. Location: legs gabapentin (NEURONTIN) 300 mg capsule Take 1 capsule by mouth daily at bedtime. atorvastatin (LIPITOR) 20 mg tablet Take 1 tablet by mouth daily at bedtime. For cholesterol. fluticasone (FLONASE) 50 mcg/actuation nasal spray USE 1 SPRAY IN EACH NOSTRIL ONCE DAILY AT BEDTIME DIRECTED metoprolol succinate ER (TOPROL XL) 100 mg Take 1 tablet by mouth once daily. oxybutynin ER (DITROPAN XL) 10 mg 24 hr tablet Take 2 tablets by mouth once daily. ammonium lactate (LAC-HYDRIN) 12 % lotion Apply to affected area as needed. albuterol HFA (PROVENTIL HFA, VENTOLIN HFA) 90 mcg/actuation inhaler Inhale 2 Puffs as instructed every 4 hours as needed for wheezing/shortness of breath. fluticasone-salmeterol (ADVAIR, WIXELA) 250-50 mcg/dose inhaler Inhale 1 Puff as instructed two times a day. Omeprazole 20 mg TbEC Take by mouth. aspirin, enteric coated (ASPIRIN, ENTERIC COATED) 81 mg EC tablet Take 81 mg by mouth once daily. verapamil SR (CALAN SR) 120 mg CR tablet Take 1 tablet by mouth daily at bedtime. (Patient not taking: Reported on 08/03/2024) HUMULIN R U-500, CONC, KWIKPEN 500 unit/mL (3 mL) inpn 40 units 12pm /10 units sq at 5pm/ 25 units at 10pm. Per Dr. Chi. CPAP/BIPAP/OTHER Type .CPAPSettings into a note to see current settings/supplies/ (more content not included)... Normal [facility] CT CHEST WO IVCONon 10-12-19 CT CHEST WO IVCON * * *Final Report* * * DATE OF EXAM: Oct 12 2024 1:20PM [facility] 0541 - CT CHEST WO IVCON / PROCEDURE REASON: Lung nodules * * * * Physician Interpretation * * * * EXAMINATION: CHEST CT WITHOUT CONTRAST CLINICAL HISTORY: Lung nodule follow-up Technique: Spiral CT acquisition of the chest from the thoracic inlet to the upper abdomen without contrast. MQ: [id number] CT Radiation dose: Integrated Dose-length product (DLP) for this visit = 389 mGy*cm CT Dose Reduction Employed: Automated exposure control(AEC) and iterative recon Comparison: 09/29/2023 RESULT: Limitations: None. Lines, tubes, and devices: None. Lung parenchyma and airways: There is a stable 10 x 9 mm subsolid nodule in the right lung apex, image 55. No significant change in the 5 mm left lower lobe pulmonary nodule as seen on image 193. 6.7 mm nodule in the posterior left upper lobe as measured on image 126, new since previous exam. There is surrounding groundglass attenuation. A couple of tiny right upper lobe pulmonary nodules are seen in the right upper lobe laterally measuring up to 5 mm in size. These also demonstrate surrounding groundglass attenuation. These are measured on image 160 of series 6. A few smaller right upper lobe pulmonary nodules are present. Pleural space: No pleural effusion. No pleural thickening. Lower neck, lymph nodes, and mediastinum: The imaged thyroid gland is normal. No lymphadenopathy in the supraclavicular, axillary, mediastinal, or hilar regions. Heart, pericardium, and thoracic vessels: The thoracic aorta and main pulmonary artery are normal in caliber. The cardiac chambers are normal in size. No coronary artery atherosclerotic calcifications are noted, although the study is not optimized for coronary assessment. No pericardial effusion or thickening. Bones and soft tissues: No destructive bone lesion. Chest wall is unremarkable. Upper abdomen: No abnormality in the imaged upper abdomen. Localizer images: No additional findings. IMPRESSION: 1. Interval development of several noncalcified pulmonary nodules, most numerous in the right upper lobe. The largest is in the left upper lobe measuring 6.7 mm in size. Most demonstrate surrounding groundglass attenuation and most suggestive of an infectious/inflammator y process. 2. A couple of stable pulmonary nodules, including a 10 x 9 mm subsolid nodule in the right lung apex. 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MOOKIE Transcribe Date/Time: Oct 16 2024 7:32P Dictated by : RODRIGO DAVIS MD This examination was interpreted and the report reviewed and electronically signed by: RODRIGO DAVIS MD on Oct 16 2024 7:37PM EST [id number] Normal [facility] Endocrinology Visit Reporton 10-08-2024 Endocrinology Visit Report [facility] [address] [place] [address] OFFICE VISIT Date of Service: 10/08/24 MR#: [id number] Acct: [id number] Name: MANISHA KEITH Enrique Rep #: [id number] : 1950 Provider: Usman Hartman Age/Sex: 74/F Location: [facility] [place] [place] Status: Signed Intake Vital Signs 08/20/24 14:56 10/03/24 14:55 10/08/24 15:00 Height 5 ft 2 in 5 ft 2 in 5 ft 2 in Weight: 198 lb 2 oz BMI 36.2 BP 136/77 H Blood Pressure Location Rt brachial Position Sitting Pulse 108 H Pulse Source Monitor Pulse Oximetry (%) 93 Oxygen Delivery Method room air Intake Visit Reasons: 6 M FU Chief Complaint: diabetes Is patient in pain?: No Allergies JESENIA Inhibitors Allergy (Intermediate, Verified 10/08/24 15:05) Cough adhesive tape Allergy (Intermediate, Verified 10/08/24 15:05) blisters [facility] Allergy (Intermediate, Verified 10/08/24 15:05) Gastroparesis Dressing: Non-Medicated (elastic) Allergy (Verified 10/08/24 15:05) Rash NSAIDS (Non-Steroidal Anti-Inflamma Allergy (Verified 10/08/24 15:05) Other Latex, Natural Rubber Adverse Reaction (Mild, Verified 10/08/24 15:05) RASH Medications ???Medication ???Instructions ???Recorded ???Confirmed ???Type fluticasone propionate 50 1 spray intranasal DAILY PRN NASAL 01/30/14 10/08/24 History mcg/actuation nasal CONGESTION spray,suspension methotrexate sodium 2.5 mg tablet 20 mg PO TEJADA BREAST CANCER 7 10/08/24 History escitalopram oxalate 10 mg tablet 10 mg PO DAILY PRN DEPRESSION 10/08/24 History (Lexapro) folic acid 1 mg tablet 2 mg PO DAILY SUPPLEMENT 06/05/21 10/08/24 History hydrochlorothiazide 12.5 mg capsule 12.5 mg PO DAILY BLOOD PRESSURE 06/05/21 10/08/24 History losartan 100 mg tablet 100 mg PO DAILY BLOOD PRESSURE 10/08/24 History aspirin 81 mg tablet,delayed 81 mg PO DAILY HEART HEALTH 10/08/24 History release (Adult Low Dose Aspirin) gabapentin 300 mg capsule 300 mg PO QHS NEUROPATHY 02/05/22 10/08/24 History oxybutynin chloride 10 mg 20 mg PO DAILY OVERACTIVE BLADDER 02/05/22 10/08/24 History tablet,extended release 24 hr metoprolol succinate 100 mg 100 mg PO DAILY BLOOD PRESSURE 10/08/24 History tablet,extended release 24 hr esomeprazole magnesium 40 mg 40 mg PO DAILY ACID REFLUX 3 10/08/24 History capsule,delayed release (Nexium) pen needle, diabetic 32 gauge x #100 ea 11/26/22 10/08/24 Rx (BD Ultra-Fine Tish Pen Needle) atorvastatin 20 mg tablet 20 mg PO DAILY CHOLESTEROL 3 10/08/24 History metaxalone 800 mg tablet 800 mg PO TID PRN MUSCLE CRAMPS 10/08/24 History blood sugar diagnostic (OneTouch #150 ea 11/15/23 10/08/24 Rx Verio test strips) insulin regular hum U-500 conc 500 See Rx Instructions subcut TIDCM 12/28/23 10/08/24 History unit/mL(3 mL) subcut pen (Humulin diabetes R U-500 (Conc) Insulin Kwikpen) amlodipine 5 mg tablet (Norvasc) 5 mg PO DAILY #30 tabs 04/06/24 Rx zoledronic acid 5 mg/100 mL in See Rx Instructions .Route ONCE 10/08/24 Rx mannitol 5 %-water intravenous #100 mL piggybck cholecalciferol (vitamin D3) 1,250 1,250 mcg PO QWEEK #12 caps 08/1610/08/24 Rx mcg (50,000 unit) capsule Have you fallen in the past year?: Yes [facility] Medical History Depression Ambulates with cane High cholesterol CPAP (continuous positive airway pressure) dependence Closed left hip fracture Osteoporosis Former smoker Sleep apnea Asthma COPD (chronic obstructive pulmonary disease) Essential hypertension History of gastrostomy tube placement Wears glasses Wears dentures History of Clostridium difficile infection Cancer Anxiety Easy bruising Injury of head and neck Restless legs Loss of consciousness Dietary restriction Shortness of breath on exertion Chronic cough History of stress test History of edema Leg cramps History of Holter monitoring Cardiology follow-up encounter History of vaginal delivery Urinary incontinence Internal hemorrhoids History of cervical cancer Diverticulosis Obesity Vision problems Pancreatitis Osteoarthritis Neuropathy IBS (irritable bowel syndrome) Recurrent infections Hives Calcium deficiency Gastrointestinal problem Gall stone Chronic bronchitis Carpal tunnel syndrome Cataract Breast cancer Breast lump UTI (urinary tract infection) Back problem Arthritis Seasonal allergies GERD (gastroesophageal reflux disease) OAB (overactive bladder) Rhabdomyolysis (04/2017) MSSA (methicillin susceptible Staphylococcus aureus) pneumonia Allergic rhinitis Diabetes mellitus, type (more content not included)... Normal [facility] SCREENINGon 10-08-2024 [facility] SCREENING * * *Final Report* * * DATE OF EXAM: Oct 08 2024 1:56PM [facility] 0581 - [facility] SCREENING / PROCEDURE REASON: Encounter for screening mammogram for malignant neoplasm of breast * * * * Physician Interpretation * * * * RESULT: [facility] [address] [place] [address] #[id number] - [facility] SCREENING HISTORY: 74 year-old patient seen for screening and is asymptomatic in both breasts. The patient has the following personal history of breast cancer: breast cancer in the left breast at age 34. COMPARISON STUDIES: The present examination has been compared to prior imaging studies dated 05/09/2020 (mammogram), 06/09/2021 (mammogram), 10/04/2022 (mammogram) and 10/05/2023 (mammogram). MAMMOGRAM TECHNIQUE: The study was acquired using full field digital technology and interpreted from soft copy. MAMMOGRAM FINDINGS: The breast is heterogeneously dense, which may obscure small masses. There is an asymmetry in the inferior right breast, middle depth. IMPRESSION: The asymmetry in the inferior right breast, middle depth requires additional evaluation. Diagnostic mammogram with possible ultrasound is recommended. BI-RADS Category 0: Incomplete: Needs Additional Imaging Evaluation RISK: Due to the reported patient's history, the patient's estimated lifetime risk of developing breast cancer cannot be assessed at this time. We encourage all patients to talk with their providers about their risk assessment, further recommendations for managing breast health, and appropriate supplemental screening options if the patient has dense breast tissue. Interpreting Radiologist: Mariia Contreras M.D. Electronically signed on: 10/09/2024 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AIDE Sharperibe Date/Time: Oct 08 2024 1:43P Dictated by: MARIIA CONTRERAS MD This examination was interpreted and the report reviewed and electronically signed by: MARIIA CONTRERAS MD on Oct 09 2024 2:59PM EST [id number] Normal [facility]27[facility]2024 [facility] MANISHA KE[facility] ([id number]) 1950 F Date Time Provider Department 09/27/24 [facility] During your visit today, we recorded the following information about you: Claire Lancaster, LIVIA.MATERIAL LOADER 09/27/2024 1:37 PM Signed Hemoglobin A1c is 10.2. Diabetes is not at all controlled. She has significant cardiovascular risk as this has been uncontrolled for a long time. Would she like to see an trauma doctor? Kidney function is normal. Blood counts are normal. Kerry Spivey MA 09/27/2024 5:25 PM Signed Patient was made aware of the results. Patient verbalizes understanding. She sees Dr Chi at [facility], last visit from 08/20/24 is scanned in chart. Ricardo Melendrez Stephanie, RN 10/10/2024 12:55 PM Signed Patient notified of results and provider's instructions. Patient verbalizes understanding. Gertrudis Newman RN Allergies As of Date: 09/27/2024 Noted Allergy Reaction JESENIA INHIBITORS 03/27/2014 3 - Cough NSAIDS (NON-STEROIDAL ANTI-INFLAM*05/09/2009 8 - GI Upset TAPE (ADHESIVE TAPE (ROSINS)) 10/26/2016 14 - Other: See Comments Comments: Blisters from surgical tape TRULICITY (DULAGLUTIDE) 05/04/2021 14 - Other: See Comments Comments: Gastroparesis Date Reviewed: 09/26/2024 Reviewed by: My Fonseca MA - Fully Assessed Prescriptions as of 10/10/2024 - erythromycin (ROMYCIN) 5 mg/gram (0.5 %) ophthalmic ointment APPLY OINTMENT INTO EACH EYE NIGHTLY - pantoprazole DR (PROTONIX) 40 mg tablet Take 1 tablet by mouth once daily. - triamcinolone acetonide (KENALOG) 0.1 % cream Apply 1 application to affected area two times a day. Apply to affected area. Location: legs - gabapentin (NEURONTIN) 300 mg capsule Take 1 capsule by mouth daily at bedtime. - atorvastatin (LIPITOR) 20 mg tablet Take 1 tablet by mouth daily at bedtime. For cholesterol. - fluticasone (FLONASE) 50 mcg/actuation nasal spray USE 1 SPRAY IN EACH NOSTRIL ONCE DAILY AT BEDTIME DIRECTED - metoprolol succinate ER (TOPROL XL) 100 mg Take 1 tablet by mouth once daily. - oxybutynin ER (DITROPAN XL) 10 mg 24 hr tablet Take 2 tablets by mouth once daily. - ammonium lactate (LAC-HYDRIN) 12 % lotion Apply to affected area as needed. - albuterol HFA (PROVENTIL HFA, VENTOLIN HFA) 90 mcg/actuation inhaler Inhale 2 Puffs as instructed every 4 hours as needed for wheezing/shortness of breath. - fluticasone-salmeterol (ADVAIR, WIXELA) 250-50 mcg/dose inhaler Inhale 1 Puff as instructed two times a day. - Omeprazole 20 mg TbEC Take by mouth. - aspirin, enteric coated (ASPIRIN, ENTERIC COATED) 81 mg EC tablet Take 81 mg by mouth once daily. - verapamil SR (CALAN SR) 120 mg CR tablet Take 1 tablet by mouth daily at bedtime. - HUMULIN R U-500, CONC, KWIKPEN 500 unit/mL (3 mL) inpn 40 units 12pm /10 units sq at 5pm/ 25 units at 10pm. Per Dr. Chi. - CPAP/BIPAP/OTHER Type .CPAPSettings into a note to see current settings/supplies/DME information. - losartan (COZAAR) 100 mg tablet Take 1 tablet by mouth once daily. - Blood-Glucose Sensor (FREESTYLE MITZI 3 SENSOR) krystyna Use as directed - escitalopram oxalate (LEXAPRO) 10 mg tablet Take 1 tablet by mouth once daily. - FOLDING WALKER WITH 5 WHEELS Use with ambulation - blood sugar diagnostic (BLOOD GLUCOSE TEST) test strip Test blood sugar(s) 3 times daily. Dx: Type 2 DM - Uncontrolled E11.65 Insulin: Yes - Lancets Test blood sugar(s) 3 times daily. Dx: Type 2 DM - Controlled E11.9 Insulin: Yes - cetirizine (ZYRTEC) 10 mg tablet Take 1 tablet by mouth once daily. - hydroCHLOROthiazide 12.5 mg capsule Take 1 capsule by mouth once daily. - FOLIC ACID ORAL Take by mouth. - methotrexate 2.5 mg tablet Take 20 mg by mouth every Tuesday. - melatonin 3 mg tablet Take 1 tablet at 9PM nightly. - insulin needles, DISPOSABLE, (PEN NEEDLE) 31 gauge x 5/16 Use one needle per dose. 4 per day. - ondansetron orally disintegrating (ZOFRAN ODT) 4 mg disintegrating tablet DISSOLVE 1 TABLET IN MOUTH THREE TIMES DAILY NEEDED FOR NAUSEA AND VOMITING - blood sugar diagnostic (ONETOUCH VERIO TEST STRIPS) test strip Test blood sugar(s) 3-4 times daily. Dx: Other DM Code E11.319 Insulin: Yes - Cholecalciferol, Vitamin D3, 50 mcg (2,000 unit) cap Take 1 capsule by mouth once daily. - Blood-Glucose Meter monitoring kit Glucose Meter of Choice - Kit - Dx: Type 2 DM - Controlled E11.9 - COMPOUNDED PRESCRIPTION Insulin needles-1/2 cc for 100 u Use up to 4 a day - fluorometholone (FML LIQUID FILM) 0.1 % ophthalmic suspension Use 2 Drops in the left eye twice daily. Meds Comments as of 02/06/2021: Pt states she no longer takes baby aspirin, skelaxin, to reclast, no prednisone, No MVI, 02/06/2021 TP Problem List As Of Date 09/27/2024 Noted Resolved BENIGN HYPERTENSION [I10] 05/28/2005 09/01/2007 Hyperlipidemia [E78.5] 05/28/2005 LOC (more content not included)... Normal [facility] A1AT SerPl-ncon 09-26-2024 Alpha 1 antitrypsin [Mass/Vol] 143 mg/dL Normal 90-200 [facility] Comment on above: Order Comment: Speci men Type: BLOOD SPECIMENOrdering Facility: [facility] Address: [address] [place] [address] Performed By: #### 1 825-9, 59747-7 ####[facility] LABIA [id number] [place] [address] [place] ALBUMIN/CREATININE RATIO, UR INEon 09-26-2024 Albumin DL <= 20 mg/L (U) [Mass/Vol] 29.4 mg/L Normal [facility] Comment on above: Order Comment: Speci men Type: URINE SPECIMENOrdering Facility: [facility] Address: [address] [place] [address] Performed By: #### U ACR ####[facility] LABIA [id number] [place] [address] [place] Albumin/Creatinine (U) [Mass ratio] 23 mg/g Normal <30 [facility] Comment on above: Order Comment: Speci men Type: URINE SPECIMENOrdering Facility: [facility] Address: [address] [place] [address] Result Comment: Adul t Male and Female Nephrotic Criteria: <30 mg/g is considered normal to mildly increased 30-300 mg/g is considered moderately increased >300 mg/g is considered severely increased KDIGO. (2013). KDIGO 2012 Clinical Practice Guideline for the Evaluation and Management of Chronic Kidney Disease. Official Journal of the International Society of Nephrology, 3(1), 1-150. Performed By: #### U ACR ####[facility] LABCLIA [id number] [place] [address] [place] Creatinine (U) [Mass/Vol] 127.9 mg/dL Normal 20.0-300.0 [facility] Comment on above: Order Comment: Speci men Type: URINE SPECIMENOrdering Facility: [facility] Address: [address] [place] [address] Performed By: #### U ACR ####[facility] LABCLIA [id number] [place] [address] [place] CBC W Auto Differential pane l (Bld)on 09-26-2024 Basophils (Bld) [#/Vol] 0.05 10*3/uL Normal <0.11 [facility] Comment on above: Order Comment: Speci men Type: BLOOD SPECIMENOrdering Facility: [facility] Address: [address] [place] [address] Performed By: #### 5 7021-8 ####[facility] LABCLIA [id number] [place] [address] [place] Basophils/100 WBC (Bld) 0.7 % Normal [facility] Comment on above: Order Comment: Speci men Type: BLOOD SPECIMENOrdering Facility: [facility] Address: [address] [place] [address] Performed By: #### 5 7021-8 ####[facility] LABCLIA [id number] [place] [address] [place] Differential cell count method Nom (Bld) Auto Normal [facility] Comment on above: Order Comment: Speci men Type: BLOOD SPECIMENOrdering Facility: [facility] Address: [address] [place] [address] Performed By: #### 5 7021-8 ####[facility] LABCLIA [id number] [place] [address] [place] Eosinophils (Bld) [#/Vol] 0.26 10*3/uL Normal <0.46 [facility] Comment on above: Order Comment: Speci men Type: BLOOD SPECIMENOrdering Facility: [facility] Address: [address] [place] [address] Performed By: #### 5 7021-8 ####[facility] LABCLIA [id number] [place] [address] [place] Eosinophils/100 WBC (Bld) 3.8 % Normal [facility] Comment on above: Order Comment: Speci men Type: BLOOD SPECIMENOrdering Facility: [facility] Address: [address] [place] [address] Performed By: #### 5 7021-8 ####[facility] LABCLIA [id number] [place] [address] [place] Erythrocyte distribution width (RBC) [Ratio] 12.7 % Normal 11.5-15.0 [facility] Comment on above: Order Comment: Speci men Type: BLOOD SPECIMENOrdering Facility: [facility] Address: [address] [place] [address] Performed By: #### 5 7021-8 ####[facility] LABCLIA [id number] [place] [address] [place] Hematocrit (Bld) [Volume fraction] 37.5 % Normal 36.0-46.0 [facility] Comment on above: Order Comment: Speci men Type: BLOOD SPECIMENOrdering Facility: [facility] Address: [address] [place] [address] Performed By: #### 5 7021-8 ####[facility] LABCLIA [id number] [place] [address] [place] Hemoglobin (Bld) [Mass/Vol] 12.3 g/dL Normal 11.5-15.5 [facility] Comment on above: Order Comment: Speci men Type: BLOOD SPECIMENOrdering Facility: [facility] Address: [address] [place] [address] Performed By: #### 5 7021-8 ####[facility] LABCLIA [id number] [place] [address] [place] Immature granulocytes (Bld) [#/Vol] 10*3/uL Normal <0.10 [facility] Comment on above: Order Comment: Speci men Type: BLOOD SPECIMENOrdering Facility: [facility] Address: [address] [place] [address] Performed By: #### 5 7021-8 ####[facility] LABCLIA [id number] [place] [address] [place] Immature granulocytes/100 WBC (Bld) 0.3 % Normal [facility] Comment on above: Order Comment: Speci men Type: BLOOD SPECIMENOrdering Facility: [facility] Address: [address] [place] [address] Performed By: #### 5 7021-8 ####[facility] LABCLIA [id number] [place] [address] [place] Lymphocytes (Bld) [#/Vol] 2.15 10*3/uL Normal 1.00-4.00 [facility] Comment on above: Order Comment: Speci men Type: BLOOD SPECIMENOrdering Facility: [facility] Address: [address] [place] [address] Performed By: #### 5 7021-8 ####[facility] LABCLIA [id number] [place] [address] [place] Lymphocytes/100 WBC (Bld) 31.4 % Normal [facility] Comment on above: Order Comment: Speci men Type: BLOOD SPECIMENOrdering Facility: [facility] Address: [address] [place] [address] Performed By: #### 5 7021-8 ####[facility] LABCLIA [id number] [place] [address] [place] MCH (RBC) [Entitic mass] 31.1 pg Normal 26.0-34.0 [facility] Comment on above: Order Comment: Speci men Type: BLOOD SPECIMENOrdering Facility: [facility] Address: [address] [place] [address] Performed By: #### 5 7021-8 ####[facility] LABCLIA [id number] [place] [address] [place] MCHC (RBC) [Mass/Vol] 32.8 g/dL Normal 30.5-36.0 [facility] Comment on above: Order Comment: Speci men Type: BLOOD SPECIMENOrdering Facility: [facility] Address: [address] [place] [address] Performed By: #### 5 7021-8 ####[facility] LABCLIA [id number] [place] [address] [place] MCV (RBC) [Entitic vol] 94.7 fL Normal 80.0-100.0 [facility] Comment on above: Order Comment: Speci men Type: BLOOD SPECIMENOrdering Facility: [facility] Address: [address] [place] [address] Performed By: #### 5 7021-8 ####[facility] LABCLIA [id number] [place] [address] [place] Monocytes (Bld) [#/Vol] 0.26 10*3/uL Normal <0.87 [facility] Comment on above: Order Comment: Speci men Type: BLOOD SPECIMENOrdering Facility: [facility] Address: [address] [place] [address] Performed By: #### 5 7021-8 ####[facility] LABCLIA [id number] [place] [address] [place] Monocytes/100 WBC (Bld) 3.8 % Normal [facility] Comment on above: Order Comment: Speci men Type: BLOOD SPECIMENOrdering Facility: [facility] Address: [address] [place] [address] Performed By: #### 5 7021-8 ####[facility] LABCLIA [id number] [place] [address] [place] Neutrophils (Bld) [#/Vol] 4.11 10*3/uL Normal 1.45-7.50 [facility] Comment on above: Order Comment: Speci men Type: BLOOD SPECIMENOrdering Facility: [facility] Address: [address] [place] [address] Performed By: #### 5 7021-8 ####[facility] LABCLIA [id number] [place] [address] [place] Neutrophils/100 WBC (Bld) 60.0 % Normal [facility] Comment on above: Order Comment: Speci men Type: BLOOD SPECIMENOrdering Facility: [facility] Address: [address] [place] [address] Performed By: #### 5 7021-8 ####[facility] LABCLIA [id number] [place] [address] [place] Nucleated RBC (Bld) [#/Vol] 10*3/uL Normal <0.01 [facility] Comment on above: Order Comment: Speci men Type: BLOOD SPECIMENOrdering Facility: [facility] Address: [address] [place] [address] Performed By: #### 5 7021-8 ####[facility] LABCLIA [id number] [place] [address] [place] Nucleated RBC/100 WBC (Bld) [Ratio] 0.0 /100 WBC Normal [facility] Comment on above: Order Comment: Speci men Type: BLOOD SPECIMENOrdering Facility: [facility] Address: [address] [place] [address] Performed By: #### 5 7021-8 ####[facility] LABIA [id number] [place] [address] [place] Platelet mean volume (Bld) [Entitic vol] 9.7 fL Normal 9.0-12.7 [facility] Comment on above: Order Comment: Speci men Type: BLOOD SPECIMENOrdering Facility: [facility] Address: [address] [place] [address] Performed By: #### 5 7021-8 ####[facility] LABIA [id number] [place] [address] [place] Platelets (Bld) [#/Vol] 264 10*3/uL Normal 150-400 [facility] Comment on above: Order Comment: Speci men Type: BLOOD SPECIMENOrdering Facility: [facility] Address: [address] [place] [address] Performed By: #### 5 7021-8 ####[facility] LABIA [id number] [place] [address] [place] RBC (Bld) [#/Vol] 3.96 10*6/uL Normal 3.90-5.20 [facility] Comment on above: Order Comment: Speci men Type: BLOOD SPECIMENOrdering Facility: [facility] Address: [address] [place] [address] Performed By: #### 5 7021-8 ####[facility] LABCLIA [id number] [place] [address] [place] WBC (Bld) [#/Vol] 6.85 10*3/uL Normal 3.70-11.00 [facility] Comment on above: Order Comment: Speci men Type: BLOOD SPECIMENOrdering Facility: [facility] Address: [address] [place] [address] Performed By: #### 5 7021-8 ####[facility] JAVIER [id number] [id number] [address] [facility] CNOVon 09-26-2024 CNOV Office Visit (FAMPWS ) MANISHA KEITH ([id number]) 1950 F Date Time Provider Department 09/26/24 2:40 PM [facility] During [facility] visit today, we recorded the following information about you: Pulse Blood pressure Weight Height 105/minute 136/70 88.5 kg 1.549 m Ilir Hernández MD 09/26/2024 3:34 PM Signed Patient presents with: 6 Month Exam HPI: Patient presents today for office visit for follow up. DM: seeing derm. No longer using a pump. A1c is still high. Encouraged follow up. GERD: Unsure whether or not she is taking Nexium or Prilosec. Having reflux symptoms. Vomiting occasionally. No abdominal pain. No bloody or black stool. Stools are always loose but has been that way since her gallbladder is out. Has known gastroparesis. PSYCH: States she's taking the Lexapro prn for anxiety not daily. Denies any depression symptoms. Suggested that not taking it daily could be contributing to some of her issues. HLD: No myalgias. HTN: Checks BP occ Denies chest pain Shortness of breath with exertion. She feels this is getting slightly worse. Denies headaches and dizziness. Some palpitations. No syncope. Occ edema RICARDO: Does not use her CPAP machine. Can't sleep with machine. Having lots of fatigue. Sleeping often. Awake for a couple hours and then falls back asleep. Refers to sleeping about 20hrs a day. Inquiring about mouth guard for sleep apnea. Discussed seeing dentist. Follows with pulmonary, sleep med and podiatry. Did not keep her last julianne with sleep med. Sees rheumatology. Sees Dr Olivas for gi. Following with steam engineer. Just had labs drawn today. Currently pending. Bone density is ordered. Did not go. Encouraged to follow up. MEDICATIONS: Current Outpatient Medications Medication Sig erythromycin (ROMYCIN) 5 mg/gram (0.5 %) ophthalmic ointment APPLY OINTMENT INTO EACH EYE NIGHTLY triamcinolone acetonide (KENALOG) 0.1 % cream Apply 1 application to affected area two times a day. Apply to affected area. Location: legs gabapentin (NEURONTIN) 300 mg capsule Take 1 capsule by mouth daily at bedtime. atorvastatin (LIPITOR) 20 mg tablet Take 1 tablet by mouth daily at bedtime. For cholesterol. fluticasone (FLONASE) 50 mcg/actuation nasal spray USE 1 SPRAY IN EACH NOSTRIL ONCE DAILY AT BEDTIME DIRECTED metoprolol succinate ER (TOPROL XL) 100 mg Take 1 tablet by mouth once daily. oxybutynin ER (DITROPAN XL) 10 mg 24 hr tablet Take 2 tablets by mouth once daily. ammonium lactate (LAC-HYDRIN) 12 % lotion Apply to affected area as needed. albuterol HFA (PROVENTIL HFA, VENTOLIN HFA) 90 mcg/actuation inhaler Inhale 2 Puffs as instructed every 4 hours as needed for wheezing/shortness of breath. fluticasone-salmeterol (ADVAIR, WIXELA) 250-50 mcg/dose inhaler Inhale 1 Puff as instructed two times a day. aspirin, enteric coated (ASPIRIN, ENTERIC COATED) 81 mg EC tablet Take 81 mg by mouth once daily. HUMULIN R U-500, CONC, KWIKPEN 500 unit/mL (3 mL) inpn 40 units 12pm /10 units sq at 5pm/ 25 units at 10pm. Per Dr. Chi. CPAP/BIPAP/OTHER Type .CPAPSettings into a note to see current settings/supplies/DME information. losartan (COZAAR) 100 mg tablet Take 1 tablet by mouth once daily. Blood-Glucose Sensor (FREESTYLE MITZI 3 SENSOR) krystyna Use as directed FOLDING WALKER WITH 5 WHEELS Use with ambulation blood sugar diagnostic (BLOOD GLUCOSE TEST) test strip Test blood sugar(s) 3 times daily. Dx: Type 2 DM - Uncontrolled E11.65 Insulin: Yes Lancets Test blood sugar(s) 3 times daily. Dx: Type 2 DM - Controlled E11.9 Insulin: Yes hydroCHLOROthiazide 12.5 mg capsule Take 1 capsule by mouth once daily. FOLIC ACID ORAL Take by mouth. methotrexate 2.5 mg tablet Take 20 mg by mouth every Tuesday. melatonin 3 mg tablet Take 1 tablet at 9PM nightly. insulin needles, DISPOSABLE, (PEN NEEDLE) 31 gauge x 5/16 Use one needle per dose. 4 per day. ondansetron orally disintegrating (ZOFRAN ODT) 4 mg disintegrating tablet DISSOLVE 1 TABLET IN MOUTH THREE TIMES DAILY NEEDED FOR NAUSEA AND VOMITING blood sugar diagnostic (Jobs The WordUCH VERIO TEST STRIPS) test strip Test blood sugar(s) 3-4 times daily. Dx: Other DM Code E11.319 Insulin: Yes Cholecalciferol, Vitamin D3, 50 mcg (2,000 unit) cap Take 1 capsule by mouth once daily. Blood-Glucose Meter monitoring kit Glucose Meter of Choice - Kit - Dx: Type 2 DM - Controlled E11.9 COMPOUNDED PRESCRIPTION Insulin needles-1/2 cc for 100 u Use up to 4 a day fluorometholone (FML LIQUID FILM) 0.1 % ophthalmic suspension Use 2 Drops in the left eye twice daily. pantoprazole DR (PROTONIX) 40 mg tablet Take 1 tablet by mouth once daily. Omeprazole 20 mg TbEC Take by mouth. verapamil SR (CALAN SR) 120 mg CR tablet Take 1 tablet by mouth daily at bedtime. (Patient not taking: Reported on 08/03/2024) escitalopram oxala (more content not included)... Normal [facility] Comprehensive metabolic 2000 panelon 09-26-2024 Albumin [Mass/Vol] 3.8 g/dL Low 3.9-4.9 [facility] Comment on above: Order Comment: Speci men Type: BLOOD SPECIMENOrdering Facility: [facility] Address: [address] [place] [address] Performed By: #### 1 825-9, 76815-1 ####[facility] LABCLIA [id number] [place] [address] [place] ALP [Catalytic activity/Vol] 60 U/L Normal 34-123 [facility] Comment on above: Order Comment: Speci men Type: BLOOD SPECIMENOrdering Facility: [facility] Address: [address] [id number] Performed By: #### 1 825-9, 18630-7 ####[facility] LABCLIA [id number] [place] [address] [place] ALT [Catalytic activity/Vol] 17 U/L Normal 7-38 [facility] Comment on above: Order Comment: Speci men Type: BLOOD SPECIMENOrdering Facility: [facility] Address: [address] [place] [address] Performed By: #### 1 825-9, 70238-6 ####[facility] LABCLIA [id number] [place] [address] [place] Anion gap [Moles/Vol] 15 mmol/L Normal 8-15 [facility] Comment on above: Order Comment: Speci men Type: BLOOD SPECIMENOrdering Facility: [facility] Address: [address] [place] [address] Performed By: #### 1 825-9, 11348-5 ####[facility] LABCLIA [id number] [place] [address] [place] AST [Catalytic activity/Vol] 16 U/L Normal 13-35 [facility] Comment on above: Order Comment: Speci men Type: BLOOD SPECIMENOrdering Facility: [facility] Address: [address] [place] [address] Performed By: #### 1 825-9, 29603-1 ####[facility] LABCLIA [id number] [place] [id number] [place] Bilirubin [Mass/Vol] 0.4 mg/dL Normal 0.2-1.3 [facility] Comment on above: Order Comment: Speci men Type: BLOOD SPECIMENOrdering Facility: [facility] Address: [address] [place] [address] Performed By: #### 1 825-9, 25662-9 ####[facility] LABCLIA [id number] [address] [address] [place] Calcium [Mass/Vol] 9.4 mg/dL Normal 8.5-10.2 [facility] Comment on above: Order Comment: Speci men Type: BLOOD SPECIMENOrdering Facility: [facility] Address: [address] [place] [address] Performed By: #### 1 825-9, 53130-9 ####[facility] LABCLIA [id number] [place] [address] [place] Chloride [Moles/Vol] 100 mmol/L Normal 98-107 [facility] Comment on above: Order Comment: Speci men Type: BLOOD SPECIMENOrdering Facility: [facility] Address: [address] [place] [address] Performed By: #### 1 825-9, 54380-7 ####[facility] LABCLIA [id number] [place] [address] [place] CO2 [Moles/Vol] 24 mmol/L Normal 22-30 [facility] Comment on above: Order Comment: Speci men Type: BLOOD SPECIMENOrdering Facility: [facility] Address: [address] [place] [address] Performed By: #### 1 825-9, 93476-9 ####[facility] LABCLIA [id number] [place] [address] [place] Creatinine [Mass/Vol] 0.88 mg/dL Normal 0.58-0.96 [facility] Comment on above: Order Comment: Speci men Type: BLOOD SPECIMENOrdering Facility: [facility] Address: [address] [place] [address] Performed By: #### 1 825-9, 11950-0 ####[facility] LABCLIA [id number] [place] [address] [place] Creatinine and Glomerular filtration rate.predicted panel (S/P/Bld) 70 mL/min/1.73m??? Normal >=60 [facility] Comment on above: Order Comment: Miguel julian Type: BLOOD SPECIMENOrdering Facility: [facility] Address: [address] [place] [address] Result Comment: Suzanne mated Glomerular Filtration Rate (eGFR) is calculated using the 2020 CKD-EPI creatinine equation. This equation utilizes serum creatinine, sex, and age as parameters. The creatinine assay has traceable calibration to isotope dilution-mass spectrometry. Refer to KDIGO guidelines for clinical interpretation. In patients with unstable renal function, e.g. those with acute kidney injury, the eGFR may not accurately reflect actual GFR. Performed By: #### 1 825-9, 72841-1 ####[facility] LABCLIA [id number] [place] [address] [place] Glucose [Mass/Vol] 281 mg/dL High 74-99 [facility] Comment on above: Order Comment: Miguel julian Type: BLOOD SPECIMENOrdering Facility: [facility] Address: [address] [place] [address] Result Comment: The [place] [employer] (ADA) provides guidance for cutoff values for fasting glucose and random glucose. The ADA defines fasting as no caloric intake for at least 8 hours. Fasting plasma glucose results between 100 to 125 [...] Standards of Medical Care in Diabetes 2016, [place] [employer]. Diabetes Care. 2016.39(Suppl 1). Performed By: #### 1 825-9, 66156-4 ####[facility] LABCLIA [id number] [place] [address] [place] Potassium [Moles/Vol] 4.4 mmol/L Normal 3.7-5.1 [facility] Comment on above: Order Comment: Speci men Type: BLOOD SPECIMENOrdering Facility: [facility] Address: [address] [place] [address] Performed By: #### 1 825-9, 72555-5 ####[facility] LABCLIA [id number] [address] [address] [place] Protein [Mass/Vol] 7.3 g/dL Normal 6.3-8.0 [facility] Comment on above: Order Comment: Speci men Type: BLOOD SPECIMENOrdering Facility: [facility] Address: [address] [place] [address] Performed By: #### 1 825-9, 99361-7 ####[facility] LABCLIA [id number] [place] [address] [place] Sodium [Moles/Vol] 139 mmol/L Normal 136-144 [facility] Comment on above: Order Comment: Speci men Type: BLOOD SPECIMENOrdering Facility: [facility] Address: [address] [place] [address] Performed By: #### 1 825-9, 28807-8 ####[facility] LABCLIA [id number] [place] [address] [place] Urea nitrogen [Mass/Vol] 18 mg/dL Normal 7-21 [facility] Comment on above: Order Comment: Speci men Type: BLOOD SPECIMENOrdering Facility: [facility] Address: [address] [place] [address] Performed By: #### 1 825-9, 98990-0 ####[facility] LABCLIA [id number] [place] [address] [place] HbA1c (Bld)on 09-26-2024 Average glucose Estimated from glycated hemoglobin (Bld) [Mass/Vol] 246 mg/dL Normal [facility] Comment on above: Order Comment: Speci men Type: BLOOD SPECIMENOrdering Facility: [facility] Address: [address] [id number] Result Comment: eAG: (Estimated average glucose) is a calculated value from HgbA1c and is sales representative printing paper of the average blood glucose level in the last 2-3 month period. Performed By: #### 5 5454-3 ####[facility] LABCLIA [id number] [place] [address] [place] HbA1c (Bld) [Mass fraction] 10.2 % High 4.3-5.6 [facility] Comment on above: Order Comment: Speci men Type: BLOOD SPECIMENOrdering Facility: [facility] Address: [address] [place] [address] Result Comment: [place] Diabetes Association guidelines indicate that patients with HgbA1c in the range 5.7-6.4% are at increased risk for development of diabetes, and intervention by lifestyle modification may be beneficial. HgbA1c greater or equal to 6.5% is considered diagnostic of diabetes. Performed By: #### 5 5454-3 ####[facility] LABCLIA [id number] [place] [id number] [place] CBC W/Diff, Automatedon 02-0 Absolute Lymph 1.63 X10 3/uL Normal 0.83-4.51 [facility] Comment on above: Performed By: #### L 500.4050, L100.0100 #### [facility] [address] [facility] [address] Absolute Neut 4.2 X10 3/uL Normal 2.0-7.7 [facility] Comment on above: Performed By: #### L 500.4050, L100.0100 #### [facility] [address] [place], [address] Basophils/100 WBC (Bld) 0.9 % Normal 0-1 [facility] Comment on above: Performed By: #### L 500.4050, L100.0100 #### [facility] [address] [place], [address] Eosinophils/100 WBC (Bld) 3.0 % Normal 0-5 [facility] Comment on above: Performed By: #### L 500.4050, L100.0100 #### [facility] [address] [place], [address] Erythrocyte distribution width (RBC) [Ratio] 13.1 % Normal 11.6-14.6 [facility] Comment on above: Performed By: #### L 500.4050, L100.0100 #### [facility] [address] [place], [address] Hematocrit (Bld) [Volume fraction] 37.3 % Normal 37-47 [facility] Comment on above: Performed By: #### L 500.4050, L100.0100 #### [facility] [address] [place], [address] Hemoglobin (Bld) [Mass/Vol] 11.9 g/dL Low 12.0-15.0 [facility] Comment on above: Performed By: #### L 500.4050, L100.0100 #### [facility] [address] [place], [address] IG% 0.500 Normal 0.0-0.9 [facility] Comment on above: Result Comment: IG% - Immature Granulocytes (promyelocytes, myelocytes and metamyelocytes) > 1% indicates that a LEFT SHIFT is Present. Performed By: #### L 500.4050, L100.0100 #### [facility] [address] [place], [address] Lymphocytes/100 WBC (Bld) 24.8 % Normal 19-41 [facility] Comment on above: Performed By: #### L 500.4050, L100.0100 #### [facility] [address] [place], [address] MCH (RBC) [Entitic mass] 30.0 pg Normal 27.0-32.0 [facility] Comment on above: Performed By: #### L 500.4050, L100.0100 #### [facility] [address] [place], [address] MCHC (RBC) [Mass/Vol] 31.9 g/dL Low 32-36 [facility] Comment on above: Performed By: #### L 500.4050, L100.0100 #### [facility] [address] [place], [address] MCV (RBC) [Entitic vol] 94.0 fL Normal 81-99 [facility] Comment on above: Performed By: #### L 500.4050, L100.0100 #### [facility] [address] [place], [address] Monocytes/100 WBC (Bld) 6.4 % Normal 0-10 [facility] Comment on above: Performed By: #### L 500.4050, L100.0100 #### [facility] [address] [place], [address] Neutrophils/100 WBC (Bld) 64.4 % Normal 47-70 [facility] Comment on above: Performed By: #### L 500.4050, L100.0100 #### [facility] [address] [place], [address] Nucleated RBC (Bld) [#/Vol] 0 10*3/uL Normal 0-5 [facility] Comment on above: Performed By: #### L 500.4050, L100.0100 #### [facility] [address] [place], [address] Platelet mean volume (Bld) [Entitic vol] 9.8 fL Normal 6.2-12.0 [facility] Comment on above: Performed By: #### L 500.4050, L100.0100 #### [place] [facility] [address] [place], [address] Platelets (Bld) [#/Vol] 256 10*3/uL Normal 150-450 [facility] Comment on above: Performed By: #### L 500.4050, L100.0100 #### [facility] [address] [place], [address] RBC (Bld) [#/Vol] 3.97 10*6/uL Low 4.2-5.4 [facility] Comment on above: Performed By: #### L 500.4050, L100.0100 #### [facility] [address] [place], [address] RDW SD 45.1 fl High 35.1-43.9 [facility] Comment on above: Performed By: #### L 500.4050, L100.0100 #### [facility] [address] [place], [address] WBC (Bld) [#/Vol] 6.6 10*3/uL Normal 4.4-11.0 [facility] Comment on above: Performed By: #### L 500.4050, L100.0100 #### [facility] [address] [place], [address] Comprehensive Metabolic Prof [facility] 09-18-2024 Albumin [Mass/Vol] 3.1 g/dL Low 3.2-5.0 [facility] Comment on above: Performed By: #### L 500.4050, L100.0100 #### [facility] [address] [place], [address] Albumin/Globulin [Mass ratio] 0.7 {ratio} Low 0.9-2.4 [facility] Comment on above: Performed By: #### L 500.4050, L100.0100 #### [facility] [address] [place], [address] ALK P 61 U/L Normal 45-117 [facility] Comment on above: Performed By: #### L 500.4050, L100.0100 #### [facility] [address] [place], [address] ALT [Catalytic activity/Vol] 19 U/L Normal 13-56 [facility] Comment on above: Performed By: #### L 500.4050, L100.0100 #### [facility] [address] [place], [address] AST [Catalytic activity/Vol] 16 U/L Normal 15-37 [facility] Comment on above: Performed By: #### L 500.4050, L100.0100 #### [facility] [address] [place], [address] Bilirubin [Mass/Vol] 0.30 mg/dL Normal 0.20-1.00 [facility] Comment on above: Result Comment: For patients on eltrombopag therapy, use of Dimension Ovid TBIL is not recommended. Performed By: #### L 500.4050, L100.0100 #### [facility] [address] [place], [address] BUN/CRE 19.3 RATIO Normal 10-20 [facility] Comment on above: Performed By: #### L 500.4050, L100.0100 #### [facility] [address] [place], [address] CA,Total 8.7 mg/dL Normal 8.5-10.1 [facility] Comment on above: Performed By: #### L 500.4050, L100.0100 #### [facility] [address] [place], [address] Chloride [Moles/Vol] 103 mmol/L Normal 98-107 [facility] Comment on above: Performed By: #### L 500.4050, L100.0100 #### [facility] [address] [place], [address] CO2 [Moles/Vol] 23.0 mmol/L Normal 21.0-32.0 [facility] Comment on above: Performed By: #### L 500.4050, L100.0100 #### [facility] [address] [place], [address] Creatinine [Mass/Vol] 0.98 mg/dL Normal 0.55-1.02 [facility] Comment on above: Result Comment: The validity of the calculated GFR GFRAA in patients over 70 years has not been determined. Clinical correlation is essential. Performed By: #### L 500.4050, L100.0100 #### [facility] [address] [place], [address] EST GFR - AA 71 mL/min Normal >60 [facility] Comment on above: Result Comment: Afri can Thai GFR Calc Performed By: #### L 500.4050, L100.0100 #### [facility] [address] [place], [address] GAP 9 Normal 5-15 [facility] Comment on above: Performed By: #### L 500.4050, L100.0100 #### [facility] [address] [place], [address] GFR/1.73 sq M.predicted among non-blacks MDRD (S/P/Bld) [Vol rate/Area] 59 mL/min/{1.73_m2} Low >60 [facility] Comment on above: Result Comment: Non- GFR Calc Performed By: #### L 500.4050, L100.0100 #### [facility] [address] [place], [address] Globulin (S) [Mass/Vol] 4.2 g/dL Normal 2.2-4.2 [facility] Comment on above: Performed By: #### L 500.4050, L100.0100 #### [facility] [address] [place], [address] Glucose [Mass/Vol] 344 mg/dL High 74-106 [facility] Comment on above: Result Comment: Gluc ose result greater than or equal to 200 mg/dL suggests DIABETES MELLITUS per A.D.A. criteria. Performed By: #### L 500.4050, L100.0100 #### [facility] [address] [place], [address] Potassium [Moles/Vol] 4.1 mmol/L Normal 3.5-5.1 [facility] Comment on above: Performed By: #### L 500.4050, L100.0100 #### [facility] [address] [place], [address] Sodium [Moles/Vol] 135 mmol/L Low 136-145 [facility] Comment on above: Performed By: #### L 500.4050, L100.0100 #### [facility] [address] [place], [address] T PROT 7.3 g/dL Normal 6.4-8.2 [facility] Comment on above: Performed By: #### L 500.4050, L100.0100 #### [facility] [address] [place], [address] Urea nitrogen [Mass/Vol] 19 mg/dL High 7-18 [facility] Comment on above: Performed By: #### L 500.4050, L100.0100 #### [facility] [address] [place], [address] CNPBetty 08-28-2024 GUILLERMINA Telephone (FAMPWS) MANISHA KEITH ([id number]) 1950 F Date Time Provider Department 08/28/24 ILIR HERNÁNDEZ During your visit today, we recorded the following information about you: Jelena Umaña RN 08/28/2024 1:49 PM Signed Lyndsey from [facility] calling in follow up to pt's dx of osteoporosis. Checking to see if pt ever received Reclast. Per [facility], pt received one infusion back in November of 2020. Dr. Chi is wanting to know if Dr. Hernández is going to order pt's Reclast or if he would like for Dr. Chi's office to take this over? Please call Dr. Chi's nurse back at [phone] and follow nurse prompts. Ilir Hernández MD 08/28/2024 2:15 PM Signed She never had her additional injections. Dr Chi can follow Juan Ybarra RN 08/28/2024 3:23 PM Signed Lyndsey from [facility] called and is notified of providers message and instructions.She voices understanding and will let Dr Chi know. Juan Ybarra RN Allergies As of Date: 08/28/2024 Noted Allergy Reaction JESENIA INHIBITORS 03/27/2014 3 - Cough NSAIDS (NON-STEROIDAL ANTI-INFLAM*05/09/2009 8 - GI Upset TAPE (ADHESIVE TAPE (ROSINS)) 10/26/2016 14 - Other: See Comments Comments: Blisters from surgical tape TRULICITY (DULAGLUTIDE) 05/04/2021 14 - Other: See Comments Comments: Gastroparesis Date Reviewed: 08/23/2024 Reviewed by: Carlos Brumfield MA - Fully Assessed Reason for Visit: Question regarding Osteoporosis tx with Reclast [Other] Prescriptions as of 08/28/2024 - pantoprazole DR (PROTONIX) 40 mg tablet Take 1 tablet by mouth once daily. - triamcinolone acetonide (KENALOG) 0.1 % cream Apply 1 application to affected area two times a day. Apply to affected area. Location: legs - gabapentin (NEURONTIN) 300 mg capsule Take 1 capsule by mouth daily at bedtime. - atorvastatin (LIPITOR) 20 mg tablet Take 1 tablet by mouth daily at bedtime. For cholesterol. - fluticasone (FLONASE) 50 mcg/actuation nasal spray USE 1 SPRAY IN EACH NOSTRIL ONCE DAILY AT BEDTIME DIRECTED - metoprolol succinate ER (TOPROL XL) 100 mg Take 1 tablet by mouth once daily. - oxybutynin ER (DITROPAN XL) 10 mg 24 hr tablet Take 2 tablets by mouth once daily. - ammonium lactate (LAC-HYDRIN) 12 % lotion Apply to affected area as needed. - albuterol HFA (PROVENTIL HFA, VENTOLIN HFA) 90 mcg/actuation inhaler Inhale 2 Puffs as instructed every 4 hours as needed for wheezing/shortness of breath. - fluticasone-salmeterol (ADVAIR, WIXELA) 250-50 mcg/dose inhaler Inhale 1 Puff as instructed two times a day. - Omeprazole 20 mg TbEC Take by mouth. - aspirin, enteric coated (ASPIRIN, ENTERIC COATED) 81 mg EC tablet Take 81 mg by mouth once daily. - verapamil SR (CALAN SR) 120 mg CR tablet Take 1 tablet by mouth daily at bedtime. - HUMULIN R U-500, CONC, KWIKPEN 500 unit/mL (3 mL) inpn 40 units 12pm /10 units sq at 5pm/ 25 units at 10pm. Per Dr. Chi. - CPAP/BIPAP/OTHER Type .CPAPSettings into a note to see current settings/supplies/DME information. - losartan (COZAAR) 100 mg tablet Take 1 tablet by mouth once daily. - Blood-Glucose Sensor (FREESTYLE MITZI 3 SENSOR) krystyna Use as directed - escitalopram oxalate (LEXAPRO) 10 mg tablet Take 1 tablet by mouth once daily. - FOLDING WALKER WITH 5 WHEELS Use with ambulation - blood sugar diagnostic (BLOOD GLUCOSE TEST) test strip Test blood sugar(s) 3 times daily. Dx: Type 2 DM - Uncontrolled E11.65 Insulin: Yes - Lancets Test blood sugar(s) 3 times daily. Dx: Type 2 DM - Controlled E11.9 Insulin: Yes - cetirizine (ZYRTEC) 10 mg tablet Take 1 tablet by mouth once daily. - hydroCHLOROthiazide 12.5 mg capsule Take 1 capsule by mouth once daily. - FOLIC ACID ORAL Take by mouth. - methotrexate 2.5 mg tablet Take 20 mg by mouth every Tuesday. - melatonin 3 mg tablet Take 1 tablet at 9PM nightly. - insulin needles, DISPOSABLE, (PEN NEEDLE) 31 gauge x 5/16 Use one needle per dose. 4 per day. - ondansetron orally disintegrating (ZOFRAN ODT) 4 mg disintegrating tablet DISSOLVE 1 TABLET IN MOUTH THREE TIMES DAILY NEEDED FOR NAUSEA AND VOMITING - blood sugar diagnostic ([place] PurificationTOUCH VERIO TEST STRIPS) test strip Test blood sugar(s) 3-4 times daily. Dx: Other DM Code E11.319 Insulin: Yes - Cholecalciferol, Vitamin D3, 50 mcg (2,000 unit) cap Take 1 capsule by mouth once daily. - Blood-Glucose Meter monitoring kit Glucose Meter of Choice - Kit - Dx: Type 2 DM - Controlled E11.9 - COMPOUNDED PRESCRIPTION Insulin needles-1/2 cc for 100 u Use up to 4 a day - fluorometholone (FML LIQUID FILM) 0.1 % ophthalmic suspension Use 2 Drops in the left eye twice daily. Meds Comments as of 02/06/2021: Pt states she no longer takes baby aspirin, skelaxin, to reclast, no prednisone, No MVI, 02/06/2021 TP Problem List As Of Date 08/28/2024 Noted Resolved B (more content not included)... Normal [facility] CNOVon 08-23-2024 CNOV Office Visit (PODIWS ) MANISHA KEITH ([id number]) 1950 F Date Time Provider Department 08/23/24 10:00 AM [place] PODIWS During your visit today, we recorded the following information about you: Carlos Brumfield MA 08/23/2024 10:33 AM Signed AMB ROOMING INTAKE FLOWSHEET DATA Risk Screening Do you have concerns about personal safety or safety in the home?: No Patient presents with: Left Foot - New, Diabetic Foot Care: Nail care Right Foot - New, Diabetic Foot Care: Nail care Carlos Brumfield MA [place] 08/23/2024 10:33 AM Signed Consultation requested by Dr. Lancaster for an opinion regarding deformed toenails and diabetic foot exam. My final recommendations will be communicated back to the requesting physician by way of shared Medical record or letter to requesting physician via US mail. Initial Office Visit Subjective: This 74 year old female presents to clinic for diabetic foot check. Patient has the following complaints: incurvated toenails that cause her pain. Patient states that her big toenails turn inward and with socks, they cause her pain. She is here to discuss options. Patient admits to being diabetic for 15 years now. Patient +B/T/N in feet at this time. Patient -pain in legs when walking. No other pedal complaints at this time. No change in medications or medical history since last visit. PAIN EVALUATION No data found in the last 1 encounters. Hemoglobin A1C Date Value 12/28/2023 7.5 01/31/2023 10.4 % 10/20/2022 11.2 07/16/2022 11.0 % 12/10/2021 10.9 % 09/08/2021 11.1 % 06/05/2021 10.1 % 05/08/2021 10.8 03/31/2021 10.0 % 03/04/2021 8.9 % 02/02/2021 9.2 % PCP: Ilir Hernández MD PAST MEDICAL HISTORY Diagnosis Date Allergic rhinitis, cause unspecified Arthritis Asthma Childhood asthma Breast cancer (HCC) age 34-had lump, cancerous cells. no issues since, left Diverticulosis of colon (without mention of hemorrhage) Ground glass opacity present on imaging of lung Heme positive stool 2011 History of cervical cancer regular Paps for life Hyperlipidemia 2011 Inflammatory polyarthritis (HCC) Dr. 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 triamcinolone acetonide (KENALOG) 0.1 % cream Apply 1 application to affected area two times a day. Apply to affected area. Location: legs gabapentin (NEURONTIN) 300 mg capsule Take 1 capsule by mouth daily at bedtime. atorvastatin (LIPITOR) 20 mg tablet Take 1 tablet by mouth daily at bedtime. For cholesterol. fluticasone (FLONASE) 50 mcg/actuation nasal spray USE 1 SPRAY IN EACH NOSTRIL ONCE DAILY AT BEDTIME DIRECTED metoprolol succinate ER (TOPROL XL) 100 mg Take 1 tablet by mouth once daily. oxybutynin ER (DITROPAN XL) 10 mg 24 hr tablet Take 2 tablets by mouth once daily. ammonium lactate (LAC-HYDRIN) 12 % lotion Apply to affected area as needed. albuterol HFA (PROVENTIL HFA, VENTOLIN HFA) 90 mcg/actuation inhaler Inhale 2 Puffs as instructed every 4 hours as needed for wheezing/shortness of breath. fluticasone-salmeterol (ADVAIR, WIXELA) 250-50 mcg/dose inhaler Inhale 1 Puff as instructed two times a day. Omeprazole 20 mg TbEC Take by mouth. aspirin, enteric coated (ASPIRIN, ENTERIC COATED) 81 mg EC tablet Take 81 mg by mouth once daily. HUMULIN R U-500, CONC, KWIKPEN 500 unit/mL (3 mL) inpn 40 units 12pm /10 units sq at 5pm/ 25 units at 10pm. Per Dr. Chi. CPAP/BIPAP/OTHER Type .CPAPSettings into a note to see current settings/supplies/DME information. losartan (COZAAR) 100 mg tablet Take 1 tablet by mouth once daily. Blood-Glucose Sensor (FREESTYLE MITZI 3 SENSOR) krystyna Use as directed escitalopram oxalate (LEXAPRO) 10 mg tablet Take 1 tablet by mouth once daily. FOLDING WALKER WITH 5 WHEELS Use with ambulation blood sugar diagnostic (BLOOD GLUCOSE TEST) test strip Test blood sugar(s) 3 times daily. Dx: Type 2 DM - Uncontrolled E11.65 Insulin: Yes Lancets Test blood sugar(s) 3 times daily. Dx: Type 2 DM - Controlled E11.9 Insulin: Yes cetirizine (ZYRTEC) 10 mg tablet Take 1 tablet by mouth once daily. hydroCHLOROthiazide 12.5 mg capsule Take 1 capsule by mouth once daily. FOLIC ACID ORAL Take by mouth. methotrexate 2.5 mg tablet Take 20 mg by mouth every Tuesday. melatonin 3 mg tablet Take 1 tablet at 9PM nightly. insulin (more content not included)... Normal [facility] Endocrinology Visit Reporton 08-20-2024 Endocrinology Visit Report [facility] [address] [place] [address] OFFICE VISIT Date of Service: 08/20/24 MR#: [id number] Acct: [id number] Name: MANISHA KEITH Rep #: [id number] : 1950 Provider: Usman Hartman Age/Sex: 74/F Location: [facility] [place] [place] Status: Signed Intake Vital Signs 07/16/24 11:28 08/20/24 14:56 Height 5 ft 2 in 5 ft 2 in Weight: 190 lb 192 lb 6 oz BMI 34.7 35.2 BP 144/82 H 150/81 H Blood Pressure Location Rt brachial Rt brachial Position Sitting Sitting Pulse 88 83 Pulse Source Monitor Monitor Pulse Oximetry (%) 93 95 Oxygen Delivery Method room air room air Intake Visit Reasons: 1 M FU Chief Complaint: Diabetes Is patient in pain?: No Allergies JESENIA Inhibitors Allergy (Intermediate, Verified 08/20/24 14:58) Cough adhesive tape Allergy (Intermediate, Verified 08/20/24 14:58) blisters dulaglutide (From Trulicity) Allergy (Intermediate, Verified 08/20/24 14:58) Gastroparesis Dressing: Non-Medicated (elastic) Allergy (Verified 08/20/24 14:58) Rash NSAIDS (Non-Steroidal Anti-Inflamma Allergy (Verified 08/20/24 14:58) Other Latex, Natural Rubber Adverse Reaction (Mild, Verified 08/20/24 14:58) RASH Medications ???Medication ???Instructions ???Recorded ???Confirmed ???Type fluticasone propionate 50 1 spray intranasal DAILY PRN NASAL 01/30/14 08/20/24 History mcg/actuation nasal CONGESTION spray,suspension methotrexate sodium 2.5 mg tablet 20 mg PO TEJADA BREAST CANCER 04/16/17 08/20/24 History escitalopram oxalate 10 mg tablet 10 mg PO DAILY PRN DEPRESSION 06/05/21 08/20/24 History (Lexapro) folic acid 1 mg tablet 2 mg PO DAILY SUPPLEMENT 06/05/21 08/20/24 History hydrochlorothiazide 12.5 mg capsule 12.5 mg PO DAILY BLOOD PRESSURE 06/05/21 08/20/24 History losartan 100 mg tablet 100 mg PO DAILY BLOOD PRESSURE 06/05/21 08/20/24 History aspirin 81 mg tablet,delayed 81 mg PO DAILY HEART HEALTH 02/05/22 08/20/24 History release (Adult Low Dose Aspirin) gabapentin 300 mg capsule 300 mg PO QHS NEUROPATHY 02/05/22 08/20/24 History oxybutynin chloride 10 mg 20 mg PO DAILY OVERACTIVE BLADDER 02/05/22 08/20/24 History tablet,extended release 24 hr metoprolol succinate 100 mg 100 mg PO DAILY BLOOD PRESSURE 02/24/22 08/20/24 History tablet,extended release 24 hr esomeprazole magnesium 40 mg 40 mg PO DAILY ACID REFLUX 11/26/22 08/20/24 History capsule,delayed release (Nexium) pen needle, diabetic 32 gauge x #100 ea 11/26/22 08/20/24 Rx (BD Ultra-Fine Tish Pen Needle) atorvastatin 20 mg tablet 20 mg PO DAILY CHOLESTEROL 06/21/23 08/20/24 History metaxalone 800 mg tablet 800 mg PO TID PRN MUSCLE CRAMPS 06/21/23 08/20/24 History blood sugar diagnostic (OneTouch #150 ea 11/15/23 08/20/24 Rx Verio test strips) insulin regular hum U-500 conc 500 See Rx Instructions subcut TIDCM 12/28/23 08/20/24 History unit/mL(3 mL) subcut pen (Humulin diabetes R U-500 (Conc) Insulin Kwikpen) amlodipine 5 mg tablet (Norvasc) 5 mg PO DAILY #30 tabs 04/06/24 08/20/24 Rx Have you [facility] in the past year?: [facility] Depression Ambulates with cane High cholesterol CPAP (continuous positive airway pressure) dependence Closed left hip fracture Osteoporosis Former smoker Sleep apnea Asthma COPD (chronic obstructive pulmonary disease) Essential hypertension History of gastrostomy tube placement Wears glasses Wears dentures History of Clostridium difficile infection Cancer Anxiety Easy bruising Injury of head and neck Restless legs Loss of consciousness Dietary restriction Shortness of breath on exertion Chronic cough History of stress test History of edema Leg cramps History of Holter monitoring Cardiology follow-up encounter History of vaginal delivery Urinary incontinence Internal hemorrhoids History of cervical cancer Diverticulosis Obesity Vision problems Pancreatitis Osteoarthritis Neuropathy IBS (irritable bowel syndrome) Recurrent infections Hives Calcium deficiency Gastrointestinal problem Gall stone Chronic bronchitis Carpal tunnel syndrome Cataract Breast cancer Breast lump UTI (urinary tract infection) Back problem Arthritis Seasonal allergies GERD (gastroesophageal reflux disease) OAB (overactive bladder) Rhabdomyolysis (04/2017) MSSA (methicillin susceptible Staphylococcus aureus) pneumonia Allergic rhinitis Diabetes mellitus, type II Inflammatory polyarthritis Surgical History History of repair of left hip joint History of ERCP S/P cholecystectomy History of nasal cauterization History of colonoscopy History of appendectomy Hi (more content not included)... Normal [facility] CNOVon 08-16-2024 [facility] Office Visit (FAMPWS ) MANISHA KEITH ([id number]) 1950 F Date Time Provider Department 08/16/24 12:40 PM CLAIRE LANCASTERPWS During your visit today, we recorded the following information about you: Temperature Pulse Respiration Blood pressure 97.7 degrees 87/minute 16/minute 160/68 Weight 86.2 kg Claire Lancaster APRN.CNP 08/23/2024 5:08 PM Addendum This is a 74 year old female who presents today with: Patient presents with: Follow Up HISTORY OF PRESENT ILLNESS: Manisha Keith is a 74 year old female. Patient presents with: Follow Up Here to follow up on Cellulitis on lower legs still itchy but redness faded to pale pink and purplish dots are faded to pink Right lower ext. Red, warm to touch, and itches. Has Hx of cellulitis but also allergic to elastic in tend hose Labs reviewed from [facility]- showed stage III a CKD Inhalers now much more affordable Severe acid reflux Multiple reminders. Quit Calcium AND vit. D, overdue on follow up on osteoporosis and PAP PAST MEDICAL HISTORY: PAST MEDICAL HISTORY Diagnosis Date Allergic rhinitis, cause unspecified Arthritis Asthma Childhood asthma Breast cancer (HCC) age 34-had lump, cancerous cells. no issues since, left Diverticulosis of colon (without mention of hemorrhage) Ground glass opacity present on imaging of lung Heme positive stool 2010 History of cervical cancer regular Paps for life Hyperlipidemia 2010 Inflammatory polyarthritis (HCC) Dr. 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) Sleep apnea Not on CPAP Type II or unspecified type diabetes mellitus without mention of complication, not stated as uncontrolled Unspecified essential hypertension PAST SURGICAL HISTORY Procedure Laterality Date ABDOMINAL SURGERY HX hx of feeding tube inserted APPENDECTOMY HX COLONOSCOPY FLX DX W/COLLJ SPEC WHEN PFRMD 06/26/2009 COLONOSCOPY FLX DX W/COLLJ SPEC WHEN PFRMD 04/10/2019 Colonoscopy COLONOSCOPY SCREENING 02/11/2022 Dr Olivas EGD 2011 EGD 02/11/2022 Dr Olivas ERCP DX COLLECTION SPECIMEN BRUSHING/WASHING 07/23/2008 Cholangiopancreatograp hy (ERCP) ESOPHAGOGASTRODUODENOS COPY TRANSORAL DIAGNOSTIC 04/10/2019 EGD EYE SURGERY HX L'SCOPE CHOLECYSTECTOMY 12/30/2023 MASTECTOMY Left age 34 Mastectomy - simple PAST SURGICAL HISTORY OF nose cauterized inside PAST SURGICAL HISTORY OF removal of skin cancer from right arm PAST SURGICAL HISTORY OF Left 10/11/[address] Scott Sutton REMOVAL GALLBLADDER 2023 RMVL SEC MEMBRANOUS CTRC CORNEO-SCLL SCTJ Bilateral Cataract removal BILATERAL TOTAL ABDOMINAL HYSTERECT W/WO RMVL TUBE OVARY age 27 Hysterectomy, MARQUES cervical cancer, has one ovary left ALLERGIES Jesenia Inhibitors, Nsaids (Non-Steroidal Anti-Inflammatory Drug), Tape [Adhesive Tape (Rosins)], and Trulicity [Dulaglutide] MEDICATIONS Current Outpatient Medications Medication Sig fluticasone (FLONASE) 50 mcg/actuation nasal spray USE 1 SPRAY IN EACH NOSTRIL ONCE DAILY AT BEDTIME DIRECTED gabapentin (NEURONTIN) 300 mg capsule Take 1 capsule by mouth daily at bedtime. metoprolol succinate ER (TOPROL XL) 100 mg Take 1 tablet by mouth once daily. oxybutynin ER (DITROPAN XL) 10 mg 24 hr tablet Take 2 tablets by mouth once daily. ammonium lactate (LAC-HYDRIN) 12 % lotion Apply to affected area as needed. albuterol HFA (PROVENTIL HFA, VENTOLIN HFA) 90 mcg/actuation inhaler Inhale 2 Puffs as instructed every 4 hours as needed for wheezing/shortness of breath. fluticasone-salmeterol (ADVAIR, WIXELA) 250-50 mcg/dose inhaler Inhale 1 Puff as instructed two times a day. esomeprazole (NEXIUM) 20 mg capsule Take 1 capsule by mouth daily before breakfast. 1/2 hr before meal. Omeprazole 20 mg TbEC Take by mouth. aspirin, enteric coated (ASPIRIN, ENTERIC COATED) 81 mg EC tablet Take 81 mg by mouth once daily. verapamil SR (CALAN SR) 120 mg CR tablet Take 1 tablet by mouth daily at bedtime. (Patient not taking: Reported on 08/03/2024) HUMULIN R U-500, CONC, KWIKPEN 500 unit/mL (3 mL) inpn 40 units 12pm /10 units sq at 5pm/ 25 units at 10pm. Per Dr. Chi. CPAP/BIPAP/OTHER Type .CPAPSettings into a note to see current settings/supplies/DME information. losartan (COZAAR) 100 mg tablet Take 1 tablet by mouth once daily. Blood-Glucose Meter,Continuous (FREESTYLE MITZI 3 READER) misc Use as directed. Blood-Glucose Sensor (FREESTYLE MITZI 3 SENSOR) krystyna Use as directed escitalopram oxalate (LEXAPRO) 10 mg tablet Take 1 tablet by mouth once daily. FOLDING WALKER WITH 5 WHEELS Use with ambulation blood sugar diagnostic (BLOOD GLUCOSE T (more content not included)... Normal [facility] CNOVon 08-03-2024 [facility] Office Visit (FAMPWS ) MANISHA KEITH ([id number]) 1950 F Date Time Provider Department 08/03/24 11:20 AM CLAIRE LANCASTER During your visit today, we recorded the following information about you: Temperature Pulse Respiration Blood pressure 97.5 degrees 84/minute 16/minute 156/86 Weight 86.6 kg Claire Lancaster, 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 08/03/2024 12:27 PM Signed This is a 74 year old female who presents today with: No chief complaint on file. HISTORY OF PRESENT ILLNESS: Manisha Keith is a 74 year old female. No chief complaint on file. Right lower ext. Red, warm to touch, and itches. Started about 4 days ago Has Hx of cellulitis but also allergic to elastic in tend hose Labs reviewed from [facility]- showed stage III a CKD Can't afford inhalers so taking none PAST MEDICAL HISTORY: PAST MEDICAL HISTORY Diagnosis Date Allergic rhinitis, cause unspecified Arthritis Asthma Childhood asthma Breast cancer (HCC) age 34-had lump, cancerous cells. no issues since, left Diverticulosis of colon (without mention of hemorrhage) Ground glass opacity present on imaging of lung Heme positive stool 2010 History of cervical cancer regular Paps for life Hyperlipidemia 2010 Inflammatory polyarthritis (HCC) Dr. 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) Sleep apnea Not on CPAP Type II or unspecified type diabetes mellitus without mention of complication, not stated as uncontrolled Unspecified essential hypertension PAST SURGICAL HISTORY Procedure Laterality Date ABDOMINAL SURGERY HX hx of feeding tube inserted APPENDECTOMY HX COLONOSCOPY FLX DX W/COLLJ SPEC WHEN PFRMD 06/26/2009 COLONOSCOPY FLX DX W/COLLJ SPEC WHEN PFRMD 04/10/2019 Colonoscopy COLONOSCOPY SCREENING 02/11/2022 Dr Olivas EGD 2010 EGD 02/11/2022 Dr Olivas ERCP DX COLLECTION SPECIMEN BRUSHING/WASHING 07/23/2008 Cholangiopancreatograp hy (ERCP) ESOPHAGOGASTRODUODENOS COPY TRANSORAL DIAGNOSTIC 04/10/2019 EGD EYE SURGERY HX L'SCOPE CHOLECYSTECTOMY 12/30/2023 MASTECTOMY Left age 34 Mastectomy - simple PAST SURGICAL HISTORY OF nose cauterized inside PAST SURGICAL HISTORY OF removal of skin cancer from right arm PAST SURGICAL HISTORY OF Left 10/11/[address] Scott Sutton REMOVAL GALLBLADDER 2023 RMVL SEC MEMBRANOUS CTRC CORNEO-SCLL SCTJ Bilateral Cataract removal BILATERAL TOTAL ABDOMINAL HYSTERECT W/WO RMVL TUBE OVARY age 27 Hysterectomy, MARQUES cervical cancer, has one ovary left ALLERGIES Jesenia Inhibitors, Nsaids (Non-Steroidal Anti-Inflammatory Drug), Tape [Adhesive Tape (Rosins)], and Trulicity [Dulaglutide] MEDICATIONS Current Outpatient Medications Medication Sig esomeprazole (NEXIUM) 20 mg capsule Take 1 capsule by mouth daily before breakfast. 1/2 hr before meal. Omeprazole 20 mg TbEC Take by mouth. aspirin, enteric coated (ASPIRIN, ENTERIC COATED) 81 mg EC tablet Take 81 mg by mouth once daily. etiiuxoitb-ypccbqjf-ak rmoterol (BREZTRI) 160-9-4.8 mcg/actuation HFA aerosol inhaler Inhale 2 Puffs as instructed two times a day. HUMULIN R U-500, CONC, KWIKPEN 500 unit/mL (3 mL) inpn 40 units 12pm /10 units sq at 5pm/ 25 units at 10pm. Per Dr. Chi. losartan (COZAAR) 100 mg tablet Take 1 tablet by mouth once daily. Blood-Glucose Meter,Continuous (FREESTYLE MITZI 3 READER) misc Use as directed. Blood-Glucose Sensor (FREESTYLE MITZI 3 SENSOR) krystyna Use as directed escitalopram oxalate (LEXAPRO) 10 mg tablet Take 1 tablet by mouth once daily. FOLDING WALKER WITH 5 WHEELS Use with ambulation blood sugar diagnostic (BLOOD GLUCOSE TEST) test strip Test blood sugar(s) 3 times daily. Dx: Type 2 DM - Uncontrolled E11.65 Insulin: Yes Blood-Glucose Meter monitoring kit Glucose Meter of Choice - Kit - Dx: Type 2 DM - Controlled E11.9 Insulin: Yes Lancets Test blood sugar(s) 3 times daily. Dx: Type 2 DM - Controlled E11.9 Insulin: Yes fluticasone (FLONASE) 50 mcg/actuation nasal spray USE 1 SPRAY IN EACH NOSTRIL ONCE DAILY AT BEDTIME DIRECTED cetirizine (ZYRTEC) 10 mg tablet Take 1 tablet by mouth once daily. hydroCHLOROthiazide 12.5 mg capsule Take 1 capsule by mouth once daily. FOLIC ACID ORAL Take by mouth. atorvastatin (LIPITOR) 20 mg tablet Take 1 tablet by mouth daily at bedtime. For cholesterol. methotrexate 2.5 mg tablet Take 20 mg by mouth every Tuesday. melatonin 3 mg tablet Take 1 tablet at 9PM nightly. insulin needles, DISPOSABLE, (PEN NEEDLE) 31 gauge x /16 Use one needle per dose. 4 per day. ondansetron orally disintegrating (ZOFRAN ODT) 4 mg disintegrating tablet DISSOLVE 1 TABLET IN MOUTH THREE TIMES DAILY (more content not included)... Normal [facility] Metabolic Prof ilon 07-16-2024 Albumin [Mass/Vol] 3.2 g/dL Normal 3.2-5.0 [facility] Comment on above: Performed By: #### L 500.4050, L500.4100, L502.0250 ####[facility] [address] [place], [address] Albumin/Globulin [Mass ratio] 0.8 {ratio} Low 0.9-2.4 [facility] Comment on above: Performed By: #### L 500.4050, L500.4100, L502.0250 ####[facility] [address] [place], [address] ALK P 65 U/L Normal 45-117 [facility] Comment on above: Performed By: #### L 500.4050, L500.4100, L502.0250 ####[facility] [address] [place], [address] ALT [Catalytic activity/Vol] 19 U/L Normal 13-56 [facility] Comment on above: Performed By: #### L 500.4050, L500.4100, L502.0250 ####[facility] [address] [place], [address] AST [Catalytic activity/Vol] 19 U/L Normal 15-37 [facility] Comment on above: Performed By: #### L 500.4050, L500.4100, L502.0250 ####[facility] [address] [place], [address] Bilirubin [Mass/Vol] 0.40 mg/dL Normal 0.20-1.00 [facility] Comment on above: Result Comment: For patients on eltrombopag therapy, use of Dimension Ovid TBIL is not recommended. Performed By: #### L 500.4050, L500.4100, L502.0250 ####[facility] [address] [place], [address] BUN/CRE 11.8 RATIO Normal 10-20 [facility] Comment on above: Performed By: #### L 500.4050, L500.4100, L502.0250 ####[facility] [address] [place], [address] CA,Total 8.8 mg/dL Normal 8.5-10.1 [facility] Comment on above: Performed By: #### L 500.4050, L500.4100, L502.0250 ####[facility] [address] [place], [address] Chloride [Moles/Vol] 100 mmol/L Normal 98-107 [facility] Comment on above: Performed By: #### L 500.4050, L500.4100, L502.0250 ####[facility] [address] [place], [address] CO2 [Moles/Vol] 30.0 mmol/L Normal 21.0-32.0 [facility] Comment on above: Performed By: #### L 500.4050, L500.4100, L502.0250 ####[facility] [address] [place], [address] Creatinine [Mass/Vol] 1.10 mg/dL High 0.55-1.02 [facility] Comment on above: Result Comment: The validity of the calculated GFR GFRAA in patients over 70 years has not been determined. Clinical correlation is essential. Performed By: #### L 500.4050, L500.4100, L502.0250 ####[facility] [address] [place], [address] EST GFR - AA 63 mL/min Normal >60 [facility] Comment on above: Result Comment: Afri can Thai GFR Calc Performed By: #### L 500.4050, L500.4100, L502.0250 ####[facility] [address] [place], [address] GAP 4 Low 5-15 [facility] Comment on above: Performed By: #### L 500.4050, L500.4100, L502.0250 ####[facility] [address] [place], [address] GFR/1.73 sq M.predicted among non-blacks MDRD (S/P/Bld) [Vol rate/Area] 52 mL/min/{1.73_m2} Low >60 [facility] Comment on above: Result Comment: Non- GFR Calc Performed By: #### L 500.4050, L500.4100, L502.0250 ####[facility] [address] [place], [address] Globulin (S) [Mass/Vol] 4.1 g/dL Normal 2.2-4.2 [facility] Comment on above: Performed By: #### L 500.4050, L500.4100, L502.0250 ####[facility] [address] [place], [address] Glucose [Mass/Vol] 410 mg/dL High 74-106 [facility] Comment on above: Result Comment: Gluc ose result greater than or equal to 200 mg/dL suggests DIABETES MELLITUS per A.D.A. criteria. Performed By: #### L 500.4050, L500.4100, L502.0250 ####[facility] [address] [place], [address] Potassium [Moles/Vol] 4.0 mmol/L Normal 3.5-5.1 [facility] Comment on above: Performed By: #### L 500.4050, L500.4100, L502.0250 ####[facility] [address] [place], [address] Sodium [Moles/Vol] 134 mmol/L Low 136-145 [facility] Comment on above: Performed By: #### L 500.4050, L500.4100, L502.0250 ####[facility] [address] [place], [address] T PROT 7.3 g/dL Normal 6.4-8.2 [facility] Comment on above: Performed By: #### L 500.4050, L500.4100, L502.0250 ####[facility] [address] [place], [address] Urea nitrogen [Mass/Vol] 13 mg/dL Normal 7-18 [facility] Comment on above: Performed By: #### L 500.4050, L500.4100, L502.0250 ####[facility] [address] [place], [address] Endocrinology Visit Reporton 07-16-2024 Endocrinology Visit Report [facility] [address] [place] [address]. [address] [place] [address] OFFICE VISIT Date of Service: 07/16/24 MR#: [id number] Acct: [id number] Name: MANISHA KEITH Rep #: [id number] : 1950 Provider: Usman Hartman Age/Sex: 74/F Location: [facility] Status: Signed Intake Vital Signs 05/14/24 11:37 07/16/24 11:28 Height 5 ft 2 in 5 ft 2 in Weight: 190 lb 2 oz 190 lb BMI 34.7 34.7 BP 145/80 H 144/82 H Blood Pressure Location Rt brachial Rt brachial Position Sitting Sitting Pulse 84 88 Pulse Source Monitor Pulse Oximetry (%) 90 93 Oxygen Delivery Method room air room air Intake Visit Reasons: 2 M FU Chief Complaint: Diabetes Is patient in pain?: No Allergies JESENIA Inhibitors Allergy (Intermediate, Verified 04/06/24 11:33) Cough adhesive tape Allergy (Intermediate, Verified 04/06/24 11:33) blisters dulaglutide (From Trulicity) Allergy (Intermediate, Verified 04/06/24 11:33) Gastroparesis Dressing: Non-Medicated (elastic) Allergy (Verified 04/06/24 11:33) Rash NSAIDS (Non-Steroidal Anti-Inflamma Allergy (Verified 04/06/24 11:33) Other Latex, Natural Rubber Adverse Reaction (Mild, Verified 04/06/24 11:33) RASH Medications ???Medication ???Instructions ???Recorded ???Confirmed ???Type fluticasone propionate 50 1 spray intranasal DAILY PRN NASAL 01/30/14 07/16/24 History mcg/actuation nasal CONGESTION spray,suspension methotrexate sodium 2.5 mg tablet 20 mg PO TEJADA BREAST CANCER 04/16/17 07/16/24 History escitalopram oxalate 10 mg tablet 10 mg PO DAILY PRN DEPRESSION 06/05/21 07/16/24 History (Lexapro) folic acid 1 mg tablet 2 mg PO DAILY SUPPLEMENT 06/05/21 07/16/24 History hydrochlorothiazide 12.5 mg capsule 12.5 mg PO DAILY BLOOD PRESSURE 06/05/21 07/16/24 History losartan 100 mg tablet 100 mg PO DAILY BLOOD PRESSURE 06/05/21 07/16/24 History aspirin 81 mg tablet,delayed 81 mg PO DAILY HEART HEALTH 02/05/22 07/16/24 History release (Adult Low Dose Aspirin) gabapentin 300 mg capsule 300 mg PO QHS NEUROPATHY 02/05/22 07/16/24 History oxybutynin chloride 10 mg 20 mg PO DAILY OVERACTIVE BLADDER 02/05/22 07/16/24 History tablet,extended release 24 hr metoprolol succinate 100 mg 100 mg PO DAILY BLOOD PRESSURE 02/24/22 07/16/24 History tablet,extended release 24 hr esomeprazole magnesium 40 mg 40 mg PO DAILY ACID REFLUX 11/26/22 07/16/24 History capsule,delayed release (Nexium) pen needle, diabetic 32 gauge x #100 ea 11/26/22 07/16/24 Rx (BD Ultra-Fine Tish Pen Needle) atorvastatin 20 mg tablet 20 mg PO DAILY CHOLESTEROL 06/21/23 07/16/24 History metaxalone 800 mg tablet 800 mg PO TID PRN MUSCLE CRAMPS 06/21/23 07/16/24 History blood sugar diagnostic (OneTouch #150 ea 11/15/23 07/16/24 Rx Verio test strips) insulin regular hum U-500 conc 500 See Rx Instructions subcut TIDCM 12/28/23 07/16/24 History unit/mL(3 mL) subcut pen (Humulin diabetes R U-500 (Conc) Insulin Kwikpen) amlodipine 5 mg tablet (Norvasc) 5 mg PO DAILY #30 tabs 04/06/24 07/16/24 Rx Have you fallen in the past year?: Yes PFSH Medical History Depression Ambulates with cane High cholesterol CPAP (continuous positive airway pressure) dependence Closed left hip fracture Osteoporosis Former smoker Sleep apnea Asthma COPD (chronic obstructive pulmonary disease) Essential hypertension History of gastrostomy tube placement Wears glasses Wears dentures History of Clostridium difficile infection Cancer Anxiety Easy bruising Injury of head and neck Restless legs Loss of consciousness Dietary restriction Shortness of breath on exertion Chronic cough History of stress test History of edema Leg cramps History of Holter monitoring Cardiology follow-up encounter History of vaginal delivery Urinary incontinence Internal hemorrhoids History of cervical cancer Diverticulosis Obesity Vision problems Pancreatitis Osteoarthritis Neuropathy IBS (irritable bowel syndrome) Recurrent infections Hives Calcium deficiency Gastrointestinal problem Gall stone Chronic bronchitis Carpal tunnel syndrome Cataract Breast cancer Breast lump UTI (urinary tract infection) Back problem Arthritis Seasonal allergies GERD (gastroesophageal reflux disease) OAB (overactive bladder) Rhabdomyolysis (04/2017) MSSA (methicillin susceptible Staphylococcus aureus) pneumonia Allergic rhinitis Diabetes mellitus, type II Inflammatory polyarthritis Surgical History History of repair of left hip joint History of ERCP S/P cholecystectomy History of nasal cauterization History of colonoscopy History of appendectomy History of (more content not included)... Normal [facility] LIPID PANEL (OUTSIDE)on LDL:HDL Ratio [facility] Non-HDL Cholesterol [facility] TC:HDL Ratio [facility] VLDL Cholesterol 26 [facility] Lipid Profileon 07-16-2024 Cholesterol [Mass/Vol] 224 mg/dL High [address] [place] Comment on above: Result Comment: <200 mg/dL Desirable 200-240 mg/dL Borderline >240 mg/dL High Risk Performed By: #### L 500.4050, L500.4100, L502.0250 ####[facility] [address] [place], [address] Cholesterol in HDL [Mass/Vol] 71 mg/dL Normal [facility] Comment on above: Result Comment: The drugs N-Acetylcysteine and Metamizole may falsely depress this assay. Reference Range HDL <40 mg/dL Low HDL Cholesterol HDL >or= 60 mg/dL High HDL Cholesterol Performed By: #### L 500.4050, L500.4100, L502.0250 ####[facility] [address] [place], [address] Cholesterol in LDL [Mass/Vol] 127 mg/dL Normal 0-130 [facility] Comment on above: Performed By: #### L 500.4050, L500.4100, L502.0250 ####[facility] [address] [place], [address] Cholesterol in VLDL [Mass/Vol] 26 mg/dL Normal 5-40 [facility] Comment on above: Performed By: #### L 500.4050, L500.4100, L502.0250 ####[facility] [address] [place], [address] Triglyceride [Mass/Vol] 129 mg/dL Normal C [facility] Comment on above: Result Comment: The drugs N-Acetylcysteine and Metamizole may falsely depress this assay. Serum Triglycerides Reference Interval Normal <150 mg/dL Borderline high 150 - 199 mg/dL High 200 - 499 mg/dL Very High > or = 500 mg/dL Performed By: #### L 500.4050, L500.4100, L502.0250 ####[facility] [address] [place], [address] Microalb:Creat Ratio,Random URon 07-16-2024 Creatinine [Mass/Vol] 66.70 mg/dL Normal NO RAN GE EST. [facility] Comment on above: Performed By: #### L 500.4050, L500.4100, L502.0250 ####[facility] [address] [place], [address] MALB:CRE 31.2 mg/g CRE High <30 mg/g CRE [facility] Comment on above: Performed By: #### L 500.4050, L500.4100, L502.0250 ####[facility] [address] [place], [address] MICROALBUMIN,UR 20.8 mg/L Normal NO RANGE EST. [facility] Comment on above: Performed By: #### L 500.4050, L500.4100, L502.0250 ####[facility] [address] [place], [address] CBC W/Diff, Automatedon 11- Absolute Lymph 2.15 X10 3/uL Normal 0.83-4.51 [facility] Comment on above: Performed By: #### L 500.4050, L100.0100 #### [facility] [address] [place], [address] Absolute Neut 4.9 X10 3/uL Normal 2.0-7.7 [facility] Comment on above: Performed By: #### L 500.4050, L100.0100 #### [facility] [address] [place], [address] Basophils/100 WBC (Bld) 0.8 % Normal 0-1 [facility] Comment on above: Performed By: #### L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 Yunier Owen MD - Fully Assessed Reason for Visit: Medication Problem [65] Prescriptions as of 04/13/2024 - Omeprazole 20 mg TbEC Take by mouth. - aspirin, enteric coated (ASPIRIN, ENTERIC COATED) 81 mg EC tablet Take 81 mg by mouth once daily. - sxrzsxgtnm-nwfbxnox-gr rmoterol (BREZTRI) 160-9-4.8 mcg/actuation HFA aerosol inhaler Inhale 2 Puffs as instructed two times a day. - verapamil SR (CALAN SR) 120 mg CR tablet Take 1 tablet by mouth daily at bedtime. - HUMULIN R U-500, CONC, KWIKPEN 500 unit/mL (3 mL) inpn 40 units 12pm /10 units sq at 5pm/ 25 units at 10pm. Per Dr. Chi. - oxybutynin ER (DITROPAN XL) 10 mg 24 hr tablet Take 2 tablets by mouth once daily. - CPAP/BIPAP/OTHER Type .CPAPSettings into a note to see current settings/supplies/DME information. - metoprolol succinate ER (TOPROL XL) 100 mg Take 1 tablet by mouth once daily. - losartan (COZAAR) 100 mg tablet Take 1 tablet by mouth once daily. - Blood-Glucose Meter,Continuous (FREESTYLE MITZI 3 READER) misc Use as directed. - Blood-Glucose Sensor (FREESTYLE MITZI 3 SENSOR) krystyna Use as directed - escitalopram oxalate (LEXAPRO) 10 mg tablet Take 1 tablet by mouth once daily. - FOLDING WALKER WITH 5 WHEELS Use with ambulation - blood sugar diagnostic (BLOOD GLUCOSE TEST) test strip Test blood sugar(s) 3 times daily. Dx: Type 2 DM - Uncontrolled E11.65 Insulin: Yes - Blood-Glucose Meter monitoring kit Glucose Meter of Choice - Kit - Dx: Type 2 DM - Controlled E11.9 Insulin: Yes - Lancets Test blood sugar(s) 3 times daily. Dx: Type 2 DM - Controlled E11.9 Insulin: Yes - fluticasone (FLONASE) 50 mcg/actuation nasal spray USE 1 SPRAY IN EACH NOSTRIL ONCE DAILY AT BEDTIME DIRECTED - cetirizine (ZYRTEC) 10 mg tablet Take 1 tablet by mouth once daily. - hydroCHLOROthiazide 12.5 mg capsule Take 1 capsule by mouth once daily. - gabapentin (NEURONTIN) 300 mg capsule Take 1 capsule by mouth daily at bedtime. - FOLIC ACID ORAL Take by mouth. - atorvastatin (LIPITOR) 20 mg tablet Take 1 tablet by mouth daily at bedtime. For cholesterol. - methotrexate 2.5 mg tablet Take 20 mg by mouth every Tuesday. - melatonin 3 mg tablet Take 1 tablet at 9PM nightly. - insulin needles, DISPOSABLE, (PEN NEEDLE) 31 gauge x 5/16 Use one needle per dose. 4 per day. - ondansetron orally disintegrating (ZOFRAN ODT) 4 mg disintegrating tablet DISSOLVE 1 TABLET IN MOUTH THREE TIMES DAILY NEEDED FOR NAUSEA AND VOMITING - blood sugar diagnostic (ONETOUCH VERIO TEST STRIPS) test strip Test blood sugar(s) 3-4 times daily. Dx: Other DM Code E11.319 Insulin: Yes - Cholecalciferol, Vitamin D3, 50 mcg (2,000 unit) cap Take 1 capsule by mouth once daily. - albuterol HFA (PROAIR HFA) 90 mcg/actuation inhaler Inhale 2 Puffs as instructed every 4 hours as needed. - blood sugar diagnostic (BLOOD GLUCOSE TEST) test strip Test blood sugar(s) 3 times daily. Dx: Type 2 DM - Controlled E11.9 Insulin: YES - Blood-Glucose Meter monitoring kit Glucose Meter of Choice - Kit - Dx: Type 2 DM - Controlled E11.9 - COMPOUNDED PRESCRIPTION Insulin needles-1/2 cc for 100 u Use up to 4 a day - fluorometholone (FML LIQUID FILM) 0.1 % ophthalmic suspension Use 2 Drops in the left eye twice daily. Meds Comments as of 02/06/2021: Pt states she no longer takes baby aspirin, skelaxin, to reclast, no prednisone, No MVI, 02/06/2021 TP Problem List As Of Date 04/13/2024 Noted Resolved BENIGN HYPERTENSION [I10] 05/28/2005 09/01/2007 Hyperlipidemia [E78.5] 05/28/2005 LOC PRIM OSTEOART-PELVIS [M16.10] 05/28/2005 06/04/2006 Allergic rhinitis [J30.9] 05/28/2005 Diabetes (HCC) [E11.9] 05/28/2005 (more content not included)... [facility] MAN[facility] ([id number]) 1950 F Date Time Provider Department 04/13/24 YUNIER OWEN During your visit today, we recorded the following information about you: Ghislaine Yoon RN 04/13/2024 3:00 PM Signed Manisha called, verified name and date of . She went to pickup her Nexium at [facility] pharmacy and was told that Dr. Owen discontinued it when she was seen on 04/03/2024, but Manisha was never told. She would like to speak with someone in the pulmonary office. Ghislaine Yoon RN April 13, 2024 3:00 PM Mariia Mart LPN 04/13/2024 3:20 PM Signed Duplicate encounter Mariia Mart LPN Allergies As of Date: 04/13/2024 Noted Allergy Reaction JESENIA INHIBITORS 03/27/2014 3 - Cough NSAIDS (NON-STEROIDAL ANTI-INFLAM*05/09/2009 8 - GI Upset TAPE (ADHESIVE TAPE (ROSINS)) 10/26/2016 14 - Other: See Comments Comments: Blisters from surgical tape TRULICITY (DULAGLUTIDE) 05/04/2021 14 - Other: See Comments Comments: Gastroparesis Date Reviewed: 04/03/2024 Reviewed by: Yunier Owen MD - Fully Assessed Reason for Visit: Patient Question [1477] Prescriptions as of 04/13/2024 - Omeprazole 20 mg TbEC Take by mouth. - aspirin, enteric coated (ASPIRIN, ENTERIC COATED) 81 mg EC tablet Take 81 mg by mouth once daily. - entayjtrph-vqpopdrz-rb rmoterol (BREZTRI) 160-9-4.8 mcg/actuation HFA aerosol inhaler Inhale 2 Puffs as instructed two times a day. - verapamil SR (CALAN SR) 120 mg CR tablet Take 1 tablet by mouth daily at bedtime. - HUMULIN R U-500, CONC, KWIKPEN 500 unit/mL (3 mL) inpn 40 units 12pm /10 units sq at 5pm/ 25 units at 10pm. Per Dr. Chi. - oxybutynin ER (DITROPAN XL) 10 mg 24 hr tablet Take 2 tablets by mouth once daily. - CPAP/BIPAP/OTHER Type .CPAPSettings into a note to see current settings/supplies/DME information. - metoprolol succinate ER (TOPROL XL) 100 mg Take 1 tablet by mouth once daily. - losartan (COZAAR) 100 mg tablet Take 1 tablet by mouth once daily. - Blood-Glucose Meter,Continuous (FREESTYLE MITZI 3 READER) misc Use as directed. - Blood-Glucose Sensor (FREESTYLE MITZI 3 SENSOR) krystyna Use as directed - escitalopram oxalate (LEXAPRO) 10 mg tablet Take 1 tablet by mouth once daily. - FOLDING WALKER WITH 5 WHEELS Use with ambulation - blood sugar diagnostic (BLOOD GLUCOSE TEST) test strip Test blood sugar(s) 3 times daily. Dx: Type 2 DM - Uncontrolled E11.65 Insulin: Yes - Blood-Glucose Meter monitoring kit Glucose Meter of Choice - Kit - Dx: Type 2 DM - Controlled E11.9 Insulin: Yes - Lancets Test blood sugar(s) 3 times daily. Dx: Type 2 DM - Controlled E11.9 Insulin: Yes - fluticasone (FLONASE) 50 mcg/actuation nasal spray USE 1 SPRAY IN EACH NOSTRIL ONCE DAILY AT BEDTIME DIRECTED - cetirizine (ZYRTEC) 10 mg tablet Take 1 tablet by mouth once daily. - hydroCHLOROthiazide 12.5 mg capsule Take 1 capsule by mouth once daily. - gabapentin (NEURONTIN) 300 mg capsule Take 1 capsule by mouth daily at bedtime. - FOLIC ACID ORAL Take by mouth. - atorvastatin (LIPITOR) 20 mg tablet Take 1 tablet by mouth daily at bedtime. For cholesterol. - methotrexate 2.5 mg tablet Take 20 mg by mouth every Tuesday. - melatonin 3 mg tablet Take 1 tablet at 9PM nightly. - insulin needles, DISPOSABLE, (PEN NEEDLE) 31 gauge x 5/16 Use one needle per dose. 4 per day. - ondansetron orally disintegrating (ZOFRAN ODT) 4 mg disintegrating tablet DISSOLVE 1 TABLET IN MOUTH THREE TIMES DAILY NEEDED FOR NAUSEA AND VOMITING - blood sugar diagnostic (Jobs The WordUCH VERIO TEST STRIPS) test strip Test blood sugar(s) 3-4 times daily. Dx: Other DM Code E11.319 Insulin: Yes - Cholecalciferol, Vitamin D3, 50 mcg (2,000 unit) cap Take 1 capsule by mouth once daily. - albuterol HFA (PROAIR HFA) 90 mcg/actuation inhaler Inhale 2 Puffs as instructed every 4 hours as needed. - blood sugar diagnostic (BLOOD GLUCOSE TEST) test strip Test blood sugar(s) 3 times daily. Dx: Type 2 DM - Controlled E11.9 Insulin: YES - Blood-Glucose Meter monitoring kit Glucose Meter of Choice - Kit - Dx: Type 2 DM - Controlled E11.9 - COMPOUNDED PRESCRIPTION Insulin needles-1/2 cc for 100 u Use up to 4 a day - fluorometholone (FML LIQUID FILM) 0.1 % ophthalmic suspension Use 2 Drops in the left eye twice daily. Meds Comments as of 02/06/2021: Pt states she no longer takes baby aspirin, skelaxin, to reclast, no prednisone, No MVI, 02/06/2021 TP Problem List As Of Date 04/13/2024 Noted Resolved BENIGN HYPERTENSION [I10] 05/28/2005 09/01/2007 Hyperlipidemia [E78.5] 05/28/2005 LOC PRIM OSTEOART-PELVIS [M16.10] 05/28/2005 06/04/2006 Allergic rhinitis [J30.9] 05/28/2005 Diabetes (HCC) [E11.9] 05/28/2005 06/27/2015 Unspecified sleep apnea [G47.30] 05/28/2005 12/07/2013 Osteoarthritis [M19.90] 05/28/2005 Irritable bowel syn (more content not included)... Normal [facility] 04-06-2024 [facility] MANISHA KEITH ([id number]) 1950 F Date Time Provider Department [facility] your visit today, we recorded the following information about you: Areli Salas LPN 04/06/2024 4:29 PM Signed ----- Message from Claire Lancaster sent at 04/06/2024 12:36 PM EDT ----- Renal function is okay. Blood sugar still high. Areli Salas LPN 04/06/2024 4:34 PM Signed Left message to call and speak with nurse. Areli Salas LPN 04/11/2024 10:08 AM Signed Patient notified. Allergies As of Date: 04/06/2024 Noted Allergy Reaction JESENIA INHIBITORS 03/27/2014 3 - Cough NSAIDS (NON-STEROIDAL ANTI-INFLAM*05/09/2009 8 - GI Upset TAPE (ADHESIVE TAPE (ROSINS)) 10/26/2016 14 - Other: See Comments Comments: Blisters from surgical tape TRULICITY (DULAGLUTIDE) 05/04/2021 14 - Other: See Comments Comments: Gastroparesis Date Reviewed: 04/03/2024 Reviewed by: Yunier Owen MD - Fully Assessed Reason for Visit: Results [95] Prescriptions as of 04/11/2024 - Omeprazole 20 mg TbEC Take by mouth. - aspirin, enteric coated (ASPIRIN, ENTERIC COATED) 81 mg EC tablet Take 81 mg by mouth once daily. - wugqmpbnsv-pmvmphcj-ot rmoterol (BREZTRI) 160-9-4.8 mcg/actuation HFA aerosol inhaler Inhale 2 Puffs as instructed two times a day. - verapamil SR (CALAN SR) 120 mg CR tablet Take 1 tablet by mouth daily at bedtime. - HUMULIN R U-500, CONC, KWIKPEN 500 unit/mL (3 mL) inpn 40 units 12pm /10 units sq at 5pm/ 25 units at 10pm. Per Dr. Chi. - oxybutynin ER (DITROPAN XL) 10 mg 24 hr tablet Take 2 tablets by mouth once daily. - CPAP/BIPAP/OTHER Type .CPAPSettings into a note to see current settings/supplies/DME information. - metoprolol succinate ER (TOPROL XL) 100 mg Take 1 tablet by mouth once daily. - losartan (COZAAR) 100 mg tablet Take 1 tablet by mouth once daily. - Blood-Glucose Meter,Continuous (FREESTYLE MITZI 3 READER) [facility] Use as directed. - Blood-Glucose Sensor (FREESTYLE MITZI 3 SENSOR) krystyna Use as directed - escitalopram oxalate (LEXAPRO) 10 mg tablet Take 1 tablet by mouth once daily. - FOLDING WALKER WITH 5 WHEELS Use with ambulation - blood sugar diagnostic (BLOOD GLUCOSE TEST) test strip Test blood sugar(s) 3 times daily. Dx: Type 2 DM - Uncontrolled E11.65 Insulin: Yes - Blood-Glucose Meter monitoring kit Glucose Meter of Choice - Kit - Dx: Type 2 DM - Controlled E11.9 Insulin: Yes - Lancets Test blood sugar(s) 3 times daily. Dx: Type 2 DM - Controlled E11.9 Insulin: Yes - fluticasone (FLONASE) 50 mcg/actuation nasal spray USE 1 SPRAY IN EACH NOSTRIL ONCE DAILY AT BEDTIME DIRECTED - cetirizine (ZYRTEC) 10 mg tablet Take 1 tablet by mouth once daily. - hydroCHLOROthiazide 12.5 mg capsule Take 1 capsule by mouth once daily. - gabapentin (NEURONTIN) 300 mg capsule Take 1 capsule by mouth daily at bedtime. - FOLIC ACID ORAL Take by mouth. - atorvastatin (LIPITOR) 20 mg tablet Take 1 tablet by mouth daily at bedtime. For cholesterol. - methotrexate 2.5 mg tablet Take 20 mg by mouth every Tuesday. - melatonin 3 mg tablet Take 1 tablet at 9PM nightly. - insulin needles, DISPOSABLE, (PEN NEEDLE) 31 gauge x 5/16 Use one needle per dose. 4 per day. - ondansetron orally disintegrating (ZOFRAN ODT) 4 mg disintegrating tablet DISSOLVE 1 TABLET IN MOUTH THREE TIMES DAILY NEEDED FOR NAUSEA AND VOMITING - blood sugar diagnostic (ONETOUCH VERIO TEST STRIPS) test strip Test blood sugar(s) 3-4 times daily. Dx: Other DM Code E11.319 Insulin: Yes - Cholecalciferol, Vitamin D3, 50 mcg (2,000 unit) cap Take 1 capsule by mouth once daily. - albuterol HFA (PROAIR HFA) 90 mcg/actuation inhaler Inhale 2 Puffs as instructed every 4 hours as needed. - blood sugar diagnostic (BLOOD GLUCOSE TEST) test strip Test blood sugar(s) 3 times daily. Dx: Type 2 DM - Controlled E11.9 Insulin: YES - Blood-Glucose Meter monitoring kit Glucose Meter of Choice - Kit - Dx: Type 2 DM - Controlled E11.9 - COMPOUNDED PRESCRIPTION Insulin needles-1/2 cc for 100 u Use up to 4 a day - fluorometholone (FML LIQUID FILM) 0.1 % ophthalmic suspension Use 2 Drops in the left eye twice daily. Meds Comments as of 02/06/2021: Pt states she no longer takes baby aspirin, skelaxin, to reclast, no prednisone, No MVI, 02/06/2021 TP Problem List As Of Date 04/06/2024 Noted Resolved BENIGN HYPERTENSION [I10] 05/28/2005 09/01/2007 Hyperlipidemia [E78.5] 05/28/2005 LOC PRIM OSTEOART-PELVIS [M16.10] 05/28/2005 06/04/2006 Allergic rhinitis [J30.9] 05/28/2005 Diabetes (HCC) [E11.9] 05/28/2005 06/27/2015 Unspecified sleep apnea [G47.30] 05/28/2005 12/07/2013 Osteoarthritis [M19.90] 05/28/2005 Irritable bowel syndrome [K58.9] 06/04/2006 11/25/2016 Dysuria [R30.0] 01/02/2007 05/25/2016 Unspecified sinusitis (chronic) [J32.9] 06/01/2007 05/25/2016 Other sp (more content not included)... Normal [facility] Basic metabolic 2000 panelon 08-20-2024 Anion gap [Moles/Vol] 10 mmol/L Normal 8-15 [facility] Comment on above: Order Comment: Speci men Type: BLOOD SPECIMENOrdering Facility: [facility] Address: [address] [place] [address] Performed By: #### 2 4321-2 ####[facility] LABCLIA [id number] [place] [address] [place] Calcium [Mass/Vol] 9.1 mg/dL Normal 8.5-10.2 [facility] Comment on above: Order Comment: Speci men Type: BLOOD SPECIMENOrdering Facility: [facility] Address: [address] [place] [address] Performed By: #### 2 4321-2 ####[facility] LABCLIA [id number] [place] [address] [place] Chloride [Moles/Vol] 99 mmol/L Normal 98-107 [facility] Comment on above: Order Comment: Speci men Type: BLOOD SPECIMENOrdering Facility: [facility] Address: [address] [place] [address] Performed By: #### 2 4321-2 ####[facility] LABCLIA [id number] [place] [address] [place] CO2 [Moles/Vol] 28 mmol/L Normal 22-30 [facility] Comment on above: Order Comment: Speci men Type: BLOOD SPECIMENOrdering Facility: [facility] Address: [address] [place] [address] Performed By: #### 2 4321-2 ####[facility] LABCLIA [id number] [place] [address] [place] Creatinine [Mass/Vol] 0.91 mg/dL Normal 0.58-0.96 [facility] Comment on above: Order Comment: Speci men Type: BLOOD SPECIMENOrdering Facility: [facility] Address: [address] [place] [address] Performed By: #### 2 4321-2 ####[facility] LABCLIA [id number] [place] [address] [place] Creatinine and Glomerular filtration rate.predicted panel (S/P/Bld) 68 mL/min/1.73m??? Normal >=60 [facility] Comment on above: Order Comment: Miguel julian Type: BLOOD SPECIMENOrdering Facility: [facility] Address: [address] [place] [address] Result Comment: Suzanne mated Glomerular Filtration Rate (eGFR) is calculated using the 2020 CKD-EPI creatinine equation. This equation utilizes serum creatinine, sex, and age as parameters. The creatinine assay has traceable calibration to isotope dilution-mass spectrometry. Refer to KDIGO guidelines for clinical interpretation. In patients with unstable renal function, e.g. those with acute kidney injury, the eGFR may not accurately reflect actual GFR. Performed By: #### 2 4321-2 ####[facility] LABCLIA [id number] [place] [address] [place] Glucose [Mass/Vol] 258 mg/dL High 74-99 [facility] Comment on above: Order Comment: Miguel julian Type: BLOOD SPECIMENOrdering Facility: [facility] Address: [address] [place] [address] Result Comment: The [place] Diabetes Association (ADA) provides guidance for cutoff values for fasting glucose and random glucose. The ADA defines fasting as no caloric intake for at least 8 hours. Fasting plasma glucose results between 100 to 125 [...] Standards of Medical Care in Diabetes 2016, [place] Diabetes Association. Diabetes Care. 2016.39(Suppl 1). Performed By: #### 2 4321-2 ####[facility] LABCLIA [id number] [place] [address] [place] Potassium [Moles/Vol] 4.7 mmol/L Normal 3.7-5.1 [facility] Comment on above: Order Comment: Speci men Type: BLOOD SPECIMENOrdering Facility: [facility] Address: [address] [place] [address] Performed By: #### 2 4321-2 ####[facility] LABCLIA [id number] [place] [address] [place] Sodium [Moles/Vol] 137 mmol/L Normal 136-144 [facility] Comment on above: Order Comment: Speci men Type: BLOOD SPECIMENOrdering Facility: [facility] Address: [address] [place] [address] Performed By: #### 2 4321-2 ####[facility] LABCLIA [id number] [place] [address] [place] Urea nitrogen [Mass/Vol] 19 mg/dL Normal 7-21 [facility] Comment on above: Order Comment: Speci men Type: BLOOD SPECIMENOrdering Facility: [facility] Address: [address] [place] [address] Performed By: #### 2 4321-2 ####[facility] LABIA [id number] [place] [address] [place] CNOVon 04-03-2024 CNOV Office Visit (PULMWS ) MANISHA KEITH ([id number]) 1950 F Date Time Provider Department 04/03/24 12:45 PM BROWN, YUNIER PAULA PULMWS During your visit today, we recorded the following information about you: Pulse Respiration Blood pressure Weight 74/minute 15/minute 126/62 83.9 kg Yunier Owen MD 04/03/2024 1:58 PM Signed . [facility]piratory [place] Note Patient name: Manisha Keith PCP: Ilir Hernández MD CC: Hospital follow-up HPI: Manisha Keith 73 year old female former [id number]-ntpe smoker, quitting in 2000 with PMH significant for obesity, childhood asthma, allergies, HLD, inflammatory arthritis on methotrexate, RICARDO on CPAP, DM2, HTN, GERD, osteoporosis and lung nodules. She was seen in pulmonary clinic for chronic cough which was felt to be multifactorial including possible asthma, GERD and upper airway cough syndrome. Laboratory testing pertinent for peripheral eosinophilia, methacholine challenge testing officially negative but patient had an FEV1 drop of almost 20% at last dose of methacholine, chest imaging notable for right upper lobe groundglass nodule. Started on inhaled therapy with Trelegy Ellipta. Unable to afford inhaled therapy so she has not been on any medication since her last visit. Consulted interventional pulmonary for possible navigational bronchoscopy. Dr. Eldridge opined that nodule appeared stable and recommended repeat imaging at 1 year with superdimension bronchoscopy protocol which is due in September 2024. Since last office visit, patient was hospitalized at [facility] in November for COPD exacerbation. She had a CTA chest performed at that time which showed stability of her nodule. She was treated for pneumonia although there was no clear infiltrate on chest CT, more consistent with atelectasis. She was to follow-up at that time but in the interim developed acute cholecystitis requiring cholecystectomy and more recently hip fracture due to a fall. From a pulmonary standpoint she continues to have some cough more prominent in the morning associated with some clear to yellow sputum production. He has significant sinus congestion, facial pressure and drainage. Cough does not occur throughout the day. No wheezing, chest pain or significant dyspnea. DATA: Reviewed EMR and images from [facility] Imaging / Diagnostic Studies: [facility] Imaging Services [address] [place] [address] CTA Chest W/WO Contrast MR#: [id number] Acct: [id number] Name: MANISHA KEITH Rep #: [id number] : 1950 F 73 PCP: Dr. Ilir Hernández MD Status: REG ER Study: CTA Chest W/WO Contrast Date of Exam: 11/17/23 STUDY: CTA CHEST REASON FOR EXAM: Female, 73 years old. Hypoxia, recent surgery COMPARISON: Comparison is made with prior study dated June 21, 2023. Comparison is made with prior chest radiograph done earlier today. FINDINGS: Normal enhancement of the main pulmonary artery and right and left pulmonary arteries. Normal enhancement of the bilateral peripheral pulmonary arteries. There is no demonstrated pulmonary embolism. Normal thoracic aorta and visualized great vessels. There is no demonstrated aortic dissection. Minimal anterior pericardial thickening. There are calcifications of the coronary arteries. There are visualized mediastinal lymph nodes, which are within normal size limits, and with normal morphology. Normal hilar regions. Normal visualized trachea and bronchi. The lungs are well expanded. Stable 1.1 cm nodule in the right lung apex. Increased interstitial markings with subpleural blebs in both lower lobes suggestive of a scarring. There has been improvement as compared to prior study. Normal pleura. Normal chest wall structures. There are degenerative changes of thoracic spine. Multiple gallstones. Stable left adrenal adenoma. This measures [address]/CTA Chest W/WO Contrast IMPRESSION: No evidence of pulmonary embolism. Findings suggestive of scarring at the lung bases with superimposed atelectasis. Cholelithiasis. Stable 2 cm left adrenal adenoma. I personally reviewed the images which shows stability of groundglass right upper lobe nodule and small left upper lobe subpleural nodule Chest CT 09/2023: PAST MEDICAL HISTORY No date: Allergic rhinitis, cause unspecified No date: Arthritis No date: Asthma Comment: Childhood asthma No date: Breast cancer (HCC) Comment: age 34-had lump, cancerous cells. no issues since, left No date: Diverticulosis of colon (without mention of hemorrhage) No date: Ground glass opacity present on imaging of lung 2011: Heme positive stool No date: History of cervical cancer Comment: regular Paps for life 2011: Hyperlipidemia No date: Inflammatory polyarthritis (HCC) Comment: Dr. Johnson (more content not included)... Normal [facility] UA DIP, URINE (POC)on 2023 BILIRUBIN UA (POCT) Negative Negative [facility] CLARITY UA (POCT) [facility] COLOR UA (POCT) [place] [facility] GLUCOSE UA (POCT) 500 mg/dL Abnormal Negative [facility] Hemoglobin Ql (U) Negative Negative [facility] Interpretation and review of laboratory results Abnormal [facility] KETONE UA (POCT) Trace Negative mg/dL [facility] LEUKOCYTES UA (POCT) Negative Negative [facility] NITRITE UA (POCT) Negative Negative [facility] PH UA (POCT) 7.0 4.5 - 8.0 [facility] Protein Ql (U) Negative Negative mg/dL [facility] SPECIFIC GRAVITY UA (POCT) 1.015 1.005 - 1.030 [facility] UROBILINOGEN UA (POCT) 0.2 Viktoriya l E.U./dL [facility] Location:[facility], [address] [place] [address], [place], [place], [id number] [place] [address] POINT OF CARE [facility] HBA1C (OUTSIDE)on 12-28-2023 HbA1c (Bld) [Mass fraction] 7.5 % [facility] Comment on above: Dr Chi [facility] Absolute lymphocyte countOrd ered By: Rachel Johnson on 11-28-2023 Lymphocytes Auto (Unsp spec) [#/Vol] 1.84 10*3/uL 0.83-4.51 [facility] Automated lymphocyte count a s percentage of total leukocytesOrdered By: Rachel Johnson on 11-28-2023 Lymphocytes/100 WBC Auto (Unsp spec) 21.9 % 19-41 [facility] Basophil percentageOrdered B y: Rachel Johnson on 11-28-2023 Basophil percentage 10.7 g/dL 12.0-15.0 [facility] Basophil percentage 71 mg/dL 74-106 [facility] Basophil percentage 6.9 g/dL 6.4-8.2 [facility] Basophil percentage 0.20 mg/dL 0.20-1.00 [facility] Basophil percentage 140 mmol/L 136-145 [facility] Basophil percentage 4.0 mmol/L 3.5-5.1 [facility] Basophil percentage 105 mmol/L 98-107 [facility] Basophils (Bld) [#/Vol] 8.4 10*3/uL 4.4-11.0 [facility] Basophils (Bld) [#/Vol] 5.3 10*3/uL 2.0-7.7 [facility] Basophils/100 WBC (Bld) 62.6 % 47-70 [facility] Basophils/100 WBC (Bld) 8.9 % 0-10 [facility] Basophils/100 WBC (Bld) 3.8 % 0-5 [facility] Basophils/100 WBC (Bld) 0.4 % 0-1 [facility] Blood platelet adequacy dete ction by light microscopyOrdered By: Rachel Johnson on 11-28-2023 Platelets LM Ql (Bld) ADEQUATE ADEQ [facility] Determination of erythrocyte mean corpuscular volume (MCV)Ordered By: Rachel Johnson on 11-28-2023 MCV (RBC) [Entitic vol] 95.5 fL 81-99 [facility] Erythrocyte distribution wid th ratioOrdered By: Rachel Johnson on 11-28-2023 Erythrocyte distribution width (RBC) [Ratio] 13.9 % 11.6-14.6 [facility] Erythrocyte distribution wid th standard deviationOrdered By: Rachel Johnson on 11-28-2023 Erythrocyte distribution width (RBC) [Entitic vol] 48.4 fL 35.1-43.9 [facility] Hematocrit Auto (Bld) [Volum e fraction]Ordered By: Rachel Johnson on 11-28-2023 Hematocrit (Bld) [Volume fraction] 34.3 % 37-47 [facility] Immature granulocytes/100 WB C Auto (Bld)Ordered By: Rachel Johnson on 11-28-2023 Immature granulocytes/100 WBC (Bld) 2.400 % 0.0-0.9 [facility] Macrocytes detectionOrdered By: Rachel Johnson on 11-28-2023 Macrocytes Ql (Bld) 1+ [facility] No Panel InformationOrdered By: Rachel Johnson on 11-28-2023 29.8 pg 27.0-32.0 [facility] 31.2 g/dL 32-36 [facility] 318 K/mm3 150-450 [facility] 9.2 fl 6.2-12.0 [facility] 0 % 0-5 [facility] 1+ [facility] 63 mL/min >60 [facility] 76 mL/min >60 [facility] 17.2 RATIO 10-20 [facility] 4.1 g/dL 2.2-4.2 [facility] 0.7 RATIO 0.9-2.4 [facility] 89 U/L 45-117 [facility] 22 U/L 13-56 [facility] 30.0 mmol/L 21.0-32.0 [facility] Ovalocyte detectionOrdered B y: Rachel Johnson on 11-28-2023 Ovalocytes LM Ql (Bld) RARE [facility] RBC Auto (Bld) [#/Vol]Ordere d By: Rachel Johnson on 11-28-2023 RBC (Bld) [#/Vol] 3.59 10*6/uL 4.2-5.4 [facility] RBC morphologyOrdered By: Home Johnson on 11-28-2023 RBC morphology finding Nom (Bld) N CHROM NORMAL NORM C&C [facility] Serum or plasma calcium juan urement (mass/volume)Ordered By: Rachel Johnson on 11-28-2023 Calcium [Mass/Vol] 8.8 mg/dL 8.5-10.1 [facility] Serum or plasma creatinine m easurement (mass/volume)Ordered By: Rachel Johnson on 11-28-2023 Creatinine [Mass/Vol] 0.93 mg/dL 0.55-1.02 [facility] Serum or plasma urea nitroge n measurement (mass/volume)Ordered By: Rachel Johnson on 11-28-2023 Urea nitrogen [Mass/Vol] 16 mg/dL 7-18 [facility] Thin prep Papanicolaou smear with manual screeningOrdered By: Rachel Johnson on 11-28-2023 Thin prep Papanicolaou smear with manual screening 2.8 g/dL 3.2-5.0 [facility] Thin prep Papanicolaou smear with manual screening 17 U/L 15-37 [facility] Thin prep Papanicolaou smear with manual screening 5 5-15 [facility] Toxic leukocyte granulation detectionOrdered By: Rachel Johnson on 04-15-2024 Toxic granules LM Ql (Bld) RARE [facility] Absolute lymphocyte countOrd ered By: Anthony Perez on 11-21-2023 Lymphocytes Auto (Unsp spec) [#/Vol] 2.09 10*3/uL 0.83-4.51 [facility] Automated lymphocyte count a s percentage of total leukocytesOrdered By: Anthony Perez on 11-21-2023 Lymphocytes/100 WBC Auto (Unsp spec) 21.7 % 19-41 [facility] Basophil percentageOrdered B y: Anthony Perez on 11-21-2023 Basophil percentage 9.2 g/dL 12.0-15.0 [facility] Basophil percentage 140 mg/dL 74-106 [facility] Basophil percentage 139 mmol/L 136-145 [facility] Basophil percentage 3.7 mmol/L 3.5-5.1 [facility] Basophil percentage 108 mmol/L 98-107 [facility] Basophils (Bld) [#/Vol] 9.6 10*3/uL 4.4-11.0 [facility] Basophils (Bld) [#/Vol] 6.5 10*3/uL 2.0-7.7 [facility] Basophils/100 WBC (Bld) 67.3 % 47-70 [facility] Basophils/100 WBC (Bld) 9.0 % 0-10 [facility] Basophils/100 WBC (Bld) 0.9 % 0-5 [facility] Basophils/100 WBC (Bld) 0.2 % 0-1 [facility] Determination of erythrocyte mean corpuscular volume (MCV)Ordered By: Anthony Perez on 11-21-2023 MCV (RBC) [Entitic vol] 95.4 fL 81-99 [facility] Erythrocyte distribution wid th ratioOrdered By: Anthony Perez on 11-21-2023 Erythrocyte distribution width (RBC) [Ratio] 13.7 % 11.6-14.6 [facility] Erythrocyte distribution wid th standard deviationOrdered By: Anthony Perez on 11-21-2023 Erythrocyte distribution width (RBC) [Entitic vol] 47.0 fL 35.1-43.9 [facility] Hematocrit Auto (Bld) [Volum e fraction]Ordered By: Anthony Perez on 11-21-2023 Hematocrit (Bld) [Volume fraction] 28.8 % 37-47 [facility] Immature granulocytes/100 WB C Auto (Bld)Ordered By: Anthony Perez on 11-21-2023 Immature granulocytes/100 WBC (Bld) 0.900 % 0.0-0.9 [facility] No Panel InformationOrdered By: Anthony Perez on 11-21-2023 30.5 pg 27.0-32.0 [facility] 31.9 g/dL 32-36 [facility] 304 K/mm3 150-450 [facility] 8.8 fl 6.2-12.0 [facility] 0 % 0-5 [facility] 63 mL/min >60 [facility] 76 mL/min >60 [facility] 56.75 ml/min [facility] 28.9 RATIO 10-20 [facility] 27.0 mmol/L 21.0-32.0 [facility] RBC Auto (Bld) [#/Vol]Ordere d By: Anthony Perez on 11-21-2023 RBC (Bld) [#/Vol] 3.02 10*6/uL 4.2-5.4 [facility] Serum or plasma calcium juan urement (mass/volume)Ordered By: Anthony Perez on 11-21-2023 Calcium [Mass/Vol] 8.2 mg/dL 8.5-10.1 [facility] Serum or plasma creatinine m easurement (mass/volume)Ordered By: Anthony Perez on 11-21-2023 Creatinine [Mass/Vol] 0.93 mg/dL 0.55-1.02 [facility] Serum or plasma urea nitroge n measurement (mass/volume)Ordered By: Anthony Perez on 11-21-2023 Urea nitrogen [Mass/Vol] 27 mg/dL 7-18 [facility] Thin prep Papanicolaou smear with manual screeningOrdered By: Jj Whitfield on 11-21-2023 Thin prep Papanicolaou smear with manual screening 64 mg/dL 74-106 [facility] Thin prep Papanicolaou smear with manual screeningOrdered By: Anthony Perez on 11-21-2023 Thin prep Papanicolaou smear with manual screening 4 5-15 [facility] Basophil percentageOrdered B y: Anthony Perez on 11-19-2023 Basophil percentage 4.4 mg/dL 2.5-4.9 [facility] No Panel InformationOrdered By: Anthony Perez on 11-19-2023 2.6 mg/dL 1.6-2.6 [facility] Urine Legionella pneumophila antigen detectionOrdered By: Jj Whitfield on 11-18-2023 L. pneumophila Ag Ql (U) [facility] Absolute lymphocyte countOrd ered By: [place] Jessica on 11-17-2023 Lymphocytes Auto (Unsp spec) [#/Vol] 0.96 10*3/uL 0.83-4.51 [facility] Automated lymphocyte count a s percentage of total leukocytesOrdered By: [place] Jessica on 11-17-2023 Lymphocytes/100 WBC Auto (Unsp spec) 5.6 % 19-41 [facility] Base excessOrdered By: Linda Jessica on 11-17-2023 Base excess Calc (BldV) [Moles/Vol] -1 mmol/L -2-2 [facility] Basophil percentageOrdered B y: [place] Jessica on 11-17-2023 Basophil percentage 25 mmol/L [facility] Basophils/100 WBC (Bld) 95 % 95-99 [facility] Basophils/100 WBC (Bld) 0.5 % 0-1 [facility] Chloride [Moles/Vol] 105 mmol/L 98-107 [facility] Eosinophils/100 WBC (Bld) 2.5 % 0-5 [facility] Glucose [Mass/Vol] 162 mg/dL 74-106 [facility] Comment on above: Fasting Glucose resu lt greater than or equal to 126 mg/dL suggests DIABETES MELLITUS per A.D.A. criteria. Hemoglobin (Bld) [Mass/Vol] 10.5 g/dL 12.0-15.0 [facility] Monocytes/100 WBC (Bld) 5.6 % 0-10 [facility] Neutrophils (Bld) [#/Vol] 14.6 10*3/uL 2.0-7.7 [facility] Neutrophils/100 WBC (Bld) 85.2 % 47-70 [facility] Potassium [Moles/Vol] 3.8 mmol/L 3.5-5.1 [facility] Sodium [Moles/Vol] 138 mmol/L 136-145 [facility] WBC (Bld) [#/Vol] 17.1 10*3/uL 4.4-11.0 [facility] Determination of erythrocyte mean corpuscular volume (MCV)Ordered By: [place] Jessica on 11-17-2023 MCV (RBC) [Entitic vol] 94.8 fL 81-99 [facility] Erythrocyte distribution wid th ratioOrdered By: [place] Jessica on 11-17-2023 Erythrocyte distribution width (RBC) [Ratio] 13.7 % 11.6-14.6 [facility] Erythrocyte distribution wid th standard deviationOrdered By: [place] Jessica on 11-17-2023 Erythrocyte distribution width (RBC) [Entitic vol] 46.8 fL 35.1-43.9 [facility] Gram stain for investigation of transfusion reactionOrdered By: Jj Whitfield on 11-17-2023 Microscopic observation Gram stain Nom (Unsp spec) [facility] Hematocrit Auto (Bld) [Volum e fraction]Ordered By: [place] Jessica on 11-17-2023 Hematocrit (Bld) [Volume fraction] 32.6 % 37-47 [facility] Immature granulocytes/100 WB C Auto (Bld)Ordered By: [place] Jessica on 11-17-2023 Immature granulocytes/100 WBC (Bld) 0.600 % 0.0-0.9 [facility] Comment on above: IG% - Immature Granu locytes (promyelocytes, myelocytes and metamyelocytes) > 1% indicates that a LEFT SHIFT is Present. Laboratory - Chemistry and C hemistry - challengeOrdered By: [place] Jessica on 11-17-2023 CO2 [Moles/Vol] 24.0 mmol/L 21.0-32.0 [facility] Natriuretic peptide B (Bld) [Mass/Vol] 21.1 pg/mL 0-100 [facility] Urea nitrogen/Creatinine [Mass ratio] 17.7 mg/mg 10-20 [facility] Laboratory - Hematology and Cell countsOrdered By: [place] Jessica on 11-17-2023 MCH (RBC) [Entitic mass] 30.5 pg 27.0-32.0 [facility] MCHC (RBC) [Mass/Vol] 32.2 g/dL 32-36 [facility] Nucleated RBC/100 WBC (Bld) [Ratio] 0 % 0-5 [facility] Platelet mean volume (Bld) [Entitic vol] 8.7 fL 6.2-12.0 [facility] Platelets (Bld) [#/Vol] 269 10*3/uL 150-450 [facility] Measurement, pHOrdered By: Meron Jessica on 11-17-2023 pH (Unsp spec) 7.42 [pH] 7.35-7.45 [facility] Microbial respiratory cultur eOrdered By: Jj Whitfield on 11-17-2023 Bacteria identified Respiratory culture Nom (Unsp spec) [facility] No Panel InformationOrdered By: [place] Jessica on 11-17-2023 Arterial Blood Partial Pressure CO2 36.9 mmHg 35-45 [facility] Arterial Blood Partial Pressure O2 72 mmHG 75-100 [facility] Blood Gas Bicarbonate Actual 23.8 mmol/L - [facility] Blood Gas Oxygen Percent 2.0 [facility] Blood Gas Sample Site R Radial [facility] Blood Gas Specimen Type ART [facility] Blood Gas Vent Mode Not entered [facility] Oxygen Delivery Device Cannula [facility] ART [facility] R Radial [facility] Not entered [facility] Cannula [facility] 2.0 [facility] 36.9 mmHg 35-45 [facility] 72 mmHG 75-100 [facility] 23.8 mmol/L - [facility] No growth in 5 days. [facility] Estimated Creatinine Clearance Calc 59.01 ml/min [facility] Estimated GFR (MDRD) Amer 79 mL/min >60 [facility] Comment on above: GFR Calc Estimated GFR (MDRD) Non-Af Amer 65 mL/min >60 [facility] Comment on above: Non- GFR Calc Troponin I High Sensitivity 4 pg/mL 3.0-54.0 [facility] Comment on above: Please Note: New Terri t Units and Gender Specific Reference Ranges. For more information see Policy Stat Procedure Ovid High Sensitivity Troponin (TNIH) and attachments. 4 pg/mL 3.0-54.0 [facility] 21.1 pg/mL 0-100 [facility] RBC Auto (Bld) [#/Vol]Ordere d By: [place] Jessica on 11-17-2023 RBC (Bld) [#/Vol] 3.44 10*6/uL 4.2-5.4 [facility] Serum or plasma calcium juan urement (mass/volume)Ordered By: [place] Jessica on 11-17-2023 Calcium [Mass/Vol] 8.8 mg/dL 8.5-10.1 [facility] Serum or plasma creatinine m easurement (mass/volume)Ordered By: [place] Jessica on 11-17-2023 Creatinine [Mass/Vol] 0.90 mg/dL 0.55-1.02 [facility] Comment on above: The validity of the calculated GFR & GFRAA in patients over 70 years has not been determined. Clinical correlation is essential. Serum or plasma urea nitroge n measurement (mass/volume)Ordered By: [place] Jessica on 11-17-2023 Urea nitrogen [Mass/Vol] 16 mg/dL 7-18 [facility] Thin prep Papanicolaou smear with manual screeningOrdered By: [place] Jessica on 11-17-2023 Thin prep Papanicolaou smear with manual screening 175 mg/dL 74-106 [facility] Comment on above: MANAGEMENT OF PATIEN T CARE PER NURSING PROTOCOL Thin prep Papanicolaou smear with manual screening 9 5-15 [facility] Urinalysis complete panel (U )on 11-07-2023 Bacteria uL High Negative uL [facility] Bilirubin Ql (U) Negative [facility] Clarity (Unsp spec) Turbid Abnormal Clear [facility] Color (U) Yellow Yellow [facility] Epithelial cells LM.HPF (Urine sed) [#/Area] Few [facility] Glucose Test strip (U) [Mass/Vol] Negative Negative [facility] Hemoglobin Ql (U) Trace Abnormal Negative [facility] Hyaline casts (Urine sed) [#/Area] 0 /[LPF] 0 /LPF [facility] Ketones Ql (U) Negative Negative [facility] Leukocyte esterase Test strip Ql (U) 3+ Abnormal Negative [facility] Nitrite Ql (U) Negative Negative [facility] pH (U) 5.5 [pH] <8.5 [facility] Protein (U) [Mass/Vol] 1+ Abnormal Negative [facility] [place] RBC LM.HPF (Urine sed) [#/Area] 0-2 /HPF 0-2 /HPF [facility] Specific gravity (U) [Rel density] 1.023 1.005 - 1.030 [facility] Urobilinogen Ql (U) 0.2 EU/dL 0.2-1.0 EU/dL [facility] WBC LM.HPF (Urine sed) [#/Area] /[HPF] Abnormal 0-5 /HPF [facility] Basophil percentageOrdered B y: Minor Mirza on 11-02-2023 Basophil percentage 10.1 g/dL 12.0-15.0 [facility] Basophil percentage 130 mg/dL 74-106 [facility] Basophil percentage 7.3 g/dL 6.4-8.2 [facility] Basophil percentage 0.50 mg/dL 0.20-1.00 [facility] Basophil percentage 136 mmol/L 136-145 [facility] Basophil percentage 4.2 mmol/L 3.5-5.1 [facility] Basophil percentage 104 mmol/L 98-107 [facility] Basophils (Bld) [#/Vol] 9.3 10*3/uL 4.4-11.0 [facility] Bilirubin [Mass/Vol] 0.50 mg/dL 0.20-1.00 [facility] Comment on above: For patients on eltr ombopag therapy, use of Dimension Ovid TBIL is not recommended. Chloride [Moles/Vol] 104 mmol/L 98-107 [facility] Glucose [Mass/Vol] 130 mg/dL 74-106 [facility] Comment on above: Fasting Glucose resu lt greater than or equal to 126 mg/dL suggests DIABETES MELLITUS per A.D.A. criteria. Hemoglobin (Bld) [Mass/Vol] 10.1 g/dL 12.0-15.0 [facility] Potassium [Moles/Vol] 4.2 mmol/L 3.5-5.1 [facility] Protein [Mass/Vol] 7.3 g/dL 6.4-8.2 [facility] Sodium [Moles/Vol] 136 mmol/L 136-145 [facility] WBC (Bld) [#/Vol] 9.3 10*3/uL 4.4-11.0 [facility] Determination of erythrocyte mean corpuscular volume (MCV)Ordered By: Minor Mirza on 11-02-2023 MCV (RBC) [Entitic vol] 96.7 fL 81-99 [facility] Erythrocyte distribution wid th ratioOrdered By: Minor Mirza on 11-02-2023 Erythrocyte distribution width (RBC) [Ratio] 13.4 % 11.6-14.6 [facility] Erythrocyte distribution wid th standard deviationOrdered By: Minor Mirza on 11-02-2023 Erythrocyte distribution width (RBC) [Entitic vol] 47.3 fL 35.1-43.9 [facility] Hematocrit Auto (Bld) [Volum e fraction]Ordered By: Minor Mirza on 11-02-2023 Hematocrit (Bld) [Volume fraction] 31.8 % 37-47 [facility] Laboratory - Chemistry and C hemistry - challengeOrdered By: Minor Mirza on 11-02-2023 Albumin/Globulin [Mass ratio] 0.6 {ratio} 0.9-2.4 [facility] ALP [Catalytic activity/Vol] 160 U/L 45-117 [facility] ALT [Catalytic activity/Vol] 20 U/L 13-56 [facility] CO2 [Moles/Vol] 26.0 mmol/L 21.0-32.0 [facility] Globulin (S) [Mass/Vol] 4.6 g/dL 2.2-4.2 [facility] Urea nitrogen/Creatinine [Mass ratio] 20.4 mg/mg 10-20 [facility] Laboratory - Hematology and Cell countsOrdered By: Minor Mirza on 11-02-2023 MCH (RBC) [Entitic mass] 30.7 pg 27.0-32.0 [facility] MCHC (RBC) [Mass/Vol] 31.8 g/dL 32-36 [facility] Platelet mean volume (Bld) [Entitic vol] 9.2 fL 6.2-12.0 [facility] Platelets (Bld) [#/Vol] 302 10*3/uL 150-450 [facility] No Panel InformationOrdered By: Minor Mirza on 11-02-2023 Estimated GFR (MDRD) Amer 72 mL/min >60 [facility] Comment on above: GFR Calc Estimated GFR (MDRD) Non-Af Amer 60 mL/min >60 [facility] Comment on above: Non- GFR Calc Vitamin D 25-Hydroxy 18.2 ng/mL [facility] Comment on above: Vitamin D 25(OH) Sta tus Range Deficiency <20 ng/mL (50nmol/L) Insufficiency 20 - 30 ng/mL (50 - 75 nmol/L) Sufficiency 30 - 100 ng/mL (75 - 250 nmol/L) Toxicity >100 ng/mL (>250 nmol/L) 30.7 pg 27.0-32.0 [facility] 31.8 g/dL 32-36 [facility] 302 K/mm3 150-450 [facility] 9.2 fl 6.2-12.0 [facility] 60 mL/min >60 [facility] 72 mL/min >60 [facility] 20.4 RATIO 10-20 [facility] 4.6 g/dL 2.2-4.2 [facility] 0.6 RATIO 0.9-2.4 [facility] 160 U/L 45-117 [facility] 20 U/L 13-56 [facility] 26.0 mmol/L 21.0-32.0 [facility] 18.2 ng/mL [facility] RBC Auto (Bld) [#/Vol]Ordere d By: Minor Mirza on 11-02-2023 RBC (Bld) [#/Vol] 3.29 10*6/uL 4.2-5.4 [facility] Serum or plasma calcium juan urement (mass/volume)Ordered By: Minor Mirza on 11-02-2023 Calcium [Mass/Vol] 8.7 mg/dL 8.5-10.1 [facility] Serum or plasma creatinine m easurement (mass/volume)Ordered By: Minor Mirza on 11-02-2023 Creatinine [Mass/Vol] 0.98 mg/dL 0.55-1.02 [facility] Comment on above: The validity of the calculated GFR & GFRAA in patients over 70 years has not been determined. Clinical correlation is essential. Serum or plasma urea nitroge n measurement (mass/volume)Ordered By: Minor Mirza on 11-02-2023 Urea nitrogen [Mass/Vol] 20 mg/dL 7-18 [facility] Thin prep Papanicolaou smear with manual screeningOrdered By: Minor Mirza on 11-02-2023 Thin prep Papanicolaou smear with manual screening 2.7 g/dL 3.2-5.0 [facility] Thin prep Papanicolaou smear with manual screening 24 U/L 15-37 [facility] Thin prep Papanicolaou smear with manual screening 6 5-15 [facility] Bacteria identified Cx Nom ( U)Ordered By: Minor Mirza on 10-26-2023 Culture, urine Staphylococcus epidermidis [facility] Basophil percentageOrdered B y: Minor Mirza on 10-26-2023 Basophil percentage 10-25 SEEN /hpf 0-5 [facility] Basophil percentage 9.3 g/dL 12.0-15.0 [facility] Basophils (Bld) [#/Vol] 7.3 10*3/uL 4.4-11.0 [facility] Hemoglobin (Bld) [Mass/Vol] 9.3 g/dL 12.0-15.0 [facility] WBC (Bld) [#/Vol] 7.3 10*3/uL 4.4-11.0 [facility] Bilirubin Test strip Ql (U)O rdered By: Minor Mirza on 10-26-2023 Bilirubin Ql (U) Negative Negative [facility] Culture, urineOrdered By: Home Mirza on 10-26-2023 Bacteria identified Cx Nom (U) Staphylococcus epidermidis [facility] Determination of erythrocyte mean corpuscular volume (MCV)Ordered By: Minor Mirza on 10-26-2023 MCV (RBC) [Entitic vol] 98.0 fL 81-99 [facility] Erythrocyte distribution wid th ratioOrdered By: Minor Mirza on 10-26-2023 Erythrocyte distribution width (RBC) [Ratio] 13.7 % 11.6-14.6 [facility] Erythrocyte distribution wid th standard deviationOrdered By: Minor Mirza on 10-26-2023 Erythrocyte distribution width (RBC) [Entitic vol] 48.7 fL 35.1-43.9 [facility] Hematocrit Auto (Bld) [Volum e fraction]Ordered By: Minor Mirza on 10-26-2023 Hematocrit (Bld) [Volume fraction] 29.0 % 37-47 [facility] Ketones Test strip Ql (U)Ord ered By: Minor Mirza on 10-26-2023 Ketones Ql (U) Negative Negative [facility] Laboratory - Hematology and Cell countsOrdered By: Minor Mirza on 10-26-2023 MCH (RBC) [Entitic mass] 31.4 pg 27.0-32.0 [facility] MCHC (RBC) [Mass/Vol] 32.1 g/dL -36 [facility] Platelet mean volume (Bld) [Entitic vol] 9.3 fL 6.2-12.0 [facility] Platelets (Bld) [#/Vol] 329 10*3/uL 150-450 [facility] Mucus LM Ql (Urine sed)Order ed By: Minor Mirza on 10-26-2023 Mucus Ql (Urine sed) 0 SEEN /hpf [facility] Nitrite Test strip Ql (U)Ord ered By: Minor Mirza on 10-26-2023 Nitrite Ql (U) Positive Negative [facility] No Panel InformationOrdered By: Minor Mirza on 10-26-2023 Urine RBC 0 SEEN /hpf 0-5 [facility] 0 SEEN /hpf 0-5 [facility] 31.4 pg 27.0-32.0 [facility] 32.1 g/dL 32- [facility] 329 K/mm3 150-450 [facility] 9.3 fl 6.2-12.0 [facility] Protein Test strip Ql (U)Ord ered By: Minor Mirza on 10-26-2023 Protein Ql (U) Negative Negative [facility] RBC Auto (Bld) [#/Vol]Ordere d By: Minor Mirza on 10-26-2023 RBC (Bld) [#/Vol] 2.96 10*6/uL 4.2-5.4 [facility] Squamous epithelial cells de tection in urine sediment by light microscopyOrdered By: Minor Mirza on 10-26-2023 Epithelial cells.squamous LM Ql (Urine sed) 0 SEEN /hpf 5-10 [facility] Urine blood detectionOrdered By: Minor Mirza on 10-26-2023 RBC Ql (U) Negative Negative [facility] Urine clarityOrdered By: Georgette Mirza on 10-26-2023 Clarity (U) Clear Clear [facility] Urine color determinationOrd ered By: Minor Mirza on 10-26-2023 Color (U) Yellow Yellow [facility] Urine glucose detectionOrder ed By: Minor Mirza on 10-26-2023 Glucose Ql (U) Normal mg/dl Normal [facility] Urine leukocyte esterase det ection by dipstickOrdered By: Minor Mirza on 10-26-2023 Leukocyte esterase Test strip Ql (U) 100 /ul Negative [facility] Urine pHOrdered By: Minor arrington on 10-26-2023 pH (U) 7.0 [pH] 5.0 - 8.0 [facility] Urine sediment bacteria coun t by microscopy (number/high power field)Ordered By: Minor Mirza on 10-26-2023 Bacteria LM.HPF (Urine sed) [#/Area] 2 /[HPF] None Seen [facility] Urine specific gravity measu rementOrdered By: Minor Mirza on 10-26-2023 Specific gravity (U) [Rel density] 1.005 1.002-1.030 [facility] Urine urobilinogen measureme ntOrdered By: Minor Mirza on 10-26-2023 Urobilinogen Ql (U) Normal mg/dl Normal [facility] Basophil percentageOrdered B y: Minor Mirza on 10-19-2023 Basophil percentage 9.0 g/dL 12.0-15.0 [facility] Basophil percentage 117 mg/dL 74-106 [facility] Basophil percentage 6.2 g/dL 6.4-8.2 [facility] Basophil percentage 0.60 mg/dL 0.20-1.00 [facility] Basophil percentage 139 mmol/L 136-145 [facility] Basophil percentage 4.0 mmol/L 3.5-5.1 [facility] Basophil percentage 103 mmol/L 98-107 [facility] Basophils (Bld) [#/Vol] 8.9 10*3/uL 4.4-11.0 [facility] Bilirubin [Mass/Vol] 0.60 mg/dL 0.20-1.00 [facility] Comment on above: For patients on eltr ombopag therapy, use of Dimension Ovid TBIL is not recommended. Chloride [Moles/Vol] 103 mmol/L 98-107 [facility] Glucose [Mass/Vol] 117 mg/dL 74-106 [facility] Comment on above: Fasting Glucose resu lt from 100 to 125 mg/dL suggests IMPAIRED HOMEOSTASIS per A.D.A. criteria. Hemoglobin (Bld) [Mass/Vol] 9.0 g/dL 12.0-15.0 [facility] Potassium [Moles/Vol] 4.0 mmol/L 3.5-5.1 [facility] Protein [Mass/Vol] 6.2 g/dL 6.4-8.2 [facility] Sodium [Moles/Vol] 139 mmol/L 136-145 [facility] WBC (Bld) [#/Vol] 8.9 10*3/uL 4.4-11.0 [facility] Determination of erythrocyte mean corpuscular volume (MCV)Ordered By: Minor Mirza on 10-19-2023 MCV (RBC) [Entitic vol] 98.6 fL 81-99 [facility] Erythrocyte distribution wid th ratioOrdered By: Minor Mirza on 10-19-2023 Erythrocyte distribution width (RBC) [Ratio] 13.2 % 11.6-14.6 [facility] Erythrocyte distribution wid th standard deviationOrdered By: Minor Mirza on 10-19-2023 Erythrocyte distribution width (RBC) [Entitic vol] 47.1 fL 35.1-43.9 [facility] Hematocrit Auto (Bld) [Volum e fraction]Ordered By: Minor Mirza on 10-19-2023 Hematocrit (Bld) [Volume fraction] 28.0 % 37-47 [facility] Laboratory - Chemistry and C hemistry - challengeOrdered By: Minor Mirza on 10-19-2023 Albumin/Globulin [Mass ratio] 0.6 {ratio} 0.9-2.4 [facility] ALP [Catalytic activity/Vol] 60 U/L 45-117 [facility] ALT [Catalytic activity/Vol] 14 U/L 13-56 [facility] CO2 [Moles/Vol] 32.0 mmol/L 21.0-32.0 [facility] Globulin (S) [Mass/Vol] 3.9 g/dL 2.2-4.2 [facility] Urea nitrogen/Creatinine [Mass ratio] 19.6 mg/mg 10-20 [facility] Laboratory - Hematology and Cell countsOrdered By: Minor Mirza on 10-19-2023 MCH (RBC) [Entitic mass] 31.7 pg 27.0-32.0 [facility] MCHC (RBC) [Mass/Vol] 32.1 g/dL 32-36 [facility] Platelet mean volume (Bld) [Entitic vol] 9.3 fL 6.2-12.0 [facility] Platelets (Bld) [#/Vol] 372 10*3/uL 150-450 [facility] No Panel InformationOrdered By: Minor Mirza on 10-19-2023 Estimated GFR (MDRD) Amer 83 mL/min >60 [facility] Comment on above: GFR Calc Estimated GFR (MDRD) Non-Af Amer 69 mL/min >60 [facility] Comment on above: Non- GFR Calc 31.7 pg 27.0-32.0 [facility] 32.1 g/dL 32-36 [facility] 372 K/mm3 150-450 [facility] 9.3 fl 6.2-12.0 [facility] 69 mL/min >60 [facility] 83 mL/min >60 [facility] 19.6 RATIO 10-20 [facility] 3.9 g/dL 2.2-4.2 [facility] 0.6 RATIO 0.9-2.4 [facility] 60 U/L 45-117 [facility] 14 U/L -56 [facility] 32.0 mmol/L 21.0-32.0 [facility] RBC Auto (Bld) [#/Vol]Ordere d By: Minor Mirza on 10-19-2023 RBC (Bld) [#/Vol] 2.84 10*6/uL 4.2-5.4 [facility] Serum or plasma calcium juan urement (mass/volume)Ordered By: Minor Mirza on 10-19-2023 Calcium [Mass/Vol] 8.5 mg/dL 8.5-10.1 [facility] Serum or plasma creatinine m easurement (mass/volume)Ordered By: Minor Mirza on 10-19-2023 Creatinine [Mass/Vol] 0.87 mg/dL 0.55-1.02 [facility] Comment on above: The validity of the calculated GFR & GFRAA in patients over 70 years has not been determined. Clinical correlation is essential. Serum or plasma urea nitroge n measurement (mass/volume)Ordered By: Minor Mirza on 10-19-2023 Urea nitrogen [Mass/Vol] 17 mg/dL 7-18 [facility] Thin prep Papanicolaou smear with manual screeningOrdered By: Minor Mirza on 10-19-2023 Thin prep Papanicolaou smear with manual screening 2.3 g/dL 3.2-5.0 [facility] Thin prep Papanicolaou smear with manual screening 15 U/L 15-37 [facility] Thin prep Papanicolaou smear with manual screening 4 5-15 [facility] Basophil percentageOrdered B y: Minor Mirza on 10-14-2023 Basophil percentage 8.6 g/dL 12.0-15.0 [facility] Basophil percentage 166 mg/dL 74-106 [facility] Basophil percentage 5.7 g/dL 6.4-8.2 [facility] Basophil percentage 0.50 mg/dL 0.20-1.00 [facility] Basophil percentage 140 mmol/L 136-145 [facility] Basophil percentage 3.8 mmol/L 3.5-5.1 [facility] Basophil percentage 110 mmol/L 98-107 [facility] Basophils (Bld) [#/Vol] 7.9 10*3/uL 4.4-11.0 [facility] Bilirubin [Mass/Vol] 0.50 mg/dL 0.20-1.00 [facility] Comment on above: For patients on eltr ombopag therapy, use of Dimension Ovid TBIL is not recommended. Chloride [Moles/Vol] 110 mmol/L 98-107 [facility] Glucose [Mass/Vol] 166 mg/dL 74-106 [facility] Comment on above: Fasting Glucose resu lt greater than or equal to 126 mg/dL suggests DIABETES MELLITUS per A.D.A. criteria. Hemoglobin (Bld) [Mass/Vol] 8.6 g/dL 12.0-15.0 [facility] Potassium [Moles/Vol] 3.8 mmol/L 3.5-5.1 [facility] Protein [Mass/Vol] 5.7 g/dL 6.4-8.2 [facility] Sodium [Moles/Vol] 140 mmol/L 136-145 [facility] WBC (Bld) [#/Vol] 7.9 10*3/uL 4.4-11.0 [facility] Determination of erythrocyte mean corpuscular volume (MCV)Ordered By: Minor Mirza on 10-14-2023 MCV (RBC) [Entitic vol] 97.8 fL 81-99 [facility] Erythrocyte distribution wid th ratioOrdered By: Minor Mirza on 10-14-2023 Erythrocyte distribution width (RBC) [Ratio] 13.1 % 11.6-14.6 [facility] Erythrocyte distribution wid th standard deviationOrdered By: Minor Mirza on 10-14-2023 Erythrocyte distribution width (RBC) [Entitic vol] 45.8 fL 35.1-43.9 [facility] Hematocrit Auto (Bld) [Volum e fraction]Ordered By: Minor Mirza on 10-14-2023 Hematocrit (Bld) [Volume fraction] 26.9 % 37-47 [facility] Laboratory - Chemistry and C hemistry - challengeOrdered By: Minor Mirza on 10-14-2023 Albumin/Globulin [Mass ratio] 0.6 {ratio} 0.9-2.4 [facility] ALP [Catalytic activity/Vol] 49 U/L 45-117 [facility] ALT [Catalytic activity/Vol] 18 U/L 13-56 [facility] CO2 [Moles/Vol] 28.0 mmol/L 21.0-32.0 [facility] Globulin (S) [Mass/Vol] 3.5 g/dL 2.2-4.2 [facility] Urea nitrogen/Creatinine [Mass ratio] 24.5 mg/mg 10-20 [facility] Laboratory - Hematology and Cell countsOrdered By: Minor Mirza on 10-14-2023 MCH (RBC) [Entitic mass] 31.3 pg 27.0-32.0 [facility] MCHC (RBC) [Mass/Vol] 32.0 g/dL 32-36 [facility] Platelet mean volume (Bld) [Entitic vol] 9.5 fL 6.2-12.0 [facility] Platelets (Bld) [#/Vol] 227 10*3/uL 150-450 [facility] No Panel InformationOrdered By: Minor Mirza on 10-14-2023 Estimated GFR (MDRD) Amer 100 mL/min >60 [facility] Comment on above: GFR Calc Estimated GFR (MDRD) Non-Af Amer 83 mL/min >60 [facility] Comment on above: Non- GFR Calc 31.3 pg 27.0-32.0 [facility] 32.0 g/dL 32-36 [facility] 227 K/mm3 150-450 [facility] 9.5 fl 6.2-12.0 [facility] 83 mL/min >60 [facility] 100 mL/min >60 [facility] 24.5 RATIO 10-20 [facility] 3.5 g/dL 2.2-4.2 [facility] 0.6 RATIO 0.9-2.4 [facility] 49 U/L 45-117 [facility] 18 U/L 13-56 [facility] 28.0 mmol/L 21.0-32.0 [facility] RBC Auto (Bld) [#/Vol]Ordere d By: Minor Mirza on 10-14-2023 RBC (Bld) [#/Vol] 2.75 10*6/uL 4.2-5.4 [facility] Serum or plasma calcium juan urement (mass/volume)Ordered By: Minor Mirza on 10-14-2023 Calcium [Mass/Vol] 8.0 mg/dL 8.5-10.1 [facility] Serum or plasma creatinine m easurement (mass/volume)Ordered By: Minor Mirza on 10-14-2023 Creatinine [Mass/Vol] 0.74 mg/dL 0.55-1.02 [facility] Comment on above: The validity of the calculated GFR & GFRAA in patients over 70 years has not been determined. Clinical correlation is essential. Serum or plasma urea nitroge n measurement (mass/volume)Ordered By: Minor Mirza on 10-14-2023 Urea nitrogen [Mass/Vol] 18 mg/dL 7-18 [facility] Thin prep Papanicolaou smear with manual screeningOrdered By: Minor Mirza on 10-14-2023 Thin prep Papanicolaou smear with manual screening 2.2 g/dL 3.2-5.0 [facility] Thin prep Papanicolaou smear with manual screening 25 U/L 15-37 [facility] Thin prep Papanicolaou smear with manual screening 2 5-15 [facility] Basophil percentageOrdered B y: Scott Sutton on 10-13-2023 Basophil percentage 8.3 g/dL 12.0-15.0 [facility] Basophils (Bld) [#/Vol] 8.8 10*3/uL 4.4-11.0 [facility] Hemoglobin (Bld) [Mass/Vol] 8.3 g/dL 12.0-15.0 [facility] WBC (Bld) [#/Vol] 8.8 10*3/uL 4.4-11.0 [facility] Basophil percentageOrdered B y: Aaliyah Tubbs on 10-13-2023 Basophil percentage 212 mg/dL 74-106 [facility] Basophil percentage 140 mmol/L 136-145 [facility] Basophil percentage 3.5 mmol/L 3.5-5.1 [facility] Basophil percentage 111 mmol/L 98-107 [facility] Chloride [Moles/Vol] 111 mmol/L 98-107 [facility] Glucose [Mass/Vol] 212 mg/dL 74-106 [facility] Comment on above: Glucose result great er than or equal to 200 mg/dLsuggests DIABETES MELLITUS per A.D.A. criteria. Potassium [Moles/Vol] 3.5 mmol/L 3.5-5.1 [facility] Sodium [Moles/Vol] 140 mmol/L 136-145 [facility] Determination of erythrocyte mean corpuscular volume (MCV)Ordered By: Scott Sutton on 10-13-2023 MCV (RBC) [Entitic vol] 99.6 fL 81-99 [facility] Erythrocyte distribution wid th ratioOrdered By: Scott Sutton on 10-13-2023 Erythrocyte distribution width (RBC) [Ratio] 13.2 % 11.6-14.6 [facility] Erythrocyte distribution wid th standard deviationOrdered By: Scott Sutton on 10-13-2023 Erythrocyte distribution width (RBC) [Entitic vol] 47.8 fL 35.1-43.9 [facility] Hematocrit Auto (Bld) [Volum e fraction]Ordered By: Scott Sutton on 10-13-2023 Hematocrit (Bld) [Volume fraction] 26.5 % 37-47 [facility] Laboratory - Chemistry and C hemistry - challengeOrdered By: Aaliyah Tubbs on 10-13-2023 CO2 [Moles/Vol] 27.0 mmol/L 21.0-32.0 [facility] Urea nitrogen/Creatinine [Mass ratio] 22.7 mg/mg 06-03 [facility] Laboratory - Hematology and Cell countsOrdered By: Scott Sutton on 10-13-2023 MCH (RBC) [Entitic mass] 31.2 pg 27.0-32.0 [facility] MCHC (RBC) [Mass/Vol] 31.3 g/dL 32-36 [facility] Platelet mean volume (Bld) [Entitic vol] 10.0 fL 6.2-12.0 [facility] Platelets (Bld) [#/Vol] 204 10*3/uL 150-450 [facility] No Panel InformationOrdered By: Aaliyah Tubbs on 10-13-2023 Estimated Creatinine Clearance Calc 64.20 ml/min [facility] Estimated GFR (MDRD) Amer 86 mL/min >60 [facility] Comment on above: GFR Calc Estimated GFR (MDRD) Non-Af Amer 71 mL/min >60 [facility] Comment on above: Non- GFR Calc 71 mL/min >60 [facility] 86 mL/min >60 [facility] 64.20 ml/min [facility] 22.7 RATIO 06-03 [facility] 27.0 mmol/L 21.0-32.0 [facility] No Panel InformationOrdered By: Scott Sutton on 10-13-2023 31.2 pg 27.0-32.0 [facility] 31.3 g/dL 32-36 [facility] 204 K/mm3 150-450 [facility] 10.0 fl 6.2-12.0 [facility] RBC Auto (Bld) [#/Vol]Ordere d By: Scott Sutton on 10-13-2023 RBC (Bld) [#/Vol] 2.66 10*6/uL 4.2-5.4 [facility] Serum or plasma calcium juan urement (mass/volume)Ordered By: Aaliyah Tubbs on 10-13-2023 Calcium [Mass/Vol] 7.6 mg/dL 8.5-10.1 [facility] Serum or plasma creatinine m easurement (mass/volume)Ordered By: Aaliyah Tubbs on 10-13-2023 Creatinine [Mass/Vol] 0.84 mg/dL 0.55-1.02 [facility] Comment on above: The validity of the calculated GFR & GFRAA in patients over 70 years has not been determined. Clinical correlation is essential. Serum or plasma urea nitroge n measurement (mass/volume)Ordered By: Aaliyah Tubbs on 10-13-2023 Urea nitrogen [Mass/Vol] 19 mg/dL 7-18 [facility] Thin prep Papanicolaou smear with manual screeningOrdered By: Aaliyah Tubbs on 10-13-2023 Thin prep Papanicolaou smear with manual screening 100 mg/dL 74-106 [facility] Comment on above: MANAGEMENT OF PATIEN T CARE PER NURSING PROTOCOL Thin prep Papanicolaou smear with manual screening 2 5-15 [facility] Bacteria identified Cx Nom ( U)Ordered By: Aaliyah Tubbs on 10-12-2023 Culture, urine Staphylococcus epidermidis [facility] Culture, urine Enterococcus faecalis [facility] Culture, urine Corynebacterium amycolatum/xer [facility] Culture, urine Corynebacterium jeikeium [facility] Culture, urineOrdered By: Rosemary Tubbs on 10-12-2023 Bacteria identified Cx Nom (U) Staphylococcus epidermidis [facility] Bacteria identified Cx Nom (U) Enterococcus faecalis [facility] Bacteria identified Cx Nom (U) Corynebacterium amycolatum/xer [facility] Bacteria identified Cx Nom (U) Corynebacterium jeikeium [facility] Absolute lymphocyte countOrd ered By: Scott Sutton on 10-11-2023 Lymphocytes Auto (Unsp spec) [#/Vol] 0.77 10*3/uL 0.83-4.51 [facility] Activated partial thrombopla stin time (aPTT) in platelet poor plasma by coagulation aOrdered By: Elmer Morgan on 10-11-2023 aPTT Coag (PPP) [Time] 26.0 s 24.1-36.2 [facility] Automated lymphocyte count a s percentage of total leukocytesOrdered By: Scott Sutton on 10-11-2023 Lymphocytes/100 WBC Auto (Unsp spec) 5.5 % 19-41 [facility] Basophil percentageOrdered B y: Anthony Ramsay on 10-11-2023 Basophil percentage 10-25 SEEN /hpf 0-5 [facility] Basophil percentageOrdered B y: Elmer Morgan on 10-11-2023 Basophil percentage 6.6 g/dL 6.4-8.2 [facility] Basophil percentage 0.60 mg/dL 0.20-1.00 [facility] Bilirubin [Mass/Vol] 0.60 mg/dL 0.20-1.00 [facility] Comment on above: For patients on eltr ombopag therapy, use of Dimension Ovid TBIL is not recommended. Protein [Mass/Vol] 6.6 g/dL 6.4-8.2 [facility] Basophil percentageOrdered B y: Scott Sutton on 10-11-2023 Basophils (Bld) [#/Vol] 12.0 10*3/uL 2.0-7.7 [facility] Basophils/100 WBC (Bld) 0.3 % 0-1 [facility] Basophils/100 WBC (Bld) 85.2 % 47-70 [facility] Basophils/100 WBC (Bld) 8.4 % 0-10 [facility] Basophils/100 WBC (Bld) 0.0 % 0-5 [facility] Eosinophils/100 WBC (Bld) 0.0 % 0-5 [facility] Monocytes/100 WBC (Bld) 8.4 % 0-10 [facility] Neutrophils (Bld) [#/Vol] 12.0 10*3/uL 2.0-7.7 [facility] Neutrophils/100 WBC (Bld) 85.2 % 47-70 [facility] Bilirubin Test strip Ql (U)O rdered By: Anthony Ramsay on 10-11-2023 Bilirubin Ql (U) Negative Negative [facility] Blood platelet adequacy dete ction by light microscopyOrdered By: Loulou Buenrostro on 10-11-2023 Platelets LM Ql (Bld) ADEQUATE ADEQ [facility] Direct bilirubinOrdered By: Elmer Morgan on 10-11-2023 Bilirubin.direct [Mass/Vol] 0.24 mg/dL 0.00-0.30 [facility] Immature granulocytes/100 WB C Auto (Bld)Ordered By: Scott Sutton on 10-11-2023 Immature granulocytes/100 WBC (Bld) 0.600 % 0.0-0.9 [facility] Comment on above: IG% - Immature Granu locytes (promyelocytes, myelocytes and metamyelocytes) > 1% indicates that a LEFT SHIFT is Present. Ketones Test strip Ql (U)Ord ered By: Anthony Ramsay on 10-11-2023 Ketones Ql (U) 5 mg/dl Negative [facility] Laboratory - Chemistry and C hemistry - challengeOrdered By: Elmer Morgan on 10-11-2023 ALP [Catalytic activity/Vol] 60 U/L 45-117 [facility] ALT [Catalytic activity/Vol] 24 U/L 13-56 [facility] Globulin (S) [Mass/Vol] 3.9 g/dL 2.2-4.2 [facility] Laboratory - Chemistry and C hemistry - challengeOrdered By: Anthony Ramsay on 10-11-2023 CK [Catalytic activity/Vol] 890 U/L 26-192 [facility] Laboratory - Chemistry and C hemistry - challengeOrdered By: Loulou Buenrostro on 10-11-2023 Albumin/Globulin [Mass ratio] 0.7 {ratio} 0.9-2.4 [facility] Laboratory - CoagulationOrde red By: Elmer Morgan on 10-11-2023 INR Coag (Bld) [Relative time] 1.1 {INR} [facility] PT Coag (PPP) [Time] 14.2 s 11.7-14.9 [facility] Laboratory - Hematology and Cell countsOrdered By: Scott Sutton on 10-11-2023 Nucleated RBC/100 WBC (Bld) [Ratio] 0 % 0-5 [facility] Laboratory - Microbiology an d Antimicrobial susceptibilityOrdered By: Loulou Buenrostro on 10-11-2023 SARS-CoV-2 (COVID-19) RNA QUAN+probe Ql (Unsp spec) [facility] Mucus LM Ql (Urine sed)Order ed By: Anthony Ramsay on 10-11-2023 Mucus Ql (Urine sed) 0 SEEN /hpf [facility] Nitrite Test strip Ql (U)Ord ered By: Anthony Ramsay on 10-11-2023 Nitrite Ql (U) Negative Negative [facility] No Panel InformationOrdered By: Anthony Ramsay on 10-11-2023 Urine RBC 5-10 SEEN /hpf 0-5 [facility] 5-10 SEEN /hpf 0-5 [facility] 890 U/L 26-192 [facility] No Panel InformationOrdered By: Scott Sutton on 10-11-2023 0 % 0-5 [facility] No Panel InformationOrdered By: Elmer Morgan on 10-11-2023 14.2 SECONDS 11.7-14.9 [facility] 1.1 [facility] 3.9 g/dL 2.2-4.2 [facility] 60 U/L 45-117 [facility] 24 U/L 13-56 [facility] No Panel InformationOrdered By: Loulou Buenrostro on 10-11-2023 Troponin I High Sensitivity 8 pg/mL 3.0-54.0 [facility] Comment on above: Please Note: New Terri t Units and Gender Specific Reference Ranges. For more information see Policy Stat Procedure Ovid High Sensitivity Troponin (TNIH) and attachments. 0.7 RATIO 0.9-2.4 [facility] 8 pg/mL 3.0-54.0 [facility] Protein Test strip Ql (U)Ord ered By: Anthony Ramsay on 10-11-2023 Protein Ql (U) 30 mg/dl Negative [facility] Squamous epithelial cells de tection in urine sediment by light microscopyOrdered By: Anthony Ramsay on 10-11-2023 Epithelial cells.squamous LM Ql (Urine sed) 0 SEEN /hpf 5-10 [facility] Thin prep Papanicolaou smear with manual screeningOrdered By: Elmer Morgan on 10-11-2023 Thin prep Papanicolaou smear with manual screening 2.7 g/dL 3.2-5.0 [facility] Thin prep Papanicolaou smear with manual screening 31 U/L 15-37 [facility] Urine blood detectionOrdered By: Anthony Ramsay on 10-11-2023 RBC Ql (U) 150 /ul Negative [facility] Urine clarityOrdered By: Josesito Ramsay on 10-11-2023 Clarity (U) Sl. Cloudy Clear [facility] Urine color determinationOrd ered By: Anthony Ramsay on 10-11-2023 Color (U) Yellow Yellow [facility] Urine glucose detectionOrder ed By: Anthony Ramsay on 10-11-2023 Glucose Ql (U) 1000 mg/dl Normal [facility] Urine leukocyte esterase det ection by dipstickOrdered By: Anthony Ramsay on 10-11-2023 Leukocyte esterase Test strip Ql (U) 500 /ul Negative [facility] Urine pHOrdered By: Anthony lipscomb on 10-11-2023 pH (U) 6.0 [pH] 5.0 - 8.0 [facility] Urine sediment bacteria coun t by microscopy (number/high power field)Ordered By: Anthony Ramsay on 10-11-2023 Bacteria LM.HPF (Urine sed) [#/Area] 0 /[HPF] None Seen [facility] Urine specific gravity measu rementOrdered By: Anthony Ramsay on 10-11-2023 Specific gravity (U) [Rel density] 1.020 1.002-1.030 [facility] Urine urobilinogen measureme ntOrdered By: Anthony Ramsay on 10-11-2023 Urobilinogen Ql (U) Normal mg/dl Normal [facility] Whole blood hemoglobin A1c/t otal hemoglobin ratio (mass fraction)Ordered By: Anthony Ramsay on 10-11-2023 HbA1c (Bld) [Mass fraction] 11.1 % 3.8-5.6 [facility] Comment on above: Normal < 5.7 % Predi abetic 5.7 - 6.4 % Diabetic >or= 6.5 % Please note range changes. Laboratory - Microbiology an d Antimicrobial susceptibilityOrdered By: Loulou Buenrostro on 10-10-2023 SARS-CoV-2 (COVID-19) RNA QUAN+probe Ql (Unsp spec) [facility] CT Chest WO contraston 09-29 [facility] Absolute lymphocyte countOrd ered By: Rachel Johnson on 08-25-2023 Lymphocytes Auto (Unsp spec) [#/Vol] 1.89 10*3/uL 0.83-4.51 [facility] Basophil percentageOrdered B y: Rachel Johnson on 08-25-2023 Basophil percentage 140 mg/dL 74-106 [facility] Basophil percentage 6.7 g/dL 6.4-8.2 [facility] Basophil percentage 0.30 mg/dL 0.20-1.00 [facility] Basophil percentage 141 mmol/L 136-145 [facility] Basophil percentage 3.7 mmol/L 3.5-5.1 [facility] Basophil percentage 105 mmol/L 98-107 [facility] Basophils (Bld) [#/Vol] 8.4 10*3/uL 4.4-11.0 [facility] Basophils (Bld) [#/Vol] 5.1 10*3/uL 2.0-7.7 [facility] Basophils/100 WBC (Bld) 0.8 % 0-1 [facility] Basophils/100 WBC (Bld) 61.4 % 47-70 [facility] Basophils/100 WBC (Bld) 8.6 % 0-5 [facility] Bilirubin [Mass/Vol] 0.30 mg/dL 0.20-1.00 [facility] Comment on above: For patients on eltr ombopag therapy, use of Dimension Ovid TBIL is not recommended. Chloride [Moles/Vol] 105 mmol/L 98-107 [facility] Eosinophils/100 WBC (Bld) 8.6 % 0-5 [facility] Glucose [Mass/Vol] 140 mg/dL 74-106 [facility] Comment on above: Fasting Glucose resu lt greater than or equal to 126 mg/dL suggests DIABETES MELLITUS per A.D.A. criteria. Neutrophils (Bld) [#/Vol] 5.1 10*3/uL 2.0-7.7 [facility] Neutrophils/100 WBC (Bld) 61.4 % 47-70 [facility] Potassium [Moles/Vol] 3.7 mmol/L 3.5-5.1 [facility] Protein [Mass/Vol] 6.7 g/dL 6.4-8.2 [facility] Sodium [Moles/Vol] 141 mmol/L 136-145 [facility] WBC (Bld) [#/Vol] 8.4 10*3/uL 4.4-11.0 [facility] Blood erythrocytes count (nu mber/volume)Ordered By: Rachel Johnson on 08-25-2023 RBC (Bld) [#/Vol] 3.74 10*6/uL 4.2-5.4 [facility] Blood hemoglobin measurement (mass/volume)Ordered By: Rachel Johnson on 08-25-2023 Hemoglobin (Bld) [Mass/Vol] 11.9 g/dL 12.0-15.0 [facility] Blood lymphocytes/100 leukoc ytesOrdered By: Rachel Johnson on 08-25-2023 Lymphocytes/100 WBC (Bld) 22.6 % 19-41 [facility] Blood monocytes/100 leukocyt esOrdered By: Rachel Johnson on 08-25-2023 Monocytes/100 WBC (Bld) 6.0 % 0-10 [facility] Blood platelet mean volumeOr dered By: Rachel Johnson on 08-25-2023 Platelet mean volume (Bld) [Entitic vol] 9.4 fL 6.2-12.0 [facility] Determination of erythrocyte mean corpuscular volume (MCV)Ordered By: Rachel Johnson on 08-25-2023 MCV (RBC) [Entitic vol] 97.1 fL 81-99 [facility] Hematocrit Auto (Bld) [Volum e fraction]Ordered By: Rachel Johnson on 08-25-2023 Hematocrit (Bld) [Volume fraction] 36.3 % 37-47 [facility] Laboratory - Chemistry and C hemistry - challengeOrdered By: Rachel Johnson on 08-25-2023 ALP [Catalytic activity/Vol] 55 U/L 45-117 [facility] ALT [Catalytic activity/Vol] 18 U/L 13-56 [facility] CO2 [Moles/Vol] 29.0 mmol/L 21.0-32.0 [facility] Globulin (S) [Mass/Vol] 3.9 g/dL 2.2-4.2 [facility] Urea nitrogen/Creatinine [Mass ratio] 15.8 mg/mg 10-20 [facility] Laboratory - Hematology and Cell countsOrdered By: Rachel Johnson on 08-25-2023 Erythrocyte distribution width (RBC) [Entitic vol] 46.2 fL 35.1-43.9 [facility] Erythrocyte distribution width (RBC) [Ratio] 13.0 % 11.6-14.6 [facility] Immature granulocytes/100 WBC (Bld) 0.600 % 0.0-0.9 [facility] Comment on above: IG% - Immature Granu locytes (promyelocytes, myelocytes and metamyelocytes) > 1% indicates that a LEFT SHIFT is Present. MCH (RBC) [Entitic mass] 31.8 pg 27.0-32.0 [facility] Nucleated RBC/100 WBC (Bld) [Ratio] 0 % 0-5 [facility] MCHC Auto (RBC) [Mass/Vol]Or dered By: Rachel Johnson on 08-25-2023 MCHC (RBC) [Mass/Vol] 32.8 g/dL 32-36 [facility] No Panel InformationOrdered By: Rachel Johnson on 08-25-2023 Estimated GFR (MDRD) Amer 75 mL/min >60 [facility] Comment on above: GFR Calc Estimated GFR (MDRD) Non-Af Amer 62 mL/min >60 [facility] Comment on above: Non- GFR Calc 31.8 pg 27.0-32.0 [facility] 13.0 % 11.6-14.6 [facility] 46.2 fl 35.1-43.9 [facility] 0.600 % 0.0-0.9 [facility] 0 % 0-5 [facility] 62 mL/min >60 [facility] 75 mL/min >60 [facility] 15.8 RATIO 10-20 [facility] 3.9 g/dL 2.2-4.2 [facility] 55 U/L 45-117 [facility] 18 U/L 13-56 [facility] 29.0 mmol/L 21.0-32.0 [facility] Platelets bldOrdered By: Gurjit Johnson on 08-25-2023 Platelets (Bld) [#/Vol] 269 10*3/uL 150-450 [facility] Serum or plasma albumin juan urement (mass/volume)Ordered By: Rachel Johnson on 08-25-2023 Albumin [Mass/Vol] 2.8 g/dL 3.2-5.0 [facility] Serum or plasma albumin/glob ulin mass ratioOrdered By: Rachel Johnson on 08-25-2023 Albumin/Globulin [Mass ratio] 0.7 {ratio} 0.9-2.4 [facility] Serum or plasma calcium juan urement (mass/volume)Ordered By: Rachel Johnson on 08-25-2023 Calcium [Mass/Vol] 8.4 mg/dL 8.5-10.1 [facility] Serum or plasma creatinine m easurement (mass/volume)Ordered By: Rachel Johnson on 08-25-2023 Creatinine [Mass/Vol] 0.95 mg/dL 0.55-1.02 [facility] Comment on above: The validity of the calculated GFR & GFRAA in patients over 70 years has not been determined. Clinical correlation is essential. Serum or plasma urea nitroge n measurement (mass/volume)Ordered By: Rachel Johnson on 08-25-2023 Urea nitrogen [Mass/Vol] 15 mg/dL 7-18 [facility] Thin prep Papanicolaou smear with manual screeningOrdered By: Rachel Johnson on 08-25-2023 Thin prep Papanicolaou smear with manual screening 20 U/L 15-37 [facility] Thin prep Papanicolaou smear with manual screening 7 5-15 [facility] Laboratory - Hematology and Cell countson 08-17-2023 HbA1c (Bld) [Mass fraction] 10.9 % 4.2-6.3 [facility] No Panel Informationon 08-17 10.9 % 4.2-6.3 [facility] UA DIP, URINE (POC)on 2022 BILIRUBIN UA (POCT) Negative Negative [facility] CLARITY UA (POCT) [facility] COLOR UA (POCT) Other [facility] GLUCOSE UA (POCT) 500 mg/dL Abnormal Negative mg/dL [facility] Hemoglobin Ql (U) Negative Negative [facility] KETONE UA (POCT) Trace Negative mg/dL [facility] LEUKOCYTES UA (POCT) Negative Negative [facility] NITRITE UA (POCT) Negative Negative [facility] PH UA (POCT) 5.5 4.5 - 8.0 [facility] Protein Ql (U) 30 mg/dL Abnormal Negative mg/dL [facility] SPECIFIC GRAVITY UA (POCT) >=1.030 1.005 - 1.030 [facility] UROBILINOGEN UA (POCT) 0.2 E.U./dL Viktoriya l E.U./dL [facility] XR Chest PA and Lateralon IMPRESSION: Stable exam with vague small groundglass opacity in the right upper lung. A follow-up exam is recommended. 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[employer] Transcribe Date/Time: Jul 02 2023 7:43P Dictated by : MITUL FRANCES MD This examination was interpreted and the report reviewed and electronically signed by: MITUL FRANCES MD on Jul 02 2023 7:46PM [facility] DIVISION OF RADIOLOGY * * *Final Report* * * DATE OF EXAM: Jul 01 2023 4:19PM WOX 5291 - XR CHEST 2V FRONTAL/LAT / PROCEDURE REASON: Bacterial pneumonia * * * * Physician Interpretation * * * * EXAMINATION: CHEST RADIOGRAPH (2 VIEW FRONTAL & LATERAL) CLINICAL HISTORY: Bacterial pneumonia MQ: XC2_6 EXAM DATE/TIME: 07/01/2023 4:19 PM COMPARISON: 05/12/2023. RESULT: Lines, tubes, and devices: None. Lungs and pleura: There is a vague small nodular groundglass opacity seen projecting over the anterior aspect of the right first rib best visualized on the prior CT scan of the chest dated 03/31/2023. No consolidation. No pleural effusion. No pneumothorax. Cardiomediastinal silhouette: Normal cardiomediastinal silhouette. Bones and soft tissues: The patient is status post left mastectomy. DIVISION OF RADIOLOGY [facility] * * *Final Report* * * DATE OF EXAM: Jul 01 2023 4:19PM WOX 5291 - XR CHEST 2V FRONTAL/LAT / PROCEDURE REASON: Bacterial pneumonia * * * * Physician Interpretation * * * * EXAMINATION: CHEST RADIOGRAPH (2 VIEW FRONTAL & LATERAL) CLINICAL HISTORY: Bacterial pneumonia MQ: XC2_6 EXAM DATE/TIME: 07/01/2023 4:19 PM COMPARISON: 05/12/2023. RESULT: Lines, tubes, and devices: None. Lungs and pleura: There is a vague small nodular groundglass opacity seen projecting over the anterior aspect of the right first rib best visualized on the prior CT scan of the chest dated 03/31/2023. No consolidation. No pleural effusion. No pneumothorax. Cardiomediastinal silhouette: Normal cardiomediastinal silhouette. Bones and soft tissues: The patient is status post left mastectomy. IMPRESSION IMPRESSION: Stable exam with vague small groundglass opacity in the right upper lung. A follow-up exam is recommended. 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[employer] Transcribe Date/Time: Jul 02 2023 7:43P Dictated by : MITUL FRANCES MD This examination was interpreted and the report reviewed and electronically signed by: MITUL FRANCES MD on Jul 02 2023 7:46PM EST [facility] XR Chest PA and LateralOrder ed By: [facility] Provider on 07-02-2023 [facility] XR Chest PA and Lateralon Radiology Study observation (narrative) [facility] Absolute lymphocyte countOrd ered By: Janet Philip on 06-23-2023 Lymphocytes Auto (Unsp spec) [#/Vol] 1.21 10*3/uL 0.83-4.51 [facility] Basophil percentageOrdered B y: Janet Philip on 06-23-2023 Basophils/100 WBC (Bld) 0.2 % 0-1 [facility] Chloride [Moles/Vol] 103 mmol/L 98-107 [facility] Eosinophils/100 WBC (Bld) 0.1 % 0-5 [facility] Glucose [Mass/Vol] 377 mg/dL 74-106 [facility] Comment on above: Glucose result great er than or equal to 200 mg/dLsuggests DIABETES MELLITUS per A.D.A. criteria. Neutrophils (Bld) [#/Vol] 15.4 10*3/uL 2.0-7.7 [facility] Neutrophils/100 WBC (Bld) 87.5 % 47-70 [facility] Potassium [Moles/Vol] 4.3 mmol/L 3.5-5.1 [facility] Sodium [Moles/Vol] 135 mmol/L 136-145 [facility] WBC (Bld) [#/Vol] 17.6 10*3/uL 4.4-11.0 [facility] Blood erythrocytes count (nu mber/volume)Ordered By: Janet Philip on 06-23-2023 RBC (Bld) [#/Vol] 3.53 10*6/uL 4.2-5.4 [facility] Blood hemoglobin measurement (mass/volume)Ordered By: Janet Philip on 06-23-2023 Hemoglobin (Bld) [Mass/Vol] 10.7 g/dL 12.0-15.0 [facility] Blood lymphocytes/100 leukoc ytesOrdered By: Janet Philip on 06-23-2023 Lymphocytes/100 WBC (Bld) 6.9 % 19-41 [facility] Blood monocytes/100 leukocyt esOrdered By: Janet Philip on 06-23-2023 Monocytes/100 WBC (Bld) 4.4 % 0-10 [facility] Blood platelet mean volumeOr dered By: Janet Philip on 06-23-2023 Platelet mean volume (Bld) [Entitic vol] 9.5 fL 6.2-12.0 [facility] Determination of erythrocyte mean corpuscular volume (MCV)Ordered By: Janet Philip on 06-23-2023 MCV (RBC) [Entitic vol] 96.0 fL 81-99 [facility] Glucose Glucometer (BldC) [M ass/Vol]Ordered By: Janet Philip on 06-23-2023 Glucose [Mass/Vol] 347 mg/dL 74-106 [facility] Comment on above: MANAGEMENT OF PATIEN T CARE PER NURSING PROTOCOL Hematocrit Auto (Bld) [Volum e fraction]Ordered By: Janet Philip on 06-23-2023 Hematocrit (Bld) [Volume fraction] 33.9 % 37-47 [facility] Laboratory - Chemistry and C hemistry - challengeOrdered By: Janet Philip on 06-23-2023 CO2 [Moles/Vol] 25.0 mmol/L 21.0-32.0 [facility] Urea nitrogen/Creatinine [Mass ratio] 21.3 mg/mg 10-20 [facility] Laboratory - Hematology and Cell countsOrdered By: Janet Philip on 06-23-2023 Erythrocyte distribution width (RBC) [Entitic vol] 46.7 fL 35.1-43.9 [facility] Erythrocyte distribution width (RBC) [Ratio] 13.2 % 11.6-14.6 [facility] Immature granulocytes/100 WBC (Bld) 0.900 % 0.0-0.9 [facility] Comment on above: IG% - Immature Granu locytes (promyelocytes, myelocytes and metamyelocytes) > 1% indicates that a LEFT SHIFT is Present. MCH (RBC) [Entitic mass] 30.3 pg 27.0-32.0 [facility] Nucleated RBC/100 WBC (Bld) [Ratio] 0 % 0-5 [facility] MCHC Auto (RBC) [Mass/Vol]Or dered By: Janet Philip on 06-23-2023 MCHC (RBC) [Mass/Vol] 31.6 g/dL 32-36 [facility] No Panel InformationOrdered By: Janet Philip on 06-23-2023 Estimated Creatinine Clearance Calc 37.79 ml/min [facility] Estimated GFR (MDRD) Amer 64 mL/min >60 [facility] Comment on above: GFR Calc Estimated GFR (MDRD) Non-Af Amer 53 mL/min >60 [facility] Comment on above: Non- GFR Calc Platelets bldOrdered By: Mickey Philip on 06-23-2023 Platelets (Bld) [#/Vol] 319 10*3/uL 150-450 [facility] Serum or plasma calcium juan urement (mass/volume)Ordered By: Janet Philip on 06-23-2023 Calcium [Mass/Vol] 8.8 mg/dL 8.5-10.1 [facility] Serum or plasma creatinine m easurement (mass/volume)Ordered By: Janet Philip on 06-23-2023 Creatinine [Mass/Vol] 1.08 mg/dL 0.55-1.02 [facility] Comment on above: The validity of the calculated GFR & GFRAA in patients over 70 years has not been determined. Clinical correlation is essential. Serum or plasma urea nitroge n measurement (mass/volume)Ordered By: Janet Philip on 06-23-2023 Urea nitrogen [Mass/Vol] 23 mg/dL 7-18 [facility] Thin prep Papanicolaou smear with manual screeningOrdered By: Janet Philip on 06-23-2023 Thin prep Papanicolaou smear with manual screening 7 5-15 [facility] Respiratory pathogens detect ion panel by molecular detection methodOrdered By: Janet Philip on 06-22-2023 Respiratory pathogens DNA and RNA panel QUAN+probe (Resp) [facility] Absolute lymphocyte countOrd ered By: Elver Carrion on 06-21-2023 Lymphocytes Auto (Unsp spec) [#/Vol] 1.26 10*3/uL 0.83-4.51 [facility] Basophil percentageOrdered B y: Elver Carrion on 06-21-2023 Basophil percentage 5-10 SEEN /hpf 0-5 [facility] Basophils/100 WBC (Bld) 0.7 % 0-1 [facility] Bilirubin [Mass/Vol] 0.60 mg/dL 0.20-1.00 [facility] Comment on above: For patients on eltr ombopag therapy, use of Dimension Ovid TBIL is not recommended. Chloride [Moles/Vol] 99 mmol/L 98-107 [facility] Eosinophils/100 WBC (Bld) 5.8 % 0-5 [facility] Glucose [Mass/Vol] 333 mg/dL 74-106 [facility] Comment on above: Glucose result great er than or equal to 200 mg/dLsuggests DIABETES MELLITUS per A.D.A. criteria. Neutrophils (Bld) [#/Vol] 12.5 10*3/uL 2.0-7.7 [facility] Neutrophils/100 WBC (Bld) 79.9 % 47-70 [facility] Potassium [Moles/Vol] 4.3 mmol/L 3.5-5.1 [facility] Comment on above: Slight Hemolysis, Re sult may be falsely increased. Protein [Mass/Vol] 7.6 g/dL 6.4-8.2 [facility] Sodium [Moles/Vol] 134 mmol/L 136-145 [facility] WBC (Bld) [#/Vol] 15.6 10*3/uL 4.4-11.0 [facility] Lactate [Moles/Vol] 1.4 mmol/L 0.4-2.0 [facility] Bilirubin Test strip Ql (U)O rdered By: Elver Carrion on 06-21-2023 Bilirubin Ql (U) Negative Negative [facility] Blood erythrocytes count (nu mber/volume)Ordered By: Elver Carrion on 06-21-2023 RBC (Bld) [#/Vol] 3.89 10*6/uL 4.2-5.4 [facility] Blood hemoglobin measurement (mass/volume)Ordered By: Elver Carrion on 06-21-2023 Hemoglobin (Bld) [Mass/Vol] 11.9 g/dL 12.0-15.0 [facility] Blood lymphocytes/100 leukoc ytesOrdered By: Elver Carrion on 06-21-2023 Lymphocytes/100 WBC (Bld) 8.1 % 19-41 [facility] Blood monocytes/100 leukocyt esOrdered By: Elver Carrion on 06-21-2023 Monocytes/100 WBC (Bld) 4.9 % 0-10 [facility] Blood platelet mean volumeOr dered By: Elver Carrion on 06-21-2023 Platelet mean volume (Bld) [Entitic vol] 9.1 fL 6.2-12.0 [facility] Culture, urineOrdered By: Do whitney Carrion on 06-21-2023 Bacteria identified Cx Nom (U) Positive [facility] Determination of erythrocyte mean corpuscular volume (MCV)Ordered By: Elver Carrion on 06-21-2023 MCV (RBC) [Entitic vol] 94.6 fL 81-99 [facility] Glucose Glucometer (BldC) [M ass/Vol]Ordered By: Elver Carrion on 06-21-2023 Glucose [Mass/Vol] 344 mg/dL 74-106 [facility] Comment on above: MANAGEMENT OF PATIEN T CARE PER NURSING PROTOCOL Hematocrit Auto (Bld) [Volum e fraction]Ordered By: Elver Carrion on 06-21-2023 Hematocrit (Bld) [Volume fraction] 36.8 % 37-47 [facility] INR in Blood by Coagulation assayOrdered By: Elver Carrion on 06-21-2023 INR Coag (Bld) [Relative time] 1.1 {INR} [facility] Influenza virus A and B and SARS-CoV-2 (COVID-19) Ag panel - Upper respiratory specimOrdered By: Elver Carrion on 06-21-2023 SARS-CoV-2 (COVID-19) RNA QUAN+probe Ql (Resp) [facility] Ketones Test strip Ql (U)Ord ered By: Elver Carrion on 06-21-2023 Ketones Ql (U) 150 mg/dl Negative [facility] Comment on above: CRITICAL VALUE *HCRI TICAL VALUE VERIFIED. CALLED TO Alexandr HINTONN108/21/22 1723 Erika Roberto.RESULTS READ BACK BY SAME . Laboratory - Chemistry and C hemistry - challengeOrdered By: Elver Carrion on 06-21-2023 ALP [Catalytic activity/Vol] 69 U/L 45-117 [facility] ALT [Catalytic activity/Vol] 16 U/L 13-56 [facility] CO2 [Moles/Vol] 26.0 mmol/L 21.0-32.0 [facility] Globulin (S) [Mass/Vol] 4.8 g/dL 2.2-4.2 [facility] Urea nitrogen/Creatinine [Mass ratio] 13.6 mg/mg 10-20 [facility] Laboratory - Chemistry and C hemistry - challengeOrdered By: Reji Nelson on 06-21-2023 Natriuretic peptide B (Bld) [Mass/Vol] 9.1 pg/mL 0-100 [facility] Laboratory - CoagulationOrde red By: Elver Carrion on 06-21-2023 aPTT Coag (Bld) [Time] 28.4 s 24.1-36.2 [facility] PT Coag (PPP) [Time] 14.0 s 11.7-14.9 [facility] Laboratory - Hematology and Cell countsOrdered By: Elver Carrion on 06-21-2023 Erythrocyte distribution width (RBC) [Entitic vol] 45.2 fL 35.1-43.9 [facility] Erythrocyte distribution width (RBC) [Ratio] 13.2 % 11.6-14.6 [facility] Immature granulocytes/100 WBC (Bld) 0.600 % 0.0-0.9 [facility] Comment on above: IG% - Immature Granu locytes (promyelocytes, myelocytes and metamyelocytes) > 1% indicates that a LEFT SHIFT is Present. MCH (RBC) [Entitic mass] 30.6 pg 27.0-32.0 [facility] Nucleated RBC/100 WBC (Bld) [Ratio] 0 % 0-5 [facility] Laboratory - Microbiology an d Antimicrobial susceptibilityOrdered By: Elver Carrion on 06-21-2023 Bacteria identified Cx Nom (Bld) No growth in 5 days. [facility] MCHC Auto (RBC) [Mass/Vol]Or dered By: Elver Carrion on 06-21-2023 MCHC (RBC) [Mass/Vol] 32.3 g/dL 32-36 [facility] Mucus LM Ql (Urine sed)Order ed By: Elver Carrion on 06-21-2023 Mucus Ql (Urine sed) 0 SEEN /hpf [facility] Nitrite Test strip Ql (U)Ord ered By: Elver Carrion on 06-21-2023 Nitrite Ql (U) Negative Negative [facility] No Panel InformationOrdered By: Elver Carrion on 06-21-2023 Estimated GFR (MDRD) Amer 63 mL/min >60 [facility] Comment on above: GFR Calc Estimated GFR (MDRD) Non-Af Amer 52 mL/min >60 [facility] Comment on above: Non- GFR Calc D-Dimer Quantitative (PE/DVT) 1.66 FEU/ug/m 0.27-0.49 [facility] Comment on above: D-Dimer ELEVATED (>0 .49): Additional studies and clinicalassessments are indicated to conclude diagnosis of:Deep Vein Thrombosis (DVT) or Pulmonary Embolism (PE)CRITICAL VALUE VERIFIED. CALLED TO [id number] Christina Jc.RESULTS READ BACK BY SAME . Platelets bldOrdered By: Erasmo Carrion on 06-21-2023 Platelets (Bld) [#/Vol] 272 10*3/uL 150-450 [facility] Protein Test strip Ql (U)Ord ered By: Elver Carrion on 06-21-2023 Protein Ql (U) 30 mg/dl Negative [facility] Serum or plasma albumin juan urement (mass/volume)Ordered By: Elver Carrion on 06-21-2023 Albumin [Mass/Vol] 2.8 g/dL 3.2-5.0 [facility] Serum or plasma albumin/glob ulin mass ratioOrdered By: Elver Carrion on 06-21-2023 Albumin/Globulin [Mass ratio] 0.6 {ratio} 0.9-2.4 [facility] Serum or plasma calcium juan urement (mass/volume)Ordered By: Elver Carrion on 06-21-2023 Calcium [Mass/Vol] 8.5 mg/dL 8.5-10.1 [facility] Serum or plasma creatinine m easurement (mass/volume)Ordered By: Elver Carrion on 06-21-2023 Creatinine [Mass/Vol] 1.10 mg/dL 0.55-1.02 [facility] Comment on above: The validity of the calculated GFR & GFRAA in patients over 70 years has not been determined. Clinical correlation is essential. Serum or plasma urea nitroge n measurement (mass/volume)Ordered By: Elver Carrion on 06-21-2023 Urea nitrogen [Mass/Vol] 15 mg/dL 7-18 [facility] Squamous epithelial cells de tection in urine sediment by light microscopyOrdered By: Elver Carrion on 06-21-2023 Epithelial cells.squamous LM Ql (Urine sed) 5-10 SEEN /hpf 5-10 [facility] Thin prep Papanicolaou smear with manual screeningOrdered By: Elver Carrion on 06-21-2023 Thin prep Papanicolaou smear with manual screening 14 U/L 15-37 [facility] Comment on above: Slight Hemolysis, Re sult may be falsely increased. Thin prep Papanicolaou smear with manual screening 9 5-15 [facility] Urine blood detectionOrdered By: Elver Carrion on 06-21-2023 RBC Ql (U) 10 /ul Negative [facility] RBC Ql (U) 0 SEEN /hpf 0-5 [facility] Urine clarityOrdered By: Erasmo Carrion on 06-21-2023 Clarity (U) Clear Clear [facility] Urine color determinationOrd ered By: Elver Carrion on 06-21-2023 Color (U) Yellow Yellow [facility] Urine glucose detectionOrder ed By: Elver Carrion on 06-21-2023 Glucose Ql (U) 1000 mg/dl Normal [facility] Urine leukocyte esterase det ection by dipstickOrdered By: Elver Carrion on 06-21-2023 Leukocyte esterase Test strip Ql (U) 500 /ul Negative [facility] Urine pHOrdered By: Elver mar on 06-21-2023 pH (U) 5.0 [pH] 5.0 - 8.0 [facility] Urine sediment bacteria coun t by microscopy (number/high power field)Ordered By: Elver Carrion on 06-21-2023 Bacteria LM.HPF (Urine sed) [#/Area] 1 /[HPF] None Seen [facility] Urine specific gravity measu rementOrdered By: Elver Carrion on 06-21-2023 Specific gravity (U) [Rel density] 1.020 1.002-1.030 [facility] Urobilinogen Auto test strip Ql (U)Ordered By: Elver Carrion on 06-21-2023 Urobilinogen Ql (U) 1 mg/dl Normal [facility] US KIDNEY/BLADDERon 06-16-20 [facility] UA DIP, URINE (POC)on 2022 BILIRUBIN UA (POCT) Negative Negative [facility] CLARITY UA (POCT) Clear [facility] COLOR UA (POCT) Dark yellow [facility] GLUCOSE UA (POCT) Negative Negative mg/dL [facility] Hemoglobin Ql (U) Negative Negative [facility] KETONE UA (POCT) Trace Negative mg/dL [facility] LEUKOCYTES UA (POCT) Small Abnormal Negative [facility] NITRITE UA (POCT) Negative Negative [facility] PH UA (POCT) 7.0 4.5 - 8.0 [facility] Protein Ql (U) 30 mg/dL Abnormal Negative mg/dL [facility] SPECIFIC GRAVITY UA (POCT) 1.025 1.005 - 1.030 [facility] UROBILINOGEN UA (POCT) 1.0 E.U./dL Viktoriya l E.U./dL [facility] Absolute lymphocyte countOrd ered By: Rachel Johnson on 05-27-2023 Lymphocytes Auto (Unsp spec) [#/Vol] 1.96 10*3/uL 0.83-4.51 [facility] Basophil percentageOrdered B y: Rachel Johnson on 05-27-2023 Basophils/100 WBC (Bld) 0.7 % 0-1 [facility] Bilirubin [Mass/Vol] 0.30 mg/dL 0.20-1.00 [facility] Comment on above: For patients on eltr ombopag therapy, use of Dimension Ovid TBIL is not recommended. Chloride [Moles/Vol] 104 mmol/L 98-107 [facility] Eosinophils/100 WBC (Bld) 4.6 % 0-5 [facility] Glucose [Mass/Vol] 215 mg/dL 74-106 [facility] Comment on above: Glucose result great er than or equal to 200 mg/dLsuggests DIABETES MELLITUS per A.D.A. criteria. Neutrophils (Bld) [#/Vol] 5.0 10*3/uL 2.0-7.7 [facility] Neutrophils/100 WBC (Bld) 61.5 % 47-70 [facility] Potassium [Moles/Vol] 4.0 mmol/L 3.5-5.1 [facility] Protein [Mass/Vol] 7.1 g/dL 6.4-8.2 [facility] Sodium [Moles/Vol] 140 mmol/L 136-145 [facility] WBC (Bld) [#/Vol] 8.1 10*3/uL 4.4-11.0 [facility] Blood erythrocytes count (nu mber/volume)Ordered By: Rachel Johnson on 05-27-2023 RBC (Bld) [#/Vol] 3.90 10*6/uL 4.2-5.4 [facility] Blood hemoglobin measurement (mass/volume)Ordered By: Rachel Johnson on 05-27-2023 Hemoglobin (Bld) [Mass/Vol] 12.0 g/dL 12.0-15.0 [facility] Blood lymphocytes/100 leukoc ytesOrdered By: Rachelricardo Johnson on 05-27-2023 Lymphocytes/100 WBC (Bld) 24.3 % 19-41 [facility] Blood monocytes/100 leukocyt esOrdered By: Rachelricardo Johnson on 05-27-2023 Monocytes/100 WBC (Bld) 8.3 % 0-10 [facility] Blood platelet mean volumeOr dered By: Rachel Johnson on 05-27-2023 Platelet mean volume (Bld) [Entitic vol] 10.0 fL 6.2-12.0 [facility] Determination of erythrocyte mean corpuscular volume (MCV)Ordered By: Rachel Johnson on 05-27-2023 MCV (RBC) [Entitic vol] 96.9 fL 81-99 [facility] Hematocrit Auto (Bld) [Volum e fraction]Ordered By: Rachel Johnson on 05-27-2023 Hematocrit (Bld) [Volume fraction] 37.8 % 37-47 [facility] Laboratory - Chemistry and C hemistry - challengeOrdered By: Rachel Johnson on 05-27-2023 ALP [Catalytic activity/Vol] 57 U/L 45-117 [facility] ALT [Catalytic activity/Vol] 19 U/L 13-56 [facility] CO2 [Moles/Vol] 29.0 mmol/L 21.0-32.0 [facility] Globulin (S) [Mass/Vol] 4.2 g/dL 2.2-4.2 [facility] Urea nitrogen/Creatinine [Mass ratio] 17.3 mg/mg 10-20 [facility] Laboratory - Hematology and Cell countsOrdered By: Rachel Johnson on 05-27-2023 Erythrocyte distribution width (RBC) [Entitic vol] 47.4 fL 35.1-43.9 [facility] Erythrocyte distribution width (RBC) [Ratio] 13.3 % 11.6-14.6 [facility] Immature granulocytes/100 WBC (Bld) 0.600 % 0.0-0.9 [facility] Comment on above: IG% - Immature Granu locytes (promyelocytes, myelocytes and metamyelocytes) > 1% indicates that a LEFT SHIFT is Present. MCH (RBC) [Entitic mass] 30.8 pg 27.0-32.0 [facility] Nucleated RBC/100 WBC (Bld) [Ratio] 0 % 0-5 [facility] MCHC Auto (RBC) [Mass/Vol]Or dered By: Rachel Johnson on 05-27-2023 MCHC (RBC) [Mass/Vol] 31.7 g/dL 32-36 [facility] No Panel InformationOrdered By: Rachel Johnson on 05-27-2023 Estimated GFR (MDRD) Amer 77 mL/min >60 [facility] Comment on above: GFR Calc Estimated GFR (MDRD) Non-Af Amer 64 mL/min >60 [facility] Comment on above: Non- GFR Calc Platelets bldOrdered By: Gurjit Johnson on 05-27-2023 Platelets (Bld) [#/Vol] 251 10*3/uL 150-450 [facility] Serum or plasma albumin juan urement (mass/volume)Ordered By: Rachel Johnson on 05-27-2023 Albumin [Mass/Vol] 2.9 g/dL 3.2-5.0 [facility] Serum or plasma albumin/glob ulin mass ratioOrdered By: Rachel Johnson on 05-27-2023 Albumin/Globulin [Mass ratio] 0.7 {ratio} 0.9-2.4 [facility] Serum or plasma calcium juan urement (mass/volume)Ordered By: Rachel Johnson on 05-27-2023 Calcium [Mass/Vol] 8.5 mg/dL 8.5-10.1 [facility] Serum or plasma creatinine m easurement (mass/volume)Ordered By: Rachel Johnson on 05-27-2023 Creatinine [Mass/Vol] 0.92 mg/dL 0.55-1.02 [facility] Comment on above: The validity of the calculated GFR & GFRAA in patients over 70 years has not been determined. Clinical correlation is essential. Serum or plasma urea nitroge n measurement (mass/volume)Ordered By: Rachel Johnson on 05-27-2023 Urea nitrogen [Mass/Vol] 16 mg/dL 7-18 [facility] Thin prep Papanicolaou smear with manual screeningOrdered By: Rachelricardo Johnson on 05-27-2023 Thin prep Papanicolaou smear with manual screening 12 U/L 15-37 [facility] Thin prep Papanicolaou smear with manual screening 7 5-15 [facility] XR CHEST 2V FRONTAL/LATon [facility] CBC W Auto Differential pane l (Bld)on 05-06-2023 Basophils (Bld) [#/Vol] 0.07 10*3/uL <0.11 k/uL [facility] Basophils/100 WBC (Bld) 0.7 % [facility] Differential cell count method Nom (Bld) Auto [facility] Eosinophils (Bld) [#/Vol] 0.26 10*3/uL <0.46 k/uL [facility] Eosinophils/100 WBC (Bld) 2.7 % [facility] Erythrocyte distribution width (RBC) [Ratio] 12.7 % 11.5 - 15.0 % [facility] Hematocrit (Bld) [Volume fraction] 40.1 % 36.0 - 46.0 % [facility] Hemoglobin (Bld) [Mass/Vol] 12.8 g/dL 11.5 - 15.5 g/dL [facility] Immature granulocytes (Bld) [#/Vol] 0.06 10*3/uL <0.10 k/uL [facility] Immature granulocytes/100 WBC (Bld) 0.6 % [facility] Lymphocytes (Bld) [#/Vol] 2.31 10*3/uL 1.00 - 4.00 k/uL [facility] Lymphocytes/100 WBC (Bld) 23.7 % [facility] MCH (RBC) [Entitic mass] 30.1 pg 26. 0 - 34.0 pg [facility] MCHC (RBC) [Mass/Vol] 31.9 g/dL 30.5 - 36.0 g/dL [facility] MCV (RBC) [Entitic vol] 94.4 fL 80.0 - 100.0 fL [facility] Monocytes (Bld) [#/Vol] 0.64 10*3/uL <0.87 k/uL [facility] Monocytes/100 WBC (Bld) 6.6 % [facility] Neutrophils (Bld) [#/Vol] 6.40 10*3/uL 1.45 - 7.50 k/uL [facility] Neutrophils/100 WBC (Bld) 65.7 % [facility] Nucleated RBC (Bld) [#/Vol] <0.01 k/uL [facility] Nucleated RBC/100 WBC (Bld) [Ratio] 0.0 /100 WBC [facility] Platelet mean volume (Bld) [Entitic vol] 10.4 fL 9.0 - 12.7 fL [facility] Platelets (Bld) [#/Vol] 241 10*3/uL 150 - 400 k/uL [facility] RBC (Bld) [#/Vol] 4.25 10*6/uL 3.90 - 5.2 0 m/uL [facility] WBC (Bld) [#/Vol] 9.74 10*3/uL 3.70 - 11.00 k/uL [facility] CT CHEST WO IVCONon 03-31-20 23 [facility] Absolute lymphocyte countOrd ered By: Rachel Johnson on 03-04-2023 Lymphocytes Auto (Unsp spec) [#/Vol] 1.42 10*3/uL 0.83-4.51 [facility] Basophil percentageOrdered B y: Rachel Johnson on 03-04-2023 Basophils/100 WBC (Bld) 1.1 % 0-1 [facility] Bilirubin [Mass/Vol] 0.30 mg/dL 0.20-1.00 [facility] Comment on above: For patients on eltr ombopag therapy, use of Dimension Ovid TBIL is not recommended. Chloride [Moles/Vol] 106 mmol/L 98-107 [facility] Eosinophils/100 WBC (Bld) 2.9 % 0-5 [facility] Glucose [Mass/Vol] 165 mg/dL 74-106 [facility] Comment on above: Fasting Glucose resu lt greater than or equal to 126 mg/dL suggests DIABETES MELLITUS per A.D.A. criteria. Neutrophils (Bld) [#/Vol] 4.8 10*3/uL 2.0-7.7 [facility] Neutrophils/100 WBC (Bld) 66.8 % 47-70 [facility] Potassium [Moles/Vol] 3.6 mmol/L 3.5-5.1 [facility] Protein [Mass/Vol] 7.5 g/dL 6.4-8.2 [facility] Sodium [Moles/Vol] 140 mmol/L 136-145 [facility] WBC (Bld) [#/Vol] 7.1 10*3/uL 4.4-11.0 [facility] Blood erythrocytes count (nu mber/volume)Ordered By: Rachel Johnson on 03-04-2023 RBC (Bld) [#/Vol] 4.41 10*6/uL 4.2-5.4 [facility] Blood hemoglobin measurement (mass/volume)Ordered By: Rachel Johnson on 03-04-2023 Hemoglobin (Bld) [Mass/Vol] 13.3 g/dL 12.0-15.0 [facility] Blood lymphocytes/100 leukoc ytesOrdered By: Rachel Johnson on 03-04-2023 Lymphocytes/100 WBC (Bld) 19.9 % 19-41 [facility] Blood monocytes/100 leukocyt esOrdered By: Rachel Johnson on 03-04-2023 Monocytes/100 WBC (Bld) 8.3 % 0-10 [facility] Blood platelet mean volumeOr dered By: Rachel Johnson on 03-04-2023 Platelet mean volume (Bld) [Entitic vol] 10.2 fL 6.2-12.0 [facility] Determination of erythrocyte mean corpuscular volume (MCV)Ordered By: Rachel Johnson on 03-04-2023 MCV (RBC) [Entitic vol] 95.0 fL 81-99 [facility] Hematocrit Auto (Bld) [Volum e fraction]Ordered By: Rachel Johnson on 03-04-2023 Hematocrit (Bld) [Volume fraction] 41.9 % 37-47 [facility] Laboratory - Chemistry and C hemistry - challengeOrdered By: Rachel Johnson on 03-04-2023 ALP [Catalytic activity/Vol] 61 U/L 45-117 [facility] ALT [Catalytic activity/Vol] 20 U/L 13-56 [facility] CO2 [Moles/Vol] 27.0 mmol/L 21.0-32.0 [facility] Globulin (S) [Mass/Vol] 4.5 g/dL 2.2-4.2 [facility] Urea nitrogen/Creatinine [Mass ratio] 12.8 mg/mg 10-20 [facility] Laboratory - Hematology and Cell countsOrdered By: Rachel Johnson on 03-04-2023 Erythrocyte distribution width (RBC) [Entitic vol] 42.6 fL 35.1-43.9 [facility] Erythrocyte distribution width (RBC) [Ratio] 12.1 % 11.6-14.6 [facility] Immature granulocytes/100 WBC (Bld) 1.000 % 0.0-0.9 [facility] Comment on above: IG% - Immature Granu locytes (promyelocytes, myelocytes and metamyelocytes) > 1% indicates that a LEFT SHIFT is Present. MCH (RBC) [Entitic mass] 30.2 pg 27.0-32.0 [facility] Nucleated RBC/100 WBC (Bld) [Ratio] 0 % 0-5 [facility] MCHC Auto (RBC) [Mass/Vol]Or dered By: Rachel Johnson on 03-04-2023 MCHC (RBC) [Mass/Vol] 31.7 g/dL 32-36 [facility] No Panel InformationOrdered By: Rachel Johnson on 03-04-2023 Estimated GFR (MDRD) Amer 76 mL/min >60 [facility] Comment on above: GFR Calc Estimated GFR (MDRD) Non-Af Amer 63 mL/min >60 [facility] Comment on above: Non- GFR Calc Platelets bldOrdered By: Gurjit Johnson on 03-04-2023 Platelets (Bld) [#/Vol] 221 10*3/uL 150-450 [facility] Serum or plasma albumin juan urement (mass/volume)Ordered By: Rachel Johnson on 03-04-2023 Albumin [Mass/Vol] 3.0 g/dL 3.2-5.0 [facility] Serum or plasma albumin/glob ulin mass ratioOrdered By: Rachel Johnson on 03-04-2023 Albumin/Globulin [Mass ratio] 0.7 {ratio} 0.9-2.4 [facility] Serum or plasma calcium juan urement (mass/volume)Ordered By: Rachel Johnson on 03-04-2023 Calcium [Mass/Vol] 8.7 mg/dL 8.5-10.1 [facility] Serum or plasma creatinine m easurement (mass/volume)Ordered By: Rachel Johnson on 03-04-2023 Creatinine [Mass/Vol] 0.94 mg/dL 0.55-1.02 [facility] Comment on above: The validity of the calculated GFR & GFRAA in patients over 70 years has not been determined. Clinical correlation is essential. Serum or plasma urea nitroge n measurement (mass/volume)Ordered By: Rachel Johnson on 03-04-2023 Urea nitrogen [Mass/Vol] 12 mg/dL 7-18 [facility] Thin prep Papanicolaou smear with manual screeningOrdered By: Rachel Johnson on 03-04-2023 Thin prep Papanicolaou smear with manual screening 13 U/L 15-37 [facility] Thin prep Papanicolaou smear with manual screening 7 5-15 [facility] UA DIP, URINE (POC)on 2022 BILIRUBIN UA (POCT) Negative Negative [facility] CLARITY UA (POCT) Clear [facility] COLOR UA (POCT) Yellow [facility] GLUCOSE UA (POCT) 500 mg/dL Abnormal Negative mg/dL [facility] HEMOGLOBIN/BLOOD UA (POCT) Trace-intact Abnormal Negative [facility] KETONE UA (POCT) Negative Negative mg/dL [facility] LEUKOCYTES UA (POCT) Trace Abnormal Negative [facility] NITRITE UA (POCT) Negative Negative [facility] PH UA (POCT) 5.5 4.5 - 8.0 [facility] Protein Ql (U) 30 mg/dL Abnormal Negative mg/dL [facility] SPECIFIC GRAVITY UA (POCT) >=1.030 1.005 - 1.030 [facility] UROBILINOGEN UA (POCT) 0.2 E.U./dL Viktoriya l E.U./dL [facility] Basophil percentageOrdered B y: Rachel Johnson on 01-11-2023 Bilirubin [Mass/Vol] 0.30 mg/dL 0.20-1.00 [facility] Comment on above: For patients on eltr ombopag therapy, use of Dimension Ovid TBIL is not recommended. Chloride [Moles/Vol] 104 mmol/L 98-107 [facility] Glucose [Mass/Vol] 101 mg/dL 74-106 [facility] Comment on above: Fasting Glucose resu lt from 100 to 125 mg/dL suggests IMPAIRED HOMEOSTASIS per A.D.A. criteria. Potassium [Moles/Vol] 3.6 mmol/L 3.5-5.1 [facility] Protein [Mass/Vol] 7.7 g/dL 6.4-8.2 [facility] Sodium [Moles/Vol] 140 mmol/L 136-145 [facility] Laboratory - Chemistry and C hemistry - challengeOrdered By: Rachel Johnson on 01-11-2023 ALP [Catalytic activity/Vol] 70 U/L 45-117 [facility] ALT [Catalytic activity/Vol] 29 U/L 13-56 [facility] CO2 [Moles/Vol] 28.0 mmol/L 21.0-32.0 [facility] Globulin (S) [Mass/Vol] 4.7 g/dL 2.2-4.2 [facility] Urea nitrogen/Creatinine [Mass ratio] 13.7 mg/mg 10-20 [facility] No Panel InformationOrdered By: Rachel Johnson on 01-11-2023 Estimated GFR (MDRD) Amer 75 mL/min >60 [facility] Comment on above: GFR Calc Estimated GFR (MDRD) Non-Af Amer 62 mL/min >60 [facility] Comment on above: Non- GFR Calc Serum or plasma albumin juan urement (mass/volume)Ordered By: Rachel Johnson on 05-30-2023 Albumin [Mass/Vol] 3.0 g/dL 3.2-5.0 [facility] Serum or plasma albumin/glob ulin mass ratioOrdered By: Rachel Johnson on 01-11-2023 Albumin/Globulin [Mass ratio] 0.6 {ratio} 0.9-2.4 [facility] Serum or plasma calcium juan urement (mass/volume)Ordered By: Rachel Johnson on 01-11-2023 Calcium [Mass/Vol] 8.9 mg/dL 8.5-10.1 [facility] Serum or plasma creatinine m easurement (mass/volume)Ordered By: Rachel Johnson on 01-11-2023 Creatinine [Mass/Vol] 0.95 mg/dL 0.55-1.02 [facility] Comment on above: The validity of the calculated GFR & GFRAA in patients over 70 years has not been determined. Clinical correlation is essential. Serum or plasma urea nitroge n measurement (mass/volume)Ordered By: Rachel Johnson on 01-11-2023 Urea nitrogen [Mass/Vol] 13 mg/dL 7-18 [facility] Thin prep Papanicolaou smear with manual screeningOrdered By: [facility] Alex on 01-11-2023 Thin prep Papanicolaou smear with manual screening 22 U/L 15-37 [facility] Thin prep Papanicolaou smear with manual screening 8 5-15 [facility] Absolute lymphocyte countOrd ered By: Rachel Johnson on 12-10-2022 Lymphocytes Auto (Unsp spec) [#/Vol] 1.98 10*3/uL 0.83-4.51 [facility] Basophil percentageOrdered B y: Rachel Johnson on 12-10-2022 Basophils/100 WBC (Bld) 0.9 % 0-1 [facility] Bilirubin [Mass/Vol] 0.30 mg/dL 0.20-1.00 [facility] Comment on above: For patients on eltr ombopag therapy, use of Dimension Ovid TBIL is not recommended. Chloride [Moles/Vol] 98 mmol/L 98-107 [facility] Eosinophils/100 WBC (Bld) 2.6 % 0-5 [facility] Glucose [Mass/Vol] 463 mg/dL 74-106 [facility] Comment on above: Paged On-call doctor at: 16:27:03 12/10/2022 by: FARZAD JUAREZ. Waiting for return call.Glucose result greater than or equal to 200 mg/dLsuggests DIABETES MELLITUS per A.D.A. criteria. Neutrophils (Bld) [#/Vol] 5.5 10*3/uL 2.0-7.7 [facility] Neutrophils/100 WBC (Bld) 64.7 % 47-70 [facility] Potassium [Moles/Vol] 3.8 mmol/L 3.5-5.1 [facility] Protein [Mass/Vol] 8.2 g/dL 6.4-8.2 [facility] Sodium [Moles/Vol] 132 mmol/L 136-145 [facility] WBC (Bld) [#/Vol] 8.5 10*3/uL 4.4-11.0 [facility] Blood erythrocytes count (nu mber/volume)Ordered By: Rachel Johnson on 12-10-2022 RBC (Bld) [#/Vol] 4.17 10*6/uL 4.2-5.4 [facility] Blood hemoglobin measurement (mass/volume)Ordered By: Rachel Johnson on 12-10-2022 Hemoglobin (Bld) [Mass/Vol] 13.0 g/dL 12.0-15.0 [facility] Blood lymphocytes/100 leukoc ytesOrdered By: Rachel Johnson on 12-10-2022 Lymphocytes/100 WBC (Bld) 23.3 % 19-41 [facility] Blood monocytes/100 leukocyt esOrdered By: Rachel Johnson on 12-10-2022 Monocytes/100 WBC (Bld) 7.2 % 0-10 [facility] Blood platelet mean volumeOr dered By: Rachel Johnson on 12-10-2022 Platelet mean volume (Bld) [Entitic vol] 9.7 fL 6.2-12.0 [facility] Determination of erythrocyte mean corpuscular volume (MCV)Ordered By: Rachel Johnson on 12-10-2022 MCV (RBC) [Entitic vol] 96.9 fL 81-99 [facility] Hematocrit Auto (Bld) [Volum e fraction]Ordered By: Rachel Johnson on 12-10-2022 Hematocrit (Bld) [Volume fraction] 40.4 % 37-47 [facility] Laboratory - Chemistry and C hemistry - challengeOrdered By: Rachel Johnson on 12-10-2022 ALP [Catalytic activity/Vol] 66 U/L 45-117 [facility] ALT [Catalytic activity/Vol] 27 U/L 13-56 [facility] CO2 [Moles/Vol] 28.0 mmol/L 21.0-32.0 [facility] Globulin (S) [Mass/Vol] 5.1 g/dL 2.2-4.2 [facility] Urea nitrogen/Creatinine [Mass ratio] 16.1 mg/mg 10-20 [facility] Laboratory - Hematology and Cell countsOrdered By: Rachel Johnson on 12-10-2022 Erythrocyte distribution width (RBC) [Entitic vol] 46.6 fL 35.1-43.9 [facility] Erythrocyte distribution width (RBC) [Ratio] 13.2 % 11.6-14.6 [facility] Immature granulocytes/100 WBC (Bld) 1.300 % 0.0-0.9 [facility] Comment on above: IG% - Immature Granu locytes (promyelocytes, myelocytes and metamyelocytes) > 1% indicates that a LEFT SHIFT is Present. MCH (RBC) [Entitic mass] 31.2 pg 27.0-32.0 [facility] Nucleated RBC/100 WBC (Bld) [Ratio] 0 % 0-5 [facility] MCHC Auto (RBC) [Mass/Vol]Or dered By: Rachel Johnson on 12-10-2022 MCHC (RBC) [Mass/Vol] 32.2 g/dL 32-36 [facility] No Panel InformationOrdered By: Rachel Johnson on 12-10-2022 Estimated GFR (MDRD) Amer 58 mL/min >60 [facility] Comment on above: GFR Calc Estimated GFR (MDRD) Non-Af Amer 48 mL/min >60 [facility] Comment on above: Non- GFR Calc Platelets bldOrdered By: Gurjit Johnson on 12-10-2022 Platelets (Bld) [#/Vol] 291 10*3/uL 150-450 [facility] Serum or plasma albumin juan urement (mass/volume)Ordered By: Rachel Johnson on 12-10-2022 Albumin [Mass/Vol] 3.1 g/dL 3.2-5.0 [facility] Serum or plasma albumin/glob ulin mass ratioOrdered By: Rachel Johnson on 12-10-2022 Albumin/Globulin [Mass ratio] 0.6 {ratio} 0.9-2.4 [facility] Serum or plasma calcium juan urement (mass/volume)Ordered By: Rachel Johnson on 12-10-2022 Calcium [Mass/Vol] 9.1 mg/dL 8.5-10.1 [facility] Serum or plasma creatinine m easurement (mass/volume)Ordered By: Rachel Johnson on 12-10-2022 Creatinine [Mass/Vol] 1.18 mg/dL 0.55-1.02 [facility] Comment on above: The validity of the calculated GFR & GFRAA in patients over 70 years has not been determined. Clinical correlation is essential. Serum or plasma urea nitroge n measurement (mass/volume)Ordered By: Rachel Johnson on 12-10-2022 Urea nitrogen [Mass/Vol] 19 mg/dL 7-18 [facility] Thin prep Papanicolaou smear with manual screeningOrdered By: Rachel Johnson on 12-10-2022 Thin prep Papanicolaou smear with manual screening 18 U/L 15-37 [facility] Thin prep Papanicolaou smear with manual screening 6 5-15 [facility] CBC W Auto Differential pane l (Bld)on 12-07-2022 Basophils (Bld) [#/Vol] 0.09 10*3/uL <0.11 k/uL [facility] Basophils/100 WBC (Bld) 1.1 % [facility] Differential cell count method Nom (Bld) Auto [facility] Eosinophils (Bld) [#/Vol] 0.25 10*3/uL <0.46 k/uL [facility] Eosinophils/100 WBC (Bld) 3.1 % [facility] Erythrocyte distribution width (RBC) [Ratio] 13.0 % 11.5 - 15.0 % [facility] Hematocrit (Bld) [Volume fraction] 40.8 % 36.0 - 46.0 % [facility] Hemoglobin (Bld) [Mass/Vol] 13.0 g/dL 11.5 - 15.5 g/dL [facility] Immature granulocytes (Bld) [#/Vol] 0.07 10*3/uL <0.10 k/uL [facility] Immature granulocytes/100 WBC (Bld) 0.9 % [facility] Lymphocytes (Bld) [#/Vol] 1.96 10*3/uL 1.00 - 4.00 k/uL [facility] Lymphocytes/100 WBC (Bld) 23.9 % [facility] MCH (RBC) [Entitic mass] 31.6 pg 26. 0 - 34.0 pg [facility] MCHC (RBC) [Mass/Vol] 31.9 g/dL 30.5 - 36.0 g/dL [facility] MCV (RBC) [Entitic vol] 99.0 fL 80.0 - 100.0 fL [facility] Monocytes (Bld) [#/Vol] 0.53 10*3/uL <0.87 k/uL [facility] Monocytes/100 WBC (Bld) 6.5 % [facility] Neutrophils (Bld) [#/Vol] 5.29 10*3/uL 1.45 - 7.50 k/uL [facility] Neutrophils/100 WBC (Bld) 64.5 % [facility] Nucleated RBC (Bld) [#/Vol] <0.01 k/uL [facility] Nucleated RBC/100 WBC (Bld) [Ratio] 0.0 /100 WBC [facility] Platelet mean volume (Bld) [Entitic vol] 9.7 fL 9.0 - 12.7 fL [facility] Platelets (Bld) [#/Vol] 260 10*3/uL 150 - 400 k/uL [facility] RBC (Bld) [#/Vol] 4.12 10*6/uL 3.90 - 5.2 0 m/uL [facility] WBC (Bld) [#/Vol] 8.19 10*3/uL 3.70 - 11.00 k/uL [facility] Absolute lymphocyte countOrd ered By: Omar Arambula on 04-22-2023 Lymphocytes Auto (Unsp spec) [#/Vol] 2.53 10*3/uL 0.83-4.51 [facility] Basophil percentageOrdered B y: Omar Arambula on 12-04-2022 Basophils/100 WBC (Bld) 1.1 % 0-1 [facility] Chloride [Moles/Vol] 102 mmol/L 98-107 [facility] Eosinophils/100 WBC (Bld) 1.6 % 0-5 [facility] Glucose [Mass/Vol] 98 mg/dL 74-106 [facility] Neutrophils (Bld) [#/Vol] 7.6 10*3/uL 2.0-7.7 [facility] Neutrophils/100 WBC (Bld) 67.2 % 47-70 [facility] Potassium [Moles/Vol] 3.4 mmol/L 3.5-5.1 [facility] Comment on above: Moderate Hemolysis, Result may be falsely increased. Sodium [Moles/Vol] 132 mmol/L 136-145 [facility] WBC (Bld) [#/Vol] 11.3 10*3/uL 4.4-11.0 [facility] Blood erythrocytes count (nu mber/volume)Ordered By: Omar Arambula on 12-04-2022 RBC (Bld) [#/Vol] 4.43 10*6/uL 4.2-5.4 [facility] Blood hemoglobin measurement (mass/volume)Ordered By: Omar Arambula on 12-04-2022 Hemoglobin (Bld) [Mass/Vol] 13.9 g/dL 12.0-15.0 [facility] Blood lymphocytes/100 leukoc ytesOrdered By: Omar Arambula on 12-04-2022 Lymphocytes/100 WBC (Bld) 22.3 % 19-41 [facility] Blood monocytes/100 leukocyt esOrdered By: Omar Arambula on 12-04-2022 Monocytes/100 WBC (Bld) 6.3 % 0-10 [facility] Blood platelet adequacy dete ction by light microscopyOrdered By: Omar Arambula on 12-04-2022 Platelets LM Ql (Bld) ADEQUATE ADEQ [facility] Blood platelet mean volumeOr dered By: Omar Arambula on 12-04-2022 Platelet mean volume (Bld) [Entitic vol] 10.6 fL 6.2-12.0 [facility] Blood platelet morphology de termination (nominal result)Ordered By: Omar Arambula on 12-04-2022 Platelet morphology finding Nom (Bld) CLUMPED [facility] Determination of erythrocyte mean corpuscular volume (MCV)Ordered By: Omar Arambula on 12-04-2022 MCV (RBC) [Entitic vol] 96.2 fL 81-99 [facility] Hematocrit Auto (Bld) [Volum e fraction]Ordered By: Omar Arambula on 12-04-2022 Hematocrit (Bld) [Volume fraction] 42.6 % 37-47 [facility] Laboratory - Chemistry and C hemistry - challengeOrdered By: Omar rAambula on 12-04-2022 CK [Catalytic activity/Vol] 145 U/L 26-192 [facility] Comment on above: Moderate Hemolysis, Result may be falsely increased. CO2 [Moles/Vol] 24.0 mmol/L 21.0-32.0 [facility] Magnesium [Mass/Vol] 1.9 mg/dL 1.6-2.6 [facility] Comment on above: Moderate Hemolysis, Result may be falsely increased. Urea nitrogen/Creatinine [Mass ratio] 11.2 mg/mg 10-20 [facility] Laboratory - Hematology and Cell countsOrdered By: Omar Arambula on 12-04-2022 Erythrocyte distribution width (RBC) [Entitic vol] 45.3 fL 35.1-43.9 [facility] Erythrocyte distribution width (RBC) [Ratio] 12.8 % 11.6-14.6 [facility] Immature granulocytes/100 WBC (Bld) 1.500 % 0.0-0.9 [facility] Comment on above: IG% - Immature Granu locytes (promyelocytes, myelocytes and metamyelocytes) > 1% indicates that a LEFT SHIFT is Present. MCH (RBC) [Entitic mass] 31.4 pg 27.0-32.0 [facility] Nucleated RBC/100 WBC (Bld) [Ratio] 0 % 0-5 [facility] MCHC Auto (RBC) [Mass/Vol]Or dered By: Omar Arambula on 12-04-2022 MCHC (RBC) [Mass/Vol] 32.6 g/dL 32-36 [facility] No Panel InformationOrdered By: Omar Arambula on 12-04-2022 Estimated Creatinine Clearance Calc 35.69 ml/min [facility] Estimated GFR (MDRD) Amer 59 mL/min >60 [facility] Comment on above: GFR Calc Estimated GFR (MDRD) Non-Af Amer 49 mL/min >60 [facility] Comment on above: Non- GFR Calc Troponin I High Sensitivity 6 pg/mL 3.0-54.0 [facility] Comment on above: Please Note: New Terri t Units and Gender Specific Reference Ranges. For more information see Policy Stat Procedure Ovid High Sensitivity Troponin (TNIH) and attachments. Platelets bldOrdered By: Zoran Arambula on 12-04-2022 Platelets (Bld) [#/Vol] TNP [facility] Comment on above: Test not performedPr evious reported result: 261 [id number] by: SHARAD on 12/04/22:0430 AMENDED REPORT 12/04/22 0430 PLT previously reported as: 261 K/mm3 Serum or plasma calcium juan urement (mass/volume)Ordered By: Omar Arambula on 12-04-2022 Calcium [Mass/Vol] 9.7 mg/dL 8.5-10.1 [facility] Serum or plasma creatinine m easurement (mass/volume)Ordered By: Omar Arambula on 12-04-2022 Creatinine [Mass/Vol] 1.16 mg/dL 0.55-1.02 [facility] Comment on above: The validity of the calculated GFR & GFRAA in patients over 70 years has not been determined. Clinical correlation is essential. Serum or plasma urea nitroge n measurement (mass/volume)Ordered By: Omar Arambula on 12-04-2022 Urea nitrogen [Mass/Vol] 13 mg/dL 7-18 [facility] Thin prep Papanicolaou smear with manual screeningOrdered By: Omar Arambula on 12-04-2022 Thin prep Papanicolaou smear with manual screening 6 5-15 [facility] Laboratory - Hematology and Cell countson 10-20-2022 HbA1c (Bld) [Mass fraction] 11.2 % 4.2-6.3 [facility] JACQUELYN SCREENING W TOMOon 10-[address] [facility] [address] CHEST WO IVCONon 10-01-19 Radiology Result ACTIONABLE Abnormal [facility] Absolute lymphocyte countOrd ered By: Dr. Johnson on 09-15-2022 Lymphocytes Auto (Unsp spec) [#/Vol] 2.02 10*3/uL 0.83-4.51 [facility] Basophil percentageOrdered B y: Dr. Johnson on 09-15-2022 Basophils/100 WBC (Bld) 0.9 % 0-1 [facility] Bilirubin [Mass/Vol] 0.40 mg/dL 0.20-1.00 [facility] Comment on above: For patients on eltr ombopag therapy, use of Dimension Ovid TBIL is not recommended. Chloride [Moles/Vol] 101 mmol/L 98-107 [facility] Eosinophils/100 WBC (Bld) 2.9 % 0-5 [facility] Glucose [Mass/Vol] 212 mg/dL 74-106 [facility] Comment on above: Glucose result great er than or equal to 200 mg/dLsuggests DIABETES MELLITUS per A.D.A. criteria. Neutrophils (Bld) [#/Vol] 4.8 10*3/uL 2.0-7.7 [facility] Neutrophils/100 WBC (Bld) 60.7 % 47-70 [facility] Potassium [Moles/Vol] 4.3 mmol/L 3.5-5.1 [facility] Protein [Mass/Vol] 7.3 g/dL 6.4-8.2 [facility] Sodium [Moles/Vol] 138 mmol/L 136-145 [facility] WBC (Bld) [#/Vol] 7.9 10*3/uL 4.4-11.0 [facility] Blood erythrocytes count (nu mber/volume)Ordered By: Dr. Johnson on 09-15-2022 RBC (Bld) [#/Vol] 3.98 10*6/uL 4.2-5.4 [facility] Blood hemoglobin measurement (mass/volume)Ordered By: Dr. Johnson on 09-15-2022 Hemoglobin (Bld) [Mass/Vol] 12.2 g/dL 12.0-15.0 [facility] Blood lymphocytes/100 leukoc ytesOrdered By: Dr. Johnson on 09-15-2022 Lymphocytes/100 WBC (Bld) 25.6 % 19-41 [facility] Blood monocytes/100 leukocyt esOrdered By: Dr. Johnson on 09-15-2022 Monocytes/100 WBC (Bld) 9.0 % 0-10 [facility] Blood platelet mean volumeOr dered By: Dr. Johnson on 09-15-2022 Platelet mean volume (Bld) [Entitic vol] 9.3 fL 6.2-12.0 [facility] Determination of erythrocyte mean corpuscular volume (MCV)Ordered By: Dr. Johnson on 09-15-2022 MCV (RBC) [Entitic vol] 95.5 fL 81-99 [facility] Hematocrit Auto (Bld) [Volum e fraction]Ordered By: Dr. Johnson on 09-15-2022 Hematocrit (Bld) [Volume fraction] 38.0 % 37-47 [facility] Laboratory - Chemistry and C hemistry - challengeOrdered By: Dr. Johnson on 09-15-2022 ALP [Catalytic activity/Vol] 52 U/L 45-117 [facility] ALT [Catalytic activity/Vol] 18 U/L 13-56 [facility] CO2 [Moles/Vol] 29.0 mmol/L 21.0-32.0 [facility] Globulin (S) [Mass/Vol] 4.2 g/dL 2.2-4.2 [facility] Urea nitrogen/Creatinine [Mass ratio] 15.2 mg/mg 10-20 [facility] Laboratory - Hematology and Cell countsOrdered By: Dr. Johnson on 09-15-2022 Erythrocyte distribution width (RBC) [Entitic vol] 44.9 fL 35.1-43.9 [facility] Erythrocyte distribution width (RBC) [Ratio] 13.2 % 11.6-14.6 [facility] Immature granulocytes/100 WBC (Bld) 0.900 % 0.0-0.9 [facility] Comment on above: IG% - Immature Granu locytes (promyelocytes, myelocytes and metamyelocytes) > 1% indicates that a LEFT SHIFT is Present. MCH (RBC) [Entitic mass] 30.7 pg 27.0-32.0 [facility] Nucleated RBC/100 WBC (Bld) [Ratio] 0 % 0-5 [facility] MCHC Auto (RBC) [Mass/Vol]Or dered By: Dr. Johnson on 09-15-2022 MCHC (RBC) [Mass/Vol] 32.1 g/dL 32-36 [facility] No Panel InformationOrdered By: Dr. Johnson on 09-15-2022 Estimated GFR (MDRD) Amer 67 mL/min >60 [facility] Comment on above: GFR Calc Estimated GFR (MDRD) Non-Af Amer 55 mL/min >60 [facility] Comment on above: Non- GFR Calc Platelets bldOrdered By: Dr. Johnson on 09-15-2022 Platelets (Bld) [#/Vol] 282 10*3/uL 150-450 [facility] Serum or plasma albumin juan urement (mass/volume)Ordered By: Dr. Johnson on 09-15-2022 Albumin [Mass/Vol] 3.1 g/dL 3.2-5.0 [facility] Serum or plasma albumin/glob ulin mass ratioOrdered By: Dr. Johnson on 09-15-2022 Albumin/Globulin [Mass ratio] 0.7 {ratio} 0.9-2.4 [facility] Serum or plasma calcium juan urement (mass/volume)Ordered By: Dr. Johnson on 09-15-2022 Calcium [Mass/Vol] 8.8 mg/dL 8.5-10.1 [facility] Serum or plasma creatinine m easurement (mass/volume)Ordered By: Dr. Johnson on 09-15-2022 Creatinine [Mass/Vol] 1.05 mg/dL 0.55-1.02 [facility] Comment on above: The validity of the calculated GFR & GFRAA in patients over 70 years has not been determined. Clinical correlation is essential. Serum or plasma urea nitroge n measurement (mass/volume)Ordered By: Dr. Johnson on 02-01-2023 Urea nitrogen [Mass/Vol] 16 mg/dL 7-18 [facility] Thin prep Papanicolaou smear with manual screeningOrdered By: Dr. Johnson on 09-15-2022 Thin prep Papanicolaou smear with manual screening 17 U/L 15-37 [facility] Thin prep Papanicolaou smear with manual screening 8 5-15 [facility] Absolute lymphocyte countOrd ered By: Dr. Johnson on 06-18-2022 Lymphocytes Auto (Unsp spec) [#/Vol] 2.32 10*3/uL 0.83-4.51 [facility] Basophil percentageOrdered B y: Dr. Johnson on 06-18-2022 Basophils/100 WBC (Bld) 1.0 % 0-1 [facility] Bilirubin [Mass/Vol] 0.30 mg/dL 0.20-1.00 [facility] Comment on above: For patients on eltr ombopag therapy, use of Dimension Ovid TBIL is not recommended. Chloride [Moles/Vol] 102 mmol/L 98-107 [facility] Eosinophils/100 WBC (Bld) 3.8 % 0-5 [facility] Glucose [Mass/Vol] 282 mg/dL 74-106 [facility] Comment on above: Glucose result great er than or equal to 200 mg/dLsuggests DIABETES MELLITUS per A.D.A. criteria. Neutrophils (Bld) [#/Vol] 4.1 10*3/uL 2.0-7.7 [facility] Neutrophils/100 WBC (Bld) 55.2 % 47-70 [facility] Potassium [Moles/Vol] 4.0 mmol/L 3.5-5.1 [facility] Protein [Mass/Vol] 7.6 g/dL 6.4-8.2 [facility] Sodium [Moles/Vol] 138 mmol/L 136-145 [facility] WBC (Bld) [#/Vol] 7.4 10*3/uL 4.4-11.0 [facility] Blood erythrocytes count (nu mber/volume)Ordered By: Dr. Johnson on 06-18-2022 RBC (Bld) [#/Vol] 4.21 10*6/uL 4.2-5.4 [facility] Blood hemoglobin measurement (mass/volume)Ordered By: Dr. Johnson on 06-18-2022 Hemoglobin (Bld) [Mass/Vol] 13.1 g/dL 12.0-15.0 [facility] Blood lymphocytes/100 leukoc ytesOrdered By: Dr. Johnson on 06-18-2022 Lymphocytes/100 WBC (Bld) 31.6 % 19-41 [facility] Blood monocytes/100 leukocyt esOrdered By: Dr. Johnson on 06-18-2022 Monocytes/100 WBC (Bld) 7.9 % 0-10 [facility] Blood platelet mean volumeOr dered By: Dr. Johnson on 06-18-2022 Platelet mean volume (Bld) [Entitic vol] 9.9 fL 6.2-12.0 [facility] Determination of erythrocyte mean corpuscular volume (MCV)Ordered By: Dr. Johnson on 06-18-2022 MCV (RBC) [Entitic vol] 93.6 fL 81-99 [facility] Hematocrit Auto (Bld) [Volum e fraction]Ordered By: Dr. Johnson on 06-18-2022 Hematocrit (Bld) [Volume fraction] 39.4 % 37-47 [facility] Laboratory - Chemistry and C hemistry - challengeOrdered By: Dr. Johnson on 06-18-2022 ALP [Catalytic activity/Vol] 52 U/L 45-117 [facility] ALT [Catalytic activity/Vol] 14 U/L 13-56 [facility] CO2 [Moles/Vol] 29.0 mmol/L 21.0-32.0 [facility] Globulin (S) [Mass/Vol] 4.5 g/dL 2.2-4.2 [facility] Urea nitrogen/Creatinine [Mass ratio] 20.9 mg/mg 10-20 [facility] Laboratory - Hematology and Cell countsOrdered By: Dr. Johnson on 06-18-2022 Erythrocyte distribution width (RBC) [Entitic vol] 44.5 fL 35.1-43.9 [facility] Erythrocyte distribution width (RBC) [Ratio] 13.1 % 11.6-14.6 [facility] Immature granulocytes/100 WBC (Bld) 0.500 % 0.0-0.9 [facility] Comment on above: IG% - Immature Granu locytes (promyelocytes, myelocytes and metamyelocytes) > 1% indicates that a LEFT SHIFT is Present. MCH (RBC) [Entitic mass] 31.1 pg 27.0-32.0 [facility] Nucleated RBC/100 WBC (Bld) [Ratio] 0 % 0-5 [facility] MCHC Auto (RBC) [Mass/Vol]Or dered By: Dr. Johnson on 06-18-2022 MCHC (RBC) [Mass/Vol] 33.2 g/dL 32-36 [facility] No Panel InformationOrdered By: Dr. Johnson on 06-18-2022 Estimated GFR (MDRD) Amer 79 mL/min >60 [facility] Comment on above: GFR Calc Estimated GFR (MDRD) Non-Af Amer 65 mL/min >60 [facility] Comment on above: Non- GFR Calc Platelets bldOrdered By: Dr. Johnson on 06-18-2022 Platelets (Bld) [#/Vol] 279 10*3/uL 150-450 [facility] Serum or plasma albumin juan urement (mass/volume)Ordered By: Dr. Johnson on 06-18-2022 Albumin [Mass/Vol] 3.1 g/dL 3.2-5.0 [facility] Serum or plasma albumin/glob ulin mass ratioOrdered By: Dr. Johnson on 06-18-2022 Albumin/Globulin [Mass ratio] 0.7 {ratio} 0.9-2.4 [facility] Serum or plasma calcium juan urement (mass/volume)Ordered By: Dr. Johnson on 06-18-2022 Calcium [Mass/Vol] 9.1 mg/dL 8.5-10.1 [facility] Serum or plasma creatinine m easurement (mass/volume)Ordered By: Dr. Johnson on 06-18-2022 Creatinine [Mass/Vol] 0.91 mg/dL 0.55-1.02 [facility] Comment on above: The validity of the calculated GFR & GFRAA in patients over 70 years has not been determined. Clinical correlation is essential. Serum or plasma urea nitroge n measurement (mass/volume)Ordered By: Dr. Johnson on 06-18-2022 Urea nitrogen [Mass/Vol] 19 mg/dL 7-18 [facility] Thin prep Papanicolaou smear with manual screeningOrdered By: Dr. Johnson on 06-18-2022 Thin prep Papanicolaou smear with manual screening 12 U/L 15-37 [facility] Thin prep Papanicolaou smear with manual screening 7 5-15 [facility] Laboratory - Hematology and Cell countson 05-27-2022 HbA1c (Bld) [Mass fraction] 11.3 % 4.2-6.3 [facility] Work Phone: * Body fluid crystals type b y light microscopyon 05-02-2022 Crystals LM Nom (Body fld) SEE PATH REV [facility] Work Phone: Absolute lymphocyte counton 05-02-2022 Lymphocytes Auto (Unsp spec) [#/Vol] 1.57 10*3/uL 0.83-4.51 [facility] Work Phone: Basophil percentageon 2021 Basophils/100 WBC (Bld) 0.6 % 0-1 [facility] Work Phone: Chloride [Moles/Vol] 93 mmol/L 98-107 [facility] Work Phone: Eosinophils/100 WBC (Bld) 1.3 % 0-5 [facility] Work Phone: Glucose [Mass/Vol] 576 mg/dL 74-106 [facility] Work Phone: Comment on above: Critical Result(s) C alled at: 11:31:44 05/02/2022 by: Cesar Florian RN (ER). Results read back by same.Glucose result greater than or equal to 200 mg/dLsuggests DIABETES MELLITUS per A.D.A. criteria. Neutrophils (Bld) [#/Vol] 8.1 10*3/uL 2.0-7.7 [facility] Work Phone: Neutrophils/100 WBC (Bld) 75.2 % 47-70 [facility] Work Phone: Potassium [Moles/Vol] 4.3 mmol/L 3.5-5.1 [facility] Work Phone: Comment on above: Slight Hemolysis, Re sult may be falsely increased. Sodium [Moles/Vol] 129 mmol/L 136-145 [facility]: WBC (Bld) [#/Vol] 10.8 10*3/uL 4.4-11.0 [facility] Work Phone: Blood erythrocytes count (nu mber/volume)on 05-02-2022 RBC (Bld) [#/Vol] 4.45 10*6/uL 4.2-5.4 [facility] Work Phone: Blood hemoglobin measurement (mass/volume)on 05-02-2022 Hemoglobin (Bld) [Mass/Vol] 13.7 g/dL 12.0-15.0 [facility] Work Phone: Blood lymphocytes/100 leukoc yteson 05-02-2022 Lymphocytes/100 WBC (Bld) 14.6 % 19-41 [facility] Work Phone: Blood monocytes/100 leukocyt eson 05-02-2022 Monocytes/100 WBC (Bld) 7.7 % 0-10 [facility] Work Phone: Blood platelet mean volumeon 05-02-2022 Platelet mean volume (Bld) [Entitic vol] 10.1 fL 6.2-12.0 [facility] Work Phone: Determination of erythrocyte mean corpuscular volume (MCV)on 05-02-2022 MCV (RBC) [Entitic vol] 93.7 fL 81-99 [facility] Work Phone: Erythrocyte sedimentation ra delbert 05-02-2022 ESR (Bld) [Velocity] 49 mm/h 0-30 [facility] Work [facility]: Hematocrit Auto (Bld) [Volum e fraction]on 05-02-2022 Hematocrit (Bld) [Volume fraction] 41.7 % 37-47 [facility] Work Phone: Laboratory - Chemistry and C hemistry - challengeon 05-02-2022 CO2 [Moles/Vol] 27.0 mmol/L 21.0-32.0 [facility] Work Phone: Urea nitrogen/Creatinine [Mass ratio] 16.5 mg/mg 10-20 [facility] Work Phone: Laboratory - Hematology and Cell countson 05-02-2022 Erythrocyte distribution width (RBC) [Entitic vol] 43.8 fL 35.1-43.9 [facility] Work Phone: Erythrocyte distribution width (RBC) [Ratio] 12.8 % 11.6-14.6 [facility] Work Phone: Immature granulocytes/100 WBC (Bld) 0.600 % 0.0-0.9 [facility] Work Phone: Comment on above: IG% - Immature Granu locytes (promyelocytes, myelocytes and metamyelocytes) > 1% indicates that a LEFT SHIFT is Present. MCH (RBC) [Entitic mass] 30.8 pg 27.0-32.0 [facility] Work Phone: Nucleated RBC/100 WBC (Bld) [Ratio] 0 % 0-5 [facility] Work Phone: MCHC Auto (RBC) [Mass/Vol]on 05-02-2022 MCHC (RBC) [Mass/Vol] 32.9 g/dL 32-36 [facility] Work Phone: No Panel Informationon 05-02 Estimated Creatinine Clearance Calc 34.71 ml/min [facility] Work Phone: Estimated GFR (MDRD) Amer 57 mL/min >60 [facility] Work Phone: Comment on above: GFR Calc Estimated GFR (MDRD) Non-Af Amer 47 mL/min >60 [facility] Work Phone: Comment on above: Non- GFR Calc Platelets bldon 05-02-2022 Platelets (Bld) [#/Vol] 252 10*3/uL 150-450 [facility] Work Phone: Review by pathologiston 04-15 Pathologist review Richar (Unsp spec) [Interp] Will follow [facility] Work Phone: Pathologist review Richar (Unsp spec) [Interp] Reviewed [facility] Work Phone: Comment on above: Previous reported re sult: Will follow Edited by: RGOELIU on 05/03/22:1318Negative for crystals.Ru Leroy M.D. 05/03/22 AMENDED REPORT 05/03/22 1318 PATH REV previously reported as: Will follow Serum or plasma C reactive p rotein measurement (mass/volume)on 05-02-2022 CRP [Mass/Vol] 49.40 mg/L 0.0-3.0 [facility] Work Phone: Comment on above: C-Reactive Protein ( CRP) provides useful information for thediagnosis, therapy and monitoring of inflammatory processesand associated diseases. For the evaluation of Relative Riskfor Cardiovascular Disease, a High Sensitivity CRP (HSCRP)should be ordered. Serum or plasma calcium juan urement (mass/volume)on 05-02-2022 Calcium [Mass/Vol] 9.7 mg/dL 8.5-10.1 [facility] Work Phone: Serum or plasma creatinine m easurement (mass/volume)on 05-02-2022 Creatinine [Mass/Vol] 1.21 mg/dL 0.55-1.02 [facility] Work Phone: Comment on above: The validity of the calculated GFR & GFRAA in patients over 70 years has not been determined. Clinical correlation is essential. Serum or plasma urea nitroge n measurement (mass/volume)on 05-02-2022 Urea nitrogen [Mass/Vol] 20 mg/dL 03-01 [facility] Work Phone: Serum or plasma uric acid me asurement (mass/volume)on 05-02-2022 Urate [Mass/Vol] 5.5 mg/dL 2.6-6.0 [facility] Work Phone: Comment on above: The drugs N-Acetylcy steine and Metamizole may falsely depress this assay. Specimen source identificati on of body fluidon 05-02-2022 Specimen source Nom (Body fld) SYNOVIAL [facility] Work Phone: Thin prep Papanicolaou smear with manual screeningon 05-02-2022 Thin prep Papanicolaou smear with manual screening 12-27 [facility] Work Phone: CBC panel Auto (Bld)on 04-06 Erythrocyte distribution width (RBC) [Ratio] 13.1 % 11.5 - 15.0 % [facility] Hematocrit (Bld) [Volume fraction] 39.2 % 36.0 - 46.0 % [facility] Hemoglobin (Bld) [Mass/Vol] 12.7 g/dL 11.5 - 15.5 g/dL [facility] MCH (RBC) [Entitic mass] 30.5 pg 26. 0 - 34.0 pg [facility] MCHC (RBC) [Mass/Vol] 32.4 g/dL 30.5 - 36.0 g/dL [facility] MCV (RBC) [Entitic vol] 94.2 fL 80.0 - 100.0 fL [facility] Nucleated RBC (Bld) [#/Vol] <0.01 k/uL [facility] Platelet mean volume (Bld) [Entitic vol] 10.2 fL 9.0 - 12.7 fL [facility] Platelets (Bld) [#/Vol] 279 10*3/uL 150 - 400 k/uL [facility] RBC (Bld) [#/Vol] 4.16 10*6/uL 3.90 - 5.2 0 m/uL [facility] WBC (Bld) [#/Vol] 7.75 10*3/uL 3.70 - 11.00 k/uL [facility] UA DIP, URINE (POC)on 2021 BILIRUBIN UA (POCT) Negative Negative [facility] CLARITY UA (POCT) [facility] COLOR UA (POCT) Yellow [facility] GLUCOSE UA (POCT) >=1000 Abnormal Negative mg/dL [facility] HEMOGLOBIN/BLOOD UA (POCT) Negative Negative [facility] KETONE UA (POCT) Negative Negative mg/dL [facility] LEUKOCYTES UA (POCT) Negative Negative [facility] NITRITE UA (POCT) Negative Negative [facility] PH UA (POCT) 5.0 4.5 - 8.0 [facility] Protein Ql (U) Negative Negative mg/dL [facility] SPECIFIC GRAVITY UA (POCT) 1.020 1.005 - 1.030 [facility] UROBILINOGEN UA (POCT) 0.2 E.U./dL Viktoriya l E.U./dL [facility] Absolute lymphocyte counton 03-19-2022 Lymphocytes Auto (Unsp spec) [#/Vol] 2.34 10*3/uL 0.83-4.51 [facility] Work Phone: Basophil percentageon 2021 Basophils/100 WBC (Bld) 0.8 % 0-1 [facility] Work Phone: Bilirubin [Mass/Vol] 0.30 mg/dL 0.20-1.00 [facility] Work Phone: Comment on above: For patients on eltr ombopag therapy, use of Dimension Ovid TBIL is not recommended. Chloride [Moles/Vol] 101 mmol/L 98-107 [facility] Work Phone: Eosinophils/100 WBC (Bld) 2.8 % 0-5 [facility] Work Phone: Glucose [Mass/Vol] 331 mg/dL 74-106 [facility] Work Phone: Comment on above: Glucose result great er than or equal to 200 mg/dLsuggests DIABETES MELLITUS per A.D.A. criteria. Neutrophils (Bld) [#/Vol] 3.9 10*3/uL 2.0-7.7 [facility] Work Phone: Neutrophils/100 WBC (Bld) 54.5 % 47-70 [facility] Work Phone: Potassium [Moles/Vol] 4.0 mmol/L 3.5-5.1 [facility] Work Phone: Protein [Mass/Vol] 7.5 g/dL 6.4-8.2 [facility] Work Phone: Sodium [Moles/Vol] 134 mmol/L 136-145 [facility] Work Phone: WBC (Bld) [#/Vol] 7.2 10*3/uL 4.4-11.0 [facility] Work Phone: Blood erythrocytes count (nu mber/volume)on 03-19-2022 RBC (Bld) [#/Vol] 4.18 10*6/uL 4.2-5.4 [facility] Work Phone: Blood hemoglobin measurement (mass/volume)on 03-19-2022 Hemoglobin (Bld) [Mass/Vol] 12.7 g/dL 12.0-15.0 [facility] Work Phone: Blood lymphocytes/100 leukoc yteson 03-19-2022 Lymphocytes/100 WBC (Bld) 32.7 % 19-41 [facility] Work Phone: Blood monocytes/100 leukocyt eson 03-19-2022 Monocytes/100 WBC (Bld) 8.5 % 0-10 [facility] Work Phone: Blood platelet mean volumeon 03-19-2022 Platelet mean volume (Bld) [Entitic vol] 9.8 fL 6.2-12.0 [facility] Work Phone: Determination of erythrocyte mean corpuscular volume (MCV)on 03-19-2022 MCV (RBC) [Entitic vol] 92.8 fL 81-99 [facility] Work Phone: Hematocrit Auto (Bld) [Volum e fraction]on 03-19-2022 Hematocrit (Bld) [Volume fraction] 38.8 % 37-47 [facility] Work Phone: [phone] Laboratory - Chemistry and C hemistry - challengeon 03-19-2022 ALP [Catalytic activity/Vol] 53 U/L 45-117 [facility] Work Phone: [phone] ALT [Catalytic activity/Vol] 21 U/L 13-56 [facility] Work Phone: [phone] CO2 [Moles/Vol] 27.0 mmol/L 21.0-32.0 [facility] Work Phone: [phone] Globulin (S) [Mass/Vol] 4.5 g/dL 2.2-4.2 [facility] Work Phone: [phone] Urea nitrogen/Creatinine [Mass ratio] 22.0 mg/mg 10-20 [facility] Work Phone: [phone] Laboratory - Hematology and Cell countson 03-19-2022 Erythrocyte distribution width (RBC) [Entitic vol] 42.2 fL 35.1-43.9 [facility] Work Phone: [phone] Erythrocyte distribution width (RBC) [Ratio] 12.4 % 11.6-14.6 [facility] Work Phone: [phone] Immature granulocytes/100 WBC (Bld) 0.700 % 0.0-0.9 [facility] Work Phone: [phone] Comment on above: IG% - Immature Granu locytes (promyelocytes, myelocytes and metamyelocytes) > 1% indicates that a LEFT SHIFT is Present. MCH (RBC) [Entitic mass] 30.4 pg 27.0-32.0 [facility] Work Phone: [phone] Nucleated RBC/100 WBC (Bld) [Ratio] 0 % 0-5 [facility] Work Phone: [phone] MCHC Auto (RBC) [Mass/Vol]on 03-19-2022 MCHC (RBC) [Mass/Vol] 32.7 g/dL 32-36 [facility] Work Phone: No Panel Informationon 03-19 Estimated GFR (MDRD) Amer 64 mL/min >60 [facility] Work Phone: Comment on above: GFR Calc Estimated GFR (MDRD) Non-Af Amer 53 mL/min >60 [facility] Work Phone: Comment on above: Non- GFR Calc Platelets bldon 03-19-2022 Platelets (Bld) [#/Vol] 265 10*3/uL 150-450 [facility] Work Phone: Serum or plasma albumin juan urement (mass/volume)on 03-19-2022 Albumin [Mass/Vol] 3.0 g/dL 3.2-5.0 [facility] Work Phone: Serum or plasma albumin/glob ulin mass ratioon 03-19-2022 Albumin/Globulin [Mass ratio] 0.7 {ratio} 0.9-2.4 [facility] Work Phone: Serum or plasma calcium juan urement (mass/volume)on 03-19-2022 Calcium [Mass/Vol] 9.0 mg/dL 8.5-10.1 [facility] Work Phone: Serum or plasma creatinine m easurement (mass/volume)on 03-19-2022 Creatinine [Mass/Vol] 1.09 mg/dL 0.55-1.02 [facility] Work Phone: Comment on above: The validity of the calculated GFR & GFRAA in patients over 70 years has not been determined. Clinical correlation is essential. Serum or plasma urea nitroge n measurement (mass/volume)on 03-19-2022 Urea nitrogen [Mass/Vol] 24 mg/dL 7-18 [facility] Work Phone: Thin prep Papanicolaou smear with manual screeningon 03-19-2022 Thin prep Papanicolaou smear with manual screening 11 U/L 15-37 [facility] Work Phone: Thin prep Papanicolaou smear with manual screening 6 5-15 [facility] Work Phone: Glucose Glucometer (BldC) [M ass/Vol]on 02-11-2022 Glucose [Mass/Vol] 266 mg/dL 74-106 [facility] Work Phone: Comment on above: MANAGEMENT OF PATIEN T CARE PER NURSING PROTOCOL Laboratory - Hematology and Cell countson 02-02-2022 HbA1c (Bld) [Mass fraction] 9.4 % [facility] Work Phone: [phone] Absolute lymphocyte counton 12-11-2021 Lymphocytes Auto (Unsp spec) [#/Vol] 1.66 10*3/uL 0.83-4.51 [facility] Work Phone: Basophil percentageon 2021 Basophils/100 WBC (Bld) 0.6 % 0-1 [facility] Work Phone: Bilirubin [Mass/Vol] 0.30 mg/dL 0.20-1.00 [facility] Work Phone: Comment on above: For patients on eltr ombopag therapy, use of Dimension Ovid TBIL is not recommended. Chloride [Moles/Vol] 107 mmol/L 98-107 [facility] Work Phone: [phone] Eosinophils/100 WBC (Bld) 3.4 % 0-5 [facility] Work Phone: Glucose [Mass/Vol] 81 mg/dL 74-106 [facility] Work Phone: [phone] Neutrophils (Bld) [#/Vol] 4.4 10*3/uL 2.0-7.7 [facility] Work Phone: [phone] Neutrophils/100 WBC (Bld) 65.7 % 47-70 [facility] Work Phone: [phone] Potassium [Moles/Vol] 3.5 mmol/L 3.5-5.1 [facility] Work Phone: [phone] Protein [Mass/Vol] 7.4 g/dL 6.4-8.2 [facility] Work Phone: Sodium [Moles/Vol] 142 mmol/L 136-145 [facility] Work Phone: WBC (Bld) [#/Vol] 6.7 10*3/uL 4.4-11.0 [facility] Work Phone: Blood erythrocytes count (nu mber/volume)on 12-11-2021 RBC (Bld) [#/Vol] 4.02 10*6/uL 4.2-5.4 [facility] Work Phone: Blood hemoglobin measurement (mass/volume)on 12-11-2021 Hemoglobin (Bld) [Mass/Vol] 12.4 g/dL 12.0-15.0 [facility] Work Phone: Blood lymphocytes/100 leukoc yteson 12-11-2021 Lymphocytes/100 WBC (Bld) 24.9 % 19-41 [facility] Work Phone: Blood monocytes/100 leukocyt eson 12-11-2021 Monocytes/100 WBC (Bld) 4.8 % 0-10 [facility] Work Phone: Blood platelet mean volumeon 12-11-2021 Platelet mean volume (Bld) [Entitic vol] 9.7 fL 6.2-12.0 [facility] Work Phone: Determination of erythrocyte mean corpuscular volume (MCV)on 12-11-2021 MCV (RBC) [Entitic vol] 94.0 fL 81-99 [facility] Work Phone: Hematocrit Auto (Bld) [Volum e fraction]on 12-11-2021 Hematocrit (Bld) [Volume fraction] 37.8 % 37-47 [facility] Work Phone: Laboratory - Chemistry and C hemistry - challengeon 12-11-2021 ALP [Catalytic activity/Vol] 55 U/L 45-117 [facility] Work Phone: ALT [Catalytic activity/Vol] 17 U/L 13-56 [facility] Work Phone: CO2 [Moles/Vol] 31.0 mmol/L 21.0-32.0 [facility] Work Phone: Globulin (S) [Mass/Vol] 4.4 g/dL 2.2-4.2 [facility] Work Phone: Urea nitrogen/Creatinine [Mass ratio] 16.4 mg/mg 10-20 [facility] Work Phone: Laboratory - Hematology and Cell countson 12-11-2021 Erythrocyte distribution width (RBC) [Entitic vol] 45.9 fL 35.1-43.9 [facility] Work Phone: Erythrocyte distribution width (RBC) [Ratio] 13.5 % 11.6-14.6 [facility] Work Phone: Immature granulocytes/100 WBC (Bld) 0.600 % 0.0-0.9 [facility] Work Phone: Comment on above: IG% - Immature Granu locytes (promyelocytes, myelocytes and metamyelocytes) > 1% indicates that a LEFT SHIFT is Present. MCH (RBC) [Entitic mass] 30.8 pg 27.0-32.0 [facility] Work Phone: Nucleated RBC/100 WBC (Bld) [Ratio] 0 % 0-5 [facility] Work Phone: MCHC Auto (RBC) [Mass/Vol]on 12-11-2021 MCHC (RBC) [Mass/Vol] 32.8 g/dL 32-36 [facility] Work Phone: No Panel Informationon 12-11 Estimated GFR (MDRD) Amer 85 mL/min >60 [facility] Work Phone: Comment on above: GFR Calc Estimated GFR (MDRD) Non-Af Amer 70 mL/min >60 [facility] Work Phone: Comment on above: Non- GFR Calc Platelets bldon 12-11-2021 Platelets (Bld) [#/Vol] 286 10*3/uL 150-450 [facility] Work Phone: Serum or plasma albumin jaun urement (mass/volume)on 12-11-2021 Albumin [Mass/Vol] 3.0 g/dL 3.2-5.0 [facility] Work Phone: Serum or plasma albumin/glob ulin mass ratioon 12-11-2021 Albumin/Globulin [Mass ratio] 0.7 {ratio} 0.9-2.4 [facility] Work Phone: Serum or plasma calcium juan urement (mass/volume)on 12-11-2021 Calcium [Mass/Vol] 8.8 mg/dL 8.5-10.1 [facility] Work Phone: Serum or plasma creatinine m easurement (mass/volume)on 12-11-2021 Creatinine [Mass/Vol] 0.85 mg/dL 0.55-1.02 [facility] Work Phone: Comment on above: The validity of the calculated GFR & GFRAA in patients over 70 years has not been determined. Clinical correlation is essential. Serum or plasma urea nitroge n measurement (mass/volume)on 12-11-2021 Urea nitrogen [Mass/Vol] 14 mg/dL 7-18 [facility] Work Phone: Thin prep Papanicolaou smear with manual screeningon 12-11-2021 Thin prep Papanicolaou smear with manual screening 12 U/L 15-37 [facility] Work Phone: Thin prep Papanicolaou smear with manual screening 4 5-15 [facility] Work Phone: Basophil percentageon 2021 Basophil percentage 10-25 SEEN /hpf 0-5 [facility] Work Phone: Bilirubin Test strip Ql (U)o n 11-23-2021 Bilirubin Ql (U) Negative Negative [facility] Work Phone: Culture, urineon 11-23-2021 Bacteria identified Cx Nom (U) Streptococcus agalactiae (B) [facility] Work Phone: Ketones Test strip Ql (U)on 11-23-2021 Ketones Ql (U) Negative Negative [facility] Work Phone: Mucus LM Ql (Urine sed)on Mucus Ql (Urine sed) 0 SEEN /hpf [facility] Work Phone: Nitrite Test strip Ql (U)on 11-23-2021 Nitrite Ql (U) Negative Negative [facility] Work Phone: Protein Test strip Ql (U)on 11-23-2021 Protein Ql (U) 15 mg/dl Negative [facility] Work Phone: Squamous epithelial cells de tection in urine sediment by light microscopyon 11-23-2021 Epithelial cells.squamous LM Ql (Urine sed) 0-5 SEEN /hpf 5-10 [facility] Work Phone: Urine blood detectionon 11-13 RBC Ql (U) Negative Negative [facility] Work Phone: RBC Ql (U) 0 SEEN /hpf 0-5 [facility] Work Phone: Urine clarityon 11-23-2021 Clarity (U) Sl. Cloudy Clear [facility] Work Phone: Urine color determinationon 11-23-2021 Color (U) Yellow Yellow [facility] Work Phone: Urine glucose detectionon Glucose Ql (U) 250 mg/dl Normal [facility] Work Phone: Urine leukocyte esterase det ection by dipstickon 11-23-2021 Leukocyte esterase Test strip Ql (U) 100 /ul Negative [facility] Work Phone: Urine pHon 11-23-2021 pH (U) 6.0 [pH] 5.0 - 8.0 [facility] Work Phone: Urine sediment bacteria coun t by microscopy (number/high power field)on 11-23-2021 Bacteria LM.HPF (Urine sed) [#/Area] 1 /[HPF] None Seen [facility] Work Phone: Urine specific gravity measu rementon 11-23-2021 Specific gravity (U) [Rel density] 1.020 1.002-1.030 [facility] Work Phone: Urobilinogen Auto test strip Ql (U)on 11-23-2021 Urobilinogen Ql (U) Normal mg/dl Normal [facility] Work Phone: Laboratory - Hematology and Cell countson 10-22-2021 HbA1c (Bld) [Mass fraction] 10.9 % [facility] Work Phone: Basophil percentageon 2021 Bilirubin [Mass/Vol] 0.40 mg/dL 0.20-1.00 [facility] Work Phone: Comment on above: For patients on eltr ombopag therapy, use of Dimension Ovid TBIL is not recommended. Chloride [Moles/Vol] 101 mmol/L 98-107 [facility] Work Phone: Glucose [Mass/Vol] 354 mg/dL 74-106 [facility] Work Phone: Comment on above: Glucose result great er than or equal to 200 mg/dLsuggests DIABETES MELLITUS per A.D.A. criteria. Potassium [Moles/Vol] 3.8 mmol/L 3.5-5.1 [facility] Work Phone: Protein [Mass/Vol] 7.5 g/dL 6.4-8.2 [facility] Work Phone: Sodium [Moles/Vol] 134 mmol/L 136-145 [facility] Work Phone: Laboratory - Chemistry and C hemistry - challengeon 10-12-2021 ALP [Catalytic activity/Vol] 55 U/L 45-117 [facility] Work Phone: ALT [Catalytic activity/Vol] 15 U/L 13-56 [facility] Work Phone: CO2 [Moles/Vol] 28.0 mmol/L 21.0-32.0 [facility] Work Phone: Globulin (S) [Mass/Vol] 4.5 g/dL 2.2-4.2 [facility] Work Phone: Urea nitrogen/Creatinine [Mass ratio] 12.3 mg/mg 10-20 [facility] Work Phone: No Panel Informationon 10-12 Estimated GFR (MDRD) Amer 66 mL/min >60 [facility] Work Phone: Comment on above: GFR Calc Estimated GFR (MDRD) Non-Af Amer 55 mL/min >60 [facility] Work Phone: Comment on above: Non- GFR Calc Serum or plasma albumin juan urement (mass/volume)on 10-12-2021 Albumin [Mass/Vol] 3.0 g/dL 3.2-5.0 [facility] Work Phone: Serum or plasma albumin/glob ulin mass ratioon 10-12-2021 Albumin/Globulin [Mass ratio] 0.7 {ratio} 0.9-2.4 [facility] Work Phone: Serum or plasma calcium juan urement (mass/volume)on 10-12-2021 Calcium [Mass/Vol] 9.0 mg/dL 8.5-10.1 [facility] Work Phone: Serum or plasma creatinine m easurement (mass/volume)on 10-12-2021 Creatinine [Mass/Vol] 1.06 mg/dL 0.55-1.02 [facility] Work Phone: Comment on above: The validity of the calculated GFR & GFRAA in patients over 70 years has not been determined. Clinical correlation is essential. Serum or plasma urea nitroge n measurement (mass/volume)on 10-12-2021 Urea nitrogen [Mass/Vol] 13 mg/dL 7-18 [facility] Work Phone: Thin prep Papanicolaou smear with manual screeningon 10-12-2021 Thin prep Papanicolaou smear with manual screening 16 U/L 15-37 [facility] Work Phone: Thin prep Papanicolaou smear with manual screening 5 5-15 [facility] Work Phone: No Panel Informationon 09-23 IMPRESSION: Spondylosis of the lumbar spine. No acute osseous abnormality identified. 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[id number] Transcribe Date/Time: Sep 23 2021 3:59P Dictated by : FAVIAN HINOJOSA MD This examination was interpreted and the report reviewed and electronically signed by: FAVIAN HINOJOSA MD on Sep 23 2021 4:03PM [facility] DIVISION OF RADIOLOGY Radiology Study observation (narrative) [facility] No Panel InformationOrdered By: [facility] Provider on 09-23-2021 [facility] XR Lumbar spine 3 Viewson * * *Final Report* * * DATE OF EXAM: Sep 23 2021 3:38PM WOX [id number] - XR LUMBAR 3V AP/LAT/L5-S1 / PROCEDURE REASON: Low back pain, unspecified back pain laterality, unspecified chronicity, unspeci * * * * Physician Interpretation * * * * Lumbar spine, sacrum, and coccyx radiograph HISTORY: 71 years old Clinical information: Low back pain, unspecified back pain laterality, unspecified chronicity, unspecified whether sciatica present pain in lower back radiating out laterally both directions TECHNIQUE: Images: XR SACRUM/COCCYX 3V AP/LAT, XR LUMBAR 3V AP/LAT/L5-S1 Comparison: None. Lumbar spine RESULT: Narrowing of the L4-5 intervertebral disc space. Endplate osteophytes at multiple levels in the lumbar spine. No fracture. Paraspinous soft tissues are unremarkable in appearance. Sacrum/coccyx RESULT: No fracture or dislocation. SI joints appear to be intact. Remainder of the imaged bony pelvis appears to be intact. Osteophyte formation of the right superior acetabulum. DIVISION OF RADIOLOGY Provider, [facility] Ángel [facility] - 09/23/2021 * * *Final Report* * * DATE OF EXAM: Sep 23 2021 3:38PM WOX 5228 - XR LUMBAR 3V AP/LAT/L5-S1 / PROCEDURE REASON: Low back pain, unspecified back pain laterality, unspecified chronicity, unspeci * * * * Physician Interpretation * * * * Lumbar spine, sacrum, and coccyx radiograph HISTORY: 71 years old Clinical information: Low back pain, unspecified back pain laterality, unspecified chronicity, unspecified whether sciatica present pain in lower back radiating out laterally both directions TECHNIQUE: Images: XR SACRUM/COCCYX 3V AP/LAT, XR LUMBAR 3V AP/LAT/L5-S1 Comparison: None. Lumbar spine RESULT: Narrowing of the L4-5 intervertebral disc space. Endplate osteophytes at multiple levels in the lumbar spine. No fracture. Paraspinous soft tissues are unremarkable in appearance. Sacrum/coccyx RESULT: No fracture or dislocation. SI joints appear to be intact. Remainder of the imaged bony pelvis appears to be intact. Osteophyte formation of the right superior acetabulum. IMPRESSION IMPRESSION: Spondylosis of the lumbar spine. No acute osseous abnormality identified. 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[facility] Transcribe Date/Time: Sep 23 2021 3:59P Dictated by : FAVIAN HINOJOSA MD This examination was interpreted and the report reviewed and electronically signed by: FAVIAN HINOJOSA MD on Sep 23 2021 4:03PM [facility] XR Sacrum and Coccyx 3 Views on 09-23-2021 * * *Final Report* * * DATE OF EXAM: Sep 23 2021 3:38PM WOX 5246 - XR SACRUM/COCCYX 3V AP/LAT / PROCEDURE REASON: Low back pain, unspecified back pain laterality, unspecified chronicity, unspeci * * * * Physician Interpretation * * * * Lumbar spine, sacrum, and coccyx radiograph HISTORY: 71 years old Clinical information: Low back pain, unspecified back pain laterality, unspecified chronicity, unspecified whether sciatica present pain in lower back radiating out laterally both directions TECHNIQUE: Images: XR SACRUM/COCCYX 3V AP/LAT, XR LUMBAR 3V AP/LAT/L5-S1 Comparison: None. Lumbar spine RESULT: Narrowing of the L4-5 intervertebral disc space. Endplate osteophytes at multiple levels in the lumbar spine. No fracture. Paraspinous soft tissues are unremarkable in appearance. Sacrum/coccyx RESULT: No fracture or dislocation. SI joints appear to be intact. Remainder of the imaged bony pelvis appears to be intact. Osteophyte formation of the right superior acetabulum. DIVISION OF RADIOLOGY Provider, [facility] - 09/23/2021 * * *Final Report* * * DATE OF EXAM: Sep 23 2021 3:38PM WOX 5246 - XR SACRUM/COCCYX 3V AP/LAT / PROCEDURE REASON: Low back pain, unspecified back pain laterality, unspecified chronicity, unspeci * * * * Physician Interpretation * * * * Lumbar spine, sacrum, and coccyx radiograph HISTORY: 71 years old Clinical information: Low back pain, unspecified back pain laterality, unspecified chronicity, unspecified whether sciatica present pain in lower back radiating out laterally both directions TECHNIQUE: Images: XR SACRUM/COCCYX 3V AP/LAT, XR LUMBAR 3V AP/LAT/L5-S1 Comparison: None. Lumbar spine RESULT: Narrowing of the L4-5 intervertebral disc space. Endplate osteophytes at multiple levels in the lumbar spine. No fracture. Paraspinous soft tissues are unremarkable in appearance. Sacrum/coccyx RESULT: No fracture or dislocation. SI joints appear to be intact. Remainder of the imaged bony pelvis appears to be intact. Osteophyte formation of the right superior acetabulum. IMPRESSION IMPRESSION: Spondylosis of the lumbar spine. No acute osseous abnormality identified. 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 Transcribe Date/Time: Sep 23 2021 3:59P Dictated by : FAVIAN HINOJOSA MD This examination was interpreted and the report reviewed and electronically signed by: FAVIAN HINOJOSA MD on Sep 23 2021 4:03PM [facility] Absolute lymphocyte counton 09-14-2021 Lymphocytes Auto (Unsp spec) [#/Vol] 1.48 10*3/uL 0.83-4.51 [facility] Work Phone: Basophil percentageon 2021 Basophils/100 WBC (Bld) 0.9 % 0-1 [facility] Work Phone: Bilirubin [Mass/Vol] 0.40 mg/dL 0.20-1.00 [facility] Work Phone: Comment on above: For patients on eltr ombopag therapy, use of Dimension Ovid TBIL is not recommended. Chloride [Moles/Vol] 102 mmol/L 98-107 [facility] Work Phone: Eosinophils/100 WBC (Bld) 3.2 % 0-5 [facility] Work Phone: Glucose [Mass/Vol] 385 mg/dL 74-106 [facility] Work Phone: Comment on above: Glucose result great er than or equal to 200 mg/dLsuggests DIABETES MELLITUS per A.D.A. criteria. Neutrophils (Bld) [#/Vol] 4.6 10*3/uL 2.0-7.7 [facility] Work Phone: Neutrophils/100 WBC (Bld) 66.6 % 47-70 [facility] Work Phone: Potassium [Moles/Vol] 4.4 mmol/L 3.5-5.1 [facility] Work Phone: Protein [Mass/Vol] 7.6 g/dL 6.4-8.2 [facility] Work Phone: Sodium [Moles/Vol] 137 mmol/L 136-145 [facility] Work Phone: WBC (Bld) [#/Vol] 6.8 10*3/uL 4.4-11.0 [facility] Work Phone: Blood erythrocytes count (nu mber/volume)on 09-14-2021 RBC (Bld) [#/Vol] 4.29 10*6/uL 4.2-5.4 [facility] Work Phone: Blood hemoglobin measurement (mass/volume)on 01-31-2022 Hemoglobin (Bld) [Mass/Vol] 13.0 g/dL 12.0-15.0 [facility] Work Phone: Blood lymphocytes/100 leukoc yteson 09-14-2021 Lymphocytes/100 WBC (Bld) 21.7 % 19-41 [facility] Work Phone: Blood monocytes/100 leukocyt eson 09-14-2021 Monocytes/100 WBC (Bld) 7.0 % 0-10 [facility] Work Phone: Blood platelet mean volumeon 09-14-2021 Platelet mean volume (Bld) [Entitic vol] 10.0 fL 6.2-12.0 [facility] Work Phone: Determination of erythrocyte mean corpuscular volume (MCV)on 09-14-2021 MCV (RBC) [Entitic vol] 93.0 fL 81-99 [facility] Work Phone: Hematocrit Auto (Bld) [Volum e fraction]on 09-14-2021 Hematocrit (Bld) [Volume fraction] 39.9 % 37-47 [facility] Work Phone: Laboratory - Chemistry and C hemistry - challengeon 09-14-2021 ALP [Catalytic activity/Vol] 61 U/L 45-117 [facility] Work Phone: ALT [Catalytic activity/Vol] 18 U/L 13-56 [facility] Work Phone: CO2 [Moles/Vol] 31.0 mmol/L 21.0-32.0 [facility] Work Phone: Globulin (S) [Mass/Vol] 4.5 g/dL 2.2-4.2 [facility] Work Phone: Urea nitrogen/Creatinine [Mass ratio] 9.3 mg/mg 10-20 [facility] Work Phone: Laboratory - Hematology and Cell countson 09-14-2021 Erythrocyte distribution width (RBC) [Entitic vol] 44.2 fL 35.1-43.9 [facility] Work Phone: Erythrocyte distribution width (RBC) [Ratio] 13.1 % 11.6-14.6 [facility] Work Phone: Immature granulocytes/100 WBC (Bld) 0.600 % 0.0-0.9 [facility] Work Phone: Comment on above: IG% - Immature Granu locytes (promyelocytes, myelocytes and metamyelocytes) > 1% indicates that a LEFT SHIFT is Present. MCH (RBC) [Entitic mass] 30.3 pg 27.0-32.0 [facility] Work Phone: Nucleated RBC/100 WBC (Bld) [Ratio] 0 % 0-5 [facility] Work Phone: MCHC Auto (RBC) [Mass/Vol]on 09-14-2021 MCHC (RBC) [Mass/Vol] 32.6 g/dL 32-36 [facility] Work Phone: No Panel Informationon 09-14 Estimated GFR (MDRD) Amer 41 mL/min >60 [facility] Work Phone: Comment on above: GFR Calc Estimated GFR (MDRD) Non-Af Amer 34 mL/min >60 [facility] Work Phone: Comment on above: Non- GFR Calc Platelets bldon 09-14-2021 Platelets (Bld) [#/Vol] 291 10*3/uL 150-450 [facility] Work Phone: Serum or plasma albumin juan urement (mass/volume)on 09-14-2021 Albumin [Mass/Vol] 3.1 g/dL 3.2-5.0 [facility] Work Phone: Serum or plasma albumin/glob ulin mass ratioon 09-14-2021 Albumin/Globulin [Mass ratio] 0.7 {ratio} 0.9-2.4 [facility] Work Phone: Serum or plasma calcium juan urement (mass/volume)on 09-14-2021 Calcium [Mass/Vol] 9.0 mg/dL 8.5-10.1 [facility] Work Phone: Serum or plasma creatinine m easurement (mass/volume)on 09-14-2021 Creatinine [Mass/Vol] 1.62 mg/dL 0.55-1.02 [facility] Work Phone: Comment on above: The validity of the calculated GFR & GFRAA in patients over 70 years has not been determined. Clinical correlation is essential. Serum or plasma urea nitroge n measurement (mass/volume)on 09-14-2021 Urea nitrogen [Mass/Vol] 15 mg/dL 7-18 [facility] Work Phone: Thin prep Papanicolaou smear with manual screeningon 09-14-2021 Thin prep Papanicolaou smear with manual screening 14 U/L 15-37 [facility] Work Phone: Thin prep Papanicolaou smear with manual screening 4 5-15 [facility] Work Phone: XR ABDOMEN 1V SUPINEon 03-31 XR ABDOMEN 1V SUPINE * * *Final Report* * * DATE OF EXAM: Mar 31 2021 12:20PM SPX [id number] - XR ABDOMEN 1V SUPINE / PROCEDURE REASON: Gastroparesis * * * * Physician Interpretation * * * * RESULT: EXAMINATION: XR ABDOMEN 1V SUPINE HISTORY: GASTORPARESIS Gastroparesis . TECHNIQUE: XR ABDOMEN 1V SUPINE Laterality: NOT APPLICABLE Number of different views (projections): 1 M: XB_1 RESULT: Moderate to large stool burden. There are no dilated loops of bowel to suggest obstruction. There is scoliosis and multilevel degenerative change seen within the visualized spine. There is mild bilateral hip DJD. A few phleboliths are incidentally noted within the pelvis. IMPRESSION: Moderate to large stool burden. No convincing radiographic evidence for bowel obstruction. Transcribed Using Voice Recognition Transcribe Date/Time: Mar 31 2021 12:33P Dictated by: EDIN HYLTON MD This examination was interpreted and the report reviewed and electronically signed by: EDIN HYLTON MD on Aug 17 2021 12:38PM EST [id number] [facility] 10-28-2020 CNPN Telephone ([place] PHA) MANISHA KEITH ([id number]) 1950 F Date Time Provider Department 10/28/20 MADI (CPO)TAYLOR During your visit today, we recorded the following information about you: Elmer Mathews, Cyber Defense Analyst 10/28/2020 3:06 PM Signed Completed and mailed Trulicity and Humalog PAP to patient with instructions for patient to fill out the highlighted sections of the application and deliver back to Dr. Hernández's office with attention: Dr Hernández and Areli Salas. Elmer Mathews, Cyber Defense Analyst Kerry Spivey Ma 11/18/2020 2:32 PM Signed Completed PAP application received from patient to the office. Placed on provider desk for signatures. Cristin Aguiar Ma 11/19/2020 5:52 PM Addendum Signed forms were received in pharmacy office. Forms were faxed to [employer] [facility] today. Jake Ball PharmD, BCACP Primary Care Clinical Pharmacist [facility] Areli Salas LPN 11/21/2020 9:09 AM Signed Shanon [facility] faxes back and patient is enrolled for 12 month period. Cristin Fuentes 11/24/2020 9:27 AM Signed Approval received. Application and approval form sent for scanning in to [employer] chart. Jake Blal PharmD, BCACP Primary Care Clinical Pharmacist [facility] Allergies As of Date: 10/28/2020 Noted Allergy Reaction JESENIA INHIBITORS 03/27/2014 3 - Cough NSAIDS (NON-STEROIDAL ANTI-INFLAM*05/09/2009 8 - GI Upset TAPE (ADHESIVE TAPE (ROSINS)) 10/26/2016 14 - Other: See Comments Comments: Blisters from surgical tape Date Reviewed: 08/28/2020 Reviewed by: Rosalia Sterling Ma - Fully Assessed Reason for Visit: Trulicity and Humalog PAP [Other] Prescriptions as of 10/28/2020 Sig: INSULIN ASPART (U-100) 100 UN* Inject 15 units subcutaneousl* TRESIBA FLEXTOUCH U-100 INSUL* Inject 57 Units subcutaneousl* FLUTICASONE PROPIONATE 50 MCG* USE 1 SPRAY IN EACH NOSTRIL O* TRELEGY ELLIPTA 100 MCG-62.5 * Inhale 1 Puff as instructed o* TRULICITY 3 MG/0.5 ML SUBCUTA* Inject 3 mg subcutaneously on* METAXALONE 800 MG TABLET Take 1 tablet by mouth three * ZOLEDRONIC ACID 5 MG/100 ML I* Inject 100 mL intravenously o* ATORVASTATIN 20 MG TABLET Take 1 tablet by mouth daily * SUCRALFATE 1 GRAM TABLET Take 1 tablet by mouth twice * FERROUS SULFATE 325 MG (65 MG* Take 1 tablet by mouth twice * ESOMEPRAZOLE MAGNESIUM 40 MG * Take 1 capsule by mouth twice* HYDROCHLOROTHIAZIDE 12.5 MG C* Take 1 capsule by mouth once * METFORMIN 1,000 MG TABLET Take 1 tablet by mouth twice * CPAP Autopap 5-20 cm H2O, Heat Hum* ESCITALOPRAM 10 MG TABLET Take 1 tablet by mouth once d* OXYBUTYNIN CHLORIDE 5 MG TABL* Take 1 tablet by mouth once d* LOSARTAN 100 MG TABLET Take 1 tablet by mouth once d* METOPROLOL SUCCINATE ER 50 MG* Take 1 tablet by mouth once d* CLOBETASOL 0.05 % TOPICAL CRE* Apply 1 application to affect* ALBUTEROL SULFATE HFA 90 MCG/* Inhale 2 Puffs as instructed * PREDNISONE ORAL Take by mouth as needed. BLOOD SUGAR DIAGNOSTIC STRIPS Test blood sugar(s) [...] once daily. Problem List As Of Date 10/28/2020 Noted Resolved BENIGN HYPERTENSION [I10] 05/28/2005 09/01/2007 Hyperlipidemia [E78.5] 05/28/2005 LOC PRIM OSTEOART-PELVIS [M16.10] 05/28/2005 06/04/2006 Allergic rhinitis [J30.9] 05/28/2005 Diabetes (HCC) [E11.9] 05/28/2005 06/27/2015 Unspecified sleep apnea [G47.30] 05/28/2005 12/07/2013 Osteoarthritis [M19.90] 05/28/2005 Irritable bowel syndrome [K58.9] 06/04/2006 11/25/2016 Dysuria [R30.0] 01/02/2007 05/25/2016 Unspecified sinusitis (chronic) [J32.9] 06/01/2007 05/25/2016 Other specified disorder of bladder [596.8] 06/20/2007 11/25/2016 ASYMPTOMATIC VARICOSE VEINS [I83.90] 11/17/2007 REFLUX ESOPHAGITIS [K21.00] ESOPHAGITIS, UNSPECIFIED [K20.90] 07/23/2008 07/30/2008 Malignant neoplasm of female breast (HCC) [C50.*07/30/2008 05/25/2016 IBS (Irritable Bowel Syndrome) [K58.9] Heme positive stool [R19.5] 11/22/2013 Routine general medical examination at [facility]*07/04/2009 11/22/2013 HTN (hypertension) [I10] 02/26/2013 Urge incontinence [N39.41] 02/26/2013 Inflammatory polyarthritis (HCC) [M06.4] Type 2 diabetes mellitus with diabetic retinopa*06/27/2015 History of cervical cancer [Z85.41] History of breast cancer [Z85.3] 05/25/2016 H/O left mastectomy [Z90.12] 07/19/2016 Obesity, Class I, BMI 30-34.9 [E66.9] 04/20/2018 Acute pain of both knees [M25.561, M25.562] 06/05/2019 Pes anserinus bursitis of both knees [M70.51, M*06/05/2019 Encounter Status:Closed by MADI (CPO)ELMER on 10/28/20 Normal [facility] NOVEL CORONAVIRUS NASOPHARYN GEAL - [facility] SPECIMEN ONLYon 07-28-2020 SARS-COV-2 NOT DETECTED Normal NOT DETECTED [facility] Comment on above: Order Comment: Submi tter Name: COUNTRY POINTE Agent Suspected: SARS-COV-2 This test was performed using real time PCR and has been approved for the qualitative detection of SARS-CoV-2 nucleic acid. The test has been authorized by the FDA under an emergency use authorization for use by authorized laboratories. Result Comment: Nega tive results do not preclude SARS-CoV-2 infection and should not be used as the sole basis for treatment or other patient management decisions. Optimum specimen types and timing for peak viral levels during infections caused by SARS-CoV-2 has not been determined. The possibility of a false negative result should especially be considered if the patient's recent exposures or clinical presentation suggest that SARS-CoV-2 infection is probable, and diagnostic tests for other causes of illness (e.g., other respiratory illness) are negative. Collection of a new specimen and re-testing may be necessary if the patient is critically ill or clinically deteriorating. Performed By: #### L [id number] #### [facility] (DEFAULT) [address] [place] [address] NOVEL CORONAVIRUS NASOPHARYN GEAL - [facility] SPECIMEN ONLYon 07-14-2020 SARS-COV-2 NOT DETECTED Normal NOT DETECTED [facility] Comment on above: Order Comment: Submi tter Name: COUNTRY POINTE Agent Suspected: SARS-COV-2 This test was performed using real time PCR and has been approved for the qualitative detection of SARS-CoV-2 nucleic acid. The test has been authorized by the FDA under an emergency use authorization for use by authorized laboratories. Result Comment: Nega tive results do not preclude SARS-CoV-2 infection and should not be used as the sole basis for treatment or other patient management decisions. Optimum specimen types and timing for peak viral levels during infections caused by SARS-CoV-2 has not been determined. The possibility of a false negative result should especially be considered if the patient's recent exposures or clinical presentation suggest that SARS-CoV-2 infection is probable, and diagnostic tests for other causes of illness (e.g., other respiratory illness) are negative. Collection of a new specimen and re-testing may be necessary if the patient is critically ill or clinically deteriorating. Performed By: #### L [id number] #### [facility] (DEFAULT) [address] [address] NOVEL CORONAVIRUS NASOPHARYN GEAL - [facility] SPECIMEN ONLYon 06-16-2020 SARS-COV-2 NOT DETECTED Normal NOT DETECTED [facility] Comment on above: Order Comment: Submi tter Name: COUNTRY POINTE Agent Suspected: SARS-COV-2 This test was performed using real time PCR and has been approved for the qualitative detection of SARS-CoV-2 nucleic acid. The test has been authorized by the FDA under an emergency use authorization for use by authorized laboratories. Result Comment: Nega tive results do not preclude SARS-CoV-2 infection and should not be used as the sole basis for treatment or other patient management decisions. Optimum specimen types and timing for peak viral levels during infections caused by SARS-CoV-2 has not been determined. The possibility of a false negative result should especially be considered if the patient's recent exposures or clinical presentation suggest that SARS-CoV-2 infection is probable, and diagnostic tests for other causes of illness (e.g., other respiratory illness) are negative. Collection of a new specimen and re-testing may be necessary if the patient is critically ill or clinically deteriorating. Performed By: #### L [id number] #### [facility] (DEFAULT) [address] [place] [id number] XR Chest PA and Lateralon IMPRESSION: No acute radiographic abnormality. 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[employer] Transcribe Date/Time: May 26 2020 4:30P Dictated by : ROSE MORENO MD This examination was interpreted and the report reviewed and electronically signed by: ROSE MORENO MD on May 26 2020 4:30PM [facility] DIVISION OF RADIOLOGY * * *Final Report* * * DATE OF EXAM: May 26 2020 3:52PM WOX 5291 - XR CHEST 2V FRONTAL/LAT / PROCEDURE REASON: Chronic cough * * * * Physician Interpretation * * * * EXAMINATION: CHEST RADIOGRAPH (2 VIEW FRONTAL & LATERAL) CLINICAL HISTORY: Chronic cough MQ: XC2_6 EXAM DATE/TIME: 05/26/2020 3:52 PM COMPARISON: Chest x-ray on 10/07/2018 RESULT: Lines, tubes, and devices: None. Lungs and pleura: No consolidation. No lung mass. No pleural effusion. No pneumothorax. Cardiomediastinal silhouette: Stable cardiac silhouette, with tortuosity of the thoracic aorta. Bones and soft tissues: There are degenerative changes in the spine. DIVISION OF RADIOLOGY [facility]26/2020 * * *Final Report* * * DATE OF EXAM: May 26 2020 3:52PM WOX 5291 - XR CHEST 2V FRONTAL/LAT / PROCEDURE REASON: Chronic cough * * * * Physician Interpretation * * * * EXAMINATION: CHEST RADIOGRAPH (2 VIEW FRONTAL & LATERAL) CLINICAL HISTORY: Chronic cough MQ: XC2_6 EXAM DATE/TIME: 05/26/2020 3:52 PM COMPARISON: Chest x-ray on 10/07/2018 RESULT: Lines, tubes, and devices: None. Lungs and pleura: No consolidation. No lung mass. No pleural effusion. No pneumothorax. Cardiomediastinal silhouette: Stable cardiac silhouette, with tortuosity of the thoracic aorta. Bones and soft tissues: There are degenerative changes in the spine. IMPRESSION IMPRESSION: No acute radiographic abnormality. 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[employer] Transcribe Date/Time: May 26 2020 4:30P Dictated by : ROSE MORENO MD This examination was interpreted and the report reviewed and electronically signed by: ROSE MORENO MD on May 26 2020 4:30PM EST [facility] Radiology Study observation (narrative) Philippe greer [facility] XR Chest PA and LateralOrder ed By: [facility] Provider on 05-26-2020 [facility] NOVEL CORONAVIRUS NASOPHARYN GEAL - [facility] SPECIMEN ONLYon 05-19-2020 SARS-COV-2 NOT DETECTED Normal NOT DETECTED [facility] Comment on above: Order Comment: Submi tter Name: COUNTRY POINTE Agent Suspected: SARS-COV-2 This test was performed using real time PCR and has been approved for the qualitative detection of SARS-CoV-2 nucleic acid. The test has been authorized by the FDA under an emergency use authorization for use by authorized laboratories. Result Comment: Nega tive results do not preclude SARS-CoV-2 infection and should not be used as the sole basis for treatment or other patient management decisions. Optimum specimen types and timing for peak viral levels during infections caused by SARS-CoV-2 has not been determined. The possibility of a false negative result should especially be considered if the patient's recent exposures or clinical presentation suggest that SARS-CoV-2 infection is probable, and diagnostic tests for other causes of illness (e.g., other respiratory illness) are negative. Collection of a new specimen and re-testing may be necessary if the patient is critically ill or clinically deteriorating. Performed By: #### L [id number] #### [facility] (DEFAULT) [address] [address] NOVEL CORONAVIRUS NASOPHARYN GEAL - [facility] SPECIMEN ONLYon 03-24-2020 SARS-COV-2 NOT DETECTED Normal NOT DETECTED [facility] Comment on above: Order Comment: Submi tter Name: COUNTRY POINTE Agent Suspected: SARS-COV-2 This test was performed using real time PCR and has been approved for the qualitative detection of SARS-CoV-2 nucleic acid. The test has been authorized by the FDA under an emergency use authorization for use by authorized laboratories. Result Comment: Nega tive results do not preclude SARS-CoV-2 infection and should not be used as the sole basis for treatment or other patient management decisions. Optimum specimen types and timing for peak viral levels during infections caused by SARS-CoV-2 has not been determined. The possibility of a false negative result should especially be considered if the patient's recent exposures or clinical presentation suggest that SARS-CoV-2 infection is probable, and diagnostic tests for other causes of illness (e.g., other respiratory illness) are negative. Collection of a new specimen and re-testing may be necessary if the patient is critically ill or clinically deteriorating. Performed By: #### L [id number] #### [facility] (DEFAULT) [address] [address] NOVEL CORONAVIRUS (COVID-19) on 02-05-2020 SARS-COV-2 Not Detected Normal Not Detected [employer] Comment on above: Order Comment: This assay was performed by [employer] ([employer]) on the [employer]??? System ([employer] [place], [place]) using Mer[employer] Mediated Amplification (TMA) technology. This test was developed, and its performance characteristics determined by [facility] [employer]. The [employer]pt[employer]??? SARS-CoV-2 assay is for use only under Emergency Use Authorization (EUA) in the [place] laboratories certified under the Clinical Laboratory Improvement Amendments of 1988 (CLIA), 42 U.S.C. ???263a, to perform high complexity tests. Performed By: #### C [id number] #### [facility] [address] [place], [address] Culture, urine Bacteria identified Cx Nom (U) Streptococcus agalactiae (B) [facility] Work Phone: Gram stain for investigation of transfusion reaction Microscopic observation Gram stain Nom (Unsp spec) [facility] Work Phone: Vital Signs Date Time Vital Sign Value Performing Clinician Facility 04-01-2025 14:31-0400 Body height 157 cm Ilir Hernández MD Work Phone: [facility] 04-01-2025 14:31-0400 Body mass index (BMI) [Ratio] 36.4 kg/m2 Ilir Hernández MD Work Phone: [facility] 04-01-2025 14:31-0400 Body weight 89.72 kg Ilir Hernández MD Work Phone: [facility] 04-01-2025 14:31-0400 Diastolic blood pressure 60 mm[Hg] Ilir Hernández MD Work Phone: [facility] 04-01-2025 14:31-0400 Heart rate 95 /min Ilir Hernández MD Work Phone: [facility] 04-01-2025 14:31-0400 SaO2% (BldA) [Mass fraction] 95 % Ilir Hernández MD Work Phone: [facility] 04-01-2025 14:31-0400 Systolic blood pressure 110 mm[Hg] Ilir Hernández MD Work Phone: [facility] 03-19-2025 13:53-0400 Body height 157.[address] Ilir Hernández MD Work Phone: [facility] 03-19-2025 13:53-0400 Body mass index (BMI) [Ratio] 35.8 kg/m2 Dr. Ilir Hernández MD Work Phone: 8(434)711-928246 [place] [address] 03-19-2025 13:53-0400 Body weight 88.[address] Ilir Hernández MD Work Phone: 7(605)175-805346 [place] [address] 03-19-2025 13:53-0400 Diastolic blood pressure 77 mm[Hg] Dr. Ilir Hernández MD Work Phone: 4(461)003-428493 [place] [address] 03-19-2025 13:53-0400 Heart rate 102 /min Dr. Ilir Hernández MD Work Phone: 6(130)562-447093 [place] [address] 03-19-2025 13:53-0400 SaO2% (BldA) [Mass fraction] 92 % Dr. Ilir Hernández MD Work Phone: 0(915)387-176746 [place] [address] 03-19-2025 13:53-0400 Systolic blood pressure 150 mm[Hg] Dr. Ilir Hernández MD Work Phone: 4(695)114-004146 [place] [address] 02-20-2025 13:16-0400 Diastolic blood pressure 90 mm[Hg] Ysabel Haagen 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 Work Phone: [facility] 02-20-2025 13:16-0400 Heart rate 80 /min Ysabel Haagen 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 Work Phone: [facility] 02-20-2025 13:16-0400 Respiratory rate 16 /min Ysabel Haagen 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 Work Phone: [facility] 02-20-2025 13:16-0400 SaO2% (BldA) [Mass fraction] 95 % Ysabel Haagen 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 Work Phone: [facility] 02-20-2025 13:16-0400 Systolic blood pressure 140 mm[Hg] Ysabel Haagen 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 Work Phone: [facility] 01-21-2025 13:56-0400 Body height 157.[address] Ilir Hernández MD Work Phone: [facility] 01-21-2025 13:56-0400 Body mass index (BMI) [Ratio] 35.5 kg/m2 Dr. Ilir Hernández MD Work Phone: 0(243)473-966946 [place] [address] 01-21-2025 13:56-0400 Body weight 88.[address] Ilir Hernández MD Work Phone: 9(847)399-358993 [place] [address] 01-21-2025 13:56-0400 Diastolic blood pressure 83 mm[Hg] Dr. Ilir Hernández MD Work Phone: 5(955)039-747993 [place] [address] 01-21-2025 13:56-0400 Heart rate 91 /min Dr. Ilir Hernández MD Work Phone: 6(474)480-050093 [place] [address] 01-21-2025 13:56-0400 SaO2% (BldA) [Mass fraction] 93 % Dr. Ilir Hernández MD Work Phone: 0(474)452-308493 [place] [address] 01-21-2025 13:56-0400 Systolic blood pressure 151 mm[Hg] Dr. Ilir Hernández MD Work Phone: 2(094)320-871493 [place] [address] 10-12-2024 14:00-0500 Body mass index (BMI) [Ratio] 36.84 kg/m2 Yunier Owen MD Work Phone: [facility] 10-12-2024 14:00-0500 Body weight 88.45 kg Yunier Owen MD Work Phone: [facility] 10-12-2024 14:00-0500 Diastolic blood pressure 70 mm[Hg] Yunier Owen MD Work Phone: [facility] 10-12-2024 14:00-0500 Heart rate 84 /min Yunier Owen MD Work Phone: [facility] 10-12-2024 14:00-0500 Respiratory rate 16 /min Yunier Owen MD Work Phone: [facility] 10-12-2024 14:00-0500 SaO2% (BldA) [Mass fraction] 91 % Yunier Owen MD Work Phone: [facility] 10-12-2024 14:00-0500 Systolic blood pressure 138 mm[Hg] Yunier Owen MD Work Phone: [facility] 10-08-2024 15:00-0500 Body mass index (BMI) [Ratio] 36.2 kg/m2 Dr. Ilir Hernández MD Work Phone: 9(300)729-146146 [place] [address] 10-08-2024 15:00-0500 Body weight 89.[address] Ilir Hernández MD Work Phone: 4(993)381-430346 [place] [address] 10-08-2024 15:00-0500 Diastolic blood pressure 77 mm[Hg] Dr. Ilir Hernández MD Work Phone: 6(712)138-900493 [place] [address] 10-08-2024 15:00-0500 Heart rate 108 /min Dr. Ilir Hernández MD Work Phone: 4(240)521-444293 [place] [address] 10-08-2024 15:00-0500 SaO2% (BldA) [Mass fraction] 93 % Dr. Ilir Hernández MD Work Phone: 5(966)996-379393 [place] [address] 10-08-2024 15:00-0500 Systolic blood pressure 136 mm[Hg] Dr. Ilir Hernández MD Work Phone: 8(743)115-435993 [place] [address] 10-03-2024 15:42-0500 Diastolic blood pressure 75 mm[Hg] Dr. Ilir Hernández MD Work Phone: 3(807)191-118093 [place] [address] 10-03-2024 15:42-0500 Heart rate 83 /min Dr. Ilir Hernández MD Work Phone: 1(875)863-570046 [place] [address] 10-03-2024 15:42-0500 Systolic blood pressure 163 mm[Hg] Dr. Ilir Hernández MD Work Phone: 4(259)113-117193 [place] [address] 10-03-2024 14:55-0500 Body mass index (BMI) [Ratio] 35.6 kg/m2 Dr. Ilir Hernández MD Work Phone: 4(613)487-673793 [place] [address] 10-03-2024 14:55-0500 Body temperature 97.1 [degF] Dr. Ilir Hernández MD Work Phone: [facility] 10-03-2024 14:55-0500 Body weight 88.[address] Ilir Hernández MD Work Phone: [facility] 10-03-2024 14:55-0500 Respiratory rate 16 /min Dr. Ilir Hernández MD Work Phone: [facility] 10-03-2024 14:55-0500 SaO2% (BldA) [Mass fraction] 95 % Dr. Ilir Hernández MD Work Phone: [facility] 09-26-2024 14:55-0500 Body height 154.9 cm Ilir Hernández MD Work Phone: [facility] 09-26-2024 14:55-0500 Body mass index (BMI) [Ratio] 36.84 kg/m2 Ilir Hernández MD Work Phone: [facility] 09-26-2024 14:55-0500 Body weight 88.45 kg Ilir Hernández MD Work Phone: [facility] 09-26-2024 14:55-0500 Diastolic blood pressure 70 mm[Hg] Ilir Hernández MD Work Phone: [facility] 09-26-2024 14:55-0500 Heart rate 105 /min Ilir Hernández MD Work Phone: [facility] 09-26-2024 14:55-0500 SaO2% (BldA) [Mass fraction] 96 % Ilir Hernández MD Work Phone: [facility] 09-26-2024 14:55-0500 Systolic blood pressure 136 mm[Hg] Ilir Hernández MD Work Phone: [facility] 08-16-2024 13:13-0500 Diastolic blood pressure 68 mm[Hg] Claire Lancaster 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 Work Phone: [facility] 08-16-2024 13:13-0500 Systolic blood pressure 160 mm[Hg] Claire Lancaster 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 Work Phone: [facility] 08-16-2024 12:53-0500 Body mass index (BMI) [Ratio] 35.91 kg/m2 Claire Suppan 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 Work Phone: [facility] 08-16-2024 12:53-0500 Body temperature 97.7 [degF] Claire Suppan 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 Work Phone: [facility] 08-16-2024 12:53-0500 Body weight 86.2 kg Claire Suppan 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 Work Phone: [facility] 08-16-2024 12:53-0500 Heart rate 87 /min Claire Suppan 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 Work Phone: [facility] 08-16-2024 12:53-0500 Respiratory rate 16 /min Claire Suppan 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 Work Phone: [facility] 08-16-2024 12:53-0500 SaO2% (BldA) [Mass fraction] 93 % Claire Suppan 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 Work Phone: [facility] 08-03-2024 12:23-0500 Diastolic blood pressure 86 mm[Hg] Claire Suppan 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 Work Phone: [facility] 08-03-2024 12:23-0500 Systolic blood pressure 156 mm[Hg] Claire Suppan 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 Work Phone: [facility] 08-03-2024 11:46-0500 Body mass index (BMI) [Ratio] 36.09 kg/m2 Claire Suppan 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 Work Phone: [facility] 08-03-2024 11:46-0500 Body temperature 97.5 [degF] Claire Suppan 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 Work Phone: [facility] 08-03-2024 11:46-0500 Body weight 86.64 kg Claire Suppan 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 Work Phone: [facility] 08-03-2024 11:46-0500 Heart rate 84 /min Claire Suppan 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 Work Phone: [facility] 08-03-2024 11:46-0500 Respiratory rate 16 /min Claire Suppan 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 Work Phone: [facility] 08-03-2024 11:46-0500 SaO2% (BldA) [Mass fraction] 96 % Cliare Suppan 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 Work Phone: [facility] 05-28-2024 14:03-0400 Body mass index (BMI) [Ratio] 34.96 kg/m2 Deepti London 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 Work Phone: [facility] 05-28-2024 14:03-0400 Body weight 83.92 kg Deepti London 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 Work Phone: [facility] 05-28-2024 14:03-0400 Diastolic blood pressure 76 mm[Hg] Deepti London 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 Work Phone: [facility] 05-28-2024 14:03-0400 Heart rate 80 /min Deepti London 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 Work Phone: [facility] 05-28-2024 14:03-0400 Respiratory rate 16 /min Deepti London 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 Work Phone: [facility] 05-28-2024 14:03-0400 SaO2% (BldA) [Mass fraction] 98 % Deepti London 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 Work Phone: [facility] 05-28-2024 14:03-0400 Systolic blood pressure 139 mm[Hg] Deepti London 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 Work Phone: [facility] 04-03-2024 12:28-0400 Body mass index (BMI) [Ratio] 34.96 kg/m2 Yunier Owen MD Work Phone: [facility] 04-03-2024 12:28-0400 Body weight 83.92 kg Yunier Owen MD Work Phone: [facility] 04-03-2024 12:28-0400 Diastolic blood pressure 62 mm[Hg] Yunier Owen MD Work Phone: [facility] 04-03-2024 12:28-0400 Heart rate 74 /min Yunier Owen MD Work Phone: [facility] 04-03-2024 12:28-0400 Respiratory rate 15 /min Yunier Owen MD Work Phone: [facility] 04-03-2024 12:28-0400 SaO2% (BldA) [Mass fraction] 94 % Yunier Owen MD Work Phone: [facility] 04-03-2024 12:28-0400 Systolic blood pressure 126 mm[Hg] Yunier Owen MD Work Phone: [facility] 03-19-2024 14:53-0400 Body mass index (BMI) [Ratio] 35.71 kg/m2 Ysabel Bowseragen 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 Work Phone: [facility] 03-19-2024 14:53-0400 Body weight 85.73 kg Ysabel Haagen 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 Work Phone: [facility] 03-19-2024 14:53-0400 Diastolic blood pressure 60 mm[Hg] Ysabel Haagen 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 Work Phone: [facility] 03-19-2024 14:53-0400 Heart rate 80 /min Ysabel Haagen 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 Work Phone: [facility] 03-19-2024 14:53-0400 Systolic blood pressure 132 mm[Hg] Ysabel Haagen 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 Work Phone: [facility] 02-20-2024 13:07-0400 Body mass index (BMI) [Ratio] 35.86 kg/m2 Deepti Callahan 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 Work Phone: [facility] 02-20-2024 13:07-0400 Body weight 86.09 kg Deepti Callahan 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 Work Phone: [facility] 02-20-2024 13:07-0400 Diastolic blood pressure 67 mm[Hg] Deepti London 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 Work Phone: [facility] 02-20-2024 13:07-0400 Heart rate 81 /min Deepti London 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 Work Phone: [facility] 02-20-2024 13:07-0400 Respiratory rate 18 /min Deepti London 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 Work Phone: [facility] 02-20-2024 13:07-0400 SaO2% (BldA) [Mass fraction] 95 % Deepti London 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 Work Phone: [facility] 02-20-2024 13:07-0400 Systolic blood pressure 110 mm[Hg] Deepti London 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 Work Phone: [facility] 01-03-2024 13:28-0400 Body mass index (BMI) [Ratio] 36.09 kg/m2 Ysabel Haagen 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 Work Phone: [facility] 01-03-2024 13:28-0400 Body weight 86.64 kg Ysabel Hananette 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 Work Phone: [facility] 01-03-2024 13:28-0400 Diastolic blood pressure 80 mm[Hg] Ysabel Haagen 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 Work Phone: [facility] 01-03-2024 13:28-0400 Heart rate 74 /min Ysabel Haagen 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 Work Phone: [facility] 01-03-2024 13:28-0400 Respiratory rate 16 /min Ysabel Haagen 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 Work Phone: [facility] 01-03-2024 13:28-0400 SaO2% (BldA) [Mass fraction] 91 % Ysabel Haagen 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 Work Phone: [facility] 01-03-2024 13:28-0400 Systolic blood pressure 150 mm[Hg] Ysabel Haagen 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 Work Phone: [facility] 11-28-2023 15:17-0400 Diastolic blood pressure 70 mm[Hg] Ysabel Edwards 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 Work Phone: [facility] 11-28-2023 15:17-0400 Heart rate 110 /min Ysabel Edwards 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 Work Phone: [facility] 11-28-2023 15:17-0400 Respiratory rate 16 /min Ysabel Edwards 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 Work Phone: [facility] 11-28-2023 15:17-0400 SaO2% (BldA) [Mass fraction] 94 % Ysabel Edwards 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 Work Phone: [facility] 11-28-2023 15:17-0400 Systolic blood pressure 132 mm[Hg] Ysabel Edwards 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 Work Phone: [facility] 11-21-2023 15:51-0400 Body temperature 97.9 [degF] Dr. Ilir Hernández Work Phone: [facility] 11-21-2023 15:51-0400 Diastolic blood pressure 68 mm[Hg] Dr. Ilir Hernández Work Phone: [facility] 11-21-2023 15:51-0400 Heart rate 85 /min Dr. Ilir Hernández Work Phone: [facility] 11-21-2023 15:51-0400 Respiratory rate 17 /min Dr. Ilir Hernández Work Phone: [facility] 11-21-2023 15:51-0400 SaO2% (BldA) [Mass fraction] 95 % Dr. Ilir Hernández Work Phone: [facility] 11-21-2023 15:51-0400 Systolic blood pressure 130 mm[Hg] Dr. Ilir Hernández Work Phone: [facility] 11-21-2023 11:00-0400 Inhaled oxygen flow rate 0 L/min Dr. Ilir Hernández Work Phone: 5(659)920-518546 [place] [address] 11-19-2023 11:54-0400 Body height 154.[address] Ilir Hernández Work Phone: 8(378)140-200793 [place] [address] 11-19-2023 11:54-0400 Body weight 90.[address] Ilir Hernández Work Phone: 7(464)028-640393 [place] [address] 11-17-2023 17:26-0400 Body mass index (BMI) [Ratio] 37.5 kg/m2 Dr. Ilir Hernández Work Phone: 6(003)456-319393 [place] [address] 11-17-2023 16:00-0400 Body temperature 99.3 [degF] Dr. Ilir Hernández Work Phone: 0(970)212-366593 [place] [address] 11-17-2023 16:00-0400 Diastolic blood pressure 49 mm[Hg] Dr. Ilir Hernández Work Phone: 9(604)003-492893 [place] [address] 11-17-2023 16:00-0400 Heart rate 87 /min Dr. Ilir Hernández Work Phone: 7(114)796-367193 [place] [address] 11-17-2023 16:00-0400 Respiratory rate 23 /min Dr. Ilir Hernández Work Phone: 6(000)770-747293 [place] [address] 11-17-2023 16:00-0400 SaO2% (BldA) [Mass fraction] 94 % Dr. Ilir Hernández Work Phone: 8(019)394-476193 [place] [address] 11-17-2023 16:00-0400 Systolic blood pressure 134 mm[Hg] Dr. Ilir Hernández Work Phone: 7(958)070-757393 [place] [address] 11-17-2023 14:00-0400 Inhaled oxygen flow rate 3 L/min Dr. Ilir Hernández Work Phone: 2(251)236-697793 [place] [address] 11-17-2023 10:48-0400 Body mass index (BMI) [Ratio] 38 kg/m2 Dr. Ilir Hernández Work Phone: 3(497)870-180993 [place] [address] 11-17-2023 10:48-0400 Body weight 91.[address] Ilir Hernández Work Phone: 2(306)789-151393 [place] [address] 11-17-2023 10:45-0400 Body height 154.[address] Ilir Hernández Work Phone: [facility] 11-15-2023 15:12-0400 Body mass index (BMI) [Ratio] 36.2 kg/m2 Dr. Ilir Hernández Work Phone: [facility] 11-15-2023 15:12-0400 Body temperature 98.6 [degF] Dr. Ilir Hernández Work Phone: [facility] 11-15-2023 15:12-0400 Body weight 89.[address] Ilir Hernández Work Phone: [facility] 11-15-2023 15:12-0400 Diastolic blood pressure 78 mm[Hg] Dr. Ilir Hernández Work Phone: 0(650)309-010046 [place] [address] 11-15-2023 15:12-0400 Heart rate 95 /min Dr. Ilir Hernández Work Phone: [facility] 11-15-2023 15:12-0400 SaO2% (BldA) [Mass fraction] 95 % Dr. Ilir Hernández Work Phone: [facility] 11-15-2023 15:12-0400 Systolic blood pressure 152 mm[Hg] Dr. Ilir Hernández Work Phone: [facility] 11-07-2023 11:18-0400 Body weight 89.36 kg Ysabel Edwards 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 Work Phone: [facility] 11-07-2023 11:18-0400 Diastolic blood pressure 68 mm[Hg] Ysabel Edwards 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 Work Phone: [facility] 11-07-2023 11:18-0400 Heart rate 72 /min Ysabel Haagen 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 Work Phone: [facility] 11-07-2023 11:18-0400 Respiratory rate 16 /min Ysabel Haagen 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 Work Phone: [facility] 11-07-2023 11:18-0400 SaO2% (BldA) [Mass fraction] 95 % Ysabel Edwards APRN.MATERIAL LOADER Work Phone: [facility] 11-07-2023 11:18-0400 Systolic blood pressure 122 mm[Hg] Ysabel Edwards APRN.MATERIAL LOADER Work Phone: [facility] 10-13-2023 14:30-0500 Body temperature 98.2 [degF] Dr. Ilir Hernández Work Phone: [facility] 10-13-2023 14:30-0500 Diastolic blood pressure 44 mm[Hg] Dr. Ilir Hernández Work Phone: 4(037)477-901346 [place] [address] 10-13-2023 14:30-0500 Heart rate 80 /min Dr. Ilir Hernández Work Phone: 1(570)321-676693 [place] [address] 10-13-2023 14:30-0500 Respiratory rate 18 /min Dr. Ilir Hernández Work Phone: 3(600)777-179146 [place] [address] 10-13-2023 14:30-0500 SaO2% (BldA) [Mass fraction] 93 % Dr. Ilir Hernández Work Phone: 9(399)839-592846 [place] [address] 10-13-2023 14:30-0500 Systolic blood pressure 137 mm[Hg] Dr. Ilir Hernández Work Phone: 1(853)893-225293 [place] [address] 10-13-2023 09:43-0500 Inhaled oxygen flow rate 2 L/min Dr. Ilir Hernández Work Phone: [facility] 10-11-2023 11:34-0500 Body height [address] Ilir Hernández Work Phone: 7(169)086-288246 [place] [address] 10-11-2023 11:34-0500 Body mass index (BMI) [Ratio] 38 kg/m2 Dr. Ilir Hernández Work Phone: 2(255)297-200946 [place] [address] 10-11-2023 11:34-0500 Body weight 93.[address] Ilir Hernández Work Phone: 5(902)466-506046 [place] [address] 09-19-2023 09:00-0500 Body weight 95.25 kg Ilir Cutler Jr., MD Work Phone: [facility] 09-19-2023 09:00-0500 Diastolic blood pressure 80 mm[Hg] Ilir Cutler Jr., MD Work Phone: [facility] 09-19-2023 09:00-0500 Heart rate 92 /min Ilir Cutler Jr., MD Work Phone: [facility] 09-19-2023 09:00-0500 Respiratory rate 16 /min Ilir Cutler Jr., MD Work Phone: [facility] 09-19-2023 09:00-0500 SaO2% (BldA) [Mass fraction] 96 % Ilir Cutler Jr., MD Work Phone: [facility] 09-19-2023 09:00-0500 Systolic blood pressure 142 mm[Hg] Ilir Cutler Jr., MD Work Phone: [facility] 08-17-2023 09:16-0500 Body height 157.[address] Ilir Hernández Work Phone: [facility] 08-17-2023 09:16-0500 Body mass index (BMI) [Ratio] 38.2 kg/m2 Dr. Ilir Hernández Work Phone: [facility] 08-17-2023 09:16-0500 Body temperature 98.9 [degF] Dr. Ilir Hernández Work Phone: [facility] 08-17-2023 09:16-0500 Body weight 94.[address] Ilir Hernández Work Phone: [facility] 08-17-2023 09:16-0500 Diastolic blood pressure 82 mm[Hg] Dr. Ilir Hernández Work Phone: [facility] 08-17-2023 09:16-0500 Heart rate 74 /min Dr. Ilir Hernández Work Phone: [facility] 08-17-2023 09:16-0500 Respiratory rate 16 /min Dr. Ilir Hernández Work Phone: [facility] 08-17-2023 09:16-0500 SaO2% (BldA) [Mass fraction] 97 % Dr. Ilir Hernández Work Phone: [facility] 08-17-2023 09:16-0500 Systolic blood pressure 160 mm[Hg] Dr. Ilir Hernández Work Phone: [facility] 07-29-2023 11:37-0500 Body temperature 98.29 [degF] Yunier Owen MD Work Phone: [facility] 07-29-2023 11:37-0500 Body weight 93.89 kg Yunier Owen MD Work Phone: [facility] 07-29-2023 11:37-0500 Diastolic blood pressure 74 mm[Hg] Yunier Owen MD Work Phone: [facility] 07-29-2023 11:37-0500 Heart rate 90 /min Yunier Owen MD Work Phone: [facility] 07-29-2023 11:37-0500 Respiratory rate 17 /min Yunier Owen MD Work Phone: [facility] 07-29-2023 11:37-0500 SaO2% (BldA) [Mass fraction] 95 % Yunier Owen MD Work Phone: [facility] 07-29-2023 11:37-0500 Systolic blood pressure 136 mm[Hg] Yunier Owen MD Work Phone: [facility] 07-04-2023 11:40-0500 Body temperature 97.2 [degF] Ilir Hernández MD Work Phone: [facility] 07-04-2023 11:40-0500 Body weight 90.72 kg Ilir Hernández MD Work Phone: [facility] 07-04-2023 11:40-0500 Diastolic blood pressure 64 mm[Hg] Ilir Hernández MD Work Phone: [facility] 07-04-2023 11:40-0500 Heart rate 83 /min Ilir Hernández MD Work Phone: [facility] 07-04-2023 11:40-0500 SaO2% (BldA) [Mass fraction] 95 % Ilir Hernández MD Work Phone: [facility] 07-04-2023 11:40-0500 Systolic blood pressure 136 mm[Hg] Ilir Hernández MD Work Phone: [facility] 06-28-2023 15:10-0500 Body height 157.5 cm Ilir Hernández MD Work Phone: [facility] 06-28-2023 15:10-0500 Body weight 93.08 kg Ilir Hernández MD Work Phone: [facility] 06-28-2023 15:10-0500 Diastolic blood pressure 71 mm[Hg] Ilir Hernández MD Work Phone: [facility] 06-28-2023 15:10-0500 Heart rate 75 /min Ilir Hernández MD Work Phone: [facility] 06-28-2023 15:10-0500 SaO2% (BldA) [Mass fraction] 93 % Ilir Hernández MD Work Phone: [facility] 06-28-2023 15:10-0500 Systolic blood pressure 159 mm[Hg] Ilir Hernández MD Work Phone: [facility] 06-23-2023 14:30-0500 Body temperature 97.8 [degF] Dr. Ilir Hernández Work Phone: [facility] 06-23-2023 14:30-0500 Diastolic blood pressure 56 mm[Hg] Dr. Ilir Hernández Work Phone: [facility] 06-23-2023 14:30-0500 Heart rate 84 /min Dr. Ilir Hernández Work Phone: [facility] 06-23-2023 14:30-0500 Respiratory rate 18 /min Dr. Ilir Hernández Work Phone: [facility] 06-23-2023 14:30-0500 SaO2% (BldA) [Mass fraction] 92 % Dr. Ilir Hernández Work Phone: 0(640)473-315793 [place] [address] 06-23-2023 14:30-0500 Systolic blood pressure 116 mm[Hg] Dr. Ilir Hernández Work Phone: 3(195)913-375293 [place] [address] 06-23-2023 08:33-0500 Inhaled oxygen flow rate 2 L/min Dr. Ilir Hernández Work Phone: 2(480)540-020993 [place] [address] 06-22-2023 09:54-0500 Body height 157.[address] Ilir Hernández Work Phone: 4(844)247-142793 [place] [address] 06-22-2023 09:54-0500 Body weight 93.[address] Ilir Hernández Work Phone: 8(954)714-087093 [place] [address] 06-21-2023 20:09-0500 Body mass index (BMI) [Ratio] 37.5 kg/m2 Dr. Ilir Hernández Work Phone: 9(895)506-363193 [place] [address] 06-21-2023 19:04-0500 Diastolic blood pressure 83 mm[Hg] Dr. Ilir Hernández Work Phone: 2(743)596-285793 [place] [address] 06-21-2023 19:04-0500 Heart rate 107 /min Dr. Ilir Hernández Work Phone: 8(167)450-658593 [place] [address] 06-21-2023 19:04-0500 Respiratory rate 20 /min Dr. Ilir Hernández Work Phone: 0(971)968-564393 [place] [address] 06-21-2023 19:04-0500 SaO2% (BldA) [Mass fraction] 94 % Dr. Ilir Hernández Work Phone: 9(639)568-762493 [place] [address] 06-21-2023 19:04-0500 Systolic blood pressure 156 mm[Hg] Dr. Ilir Hernández Work Phone: 7(665)225-272793 [place] [address] 06-21-2023 18:07-0500 Inhaled oxygen flow rate 4 L/min Dr. Ilir Hernández Work Phone: 0(012)441-698193 [place] [address] 06-21-2023 18:05-0500 Body mass index (BMI) [Ratio] 38.9 kg/m2 Dr. Ilir Hernández Work Phone: 5(966)877-730493 [place] [address] 06-21-2023 18:05-0500 Body weight 95.[address] Ilir Hernández Work Phone: [facility] 06-21-2023 15:28-0500 Body height 157.[address] Ilir Hernández Work Phone: [facility] 06-21-2023 15:28-0500 Body temperature 97.2 [degF] Dr. Ilir Hernández Work Phone: [facility] 06-21-2023 14:40-0500 Body temperature 99.3 [degF] Sherley Athy PA-C Work Phone: [facility] 06-21-2023 14:40-0500 Body weight 92.08 kg Sherley Athy PA-C Work Phone: [facility] 06-21-2023 14:40-0500 Diastolic blood pressure 80 mm[Hg] Sherley Athy PA-C Work Phone: [facility] 06-21-2023 14:40-0500 Heart rate 112 /min Sherley Athy PA-C Work Phone: [facility] 06-21-2023 14:40-0500 Respiratory rate 28 /min Sherley Athy PA-C Work Phone: [facility] 06-21-2023 14:40-0500 SaO2% (BldA) [Mass fraction] 90 % Sherley Athy PA-C Work Phone: [facility] 06-21-2023 14:40-0500 Systolic blood pressure 148 mm[Hg] Sherley Athy PA-C Work Phone: [facility] 06-21-2023 13:35-0500 Body temperature 100.51 [degF] Yunier Owen MD Work Phone: [facility] 06-21-2023 13:35-0500 Diastolic blood pressure 62 mm[Hg] Yunier Owen MD Work Phone: [facility] 06-21-2023 13:35-0500 Heart rate 110 /min Yunier Owen MD Work Phone: [facility] 06-21-2023 13:35-0500 Respiratory rate 17 /min Yunier Owen MD Work Phone: [facility] 06-21-2023 13:35-0500 SaO2% (BldA) [Mass fraction] 90 % Yunier Owen MD Work Phone: [facility] 06-21-2023 13:35-0500 Systolic blood pressure 122 mm[Hg] Yunier Owen MD Work Phone: [facility] 06-15-2023 10:26-0400 Body weight 95.25 kg Meron Tannhof 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 Work Phone: [facility] 06-15-2023 10:26-0400 Diastolic blood pressure 70 mm[Hg] Meron Tannhof 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 Work Phone: [facility] 06-15-2023 10:26-0400 Heart rate 86 /min Meron Tannhof 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 Work Phone: [facility] 06-15-2023 10:26-0400 Respiratory rate 14 /min Meron Tannhof 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 Work Phone: [facility] 06-15-2023 10:26-0400 SaO2% (BldA) [Mass fraction] 96 % Meron Tannhof 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 Work Phone: [facility] 06-15-2023 10:26-0400 Systolic blood pressure 142 mm[Hg] Meron Tannhof 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 Work Phone: [facility] 06-13-2023 15:39-0400 Body height 157.5 cm Ilir Hernández MD Work Phone: [facility] 06-13-2023 15:39-0400 Body weight 94.53 kg Ilir Hernández MD Work Phone: [facility] 06-13-2023 15:39-0400 Diastolic blood pressure 68 mm[Hg] Ilir Hernández MD Work Phone: [facility] 06-13-2023 15:39-0400 Heart rate 82 /min Ilir Hernández MD Work Phone: [facility] 06-13-2023 15:39-0400 SaO2% (BldA) [Mass fraction] 91 % Ilir Hernández MD Work Phone: [facility] 06-13-2023 15:39-0400 Systolic blood pressure 118 mm[Hg] Ilir Hernández MD Work Phone: [facility] 05-14-2023 11:10-0400 Body temperature 97.39 [degF] Sherley Athy PA-C Work Phone: [facility] 05-14-2023 11:10-0400 Body weight 93.44 kg Sherley Athy PA-C Work Phone: [facility] 05-14-2023 11:10-0400 Diastolic blood pressure 82 mm[Hg] Sherley Athy PA-C Work Phone: [facility] 05-14-2023 11:10-0400 Heart rate 85 /min Sherley Athy PA-C Work Phone: [facility] 05-14-2023 11:10-0400 Respiratory rate 16 /min Sherley Athy PA-C Work Phone: [facility] 05-14-2023 11:10-0400 Systolic blood pressure 142 mm[Hg] Sherley Athy PA-C Work Phone: [facility] 05-06-2023 14:41-0400 Body weight 93.62 kg Ilir Hernández MD Work Phone: [facility] 05-06-2023 14:41-0400 Diastolic blood pressure 78 mm[Hg] Ilir Hernández MD Work Phone: [facility] 05-06-2023 14:41-0400 Heart rate 70 /min Ilir Hernández MD Work Phone: [facility] 05-06-2023 14:41-0400 Respiratory rate 16 /min Ilir Hernández MD Work Phone: [facility] 05-06-2023 14:41-0400 SaO2% (BldA) [Mass fraction] 95 % Ilir Hernández MD Work Phone: [facility] 05-06-2023 14:41-0400 Systolic blood pressure 138 mm[Hg] Ilir Hernández MD Work Phone: [facility] 04-11-2023 13:42-0400 Body weight 93.44 kg NA Barboza PA-C Work Phone: [facility] 04-11-2023 13:42-0400 Diastolic blood pressure 80 mm[Hg] NA Barboza PA-C Work Phone: [facility] 04-11-2023 13:42-0400 Heart rate 84 /min NA Barboza PA-C Work Phone: [facility] 04-11-2023 13:42-0400 Respiratory rate 16 /min NA Barboza PA-C Work Phone: [facility] 04-11-2023 13:42-0400 Systolic blood pressure 136 mm[Hg] NA Barboza PA-C Work Phone: [facility] 03-07-2023 14:41-0400 Body height 157.[address] Ilir Hernández Work Phone: [facility] 03-07-2023 14:41-0400 Body mass index (BMI) [Ratio] 38.2 kg/m2 Dr. Ilir Hernández Work Phone: [facility] 03-07-2023 14:41-0400 Body weight 94.[address] Ilir Hernández Work Phone: [facility] 02-17-2023 10:41-0400 Body weight 95.25 kg NA Barboza PA-C Work Phone: [facility] 02-17-2023 10:41-0400 Diastolic blood pressure 74 mm[Hg] NA Barboza PA-C Work Phone: [facility] 02-17-2023 10:41-0400 Heart rate 91 /min NA Barboza PA-C Work Phone: [facility] 02-17-2023 10:41-0400 Respiratory rate 16 /min NA Barboza PA-C Work Phone: [facility] 02-17-2023 10:41-0400 SaO2% (BldA) [Mass fraction] 92 % NA Barboza PA-C Work Phone: [facility] 02-17-2023 10:41-0400 Systolic blood pressure 150 mm[Hg] NA Barboza PA-C Work Phone: [facility] 01-31-2023 13:58-0400 Body temperature 97.59 [degF] Ilir Cutler Jr., MD Work Phone: [facility] 01-31-2023 13:58-0400 Body weight 94.44 kg Ilir Cutler Jr., MD Work Phone: [facility] 01-31-2023 13:58-0400 Diastolic blood pressure 91 mm[Hg] Ilir Cutler Jr., MD Work Phone: [facility] 01-31-2023 13:58-0400 Heart rate 101 /min Ilir Cutler Jr., MD Work Phone: [facility] 01-31-2023 13:58-0400 Respiratory rate 16 /min Ilir Cutler Jr., MD Work Phone: [facility] 01-31-2023 13:58-0400 SaO2% (BldA) [Mass fraction] 95 % Ilir Cutler Jr., MD Work Phone: [facility] 01-31-2023 13:58-0400 Systolic blood pressure 161 mm[Hg] Ilir Cutler Jr., MD Work Phone: [facility] 01-19-2023 11:54-0400 Diastolic blood pressure 74 mm[Hg] Ilir Hernández MD Work Phone: [facility] 01-19-2023 11:54-0400 Systolic blood pressure 138 mm[Hg] Ilir Hernández MD Work Phone: [facility] 01-19-2023 11:36-0400 Body height 157.5 cm Ilir Hernández MD Work Phone: [facility] 01-19-2023 11:36-0400 Body weight 95.8 kg Ilir Hernández MD Work Phone: [facility] 01-19-2023 11:36-0400 Heart rate 96 /min Ilir Hernández MD Work Phone: [facility] 01-19-2023 11:36-0400 SaO2% (BldA) [Mass fraction] 97 % Ilir Hernández MD Work Phone: [facility] 01-18-2023 08:26-0400 Body height 157.[address] Ilir Hernández Work Phone: [facility] 01-18-2023 08:26-0400 Body mass index (BMI) [Ratio] 38.4 kg/m2 Dr. Ilir Hernández Work Phone: [facility] 01-18-2023 08:26-0400 Body temperature 98.6 [degF] Dr. Ilir Hernández Work Phone: [facility] 01-18-2023 08:26-0400 Body weight 95.[address] Ilir Hernández Work Phone: [facility] 01-18-2023 08:26-0400 Diastolic blood pressure 84 mm[Hg] Dr. Ilir Hernández Work Phone: [facility] 01-18-2023 08:26-0400 Heart rate 86 /min Dr. Ilir Hernández Work Phone: [facility] 01-18-2023 08:26-0400 Respiratory rate 20 /min Dr. Ilir Hernández Work Phone: [facility] 01-18-2023 08:26-0400 SaO2% (BldA) [Mass fraction] 96 % Dr. Ilir Hernández Work Phone: [facility] 01-18-2023 08:26-0400 Systolic blood pressure 128 mm[Hg] Dr. Ilir Hernández Work Phone: [facility] 01-12-2023 17:15-0400 Body temperature 98.29 [degF] Joana Naranjo APRN.MATERIAL LOADER Work Phone: [facility] 01-12-2023 17:15-0400 Body weight 93.8 kg Joana Naranjo APRN.MATERIAL LOADER Work Phone: [facility] 01-12-2023 17:15-0400 Diastolic blood pressure 72 mm[Hg] Joana Naranjo APRN.MATERIAL LOADER Work Phone: [facility] 01-12-2023 17:15-0400 Heart rate 95 /min Joana Naranjo APRN.MATERIAL LOADER Work Phone: [facility] 01-12-2023 17:15-0400 Respiratory rate 20 /min Joana Naranjo APRN.MATERIAL LOADER Work Phone: [facility] 01-12-2023 17:15-0400 SaO2% (BldA) [Mass fraction] 97 % Joana Naranjo APRN.MATERIAL LOADER Work Phone: [facility] 01-12-2023 17:15-0400 Systolic blood pressure 128 mm[Hg] Joana Naranjo APRN.MATERIAL LOADER Work Phone: [facility] 12-22-2022 10:16-0400 Body height 157.5 cm Ilir Hernández MD Work Phone: [facility] 12-22-2022 10:16-0400 Body weight 93.8 kg Ilir Hernández MD Work Phone: [facility] 12-22-2022 10:16-0400 Diastolic blood pressure 84 mm[Hg] Ilir Hernández MD Work Phone: [facility] 12-22-2022 10:16-0400 Heart rate 91 /min Ilir Hernández MD Work Phone: [facility] 12-22-2022 10:16-0400 Systolic blood pressure 161 mm[Hg] Ilir Hernández MD Work Phone: [facility] 12-07-2022 13:58-0400 Body weight 91.63 kg Ilir Hernández MD Work Phone: [facility] 12-07-2022 13:58-0400 Diastolic blood pressure 78 mm[Hg] Ilir Hernández MD Work Phone: [facility] 12-07-2022 13:58-0400 Heart rate 90 /min Ilir Hernández MD Work Phone: [facility] 12-07-2022 13:58-0400 Respiratory rate 16 /min Ilir Hernández MD Work Phone: [facility] 12-07-2022 13:58-0400 SaO2% (BldA) [Mass fraction] 94 % Ilir Hernández MD Work Phone: [facility] 12-07-2022 13:58-0400 Systolic blood pressure 130 mm[Hg] Ilir Hernández MD Work Phone: [facility] 12-04-2022 05:10-0400 Diastolic blood pressure 66 mm[Hg] Dr. Ilir Hernández Work Phone: [facility] 12-04-2022 05:10-0400 Heart rate 96 /min Dr. Ilir Hernández Work Phone: [facility] 12-04-2022 05:10-0400 Respiratory rate 15 /min Dr. Ilir Hernández Work Phone: [facility] 12-04-2022 05:10-0400 SaO2% (BldA) [Mass fraction] 99 % Dr. Ilir Hernández Work Phone: [facility] 12-04-2022 05:10-0400 Systolic blood pressure 147 mm[Hg] Dr. Ilir Hernández Work Phone: [facility] 12-04-2022 03:04-0400 Body height 157.[address] Ilir Hernández Work Phone: [facility] 12-04-2022 03:04-0400 Body mass index (BMI) [Ratio] 37.7 kg/m2 Dr. Ilir Hernández Work Phone: [facility] 12-04-2022 03:04-0400 Body temperature 97.6 [degF] Dr. Ilir Hernández Work Phone: 5(972)972-082546 [place] [address] 12-04-2022 03:04-0400 Body weight 93.[address] Ilir Hernández Work Phone: 1(438)368-018793 [place] [address] 11-26-2022 13:04-0400 Body temperature 98.4 [degF] Dr. Ilir Hernández Work Phone: 2(378)155-286593 [place] [address] 11-26-2022 13:04-0400 Body weight 93.[address] Ilir Hernández Work Phone: 0(581)939-927793 [place] [address] 11-26-2022 13:04-0400 Diastolic blood pressure 77 mm[Hg] Dr. Ilir Hernández Work Phone: 6(125)059-438693 [place] [address] 11-26-2022 13:04-0400 Heart rate 90 /min Dr. Ilir Hernández Work Phone: 8(871)123-034593 [place] [address] 11-26-2022 13:04-0400 Respiratory rate 18 /min Dr. Ilir Hernández Work Phone: 9(607)162-777293 [place] [address] 11-26-2022 13:04-0400 SaO2% (BldA) [Mass fraction] 92 % Dr. Ilir Hernández Work Phone: 7(225)013-667693 [place] [address] 11-26-2022 13:04-0400 Systolic blood pressure 148 mm[Hg] Dr. Ilir Hernández Work Phone: 6(664)471-322393 [place] [address] 10-20-2022 14:15-0500 Body mass index (BMI) [Ratio] 35.9 kg/m2 Dr. Ilir Hernández Work Phone: 8(113)995-793693 [place] [address] 10-20-2022 14:15-0500 Body temperature 97.7 [degF] Dr. Ilir Hernández Work Phone: 1(903)395-837793 [place] [address] 10-20-2022 14:15-0500 Body weight 88.[address] Ilir Hernández Work Phone: 0(597)441-260993 [place] [address] 10-20-2022 14:15-0500 Diastolic blood pressure 84 mm[Hg] Dr. Ilir Hernández Work Phone: 0(401)621-957693 [place] [address] 10-20-2022 14:15-0500 Heart rate 97 /min Dr. Ilir Hernández Work Phone: 5(408)834-818893 [place] [address] 10-20-2022 14:15-0500 Respiratory rate 19 /min Dr. Ilir Hernández Work Phone: 3(721)686-535093 [place] [address] 10-20-2022 14:15-0500 SaO2% (BldA) [Mass fraction] 92 % Dr. Ilir Hernández Work Phone: 1(135)123-020493 [place] [address] 10-20-2022 14:15-0500 Systolic blood pressure 180 mm[Hg] Dr. Ilir Hernández Work Phone: 8(271)506-401093 [place] [address] 08-30-2022 09:53-0500 Diastolic blood pressure 80 mm[Hg] Dr. Ilir Hernández Work Phone: 5(608)214-399993 [place] [address] 08-30-2022 09:53-0500 Systolic blood pressure 138 mm[Hg] Dr. Ilir Hernández Work Phone: 7(966)156-527393 [place] [address] 08-30-2022 08:09-0500 Body height 157.[address] Ilir Hernández Work Phone: 9(796)775-096593 [place] [address] 08-30-2022 08:09-0500 Body mass index (BMI) [Ratio] 35.1 kg/m2 Dr. Ilir Hernández Work Phone: 6(332)694-501793 [place] [address] 08-30-2022 08:09-0500 Body weight 87.[address] Ilir Hernández Work Phone: 5(169)141-660193 [place] [address] 08-30-2022 08:09-0500 Heart rate 80 /min Dr. Ilir Hernández Work Phone: 4(444)716-033093 [place] [address] 08-30-2022 08:09-0500 Respiratory rate 18 /min Dr. Ilir Hernández Work Phone: 3(714)863-535893 [place] [address] 08-30-2022 08:09-0500 SaO2% (BldA) [Mass fraction] 93 % Dr. Ilir Hernández Work Phone: [facility] 07-07-2022 08:38-0500 Body mass index (BMI) [Ratio] 34.8 kg/m2 Dr. Ilir Hernández Work Phone: [facility] 07-07-2022 08:38-0500 Body temperature 96.4 [degF] Dr. Ilir Hernández Work Phone: [facility] 07-07-2022 08:38-0500 Body weight 86.[address] Ilir Hernández Work Phone: [facility] 07-07-2022 08:38-0500 Diastolic blood pressure 83 mm[Hg] Dr. Ilir Hernández Work Phone: 0(887)049-910607 [address] 07-07-2022 08:38-0500 Heart rate 87 /min Dr. Ilir Hernández Work Phone: 0(161)482-071093 [place] [address] 07-07-2022 08:38-0500 Respiratory rate 18 /min Dr. Ilir Hernández Work Phone: [facility] 07-07-2022 08:38-0500 SaO2% (BldA) [Mass fraction] 95 % Dr. Ilir Hernández Work Phone: [facility] 07-07-2022 08:38-0500 Systolic blood pressure 180 mm[Hg] Dr. Ilir Hernández Work Phone: [facility] 06-23-2022 08:50-0500 Body height 157.5 cm Ilir Hernández MD Work Phone: [facility] 06-23-2022 08:50-0500 Body weight 85.37 kg Ilir Hernández MD Work Phone: [facility] 06-23-2022 08:50-0500 Diastolic blood pressure 84 mm[Hg] Ilir Hernández MD Work Phone: [facility] 06-23-2022 08:50-0500 Heart rate 82 /min Ilir Hernández MD Work Phone: [facility] 06-23-2022 08:50-0500 SaO2% (BldA) [Mass fraction] 96 % Ilir Hernández MD Work Phone: [facility] 06-23-2022 08:50-0500 Systolic blood pressure 140 mm[Hg] Ilir Hernández MD Work Phone: [facility] 05-27-2022 14:11-0400 Body height 157.[address] Ilir Hernández Work Phone: [facility] Work Phone: 05-27-2022 14:11-0400 Body mass index (BMI) [Ratio] 34.6 kg/m2 Dr. Ilir Hernández Work Phone: [facility] Work Phone: 05-27-2022 14:11-0400 Body temperature 94.6 [degF] Dr. Ilir Hernández Work Phone: [facility] Work Phone: 05-27-2022 14:11-0400 Body weight 85.[address] Ilir Hernández Work Phone: [facility] Work Phone: 05-27-2022 14:11-0400 Diastolic blood pressure 74 mm[Hg] Dr. Ilir Hernández Work Phone: [facility] Work Phone: 05-27-2022 14:11-0400 Heart rate 93 /min Dr. Ilir Hernández Work Phone: [facility] Work Phone: 05-27-2022 14:11-0400 Respiratory rate 16 /min Dr. Ilir Hernández Work Phone: [facility] Work Phone: 05-27-2022 14:11-0400 SaO2% (BldA) [Mass fraction] 89 % Dr. Ilir Hernández Work Phone: [facility] Work Phone: 05-27-2022 14:11-0400 Systolic blood pressure 152 mm[Hg] Dr. Ilir Hernández Work Phone: [facility] Work Phone: 05-06-2022 10:12-0400 Body height 157.5 cm Ilir Hernández MD Work Phone: [facility] 05-06-2022 10:12-0400 Body temperature 98.01 [degF] Ilir Hernández MD Work Phone: [facility] 05-06-2022 10:12-0400 Body weight 84.91 kg Ilir Hernández MD Work Phone: [facility] 05-06-2022 10:12-0400 Diastolic blood pressure 70 mm[Hg] Ilir Hernández MD Work Phone: [facility] 05-06-2022 10:12-0400 Heart rate 70 /min Ilir Hernández MD Work Phone: [facility] 05-06-2022 10:12-0400 SaO2% (BldA) [Mass fraction] 96 % Ilir Hernández MD Work Phone: [facility] 05-06-2022 10:12-0400 Systolic blood pressure 150 mm[Hg] Ilir Hernández MD Work Phone: [facility] 05-03-2022 13:41-0400 Body temperature 98.91 [degF] Jd Eliot 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 Work Phone: [facility] 05-03-2022 13:41-0400 Body weight 83.92 kg Jd Eliot 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 Work Phone: [facility] 05-03-2022 13:41-0400 Diastolic blood pressure 78 mm[Hg] Jd Eliot 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 Work Phone: [facility] 05-03-2022 13:41-0400 Heart rate 120 /min Jd Eliot 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 Work Phone: [facility] 05-03-2022 13:41-0400 Respiratory rate 20 /min Jd Eliot 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 Work Phone: [facility] 05-03-2022 13:41-0400 SaO2% (BldA) [Mass fraction] 91 % Jd Mccabe 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 Work Phone: [facility] 05-03-2022 13:41-0400 Systolic blood pressure 144 mm[Hg] Jd Mccabe 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 Work Phone: [facility] 05-02-2022 14:41-0400 Diastolic blood pressure 89 mm[Hg] Dr. Ilir Hernández Work Phone: [facility] Work Phone: 05-02-2022 14:41-0400 Heart rate 99 /min Dr. Ilir Hernández Work Phone: [facility] Work Phone: 05-02-2022 14:41-0400 Respiratory rate 12 /min Dr. Ilir Hernández Work Phone: [facility] Work Phone: 05-02-2022 14:41-0400 SaO2% (BldA) [Mass fraction] 93 % Dr. Ilir Hernández Work Phone: [facility] Work Phone: 05-02-2022 14:41-0400 Systolic blood pressure 162 mm[Hg] Dr. Ilir Hernández Work Phone: [facility] Work Phone: 05-02-2022 09:48-0400 Body height 157.[address] Ilir Hernández Work Phone: [facility] Work Phone: 05-02-2022 09:48-0400 Body mass index (BMI) [Ratio] 34.4 kg/m2 Dr. Ilir Hernández Work Phone: [facility] Work Phone: 05-02-2022 09:48-0400 Body temperature 97 [degF] Dr. Ilir Hernández Work Phone: [facility] Work Phone: 05-02-2022 09:48-0400 Body weight 85.[address] Ilir Hernández Work Phone: [facility] Work Phone: 04-06-2022 13:49-0400 Body weight 90.27 kg NA Barboza PA-C Work Phone: [facility] 04-06-2022 13:49-0400 Diastolic blood pressure 66 mm[Hg] NA Barboza PA-C Work Phone: [facility] 04-06-2022 13:49-0400 Heart rate 92 /min NA Barboza PA-C Work Phone: [facility] 04-06-2022 13:49-0400 Respiratory rate 16 /min NA Barboza PA-C Work Phone: [facility] 04-06-2022 13:49-0400 SaO2% (BldA) [Mass fraction] 94 % NA Barboza PA-C Work Phone: [facility] 04-06-2022 13:49-0400 Systolic blood pressure 148 mm[Hg] NA Barboza PA-C Work Phone: [facility] 03-16-2022 08:04-0400 Body height 157.[address] Ilir Hernández Work Phone: [facility] Work Phone: 03-16-2022 08:04-0400 Body mass index (BMI) [Ratio] 36.8 kg/m2 Dr. Ilir Hernández Work Phone: [facility] Work Phone: 03-16-2022 08:04-0400 Body temperature 97.2 [degF] Dr. Ilir Hernández Work Phone: [facility] Work Phone: 03-16-2022 08:04-0400 Body weight 91.[address] Ilir Hernández Work Phone: [facility] Work Phone: 03-16-2022 08:04-0400 Diastolic blood pressure 79 mm[Hg] Dr. Ilir Hernández Work Phone: [facility] Work Phone: 03-16-2022 08:04-0400 Heart rate 75 /min Dr. Ilir Hernández Work Phone: [facility] Work Phone: 03-16-2022 08:04-0400 Respiratory rate 18 /min Dr. Ilir Hernández Work Phone: [facility] Work Phone: 03-16-2022 08:04-0400 SaO2% (BldA) [Mass fraction] 94 % Dr. Ilir Hernández Work Phone: [facility] Work Phone: 03-16-2022 08:04-0400 Systolic blood pressure 186 mm[Hg] Dr. Ilir Hernández Work Phone: [facility] Work Phone: 02-24-2022 08:46-0400 Body mass index (BMI) [Ratio] 37.3 kg/m2 Dr. Ilir Hernández Work Phone: [facility] Work Phone: 02-24-2022 08:46-0400 Body weight 92.[address] Ilir Hernández Work Phone: [facility] Work Phone: 02-24-2022 08:46-0400 Diastolic blood pressure 83 mm[Hg] Dr. Ilir Hernández Work Phone: [facility] Work Phone: 02-24-2022 08:46-0400 Heart rate 80 /min Dr. Ilir Hernández Work Phone: [facility] Work Phone: 02-24-2022 08:46-0400 Respiratory rate 16 /min Dr. Ilir Hernández Work Phone: [facility] Work Phone: 02-24-2022 08:46-0400 SaO2% (BldA) [Mass fraction] 95 % Dr. Ilir Hernández Work Phone: [facility] Work Phone: 02-24-2022 08:46-0400 Systolic blood pressure 155 mm[Hg] Dr. Ilir Hernández Work Phone: [facility] Work Phone: 02-11-2022 09:28-0400 Body temperature 98.1 [degF] Dr. Ilir Hernández Work Phone: [facility] Work Phone: 02-11-2022 09:28-0400 Diastolic blood pressure 56 mm[Hg] Dr. Ilir Hernández Work Phone: [facility] Work Phone: 02-11-2022 09:28-0400 Heart rate 84 /min Dr. Ilir Hernández Work Phone: [facility] Work Phone: 02-11-2022 09:28-0400 Respiratory rate 16 /min Dr. Ilir Hernández Work Phone: [facility] Work Phone: 02-11-2022 09:28-0400 SaO2% (BldA) [Mass fraction] 100 % Dr. Ilir Hernández Work Phone: [facility] Work Phone: 02-11-2022 09:28-0400 Systolic blood pressure 123 mm[Hg] Dr. Ilir Hernández Work Phone: [facility] Work Phone: 02-11-2022 07:57-0400 Body height 157.[address] Ilir Hernández Work Phone: [facility] Work Phone: 02-11-2022 07:57-0400 Body mass index (BMI) [Ratio] 36.3 kg/m2 Dr. Ilir Hernández Work Phone: [facility] Work Phone: 02-11-2022 07:57-0400 Body weight [address] Ilir Hernández Work Phone: [facility] Work Phone: 02-02-2022 08:05-0400 Body mass index (BMI) [Ratio] 37.2 kg/m2 Dr. Ilir Hernández Work Phone: [facility] Work Phone: 02-02-2022 08:05-0400 Body temperature 95 [degF] Dr. Ilir Hernández Work Phone: [facility] Work Phone: 02-02-2022 08:05-0400 Body weight 92.[address] Ilir Hernández Work Phone: [facility] Work Phone: 02-02-2022 08:05-0400 Diastolic blood pressure 80 mm[Hg] Dr. Ilir Hernández Work Phone: [facility] Work Phone: 02-02-2022 08:05-0400 Heart rate 65 /min Dr. Ilir Hernández Work Phone: [facility] Work Phone: 02-02-2022 08:05-0400 Respiratory rate 18 /min Dr. Ilir Hernández Work Phone: [facility] Work Phone: 02-02-2022 08:05-0400 SaO2% (BldA) [Mass fraction] 97 % Dr. Ilir Hernández Work Phone: [facility] Work Phone: 02-02-2022 08:05-0400 Systolic blood pressure 140 mm[Hg] Dr. Ilir Hernández Work Phone: [facility] Work Phone: 01-15-2022 09:23-0400 Diastolic blood pressure 79 mm[Hg] La Nurse Work Phone: [facility] 01-15-2022 09:23-0400 Heart rate 90 /min Mi Nurse Work Phone: [facility] 01-15-2022 09:23-0400 Systolic blood pressure 157 mm[Hg] Mi Nurse Work Phone: [facility] 12-15-2021 14:43-0400 Body weight 90.72 kg Ilir Hernández MD Work Phone: [facility] 12-15-2021 14:43-0400 Diastolic blood pressure 70 mm[Hg] Ilir Hernández MD Work Phone: [facility] 12-15-2021 14:43-0400 Heart rate 90 /min Ilir Hernández MD Work Phone: [facility] 12-15-2021 14:43-0400 Respiratory rate 16 /min Ilir Hernández MD Work Phone: [facility] 12-15-2021 14:43-0400 SaO2% (BldA) [Mass fraction] 94 % Ilir Hernández MD Work Phone: [facility] 12-15-2021 14:43-0400 Systolic blood pressure 142 mm[Hg] Ilir Hernández MD Work Phone: [facility] 11-23-2021 08:22-0400 Body mass index (BMI) [Ratio] 36 kg/m2 Dr. Ilir Hernández Work Phone: [facility] Work Phone: 11-23-2021 08:22-0400 Body temperature 96.7 [degF] Dr. Ilir Hernández Work Phone: [facility] Work Phone: 11-23-2021 08:22-0400 Body weight 89.[address] Ilir Hernández Work Phone: [facility] Work Phone: 11-23-2021 08:22-0400 Diastolic blood pressure 80 mm[Hg] Dr. Ilir Hernández Work Phone: [facility] Work Phone: 11-23-2021 08:22-0400 Heart rate 77 /min Dr. Ilir Hernández Work Phone: [facility] Work Phone: 11-23-2021 08:22-0400 Respiratory rate 18 /min Dr. Ilir Hernández Work Phone: [facility] Work Phone: 11-23-2021 08:22-0400 SaO2% (BldA) [Mass fraction] 95 % Dr. Ilir Hernández Work Phone: [facility] Work Phone: 11-23-2021 08:22-0400 Systolic blood pressure 140 mm[Hg] Dr. Ilir Hernández Work Phone: [facility] Work Phone: 11-23-2021 08:22-0400 Body height 157.[address] Ilir Hernández Work Phone: [facility] Work Phone: 11-23-2021 08:22-0400 Body mass index (BMI) [Ratio] 36 kg/m2 Dr. Ilir Hernández Work Phone: [facility] Work Phone: 11-23-2021 08:22-0400 Body temperature 96.7 [degF] Dr. Ilir Hernández Work Phone: [facility] Work Phone: 11-23-2021 08:22-0400 Body weight 89.[address] Ilir Hernández Work Phone: [facility] Work Phone: 11-23-2021 08:22-0400 Diastolic blood pressure 80 mm[Hg] Dr. Ilir Hernández Work Phone: [facility] Work Phone: 11-23-2021 08:22-0400 Heart rate 77 /min Dr. Ilir Hernández Work Phone: [facility] Work Phone: 11-23-2021 08:22-0400 Respiratory rate 18 /min Dr. Ilir Hernández Work Phone: [facility] Work Phone: 11-23-2021 08:22-0400 SaO2% (BldA) [Mass fraction] 95 % Dr. Ilir Hernández Work Phone: [facility] Work Phone: 11-23-2021 08:22-0400 Systolic blood pressure 140 mm[Hg] Dr. Ilir Hernández Work Phone: [facility] Work Phone: 10-22-2021 09:45-0500 Body mass index (BMI) [Ratio] 35.8 kg/m2 Dr. Ilir Hernández Work Phone: [facility] Work Phone: 10-22-2021 09:45-0500 Body temperature 96.7 [degF] Dr. Ilir Hernández Work Phone: [facility] Work Phone: 10-22-2021 09:45-0500 Body weight 88.[address] Ilir Hernández Work Phone: [facility] Work Phone: 10-22-2021 09:45-0500 Diastolic blood pressure 90 mm[Hg] Dr. Ilir Hernández Work Phone: [facility] Work Phone: 10-22-2021 09:45-0500 Heart rate 77 /min Dr. Ilir Hernández Work Phone: [facility] Work Phone: 10-22-2021 09:45-0500 Respiratory rate 18 /min Dr. Ilir Hernández Work Phone: [facility] Work Phone: 10-22-2021 09:45-0500 SaO2% (BldA) [Mass fraction] 95 % Dr. Ilir Hernández Work Phone: [facility] Work Phone: 10-22-2021 09:45-0500 Systolic blood pressure 150 mm[Hg] Dr. Ilir Hernández Work Phone: [facility] Work Phone: 10-22-2021 08:45-0500 Body mass index (BMI) [Ratio] 35.8 kg/m2 Dr. Ilir Hernández Work Phone: [facility] Work Phone: 10-22-2021 08:45-0500 Body temperature 96.7 [degF] Dr. Ilir Hernández Work Phone: [facility] Work Phone: 10-22-2021 08:45-0500 Body weight 88.[address] Ilir Hernández Work Phone: [facility] Work Phone: 10-22-2021 08:45-0500 Diastolic blood pressure 90 mm[Hg] Dr. Ilir Hernández Work Phone: [facility] Work Phone: 10-22-2021 08:45-0500 Heart rate 77 /min Dr. Ilir Hernández Work Phone: [facility] Work Phone: 10-22-2021 08:45-0500 Respiratory rate 18 /min Dr. Ilir Hernández Work Phone: [facility] Work Phone: 10-22-2021 08:45-0500 SaO2% (BldA) [Mass fraction] 95 % Dr. Ilir Hernández Work Phone: [facility] Work Phone: 10-22-2021 08:45-0500 Systolic blood pressure 150 mm[Hg] Dr. Ilir Hernández Work Phone: [facility] Work Phone: Encounters Encounter Date Encounter Type Care Provider Facility Start: 04-02-2025 End: 04-11-2025 Follow-up encounter Ilir Hernández MD Work Phone: [facility] Comment on above: Results Start: 04-01-2025 End: 04-01-2025 ambulatory ILIR HERNÁNDEZ Facility:[facility] Start: 04-01-2025 End: 04-01-2025 ambulatory ILIR HERNÁNDEZ Facility:[facility] Start: 04-01-2025 End: 04-01-2025 Patient encounter procedure Ilir Hernández MD Work Phone: [facility] Comment on above: Gastroparesis due to secondary diabetes (HCC) (Primary Dx); Medicare annual wellness visit, subsequent; Mixed hyperlipidemia; Seasonal allergic rhinitis, unspecified trigger; Essential hypertension; Essential tremor; Primary hypertension; Chronic cough; Lung nodules; 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, with long-term current use of insulin, unspecified laterality (HCC); Inflammatory polyarthritis (HCC); Age-related osteoporosis without current pathological fracture; Class 2 obesity with body mass index (BMI) of 36.0 to 36.9 in adult, unspecified obesity type, unspecified whether serious comorbidity present; History of breast cancer; History of cervical cancer; Diabetic retinopathy of right eye associated with type 2 diabetes mellitus, macular edema presence unspecified, unspecified retinopathy severity (HCC); Gastroesophageal reflux disease with esophagitis without hemorrhage; Subclinical hypothyroidism; H/O left mastectomy; Anxiety; Sleep apnea, unspecified type; Gastroparesis Start: 03-19-2025 End: 03-19-[address] Charles Chi MD -[facility] Work Phone: Start: 03-19-2025 End: 03-19-[address] Ilir Hernández MD Work Phone: -[facility] Start: 03-04-2025 End: 03-04-[address] Ilir Hernández MD Work Phone: -[facility] Start: 03-04-2025 End: 03-04-[address] Rachel Johnson MD -[facility] Work Phone: Start: 03-04-2025 End: 03-04-2025 ambulatory Ilir Hernández Facility:[facility] Start: 02-28-2025 End: 03-01-2025 Telephone encounter Yunier Owen Work Phone: Pulmonary Medicine Comment on above: Results Start: 02-25-2025 End: 02-25-2025 Telephone encounter Aliyah Holt 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 Work Phone: Pulmonary Medicine Comment on above: Results Start: 02-20-2025 End: 02-22-2025 Follow-up encounter Ysabel Edwards 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 Work Phone: [facility] Start: 02-20-2025 End: 02-20-2025 Office outpatient visit 25 minutes Ysabel Edwards 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 Work Phone: [facility] Comment on above: Urinary frequency (P rimary Dx); Muscle spasm Start: 02-20-2025 End: 02-20-2025 ambulatory [facility] Facility:[facility] Start: 02-19-2025 End: 02-19-2025 Telephone encounter Ilir Hernández MD Work Phone: [facility] Comment on above: Refill Request Start: 02-19-2025 End: 02-19-2025 Office outpatient visit 25 minutes Aliyah Holt 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 Work Phone: Pulmonary Medicine Comment on above: Mild persistent asth ma without complication (HCC) (Primary Dx); Lung nodules; Post-nasal drip Start: 02-19-2025 End: 02-19-2025 ambulatory ALIYAH HOLT Facility:[facility] Start: 02-19-2025 End: 02-19-2025 Subsequent hospital visit by physician [facility] ([facility]) Work Phone: Cat Scan Comment on above: Lung nodules [R91.8] Start: 01-22-2025 End: 01-22-2025 Telephone encounter Ilir Hernández MD Work Phone: [facility] Start: 01-21-2025 End: 01-21-[address] Charles Chi MD -[facility] Work Phone: Start: 01-21-2025 End: 01-21-[address] Ilir Hernández MD Work Phone: [facility] Work Phone: Start: 12-20-2024 End: 12-20-2024 Patient encounter procedure Dutch Loredojerome Work Phone: Podiatry Comment on above: Onychomycosis (Prima ry Dx); Onychocryptosis; Diabetic polyneuropathy associated with type 2 diabetes mellitus (HCC); Pain in toe of left foot; Pain in toe of right foot Start: 12-20-2024 End: 12-20-2024 ambulatory DUTCH LOREDOJEROME Facility:[facility] Start: 12-10-2024 End: 12-10-[address] Rachel Johnson MD -[facility] Work Phone: Start: 12-10-2024 End: 12-10-2024 ambulatory Ilir Kevin Facility:[facility] Start: 11-28-2024 End: 01-28-2025 Follow-up encounter Ilir Hernández MD Work Phone: [facility] Start: 11-28-2024 ambulatory ILIR HERNÁNDEZ Facility :[facility] Start: 11-28-2024 End: 11-28-2024 Subsequent hospital visit by physician Diagnostic Mammo [facility] Start: 10-29-2024 End: 10-29-2024 Refill Ilir Hernández MD Work Phone: [address] [place] [address] Comment on above: Refill Request Start: 10-19-2024 End: 10-19-2024 Telephone encounter Yunier Owen MD Work Phone: Pulmonary Medicine Comment on above: Results Start: 10-17-2024 End: 12-17-2024 Follow-up encounter Ilir Hernández MD Work Phone: [facility] Start: 10-17-2024 End: 10-17-2024 Telephone encounter Ilir Hernández MD Work Phone: [facility] Comment on above: Results Start: 10-16-2024 End: 10-16-2024 ambulatory Ilir Hernández MD Work Phone: [facility] Comment on above: Urinary Symptoms Start: 10-12-2024 End: 10-12-2024 Patient encounter procedure Yunier Owen MD Work Phone: Pulmonary Medicine Comment on above: Lung nodule (Primary Dx); Former cigarette smoker; Mild persistent asthma without complication Start: 10-12-2024 End: 10-12-2024 ambulatory [facility] Facility:[facility] Start: 10-12-2024 End: 10-12-2024 Subsequent hospital visit by physician [facility] ([facility]) Work Phone: Cat Scan Comment on above: Lung nodules [R91.8] Start: 10-10-2024 End: 10-10-2024 Refill Ilir Hernández MD Work Phone: [facility] Comment on above: Refill Request Start: 10-09-2024 End: 10-09-2024 Follow-up encounter Ilir Hernández MD Work Phone: [facility] Comment on above: Abnormal mammogram ( Primary Dx) Start: 10-08-2024 End: 10-08-[address] Charles Chi MD -[facility] Work Phone: Start: 10-08-2024 End: 10-08-2024 ambulatory [facility] Facility:[facility] Start: 10-08-2024 End: 10-08-2024 Subsequent hospital visit by physician Screen Mammo [facility] Comment on above: Encounter for screen ing mammogram for malignant neoplasm of breast [Z12.31] Start: 10-03-2024 End: 10-03-2024 Patient encounter procedure Traci JAMES -Medical Out Work Phone: Start: 10-03-2024 End: 10-03-2024 [facility] Facility:[facility] Start: 09-27-2024 End: 10-10-2024 Telephone encounter Claire Lancaster APRN.MATERIAL LOADER Work Phone: [facility] Start: 09-26-2024 End: 09-26-2024 Patient encounter procedure Ilir Hernández MD Work Phone: [facility] Comment on above: Gastroparesis due to secondary diabetes (HCC) (Primary Dx); Mixed hyperlipidemia; Primary hypertension; SVT (supraventricular tachycardia) (HCC); Lung nodules; Chronic cough; Gastroesophageal reflux disease with esophagitis without hemorrhage; 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, with long-term current use of insulin, unspecified laterality (HCC); Subclinical hypothyroidism; History of cervical cancer; History of breast cancer; Inflammatory polyarthritis (HCC); Class 2 obesity with body mass index (BMI) of 36.0 to 36.9 in adult, unspecified obesity type, unspecified whether serious comorbidity present; Stage 3 chronic kidney disease, unspecified whether stage 3a or 3b CKD (HCC); Encounter for screening mammogram for malignant neoplasm of breast Start: 09-26-2024 End: 09-26-2024 [facility] Facility:[facility] Start: 09-18-2024 End: 09-18-2024 [facility] Facility:[facility] Start: 08-23-2024 End: 08-23-2024 [facility] Facility:[facility] Start: 08-23-2024 End: 08-23-2024 Patient encounter procedure [place] Work Phone: Podiatry Comment on above: Onychocryptosis (Mihaela lisa Dx); Onychomycosis; Diabetic polyneuropathy associated with type 2 diabetes mellitus (HCC); Pain in toe of left foot; Pain in toe of right foot Start: 08-20-2024 End: 08-20-2024 [facility] Facility:[facility] Start: 08-16-2024 End: 08-16-2024 [facility] Facility:[facility] Start: 08-16-2024 End: 08-16-2024 Office outpatient visit 25 minutes Claire Lancaster APRN.MATERIAL LOADER Work Phone: [facility] Comment on above: Gastroesophageal ref lux disease without esophagitis (Primary Dx); Lichen planus; Lumbar pain; Mixed hyperlipidemia; Screening for depression; Encounter for screening examination for other mental health and behavioral disorders; Asymptomatic menopause; Encounter for screening for osteoporosis; Senile osteoporosis; Screening for cervical cancer; Gastroparesis due to secondary diabetes (HCC); Chronic obstructive pulmonary disease, unspecified COPD type (HCC) Start: 08-03-2024 End: 08-03-2024 Office outpatient visit 25 minutes Claire Lancaster APRN.MATERIAL LOADER Work Phone: [facility] Comment on above: Onychomycosis (Prima ry Dx); Bronchitis; Essential hypertension; Essential tremor; Seasonal allergic rhinitis, unspecified trigger; Lumbar pain; OAB (overactive bladder); Cellulitis of skin; Asthma with chronic obstructive pulmonary disease (COPD) ([facility]) Start: 08-03-2024 End: 08-03-2024 ambulatory [facility] Facility:[facility] Start: 07-16-2024 End: 07-16-2024 Chart abstracting Ilir Hernández MD Work Phone: [facility] Start: 07-16-2024 End: 07-16-2024 ambulatory [facility] Facility:[facility] Start: 07-16-2024 End: 07-16-2024 ambulatory [facility] Facility:[facility] Start: 07-09-2024 End: 07-09-2024 Refill Ilir Hernández MD Work Phone: [facility] Comment on above: Refill Request Start: 06-25-2024 End: 06-25-2024 [facility] Facility:[facility] Start: 05-28-2024 End: 05-28-2024 Patient encounter procedure Deepti Callahan APRN.MATERIAL LOADER Work Phone: Neurology Comment on above: RICARDO (obstructive sle ep apnea) (Primary Dx); Long sleeper; Non-restorative sleep; Intolerance of continuous positive airway pressure (CPAP) ventilation Start: 05-28-2024 End: 05-28-2024 ambulatory [facility] Facility:[facility] Start: 05-14-2024 End: 05-14-2024 ambulatory [facility] Facility:[facility] Start: 04-20-2024 End: 04-20-2024 ambulatory [facility] Facility:[facility] Start: 04-13-2024 End: 04-13-2024 Telephone encounter Yunier Owen MD Work Phone: Pulmonary Medicine Comment on above: Medication Problem Patient Question Start: 04-06-2024 End: 04-11-2024 Telephone encounter Claire Lancaster 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 Work Phone: [facility] Comment on above: Results Start: 04-03-2024 End: 04-03-2024 ambulatory [facility] Facility:[facility] Start: 04-03-2024 End: 04-03-2024 Patient encounter procedure Yunier Owen MD Work Phone: Pulmonary Medicine Comment on above: Cough variant asthma (Primary Dx); Lung nodules; Post-nasal drip; Former smoker Start: 03-28-2024 Telephone encounter Ilir Hernández MD Work Phone: [facility] Comment on above: Medication Problem Start: 03-22-2024 Refill Ilir Hernández MD Work Phone: [facility] Comment on above: Refill Request Start: 03-19-2024 End: 03-19-2024 Office outpatient visit 15 minutes Ysabel Edwards 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 Work Phone: [facility] Comment on above: Essential hypertensi on (Primary Dx); 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); Choledocholithiasis; COPD with exacerbation (HCC) Start: 03-15-2024 Refill Cara Morganton 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 Work Phone: OB/Gynecology Comment on above: Refill Request Start: 03-05-2024 Chart abstracting Ilir Crews MD Work Phone: [facility] Start: 02-27-2024 Telephone encounter Ilir Hernández MD Work Phone: [facility] Comment on above: Release Of Medical R ecords Start: 02-21-2024 Telephone encounter Deepti joshi APRN.MATERIAL LOADER Work Phone: Neurology Comment on above: Patient Update Start: 02-20-2024 End: 02-20-2024 Patient encounter procedure Deepti Melaravinod BHAKTA.MATERIAL LOADER Work Phone: Neurology Comment on above: RICARDO (obstructive sle ep apnea) (Primary Dx); Nocturnal hypoxemia Start: 01-03-2024 End: 01-03-2024 Transitional care manage srvc 14 day discharge Ysabel Edwards APRN.MATERIAL LOADER Work Phone: [facility] Comment on above: Choledocholithiasis (Primary Dx); UTI symptoms; 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) Start: 01-02-2024 Patient Outreach Kerry Spivey MA [facility] Comment on above: Transition Of Care Start: 12-27-2023 Refill Ilir Hernández MD Work Phone: [facility] Comment on above: Refill Request Start: 12-21-2023 Telephone encounter Ilir Hernández MD Work Phone: [facility] Comment on above: Patient Update prior authorization Start: 12-01-2023 Telephone encounter Ilir Hernández MD Work Phone[facility] Comment on above: Patient Update (Requ esting information [employer]) Start: 11-30-2023 Refill Ilir Hernández MD Work Phone: [facility] Comment on above: Refill Request (OUT OF MEDS) Start: 11-29-2023 Telephone encounter Ilir Hernández MD Work Phone: [facility] Comment on above: Insurance Authorizat ion ([employer]et[employer] verio) Start: 11-28-2023 End: 11-28-2023 Office outpatient visit 25 minutes Ysabel Edwards APRN.MATERIAL LOADER Work Phone: [facility] Comment on above: COPD with exacerbati on (HCC) (Primary Dx); Closed fracture of left hip with routine healing, subsequent encounter; 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) Start: 11-28-2023 End: 11-28-[address] Ilir Hernández Work Phone: [facility] Work Phone: Start: 11-28-2023 End: 11-28-2023 Dr. Ilir Hernández Work Phone: [facility] Work Phone: Start: 11-23-2023 Telephone encounter Ilir Hernández MD Work Phone: [facility] Comment on above: Orders [facility] HH PT POC FYI-OT Update Start: 11-22-2023 Telephone encounter Yunier Owen MD Work Phone: Pulmonary Medicine Comment on above: Hospital F/U problem with order Start: 11-21-2023 Dr. Ilir Crews Work Phone: [facility] Work Phone: Start: 11-20-2023 Dr. Ilir Crews Work Phone: [facility] Work Phone: Start: 11-19-2023 Dr. Ilir Crews Work Phone: [facility] Work Phone: Start: 11-18-2023 Dr. Ilir Crews Work Phone: [facility] Work Phone: Start: 11-17-2023 End: 11-21-2023 Evaluation and management of inpatient Dr. Ilir Hernández Work Phone: [facility] Work Phone: Start: 11-17-2023 End: 11-21-2023 Dr. Ilir Hernández Work Phone: [facility] Work Phone: Start: 11-17-2023 Telephone encounter Ilir Hernández MD Work Phone: Family [facility] Comment on above: Patient Update Start: 11-15-2023 End: 11-15-[address] Ilir Hernández Work Phone: [facility] Work Phone: Start: 11-15-2023 End: 11-15-2023 Dr. Ilir Hernández Work Phone: [facility] Work Phone: Start: 11-15-2023 Telephone encounter Yunier Owen MD Work Phone: Pulmonary Medicine Comment on above: Patient Update Start: 11-10-2023 Unlisted evaluation and management service Ysabel Edwards APRN.MATERIAL LOADER Work Phone: [facility] [place] Comment on above: Opened In Error Start: 11-08-2023 Telephone encounter Ilir Hernández MD Work Phone: Family [facility] [place] Comment on above: Orders; Patient Ques tion Start: 11-07-2023 End: 11-07-2023 Office outpatient visit 25 minutes Ysabel Edwards APRN.MATERIAL LOADER Work Phone: [facility] [place] Comment on above: Closed fracture of l eft hip with routine healing, subsequent encounter (Primary Dx); Cutaneous candidiasis; 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 Chadd Hernández Work Phone: [facility] Start: 11-02-2023 Dr. Ilir Crews Work Phone: [facility] Start: 10-26-[address] Chadd Hernández Work Phone: [facility] Start: 10-26-2023 Dr. Ilir Crews Work Phone: [facility] Start: 10-19-[address] Chadd Hernández Work Phone: [facility] Start: 10-19-2023 Dr. Ilir Crews Work Phone: [facility] Start: 10-14-[address] Chadd Hernández Work Phone: [facility] Start: 10-14-2023 Dr. Ilir Crews Work Phone: [facility] Start: 10-13-2023 Non-patient / Non-visit Dr. Santy Hernández Work Phone: [facility] Work Phone: Start: 10-13-2023 Dr. Ilir Crews Work Phone: [facility] Work Phone: Start: 10-12-2023 End: 04-13-2024 Telephone encounter Usman Barboza PA-C Work Phone: [facility] [place] Start: 10-12-2023 Non-patient / Non-visit Dr. Santy Hernández Work Phone: [facility] Work Phone: Start: 10-12-2023 Dr. Ilir Crews Work Phone: [facility] Work Phone: Start: 10-11-2023 End: 10-13-2023 Evaluation and management of inpatient Dr. Ilir Hernández [facility] Work Phone: Start: 10-11-2023 End: 10-13-2023 Dr. Ilir Hernández [facility] Work Phone: Start: 10-07-2023 Telephone encounter Ilir Cutler MD Work Phone: Neurology Comment on above: Orders Start: 10-06-2023 Documentation procedure Mammog balbir Coordinator [facility] Start: 10-06-2023 Letter encounter Mammography Coordinator [facility] Department Start: 10-05-2023 Patient encounter procedure Nader Eldridge MD Work Phone: Pulmonary Medicine Start: 10-05-2023 Telephone encounter Yunier Owen MD Work Phone: Pulmonary Medicine Comment on above: Results (Chest CT) Results Start: 10-05-2023 End: 10-05-2023 Patient encounter status [facility] Start: 10-05-2023 End: 10-05-2023 Subsequent hospital visit by physician Screen Mammo [facility] Comment on above: Encounter for gyneco logical examination (general) (routine) without abnormal findings [Z01.419] Start: 10-04-2023 Telephone encounter M Luis Barboza PA-C Work Phone: [facility] [place] Comment on above: CT Chest results Start: 09-29-2023 End: 09-29-2023 Subsequent hospital visit by physician Ct [facility] (I-Stat) Work Phone: Cat Scan Comment on above: Lung nodules [R91.8] Start: 09-19-2023 End: 09-19-2023 Patient encounter procedure Ilir Cutler MD Work Phone: Neurology Comment on above: Obstructive sleep ap rosamaria (adult) (pediatric) (Primary Dx); Class 2 obesity with body mass index (BMI) of 39.0 to 39.9 in adult, unspecified obesity type, unspecified whether serious comorbidity present; Sleep related hypoxia Start: 08-25-2023 End: 08-25-[address] Ilir Hernández Work Phone: [facility] Work Phone: Start: 08-25-2023 End: 08-25-[address] Ilir Hernández Work Phone: [facility] Work Phone: Start: 08-25-2023 End: 08-25-2023 Dr. Ilir Hern[facility]dez [facility] Work Phone: Start: 08-17-2023 End: 08-17-[address] Ilir Hernández Work Phone: [facility] Work Phone: Start: 08-17-2023 End: 08-17-2023 Dr. Ilir Hernández Work Phone: [facility] Work Phone: Start: 08-06-2023 Non-patient / Non-visit Dr. Santy Hernández Work Phone: [facility] Start: 08-06-2023 Dr. Ilir Crews Work Phone: [facility] Start: 08-04-2023 Telephone encounter Cara webb APRN.CNP Work Phone: OB/Gynecology Comment on above: Results Start: 08-04-2023 End: 08-04-[address] Ilir Hernández Work Phone: [facility] Work Phone: Start: 08-04-2023 End: 08-04-[address] Ilir Hernández Work Phone: [facility] Services/Neurology Work Phone: Start: 08-04-2023 End: 08-04-2023 Dr. Ilir Hernández Work Phone: [facility]/Neurology Work Phone: Start: 07-29-2023 End: 07-29-2023 Patient encounter procedure Yunier Owen MD Work Phone: Pulmonary Medicine Comment on above: Chronic cough (Prima ry Dx); Ground glass opacity present on imaging of lung; Former smoker; Lung nodules Start: 07-27-2023 Telephone encounter Ilir Hernández MD Work Phone: Family [facility] Comment on above: Results Start: 07-26-2023 End: 07-26-2023 Subsequent hospital visit by physician Xr [facility] Work Phone: Radiology Comment on above: Bacterial pneumonia [J15.9] Start: 07-08-2023 Refill Ilir Hernández MD Work Phone: [facility] Comment on above: Refill Request Start: 07-05-2023 Telephone encounter Ilir Hernández MD Work Phone: [facility] Comment on above: Results Start: 07-04-2023 Telephone encounter Ilir Hernández MD Work Phone: [facility] [place] Comment on above: Results Start: 07-04-2023 End: 07-04-2023 Patient encounter procedure Ilir Hernández MD Work Phone: [facility] [place] Comment on above: Bacterial pneumonia (Primary Dx); Vaginal discomfort; Leukocytosis, unspecified type; Dermatitis Start: 07-02-2023 Telephone encounter Usman Barboza PA-C Work Phone: [facility] Comment on above: Results Start: 07-01-2023 End: 07-01-2023 Subsequent hospital visit by physician Xr [facility] Work Phone: Radiology Comment on above: Bacterial pneumonia [J15.9] Start: 06-30-2023 Telephone encounter Ilir Hernández MD Work Phone: [facility] Comment on above: Patient Update Start: 06-28-2023 End: 06-28-2023 Patient encounter procedure Ilir Hernández MD Work Phone: [facility] Comment on above: Bacterial pneumonia (Primary Dx); Inflammatory polyarthritis (HCC); 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 Santy Hernández Work Phone: [facility] Work Phone: Start: 06-22-2023 Non-patient / Non-visit Dr. Santy Hernández Work Phone: [facility] Work Phone: Start: 06-21-2023 End: 06-23-2023 Evaluation and management of inpatient Dr. Ilir Hernández [facility] Work Phone: Start: 06-21-2023 Non-patient / Non-visit Dr. Santy Hernández Work Phone: [facility] Work Phone: Start: 06-21-2023 End: 06-21-2023 Patient encounter procedure Sherley Edgar PA-C Work Phone: [facility] Comment on above: Fever, unspecified f ever cause (Primary Dx); Hypoxic Start: 06-21-2023 End: 06-21-2023 Patient encounter procedure Yunier Owen MD Work Phone: Pulmonary Medicine Comment on above: Chronic cough (Prima ry Dx); Gastroesophageal reflux disease, unspecified whether esophagitis present; Former smoker; Lung nodule Start: 06-20-2023 Refill Ilir Hernández MD Work Phone: [facility] Comment on above: Refill Request Start: 06-16-2023 End: 06-16-2023 Subsequent hospital visit by physician [facility] Work Phone: Radiology Comment on above: Left flank pain [R10 .9] Start: 06-15-2023 End: 06-15-2023 Patient encounter procedure Meron Ramos APRN.CNP Work Phone: [facility] Comment on above: Left flank pain (Mihaela lisa Dx); Acute cystitis without hematuria Start: 06-14-2023 Telephone encounter Ilir Hernández MD Work Phone: [facility] Comment on above: Patient Question; Home nelson Update Start: 06-13-2023 End: 06-13-2023 Refill Cara [place] DONNIE Work Phone: OB/Gynecology Comment on above: Refill Request Chronic cough (Prima ry Dx); Inflammatory polyarthritis (HCC); Primary hypertension; Mixed hyperlipidemia; Dermatitis Start: 06-01-2023 End: 06-01-2023 OT/PT/Speech Visit Alfie Leiva PT [facility] Comment on above: Lumbar pain (Primary Dx); Balance disorder Start: 05-30-2023 Telephone encounter Ilir Hernández MD Work Phone: [facility] Comment on above: Results; Patient Jose castillo Start: 05-27-2023 End: 05-27-[address] Ilir Hernández Work Phone: [facility] Work Phone: Start: 05-27-2023 End: 05-27-[address] Ilir Hernández Work Phone: [facility], [place] Work Phone: Start: 05-18-2023 End: 05-18-2023 OT/PT/Speech Visit Alfie Leiva PT [facility] Physical Therapy Comment on above: Lumbar pain (Primary Dx); Balance disorder Start: 05-14-2023 End: 05-14-2023 Patient encounter procedure Sherley Edgar PA-C Work Phone: [facility] Comment on above: Stasis dermatitis, a cute (Primary Dx) Start: 05-14-2023 End: 05-14-2023 ambulatory [facility] [place] Work Phone: [facility] [place] Start: 05-12-2023 Telephone encounter Ilir Hernández MD Work Phone: [facility] Comment on above: Results Start: 05-12-2023 End: 05-12-2023 Subsequent hospital visit by physician Alma [facility] Work Phone: Radiology Comment on above: SOB (shortness of br eath) [R06.02] Start: 05-09-2023 End: 05-09-[address] Ilir Hernández 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, with long-term current use of insulin, unspecified laterality (HCC); Subclinical hypothyroidism Start: 05-03-2023 End: 05-03-2023 OT/PT/Speech Visit Alfie Leiva PT [facility] Physical Therapy Comment on above: Lumbar pain (Primary Dx); Balance disorder Start: 04-11-2023 End: 04-11-2023 Patient encounter procedure Usman Barboza PA-C Work Phone: [facility] Comment on above: Primary hypertension (Primary Dx); Lumbar pain; Balance disorder Start: 04-06-2023 Telephone encounter Usman Barboza PA-C Work Phone: [facility] Comment on above: Results Start: 03-31-2023 End: 03-31-2023 Subsequent hospital visit by physician Ct [facility] (I-Stat) Work Phone: Cat Scan Comment on above: Nodule of right lung [R91.1] Start: 03-07-2023 End: 03-07-[address] Ilir Hernández Work Phone: [facility] Work Phone: Start: 03-07-2023 Telephone encounter Ilir Cutler MD Work Phone: Neurology Comment on above: Results Start: 03-04-2023 End: 03-04-[address] Ilir Hernández Work Phone: [facility] Work Phone: Start: 03-04-2023 End: 03-04-[address] Ilir Hernández Work Phone: [facility], [place] Work Phone: Start: 03-01-2023 End: 03-01-[address] Ilir Hernández Work Phone: [facility]Sleep Lab Work Phone: Start: 02-19-2023 Telephone encounter Ilir Hernández MD Work Phone: [facility] Comment on above: Results Start: 02-18-2023 Telephone encounter Ilir Hernández MD Work Phone: [facility] Comment on above: Results Start: 02-17-2023 End: 02-17-2023 Patient encounter procedure Usman Barboza PA-C Work Phone: [facility] Comment on above: Primary hypertension (Primary Dx); Mixed hyperlipidemia; SVT (supraventricular tachycardia) ([facility]); RICARDO (obstructive sleep apnea); Stage 3 chronic kidney disease, unspecified whether stage 3a or 3b CKD ([facility]); 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, with long-term current use of insulin, unspecified laterality (HCC); Insulin pump in place; Gastroparesis due to secondary diabetes ([facility]); Subclinical hypothyroidism; Urinary frequency; Microalbuminuria Start: 02-10-2023 Telephone encounter Ilir Hernández MD Work Phone: [facility] Comment on above: Results Start: 02-07-2023 Telephone encounter Ilir Hernández MD Work Phone: [facility] Comment on above: Results Start: 01-31-2023 End: 01-31-2023 Patient encounter procedure Ilir Cutler MD Work Phone: Neurology Comment on above: Obstructive sleep ap rosamaria (adult) (pediatric) (Primary Dx); Sleep related hypoxia; Hypoglycemia; Hypertension, unspecified type Start: 01-31-2023 Telephone encounter Ilir Cutler MD Work Phone: Neurology Comment on above: Patient Update; 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 Ilir Hernández Work Phone: [facility] Work Phone: Start: 01-12-2023 End: 01-12-2023 Patient encounter procedure Joana Naranjo APRN.[facility] Work Phone: [facility] Comment on above: Nasal congestion (Pr imary Dx) Start: 01-11-2023 End: 01-11-[address] Ilir Hernández Work Phone: [facility] Work Phone: Start: 01-11-2023 End: 01-11-[address] 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 Ilir Hernández Work Phone: [facility]-Emergency Department Start: 12-03-2022 Telephone encounter Ilir Hernández MD Work Phone: [facility] Comment on above: Results Start: 11-26-2022 End: 11-26-[address] Ilir Hernández Work Phone: [facility] Endocrinology Start: 11-04-2022 ambulatory Katelin Woods [facility] Comment on above: Population Health Na vigation Outreach ([facility]) Start: 10-29-2022 Refill Cara Megha FIELDS Work Phone: OB/Gynecology Comment on above: Refill Request; Refi ll Request Start: 10-21-2022 Chart abstracting Ilir Crews MD Work Phone: [facility] [place] Start: 10-20-2022 End: 10-20-[address] Ilir Hernández Work Phone: [facility] Endocrinology Start: 10-05-2022 Documentation procedure Mammog balbir Coordinator [facility] Start: 10-05-2022 Letter encounter Mammography Coordinator [facility] Department Start: 10-04-2022 End: 10-04-2022 Subsequent hospital visit by physician Screen Mammo [facility] Comment on above: Screening breast exa mination [Z12.39] Start: 09-27-2022 End: 09-27-2022 Subsequent hospital visit by physician Ct [facility] (I-Stat) Work Phone: Cat Scan Comment on above: Lung nodules [R91.8] Start: 09-15-2022 End: 09-15-[address] Ilir Hernández Work Phone: [facility] Work Phone: Start: 09-15-2022 End: 09-15-[address] Ilir Hernández Work Phone: [facility] Start: 09-09-2022 End: 09-09-[address] Ilir Hernández Work Phone: [facility] Gastroenterology Start: 09-01-2022 End: 09-01-[address] Ilir Hernández Work Phone: [facility]-Pulmonary Services/Neurology Start: 08-30-2022 End: 08-30-[address] Ilir Hernández Work Phone: [facility] Start: 08-06-2022 Refill Ilir Hernández MD Work Phone: [facility] Comment on above: Refill Request Start: 08-05-2022 Telephone encounter Ilir Hernández MD Work Phone: [facility] Comment on above: Results Start: 07-23-2022 Refill Ilir Hernández MD Work Phone: [facility] Comment on above: Refill Request Start: 07-19-2022 Refill Ilir Hernández MD Work Phone: [facility] Comment on above: Refill Request Results Start: 07-15-2022 Refill Usman Juarez on PA-C Work Phone: [facility] Comment on above: Refill Request Start: 07-07-2022 End: 07-07-[address] 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 Ilir Hernández Work Phone: [facility] Work Phone: Start: 06-18-2022 End: 06-18-[address] Ilir Hernández Work Phone: [facility] Start: 06-02-2022 ambulatory No Pcp (Historical) Ref erring Physician Start: 05-28-2022 Refill Ilir Hernández MD Work Phone: [facility] Comment on above: Refill Request Start: 05-27-2022 End: 05-27-[address] Ilir Hernández Work Phone: [facility] Endocrinology Start: 05-17-2022 End: 05-17-[address] 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, unspecified retinopathy severity, unspecified whether technician terminal and repeater insulin use (HCC) Start: 05-03-2022 ambulatory Jd Mccabe APRN.CNP Work Phone: [facility] Start: 05-03-2022 End: 05-03-2022 Office outpatient visit 25 minutes Jd Mccabe APRN.MATERIAL LOADER Work Phone: [facility] Comment on above: Cellulitis of left u pper extremity (Primary Dx); 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 Ilir Hernández Work Phone: [facility]-Emergency Department Start: 04-12-2022 Refill Ilir Hernández MD Work Phone: [facility] Comment on above: Refill Request Start: 04-09-2022 Telephone encounter Usman Barboza PA-C Work Phone: [facility] Comment on above: Results Start: 04-08-2022 Telephone encounter Usman Barboza PA-C Work Phone: [facility] Comment on above: Orders Start: 04-06-2022 End: 04-06-2022 Patient encounter procedure Usman Barboza PA-C Work Phone: [facility] Comment on above: Frequent urination ( Primary Dx); Muscle cramps; Serum calcium elevated; Dehydration; Leukocytosis, unspecified type; Lactic acid acidosis Start: 04-05-2022 Refill Ilir Hernández MD Work Phone: [facility] [place] Comment on above: Refill Request Start: 03-24-2022 End: 03-24-[address] Ilir Hernández Work Phone: [facility] Start: 03-19-2022 End: 03-19-[address] Ilir Hernández Work Phone: [facility] Start: 03-16-2022 End: 03-16-[address] Ilir Hernández Work Phone: [facility] Endocrinology Start: 03-12-2022 Non-patient / Non-visit Dr. Santy Hernández Work Phone: [facility] Start: 03-12-2022 End: 03-12-[address] Ilir Hernández Work Phone: [facility]Cardiovascular Services Start: 02-25-2022 End: 02-25-[address] Ilir Hernández Work Phone: [facility] Gastroenterology Start: 02-24-2022 End: 02-24-[address] Ilir Hernández Work Phone: [facility] Start: 02-17-2022 Refill Ilir Hernández MD Work Phone: [facility] Comment on above: Refill Request Start: 02-11-2022 Non-patient / Non-visit Dr. Santy Hernández Work Phone: [facility] Start: 02-11-2022 End: 02-11-2022 Admission to same day surgery center Dr. Ilir Hernández Work Phone: [facility]-Endoscopy Start: 02-08-2022 Telephone encounter Ilir Hernández MD Work Phone: [facility] Comment on above: Faxed to [facility] Start: 02-05-2022 Non-patient / Non-visit Dr. Santy Hernández Work Phone: [facility] Start: 02-02-2022 End: 02-02-[address] Ilir Hernández Work Phone: [facility] Endocrinology Start: 02-01-2022 Telephone encounter Ilir Hernández MD Work Phone: [facility] Comment on above: Patient Update Start: 01-15-2022 End: 01-15-2022 Nursing evaluation of patient and report Mi Nurse Work Phone: [facility] Comment on above: Primary hypertension (Primary Dx) Start: 12-30-2021 Telephone encounter Ilir Hernández MD Work Phone: [facility] Comment on above: Insurance Authorizat ion Start: 12-15-2021 End: 12-15-2021 Patient encounter procedure Ilir Hernández MD Work Phone: [facility] Comment on above: 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 Ilir Hernández Work Phone: [facility] Start: 12-10-2021 Telephone encounter Ilir Hernández MD Work Phone: [facility] Comment on above: Patient Update; Raisa ent Question Orders Start: 11-23-2021 End: 11-23-[address] Ilir Hernández Work Phone: [facility] Start: 11-19-2021 Refill Ilir Hernández MD Work Phone: [facility] Comment on above: Refill Request Start: 11-13-2021 End: 11-13-[address] Ilir Hernández Work Phone: [facility] Gastroenter[facility] Start: 10-22-2021 End: 10-22-[address] Ilir Hernández Work Phone: [facility] Endocrinology Start: 10-12-2021 End: 10-12-[address] Ilir Hernández Work Phone: [facility] Start: 09-23-2021 End: 09-23-2021 Subsequent hospital visit by physician [facility] Work Phone: Radiology Comment on above: Low back pain, unspe cified back pain laterality, unspecified chronicity, unspecified whether sciatica present [M54.50] Start: 09-14-2021 End: 09-14-[address] Ilir Hernández Work Phone: [facility] Start: 05-26-2020 End: 05-26-2020 Subsequent hospital visit by physician Xr [facility] Work Phone: Radiology Comment on above: Chronic cough [R05] Start: 02-05-2020 Patient encounter procedure UNKNOWN PROVIDER Facility:[facility] Start: 07-04-2009 End: 11-22-2013 Patient encounter status Ilir Hernández MD Work Phone: [facility] Procedures Date Procedure Procedure Detail Performing Clinician Start: 02-20-2025 Urnls dip stick/tablet rgnt auto w/o microscopy Ysabel Edwards APRN.MATERIAL LOADER Work Phone: Start: 01-21-2025 Hemoglobin A1c/Hemoglobin.total in Blood [facility] Provider Start: 11-28-2024 Digital breast tomosynthesis unilateral Ilir Hernández MD Work Phone: Start: 08-16-2024 Adult depression screening assessment Claire Lancaster 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 Work Phone: Start: 07-16-2024 Lipid panel [facility] Provider Start: 01-03-2024 Urnls dip stick/tablet rgnt auto w/o microscopy Ysabel Edwards APRN.MATERIAL LOADER Work Phone: Start: 12-28-2023 Hemoglobin A1c/Hemoglobin.total in Blood [facility] Provider Start: 11-18-2023 Legionella pneumophila antigen assay Dr. Ilir Hernández Work Phone: Start: 11-18-2023 Dr. Ilir Hernández Work Phone: Start: 11-17-2023 Investigation of transfusion reaction Dr. Ilir Hernández Work Phone: Start: 11-17-[address] Ilir Hernández Work Phone: Start: 11-17-2023 Dr. Ilir Hernández Work Phone: Start: 11-17-2023 CT angiography of chest with contrast Dr. Ilir Hernández Work Phone: Start: 11-17-2023 Plain chest X-ray Dr. Ilir Hernández Work Phone: Start: 11-07-2023 Urnls dip stick/tablet reagent auto microscopy Ysabel Edwards 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 Work Phone: Start: 10-26-[address] Ilir Hernández Work Phone: Start: 10-12-[address] Ilir Hernández Work Phone: Start: 10-11-2023 SARS-CoV-2, Influenza & RSV (PCR) Dr. Ilir Hernández Work Phone: Start: 10-11-2023 Dr. Ilir Hernández Work Phone: Start: 10-11-2023 Open reduction of fracture of femur with internal fixation Dr. Ilir Hernández Work Phone: Start: 10-11-[address] Ilir Hernández Work Phone: Start: 10-11-2023 Plain X-ray of hip Dr. Ilir Hernández Work Phone: Start: 10-11-2023 CT of head without contrast Dr. Ilir Hernández Work Phone: Start: 10-11-2023 Plain chest X-ray Dr. Ilir Hernández Work Phone: Start: 10-11-2023 Plain x-ray of pelvis and lower extremity Dr. Ilir Hernández Work Phone: Start: 09-29-2023 Ct thorax w/o contrast material M Luis Barboza PA-C Work Phone: Start: 07-04-2023 Urnls dip stick/tablet rgnt auto w/o microscopy Ilir Hernández MD Work Phone: Start: 07-01-2023 Radiologic exam chest 2 views Ilir Hernández MD Work Phone: Start: 06-22-[address] Ilir Hernández Work Phone: Start: 06-21-2023 CT angiography of chest with contrast Dr. Ilir Hernández Work Phone: Start: 06-21-2023 Plain chest X-ray Dr. Ilir Hernández Work Phone: Start: 06-21-2023 Bacteria identified in Blood by Culture Dr. Ilir Hernández Work Phone: Start: 06-21-2023 SARS-CoV-2 & FLU Antigen (Rapid) Dr. Ilir Hernández Work Phone: Start: 06-21-[address] Ilir Hernández Work Phone: Start: 06-16-2023 Us retroperitoneal real time w/image complete Meron Ramos APRN.MATERIAL LOADER Work Phone: Start: 06-15-2023 Urnls dip stick/tablet rgnt auto w/o microscopy Meron Ramos APRN.MATERIAL LOADER Work Phone: Start: 05-14-2023 [employer] COVID-19 VACCINE ( SEASON) AGE 12+ YR Renetta George MD Work Phone: Start: 05-14-2023 INFLUENZA VACCINE, PRSV FREE, AGE 65+ YR, HIGH DOSE, QUADRIVALENT (FLUZONE HIGH-DOSE) Renetta George MD Work Phone: Start: 05-12-2023 Radiologic exam chest 2 views Ilir Hernández MD Work Phone: Start: 03-31-2023 Ct thorax w/o contrast material Usman Barboza PA-C Work Phone: Start: 02-17-2023 Urnls dip stick/tablet rgnt auto w/o microscopy Usman Barboza PA-C Work Phone: Start: 12-04-2022 Plain chest X-ray Dr. Ilir Hernández Work Phone: Start: 10-20-2022 Hemoglobin A1c/Hemoglobin.total in Blood [facility] Provider Start: 10-04-2022 JACQUELYN SCREENING W CHANELLE Hernández MD Work Phone: Start: 10-04-2022 Mammography Mammography Coordinator Start: 09-27-2022 Ct thorax w/o contrast material Usman Barboza PA-C Work Phone: Start: 05-02-2022 Plain x-ray of elbow Dr. Ilir Hernández Work Phone: Start: 04-06-2022 Urnls dip stick/tablet rgnt auto w/o microscopy Usman Barboza PA-C Work Phone: Start: 03-24-2022 Radiologic examination of knee Dr. Ilir Hernández Work Phone: Start: 02-11-[address] Ilir Hernández Work Phone: Start: 12-15-2021 Adult depression screening assessment Ilir Hernández MD Work Phone: Start: 11-23-[address] Ilir Hernández Work Phone: Start: 09-23-2021 Radex spine lumbosacral 2/3 views Joana Naranjo APRN.CNP Work Phone: Start: 06-09-2021 Mammography Ilir Hernández MD Work Phone: Start: 12-17-2020 Colonoscopy Ilir Hernández MD Work Phone: Start: 05-26-2020 Radiologic exam chest 2 views M Luis Barboza PA-C Work Phone: Start: 09-05-2019 Adult depression screening assessment Ilir Hernández MD Work Phone: Anaerobic microbial culture Dr. Ilir Hernández Work Phone: Bacterial culture Dr. Chadd Hernández Work Phone: History of cholecystectomy S/P cholecyste ctomy Dr. lIir Hernández MD Work Phone: Investigation of transfusion reaction Dr. Ilir Hernández Work Phone: Urine culture Dr. Ilir Crews Work Phone: Plan of Treatment Date Care Activity Detail Author Start: 12-02-2032 Urine microalbumin profile [facility] Start: 06-30-2027 Urine microalbumin profile DTA P,TDAP,TD (4 - Td or Tdap) [facility] Start: 04-01-2026 Annual PCP Team Escort Patients babar Disease Visit Annual PCP Team Chronic Disease Visit [facility] Start: 04-01-2026 Creatinine measurement Serum Creatin ine [facility] Start: 03-05-2026 Glaucoma screening Dilated Retinal E xam [facility] Start: 02-20-2026 Annual PCP Team Escort Patients babar Disease Visit Annual PCP Team Chronic Disease Visit [facility] Start: 10-08-2025 Screening for malign ant neoplasm of breast Mammogram Screening [facility] Start: 10-02-2025 End: 10-02-2025 Patient encounter procedure 10/02/2025 2:40 PM EST Office Visit [facility] [address] [place] [address] Ilir Hernández MD [address] [place] [id number] 6 mo follow up [facility] Comment on above: 6 mo follow up Start: 09-26-2025 Annual PCP Team Escort Patients babar Disease Visit Annual PCP Team Chronic Disease Visit [facility] Start: 09-26-2025 Creatinine measurement Serum Creatin ine [facility] Start: 09-26-2025 Hepatitis B screening Urine Albumin:Creatinine Ratio [facility] Start: 08-23-2025 Diabetic foot examination Diabetic F oot Exam [facility] Start: 08-16-2025 Anxiety Screening Anxiety Screening [facility] Start: 08-16-2025 Depression Screening Depression Scre ening [facility] Start: 07-16-2025 Hepatitis B surface antibody level LDL Cholesterol [facility] Start: 06-07-2025 Glaucoma screening Dilated Retinal E xam [facility] Start: 05-24-2025 End: 05-24-2025 Patient encounter procedure Pulmonary Medicine Comment on above: 3 month follow up Start: 05-07-2025 Glaucoma screening Dilated Retinal E xam [facility] Start: 04-23-2025 Hemoglobin A1c measurement HbA1C [facility] Start: 04-23-2025 End: 04-23-2025 Patient encounter procedure 04/23/2025 1:30 PM EDT Office Visit Podiatry [address] [place] [address] [place] [address] [place] [address] 4 month follow up Podiatry Comment on above: 4 month follow up Start: 04-22-2025 End: 04-22-2025 Patient encounter procedure 04/22/2025 1:30 PM EDT Office Visit Podiatry [address] [place] [address] [place] [address] [place] [address] 4 month follow up Podiatry Comment on above: 4 month follow up Start: 04-15-2025 Influenza vaccination Influenza Vacc ine (#1) [facility] Start: 04-03-2025 BP Controlled (<130/80) BP Controlle d (<130/80) [facility] Start: 04-03-2025 Creatinine measurement Serum Creatin ine [facility] Start: 04-01-2025 End: 04-01-2025 Patient encounter procedure 04/01/2025 2:20 PM EDT Office Visit [facility] [address] [place] [address] Ilir Hernández MD [address] [place] [address] physical [facility] [place] Comment on above: physical Start: 04-01-2025 End: 07-01-2025 25-hydroxyvitamin D3 [Mass/volume] in Serum or Plasma [facility] Comment on above: Expected: 04/01/2025 , Expires: 07/01/2025 Start: 04-01-2025 End: 07-01-2025 Comprehensive metabolic 2000 panel - Serum or Plasma [facility] Work Phone: Comment on above: Expected: 04/01/2025 , Expires: 07/01/2025 Start: 04-01-2025 End: 07-01-2025 Thyrotropin [Units/volume] in Serum or Plasma [facility] Comment on above: Expected: 04/01/2025 , Expires: 07/01/2025 Start: 03-19-2025 Annual PCP Team Escort Patients babar Disease Visit Annual PCP Team Chronic Disease Visit [facility] Start: 02-20-2025 End: 02-20-2025 Patient encounter procedure 02/20/2025 1:20 PM EDT Office Visit [facility] [place] [address] [place] [address] Ysabel Edwards APRN.MATERIAL LOADER [address] [place] [address] Muscle spasms under ribs, saw pulm 02/19/25 [facility] [place] Comment on above: Muscle spasms under ribs, saw pulm 02/19/25 Start: 02-19-2025 BP Controlled (<130/80) BP Controlle d (<130/80) [facility] Start: 02-19-2025 End: 02-19-2025 Patient encounter procedure Cat Scan Comment on above: Lung nodules [R91.8] Start: 02-18-2025 End: 11-18-2025 CT Chest WO contrast CT CHEST WO IVCON Radiology Routine Lung nodules Expected: 02/18/2025, Expires: 11/18/2025 [facility] Work Phone: Comment on above: Expected: 02/18/2025 , Expires: 11/18/2025 Start: 01-02-2025 Annual PCP Team Escort Patients babar Disease Visit Annual PCP Team Chronic Disease Visit [facility] Start: 12-27-2024 Covid-19 Vaccine (8 - Mixed Product risk ) Covid-19 Vaccine (8 - Mixed Product risk ) [facility] Start: 12-24-2024 Hemoglobin A1c measurement HbA1C [facility] Start: 12-20-2024 End: 12-20-2024 Patient encounter procedure Podiatry Comment on above: 4 month follow up Start: 11-28-2024 End: 11-28-2024 Patient encounter procedure Mammogram Comment on above: Comp- CB RT, Abnorma l mammogram [R92.8] Abnormal mammogram [ R92.8] Start: 11-27-2024 Annual PCP Team Escort Patients babar Disease Visit Annual PCP Team Chronic Disease Visit [facility] Start: 11-09-2024 End: 11-09-2024 Patient encounter procedure 11/09/2024 11:45 AM EDT Office Visit Pulmonary Medicine [address] [place] [id number] Yunier Owen MD [address] [place] [id number] Lung nodules [R91.8] Pulmonary Medicine Comment on above: Lung nodules [R91.8] Start: 11-06-2024 Annual PCP Team Escort Patients babar Disease Visit Annual PCP Team Chronic Disease Visit [facility] Start: 11-06-2024 BP Controlled (<130/80) BP Controlle d (<130/80) [facility] Start: 11-01-2024 End: 11-01-2024 Patient encounter procedure 11/01/2024 2:15 PM EDT Appointment Radiology [address] [place] [id number] Senile osteoporosis [M81.0] Radiology Comment on above: Senile osteoporosis [M81.0] Start: 10-31-2024 End: 10-31-2024 Patient encounter procedure Mammogram Comment on above: Abnormal mammogram [ R92.8] Start: 10-16-2024 End: 01-15-2025 Bacteria identified in Urine by Culture [facility] Comment on above: Expected: 10/16/2024 , Expires: 01/15/2025 Start: 10-16-2024 End: 01-15-2025 Urinalysis complete panel - Urine [facility] Work Phone: Comment on above: Expected: 10/16/2024 , Expires: 01/15/2025 Start: 10-15-2024 Screening for malign ant neoplasm of cervix Cervical Cancer Screening [facility] Comment on above: Postponed from 08/02 (Currently Scheduled) Start: 10-12-2024 End: 11-10-2024 CT Chest WO contrast [facility] Work Phone: Comment on above: Expected: 10/12/2024 , Expires: 11/10/2024 Start: 10-12-2024 End: 10-12-2024 Patient encounter procedure Cat Scan Comment on above: Lung nodules [R91.8] 6 month f/u Start: 10-08-2024 End: 10-08-2024 Patient encounter procedure 10/08/2024 1:30 PM EST Appointment Mammogram [address] [place] [address] Encounter for screening mammogram for malignant neoplasm of breast [Z12.31] Mammogram Comment on above: Encounter for screen ing mammogram for malignant neoplasm of breast [Z12.31] Start: 10-06-2024 MG Breast Screening JACQUELYN SCREEN ING Radiology Routine Encounter for screening mammogram for malignant neoplasm of breast Expected: 10/06/2024 [facility] Work Phone: Comment on above: Expected: 10/06/2024 Start: 10-05-2024 Screening for malign ant neoplasm of breast Mammogram Screening [facility] Start: 10-03-2024 Iv infusion therapy/prophylaxis /dx 1st to 1 [facility] Start: 09-26-2024 End: 09-26-2024 Patient encounter procedure 09/26/2024 2:40 PM EST Office Visit [facility] [place] [address] [place], [place] [id number] Ilir Hernández MD [address] [place], [place] [phone] 6 month f/u [facility] [place] Comment on above: 6 month f/u Start: 09-26-2024 End: 12-26-2024 Thyrotropin [Units/volume] in Serum or Plasma THYROID STIMULATING HORMONE Lab Routine Subclinical hypothyroidism Expected: 09/26/2024, Expires: 12/26/2024 [facility] Comment on above: Expected: 09/26/2024 , Expires: 12/26/2024 Start: 09-24-2024 End: 09-24-2024 Patient encounter procedure 09/24/2024 2:15 PM EST Appointment Radiology [address] [place] [id number] Senile osteoporosis [M81.0] Radiology Comment on above: Senile osteoporosis [M81.0] Start: 09-17-2024 Diabetic foot examination Diabetic F oot Exam [facility] Comment on above: Postponed from 12/07 (Currently Scheduled) Start: 09-07-2024 Annual PCP Team Escort Patients babar Disease Visit Annual PCP Team Chronic Disease Visit [facility] Start: 08-24-2024 Covid-19 Vaccine ( season) Covid-19 Vaccine () [facility] Start: 08-24-2024 End: 08-24-2024 Patient encounter procedure Neurology Comment on above: 6 month follow up 6 month follow up, r eturned Cpap, discuss [employer] Start: 08-23-2024 End: 08-23-2024 Patient encounter procedure 08/23/2024 10:00 AM EST Office Visit Podiatry [address] [place] [address] [place] [address] [address] Onychomycosis [B35.1] Podiatry Comment on above: Onychomycosis [B35.1 ] Start: 08-16-2024 End: 11-15-2024 Alpha 1 antitrypsin [Mass/volume] in Serum or Plasma [id number] Lab Routine Chronic obstructive pulmonary disease, unspecified COPD type ([facility]) Expected: 08/16/2024, Expires: 11/15/2024 [facility] Comment on above: Expected: 08/16/2024 , Expires: 11/15/2024 Start: 08-16-2024 End: 11-15-2024 CBC W Auto Differential panel - Blood COMPLETE BLOOD COUNT AND DIFFERENTIAL Lab Routine Gastroparesis due to secondary diabetes (HCC) Chronic obstructive pulmonary disease, unspecified COPD type (HCC) Expected: 08/16/2024, Expires: 11/15/2024 [facility] Comment on above: Expected: 08/16/2024 , Expires: 11/15/2024 Start: 08-16-2024 End: 11-15-2024 Comprehensive metabolic 2000 panel - Serum or Plasma COMPREHENSIVE METABOLIC PANEL Lab Routine Gastroparesis due to secondary diabetes (HCC) Chronic obstructive pulmonary disease, unspecified COPD type (HCC) Expected: 08/16/2024, Expires: 11/15/2024 [facility] Comment on above: Expected: 08/16/2024 , Expires: 11/15/2024 Start: 08-16-2024 End: 11-15-2024 Hemoglobin A1c in Blood HEMOGLOBIN A1C Lab Routine Gastroparesis due to secondary diabetes (HCC) Expected: 08/16/2024, Expires: 11/15/2024 [facility] Comment on above: Expected: 08/16/2024 , Expires: 11/15/2024 Start: 08-16-2024 End: 11-15-2024 Microalbumin/Creatinine [Mass Ratio] in Urine ALBUMIN/CREATININE RATIO, URINE Lab Routine Gastroparesis due to secondary diabetes (HCC) Expected: 08/16/2024, Expires: 11/15/2024 [facility] Comment on above: Expected: 08/16/2024 , Expires: 11/15/2024 Start: 08-16-2024 End: 08-16-2024 Patient encounter procedure 08/16/2024 12:40 PM EST Office Visit [facility] [place] [address] [place], [place] [id number] Claire Lancaster APRN.MATERIAL LOADER [address] [place], [place] [phone] 2 week cellulitis follow up [facility] [place] Comment on above: 2 week cellulitis fo llow up Start: 08-15-2024 Advance Directive Discussion Advance Directive Discussion [facility] Start: 08-15-2024 Medicare Advantage A nnual Wellness Visit Medicare Advantage Annual Wellness Visit [facility] Start: 08-04-2024 Glaucoma screening Dilated Retinal E xam [facility] Start: 08-02-2024 BP Controlled (<130/80) BP Controlle d (<130/80) [facility] Start: 08-02-2024 Screening for malign ant neoplasm of cervix Cervical Cancer Screening [facility] Start: 07-27-2024 Annual PCP Team Escort Patients babar Disease Visit Annual PCP Team Chronic Disease Visit [facility] Start: 07-27-2024 Covid-19 Vaccine () Covid-19 Vaccine () [facility] Comment on above: Postponed from 07/09 (Declined at this time) Start: 07-27-2024 RSV Vaccine (1 - 1-d ose 60+ series) RSV Vaccine (1 - 1-dose 60+ series) [facility] Comment on above: Postponed from 05/22 (Declined at this time) Start: 07-04-2024 Annual PCP Team Escort Patients babar Disease Visit Annual PCP Team Chronic Disease Visit [facility] Start: 07-02-2024 Fecal Occult Blood Fecal Occult Bloo d [facility] Start: 07-02-2024 Screening for malign ant neoplasm of colon Fecal Occult Blood [facility] Start: 07-01-2024 Creatinine measurement Serum Creatin ine [facility] Start: 07-01-2024 Serum Creatinine Serum Creatinine Cl [place] Start: 06-29-2024 Hemoglobin A1c measurement HbA1C [facility] Start: 06-28-2024 Annual PCP Team Escort Patients babar Disease Visit Annual PCP Team Chronic Disease Visit [facility] Start: 06-15-2024 Annual PCP Team Escort Patients babar Disease Visit Annual PCP Team Chronic Disease Visit [facility] Start: 06-13-2024 Annual PCP Team Escort Patients babar Disease Visit Annual PCP Team Chronic Disease Visit [facility] Start: 06-13-2024 BP Controlled (<130/80) BP Controlle d (<130/80) [facility] Start: 05-28-2024 End: 05-28-2024 Patient encounter procedure 05/28/2024 2:00 PM EDT Office Visit Neurology [address] [place] [address] Deepti Callahan APRN.MATERIAL LOADER [address] [place] [address] 3 month follow up Neurology Comment on above: 3 month follow up Start: 05-06-2024 Annual PCP Team Escort Patients babar Disease Visit Annual PCP Team Chronic Disease Visit [facility] Start: 05-06-2024 Serum Creatinine Serum Creatinine Cl [place] Start: 04-15-2024 Covid-19 Vaccine ( season) Covid-19 Vaccine ( season) [facility] Start: 04-15-2024 Covid-19 Vaccine ( season) Covid-19 Vaccine () [facility] Start: 04-15-2024 Influenza vaccination Influenza Vacc ine (#1) [facility] Start: 04-11-2024 ANNUAL PCP TEAM RESIDENTIAL PROGRAM WORKER BABAR DISEASE VISIT ANNUAL PCP TEAM CHRONIC DISEASE VISIT [facility] Start: 04-05-2024 End: 04-05-2024 ambulatory 04/05/2024 2:00 PM EDT [facility] [address] [place] [address] [facility] Draw Station Comment on above: [facility] Start: 04-03-2024 End: 04-03-2024 Patient encounter procedure 04/03/2024 12:45 PM EDT Office Visit Pulmonary Medicine [address] [place] [address] Yunier Owen MD [address] [place] [address] Discharged from [facility] 11/21/23 (reschedule from 02/07 w/ [place]) Pulmonary Medicine Comment on above: Discharged from [facility] 11/21/23 (reschedule from 02/07 w/ [place]) Start: 03-28-2024 End: 06-27-2024 Basic metabolic 2000 panel - Serum or Plasma BASIC METABOLIC PANEL Lab Routine Renal insufficiency Expected: 03/28/2024, Expires: 06/27/2024 [facility] Work Phone: Comment on above: Expected: 03/28/2024 , Expires: 06/27/2024 Start: 03-19-2024 End: 03-19-2024 Patient encounter procedure 03/19/2024 2:40 PM EDT Office Visit [facility] [place] [address] [facility] [place] [id number] Ysabel Edwards APRN.MATERIAL LOADER [address] [facility] [place] [address] 6 month follow up [facility] [place] Comment on above: 6 month follow up Start: 03-14-2024 ANNUAL PCP TEAM RESIDENTIAL PROGRAM WORKER BABAR DISEASE VISIT ANNUAL PCP TEAM CHRONIC DISEASE VISIT [facility] Start: 03-07-2024 End: 03-07-2024 Patient encounter procedure 03/07/2024 1:40 PM EDT Office Visit Family Medicine [place] [address] [facility] [place] [address] Ilir Hernández MD [address] [facility] [address] 6 month follow up Family [facility] Comment on above: 6 month follow up Start: 02-18-2024 ANNUAL PCP TEAM RESIDENTIAL PROGRAM WORKER BABAR DISEASE VISIT ANNUAL PCP TEAM CHRONIC DISEASE VISIT [facility] Start: 02-18-2024 Hepatitis B surface antibody level LDL CHOLESTEROL [facility] Start: 02-10-2024 Hepatitis B surface antibody level LDL CHOLESTEROL [facility] Start: 02-08-2024 End: 02-08-2024 Patient encounter procedure 02/08/2024 1:30 PM EDT Office Visit Pulmonary Medicine [address] [place], [place] [id number] Florida English PA-C [address] [place] [address] Discharged from [facility] 11/21/23 Pulmonary Medicine Comment on above: Discharged from [facility] 11/21/23 Start: 02-01-2024 Hepatitis B screening URINE ALBUMIN:CREATININE RATIO [facility] Start: 01-20-2024 ANNUAL PCP TEAM RESIDENTIAL PROGRAM WORKER BABAR DISEASE VISIT ANNUAL PCP TEAM CHRONIC DISEASE VISIT [facility] Start: 01-13-2024 BP CONTROLLED (<130/80) BP CONTROLLE D (<130/80) [facility] Start: 01-09-2024 Hemoglobin A1c measurement HbA1C [facility] Start: 12-23-2023 ANNUAL PCP TEAM RESIDENTIAL PROGRAM WORKER BABAR DISEASE VISIT ANNUAL PCP TEAM CHRONIC DISEASE VISIT [facility] Start: 12-18-2023 Colonoscopy COLONOSCOPY [facility] Start: 12-18-2023 COLORECTAL CANCER SCREENING COLORECTAL CANCER SCREENING [facility] Start: 12-18-2023 Screening for malign ant neoplasm of colon [facility] Start: 12-10-2023 FECAL OCCULT BLOOD FECAL OCCULT BLOO D [facility] Start: 12-08-2023 3 comp foot exam completed DIABETIC FOOT EXAM [facility] Start: 12-08-2023 ANNUAL PCP TEAM RESIDENTIAL PROGRAM WORKER BABAR DISEASE VISIT ANNUAL PCP TEAM CHRONIC DISEASE VISIT [facility] Start: 12-08-2023 Diabetic foot examination Diabetic F oot Exam [facility] Start: 12-08-2023 SERUM CREATININE SERUM CREATININE [facility] [place] Start: 12-03-2023 ANNUAL PCP TEAM RESIDENTIAL PROGRAM WORKER BABAR DISEASE VISIT ANNUAL PCP TEAM CHRONIC DISEASE VISIT [facility] Start: 12-03-2023 COVID-19 VACCINE (4 - Booster for Moderna series) COVID-19 VACCINE (4 - Booster for Moderna series) [facility] Comment on above: Postponed from 08/20 (Declined at this time) Start: 12-03-2023 COVID-19 VACCINE (4 - Moderna risk series) COVID-19 VACCINE (4 - Moderna risk series) [facility] Comment on above: Postponed from 08/20 (Declined at this time) Start: 12-03-2023 SHINGRIX VACCINE (1 of 2) ALVAREZ GRIX VACCINE (1 of 2) [facility] Comment on above: Postponed from 05/22 (Declined at this time) Start: 11-21-2023 Patient discharge [facility] Start: 11-21-2023 Care planning and pr oblem solving actions [facility] Start: 11-19-2023 Care regimes management [facility] Start: 11-19-2023 Notification of physician [facility] Start: 11-19-2023 [facility] Start: 11-19-2023 Care planning and pr oblem solving actions [facility] Start: 11-18-2023 End: 11-19-2023 [facility] Start: 11-18-2023 Care planning and pr oblem solving actions [facility] Start: 11-18-2023 Referral to service [facility] Start: 11-18-2023 Following clinical p athway protocol [facility] Start: 11-18-2023 Lab findings surveillance [facility] Start: 11-18-2023 Care regimes management [facility] Start: 11-18-2023 Notification of physician [facility] Start: 11-18-2023 Inhalation therapy procedure [facility] Start: 11-17-2023 Care regimes management [facility] Start: 11-17-2023 Notification of physician [facility] Start: 11-17-2023 Referral to service [facility] Start: 11-17-2023 Following clinical p athway protocol [facility] Start: 11-17-2023 Ambulation without limitation [facility] Start: 11-17-2023 Assessment of risk o f venous thromboembolism [facility] Start: 11-17-2023 Continuous pulse oximetry [facility] Start: 11-17-2023 Elevation of head of bed [facility] Start: 11-17-2023 Insertion of cathete r into peripheral vein [facility] Start: 11-17-2023 Measuring intake and output [facility] Start: 11-17-2023 Oxygen therapy [facility] Start: 11-17-2023 Patient education [facility] Start: 11-17-2023 Providing care accor ding to standard [facility] Start: 11-17-2023 Referral to occupati onal therapist [facility] Start: 11-17-2023 Referral to service [facility] Start: 11-17-2023 [facility] Start: 11-17-2023 Verification routine [facility] Start: 11-17-2023 Legionella pneumophi la Ag [Presence] in Urine [facility] Start: 11-17-2023 Streptococcus pneumo niae antigen assay [facility] Start: 11-17-2023 End: 11-17-2023 [facility] Start: 11-17-2023 Admission procedure [facility] Start: 11-17-2023 Dual pressure sponta neous ventilation support [facility] Start: 11-17-2023 Hospital admission, emergency, from emergency room, medical nature [facility] Start: 11-17-2023 Bacteria identified in Blood by Culture Blood Culture [facility] Start: 11-17-2023 Respiratory Panel (PCR) Respiratory Panel (PCR) [facility] Start: 11-17-2023 End: 11-17-2023 Blood culture [facility] Start: 10-13-2023 Patient discharge [facility] Start: 10-12-2023 Urine culture Urine Culture [facility] Start: 10-12-2023 [facility] Start: 10-11-2023 Provision of overbed trapeze [facility] Start: 10-11-2023 Ambulation therapy management [facility] Start: 10-11-2023 Assessment of risk o f venous thromboembolism [facility] Start: 10-11-2023 Catheterization of vein [facility] Start: 10-11-2023 Exercises [facility] Start: 10-11-2023 Following clinical p athway protocol [facility] Start: 10-11-2023 Measuring intake and output [facility] Start: 10-11-2023 Neurovascular assessment [facility] Start: 10-11-2023 Procedure discontinued [facility] Start: 10-11-2023 Provision of activit y privileges [facility] Start: 10-11-2023 Referral to occupati onal therapist [facility] Start: 10-11-2023 End: 10-11-2023 Referral to service [facility] Start: 10-11-2023 Vital signs measurements [facility] Start: 10-11-2023 Wound care [facility] Start: 10-11-2023 [facility] Start: 10-11-2023 Care regimes management [facility] Start: 10-11-2023 Notification of physician [facility] Start: 10-11-2023 [facility] Start: 10-11-2023 Oxygen therapy [facility] Start: 10-11-2023 Application of intermittent pneumatic compression device [facility] Start: 10-11-2023 Recommendation to co ntinue with treatment [facility] Start: 10-11-2023 Following clinical p athway protocol [facility] Start: 10-11-2023 Application of mecha nical traction on skin [facility] Start: 10-11-2023 Consultation [facility] Start: 10-11-2023 Admission procedure [facility] Start: 10-11-2023 Application of ice c ollar, cap or bag [facility] Start: 10-11-2023 Inhalation therapy procedure [facility] Start: 10-11-2023 [facility] Start: 10-04-2023 Mammography [facility] Start: 10-04-2023 Screening for malign ant neoplasm of breast Mammogram Screening [facility] Start: 09-26-2023 End: 08-27-2024 Ct thorax w/o contrast material [facility] Routine Lung nodules Expected: 09/26/2023, Expires: 08/27/2024 [facility] Work Phone: Comment on above: Expected: 09/26/2023 , Expires: 08/27/2024 Start: 08-15-2023 Advance Directive Discussion Advance Directive Discussion [facility] Start: 08-15-2023 Behavioral Health Screening Behavioral Health Screening [facility] Start: 07-16-2023 SERUM CREATININE SERUM CREATININE [facility] [place] Start: 07-09-2023 Covid-19 Vaccine (4 - Moderna risk series) Covid-19 Vaccine (4 - Moderna risk series) [facility] Start: 07-09-2023 Covid-19 Vaccine (2022- season) Covid-19 Vaccine ( season) [facility] Start: 07-04-2023 End: 10-03-2023 CBC W Auto Differential panel - Blood CBC + DIFF Lab Routine Bacterial pneumonia Expected: 07/04/2023, Expires: 10/03/2023 [facility] Work Phone: Comment on above: Expected: 07/04/2023 , Expires: 10/03/2023 Start: 06-30-2023 End: 09-29-2023 Basic metabolic 2000 panel - Serum or Plasma BASIC METABOLIC PNL Lab Routine Black stool SOB (shortness of breath) Expected: 06/30/2023, Expires: 09/29/2023 [facility] Work Phone: Comment on above: Expected: 06/30/2023 , Expires: 09/29/2023 Start: 06-30-2023 End: 09-29-2023 CBC panel - Blood by Automated count CBC Lab Routine Black stool SOB (shortness of breath) Expected: 06/30/2023, Expires: 09/29/2023 [facility] Work Phone: Comment on above: Expected: 06/30/2023 , Expires: 09/29/2023 Start: 06-30-2023 End: 09-29-2023 Natriuretic peptide.B prohormone N-Terminal [Mass/volume] in Serum or Plasma NT PRO BNP Lab Routine SOB (shortness of breath) Expected: 06/30/2023, Expires: 09/29/2023 [facility] Work Phone: Comment on above: Expected: 06/30/2023 , Expires: 09/29/2023 Start: 06-23-2023 ANNUAL PCP TEAM RESIDENTIAL PROGRAM WORKER BABAR DISEASE VISIT ANNUAL PCP TEAM CHRONIC DISEASE VISIT [facility] Start: 06-23-2023 Patient discharge [facility] Start: 06-23-2023 [facility] Start: 06-21-2023 Following clinical p athway protocol [facility] Start: 06-21-2023 Ambulation without limitation [facility] Start: 06-21-2023 Assessment of risk o f venous thromboembolism [facility] Start: 06-21-2023 Care regimes management [facility] Start: 06-21-2023 Insertion of cathete r into peripheral vein [facility] Start: 06-21-2023 Notification of physician [facility] Start: 06-21-2023 Oxygen therapy [facility] Start: 06-21-2023 Providing care accor ding to standard [facility] Start: 06-21-2023 Verification routine [facility] Start: 06-21-2023 Admission procedure [facility] Start: 06-21-2023 Brain natriuretic pe ptide measurement [facility] Start: 06-21-2023 Hospital admission, emergency, from emergency room, medical nature [facility] Start: 06-21-2023 End: 06-21-2023 [facility] Start: 06-21-2023 End: 06-21-2023 Blood culture [facility] Start: 06-21-2023 End: 09-20-2023 [facility] Lab Routine Chronic cough Expected: 06/21/2023, Expires: 09/20/2023 [facility] Work Phone: Comment on above: Expected: 06/21/2023 , Expires: 09/20/2023 Start: 06-21-2023 Bacteria identified in Blood by Culture Blood Culture [facility] Start: 06-21-2023 Bacteria identified in Urine by Culture Urine Culture [facility] Start: 06-21-2023 End: 09-20-2023 Eosinophils [#/volume] in Blood EOSINOPHIL ABS COUNT Lab Routine Chronic cough Expected: 06/21/2023, Expires: 09/20/2023 [facility] Work Phone: Comment on above: Expected: 06/21/2023 , Expires: 09/20/2023 Start: 06-21-2023 End: 09-20-2023 IgE [Units/volume] in Serum or Plasma IGE BLD Lab Routine Chronic cough Expected: 06/21/2023, Expires: 09/20/2023 [facility] Work Phone: Comment on above: Expected: 06/21/2023 , Expires: 09/20/2023 Start: 06-21-2023 Inhalation therapy procedure [facility] Start: 05-13-2023 ANNUAL PCP TEAM RESIDENTIAL PROGRAM WORKER BABAR DISEASE VISIT ANNUAL PCP TEAM CHRONIC DISEASE VISIT [facility] Start: 05-06-2023 ANNUAL PCP TEAM RESIDENTIAL PROGRAM WORKER BABAR DISEASE VISIT ANNUAL PCP TEAM CHRONIC DISEASE VISIT [facility] Start: 05-06-2023 End: 07-06-2023 Basic metabolic 2000 panel - Serum or Plasma [facility] Work Phone: Comment on above: Expected: 05/06/2023 , Expires: 07/06/2023 Start: 05-06-2023 End: 07-06-2023 Natriuretic peptide.B prohormone N-Terminal [Mass/volume] in Serum or Plasma [facility] Work Phone: Comment on above: Expected: 05/06/2023 , Expires: 07/06/2023 Start: 05-06-2023 End: 07-06-2023 Thyrotropin [Units/volume] in Serum or Plasma [facility] Work Phone: Comment on above: Expected: 05/06/2023 , Expires: 07/06/2023 Start: 05-03-2023 ANNUAL PCP TEAM RESIDENTIAL PROGRAM WORKER BABAR DISEASE VISIT ANNUAL PCP TEAM CHRONIC DISEASE VISIT [facility] Start: 05-03-2023 Hemoglobin A1c measurement HbA1C [facility] Start: 05-03-2023 Hemoglobin A1c/Hemoglobin.total in Blood HBA1C [facility] Start: 04-15-2023 Influenza vaccination [facility] Start: 04-06-2023 ANNUAL PCP TEAM RESIDENTIAL PROGRAM WORKER BABAR DISEASE VISIT ANNUAL PCP TEAM CHRONIC DISEASE VISIT [facility] Start: 02-17-2023 End: 04-19-2023 Thyrotropin [Units/volume] in Serum or Plasma [facility] Work Phone: Comment on above: Expected: 02/17/2023 , Expires: 04/19/2023 Start: 02-11-2023 Influenza vaccination INFLUENZA (#1) [facility] Comment on above: Postponed from 04/15 (Declined at this time) Start: 02-10-2023 End: 04-12-2023 Hepatic function 2000 panel - Serum or Plasma HEPATIC FUNCTION PNL Lab Routine Mixed hyperlipidemia Expected: 02/10/2023, Expires: 04/12/2023 [facility] Work Phone: Comment on above: Expected: 02/10/2023 , Expires: 04/12/2023 Start: 02-10-2023 End: 04-12-2023 Lipid 1996 panel - Serum or Plasma LIPID PANEL BASIC Lab Routine Mixed hyperlipidemia Expected: 02/10/2023, Expires: 04/12/2023 [facility] Work Phone: Comment on above: Expected: 02/10/2023 , Expires: 04/12/2023 Start: 01-27-2023 SHINGRIX VACCINE (2 of 2) ALVAREZ GRIX VACCINE (2 of 2) [facility] Start: 01-25-2023 End: 03-27-2023 ALBUMIN/CREAT RATIO RND UR ALBUMIN/CREAT RATIO RND UR Lab Routine 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, with long-term current use of insulin, unspecified laterality (HCC) Expected: 01/25/2023, Expires: 03/27/2023 [facility] Work Phone: Comment on above: Expected: 01/25/2023 , Expires: 03/27/2023 Start: 01-25-2023 End: 03-27-2023 Hemoglobin A1c in Blood HGB A1C Lab Routine 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, with long-term current use of insulin, unspecified laterality (HCC) Expected: 01/25/2023, Expires: 03/27/2023 [facility] Work Phone: Comment on above: Expected: 01/25/2023 , Expires: 03/27/2023 Start: 01-20-2023 Hemoglobin A1c/Hemoglobin.total in Blood HBA1C [facility] Start: 01-15-2023 Screening for osteoporosis Bone Dens ity Screening [facility] Start: 12-21-2022 End: 02-20-2023 Lipid 1996 panel - Serum or Plasma LIPID PANEL BASIC Lab Routine Primary hypertension Expected: 12/21/2022, Expires: 02/20/2023 [facility] Work Phone: Comment on above: Expected: 12/21/2022 , Expires: 02/20/2023 Start: 12-15-2022 Adult depression scr eening assessment DEPRESSION SCREENING [facility] Start: 12-15-2022 ANNUAL PCP TEAM RESIDENTIAL PROGRAM WORKER BABAR DISEASE VISIT ANNUAL PCP TEAM CHRONIC DISEASE VISIT [facility] Start: 12-07-2022 End: 02-06-2023 Basic metabolic 2000 panel - Serum or Plasma [facility] Work Phone: Comment on above: Expected: 12/07/2022 , Expires: 02/06/2023 Start: 10-19-2022 Glaucoma screening Dilated Retinal E xam [facility] Start: 10-19-2022 Hepatitis C antibody , confirmatory test DILATED RETINAL EXAM [facility] Start: 10-14-2022 Hemoglobin A1c/Hemoglobin.total in Blood HBA1C [facility] Start: 09-23-2022 Hepatitis B surface antibody level LDL CHOLESTEROL [facility] Start: 09-11-2022 ANNUAL PCP TEAM RESIDENTIAL PROGRAM WORKER BABAR DISEASE VISIT ANNUAL PCP TEAM CHRONIC DISEASE VISIT [facility] Start: 09-08-2022 Hepatitis B screening URINE ALBUMIN:CREATININE RATIO [facility] Start: 08-30-2022 End: 10-30-2022 25-hydroxyvitamin D3 [Mass/volume] in Serum or Plasma VITAMIN D 25 HYDROXY Lab Routine Vitamin D deficiency Expected: 08/30/2022, Expires: 10/30/2022 [facility] Work Phone: Comment on above: Expected: 08/30/2022 , Expires: 10/30/2022 Start: 08-15-2022 ADVANCE DIRECTIVE DISCUSSION ADVANCE DIRECTIVE DISCUSSION [facility] Start: 08-15-2022 DEPRESSION ASSESSMENT DEPRESSION ASS ESSMENT [facility] Start: 08-05-2022 End: 10-05-2022 25-hydroxyvitamin D3 [Mass/volume] in Serum or Plasma VITAMIN D 25 HYDROXY Lab Routine Vitamin D deficiency Expected: 08/05/2022, Expires: 10/05/2022 [facility] Work Phone: Comment on above: Expected: 08/05/2022 , Expires: 10/05/2022 Start: 06-23-2022 End: 08-23-2022 Basic metabolic 2000 panel - Serum or Plasma BASIC METABOLIC PNL Lab Routine 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, unspecified retinopathy severity, unspecified whether chcf insulin use (HCC) Expected: 06/23/2022, Expires: 08/23/2022 [facility] Work Phone: Comment on above: Expected: 06/23/2022 , Expires: 08/23/2022 Start: 06-23-2022 End: 08-23-2022 CBC W Auto Differential panel - Blood CBC + DIFF Lab Routine Inflammatory polyarthritis (HCC) Expected: 06/23/2022, Expires: 08/23/2022 [facility] Work Phone: Comment on above: Expected: 06/23/2022 , Expires: 08/23/2022 Start: 06-23-2022 End: 08-23-2022 Hemoglobin A1c in Blood HGB A1C Lab Routine 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, unspecified retinopathy severity, unspecified whether technician terminal and repeater insulin use (HCC) Expected: 06/23/2022, Expires: 08/23/2022 [facility] Work Phone: Comment on above: Expected: 06/23/2022 , Expires: 08/23/2022 Start: 06-23-2022 End: 08-23-2022 Thyrotropin [Units/volume] in Serum or Plasma TSH BLD Lab Routine Subclinical hypothyroidism Expected: 06/23/2022, Expires: 08/23/2022 [facility] Work Phone: Comment on above: Expected: 06/23/2022 , Expires: 08/23/2022 Start: 06-09-2022 Mammography MAMMOGRAM [facility] Start: 05-06-2022 End: 05-06-2023 OLLIE BY IFA SCREEN OLLIE BY IFA SCREEN Lab Routine Elevated sed rate Elevated C-reactive protein (CRP) Left elbow pain Expected: 05/06/2022, Expires: 05/06/2023 [facility] Work Phone: Comment on above: Expected: 05/06/2022 , Expires: 05/06/2023 Start: 05-06-2022 End: 05-06-2023 C reactive protein [Mass/volume] in Serum or Plasma C-REACTIVE PROTEIN (CRP) Lab Routine Elevated sed rate Elevated C-reactive protein (CRP) Left elbow pain Expected: 05/06/2022, Expires: 05/06/2023 [facility] Work Phone: Comment on above: Expected: 05/06/2022 , Expires: 05/06/2023 Start: 05-06-2022 End: 05-06-2023 Erythrocyte sedimentation rate SED RATE [facility]GR[facility] Lab Routine Elevated sed rate Elevated C-reactive protein (CRP) Left elbow pain Expected: 05/06/2022, Expires: 05/06/2023 [facility] Work Phone: Comment on above: Expected: 05/06/2022 , Expires: 05/06/2023 Start: 05-06-2022 End: 05-06-2023 Rheumatoid factor [Units/volume] in Serum or Plasma RHEUMATOID FACTOR BL Lab Routine Elevated C-reactive protein (CRP) Left elbow pain Expected: 05/06/2022, Expires: 05/06/2023 [facility] Work Phone: Comment on above: Expected: 05/06/2022 , Expires: 05/06/2023 Start: 05-06-2022 End: 07-06-2022 Urate [Mass/volume] in Serum or Plasma URIC ACID BLOOD Lab Routine Elevated sed rate Elevated C-reactive protein (CRP) Left elbow pain Expected: 05/06/2022, Expires: 07/06/2022 [facility] Work Phone: Comment on above: Expected: 05/06/2022 , Expires: 07/06/2022 Start: 05-02-2022 Arthrocentesis aspir &/inj interm jt/burs w/o us DRAIN/INJ JOINT/BURSA W/O US [facility] Work Phone: Start: 04-15-2022 Influenza vaccination [facility] Start: 04-06-2022 End: 06-06-2022 Comprehensive metabolic 2000 panel - Serum or Plasma [facility] Work Phone: Comment on above: Expected: 04/06/2022 , Expires: 06/06/2022 Start: 03-24-2022 Radiologic examinati on of knee Knee 4 or More Views [facility] Work Phone: Start: 03-24-2022 XR Knee GE 4 Views [facility] Work Phone: Start: 03-11-2022 Hemoglobin A1c/Hemoglobin.total in Blood HBA1C [facility] Start: 03-06-2022 3 comp foot exam completed DIABETIC FOOT EXAM [facility] Start: 02-11-2022 Colonoscopy w/biopsy single/multiple COLONOSCOPY AND BIOPSY [facility] Work Phone: Start: 02-11-2022 Colsc flx w/rmvl of tumor polyp lesion snare tq COLONOSCOPY W/LESION REMOVAL [facility] Work Phone: Start: 02-11-2022 Egd transoral biopsy single/multiple EGD BIOPSY SINGLE/MULTIPLE [facility] Work Phone: Start: 02-11-2022 Patient discharge [facility] Work Phone: Start: 12-29-2021 FECAL OCCULT BLOOD FECAL OCCULT BLOO D [facility] Start: 12-10-2021 End: 02-09-2022 Hemoglobin A1c/Hemoglobin.total in Blood [facility] Work Phone: Comment on above: Expected: 12/10/2021 , Expires: 02/09/2022 Start: 12-10-2021 End: 02-09-2022 Thyrotropin [Units/volume] in Serum or Plasma [facility] Work Phone: Comment on above: Expected: 12/10/2021 , Expires: 02/09/2022 Start: 12-07-2021 Hemoglobin A1c/Hemoglobin.total in Blood HBA1C [facility] Start: 09-25-2021 COVID-19 VACCINE (4 - Booster for Moderna series) COVID-19 VACCINE (4 - Booster for Moderna series) [facility] Start: 09-17-2021 COVID-19 VACCINE (4 - Booster for Moderna series) COVID-19 VACCINE (4 - Booster for Moderna series) [facility] Start: 08-20-2021 COVID-19 VACCINE (4 - Booster for Moderna series) COVID-19 VACCINE (4 - Booster for Moderna series) [facility] Start: 08-15-2021 ADVANCE DIRECTIVE DISCUSSION ADVANCE DIRECTIVE DISCUSSION [facility] Start: 08-15-2021 DEPRESSION ASSESSMENT DEPRESSION ASS ESSMENT [facility] Start: 09-05-2020 Adult depression scr eening assessment DEPRESSION SCREENING [facility] Start: 2012 Hepatitis B Vaccine (1 of 3 - Risk 3-dose series) Hepatitis B Vaccine (1 of 3 - Risk 3-dose series) [facility] Start: 2012 RSV Vaccine (1 - 1-d ose 60+ series) RSV Vaccine (1 - 1-dose 60+ series) [facility] Start: 2002 SHINGRIX VACCINE (1 of 2) ALVAREZ GRIX VACCINE (1 of 2) [facility] Start: 1997 COLOGUARD (FIT-DNA) COLOGUARD (FIT-D NA) [facility] Start: [address] COLONOGRAPHY [facility] Start: 1997 Screening for malign ant neoplasm of colon [facility] Start: 1997 SIGMOIDOSCOPY SIGMOIDOSCOPY [facility] Start: 1982 Zoledronic acid therapy Alpha- 1 Antitrypsin Deficiency Screening [facility] Start: 1971 SHINGRIX VACCINE (1 of 2) ALVAREZ GRIX VACCINE (1 of 2) [facility] Start: 1970 Anxiety Screening Anxiety Screening [facility] Start: 1970 BP CONTROLLED (<130/80) BP CONTROLLE D (<130/80) [facility] Start: 1970 Depression Screening Depression Scre ening [facility] Anaerobic Culture Anaerobic Culture [facility] Work Phone: Bacteria identified in Body fluid by Culture [facility] Work Phone: Bacteria identified in Unspecified specimen by Anaerobe culture [facility] Work Phone: Bacteria identified in Urine by Culture URINE CULTURE Microbiology Routine Urinary frequency 02/17/2023 12:02 PM T [facility] Work Phone: Bacteria identified in Urine by Culture URINE CULTURE Microbiology Routine Left flank pain Acute cystitis without hematuria 06/15/2023 10:46 AM EDT [facility] Work Phone: Bacteria identified in Urine by Culture URINE CULTURE Microbiology Routine Leukocytosis, unspecified type 07/04/2023 12:11 PM EST [facility] Work Phone: Bacteria identified in Urine by Culture URINE CULTURE Microbiology Routine Retention of urine 11/07/2023 12:33 PM T [facility] Work Phone: Bacteria identified in Urine by Culture URINE CULTURE Microbiology Routine UTI symptoms 01/03/2024 2:21 PM EDT [facility] Work Phone: Bacteria identified in Urine by Culture BACTERIAL CULTURE, URINE Microbiology Routine Urinary frequency 02/20/2025 1:38 PM EDT [facility] Work Phone: End: 09-15-2025 BD DXA TRABECULAR BONE SCORE (TBS) BD DXA TRABECULAR BONE SCORE (TBS) Radiology Routine Senile osteoporosis 1 Occurrences starting 08/16/2024 until 09/15/2025 [facility] Comment on above: 1 Occurrences starti ng 08/16/2024 until 09/15/2025 Body Fluid Culture Body Fluid Culture [facility] Work Phone: CT Chest WO contrast CT CHEST WO IVCON Radiology Routine Lung nodules 02/19/2025 1:30 PM EDT [facility] Work Phone: End: 05-05-2024 Ct thorax w/o contrast material CT CHEST WO IVCON Radiology Routine Lung nodules 1 Occurrences starting 04/06/2023 until 05/05/2024 [facility] Work Phone: Comment on above: 1 Occurrences starti ng 04/06/2023 until 05/05/2024 DBT Breast - bilater al screening JACQUELYN SCREENING W CHANELLE Radiology Routine Encounter for gynecological examination (general) (routine) without abnormal findings Encounter for screening mammogram for breast cancer 10/05/2023 1:32 PM EST [facility] Work Phone: End: 09-15-2025 DXA Skeletal system.axial Views for bone density DXA-AXIAL SKELETON Radiology Routine Senile osteoporosis 1 Occurrences starting 08/16/2024 until 09/15/2025 [facility] Work Phone: Comment on above: 1 Occurrences starti ng 08/16/2024 until 09/15/2025 End: 05-06-2024 Echocardiography ECHO Cardiology Routine SOB (shortness of breath) Chronic cough 1 Occurrences starting 05/06/2023 until 05/06/2024 [facility] Work Phone: Comment on above: 1 Occurrences starti ng 05/06/2023 until 05/06/2024 Hemoglobin.gastroint estina l.lower [Presence] in Stool by Immunoassay FECAL OCCULT BLOOD TEST Lab Routine Red stool Ordered: 12/07/2022 [facility] Work Phone: Comment on above: Ordered: 12/07/2022 Hemoglobin.gastroint estina l.lower [Presence] in Stool by Immunoassay FECAL OCCULT BLOOD TEST Lab Routine Diarrhea, unspecified type Black stool Ordered: 06/30/2023 [facility] Work Phone: Comment on above: Ordered: 06/30/2023 Lipid 1996 panel - S benigno or Plasma [facility] End: 06-04-2024 LUNG DIFFUSION CAPACITY (DLCO) LUNG DIFFUSION CAPACITY (DLCO) PFT Routine SOB (shortness of breath) Chronic cough 1 Occurrences starting 05/06/2023 until 06/04/2024 [facility] Work Phone: Comment on above: 1 Occurrences starti ng 05/06/2023 until 06/04/2024 End: 07-23-2023 JACQUELYN SCREENING W CHANELLE JACQUELYN SCREENING W [facility]ANELLE Radiology Routine Screening breast examination Encounter for screening mammogram for malignant neoplasm of breast 1 Occurrences starting 06/23/2022 until 07/23/2023 [facility] Work Phone: Comment on above: 1 Occurrences starti ng 06/23/2022 until 07/23/2023 End: 07-20-2024 METHACHOLINE CHALLENGE METHACHOLINE CHALLENGE PFT Routine Chronic cough 1 Occurrences starting 06/21/2023 until 07/20/2024 [facility] Work Phone: Comment on above: 1 Occurrences starti ng 06/21/2023 until 07/20/2024 End: 11-08-2025 MG Breast - right Diagnostic for implant JACQUELYN DIAGNOSTIC RIGHT Radiology Routine Abnormal mammogram 1 Occurrences starting 10/09/2024 until 11/08/2025 [facility] Work Phone: Comment on above: 1 Occurrences starti ng 10/09/2024 until 11/08/2025 MG Breast Screening JACQUELYN SCREENIN G Radiology Routine Encounter for screening mammogram for malignant neoplasm of breast 10/08/2024 1:56 PM EST [facility] Work Phone: OXIMETRY - NOCTURNAL OXIMETRY - NOCTURNAL Procedures Routine Sleep related hypoxia Ordered: 09/19/2023 [facility] Work Phone: Comment on above: Ordered: 09/19/2023 OXIMETRY - NOCTURNAL OXIMETRY - NOCTURNAL Procedures Routine RICARDO (obstructive sleep apnea) Nocturnal hypoxemia Ordered: 02/20/2024 [facility] Work Phone: Comment on above: Ordered: 02/20/2024 End: 03-01-2024 PAP TITRATION PSG (CPAP, BIPAP, ASV) PAP TITRATION PSG (CPAP, BIPAP, ASV) Procedures Routine Obstructive sleep apnea (adult) (pediatric) Sleep related hypoxia 1 Occurrences starting 01/31/2023 until 03/01/2024 [facility] Work Phone: Comment on above: 1 Occurrences starti ng 01/31/2023 until 03/01/2024 Patient Education [facility] Work Phone: Patient referral [facility] Work Phone: End: 06-04-2024 Radiologic exam chest 2 views XR CHEST 2V FRONTAL/LAT Radiology Routine SOB (shortness of breath) Chronic cough 1 Occurrences starting 05/06/2023 until 06/04/2024 [facility] Work Phone: Comment on above: 1 Occurrences starti ng 05/06/2023 until 06/04/2024 End: 07-27-2024 Radiologic exam chest 2 views XR CHEST 2V FRONTAL/LAT Radiology Routine Bacterial pneumonia 1 Occurrences starting 06/28/2023 until 07/27/2024 [facility] Work Phone: Comment on above: 1 Occurrences starti ng 06/28/2023 until 07/27/2024 End: 08-02-2024 Radiologic exam chest 2 views XR CHEST 2V FRONTAL/LAT Radiology Routine Bacterial pneumonia 1 Occurrences starting 07/04/2023 until 08/02/2024 [facility] Work Phone: Comment on above: 1 Occurrences starti ng 07/04/2023 until 08/02/2024 Radiologic exam ches t 2 views XR CHEST 2V FRONTAL/LAT Radiology Routine Bacterial pneumonia 07/26/2023 3:52 PM EST [facility] Work Phone: Respiratory pathogen s DNA and RNA panel - Respiratory specimen by QUAN with probe detection [facility] End: 06-04-2024 SPIROMETRY WITH DILATOR IF OBSTRUCTED SPIROMETRY WITH DILATOR IF OBSTRUCTED PFT Routine SOB (shortness of breath) Chronic cough 1 Occurrences starting 05/06/2023 until 06/04/2024 [facility] Work Phone: Comment on above: 1 Occurrences starti ng 05/06/2023 until 06/04/2024 Urinalysis complete panel - Urine URINALYSIS, WITH MICROSCOPIC Lab Routine Urinary frequency 02/17/2023 12:02 PM EDT [facility] Work Phone: Urinalysis complete panel - Urine URINALYSIS, WITH MICROSCOPIC Lab Routine Left flank pain Acute cystitis without hematuria 06/15/2023 10:46 AM EDT [facility] Work Phone: End: 11-08-2025 US Breast - right limited US BREAST LTD RIGHT Radiology Routine Abnormal mammogram 1 Occurrences starting 10/09/2024 until 11/08/2025 [facility] Comment on above: 1 Occurrences starti ng 10/09/2024 until 11/08/2025 End: 06-04-2024 US DVT LOWER BILATERAL US DVT LOWER BILATERAL Radiology STAT Localized edema 1 Occurrences starting 05/06/2023 until 06/04/2024 [facility] Work Phone: Comment on above: 1 Occurrences starti ng 05/06/2023 until 06/04/2024 End: 07-14-2024 US KIDNEY/BLADDER US KIDNEY/BLADDER Radiology STAT Left flank pain 1 Occurrences starting 06/15/2023 until 07/14/2024 [facility] Work Phone: Comment on above: 1 Occurrences starti ng 06/15/2023 until 07/14/2024 Vitamin D, 25-hydrox y measurement [facility] Immunizations Immunization Date Immunization Notes Care Provider [facility] 06-29-2024 influenza, high dose seasonal, preservative-free Ilir Hernández MD Work Phone: [facility] 06-29-2024 influenza virus vaccine, unspecified formulation Aliyah Holt 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 Work Phone: [facility] 09-16-2023 respiratory syncytia l virus (RSV) vaccine, bivalent (ABRYSVO) Ilir Hernández MD Work Phone: [facility] Work Phone: 05-14-2023 COVID-19 vaccine, ag e 12+ yr, season ([employer]) Immunization [place] Work Phone: [facility] Work Phone: 05-14-2023 influenza (HD-IIV4) vaccine, age 65+ yr, high dose, quadrivalent, PF (FLUZONE HIGH-DOSE) Immunization [place] Work Phone: [facility] 05-14-2023 influenza virus vaccine, unspecified formulation Deepti Callahan 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 Work Phone: [facility] 12-02-2022 TD(adult) unspecifie d formulation Ilir Hernández MD Work Phone: [facility] 12-02-2022 tetanus toxoid, redu jennifer diphtheria toxoid, and acellular pertussis vaccine, adsorbed Ilir Hernández MD Work Phone: [facility] 12-02-2022 zoster vaccine recombinant Ilir Hernández MD Work Phone: [facility] 06-25-2021 COVID-19 original vaccine, full dose, monovalent (MODERNA) Ilir Hernández MD Work Phone: [facility] 12-11-2020 COVID-19 vaccine, ag e 12+ yr ([employer] COMIRNATY) Ilir Hernández MD Work Phone: [facility] 12-11-2020 COVID-19 vaccine, fu ll dose (MODERNA) Ilir Hernández MD Work Phone: [facility] 11-13-2020 COVID-19 vaccine, ag e 12+ yr ([employer] COMIRNATY) Ilir Hernández MD Work Phone: [facility] 11-13-2020 COVID-19 vaccine, fu ll dose (MODERNA) Ilir Hernández MD Work Phone: [facility] 08-10-2019 pneumococcal polysaccharide vaccine, 23 valent Ilir Hernández MD Work Phone: [facility] 06-21-2019 Influenza, high dose seasonal Dr. Ilir Hernández MD Work Phone: [facility] 06-21-2019 influenza, high dose seasonal, preservative-free Ilir Hernández MD Work Phone: [facility] Work Phone: 06-21-2019 influenza virus vaccine, unspecified formulation Alfie Leiva PT [facility] 06-18-2018 influenza, injectabl e, quadrivalent, contains preservative Ilir Hernández MD Work Phone: [facility] 06-18-2018 influenza, injectabl e, quadrivalent, preservative free Dr. Ilir Hernández Work Phone: [facility] 01-10-2018 pneumococcal conjuga te vaccine, 13 valent Ilir Hernández MD Work Phone: [facility] Work Phone: 07-24-2017 influenza, injectabl e, quadrivalent, preservative free Dr. Ilir Hernández Work Phone: [facility] 07-24-2017 influenza, seasonal, injectable Ilir Hernández MD Work Phone: [facility] 06-30-2017 TD(adult) unspecifie d formulation Ilir Hernández MD Work Phone: [facility] 06-30-2017 tetanus toxoid, redu jennifer diphtheria toxoid, and acellular pertussis vaccine, adsorbed Ilir Hernández MD Work Phone: [facility] 05-11-2017 influenza, injectabl e, quadrivalent, preservative free Dr. Ilir Hernández Work Phone: [facility] 05-11-2017 influenza, seasonal, injectable Dr. Ilir Hernández Work Phone: [facility] 05-11-2017 Seasonal, quadrivale nt, recombinant, injectable influenza vaccine, preservative free Dr. Ilir Hernández Work Phone: [facility] 05-06-2017 pneumococcal polysaccharide vaccine, 23 valent Ilir Hernández MD Work Phone: [facility] 05-06-[address] Kevin Hernández Work Phone: [facility] Work Phone: 05-06-2017 pneumococcal vaccine , unspecified formulation Dr. Ilir Hernández Work Phone: [facility] 05-29-2015 influenza, injectabl e, quadrivalent, preservative free Dr. Ilir Hernández Work Phone: [facility] 05-29-2015 influenza, seasonal, injectable Ilir Hernández MD Work Phone: [facility] 05-29-2014 influenza, injectabl e, quadrivalent, preservative free Dr. Ilir Hernández Work Phone: [facility] 05-29-2014 influenza, seasonal, injectable Ilir Hernández MD Work Phone: [facility] 05-29-2013 influenza virus vaccine, unspecified formulation Ilir Hernández MD Work Phone: [facility] 07-21-2012 tuberculin skin test ; purified protein derivative solution, intradermal Yunier Owen MD Work Phone: [facility] 07-03-2012 tuberculin skin test ; purified protein derivative solution, intradermal Yunier Owen MD Work Phone: [facility] Work Phone: 06-02-2012 influenza virus vaccine, unspecified formulation Ilir Hernández MD Work Phone: [facility] 03-21-2008 pneumococcal polysaccharide vaccine, 23 valent Ilir Hernández MD Work Phone: [facility] 09-19-2006 tetanus toxoid, redu jennifer diphtheria toxoid, and acellular pertussis vaccine, adsorbed Ilir Hernández MD Work Phone: [facility] Work Phone: 05-17-2003 pneumococcal polysaccharide vaccine, 23 valent Ilir Hernández MD Work Phone: [facility] Work Phone: 11-29-1980 diphtheria and tetan us toxoids, adsorbed for pediatric use Ilir Hernández MD Work Phone: [facility] Work Phone: Payers Date Payer Category Payer Medicare [id number] 2025 Medicare [id number] 2024 Self-pay [id number] 2022 Medicare (Managed Care) [id number]. [id number] 2022 Unknown [id number] 2019 Unknown MMO MMO [employer] PLUS [id number] 2019-Present [phone] [address] [place] [address] PPO [id number] 2017 Unknown 2017 Unknown GPM LIFE GPM LIF E SUPPLEMENT [id number] 2017-Present [phone] [address] [place] [address] Indemnity [id number] 2017 Medicare MEDICARE MEDICAR E A AND B [id number] 2017-Present [phone] [address] [address] [place] [address] Medicare [id number] 2017 Medicare [id number] 2012 Unknown [id number] 1950 Unknown [id number] Medicare [id number] Unknown [id number] Unknown [id number] Unknown [id number] Unknown [id number] 462 Unknown [id number] 462 Unknown [id number] 462 Unknown [id number] 462 Unknown [id number] 462 Unknown [id number] 462 Unknown [id number] 462 Unknown [id number] 462 Unknown [id number] 462 Unknown [id number] 462 Unknown [id number] 462 Unknown [id number] 462 Social History Date Type Detail Facility Start: 08-22-2013 End: 04-03-2024 Tobacco smoking status NEIS Ex-smoker [facility] Start: 08-15-1970 End: 08-15-2000 History of tobacco use Current smoker [facility] Start: 08-15-1970 End: 08-15-2000 History of tobacco use Cigarette Smoker [facility] Start: 09-23-2021 End: 04-01-2025 Alcohol intake Lifetime non-drinker (finding) [facility] Start: 03-24-2020 History SDOH Alcohol Frequency 1 [facility] Start: 1950 Sex Assigned At Not on file [facility] Start: 11-23-2021 End: 11-17-2023 Tobacco smoking status [facility] Unknown if ever smoked [facility] Start: 2017 None [facility] Start: 2017 Alone [facility] Start: 03-10-2021 Non-smoker [facility] Start: 1950 Sex Assigned At Female [facility] Start: 04-26-2020 End: 06-23-2022 Exposure to SARS-CoV-2 (event) Not sure [facility] Work Phone: Start: 08-22-2013 End: 12-20-2022 Cigarettes smoked current (pack per day) - Reported 0.8 [facility] Work Phone: Start: 08-22-2013 End: 04-03-2024 Tobacco use and exposure Smokeless tobacco non-user [facility] Start: 04-06-2022 End: 04-16-2022 Exposure to SARS-CoV-2 (event) Unable to assess [facility] Work Phone: Start: 12-20-2022 End: 02-17-2023 Tobacco use panel [facility] Work Phone: Start: 07-16-2012 Adult Depression Screening Assessment 0 [facility] Work Phone: How often to you hav e a drink containing alcohol? Never [facility] Work Phone: Start: 08-02-2023 Education 14 [facility] NEGATED: Highlighted rowStart: NINF History of tobacco use Passive smoker [facility] NEGATED: Highlighted row [facility] Medical Equipment Procedure Code Equipment Code Equipment Original Text Equipment Identifier Dates Total cholecystectomy with exploration of common bile duct Open-surgery ligation clip gizzard puller [id number] FDA Start: 12-28-2023 ORIF, hip, using Gamma nail ([id number]) ()[id number] FDA Start: 10-11-2023 ORIF, hip, using Gamma nail ([id number]) ()[id number] FDA Start: 10-11-2023 ORIF, hip, using Gamma nail ([id number]) ()[id number] FDA Start: 10-11-2023 ERCP (endoscopic retrograde cholangiopancreatograp hy) ([id number]) Polymeric biliary stent, non-bioabsorbable ()[id number] FDA Start: 12-28-2023 ERCP (endoscopic retrograde cholangiopancreatograp hy) Polymeric pancreatic stent, non-bioabsorbable ()[id number] [facility] Start: 12-28-2023 [id number], [id number], [id number], [id number], [id number], [id number] Start: 09-22-2015 End: 08-16-2024 Comment on above: Test blood sugar(s) 3 times daily. Dx: Type 2 DM - Controlled E11.9 Insulin: YES Use one needle per d ose. 4 per day. Test blood sugar(s) 3-4 times daily. Dx: Other DM Code E11.319 Insulin: Yes Test blood sugar(s) 4 times daily. Dx: Type 2 DM - Uncontrolled E11.65 Insulin: Yes Test blood sugar(s) 3 times daily. Dx: Type 2 DM - Uncontrolled E11.65 Insulin: Yes Pen Needle, Diabetic (Bd Ultra-Fine Tish Pen Needle) 32 gauge x 5/32 needle Start: 11-26-2022 Pen Needle, Diabetic (Bd Ultra-Fine Tish Pen Needle) 32 gauge x 5/32 needle Start: 11-26-2022 Pen Needle, Diabetic (Bd Ultra-Fine Tish Pen Needle) 32 gauge x 5/32 needle Start: 11-26-2022 Pen Needle, Diabetic (Bd Ultra-Fine Tish Pen Needle) 32 gauge x 5/32 needle Start: 11-26-2022 Pen Needle, Diabetic (Bd Ultra-Fine Tish Pen Needle) 32 gauge x 5/32 needle Start: 11-26-2022 Pen Needle, Diabetic (Bd Ultra-Fine Tish Pen Needle) 32 gauge x 5/32 needle Start: 11-26-2022 Pen Needle, Diabetic (Bd Ultra-Fine Tish Pen Needle) 32 gauge x 5/32 needle Start: 11-26-2022 Pen Needle, Diabetic (Bd Ultra-Fine Tish Pen Needle) 32 gauge x 5/32 needle Start: 11-26-2022 Blood Sugar Diagnostic (Onetouch Verio Test Strips) strip Start: 11-15-2023 Pen Needle, Diabetic (Bd Ultra-Fine Tish Pen Needle) 32 gauge x 5/32 needle Start: 11-26-2022 Blood Sugar Diagnostic (Onetouch Verio Test Strips) strip Start: 11-14-2024 Pen Needle, Diabetic (Bd Ultra-Fine Tish Pen Needle) 32 gauge x 5/32 needle Start: 11-26-2022 Blood Sugar Diagnostic (Onetouch Verio Test Strips) strip Start: 11-15-2023 End: 11-14-2024 Blood Sugar Diagnostic (Onetouch Verio Test Strips) strip Start: 11-14-2024 Pen Needle, Diabetic (Bd Ultra-Fine Tish Pen Needle) 32 gauge x 5/32 needle Start: 11-26-2022 Blood Sugar Diagnostic (Onetouch Verio Test Strips) strip Start: 11-15-2023 End: 11-14-2024 Blood Sugar Diagnostic (Onetouch Verio Test Strips) strip Start: 11-14-2024 Pen Needle, Diabetic (Bd Ultra-Fine Tish Pen Needle) 32 gauge x 5/32 needle Start: 11-26-2022 Blood Sugar Diagnostic (Onetouch Verio Test Strips) strip Start: 11-15-2023 End: 11-14-2024 Goals Date Patient Goal Desired Activity /State Functional Status Date Assessment Result Facility 11-21-2023 Functional status Chair [facility] Work Phone: 11-21-2023 Functional status Standby Assist [facility] Work Phone: 11-20-2023 Functional status None [facility] Work Phone: 10-13-2023 Functional status Ambulates;Bath room Privilege [facility] Work Phone: 10-12-2023 Functional status Well [facility] Work Phone: 06-23-2023 Functional status Activity Abili ty Standby Assist [facility] Work Phone: 06-23-2023 Functional status Ambulates [facility] Work Phone: 01-01-2015 Are you deaf, or do you have serious difficulty hearing No 01/01/2015 9:07 AM Claire Lebron LPN No [facility] 01-01-2015 Are you blind, or do you have serious difficulty seeing, even when wearing glasses No 01/01/2015 9:07 AM Claire Lebron LPN No [facility] 01-01-2015 Do you have serious difficulty walking or climbing stairs No 01/01/2015 9:07 AM Claire Lebron LPN No [facility] 01-01-2015 Do you have difficul ty dressing or bathing No 01/01/2015 9:07 AM Claire Lebron LPN [facility] 01-01-2015 Because of a physica l, mental, or emotional condition, do you have difficulty doing errands alone such as visiting a physician's office or shopping No 01/01/2015 9:07 AM Claire Lebron LPN [facility] Mental Status Date Assessment Result Facility 10-03-2024 Cognitive function Awake;Alert;A ppropriate;Fo coretta [facility] Work Phone: 11-21-2023 Cognitive function Voice/Name;Touch/Shaki ng [facility] Work Phone: 10-13-2023 Cognitive function Voice/Name [facility] Work Phone: 06-23-2023 Cognitive function Voice/Name [facility] Work Phone: 12-04-2022 Cognitive function Level Of Cons ciousness Awake;Alert;Appropriate;Fo [facility] Work Phone: 02-11-2022 Cognitive function Voice/Name [facility] Work Phone: 01-01-2015 Because of a physica l, mental, or emotional condition, do you have serious difficulty concentrating, remembering, or making decisions No 01/01/2015 9:07 AM Claire Lebron LPN [facility] Clinical Notes 07-04-2009 to 04-11-2025 Telephone Encounter - Mari Valdivia LPN - 04/11/2025 3:38 PM EDTTelephone Encounter - Mari Valdivia LPN - 04/11/2025 3:38 PM EDTPatient InstructionsPatient InstructionsPatient Instructions Note Date & Type Note Facility 04-11-2025 Telephone encounter Note Labs are ok. Ilir Hernández MD Patient calling to ask for her lab results. Went over results from Dr Hernández with understanding. [facility] 04-11-2025 Miscellaneous Notes Labs are ok. Ilir Hernández MD Patient calling to ask for her lab results. Went over results from Dr Hernández with understanding. documented in this encounter [facility] 04-01-2025 Instructions Ilir Hernández MD - 04/01/2025 3:04 PM EDT - group care worker refills for Lipitor, Zyrtec, vitamin D, escitalopram (Lexapro), Flonase, hydrochlorothiazide, losartan, and metoprolol and take each exactly as prescribed. - Continue methotrexate as directed by your research instructor and contact rheumatology to arrange refills. - Schedule a repeat colonoscopy with Dr. Olivas within the next year due to poor bowel prep at your last exam. - Schedule a Pap test at the [facility] for your routine cervical cancer screening. - Have blood drawn for a complete blood count (CBC), comprehensive metabolic panel (CMP), and vitamin D level as ordered. documented in this encounter [facility] 04-01-2025 Note HNO ID: [id number] Author: ILIR HERNÁNDEZ MD Service: ? Author Type: Physician Type: Progress Notes Filed: 04/01/2025 16:21 Note Text: Manisha Keith is a 74 year old female here for a Medicare wellness visit. Medicare Health Risk Assessment General Health Fair Exercise: Minutes/Day no Exercise: Days/Week no Alcohol: Daily Use no Alcohol: Drinks/Day no Alcohol: 6 or more drinks no Feel off balance Worse since hip fracture. Concerns: Teeth/Dentures Implants and dentures-not doing well Concerns: Sexual function none Troubled by feelings none Frequency: Eating healthy diet Eating well ADLs requiring help yes Safety precautions in home/vehicle yes Smoke, vape, chews tobacco no Difficulty hearing no Difficulty seeing Has retinopathy. Current Providers Specialists: I have reviewed specialist-related care of the patient in the medical record. Current care team: Patient Care Team: Ilir Hernández MD as PCP - General (Family Medicine) Bernadette Valerio RPh as Pharmacist (Pharmacy) Ysabel Edwards APRN.MATERIAL LOADER as Maintenance Planning Clerk (Family Medicine) Claire Lancaster APRN.CHRISTA as Maintenance Planning Clerk (Family Medicine) [facility]-optho. Will be seeing retinal specialist. Dr Zarate-optho Dr Owen, pulm [facility]-cardiology Dr Johnson-Rheumatology. Dr. Hawk, podiatry. ene Fonseca, sleep med. Medical/Family history review Reviewed and updated problem list, medical/surgical/family/social history, medications, and allergies. Opioid use review Opioid Medications (last 90 days) No data to display Anxiety/Depression screening Being treated. Recommendation: no further intervention at this time Cognitive screening Mini Cog Score: 5 Cognitive screening reviewed and No further action needed (score 3-5). Functional Observation Was the patient's Timed Up AND Go test unsteady or >= 12 seconds? No Advance Care Planning Patient did not wish or was not able to name a surrogate decision maker or provide an advance care plan Measurements BP 110/60 Pulse 95 Ht 157 cm (5' 1.81) Wt 89.7 kg (197 lb 12.8 oz) SpO2 95% BMI 36.40 kg/m? Vision Screening: Follows with optometry/ophthalmology ADDITIONAL INFO: Annual Wellness Exam: - General health described as fair. - Denies alcohol, tobacco, or marijuana use. - No regular exercise. - Diet described as healthy, but reports overeating. - No issues with hearing. - Uses seatbelts, has adequate lighting and handrails at home. - No medical living will. - No recent Pap test this year; history of cervical and breast cancer. - Last colonoscopy in 2020; had both endoscopy and colonoscopy on the same day. - Denies chest pain, edema, or palpitations. - No current neck pain or abdominal pain. - Denies lumps or bumps in the neck. - No known issues with thyroid function. - No known issues with kidney function; most recent GFR was 70. - Blood counts reported as normal. - Most recent lipid panel done in July. - Taking Lipitor, Zyrtec, vitamin D, Lexapro, Flonase, hydrochlorothiazide, losartan, metoprolol, and methotrexate. Vision Problems: - Recent diagnosis of retinopathy with a bleeding vessel. - Scheduled for laser surgery next week and again the following month. - Seen by Dr. Chu and Dr. Rocha at the [facility]. - Referred to a specialist, Dr. Zarate, for further treatment. Balance Issues: - Reports balance issues related to low blood sugar and a previous hip fracture. - Uses a cane occasionally. - No recent falls. Dental Issues: - Has a dental implant in the lower jaw and a denture in the upper jaw. - Reports poor fit of the dentures and issues with the implant coming out. Sexual Functioning: - Describes sexual functioning as non-existent. - Reports no interest in sexual activity. Depression: - Taking escitalopram; reports it is helping with mood. - Denies current feelings of depression or anxiety. - ; reports no significant emotional issues related to this. Sleep Apnea: - Previously used CPAP but discontinued due to discomfort. - Reports excessive sleepiness, stating she could sleep 20 hours a day. Osteoporosis: - Under the care of Dr. Tom. - Taking Reclast injections once a year. - Taking vitamin D2. Diabetes Mellitus: - Most recent A1c was 8.1. - Using a Mitzi 3 CGM. - Discontinued use of insulin pump. Asthma: - Reports occasional breathing difficulties related to asthma. Rheumatoid Arthritis: - Under the care of Dr. Johnson. - Taking methotrexate. Gastroparesis: - Previously seen by Dr. Olivas within the last year. - Reports horrible gas; using Gas-X for relief. Additional Specialist Care: - Seen by Dr. Owen for pulmonary issues. - Seen by Dr. Hawk for podiatry. - Seen by Dr. Johnson for rheumatology. - Seen by Dr. Tom for endocrinology. ROS: Consti (more content not included)... [facility] 04-01-2025 History of Presen t illness Narrative Images from the original note were not included. Manisha Keith is a 74 year old female here for a Medicare wellness visit. Medicare Health Risk Assessment General Health Fair Exercise: Minutes/Day no Exercise: Days/Week no Alcohol: Daily Use no Alcohol: Drinks/Day no Alcohol: 6 or more drinks no Feel off balance Worse since hip fracture. Concerns: Teeth/Dentures Implants and dentures-not doing well Concerns: Sexual function none Troubled by feelings none Frequency: Eating healthy diet Eating well ADLs requiring help yes Safety precautions in home/vehicle yes Smoke, vape, chews tobacco no Difficulty hearing no Difficulty seeing Has retinopathy. Current Providers Specialists: I have reviewed specialist-related care of the patient in the medical record. Current care team: Patient Care Team: Ilir Hernández MD as PCP - General (Family Medicine) Bernadette Valerio jp as Pharmacist (Pharmacy) Ysabel Edwards APRN.MATERIAL LOADER as Maintenance Planning Clerk (Family Medicine) Claire Lancaster APRN.MATERIAL LOADER as Maintenance Planning Clerk ([facility]) [facility]. Will be seeing retinal specialist. Dr Zarate-optho Dr Owen pulsuman [facility] group-cardiology Dr Johnson-Rheumatology. Dr. Hawk, podiatry. Dr Olivas, ene Callahan, sleep med. Medical/Family history review Reviewed and updated problem list, medical/surgical/family/social history, medications, and allergies. Opioid use review Opioid Medications (last 90 days) No data to display Anxiety/Depression screening Being treated. Recommendation: no further intervention at this time Cognitive screening Mini Cog Score: 5 Cognitive screening reviewed and No further action needed (score 3-5). Functional Observation Was the patient's Timed Up & Go test unsteady or >= 12 seconds? No Advance Care Planning Patient did not wish or was not able to name a surrogate decision maker or provide an advance care plan Measurements BP 110/60 Pulse 95 Ht 157 cm (5' 1.81) Wt 89.7 kg (197 lb 12.8 oz) SpO2 95% BMI 36.40 kg/m Vision Screening: Follows with optometry/ophthalmology ADDITIONAL INFO: Annual Wellness Exam: - General health described as fair. - Denies alcohol, tobacco, or marijuana use. - No regular exercise. - Diet described as healthy, but reports overeating. - No issues with hearing. - Uses seatbelts, has adequate lighting and handrails at home. - No medical living will. - No recent Pap test this year; history of cervical and breast cancer. - Last colonoscopy in 2020; had both endoscopy and colonoscopy on the same day. - Denies chest pain, edema, or palpitations. - No current neck pain or abdominal pain. - Denies lumps or bumps in the neck. - No known issues with thyroid function. - No known issues with kidney function; most recent GFR was 70. - Blood counts reported as normal. - Most recent lipid panel done in July. - Taking Lipitor, Zyrtec, vitamin D, Lexapro, Flonase, hydrochlorothiazide, losartan, metoprolol, and methotrexate. Vision Problems: - Recent diagnosis of retinopathy with a bleeding vessel. - Scheduled for laser surgery next week and again the following month. - Seen by Dr. Chu and Dr. Rocha at the [facility]. - Referred to a specialist, Dr. Zarate, for further treatment. Balance Issues: - Reports balance issues related to low blood sugar and a previous hip fracture. - Uses a cane occasionally. - No recent falls. Dental Issues: - Has a dental implant in the lower jaw and a denture in the upper jaw. - Reports poor fit of the dentures and issues with the implant coming out. Sexual Functioning: - Describes sexual functioning as non-existent. - Reports no interest in sexual activity. Depression: - Taking escitalopram; reports it is helping with mood. - Denies current feelings of depression or anxiety. - ; reports no significant emotional issues related to this. Sleep Apnea: - Previously used CPAP but discontinued due to discomfort. - Reports excessive sleepiness, stating she could sleep 20 hours a day. Osteoporosis: - Under the care of Dr. Tom. - Taking Reclast injections once a year. - Taking vitamin D2. Diabetes Mellitus: - Most recent A1c was 8.1. - Using a Mitzi 3 CGM. - Discontinued use of insulin pump. Asthma: - Reports occasional breathing difficulties related to asthma. Rheumatoid Arthritis: - Under the care of Dr. Johnson. - Taking methotrexate. Gastroparesis: - Previously seen by Dr. Olivas within the last year. - Reports horrible gas; using Gas-X for relief. Additional Specialist Care: - Seen by Dr. Oewn for pulmonary issues. - Seen by Dr. Hawk for podiatry. - Seen by Dr. Johnson for rheumatology. - Seen by Dr. Tom for endocrinology. ROS: Constitutional: (+) excessive daytime sleepiness Ears/Nose/Mouth/Throat: (+) poor denture fit, (-) hearing difficulty Neck: (-) neck pain, (-) neck mass Cardiovascular: (-) chest pain, (-) edema, (-) palpitations Respiratory: (+) intermittent wheezing Gastrointestinal: (+) excessive gas, (-) heartburn, (-) abdominal pain Genitourinary: (+) decreased libido Musculoskeletal: (+) bilateral leg pain Neurological: (+) balance difficulty, (+) falls Psychiatric: (-) depressed mood, (-) anxiety PE: GENERAL: NAD, alert and oriented. SKIN: Unremarkable, no rash or skin lesions. HEAD: Normocephalic. EYES: PERRLA, EOMI, conjunctiva clear. EARS: External ears normal, canals clear, TM's normal. NOSE/SINUSES: Nares normal. Septum midline. OROPHARYNX: Lips, mucosa, and tongue normal, good dentition. No oral lesions noted. NECK: Supple, no lymphadenopathy, normal thyroid, no carotid bruits. LUNGS: Clear to auscultation bilaterally, no wheezes/rhonchi/rales. HEART: Regular rate and rhythm, no murmurs. No ectopy. EXTREMITIES: Normal, no deformities, no skin discoloration, no edema. ABDOMEN: Soft, non-tender, normal bowel sounds. NEURO: Awake, alert and oriented x3, cranial nerves II-XII grossly intact, normal gait, no involuntary motions. Passed Get Up and Go test within 12 seconds. Assessment and Plan: 1. Medicare annual wellness visit, subsequent (Z00.00) - Completed annual wellness visit. - Discussed importance of advance directives; patient does not currently have a living will. 2. Mixed hyperlipidemia (E78.2) - Most recent lipid panel reviewed (July). - Continue Lipitor as prescribed. 3. Seasonal allergic rhinitis, unspecified trigger (J30.2) - Continue Zyrtec and Flonase as prescribed. 4. Essential hypertension (I10) 5. Primary hypertension (I10) - Blood pressure well controlled. - Continue hydrochlorothiazide, losartan, and metoprolol as prescribed. 6. Essential tremor (G25.0) - stable.l 7. Gastroparesis due to secondary diabetes (HCC) (E13.43) 8. Gastroparesis (K31.84) - Follow-up with Dr. Olivas as needed. 9. Chronic cough (R05.3) - follows with pulmonary 10. Lung nodules (R91.8) -sees pulmonary. 11. 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 Diabetic retinopathy of right eye associated with type 2 diabetes mellitus, macular edema presence unspecified, unspecified retinopathy severity (HCC) (E11.319) - Most recent A1c 8.1%. - No longer using insulin pump; using Mitzi 3 for glucose monitoring. - Proliferative retinopathy with recent retinal bleed; under care of Dr. Hicks at [facility]; laser surgery scheduled. - Continue current diabetes management. 13. Inflammatory polyarthritis (HCC) (M06.4) - Continue methotrexate and folate as prescribed. - Follow-up with rheumatology (Dr. Devine). 14. Age-related osteoporosis without current pathological fracture (M81.0) - Receiving annual Reclast (zoledronic acid) injection. - Order CBC, CMP, and vitamin D level. 15. Class 2 obesity with body mass index (BMI) of 36.0 to 36.9 in adult, unspecified obesity type, unspecified whether serious comorbidity present (E66.812) 16. History of breast cancer (Z85.3) 17. H/O left mastectomy (Z90.12) - stable. 18. History of cervical cancer (Z85.41) - Advised to continue regular Pap tests for life due to history of cervical cancer. 19. Gastroesophageal reflux disease with esophagitis without hemorrhage (K21.00) - Advised to use Gas-X for gas symptoms. 20. Subclinical hypothyroidism (E03.8) - Recent TSH within normal limits. 21. Anxiety (F41.9) - Continue escitalopram as prescribed. 22. Sleep apnea, unspecified type (G47.30) - No longer using CPAP due to intolerance. - Discussed risks of untreated sleep apnea, including increased risk of hypertension, stroke, and atrial fibrillation. - Discussed alternative treatments such as dental appliances. Ilir Hernández MD Recording using ambient [employer] software for draft documentation of the visit was discussed with the patient/authorized sales representative printing paper; all questions welcomed and answered. Patient/authorized sales representative printing paper agreed to proceed documented in this encounter [facility] 03-01-2025 Telephone encounter Note Called to review CT results with patient. 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 RUL ground glass nodule is stable but will continue surveillance. Plan to repeat chest CT in 1 year, will order at follow-up. Needs to be with super dimensional bronchoscopy protocol in February 2026. Patient understands recommendations. Aliyah Holt APRN.CHRISTA [facility] 03-01-2025 Miscellaneous Notes Called to review CT results with patient. 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 RUL ground glass nodule is stable but will continue surveillance. Plan to repeat chest CT in 1 year, will order at follow-up. Needs to be with super dimensional bronchoscopy protocol in February 2026. Patient understands recommendations. Aliyah Holt APRN.MATERIAL LOADER Patient calling in asking if she can get a call back to go over her latest CT scan results of her chest. Please review and advise. Lisa Lopez February 28, 2025 3:02 PM documented in this encounter [facility] 02-28-2025 Telephone encounter Note Patient calling in asking if she can get a call back to go over her latest CT scan results of her chest. Please review and advise. Lisa Lopez February 28, 2025 3:02 PM [facility] 02-25-2025 Telephone encounter Note Call received from Pt - name & verified. Pt calling back to follow-up on CT scan results from 02/19/2025. Prelim results were discussed at the time of her OV with Aliyah Holt APRN.CNP. Final results still pending at this time. Pt is notified and voices understanding. Carol Alex RN February 25, 2025 12:04 PM [facility] 02-25-2025 Miscellaneous Notes Call received from Pt - name & verified. Pt calling back to follow-up on CT scan results from 02/19/2025. Prelim results were discussed at the time of her OV with Aliyah Holt APRN.CNP. Final results still pending at this time. Pt is notified and voices understanding. Carol Alex RN February 25, 2025 12:04 PM documented in this encounter [facility] 02-22-2025 Telephone encounter Note Pt notified of results/provider instructions. She verbalized understanding. Timbo Del Valle LPN [facility] 02-22-2025 Miscellaneous Notes Pt notified of results/provider instructions. She verbalized understanding. Timbo Del Valle LPN ----- Message from Ysabel Edwards APRN.MATERIAL LOADER sent at 02/22/2025 4:37 PM EDT ----- Can please let patient know that her urine culture did not show an infection. Thanks, Ysabel Edwards APRN.CNP documented in this encounter [facility] 02-22-2025 Telephone encounter Note ----- Message from Ysabel Edwards APRN.MATERIAL LOADER sent at 02/22/2025 4:37 PM EDT ----- Can please let patient know that her urine culture did not show an infection. Thanks, Ysabel Edwards APRN.MATERIAL LOADER [facility] 02-20-2025 Note HNO ID: [id number] Author: YSABEL EDWARDS APRN.MATERIAL LOADER Service: ? Author Type: Nurse Practitioner Type: Progress Notes Filed: 02/20/2025 17:07 Note Text: This is a 74 year old female who presents today with: Manishadiego Keith is a 74-year-old female with a history of DM, presenting for evaluation of muscle spasms, urinary frequency, and leg pain and swelling. HISTORY OF PRESENT ILLNESS: Muscle Spasms: - Intermittent muscle spasms under ribs, occurring 1-2 times/month, lasting for extended periods. - Spasms began years ago, with episodes leading to hospitalizations in [facility]. - Previously managed with Valium. - Wonders if spasms could be related to pancreas. - Recent CT scan pending; September scan showed no upper abdominal abnormalities. Urinary Frequency: - Chronic urinary frequency, voiding 3 times/night and more frequently during the day. - Denies dysuria. - Managed with oxybutynin, recently increased to 2 tablets daily with diminishing efficacy. - Reports urge incontinence. - High fluid intake, including water and Sprite Zero; drinks a lot of coffee. PAST MEDICAL HISTORY: PAST MEDICAL HISTORY Diagnosis Date Allergic rhinitis, cause unspecified Arthritis Asthma (HCC) Childhood asthma Breast cancer (HCC) age 34-had lump, cancerous cells. no issues since, left Diverticulosis of colon (without mention of hemorrhage) Ground glass opacity present on imaging of lung Heme positive stool 2011 History of cervical cancer regular Paps for life Hyperlipidemia 2011 Inflammatory polyarthritis (HCC) Dr. 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) Sleep apnea Not on CPAP Type II or unspecified type diabetes mellitus without mention of complication, not stated as uncontrolled Unspecified essential hypertension PAST SURGICAL HISTORY Procedure Laterality Date ABDOMINAL SURGERY HX hx of feeding tube inserted APPENDECTOMY HX COLONOSCOPY FLX DX W/COLLJ SPEC WHEN PFRMD 06/26/2009 COLONOSCOPY FLX DX W/COLLJ SPEC WHEN PFRMD 04/10/2019 Colonoscopy COLONOSCOPY SCREENING 02/11/2022 Dr Olivas EGD 2011 EGD 02/11/2022 Dr Olivas ERCP DX COLLECTION SPECIMEN BRUSHING/WASHING 07/23/2008 Cholangiopancreatography (ERCP) ESOPHAGOGASTRODUODENOSCOPY TRANSORAL DIAGNOSTIC 04/10/2019 EGD EYE SURGERY HX L'SCOPE CHOLECYSTECTOMY 12/30/2023 MASTECTOMY Left age 34 Mastectomy - simple PAST SURGICAL HISTORY OF nose cauterized inside PAST SURGICAL HISTORY OF removal of skin cancer from right arm PAST SURGICAL HISTORY OF Left 10/11/[address] Scott Sutton REMOVAL GALLBLADDER 2023 RMVL SEC MEMBRANOUS CTRC CORNEO-SCLL SCTJ Bilateral Cataract removal BILATERAL TOTAL ABDOMINAL HYSTERECT W/WO RMVL TUBE OVARY age 27 Hysterectomy, MARQUES cervical cancer, has one ovary left ALLERGIES Jesenia Inhibitors, Nsaids (Non-Steroidal Anti-Inflammatory Drug), Tape [Adhesive Tape (Rosins)], and Trulicity [Dulaglutide] MEDICATIONS Current Outpatient Medications Medication Sig solifenacin (VESICARE) 10 mg tablet Take 1 tablet by mouth once daily. tiZANidine (ZANAFLEX) 2 mg tablet Take 1 tablet by mouth every 6 hours as needed. diazePAM (VALIUM) 2 mg tablet Take 2 mg by mouth every 8 hours as needed (muscle spasms). fluticasone-salmeterol (WIXELA INHUB) 500-50 mcg/dose dsdv Inhale 1 puff as instructed two times a day. HUMULIN R U-500, CONC, KWIKPEN 500 unit/mL (3 mL) inpn 55 units in AM with meal and 35 units in PM with meal Per Dr. Chi. Blood-Glucose Sensor (FREESTYLE MITZI 3 SENSOR) krystyna Use as directed erythromycin (ROMYCIN) 5 mg/gram (0.5 %) ophthalmic ointment APPLY OINTMENT INTO EACH EYE NIGHTLY pantoprazole DR (PROTONIX) 40 mg tablet Take 1 tablet by mouth once daily. gabapentin (NEURONTIN) 300 mg capsule Take 1 capsule by mouth daily at bedtime. atorvastatin (LIPITOR) 20 mg tablet Take 1 tablet by mouth daily at bedtime. For cholesterol. fluticasone (FLONASE) 50 mcg/actuation nasal spray USE 1 SPRAY IN EACH NOSTRIL ONCE DAILY AT BEDTIME DIRECTED metoprolol succinate ER (TOPROL XL) 100 mg Take 1 tablet by mouth once daily. albuterol HFA (PROVENTIL HFA, VENTOLIN HFA) 90 mcg/actuation inhaler Inhale 2 Puffs as instructed every 4 hours as needed for wheezing/shortness of breath. aspirin, enteric coated (ASPIRIN, ENTERIC COATED) 81 mg EC tablet Take 81 mg by mouth once daily. CPAP/BIPAP/OTHER Type .CPAPSettings into a note to see current settings/supplies/DME information. losartan (COZAAR) 100 mg tablet Take 1 tablet by mouth once daily. escitalopram oxalate (LEXAPRO) 10 mg tablet Take 1 tablet by mouth once daily. FOLDING WALKER WITH 5 WHEELS Use with ambulation blood sugar di (more content not included)... [facility] 02-20-2025 History of Presen t illness Narrative This is a 74 year old female who presents today with: Manisha Nunez Kirit is a 74-year-old female with a history of DM, presenting for evaluation of muscle spasms, urinary frequency, and leg pain and swelling. HISTORY OF PRESENT ILLNESS: Muscle Spasms: - Intermittent muscle spasms under ribs, occurring 1-2 times/month, lasting for extended periods. - Spasms began years ago, with episodes leading to hospitalizations in [place] and [place]. - Previously managed with Valium. - Wonders if spasms could be related to pancreas. - Recent CT scan pending; September scan showed no upper abdominal abnormalities. Urinary Frequency: - Chronic urinary frequency, voiding 3 times/night and more frequently during the day. - Denies dysuria. - Managed with oxybutynin, recently increased to 2 tablets daily with diminishing efficacy. - Reports urge incontinence. - High fluid intake, including water and Sprite Zero; drinks a lot of coffee. PAST MEDICAL HISTORY: PAST MEDICAL HISTORY Diagnosis Date Allergic rhinitis, cause unspecified Arthritis Asthma (HCC) Childhood asthma Breast cancer (HCC) age 34-had lump, cancerous cells. no issues since, left Diverticulosis of colon (without mention of hemorrhage) Ground glass opacity present on imaging of lung Heme positive stool 2010 History of cervical cancer regular Paps for life Hyperlipidemia 2010 Inflammatory polyarthritis (HCC) Dr. 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) Sleep apnea Not on CPAP Type II or unspecified type diabetes mellitus without mention of complication, not stated as uncontrolled Unspecified essential hypertension PAST SURGICAL HISTORY Procedure Laterality Date ABDOMINAL SURGERY HX hx of feeding tube inserted APPENDECTOMY HX COLONOSCOPY FLX DX W/COLLJ SPEC WHEN PFRMD 06/26/2009 COLONOSCOPY FLX DX W/COLLJ SPEC WHEN PFRMD 04/10/2019 Colonoscopy COLONOSCOPY SCREENING 02/11/2022 Dr Olivas EGD 2010 EGD 02/11/2022 Dr Olivas ERCP DX COLLECTION SPECIMEN BRUSHING/WASHING 07/23/2008 Cholangiopancreatography (ERCP) ESOPHAGOGASTRODUODENOSCOPY TRANSORAL DIAGNOSTIC 04/10/2019 EGD EYE SURGERY HX L'SCOPE CHOLECYSTECTOMY 12/30/2023 MASTECTOMY Left age 34 Mastectomy - simple PAST SURGICAL HISTORY OF nose cauterized inside PAST SURGICAL HISTORY OF removal of skin cancer from right arm PAST SURGICAL HISTORY OF Left 10/11/[address] Scott Sutton REMOVAL GALLBLADDER 2023 [facility] CORNEO-SCLL SCTJ Bilateral Cataract removal BILATERAL TOTAL ABDOMINAL HYSTERECT W/WO RMVL TUBE OVARY age 27 Hysterectomy, MARQUES cervical cancer, has one ovary left ALLERGIES Jesenia Inhibitors, Nsaids (Non-Steroidal Anti-Inflammatory Drug), Tape [Adhesive Tape (Rosins)], and Trulicity [Dulaglutide] MEDICATIONS Current Outpatient Medications Medication Sig solifenacin (VESICARE) 10 mg tablet Take 1 tablet by mouth once daily. tiZANidine (ZANAFLEX) 2 mg tablet Take 1 tablet by mouth every 6 hours as needed. diazePAM (VALIUM) 2 mg tablet Take 2 mg by mouth every 8 hours as needed (muscle spasms). fluticasone-salmeterol (WIXELA INHUB) 500-50 mcg/dose dsdv Inhale 1 puff as instructed two times a day. HUMULIN R U-500, CONC, KWIKPEN 500 unit/mL (3 mL) inpn 55 units in AM with meal and 35 units in PM with meal Per Dr. Chi. Blood-Glucose Sensor (FREESTYLE MITZI 3 SENSOR) krystyna Use as directed erythromycin (ROMYCIN) 5 mg/gram (0.5 %) ophthalmic ointment APPLY OINTMENT INTO EACH EYE NIGHTLY pantoprazole DR (PROTONIX) 40 mg tablet Take 1 tablet by mouth once daily. gabapentin (NEURONTIN) 300 mg capsule Take 1 capsule by mouth daily at bedtime. atorvastatin (LIPITOR) 20 mg tablet Take 1 tablet by mouth daily at bedtime. For cholesterol. fluticasone (FLONASE) 50 mcg/actuation nasal spray USE 1 SPRAY IN EACH NOSTRIL ONCE DAILY AT BEDTIME DIRECTED metoprolol succinate ER (TOPROL XL) 100 mg Take 1 tablet by mouth once daily. albuterol HFA (PROVENTIL HFA, VENTOLIN HFA) 90 mcg/actuation inhaler Inhale 2 Puffs as instructed every 4 hours as needed for wheezing/shortness of breath. aspirin, enteric coated (ASPIRIN, ENTERIC COATED) 81 mg EC tablet Take 81 mg by mouth once daily. CPAP/BIPAP/OTHER Type .CPAPSettings into a note to see current settings/supplies/DME information. losartan (COZAAR) 100 mg tablet Take 1 tablet by mouth once daily. escitalopram oxalate (LEXAPRO) 10 mg tablet Take 1 tablet by mouth once daily. FOLDING WALKER WITH 5 WHEELS Use with ambulation blood sugar diagnostic (BLOOD GLUCOSE TEST) test strip Test blood sugar(s) 3 times daily. Dx: Type 2 DM - Uncontrolled E11.65 Insulin: Yes Lancets Test blood sugar(s) 3 times daily. Dx: Type 2 DM - Controlled E11.9 Insulin: Yes cetirizine (ZYRTEC) 10 mg tablet Take 1 tablet by mouth once daily. hydroCHLOROthiazide 12.5 mg capsule Take 1 capsule by mouth once daily. FOLIC ACID ORAL Take by mouth. methotrexate 2.5 mg tablet Take 20 mg by mouth every Tuesday. melatonin 3 mg tablet Take 1 tablet at 9PM nightly. insulin needles, DISPOSABLE, (PEN NEEDLE) 31 gauge x 5/16 Use one needle per dose. 4 per day. blood sugar diagnostic (ONETOUCH VERIO TEST STRIPS) test strip Test blood sugar(s) 3-4 times daily. Dx: Other DM Code E11.319 Insulin: Yes Cholecalciferol, Vitamin D3, 50 mcg (2,000 unit) cap Take 1 capsule by mouth once daily. Blood-Glucose Meter monitoring kit Glucose Meter of Choice - Kit - Dx: Type 2 DM - Controlled E11.9 COMPOUNDED PRESCRIPTION Insulin needles-1/2 cc for 100 u Use up to 4 a day fluorometholone (FML LIQUID FILM) 0.1 % ophthalmic suspension Use 2 Drops in the left eye twice daily. No current facility-administered medications for this visit. FAMILY HISTORY Problem Relation Age of Onset Alcohol abuse Mother None Father Cave in Stroke Sister Cancer Sister COPD Sister No Known Problems Brother No Known Problems Brother Breast Cancer Maternal Aunt Primary Biliary Cirrhosis Daughter Social History Tobacco Use Smoking status: Former Current packs/day: 0.00 Average packs/day: 0.8 packs/day for 30.0 years (22.5 ttl pk-yrs) Types: Cigarettes Start date: 08/15/1970 Quit date: 08/15/2000 Years since quittin.5 Passive exposure: Never Smokeless tobacco: Never Vaping Use Vaping status: Never Used Substance Use Topics Alcohol use: Never Comment: rarely Drug use: No REVIEW OF SYSTEMS Constitutional: (+) easy dehydration, (-) loss of appetite Neck: (+) neck stiffness Cardiovascular: (+) bilateral leg swelling Respiratory: (+) wheezing Gastrointestinal: (+) abdominal tenderness Genitourinary: (+) urinary frequency, (+) nocturia, (+) urge incontinence, (-) dysuria Musculoskeletal: (+) muscle spasms subcostal, (+) bilateral leg pain EXAM: BP 140/90 Pulse 80 Resp 16 SpO2 95% PHYSICAL EXAM: General Appearance: Well appearing, alert, in no acute distress, well-hydrated, well nourished.. Skin: Skin color, texture, turgor normal, no suspicious rashes or lesions. Head: Normocephalic, no masses, lesions, tenderness or abnormalities. Eyes: Anicteric sclera. Extraocular movements are intact. . Lungs: Lungs clear to auscultation. No wheezing, rhonchi, rales.. Heart: RRR without murmur, gallop, or rubs. No ectopy. Abdomen: Abdomen soft, non-tender. Bowel sounds normal. No masses, organomegaly. Extremities: No deformities, edema, skin discoloration, clubbing or cyanosis. Good capillary refill. . Neurologic: Gait normal. ASSESSMENT/PLAN 1. Urinary frequency (R35.0) - Symptoms include nocturia (3 times per night) and urgency with occasional incontinence. - Previously managed with oxybutynin, which has become less effective. - Discontinue oxybutynin. - Initiated Vesicare 1 pill once daily. - Advised to reduce coffee intake due to its bladder irritant properties. - Educated on performing Kegel exercises to strengthen pelvic floor muscles. 2. Muscle spasm (M62.838) - Occur approximately 1-2 times per month, lasting intermittently. - Previous CT scan in September showed no abnormalities in the upper abdomen; recent CT scan results pending. - Prescribed tizanidine for muscle spasms, with caution regarding potential sedative effects. - Advised to maintain adequate hydration. Discussed treatment plan and patient voices understanding. Patient's questions answered appropriately. Medications and potential side effects were discussed and patient voices understanding. Return to the office as scheduled or as needed for worsening/no improvement. Ysabel Edwards APRN.MATERIAL LOADER Recording using [employer] software for draft documentation of the visit was discussed with the patient/authorized sales representative printing paper; all questions welcomed and answered. Patient/authorized sales representative printing paper agreed to proceed documented in this encounter [facility] 02-20-2025 Instructions Ysabel Edwards APRN.MATERIAL LOADER - 02/20/2025 1:43 PM EDT - Start Vesicare (solifenacin) 1 tablet once daily for your urinary frequency; stop taking oxybutynin while you re on Vesicare. - Use tizanidine as needed for muscle spasms; be aware it may cause drowsiness. - Cut back on coffee and other bladder irritants to help reduce urinary urgency. - Practice Kegel exercises to strengthen your bladder control: try stopping your urine mid-stream and repeat squeezes while sitting or during daily activities. - Drink plenty of fluids to stay hydrated and help manage muscle cramps and leg swelling. - Reduce sodium intake by avoiding high-salt processed foods (canned soups or vegetables, lunch meats, TV dinners, condiments) to lessen leg swelling. - Call the office to let us know how you re tolerating Vesicare and tizanidine or if your urinary symptoms or spasms worsen. documented in this encounter [facility] 02-19-2025 Telephone encounter Note Spoke with pt, states she has muscle spasms, all over, but mostly under ribs. She saw pulmonology today and had repeat ct scan. Scheduled with Ysabel for tomorrow. Kerry Spivey MA February 19, 2025 4:06 PM [facility] 02-19-2025 Miscellaneous Notes Spoke with pt, states she has muscle spasms, all over, but mostly under ribs. She saw pulmonology today and had repeat ct scan. Scheduled with Ysabel for tomorrow. Kerry Spivey MA February 19, 2025 4:06 PM We have not refilled these for several years. That is not a great med to be continuing to use. If having muscle spasms to the extent she would need something like that, we would need to see her for it. Patient in pulmonary clinic today and asking for refill of diazepam 2mg tablets. Uses PRN for muscle spasms. Last RX 11/2022. [facility] preferred [facility]. Mariia Mart LPN documented in this encounter [facility] 02-19-2025 Aliyah Swift APRN.MATERIAL LOADER - 02/19/2025 2:14 PM EDT Will await the radiologists review of your chest CT for their opinion on your right upper lobe lung nodule. Follow-up recommendations after we have the final results. Increase your inhaler (Wixela/Advair) to high dose and use twice a day. Remember to rinse your mouth out well after use. Continue Albuterol as needed. Try taking Zyrtec or Claritin every day. Continue Flonase. Follow-up in 3 months. documented in this encounter [facility] 02-19-2025 Telephone encounter Note We have not refilled these for several years. That is not a great med to be continuing to use. If having muscle spasms to the extent she would need something like that, we would need to see her for it. [facility] 02-19-2025 Telephone encounter Note Patient in pulmonary clinic today and asking for refill of diazepam 2mg tablets. Uses PRN for muscle spasms. Last RX 11/2022. [facility] is preferred [facility]. Mariia Mart LPN [facility] 02-19-2025 History of Presen t illness Narrative Images from the original note were not included. Pulmonary Medicine Patients name: Manisha Keith PCP: Ilir Hernández MD CC: follow-up HPI: Manisha Keith is a 74 year old female former 22 pack year smoker, quitting in 2000 with PMH significant for obesity, childhood asthma, allergies, HLD, inflammatory arthritis, RICARDO on CPAP, DM, HTN, GERD, lung nodule. Hx of Methacholine challenge testing officially negative but patient had 20% drop in FEV1 at last dose. BAUDILIO 09/[address] showing stable RUL groundglass nodule. Showed new AVNI nodule, recommended surveillance CT. Reported stable Asthma symptoms. Current inhaled therapy with Wixela. She presents today for follow-up and updated chest CT. Since her last visit, she reports poor control of her asthma symptoms. Using Wixela once a day and also needing Albuterol about once a day. Today, patient reports cough can be bothersome. Usually produces yellow/white sputum. There are times cough goes away for a period of time before resuming, reports allergies may be contributing. Uses Mucinex occasionally which is helpful. She reports wheezing is frequent. Has occasional chest tightness. Denies dyspnea at rest. Has exertional breath with climbing stairs or heavy activity. No recent fevers, chills or night sweats. No recent hospitalizations or ED visits or upper respiratory infections. Historically [place] panel negative. Uses Flonase on occasion for congestion/PND. Reviewed updated chest CT today. Has not been read by radiology but from my view, AVNI nodule has resolved. RUL groundglass nodule appears unchanged. PAST MEDICAL HISTORY Diagnosis Date Allergic rhinitis, cause unspecified Arthritis Asthma (HCC) Childhood asthma Breast cancer (HCC) age 34-had lump, cancerous cells. no issues since, left Diverticulosis of colon (without mention of hemorrhage) Ground glass opacity present on imaging of lung Heme positive stool 2011 History of cervical cancer regular Paps for life Hyperlipidemia 2011 Inflammatory polyarthritis (HCC) Dr. 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 If you have any questions, ask your nurse or doctor. CONTINUE taking these medications albuterol HFA 90 mcg/actuation inhaler Commonly known as: PROVENTIL HFA, VENTOLIN HFA Inhale 2 Puffs as instructed every 4 hours as needed for wheezing/shortness of breath. aspirin, enteric coated 81 mg EC tablet Commonly known as: ASPIRIN, ENTERIC COATED atorvastatin 20 mg tablet Commonly known as: LIPITOR Take 1 tablet by mouth daily at bedtime. For cholesterol. Blood-Glucose Meter monitoring kit Glucose Meter of Choice - Kit - Dx: Type 2 DM - Controlled E11.9 cetirizine 10 mg tablet Commonly known as: ZyrTEC Take 1 tablet by mouth once daily. Cholecalciferol (Vitamin D3) 50 mcg (2,000 unit) Cap Take 1 capsule by mouth once daily. COMPOUNDED PRESCRIPTION Insulin needles-1/2 cc for 100 u Use up to 4 a day CPAP/BIPAP/OTHER Type .CPAPSettings into a note to see current settings/supplies/DME information. erythromycin 5 mg/gram (0.5 %) ophthalmic ointment Commonly known as: ROMYCIN escitalopram oxalate 10 mg tablet Commonly known as: LEXAPRO Take 1 tablet by mouth once daily. fluorometholone 0.1 % ophthalmic suspension Commonly known as: FML LIQUID FILM fluticasone 50 mcg/actuation nasal spray Commonly known as: FLONASE USE 1 SPRAY IN EACH NOSTRIL ONCE DAILY AT BEDTIME DIRECTED fluticasone-salmeterol 250-50 mcg/dose inhaler Commonly known as: ADVAIR, WIXELA Inhale 1 Puff as instructed two times a day. FOLDING WALKER WITH 5 WHEELS Use with ambulation FOLIC ACID PO FREESTYLE MITZI 3 SENSOR Krystyna Generic drug: Blood-Glucose Sensor Use as directed gabapentin 300 mg capsule Commonly known as: NEURONTIN Take 1 capsule by mouth daily at bedtime. HumuLIN R U-500 (Conc) Kwikpen 500 unit/mL (3 mL) Inpn Generic drug: insulin regular human (CONCENTRATED 500 UNIT/ML) 55 units in AM with meal and 35 units in PM with meal Per Dr. Chi. hydroCHLOROthiazide 12.5 mg capsule Take 1 capsule by mouth once daily. insulin needles (DISPOSABLE) 31 gauge x 5/16 Commonly known as: PEN NEEDLE Use one needle per dose. 4 per day. Lancets Test blood sugar(s) 3 times daily. Dx: Type 2 DM - Controlled E11.9 Insulin: Yes losartan 100 mg tablet Commonly known as: COZAAR Take 1 tablet by mouth once daily. melatonin 3 mg tablet Take 1 tablet at 9PM nightly. methotrexate 2.5 mg tablet metoprolol succinate ER 100 mg Commonly known as: TOPROL XL Take 1 tablet by mouth once daily. Omeprazole 20 mg Tbec ondansetron orally disintegrating 4 mg disintegrating tablet Commonly known as: ZOFRAN ODT * [place] PurificationTOUCH VERIO TEST STRIPS test strip Generic drug: blood sugar diagnostic Test blood sugar(s) 3-4 times daily. Dx: Other DM Code E11.319 Insulin: Yes * blood sugar diagnostic test strip Commonly known as: BLOOD GLUCOSE TEST Test blood sugar(s) 3 times daily. Dx: Type 2 DM - Uncontrolled E11.65 Insulin: Yes oxybutynin ER 10 mg 24 hr tablet Commonly known as: DITROPAN XL Take 2 tablets by mouth once daily. pantoprazole DR 40 mg tablet Commonly known as: PROTONIX Take 1 tablet by mouth once daily. verapamil SR 120 mg CR tablet Commonly known as: CALAN SR Take 1 tablet by mouth daily at bedtime. * This list has 2 medication(s) that are the same as other medications prescribed for you. Read the directions carefully, and ask your doctor or other care provider to review them with you. DATA: I personally reviewed and analyzed all labs, radiographs and available pulmonary function testing PFT: 04/2023 Spirometry is normal. The diffusing capacity is normal. CT Chest: 09/2024 IMPRESSION: 1. Interval development of several noncalcified pulmonary nodules, most numerous in the right upper lobe. The largest is in the left upper lobe measuring 6.7 mm in size. Most demonstrate surrounding groundglass attenuation and most suggestive of an infectious/inflammatory process. 2. A couple of stable pulmonary nodules, including a 10 x 9 mm subsolid nodule in the right lung apex. 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 Transcribe Date/Time: Oct 16 2024 7:32P Dictated by : RODRIGO DAVIS MD This examination was interpreted and the report reviewed and electronically signed by: RODRIGO DAVIS MD on Oct 16 2024 7:37PM EST Comparison: 09/29/2023 RESULT: Limitations: None. Lines, tubes, and devices: None. Lung parenchyma and airways: There is a stable 10 x 9 mm subsolid nodule in the right lung apex, image 55. No significant change in the 5 mm left lower lobe pulmonary nodule as seen on image 193. 6.7 mm nodule in the posterior left upper lobe as measured on image 126, new since previous exam. There is surrounding groundglass attenuation. A couple of tiny right upper lobe pulmonary nodules are seen in the right upper lobe laterally measuring up to 5 mm in size. These also demonstrate surrounding groundglass attenuation. These are measured on image 160 of series 6. A few smaller right upper lobe pulmonary nodules are present. Pleural space: No pleural effusion. No pleural thickening. Labs: WBC (k/uL) Date Value 09/26/2024 6.85 09/11/2021 6.51 RBC (m/uL) Date Value 09/26/2024 3.96 09/11/2021 4.15 Hemoglobin (g/dL) Date Value 09/26/2024 12.3 09/11/2021 12.6 Hematocrit (%) Date Value 09/26/2024 37.5 09/11/2021 38.7 Platelet Count (k/uL) Date Value 09/26/2024 264 09/11/2021 268 MPV (fL) Date Value 09/26/2024 9.7 09/11/2021 9.7 Neut% (%) Date Value 09/11/2021 63.2 Neutrophils % (%) Date Value 09/26/2024 60.0 Eosin% (%) Date Value 09/11/2021 2.9 Eosinophils % (%) Date Value 09/26/2024 3.8 Baso% (%) Date Value 09/11/2021 0.9 Basophils % (%) Date Value 09/26/2024 0.7 Abs Neut (ANC) (k/uL) Date Value 09/11/2021 4.11 Abs Neut (k/uL) Date Value 09/26/2024 4.11 Abs [place] (k/uL) Date Value 09/26/2024 0.26 09/11/2021 0.45 Abs Eosin (k/uL) Date Value 09/26/2024 0.26 09/11/2021 0.19 Abs Baso (k/uL) Date Value 09/26/2024 0.05 09/11/2021 0.06 IgE (kU/l) Date Value 07/01/2023 44.5 Review of Systems Constitutional: Negative for activity change, appetite change, fatigue and unexpected weight change. HENT: Positive for congestion and postnasal drip. Negative for mouth sores and sinus pain. Respiratory: Positive for cough, chest tightness, shortness of breath and wheezing. Cardiovascular: Negative for chest pain, palpitations and leg swelling. Allergic/Immunologic: Positive for environmental allergies. Neurological: Negative for dizziness and weakness. BP (P) 138/78 Pulse (P) 80 Resp (P) 16 SpO2 (P) 94% Physical Exam Vitals reviewed. Constitutional: General: She is not in acute distress. Appearance: Normal appearance. She is not ill-appearing. HENT: Head: Normocephalic. Mouth/Throat: Mouth: Mucous membranes are moist. Pharynx: No oropharyngeal exudate or posterior oropharyngeal erythema. Cardiovascular: Rate and Rhythm: Normal rate and regular rhythm. Heart sounds: Normal heart sounds. Pulmonary: Effort: Pulmonary effort is normal. No respiratory distress. Breath sounds: No wheezing or rhonchi. Musculoskeletal: Right lower leg: Edema present. Left lower leg: Edema present. Comments: 1+ B/l LE edema Lymphadenopathy: Cervical: No cervical adenopathy. Skin: General: Skin is warm and dry. Capillary Refill: Capillary refill takes less than 2 seconds. Neurological: General: No focal deficit present. Mental Status: She is alert. ASSESSMENT/PLAN: 1. Mild persistent asthma without complication (HCC) - ICD9: 493.90, ICD10: J45.30 (primary diagnosis) - Mild persistent asthma worse. - patient educated on inhaler usage. Instructed to increase to high dose Wixela. Advised using twice a day as prescribed. Patient instructed to monitor symptoms. Previously recommended triple therapy inhaler but did not obtain d/t cost. Insurance recently switched and could consider triple therapy if she continues to be symptomatic with high dose Wixela. - continue Albuterol as needed. - Asthma education: Reviewed asthma signs, symptoms and monitoring and Rinsing after each inhaled steroid use - FLUTICASONE 500 MCG-SALMETEROL 50 MCG/DOSE BLISTR POWDR FOR INHALATION 2. Lung nodules - ICD9: 793.19, ICD10: R91.8 - reviewed images with patient. RUL groundglass nodule appears stable. AVNI nodule resolved. Will await radiologist review. Will make further recommendations following final read. 3. Post-nasal drip - ICD9: 784.91, ICD10: R09.82 - continue Flonase. F/u 3 months Portions of this documentation were copied and pasted from previous office visit notes in order to provide a cohesive continuity of the history. The note has been reviewed and edited and updated as necessary. Aliyah Holt APRN.CNP I spent a total of 38 minutes on the date of the service which included preparing to see the patient, [id number] patient care, completing clinical documentation, performing a medically appropriate examination, counseling and educating the patient/family/caregiver, and ordering medications, tests, or procedures. documented in this encounter [facility] 02-19-2025 Note HNO ID: [id number] Author: ALIYAH HOLT APRN.CNP Service: ? Author Type: Nurse Practitioner Type: Progress Notes Filed: 02/19/2025 15:46 Note Text: Pulmonary Medicine Patients name: Manisha Keith PCP: Ilir Hernández MD CC: follow-up HPI: Manisha Keith is a 74 year old female former 22 pack year smoker, quitting in 2000 with PMH significant for obesity, childhood asthma, allergies, HLD, inflammatory arthritis, RICARDO on CPAP, DM, HTN, GERD, lung nodule. Hx of Methacholine challenge testing officially negative but patient had 20% drop in FEV1 at last dose. BAUDILIO 09/[address] showing stable RUL groundglass nodule. Showed new AVNI nodule, recommended surveillance CT. Reported stable Asthma symptoms. Current inhaled therapy with Wixela. She presents today for follow-up and updated chest CT. Since her last visit, she reports poor control of her asthma symptoms. Using Wixela once a day and also needing Albuterol about once a day. Today, patient reports cough can be bothersome. Usually produces yellow/white sputum. There are times cough goes away for a period of time before resuming, reports allergies may be contributing. Uses Mucinex occasionally which is helpful. She reports wheezing is frequent. Has occasional chest tightness. Denies dyspnea at rest. Has exertional breath with climbing stairs or heavy activity. No recent fevers, chills or night sweats. No recent hospitalizations or ED visits or upper respiratory infections. Historically [place] panel negative. Uses Flonase onoccasion for congestion/PND. Reviewed updated chest CT today. Has not been read by radiology but from my view, AVNI nodule has resolved. RUL groundglass nodule appears unchanged. PAST MEDICAL HISTORY Diagnosis Date Allergic rhinitis, cause unspecified Arthritis Asthma (HCC) Childhood asthma Breast cancer (HCC) age 34-had lump, cancerous cells. no issues since, left Diverticulosis of colon (without mention of hemorrhage) Ground glass opacity present on imaging of lung Heme positive stool 2010 History of cervical cancer regular Paps for life Hyperlipidemia 2011 Inflammatory polyarthritis ([facility]) Dr. 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 If you have any questions, ask your nurse or doctor. CONTINUE taking these medications albuterol HFA 90 mcg/actuation inhaler Commonly known as: PROVENTIL HFA, VENTOLIN HFA Inhale 2 Puffs as instructed every 4 hours as needed for wheezing/shortness of breath. aspirin, enteric coated 81 mg EC tablet Commonly known as: ASPIRIN, ENTERIC COATED atorvastatin 20 mg tablet Commonly known as: LIPITOR Take 1 tablet by mouth daily at bedtime. For cholesterol. Blood-Glucose Meter monitoring kit Glucose Meter of Choice - Kit - Dx: Type 2 DM - Controlled E11.9 cetirizine 10 mg tablet Commonly known as: ZyrTEC Take 1 tablet by mouth once daily. Cholecalciferol (Vitamin D3) 50 mcg (2,000 unit) Cap Take 1 capsule by mouth once daily. COMPOUNDED PRESCRIPTION Insulin needles-1/2 cc for 100 u Use up to 4 a day CPAP/BIPAP/OTHER Type .CPAPSettings into a note to see current settings/supplies/DME information. erythromycin 5 mg/gram (0.5 %) ophthalmic ointment Commonly known as: ROMYCIN escitalopram oxalate 10 mg tablet Commonly known as: LEXAPRO Take 1 tablet by mouth once daily. fluorometholone 0.1 % ophthalmic suspension Commonly known as: FML LIQUID FILM fluticasone 50 mcg/actuation nasal spray Commonly known as: FLONASE USE 1 SPRAY IN EACH NOSTRIL ONCE DAILY AT BEDTIME DIRECTED fluticasone-salmeterol 250-50 mcg/dose inhaler Commonly known as: ADVAIR, WIXELA Inhale 1 Puff as instructed two times a day. FOLDING WALKER WITH 5 WHEELS Use with ambulation FOLIC ACID PO FREESTYLE MITZI 3 SENSOR Krystyna Generic drug: Blood-Glucose Sensor Use as directed gabapentin 300 mg capsule Commonly known as: NEURONTIN Take 1 capsule by mouth daily at bedtime. HumuLIN R U-500 (Conc) Kwikpen 500 unit/mL (3 mL) Inpn Generic drug: insulin regular human (CONCENTRATED 500 UNIT/ML) 55 units in AM with meal and 35 units in PM with meal Per Dr. Chi. hydroCHLOROthiazide 12.5 mg capsule Take 1 capsule by mouth once daily. insulin ne (more content not included)... [facility] 01-21-2025 Evaluation note Diagnosis Onset Date Resolution Diabetes chronic January 21, 2025 1:48pm Hyperlipidemia chronic January 21, 2025 1:48pm Obesity chronic January 21, 2025 1:48pm Osteoporosis chronic January 21 1:48pm [facility] Work Phone: [phone] 243-172506-09-2025 [facility] [address] [place] [address] OFFICE VISIT Date of Service: 01/21/25 MR#: [id number] Acct: [id number] Name: MANISHA KEITH Rep #: [id number] : 1950 Provider: Dr. Charles Chi MD Age/Sex: 74/F Location: [facility] [place], [place] Status: Signed Intake Vital Signs 10/08/24 15:00 01/21/25 13:56 Height 5 ft 2 in 5 ft 2 in Weight: 198 lb 2 oz 194 lb 8 oz BMI 36.2 35.5 BP 136/77 H 151/83 H Blood Pressure Location Rt brachial Rt brachial Position Sitting Sitting Pulse 108 H 91 Pulse Source Monitor Monitor Pulse Oximetry (%) 93 93 Oxygen Delivery Method room air room air Intake Visit Reasons: 2 M FU Chief Complaint: diabetes Is patient in pain?: No Allergies JESENIA Inhibitors Allergy (Intermediate, Verified 01/21/25 14:01) Cough adhesive tape Allergy (Intermediate, Verified 01/21/25 14:01) blisters dulaglutide (From [facility]) Allergy (Intermediate, Verified 01/21/25 14:01) Gastroparesis Dressing: Non-Medicated (elastic) Allergy (Verified 01/21/25 14:01) Rash NSAIDS (Non-Steroidal Anti-Inflamma Allergy (Verified 01/21/25 14:01) Other Latex, Natural Rubber Adverse Reaction (Mild, Verified 01/21/25 14:01) RASH Medications ?Medication ?Instructions ?Recorded ?Confirmed ?Type fluticasone propionate 50 1 spray intranasal DAILY PRN NASAL 01/30/14 01/21/25 History mcg/actuation nasal CONGESTION spray,suspension methotrexate sodium 2.5 mg tablet 20 mg PO TEJADA BREAST C ANCER 04/16/17 01/21/25 History escitalopram oxalate 10 mg tablet 10 mg PO DAILY PRN D EPRESSION 06/05/21 01/21/25 History (Lexapro) folic acid 1 mg tablet 2 mg PO DAILY SUPPLEMENT 01/21/25 History hydrochlorothiazide 12.5 mg capsule 12.5 mg PO DAILY B LOOD PRESSURE 06/05/21 01/21/25 History losartan 100 mg tablet 100 mg PO DAILY BLOOD PRESSU RE 06/05/21 01/21/25 History aspirin 81 mg tablet,delayed 81 mg PO DAILY HEART HEAL TH 02/05/22 01/21/25 History release (Adult Low Dose Aspirin) gabapentin 300 mg capsule 300 mg PO QHS NEUROPATHY 01/21/25 History oxybutynin chloride 10 mg 20 mg PO DAILY OVERACTIVE BL ADDER 02/05/22 01/21/25 History tablet,extended release 24 hr metoprolol succinate 100 mg 100 mg PO DAILY BLOOD PRES SURE 02/24/22 01/21/25 History tablet,extended release 24 hr pen needle, diabetic 32 gauge x #100 ea 11/26/2210/08 Rx 5/32 (BD Ultra-Fine Tish Pen Needle) atorvastatin 20 mg tablet 20 mg PO DAILY CHOLESTEROL 1 08/21/22 01/21/25 History metaxalone 800 mg tablet 800 mg PO TID PRN MUSCLE EXPLOSIVE TECHNICIAN MPS 06/21/23 01/21/25 History insulin regular hum U-500 conc 500 See Rx Instructions subcut TIDCM 12/28/23 01/21/25 History unit/mL(3 mL) subcut pen (Humulin diabetes R U-500 (Conc) Insulin Kwikpen) zoledronic acid 5 mg/100 mL in See Rx Instructions .Ro telida ONCE 08/30/24 01/21/25 Rx mannitol 5 %-water intravenous #100 mL piggybck blood sugar diagnostic (OneTouch #150 ea 11/14/24 Rx Verio test strips) blood-glucose,repairer cylinder heads,cont #1 ea 11/14/24 Rx (FreeStyle Mitzi 3 [place]) albuterol sulfate 90 mcg/actuation 2 puff inhalation Q 4 PRN wheezing 01/21/25 01/21/25 History aerosol inhaler ammonium lactate 12 % lotion topical PRN 01/21/2505/09 History cholecalciferol (vitamin D3) 1,250 1,250 mcg PO QWEEK #12 caps 01/21/25 01/21/25 Rx mcg (50,000 unit) capsule pantoprazole 40 mg tablet,delayed 40 mg PO QDAY 01/21/25 History release Have you fallen in the past year?: No PFSH Medical History Depression Ambulates with cane High cholesterol CPAP (continuous positive airway pressure) dependence Closed left hip fracture Osteoporosis Former smoker Sleep apnea Asthma COPD (chronic obstructive pulmonary disease) Essential hypertension History of gastrostomy tube placement Wears glasses Wears dentures History of Clostridium difficile infection Cancer Anxiety Easy bruising Injury of head and neck Restless legs Loss of consciousness Dietary restriction Shortness of breath on exertion Chronic cough History of stress test History of edema Leg cramps History of Holter monitoring Cardiology follow-up encounter History of vaginal delivery Urinary incontinence Internal hemorrhoids History of cervical cancer Diverticulosis Obesity Vision problems Pancreatitis Osteoarthritis Neuropathy IBS (irritable bowel syndrome) Recurrent infections Hives Calcium deficiency Gastrointestinal problem Gall stone Chronic bronchitis Carpal tunnel syndrome Cataract Breast cancer Breast lump UTI (urinary tract infection) Back problem Arthritis Seasonal allergies GERD (gastroesophageal reflux disease) OAB (overactive bladder) Rhabdomyolysis (04/2017) MSSA (methicillin susceptible Staphylococcus aureus) pneumonia Allergic rhinitis Diabetes mellitus, type II Inflammatory polyarthritis Surgical History History of repair of left hip joint History of ERCP S/P cholecystectomy History of nasal cauterization History of colonoscopy History of appendectomy History of left mastectomy History of hysterectomy Family History Other Alcohol abuse Anxiety Arthritis Asthma defect COPD (chronic obstructive pulmonary disease) Cancer Diabetes High cholesterol Hypertension Seizures Social History Smoking Status: Former smoker alcohol intake: current alcohol intake frequency: 0-2 drinks per day substance use type: does not use what type of physical activity do you participate in: none HPI HPI Chief Complaint: diabetes Details: MANISHA KEITH, is a 74 F who presents to the office today for follow up. A1C is 8.8% improved from 11.4% She is taking Humulin R U-500 bid. She is wearing Mitzi CGM. She complains of being sleepy and sleeping too much. ROS Const Constitutional: Positive for fatigue and abnormal sleep pattern; No weight change ENT ENT: No dizziness/vertigo Cardio Cardiology: No chest pain at rest, chest pain with exertion, shortness of breathor palpitations Psych Psychiatric: Positive for abnormal sleep pattern Skin Skin: No wounds Endo Endocrine: Positive for fatigue; No weight change Exam Const General: cooperative, healthy appearing, comfortable, no acute distress, well developed and not cushingoid Nutritional Appearance: well nourished and obese Orientation: alert, awake and oriented x3 HENMT Head: normal to inspection Ears: hearing grossly normal bilaterally Nose: external nose normal Eyes General: appearance normal, both eyes and all related structures Alignment and Position: alignment normal Periorbital: periorbital findings normal Eyelids: eyelids normal Conjunctivae: conjunctivae normal Neck Neck: normal visual inspection Neck mass: No Chest Chest palpation & inspection: normal inspection of the chest Resp Effort & Inspection: normal respiratory effort, able to speak in complete sentences, symmetric chest movement, no audible wheezes and no cough Cardio Rate: regular rate Rhythm: regular rhythm Skin General: no rashes or lesions noted Neuro General: patient alert, patient awake and patient oriented x3 Cranial Nerves: CN's II-XI intact bilaterally Cognition: normal cognition Speech: speech normal Gait: normal gait Motor: muscle tone normal throughout Extrem General: no edema Psych Appearance: grossly normal Mental Status: mental status grossly normal Mood: congruent mood Affect: normal affect Speech and Movement: speech and movement normal Attitude: cooperative Thought Process: normal Thought Content: normal Judgment: judgment good Results POC A1C POC A1C 8.8 % Last Edit by Xavier Jessica RN on 01/21/25 14:08 Clinical Quality Measures Falls Risk Screening/Assistive Devices Have you fallen in the past year?: No Assessment and Plan Assessment and Plan (1) Diabetes: Status: Chronic Qualifiers: Diabetes mellitus type: type 2 Diabetes mellitus technician terminal and repeater insulin use:with chcf use Diabetes mellitus complication status: with hyperglycemia Qualified Code(s): E11.65 - Type 2 diabetes mellitus with hyperglycemia; Z79.4 -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 (current) use of insulin Plan: Improving control. Change insulin to 65-0-25-0 (2) Hyperlipidemia: Status: Chronic Qualifiers: Hyperlipidemia type: unspecified Qualified Code(s): E78.5 - Hyperlipidemia, unspecified Plan: Continue statin (3) Osteoporosis: Status: Chronic Qualifiers: Osteoporosis type: unspecified Presence of current pathological fracture: unspecified Qualified Code(s): M81.0 - Age-related osteoporosis without current pathological fracture Plan: Continue Reclast for 5 years (4) Obesity: Status: Chronic Qualifiers: Obesity type: due to excess calories Obesity classification: adult class 2 (BMI 35 - 39.9) Serious obesity comorbidity presence: with serious comorbidity Body mass index: BMI 37.0-37.9 Qualified Code(s): E66.01 - Morbid (severe) obesity due to excess calories; Z68.37 - Body mass index [BMI] 37.0-37.9, adult Plan: Nutritional counseling provided, avoid flour, sugar, and artificial sweeteners. She isn't ready to give up her carbs I have spent [23] minutes today reviewing labs, records and history. Time includes coordinating care, interpretation of tests, discussion with patient's other health care providers via telephone. This also includes time I spent with the patient for exam, treatment plan and education as well as documenting clinical information. I am providing longitudinal care Orders: Orders POC A1C Today E11.65 - Type 2 diabetes mellitus with hyperglycemia, Z79.4 - 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 (current) useof insulin Vitamin D,25 Hydroxy Today E03.9 - Hypothyroidism, unspecified, E55.9 - Vitamin D deficiency, unspecified Medications: Refilled cholecalciferol (vitamin D3) 1,250 mcg PO QWEEK 12 caps 1RF Coding Level of Care Code Off vis,est,level 3 Extra Time Spent Extra Time Spent Extra Time Spent: G2211 Diagnoses Type 2 diabetes mellitus with hyperglycemia, with long-term current use of insulin E11.65; Z79.4 Diabetes mellitus type: type 2 Diabetes mellitus technician terminal and repeater insulin use: with technician terminal and repeater use Diabetes mellitus complication status: with hyperglycemia Hyperlipidemia, unspecified hyperlipidemia type E78.5 Hyperlipidemia type: unspecified Osteoporosis, unspecified osteoporosis type, unspecified pathological fracture presence M81.0 Osteoporosis type: unspecified Presence of current pathological fracture: unspecified Class 2 severe obesity due to excess calories with serious comorbidity and body mass index (BMI) of37.0 to 37.9 in adult E66.01; Z68.37 Obesity type: due to excess calories Obesity classification: adult class 2 (BMI 35 - 39.9) Serious obesity comorbidity presence: with serious comorbidity Body mass index: BMI 37.0-37.9 Additional Codes Extra Time Spent - Extra Time Spent: G2211 (G2211) 01/21/25 1422 Date _ Charles Chi MD Cosigner Signature: Date (if applicable) CC: Dr. Ilir Hernández MD ~ [facility] [id number] Progress note Author Charles Chi [facility] Note Date/Time January 21, 2025 2:22p [facility] [address] [place] [address]. [address] [place] [address] OFFICE VISIT Date of Service: 01/21/25 MR#: [id number] Acct: [id number] Name: MANISHA KEITH Rep #: [id number] : 1950 Provider: Dr. Charles Chi MD Age/Sex: 74/F Location: [facility] [place], [place] Status: Signed Intake Vital Signs 10/08/24 15:00 01/21/25 13:56 Height 5 ft 2 in 5 ft 2 in Weight: 198 lb 2 oz 194 lb 8 oz BMI 36.2 35.5 BP 136/77 H 151/83 H Blood Pressure Location Rt brachial Rt brachial Position Sitting Sitting Pulse 108 H 91 Pulse Source Monitor Monitor Pulse Oximetry (%) 93 93 Oxygen Delivery Method room air room air Intake Visit Reasons: 2 M FU Chief Complaint: diabetes Is patient in pain?: No Allergies JESENIA Inhibitors Allergy (Intermediate, Verified 01/21/25 14:01) Cough adhesive tape Allergy (Intermediate, Verified 01/21/25 14:01) blisters dulaglutide (From Trulicity) Allergy (Intermediate, Verified 01/21/25 14:01) Gastroparesis Dressing: Non-Medicated (elastic) Allergy (Verified 01/21/25 14:01) Rash NSAIDS (Non-Steroidal Anti-Inflamma Allergy (Verified 01/21/25 14:01) Other Latex, Natural Rubber Adverse Reaction (Mild, Verified 01/21/25 14:01) RASH Medications ?Medication ?Instructions ?Recorded ?Confirmed ?Type fluticasone propionate 50 1 spray intranasal DAILY PRN NASAL 01/30/14 01/21/25 History mcg/actuation nasal CONGESTION spray,suspension methotrexate sodium 2.5 mg tablet 20 mg PO TEJADA BREAST C ANCER 04/16/17 01/21/25 History escitalopram oxalate 10 mg tablet 10 mg PO DAILY PRN D EPRESSION 06/05/21 01/21/25 History (Lexapro) folic acid 1 mg tablet 2 mg PO DAILY SUPPLEMENT 01/21/25 History hydrochlorothiazide 12.5 mg capsule 12.5 mg PO DAILY B LOOD PRESSURE 06/05/21 01/21/25 History losartan 100 mg tablet 100 mg PO DAILY BLOOD PRESSU RE 06/05/21 01/21/25 History aspirin 81 mg tablet,delayed 81 mg PO DAILY HEART HEAL TH 02/05/22 01/21/25 History release (Adult Low Dose Aspirin) gabapentin 300 mg capsule 300 mg PO QHS NEUROPATHY 01/21/25 History oxybutynin chloride 10 mg 20 mg PO DAILY OVERACTIVE BL ADDER 02/05/22 01/21/25 History tablet,extended release 24 hr metoprolol succinate 100 mg 100 mg PO DAILY BLOOD PRES SURE 02/24/22 01/21/25 History tablet,extended release 24 hr pen needle, diabetic 32 gauge x #100 ea 11/26/2210/08 Rx 32 (BD Ultra-Fine Tish Pen Needle) atorvastatin 20 mg tablet 20 mg PO DAILY CHOLESTEROL 1 08/21/22 01/21/25 History metaxalone 800 mg tablet 800 mg PO TID PRN MUSCLE EXPLOSIVE TECHNICIAN MPS 06/21/23 01/21/25 History insulin regular hum U-500 conc 500 See Rx Instructions subcut TIDCM 12/28/23 01/21/25 History unit/mL(3 mL) subcut pen (Humulin diabetes R U-500 (Conc) Insulin Kwikpen) zoledronic acid 5 mg/100 mL in See Rx Instructions .Ro telida ONCE 08/30/24 01/21/25 Rx mannitol 5 %-water intravenous #100 mL piggybck blood sugar diagnostic (OneTouch #150 ea 11/14/24 Rx Verio test strips) blood-glucose,repairer cylinder heads,cont #1 ea 11/14/24 Rx (FreeStyle Mitzi 3 [place]) albuterol sulfate 90 mcg/actuation 2 puff inhalation Q 4 PRN wheezing 01/21/25 01/21/25 History aerosol inhaler ammonium lactate 12 % lotion topical PRN 01/21/2505/09 History cholecalciferol (vitamin D3) 1,250 1,250 mcg PO QWEEK #12 caps 01/21/25 01/21/25 Rx mcg (50,000 unit) capsule pantoprazole 40 mg tablet,delayed 40 mg PO QDAY 01/21/25 History release Have you fallen in the past year?: No [facility] Medical History Depression Ambulates with cane High cholesterol CPAP (continuous positive airway pressure) dependence Closed left hip fracture Osteoporosis Former smoker Sleep apnea Asthma COPD (chronic obstructive pulmonary disease) Essential hypertension History of gastrostomy tube placement Wears glasses Wears dentures History of Clostridium difficile infection Cancer Anxiety Easy bruising Injury of head and neck Restless legs Loss of consciousness Dietary restriction Shortness of breath on exertion Chronic cough History of stress test History of edema Leg cramps History of Holter monitoring Cardiology follow-up encounter History of vaginal delivery Urinary incontinence Internal hemorrhoids History of cervical cancer Diverticulosis Obesity Vision problems Pancreatitis Osteoarthritis Neuropathy IBS (irritable bowel syndrome) Recurrent infections Hives Calcium deficiency Gastrointestinal problem Gall stone Chronic bronchitis Carpal tunnel syndrome Cataract Breast cancer Breast lump UTI (urinary tract infection) Back problem Arthritis Seasonal allergies GERD (gastroesophageal reflux disease) OAB (overactive bladder) Rhabdomyolysis (04/2017) MSSA (methicillin susceptible Staphylococcus aureus) pneumonia Allergic rhinitis Diabetes mellitus, type II Inflammatory polyarthritis Surgical History History of repair of left hip joint History of ERCP S/P cholecystectomy History of nasal cauterization History of colonoscopy History of appendectomy History of left mastectomy History of hysterectomy Family History Other Alcohol abuse Anxiety Arthritis Asthma defect COPD (chronic obstructive pulmonary disease) Cancer Diabetes High cholesterol Hypertension Seizures Social History Smoking Status: Former smoker alcohol intake: current alcohol intake frequency: 0-2 drinks per day substance use type: does not use what type of physical activity do you participate in: none HPI HPI Chief Complaint: diabetes Details: MANISHA KEITH, is a 74 F who presents to the office today for follow up. A1C is 8.8% improved from 11.4% She is taking Humulin R U-500 bid. She is wearing Mitzi CGM. She complains of being sleepy and sleeping too much. ROS Const Constitutional: Positive for fatigue and abnormal sleep pattern; No weight change ENT ENT: No dizziness/vertigo Cardio Cardiology: No chest pain at rest, chest pain with exertion, shortness of breathor palpitations Psych Psychiatric: Positive for abnormal sleep pattern Skin Skin: No wounds Endo Endocrine: Positive for fatigue; No weight change Exam Const General: cooperative, healthy appearing, comfortable, no acute distress, well developed and not cushingoid Nutritional Appearance: well nourished and obese Orientation: alert, awake and oriented x3 HENMT Head: normal to inspection Ears: hearing grossly normal bilaterally Nose: external nose normal Eyes General: appearance normal, both eyes and all related structures Alignment and Position: alignment normal Periorbital: periorbital findings normal Eyelids: eyelids normal Conjunctivae: conjunctivae normal Neck Neck: normal visual inspection Neck mass: No Chest Chest palpation & inspection: normal inspection of the chest Resp Effort & Inspection: normal respiratory effort, able to speak in complete sentences, symmetric chest movement, no audible wheezes and no cough Cardio Rate: regular rate Rhythm: regular rhythm Skin General: no rashes or lesions noted Neuro General: patient alert, patient awake and patient oriented x3 Cranial Nerves: CN's II-XI intact bilaterally Cognition: normal cognition Speech: speech normal Gait: normal gait Motor: muscle tone normal throughout Extrem General: no edema Psych Appearance: grossly normal Mental Status: mental status grossly normal Mood: congruent mood Affect: normal affect Speech and Movement: speech and movement normal Attitude: cooperative Thought Process: normal Thought Content: normal Judgment: judgment good Results POC A1C POC A1C 8.8 % Last Edit by Xavier Jessica RN on 01/21/25 14:08 Clinical Quality Measures Falls Risk Screening/Assistive Devices Have you fallen in the past year?: No Assessment and Plan Assessment and Plan (1) Diabetes: Status: Chronic Qualifiers: Diabetes mellitus type: type 2 Diabetes mellitus technician terminal and repeater insulin use:with chcf use Diabetes mellitus complication status: with hyperglycemia Qualified Code(s): E11.65 - Type 2 diabetes mellitus with hyperglycemia; Z79.4 -skilled nursing (current) use of insulin Plan: Improving control. Change insulin to 65-0-25-0 (2) Hyperlipidemia: Status: Chronic Qualifiers: Hyperlipidemia type: unspecified Qualified Code(s): E78.5 - Hyperlipidemia, unspecified Plan: Continue statin (3) Osteoporosis: Status: Chronic Qualifiers: Osteoporosis type: unspecified Presence of current pathological fracture: unspecified Qualified Code(s): M81.0 - Age-related osteoporosis without current pathological fracture Plan: Continue Reclast for 5 years (4) Obesity: Status: Chronic Qualifiers: Obesity type: due to excess calories Obesity classification: adult class 2 (BMI 35 - 39.9) Serious obesity comorbidity presence: with serious comorbidity Body mass index: BMI 37.0-37.9 Qualified Code(s): E66.01 - Morbid (severe) obesity due to excess calories; Z68.37 - Body mass index [BMI] 37.0-37.9, adult Plan: Nutritional counseling provided, avoid flour, sugar, and artificial sweeteners. She isn't ready to give up her carbs I have spent [23] minutes today reviewing labs, records and history. Time includes coordinating care, interpretation of tests, discussion with patient's other health care providers via telephone. This also includes time I spent with the patient for exam, treatment plan and education as well as documenting clinical information. I am providing longitudinal care Orders: Orders POC A1C Today E11.65 - Type 2 diabetes mellitus with hyperglycemia, Z79.4 - 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 (current) use of insulin Vitamin D,25 Hydroxy Today E03.9 - Hypothyroidism, unspecified, E55.9 - Vitamin D deficiency, unspecified Medications: Refilled cholecalciferol (vitamin D3) 1,250 mcg PO QWEEK 12 caps 1RF Coding Level of Care Code Off vis,est,level 3 Extra Time Spent Extra Time Spent Extra Time Spent: G2211 Diagnoses Type 2 diabetes mellitus with hyperglycemia, with long-term current use of insulin E11.65; Z79.4 Diabetes mellitus type: type 2 Diabetes mellitus chcf insulin use: with chcf use Diabetes mellitus complication status: with hyperglycemia Hyperlipidemia, unspecified hyperlipidemia type E78.5 Hyperlipidemia type: unspecified Osteoporosis, unspecified osteoporosis type, unspecified pathological fracture presence M81.0 Osteoporosis type: unspecified Presence of current pathological fracture: unspecified Class 2 severe obesity due to excess calories with serious comorbidity and body mass index (BMI) of 37.0 to 37.9 in adult E66.01; Z68.37 Obesity type: due to excess calories Obesity classification: adult class 2 (BMI 35 - 39.9) Serious obesity comorbidity presence: with serious comorbidity Body mass index: BMI 37.0-37.9 Additional Codes Extra Time Spent - Extra Time Spent: G2211 (G2211) 01/21/25 1422 <Electronically signed by Charles Chi MD> Date _ Charles Chi MD Cosigner Signature: Date (if applicable) CC: Dr. Ilir Hernández MD ~ [facility] Work Phone: [phone]) 389-757805-08-2025 NoteHNO ID: [id number] Author: DUTCH HAWK, ? Service: ? Author Type: Physician Type: Progress Notes Filed: 12/20/2024 13:39 Note Text: Last saw pcp: 09/26/24 Subjective: Patient presents to clinic c/o painful toenails. They state that the nails are especially painful with shoe gear and pressure. Patient states that nails b/l hallux are painful. Patient admits to being diabetic. No other pedal complaints at this time. Patient states no change in medications or medical history since last visit. Objective: Patient presents to clinic ambulating in [facility] Vasc: DP and PT pulses are palpable bilateral. CFT is less than 5 seconds bilateral. Skin temperature is warm to cool proximal to distal bilateral. There is no edema or varicosities noted. Neuro: Protective sensation is intact to the foot and toes when tested with the 5.07 SWM bilateral. Vibratory sensation is slightly decreased at the hallux IPJ bilateral. The hallux is downgoing bilateral. Derm: Nails 1-5 b/l are painful, discolored-yellow, thick, crumbly, dystrophic and with subungal debris. Skin is of normal turgor, texture and hair growth is decreased bilateral. There are no hyperkeratosis, ulcerations, scars, verruca or other lesions noted. Ortho: Muscle strength is 5/5 for all pedal groups tested. Ankle joint DF is decreased with the knee extended with no pain or crepitus noted. 1st MPJ ROM is decreased bilateral. Assessment: (B35.1) Onychomycosis (primary encounter diagnosis) (L60.0) Onychocryptosis (E11.42) Diabetic polyneuropathy associated with type 2 diabetes mellitus (HCC) (M79.675) Pain in toe of left foot (M79.674) Pain in toe of right foot Plan: Patient was seen and evaluated. Nails 1-5 bilateral were debrided in length and thickness. Discussed possible removal of b/l hallux nail via chemical matrixectomy in the future. Patient may consider. Patient was instructed on the continued importance of diabetic foot care along with proper diet and keeping their blood sugar under control to prevent complications. I stressed the importance of avoiding barefoot walking, wearing good shoes and inspection of feet. Patient is to RTC in 3-4 months. Dutch Rustyjerome [facility]05-08-2025 History of Present illness Narrative* Dutch Hawk - 12/20/2024 1:20 PM EDT Last saw pcp: 09/26/24 Subjective: Patient presents to clinic c/o painful toenails. They state that the nails are especially painful with shoe gear and pressure. Patient states that nails b/l hallux are painful. Patient admits to being diabetic. No other pedal complaints at this time. Patient states no change in medications or medical history since last visit. Objective: Patient presents to clinic ambulating in [facility] Vasc: DP and PT pulses are palpable bilateral. CFT is less than 5 seconds bilateral. Skin temperature is warm to cool proximal to distal bilateral. There is no edema or varicosities noted. Neuro: Protective sensation is intact to the foot and toes when tested with the 5.07 SWM bilateral.Vibratory sensation is slightly decreased at the hallux IPJ bilateral. The hallux is downgoing bilateral. Derm: Nails 1-5 b/l are painful, discolored-yellow, thick, crumbly, dystrophic and with subungal debris. Skin is of normal turgor, texture and hair growth is decreased bilateral. There are no hyperkeratosis, ulcerations, scars, verruca or other lesions noted. Ortho: Muscle strength is 5/5 for all pedal groups tested. Ankle joint DF is decreased with the knee extended with no pain or crepitus noted. 1st MPJ ROM is decreased bilateral. Assessment: (B35.1) Onychomycosis (primary encounter diagnosis) (L60.0) Onychocryptosis (E11.42) Diabetic polyneuropathy associated with type 2 diabetes mellitus (HCC) (M79.675) Pain in toe of left foot (M79.674) Pain in toe of right foot Plan: Patient was seen and evaluated. Nails 1-5 bilateral were debrided in length and thickness. Discussed possible removal of b/l hallux nail via chemical matrixectomy in the future. Patient may consider. Patient was instructed on the continued importance of diabetic foot care along with proper diet andkeeping their blood sugar under control to prevent complications. I stressed the importance of avoiding barefoot walking, wearing good shoes and inspection of feet. Patient is to RTC in 3-4 months. Dutch Hawk DPM * Juan Peralta RN - 12/20/2024 12:59 PM EDT Patient presents with: Left Foot - Established Patient, Follow Up, Diabetic Foot Care Right Foot - Established Patient, Follow Up, Diabetic Foot Care Patient presents for follow up diabetic foot/nail care. BAUDILIO 08/23/24 [facility] Instructions* Patient Instructions* Dutch Hawk - 12/20/2024 1:20 PM EDT Diabetes Foot Care Instructions When you have diabetes, proper foot care is very important. Poor foot care may lead to amputation of a foot or leg. As a person with diabetes, you are more vulnerable to foot problems, because diabetes can damage your nerves and reduce blood flow to your feet. Here are some diabetes foot care tips to follow: Wash and Dry Your Feet Daily Use mild soaps Use warm water Pat your skin dry; do not rub. Thoroughly dry your feet. After washing, use lotion on your feet to prevent cracking. Do not put lotion between your toes. Examine Your Feet Each Day Check the tops and bottoms of your feet. Have someone else look at your feet if you cannot see them. Check for dry, cracked skin. Look for blisters, cuts, scratches, or other sores. Check for redness, increased warmth, or tenderness when touching any area of your feet. Check for ingrown toenails, corns, and calluses. If you get a blister or sore from your shoes, do not pop it. Apply a bandage and wear a differentpair of shoes. Take Care of Your Toenails Cut toenails after bathing, when they are soft. Cut toenails straight across and smooth with a nail file. Avoid cutting into the corners of toes. Do not cut cuticles. If you have neuropathy (or decreased sensation in your feet) a saw man should always cut your toenails. Be Careful When Exercising Walk and exercise in comfortable shoes. Do not exercise when you have open sores on your feet. Protect Your Feet With Shoes and Socks Never go barefoot. Always protect your feet by wearing shoes or hard-soled slippers or footwear. Avoid shoes with high heels and pointed toes. Avoid shoes that expose your toes or heels (such as open-toed shoes or sandals). These types of shoes increase your risk for injury and potential infections. Try on new footwear with the type of socks you usually wear. Do not wear new shoes for more than an hour at a time. Change your socks daily. Look and feel inside your shoes before putting them on to make sure there are no foreign objects orrough areas. Avoid tight socks. Wear natural-fiber socks (cotton, wool, or a cotton-wool blend). Wear special shoes if your health care provider recommends them. Wear shoes/boots that will protect your feet from various weather conditions (cold, moisture, etc.). Make sure your shoes fit properly. If you have neuropathy (nerve damage), you may not notice that your shoes are too tight. Perform the footwear test described below. Footwear Test Use this simple test to see if your shoes fit correctly: Stand on a piece of paper. (Make sure you are standing and not sitting, because your foot changes shape when you stand.) Trace the outline of your foot. Trace the outline of your shoe. Compare the tracings: Is the shoe too narrow? Is your foot crammed into the shoe? The shoe should be at least 1/2 inch longer than your longest toe and as wide as your foot. Proper Shoe Choices The following types of shoes are best for people with diabetes Closed toes and heels Leather uppers without a seam inside At least 1/2 inch extra space at the end of your longest toe Inside of shoe should be soft with no rough areas Outer sole should be made of stiff material Shoes should be at least as wide as your feet Tips for Foot Care in Diabetes Don't wait to treat a minor foot problem if you have diabetes. Follow your health care provider's guidelines and first aid guidelines. Report foot injuries and infections to your health care provider immediately. Check water temperature with your elbow, not your foot. Do not use a heating pad on your feet. Do not cross your legs. Do not self-treat your corns, calluses, or other foot problems. Go to your health care provider or saw man to treat these conditions. documented in [facility] NoteHNO ID: [id number] Author: JUAN PERALTA RN Service: ? Author Type: Registered Nurse Type: Progress Notes Filed: 12/20/2024 13:39 Note Text: Patient presents with: Left Foot - Established Patient, Follow Up, Diabetic Foot Care Right Foot - Established Patient, Follow Up, Diabetic Foot Care Patient presents for follow up diabetic foot/nail care. BAUDILIO 08/23/24[facility]04-16-2025 History of Present illness Narrative* Bradford Holt Mammo Tech - 11/28/2024 1:00 PM EDT Radiology Service Progress Note PATIENT NAME: Manisha Keith DATE OF SERVICE: November 28, 2024 TIME: 1:26 PM PATIENT IDENTITY VERIFICATION COMPLETED USING TWO (2) IDENTIFIERS: Name and Date of confirmedby patient verbally. FALL SCREENING: Has the patient had 2 falls in the last year or 1 fall with injury or currently using an Ambulatory Assistive Device (Walker, Cane, Wheelchair, Crutches, etc.)? No PATIENT GENDER DATA: Assigned female at . status: : No status:NO. PATIENT RELEVANT IMPLANT DATA REVIEWED: Not Applicable PATIENT PRESENTS WITH AN IMPLANTABLE OR ATTACHED CORPORATE COUNSEL: No RADIOLOGY DEPARTMENT: Mammography PERIPHERAL IV DATA: Not applicable SIGNED BY: Svetlana Rogers November 28, 2024 1:26 PM documented in this encounterW[facility]04-16-2025 NoteHNO ID: [id number] Author: BRADFORD HOLT Mammo Tech Service: ? Author Type: Technologist Type: Progress Notes Filed: 11/28/2024 13:27 Note Text: Radiology Service Progress Note PATIENT NAME: Manisha Keith DATE OF SERVICE: November 28, 2024 TIME: 1:26 PM PATIENT IDENTITY VERIFICATION COMPLETED USING TWO (2) IDENTIFIERS: Name and Date of confirmed by patient verbally. FALL SCREENING: Has the patient had 2 falls in the last year or 1 fall with injury or currently using an Ambulatory Assistive Device (Walker, Cane, Wheelchair, Crutches, etc.)? No PATIENT GENDER DATA: Assigned female at . status: : No status: NO. PATIENT RELEVANT IMPLANT DATA REVIEWED: Not Applicable PATIENT PRESENTS WITH AN IMPLANTABLE OR ATTACHED CORPORATE COUNSEL: No RADIOLOGY DEPARTMENT: Mammography PERIPHERAL IV DATA: Not applicable SIGNED BY: Svetlana Rogers November 28, 2024 1:26 [facility]03-17-2025 Telephone encounter Note* Telephone Encounter - Deepti Sawyer - 10/29/2024 2:31 PM EDT Patient has been identified by name and date of : Yes, Provider kevin Date 10/29/2024 Time 02:34:00 Patient phones for refill(s): Requested Prescriptions Pending Prescriptions Disp Refills oxybutynin ER (DITROPAN XL) 10 mg 24 hr tablet 180 tablet 1 Sig: Take 2 tablets by mouth once daily. Date of last office visit in primary care: Visit date not found Date of next office visit in primary care: Visit date not found Please advise. Thank you. Deepti Sawyer. [facility]03-17-20[facility] Miscellaneous Notes* Telephone Encounter - Deepti Sawyer - 10/29/2024 2:31 PM EDT Patient has been identified by name and date of : Yes, Provider kevin Date 10/29/2024 Time 02:34:00 Patient phones for refill(s): Requested Prescriptions Pending Prescriptions Disp Refills oxybutynin ER (DITROPAN XL) 10 mg 24 hr tablet 180 tablet 1 Sig: Take 2 tablets by mouth once daily. Date of last office visit in primary care: Visit date not found Date of next office visit in primary care: Visit date not found Please advise. Thank you. Deepti Sawyer. documented in this encounterW[facility]03-07-2025 Telephone encounter Note * Telephone Encounter - Yunier Owen MD - 10/19/2024 4:19 PM EST Spoke to patient regarding official result of her chest CT. The new nodule is 6.7 mm with surrounding groundglass and is too small for PET scan or biopsy. She will need an interim follow-up CT. [facility]03-07-2025 Miscellaneous Notes* Telephone Encounter - Yunier Owen MD - 10/19/2024 4:19 PM EST Spoke to patient regarding official result of her chest CT. The new nodule is 6.7 mm with surrounding groundglass and is too small for PET scan or biopsy. She will need an interim follow-up CT. documented in this encounterW[facility]03-07-2025 Telephone encounter Note * Telephone Encounter - Lotus Philippe RN - 10/19/2024 9:46 AM EST Patient calling in asking about the results of her CT that was done 10/12/24. Lotus Philippe RN [facility]03-07-2025 Miscellaneous Notes* Telephone Encounter - Lotus Philippe RN - 10/19/2024 9:46 AM EST Patient calling in asking about the results of her CT that was done 10/12/24. Lotus Philippe RN documented in this encounterW[facility]03-06-2025 Telephone encounter Note * Telephone Encounter - Kerry Spivey MA - 10/18/2024 10:30 AM EST Patient was made aware of the results. Patient verbalizes understanding. Kerry Spivey Ma [facility]03-06-2025 Miscellaneous Notes* Telephone Encounter - Kerry Spivey MA - 10/18/2024 10:30 AM EST Patient was made aware of the results. Patient verbalizes understanding. Kerry Spivey Ma * Telephone Encounter - Kerry Spivey MA - 10/18/2024 10:29 AM EST ----- Message from Ilir Hernández MD sent at 10/18/2024 8:34 AM EST ----- Let her know her urine does NOT show a uti. Ilir Hernández MD documented in this encounterW[facility]03-06-2025 Telephone encounter Note * Telephone Encounter - Kerry Spivey MA - 10/18/2024 10:29 AM EST ----- Message from Ilir Hernández MD sent at 10/18/2024 8:34 AM EST ----- Let her know her urine does NOT show a uti. Ilir Hernández MD [facility]03-05-20[facility] Telephone encounter Note* Telephone Encounter - My Fonseca MA - 10/17/2024 9:43 AM EST Patient informed and verbalized understanding. Does have a cough off and on. Refers to having a lotof mucus in the morning but once she coughs it up she's ok. She does already see Dr. Owen in Pulmonary. Transferred to scheduling for appointment. My Fonseca MA [facility]03-05-2025 Miscellaneous Notes* Telephone Encounter - My Fonseca MA - 10/17/2024 9:43 AM EST Patient informed and verbalized understanding. Does have a cough off and on. Refers to having a lotof mucus in the morning but once she coughs it up she's ok. She does already see Dr. Owen in Pulmonary. Transferred to scheduling for appointment. My Fonseca MA * Telephone Encounter - Ilir Hernández MD - 10/17/2024 8:34 AM EST Urine shows just some surface contamination so far. Waiting on the final culture. Not a definite uti. Her ct scan shows several nodules. Any cough or fever? Needs to see pulmonary documented in this encounterW[facility]03-05-2025 Telephone encounter Note * Telephone Encounter - Ilir Hernández MD - 10/17/2024 8:34 AM EST Urine shows just some surface contamination so far. Waiting on the final culture. Not a definite uti. Her ct scan shows several nodules. Any cough or fever? Needs to see pulmonary [facility]03-04-[facility] Telephone encounter Note* Telephone Encounter - Areli Salas LPN - 10/16/2024 2:36 PM EST Patient notified. [facility]03-04-20[facility] Miscellaneous Notes* Telephone Encounter - Areli Salas LPN - 10/16/2024 2:36 PM EST Patient notified. * Telephone Encounter - Ilir Hernández MD - 10/16/2024 12:40 PM EST Ordered, however, let her know diagnosis and treatment can be delayed by as much as a day or two doing it this way. If bad, needs seen here or urgent care * Telephone Encounter - Maria Eugenia Ferrari RN - 10/16/2024 11:29 AM EST Patient calls for urinary frequency and painful urination. Nurse triage completed and recommends see PCP or PCP triage within 4 hours. Patient coming in for TSH lab and wants completed with that. Offered 1 pm appt with available provider but patient still declines. Reason for Disposition Diabetes mellitus or weak immune system (e.g., HIV positive, cancer chemo, splenectomy, organ transplant, chronic steroids) Answer Assessment - Initial Assessment Questions 1. SEVERITY: - MODERATE (4-7): Interferes with normal activities. 2. FREQUENCY: Since yesterday 3. PATTERN:With each urination 4. ONSET: Yesterday 5. FEVER: No 6. PAST UTI: UTI 7. CAUSE: UTI 8. OTHER SYMPTOMS: Urinary frequency. No blood in urine, flank pain, genital sores, urgency, vaginal discharge Protocols used: Urination Pain - [id number] documented in this encounterW[facility]03-04-2025 Telephone encounter Note * Telephone Encounter - Ilir Hernández MD - 10/16/2024 12:40 PM EST Ordered, however, let her know diagnosis and treatment can be delayed by as much as a day or two doing it this way. If bad, needs seen here or urgent care [facility]03-04-2025 Telephone encounter Note* Telephone Encounter - Maria Eugenia Ferrari RN - 10/16/2024 11:29 AM EST Patient calls for urinary frequency and painful urination. Nurse triage completed and recommends see PCP or PCP triage within 4 hours. Patient coming in for TSH lab and wants completed with that. Offered 1 pm appt with available provider but patient still declines. Reason for Disposition Diabetes mellitus or weak immune system (e.g., HIV positive, cancer chemo, splenectomy, organ transplant, chronic steroids) Answer Assessment - Initial Assessment Questions 1. SEVERITY: - MODERATE (4-7): Interferes with normal activities. 2. FREQUENCY: Since yesterday 3. PATTERN:With each urination 4. ONSET: Yesterday 5. FEVER: No 6. PAST UTI: UTI 7. CAUSE: UTI 8. OTHER SYMPTOMS: Urinary frequency. No blood in urine, flank pain, genital sores, urgency, vaginal discharge Protocols used: Urination Pain - [id number] [facility]02-28-[facility] History of Present illness Narrative* Yunier Owen MD - 10/12/2024 2:15 PM EST Images from the original note were not included. . Respiratory [place] Note Patient name: Manisha Keith PCP: Ilir Hernández MD CC: Follow-up chest CT HPI: Manisha Keith 74 year old female former 22 pack year smoker, quitting in 2000 with PMH significant for obesity, childhood asthma, allergies, HLD, inflammatory arthritis, RICARDO on CPAP, DM, HTN, GERD, lung nodule. She was previously seen in cough clinic with etiology believed to be multifactorial including possible asthma, GERD and UACS. Methacholine challenge testing officially negative but patient had 20% drop in FEV1 at last dose. Inhaled therapy supposed to consist of Trelegy Ellipta but she is unable to afford so she was not using any inhaled therapy. At [facility], sent in prescription for Breztri as this would be covered by her insurance and she qualified for assistance program. She never obtained the Breztri and apparently was prescribed Wixela by her primary care physician. She does not use her Wixela on a daily basis, only when I need it. She has chronic cough with some mucusproduction in the morning, mostly clear but occasionally some yellow. Occasional wheezes. No significant dyspnea. With regards to her lung nodule, she has a RUL groundglass nodule, seen by interventional pulmonary for possible navigational bronchoscopy who recommended surveillance. Her CT has showed stability of her groundglass right upper lobe nodule. She presents for follow up of her chest CT which was obtained today. The official reading is pending but to my review shows continued stability of her right upper lobe groundglass nodule but she has a new nodule in her left upper lobe. DATA: Imaging / Diagnostic Studies: 09/2023: Chest CT today: PAST MEDICAL HISTORY Diagnosis Date Allergic rhinitis, cause unspecified Arthritis Asthma Childhood asthma Breast cancer (HCC) age 34-had lump, cancerous cells. no issues since, left Diverticulosis of colon (without mention of hemorrhage) Ground glass opacity present on imaging of lung Heme positive stool 2011 History of cervical cancer regular Paps for life Hyperlipidemia 2011 Inflammatory polyarthritis (HCC) Dr. 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) Sleep apnea Not on CPAP Type II or unspecified type diabetes mellitus without mention of complication, not stated as uncontrolled Unspecified essential hypertension ALLERGIES Allergen Reactions Jesenia Inhibitors Cough Nsaids (Non-Steroid* GI Upset Tape [Adhesive Tape* Other: See Comments Blisters from surgical tape Trulicity [Dulaglut* Other: See Comments Gastroparesis Blood-Glucose Sensor (FREESTYLE MITZI 3 SENSOR) krystyna Use as directed erythromycin (ROMYCIN) 5 mg/gram (0.5 %) ophthalmic ointment APPLY OINTMENT INTO EACH EYE NIGHTLY pantoprazole DR (PROTONIX) 40 mg tablet Take 1 tablet by mouth once daily. triamcinolone acetonide (KENALOG) 0.1 % cream Apply 1 application to affected area two times a day.Apply to affected area. Location: legs gabapentin (NEURONTIN) 300 mg capsule Take 1 capsule by mouth daily at bedtime. atorvastatin (LIPITOR) 20 mg tablet Take 1 tablet by mouth daily at bedtime. For cholesterol. fluticasone (FLONASE) 50 mcg/actuation nasal spray USE 1 SPRAY IN EACH NOSTRIL ONCE DAILY AT BEDTIME DIRECTED metoprolol succinate ER (TOPROL XL) 100 mg Take 1 tablet by mouth once daily. oxybutynin ER (DITROPAN XL) 10 mg 24 hr tablet Take 2 tablets by mouth once daily. ammonium lactate (LAC-HYDRIN) 12 % lotion Apply to affected area as needed. albuterol HFA (PROVENTIL HFA, VENTOLIN HFA) 90 mcg/actuation inhaler Inhale 2 Puffs as instructed every 4 hours as needed for wheezing/shortness of breath. fluticasone-salmeterol (ADVAIR, WIXELA) 250-50 mcg/dose inhaler Inhale 1 Puff as instructed two times a day. Omeprazole 20 mg TbEC Take by mouth. aspirin, enteric coated (ASPIRIN, ENTERIC COATED) 81 mg EC tablet Take 81 mg by mouth once daily. verapamil SR (CALAN SR) 120 mg CR tablet Take 1 tablet by mouth daily at bedtime. (Patient not taking: Reported on 08/03/2024) HUMULIN R U-500, CONC, KWIKPEN 500 unit/mL (3 mL) inpn 40 units 12pm /10 units sq at 5pm/ 25 units at 10pm. Per Dr. Chi. CPAP/BIPAP/OTHER Type .CPAPSettings into a note to see current settings/supplies/DME information. losartan (COZAAR) 100 mg tablet Take 1 tablet by mouth once daily. escitalopram oxalate (LEXAPRO) 10 mg tablet Take 1 tablet by mouth once daily. FOLDING WALKER WITH 5 WHEELS Use with ambulation blood sugar diagnostic (BLOOD GLUCOSE TEST) test strip Test blood sugar(s) 3 times daily. Dx: Type 2 DM - Uncontrolled E11.65 Insulin: Yes Lancets Test blood sugar(s) 3 times daily. Dx: Type 2 DM - Controlled E11.9 Insulin: Yes cetirizine (ZYRTEC) 10 mg tablet Take 1 tablet by mouth once daily. (Patient not taking: Reported on 09/26/2024) hydroCHLOROthiazide 12.5 mg capsule Take 1 capsule by mouth once daily. FOLIC ACID ORAL Take by mouth. methotrexate 2.5 mg tablet Take 20 mg by mouth every Tuesday. melatonin 3 mg tablet Take 1 tablet at 9PM nightly. insulin needles, DISPOSABLE, (PEN NEEDLE) 31 gauge x 5/16 Use one needle per dose. 4 per day. ondansetron orally disintegrating (ZOFRAN ODT) 4 mg disintegrating tablet DISSOLVE 1 TABLET IN MOUTH THREE TIMES DAILY NEEDED FOR NAUSEA AND VOMITING blood sugar diagnostic (ONETOUCH VERIO TEST STRIPS) test strip Test blood sugar(s) 3-4 times daily.Dx: Other DM Code E11.319 Insulin: Yes Cholecalciferol, Vitamin D3, 50 mcg (2,000 unit) cap Take 1 capsule by mouth once daily. Blood-Glucose Meter monitoring kit Glucose Meter of Choice - Kit - Dx: Type 2 DM - Controlled E11.9 COMPOUNDED PRESCRIPTION Insulin needles-1/2 cc for 100 u Use up to 4 a day fluorometholone (FML LIQUID FILM) 0.1 % ophthalmic suspension Use 2 Drops in the left eye twice daily. Social History Tobacco Use Smoking status: Former Current packs/day: 0.00 Average packs/day: 0.8 packs/day for 30.0 years (22.5 ttl pk-yrs) Types: Cigarettes Start date: 08/15/1970 Quit date: 08/15/2000 Years since quittin.1 Passive exposure: Never Smokeless tobacco: Never Vaping Use Vaping status: Never Used Substance Use Topics Alcohol use: Never Comment: rarely Drug use: No FAMILY HISTORY Problem Relation Age of Onset Alcohol abuse Mother None Father Cave in Stroke Sister Cancer Sister COPD Sister No Known Problems Brother No Known Problems Brother Breast Cancer Maternal Aunt Primary Biliary Cirrhosis Daughter PAST SURGICAL HISTORY Procedure Laterality Date ABDOMINAL SURGERY HX hx of feeding tube inserted APPENDECTOMY HX COLONOSCOPY FLX DX W/COLLJ SPEC WHEN PFRMD 06/26/2009 COLONOSCOPY FLX DX W/COLLJ SPEC WHEN PFRMD 04/10/2019 Colonoscopy COLONOSCOPY SCREENING 02/11/2022 Dr Olivas EGD 2010 EGD 02/11/2022 Dr Olivas ERCP DX COLLECTION SPECIMEN BRUSHING/WASHING 07/23/2008 Cholangiopancreatography (ERCP) ESOPHAGOGASTRODUODENOSCOPY TRANSORAL DIAGNOSTIC 04/10/2019 EGD EYE SURGERY HX L'SCOPE CHOLECYSTECTOMY 12/30/2023 MASTECTOMY Left age 34 Mastectomy - simple PAST SURGICAL HISTORY OF nose cauterized inside PAST SURGICAL HISTORY OF removal of skin cancer from right arm PAST SURGICAL HISTORY OF Left 10/11/[address] Scott Sutton REMOVAL GALLBLADDER 2023 [facility] CORNEO-SCLL SCTJ Bilateral Cataract removal BILATERAL TOTAL ABDOMINAL HYSTERECT W/WO RMVL TUBE OVARY age 27 Hysterectomy, MARQUES cervical cancer, has one ovary left PMH, Social history, family history and surgical history reviewed and updated in EMR REVIEW OF SYSTEMS: CONSTITUTIONAL: No fevers, chills, nightsweats, unintended weight loss HEENT: Denies nasal congestion/sinus symptoms, postnasal drip CARDIOVASCULAR: No chest pain, dyspnea, palpitations. Some edema PULM: See HPI GI: No dysphagia/odynophagia, problematic reflux. PHYSICAL EXAMINATION: BP 138/70 Pulse 84 Resp 16 Wt 195 lb (88.5kg) SpO2 91% General Appearance: Obese female, NAD. Skin: Skin color, texture, turgor normal, no suspicious rashes or lesions. Head: Normocephalic, no masses, lesions, tenderness or abnormalities. Oropharynx: No oral lesions or thrush. Neck: No masses or adenopathy. Lungs: Not labored, normal to percussion, no wheezes or crackles. Heart: Regular rate and rhythm, no murmurs. Extremities: Mild edema, no clubbing. Assessment/Plan: 1. Lung nodule -Await formal radiologist reading. May need PET scan plus or minus biopsy 2. Former cigarette smoker -Continue abstinence 3. Mild persistent asthma, uncomplicated -Not appear to have COPD. Despite official negative methacholine challenge testing symptomatology is suggestive of asthma. She was instructed to use her Wixela twice a day Yunier Owen MD [facility] [place] documented [facility] NoteHNO ID: [id number] Author: YUNIER OWEN MD Service: ? Author Type: Physician Type: Progress Notes Filed: 10/12/2024 17:18 Note Text: . [facility] [place] Note Patient name: Manisha Keith PCP: Ilir Hernández MD CC: Follow-up chest CT HPI: Manisha Keith 74 year old female former 22 pack year smoker, quitting in 2000 with PMH significant for obesity, childhood asthma, allergies, HLD, inflammatory arthritis, RICARDO on CPAP, DM, HTN, GERD, lung nodule. She was previously seen in cough clinic with etiology believed to be multifactorial including possible asthma, GERD and UACS. Methacholine challenge testing officially negative but patient had 20% drop in FEV1 at last dose. Inhaled therapy supposed to consist of Trelegy Ellipta but she is unable to afford so she was not using any inhaled therapy. At [facility], sent in prescription for Breztri as this would be covered by her insurance and she qualified for assistance program. She never obtained the Breztri and apparently was prescribed Wixela by her primary care physician. She does not use her Wixela on a daily basis, only when I need it. She has chronic cough with some mucus production in the morning, mostly clear but occasionally some yellow. Occasional wheezes. No significant dyspnea. With regards to her lung nodule, she has a RUL groundglassnodule, seen by interventional pulmonary for possible navigational bronchoscopy who recommended surveillance. Her CT has showed stability of her groundglass right upper lobe nodule. She presents for follow up of her chest CT which was obtained today. The official reading is pending but to my review shows continued stability of her right upper lobe groundglass nodule but she has a new nodule in her left upper lobe. DATA: Imaging / Diagnostic Studies: 09/2023: Chest CT today: PAST MEDICAL HISTORY Diagnosis Date Allergic rhinitis, cause unspecified Arthritis Asthma Childhood asthma Breast cancer (HCC) age 34-had lump, cancerous cells. no issues since, left Diverticulosis of colon (without mention of hemorrhage) Ground glass opacity present on imaging of lung Heme positive stool 2011 History of cervical cancer regular Paps for life Hyperlipidemia 2011 Inflammatory polyarthritis (HCC) Dr. 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) Sleep apnea Not on CPAP Type II or unspecified type diabetes mellitus without mention of complication, not stated as uncontrolled Unspecified essential hypertension ALLERGIES Allergen Reactions Jesenia Inhibitors Cough Nsaids (Non-Steroid* GI Upset Tape [Adhesive Tape* Other: See Comments Blisters from surgical tape Trulicity [Dulaglut* Other: See Comments Gastroparesis Blood-Glucose Sensor (FREESTYLE MITZI 3 SENSOR) krystyna Use as directed erythromycin (ROMYCIN) 5 mg/gram (0.5 %) ophthalmic ointment APPLY OINTMENT INTO EACH EYE NIGHTLY pantoprazole DR (PROTONIX) 40 mg tablet Take 1 tablet by mouth once daily. triamcinolone acetonide (KENALOG) 0.1 % cream Apply 1 application to affected area two times a day. Apply to affected area. Location: legs gabapentin (NEURONTIN) 300 mg capsule Take 1 capsule by mouth daily at bedtime. atorvastatin (LIPITOR) 20 mg tablet Take 1 tablet by mouth daily at bedtime. For cholesterol. fluticasone (FLONASE) 50 mcg/actuation nasal spray USE 1 SPRAY IN EACH NOSTRIL ONCE DAILY AT BEDTIME DIRECTED metoprolol succinate ER (TOPROL XL) 100 mg Take 1 tablet by mouth once daily. oxybutynin ER (DITROPAN XL) 10 mg 24 hr tablet Take 2 tablets by mouth once daily. ammonium lactate (LAC-HYDRIN) 12 % lotion Apply to affected area as needed. albuterol HFA (PROVENTIL HFA, VENTOLIN HFA) 90 mcg/actuation inhaler Inhale 2 Puffs as instructed every 4 hours as needed for wheezing/shortness of breath. fluticasone-salmeterol (ADVAIR, WIXELA) 250-50 mcg/dose inhaler Inhale 1 Puff as instructed two times a day. Omeprazole 20 mg TbEC Take by mouth. aspirin, enteric coated (ASPIRIN, ENTERIC COATED) 81 mg EC tablet Take 81 mg by mouth once daily. verapamil SR (CALAN SR) 120 mg CR tablet Take 1 tablet by mouth daily at bedtime. (Patient not taking: Reported on 08/03/2024) HUMULIN R U-500, CONC, KWIKPEN 500 unit/mL (3 mL) inpn 40 units 12pm /10 units sq at 5pm/ 25 units at 10pm. Per Dr. Chi. CPAP/BIPAP/OTHER Type .CPAPSettings into a note to see current settings/supplies/DME information. losartan (COZAAR) 100 mg tablet Take 1 tablet by mouth once daily. escitalopram oxalate (LEXAPRO) 10 mg tablet Take 1 tablet by mouth once daily. FOLDING WALKER WITH 5 WHEELS Use with ambulation blood sugar diagnostic (BLOOD GLUCOSE TEST) test strip Test blood (more content not included)...[facility]02-[facility] History of Present illness Narrative* Cherelle Hernández, RT(R) - 10/12/2024 1:00 PM EST Radiology Service Progress Note PATIENT NAME: Manisha Keith DATE OF SERVICE: October 12, 2024 TIME: 3:51 PM PATIENT IDENTITY VERIFICATION COMPLETED USING TWO (2) IDENTIFIERS: Name and Date of confirmedby patient verbally. FALL SCREENING: Has the patient had 2 falls in the last year or 1 fall with injury or currently using an Ambulatory Assistive Device (Walker, Cane, Wheelchair, Crutches, etc.)? No PATIENT GENDER DATA: Assigned female at . status: : No status:NO. PATIENT RELEVANT IMPLANT DATA REVIEWED: Not Applicable PATIENT PRESENTS WITH AN IMPLANTABLE OR ATTACHED CORPORATE COUNSEL: No RADIOLOGY DEPARTMENT: CT; Exam(s) Completed: Chest PERIPHERAL IV DATA: Not applicable SIGNED BY: RT Kaleigh(Clifford) October 12, 2024 3:51 PM documented in this encounterW[facility]02-28-2025 NoteHNO ID: [id number] Author: CHERELLE HERNÁNDEZ RT (R) Service: ? Author Type: Towel Weaver Type: Progress Notes Filed: 10/12/2024 15:51 Note Text: Radiology Service Progress Note PATIENT NAME: Manisha Keith DATE OF SERVICE: October 12, 2024 TIME: 3:51 PM PATIENT IDENTITY VERIFICATION COMPLETED USING TWO (2) IDENTIFIERS: Name and Date of confirmed by patient verbally. FALL SCREENING: Has the patient had 2 falls in the last year or 1 fall with injury or currently using an Ambulatory Assistive Device (Walker, Cane, Wheelchair, Crutches, etc.)? No PATIENT GENDER DATA: Assigned female at . status: : No status: NO. PATIENT RELEVANT IMPLANT DATA REVIEWED: Not Applicable PATIENT PRESENTS WITH AN IMPLANTABLE OR ATTACHED CORPORATE COUNSEL: No RADIOLOGY DEPARTMENT: CT; Exam(s) Completed: Chest PERIPHERAL IV DATA: Not applicable SIGNED BY: EMILI Farris) October 12, 2024 3:51 [facility]02-26-2025 Telephone encounter Note* Telephone Encounter - Gertrudis Newman RN - 10/10/2024 1:14 PM EST The patient has been identified by name and date of : Yes Caregiver verified no other encounters exist for this prescription request: Yes Caregiver confirmed with patient/requestor that no other refills are due, in the near future, with this provider at this time: Yes The last office visit in the department: 09/26/2024 Does the patient have a future office visit with this provider/department: Yes 04/01/2025 Requested Prescriptions Pending Prescriptions Disp Refills Blood-Glucose Sensor (FREESTYLE MITZI 3 SENSOR) krystyna 2 Each 11 Sig: Use as directed Gertrudis Newman RN October 10, 2024 1:14 PM [facility]02-26-[facility] Miscellaneous Notes* Telephone Encounter - Gertrudis Newman RN - 10/10/2024 1:14 PM EST The patient has been identified by name and date of : Yes Caregiver verified no other encounters exist for this prescription request: Yes Caregiver confirmed with patient/requestor that no other refills are due, in the near future, with this provider at this time: Yes The last office visit in the department: 09/26/2024 Does the patient have a future office visit with this provider/department: Yes 04/01/2025 Requested Prescriptions Pending Prescriptions Disp Refills Blood-Glucose Sensor (FREESTYLE MITZI 3 SENSOR) krystyna 2 Each 11 Sig: Use as directed Gertrudis Newman RN October 10, 2024 1:14 PM documented in this encounterW[facility]02-[facility]-2025 Telephone encounter Note * Telephone Encounter - Gertrudis Newman RN - 10/10/2024 12:55 PM EST Patient notified of results and provider's instructions. Patient verbalizes understanding. Gertrudis Newman RN [facility]02-[facility] Miscellaneous Notes* Telephone Encounter - Gertrudis Newman RN - 10/10/2024 12:55 PM EST Patient notified of results and provider's instructions. Patient verbalizes understanding. Gertrudis Newman RN * Telephone Encounter - Kerry Spivey MA - 09/27/2024 5:24 PM EST Patient was made aware of the results. Patient verbalizes understanding. She sees Dr Chi at [facility], last visit from 08/20/24 is scanned in chart. Kerry Spivey Ma * Telephone Encounter - Claire Lancaster APRN.CHRISTA - 09/27/2024 1:36 PM EST Hemoglobin A1c is 10.2. Diabetes is not at all controlled. She has significant cardiovascular risk as this has been uncontrolled for a long time. Would she like to see an trauma doctor? Kidney function is normal. Blood counts are normal. documented in this encounterW[facility]02-25-2025 Telephone encounter Note * Telephone Encounter - My Fonseca MA - 10/09/2024 3:33 PM EST Patient informed and transferred to scheduling. My Fonseca MA [facility]02-[facility] Miscellaneous Notes* Telephone Encounter - My Fonseca MA - 10/09/2024 3:33 PM EST Patient informed and transferred to scheduling. My Fonseca MA * Telephone Encounter - My Fonseca MA - 10/09/2024 3:31 PM EST ----- Message from Ilir Hernández MD sent at 10/09/2024 3:17 PM EST ----- Requires additional views of right breast. Repeat films ordered. Please set up. documented in this encounterW[facility]02-25-2025 Telephone encounter Note * Telephone Encounter - My Fonseca MA - 10/09/2024 3:31 PM EST ----- Message from Ilir Hernández MD sent at 10/09/2024 3:17 PM EST ----- Requires additional views of right breast. Repeat films ordered. Please set up. [facility] Evaluation note* Diagnosis Onset Date Resolution Status Admit Date CKD (chronic kidney disease) stage 3, GFR 30-59 ml/min chronic Februa 2024 3:00pm Diabetes chronic October 08, 2024 3:00pm Obesity chronic October 08, 2024 3:00pm Osteoporosis chronic September 3:00pm Diabetes chronic January 21, 2025 1:48pm Hyperlipidemia chronic January 21, 2025 1:48pm Obesity chronic January 21, 2025 1:48pm Osteoporosis chronic January 21 1:48pm [employer] Work Phone: [phone]) 125-610902-24-2025 History of Present illness Narrative* Wes Henderson, Mammo Tech - 10/08/2024 1:30 PM EST Radiology Service Progress Note PATIENT NAME: Manisha Keith DATE OF SERVICE: October 08, 2024 TIME: 1:44 PM PATIENT IDENTITY VERIFICATION COMPLETED USING TWO (2) IDENTIFIERS: Name and Date of confirmedby patient verbally. FALL SCREENING: Has the patient had 2 falls in the last year or 1 fall with injury or currently using an Ambulatory Assistive Device (Walker, Cane, Wheelchair, Crutches, etc.)? No PATIENT GENDER DATA: Assigned female at . status: : No status:NO. PATIENT RELEVANT IMPLANT DATA REVIEWED: Not Applicable PATIENT PRESENTS WITH AN IMPLANTABLE OR ATTACHED CORPORATE COUNSEL: No RADIOLOGY DEPARTMENT: Mammography PERIPHERAL IV DATA: Not applicable SIGNED BY: Svetlana Ramos October 08, 2024 1:44 PM documented in this encounterWooster [facility]02-24-2025 NoteHNO ID: [id number] Author: WES HENDERSON Mammo Tech Service: ? Author Type: Towel Weaver Type: Progress Notes Filed: 10/08/2024 13:44 Note Text: Radiology Service Progress Note PATIENT NAME: Manisha Keith DATE OF SERVICE: October 08, 2024 TIME: 1:44 PM PATIENT IDENTITY VERIFICATION COMPLETED USING TWO (2) IDENTIFIERS: Name and Date of confirmed by patient verbally. FALL SCREENING: Has the patient had 2 falls in the last year or 1 fall with injury or currently using an Ambulatory Assistive Device (Walker, Cane, Wheelchair, Crutches, etc.)? No PATIENT GENDER DATA: Assigned female at . status: : No status: NO. PATIENT RELEVANT IMPLANT DATA REVIEWED: Not Applicable PATIENT PRESENTS WITH AN IMPLANTABLE OR ATTACHED CORPORATE COUNSEL: No RADIOLOGY DEPARTMENT: Mammography PERIPHERAL IV DATA: Not applicable SIGNED BY: Svetlana Ramos October 08, 2024 1:44 PMCG[facility] Telephone encounter Note* Telephone Encounter - Kerry Spivey MA - 09/27/2024 5:24 PM EST Patient was made aware of the results. Patient verbalizes understanding. She sees Dr Chi at [facility], last visit from 08/20/24 is scanned in chart. Kerry Spivey Ma [facility]02-13-2025 Telephone encounter Note* Telephone Encounter - Claire Lancaster APRN.CNP - 09/27/2024 1:36 PM EST Hemoglobin A1c is 10.2. Diabetes is not at all controlled. She has significant cardiovascular risk as this has been uncontrolled for a long time. Would she like to see an trauma doctor? Kidney function is normal. Blood counts are normal. [facility]02-12-[facility] Instructions* Patient Instructions* Ilir Hernández MD - 09/26/2024 3:34 PM EST Take lexapro or escitalopram regularly. It is not an as needed med. documented in this encounterWooster [facility]02-12-2025 NoteHNO ID: [id number] Author: ILIR HERNÁNDEZ MD Service: ? Author Type: Physician Type: Progress Notes Filed: 09/26/2024 15:34 Note Text: Patient presents with: 6 Month Exam HPI: Patient presents today for office visit for follow up. DM: seeing derm. No longer using a pump. A1c is still high. Encouraged follow up. GERD: Unsure whether or not she is taking Nexium or Prilosec. Having reflux symptoms. Vomiting occasionally. No abdominal pain. No bloody or black stool. Stools are always loose but has been that way since her gallbladder is out. Has known gastroparesis. PSYCH: States she's taking the Lexapro prn for anxiety not daily. Denies any depression symptoms. Suggested that not taking it daily could be contributing to some of her issues. HLD: No myalgias. HTN: Checks BP occ Denies chest pain Shortness of breath with exertion. She feels this is getting slightly worse. Denies headaches and dizziness. Some palpitations. No syncope. Occ edema RICARDO: Does not use her CPAP machine. Can't sleep with machine. Having lots of fatigue. Sleeping often. Awake for a couple hours and then falls back asleep. Refers to sleeping about 20hrs a day. Inquiring about mouth guard for sleep apnea. Discussed seeing dentist. Follows with pulmonary, sleep med and podiatry. Did not keep her last julianne with sleep med. Sees rheumatology. Sees Dr Olivas for gi. Following with steam engineer. Just had labs drawn today. Currently pending. Bone density is ordered. Did not go. Encouraged to follow up. MEDICATIONS: Current Outpatient Medications Medication Sig erythromycin (ROMYCIN) 5 mg/gram (0.5 %) ophthalmic ointment APPLY OINTMENT INTO EACH EYE NIGHTLY triamcinolone acetonide (KENALOG) 0.1 % cream Apply 1 application to affected area two times a day. Apply to affected area. Location: legs gabapentin (NEURONTIN) 300 mg capsule Take 1 capsule by mouth daily at bedtime. atorvastatin (LIPITOR) 20 mg tablet Take 1 tablet by mouth daily at bedtime. For cholesterol. fluticasone (FLONASE) 50 mcg/actuation nasal spray USE 1 SPRAY IN EACH NOSTRIL ONCE DAILY AT BEDTIME DIRECTED metoprolol succinate ER (TOPROL XL) 100 mg Take 1 tablet by mouth once daily. oxybutynin ER (DITROPAN XL) 10 mg 24 hr tablet Take 2 tablets by mouth once daily. ammonium lactate (LAC-HYDRIN) 12 % lotion Apply to affected area as needed. albuterol HFA (PROVENTIL HFA, VENTOLIN HFA) 90 mcg/actuation inhaler Inhale 2 Puffs as instructed every 4 hours as needed for wheezing/shortness of breath. fluticasone-salmeterol (ADVAIR, WIXELA) 250-50 mcg/dose inhaler Inhale 1 Puff as instructed two times a day. aspirin, enteric coated (ASPIRIN, ENTERIC COATED) 81 mg EC tablet Take 81 mg by mouth once daily. HUMULIN R U-500, CONC, KWIKPEN 500 unit/mL (3 mL) inpn 40 units 12pm /10 units sq at 5pm/ 25 units at 10pm. Per Dr. Chi. CPAP/BIPAP/OTHER Type .CPAPSettings into a note to see current settings/supplies/DME information. losartan (COZAAR) 100 mg tablet Take 1 tablet by mouth once daily. Blood-Glucose Sensor (LumavitaSTYLE MITZI 3 SENSOR) krystyna Use as directed FOLDING WALKER WITH 5 WHEELS Use with ambulation blood sugar diagnostic (BLOOD GLUCOSE TEST) test strip Test blood sugar(s) 3 times daily. Dx: Type 2 DM - Uncontrolled E11.65 Insulin: Yes Lancets Test blood sugar(s) 3 times daily. Dx: Type 2 DM - Controlled E11.9 Insulin: Yes hydroCHLOROthiazide 12.5 mg capsule Take 1 capsule by mouth once daily. FOLIC ACID ORAL Take by mouth. methotrexate 2.5 mg tablet Take 20 mg by mouth every Tuesday. melatonin 3 mg tablet Take 1 tablet at 9PM nightly. insulin needles, DISPOSABLE, (PEN NEEDLE) 31 gauge x 5/16 Use one needle per dose. 4 per day. ondansetron orally disintegrating (ZOFRAN ODT) 4 mg disintegrating tablet DISSOLVE 1 TABLET IN MOUTH THREE TIMES DAILY NEEDED FOR NAUSEA AND VOMITING blood sugar diagnostic (ONETOUCH VERIO TEST STRIPS) test strip Test blood sugar(s) 3-4 times daily. Dx: Other DM Code E11.319 Insulin: Yes Cholecalciferol, Vitamin D3, 50 mcg (2,000 unit) cap Take 1 capsule by mouth once daily. Blood-Glucose Meter monitoring kit Glucose Meter of Choice - Kit - Dx: Type 2 DM - Controlled E11.9 COMPOUNDED PRESCRIPTION Insulin needles-1/2 cc for 100 u Use up to 4 a day fluorometholone (FML LIQUID FILM) 0.1 % ophthalmic suspension Use 2 Drops in the left eye twice daily. pantoprazole DR (PROTONIX) 40 mg tablet Take 1 tablet by mouth once daily. Omeprazole 20 mg TbEC Take by mouth. verapamil SR (CALAN SR) 120 mg CR tablet Take 1 tablet by mouth daily at bedtime. (Patient not taking: Reported on 08/03/2024) escitalopram oxalate (LEXAPRO) 10 mg tablet Take 1 tablet by mouth once daily. cetirizine (ZYRTEC) 10 mg tablet Take 1 tablet by mouth once daily. (Patient not taking: Reported on 09/26/2024) No current facility-administered medications for this visit. ALLERGIES: ALLERGIES Aller (more content not included)...[facility] History of Present illness Narrative* Ilir Hernández MD - 09/26/2024 2:55 PM EST Patient presents with: 6 Month Exam HPI: Patient presents today for office visit for follow up. DM: seeing derm. No longer using a pump. A1c is still high. Encouraged follow up. GERD: Unsure whether or not she is taking Nexium or Prilosec. Having reflux symptoms. Vomiting occasionally. No abdominal pain. No bloody or black stool. Stools are always loose but has been that way since her gallbladder is out. Has known gastroparesis. PSYCH: States she's taking the Lexapro prn for anxiety not daily. Denies any depression symptoms. Suggested that not taking it daily could be contributing to some of her issues. HLD: No myalgias. HTN: Checks BP occ Denies chest pain Shortness of breath with exertion. She feels this is getting slightly worse. Denies headaches and dizziness. Some palpitations. No syncope. Occ edema RICARDO: Does not use her CPAP machine. Can't sleep with machine. Having lots of fatigue. Sleeping often. Awake for a couple hours and then falls back asleep. Refers to sleeping about 20hrs a day. Inquiring about mouth guard for sleep apnea. Discussed seeing dentist. Follows with pulmonary, sleep med and podiatry. Did not keep her last julianne with sleep med. Sees rheumatology. Sees Dr Olivas for gi. Following with steam engineer. Just had labs drawn today. Currently pending. Bone density is ordered. Did not go. Encouraged to follow up. MEDICATIONS: Current Outpatient Medications Medication Sig erythromycin (ROMYCIN) 5 mg/gram (0.5 %) ophthalmic ointment APPLY OINTMENT INTO EACH EYE NIGHTLY triamcinolone acetonide (KENALOG) 0.1 % cream Apply 1 application to affected area two times a day.Apply to affected area. Location: legs gabapentin (NEURONTIN) 300 mg capsule Take 1 capsule by mouth daily at bedtime. atorvastatin (LIPITOR) 20 mg tablet Take 1 tablet by mouth daily at bedtime. For cholesterol. fluticasone (FLONASE) 50 mcg/actuation nasal spray USE 1 SPRAY IN EACH NOSTRIL ONCE DAILY AT BEDTIME DIRECTED metoprolol succinate ER (TOPROL XL) 100 mg Take 1 tablet by mouth once daily. oxybutynin ER (DITROPAN XL) 10 mg 24 hr tablet Take 2 tablets by mouth once daily. ammonium lactate (LAC-HYDRIN) 12 % lotion Apply to affected area as needed. albuterol HFA (PROVENTIL HFA, VENTOLIN HFA) 90 mcg/actuation inhaler Inhale 2 Puffs as instructed every 4 hours as needed for wheezing/shortness of breath. fluticasone-salmeterol (ADVAIR, WIXELA) 250-50 mcg/dose inhaler Inhale 1 Puff as instructed two times a day. aspirin, enteric coated (ASPIRIN, ENTERIC COATED) 81 mg EC tablet Take 81 mg by mouth once daily. HUMULIN R U-500, CONC, KWIKPEN 500 unit/mL (3 mL) inpn 40 units 12pm /10 units sq at 5pm/ 25 units at 10pm. Per Dr. Chi. CPAP/BIPAP/OTHER Type .CPAPSettings into a note to see current settings/supplies/DME information. losartan (COZAAR) 100 mg tablet Take 1 tablet by mouth once daily. Blood-Glucose Sensor (LumavitaSTYLE MITZI 3 SENSOR) krystyna Use as directed FOLDING WALKER WITH 5 WHEELS Use with ambulation blood sugar diagnostic (BLOOD GLUCOSE TEST) test strip Test blood sugar(s) 3 times daily. Dx: Type 2 DM - Uncontrolled E11.65 Insulin: Yes Lancets Test blood sugar(s) 3 times daily. Dx: Type 2 DM - Controlled E11.9 Insulin: Yes hydroCHLOROthiazide 12.5 mg capsule Take 1 capsule by mouth once daily. FOLIC ACID ORAL Take by mouth. methotrexate 2.5 mg tablet Take 20 mg by mouth every Tuesday. melatonin 3 mg tablet Take 1 tablet at 9PM nightly. insulin needles, DISPOSABLE, (PEN NEEDLE) 31 gauge x 5/16 Use one needle per dose. 4 per day. ondansetron orally disintegrating (ZOFRAN ODT) 4 mg disintegrating tablet DISSOLVE 1 TABLET IN MOUTH THREE TIMES DAILY NEEDED FOR NAUSEA AND VOMITING blood sugar diagnostic (ONETOUCH VERIO TEST STRIPS) test strip Test blood sugar(s) 3-4 times daily.Dx: Other DM Code E11.319 Insulin: Yes Cholecalciferol, Vitamin D3, 50 mcg (2,000 unit) cap Take 1 capsule by mouth once daily. Blood-Glucose Meter monitoring kit Glucose Meter of Choice - Kit - Dx: Type 2 DM - Controlled E11.9 COMPOUNDED PRESCRIPTION Insulin needles-1/2 cc for 100 u Use up to 4 a day fluorometholone (FML LIQUID FILM) 0.1 % ophthalmic suspension Use 2 Drops in the left eye twice daily. pantoprazole DR (PROTONIX) 40 mg tablet Take 1 tablet by mouth once daily. Omeprazole 20 mg TbEC Take by mouth. verapamil SR (CALAN SR) 120 mg CR tablet Take 1 tablet by mouth daily at bedtime. (Patient not taking: Reported on 08/03/2024) escitalopram oxalate (LEXAPRO) 10 mg tablet Take 1 tablet by mouth once daily. cetirizine (ZYRTEC) 10 mg tablet Take 1 tablet by mouth once daily. (Patient not taking: Reported on 09/26/2024) No current facility-administered medications for this visit. ALLERGIES: ALLERGIES Allergen Reactions Jesenia Inhibitors Cough Nsaids (Non-Steroid* GI Upset Tape [Adhesive Tape* Other: See Comments Blisters from surgical tape Trulicity [Dulaglut* Other: See Comments Gastroparesis PAST MEDICAL HISTORY Diagnosis Date Allergic rhinitis, cause unspecified Arthritis Asthma Childhood asthma Breast cancer (HCC) age 34-had lump, cancerous cells. no issues since, left Diverticulosis of colon (without mention of hemorrhage) Ground glass opacity present on imaging of lung Heme positive stool 2010 History of cervical cancer regular Paps for life Hyperlipidemia 2010 Inflammatory polyarthritis (HCC) Dr. 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) Sleep apnea Not on CPAP Type II or unspecified type diabetes mellitus without mention of complication, not stated as uncontrolled Unspecified essential hypertension PAST SURGICAL HISTORY Procedure Laterality Date ABDOMINAL SURGERY HX hx of feeding tube inserted APPENDECTOMY HX COLONOSCOPY FLX DX W/COLLJ SPEC WHEN PFRMD 06/26/2009 COLONOSCOPY FLX DX W/COLLJ SPEC WHEN PFRMD 04/10/2019 Colonoscopy COLONOSCOPY SCREENING 02/11/2022 Dr Olivas EGD 2010 EGD 02/11/2022 Dr Olivas ERCP DX COLLECTION SPECIMEN BRUSHING/WASHING 07/23/2008 Cholangiopancreatography (ERCP) ESOPHAGOGASTRODUODENOSCOPY TRANSORAL DIAGNOSTIC 04/10/2019 EGD EYE SURGERY HX L'SCOPE CHOLECYSTECTOMY 12/30/2023 MASTECTOMY Left age 34 Mastectomy - simple PAST SURGICAL HISTORY OF nose cauterized inside PAST SURGICAL HISTORY OF removal of skin cancer from right arm PAST SURGICAL HISTORY OF Left 10/11/[address] Scott Sutton REMOVAL GALLBLADDER 2023 [facility] CORNEO-SCLL SCTJ Bilateral Cataract removal BILATERAL TOTAL ABDOMINAL HYSTERECT W/WO RMVL TUBE OVARY age 27 Hysterectomy, MARQUES cervical cancer, has one ovary left FAMILY HISTORY Problem Relation Age of Onset Alcohol abuse Mother None Father Cave in Stroke Sister Cancer Sister COPD Sister No Known Problems Brother No Known Problems Brother Breast Cancer Maternal Aunt Primary Biliary Cirrhosis Daughter Social History Tobacco Use Smoking status: Former Current packs/day: 0.00 Average packs/day: 0.8 packs/day for 30.0 years (22.5 ttl pk-yrs) Types: Cigarettes Start date: 08/15/1970 Quit date: 08/15/2000 Years since quittin.1 Passive exposure: Never Smokeless tobacco: Never Vaping Use Vaping status: Never Used Substance Use Topics Alcohol use: Never Comment: rarely Drug use: No Reviewed current medications, allergies, past medical history, surgical history, family history andsocial history today. REVIEW OF SYSTEMS All other reviewed and negative other than HPI. HEALTH MAINTENANCE: Reviewed health maintenance issues today and recommended the following in detail. BP Controlled (<130/80) Never done Alpha-1 Antitrypsin Deficiency Screening Never done Bone Density Screening due on 01/15/2023 Colorectal Cancer Screening -says was done recently at [facility] Urine Albumin:Creatinine Ratio due on 02/01/2024 HbA1C due on 06/29/2024 Advance Directive Discussion due on 08/15/2024 Mammogram Screening due on 10/05/2024 VITALS: BP 136/70 Pulse 105 Ht 154.9 cm (5' 1) Wt 88.5 kg (195 lb) SpO2 96% BMI 36.84 kg/m Last 4 Encounter Wt Readings: Date: Wt: 08/16/2024 86.2 kg (190 lb 0.6 oz) 08/03/2024 86.6 kg (191 lb) 05/28/2024 83.9 kg (185 lb) 04/03/2024 83.9 kg (185 lb) PHYSICAL EXAMINATION: General appearance: Well appearing, [...] or cyanosis. Good capillary refill. ASSESSMENT/PLAN: 1. Gastroparesis due to secondary diabetes (HCC) - ICD9: 249.60, 536.3, ICD10: E13.43 (primary diagnosis) - reinforced med compliance and sugar control. Take lexapro regularly and stay on ppi. See Dr Brendon arevalo. 2. Mixed hyperlipidemia - ICD9: 272.2, ICD10: E78.2 - Controlled 3. Primary hypertension - ICD9: 401.9, ICD10: I10 - Controlled - Continue current medications 4. SVT (supraventricular tachycardia) (HCC) - ICD9: 427.89, ICD10: I47.10 - rare. 5. Lung nodules - ICD9: 793.19, ICD10: R91.8 - per pulmonary. 6. Chronic cough - ICD9: 786.2, ICD10: R05.3 - per pulmonary. 7. Gastroesophageal reflux disease with esophagitis without hemorrhage - ICD9: 530.81, 530.10, ICD10: K21.00 - per pulmonary. 8. 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 Follow with endo. 9. Subclinical hypothyroidism - ICD9: 244.8, ICD10: E03.8 - THYROID STIMULATING HORMONE 10. History of cervical cancer - ICD9: V10.41, ICD10: Z85.41 - per steam engineer. 11. History of breast cancer - ICD9: V10.3, ICD10: Z85.3 - get mammogram. 12. Inflammatory polyarthritis (HCC) - ICD9: 714.9, ICD10: M06.4 -see rheum. 13. Class 2 obesity with body mass index (BMI) of 36.0 to 36.9 in adult, unspecified obesity type, unspecified whether serious comorbidity present - ICD9: 278.00, V85.36, ICD10: E66.812, Z68.36 - watch diet. 14. Stage 3 chronic kidney disease, unspecified whether stage 3a or 3b CKD (HCC) - ICD9: 585.3, ICD10: N18.30 Follow lab.s 15. Encounter for screening mammogram for malignant neoplasm of breast - ICD9: V76.12, ICD10: Z12.31 - [facility] SCREENING Ilir Hernández MD [facility] Instructions* Patient Instructions* [place] - 08/23/2024 10:30 AM EST Diabetes Foot Care Instructions When you have diabetes, proper foot care is very important. Poor foot care may lead to amputation of a foot or leg. As a person with diabetes, you are more vulnerable to foot problems, because diabetes can damage your nerves and reduce blood flow to your feet. Here are some diabetes foot care tips to follow: Wash and Dry Your Feet Daily Use mild soaps Use warm water Pat your skin dry; do not rub. Thoroughly dry your feet. After washing, use lotion on your feet to prevent cracking. Do not put lotion between your toes. Examine Your Feet Each Day Check the tops and bottoms of your feet. Have someone else look at your feet if you cannot see them. Check for dry, cracked skin. Look for blisters, cuts, scratches, or other sores. Check for redness, increased warmth, or tenderness when touching any area of your feet. Check for ingrown toenails, corns, and calluses. If you get a blister or sore from your shoes, do not pop it. Apply a bandage and wear a differentpair of shoes. Take Care of Your Toenails Cut toenails after bathing, when they are soft. Cut toenails straight across and smooth with a nail file. Avoid cutting into the corners of toes. Do not cut cuticles. If you have neuropathy (or decreased sensation in your feet) a saw man should always cut your toenails. Be Careful When Exercising Walk and exercise in comfortable shoes. Do not exercise when you have open sores on your feet. Protect Your Feet With Shoes and Socks Never go barefoot. Always protect your feet by wearing shoes or hard-soled slippers or footwear. Avoid shoes with high heels and pointed toes. Avoid shoes that expose your toes or heels (such as open-toed shoes or sandals). These types of shoes increase your risk for injury and potential infections. Try on new footwear with the type of socks you usually wear. Do not wear new shoes for more than an hour at a time. Change your socks daily. Look and feel inside your shoes before putting them on to make sure there are no foreign objects orrough areas. Avoid tight socks. Wear natural-fiber socks (cotton, wool, or a cotton-wool blend). Wear special shoes if your health care provider recommends them. Wear shoes/boots that will protect your feet from various weather conditions (cold, moisture, etc.). Make sure your shoes fit properly. If you have neuropathy (nerve damage), you may not notice that your shoes are too tight. Perform the footwear test described below. Footwear Test Use this simple test to see if your shoes fit correctly: Stand on a piece of paper. (Make sure you are standing and not sitting, because your foot changes shape when you stand.) Trace the outline of your foot. Trace the outline of your shoe. Compare the tracings: Is the shoe too narrow? Is your foot crammed into the shoe? The shoe should be at least 1/2 inch longer than your longest toe and as wide as your foot. Proper Shoe Choices The following types of shoes are best for people with diabetes Closed toes and heels Leather uppers without a seam inside At least 1/2 inch extra space at the end of your longest toe Inside of shoe should be soft with no rough areas Outer sole should be made of stiff material Shoes should be at least as wide as your feet Tips for Foot Care in Diabetes Don't wait to treat a minor foot problem if you have diabetes. Follow your health care provider's guidelines and first aid guidelines. Report foot injuries and infections to your health care provider immediately. Check water temperature with your elbow, not your foot. Do not use a heating pad on your feet. Do not cross your legs. Do not self-treat your corns, calluses, or other foot problems. Go to your health care provider or saw man to treat these conditions. [facility] in this [facility]25 NoteHNO ID: [id number] Author: RUSTYJEROMEDUTCH, ? Service: ? Author Type: Physician Type: Progress Notes Filed: 08/23/2024 10:33 Note Text: Consultation requested by Dr. Lancaster for an opinion regarding deformed toenails and diabetic foot exam. My final recommendations will be communicated back to the requesting physician by way of shared Medical record or letter to requesting physician via US mail. Initial Office Visit Subjective: This 74 year old female presents to clinic for diabetic foot check. Patient has the following complaints: incurvated toenails that cause her pain. Patient states that her big toenails turn inward and with socks, they cause her pain. She is here to discuss options. Patient admits to being diabetic for 15 years now. Patient +B/T/N in feet at this time. Patient -pain in legs when walking. No other pedal complaints at this time. No change in medications or medical history since last visit. PAIN EVALUATION No data found in the last 1 encounters. Hemoglobin A1C Date Value 12/28/2023 7.5 01/31/2023 10.4 % 10/20/2022 11.2 07/16/2022 11.0 % 12/10/2021 10.9 % 09/08/2021 11.1 % 06/05/2021 10.1 % 05/08/2021 10.8 03/31/2021 10.0 % 03/04/2021 8.9 % 02/02/2021 9.2 % PCP: Ilir Hernández MD PAST MEDICAL HISTORY Diagnosis Date Allergic rhinitis, cause unspecified Arthritis Asthma Childhood asthma Breast cancer (HCC) age 34-had lump, cancerous cells. no issues since, left Diverticulosis of colon (without mention of hemorrhage) Ground glass opacity present on imaging of lung Heme positive stool 2011 History of cervical cancer regular Paps for life Hyperlipidemia 2011 Inflammatory polyarthritis (HCC) Dr. 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 triamcinolone acetonide (KENALOG) 0.1 % cream Apply 1 application to affected area two times a day. Apply to affected area. Location: legs gabapentin (NEURONTIN) 300 mg capsule Take 1 capsule by mouth daily at bedtime. atorvastatin (LIPITOR) 20 mg tablet Take 1 tablet by mouth daily at bedtime. For cholesterol. fluticasone (FLONASE) 50 mcg/actuation nasal spray USE 1 SPRAY IN EACH NOSTRIL ONCE DAILY AT BEDTIME DIRECTED metoprolol succinate ER (TOPROL XL) 100 mg Take 1 tablet by mouth once daily. oxybutynin ER (DITROPAN XL) 10 mg 24 hr tablet Take 2 tablets by mouth once daily. ammonium lactate (LAC-HYDRIN) 12 % lotion Apply to affected area as needed. albuterol HFA (PROVENTIL HFA, VENTOLIN HFA) 90 mcg/actuation inhaler Inhale 2 Puffs as instructed every 4 hours as needed for wheezing/shortness of breath. fluticasone-salmeterol (ADVAIR, WIXELA) 250-50 mcg/dose inhaler Inhale 1 Puff as instructed two times a day. Omeprazole 20 mg TbEC Take by mouth. aspirin, enteric coated (ASPIRIN, ENTERIC COATED) 81 mg EC tablet Take 81 mg by mouth once daily. HUMULIN R U-500, CONC, KWIKPEN 500 unit/mL (3 mL) inpn 40 units 12pm /10 units sq at 5pm/ 25 units at 10pm. Per Dr. Chi. CPAP/BIPAP/OTHER Type .CPAPSettings into a note to see current settings/supplies/DME information. losartan (COZAAR) 100 mg tablet Take 1 tablet by mouth once daily. Blood-Glucose Sensor (FREESTYLE MITZI 3 SENSOR) krystyna Use as directed escitalopram oxalate (LEXAPRO) 10 mg tablet Take 1 tablet by mouth once daily. FOLDING WALKER WITH 5 WHEELS Use with ambulation blood sugar diagnostic (BLOOD GLUCOSE TEST) test strip Test blood sugar(s) 3 times daily. Dx: Type 2 DM - Uncontrolled E11.65 Insulin: Yes Lancets Test blood sugar(s) 3 times daily. Dx: Type 2 DM - Controlled E11.9 Insulin: Yes cetirizine (ZYRTEC) 10 mg tablet Take 1 tablet by mouth once daily. hydroCHLOROthiazide 12.5 mg capsule Take 1 capsule by mouth once daily. FOLIC ACID ORAL Take by mouth. methotrexate 2.5 mg tablet Take 20 mg by mouth every Tuesday. melatonin 3 mg tablet Take 1 tablet at 9PM nightly. insulin needles, DISPOSABLE, (PEN NEEDLE) 31 gauge x 5/16 Use one needle per dose. 4 per day. ondansetron orally disintegrating (ZOFRAN ODT) 4 mg disintegrating tablet DISSOLVE 1 TABLET IN MOUTH THREE TIMES DAILY NEEDED FOR NAUSEA AND VOMITING blood sugar diagnostic (ONETOUCH VERIO TEST STRIPS) test strip Test blood sugar(s) 3-4 times daily. Dx: Other DM Code E11.319 Insulin: Yes Cholecalciferol, Vitamin D3, 50 mcg (2,000 unit) cap Take 1 capsule by mouth once daily. Blood-Glucose Meter monitoring kit Glucos (more content not included)... [facility] History of Present illness Narrative* [place] - 08/23/2024 10:17 AM EST Consultation requested by Dr. Lancaster for an opinion regarding deformed toenails and diabetic foot exam. My final recommendations will be communicated back to the requesting physician by way of sharedMedical record or letter to requesting physician via [place] mail. Initial Office Visit Subjective: This 74 year old female presents to clinic for diabetic foot check. Patient has the following complaints: incurvated toenails that cause her pain. Patient states that her big toenails turn inward and with socks, they cause her pain. She is here to discuss options. Patient admits to being diabetic for 15 years now. Patient +B/T/N in feet at this time. Patient -pain in legs when walking. No other pedal complaints at this time. No change in medications or medical history since last visit. PAIN EVALUATION No data found in the last 1 encounters. Hemoglobin A1C Date Value 12/28/2023 7.5 01/31/2023 10.4 % 10/20/2022 11.2 07/16/2022 11.0 % 12/10/2021 10.9 % 09/08/2021 11.1 % 06/05/2021 10.1 % 05/08/2021 10.8 03/31/2021 10.0 % 03/04/2021 8.9 % 02/02/2021 9.2 % PCP: Ilir Hernández MD PAST MEDICAL HISTORY Diagnosis Date Allergic rhinitis, cause unspecified Arthritis Asthma Childhood asthma Breast cancer (HCC) age 34-had lump, cancerous cells. no issues since, left Diverticulosis of colon (without mention of hemorrhage) Ground glass opacity present on imaging of lung Heme positive stool 2011 History of cervical cancer regular Paps for life Hyperlipidemia 2010 Inflammatory polyarthritis (HCC) Dr. 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 triamcinolone acetonide (KENALOG) 0.1 % cream Apply 1 application to affected area two times a day.Apply to affected area. Location: legs gabapentin (NEURONTIN) 300 mg capsule Take 1 capsule by mouth daily at bedtime. atorvastatin (LIPITOR) 20 mg tablet Take 1 tablet by mouth daily at bedtime. For cholesterol. fluticasone (FLONASE) 50 mcg/actuation nasal spray USE 1 SPRAY IN EACH NOSTRIL ONCE DAILY AT BEDTIME DIRECTED metoprolol succinate ER (TOPROL XL) 100 mg Take 1 tablet by mouth once daily. oxybutynin ER (DITROPAN XL) 10 mg 24 hr tablet Take 2 tablets by mouth once daily. ammonium lactate (LAC-HYDRIN) 12 % lotion Apply to affected area as needed. albuterol HFA (PROVENTIL HFA, VENTOLIN HFA) 90 mcg/actuation inhaler Inhale 2 Puffs as instructed every 4 hours as needed for wheezing/shortness of breath. fluticasone-salmeterol (ADVAIR, WIXELA) 250-50 mcg/dose inhaler Inhale 1 Puff as instructed two times a day. Omeprazole 20 mg TbEC Take by mouth. aspirin, enteric coated (ASPIRIN, ENTERIC COATED) 81 mg EC tablet Take 81 mg by mouth once daily. HUMULIN R U-500, CONC, KWIKPEN 500 unit/mL (3 mL) inpn 40 units 12pm /10 units sq at 5pm/ 25 units at 10pm. Per Dr. Chi. CPAP/BIPAP/OTHER Type .CPAPSettings into a note to see current settings/supplies/DME information. losartan (COZAAR) 100 mg tablet Take 1 tablet by mouth once daily. Blood-Glucose Sensor (FREESTYLE MITZI 3 SENSOR) krystyna Use as directed escitalopram oxalate (LEXAPRO) 10 mg tablet Take 1 tablet by mouth once daily. FOLDING WALKER WITH 5 WHEELS Use with ambulation blood sugar diagnostic (BLOOD GLUCOSE TEST) test strip Test blood sugar(s) 3 times daily. Dx: Type 2 DM - Uncontrolled E11.65 Insulin: Yes Lancets Test blood sugar(s) 3 times daily. Dx: Type 2 DM - Controlled E11.9 Insulin: Yes cetirizine (ZYRTEC) 10 mg tablet Take 1 tablet by mouth once daily. hydroCHLOROthiazide 12.5 mg capsule Take 1 capsule by mouth once daily. FOLIC ACID ORAL Take by mouth. methotrexate 2.5 mg tablet Take 20 mg by mouth every Tuesday. melatonin 3 mg tablet Take 1 tablet at 9PM nightly. insulin needles, DISPOSABLE, (PEN NEEDLE) 31 gauge x 5/16 Use one needle per dose. 4 per day. ondansetron orally disintegrating (ZOFRAN ODT) 4 mg disintegrating tablet DISSOLVE 1 TABLET IN MOUTH THREE TIMES DAILY NEEDED FOR NAUSEA AND VOMITING blood sugar diagnostic (ONETOUCH VERIO TEST STRIPS) test strip Test blood sugar(s) 3-4 times daily.Dx: Other DM Code E11.319 Insulin: Yes Cholecalciferol, Vitamin D3, 50 mcg (2,000 unit) cap Take 1 capsule by mouth once daily. Blood-Glucose Meter monitoring kit Glucose Meter of Choice - Kit - Dx: Type 2 DM - Controlled E11.9 COMPOUNDED PRESCRIPTION Insulin needles-1/2 cc for 100 u Use up to 4 a day fluorometholone (FML LIQUID FILM) 0.1 % ophthalmic suspension Use 2 Drops in the left eye twice daily. verapamil SR (CALAN SR) 120 mg CR tablet Take 1 tablet by mouth daily at bedtime. (Patient not taking: Reported on 08/03/2024) No current facility-administered medications for this visit. ALLERGIES Allergen Reactions Jesenia Inhibitors Cough Nsaids (Non-Steroid* GI Upset Tape [Adhesive Tape* Other: See Comments Blisters from surgical tape Trulicity [Dulaglut* Other: See Comments Gastroparesis PAST SURGICAL HISTORY Procedure Laterality Date ABDOMINAL SURGERY HX hx of feeding tube inserted APPENDECTOMY HX COLONOSCOPY FLX DX W/COLLJ SPEC WHEN PFRMD 06/26/2009 COLONOSCOPY FLX DX W/COLLJ SPEC WHEN PFRMD 04/10/2019 Colonoscopy COLONOSCOPY SCREENING 02/11/2022 Dr Olivas EGD 2010 EGD 02/11/2022 Dr Olivas ERCP DX COLLECTION SPECIMEN BRUSHING/WASHING 07/23/2008 Cholangiopancreatography (ERCP) ESOPHAGOGASTRODUODENOSCOPY TRANSORAL DIAGNOSTIC 04/10/2019 EGD EYE SURGERY HX L'SCOPE CHOLECYSTECTOMY 12/30/2023 MASTECTOMY Left age 34 Mastectomy - simple PAST SURGICAL HISTORY OF nose cauterized inside PAST SURGICAL HISTORY OF removal of skin cancer from right arm PAST SURGICAL HISTORY OF Left 10/11/[address] Scott Sutton REMOVAL GALLBLADDER 2023 [facility] CORNEO-SCLL SCTJ Bilateral Cataract removal BILATERAL TOTAL ABDOMINAL HYSTERECT W/WO RMVL TUBE OVARY age 27 Hysterectomy, MARQUES cervical cancer, has one ovary left FAMILY HISTORY Problem Relation Age of Onset Alcohol abuse Mother None Father Cave in Stroke Sister Cancer Sister COPD Sister No Known Problems Brother No Known Problems Brother Breast Cancer Maternal Aunt Primary Biliary Cirrhosis Daughter Social History Tobacco Use Smoking status: Former Current packs/day: 0.00 Average packs/day: 0.8 packs/day for 30.0 years (22.5 ttl pk-yrs) Types: Cigarettes Start date: 08/15/1970 Quit date: 08/15/2000 Years since quittin.0 Passive exposure: Never Smokeless tobacco: Never Vaping Use Vaping status: Never Used Substance Use Topics Alcohol use: Never Comment: rarely Drug use: No REVIEW OF SYSTEMS GENERAL: Negative for Malaise, significant weight loss, fever RESPIRATORY: Negative for cough, wheezing and shortness of breath CARDIOVASCULAR: Negative for chest pain, leg swelling and palpitations GI: Negative for abdominal discomfort, blood in stools or black stools and change in bowel habits : Negative for dysuria, frequency and incontinence MUSCULOSKELETAL: Negative for joint pain or swelling, back pain, and muscle pain. SKIN: Negative for lesions, rash, and itching. HEMATOLOGY/LYMPHOLOGY Negative for prolonged bleeding, bruising easily, and swollen nodes. ENDOCRINE: Negative for cold or heat intolerance, polyuria, polydipsia and goiter. NEURO: negative The remainder of the review of systems is noncontributory. Objective: Patient presents to clinic ambulating in [facility] Constitutional: Pt is a well developed 74 year old female who is alert, oriented, cooperative and in no apparent distress. Eyes: Following during examination. No redness or drainage. Respiratory: RR normal and nonlabored. Even breathing. No evidence of distress. Psychology: Patient is engaged during conversation. Normal affect and mood. Does not appear depressed or anxious. Vasc: DP and PT pulses are palpable bilateral. CFT is less than 5 seconds bilateral. Skin temperature is warm to cold proximal to distal bilateral. There is mild edema or varicosities noted. Hair growth absent. Neuro: Protective sensation is intact to the foot and toes when tested with the 5.07 SWM bilateral.Vibratory sensation is slightly decreased at the hallux bilateral. + Significant neurological defecits. Derm: Inspection and palpation performed. Nails 1-4 b/l are discolored-yellow, thick, crumbly, dystrophic and with subungal debris. B/l hallux toenail is incurvated and painful. No signs of infection. Skin is dry and thin and ruborous. Hyperkeratosis noted to not present. NO ulcerations, scars, verruca or other lesions noted. Ortho: Ankle joint DF is full with the knee extended and full with knee flexed. No pain or crepitusnoted. STJ, MTJ ROM are full and free of pain or crepitus. Muscle strength is 5/5 for dorsiflexors,plantarflexors, inverters, everters. Digital deformities include none. Assessment: (L60.0) Onychocryptosis (primary encounter diagnosis) (B35.1) Onychomycosis (E11.42) Diabetic polyneuropathy associated with type 2 diabetes mellitus (HCC) (M79.675) Pain in toe of left foot (M79.674) Pain in toe of right foot Plan: 1. Patient was seen and evaluated. 2. Patient was instructed on the continued importance of diabetic foot care along with proper diet and keeping their blood sugar under control to prevent complications. Stressed the importance of avoiding barefoot walking, wearing good shoes and inspection of feet Instructions given both oral and written. 3. Discussed pain in b/l hallux toenails. Likely due to ingrown. Discussed options not limited to debridement vs removal. She is not interested in removal. 4. We discussed the possible etiologies of discolored, dystrophic, and thickened nails including fungus, yeast, mold as well as in some instances, prior trauma, or mechanical causes such as repetitive microtrauma in shoe gear. We discussed topical medication for discolored toenails which has very low success but no major side effects. We discussed oral medication. Patient will need hepatic testing prior to use. Patient informed of risks associated with Lamisil. We discussed removal of toenails.Patient would like to proceed with debridement. Debridement of toenails 1-4 b/l. B/l 5th toenail was already short. [place] DPM * Carlos Brumfield MA - 08/23/2024 9:55 AM EST AMB ROOMING INTAKE FLOWSHEET DATA Risk Screening Do you have concerns about personal safety or safety in the home?: No Patient presents with: Left Foot - New, Diabetic Foot Care: Nail care Right Foot - New, Diabetic Foot Care: Nail care Carlos Brumfield MA documented [facility] NoteHNO ID: [id number] Author: CARLOS BRUMFIELD MA Service: ? Author Type: Adjuster Leader Type: Progress Notes Filed: 08/23/2024 10:33 Note Text: AMB ROOMING INTAKE FLOWSHEET DATA Risk Screening Do you have concerns about personal safety or safety in the home?: No Patient presents with: Left Foot - New, Diabetic Foot Care: Nail care Right Foot - New, Diabetic Foot Care: Nail care [facility] Inst[facility]* Patient Instructions* Claire Lancaster APRN.CNP - 08/16/2024 1:06 PM EST 1) Switch esomeprazole to pantoprazole 40 mg- take 30- 60 min. Before any other medications or food 2) Triamcinolone cream to legs for itching 3) Take losartan in morning and Metoprolol in evening 4) Consult TRIAL EXAMINER 5) Dexa scan ordered 6) Take calcium with vit D 2 x day- no more than 600 mg at a time (consider TUMs) BONE MINERAL DENSITY PATIENT INSTRUCTIONS Bone mineral density testing measures the amount of calcium in certain parts of your bones. This information determines how strong your bones are. The test is used to detect osteoporosis, a disease in which the bone's mineral content and density are low, increasing a person's risk of fractures. Thelumbar spine (lower back) and the hip are [...] you can resume your usual activities immediately. BONE MINERAL DENSITY PATIENT INSTRUCTIONS Bone mineral density testing measures the amount of calcium in certain parts of your bones. This information determines how strong your bones are. The test is used to detect osteoporosis, a disease in which the bone's mineral content and density are low, increasing a person's risk of fractures. Thelumbar spine (lower back) and the hip are [...] you can resume your usual activities immediately. BONE MINERAL DENSITY PATIENT INSTRUCTIONS Bone mineral density testing measures the amount of calcium in certain parts of your bones. This information determines how strong your bones are. The test is used to detect osteoporosis, a disease in which the bone's mineral content and density are low, increasing a person's risk of fractures. Thelumbar spine (lower back) and the hip are [...] you can resume your usual activities immediately. documented in this encounterW[facility]01-02-2025 NoteHNO ID: [id number] Author: CLAIRE LANCASTER APRN.CNP Service: ? Author Type: Clinical Nurse Specialist Type: Progress Notes Filed: 08/23/2024 17:08 Note Text: This is a 74 year old female who presents today with: Patient presents with: Follow Up HISTORY OF PRESENT ILLNESS: Manisha Keith is a 74 year old female. Patient presents with: Follow Up Here to follow up on Cellulitis on lower legs still itchy but redness faded to pale pink and purplish dots are faded to pink Right lower ext. Red, warm to touch, and itches. Has Hx of cellulitis but also allergic to elastic in tend hose Labs reviewed from [facility]- showed stage III a CKD Inhalers now much more affordable Severe acid reflux Multiple reminders. Quit Calcium AND vit. D, overdue on follow up on osteoporosis and PAP PAST MEDICAL HISTORY: PAST MEDICAL HISTORY Diagnosis Date Allergic rhinitis, cause unspecified Arthritis Asthma Childhood asthma Breast cancer (HCC) age 34-had lump, cancerous cells. no issues since, left Diverticulosis of colon (without mention of hemorrhage) Ground glass opacity present on imaging of lung Heme positive stool 2011 History of cervical cancer regular Paps for life Hyperlipidemia 2010 Inflammatory polyarthritis (HCC) Dr. 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) Sleep apnea Not on CPAP Type II or unspecified type diabetes mellitus without mention of complication, not stated as uncontrolled Unspecified essential hypertension PAST SURGICAL HISTORY Procedure Laterality Date ABDOMINAL SURGERY HX hx of feeding tube inserted APPENDECTOMY HX COLONOSCOPY FLX DX W/COLLJ SPEC WHEN PFRMD 06/26/2009 COLONOSCOPY FLX DX W/COLLJ SPEC WHEN PFRMD 04/10/2019 Colonoscopy COLONOSCOPY SCREENING 02/11/2022 Dr Olivas EGD 2010 EGD 02/11/2022 Dr Olivas ERCP DX COLLECTION SPECIMEN BRUSHING/WASHING 07/23/2008 Cholangiopancreatography (ERCP) ESOPHAGOGASTRODUODENOSCOPY TRANSORAL DIAGNOSTIC 04/10/2019 EGD EYE SURGERY HX L'SCOPE CHOLECYSTECTOMY 12/30/2023 MASTECTOMY Left age 34 Mastectomy - simple PAST SURGICAL HISTORY OF nose cauterized inside PAST SURGICAL HISTORY OF removal of skin cancer from right arm PAST SURGICAL HISTORY OF Left 10/11/[address] Scott Sutton REMOVAL GALLBLADDER 2023 [facility] CORNEO-SCLL SCTJ Bilateral Cataract removal BILATERAL TOTAL ABDOMINAL HYSTERECT W/WO RMVL TUBE OVARY age 27 Hysterectomy, MARQUES cervical cancer, has one ovary left ALLERGIES Jesenia Inhibitors, Nsaids (Non-Steroidal Anti-Inflammatory Drug), Tape [Adhesive Tape (Rosins)], and Trulicity [Dulaglutide] MEDICATIONS Current Outpatient Medications Medication Sig fluticasone (FLONASE) 50 mcg/actuation nasal spray USE 1 SPRAY IN EACH NOSTRIL ONCE DAILY AT BEDTIME DIRECTED gabapentin (NEURONTIN) 300 mg capsule Take 1 capsule by mouth daily at bedtime. metoprolol succinate ER (TOPROL XL) 100 mg Take 1 tablet by mouth once daily. oxybutynin ER (DITROPAN XL) 10 mg 24 hr tablet Take 2 tablets by mouth once daily. ammonium lactate (LAC-HYDRIN) 12 % lotion Apply to affected area as needed. albuterol HFA (PROVENTIL HFA, VENTOLIN HFA) 90 mcg/actuation inhaler Inhale 2 Puffs as instructed every 4 hours as needed for wheezing/shortness of breath. fluticasone-salmeterol (ADVAIR, WIXELA) 250-50 mcg/dose inhaler Inhale 1 Puff as instructed two times a day. esomeprazole (NEXIUM) 20 mg capsule Take 1 capsule by mouth daily before breakfast. 1/2 hr before meal. Omeprazole 20 mg TbEC Take by mouth. aspirin, enteric coated (ASPIRIN, ENTERIC COATED) 81 mg EC tablet Take 81 mg by mouth once daily. verapamil SR (CALAN SR) 120 mg CR tablet Take 1 tablet by mouth daily at bedtime. (Patient not taking: Reported on 08/03/2024) HUMULIN R U-500, CONC, KWIKPEN 500 unit/mL (3 mL) inpn 40 units 12pm /10 units sq at 5pm/ 25 units at 10pm. Per Dr. Chi. CPAP/BIPAP/OTHER Type .CPAPSettings into a note to see current settings/supplies/DME information. losartan (COZAAR) 100 mg tablet Take 1 tablet by mouth once daily. Blood-Glucose Meter,Continuous (FREESTYLE MITZI 3 READER) misc Use as directed. Blood-Glucose Sensor (FREESTYLE MITZI 3 SENSOR) krystyna Use as directed escitalopram oxalate (LEXAPRO) 10 mg tablet Take 1 tablet by mouth once daily. FOLDING WALKER WITH 5 WHEELS Use with ambulation blood sugar diagnostic (BLOOD GLUCOSE TEST) test strip Test blood sugar(s) 3 times daily. Dx: Type 2 DM - Uncontrolled E11.65 Insulin: Yes Blood-Glucose Meter monitoring kit Glucose Meter of Choice - Kit - Dx: Type 2 DM - Controlled E11.9 Insulin: Yes Lancets Test blood sugar(s) 3 times daily. Dx: Type 2 DM - Controlled E11.9 (more content not included)...[facility]01[facility] History of Present illness Narrative* Claire Lancaster APRN.MATERIAL LOADER - 08/16/2024 1:01 PM EST This is a 74 year old female who presents today with: Patient presents with: Follow Up HISTORY OF PRESENT ILLNESS: Manisha Keith is a 74 year old female. Patient presents with: Follow Up Here to follow up on Cellulitis on lower legs still itchy but redness faded to pale pink and purplish dots are faded to pink Right lower ext. Red, warm to touch, and itches. Has Hx of cellulitis but also allergic to elastic in tend hose Labs reviewed from [facility]- showed stage III a CKD Inhalers now much more affordable Severe acid reflux Multiple reminders. Quit Calcium & vit. D, overdue on follow up on osteoporosis and PAP PAST MEDICAL HISTORY: PAST MEDICAL HISTORY Diagnosis Date Allergic rhinitis, cause unspecified Arthritis Asthma Childhood asthma Breast cancer (HCC) age 34-had lump, cancerous cells. no issues since, left Diverticulosis of colon (without mention of hemorrhage) Ground glass opacity present on imaging of lung Heme positive stool 2010 History of cervical cancer regular Paps for life Hyperlipidemia 2010 Inflammatory polyarthritis (HCC) Dr. 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) Sleep apnea Not on CPAP Type II or unspecified type diabetes mellitus without mention of complication, not stated as uncontrolled Unspecified essential hypertension PAST SURGICAL HISTORY Procedure Laterality Date ABDOMINAL SURGERY HX hx of feeding tube inserted APPENDECTOMY HX COLONOSCOPY FLX DX W/COLLJ SPEC WHEN PFRMD 06/26/2009 COLONOSCOPY FLX DX W/COLLJ SPEC WHEN PFRMD 04/10/2019 Colonoscopy COLONOSCOPY SCREENING 02/11/2022 Dr Brendon CASTANO 2010 EGD 02/11/2022 Dr Olivas ERCP DX COLLECTION SPECIMEN BRUSHING/WASHING 07/23/2008 Cholangiopancreatography (ERCP) ESOPHAGOGASTRODUODENOSCOPY TRANSORAL DIAGNOSTIC 04/10/2019 EGD EYE SURGERY HX L'SCOPE CHOLECYSTECTOMY 12/30/2023 MASTECTOMY Left age 34 Mastectomy - simple PAST SURGICAL HISTORY OF nose cauterized inside PAST SURGICAL HISTORY OF removal of skin cancer from right arm PAST SURGICAL HISTORY OF Left 10/11/[address] Scott Sutton REMOVAL GALLBLADDER 2023 [facility] CORNEO-SCLL SCTJ Bilateral Cataract removal BILATERAL TOTAL ABDOMINAL HYSTERECT W/WO RMVL TUBE OVARY age 27 Hysterectomy, MARQUES cervical cancer, has one ovary left ALLERGIES Jesenia Inhibitors, Nsaids (Non-Steroidal Anti-Inflammatory Drug), Tape [Adhesive Tape (Rosins)], and Trulicity [Dulaglutide] MEDICATIONS Current Outpatient Medications Medication Sig fluticasone (FLONASE) 50 mcg/actuation nasal spray USE 1 SPRAY IN EACH NOSTRIL ONCE DAILY AT BEDTIME DIRECTED gabapentin (NEURONTIN) 300 mg capsule Take 1 capsule by mouth daily at bedtime. metoprolol succinate ER (TOPROL XL) 100 mg Take 1 tablet by mouth once daily. oxybutynin ER (DITROPAN XL) 10 mg 24 hr tablet Take 2 tablets by mouth once daily. ammonium lactate (LAC-HYDRIN) 12 % lotion Apply to affected area as needed. albuterol HFA (PROVENTIL HFA, VENTOLIN HFA) 90 mcg/actuation inhaler Inhale 2 Puffs as instructed every 4 hours as needed for wheezing/shortness of breath. fluticasone-salmeterol (ADVAIR, WIXELA) 250-50 mcg/dose inhaler Inhale 1 Puff as instructed two times a day. esomeprazole (NEXIUM) 20 mg capsule Take 1 capsule by mouth daily before breakfast. 1/2 hr before meal. Omeprazole 20 mg TbEC Take by mouth. aspirin, enteric coated (ASPIRIN, ENTERIC COATED) 81 mg EC tablet Take 81 mg by mouth once daily. verapamil SR (CALAN SR) 120 mg CR tablet Take 1 tablet by mouth daily at bedtime. (Patient not taking: Reported on 08/03/2024) HUMULIN R U-500, CONC, KWIKPEN 500 unit/mL (3 mL) inpn 40 units 12pm /10 units sq at 5pm/ 25 units at 10pm. Per Dr. Chi. CPAP/BIPAP/OTHER Type .CPAPSettings into a note to see current settings/supplies/DME information. losartan (COZAAR) 100 mg tablet Take 1 tablet by mouth once daily. Blood-Glucose Meter,Continuous (FREESTYLE MITZI 3 READER) misc Use as directed. Blood-Glucose Sensor (FREESTYLE MITZI 3 SENSOR) krystyna Use as directed escitalopram oxalate (LEXAPRO) 10 mg tablet Take 1 tablet by mouth once daily. FOLDING WALKER WITH 5 WHEELS Use with ambulation blood sugar diagnostic (BLOOD GLUCOSE TEST) test strip Test blood sugar(s) 3 times daily. Dx: Type 2 DM - Uncontrolled E11.65 Insulin: Yes Blood-Glucose Meter monitoring kit Glucose Meter of Choice - Kit - Dx: Type 2 DM - Controlled E11.9Insulin: Yes Lancets Test blood sugar(s) 3 times daily. Dx: Type 2 DM - Controlled E11.9 Insulin: Yes cetirizine (ZYRTEC) 10 mg tablet Take 1 tablet by mouth once daily. hydroCHLOROthiazide 12.5 mg capsule Take 1 capsule by mouth once daily. FOLIC ACID ORAL Take by mouth. atorvastatin (LIPITOR) 20 mg tablet Take 1 tablet by mouth daily at bedtime. For cholesterol. methotrexate 2.5 mg tablet Take 20 mg by mouth every Tuesday. melatonin 3 mg tablet Take 1 tablet at 9PM nightly. insulin needles, DISPOSABLE, (PEN NEEDLE) 31 gauge x 5/16 Use one needle per dose. 4 per day. ondansetron orally disintegrating (ZOFRAN ODT) 4 mg disintegrating tablet DISSOLVE 1 TABLET IN MOUTH THREE TIMES DAILY NEEDED FOR NAUSEA AND VOMITING blood sugar diagnostic (ONETOUCH VERIO TEST STRIPS) test strip Test blood sugar(s) 3-4 times daily.Dx: Other DM Code E11.319 Insulin: Yes Cholecalciferol, Vitamin D3, 50 mcg (2,000 unit) cap Take 1 capsule by mouth once daily. albuterol HFA (PROAIR HFA) 90 mcg/actuation inhaler Inhale 2 Puffs as instructed every 4 hours as needed. blood sugar diagnostic (BLOOD GLUCOSE TEST) test [...] Drops in the left eye twice daily. No current facility-administered medications for this visit. FAMILY HISTORY Problem Relation Age of Onset Alcohol abuse Mother None Father Cave in Stroke Sister Cancer Sister COPD Sister No Known Problems Brother No Known Problems Brother Breast Cancer Maternal Aunt Primary Biliary Cirrhosis Daughter Social History Tobacco Use Smoking status: Former Current packs/day: 0.00 Average packs/day: 0.8 packs/day for 30.0 years (22.5 ttl pk-yrs) Types: Cigarettes Start date: 08/15/1970 Quit date: 08/15/2000 Years since quittin.0 Passive exposure: Never Smokeless tobacco: Never Vaping Use Vaping status: Never Used Substance Use Topics Alcohol use: Never Comment: rarely Drug use: No EXAM: BP 160/88 Pulse 87 Temp 36.5 C (97.7 F) Resp 16 Wt 86.2 kg (190 lb 0.6 oz) SpO2 93% BMI35.91 kg/m PHYSICAL EXAM: Physical Exam Vitals reviewed. Constitutional: Appearance: Normal appearance. HENT: Head: Normocephalic. Cardiovascular: Rate and Rhythm: Normal rate and regular rhythm. Pulses: Normal pulses. Heart sounds: Normal heart sounds. Pulmonary: Effort: Pulmonary effort is normal. Breath sounds: Normal breath sounds. Abdominal: General: Bowel sounds are normal. Palpations: Abdomen is soft. Musculoskeletal: General: Normal range of motion. Right lower leg: No edema. Left lower leg: No edema. Skin: General: Skin is warm and dry. Comments: Lower leg redness- resolved Still itch but allergic to elastic in compression stockings Also, tiny raised pink papules on lower legs Neurological: Mental Status: She is alert and oriented to person, place, and time. Psychiatric: Mood and Affect: Mood normal. Behavior: Behavior normal. Has not taken blood pressure pills yet today- takes them both together LABS: labs before she sees Dr. Hernández ASSESSMENT/PLAN: 1. Gastroesophageal reflux disease without esophagitis - ICD9: 530.81, ICD10: K21.9 (primary diagnosis) - Switch PPI - PANTOPRAZOLE 40 MG TABLET,DELAYED RELEASE 2. Lichen planus - ICD9: 697.0, ICD10: L43.9 Possibly Licjhens vs. Allergic dermatitis - TRIAMCINOLONE ACETONIDE 0.1 % TOPICAL CREAM 1 - 2 x day 3. Lumbar pain - ICD9: 724.2, ICD10: M54.50 Stable on evening gabapentin - GABAPENTIN 300 MG CAPSULE 4. Mixed hyperlipidemia - ICD9: 272.2, ICD10: E78.2 - Controlled - Continue current medications - Counseled on healthy diet and regular exercise - ATORVASTATIN 20 MG TABLET renewed 5. Screening for depression - ICD9: V79.0, ICD10: Z13.31 negative - DEPRESSION SCREENING 6. Encounter for screening examination for other mental health and behavioral disorders - ICD9: V79.8, ICD10: Z13.39 negative - ANXIETY SCREENING 7. Asymptomatic menopause - ICD9: V49.81, ICD10: Z78.0 Schedule with TRIAL EXAMINER 8. Encounter for screening for osteoporosis - ICD9: V82.81, ICD10: Z13.820 Check dexa 9. Senile osteoporosis - ICD9: 733.01, ICD10: M81.0 - Reviewed the need for Calcium and Vitamin D supplements and weight bearing exercise as tolerated - DXA-AXIAL SKELETON - DXA TRABECULAR BONE SCORE (TBS) 10. Screening for cervical cancer - ICD9: V76.2, ICD10: Z12.4 - Completed pelvic and breast exam - Encouraged monthly BSE - Follow up for annual exam in one year. - CONSULT TO GYNECOLOGY 11. Gastroparesis due to secondary diabetes (HCC) - ICD9: 249.60, 536.3, ICD10: E13.43 - Controlled - Continue current medications - HEMOGLOBIN A1C - ALBUMIN/CREATININE RATIO, URINE - COMPLETE BLOOD COUNT AND DIFFERENTIAL - COMPREHENSIVE METABOLIC PANEL 12. Chronic obstructive pulmonary disease, unspecified COPD type (HCC) - ICD9: 496, ICD10: J44.9 Stable- inhalers affordable - [id number] - COMPLETE BLOOD COUNT AND DIFFERENTIAL - COMPREHENSIVE METABOLIC PANEL Discussed treatment plan and patient voices understanding. Patient's questions answered appropriately. Medications and potential side effects were discussed and patient voices understanding. Return to the office as scheduled or as needed for worsening/no improvement. Claire Lancaster APRN.MATERIAL LOADER documented in this encounter[facility]12-20-2024 Instructions* Patient Instructions* Claire Lancaster APRN.CNP - 08/03/2024 12:19 PM EST 1) Follow up in 2 weeks 2) Ammonium Lactate cream to legs daily (may be OTC) 3) Doxycycline 100 mg 2 x day for cellulitis 4) Proventil puffer for rescue 5) Wixela for asthma treat standard 2 x day 6) Consult podiatry documented in this encounterWo[facility]12-20-2024 NoteHNO ID: [id number] Author: CLAIRE LANCASTER APRN.CNP Service: ? Author Type: Clinical Nurse Specialist Type: Progress Notes Filed: 08/03/2024 12:27 Note Text: This is a 74 year old female who presents today with: No chief complaint on file. HISTORY OF PRESENT ILLNESS: Manisha Keith is a 74 year old female. No chief complaint on file. Right lower ext. Red, warm to touch, and itches. Started about 4 days ago Has Hx of cellulitis but also allergic to elastic in tend hose Labs reviewed from [facility]- showed stage III a CKD Can't afford inhalers so taking none PAST MEDICAL HISTORY: PAST MEDICAL HISTORY Diagnosis Date Allergic rhinitis, cause unspecified Arthritis Asthma Childhood asthma Breast cancer (HCC) age 34-had lump, cancerous cells. no issues since, left Diverticulosis of colon (without mention of hemorrhage) Ground glass opacity present on imaging of lung Heme positive stool 2011 History of cervical cancer regular Paps for life Hyperlipidemia 2011 Inflammatory polyarthritis (HCC) Dr. 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) Sleep apnea Not on CPAP Type II or unspecified type diabetes mellitus without mention of complication, not stated as uncontrolled Unspecified essential hypertension PAST SURGICAL HISTORY Procedure Laterality Date ABDOMINAL SURGERY HX hx of feeding tube inserted APPENDECTOMY HX COLONOSCOPY FLX DX W/COLLJ SPEC WHEN PFRMD 06/26/2009 COLONOSCOPY FLX DX W/COLLJ SPEC WHEN PFRMD 04/10/2019 Colonoscopy COLONOSCOPY SCREENING 02/11/2022 Dr Olivas EGD 2010 EGD 02/11/2022 Dr Olivas ERCP DX COLLECTION SPECIMEN BRUSHING/WASHING 07/23/2008 Cholangiopancreatography (ERCP) ESOPHAGOGASTRODUODENOSCOPY TRANSORAL DIAGNOSTIC 04/10/2019 EGD EYE SURGERY HX L'SCOPE CHOLECYSTECTOMY 12/30/2023 MASTECTOMY Left age 34 Mastectomy - simple PAST SURGICAL HISTORY OF nose cauterized inside PAST SURGICAL HISTORY OF removal of skin cancer from right arm PAST SURGICAL HISTORY OF Left 10/11/[address] Scott Sutton REMOVAL GALLBLADDER 2023 [facility] CORNEO-SCLL SCTJ Bilateral Cataract removal BILATERAL TOTAL ABDOMINAL HYSTERECT W/WO RMVL TUBE OVARY age 27 Hysterectomy, MARQUES cervical cancer, has one ovary left ALLERGIES Jesenia Inhibitors, Nsaids (Non-Steroidal Anti-Inflammatory Drug), Tape [Adhesive Tape (Rosins)], and Trulicity [Dulaglutide] MEDICATIONS Current Outpatient Medications Medication Sig esomeprazole (NEXIUM) 20 mg capsule Take 1 capsule by mouth daily before breakfast. 1/2 hr before meal. Omeprazole 20 mg TbEC Take by mouth. aspirin, enteric coated (ASPIRIN, ENTERIC COATED) 81 mg EC tablet Take 81 mg by mouth once daily. slmiyhztam-thudkaqx-lczqftpqri (BREZTRI) 160-9-4.8 mcg/actuation HFA aerosol inhaler Inhale 2 Puffs as instructed two times a day. HUMULIN R U-500, CONC, KWIKPEN 500 unit/mL (3 mL) inpn 40 units 12pm /10 units sq at 5pm/ 25 units at 10pm. Per Dr. Chi. losartan (COZAAR) 100 mg tablet Take 1 tablet by mouth once daily. Blood-Glucose Meter,Continuous (FREESTYLE MITZI 3 READER) misc Use as directed. Blood-Glucose Sensor (FREESTYLE MITZI 3 SENSOR) krystyna Use as directed escitalopram oxalate (LEXAPRO) 10 mg tablet Take 1 tablet by mouth once daily. FOLDING WALKER WITH 5 WHEELS Use with ambulation blood sugar diagnostic (BLOOD GLUCOSE TEST) test strip Test blood sugar(s) 3 times daily. Dx: Type 2 DM - Uncontrolled E11.65 Insulin: Yes Blood-Glucose Meter monitoring kit Glucose Meter of Choice - Kit - Dx: Type 2 DM - Controlled E11.9 Insulin: Yes Lancets Test blood sugar(s) 3 times daily. Dx: Type 2 DM - Controlled E11.9 Insulin: Yes fluticasone (FLONASE) 50 mcg/actuation nasal spray USE 1 SPRAY IN EACH NOSTRIL ONCE DAILY AT BEDTIME DIRECTED cetirizine (ZYRTEC) 10 mg tablet Take 1 tablet by mouth once daily. hydroCHLOROthiazide 12.5 mg capsule Take 1 capsule by mouth once daily. FOLIC ACID ORAL Take by mouth. atorvastatin (LIPITOR) 20 mg tablet Take 1 tablet by mouth daily at bedtime. For cholesterol. methotrexate 2.5 mg tablet Take 20 mg by mouth every Tuesday. melatonin 3 mg tablet Take 1 tablet at 9PM nightly. insulin needles, DISPOSABLE, (PEN NEEDLE) 31 gauge x 5/16 Use one needle per dose. 4 per day. ondansetron orally disintegrating (ZOFRAN ODT) 4 mg disintegrating tablet DISSOLVE 1 TABLET IN MOUTH THREE TIMES DAILY NEEDED FOR NAUSEA AND VOMITING blood sugar diagnostic (ONETOUCH VERIO TEST STRIPS) test strip Test blood sugar(s) 3-4 times daily. Dx: Other DM Code E11.319 Insulin: Yes Cholecalciferol, Vitamin D3, 50 mcg (2,000 unit) cap Take 1 capsule by mouth once daily. albuterol HFA (PROAIR HFA) (more content not included)...[facility]12-20-[facility] History of Present illness Narrative* Claire Lancaster APRN.[facility] - 08/03/2024 12:13 PM EST This is a 74 year old female who presents today with: No chief complaint on file. HISTORY OF PRESENT ILLNESS: Manisha Keith is a 74 year old female. No chief complaint on file. Right lower ext. Red, warm to touch, and itches. Started about 4 days ago Has Hx of cellulitis but also allergic to elastic in tend hose Labs reviewed from [facility]- showed stage III a CKD Can't afford inhalers so taking none PAST MEDICAL HISTORY: PAST MEDICAL HISTORY Diagnosis Date Allergic rhinitis, cause unspecified Arthritis Asthma Childhood asthma Breast cancer (HCC) age 34-had lump, cancerous cells. no issues since, left Diverticulosis of colon (without mention of hemorrhage) Ground glass opacity present on imaging of lung Heme positive stool 2010 History of cervical cancer regular Paps for life Hyperlipidemia 2010 Inflammatory polyarthritis (HCC) Dr. 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) Sleep apnea Not on CPAP Type II or unspecified type diabetes mellitus without mention of complication, not stated as uncontrolled Unspecified essential hypertension PAST SURGICAL HISTORY Procedure Laterality Date ABDOMINAL SURGERY HX hx of feeding tube inserted APPENDECTOMY HX COLONOSCOPY FLX DX W/COLLJ SPEC WHEN PFRMD 06/26/2009 COLONOSCOPY FLX DX W/COLLJ SPEC WHEN PFRMD 04/10/2019 Colonoscopy COLONOSCOPY SCREENING 02/11/2022 Dr Olivas EGD 2010 EGD 02/11/2022 Dr Olivas ERCP DX COLLECTION SPECIMEN BRUSHING/WASHING 07/23/2008 Cholangiopancreatography (ERCP) ESOPHAGOGASTRODUODENOSCOPY TRANSORAL DIAGNOSTIC 04/10/2019 EGD EYE SURGERY HX L'SCOPE CHOLECYSTECTOMY 12/30/2023 MASTECTOMY Left age 34 Mastectomy - simple PAST SURGICAL HISTORY OF nose cauterized inside PAST SURGICAL HISTORY OF removal of skin cancer from right arm PAST SURGICAL HISTORY OF Left 10/11/[address] Scott Sutton REMOVAL GALLBLADDER 2023 [facility] CORNEO-SCLL SCTJ Bilateral Cataract removal BILATERAL TOTAL ABDOMINAL HYSTERECT W/WO RMVL TUBE OVARY age 27 Hysterectomy, MARQUES cervical cancer, has one ovary left ALLERGIES Jesenia Inhibitors, Nsaids (Non-Steroidal Anti-Inflammatory Drug), Tape [Adhesive Tape (Rosins)], and Trulicity [Dulaglutide] MEDICATIONS Current Outpatient Medications Medication Sig esomeprazole (NEXIUM) 20 mg capsule Take 1 capsule by mouth daily before breakfast. 1/2 hr before meal. Omeprazole 20 mg TbEC Take by mouth. aspirin, enteric coated (ASPIRIN, ENTERIC COATED) 81 mg EC tablet Take 81 mg by mouth once daily. jyfpulisyj-lkzfrruk-ewtnutshpp (BREZTRI) 160-9-4.8 mcg/actuation HFA aerosol inhaler Inhale 2 Puffsas instructed two times a day. HUMULIN R U-500, CONC, KWIKPEN 500 unit/mL (3 mL) inpn 40 units 12pm /10 units sq at 5pm/ 25 units at 10pm. Per Dr. Chi. losartan (COZAAR) 100 mg tablet Take 1 tablet by mouth once daily. Blood-Glucose Meter,Continuous (FREESTYLE MITZI 3 READER) [facility] Use as directed. Blood-Glucose Sensor (FREESTYLE MITZI 3 SENSOR) krystyna Use as directed escitalopram oxalate (LEXAPRO) 10 mg tablet Take 1 tablet by mouth once daily. FOLDING WALKER WITH 5 WHEELS Use with ambulation blood sugar diagnostic (BLOOD GLUCOSE TEST) test strip Test blood sugar(s) 3 times daily. Dx: Type 2 DM - Uncontrolled E11.65 Insulin: Yes Blood-Glucose Meter monitoring kit Glucose Meter of Choice - Kit - Dx: Type 2 DM - Controlled E11.9Insulin: Yes Lancets Test blood sugar(s) 3 times daily. Dx: Type 2 DM - Controlled E11.9 Insulin: Yes fluticasone (FLONASE) 50 mcg/actuation nasal spray USE 1 SPRAY IN EACH NOSTRIL ONCE DAILY AT BEDTIME DIRECTED cetirizine (ZYRTEC) 10 mg tablet Take 1 tablet by mouth once daily. hydroCHLOROthiazide 12.5 mg capsule Take 1 capsule by mouth once daily. FOLIC ACID ORAL Take by mouth. atorvastatin (LIPITOR) 20 mg tablet Take 1 tablet by mouth daily at bedtime. For cholesterol. methotrexate 2.5 mg tablet Take 20 mg by mouth every Tuesday. melatonin 3 mg tablet Take 1 tablet at 9PM nightly. insulin needles, DISPOSABLE, (PEN NEEDLE) 31 gauge x 5/16 Use one needle per dose. 4 per day. ondansetron orally disintegrating (ZOFRAN ODT) 4 mg disintegrating tablet DISSOLVE 1 TABLET IN MOUTH THREE TIMES DAILY NEEDED FOR NAUSEA AND VOMITING blood sugar diagnostic (ONETOUCH VERIO TEST STRIPS) test strip Test blood sugar(s) 3-4 times daily.Dx: Other DM Code E11.319 Insulin: Yes Cholecalciferol, Vitamin D3, 50 mcg (2,000 unit) cap Take 1 capsule by mouth once daily. albuterol HFA (PROAIR HFA) 90 mcg/actuation inhaler Inhale 2 Puffs as instructed every 4 hours as needed. blood sugar diagnostic (BLOOD GLUCOSE TEST) test [...] Drops in the left eye twice daily. verapamil SR (CALAN SR) 120 mg CR tablet Take 1 tablet by mouth daily at bedtime. (Patient not taking: Reported on 08/03/2024) oxybutynin ER (DITROPAN XL) 10 mg 24 hr tablet Take 2 tablets by mouth once daily. CPAP/BIPAP/OTHER Type .CPAPSettings into a note to see current settings/supplies/DME information. metoprolol succinate ER (TOPROL XL) 100 mg Take 1 tablet by mouth once daily. gabapentin (NEURONTIN) 300 mg capsule Take 1 capsule by mouth daily at bedtime. No current facility-administered medications for this visit. FAMILY HISTORY Problem Relation Age of Onset Alcohol abuse Mother None Father Cave in Stroke Sister Cancer Sister COPD Sister No Known Problems Brother No Known Problems Brother Breast Cancer Maternal Aunt Primary Biliary Cirrhosis Daughter Social History Tobacco Use Smoking status: Former Current packs/day: 0.00 Average packs/day: 0.8 packs/day for 30.0 years (22.5 ttl pk-yrs) Types: Cigarettes Start date: 08/15/1970 Quit date: 08/15/2000 Years since quittin.9 Passive exposure: Never Smokeless tobacco: Never Vaping Use Vaping status: Never Used Substance Use Topics Alcohol use: Never Comment: rarely Drug use: No EXAM: BP 148/72 Pulse 84 Temp 36.4 C (97.5 F) (Tympanic) Resp 16 Wt 86.6 kg (191 lb) SpO2 96% BMI 36.09 kg/m PHYSICAL EXAM: Physical Exam Vitals reviewed. Constitutional: Appearance: Normal appearance. Cardiovascular: Rate and Rhythm: Normal rate and regular rhythm. Pulses: Normal pulses. Heart sounds: Normal heart sounds. Pulmonary: Effort: Pulmonary effort is normal. Breath sounds: Normal breath sounds. Abdominal: General: There is no distension. Palpations: Abdomen is soft. Tenderness: There is no abdominal tenderness. There is no guarding. Musculoskeletal: Comments: Hip OA that prohibits foot care Walks w/o assistive device Neurological: Mental Status: She is alert. LABS: ASSESSMENT/PLAN: 1. Onychomycosis - ICD9: 110.1, ICD10: B35.1 (primary diagnosis) Ongoing - CONSULT TO PODIATRY 2. Bronchitis - ICD9: 490, ICD10: J40 Chronic untreated d/t cost of inhaler - ALBUTEROL SULFATE HFA 90 MCG/ACTUATION AEROSOL INHALER 3. Essential hypertension - ICD9: 401.9, ICD10: I10 - Uncontrolled- did not take BP medicationtoday yet - Recommend home blood pressure monitoring, to bring results to next visit - Encouraged sodium restriction, DASH or Mediterranean diet - Recommend regular aerobic exercise - METOPROLOL SUCCINATE ER 100 MG TABLET,EXTENDED RELEASE 24 HR 4. Essential tremor - ICD9: 333.1, ICD10: G25.0 Stable - METOPROLOL SUCCINATE ER 100 MG TABLET,EXTENDED RELEASE 24 HR 5. Seasonal allergic rhinitis, unspecified trigger - ICD9: 477.9, ICD10: J30.2 Uses Flonase 6. Lumbar pain - ICD9: 724.2, ICD10: M54.50 Stable 7. OAB (overactive bladder) - ICD9: 596.51, ICD10: N32.81 Uses oxybutin 8. Cellulitis of skin - ICD9: 682.9, ICD10: L03.90 - Begin treatment with doxycycline - DOXYCYCLINE HYCLATE 100 MG CAPSULE - AMMONIUM LACTATE 12 % LOTION 9. Asthma with chronic obstructive pulmonary disease (COPD) (HCC) - ICD9: 493.20, ICD10: J44.89 - Mild intermittent asthma can't afford inhalers - Avoidance of triggers recommended - ALBUTEROL SULFATE HFA 90 MCG/ACTUATION AEROSOL INHALER - FLUTICASONE 250 MCG-SALMETEROL 50 MCG/DOSE BLISTR POWDR FOR INHALATION Discussed treatment plan and patient voices understanding. Patient's questions answered appropriately. Medications and potential side effects were discussed and patient voices understanding. Return to the office as scheduled or as needed for worsening/no improvement. Claire Lancaster APRN.CHRISTA [facility] Tele[facility] encounter Note * Telephone Encounter - Areli Salas LPN - 07/09/2024 12:55 PM EST Looks like just or she wasn't taking anymore. Ok to fill? [facility] Miscellaneous Notes* Telephone Encounter - Areli Salas LPN - 07/09/2024 12:55 PM EST Looks like just or she wasn't taking anymore. Ok to fill? * Telephone Encounter - Marissa Rothman - 07/09/2024 12:44 PM EST Manisha is calling Ilir Hernández MD today requesting a refill on an medication. esomeprazole 20 mg capsule Please send to [facility] documented in this [facility]11[facility]24 Telephone encounter Note * Telephone Encounter - Marissa Rothman - 07/09/2024 12:44 PM EST Manisha is calling Ilir Hernández MD today requesting a refill on an medication. esomeprazole 20 mg capsule Please send to [facility]10-[facility] History of Present illness Narrative* Deepti Callahan APRN.[employer] - 05/28/2024 2:00 PM EDT Images from the original note were not included. [facility] Follow up/ Established patient visit Date of last visit : 02/20/2024 The following Impression/Plan was copied and pasted from the patient's last [facility] visit on 02/20/24: IMPRESSION: Ricardo (obstructive sleep apnea) (primary encounter diagnosis) Nocturnal hypoxemia Manisha Keith is a 73 year old female with PMH of severe RICARDO, nocturnal hypoxia, insomnia, longsleep. She reports using PAP at least 4 hrs per night every night. She reports subjective benefits. We will get a download to [employer] if controlling AHI She needs the CMN signed for DME [facility], we haven't received it Will again order overnight oximetry on auto biPAP, she isn't on supplemental O2 PLAN: - Continue Auto Bilevel PAP as above - Remember to clean your mask and equipment regularly, as directed. - You should be eligible for new supplies approximately every 3-6 months, depending on your insurance coverage. Contact your Durable Medical Equipment (DME) company for new supplies as needed. - Follow up in 3-6 months with JULIANNE. Deepti Callahan APRN.[employer] Here for follow up for severe RICARDO. Since her last appointment she returned her auto BiPAP to [facility]. Says she was unable to fall asleep with PAP. Had tried PAP therapy twice before. SLEEP APNEA Sleep apnea type : RICARDO, Most Recent Apnea-Hypopnea Index (AHI): 46 on HSAT Treatment : none SLEEP HYGIENE QUESTIONS: Bedtime : MN Wake up Time : 11 am Time it takes to fall sleep : right away Number of times patient wakes up per night : 2+, awake for 30 min Reason (s) why patient wakes up during the night : urination, unknown Estimated total sleep time ( in a 24 hour period of time) : 12 Naps : only unintentional in the chair PATIENT-ENTERED QUESTIONNAIRE SLEEP SCORES 09/05/2019 Sleep Questions Reason for visit: Difficulty falling or staying asleep or poor sleep quality On average, hours of sleep in 24 hours: 12 Accidents or near accidents due to drowsy drivin 09/05/2019 [place] Sleepiness Scale Score 12 (Excessive daytime sleepiness present) 09/05/2019 PROMIS CAT Sleep Disturbance PROMIS Sleep Disturbance T-Score 52 (within normal limits) PROMIS Sleep Disturbance Percentile 42 09/05/2019 Restless Leg Syndrome Score 19 (Moderate symptoms) 09/05/2019 PHQ-9 Score 9 06/05/2019 09/05/2019 06/01/2023 PROMIS Global Health - (T-Scores - the mean of general population = 50. Five points is a clinicallymeaningful difference.) Physical T-Score 39.8 42.3 34.9 Mental T-Score 43.5 43.5 45.8 SLEEP RELATED ROS Review of Systems Constitutional: Positive for fatigue. Negative for recent unintentional weight change. Cardiovascular: Negative for palpitations. Gastrointestinal: Negative for heartburn. Genitourinary: Positive for nocturia. Neurological: Negative for headaches. ALLERGIES Allergen Reactions Jesenia Inhibitors Cough Nsaids (Non-Steroid* GI Upset Tape [Adhesive Tape* Other: See Comments Blisters from surgical tape Trulicity [Dulaglut* Other: See Comments Gastroparesis CURRENT MEDICATIONS: Omeprazole 20 mg TbEC Take by mouth. aspirin, enteric coated (ASPIRIN, ENTERIC COATED) 81 mg EC tablet Take 81 mg by mouth once daily. wuwxzadtcd-lsnuqbwj-qnnqjzrqic (BREZTRI) 160-9-4.8 mcg/actuation HFA aerosol inhaler Inhale 2 Puffsas instructed two times a day. verapamil SR (CALAN SR) 120 mg CR tablet Take 1 tablet by mouth daily at bedtime. HUMULIN R U-500, CONC, KWIKPEN 500 unit/mL (3 mL) inpn 40 units 12pm /10 units sq at 5pm/ 25 units at 10pm. Per Dr. Chi. oxybutynin ER (DITROPAN XL) 10 mg 24 hr tablet Take 2 tablets by mouth once daily. metoprolol succinate ER (TOPROL XL) 100 mg Take 1 tablet by mouth once daily. losartan (COZAAR) 100 mg tablet Take 1 tablet by mouth once daily. Blood-Glucose Meter,Continuous (FREESTYLE MITZI 3 READER) misc Use as directed. Blood-Glucose Sensor (FREESTYLE MITZI 3 SENSOR) krystyna Use as directed escitalopram oxalate (LEXAPRO) 10 mg tablet Take 1 tablet by mouth once daily. FOLDING WALKER WITH 5 WHEELS Use with ambulation blood sugar diagnostic (BLOOD GLUCOSE TEST) test strip Test blood sugar(s) 3 times daily. Dx: Type 2 DM - Uncontrolled E11.65 Insulin: Yes Blood-Glucose Meter monitoring kit Glucose Meter of Choice - Kit - Dx: Type 2 DM - Controlled E11.9Insulin: Yes Lancets Test blood sugar(s) 3 times daily. Dx: Type 2 DM - Controlled E11.9 Insulin: Yes fluticasone (FLONASE) 50 mcg/actuation nasal spray USE 1 SPRAY IN EACH NOSTRIL ONCE DAILY AT BEDTIME DIRECTED cetirizine (ZYRTEC) 10 mg tablet Take 1 tablet by mouth once daily. hydroCHLOROthiazide 12.5 mg capsule Take 1 capsule by mouth once daily. gabapentin (NEURONTIN) 300 mg capsule Take 1 capsule by mouth daily at bedtime. FOLIC ACID ORAL Take by mouth. atorvastatin (LIPITOR) 20 mg tablet Take 1 tablet by mouth daily at bedtime. For cholesterol. methotrexate 2.5 mg tablet Take 20 mg by mouth every Tuesday. melatonin 3 mg tablet Take 1 tablet at 9PM nightly. insulin needles, DISPOSABLE, (PEN NEEDLE) 31 gauge x 5/16 Use one needle per dose. 4 per day. ondansetron orally disintegrating (ZOFRAN ODT) 4 mg disintegrating tablet DISSOLVE 1 TABLET IN MOUTH THREE TIMES DAILY NEEDED FOR NAUSEA AND VOMITING blood sugar diagnostic (ONETOUCH VERIO TEST STRIPS) test strip Test blood sugar(s) 3-4 times daily.Dx: Other DM Code E11.319 Insulin: Yes Cholecalciferol, Vitamin D3, 50 mcg (2,000 unit) cap Take 1 capsule by mouth once daily. albuterol HFA (PROAIR HFA) 90 mcg/actuation inhaler Inhale 2 Puffs as instructed every 4 hours as needed. blood sugar diagnostic (BLOOD GLUCOSE TEST) test [...] Drops in the left eye twice daily. CPAP/BIPAP/OTHER Type .CPAPSettings into a note to see current settings/supplies/DME information. (Patient not taking: Reported on 05/28/2024) PHYSICAL EXAMINATION: Vital Signs: BP 139/76 Pulse 80 Resp 16 Wt 83.9 kg (185 lb) SpO2 98% BMI 34.96 kg/m PHYSICAL EXAM: General appearance: pleasant, NAD Mental status: alert and oriented, able to provide own history Constitutional: obese Skin: No visible rashes on exposed skin Neuro: No focal deficits observed, no tremors IMPRESSION/PLAN: Ricardo (obstructive sleep apnea) (primary encounter diagnosis) Long sleeper Non-restorative sleep Intolerance of continuous positive airway pressure (cpap) ventilation Manisha Keith is a 74 year old female with PMH of severe RICARDO, PAP intolerance, long sleeper, non-restorative sleep, HTN, obesity, HLD, SVT, DM2, CKD, inflammatory arthritis, cough variant asthma She returned her auto biPAP to [facility]. Tried PAP therapy twice before. Doesn't want to try PAP therapy again. She does understand the risks involved of untreated severe RICARDO. We discussed hypoglossal nerve stimulation ([facility]) as an option for treating severe RICARDO in a person who doesn't tolerate PAP. She declines referral to Sleep Surgery at this time but is interested in [facility] (doesn't have time to go now, needs to drive her daughter to appts). Follow up prn Deepti Callahan APRN.CHRISTA documented in this [facility]10-[facility]24 NoteHNO ID: [id number] Author: DEEPTI CALLAHAN APRN.CNP Service: ? Author Type: Nurse Practitioner Type: Progress Notes Filed: 05/28/2024 14:45 Note Text: [facility] Follow up/ Established patient visit Date of last visit : 02/20/2024 The following Impression/Plan was copied and pasted from the patient's last [facility] visit on 02/20/24: IMPRESSION: Ricardo (obstructive sleep apnea) (primary encounter diagnosis) Nocturnal hypoxemia Manisha Keith is a 73 year old female with PMH of severe RICARDO, nocturnal hypoxia, insomnia, long sleep. She reports using PAP at least 4 hrs per night every night. She reports subjective benefits. We will get a download to [employer] if controlling AHI She needs the CMN signed for [facility], we haven't received it Will again order overnight oximetry on auto biPAP, she isn't on supplemental O2 PLAN: - Continue Auto Bilevel PAP as above - Remember to clean your mask and equipment regularly, as directed. - You should be eligible for new supplies approximately every 3-6 months, depending on your insurance coverage. Contact your [employer] (DME) company for new supplies as needed. - Follow up in 3-6 months with JULIANNE. Deepti Callahan APRN.MATERIAL LOADER Here for follow up for severe RICARDO. Since her last appointment she returnedher auto BiPAP to [facility]. Says she was unable to fall asleep with PAP. Had tried PAP therapy twice before. SLEEP APNEA Sleep apnea type : RICARDO, Most Recent Apnea-Hypopnea Index (AHI): 46 on HSAT Treatment : none SLEEP HYGIENE QUESTIONS: Bedtime : MN Wake up Time : 11 am Time it takes to fall sleep : right away Number of times patient wakes up per night : 2+, awake for 30 min Reason (s) why patient wakes up during the night : urination, unknown Estimated total sleep time ( in a 24 hour period of time) : 12 Naps : only unintentional in the chair PATIENT-ENTERED QUESTIONNAIRE SLEEP SCORES 09/05/2019 Sleep Questions Reason for visit: Difficulty falling or staying asleep or poor sleep quality On average, hours of sleep in 24 hours: 12 Accidents or near accidents due to drowsy drivin 09/05/2019 [place] Sleepiness Scale Score 12 (Excessive daytime sleepiness present) 09/05/2019 PROMIS CAT Sleep Disturbance PROMIS Sleep Disturbance T-Score 52 (within normal limits) PROMIS Sleep Disturbance Percentile 42 09/05/2019 Restless Leg Syndrome Score 19 (Moderate symptoms) 09/05/2019 PHQ-9 Score 9 06/05/2019 09/05/2019 06/01/2023 PROMIS Global Health - (T-Scores - the mean of general population = 50. Five points is a clinically meaningful difference.) Physical T-Score 39.8 42.3 34.9 Mental T-Score 43.5 43.5 45.8 SLEEP RELATED ROS Review of Systems Constitutional: Positive for fatigue. Negative for recent unintentional weight change. Cardiovascular: Negative for palpitations. Gastrointestinal: Negative for heartburn. Genitourinary: Positive for nocturia. Neurological: Negative for headaches. ALLERGIES Allergen Reactions Jesenia Inhibitors Cough Nsaids (Non-Steroid* GI Upset Tape [Adhesive Tape* Other: See Comments Blisters from surgical tape Trulicity [Dulaglut* Other: See Comments Gastroparesis CURRENT MEDICATIONS: Omeprazole 20 mg TbEC Take by mouth. aspirin, enteric coated (ASPIRIN, ENTERIC COATED) 81 mg EC tablet Take 81 mg by mouth once daily. zyuhdetphu-pgdbvbdq-jxstaovvcn (BREZTRI) 160-9-4.8 mcg/actuation HFA aerosol inhaler Inhale 2 Puffs as instructed two times a day. verapamil SR (CALAN SR) 120 mg CR tablet Take 1 tablet by mouth daily at bedtime. HUMULIN R U-500, CONC, KWIKPEN 500 unit/mL (3 mL) inpn 40 units 12pm /10 units sq at 5pm/ 25 units at 10pm. Per Dr. Chi. oxybutynin ER (DITROPAN XL) 10 mg 24 hr tablet Take 2 tablets by mouth once daily. metoprolol succinate ER (TOPROL XL) 100 mg Take 1 tablet by mouth once daily. losartan (COZAAR) 100 mg tablet Take 1 tablet by mouth once daily. Blood-Glucose Meter,Continuous (FREESTYLE MITZI 3 READER) misc Use as directed. Blood-Glucose Sensor (FREESTYLE MITZI 3 SENSOR) krystyna Use as directed escitalopram oxalate (LEXAPRO) 10 mg tablet Take 1 tablet by mouth once daily. FOLDING WALKER WITH 5 WHEELS Use with ambulation blood sugar diagnostic (BLOOD GLUCOSE TEST) test strip Test blood sugar(s) 3 times daily. Dx: Type 2 DM - Uncontrolled E11.65 Insulin: Yes Blood-Glucose Meter monitoring kit Glucose Meter of Choice - Kit - Dx: Type 2 DM - Controlled E11.9 Insulin: Yes Lancets Test blood sugar(s) 3 times daily. Dx: Type 2 DM - Controlled E11.9 Insulin: Yes fluticasone (FLONASE) 50 mcg/actuation nasal spray USE 1 SPRAY IN EACH NOSTRIL ONCE DAILY AT BEDTIME DIRECTED cetirizine (ZYRTEC) 10 mg tablet Take 1 tablet by mouth once daily. hydroCHLOROthiazide 12.5 mg capsule Take 1 capsule (more content not included)...[facility]08-30-[facility]24 Telephone encounter Note* Telephone Encounter - Mariia Mart LPN - 04/13/2024 3:25 PM EDT Spoke with Leeanne at [facility], Miscommunication on which PPI patient was using at her most recent office visit. She will reinstate the Nexium RX from Dr. Hernández. Mariia Mart LPN [facility]08-30-2024 Miscellaneous Notes* Telephone Encounter - Mariia Mart LPN - 04/13/2024 3:25 PM EDT Spoke with Leeanne at [facility], Miscommunication on which PPI patient was using at her most recent office visit. She will reinstate the Nexium RX from Dr. Hernández. Mariia Mart LPN * Telephone Encounter - Juan Ybarra RN - 04/13/2024 2:56 PM EDT Pt called in asking about why esomeprazole was canceled. I let her know it was canceled by Dr Gardiner it looks like she wanted her to take omeprazole, but she didn't call it in she she may want herto get it OTC. Pt was put through to Pulmonary, because I wasn't sure why she changed the medication. [facility] Telephone encounter Note * Telephone Encounter - Mariia Mart LPN - 04/13/2024 3:20 PM EDT Duplicate encounter Mariia Mart LPN [facility]08-30-2024 Miscellaneous Notes* Telephone Encounter - Mariia Mart LPN - 04/13/2024 3:20 PM EDT Duplicate encounter Mariia Mart LPN * Telephone Encounter - Ghislaine Yoon RN - 04/13/2024 2:59 PM EDT Manisha called, verified name and date of . [facility] she was seen on [facility]/03/2024, but Manisha was never told. She would like to speak with someone in the pulmonary office. Ghislaine Yoon RN April 13, 2024 3:00 PM documented in this [facility]24 Telephone encounter Note * Telephone Encounter - Ghislaine Yoon RN - 04/13/2024 2:59 PM EDT Manisha called, verified name and date of . She went to pickup her Nexium at [facility] was told that Dr. Owen discontinued it when she was seen on 04/03/2024, but Manisha was never told. She would like to speak with someone in the pulmonary office. Ghislaine Yoon RN April 13, 2024 3:00 PM [facility]08-30-2024 Telephone encounter Note* Telephone Encounter - Juan Ybarra RN - 04/13/2024 2:56 PM EDT Pt called in asking about why esomeprazole was canceled. I let her know it was canceled by Dr Gardiner it looks like she wanted her to take omeprazole, but she didn't call it in she she may want herto get it OTC. Pt was put through to Pulmonary, because I wasn't sure why she changed the medication. [facility]08-28-2024 Telephone encounter Note* Telephone Encounter - Areli Salas LPN - 04/11/2024 10:07 AM EDT Patient notified. [facility]08-28-2024 Miscellaneous Notes* Telephone Encounter - Areli Salas LPN - 04/11/2024 10:07 AM EDT Patient notified. * Telephone Encounter - Areli Salas LPN - 04/06/2024 4:34 PM EDT Left message to call and speak with nurse. * Telephone Encounter - Areli Salas LPN - 04/06/2024 4:29 PM EDT ----- Message from Claire Lancaster sent at 04/06/2024 12:36 PM EDT ----- Renal function is okay. Blood sugar still high. [facility] in [facility]24 Telephone encounter Note * Telephone Encounter - Areli Salas LPN - 04/06/2024 4:34 PM EDT Left message to call and speak with nurse. [facility]08-23-2024 Telephone encounter Note* Telephone Encounter - Areli Salas LPN - 04/06/2024 4:29 PM EDT ----- Message from Claire Lancaster sent at 04/06/2024 12:36 PM EDT ----- Renal function is okay. Blood sugar still high. [facility]08-20-2024 History of Present illness Narrative* Yunier Owen MD - 04/03/2024 12:45 PM EDT Images from the original note were not included. . [facility] [place] Note Patient name: Manisha Keith PCP: Ilir Hernández MD CC: Hospital follow-up HPI: Manisha Keith 73 year old female former [id number] smoker, quitting in 2000 with PMH significant for obesity, childhood asthma, allergies, HLD, inflammatory arthritis on methotrexate, RICARDO on CPAP, DM2, HTN, GERD, osteoporosis and lung nodules. She was seen in pulmonary clinic for chroniccough which was felt to be multifactorial including possible asthma, GERD and upper airway cough syndrome. Laboratory testing pertinent for peripheral eosinophilia, methacholine challenge testing officially negative but patient had an FEV1 drop of almost 20% at last dose of methacholine, chest imaging notable for right upper lobe groundglass nodule. Started on inhaled therapy with Trelegy Ellipta. Unable to afford inhaled therapy so she has not been on any medication since her last visit. Consulted interventional pulmonary for possible navigational bronchoscopy. Dr. Eldridge opined that noduleappeared stable and recommended repeat imaging at 1 year with superdimension bronchoscopy protocol which is due in September 2024. Since last office visit, patient was hospitalized at [facility] in November for COPD exacerbation. She had a CTA chest performed at that time which showed stability of her nodule. She was treated for pneumonia although there was no clear infiltrate on chest CT, more consistent with atelectasis. She was to follow-up at that time but in the interim developed acute cholecystitis requiring cholecystectomy and more recently hip fracture due to a fall. From a pulmonary standpoint she continues to have some cough more prominent in the morning associated with some clear to yellow sputum production. He has significant sinus congestion, facial pressure and drainage. Cough does not occur throughout the day. No wheezing, chest pain or significant dyspnea. DATA: Reviewed EMR and images from [facility] Imaging / Diagnostic Studies: [facility] Imaging Services [address] [place] [address] CTA Chest W/WO Contrast MR#: [id number] Acct: [id number] Name: MANISHA KEITH Rep #: [id number] : 1950 F 73 PCP: Dr. Ilir Hernández MD Status: [facility] Study: CTA Chest W/WO Contrast Date of Exam: 11/17/23 STUDY: CTA CHEST REASON FOR EXAM: Female, 73 years old. Hypoxia, recent surgery COMPARISON: Comparison is made with prior study dated June 21, 2023. Comparison is made with prior chest radiograph done earlier today. FINDINGS: Normal enhancement of the main pulmonary artery and right and left pulmonary arteries. Normal enhancement of the bilateral peripheral pulmonary arteries. There is no demonstrated pulmonary embolism. Normal thoracic aorta and visualized great vessels. There is no demonstrated aortic dissection. Minimal anterior pericardial thickening. There are calcifications of the coronary arteries. There are visualized mediastinal lymph nodes, which are within normal size limits, and with normal morphology. Normal hilar regions. Normal visualized trachea and bronchi. The lungs are well expanded. Stable 1.1 cm nodule in the right lung apex. Increased interstitial markings with subpleural blebs in both lower lobes suggestive of a scarring. There has been improvement as compared to prior study. Normal pleura. Normal chest wall structures. There are degenerative changes of thoracic spine. Multiple gallstones. Stable left adrenal adenoma. This measures [address]/CTA Chest W/WO Contrast IMPRESSION: No evidence of pulmonary embolism. Findings suggestive of scarring at the lung bases with superimposed atelectasis. Cholelithiasis. Stable 2 cm left adrenal adenoma. I personally reviewed the images which shows stability of groundglass right upper lobe nodule and small left upper lobe subpleural nodule Chest CT 09/2023: PAST MEDICAL HISTORY No date: Allergic rhinitis, cause unspecified No date: Arthritis No date: Asthma Comment: Childhood asthma No date: Breast cancer (HCC) Comment: age 34-had lump, cancerous cells. no issues since, left No date: Diverticulosis of colon (without mention of hemorrhage) No date: Ground glass opacity present on imaging of lung 2011: Heme positive stool No date: History of cervical cancer Comment: regular Paps for life 2011: Hyperlipidemia No date: Inflammatory polyarthritis ([facility]) Comment: Dr. Johnson No date: Internal hemorrhoids without mention of complication No date: Osteoarthrosis, unspecified whether generalized or localized, other specified sites No date: Osteoporosis, unspecified No date: Other and unspecified hyperlipidemia No date: Reflux esophagitis No date: Retinopathy due to secondary diabetes mellitus ([facility]) No date: Sleep apnea Comment: Not on CPAP No date: Type II or unspecified type diabetes mellitus without mention of complication, not stated as uncontrolled No date: Unspecified essential hypertension ALLERGIES Allergen Reactions Jesenia Inhibitors Cough Nsaids (Non-Steroid* GI Upset Tape [Adhesive Tape* Other: See Comments Blisters from surgical tape Trulicity [Dulaglut* Other: See Comments Gastroparesis aspirin, enteric coated (ASPIRIN, ENTERIC COATED) 81 mg EC tablet Take 81 mg by mouth once daily. verapamil SR (CALAN SR) 120 mg CR tablet Take 1 tablet by mouth daily at bedtime. HUMULIN R U-500, CONC, KWIKPEN 500 unit/mL (3 mL) inpn 40 units 12pm /10 units sq at 5pm/ 25 units at 10pm. Per Dr. Chi. oxybutynin ER (DITROPAN XL) 10 mg 24 hr tablet Take 2 tablets by mouth once daily. metoprolol succinate ER (TOPROL XL) 100 mg Take 1 tablet by mouth once daily. losartan (COZAAR) 100 mg tablet Take 1 tablet by mouth once daily. escitalopram oxalate (LEXAPRO) 10 mg tablet Take 1 tablet by mouth once daily. fluticasone (FLONASE) 50 mcg/actuation nasal spray USE 1 SPRAY IN EACH NOSTRIL ONCE DAILY AT BEDTIME DIRECTED cetirizine (ZYRTEC) 10 mg tablet Take 1 tablet by mouth once daily. hydroCHLOROthiazide 12.5 mg capsule Take 1 capsule by mouth once daily. gabapentin (NEURONTIN) 300 mg capsule Take 1 capsule by mouth daily at bedtime. FOLIC ACID ORAL Take by mouth. atorvastatin (LIPITOR) 20 mg tablet Take 1 tablet by mouth daily at bedtime. For cholesterol. methotrexate 2.5 mg tablet Take 20 mg by mouth every Tuesday. melatonin 3 mg tablet Take 1 tablet at 9PM nightly. ondansetron orally disintegrating (ZOFRAN ODT) 4 mg disintegrating tablet DISSOLVE 1 TABLET IN MOUTH THREE TIMES DAILY NEEDED FOR NAUSEA AND VOMITING Cholecalciferol, Vitamin D3, 50 mcg (2,000 unit) cap Take 1 capsule by mouth once daily. albuterol HFA (PROAIR HFA) 90 mcg/actuation inhaler Inhale 2 Puffs as instructed every 4 hours as needed. Omeprazole 20 mg TbEC Take by mouth. yfcdmboqbx-fhoqcqmn-yaeanyqvpf (BREZTRI) 160-9-4.8 mcg/actuation HFA aerosol inhaler Inhale 2 Puffsas instructed two times a day. CPAP/BIPAP/OTHER Type .CPAPSettings into a note to see current settings/supplies/DME information. Blood-Glucose Meter,Continuous (FREESTYLE MITZI 3 READER) misc Use as directed. Blood-Glucose Sensor (FREESTYLE MITZI 3 SENSOR) krystyna Use as directed FOLDING WALKER WITH 5 WHEELS Use with ambulation blood sugar diagnostic (BLOOD GLUCOSE TEST) test strip Test blood sugar(s) 3 times daily. Dx: Type 2 DM - Uncontrolled E11.65 Insulin: Yes Blood-Glucose Meter monitoring kit Glucose Meter of Choice - Kit - Dx: Type 2 DM - Controlled E11.9Insulin: Yes Lancets Test blood sugar(s) 3 times daily. Dx: Type 2 DM - Controlled E11.9 Insulin: Yes insulin needles, DISPOSABLE, (PEN NEEDLE) 31 gauge x 5/16 Use one needle per dose. 4 per day. blood sugar diagnostic (ONETOUCH VERIO TEST STRIPS) test strip Test blood sugar(s) 3-4 times daily.Dx: Other DM Code E11.319 Insulin: Yes blood sugar diagnostic (BLOOD GLUCOSE TEST) test [...] Drops in the left eye twice daily. Social History Tobacco Use Smoking status: Former Current packs/day: 0.00 Average packs/day: 0.8 packs/day for 30.0 years (22.5 ttl pk-yrs) Types: Cigarettes Start date: 08/15/1970 Quit date: 08/15/2000 Years since quittin.6 Passive exposure: Never Smokeless tobacco: Never Vaping Use Vaping status: Never Used Substance Use Topics Alcohol use: Never Comment: rarely Drug use: No FAMILY HISTORY Problem Relation Age of Onset Alcohol abuse Mother None Father Cave in Stroke Sister Cancer Sister COPD Sister No Known Problems Brother No Known Problems Brother Breast Cancer Maternal Aunt Primary Biliary Cirrhosis Daughter PAST SURGICAL HISTORY No date: ABDOMINAL SURGERY HX Comment: hx of feeding tube inserted No date: APPENDECTOMY HX 06/26/2009: COLONOSCOPY FLX DX W/COLLJ SPEC WHEN PFRMD 04/10/2019: COLONOSCOPY FLX DX W/COLLJ SPEC WHEN PFRMD Comment: Colonoscopy 02/11/2022: COLONOSCOPY SCREENING Comment: Dr Olivas 2010: EGD 02/11/2022: EGD Comment: Dr Olivas 07/23/2008: ERCP DX COLLECTION SPECIMEN BRUSHING/WASHING Comment: Cholangiopancreatography (ERCP) 04/10/2019: ESOPHAGOGASTRODUODENOSCOPY TRANSORAL DIAGNOSTIC Comment: EGD No date: EYE SURGERY HX 12/30/2023: L'SCOPE CHOLECYSTECTOMY age 34: MASTECTOMY; Left Comment: Mastectomy - simple No date: PAST SURGICAL HISTORY OF Comment: nose cauterized inside No date: PAST SURGICAL HISTORY OF Comment: removal of skin cancer from right arm 10/11/2023: PAST SURGICAL HISTORY OF; Left Comment: ORIF left hip Dr Scott Sutton 2023: REMOVAL GALLBLADDER No date: RMVL SEC [facility]BRANOUS CTRC CORNEO-SCLL SCTJ; Bilateral Comment: Cataract removal BILATERAL age 27: TOTAL ABDOMINAL HYSTERECT W/WO RMVL TUBE OVARY Comment: Hysterectomy, MARQUES cervical cancer, has one ovary left PMH, Social history, family history and surgical history reviewed and updated in EMR REVIEW OF SYSTEMS: CONSTITUTIONAL: No fevers, chills, nightsweats, unintended weight loss HEENT: Positive nasal congestion/sinus symptoms, headaches, postnasal drip CARDIOVASCULAR: No chest pain, dyspnea, palpitations PULM: See HPI GI: No dysphagia/odynophagia, problematic reflux INTEGUMENTARY: No new skin changes PHYSICAL EXAMINATION: BP 126/62 Pulse 74 Resp 15 Wt 185 lb (83.9kg) SpO2 94% General Appearance: Obese female, NAD. Skin: Skin color, turgor normal, no suspicious rashes or lesions. Dry skin Head: Normocephalic, no masses, lesions, tenderness or abnormalities. Eyes: Sclera, conjunctiva normal. Oropharynx: No oral lesions or thrush. Neck: No JVD, no masses, no adenopathy. Lungs: Not labored, normal to percussion, no wheezes. Heart: Regular rate and rhythm, no murmurs or gallops. Extremities: Nonpitting edema, no clubbing. Assessment/Plan: 1. Cough variant asthma -Review of patient's drug formulary shows that Breztri should be covered. Prescription sent in for Breztri. Patient was instructed to contact the office if she has trouble affording or obtaining her inhaler 2. Lung nodules -Stable -Due for super dimensional bronchoscopy protocol CT September 2024 3. Postnasal drip -Current cough mainly due to upper airway cough syndrome/postnasal drip -Instructed patient to use OTC nasal spray at bedtime 4. Former cigarette smoker -Former [id number] smoker without COPD -Does not qualify for lung cancer screening based on duration of smoking cessation I spent a total of 40 minutes on the date of the service which included preparing to see the patient, [id number] patient care, completing clinical documentation, obtaining and/or reviewing separately obtained history, performing a medically appropriate examination, and independently interpreting r esults (not separately reported). Yunier Owen MD [facility] [place] [facility] NoteHNO ID: [id number] Author: YUNIER OWEN MD Service: ? Author Type: Physician Type: Progress Notes Filed: 04/03/2024 13:58 Note Text: . [facility] [place] Note Patient name: Manisha Keith PCP: Ilir Hernández MD CC: Hospital follow-up HPI: Manisha Keith 73 year old female former [id number] smoker, quitting in 2000 with PMH significant for obesity, childhood asthma, allergies, HLD, inflammatory arthritis on methotrexate, RICARDO on CPAP, DM2, HTN, GERD, osteoporosis and lung nodules. She was seen in pulmonary clinic for chronic cough which was felt to be multifactorial including possible asthma, GERD and upper airway cough syndrome. Laboratory testing pertinent for peripheral eosinophilia, methacholine challenge testing officially negative but patient had an FEV1 drop of almost 20% at last dose of methacholine, chest imaging notable for right upper lobe groundglass nodule. Started on inhaled therapy with Trelegy Ellipta. Unable to afford inhaled therapy so she has not been on any medication since her last visit. Consulted interventional pulmonary for possible navigational bronchoscopy. Dr. Eldridge opined that nodule appeared stable and recommended repeat imaging at 1 year with superdimension bronchoscopyprotocol which is due in September 2024. Since last office visit, patient was hospitalized at [facility] in November for COPD exacerbation. She had a CTA chest performed at that time which showed stability of her nodule. She was treated for pneumonia although there was no clear infiltrate on chest CT, more consistent with atelectasis. She was to follow-up at that time but in the interim developed acute cholecystitis requiring cholecystectomy and more recently hip fracture due to a fall. From a pulmonary standpoint she continues to have some cough more prominent in the morning associated with some clear to yellow sputum production. He has significant sinus congestion, facial pressure and drainage. Cough does not occur throughout the day. No wheezing, chest pain or significant dyspnea. DATA: Reviewed EMR and images from [facility] Imaging / Diagnostic Studies: [facility] Imaging Services [address] [place] [address] CTA Chest W/WO Contrast MR#: [id number] Acct: [id number] Name: MANISHA KEITH Rep #: [id number] : 1950 F 73 PCP: Dr. Ilir Hernández MD Status: [facility] Study: CTA Chest W/WO Contrast Date of Exam: 11/17/23 STUDY: CTA CHEST REASON FOR EXAM: Female, 73 years old. Hypoxia, recent surgery COMPARISON: Comparison is made with prior study dated June 21, 2023. Comparison is made with prior chest radiograph done earlier today. FINDINGS: Normal enhancement of the main pulmonary artery and right and left pulmonary arteries. Normal enhancement of the bilateral peripheral pulmonary arteries. There is no demonstrated pulmonary embolism. Normal thoracic aorta and visualized great vessels. There is no demonstrated aortic dissection. Minimal anterior pericardial thickening. There are calcifications of the coronary arteries. There are visualized mediastinal lymph nodes, which are within normal size limits, and with normal morphology. Normal hilar regions. Normal visualized trachea and bronchi. The lungs are well expanded. Stable 1.1 cm nodule in the right lung apex. Increased interstitial markings with subpleural blebs in both lower lobes suggestive of a scarring. There has been improvement as compared to prior study. Normal pleura. Normal chest wall structures. There are degenerative changes of thoracic spine. Multiple gallstones. Stable left adrenal adenoma. This measures [address]/CTA Chest W/WO Contrast IMPRESSION: No evidence of pulmonary embolism. Findings suggestive of scarring at the lung bases with superimposed atelectasis. Cholelithiasis. Stable 2 cm left adrenal adenoma. I personally reviewed the images which shows stability of groundglass right upper lobe nodule and small left upper lobe subpleural nodule Chest CT 09/2023: PAST MEDICAL HISTORY No date: Allergic rhinitis, cause unspecified No date: Arthritis No date: Asthma Comment: Childhood asthma No date: Breast cancer (HCC) Comment: age 34-had lump, cancerous cells. no issues since, left No date: Diverticulosis of colon (without mention of hemorrhage) No date: Ground glass opacity present on imaging of lung 2011: Heme positive stool No date: History of cervical cancer Comment: regular Paps for life 2011: Hyperlipidemia No date: Inflammatory polyarthritis (HCC) Comment: Dr. Johnson No date: Internal hemorrhoids without mention of complication No date: Osteoarthrosis, unspecified whether generalized or localized, other specified sites No date: Osteoporosis, unspecified No date: Other and unspecified hyperlipidemia No date: Reflux esophagitis No rebecca (more content not included)...[facility] Telephone encounter Note* Telephone Encounter - Areli Salas LPN - 03/28/2024 9:37 AM EDT Patient is notified. She will be out of town for a little bit so will recheck after the when she is back. [facility]08-14-2024 Miscellaneous Notes* Telephone Encounter - Areli Salas LPN - 03/28/2024 9:37 AM EDT Patient is notified. She will be out of town for a little bit so will recheck after the when she is back. * Telephone Encounter - Ilir Hernández MD - 03/28/2024 9:12 AM EDT It was her kidney levels. I would not necessarily stop it at the numbers she has. I would push fluids. It was ok the last time we checked here. She may have just been a little dry. Recheck bmp in oneweek * Telephone Encounter - Carmen Price LPN - 03/28/2024 9:02 AM EDT Pt states she had an appt with Dr Vela yesterday & she wants pt to stop taking hydrochlorothiazide d/t elevated liver levels. Pt is asking for Dr Hernández's input. Please advise. Carmen Price LPN [facility] in [facility] Telephone encounter Note * Telephone Encounter - Ilir Hernández MD - 03/28/2024 9:12 AM EDT It was her kidney levels. I would not necessarily stop it at the numbers she has. I would push fluids. It was ok the last time we checked here. She may have just been a little dry. Recheck bmp in oneweek [facility]08-14-2024 Telephone encounter Note* Telephone Encounter - Carmen Price LPN - 03/28/2024 9:02 AM EDT Pt states she had an appt with Dr Vela yesterday & she wants pt to stop taking hydrochlorothiazide d/t elevated liver levels. Pt is asking for Dr Hernández's input. Please advise. Carmen Price LPN [facility]08-08-2024 Telephone encounter Note* Telephone Encounter - Christy Arguello - 03/22/2024 11:31 AM EDT Prescription Refill Information The patient has been identified by name and date of : Yes Caregiver verified no other encounters exist for this prescription request: Yes Caregiver confirmed with patient/requestor that no other refills are due, in the near future, with this provider at this time: Yes The last office visit in the department: 03-19-24 Does the patient have a future office visit with this provider/department: Yes Requested Prescriptions Pending Prescriptions Disp Refills verapamil SR (CALAN SR) 120 mg CR tablet 30 tablet 5 Sig: Take 1 tablet by mouth daily at bedtime. Christy Arguello March 22, 2024 11:31 AM [facility]08-08-2024 Miscellaneous Notes* Telephone Encounter - Christy Arguello - 03/22/2024 11:31 AM EDT Prescription Refill Information The patient has been identified by name and date of : Yes Caregiver verified no other encounters exist for this prescription request: Yes Caregiver confirmed with patient/requestor that no other refills are due, in the near future, with this provider at this time: Yes The last office visit in the department: 03-19-24 Does the patient have a future office visit with this provider/department: Yes Requested Prescriptions Pending Prescriptions Disp Refills verapamil SR (CALAN SR) 120 mg CR tablet 30 tablet 5 Sig: Take 1 tablet by mouth daily at bedtime. Christy Arguello March 22, 2024 11:31 AM documented in this encounter[facility] History of Present illness Narrative* Ysabel Edwards APRN.MATERIAL LOADER - 03/19/2024 3:14 PM EDT This is a 73 year old female who presents today with: Patient presents with: Follow Up HISTORY OF PRESENT ILLNESS: Manisha Keith is a 73 year old female. Patient presents with: Follow Up Pt presents today for follow-up. She follows with Dr. Olivas. She is planning to have stents removed. Abdomen hurts once in a while. Has some occ constipation. Reports that she did see the surgeon and no gallbladder recommendations. Diabetes. Follows with Dr. Chi. Refers that insulin recently adjusted to 40, 10, and 25. Refers sugar last night was 69, which is first lower sugar since medication adjusted. Wears CGM. Last appt last week -- too soon for A1C. COPD Breathing has been pretty good. Has follow-up with pulmonology later this month. Cardiology. Follows with cardiology. No chest pains. Will get occ palpitations. Gets SOB if she exerts. HYPERLIPIDEMIA: Patient is taking medications: Yes. Patient is watching diet: Yes. Patient denies myalgias: nothing unexplainable. Patient denies gi upset: No Mood Controlled. On lexapro. PAST MEDICAL HISTORY: PAST MEDICAL HISTORY No date: Allergic rhinitis, cause unspecified No date: Arthritis No date: Asthma Comment: Childhood asthma No date: Breast cancer (HCC) Comment: age 34-had lump, cancerous cells. no issues since, left No date: Diverticulosis of colon (without mention of hemorrhage) No date: Ground glass opacity present on imaging of lung 2011: Heme positive stool No date: History of cervical cancer Comment: regular Paps for life 2011: Hyperlipidemia No date: Inflammatory polyarthritis (HCC) Comment: Dr. 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) No date: Sleep apnea Comment: Not on CPAP No date: Type II or unspecified type diabetes mellitus without mention of complication, not stated as uncontrolled No date: Unspecified essential hypertension PAST SURGICAL HISTORY No date: ABDOMINAL SURGERY HX Comment: hx of feeding tube inserted No date: APPENDECTOMY HX 06/26/2009: COLONOSCOPY FLX DX W/COLLJ SPEC WHEN PFRMD 04/10/2019: COLONOSCOPY FLX DX W/COLLJ SPEC WHEN PFRMD Comment: Colonoscopy 02/11/2022: COLONOSCOPY SCREENING Comment: Dr Olivas 2010: EGD 02/11/2022: EGD Comment: Dr Olivas 07/23/2008: ERCP DX COLLECTION SPECIMEN BRUSHING/WASHING Comment: Cholangiopancreatography (ERCP) 04/10/2019: ESOPHAGOGASTRODUODENOSCOPY TRANSORAL DIAGNOSTIC Comment: EGD No date: EYE SURGERY HX 12/30/2023: L'SCOPE CHOLECYSTECTOMY age 34: MASTECTOMY; Left Comment: Mastectomy - simple No date: PAST SURGICAL HISTORY OF Comment: nose cauterized inside No date: PAST SURGICAL HISTORY OF Comment: removal of skin cancer from right arm 10/11/2023: PAST SURGICAL HISTORY OF; Left Comment: ORIF left hip Dr Scott Sutton No date: RMVL [facility] CORNEO-SCLL SCTJ; Bilateral Comment: Cataract removal BILATERAL age 27: TOTAL ABDOMINAL HYSTERECT W/WO RMVL TUBE OVARY Comment: Hysterectomy, MARQUES cervical cancer, has one ovary left ALLERGIES Jesenia Inhibitors, Nsaids (Non-Steroidal Anti-Inflammatory Drug), Tape [Adhesive Tape (Rosins)], and Trulicity [Dulaglutide] MEDICATIONS Current Outpatient Medications Medication Sig HUMULIN R U-500, CONC, KWIKPEN 500 unit/mL (3 mL) inpn 70 units am/65 units sq at lunch/30 sq at dinner (Patient taking differently: 40 units 12pm /10 units sq at 5pm/ 25 units at 10pm) oxybutynin ER (DITROPAN XL) 10 mg 24 hr tablet Take 2 tablets by mouth once daily. CPAP/BIPAP/OTHER Type .CPAPSettings into a note to see current settings/supplies/DME information. metoprolol succinate ER (TOPROL XL) 100 mg Take 1 tablet by mouth once daily. losartan (COZAAR) 100 mg tablet Take 1 tablet by mouth once daily. Blood-Glucose Meter,Continuous (FREESTYLE MITZI 3 READER) misc Use as directed. Blood-Glucose Sensor (FREESTYLE MITZI 3 SENSOR) krystyna Use as directed escitalopram oxalate (LEXAPRO) 10 mg tablet Take 1 tablet by mouth once daily. FOLDING WALKER WITH 5 WHEELS Use with ambulation blood sugar diagnostic (BLOOD GLUCOSE TEST) test strip Test blood sugar(s) 3 times daily. Dx: Type 2 DM - Uncontrolled E11.65 Insulin: Yes Blood-Glucose Meter monitoring kit Glucose Meter of Choice - Kit - Dx: Type 2 DM - Controlled E11.9Insulin: Yes Lancets Test blood sugar(s) 3 times daily. Dx: Type 2 DM - Controlled E11.9 Insulin: Yes nystatin (MYCOSTATIN) cream Apply 1 application to affected area two times a day. fluticasone (FLONASE) 50 mcg/actuation nasal spray USE 1 SPRAY IN EACH NOSTRIL ONCE DAILY AT BEDTIME DIRECTED cetirizine (ZYRTEC) 10 mg tablet Take 1 tablet by mouth once daily. famotidine (PEPCID) 20 mg tablet Take 1 tablet by mouth at bedtime as needed. hydroCHLOROthiazide 12.5 mg capsule Take 1 capsule by mouth once daily. pcpukztkxjv-hqqeywbpx-ommnqefw (TRELEGY ELLIPTA) 200-62.5-25 mcg inhalation powder Inhale 1 Puff asinstructed once daily. esomeprazole (NEXIUM) 40 mg capsule Take 1 capsule by mouth two times a day before meals. 1/2 hr before meal. gabapentin (NEURONTIN) 300 mg capsule Take 1 capsule by mouth daily at bedtime. FOLIC ACID ORAL Take by mouth. verapamil SR (CALAN SR) 120 mg CR tablet Take 1 tablet by mouth daily at bedtime. atorvastatin (LIPITOR) 20 mg tablet Take 1 tablet by mouth daily at bedtime. For cholesterol. methotrexate 2.5 mg tablet Take 20 mg by mouth every Tuesday. melatonin 3 mg tablet Take 1 tablet at 9PM nightly. insulin needles, DISPOSABLE, (PEN NEEDLE) 31 gauge x 16 Use one needle per dose. 4 per day. ondansetron orally disintegrating (ZOFRAN ODT) 4 mg disintegrating tablet DISSOLVE 1 TABLET IN MOUTH THREE TIMES DAILY NEEDED FOR NAUSEA AND VOMITING blood sugar diagnostic (ONETOUCH VERIO TEST STRIPS) test strip Test blood sugar(s) 3-4 times daily.Dx: Other DM Code E11.319 Insulin: Yes Cholecalciferol, Vitamin D3, 50 mcg (2,000 unit) cap Take 1 capsule by mouth once daily. albuterol HFA (PROAIR HFA) 90 mcg/actuation inhaler Inhale 2 Puffs as instructed every 4 hours as needed. blood sugar diagnostic (BLOOD GLUCOSE TEST) test [...] Drops in the left eye twice daily. No current facility-administered medications for this visit. FAMILY HISTORY Problem Relation Age of Onset Alcohol abuse Mother None Father Cave in Stroke Sister Cancer Sister COPD Sister No Known Problems Brother No Known Problems Brother Breast Cancer Maternal Aunt Primary Biliary Cirrhosis Daughter Social History Tobacco Use Smoking status: Former Packs/day: 0.75 Years: 30.00 Additional pack years: 0.00 Total pack years: 22.50 Types: Cigarettes Quit date: 08/15/2000 Years since quittin.6 Passive exposure: Never Smokeless tobacco: Never Vaping Use Vaping Use: Never used Substance Use Topics Alcohol use: Never Comment: rarely Drug use: No EXAM: BP 132/60 Pulse 80 Wt 85.7 kg (189 lb) BMI 35.71 kg/m PHYSICAL EXAM: General Appearance: Well appearing, alert, in no acute distress, well-hydrated, well nourished.. Skin: Skin color, texture, turgor normal, no suspicious rashes or lesions. Head: Normocephalic, no masses, lesions, tenderness or abnormalities. Eyes: Anicteric sclera. Extraocular movements are intact. . Lungs: Lungs clear to auscultation. No wheezing, rhonchi, rales.. Heart: RRR without murmur, gallop, or rubs. No ectopy. Abdomen: Normal abdominal exam, Abdomen soft, non-tender. Bowel sounds normal. No masses, organomegaly. Extremities: No deformities, edema, skin discoloration, clubbing or cyanosis. Good capillary refill. . Neurologic: Gait normal. ASSESSMENT/PLAN: 1. Essential hypertension - ICD9: 401.9, ICD10: I10 (primary diagnosis) - Controlled - Continue current medications - Recommend home blood pressure monitoring, to bring results to next visit - Encouraged sodium restriction, DASH or Mediterranean diet - Recommend regular aerobic exercise 2. 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) - ICD9: 250.82, ICD10: E11.649 Continues to be labile. Continue per endocrinology. - HUMULIN R U-500 (CONC) INSULIN KWIKPEN 500 UNIT/ML (3 ML) SUBCUTANEOUS 3. Choledocholithiasis - ICD9: 574.50, ICD10: K80.50 Follow-up with Dr. Olivas, as scheduled. 4. COPD with exacerbation (HCC) - ICD9: 491.21, ICD10: J44.1 Stable. Follow-up with pulmonary, as scheduled. Discussed treatment plan and patient voices understanding. Patient's questions answered appropriately. Medications and potential side effects were discussed and patient voices understanding. Return to the office as scheduled or as needed for worsening/no improvement. Ysabel Edwards APRN.MATERIAL LOADER documented in this encounter[facility]08-[facility]24 Telephone encounter Note * Telephone Encounter - Marietta Miramontes RN - 03/15/2024 4:48 PM EDT Last annual with 08/02/23. Marietta Miramontes RN [facility] Miscellaneous Notes* Telephone Encounter - Marietta Miramontes RN - 03/15/2024 4:48 PM EDT Last annual with 08/02/23. Marietta Miramontes RN * Telephone Encounter - [place] Car - 03/15/2024 1:17 PM EDT Patient has been identified by name and date of : Yes Patient phones for refill(s): Requested Prescriptions Pending Prescriptions Disp Refills oxybutynin ER (DITROPAN XL) 10 mg 24 hr tablet 180 tablet 0 Sig: Take 2 tablets by mouth once daily. Date of last office visit in primary care: 08/02/2023 Date of next office visit in primary care: Visit date not found Please advise. Thank you. [place] Car. documented in [facility]08-[facility]-2024 Telephone encounter Note * Telephone Encounter - [place] Car - 03/15/2024 1:17 PM EDT Patient has been identified by name and date of : Yes Patient phones for refill(s): Requested Prescriptions Pending Prescriptions Disp Refills oxybutynin ER (DITROPAN XL) 10 mg 24 hr tablet 180 tablet 0 Sig: Take 2 tablets by mouth once daily. Date of last office visit in primary care: 08/02/2023 Date of next office visit in primary care: Visit date not found Please advise. Thank you. [place] Car. [facility] Work Phone: 1(622) 490-566007-15-2024 Miscellaneous Notes* Telephone Encounter - Rica Hogan LPN - 02/27/2024 11:04 AM EDT Chelsie with [facility] calling for last OV. Identified pt with name and date of . FAX: [phone]. DONE Rica Hogan LPN documented in this encounterW[facility]07-15-2024 Telephone encounter Note * Telephone Encounter - Rica Hogan LPN - 02/27/2024 11:04 AM EDT Chelsie with [facility] calling for last OV. Identified pt with name and date of . FAX: [phone]. DONE Rica Hogan LPN [facility] Telephone encounter Note* Telephone Encounter - Dejah Robertson LPN - 02/22/2024 3:48 PM EDT TC to pt who voiced understanding. Appointment moved up and pt will contact DDM for a mask fitting.Pt states she does not have the cord toher machine currently as it is at her daughters house and she needs to go get it. Will start using it after she is able to go get the cord. Dejah Robertson LPN [facility]07-10-[facility] Miscellaneous Notes* Telephone Encounter - Dejah Robertson LPN - 02/22/2024 3:48 PM EDT TC to pt who voiced understanding. Appointment moved up and pt will contact DD for a mask fitting.Pt states she does not have the cord toher machine currently as it is at her daughters house and she needs to go get it. Will start using it after she is able to go get the cord. Dejah Robertson LPN * Telephone Encounter - Dejah Robertson LPN - 02/21/2024 4:50 PM EDT TC to pt with no answer, left VM to return call. Please see below and advise. Dejah Robertson LPN * Telephone Encounter - Deepti Callahan APRN.CHRISTA - 02/21/2024 1:11 PM EDT Please tell pt I reviewed the download from her biPAP. In order to meet insurance compliance she should make sure she uses it at least 4 hrs per night every night for the next 21 days. She has HUGE mask leaks--she needs to meet with the [facility] respiratory therapist MARI to fix that (and to have her machine checked, she said a piece of it keeps falling off)--I'll write an order for those. Her apnea isn't fully controlled (AHI 11.7) but that is probably due to large leaks. We'd better do a 3 month rather than a 6 month follow up. Deepti Callahan APRN.CNP documented in this encounterW[facility]07-09-2024 Telephone encounter Note * Telephone Encounter - Dejah Robertson LPN - 02/21/2024 4:50 PM EDT TC to pt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 CTA showed no evidence of pulmonary embolism. EKG showed sinus tachycardia. CBC showed a white count of 17.1 with 85% neutrophils. Hemoglobinwas 10.5. Chemistry was unremarkable. Troponin was normal. BNP was normal. She had a breathing treatment and she remained significantly tachycardic with heart rate around 120. She required O2 at 3 L to maintain oxygenation at 90 to 92%. She was covered with Levaquin and steroids for COPD exacerbation and admitted. During her hospitalization, her diabetes became uncontrolled with the use of the systemic steroid. Her glucose ranged from 500s to 700s. She had been started on an insulin drip. The insulin drip was weaned off on 11/20/2023. They noted that on 11/21/2023, that her glucose was controlled at 196 and she had 3 more days of prednisone. Since being home, breathing hasn't been too bad. Sometimes will get out of breath with exertion. Sometimes cough and sometimes productive. She continues on treligy inhaler. She follow w/ Dr. Owen. Refers sugars continue to be all over the place. Did touch base with Dr. Chi after last visit and had insulin adjusted. She is going to get a mitzi on later today. No chest pain/palpitations. Appetite varies. No diarrhea/constipation. Urinates okay. Has to apply counter pressure to abdomen. Sleeping okay. PAST MEDICAL HISTORY: PAST MEDICAL HISTORY Diagnosis Date Allergic rhinitis, cause unspecified Arthritis Asthma Childhood asthma Breast cancer (HCC) age 34-had lump, cancerous cells. no issues since, left Diverticulosis of colon (without mention of hemorrhage) Ground glass opacity present on imaging of lung Heme positive stool 2010 History of cervical cancer regular Paps for life Hyperlipidemia 2011 Inflammatory polyarthritis (HCC) Dr. 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) Sleep apnea Not on CPAP Type II or unspecified type diabetes mellitus without mention of complication, not stated as uncontrolled Unspecified essential hypertension PAST SURGICAL HISTORY Procedure Laterality Date ABDOMINAL SURGERY HX hx of feeding tube inserted APPENDECTOMY HX COLONOSCOPY FLX DX W/COLLJ SPEC WHEN PFRMD 06/26/2009 COLONOSCOPY FLX DX W/COLLJ SPEC WHEN PFRMD 04/10/2019 Colonoscopy COLONOSCOPY SCREENING 02/11/2022 Dr Olivas EGD 2010 EGD 02/11/2022 Dr Olivas ERCP DX COLLECTION SPECIMEN BRUSHING/WASHING 07/23/2008 Cholangiopancreatography (ERCP) ESOPHAGOGASTRODUODENOSCOPY TRANSORAL DIAGNOSTIC 04/10/2019 EGD EYE SURGERY HX MASTECTOMY Left age 34 Mastectomy - simple PAST SURGICAL HISTORY OF nose cauterized inside PAST SURGICAL HISTORY OF removal of skin cancer from right arm PAST SURGICAL HISTORY OF Left 10/11/[address] Scott Sutton [facility] CORNEO-SCLL SCTJ Bilateral Cataract removal BILATERAL TOTAL ABDOMINAL HYSTERECT W/WO RMVL TUBE OVARY age 27 Hysterectomy, MARQUES cervical cancer, has one ovary left ALLERGIES Jesenia Inhibitors, Nsaids (Non-Steroidal Anti-Inflammatory Drug), Tape [Adhesive Tape (Rosins)], and Trulicity [Dulaglutide] MEDICATIONS Current Outpatient Medications Medication Sig Blood-Glucose Meter,Continuous (FREESTYLE MITZI 3 READER) misc Use as directed. Blood-Glucose Sensor (FREESTYLE MITZI 3 SENSOR) krystyna Use as directed escitalopram oxalate (LEXAPRO) 10 mg tablet Take 1 tablet by mouth once daily. FOLDING WALKER WITH 5 WHEELS Use with ambulation blood sugar diagnostic (BLOOD GLUCOSE TEST) test strip Test blood sugar(s) 3 times daily. Dx: Type 2 DM - Uncontrolled E11.65 Insulin: Yes Blood-Glucose Meter monitoring kit Glucose Meter of Choice - Kit - Dx: Type 2 DM - Controlled E11.9Insulin: Yes Lancets Test blood sugar(s) 3 times daily. Dx: Type 2 DM - Controlled E11.9 Insulin: Yes nystatin (MYCOSTATIN) cream Apply 1 application to affected area two times a day. doxepin (ZONALON) 5 % cream Apply to affected area three times a day as needed for itching/rash (donot exceed dosing). fluticasone (FLONASE) 50 mcg/actuation nasal spray USE 1 SPRAY IN EACH NOSTRIL ONCE DAILY AT BEDTIME DIRECTED cetirizine (ZYRTEC) 10 mg tablet Take 1 tablet by mouth once daily. famotidine (PEPCID) 20 mg tablet Take 1 tablet by mouth at bedtime as needed. hydroCHLOROthiazide 12.5 mg capsule Take 1 capsule by mouth once daily. tjizlemnlyw-zoonzyrjt-xaqslzuj (TRELEGY ELLIPTA) 200-62.5-25 mcg inhalation powder Inhale 1 Puff asinstructed once daily. esomeprazole (NEXIUM) 40 mg capsule Take 1 capsule by mouth two times a day before meals. 1/2 hr before meal. gabapentin (NEURONTIN) 300 mg capsule Take 1 capsule by mouth daily at bedtime. oxybutynin ER (DITROPAN XL) 10 mg 24 hr tablet Take 2 tablets by mouth once daily. FOLIC ACID ORAL Take by mouth. verapamil SR (CALAN SR) 120 mg CR tablet Take 1 tablet by mouth daily at bedtime. atorvastatin (LIPITOR) 20 mg tablet Take 1 tablet by mouth daily at bedtime. For cholesterol. methotrexate 2.5 mg tablet Take 20 mg by mouth every Tuesday. HUMULIN R U-500, CONC, KWIKPEN 500 unit/mL (3 mL) inpn Inject subcutaneously three times daily. 70/70/40 melatonin 3 mg tablet Take 1 tablet at 9PM nightly. insulin needles, DISPOSABLE, (PEN NEEDLE) 31 gauge x 5/16 Use one needle per dose. 4 per day. ondansetron orally disintegrating (ZOFRAN ODT) 4 mg disintegrating tablet DISSOLVE 1 TABLET IN MOUTH THREE TIMES DAILY NEEDED FOR NAUSEA AND VOMITING blood sugar diagnostic (ONETOUCH VERIO TEST STRIPS) test strip Test blood sugar(s) 3-4 times daily.Dx: Other DM Code E11.319 Insulin: Yes Cholecalciferol, Vitamin D3, 50 mcg (2,000 unit) cap Take 1 capsule by mouth once daily. losartan (COZAAR) 100 mg tablet Take 1 tablet by mouth once daily. metoprolol succinate ER (TOPROL XL) 100 mg Take 1 tablet by mouth once daily. albuterol HFA (PROAIR HFA) 90 mcg/actuation inhaler Inhale 2 Puffs as instructed every 4 hours as needed. blood sugar diagnostic (BLOOD GLUCOSE TEST) test [...] Drops in the left eye twice daily. No current facility-administered medications for this visit. FAMILY HISTORY Problem Relation Age of Onset Alcohol abuse Mother None Father Cave in Stroke Sister Cancer Sister COPD Sister No Known Problems Brother No Known Problems Brother Breast Cancer Maternal Aunt Primary Biliary Cirrhosis Daughter Social History Tobacco Use Smoking status: Former Packs/day: 0.75 Years: 30.00 Additional pack years: 0.00 Total pack years: 22.50 Types: Cigarettes Quit date: 08/15/2000 Years since quittin.3 Passive exposure: Never Smokeless tobacco: Never Vaping Use Vaping Use: Never used Substance Use Topics Alcohol use: Never Comment: rarely Drug use: No EXAM: BP 132/70 Pulse 110 Resp 16 SpO2 94% PHYSICAL EXAM: General Appearance: Well appearing, alert, in no acute distress, well-hydrated, well nourished.. Skin: Skin color, texture, turgor normal, no suspicious rashes or lesions. Head: Normocephalic, no masses, lesions, tenderness or abnormalities. Eyes: Anicteric sclera. Extraocular movements are intact. . Lungs: Lungs clear to auscultation. No wheezing, rhonchi, rales.. Heart: RRR without murmur, gallop, or rubs. No ectopy. Extremities: No deformities, skin discoloration, clubbing or cyanosis. Good capillary refill. +1 ankle edema. Neurologic: Gait normal. ASSESSMENT/PLAN: 1. COPD with exacerbation (HCC) - ICD9: 491.21, ICD10: J44.1 (primary diagnosis) Improved. Continue per pulmonology. 2. Closed fracture of left hip with routine healing, subsequent encounter - ICD9: V54.13, ICD10: S72.002D Stable. 3. 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) - ICD9: 250.82, ICD10: E11.649 - Uncontrolled Planning on starting a mitzi. Continue per endocrinology. - HUMULIN R U-500 (CONC) INSULIN KWIKPEN 500 UNIT/ML (3 ML) SUBCUTANEOUS Discussed treatment plan and patient voices understanding. Patient's questions answered appropriately. Medications and potential side effects were discussed and patient voices understanding. Return to the office as scheduled or as needed for worsening/no improvement. Ysabel Edwards APRN.MATERIAL LOADER documented in this encounterW[facility]04-10-2024 Telephone encounter Note * Telephone Encounter - Elena Brewster RN - 11/23/2023 3:57 PM EDT SAVANNAH Borjas @ [facility] calling with update. Occupational Therapy will see patient x 1 the week of December 04 after patient's ORTHO f/u appointment. No call back needed. Elena Brewster RN [facility]04-10-2024 Miscellaneous Notes* Telephone Encounter - Gertrudis Newman RN - 11/23/2023 11:49 AM EDT Velma from [facility] calls and states that patient is requesting that provider send in a prescription to [facility] for Freestyle Mitzi. Patient has just recently changed insurances and would like to see if new insurance will cover this so that she does not have to keep poking herself. Please review and advise, Gertrudis Newman RN documented in this encounterLonnie Ville [id number] Miscellaneous Notes* Telephone Encounter - Maria Eugenia Ferrari RN - 11/23/2023 10:40 AM EDT Meron PT calling from [facility] to report plan of care for patient and PT will visit patient 2 times a week for three weeks. PT will work with patient on lower extremity strengthening, transfers, gait training, balance, endurance, and mobility. No call back needed unless provider has questions. Maria Eugenia Ferrari RN documented in this encounterWo[facility]04-09-2024 Miscellaneous Notes* Telephone Encounter - Kerry Spivey MA - 11/22/2023 3:52 PM EDT Spoke with daughter, advised that medication was sent to pharmacy. Pt does not have mychart, cannot do virtuals. She has appointment on 11/28/23. They feel comfortablewaiting until then. I advised daughter that if any suicidal ideations occur to take her to ER, or if moods gets worse to call back for sooner appointment. They are agreeable. Cori from [facility] notified Kerry Spivey MA * Telephone Encounter - Ilir Hernández MD - 11/22/2023 3:34 PM EDT Started on lexapro. Avoid zofran while using. Can follow up with me virtually on am if willing. 40 minutes. * Telephone Encounter - Gertrudis Newman RN - 11/22/2023 1:14 PM EDT Cori from [facility] calls and states that patient is back at home after being discharged from hospital. Patient is verbalizing that she is feeling blah and sleeping all the time. Patient reports feeling like world would be better off without her. Patient does not have any active thoughts of suicide. Patient does not have any Lexapro medication at home. Cori asking if provider wants to prescribe medication? Please review and advise, Gertrudis Newman RN documented in this encounterWooster [facility]04-09-2024 Miscellaneous Notes* Telephone Encounter - Ysabel Edwards APRN.CNP - 11/22/2023 3:36 PM EDT Hip fracture w/ ORIF? New script sent. Ysabel Edwards APRN.CHRISTA * Telephone Encounter - Sunita Rose LPN - 11/22/2023 2:47 PM EDT Sammie with [facility] calls in regard to order for folding walker with 5 wheels. Sammie reports that dx G87.1 and Z98.890 will not work. Sammie reports dx has to be more specific such as why pt needs walker to walk, something wrong with legs, ect. Fax new order to DM. Sunita Rose LPN [facility] Miscellaneous Notes* Telephone Encounter - Lotus Philippe, RN - 11/22/2023 3:08 PM EDT Patient rescheduled to 12/05 with [place] [facility]. Lotus Philippe, RN * Telephone Encounter - Meron Mckenna - 11/22/2023 1:12 PM EDT Patient was discharged from [facility] on 11/21/23 (refer to tele enc from 11/17/23). Unable to schedule patient with Dr. Owen until 12/23/23 for hospital follow up. Patient unable to arrive for next available with [place] [facility] PA-C on 11/23/23. Please notify patient's daughter if she is able to be seen sooner. Patient is scheduled for follow up with PCP on 11/28/23. documented in this [facility]04-[facility]24 Discharge summary Author Jj Whitfield [facility] November 21, 2023 12:23pm Note Date/Time November 21, 2023 12:2 3pm [facility] Medical Records Department [facility] [place] [address] Discharge Summary 11/21/23 1219 MR#: [id number] Acct: [id number] Name: MANISHA KEITH Rep #:[id number] : 1950 73 From: Jj Greer PCP: Dr. Ilir Hernández MD Status:ADM I N Location: [place] [address] Providers Date of Admission: 11/17/23 Date of Discharge: 11/21/23 Primary Care Physician: Dr. Ilir Hernández MD Reason For Visit: COPD EXA Diagnosis Discharge Diagnosis (1) COPD with acute exacerbation: Status: Chronic Code(s): J44.1 - Chronic obstructive pulmonary disease with (acute) exacerbation (2) Hypoxia: Status: Acute Code(s): R09.02 - Hypoxemia Plan Patient is a 72-year-old lady with history of COPD presented with progressive shortness of breath with associated cough and upper respiratory tract symptoms. An assessment of COPD with acute exacerbation made admitted to regular nursing floor for further management 1. COPD with acute exacerbation ? Patient has been admitted to regular nursing floor managed with systemic steroid bronchodilator treatment as well as supplemental oxygen titrated to keepsaturation greater than 90 percent. 11/20: Patient gradually weaned off oxygen.Currently 95% on room air. Home qualification oxygen ordered. 2. Diabetes mellitus type 2 ? Uncontrolled due to concomitant use of systemic steroid. Glucose this a.m. 585. Adjusted patient insulin regimen. Also placed on Accu-Cheks before meals and at bedtime with sliding scale coverage ?Patient was transferred to a monitored bed started on insulin drip given persistently high glucose levels. Patient glucose levels were in the 700s. ? 11/20/2023 insulin drip has been weaned off 11/20: Glucose is controlled most recent 196. 3 more days of prednisone and then discontinue. 3. Fall with recent comminuted left hip fracture ?Patient underwent ORIF on 10/11/2023 was discharged to a half-way facility will continue PT OT as tolerated 4. Class II obesity with BMI of 37.6 ? Complicating care weight loss advised 5. Dyslipidemia -Patient is on statin therapy, continued at home dose 6. Essential hypertension ? Patient blood pressure control on admission was not optimal at home medications were resumed we will continue monitoring with hydralazine return as needed for systolic blood pressure greater than 160 7. Dyslipidemia -Patient is on statin therapy, continued at home dose 8. Depression ? Patient is on Lexapro 9. Sinus tachycardia ? Thought to be reactive. 10. Hyponatremia ? Secondary to patient being on diuretic therapy specifically HCTZ will monitor with daily BMPs 11. Rheumatoid arthritis ? Patient is on methotrexate 12. Gastroparesis ? Patient is managed by GI as outpatient currently not on any prokinetic 13. Chronic congestive heart failure with preserved ejection fraction ? Patient was previously on metolazone currently off. Patient remains compensated 14 . DVT prophylaxis ? Patient is on Xarelto Discharge medication reconciliation done. Discharge follow-up instructions completed. Discharge process discussed with the patient and all questions wereanswered to patient's satisfaction. Follow with PCP in 1 to 2 weeks Total time spent, exact 35 minutes on discharge meds reconciliation, examination, coordination of care with nurses and ancillary staff, review of imaging and blood test and discussion with the patient on follow-up instructions. Medications at Discharge Home Medications fluticasone propionate 50 mcg/actuation nasal spray,suspension 1 spray intranasal DAILY PRN NASAL CONGESTION 01/30/14 methotrexate sodium 2.5 mg tablet 20 mg PO TEJADA BREAST CANCER 04/16/17 albuterol sulfate 90 mcg/actuation aerosol inhaler (ProAir HFA) 2 puff inhalation Q4H PRN SHORTNESS OF BREATH 06/05/21 escitalopram oxalate 10 mg tablet (Lexapro) 10 mg PO DAILY PRN DEPRESSION 06/05/21 fluticasone fur. 100 mcg-umeclid 62.5 mcg-vilant 25 mcg inhalat.powder (Trelegy Ellipta) 1 inh inhalation DAILY SHORTNESS OF BREATH 06/05/21 folic acid 1 mg tablet 2 mg PO DAILY SUPPLEMENT 06/05/21 hydrochlorothiazide 12.5 mg capsule 12.5 mg PO DAILY BLOOD PRESSURE 06/05/21 losartan 100 mg tablet 100 mg PO DAILY BLOOD PRESSURE 06/05/21 aspirin 81 mg tablet,delayed release (Adult Low Dose Aspirin) 81 mg PO DAILY HEART HEALTH 02/05/22 gabapentin 300 mg capsule 300 mg PO QHS NEUROPATHY 02/05/22 oxybutynin chloride 10 mg tablet,extended release 24 hr 20 mg PO DAILY OVERACTIVE BLADDER 02/05/22 metoprolol succinate 100 mg tablet,extended release 24 hr 100 mg PO DAILY BLOOD PRESSURE 02/24/22 esomeprazole magnesium 40 mg capsule,delayed release (Nexium) 40 mg PO DAILY ACID REFLUX 11/26/22 loratadine 10 mg tablet 10 mg PO DAILY PRN ALLERGIES 11/26/22 metformin 500 mg tablet,extended release 24 hr 500 mg PO BREAKFAST DIABETES 11/26/22 pen needle, diabetic 32 gauge x 5/32 (BD Ultra-Fine Tish Pen Needle) #100 ea 11/26/22 atorvastatin 20 mg tablet 20 mg PO DAILY CHOLESTEROL 06/21/23 metaxalone 800 mg tablet 800 mg PO TID PRN MUSCLE CRAMPS 06/21/23 verapamil 120 mg tablet,extended release 120 mg PO QHS BLOOD PRESSURE 06/21/23 rivaroxaban 10 mg tablet (Xarelto) 10 mg PO DAILY@0600 #30 tabs 10/13/23 insulin regular hum U-500 conc 500 unit/mL(3 mL) subcut pen (Humulin R U-500 (Conc) Insulin Kwikpen) See Rx Instructions subcut TIDCM #10.8 mL 11/10/23 blood sugar diagnostic (DesallTouch Verio test strips) #150 ea 11/15/23 nitrofurantoin monohydrate/macrocrystals 100 mg capsule 1 cap PO BID 11/15/23 guaifenesin 1,200 mg tablet, extended release 12 hr (Mucinex) 1,200 mg PO BID 7 days #14 tabs 11/21/23 prednisone 20 mg tablet 40 mg (2 x 20 mg) PO DAILY 3 days #6 tabs 11/21/23 Physical Exam Narrative Seen and examined. Physical exam General: Alert, Oriented x3, Cooperative HEENT: Atraumatic, PERRLA, EOMI, Normocephalic Oral: Oral mucosa dry. No Gingival or Mucosal Lesions/ Ulcerations Neck: Supple, No JVD, Negative Carotid Bruits Chest wall/Lungs: Air entry diminished in bilateral lung bases. Expiratory phase prolonged. Tachypnea hypoxia and wheezing has resolved. Cardiovascular: Sinus rhythm normal S1, Normal S2, No M/G/R Abdomen: Bowel Sounds Present, Soft, Non Tender, Non-Distended : No dysuria. No renal angle tenderness. No suprapubic tenderness. Extremities: No edema, Capillary Refill Less than 3 Seconds Skin: No rashes, No breakdown Musculoskeletal: No Tenderness to Palpation of Joints or Extremities Neurological: Cranial nerves II-XII grossly intact, DTR 2+/4. No acute focal neurological deficit. Psych/Mental Status: Flat affect Weight / BMI Weight Weight: 199 lb 0.004 oz Body Mass Index (BMI) 37.5 ABG / Lab / Microbiology Data 11/21/23 03:50 11/21/23 03:50 Laboratory: Laboratory Results - last 24 hr 11/20/23 16:25: POC Glucose 175 H 11/20/23 21:31: POC Glucose 282 H 11/21/23 03:50: WBC 9.6, RBC 3.02 L, Hgb 9.2 L, Hct 28.8 L, MCV 95.4, MCH 30.5, MCHC 31.9 L, RDW Std Deviation 47.0 H, RDW Coeff of Tom 13.7, Plt Count 304, MPV8.8, Immature Gran % (Auto) 0.900, Neut % (Auto) 67.3, Lymph % (Auto) 21.7, [place]% (Auto) 9.0, Eos % (Auto) 0.9, Baso % (Auto) 0.2, Absolute Neuts (auto) 6.5, Absolute Lymphs (auto) 2.09, Nucleated RBC % 0, Sodium 139, Potassium 3.7, Chloride 108 H, Carbon Dioxide 27.0, Anion Gap 4 L, BUN 27 H, Creatinine 0.93, Estim Creat Clear Calc 56.75, Est GFR (MDRD) Af Amer 76, Est GFR (MDRD) Non-Af 63, BUN/Creatinine Ratio 28.9 H, Glucose 140 H, Calcium 8.2 L 11/21/23 08:05: POC Glucose 65 L 11/21/23 11:18: POC Glucose 196 H Microbiology: Microbiology 11/17/23 21:15 Sputum, Expectorated/Coughed Gram Stain - Final 11/17/23 21:15 Sputum, Expectorated/Coughed Respiratory Culture - Final 11/17/23 11:53 Blood Culture (Wb) - Right Forearm Blood Culture - Preliminary No growth in 48 hours. 11/17/23 11:20 Blood Culture (Wb) - Right Forearm Blood Culture - Preliminary No growth in 48 hours. 11/18/23 00:25 Urine, Clean Catch Legionella Antigen - Final 11/18/23 00:25 Urine, Clean Catch Streptococcus pneumoniae Antigen (M - Final 11/17/23 15:31 Mucosa - Nasopharyngeal Respiratory Panel (PCR) - Final 11/17/23 11:25 Mucosa - Nasopharyngeal SARS-CoV-2, Influenza & RSV (PCR) - Final D/C Instructions Discharge Diet: 1800 Calorie Control Diet Weight Bearing Status: Weight bearing as tolerated Call your doctor if you observe: Fever of 101 or Higher, Coldness, Increased Pain, Numbness or Tingling, Change in Color, Inability to urinate, Inability to have a bowel movement, Using more than 1 pad per hour, Shortness of breath, Dizziness, Fainting spells, Swelling in the ankles, Chest pain, Prolonged hiccupping, Increased palpitations (irregular heartbeat) and Calf discomfort When: IN 2 WEEKS Meaningful Use Info Meaningful Use Diagnoses (Choose all that apply): None applicable Discharge Plan Admission Admit Date/Time: 11/17/23 14:53 Primary Reason for Your Visit: COPD exacerbation Attending Provider: Jj Whitfield Primary Care Provider: Ilir Hernández Consulting Providers: Jj Whitfield; Anthony Perez Instructions Additional Instructions / Restrictions: Follow-up marine engine mechanic, Dr. Sophia Owen in 2 weeks Discharge Orders/Prescriptions Prescriptions: New prednisone 20 mg tablet 40 mg PO DAILY 3 Days Qty: 6 0RF guaifenesin [Mucinex] 1,200 mg tablet extended release 12hr 1,200 mg PO BID 7 Days Qty: 14 0RF Continued hydrochlorothiazide 12.5 mg capsule 12.5 mg PO DAILY gabapentin 300 mg capsule 300 mg PO QHS metoprolol succinate 100 mg tablet extended release 24 hr 100 mg PO DAILY oxybutynin chloride 10 mg tablet extended release 24hr 20 mg PO DAILY aspirin [Adult Low Dose Aspirin] 81 mg tablet,delayed release (DR/EC) 81 mg PO DAILY loratadine 10 mg tablet 10 mg PO DAILY PRN (Reason: ALLERGIES ) (DME) pen needle, diabetic [BD Ultra-Fine Tish Pen Needle] 32 gauge x needle See Rx Instructions .ROUTE .MEDSUPPLY Qty: 100 5RF Rx Instructions: tid metformin 500 mg tablet extended release 24 hr 500 mg PO BREAKFAST Patient Comments: COUPLE OF WEEKS SINCE LAST TAKEN. PT STATES THEY RAN OUT AND THAT THEY DO NOTLIKE TAKING IT BECAUSE OF ALL THE BAD THINGS THEY HAVE HEARD ABOUT IT nitrofurantoin monohyd/m-cryst 100 mg capsule 1 cap PO BID (DME) OneTouch Verio test strips Strip See Rx Instructions .Route Qty: 150 12RF Rx Instructions: 4 times per day fluticasone propionate 1 SPRAY spray,suspension 1 spray intranasal DAILY PRN (Reason: NASAL CONGESTION ) methotrexate sodium 2.5 MG tablet 20 mg PO TEJADA Hold Instructions: Resume on 06/29/23. Hold until finished with augmentin folic acid 1 mg tablet 2 mg PO DAILY albuterol sulfate [ProAir HFA] 90 mcg/actuation Hfa Aerosol Inhaler 2 puff INHALATION Q4H PRN (Reason: SHORTNESS OF BREATH ) losartan 100 mg tablet 100 mg PO DAILY escitalopram oxalate [Lexapro] 10 mg tablet 10 mg PO DAILY PRN (Reason: DEPRESSION ) Trelegy Ellipta 100-62.5-25 mcg blister with device 1 inh INHALATION DAILY Patient Comments: PT STATES THEY WERE TOLD BY A DOCTOR TO STOP USING THIS TEMPORARILY BECAUSE THEY BELIEVE THE PT MIGHT BE ALLERGIC TO THIS INHALER. esomeprazole magnesium [Nexium] 40 mg capsule,delayed release(DR/EC) 40 mg PO DAILY atorvastatin 20 mg tablet 20 mg PO DAILY verapamil 120 mg tablet extended release 120 mg PO QHS metaxalone 800 mg tablet 800 mg PO TID PRN (Reason: MUSCLE CRAMPS) Xarelto 10 mg Tablet 10 mg PO DAILY@0600 Qty: 30 0RF Humulin R U-500 (Conc) Kwikpen 500 unit/mL (3 mL) insulin pen See Rx Instructions subcut TIDCM Qty: 10.8 5RF Rx Instructions: breakfast- 70 u, lunch 70 u, dinner 40 u subcutaneously 3 times daily with meals Discontinued fexofenadine [Nury Allergy] 180 mg tablet 180 mg PO BID Referrals / Follow Up: Ilir Hernández MD [Primary Care Provider] - Within 2 Weeks Disposition Disposition (needs filled in before D/C Order can be placed): Home, Self Care Charges/Coding Visit Charges Inpatient E&M: 77897 Disch Hosp >30min 11/21/23 1223 <Electronically signed by Jj Whitfield MD> Cosigner Signature (if applicable): CC: Dr. Jj Whitfield MD; Dr. Ilir Hernández MD~ Signed [facility] Work Phone: [phone]) 827-876204-08-2024 Discharge summary Author Jj Whitfield [facility] November 21, 2023 12:19pm Note Date/Time November 21, 2023 12:1 2pm [facility] Medical Records Department [address] [place] [address] Instructions for Home/Discharge Instructions 11/21/23 1211 MR#: [id number] Acct: [id number] Name: MANISHA KEITH Rep #:[id number] : 1950 73 From: Jj Greer PCP: Dr. Ilir Hernández MD Status:ADM I N Discharge Instructions Diet Discharge Diet: 1800 Calorie Control Diet Activity Discharge Activity: Return to Normal Activity Weight Bearing Status: Weight bearing as tolerated Dressing / Incision Call your doctor if you observe: Fever of 101 or Higher, Coldness, Increased Pain, Numbness or Tingling, Change in Color, Inability to urinate, Inability to have a bowel movement, Using more than 1 pad per hour, Shortness of breath, Dizziness, Fainting spells, Swelling in the ankles, Chest pain, Prolonged hiccupping, Increased palpitations (irregular heartbeat) and Calf discomfort Follow Up Care When: IN 2 WEEKS Test Results: Test results from this visit will be discussed in further detail at your follow- up appointment, if applicable. 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 Sophia Owen in 2 weeks Discharge Orders/Prescriptions Prescriptions: New prednisone 20 mg tablet 40 mg PO DAILY 3 Days Qty: 6 0RF guaifenesin [Mucinex] 1,200 mg tablet extended release 12hr 1,200 mg PO BID 7 Days Qty: 14 0RF Continued hydrochlorothiazide 12.5 mg capsule 12.5 mg PO DAILY gabapentin 300 mg capsule 300 mg PO QHS metoprolol succinate 100 mg tablet extended release 24 hr 100 mg PO DAILY oxybutynin chloride 10 mg tablet extended release 24hr 20 mg PO DAILY aspirin [Adult Low Dose Aspirin] 81 mg tablet,delayed release (DR/EC) 81 mg PO DAILY loratadine 10 mg tablet 10 mg PO DAILY PRN (Reason: ALLERGIES ) (DME) pen needle, diabetic [BD Ultra-Fine Tish Pen Needle] 32 gauge x /32 needle See Rx Instructions .ROUTE .MEDSUPPLY Qty: 100 5RF Rx Instructions: tid metformin 500 mg tablet extended release 24 hr 500 mg PO BREAKFAST Patient Comments: COUPLE OF WEEKS SINCE LAST TAKEN. PT STATES THEY RAN OUT AND THAT THEY DO NOTLIKE TAKING IT BECAUSE OF ALL THE BAD THINGS THEY HAVE HEARD ABOUT IT nitrofurantoin monohyd/m-cryst 100 mg capsule 1 cap PO BID (DME) OneTouch Verio test strips Strip See Rx Instructions .Route Qty: 150 12RF Rx Instructions: 4 times per day fluticasone propionate 1 SPRAY spray,suspension 1 spray intranasal DAILY PRN (Reason: NASAL CONGESTION ) methotrexate sodium 2.5 MG tablet 20 mg PO TEJADA Hold Instructions: Resume on 06/29/23. Hold until finished with augmentin folic acid 1 mg tablet 2 mg PO DAILY albuterol sulfate [ProAir HFA] 90 mcg/actuation Hfa Aerosol Inhaler 2 puff INHALATION Q4H PRN (Reason: SHORTNESS OF BREATH ) losartan 100 mg tablet 100 mg PO DAILY escitalopram oxalate [Lexapro] 10 mg tablet 10 mg PO DAILY PRN (Reason: DEPRESSION ) Trelegy Ellipta 100-62.5-25 mcg blister with device 1 inh INHALATION DAILY Patient Comments: PT STATES THEY WERE TOLD BY A DOCTOR TO STOP USING THIS TEMPORARILY BECAUSE THEY BELIEVE THE PT MIGHT BE ALLERGIC TO THIS INHALER. esomeprazole magnesium [Nexium] 40 mg capsule,delayed release(DR/EC) 40 mg PO DAILY atorvastatin 20 mg tablet 20 mg PO DAILY verapamil 120 mg tablet extended release 120 mg PO QHS metaxalone 800 mg tablet 800 mg PO TID PRN (Reason: MUSCLE CRAMPS) Xarelto 10 mg Tablet 10 mg PO DAILY@0600 Qty: 30 0RF Humulin R U-500 (Conc) Kwikpen 500 unit/mL (3 mL) insulin pen See Rx Instructions subcut TIDCM Qty: 10.8 5RF Rx Instructions: breakfast- 70 u, lunch 70 u, dinner 40 u subcutaneously 3 times daily with meals Discontinued fexofenadine [Nury Allergy] 180 mg tablet 180 mg PO BID Referrals / Follow Up: Ilir Hernández MD [Primary Care Provider] - Within 2 Weeks Disposition Disposition (needs filled in before D/C Order can be placed): Home, Self Care 11/21/23 1219<Electronically signed by Jj Whitfield MD>Jj Whitfield MD CC: Dr. Anthony Perez MD; Dr. Jj Whitfield MD; Dr. Ilir Hernández MD ~ Signed [facility] Work Phone: [phone] 132-415304-07-2024 Progress note Author Anthony Perez [facility] November 20, 2023 8:56am Note Date/Time November 20, 2023 8:22 am [facility] Medical Records Department [address] [place] [address] Progress Note - Hospitalist 11/20/23 0821 MR#: [id number] Acct: [id number] Name: MANISHA KE[place] Rep #:[id number] 1 : 1950 73 From: Anthony Perez MD PCP: Dr. Ilir Hernández MD Status:ADM I N Location: [place] [address] Reason for Visit Reason for Visit: Diagnoses Chronic obstructive pulmonary disease with (acute) exacerbation (11/17/23) Hypoxemia (11/17/23) Objective Data Objective Data Vital Signs: Vital Signs Temp Pulse Resp BP Pulse Ox O2 Del Method O2 Flow Rate 98.8 F 82 18 128/62 H 95 Nasal Cannula 2 11/20/23 08:13 11/20/23 08:13 11/20/23 08:13 11/20/23 08:13 11/20/23 08:13 11/20/23 08:15 11/20/23 08:15 Oxygen Flow Rate (L/min) 2 Oxygen Delivery Method Nasal Cannula Weight: 90.265 kg Body Mass Index (BMI) 37.5 Intake & Output: Intake and Output for Last 24 Hours 11/18/23 11/19/23 11/20/23 23:59 23:59 23:59 Intake Total 583.39 / 783.39 271.99 / 271.99 Output Total 900 / 1250 850 / 850 Balance -316.61 / -466.61 -578.01 / -578.01 Lab / Micro Data 11/20/23 08:15 11/20/23 05:50 Labs: Laboratory Results - last 24 hr 11/19/23 07:34: POC Glucose 204 H 11/19/23 07:35: Sodium 137, Potassium 4.0, Chloride 105, Carbon Dioxide 26.0, Anion Gap 6, BUN 41 H, Creatinine 1.29 H, Estim Creat Clear Calc 40.91, Est GFR (MDRD) Af Amer 52 L, Est GFR (MDRD) Non-Af 43 L, BUN/Creatinine Ratio 31.8 H, Glucose 201 H, Calcium 8.6, Phosphorus 4.4, Magnesium 2.6 11/19/23 11:13: POC Glucose 451 H* 11/19/23 12:24: POC Glucose 433 H 11/19/23 14:54: POC Glucose 371 H 11/19/23 17:10: POC Glucose 416 H 11/19/23 21:15: POC Glucose 314 H 11/20/23 05:50: WBC Cancelled, Corrected WBC Cancelled, RBC Cancelled, Hgb Cancelled, Hct Cancelled, MCV Cancelled, MCH Cancelled, MCHC Cancelled, RDW Std Deviation Cancelled, RDW Coeff of Tom Cancelled, Plt Count Cancelled, MPV Cancelled, Immature Gran % (Auto) Cancelled, Neut % (Auto) Cancelled, Lymph % (Auto) Cancelled, [place] % (Auto) Cancelled, Eos % (Auto) Cancelled, Baso % (Auto)Cancelled, Absolute Neuts (auto) Cancelled, Absolute Lymphs (auto) Cancelled, Total Counted Cancelled, Neutrophils % (Manual) Cancelled, Band Neutrophils % Cancelled, Lymphocytes % (Manual) Cancelled, Monocytes % (Manual) Cancelled, Eosinophils % (Manual) Cancelled, Basophils % (Manual) Cancelled, Metamyelocytes% Cancelled, Myelocytes % Cancelled, Promyelocytes % Cancelled, Blast Cells % Cancelled, Plasma Cell % (Manual) Cancelled, Other Cells % Cancelled, Nucleated RBC % Cancelled, Nucleated RBCs/100 WBC Cancelled, Differential Comment Cancelled, Diff Path Review Cancelled, Hypersegmented Neuts Cancelled, Atypical Lymphocytes Cancelled, Reactive Lymphocytes Cancelled, Smudge Cells Cancelled, Toxic Granulation Cancelled, Toxic Vacuolation Cancelled, Dohle Bodies Cancelled, Stacia Rods Cancelled, Platelet Estimate Cancelled, Plt Morphology Comment Cancelled, RBC Morphology Cancelled 11/20/23 05:50: RBC Morphology Cancelled, Polychromasia Cancelled, HypochromasiaCancelled, Basophilic Stippling Cancelled, Anisocytosis Cancelled, Microcytosis Cancelled, Macrocytosis Cancelled, Spherocytes Cancelled, Sickle Cells Cancelled, Target Cells Cancelled, Tear Drop Cells Cancelled, Ovalocytes Cancelled, Stomatocytes Cancelled, [place] Bodies Cancelled, Wilmore Cells Cancelled, Bite Cells Cancelled, Crenated Cell Cancelled, Acanthocytes (Spur) Cancelled, Rouleaux Cancelled, Schistocytes Cancelled, Sodium 136, Potassium 4.4, Chloride 108 H, Carbon Dioxide 23.0, Anion Gap 5, BUN 43 H, Creatinine 1.12H, Estim Creat Clear Calc 47.12, Est GFR (MDRD) Af Amer 62, Est GFR (MDRD) Non-Af 51 L, BUN/Creatinine Ratio 38.4 H, Glucose 132 H, Calcium 8.1 L Micro: Microbiology 11/17/23 21:15 Sputum, Expectorated/Coughed Gram Stain - Final 11/17/23 21:15 Sputum, Expectorated/Coughed Respiratory Culture - Preliminary Appears to be normal respiratory john. Further studies to follow. 11/17/23 11:53 Blood Culture (Wb) - Right Forearm Blood Culture - Preliminary No growth in 48 hours. 11/17/23 11:20 Blood Culture (Wb) - Right Forearm Blood Culture - Preliminary No growth in 48 hours. 11/18/23 00:25 Urine, Clean Catch Legionella Antigen - Final 11/18/23 00:25 Urine, Clean Catch Streptococcus pneumoniae Antigen (M - Final 11/17/23 15:31 Mucosa - Nasopharyngeal Respiratory Panel (PCR) - Final 11/17/23 11:25 Mucosa - Nasopharyngeal SARS-CoV-2, Influenza & RSV (PCR) - Final Physical Exam Narrative GENERAL: cooperative HEENT: Atraumatic; normocephalic EYES; Anicteric, Normal Conjunctiva NECK; supple, normal thyroid, RESPIRATORY: Diminished to auscultation CARDIOVASCULAR: Regular S1 S2, GI: soft, normoactive bowel sounds, : No Renal angle tenderness; EXTREMITIES: No edema, no clubbing, MUSCULOSKELETAL: no muscle wasting NEURO: Awake; no lateralizing signs. SKIN: No Rash PSYCH; Flat affect Assessment & Plan Assessment/Plan (1) COPD with acute exacerbation: (2) Hypoxia: PLAN: Plan Patient is a 72-year-old lady with history of COPD presented with progressive shortness of breath with associated cough and upper respiratory tract symptoms. An assessment of COPD with acute exacerbation made admitted to regular nursing floor for further management 1. COPD with acute exacerbation ? Patient has been admitted to regular nursing floor managed with systemic steroid bronchodilator treatment as well as supplemental oxygen titrated to keepsaturation greater than 90 skilled ? 11/20/2023 patient remains on supplemental oxygen plan is to wean off oxygen prior to discharge. 2. Diabetes mellitus type 2 ? Uncontrolled due to concomitant use of systemic steroid. Glucose this a.m. 585. Adjusted patient insulin regimen. Also placed on Accu-Cheks before meals and at bedtime with sliding scale coverage ? 11/19/2023;Patient was transferred to a monitored bed started on insulin drip given persistently high glucose levels. Patient glucose levels were in the 700s. ? 11/20/2023 insulin drip has been weaned off 3. Fall with recent comminuted left hip fracture ?Patient underwent ORIF on 10/11/2023 was discharged to a half-way facility will continue PT OT as tolerated 4. Class II obesity with BMI of 37.6 ? Complicating care weight loss advised 5. Dyslipidemia -Patient is on statin therapy, continued at home dose 6. Essential hypertension ? Patient blood pressure control on admission was not optimal at home medications were resumed we will continue monitoring with hydralazine return as needed for systolic blood pressure greater than 160 7. Dyslipidemia -Patient is on statin therapy, continued at home dose 8. Depression ? Patient is on Lexapro 9. Sinus tachycardia ? Thought to be reactive. 10. Hyponatremia ? Secondary to patient being on diuretic therapy specifically HCTZ will monitor with daily BMPs 11. Rheumatoid arthritis ? Patient is on methotrexate 12. Gastroparesis ? Patient is managed by GI as outpatient currently not on any prokinetic 13. Chronic congestive heart failure with preserved ejection fraction ? Patient was previously on metolazone currently off. Patient remains compensated 14 . DVT prophylaxis ? Patient is on Xarelto Time spent in the patient's overall evaluation,decision-making process, review of diagnostic data, adjustment of management, discussion with other providers, nursing nursing and ancillary staff involved in patient's care documentation, 35 Minutes Charges/Coding Visit Charges Inpatient E&M: 41027 Subs Hosp L2 11/20/23 0856 <Electronically signed by Anthony Perez MD> Cosigner Signature (if applicable): CC: ~ Signed [facility] Work Phone: 1(111) 492-881504-06-2024 Progress note Author Anthony Perez [facility] November 19, 2023 9:09am Note Date/Time November 19, 2023 8:24 am [facility] Medical Records Department [address] [place] [address] Progress Note - Hospitalist 11/19/23822 MR#: [id number] Acct: [id number] Name: MANISHA KEITH Rep #:[id number] : 1950 73 From: Anthony Perez MD PCP: Dr. Ilir Hernández MD Status:ADM I N Location: [place] [address] Reason for Visit Reason for Visit: Diagnoses Chronic obstructive pulmonary disease with (acute) exacerbation (11/17/23) Hypoxemia (11/17/23) Subjective Subjective Patient was transferred to a monitored bed started on insulin drip given persistently high glucose levels. Patient glucose levels were in the 700s. Objective Data Objective Data Vital Signs: Vital Signs Temp Pulse Resp BP Pulse Ox O2 Del Method O2 Flow Rate 98.2 F 80 18 117/55 L 96 Nasal Cannula 3 11/19/23 08:00 11/19/23 08:00 11/19/23 08:00 11/19/23 08:00 11/19/23 08:00 11/19/23 08:00 11/19/23 08:00 Oxygen Flow Rate (L/min) 3 Oxygen Delivery Method Nasal Cannula Weight: 90.265 kg Body Mass Index (BMI) 37.5 Intake & Output: Intake and Output for Last 24 Hours 11/17/23 11/18/23 11/19/23 23:59 23:59 23:59 Intake Total 583.39 / 783.39 271.99 / 271.99 Output Total 900 / 1250 850 / 850 Balance -316.61 / -466.61 -578.01 / -578.01 Lab / Micro Data 11/19/23 07:35 11/19/23 07:35 Labs: Laboratory Results - last 24 hr 11/18/23 07:05: Sodium 132 L, Potassium 4.1, Chloride 101, Carbon Dioxide 21.0, Anion Gap 10, BUN 22 H, Creatinine 1.35 H, Estim Creat Clear Calc 39.09, Est GFR(MDRD) Af Amer 50 L, Est GFR (MDRD) Non-Af 41 L, BUN/Creatinine Ratio 16.3, Glucose 585 H*, Calcium 8.7 11/18/23 09:23: POC Glucose > 500 H* 11/18/23 11:21: POC Glucose > 500 H* 11/18/23 11:31: Glucose 790 H* 11/18/23 13:04: POC Glucose > 500 H* 11/18/23 13:16: Sodium 131 L, Potassium 4.5, Chloride 100, Carbon Dioxide 22.0, Anion Gap 9, Glucose 849 H* 11/18/23 15:39: POC Glucose > 500 H* 11/18/23 16:10: Glucose 642 H* 11/18/23 17:34: Glucose 466 H* 11/18/23 17:43: POC Glucose 447 H 11/18/23 18:45: POC Glucose 360 H 11/18/23 19:43: POC Glucose 338 H 11/18/23 20:43: POC Glucose 398 H 11/18/23 21:58: POC Glucose 382 H 11/18/23 22:54: POC Glucose 372 H 11/18/23 23:50: POC Glucose 343 H 11/19/23 01:45: POC Glucose 305 H 11/19/23 03:46: POC Glucose 241 H 11/19/23 04:50: POC Glucose 254 H 11/19/23 05:52: POC Glucose 223 H 11/19/23 06:44: POC Glucose 202 H 11/19/23 07:35: WBC 18.3 H, RBC 3.01 L, Hgb 9.2 L, Hct 28.7 L, MCV 95.3, MCH 30.6, MCHC 32.1, RDW Std Deviation 46.2 H, RDW Coeff of Tom 13.7, Plt Count 342,MPV 9.0, Immature Gran % (Auto) 0.700, Neut % (Auto) 87.0 H, Lymph % (Auto) 7.4 L, [place] % (Auto) 4.6, Eos % (Auto) 0.1, Baso % (Auto) 0.2, Absolute Neuts (auto)15.9 H, Absolute Lymphs (auto) 1.36, Nucleated RBC % 0 Micro: Microbiology 11/17/23 11:53 Blood Culture (Wb) - Right Forearm Blood Culture - Preliminary No growth in 48 hours. 11/17/23 11:20 Blood Culture (Wb) - Right Forearm Blood Culture - Preliminary No growth in 48 hours. 11/17/23 21:15 Sputum, Expectorated/Coughed Gram Stain - Final 11/18/23 00:25 Urine, Clean Catch Legionella Antigen - Final 11/18/23 00:25 Urine, Clean Catch Streptococcus pneumoniae Antigen (M - Final 11/17/23 15:31 Mucosa - Nasopharyngeal Respiratory Panel (PCR) - Final 11/17/23 11:25 Mucosa - Nasopharyngeal SARS-CoV-2, Influenza & RSV (PCR) - Final Physical Exam Narrative GENERAL: cooperative HEENT: Atraumatic; normocephalic EYES; Anicteric, Normal Conjunctiva NECK; supple, normal thyroid, RESPIRATORY: Diminished to auscultation CARDIOVASCULAR: Regular S1 S2, GI: soft, normoactive bowel sounds, : No Renal angle tenderness; EXTREMITIES: No edema, no clubbing, MUSCULOSKELETAL: no muscle wasting NEURO: Awake; no lateralizing signs. SKIN: No Rash PSYCH; Flat affect Assessment & Plan Assessment/Plan (1) COPD with acute exacerbation: (2) Hypoxia: PLAN: Plan Patient is a 72-year-old lady with history of COPD presented with progressive shortness of breath with associated cough and upper respiratory tract symptoms. An assessment of COPD with acute exacerbation made admitted to regular nursing floor for further management 1. COPD with acute exacerbation ? Patient has been admitted to regular nursing floor managed with systemic steroid bronchodilator treatment as well as supplemental oxygen titrated to keepsaturation greater than 90 2. Sinus tachycardia ? Thought to be reactive. 3. Fall with recent comminuted left hip fracture ?Patient underwent ORIF on 10/11/2023 was discharged to a half-way facility will continue PT OT as tolerated 4. Class II obesity with BMI of 37.6 ? Complicating care weight loss advised 5. Dyslipidemia -Patient is on statin therapy, continued at home dose 6. Essential hypertension ? Patient blood pressure control on admission was not optimal at home medications were resumed we will continue monitoring with hydralazine return as needed for systolic blood pressure greater than 160 7. Dyslipidemia -Patient is on statin therapy, continued at home dose 8. Depression ? Patient is on Lexapro 9. Diabetes mellitus type 2 ? Uncontrolled due to concomitant use of systemic steroid. Glucose this a.m. 585. Adjusted patient insulin regimen. Also placed on Accu-Cheks before meals and at bedtime with sliding scale coverage ? 11/19/2023;Patient was transferred to a monitored bed started on insulin drip given persistently high glucose levels. Patient glucose levels were in the 700s. 10. Hyponatremia ? Secondary to patient being on diuretic therapy specifically HCTZ will monitor with daily BMPs 11. Rheumatoid arthritis ? Patient is on methotrexate 12. Gastroparesis ? Patient is managed by GI as outpatient currently not on any prokinetic 13. Chronic congestive heart failure with preserved ejection fraction ? Patient was previously on metolazone currently off. Patient remains compensated 14 . DVT prophylaxis ? Patient is on Xarelto Time spent in the patient's overall evaluation,decision-making process, review of diagnostic data, adjustment of management, discussion with other providers, nursing nursing and ancillary staff involved in patient's care documentation, 50 Minutes Charges/Coding Visit Charges Inpatient E&M: 00209 Subs Hosp L3 11/19/23 0909 <Electronically signed by Anthony Perez MD> Cosigner Signature (if applicable): CC: ~ Signed [facility] Work Phone: 1(324) 468-489604-05-2024 Progress note Author Anthony [facility] November 18, 2023 8:47am Note Date/Time November 18, 2023 7:31 am [facility] Medical Records Department [address] [place] [id number] Progress Note - Hospitalist 11/18/23 0731 MR#: [id number] Acct: [id number] Name: MANISHA KEITH Rep #:[id number] : 1950 73 From: Anthony Perez MD PCP: Dr. Ilir Hernández MD Status:ADM I N Location: [place] [address] Reason for Visit Reason for Visit: Diagnoses Chronic obstructive pulmonary disease with (acute) exacerbation (11/17/23) Hypoxemia (11/17/23) Subjective Subjective Patient is a 72-year-old lady with history of COPD presented with progressive shortness of breath with associated cough and upper respiratory tract symptoms. An assessment of COPD with acute exacerbation made admitted to regular nursing floor for further management Objective Data Objective Data Vital Signs: Vital Signs Temp Pulse Resp BP Pulse Ox O2 Del Method O2 Flow Rate 97.9 F 97 20 H 151/77 H 97 Nasal Cannula 2 11/18/23 02:00 11/18/23 02:26 11/18/23 02:26 11/18/23 02:00 11/18/23 02:00 11/18/23 02:00 11/18/23 02:00 Oxygen Flow Rate (L/min) 2 Oxygen Delivery Method Nasal Cannula Weight: 90.265 kg Body Mass Index (BMI) 37.5 Intake & Output: Intake and Output for Last 24 Hours 11/16/23 11/17/23 11/18/23 23:59 23:59 23:59 Output Total 900 / 900 Balance -900 / -900 Lab / Micro Data 11/18/23 07:05 11/18/23 07:05 Labs: Laboratory Results - last 24 hr 11/17/23 11:20: WBC 17.1 H, RBC 3.44 L, Hgb 10.5 L, Hct 32.6 L, MCV 94.8, MCH 30.5, MCHC 32.2, RDW Std Deviation 46.8 H, RDW Coeff of Tom 13.7, Plt Count 269,MPV 8.7, Immature Gran % (Auto) 0.600, Neut % (Auto) 85.2 H, Lymph % (Auto) 5.6 L, Attala % (Auto) 5.6, Eos % (Auto) 2.5, Baso % (Auto) 0.5, Absolute Neuts (auto)14.6 H, Absolute Lymphs (auto) 0.96, Nucleated RBC % 0, Sodium 138, Potassium 3.8, Chloride 105, Carbon Dioxide 24.0, Anion Gap 9, BUN 16, Creatinine 0.90, Estim Creat Clear Calc 59.01, Est GFR (MDRD) Af Amer 79, Est GFR (MDRD) Non-Af 65, BUN/Creatinine Ratio 17.7, Glucose 162 H, Calcium 8.8, Troponin I High Sens 4, B-Natriuretic Peptide 21.1 11/17/23 14:27: POC Glucose 45 L 11/17/23 15:18: POC Glucose 175 H 11/18/23 06:20: POC Glucose 492 H* Micro: Microbiology 11/18/23 00:25 Urine, Clean Catch Legionella Antigen - Final 11/18/23 00:25 Urine, Clean Catch Streptococcus pneumoniae Antigen (M - Final 11/17/23 15:31 Mucosa - Nasopharyngeal Respiratory Panel (PCR) - Final 11/17/23 11:25 Mucosa - Nasopharyngeal SARS-CoV-2, Influenza & RSV (PCR) - Final ABG Data ABG results: ABG 11/17/23 15:38 Specimen Type ART Sample Site R Radial pH 7.42 Bicarbonate Actual 23.8 Total CO2 25 Base Excess -1 O2 Saturation 95 O2 % 2.0 ABG pCO2 36.9 ABG pO2 72 L O2 Delivery Device Cannula Vent Mode Not entered Radiography Diagnostic Testing: Radiology Impression Chest X-Ray 11/17/23 11:26 IMPRESSION: No acute abnormality is seen. Electronically Signed: Jean Rodriguez MD at 12:06 EDT , Chest CTA 11/17/23 13:30 IMPRESSION: No evidence of pulmonary embolism. Findings suggestive of scarring at the lung bases with superimposed atelectasis. Cholelithiasis. Stable 2 cm left adrenal adenoma. Electronically Signed: Jean Rodriguez MD at 14:08 EDT , Physical Exam Narrative GENERAL: cooperative HEENT: Atraumatic; normocephalic EYES; Anicteric, Normal Conjunctiva NECK; supple, normal thyroid, RESPIRATORY: Diminished to auscultation CARDIOVASCULAR: Regular S1 S2, GI: soft, normoactive bowel sounds, : No Renal angle tenderness; EXTREMITIES: No edema, no clubbing, MUSCULOSKELETAL: no muscle wasting NEURO: Awake; no lateralizing signs. SKIN: No Rash PSYCH; Flat affect Assessment & Plan Assessment/Plan (1) COPD with acute exacerbation: (2) Hypoxia: PLAN: Plan Patient is a 72-year-old lady with history of COPD presented with progressive shortness of breath with associated cough and upper respiratory tract symptoms. An assessment of COPD with acute exacerbation made admitted to regular nursing floor for further management 1. COPD with acute exacerbation ? Patient has been admitted to regular nursing floor managed with systemic steroid bronchodilator treatment as well as supplemental oxygen titrated to keepsaturation greater than 90 2. Sinus tachycardia ? Thought to be reactive. 3. Fall with recent comminuted left hip fracture ?Patient underwent ORIF on 10/11/2023 was discharged to a half-way facility will continue PT OT as tolerated 4. Class II obesity with BMI of 37.6 ? Complicating care weight loss advised 5. Dyslipidemia -Patient is on statin therapy, continued at home dose 6. Essential hypertension ? Patient blood pressure control on admission was not optimal at home medications were resumed we will continue monitoring with hydralazine return as needed for systolic blood pressure greater than 160 7. Dyslipidemia -Patient is on statin therapy, continued at home dose 8. Depression ? Patient is on Lexapro 9. Diabetes mellitus type 2 ? Uncontrolled due to concomitant use of systemic steroid. Glucose this a.m. 585. Adjusted patient insulin regimen. Also placed on Accu-Cheks before meals and at bedtime with sliding scale coverage 10. Hyponatremia ? Secondary to patient being on diuretic therapy specifically HCTZ will monitor with daily BMPs 11. Rheumatoid arthritis ? Patient is on methotrexate 12. Gastroparesis ? Patient is managed by GI as outpatient currently not on any prokinetic 13. Chronic congestive heart failure with preserved ejection fraction ? Patient was previously on metolazone currently off. Patient remains compensated 14 . DVT prophylaxis ? Patient is on Xarelto Time spent in the patient's overall evaluation,decision-making process, review of diagnostic data, adjustment of management, discussion with other providers, nursing nursing and ancillary staff involved in patient's care documentation, 52 Minutes Charges/Coding Visit Charges Inpatient E&M: 52922 Subs Hosp L3 11/18/23 0835 <Electronically signed by Anthony Perez MD> Cosigner Signature (if applicable): CC: ~ Signed [facility] Work Phone: 1([phone]) 378-117904-04-2024 History and physical note Author Jj Whitfield [facility] November 17, 2023 4:20pm Note Date/Time November 17, 2023 2:44 pm [facility] Medical Records Department [address] [place] [address] [place] [address] H&P Exam - Hospitalist 11/17/23 1439 MR#: [id number] Acct: [id number] Name: MANISHA KEITH Rep #:[id number] : 1950 73 From: Jj Greer PCP: Dr. Ilir Hernández MD Status:ADM I N Location: [place] [address] HPI - General General Date of Admission: 11/17/23 Date of Service: 11/17/23 Chief Complaint: Shortness of breath progressively worsening for 1 month. HPI Narrative MANISHA KEITH, is a 73 F with history of COPD on BiPAP at home but not on oxygen came to ED with progressive worsening of shortness of breath with productive cough and URI symptoms for about 1 month. Patient states she had pneumonia about 3 months ago and then completed 1 round of antibiotic by PCP. For last month she is having shortness of breath, wheezing dyspnea on mild exertion progressing to rest, cough with thick sputum production. She also complained that right ear feels blocked or feeling. Complain of chills and shivering but no fever or diaphoresis. She has mild chest congestion but denies chest pressure pain. Denies history ofCAD/CHF or A-fib There. Prior to that patient had left hip fracture in September 2023 and was admitted here. In ED, patient was found tachypneic, BP high 124/136, tachycardic pulse ox 90% on 2 L of oxygen. Patient was given DuoNeb and IV Solu-Medrol. Imaging was done and discussed in details with the plan. [facility] Medical History Allergic rhinitis Anxiety Arthritis Asthma Back problem Breast cancer Breast lump Calcium deficiency Cancer Cardiology follow-up encounter Carpal tunnel syndrome Cataract Chronic bronchitis Chronic cough Closed left hip fracture COPD (chronic obstructive pulmonary disease) Diabetes mellitus, type II Dietary restriction Diverticulosis Easy bruising Essential hypertension Former smoker Gall stone Gastrointestinal problem GERD (gastroesophageal reflux disease) History of cervical cancer History of Clostridium difficile infection History of edema History of gastrostomy tube placement History of Holter monitoring History of stress test History of vaginal delivery Hives IBS (irritable bowel syndrome) Inflammatory polyarthritis Injury of head and neck Internal hemorrhoids Leg cramps Loss of consciousness MSSA (methicillin susceptible Staphylococcus aureus) pneumonia Neuropathy OAB (overactive bladder) Obesity Osteoarthritis Osteoporosis Pancreatitis Recurrent infections Restless legs Rhabdomyolysis (04/2017) Seasonal allergies Shortness of breath on exertion Sleep apnea Urinary incontinence UTI (urinary tract infection) Vision problems Wears dentures Wears glasses Home Medications fluticasone propionate 50 mcg/actuation nasal spray,suspension 1 spray intranasal DAILY PRN NASAL CONGESTION 01/30/14 [History Last Taken 06/20/23] methotrexate sodium 2.5 mg tablet 20 mg PO TEJADA BREAST CANCER 04/16/17 [History Last Taken 06/19/23] albuterol sulfate 90 mcg/actuation aerosol inhaler (ProAir HFA) 2 puff inhalation Q4H PRN SHORTNESS OF BREATH 06/05/21 [History Last Taken Unknown] escitalopram oxalate 10 mg tablet (Lexapro) 10 mg PO DAILY PRN DEPRESSION 06/05/21 [History Last Taken 1 Week Ago ~05/29/21] fluticasone fur. 100 mcg-umeclid 62.5 mcg-vilant 25 mcg inhalat.powder (Trelegy Ellipta) 1 inh inhalation DAILY SHORTNESS OF BREATH 06/05/21 [History Last Taken 1 Week Ago ~05/29/21] folic acid 1 mg tablet 2 mg PO DAILY SUPPLEMENT 06/05/21 [History Last Taken 06/20/23] hydrochlorothiazide 12.5 mg capsule 12.5 mg PO DAILY BLOOD PRESSURE 06/05/21 [History Last Taken 06/20/23] losartan 100 mg tablet 100 mg PO DAILY BLOOD PRESSURE 06/05/21 [History Last Taken 06/20/23] aspirin 81 mg tablet,delayed release (Adult Low Dose Aspirin) 81 mg PO DAILY HEART HEALTH 02/05/22 [History Last Taken 06/20/23] gabapentin 300 mg capsule 300 mg PO QHS NEUROPATHY 02/05/22 [History Last Taken 06/20/23] oxybutynin chloride 10 mg tablet,extended release 24 hr 20 mg PO DAILY OVERACTIVE BLADDER 02/05/22 [History Last Taken 06/20/23] metoprolol succinate 100 mg tablet,extended release 24 hr 100 mg PO DAILY BLOOD PRESSURE 02/24/22 [History Last Taken 06/20/23] esomeprazole magnesium 40 mg capsule,delayed release (Nexium) 40 mg PO DAILY ACID REFLUX 11/26/22 [History Last Taken 06/20/23] loratadine 10 mg tablet 10 mg PO DAILY PRN ALLERGIES 11/26/22 [History Last Taken Unknown] metformin 500 mg tablet,extended release 24 hr 500 mg PO BREAKFAST DIABETES 11/26/22 [History Last Taken Unknown] pen needle, diabetic 32 gauge x 5/32 (BD Ultra-Fine Tish Pen Needle) #100 ea 11/26/22 [Rx Last Taken Unknown] atorvastatin 20 mg tablet 20 mg PO DAILY CHOLESTEROL 06/21/23 [History Last Taken 06/20/23] fexofenadine 180 mg tablet (Nury Allergy) 180 mg PO BID ALLERGIES 06/21/23 [History Last Taken 06/20/23] metaxalone 800 mg tablet 800 mg PO TID PRN MUSCLE CRAMPS 06/21/23 [History Last Taken Unknown] verapamil 120 mg tablet,extended release 120 mg PO QHS BLOOD PRESSURE 06/21/23 [History Last Taken 06/20/23] oxycodone 5 mg tablet 5 mg PO Q6H PRN PRN Pain Score 6-10 3 days #12 tabs 10/13/23 [Rx Last Taken Unknown] rivaroxaban 10 mg tablet (Xarelto) 10 mg PO DAILY@0600 #30 tabs 10/13/23 [Rx Last Taken Unknown] insulin regular hum U-500 conc 500 unit/mL(3 mL) subcut pen (Humulin R U-500 (Conc) Insulin Kwikpen) See Rx Instructions subcut TIDCM #10.8 mL 11/10/23 [Rx Last Taken Unknown] blood sugar diagnostic (DesallTouch Verio test strips) #150 ea 11/15/23 [Rx Last Taken Unknown] nitrofurantoin monohydrate/macrocrystals 100 mg capsule 1 cap PO BID 11/15/23 [History Last Taken Unknown] Allergy/AdvReac Type Severity Reaction Status Date / Time JESENIA Inhibitors Allergy Intermediate Cough Verified 11/17/23 10:45 adhesive tape Allergy Intermediate blisters Verified 11/17/23 10:45 dulaglutide [facility] Allergy Intermediate Gastropares Verified 11/17/23 10:45 is chondroitin sulfate A Allergy Rash Verified 11/17/23 10:45 [From DuoVisc Visco Elastic] hyaluronic acid Allergy Rash Verified 11/17/23 10:45 [From DuoVisc Visco Elastic] NSAIDS (Non-Steroidal Allergy Other Verified 11/17/23 10:45 Anti-Inflamma Family History Other Alcohol abuse Anxiety Arthritis Asthma defect COPD (chronic obstructive pulmonary disease) Cancer Diabetes High cholesterol Hypertension Seizures Surgical History History of appendectomy History of colonoscopy History of hysterectomy History of left mastectomy History of nasal cauterization Social History Smoking Status: Former smoker alcohol intake: current alcohol intake frequency: 0-2 drinks per day substance use type: does not use what type of physical activity do you participate in: none ROS ROS Narrative Constitutional: Reports fatigue and weakness. No fever. HEENT: Reports systems reviewed and no addt'l complaints, except as documented Respiratory/Chest: As described in HPI. CVS: No chest pressure or pain. Gastrointestinal: Denies coffee ground emesis, hematemesis or vomiting Genitourinary: Denies burning micturition. Was found to have bacteriuria, increased frequency, mild suprapubic pressure and started on antibiotic by PCP. 4 more days of antibiotic left Musculoskeletal: Denies acute joint pain or limited range of motion. No acute injury Neurologic: Denies seizure-like symptoms. skin: No ulcer. No rash Endocrinology: Reports systems reviewed and no addt'l complaints, except as documented Hematologic/Lymphatic: Reports systems reviewed and no addt'l complaints, exceptas documented Rest 14 ROS are negative except as mentioned in HPI Vital Signs Vital Signs Vital Signs: 11/17/23 10:45 11/17/23 10:48 11/17/23 10:57 Temperature 99 F 99 F Temperature Source Temporal Temporal Pulse Rate 125 H 122 H Respiratory Rate 16 16 Respiratory Effort Short of Breath Respiratory Pattern Tachypnea Blood Pressure 174/136 H 172/83 H Blood Pressure Mean 148 112 Pulse Ox 92 92 Oxygen Delivery Method Room Air Room Air Room Air Oxygen Flow Rate (L/min) 11/17/23 11:36 11/17/23 11:36 11/17/23 11:48 Temperature 99.7 F H Temperature Source Temporal Pulse Rate 119 H 119 H Respiratory Rate 34 H 23 H Respiratory Effort Respiratory Pattern Tachypnea Blood Pressure 149/62 H Blood Pressure Mean 91 Pulse Ox 90 92 Oxygen Delivery Method Nasal Cannula Nasal Cannula Oxygen Flow Rate (L/min) 2 3 11/17/23 12:00 11/17/23 11:03 11/17/23 11:15 Temperature 99.7 F H Temperature Source Temporal Pulse Rate 118 H 122 H 122 H Respiratory Rate 26 H 29 H 35 H Respiratory Effort Respiratory Pattern Blood Pressure 145/69 H Blood Pressure Mean 94 Pulse Ox 90 92 91 Oxygen Delivery Method Nasal Cannula Oxygen Flow Rate (L/min) 11/17/23 11:30 11/17/23 11:45 11/17/23 12:00 Temperature Temperature Source Pulse Rate 122 H 120 H 118 H Respiratory Rate 22 H 27 H 37 H Respiratory Effort Respiratory Pattern Blood Pressure 153/63 H 149/62 H 145/65 H Blood Pressure Mean 89 85 85 Pulse Ox 91 90 90 Oxygen Delivery Method Oxygen Flow Rate (L/min) 11/17/23 12:15 11/17/23 12:30 11/17/23 12:45 Temperature Temperature Source Pulse Rate 116 H 115 H 117 H Respiratory Rate 33 H 30 H 17 Respiratory Effort Respiratory Pattern Blood Pressure 147/59 H 140/63 H 145/62 H Blood Pressure Mean 84 84 82 Pulse Ox 90 89 92 Oxygen Delivery Method Oxygen Flow Rate (L/min) 11/17/23 13:00 11/17/23 14:00 Temperature 99.6 F H 97.8 F Temperature Source Temporal Temporal Pulse Rate 108 H 104 H Respiratory Rate 21 H 23 H Respiratory Effort Respiratory Pattern Blood Pressure 128/56 H 135/57 H Blood Pressure Mean 80 83 Pulse Ox 92 92 Oxygen Delivery Method Nasal Cannula Nasal Cannula Oxygen Flow Rate (L/min) 3 3 Weight Weight: 201 lb 4.8 oz Body Mass Index (BMI) 38.0 Physical Exam Narrative General: Alert, Oriented x3, Cooperative HEENT: Right ear, TM retracted. TM not clearly visualized but no obvious perforation. Left ear mild wax. Atraumatic, PERRLA, EOMI, Normocephalic Oral: Oral mucosa dry. No Gingival or Mucosal Lesions/ Ulcerations Neck: Supple, No JVD, Negative Carotid Bruits Chest wall/Lungs: Air entry diminished in bilateral lung bases. Expiratory phase prolonged, bilateral wheezing. Mild hypoxia and tachypnea. Cardiovascular: Sinus tachycardia, Normal S1, Normal S2, No M/G/R Abdomen: Bowel Sounds Present, Soft, Non Tender, Non-Distended : No dysuria. No renal angle tenderness. No suprapubic tenderness. Extremities: No edema, Capillary Refill Less than 3 Seconds Skin: No rashes, No breakdown Musculoskeletal: No Tenderness to Palpation of Joints or Extremities Neurological: Cranial nerves II-XII grossly intact, DTR 2+/4. No acute focal neurological deficit. Psych/Mental Status: Flat affect Results Lab / Micro Data 11/17/23 11:20 11/17/23 11:20 Labs: Laboratory Results - last 24 hr 11/17/23 11:20: WBC 17.1 H, RBC 3.44 L, Hgb 10.5 L, Hct 32.6 L, MCV 94.8, MCH 30.5, MCHC 32.2, RDW Std Deviation 46.8 H, RDW Coeff of Tom 13.7, Plt Count 269,MPV 8.7, Immature Gran % (Auto) 0.600, Neut % (Auto) 85.2 H, Lymph % (Auto) 5.6 L, [place] % (Auto) 5.6, Eos % (Auto) 2.5, Baso % (Auto) 0.5, Absolute Neuts (auto)14.6 H, Absolute Lymphs (auto) 0.96, Nucleated RBC % 0, Sodium 138, Potassium 3.8, Chloride 105, Carbon Dioxide 24.0, Anion Gap 9, BUN 16, Creatinine 0.90, Estim Creat Clear Calc 59.01, Est GFR (MDRD) Af Amer 79, Est GFR (MDRD) Non-Af 65, BUN/Creatinine Ratio 17.7, Glucose 162 H, Calcium 8.8, Troponin I High Sens 4, B-Natriuretic Peptide 21.1 Micro: Microbiology 11/17/23 11:25 Mucosa - Nasopharyngeal SARS-CoV-2, Influenza & RSV (PCR) - Final Imaging Radiology Impression Chest X-Ray 11/17/23 11:26 IMPRESSION: No acute abnormality is seen. Electronically Signed: Jean Rodriguez MD at 12:06 EDT , Chest CTA 11/17/23 13:30 IMPRESSION: No evidence of pulmonary embolism. Findings suggestive of scarring at the lung bases with superimposed atelectasis. Cholelithiasis. Stable 2 cm left adrenal adenoma. Electronically Signed: Jean Rodriguez MD at 14:08 EDT , Assessment & Plan Assessment/Plan (1) COPD with acute exacerbation: (2) Hypoxia: PLAN: Plan This 72-year-old female being admitted for progressive worsening shortness of breath cough with thick productive sputum and URI symptoms history of COPD exacerbation. 1. COPD exacerbation with mild hypoxia: [facility] ABG was done which shows 7.4 on 2 L of oxygen through nasal cannula. Patient states she uses BiPAP at night and follows Dr. Sophia Alvares [facility]. Patient is being managed on scheduled bronchodilator, IV Solu-Medrol, Mucinex, incentive spirometry and Pep. Chest x-ray and CT head done which did not show acute infiltrate but is scarring at the lung bases with atelectasis. No PE. 2. Sinus tachycardia: Patient tachycardic on the monitor. Heart rate 128/min close to 140s. Denies history of PE or arrhythmia in the past, probably driven by COPD exacerbation. 1 dose of metoprolol 5 mg IV given. Current heart rate 82/min. 3. Recent comminuted left hip fracture due to mechanical fall patient was admitted between 10/11 to 10/13/2023 for hip fracture. She was discharged to SNF and then to home. PT and OT ordered. 4. Diabetes mellitus type 2 with mild hyperglycemia: Glucose in BMP is 162. Accu-Chek insulin cover with block sliding scale. 5. Dyslipidemia: On statin 6. Benign essential hypertension: BP was high systolic 172. Most recent 134/49. Continue home medication hydrochlorothiazide and losartan. Also on verapamil and metoprolol. 7. Depression: On Lexapro DVT prophylaxis: On Xarelto 10 mg daily. Living will/advanced directive/end of life care: Patient does have living will or advanced directive. Her daughter is power of insurance defense attorney for health. After discussion of benefits/risks procedures involved with full code, DNR CC arrest and DNR CC, the patient opted for full code. Patient does want artificial life support including intubation, tube feed, ventilator and/chest compression, central venous catheter, vasopressor and DC shock if needed Total time spent in [id number] encounter in discussion of advanced directive 17 minutes. Microbiology Past 72 Hours 11/17/23 11:25 Mucosa - Nasopharyngeal SARS-CoV-2, Influenza & RSV (PCR) - Final Laboratory Results 11/17/23 11:20: WBC 17.1 H, RBC 3.44 L, Hgb 10.5 L, Hct 32.6 L, MCV 94.8, MCH 30.5, MCHC 32.2, RDW Std Deviation 46.8 H, RDW Coeff of Tom 13.7, Plt Count 269,MPV 8.7, Immature Gran % (Auto) 0.600, Neut % (Auto) 85.2 H, Lymph % (Auto) 5.6 L, Att[place] % (Auto) 5.6, Eos % (Auto) 2.5, Baso % (Auto) 0.5, Absolute Neuts (auto)14.6 H, Absolute Lymphs (auto) 0.96, Nucleated RBC % 0, Sodium 138, Potassium 3.8, Chloride 105, Carbon Dioxide 24.0, Anion Gap 9, BUN 16, Creatinine 0.90, Estim Creat Clear Calc 59.01, Est GFR (MDRD) Af Amer 79, Est GFR (MDRD) Non-Af 65, BUN/Creatinine Ratio 17.7, Glucose 162 H, Calcium 8.8,Troponin I High Sens 4, B-Natriuretic Peptide 21.1 Clinical Impression(s) from Imaging Studies Chest X-Ray 11/17/23 11:26 IMPRESSION: No acute abnormality is seen. Chest CTA 11/17/23 13:30 IMPRESSION: No evidence of pulmonary embolism. Findings suggestive of scarring at the lung bases with superimposed atelectasis. Cholelithiasis. Stable 2 cm left adrenal adenoma. Charges/Coding Visit Charges Inpatient E&M: 57278 Init Hosp L3 Procedures Hospitalists Procedures: 13238 Advncd Care Plan 30 Min 11/17/23 1620 <Electronically signed by Jj Whitfield MD> Cosigner Signature (if applicable): CC: Dr. Jj Whitfield MD; Dr. Ilir Hernández MD~ Signed [facility] Work Phone: 1(260) 691-931504-04-2024 Discharge summary Author [place] Jessica [facility] November 17, 2023 4:02pm Note Date/Time November 17, 2023 11:2 4am [facility] Medical Records Department [address] [place] [address] Emergency Department Summary 11/17/23 MR#: [id number] Acct: [id number] Name: MANISHA KEITH Rep #:[id number] : 1950 73 From: [place] Jessica MD PCP: Dr. Ilir Hernández MD Status:ADM I N Location: [place] [address] HPI History of Present Illness Chief Complaint: Shortness of Breath Informant: patient Onset/Context/Timing Onset: Days Narrative Narrative: Patient presents secondary to shortness of breath with cough and chills. Patient is currently receiving home health after a hip fracture and surgery in October. Home health nurse today noted that her cough was more moist than normal,her heart rate was elevated in the 120s, and her pulse ox was 85% on room air. Patient does have a history of COPD and asthma. She states that she is currently staying with her daughter and only has one of her 2 inhalers with her. She is currently on Macrobid for a UTI. She does have increased lower extremity edema. She is currently on Xarelto. [facility] Medical History (Updated 11/17/23 @ 14:[address] [place] Jessica MD) Allergic rhinitis Anxiety Arthritis Asthma Back problem Breast cancer Breast lump Calcium deficiency Cancer Cardiology follow-up encounter Carpal tunnel syndrome Cataract Chronic bronchitis Chronic cough Closed left hip fracture COPD (chronic obstructive pulmonary disease) Diabetes mellitus, type II Dietary restriction Diverticulosis Easy bruising Essential hypertension Former smoker Gall stone Gastrointestinal problem GERD (gastroesophageal reflux disease) History of cervical cancer History of Clostridium difficile infection History of edema History of gastrostomy tube placement History of Holter monitoring History of stress test History of vaginal delivery Hives IBS (irritable bowel syndrome) Inflammatory polyarthritis Injury of head and neck Internal hemorrhoids Leg cramps Loss of consciousness MSSA (methicillin susceptible Staphylococcus aureus) pneumonia Neuropathy OAB (overactive bladder) Obesity Osteoarthritis Osteoporosis Pancreatitis Recurrent infections Restless legs Rhabdomyolysis (04/2017) Seasonal allergies Shortness of breath on exertion Sleep apnea Urinary incontinence UTI (urinary tract infection) Vision problems Wears dentures Wears glasses Home Medications fluticasone propionate 50 mcg/actuation nasal spray,suspension 1 spray intranasal DAILY PRN NASAL CONGESTION 01/30/14 [History Last Taken 06/20/23] methotrexate sodium 2.5 mg tablet 20 mg PO TEJADA BREAST CANCER 04/16/17 [History Last Taken 06/19/23] albuterol sulfate 90 mcg/actuation aerosol inhaler (ProAir HFA) 2 puff inhalation Q4H PRN SHORTNESS OF BREATH 06/05/21 [History Last Taken Unknown] escitalopram oxalate 10 mg tablet (Lexapro) 10 mg PO DAILY PRN DEPRESSION 06/05/21 [History Last Taken 1 Week Ago ~05/29/21] fluticasone fur. 100 mcg-umeclid 62.5 mcg-vilant 25 mcg inhalat.powder (Trelegy Ellipta) 1 inh inhalation DAILY SHORTNESS OF BREATH 06/05/21 [History Last Taken 1 Week Ago ~05/29/21] folic acid 1 mg tablet 2 mg PO DAILY SUPPLEMENT 06/05/21 [History Last Taken 06/20/23] hydrochlorothiazide 12.5 mg capsule 12.5 mg PO DAILY BLOOD PRESSURE 06/05/21 [History Last Taken 06/20/23] losartan 100 mg tablet 100 mg PO DAILY BLOOD PRESSURE 06/05/21 [History Last Taken 06/20/23] aspirin 81 mg tablet,delayed release (Adult Low Dose Aspirin) 81 mg PO DAILY HEART HEALTH 02/05/22 [History Last Taken 06/20/23] gabapentin 300 mg capsule 300 mg PO QHS NEUROPATHY 02/05/22 [History Last Taken 06/20/23] oxybutynin chloride 10 mg tablet,extended release 24 hr 20 mg PO DAILY OVERACTIVE BLADDER 02/05/22 [History Last Taken 06/20/23] metoprolol succinate 100 mg tablet,extended release 24 hr 100 mg PO DAILY BLOOD PRESSURE 02/24/22 [History Last Taken 06/20/23] esomeprazole magnesium 40 mg capsule,delayed release (Nexium) 40 mg PO DAILY ACID REFLUX 11/26/22 [History Last Taken 06/20/23] loratadine 10 mg tablet 10 mg PO DAILY PRN ALLERGIES 11/26/22 [History Last Taken Unknown] metformin 500 mg tablet,extended release 24 hr 500 mg PO BREAKFAST DIABETES 11/26/22 [History Last Taken Unknown] pen needle, diabetic 32 gauge x 5/32 (BD Ultra-Fine Tish Pen Needle) #100 ea 11/26/22 [Rx Last Taken Unknown] atorvastatin 20 mg tablet 20 mg PO DAILY CHOLESTEROL 06/21/23 [History Last Taken 06/20/23] fexofenadine 180 mg tablet (Nury Allergy) 180 mg PO BID ALLERGIES 06/21/23 [History Last Taken 06/20/23] metaxalone 800 mg tablet 800 mg PO TID PRN MUSCLE CRAMPS 06/21/23 [History Last Taken Unknown] verapamil 120 mg tablet,extended release 120 mg PO QHS BLOOD PRESSURE 06/21/23 [History Last Taken 06/20/23] oxycodone 5 mg tablet 5 mg PO Q6H PRN PRN Pain Score 6-10 3 days #12 tabs 10/13/23 [Rx Last Taken Unknown] rivaroxaban 10 mg tablet (Xarelto) 10 mg PO DAILY@0600 #30 tabs 10/13/23 [Rx Last Taken Unknown] insulin regular hum U-500 conc 500 unit/mL(3 mL) subcut pen (Humulin R U-500 (Conc) Insulin Kwikpen) See Rx Instructions subcut TIDCM #10.8 mL 11/10/23 [Rx Last Taken Unknown] blood sugar diagnostic (OneTouch Verio test strips) #150 ea 11/15/23 [Rx Last Taken Unknown] nitrofurantoin monohydrate/macrocrystals 100 mg capsule 1 cap PO BID 11/15/23 [History Last Taken Unknown] Allergy/AdvReac Type Severity Reaction Status Date / Time JESENIA Inhibitors Allergy Intermediate Cough Verified 11/17/23 10:45 adhesive tape Allergy Intermediate blisters Verified 11/17/23 10:45 dulaglutide [From Trulicity] Allergy Intermediate Gastropares Verified 11/17/23 10:45 is chondroitin sulfate A Allergy Rash Verified 11/17/23 10:45 [From DuoVisc Visco Elastic] hyaluronic acid Allergy Rash Verified 11/17/23 10:45 [From DuoVisc Visco Elastic] NSAIDS (Non-Steroidal Allergy Other Verified 11/17/23 10:45 Anti-Inflamma Family History Other Alcohol abuse Anxiety Arthritis Asthma defect COPD (chronic obstructive pulmonary disease) Cancer Diabetes High cholesterol Hypertension Seizures Surgical History History of appendectomy History of colonoscopy History of hysterectomy History of left mastectomy History of nasal cauterization Social History Smoking Status: Former smoker alcohol intake: current alcohol intake frequency: 0-2 drinks per day substance use type: does not use what type of physical activity do you participate in: none ROS ROS ED Constitutional Constitutional ED: Denies chills or fever(s) Eyes Eyes: Denies discharge from eye(s) ENT ENT ED: Denies discharge from eye(s), rhinorrhea or sore throat Cardiovascular Cardiovascular: Denies chest pain Respiratory/Chest Respiratory/Chest: Reports cough and dyspnea Gastrointestinal Gastrointestinal: Denies abdominal pain, nausea or vomiting Genitourinary Genitourinary ED: Denies dysuria Musculoskeletal Musculoskeletal: Denies back pain or extremity pain Integumentary Denies Abrasions or rash Neurologic Neurologic: Reports weakness; Denies headache(s) Psychiatric Psychiatric: Denies anxiety or depression Allergic/Immunologic Allergic/Immunologic ED: Denies lip swelling or urticaria EXAM Physical Exam Const Vital Signs: 11/17/23 10:45 11/17/23 10:48 11/17/23 10:57 Temperature 99 F 99 F Temperature Source Temporal Temporal Pulse Rate 125 H 122 H Respiratory Rate 16 16 Respiratory Effort Short of Breath Respiratory Pattern Tachypnea Blood Pressure 174/136 H 172/83 H Blood Pressure Mean 148 112 Pulse Ox 92 92 Oxygen Delivery Method Room Air Room Air Room Air Oxygen Flow Rate (L/min) 11/17/23 11:36 11/17/23 11:36 11/17/23 11:48 Temperature 99.7 F H Temperature Source Temporal Pulse Rate 119 H 119 H Respiratory Rate 34 H 23 H Respiratory Effort Respiratory Pattern Tachypnea Blood Pressure 149/62 H Blood Pressure Mean 91 Pulse Ox 90 92 Oxygen Delivery Method Nasal Cannula Nasal Cannula Oxygen Flow Rate (L/min) 2 3 11/17/23 12:00 11/17/23 11:03 11/17/23 11:15 Temperature 99.7 F H Temperature Source Temporal Pulse Rate 118 H 122 H 122 H Respiratory Rate 26 H 29 H 35 H Respiratory Effort Respiratory Pattern Blood Pressure 145/69 H Blood Pressure Mean 94 Pulse Ox 90 92 91 Oxygen Delivery Method Nasal Cannula Oxygen Flow Rate (L/min) 11/17/23 11:30 11/17/23 11:45 11/17/23 12:00 Temperature Temperature Source Pulse Rate 122 H 120 H 118 H Respiratory Rate 22 H 27 H 37 H Respiratory Effort Respiratory Pattern Blood Pressure 153/63 H 149/62 H 145/65 H Blood Pressure Mean 89 85 85 Pulse Ox 91 90 90 Oxygen Delivery Method Oxygen Flow Rate (L/min) 11/17/23 12:15 11/17/23 12:30 11/17/23 12:45 Temperature Temperature Source Pulse Rate 116 H 115 H 117 H Respiratory Rate 33 H 30 H 17 Respiratory Effort Respiratory Pattern Blood Pressure 147/59 H 140/63 H 145/62 H Blood Pressure Mean 84 84 82 Pulse Ox 90 89 92 Oxygen Delivery Method Oxygen Flow Rate (L/min) 11/17/23 13:00 11/17/23 14:00 Temperature 99.6 F H 97.8 F Temperature Source Temporal Temporal Pulse Rate 108 H 104 H Respiratory Rate 21 H 23 H Respiratory Effort Respiratory Pattern Blood Pressure 128/56 H 135/57 H Blood Pressure Mean 80 83 Pulse Ox 92 92 Oxygen Delivery Method Nasal Cannula Nasal Cannula Oxygen Flow Rate (L/min) 3 3 Positive well nourished and well developed General Appearance ED: well developed HEENT Reports moist mucous membranes Eyes EOMs intact bilaterally Chest Wall inspection of chest normal and palpation of chest normal Resp Resp Narrative: Tachypnea with clear breath sounds bilaterally. Cardio Rate: tachycardic GI non-tender Palpation: soft Extremity Extremity Narrative: Mild lower extremity edema bilaterally. No calf tenderness. Neuro oriented x3 and no sensory deficits noted Psych mental status grossly normal Skin no rashes or lesions noted MDM MDM MDM Narrative Medical decision making narrative: Patient was on satellite project site monitor. IV line established. Labwork obtained to evaluate for leukocytosis, anemia, and electrolyte derangement. Chest x-ray obtained to evaluate for acute lung pathology, cardiac size, or mediastinal abnormality. EKG obtained to evaluate for cardiac arrhythmia/ischemia. Swab for COVID, influenza, and RSV will be obtained. Patient given DuoNeb treatment. History & Record Review Discussion w/independent historian: Patient Additional record(s) reviewed:: Prior labs Lab Data Attestation: I reviewed the patient's lab results. Labs: Laboratory Results - last 24 hr 11/17/23 11:20 WBC 17.1 H RBC 3.44 L Hgb 10.5 L Hct 32.6 L MCV 94.8 MCH 30.5 MCHC 32.2 RDW Std Deviation 46.8 H RDW Coeff of Tom 13.7 Plt Count 269 MPV 8.7 Immature Gran % (Auto) 0.600 Neut % (Auto) 85.2 H Lymph % (Auto) 5.6 L [place] % (Auto) 5.6 Eos % (Auto) 2.5 Baso % (Auto) 0.5 Absolute Neuts (auto) 14.6 H Absolute Lymphs (auto) 0.96 Nucleated RBC % 0 Sodium 138 Potassium 3.8 Chloride 105 Carbon Dioxide 24.0 Anion Gap 9 BUN 16 Creatinine 0.90 Estim Creat Clear Calc 59.01 Est GFR (MDRD) Af Amer 79 Est GFR (MDRD) Non-Af 65 BUN/Creatinine Ratio 17.7 Glucose 162 H Calcium 8.8 Troponin I High Sens 4 B-Natriuretic Peptide 21.1 Radiography Chest X-Ray - ED: 1 View, Read by ED Physician and Chronic Changes Diagnostic Testing: Clinical Impression(s) from Imaging Studies Chest X-Ray 11/17/23 11:26 IMPRESSION: No acute abnormality is seen. Electronically Signed: Jean Rodriguez MD at 12:06 EDT , Chest CTA 11/17/23 13:30 IMPRESSION: No evidence of pulmonary embolism. Findings suggestive of scarring at the lung bases with superimposed atelectasis. Cholelithiasis. Stable 2 cm left adrenal adenoma. Electronically Signed: Jean Rodriguez MD at 14:08 EDT , EKG Initial EKG: Attestation: I personally reviewed and interpreted this EKG as follows: Interpretation: Sinus Tachycardia (Sinus tach at 118. No obvious ischemia.) Treatment and Re-Evaluation :: CBC was a white count of 17.1 with 85% neutrophils. Hemoglobin is 10.5. Chemistry studies are unremarkable. Troponin is normal at 4. BNP is normal at 21. Portable chest x-ray per my interpretation was chronic changes with no focal infiltrate. Radiology interpretation reviewed and agrees. After breathing treatment patient remained significantly tachycardic with heart rates around 120. She did drop her O2 sat and is currently on 3 L nasal cannulasatting 90 to 92%. Due to concern for pulmonary embolism, she was sent for CTA of the chest. CTA revealed some chronic scarring at the bases but no evidence of infiltrate and no PE. Test results discussed with the patient. She will be covered with Levaquin and steroids for COPD exacerbation. She is currently requiring supplemental oxygen and will be discussed with hospitalist for admission. Discharge Plan Triage Chief Complaint: Shortness of Breath ED Provider: [place] Jessica Dx/Rx/DC Orders Clinical Impression: Hypoxia, COPD exacerbation Prescriptions: No Action hydrochlorothiazide 12.5 mg capsule 12.5 mg PO DAILY gabapentin 300 mg capsule 300 mg PO QHS metoprolol succinate 100 mg tablet extended release 24 hr 100 mg PO DAILY oxybutynin chloride 10 mg tablet extended release 24hr 20 mg PO DAILY aspirin [Adult Low Dose Aspirin] 81 mg tablet,delayed release (DR/EC) 81 mg PO DAILY loratadine 10 mg tablet 10 mg PO DAILY PRN (Reason: ALLERGIES ) (DME) pen needle, diabetic [BD Ultra-Fine Tish Pen Needle] 32 gauge x 5/32 needle See Rx Instructions .ROUTE .MEDSUPPLY Qty: 100 5RF Rx Instructions: tid metformin 500 mg tablet extended release 24 hr 500 mg PO BREAKFAST Patient Comments: COUPLE OF WEEKS SINCE LAST TAKEN. PT STATES THEY RAN OUT AND THAT THEY DO NOTLIKE TAKING IT BECAUSE OF ALL THE BAD THINGS THEY HAVE HEARD ABOUT IT nitrofurantoin monohyd/m-cryst 100 mg capsule 1 cap PO BID (DME) OneTouch Verio test strips Strip See Rx Instructions .Route Qty: 150 12RF Rx Instructions: 4 times per day fluticasone propionate 1 SPRAY spray,suspension 1 spray intranasal DAILY PRN (Reason: NASAL CONGESTION ) methotrexate sodium 2.5 MG tablet 20 mg PO TEJADA Hold Instructions: Resume on 06/29/23. Hold until finished with augmentin folic acid 1 mg tablet 2 mg PO DAILY albuterol sulfate [ProAir HFA] 90 mcg/actuation Hfa Aerosol Inhaler 2 puff INHALATION Q4H PRN (Reason: SHORTNESS OF BREATH ) losartan 100 mg tablet 100 mg PO DAILY escitalopram oxalate [Lexapro] 10 mg tablet 10 mg PO DAILY PRN (Reason: DEPRESSION ) Trelegy Ellipta 100-62.5-25 mcg blister with device 1 inh INHALATION DAILY Patient Comments: PT STATES THEY WERE TOLD BY A DOCTOR TO STOP USING THIS TEMPORARILY BECAUSE THEY BELIEVE THE PT MIGHT BE ALLERGIC TO THIS INHALER. esomeprazole magnesium [Nexium] 40 mg capsule,delayed release(DR/EC) 40 mg PO DAILY atorvastatin 20 mg tablet 20 mg PO DAILY verapamil 120 mg tablet extended release 120 mg PO QHS metaxalone 800 mg tablet 800 mg PO TID PRN (Reason: MUSCLE CRAMPS) fexofenadine [Nury Allergy] 180 mg tablet 180 mg PO BID oxycodone 5 mg Tablet 5 mg PO Q6H PRN PRN (Reason: Pain Score 6-10) 3 Days Qty: 12 0RF Xarelto 10 mg Tablet 10 mg PO DAILY@0600 Qty: 30 0RF Humulin R U-500 (Conc) Kwikpen 500 unit/mL (3 mL) insulin pen See Rx Instructions subcut TIDCM Qty: 10.8 5RF Rx Instructions: breakfast- 70 u, lunch 70 u, dinner 40 u subcutaneously 3 times daily with meals Primary Care Provider: Ilir Hernández Referrals: Ilir Hernández MD [Primary Care Provider] - Disposition Disposition: Acute Care Hospital [facility] What to do if you have Problems For any increased pain, shortness of breath, bleeding, nausea or vomiting, chestpain, or any unexpected problems, contact your Primary Care Provider. Call [facility] ([phone]) or report to the closest Emergency Room. Call 911 if necessary. 11/17/23 1602 <Electronically signed by [place] Jessica MD> Cosigner Signature (if applicable): CC: Dr. Ilir Hernández MD ~ Signed [facility] Work Phone: 1(344) 242-982104-04-2024 History and physical note Author Jj Whitfield [facility] November 17, 2023 4:20pm Note Date/Time November 17, 2023 2:44 pm [facility] Medical Records Department [address] [place] [address] H&P Exam - Hospitalist 11/17/23 1439 MR#: [id number] Acct: [id number] Name: MANISHA KEITH Rep #:[id number] : 1950 73 From: Jj Greer PCP: Dr. Ilir Hernández MD Status:ADM I N Location: [place] [address] HPI - General General Date of Admission: 11/17/23 Date of Service: 11/17/23 Chief Complaint: Shortness of breath progressively worsening for 1 month. HPI Narrative MANISHA KEITH, is a 73 F with history of COPD on BiPAP at home but not on oxygen came to ED with progressive worsening of shortness of breath with productive cough and URI symptoms for about 1 month. Patient states she had pneumonia about 3 months ago and then completed 1 round of antibiotic by PCP. For last month she is having shortness of breath, wheezing dyspnea on mild exertion progressing to rest, cough with thick sputum production. She also complained that right ear feels blocked or feeling. Complain of chills and shivering but no fever or diaphoresis. She has mild chest congestion but denies chest pressure pain. Denies history ofCAD/CHF or A-fib There. Prior to that patient had left hip fracture in September 2023 and was admitted here. In ED, patient was found tachypneic, BP high 124/136, tachycardic pulse ox 90% on 2 L of oxygen. Patient was given DuoNeb and IV Solu-Medrol. Imaging was done and discussed in details with the plan. [facility] Medical History Allergic rhinitis Anxiety Arthritis Asthma Back problem Breast cancer Breast lump Calcium deficiency Cancer Cardiology follow-up encounter Carpal tunnel syndrome Cataract Chronic bronchitis Chronic cough Closed left hip fracture COPD (chronic obstructive pulmonary disease) Diabetes mellitus, type II Dietary restriction Diverticulosis Easy bruising Essential hypertension Former smoker Gall stone Gastrointestinal problem GERD (gastroesophageal reflux disease) History of cervical cancer History of Clostridium difficile infection History of edema History of gastrostomy tube placement History of Holter monitoring History of stress test History of vaginal delivery Hives IBS (irritable bowel syndrome) Inflammatory polyarthritis Injury of head and neck Internal hemorrhoids Leg cramps Loss of consciousness MSSA (methicillin susceptible Staphylococcus aureus) pneumonia Neuropathy OAB (overactive bladder) Obesity Osteoarthritis Osteoporosis Pancreatitis Recurrent infections Restless legs Rhabdomyolysis (04/2017) Seasonal allergies Shortness of breath on exertion Sleep apnea Urinary incontinence UTI (urinary tract infection) Vision problems Wears dentures Wears glasses Home Medications fluticasone propionate 50 mcg/actuation nasal spray,suspension 1 spray intranasal DAILY PRN NASAL CONGESTION 01/30/14 [History Last Taken 06/20/23] methotrexate sodium 2.5 mg tablet 20 mg PO TEJADA BREAST CANCER 04/16/17 [History Last Taken 06/19/23] albuterol sulfate 90 mcg/actuation aerosol inhaler (ProAir HFA) 2 puff inhalation Q4H PRN SHORTNESS OF BREATH 06/05/21 [History Last Taken Unknown] escitalopram oxalate 10 mg tablet (Lexapro) 10 mg PO DAILY PRN DEPRESSION 06/05/21 [History Last Taken 1 Week Ago ~05/29/21] fluticasone fur. 100 mcg-umeclid 62.5 mcg-vilant 25 mcg inhalat.powder (Trelegy Ellipta) 1 inh inhalation DAILY SHORTNESS OF BREATH 06/05/21 [History Last Taken 1 Week Ago ~05/29/21] folic acid 1 mg tablet 2 mg PO DAILY SUPPLEMENT 06/05/21 [History Last Taken 06/20/23] hydrochlorothiazide 12.5 mg capsule 12.5 mg PO DAILY BLOOD PRESSURE 06/05/21 [History Last Taken 06/20/23] losartan 100 mg tablet 100 mg PO DAILY BLOOD PRESSURE 06/05/21 [History Last Taken 06/20/23] aspirin 81 mg tablet,delayed release (Adult Low Dose Aspirin) 81 mg PO DAILY HEART HEALTH 02/05/22 [History Last Taken 06/20/23] gabapentin 300 mg capsule 300 mg PO QHS NEUROPATHY 02/05/22 [History Last Taken 06/20/23] oxybutynin chloride 10 mg tablet,extended release 24 hr 20 mg PO DAILY OVERACTIVE BLADDER 02/05/22 [History Last Taken 06/20/23] metoprolol succinate 100 mg tablet,extended release 24 hr 100 mg PO DAILY BLOOD PRESSURE 02/24/22 [History Last Taken 06/20/23] esomeprazole magnesium 40 mg capsule,delayed release (Nexium) 40 mg PO DAILY ACID REFLUX 11/26/22 [History Last Taken 06/20/23] loratadine 10 mg tablet 10 mg PO DAILY PRN ALLERGIES 11/26/22 [History Last Taken Unknown] metformin 500 mg tablet,extended release 24 hr 500 mg PO BREAKFAST DIABETES 11/26/22 [History Last Taken Unknown] pen needle, diabetic 32 gauge x 5/32 (BD Ultra-Fine Tish Pen Needle) #100 ea 11/26/22 [Rx Last Taken Unknown] atorvastatin 20 mg tablet 20 mg PO DAILY CHOLESTEROL 06/21/23 [History Last Taken 06/20/23] fexofenadine 180 mg tablet (Nury Allergy) 180 mg PO BID ALLERGIES 06/21/23 [History Last Taken 06/20/23] metaxalone 800 mg tablet 800 mg PO TID PRN MUSCLE CRAMPS 06/21/23 [History Last Taken Unknown] verapamil 120 mg tablet,extended release 120 mg PO QHS BLOOD PRESSURE 06/21/23 [History Last Taken 06/20/23] oxycodone 5 mg tablet 5 mg PO Q6H PRN PRN Pain Score 6-10 3 days #12 tabs 10/13/23 [Rx Last Taken Unknown] rivaroxaban 10 mg tablet (Xarelto) 10 mg PO DAILY@0600 #30 tabs 10/13/23 [Rx Last Taken Unknown] insulin regular hum U-500 conc 500 unit/mL(3 mL) subcut pen (Humulin R U-500 (Conc) Insulin Kwikpen) See Rx Instructions subcut TIDCM #10.8 mL 11/10/23 [Rx Last Taken Unknown] blood sugar diagnostic (DesallTouch Verio test strips) #150 ea 11/15/23 [Rx Last Taken Unknown] nitrofurantoin monohydrate/macrocrystals 100 mg capsule 1 cap PO BID 11/15/23 [History Last Taken Unknown] Allergy/AdvReac Type Severity Reaction Status Date / Time JESENIA Inhibitors Allergy Intermediate Cough Verified 11/17/23 10:45 adhesive tape Allergy Intermediate blisters Verified 11/17/23 10:45 dulaglutide [[facility]] Allergy Intermediate Gastropares Verified 11/17/23 10:45 is chondroitin sulfate A Allergy Rash Verified 11/17/23 10:45 [From DuoVisc Visco Elastic] hyaluronic acid Allergy Rash Verified 11/17/23 10:45 [From DuoVisc Visco Elastic] NSAIDS (Non-Steroidal Allergy Other Verified 11/17/23 10:45 Anti-Inflamma Family History Other Alcohol abuse Anxiety Arthritis Asthma defect COPD (chronic obstructive pulmonary disease) Cancer Diabetes High cholesterol Hypertension Seizures Surgical History History of appendectomy History of colonoscopy History of hysterectomy History of left mastectomy History of nasal cauterization Social History Smoking Status: Former smoker alcohol intake: current alcohol intake frequency: 0-2 drinks per day substance use type: does not use what type of physical activity do you participate in: none ROS ROS Narrative Constitutional: Reports fatigue and weakness. No fever. HEENT: Reports systems reviewed and no addt'l complaints, except as documented Respiratory/Chest: As described in HPI. CVS: No chest pressure or pain. Gastrointestinal: Denies coffee ground emesis, hematemesis or vomiting Genitourinary: Denies burning micturition. Was found to have bacteriuria, increased frequency, mild suprapubic pressure and started on antibiotic by PCP. 4 more days of antibiotic left Musculoskeletal: Denies acute joint pain or limited range of motion. No acute injury Neurologic: Denies seizure-like symptoms. skin: No ulcer. No rash Endocrinology: Reports systems reviewed and no addt'l complaints, except as documented Hematologic/Lymphatic: Reports systems reviewed and no addt'l complaints, exceptas documented Rest 14 ROS are negative except as mentioned in HPI Vital Signs Vital Signs Vital Signs: 11/17/23 10:45 11/17/23 10:48 11/17/23 10:57 Temperature 99 F 99 F Temperature Source Temporal Temporal Pulse Rate 125 H 122 H Respiratory Rate 16 16 Respiratory Effort Short of Breath Respiratory Pattern Tachypnea Blood Pressure 174/136 H 172/83 H Blood Pressure Mean 148 112 Pulse Ox 92 92 Oxygen Delivery Method Room Air Room Air Room Air Oxygen Flow Rate (L/min) 11/17/23 11:36 11/17/23 11:36 11/17/23 11:48 Temperature 99.7 F H Temperature Source Temporal Pulse Rate 119 H 119 H Respiratory Rate 34 H 23 H Respiratory Effort Respiratory Pattern Tachypnea Blood Pressure 149/62 H Blood Pressure Mean 91 Pulse Ox 90 92 Oxygen Delivery Method Nasal Cannula Nasal Cannula Oxygen Flow Rate (L/min) 2 3 11/17/23 12:00 11/17/23 11:03 11/17/23 11:15 Temperature 99.7 F H Temperature Source Temporal Pulse Rate 118 H 122 H 122 H Respiratory Rate 26 H 29 H 35 H Respiratory Effort Respiratory Pattern Blood Pressure 145/69 H Blood Pressure Mean 94 Pulse Ox 90 92 91 Oxygen Delivery Method Nasal Cannula Oxygen Flow Rate (L/min) 11/17/23 11:30 11/17/23 11:45 11/17/23 12:00 Temperature Temperature Source Pulse Rate 122 H 120 H 118 H Respiratory Rate 22 H 27 H 37 H Respiratory Effort Respiratory Pattern Blood Pressure 153/63 H 149/62 H 145/65 H Blood Pressure Mean 89 85 85 Pulse Ox 91 90 90 Oxygen Delivery Method Oxygen Flow Rate (L/min) 11/17/23 12:15 11/17/23 12:30 11/17/23 12:45 Temperature Temperature Source Pulse Rate 116 H 115 H 117 H Respiratory Rate 33 H 30 H 17 Respiratory Effort Respiratory Pattern Blood Pressure 147/59 H 140/63 H 145/62 H Blood Pressure Mean 84 84 82 Pulse Ox 90 89 92 Oxygen Delivery Method Oxygen Flow Rate (L/min) 11/17/23 13:00 11/17/23 14:00 Temperature 99.6 F H 97.8 F Temperature Source Temporal Temporal Pulse Rate 108 H 104 H Respiratory Rate 21 H 23 H Respiratory Effort Respiratory Pattern Blood Pressure 128/56 H 135/57 H Blood Pressure Mean 80 83 Pulse Ox 92 92 Oxygen Delivery Method Nasal Cannula Nasal Cannula Oxygen Flow Rate (L/min) 3 3 Weight Weight: 201 lb 4.8 oz Body Mass Index (BMI) 38.0 Physical Exam Narrative General: Alert, Oriented x3, Cooperative HEENT: Right ear, TM retracted. TM not clearly visualized but no obvious perforation. Left ear mild wax. Atraumatic, PERRLA, EOMI, Normocephalic Oral: Oral mucosa dry. No Gingival or Mucosal Lesions/ Ulcerations Neck: Supple, No JVD, Negative Carotid Bruits Chest wall/Lungs: Air entry diminished in bilateral lung bases. Expiratory phase prolonged, bilateral wheezing. Mild hypoxia and tachypnea. Cardiovascular: Sinus tachycardia, Normal S1, Normal S2, No M/G/R Abdomen: Bowel Sounds Present, Soft, Non Tender, Non-Distended : No dysuria. No renal angle tenderness. No suprapubic tenderness. Extremities: No edema, Capillary Refill Less than 3 Seconds Skin: No rashes, No breakdown Musculoskeletal: No Tenderness to Palpation of Joints or Extremities Neurological: Cranial nerves II-XII grossly intact, DTR 2+/4. No acute focal neurological deficit. Psych/Mental Status: Flat affect Results Lab / Micro Data 11/17/23 11:20 11/17/23 11:20 Labs: Laboratory Results - last 24 hr 11/17/23 11:20: WBC 17.1 H, RBC 3.44 L, Hgb 10.5 L, Hct 32.6 L, MCV 94.8, MCH 30.5, MCHC 32.2, RDW Std Deviation 46.8 H, RDW Coeff of Tom 13.7, Plt Count 269,MPV 8.7, Immature Gran % (Auto) 0.600, Neut % (Auto) 85.2 H, Lymph % (Auto) 5.6 L, [place] % (Auto) 5.6, Eos % (Auto) 2.5, Baso % (Auto) 0.5, Absolute Neuts (auto)14.6 H, Absolute Lymphs (auto) 0.96, Nucleated RBC % 0, Sodium 138, Potassium 3.8, Chloride 105, Carbon Dioxide 24.0, Anion Gap 9, BUN 16, Creatinine 0.90, Estim Creat Clear Calc 59.01, Est GFR (MDRD) Af Amer 79, Est GFR (MDRD) Non-Af 65, BUN/Creatinine Ratio 17.7, Glucose 162 H, Calcium 8.8, Troponin I High Sens 4, B-Natriuretic Peptide 21.1 Micro: Microbiology 11/17/23 11:25 Mucosa - Nasopharyngeal SARS-CoV-2, Influenza & RSV (PCR) - Final Imaging Radiology Impression Chest X-Ray 11/17/23 11:26 IMPRESSION: No acute abnormality is seen. Electronically Signed: Jean Rodriguez MD at 12:06 EDT , Chest CTA 11/17/23 13:30 IMPRESSION: No evidence of pulmonary embolism. Findings suggestive of scarring at the lung bases with superimposed atelectasis. Cholelithiasis. Stable 2 cm left adrenal adenoma. Electronically Signed: Jean Rodriguez MD at 14:08 EDT , Assessment & Plan Assessment/Plan (1) COPD with acute exacerbation: (2) Hypoxia: PLAN: Plan This 72-year-old female being admitted for progressive worsening shortness of breath cough with thick productive sputum and URI symptoms history of COPD exacerbation. 1. COPD exacerbation with mild hypoxia: Patient is being admitted on MedSur floor. ABG was done which shows 7.4 on 2 L of oxygen through nasal cannula. Patient states she uses BiPAP at night and follows Dr. Sophia Alvares [facility]. Patient is being managed on scheduled bronchodilator, IV Solu-Medrol, Mucinex, incentive spirometry and Pep. Chest x-ray and CT head done which did not show acute infiltrate but is scarring at the lung bases with atelectasis. No PE. 2. Sinus tachycardia: Patient tachycardic on the monitor. Heart rate 128/min close to 140s. Denies history of PE or arrhythmia in the past, probably driven by COPD exacerbation. 1 dose of metoprolol 5 mg IV given. Current heart rate 82/min. 3. Recent comminuted left hip fracture due to mechanical fall patient was admitted between 10/11 to 10/13/2023 for hip fracture. She was discharged to SNF and then to home. PT and OT ordered. 4. Diabetes mellitus type 2 with mild hyperglycemia: Glucose in BMP is 162. Accu-Chek insulin cover with block sliding scale. 5. Dyslipidemia: On statin 6. Benign essential hypertension: BP was high systolic 172. Most recent 134/49. Continue home medication hydrochlorothiazide and losartan. Also on verapamil and metoprolol. 7. Depression: On Lexapro DVT prophylaxis: On Xarelto 10 mg daily. Living will/advanced directive/end of life care: Patient does have living will or advanced directive. Her daughter is power of insurance defense attorney for health. After discussion of benefits/risks procedures involved with full code, DNR CC arrest and DNR CC, the patient opted for full code. Patient does want artificial life support including intubation, tube feed, ventilator and/chest compression, central venous catheter, vasopressor and DC shock if needed Total time spent in [id number] encounter in discussion of advanced directive 17 minutes. Microbiology Past 72 Hours 11/17/23 11:25 Mucosa - Nasopharyngeal SARS-CoV-2, Influenza & RSV (PCR) - Final Laboratory Results 11/17/23 11:20: WBC 17.1 H, RBC 3.44 L, Hgb 10.5 L, Hct 32.6 L, MCV 94.8, MCH 30.5, MCHC 32.2, RDW Std Deviation 46.8 H, RDW Coeff of Tom 13.7, Plt Count 269,MPV 8.7, Immature Gran % (Auto) 0.600, Neut % (Auto) 85.2 H, Lymph % (Auto) 5.6 L, [place] % (Auto) 5.6, Eos % (Auto) 2.5, Baso % (Auto) 0.5, Absolute Neuts (auto)14.6 H, Absolute Lymphs (auto) 0.96, Nucleated RBC % 0, Sodium 138, Potassium 3.8, Chloride 105, Carbon Dioxide 24.0, Anion Gap 9, BUN 16, Creatinine 0.90, Estim Creat Clear Calc 59.01, Est GFR (MDRD) Af Amer 79, Est GFR (MDRD) Non-Af 65, BUN/Creatinine Ratio 17.7, Glucose 162 H, Calcium 8.8,Troponin I High Sens 4, B-Natriuretic Peptide 21.1 Clinical Impression(s) from Imaging Studies Chest X-Ray 11/17/23 11:26 IMPRESSION: No acute abnormality is seen. Chest CTA 11/17/23 13:30 IMPRESSION: No evidence of pulmonary embolism. Findings suggestive of scarring at the lung bases with superimposed atelectasis. Cholelithiasis. Stable 2 cm left adrenal adenoma. Charges/Coding Visit Charges Inpatient E&M: 55219 Init Hosp L3 Procedures Hospitalists Procedures: 62296 Advncd Care Plan 30 Min 11/17/23 1620 <Electronically signed by Jj Whitfield MD> Cosigner Signature (if applicable): CC: Dr. Jj Whitfield MD; Dr. Ilir Hernández MD~ Signed [facility] Work Phone: [phone] Discharge summary Author [place] Jessica [facility] November 17, 2023 4:02pm Note Date/Time November 17, 2023 11:2 4am [facility] Medical Records Department [address] [place] [address] Emergency Department Summary 11/17/23 MR#: [id number] Acct: [id number] Name: MANISHA KEITH Rep #:[id number] : 1950 73 From: [place] Jessica MD PCP: Dr. Ilir Hernández MD Status:ADM I N Location: [place] [address] HPI History of Present Illness Chief Complaint: Shortness of Breath Informant: patient Onset/Context/Timing Onset: Days Narrative Narrative: Patient presents secondary to shortness of breath with cough and chills. Patient is currently receiving home health after a hip fracture and surgery in October. Home health nurse today noted that her cough was more moist than normal,her heart rate was elevated in the 120s, and her pulse ox was 85% on room air. Patient does have a history of COPD and asthma. She states that she is currently staying with her daughter and only has one of her 2 inhalers with her. She is currently on Macrobid for a UTI. She does have increased lower extremity edema. She is currently on Xarelto. [facility] Medical History (Updated 11/17/23 @ 14:[address] [place] Jessica MD) Allergic rhinitis Anxiety Arthritis Asthma Back problem Breast cancer Breast lump Calcium deficiency Cancer Cardiology follow-up encounter Carpal tunnel syndrome Cataract Chronic bronchitis Chronic cough Closed left hip fracture COPD (chronic obstructive pulmonary disease) Diabetes mellitus, type II Dietary restriction Diverticulosis Easy bruising Essential hypertension Former smoker Gall stone Gastrointestinal problem GERD (gastroesophageal reflux disease) History of cervical cancer History of Clostridium difficile infection History of edema History of gastrostomy tube placement History of Holter monitoring History of stress test History of vaginal delivery Hives IBS (irritable bowel syndrome) Inflammatory polyarthritis Injury of head and neck Internal hemorrhoids Leg cramps Loss of consciousness MSSA (methicillin susceptible Staphylococcus aureus) pneumonia Neuropathy OAB (overactive bladder) Obesity Osteoarthritis Osteoporosis Pancreatitis Recurrent infections Restless legs Rhabdomyolysis (04/2017) Seasonal allergies Shortness of breath on exertion Sleep apnea Urinary incontinence UTI (urinary tract infection) Vision problems Wears dentures Wears glasses Home Medications fluticasone propionate 50 mcg/actuation nasal spray,suspension 1 spray intranasal DAILY PRN NASAL CONGESTION 01/30/14 [History Last Taken 06/20/23] methotrexate sodium 2.5 mg tablet 20 mg PO TEJADA BREAST CANCER 04/16/17 [History Last Taken 06/19/23] albuterol sulfate 90 mcg/actuation aerosol inhaler (ProAir HFA) 2 puff inhalation Q4H PRN SHORTNESS OF BREATH 06/05/21 [History Last Taken Unknown] escitalopram oxalate 10 mg tablet (Lexapro) 10 mg PO DAILY PRN DEPRESSION 06/05/21 [History Last Taken 1 Week Ago ~05/29/21] fluticasone fur. 100 mcg-umeclid 62.5 mcg-vilant 25 mcg inhalat.powder (Trelegy Ellipta) 1 inh inhalation DAILY SHORTNESS OF BREATH 06/05/21 [History Last Taken 1 Week Ago ~05/29/21] folic acid 1 mg tablet 2 mg PO DAILY SUPPLEMENT 06/05/21 [History Last Taken 06/20/23] hydrochlorothiazide 12.5 mg capsule 12.5 mg PO DAILY BLOOD PRESSURE 06/05/21 [History Last Taken 06/20/23] losartan 100 mg tablet 100 mg PO DAILY BLOOD PRESSURE 06/05/21 [History Last Taken 06/20/23] aspirin 81 mg tablet,delayed release (Adult Low Dose Aspirin) 81 mg PO DAILY HEART HEALTH 02/05/22 [History Last Taken 06/20/23] gabapentin 300 mg capsule 300 mg PO QHS NEUROPATHY 02/05/22 [History Last Taken 06/20/23] oxybutynin chloride 10 mg tablet,extended release 24 hr 20 mg PO DAILY OVERACTIVE BLADDER 02/05/22 [History Last Taken 06/20/23] metoprolol succinate 100 mg tablet,extended release 24 hr 100 mg PO DAILY BLOOD PRESSURE 02/24/22 [History Last Taken 06/20/23] esomeprazole magnesium 40 mg capsule,delayed release (Nexium) 40 mg PO DAILY ACID REFLUX 11/26/22 [History Last Taken 06/20/23] loratadine 10 mg tablet 10 mg PO DAILY PRN ALLERGIES 11/26/22 [History Last Taken Unknown] metformin 500 mg tablet,extended release 24 hr 500 mg PO BREAKFAST DIABETES 11/26/22 [History Last Taken Unknown] pen needle, diabetic 32 gauge x 5/32 (BD Ultra-Fine Tish Pen Needle) #100 ea 11/26/22 [Rx Last Taken Unknown] atorvastatin 20 mg tablet 20 mg PO DAILY CHOLESTEROL 06/21/23 [History Last Taken 06/20/23] fexofenadine 180 mg tablet (Nury Allergy) 180 mg PO BID ALLERGIES 06/21/23 [History Last Taken 06/20/23] metaxalone 800 mg tablet 800 mg PO TID PRN MUSCLE CRAMPS 06/21/23 [History Last Taken Unknown] verapamil 120 mg tablet,extended release 120 mg PO QHS BLOOD PRESSURE 06/21/23 [History Last Taken 06/20/23] oxycodone 5 mg tablet 5 mg PO Q6H PRN PRN Pain Score 6-10 3 days #12 tabs 10/13/23 [Rx Last Taken Unknown] rivaroxaban 10 mg tablet (Xarelto) 10 mg PO DAILY@0600 #30 tabs 10/13/23 [Rx Last Taken Unknown] insulin regular hum U-500 conc 500 unit/mL(3 mL) subcut pen (Humulin R U-500 (Conc) Insulin Kwikpen) See Rx Instructions subcut TIDCM #10.8 mL 11/10/23 [Rx Last Taken Unknown] blood sugar diagnostic (OneTouch Verio test strips) #150 ea 11/15/23 [Rx Last Taken Unknown] nitrofurantoin monohydrate/macrocrystals 100 mg capsule 1 cap PO BID 11/15/23 [History Last Taken Unknown] Allergy/AdvReac Type Severity Reaction Status Date / Time JESENIA Inhibitors Allergy Intermediate Cough Verified 11/17/23 10:45 adhesive tape Allergy Intermediate blisters Verified 11/17/23 10:45 dulaglutide [From Trulicity] Allergy Intermediate Gastropares Verified 11/17/23 10:45 is chondroitin sulfate A Allergy Rash Verified 11/17/23 10:45 [From DuoVisc Visco Elastic] hyaluronic acid Allergy Rash Verified 11/17/23 10:45 [From DuoVisc Visco Elastic] NSAIDS (Non-Steroidal Allergy Other Verified 11/17/23 10:45 Anti-Inflamma Family History Other Alcohol abuse Anxiety Arthritis Asthma defect COPD (chronic obstructive pulmonary disease) Cancer Diabetes High cholesterol Hypertension Seizures Surgical History History of appendectomy History of colonoscopy History of hysterectomy History of left mastectomy History of nasal cauterization Social History Smoking Status: Former smoker alcohol intake: current alcohol intake frequency: 0-2 drinks per day substance use type: does not use what type of physical activity do you participate in: none ROS ROS ED Constitutional Constitutional ED: Denies chills or fever(s) Eyes Eyes: Denies discharge from eye(s) ENT ENT ED: Denies discharge from eye(s), rhinorrhea or sore throat Cardiovascular Cardiovascular: Denies chest pain Respiratory/Chest Respiratory/Chest: Reports cough and dyspnea Gastrointestinal Gastrointestinal: Denies abdominal pain, nausea or vomiting Genitourinary Genitourinary ED: Denies dysuria Musculoskeletal Musculoskeletal: Denies back pain or extremity pain Integumentary Denies Abrasions or rash Neurologic Neurologic: Reports weakness; Denies headache(s) Psychiatric Psychiatric: Denies anxiety or depression Allergic/Immunologic Allergic/Immunologic ED: Denies lip swelling or urticaria EXAM Physical Exam Const Vital Signs: 11/17/23 10:45 11/17/23 10:48 11/17/23 10:57 Temperature 99 F 99 F Temperature Source Temporal Temporal Pulse Rate 125 H 122 H Respiratory Rate 16 16 Respiratory Effort Short of Breath Respiratory Pattern Tachypnea Blood Pressure 174/136 H 172/83 H Blood Pressure Mean 148 112 Pulse Ox 92 92 Oxygen Delivery Method Room Air Room Air Room Air Oxygen Flow Rate (L/min) 11/17/23 11:36 11/17/23 11:36 11/17/23 11:48 Temperature 99.7 F H Temperature Source Temporal Pulse Rate 119 H 119 H Respiratory Rate 34 H 23 H Respiratory Effort Respiratory Pattern Tachypnea Blood Pressure 149/62 H Blood Pressure Mean 91 Pulse Ox 90 92 Oxygen Delivery Method Nasal Cannula Nasal Cannula Oxygen Flow Rate (L/min) 2 3 11/17/23 12:00 11/17/23 11:03 11/17/23 11:15 Temperature 99.7 F H Temperature Source Temporal Pulse Rate 118 H 122 H 122 H Respiratory Rate 26 H 29 H 35 H Respiratory Effort Respiratory Pattern Blood Pressure 145/69 H Blood Pressure Mean 94 Pulse Ox 90 92 91 Oxygen Delivery Method Nasal Cannula Oxygen Flow Rate (L/min) 11/17/23 11:30 11/17/23 11:45 11/17/23 12:00 Temperature Temperature Source Pulse Rate 122 H 120 H 118 H Respiratory Rate 22 H 27 H 37 H Respiratory Effort Respiratory Pattern Blood Pressure 153/63 H 149/62 H 145/65 H Blood Pressure Mean 89 85 85 Pulse Ox 91 90 90 Oxygen Delivery Method Oxygen Flow Rate (L/min) 11/17/23 12:15 11/17/23 12:30 11/17/23 12:45 Temperature Temperature Source Pulse Rate 116 H 115 H 117 H Respiratory Rate 33 H 30 H 17 Respiratory Effort Respiratory Pattern Blood Pressure 147/59 H 140/63 H 145/62 H Blood Pressure Mean 84 84 82 Pulse Ox 90 89 92 Oxygen Delivery Method Oxygen Flow Rate (L/min) 11/17/23 13:00 11/17/23 14:00 Temperature 99.6 F H 97.8 F Temperature Source Temporal Temporal Pulse Rate 108 H 104 H Respiratory Rate 21 H 23 H Respiratory Effort Respiratory Pattern Blood Pressure 128/56 H 135/57 H Blood Pressure Mean 80 83 Pulse Ox 92 92 Oxygen Delivery Method Nasal Cannula Nasal Cannula Oxygen Flow Rate (L/min) 3 3 Positive well nourished and well developed General Appearance ED: well developed HEENT Reports moist mucous membranes Eyes EOMs intact bilaterally Chest Wall inspection of chest normal and palpation of chest normal Resp Resp Narrative: Tachypnea with clear breath sounds bilaterally. Cardio Rate: tachycardic GI non-tender Palpation: soft Extremity Extremity Narrative: Mild lower extremity edema bilaterally. No calf tenderness. Neuro oriented x3 and no sensory deficits noted Psych mental status grossly normal Skin no rashes or lesions noted MDM MDM MDM Narrative Medical decision making narrative: Patient was on satellite project site monitor. IV line established. Labwork obtained to evaluate for leukocytosis, anemia, and electrolyte derangement. Chest x-ray obtained to evaluate for acute lung pathology, cardiac size, or mediastinal abnormality. EKG obtained to evaluate for cardiac arrhythmia/ischemia. Swab for COVID, influenza, and RSV will be obtained. Patient given DuoNeb treatment. History & Record Review Discussion w/independent historian: Patient Additional record(s) reviewed:: Prior labs Lab Data Attestation: I reviewed the patient's lab results. Labs: Laboratory Results - last 24 hr 11/17/23 11:20 WBC 17.1 H RBC 3.44 L Hgb 10.5 L Hct 32.6 L MCV 94.8 MCH 30.5 MCHC 32.2 RDW Std Deviation 46.8 H RDW Coeff of Tom 13.7 Plt Count 269 MPV 8.7 Immature Gran % (Auto) 0.600 Neut % (Auto) 85.2 H Lymph % (Auto) 5.6 L [place] % (Auto) 5.6 Eos % (Auto) 2.5 Baso % (Auto) 0.5 Absolute Neuts (auto) 14.6 H Absolute Lymphs (auto) 0.96 Nucleated RBC % 0 Sodium 138 Potassium 3.8 Chloride 105 Carbon Dioxide 24.0 Anion Gap 9 BUN 16 Creatinine 0.90 Estim Creat Clear Calc 59.01 Est GFR (MDRD) Af Amer 79 Est GFR (MDRD) Non-Af 65 BUN/Creatinine Ratio 17.7 Glucose 162 H Calcium 8.8 Troponin I High Sens 4 B-Natriuretic Peptide 21.1 Radiography Chest X-Ray - ED: 1 View, Read by ED Physician and Chronic Changes Diagnostic Testing: Clinical Impression(s) from Imaging Studies Chest X-Ray 11/17/23 11:26 IMPRESSION: No acute abnormality is seen. Electronically Signed: Jean Rodriguez MD at 12:06 EDT , Chest CTA 11/17/23 13:30 IMPRESSION: No evidence of pulmonary embolism. Findings suggestive of scarring at the lung bases with superimposed atelectasis. Cholelithiasis. Stable 2 cm left adrenal adenoma. Electronically Signed: Jean Rodriguez MD at 14:08 EDT , EKG Initial EKG: Attestation: I personally reviewed and interpreted this EKG as follows: Interpretation: Sinus Tachycardia (Sinus tach at 118. No obvious ischemia.) Treatment and Re-Evaluation :: CBC was a white count of 17.1 with 85% neutrophils. Hemoglobin is 10.5. Chemistry studies are unremarkable. Troponin is normal at 4. BNP is normal at 21. Portable chest x-ray per my interpretation was chronic changes with no focal infiltrate. Radiology interpretation reviewed and agrees. After breathing treatment patient remained significantly tachycardic with heart rates around 120. She did drop her O2 sat and is currently on 3 L nasal cannulasatting 90 to 92%. Due to concern for pulmonary embolism, she was sent for CTA of the chest. CTA revealed some chronic scarring at the bases but no evidence of infiltrate and no PE. Test results discussed with the patient. She will be covered with Levaquin and steroids for COPD exacerbation. She is currently requiring supplemental oxygen and will be discussed with hospitalist for admission. Discharge Plan Triage Chief Complaint: Shortness of Breath ED Provider: [place] Jessica Dx/Rx/DC Orders Clinical Impression: Hypoxia, COPD exacerbation Prescriptions: No Action hydrochlorothiazide 12.5 mg capsule 12.5 mg PO DAILY gabapentin 300 mg capsule 300 mg PO QHS metoprolol succinate 100 mg tablet extended release 24 hr 100 mg PO DAILY oxybutynin chloride 10 mg tablet extended release 24hr 20 mg PO DAILY aspirin [Adult Low Dose Aspirin] 81 mg tablet,delayed release (DR/EC) 81 mg PO DAILY loratadine 10 mg tablet 10 mg PO DAILY PRN (Reason: ALLERGIES ) (DME) pen needle, diabetic [BD Ultra-Fine Tish Pen Needle] 32 gauge x 5/32 needle See Rx Instructions .ROUTE .MEDSUPPLY Qty: 100 5RF Rx Instructions: tid metformin 500 mg tablet extended release 24 hr 500 mg PO BREAKFAST Patient Comments: COUPLE OF WEEKS SINCE LAST TAKEN. PT STATES THEY RAN OUT AND THAT THEY DO NOTLIKE TAKING IT BECAUSE OF ALL THE BAD THINGS THEY HAVE HEARD ABOUT IT nitrofurantoin monohyd/m-cryst 100 mg capsule 1 cap PO BID (DME) OneTouch Verio test strips Strip See Rx Instructions .Route Qty: 150 12RF Rx Instructions: 4 times per day fluticasone propionate 1 SPRAY spray,suspension 1 spray intranasal DAILY PRN (Reason: NASAL CONGESTION ) methotrexate sodium 2.5 MG tablet 20 mg PO TEJADA Hold Instructions: Resume on 06/29/23. Hold until finished with augmentin folic acid 1 mg tablet 2 mg PO DAILY albuterol sulfate [ProAir HFA] 90 mcg/actuation Hfa Aerosol Inhaler 2 puff INHALATION Q4H PRN (Reason: SHORTNESS OF BREATH ) losartan 100 mg tablet 100 mg PO DAILY escitalopram oxalate [Lexapro] 10 mg tablet 10 mg PO DAILY PRN (Reason: DEPRESSION ) Trelegy Ellipta 100-62.5-25 mcg blister with device 1 inh INHALATION DAILY Patient Comments: PT STATES THEY WERE TOLD BY A DOCTOR TO STOP USING THIS TEMPORARILY BECAUSE THEY BELIEVE THE PT MIGHT BE ALLERGIC TO THIS INHALER. esomeprazole magnesium [Nexium] 40 mg capsule,delayed release(DR/EC) 40 mg PO DAILY atorvastatin 20 mg tablet 20 mg PO DAILY verapamil 120 mg tablet extended release 120 mg PO QHS metaxalone 800 mg tablet 800 mg PO TID PRN (Reason: MUSCLE CRAMPS) fexofenadine [Nury Allergy] 180 mg tablet 180 mg PO BID oxycodone 5 mg Tablet 5 mg PO Q6H PRN PRN (Reason: Pain Score 6-10) 3 Days Qty: 12 0RF Xarelto 10 mg Tablet 10 mg PO DAILY@0600 Qty: 30 0RF Humulin R U-500 (Conc) Kwikpen 500 unit/mL (3 mL) insulin pen See Rx Instructions subcut TIDCM Qty: 10.8 5RF Rx Instructions: breakfast- 70 u, lunch 70 u, dinner 40 u subcutaneously 3 times daily with meals Primary Care Provider: Ilir Hernández Referrals: Ilir Hernández MD [Primary Care Provider] - Disposition Disposition: Acute Care Hospital [facility] What to do if you have Problems For any increased pain, shortness of breath, bleeding, nausea or vomiting, chestpain, or any unexpected problems, contact your Primary Care Provider. Call [facility] ([phone]) or report to the closest Emergency Room. Call 911 if necessary. 11/17/23 1602 <Electronically signed by [place] Jessica MD> Cosigner Signature (if applicable): CC: Dr. Ilir Hernández MD ~ Signed [facility] Work Phone: [phone]) 718-888804-04-2024 Miscellaneous Notes* Telephone Encounter - Ilir Hernández MD - 11/17/2023 8:51 AM EDT agree * Telephone Encounter - Gertrudis Newman RN - 11/17/2023 8:46 AM EDT Gertrudis MEDINA from [facility] calls to report that patient has not been feeling well. Patient has been complaining of an ear ache in right ear. Lungs are currently clear however patient has a moist cough and O2 levels are anywhere from 85-91. Patient's normal O2 level is 95. BP 170/70 P 123 T 99.2. Patient has been complaining of chills. Patient's blood sugars have been not consistent. Last night BS was 44, this morning BS 233. Advised Gertrudis with patient's O2 being low and other symptoms patient should go to ER to be evaluated. Gertrudis voiced understanding. Gertrudis will talk with patient and family. Please review and advise, Gertrudis Newman RN documented [facility]04-[facility]24 Miscellaneous Notes* Telephone Encounter - Rica Garcia MA - 11/15/2023 4:03 PM EDT Pt and daughter notified of recommendations and will schedule the repeat CT in September. Rica Garcia MA * Telephone Encounter - Rica Garcia MA - 11/15/2023 3:11 PM EDT Per e-consult Dear Dr. Yunier Owen, Thank you for this interesting e-consult. While we may be able to access this nodule, to my eyes this nodule has been stable for one year. I would favor a repeat chest CT (I would write down under comments superdimension bronchoscopy protocol) in one year. I hope this is reasonable to you. Thank you again. Nader Finney MD 10/05/2023 6:56 PM Order was entered for CT next year by primary care. Can schedule at any time. Rica Garcia MA * Telephone Encounter - Ghislaine Yoon RN - 11/15/2023 2:18 PM EDT Manisha called. She was in [facility] with a hip fracture. She was admitted to a long term, but has been discharged and is now staying with her daughter. She was told that she had a nodule on her chest x-ray and was told that someone [facility] would be calling me and I have not heard from anyone. Ghislaine Yoon RN documented in this encounterW[facility]03-29-2024 Telephone encounter Note * Telephone Encounter - Annette Hogan LPN - 11/11/2023 12:53 PM EDT Phone call placed to [facility] spoke to rBandon, reported nocturnal oximetry testing was never performed due to patient admitted to nursing facility and reported to [facility] that she had testing performed at nursing facility and orders were archived with [employer] as they were no longer needed per patients family. Annette Hogan LPN [facility]03-29-2024 Miscellaneous Notes* Telephone Encounter - Annette Hogan LPN - 11/11/2023 12:53 PM EDT [facility], reported nocturnal oximetry testing was never performed due to patient admitted to nursing facility and reported to [facility] that she had testing performed at nursing facility and orders were archived with [employer] as they were no longer needed per patients family. Annette Hogan LPN * Telephone Encounter - Dejah Robertson LPN - 11/07/2023 11:30 AM EDT Fax sent to [facility] to request results or the test date. Dejah Robertson LPN * Telephone Encounter - Cristy Phillips OCCA - 10/07/2023 11:45 AM EST Received phone call in office from Oksana at [facility], (ph. [phone]) asking that results of nocturnal oximetry be faxed so patient can receive ordered O2 therapy. After reviewing patients chart, seems oximetry testing was ordered 09/19 but was not faxed to [facility]. Order has now been faxed and Oksana will reach out to patient to schedule testing. Once completed, Oksana will fax results to office for provider to review as well as oxygen orders to be signed. RUBIA Guerra documented in this encounterW[facility]03-26-2024 Miscellaneous Notes* Telephone Encounter - Claire Mckenna LPN - 11/08/2023 4:09 PM EDT Gertrudis notified, verbalized understanding. * Telephone Encounter - Ilir Hernández MD - 11/08/2023 3:32 PM EDT Keep current meds as written from hospital until seen Ok for orders * Telephone Encounter - Mari Valdivia LPN - 11/08/2023 3:22 PM EDT Gertrudis from [facility] Home Health calling asking for verbal orders for long term visits 1 time weekly for 3 weeks, then 1 time weekly for 3 weeks. Asking for verbal order for Social Work for community resources. Patient had been taking Calcium prior to her stay at SNF and is asking if she shouldbe taking calcium supplement and what dose? Please advise Home Health nurse is checking about her CPAP order from before her SNF stay. documented in this encounterW[facility]03-25-2024 Instructions* Patient Instructions* Ysabel Edwards APRN.CHRISTA - 11/07/2023 11:57 AM EDT Check if there is an appt with urology. If not, let us know so we can either order a bladder scan or get an appt set up with urology. Touch base with Dr. Chi re: insulin doses. Check with ortho re: the anticoagulants (we'll also fax our notes to their office). Recheck, as scheduled. documented in this encounterW[facility]03-25-2024 Telephone encounter Note * Telephone Encounter - Dejah Robertson LPN - 11/07/2023 11:30 AM EDT Fax sent to [employer] to request results or the test date. Dejah Robertson LPN [facility]03-25-[facility]24 History of Present illness Narrative* Ysabel Edwards APRN.CHRISTA - 11/07/2023 11:10 AM EDT This is a 73 year old female who presents today with: Patient presents with: Hospital F/U: [facility] dx: L hip fracture; transferred to [facility] [place] [facility] 11/03 HISTORY OF PRESENT ILLNESS: Manisha Keith is a 73 year old female. Patient presents with: Hospital F/U: [facility] dx: L hip fracture; transferred to [facility] [place] [facility] 11/03 Patient presents today for hospital follow-up. Patient presented to the emergency room on 10/11/2023 with a complaint of left hip pain after mechanical fall. She apparently fell and could not get up for about 24 hours. Imaging done showed an acutecomminuted left femoral intertrochanteric fracture. CT of the head was negative for acute intracranial pathology. She had mild rhabdomyolysis with CPK more than 1000. She was admitted and managed forleft hip fracture. Ortho surgery was consulted and she had an left open reduction internal fixationwith intramedullary nail placement. Postop course was complicated by some encephalopathy but this subsided. It was thought that she had a UTI, however, urinalysis did not show any evidence of UTI and showed chronic elevation of leuk esterase. She was discharged to [facility] [place] with a prescription for oxycodone and Xarelto for DVT prophylaxis. She was discharged from [facility] [place] on 11/04/23 -- to daughter's home. She had a CBC on 11/02/2023. It revealed her white count to be 9.3. RBCs were 3.29. H&H were 10.1 and 31.8. Platelets were 302. Blood counts are trending up. CMP revealed her potassium be 4.2. BUN and creatinine were 20 and 0.98. Alk phos was 160, but patient did have recent hip fracture. Remaining liver enzymes were normal. Vitamin D was 18.2. Things going okay at home. Living with daughter. Up and around independently w/ walker. Home health services going into the home. Refers that she has been having an issue with her blood sugars. She has lost 11 #. She follows with Dr. Chi. Low sugars are occurring at nighttime. She is going into the 30's-40's. Waking with symptoms (palpitations, hot, shaky). Checking sugars three times daily -- 100's in the long term. They are going to call or stop into Dr. Chi's office to update. . Pain: Taking tylenol as needed. She was discharged from [facility] [place]. Did have a follow-up with Dr. Sutton. Unsure if she is still supposed to be on the anticoagulants. She doesn't have any prescriptions for anticoagulants at home -- saw ortho last week. Some constipation. Relieved w/ stool softener. No hematochezia/melena. Refers had to be straight cath about 5-6 times d/t not emptying out. Thought that she might have an appt with urology coming up. Thought that she had a UTI during hospitalization -- would like to get checked. PAST MEDICAL HISTORY: PAST MEDICAL HISTORY Diagnosis Date Allergic rhinitis, cause unspecified Arthritis Asthma Childhood asthma Breast cancer (HCC) age 34-had lump, cancerous cells. no issues since, left Diverticulosis of colon (without mention of hemorrhage) Ground glass opacity present on imaging of lung Heme positive stool 2010 History of cervical cancer regular Paps for life Hyperlipidemia 2010 Inflammatory polyarthritis (HCC) Dr. 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) Sleep apnea Not on CPAP Type II or unspecified type diabetes mellitus without mention of complication, not stated as uncontrolled Unspecified essential hypertension PAST SURGICAL HISTORY Procedure Laterality Date ABDOMINAL SURGERY HX hx of feeding tube inserted APPENDECTOMY HX COLONOSCOPY FLX DX W/COLLJ SPEC WHEN PFRMD 06/26/2009 COLONOSCOPY FLX DX W/COLLJ SPEC WHEN PFRMD 04/10/2019 Colonoscopy COLONOSCOPY SCREENING 02/11/2022 Dr Olivas EGD 2010 EGD 02/11/2022 Dr Olivas ERCP DX COLLECTION SPECIMEN BRUSHING/WASHING 07/23/2008 Cholangiopancreatography (ERCP) ESOPHAGOGASTRODUODENOSCOPY TRANSORAL DIAGNOSTIC 04/10/2019 EGD EYE SURGERY HX MASTECTOMY Left age 34 Mastectomy - simple PAST SURGICAL HISTORY OF nose cauterized inside PAST SURGICAL HISTORY OF removal of skin cancer from right arm PAST SURGICAL HISTORY OF Left 10/11/[address] Scott Sutton [facility] SEC MEMBRANOUS [facility] CORNEO-SCLL SCTJ Bilateral Cataract removal BILATERAL TOTAL ABDOMINAL HYSTERECT W/WO RMVL TUBE OVARY age 27 Hysterectomy, MARQUES cervical cancer, has one ovary left ALLERGIES Jesenia Inhibitors, Nsaids (Non-Steroidal Anti-Inflammatory Drug), Tape [Adhesive Tape (Rosins)], and Trulicity [Dulaglutide] MEDICATIONS Current Outpatient Medications Medication Sig doxepin (ZONALON) 5 % cream Apply to affected area three times a day as needed for itching/rash (donot exceed dosing). fluticasone (FLONASE) 50 mcg/actuation nasal spray USE 1 SPRAY IN EACH NOSTRIL ONCE DAILY AT BEDTIME DIRECTED cetirizine (ZYRTEC) 10 mg tablet Take 1 tablet by mouth once daily. famotidine (PEPCID) 20 mg tablet Take 1 tablet by mouth at bedtime as needed. Aug Betamethasone Dipropionate (DIPROLENE) 0.05 % ointment Apply to affected area two times a day. hydroCHLOROthiazide 12.5 mg capsule Take 1 capsule by mouth once daily. solbjncadsr-uyijgcpjj-wttgsmck (TRELEGY ELLIPTA) 200-62.5-25 mcg inhalation powder Inhale 1 Puff asinstructed once daily. esomeprazole (NEXIUM) 40 mg capsule Take 1 capsule by mouth two times a day before meals. 1/2 hr before meal. nystatin (MYCOSTATIN) cream Apply 1 application to affected area two times a day. gabapentin (NEURONTIN) 300 mg capsule Take 1 capsule by mouth daily at bedtime. oxybutynin ER (DITROPAN XL) 10 mg 24 hr tablet Take 2 tablets by mouth once daily. FOLIC ACID ORAL Take by mouth. verapamil SR (CALAN SR) 120 mg CR tablet Take 1 tablet by mouth daily at bedtime. atorvastatin (LIPITOR) 20 mg tablet Take 1 tablet by mouth daily at bedtime. For cholesterol. methotrexate 2.5 mg tablet Take 20 mg by mouth every Tuesday. HUMULIN R U-500, CONC, KWIKPEN 500 unit/mL (3 mL) inpn Inject subcutaneously three times daily. 70/70/40 melatonin 3 mg tablet Take 1 tablet at 9PM nightly. insulin needles, DISPOSABLE, (PEN NEEDLE) 31 gauge x 5/16 Use one needle per dose. 4 per day. ondansetron orally disintegrating (ZOFRAN ODT) 4 mg disintegrating tablet DISSOLVE 1 TABLET IN MOUTH THREE TIMES DAILY NEEDED FOR NAUSEA AND VOMITING blood sugar diagnostic (ONETOUCH VERIO TEST STRIPS) test strip Test blood sugar(s) 3-4 times daily.Dx: Other DM Code E11.319 Insulin: Yes metaxalone (SKELAXIN) 800 mg tablet Take 1 tablet by mouth three times daily as needed for pain. Cholecalciferol, Vitamin D3, 50 mcg (2,000 unit) cap Take 1 capsule by mouth once daily. escitalopram oxalate (LEXAPRO) 10 mg tablet Take 1 tablet by mouth once daily. losartan (COZAAR) 100 mg tablet Take 1 tablet by mouth once daily. metoprolol succinate ER (TOPROL XL) 100 mg Take 1 tablet by mouth once daily. albuterol HFA (PROAIR HFA) 90 mcg/actuation inhaler Inhale 2 Puffs as instructed every 4 hours as needed. blood sugar diagnostic (BLOOD GLUCOSE TEST) test [...] Drops in the left eye twice daily. No current facility-administered medications for this visit. FAMILY HISTORY Problem Relation Age of Onset Alcohol abuse Mother None Father Cave in Stroke Sister Cancer Sister COPD Sister No Known Problems Brother No Known Problems Brother Breast Cancer Maternal Aunt Primary Biliary Cirrhosis Daughter Social History Tobacco Use Smoking status: Former Packs/day: 0.75 Years: 30.00 Additional pack years: 0.00 Total pack years: 22.50 Types: Cigarettes Quit date: 08/15/2000 Years since quittin.2 Passive exposure: Never Smokeless tobacco: Never Vaping Use Vaping Use: Never used Substance Use Topics Alcohol use: Never Comment: rarely Drug use: No EXAM: BP 122/68 Pulse 72 Resp 16 Wt 89.4 kg (197 lb) SpO2 95% BMI 37.22 kg/m PHYSICAL EXAM: General Appearance: Well appearing, alert, in no acute distress, well-hydrated, well nourished.. Skin: Skin color, texture, turgor normal, no suspicious rashes or lesions. Head: Normocephalic, no masses, lesions, tenderness or abnormalities. Eyes: Anicteric sclera.Extraocular movements are intact. . Neck: Supple, no adenopathy; thyroid symmetric, normal size, no bruits. Lungs: Lungs clear to auscultation. No wheezing, rhonchi, rales.. Heart: RRR without murmur, gallop, or rubs. No ectopy. Extremities: No deformities, edema, skin discoloration, clubbing or cyanosis. Good capillary refill. . Neurologic: Gait normal w/ walker. ASSESSMENT/PLAN: 1. Closed fracture of left hip with routine healing, subsequent encounter - ICD9: V54.13, ICD10: S72.002D (primary diagnosis) Doing well. Will fax notes to ortho. Patient was on prophylactic anticoagulation. Unsure if she is to continue this. Was not discharged with this from long term. Pain controlled w/ tylenol. Has home health services. Labs done last week stable with H&H trending up. 2. Cutaneous candidiasis - ICD9: 112.3, ICD10: B37.2 Refill: - NYSTATIN 100,000 UNIT/GRAM TOPICAL CREAM 3. 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 Chi's office later today regarding her lowsugars. Since being in the hospital/long term and now living with daughter, patient is eating differently. - BLOOD SUGAR DIAGNOSTIC STRIPS 4. Retention of urine - ICD9: 788.20, ICD10: R33.9 Patient thinks that she has a follow-up with urology scheduled. Her and her daughter will check her documentation at home to see if they truly have a urology appointment scheduled. If not, they will notify provider and we will order bladder scan versus urology referral to follow-up on the retention that she was having in the long term. - URINALYSIS, WITH MICROSCOPIC - URINE CULTURE Discussed treatment plan and patient voices understanding. Patient's questions answered appropriately. Medications and potential side effects were discussed and patient voices understanding. Return to the office as scheduled or as needed for worsening/no improvement. Ysabel Edwards APRN.MATERIAL LOADER documented in this encounterW[facility]03-22-2024 Miscellaneous Notes* Telephone Encounter - Manisha Randall MA - 11/04/2023 2:04 PM EDT Katie notified. Manisha Randall MA * Telephone Encounter - Ilir Hernández MD - 11/04/2023 12:58 PM EDT ok * Telephone Encounter - Mari Valdivia LPN - 11/04/2023 12:54 PM EDT Katie from [facility] Home Health calling received orders for half-way, PT,OT patient discharging today from [facility] to home. Patient has fractured left femur. Will need delay of care, start care Tuesday since she has appt on Tuesday with provider. Asking if PCP would follow patient and sign orders? Please advise documented in this encounterWooster [facility] Hospital02-29-2024 Progress note Author [facility] October 13, 2023 3:50pm Note Date/Time October 13, 2023 10:32am [facility] Medical Records Department [address] [place] [address] Progress Note 10/13/23 1023 MR#: [id number] Acct: [id number] Name: MANISHA KEITH Rep #:[id number] : 1950 73 From: Aaliyah Tubbs MD PCP: Dr. Ilir Hernández MD Status:ADM I N Location: [place] [address] Subjective Subjective Patient seen and examined. She did complain of some wheezing overnight. She wasalert and responsive. Review of systems is otherwise negative. Objective Data Objective Data Vital Signs: Vital Signs Temp Pulse Resp BP Pulse Ox O2 Del Method O2 Flow Rate 97.7 F L 86 18 167/58 H 95 Nasal Cannula 2 10/13/23 08:10 10/13/23 08:10 10/13/23 08:10 10/13/23 08:10 10/13/23 08:40 10/13/23 08:40 10/13/23 08:40 Oxygen Flow Rate (L/min) 2 Oxygen Delivery Method Nasal Cannula Weight: 206 lb 12.697 oz Body Mass Index (BMI) 38.0 Intake & Output: Intake and Output for Last 24 Hours 10/11/23 10/12/23 10/13/23 23:59 23:59 23:59 Intake Total 4120 / 4120 2740.00 / 2740.00 350 / 350 Output Total 1675 / 1675 1350 / 1350 625 / 625 Balance 2445 / 2445 1390.00 / 1390.00 -275 / -275 Lab / Micro Data 10/13/23 06:42 10/13/23 06:42 Labs: Laboratory Results - last 24 hr 10/12/23 11:18: POC Glucose 287 H 10/12/23 16:16: POC Glucose 109 H 10/12/23 21:49: POC Glucose 98 10/13/23 06:42: WBC 8.8, RBC 2.66 L, Hgb 8.3 L, Hct 26.5 L, MCV 99.6 H, MCH 31.2, MCHC 31.3 L, RDW Std Deviation 47.8 H, RDW Coeff of Tom 13.2, Plt Count 204, MPV 10.0, Sodium 140, Potassium 3.5, Chloride 111 H, Carbon Dioxide 27.0, Anion Gap 2 L, BUN 19 H, Creatinine 0.84, Estim Creat Clear Calc 64.20, Est GFR (MDRD) Af Amer 86, Est GFR (MDRD) Non-Af 71, BUN/Creatinine Ratio 22.7 H, Glucose 212 H, Calcium 7.6 L 10/13/23 08:05: POC Glucose 221 H Micro: Microbiology 10/11/23 00:49 Mucosa - Nose SARS-CoV-2, Influenza & RSV (PCR) - Final Rhythm Strip Rhythm Strip: Sinus Tach Ectopy: None Physical Exam Const alert, oriented x3, no apparent distress, average body habitus and healthy appearing General Appearance: cooperative HEENT normocephalic, head/scalp atraumatic and hearing grossly normal bilaterally Eyes PERRL and EOMs intact bilaterally Neck no lymphadenopathy and supple Lymph Lymphatic: no lymphadenopathy noted and no lymphedema noted Resp normal respiratory effort, no retractions, no use of accessory muscles and clearto auscultation bilaterally Resp Narrative: diminished breath sounds bibasally, no wheezes or crackles. On 2L of oxygen by nasal canula Cardio regular rate, regular rhythm, S1 normal heart sound, S2 normal heart sound and no murmurs GI normal to inspection, nondistended, normoactive bowel sounds, soft to palpation,non-tender and non-distended Extremity normal capillary refill and no clubbing, cyanosis or edema Extremity Narrative: dressing over LLE General Extremity: no tenderness to palpation of joints or extremities Skin Skin Narrative: Patient has no evidence of rash at this time. General Skin Exam: no breakdown Neuro oriented x3, CN's II-XII intact bilaterally, moves all extremities and no focal motor deficits Sensorium / Orientation: awake, alert, oriented to person, oriented to place andoriented to time Speech: speech normal Motor Exam: general weakness Psych thought process normal and cooperative Mood & Affect: anxious Assessment & Plan Assessment/Plan (1) Closed left hip fracture: QUALIFIERS: Encounter type: initial encounter Qualified Code(s): S72.002A - Fracture of unspecified part of neck of left femur, initial encounterfor closed fracture (2) Rhabdomyolysis: QUALIFIERS: Rhabdomyolysis type: traumatic Encounter type: initial encounter Qualified Code(s): T79.6XXA - Traumatic ischemia of muscle, initial encounter PLAN: Plan #Acute comminuted left hip fracture due to mechanical fall * status post left leg open reduction and internal fixation with intramedullary nail fixation. today is POD 1. * fell at home and was on the floor for about 24 hours * on PO tylenol, PO oxycodone and IV morphine prn for pain * PT/OT on board * general surgery on board * fall precautions * * #Rhabdomyolysis due to mechanical fall * resolved * #Altered mental status * Resolved. Patient now alert and oriented x 3. There was concern for UTI but I reviewed her urinalysis and she has chronic leukocytes esterase in her urine as with previous urine cultures over the years. * There is no bacteria in her urine. Confusion is also resolved. Will therefore hold off on initiating antibiotics for now. #Hyperglycemia in the setting of type 2 diabetes mellitus with neuropathy * On U-500 humulin 75 units twice daily. * Ion ISS. Accuchecks ACHS * #Hyperlipidemia: On statin #Benign essential hypertension: IV hydralazine as needed. On hydrochlorothiazide and losartan. Also on verapamil and metoprolol. #History of gastroparesis with G-tube insertion: Stable #Depression: On Lexapro DVT prophylaxis: On Xarelto 10 mg daily as per orthopedics. Disposition: Awaiting placement. Charges/Coding Visit Charges Inpatient E&M: 23066 Subs Hosp L2 10/13/23 0187 <Electronically signed by Aaliyah Tubbs MD> Aaliyah Tubbs MD Cosigner Signature (if applicable): CC: ~ Signed [facility] Work Phone: 1(129) 733-356302-29-2024 Telephone encounter Note* Telephone Encounter - Sammie Tanner - 10/13/2023 9:53 AM EST 1st call attempt, left vm [facility]02-29-2024 Miscellaneous Notes* Telephone Encounter - Sammie Tanner - 10/13/2023 9:53 AM EST 1st call attempt, left vm * Telephone Encounter - Usman Barboza PA-C - 10/12/2023 2:35 PM EST Please schedule CT 1 year Telephone on 10/12/23 CT CHEST WO IVC Lung nodules (primary encounter diagnosis) ThanksDex PA-C [facility] Progress note Author Aaliyah Tubbs [facility] October 12, 2023 3:08pm Note Date/Time October 12, 2023 12:32pm [facility] Medical Records Department [address] [place] [address] Progress Note 10/12/23 1227 MR#: [id number] Acct: [id number] Name: MANISHA KEITH Rep #:[id number] : 1950 73 From: Aaliyah Tubbs MD PCP: Dr. Ilir Hernández MD Status:ADM I N Location: [facility] [id number] Subjective Subjective Patient seen and examined. Her daughter was by her bedside. Patient did appearto be confused and when asked to wait hip pain, she could not even tell me how severe hip pain was. She only said pain was bad. She denied any fever or chills or shortness of breath. Review of systems otherwise negative. Today's postop day 1 for left hip open reduction and internal fixation with intramedullary nail fixation. Objective Data Objective Data Vital Signs: Vital Signs Temp Pulse Resp BP Pulse Ox O2 Del Method O2 Flow Rate 98.8 F 91 18 132/44 H 95 Nasal Cannula 2 10/12/23 08:40 10/12/23 08:49 10/12/23 08:40 10/12/23 08:40 10/12/23 11:05 10/12/23 08:40 10/12/23 08:40 Oxygen Flow Rate (L/min) 2 Oxygen Delivery Method Nasal Cannula Weight: 206 lb 12.697 oz Body Mass Index (BMI) 38.0 Intake & Output: Intake and Output for Last 24 Hours 10/10/23 10/11/23 10/12/23 23:59 23:59 23:59 Intake Total 4120 / 4120 2340.00 / 2340.00 Output Total 1675 / 1675 1050 / 1050 Balance 2445 / 2445 1290.00 / 1290.00 Lab / Micro Data 10/12/23 06:13 10/12/23 06:13 Labs: Laboratory Results - last 24 hr 10/11/23 00:47: Hemoglobin A1c 11.1 H 10/11/23 17:30: POC Glucose 319 H 10/11/23 22:10: Urine Color Yellow, Urine Clarity Sl. Cloudy, Urine pH 6.0, Ur Specific [place] 1.020, Urine Protein 30 H, Urine Glucose (UA) 1000 H, Urine Ketones 5 H, Urine Occult Blood 150 H, Urine Nitrite Negative, Urine Bilirubin Negative, Urine Urobilinogen Normal, Ur Leukocyte Esterase 500 H, Urine RBC 5-10SEEN, Urine WBC 10-25 SEEN, Ur Squamous Epith Cells 0 SEEN, Urine Bacteria 0 SEEN, Urine Mucus 0 SEEN 10/11/23 23:29: POC Glucose 272 H 10/12/23 06:13: WBC 10.5, RBC 2.81 L, Hgb 9.0 L, Hct 27.9 L, MCV 99.3 H, MCH 32.0, MCHC 32.3, RDW Std Deviation 47.6 H, RDW Coeff of Tom 13.2, Plt Count 180,MPV 9.4, Sodium 144, Potassium 4.6, Chloride 116 H, Carbon Dioxide 25.0, Anion Gap 3 L, BUN 21 H, Creatinine 0.87, Estim Creat Clear Calc 61.98, Est GFR (MDRD)Af Amer 83, Est GFR (MDRD) Non-Af 68, BUN/Creatinine Ratio 24.2 H, Glucose 331 H, Calcium 7.6 L 10/12/23 06:28: POC Glucose 319 H 10/12/23 11:18: POC Glucose 287 H Micro: Microbiology 10/11/23 00:49 Mucosa - Nose SARS-CoV-2, Influenza & RSV (PCR) - Final Radiography Diagnostic Testing: Radiology Impression Hip X-Ray 10/11/23 08:15 IMPRESSION: ORIF of the left femur. Electronically Signed: Saúl Diaz DO at 17:42 EST Reading Location ID and State: [facility] / [place] Tel [phone], Service support , Rhythm Strip Rhythm Strip: Sinus Tach Ectopy: None Physical Exam Const alert, oriented x3, no apparent distress, average body habitus and healthy appearing Constitutional Narrative: frail, in moderate distress. General Appearance: cooperative HEENT normocephalic, head/scalp atraumatic and hearing grossly normal bilaterally Eyes PERRL and EOMs intact bilaterally Neck no lymphadenopathy and supple Lymph Lymphatic: no lymphadenopathy noted and no lymphedema noted Resp normal respiratory effort, no retractions, no use of accessory muscles and clearto auscultation bilaterally Resp Narrative: diminished breath sounds bibasally, no wheezes or crackles. On 2L of oxygen by nasal canula Cardio regular rate, regular rhythm, S1 normal heart sound, S2 normal heart sound and no murmurs GI normal to inspection, nondistended, normoactive bowel sounds, soft to palpation,non-tender and non-distended Extremity normal capillary refill and no clubbing, cyanosis or edema Extremity Narrative: dressing over LLE General Extremity: no tenderness to palpation of joints or extremities Skin General Skin Exam: no breakdown Neuro oriented x3, CN's II-XII intact bilaterally, moves all extremities and no focal motor deficits Sensorium / Orientation: awake, alert, oriented to person, oriented to place andoriented to time Speech: speech normal Motor Exam: general weakness Psych thought process normal and cooperative Mood & Affect: anxious Assessment & Plan Assessment/Plan (1) Closed left hip fracture: QUALIFIERS: Encounter type: initial encounter Qualified Code(s): S72.002A - Fracture of unspecified part of neck of left femur, initial encounterfor closed fracture (2) Rhabdomyolysis: QUALIFIERS: Rhabdomyolysis type: traumatic Encounter type: initial encounter Qualified Code(s): T79.6XXA - Traumatic ischemia of muscle, initial encounter PLAN: Plan #Acute comminuted left hip fracture due to mechanical fall * 's status post left leg open reduction and internal fixation with intramedullary nail fixation. today is POD 1. * fell at home and was on the floor for about 24 hours * LLE currently in traction * on PO tylenol, PO oxycodone and IV morphine prn for pain * PT/OT on board * general surgery on board * fall precautions * being hydrated with iVF * NSQIP risk calculator showed that she was at below average risk for serious complication and on average risk for any complication. Patient seen and risk stratified as moderate risk for surgery/ * #Rhabdomyolysis due to mechanical fall * CPK was greater than 1000. Being hydrated with IV fluids. Will trend CPK. #Hyperglycemia in the setting of type 2 diabetes mellitus with neuropathy * On U-500 humulin 75 units twice daily. * Ion ISS. Accuchecks ACHS * #Hyperlipidemia: On statin #Benign essential hypertension: IV hydralazine as needed. On hydrochlorothiazide and losartan. Also on verapamil and metoprolol. #History of gastroparesis with G-tube insertion: Stable #Depression: On Lexapro DVT prophylaxis: Lovenox. Charges/Coding Visit Charges Inpatient E&M: 83933 Subs Hosp L2 10/12/23 1508 <Electronically signed by Aaliyah Tubbs MD> Aaliyah Tubbs MD Cosigner Signature (if applicable): CC: ~ Signed [facility] Work Phone: 1(881) 275-643902-28-2024 Telephone encounter Note* Telephone Encounter - Usman Barboza PA-C - 10/12/2023 2:35 PM EST Please schedule CT 1 year Telephone on 10/12/23 CT CHEST WO IVCON Lung nodules (primary encounter diagnosis) Dex Arevalo PA-C [facility]02-28-2024 Progress note Author Christine Holguin [facility] October 12, 2023 12:24pm Note Date/Time October 12, 2023 11:37am [facility] Medical Records Department [address] [place] [address] Progress Note - Orthopedic 10/12/23 1132 MR#: [id number] Acct: [id number] Name: MANISHA KEITH Rep #:[id number] : 1950 73 From: Christine BHAT PCP: Dr. Ilir Hernández MD Status:ADM I N Location: [facility] [id number] Subjective Subjective Patient is a 73-year-old female status post left hip open reduction internal fixation with intramedullary nail with Dr. Sutton on 10/11/2023. She presented 10/09/2023 after a mechanical fall and had a intertrochanteric fracture of the left hip. Patient resting comfortably in bed. Rates pain 5/ 10 at rest. Withmovement 7 /10. States taking tylenol, and morphine and oxycodone. and ice help to relieve pain. they have d/c'd morphine due to minor confusion. patientis a&Ox 3 currently. Patient has been up with therapy. Walking with the assistof a walker she is partial weightbearing to left lower extremity. Afebrile, no chest pain, shortness of breath, negative calf pain/ erythema, and no other signs of DVT. Objective Data Objective Data Vital Signs: Vital Signs Temp Pulse Resp BP Pulse Ox O2 Del Method O2 Flow Rate 98.8 F 91 18 132/44 H 95 Nasal Cannula 2 10/12/23 08:40 10/12/23 08:49 10/12/23 08:40 10/12/23 08:40 10/12/23 11:05 10/12/23 08:40 10/12/23 08:40 Oxygen Flow Rate (L/min) 2 Oxygen Delivery Method Nasal Cannula Weight: 93.8 kg Body Mass Index (BMI) 38.0 Intake & Output: Intake and Output for Last 24 Hours 10/10/23 10/11/23 10/12/23 23:59 23:59 23:59 Intake Total 4120 / 4120 2340.00 / 2340.00 Output Total 1675 / 1675 1050 / 1050 Balance 2445 / 2445 1290.00 / 1290.00 Lab / Micro Data 10/12/23 06:13 10/12/23 06:13 Labs: Laboratory Results - last 24 hr 10/11/23 00:47: Hemoglobin A1c 11.1 H 10/11/23 11:27: POC Glucose 372 H 10/11/23 17:30: POC Glucose 319 H 10/11/23 22:10: Urine Color Yellow, Urine Clarity Sl. Cloudy, Urine pH 6.0, Ur Specific [place] 1.020, Urine Protein 30 H, Urine Glucose (UA) 1000 H, Urine Ketones 5 H, Urine Occult Blood 150 H, Urine Nitrite Negative, Urine Bilirubin Negative, Urine Urobilinogen Normal, Ur Leukocyte Esterase 500 H, Urine RBC 5-10SEEN, Urine WBC 10-25 SEEN, Ur Squamous Epith Cells 0 SEEN, Urine Bacteria 0 SEEN, Urine Mucus 0 SEEN 10/11/23 23:29: POC Glucose 272 H 10/12/23 06:13: WBC 10.5, RBC 2.81 L, Hgb 9.0 L, Hct 27.9 L, MCV 99.3 H, MCH 32.0, MCHC 32.3, RDW Std Deviation 47.6 H, RDW Coeff of Tom 13.2, Plt Count 180,MPV 9.4, Sodium 144, Potassium 4.6, Chloride 116 H, Carbon Dioxide 25.0, Anion Gap 3 L, BUN 21 H, Creatinine 0.87, Estim Creat Clear Calc 61.98, Est GFR (MDRD)Af Amer 83, Est GFR (MDRD) Non-Af 68, BUN/Creatinine Ratio 24.2 H, Glucose 331 H, Calcium 7.6 L 10/12/23 06:28: POC Glucose 319 H Micro: Microbiology 10/11/23 00:49 Mucosa - Nose SARS-CoV-2, Influenza & RSV (PCR) - Final Radiography Diagnostic Testing: Radiology Impression Hip X-Ray 10/11/23 08:15 IMPRESSION: ORIF of the left femur. Electronically Signed: Saúl Diaz DO at 17:42 EST Reading Location ID and State: [facility] / [place] Tel [phone], Service support , Rhythm Strip Rhythm Strip: Sinus Tach Ectopy: None Physical Exam Narrative Patient resting comfortably in bed No signs of acute distress Satting well on room air Limb is warm to touch, Sensation intact throughout entire lower extremity, including saphenous, sural, superficial and deep peroneal, and tibial distribution. DP/PT pulses bounding. dorsiflexion 5/5 plantar flexion 5/5 Dressing c/d/l Calf nontender to palpation, no erythema, no edema. Negative Homans Assessment & Plan Assessment/Plan (1) Closed left hip fracture: QUALIFIERS: Encounter type: initial encounter Qualified Code(s): S72.002A - Fracture of unspecified part of neck of left femur, initial encounterfor closed fracture PLAN: Plan Postop day 1 status post left open reduction internal fixation with intramedullary nail with Dr. Sutton 1. Will continue PT today. Partial weightbearing to left lower extremity. Walker for assistance. 2. Ultimate discharge per primary team. orthopaedically stable. 3. Patient will need to schedule follow-up appointment in our office for 2 weekspostop. 4. WBC 10.5 no acute reactive leukocytosis 5. H/H 9.0/27.9: post operative anemia secondary to acute blood loss intraoperatively. Patient is asymptomatic at this time. No intraoperative complications. will continue to monitor. no acute interventions. 6. DVT prophylaxis : Xarelto 10 mg once daily for 30 days for DVT prophylaxis due to NSAID allergy. 7. Pain control: patient instructed to take tylenol 500mg 2 tablets TID. and oxycodone 1-2 tablets every 4-6 hours only as needed for pain control. 8. ok to remove post op dressing. post op day 5 9. will sign off at this time. 10/12/23 1224 <Electronically signed by Christine BHAT> Cosigner Signature (if applicable): CC: ~ Signed [facility] Work Phone: 1(534) 873-910202-28-2024 Miscellaneous Notes* Telephone Encounter - Areli Salas LPN - 10/12/2023 11:06 AM EST Sent Epic message to [employer]. OPAL ALVES will work just put the superdimension in the notes as mentioned. * Telephone Encounter - Rica Hogan LPN - 10/07/2023 11:24 AM EST Attempted to reach ordnance engineering technician without success. Ext [phone]. Try later. Rica Hogan LPN * Telephone Encounter - Areli Salas LPN - 10/06/2023 3:54 PM EST Attempted to contact ordnance engineering technician and unable to reach will have to call again later. Ext [phone] * Telephone Encounter - Usman Barboza PA-C - 10/06/2023 12:57 PM EST Please check with CT: IR recommends chest CT with superdimension bronchoscopy protocol Is this Wo or W IVCON? Thanks, Dex Barboza PA-C * Telephone Encounter - Usman Barboza PA-C - 10/06/2023 11:40 AM EST 10/05/2022 E-[address] Dr. Yunier Owen Spoke to patient regarding her CT results. No significant change since last CT. Remains suspicious for adenocarcinoma. I will consult interventional pulmonaryfor possible biopsy. 10/05/2022 virtual consult with interventional pulmonology Dr. Chente Carlos MD: While we may be able to access this nodule, to my eyes this nodule has been stable for one year. I would favor a repeat chest CT (I would write down under comments superdimension bronchoscopy protocol) in one year. I will order but I am not familiar with this protocol and need to ascertain if it requires IV contrast. Message sent to Dr. Owen. Thanks, Dex Barboza PA-C * Telephone Encounter - Mari Valdivia LPN - 10/04/2023 3:08 PM EST Patient calling asking for her CT Chest results. Patient said she was to have had one done for Dr Owen also. Computer had order from july for Dr Owen. Advised patient to let Dr Owen know she had CT Chest done. Please advise 09/29/2023 1:54 PM - Radiology, Oru In Impression IMPRESSION: 1. Stable indeterminate 10 x 9 mm part solid nodule in the right lung apex, concerning for a slowly growing neoplasm along the spectrum of adenocarcinoma/adenocarcinoma in situ. Continued attention on imaging follow-up is recommended. 2. Few additional small bilateral pulmonary nodules, stable since prior. 3. No thoracic lymphadenopathy. 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 Technique: Spiral CT acquisition of the chest from the thoracic inlet to the upper abdomen without contrast. MQ: [id number] CT Radiation dose: Integrated Dose-length product (DLP) for this visit = 364 mGy*cm CT Dose Reduction Employed: Automated exposure control(AEC) and iterative recon Comparison: Chest CT dated 03/31/2023 and 09/27/2019 RESULT: Limitations: None. Lines, tubes, and devices: None. Lung parenchyma and airways: Stable 10 x 9 mm solid nodule in the right lung apex (: 26). Few additional small pulmonary nodules, stable since prior. For reference, 5 mm nodule in the left lower lobe (6:97), 3 mm subpleural nodule in the posterior left upper lobe (6:27), and 2 mm nodule in the right upper lobe (6:69). Mild dependent bibasilar atelectases. No focal lung consolidation. Mild subpleural reticulations in the left upper lobe, nonspecific. The central airways are patent. No endobronchial lesion. Pleural space: No pleural effusion, pleural thickening or pneumothorax. Lower neck, lymph nodes, and mediastinum: The imaged thyroid gland is unremarkable. No lymphadenopathy in the supraclavicular, axillary, mediastinal, or hilar regions. The esophagus is nondilated. Heart, pericardium, and thoracic vessels: Mild atherosclerosis of the thoracic aorta. Incidentally noted is a separate origin of the left vertebral artery from the aortic arch, a normal variant. The thoracic aorta and main pulmonary artery are normal in caliber. The cardiac chambers are normal in size. Mild aortic valve leaflet calcifications. Mild coronary artery atherosclerotic calcifications are noted, although the study is not optimized for coronary assessment. Trace anterior pericardial effusion, similar to prior. Bones and soft tissues: Multilevel endplate degenerative changes of the visualized spine. No destructive bone lesion. Stable postsurgical changes of left mastectomy. Several anterior chest wall collaterals. Upper abdomen: Cholelithiasis. Stable 2.0 cm left adrenal adenoma (5:164). 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 [facility] Progress note Author Aaliyah [facility] October 11, 2023 4:25pm Note Date/Time October 11, 2023 9:59am [facility] Medical Records Department [address] [place] [address] Progress Note 10/11/23 0955 MR#: [id number] Acct: [id number] Name: MANISHA KEITH Enrique Rep #:[id number] : 1950 73 From: Aaliyah Tubbs MD PCP: Dr. Ilir Hernández MD Status:ADM I N Location: [place] [address] Subjective Subjective Patient seen and examined. She complained of pain in her LLE due to the fracture. She denied any shortness of breath, palpitations, dizziness, nausea, vomiting or any other symptoms. Review of systems is otherwise negative. She is on 2L of oxygen. Objective Data Objective Data Vital Signs: Vital Signs Temp Pulse Resp BP Pulse Ox O2 Del Method O2 Flow Rate 98.7 F 114 H 18 167/64 H 96 Nasal Cannula 2 10/11/23 07:53 10/11/23 08:15 10/11/23 08:15 10/11/23 07:53 10/11/23 08:15 10/11/23 08:15 10/11/23 08:15 Oxygen Flow Rate (L/min) 2 Oxygen Delivery Method Nasal Cannula Weight: 206 lb 12.697 oz Body Mass Index (BMI) 37.8 Intake & Output: Intake and Output for Last 24 Hours 10/09/23 10/10/23 10/11/23 23:59 23:59 23:59 Intake Total 1960 / 1960 Output Total 1400 / 1400 Balance 560 / 560 Lab / Micro Data 10/11/23 06:49 10/11/23 06:49 Labs: Laboratory Results - last 24 hr 10/11/23 00:45: WBC 16.8 H, RBC 4.25, Hgb 13.7, Hct 40.2, MCV 94.6, MCH 32.2 H, MCHC 34.1, RDW Std Deviation 44.8 H, RDW Coeff of Tom 13.2, Plt Count TNP, MPV 11.7, Immature Gran % (Auto) 0.600, Neut % (Auto) 90.6 H, Lymph % (Auto) 3.0 L, [place] % (Auto) 5.5, Eos % (Auto) 0.1, Baso % (Auto) 0.2, Absolute Neuts (auto) 15.2 H, Absolute Lymphs (auto) 0.51 L, Nucleated RBC % 0, Platelet Estimate ADEQUATE, PT Cancelled, INR Cancelled, APTT Cancelled, Sodium 134 L, Potassium 4.6, Chloride 102, Carbon Dioxide 22.0, Anion Gap 10, BUN 18, Creatinine 1.19 H,Estim Creat Clear Calc 46.31, Est GFR (MDRD) Af Amer 57 L, Est GFR (MDRD) Non-Af48 L, BUN/Creatinine Ratio 15.1, Glucose 445 H, Calcium 9.1, Total Bilirubin 0.90, AST 48 H, ALT 24, Alkaline Phosphatase 74, Total Creatine Kinase > 1000 H,Troponin I High Sens 8, Total Protein 7.7, Albumin 3.1 L, Globulin 4.6 H, Albumin/Globulin Ratio 0.7 L 10/11/23 01:05: PT 13.3, INR 1.0, APTT 21.7 L 10/11/23 02:18: Urine Color Yellow, Urine Clarity Clear, Urine pH 5.0, Ur Specific [place] 1.020, Urine Protein 30 H, Urine Glucose (UA) 1000 H, Urine Ketones 50 H, Urine Occult Blood 25 H, Urine Nitrite Negative, Urine Bilirubin Negative, Urine Urobilinogen Normal, Ur Leukocyte Esterase Negative, Urine RBC 0-5 SEEN, Urine WBC 0 SEEN, Ur Squamous Epith Cells 0-5 SEEN, Urine Bacteria 0 SEEN, Urine Mucus 0 SEEN 10/11/23 06:49: WBC 14.1 H, RBC 3.56 L, Hgb 11.4 L, Hct 34.3 L, MCV 96.3, MCH 32.0, MCHC 33.2, RDW Std Deviation 46.5 H, RDW Coeff of Tom 13.2, Plt Count 203,MPV 9.8, Immature Gran % (Auto) 0.600, Neut % (Auto) 85.2 H, Lymph % (Auto) 5.5 L, [place] % (Auto) 8.4, Eos % (Auto) 0.0, Baso % (Auto) 0.3, Absolute Neuts (auto)12.0 H, Absolute Lymphs (auto) 0.77 L, Nucleated RBC % 0, PT 14.2, INR 1.1, APTT26.0, Sodium 139, Potassium 4.5, Chloride 106, Carbon Dioxide 25.0, Anion Gap 8,BUN 21 H, Creatinine 1.15 H, Estim Creat Clear Calc 47.87, Est GFR (MDRD) Af Amer 60, Est GFR (MDRD) Non-Af 49 L, BUN/Creatinine Ratio 18.3, Glucose 484 H*, Calcium 7.9 L, Total Bilirubin 0.60, Direct Bilirubin 0.24, AST 31, ALT 24, Alkaline Phosphatase 60, Total Creatine Kinase 890 H, Total Protein 6.6, Albumin2.7 L, Globulin 3.9, Blood Type B POSITIVE, Antibody Screen NEGATIVE Micro: Microbiology 10/11/23 00:49 Mucosa - Nose SARS-CoV-2, Influenza & RSV (PCR) - Final Radiography Diagnostic Testing: Radiology Impression Brain CT 10/11/23 00:33 IMPRESSION: No acute intracranial finding. Electronically Signed: Anthony Greer MD at 2:19 EST , Chest X-Ray 10/11/23 00:33 IMPRESSION: No acute pulmonary finding. Electronically Signed: Anthony Greer MD at 1:48 EST , Hip/Pelvis X-Ray 10/11/23 00:33 IMPRESSION: Acute comminuted left femoral intertrochanteric fracture with varus angulation. No pelvic fracture. Electronically Signed: Anthony Greer MD at 2:02 EST , Rhythm Strip Rhythm Strip: Sinus Tach Ectopy: None Physical Exam Const alert and oriented x3 Constitutional Narrative: frail, in moderate distress. General Appearance: cooperative HEENT normocephalic and head/scalp atraumatic Mouth: dry mucous membranes Eyes PERRL and EOMs intact bilaterally Neck no lymphadenopathy and supple Lymph Lymphatic: no lymphadenopathy noted and no lymphedema noted Resp Resp Narrative: diminished breath sounds bibasally, no wheezes or crackles. On 2L of oxygen by nasal canula Cardio regular rate, regular rhythm, S1 normal heart sound, S2 normal heart sound and no murmurs GI normal to inspection, nondistended, normoactive bowel sounds, soft to palpation and non-tender Extremity normal capillary refill and no clubbing, cyanosis or edema Extremity Narrative: LLE in traction Skin General Skin Exam: no breakdown Neuro CN's II-XII intact bilaterally and no focal motor deficits Motor Exam: general weakness Psych thought process normal and cooperative Assessment & Plan Assessment/Plan (1) Closed left hip fracture: QUALIFIERS: Encounter type: initial encounter Qualified Code(s): S72.002A - Fracture of unspecified part of neck of left femur, initial encounterfor closed fracture (2) Rhabdomyolysis: QUALIFIERS: Rhabdomyolysis type: traumatic Encounter type: initial encounter Qualified Code(s): T79.6XXA - Traumatic ischemia of muscle, initial encounter PLAN: Plan #Acute comminuted left hip fracture due to mechanical fall * fell at home and was on the floor for about 24 hours * LLE currently in traction * on PO tylenol, PO oxycodone and IV morphine prn for pain * PT/OT on board * general surgery on board * fall precautions * being hydrated with iVF * NSQIP risk calculator showed that she was at below average risk for serious complication and on average risk for any complication. Patient seen and risk stratified as moderate risk for surgery/ * #Rhabdomyolysis due to mechanical fall * CPK was greater than 9000. Being hydrated with IV fluids. Will trend CPK. #Hyperglycemia in the setting of type 2 diabetes mellitus with neuropathy * Blood sugars at 498 this morning. On U-500 humulin 75 units twice daily. * Insulin sliding scale. currently NPO for surgery * Given a subcu dose of 20 units of lispro this morning. * #Hyperlipidemia: On statin #Benign essential hypertension: IV hydralazine as needed. On hydrochlorothiazide and losartan. Also on verapamil and metoprolol. #History of gastroparesis with G-tube insertion: Stable #Depression: On Lexapro DVT prophylaxis: Lovenox. Charges/Coding Visit Charges Inpatient E&M: 93946 Subs Hosp L3 10/11/23 1625 <Electronically signed by Aaliyah Tubbs MD> Aaliyah Tubbs MD Cosigner Signature (if applicable): CC: ~ Signed [facility] Work Phone: 1(301) 522-930102-27-2024 Consult note Author Scott Sutton [facility] October 11, 2023 1:28pm Note Date/Time October 11, 2023 1:29pm [facility] Medical Records Department [address] [place] [address] Consultation - Orthopedics 10/11/23 1323 MR#: [id number] Acct: [id number] Name: MANISHA KEITH Rep #:[id number] : 1950 73 From: Scott Greer PCP: Dr. Ilir Hernández MD Status:ADM I N Location: [place] [address] HPI Consult Data Date of Consult: 10/11/23 HPI Narrative HPI Narrative: MANISHA KEITH, is a 73 F who presents after falling 2 days ago injuring her left hip. Patient states she was up on a chair. She was trying to get something off her refrigerator. She ultimately was found to have a hip fracture. She was brought to the hospital. She was evaluated by the emergency room doctor. She was evaluated by the hospitalist. Patient was admitted with adiagnosis of a hip fracture. Orthopedics was consulted. She has been evaluatednow by the anesthesia department as well. Patient states she had no significantleft hip pain prior to falling. Does have a history of Breast cancer without any known metastatic process [facility] Medical History Allergic rhinitis Anxiety Arthritis Asthma Asthma Back problem Breast cancer Breast lump Calcium deficiency Cancer Cardiology follow-up encounter Carpal tunnel syndrome Cataract Chronic bronchitis Chronic cough COPD (chronic obstructive pulmonary disease) COPD (chronic obstructive pulmonary disease) Diabetes Diabetes Dietary restriction Diverticulosis Easy bruising Essential hypertension Former smoker Former smoker Gall stone Gastrointestinal problem GERD (gastroesophageal reflux disease) History of cervical cancer History of Clostridium difficile infection History of edema History of gastrostomy tube placement History of Holter monitoring History of stress test History of vaginal delivery Hives Hypertension IBS (irritable bowel syndrome) Inflammatory polyarthritis Injury of head and neck Internal hemorrhoids Leg cramps Loss of consciousness MSSA (methicillin susceptible Staphylococcus aureus) pneumonia Neuropathy OAB (overactive bladder) Obesity Osteoarthritis Osteoporosis Osteoporosis Pancreatitis Recurrent infections Restless legs Rhabdomyolysis (04/2017) Seasonal allergies Shortness of breath on exertion Sleep apnea Sleep apnea Urinary incontinence UTI (urinary tract infection) Vision problems Wears dentures Wears glasses Home Medications fluticasone propionate 50 mcg/actuation nasal spray,suspension 1 spray intranasal DAILY PRN NASAL CONGESTION 01/30/14 [History Last Taken 06/20/23] methotrexate sodium 2.5 mg tablet 20 mg PO TEJADA BREAST CANCER 04/16/17 [History Last Taken 06/19/23] albuterol sulfate 90 mcg/actuation aerosol inhaler (ProAir HFA) 2 puff inhalation Q4H PRN SHORTNESS OF BREATH 06/05/21 [History Last Taken Unknown] escitalopram oxalate 10 mg tablet (Lexapro) 10 mg PO DAILY PRN DEPRESSION 06/05/21 [History Last Taken 1 Week Ago ~05/29/21] fluticasone fur. 100 mcg-umeclid 62.5 mcg-vilant 25 mcg inhalat.powder (Trelegy Ellipta) 1 inh inhalation DAILY SHORTNESS OF BREATH 06/05/21 [History Last Taken 1 Week Ago ~05/29/21] folic acid 1 mg tablet 2 mg PO DAILY SUPPLEMENT 06/05/21 [History Last Taken 06/20/23] hydrochlorothiazide 12.5 mg capsule 12.5 mg PO DAILY BLOOD PRESSURE 06/05/21 [History Last Taken 06/20/23] losartan 100 mg tablet 100 mg PO DAILY BLOOD PRESSURE 06/05/21 [History Last Taken 06/20/23] aspirin 81 mg tablet,delayed release (Adult Low Dose Aspirin) 81 mg PO DAILY HEART HEALTH 02/05/22 [History Last Taken 06/20/23] gabapentin 300 mg capsule 300 mg PO QHS NEUROPATHY 02/05/22 [History Last Taken 06/20/23] oxybutynin chloride 10 mg tablet,extended release 24 hr 20 mg PO DAILY OVERACTIVE BLADDER 02/05/22 [History Last Taken 06/20/23] metoprolol succinate 100 mg tablet,extended release 24 hr 100 mg PO DAILY BLOOD PRESSURE 02/24/22 [History Last Taken 06/20/23] esomeprazole magnesium 40 mg capsule,delayed release (Nexium) 40 mg PO DAILY ACID REFLUX 11/26/22 [History Last Taken 06/20/23] loratadine 10 mg tablet 10 mg PO DAILY PRN ALLERGIES 11/26/22 [History Last Taken Unknown] metformin 500 mg tablet,extended release 24 hr 500 mg PO BREAKFAST DIABETES 11/26/22 [History Last Taken Unknown] pen needle, diabetic 32 gauge x 5/32 (BD Ultra-Fine Tish Pen Needle) #100 ea 11/26/22 [Rx Last Taken Unknown] atorvastatin 20 mg tablet 20 mg PO DAILY CHOLESTEROL 06/21/23 [History Last Taken 06/20/23] fexofenadine 180 mg tablet (Nury Allergy) 180 mg PO BID ALLERGIES 06/21/23 [History Last Taken 06/20/23] insulin regular hum U-500 conc 500 unit/mL(3 mL) subcut pen (Humulin R U-500 (Conc) Insulin Kwikpen) 75 unit subcut TIDCM 06/21/23 [History Last Taken 06/21/23] metaxalone 800 mg tablet 800 mg PO TID PRN MUSCLE CRAMPS 06/21/23 [History Last Taken Unknown] verapamil 120 mg tablet,extended release 120 mg PO QHS BLOOD PRESSURE 06/21/23 [History Last Taken 06/20/23] Allergy/AdvReac Type Severity Reaction Status Date / Time JESENIA Inhibitors Allergy Intermediate Cough Verified 10/10/23 23:47 adhesive tape Allergy Intermediate blisters Verified 10/10/23 23:47 dulaglutide [From Trulicity] Allergy Intermediate Gastropares Verified 10/10/23 23:47 is chondroitin sulfate A Allergy Rash Verified 10/10/23 23:47 [From DuoVisc Visco Elastic] hyaluronic acid Allergy Rash Verified 10/10/23 23:47 [From DuoVisc Visco Elastic] NSAIDS (Non-Steroidal Allergy Other Verified 10/10/23 23:47 Anti-Inflamma Family History Other Alcohol abuse Anxiety Arthritis Asthma defect COPD (chronic obstructive pulmonary disease) Cancer Diabetes High cholesterol Hypertension Seizures Surgical History History of appendectomy History of colonoscopy History of hysterectomy History of left mastectomy History of nasal cauterization Social History Smoking Status: Former smoker alcohol intake: current alcohol intake frequency: 0-2 drinks per day substance use type: does not use what type of physical activity do you participate in: none ROS ROS Narrative Patient denies any recent changes to eyes ears nose or throat heart or lungs bowel or bladder. She does have acute left hip pain since she cannot walk. Vital Signs Vital Signs Vital Signs: 10/10/23 23:47 10/10/23 23:54 10/11/23 00:55 Temperature 97.9 F 99.9 F H Temperature Source Temporal Oral Pulse Rate 109 H 114 H 111 H Respiratory Rate 24 H 24 H 30 H Respiratory Effort Respiratory Depth Respiratory Pattern Blood Pressure 156/100 H 156/100 H 226/80 H Blood Pressure Mean 118 118 128 Blood Pressure Source Blood Pressure Position Blood Pressure Location Pulse Ox 93 92 88 Oxygen Delivery Method Room Air Room Air Room Air Oxygen Flow Rate (L/min) 10/11/23 01:05 10/11/23 01:19 10/11/23 02:24 Temperature 99.9 F H Temperature Source Oral Pulse Rate 109 H 105 H 110 H Respiratory Rate 26 H 28 H 19 H Respiratory Effort Respiratory Depth Respiratory Pattern Blood Pressure 226/80 H 175/72 H 174/76 H Blood Pressure Mean 128 106 108 Blood Pressure Source Blood Pressure Position Blood Pressure Location Pulse Ox 91 94 95 Oxygen Delivery Method Room Air Nasal Cannula Room Air Oxygen Flow Rate (L/min) 2 10/11/23 03:18 10/11/23 03:18 10/11/23 04:47 Temperature 99.4 F H 99.4 F H 98.2 F Temperature Source Oral Temporal Pulse Rate 106 H 102 H 103 H Respiratory Rate 24 H 20 H 18 Respiratory Effort Respiratory Depth Respiratory Pattern Blood Pressure 175/90 H 175/90 H 174/73 H Blood Pressure Mean 118 118 106 Blood Pressure Source Monitor Blood Pressure Position Semi-Fowlers Blood Pressure Location Right Arm Pulse Ox 96 96 94 Oxygen Delivery Method Room Air Nasal Cannula Oxygen Flow Rate (L/min) 2 2 10/11/23 05:00 10/11/23 07:41 10/11/23 07:53 Temperature 98.7 F Temperature Source Oral Pulse Rate 114 H Respiratory Rate 18 Respiratory Effort Normal Non-Labored Respiratory Depth Normal Respiratory Pattern Normal Blood Pressure 167/64 H Blood Pressure Mean 98 Blood Pressure Source Monitor Blood Pressure Position Supine Blood Pressure Location Right Arm Pulse Ox 97 Oxygen Delivery Method Nasal Cannula Nasal Cannula Nasal Cannula Oxygen Flow Rate (L/min) 2 2 2 10/11/23 08:15 10/11/23 08:15 10/11/23 10:44 Temperature 99.1 F Temperature Source Oral Pulse Rate 114 H 112 H Respiratory Rate 18 18 Respiratory Effort Respiratory Depth Respiratory Pattern Normal Blood Pressure 175/61 H Blood Pressure Mean 99 Blood Pressure Source Monitor Blood Pressure Position Supine Blood Pressure Location Right Leg Pulse Ox 96 93 Oxygen Delivery Method Nasal Cannula Nasal Cannula Oxygen Flow Rate (L/min) 2 2 10/11/23 11:29 10/11/23 13:00 Temperature Temperature Source Pulse Rate 112 H 102 H Respiratory Rate 16 Respiratory Effort Respiratory Depth Respiratory Pattern Normal Blood Pressure Blood Pressure Mean Blood Pressure Source Blood Pressure Position Blood Pressure Location Pulse Ox Oxygen Delivery Method Oxygen Flow Rate (L/min) Weight Weight: 93.8 kg Body Mass Index (BMI) 38.0 Physical Exam Narrative Patient is lying supine. She has no right hip pain with palpation there. No right hip pain with gentle motion of the right hip. She does have left hip painon palpation. She does have left hip pain with any motion there. She is in Henson's traction. She is able to plantarflex and dorsiflex toes and ankles. No obvious calf pain. ALEXANDER edwards and SCDs on. X-rays and laboratory work reviewed. X-rays AP pelvis AP and lateral left hip shows an intertrochanteric hip fracturewith some displacement. Lesser trochanter is a separate fragment. Lab / Micro Data 10/11/23 06:49 10/11/23 06:49 Labs: Laboratory Results - last 24 hr 10/11/23 00:45: WBC 16.8 H, RBC 4.25, Hgb 13.7, Hct 40.2, MCV 94.6, MCH 32.2 H, MCHC 34.1, RDW Std Deviation 44.8 H, RDW Coeff of Tom 13.2, Plt Count TNP, MPV 11.7, Immature Gran % (Auto) 0.600, Neut % (Auto) 90.6 H, Lymph % (Auto) 3.0 L, [place] % (Auto) 5.5, Eos % (Auto) 0.1, Baso % (Auto) 0.2, Absolute Neuts (auto) 15.2 H, Absolute Lymphs (auto) 0.51 L, Nucleated RBC % 0, Platelet Estimate ADEQUATE, PT Cancelled, INR Cancelled, APTT Cancelled, Sodium 134 L, Potassium 4.6, Chloride 102, Carbon Dioxide 22.0, Anion Gap 10, BUN 18, Creatinine 1.19 H,Estim Creat Clear Calc 46.31, Est GFR (MDRD) Af Amer 57 L, Est GFR (MDRD) Non-Af48 L, BUN/Creatinine Ratio 15.1, Glucose 445 H, Calcium 9.1, Total Bilirubin 0.90, AST 48 H, ALT 24, Alkaline Phosphatase 74, Total Creatine Kinase > 1000 H,Troponin I High Sens 8, Total Protein 7.7, Albumin 3.1 L, Globulin 4.6 H, Albumin/Globulin Ratio 0.7 L 10/11/23 01:05: PT 13.3, INR 1.0, APTT 21.7 L 10/11/23 02:18: Urine Color Yellow, Urine Clarity Clear, Urine pH 5.0, Ur Specific [place] 1.020, Urine Protein 30 H, Urine Glucose (UA) 1000 H, Urine Ketones 50 H, Urine Occult Blood 25 H, Urine Nitrite Negative, Urine Bilirubin Negative, Urine Urobilinogen Normal, Ur Leukocyte Esterase Negative, Urine RBC 0-5 SEEN, Urine WBC 0 SEEN, Ur Squamous Epith Cells 0-5 SEEN, Urine Bacteria 0 SEEN, Urine Mucus 0 SEEN 10/11/23 06:49: WBC 14.1 H, RBC 3.56 L, Hgb 11.4 L, Hct 34.3 L, MCV 96.3, MCH 32.0, MCHC 33.2, RDW Std Deviation 46.5 H, RDW Coeff of Tom 13.2, Plt Count 203,MPV 9.8, Immature Gran % (Auto) 0.600, Neut % (Auto) 85.2 H, Lymph % (Auto) 5.5 L, [place] % (Auto) 8.4, Eos % (Auto) 0.0, Baso % (Auto) 0.3, Absolute Neuts (auto)12.0 H, Absolute Lymphs (auto) 0.77 L, Nucleated RBC % 0, PT 14.2, INR 1.1, APTT26.0, Sodium 139, Potassium 4.5, Chloride 106, Carbon Dioxide 25.0, Anion Gap 8,BUN 21 H, Creatinine 1.15 H, Estim Creat Clear Calc 47.87, Est GFR (MDRD) Af Amer 60, Est GFR (MDRD) Non-Af 49 L, BUN/Creatinine Ratio 18.3, Glucose 484 H*, Calcium 7.9 L, Total Bilirubin 0.60, Direct Bilirubin 0.24, AST 31, ALT 24, Alkaline Phosphatase 60, Total Creatine Kinase 890 H, Total Protein 6.6, Albumin 2.7 L, Globulin 3.9, Blood Type B POSITIVE, Antibody Screen NEGATIVE 10/11/23 11:27: POC Glucose 372 H Micro: Microbiology 10/11/23 00:49 Mucosa - Nose SARS-CoV-2, Influenza & RSV (PCR) - Final Rhythm Strip Rhythm Strip: Sinus Tach Ectopy: None Imaging Radiology Impression Brain CT 10/11/23 00:33 IMPRESSION: No acute intracranial finding. Electronically Signed: Anthony Greer MD at 2:19 EST , Chest X-Ray 10/11/23 00:33 IMPRESSION: No acute pulmonary finding. Electronically Signed: Anthony Greer MD at 1:48 EST , Hip/Pelvis X-Ray 10/11/23 00:33 IMPRESSION: Acute comminuted left femoral intertrochanteric fracture with varus angulation. No pelvic fracture. Electronically Signed: Anthony Greer MD at 2:02 EST , Assessment & Plan Assessment/Plan (1) Closed left hip fracture: QUALIFIERS: Encounter type: initial encounter Qualified Code(s): S72.002A - Fracture of unspecified part of neck of left femur, initial encounterfor closed fracture PLAN: Her diagnosis and treatment options discussed with her at length. After explaining risk benefits and alternative procedure she would wish to proceed with surgery. She understands we are planning internal fixation. She understands she is at increased risk based on her medical comorbidities including obesity diabetes history of breast cancer, hypertension, etc. Risk of surgery including but not limited to from operative or postoperative complications. Risk of anesthetic complications such as heart attacks, strokes, seizures, or . Risk of infections. Risk of damage to nerves arteries tendons. Risk of inadvertent fractures or dislocations. Risk of bone or wound healing complications. Possibility of nonunion malunion pain stiffness weakness. Possible need for further surgery such as hardware removal. Risk of DVT PE and other potential complications could lead to or disability explained. No guarantees were stated or implied. All of their questions were answered. Appropriate informed consent was obtained and signed for surgical intervention. We will plan Ancef for perioperative antibiotic. We will plan aspirin for postoperative DVT prevention. Patient is hoping to be discharged to her daughter's house. Social service will be consulted. This note was generated with [email or web address] software. It may contain incorrect words, spelling, and punctuation that were not noted in checking the note before signing. 10/11/23 1328 <Electronically signed by Scott Sutton MD> Cosigner Signature (if applicable): CC: Dr. Anthony Singleton DO; Dr. Scott Sutton MD; Dr. Ilir Hernández MD~ Signed [facility] Work Phone: [phone]) 692-842402-27-2024 Procedure [facility] 10-11-2023 History and physical note Author Anthony Ramsay [facility] October 11, 2023 6:40am Note Date/Time October 11, 2023 3:04am [facility] Medical Records Department [address] [place] [id number] H&P Exam - Hospitalist 10/11/23 0245 MR#: [id number] Acct: [id number] Name: MANISHA KEITH Rep #:[id number] : 1950 73 From: Anthony Ordonez DO PCP: Dr. Ilir Hernández MD Status:ADM I N Location: [facility] [place] [id number] HPI - General General Date of Admission: 10/11/23 Date of Service: 10/11/23 Chief Complaint: Left hip pain after fall HPI Narrative MANISHA KEITH, is a 73 F with a past medical history of essential hypertension, hyperlipidemia, obesity; with BMI of 37.9 this admission, obstructive sleep apnea, diabetes mellitus type 2; of unknown control, history of tobacco abuse; with subsequent asthma/COPD, chronic kidney disease; stage I-II, allergic rhinitis, history of colonic diverticulosis, history of gastroparesis; with subsequent G- tube placement, history of UTI, depression, neuropathy, IBS, GERD, osteoporosis and osteoarthritis who presents to [facility] ER complaining of left hip pain after fall. Ms. Keith reports her symptoms began 23:00 hrs. on the evening of October 09, 2023 when she fell on onto her floor landing on her left hip and then subsequently unable to get up for approximately 24 hours. She could not recall exactly how long shehad been on the ground but she and her family noted she had been becoming more weak over the past few days. Patient lives at home alone and she does not take anticoagulation but she does take a daily aspirin. She denies associated head trauma, LOC, fever, chills, nausea, vomiting, cough, dysuria, diarrhea or constipation. In the ER her x-rays were positive for an acute comminuted Left femoral intertrochanteric fracture with varus angulation with an unremarkable chest x- ray and a nonacute head CT complicated by Rhabdomyolysis from prolonged downtime evidenced by CK of >1,000 U/L present on admission and she was then admitted to the general medical floor for ongoing care for stay that is expectedto be greater than 48 hours. [facility] Medical History Allergic rhinitis Anxiety Arthritis Asthma Asthma Back problem Breast cancer Breast lump Calcium deficiency Cancer Cardiology follow-up encounter Carpal tunnel syndrome Cataract Chronic bronchitis Chronic cough COPD (chronic obstructive pulmonary disease) COPD (chronic obstructive pulmonary disease) Diabetes Diabetes Dietary restriction Diverticulosis Easy bruising Essential hypertension Former smoker Former smoker Gall stone Gastrointestinal problem GERD (gastroesophageal reflux disease) History of cervical cancer History of Clostridium difficile infection History of edema History of gastrostomy tube placement History of Holter monitoring History of stress test History of vaginal delivery Hives Hypertension IBS (irritable bowel syndrome) Inflammatory polyarthritis Injury of head and neck Internal hemorrhoids Leg cramps Loss of consciousness MSSA (methicillin susceptible Staphylococcus aureus) pneumonia Neuropathy OAB (overactive bladder) Obesity Osteoarthritis Osteoporosis Osteoporosis Pancreatitis Recurrent infections Restless legs Rhabdomyolysis (04/2017) Seasonal allergies Shortness of breath on exertion Sleep apnea Sleep apnea Urinary incontinence UTI (urinary tract infection) Vision problems Wears dentures Wears glasses Home Medications fluticasone propionate 50 mcg/actuation nasal spray,suspension 1 spray intranasal DAILY PRN NASAL CONGESTION 01/30/14 [History Last Taken 06/20/23] methotrexate sodium 2.5 mg tablet 20 mg PO TEJADA BREAST CANCER 04/16/17 [History Last Taken 06/19/23] albuterol sulfate 90 mcg/actuation aerosol inhaler (ProAir HFA) 2 puff inhalation Q4H PRN SHORTNESS OF BREATH 06/05/21 [History Last Taken Unknown] escitalopram oxalate 10 mg tablet (Lexapro) 10 mg PO DAILY PRN DEPRESSION 06/05/21 [History Last Taken 1 Week Ago ~05/29/21] fluticasone fur. 100 mcg-umeclid 62.5 mcg-vilant 25 mcg inhalat.powder (Trelegy Ellipta) 1 inh inhalation DAILY SHORTNESS OF BREATH 06/05/21 [History Last Taken 1 Week Ago ~05/29/21] folic acid 1 mg tablet 2 mg PO DAILY SUPPLEMENT 06/05/21 [History Last Taken 06/20/23] hydrochlorothiazide 12.5 mg capsule 12.5 mg PO DAILY BLOOD PRESSURE 06/05/21 [History Last Taken 06/20/23] losartan 100 mg tablet 100 mg PO DAILY BLOOD PRESSURE 06/05/21 [History Last Taken 06/20/23] aspirin 81 mg tablet,delayed release (Adult Low Dose Aspirin) 81 mg PO DAILY HEART HEALTH 02/05/22 [History Last Taken 06/20/23] gabapentin 300 mg capsule 300 mg PO QHS NEUROPATHY 02/05/22 [History Last Taken 06/20/23] oxybutynin chloride 10 mg tablet,extended release 24 hr 20 mg PO DAILY OVERACTIVE BLADDER 02/05/22 [History Last Taken 06/20/23] metoprolol succinate 100 mg tablet,extended release 24 hr 100 mg PO DAILY BLOOD PRESSURE 02/24/22 [History Last Taken 06/20/23] esomeprazole magnesium 40 mg capsule,delayed release (Nexium) 40 mg PO DAILY ACID REFLUX 11/26/22 [History Last Taken 06/20/23] loratadine 10 mg tablet 10 mg PO DAILY PRN ALLERGIES 11/26/22 [History Last Taken Unknown] metformin 500 mg tablet,extended release 24 hr 500 mg PO BREAKFAST DIABETES 11/26/22 [History Last Taken Unknown] pen needle, diabetic 32 gauge x 5/32 (BD Ultra-Fine Tish Pen Needle) #100 ea 11/26/22 [Rx Last Taken Unknown] atorvastatin 20 mg tablet 20 mg PO DAILY CHOLESTEROL 06/21/23 [History Last Taken 06/20/23] fexofenadine 180 mg tablet (Nury Allergy) 180 mg PO BID ALLERGIES 06/21/23 [History Last Taken 06/20/23] insulin regular hum U-500 conc 500 unit/mL(3 mL) subcut pen (Humulin R U-500 (Conc) Insulin Kwikpen) 75 unit subcut TIDCM 06/21/23 [History Last Taken 06/21/23] metaxalone 800 mg tablet 800 mg PO TID PRN MUSCLE CRAMPS 06/21/23 [History Last Taken Unknown] verapamil 120 mg tablet,extended release 120 mg PO QHS BLOOD PRESSURE 06/21/23 [History Last Taken 06/20/23] Allergy/AdvReac Type Severity Reaction Status Date / Time JESENIA Inhibitors Allergy Intermediate Cough Verified 10/10/23 23:47 adhesive tape Allergy Intermediate blisters Verified 10/10/23 23:47 dulaglutide [From Trulicity] Allergy Intermediate Gastropares Verified 10/10/23 23:47 is chondroitin sulfate A Allergy Rash Verified 10/10/23 23:47 [From DuoVisc Visco Elastic] hyaluronic acid Allergy Rash Verified 10/10/23 23:47 [From DuoVisc Visco Elastic] NSAIDS (Non-Steroidal Allergy Other Verified 10/10/23 23:47 Anti-Inflamma Family History Other Alcohol abuse Anxiety Arthritis Asthma defect COPD (chronic obstructive pulmonary disease) Cancer Diabetes High cholesterol Hypertension Seizures Surgical History History of appendectomy History of colonoscopy History of hysterectomy History of left mastectomy History of nasal cauterization Social History Smoking Status: Former smoker alcohol intake: current alcohol intake frequency: 0-2 drinks per day substance use type: does not use what type of physical activity do you participate in: none ROS ROS Narrative Review of systems: General: Patient admits to chills but denies fevers. HENT: Denies headache, denies stuffy nose, denies sore throat EYES: Denies changes in vision or discharge from eyes. Resp: Denies cough, denies shortness of breath Cardiac: Denies chest pain GI: Denies abdominal pain, denies changes in bowel, denies nausea or vomiting : Denies changes in urination Extremity: Denies swelling Musculoskeletal: Feels somewhat generally weak and unwell Neuro: Denies any numbness/tingling Heme: Denies any bleeding or bruising Skin: Denies rashes Psychiatric: Patient is extremely anxious Endocrine: No polyuria, polydipsia or polyphagia. The rest of the 14 point ROS was negative except for positives in HPI. Vital Signs Vital Signs Vital Signs: 10/10/23 23:47 10/10/23 23:54 10/11/23 00:55 Temperature 97.9 F 99.9 F H Temperature Source Temporal Oral Pulse Rate 109 H 114 H 111 H Respiratory Rate 24 H 24 H 30 H Blood Pressure 156/100 H 156/100 H 226/80 H Blood Pressure Mean 118 118 128 Pulse Ox 93 92 88 Oxygen Delivery Method Room Air Room Air Room Air Oxygen Flow Rate (L/min) 10/11/23 01:05 10/11/23 01:19 10/11/23 02:24 Temperature 99.9 F H Temperature Source Oral Pulse Rate 109 H 105 H 110 H Respiratory Rate 26 H 28 H 19 H Blood Pressure 226/80 H 175/72 H 174/76 H Blood Pressure Mean 128 106 108 Pulse Ox 91 94 95 Oxygen Delivery Method Room Air Nasal Cannula Room Air Oxygen Flow Rate (L/min) 2 Weight Weight: 207 lb 3.752 oz Body Mass Index (BMI) 37.9 Physical Exam Const alert, oriented x3, no apparent distress, average body habitus and healthy appearing General Appearance: cooperative HEENT normocephalic, head/scalp atraumatic and hearing grossly normal bilaterally HEENT Narrative: Mucous membranes dry. Eyes PERRL and EOMs intact bilaterally Neck no lymphadenopathy and supple Resp normal respiratory effort, no retractions, no use of accessory muscles and clearto auscultation bilaterally Cardio regular rate and regular rhythm GI normal to inspection, nondistended, normoactive bowel sounds, soft to palpation,non-tender and non-distended Extremity Extremity Narrative: Left lower extremity shortened and externally rotated with no signs of vascular compromise. Skin Skin Narrative: Patient has no evidence of rash at this time. Neuro oriented x3, CN's II-XII intact bilaterally, moves all extremities and no focal motor deficits Sensorium / Orientation: awake, alert, oriented to person, oriented to place andoriented to time Speech: speech normal Psych Mood & Affect: anxious Results Medical Records Data Attestation: I reviewed the patient's medical records Lab / Micro Data Attestation: I reviewed the patient's lab results. 10/11/23 00:45 10/11/23 00:45 Labs: Laboratory Results - last 24 hr 10/11/23 00:45: WBC 16.8 H, RBC 4.25, Hgb 13.7, Hct 40.2, MCV 94.6, MCH 32.2 H, MCHC 34.1, RDW Std Deviation 44.8 H, RDW Coeff of Tom 13.2, Plt Count 227, MPV 11.7, Immature Gran % (Auto) 0.600, Neut % (Auto) 90.6 H, Lymph % (Auto) 3.0 L, [place] % (Auto) 5.5, Eos % (Auto) 0.1, Baso % (Auto) 0.2, Absolute Neuts (auto) 15.2 H, Absolute Lymphs (auto) 0.51 L, Nucleated RBC % 0, PT Cancelled, INR Cancelled, APTT Cancelled, Sodium 134 L, Potassium 4.6, Chloride 102, Carbon Dioxide 22.0, Anion Gap 10, BUN 18, Creatinine 1.19 H, Estim Creat Clear Calc 46.31, Est GFR (MDRD) Af Amer 57 L, Est GFR (MDRD) Non-Af 48 L, BUN/Creatinine Ratio 15.1, Glucose 445 H, Calcium 9.1, Total Bilirubin 0.90, AST 48 H, ALT 24, Alkaline Phosphatase 74, Total Creatine Kinase > 1000 H, Troponin I High Sens 8,Total Protein 7.7, Albumin 3.1 L, Globulin 4.6 H, Albumin/Globulin Ratio 0.7 L 10/11/23 01:05: PT 13.3, INR 1.0, APTT 21.7 L 10/11/23 02:18: Urine Color Yellow, Urine Clarity Clear, Urine pH 5.0, Ur Specific [place] 1.020, Urine Protein 30 H, Urine Glucose (UA) 1000 H, Urine Ketones 50 H, Urine Occult Blood 25 H, Urine Nitrite Negative, Urine Bilirubin Negative, Urine Urobilinogen Normal, Ur Leukocyte Esterase Negative Micro: Microbiology 10/11/23 00:49 Mucosa - Nose SARS-CoV-2, Influenza & RSV (PCR) - Final Imaging Radiology Impression Brain CT 10/11/23 00:33 IMPRESSION: No acute intracranial finding. Electronically Signed: Anthony Greer MD at 2:19 EST , Chest X-Ray 10/11/23 00:33 IMPRESSION: No acute pulmonary finding. Electronically Signed: Anthony Greer MD at 1:48 EST , Hip/Pelvis X-Ray 10/11/23 00:33 IMPRESSION: Acute comminuted left femoral intertrochanteric fracture with varus angulation. No pelvic fracture. Electronically Signed: Anthony Greer MD at 2:02 EST , Assessment & Plan Assessment/Plan (1) Closed left hip fracture: QUALIFIERS: Encounter type: initial encounter Qualified Code(s): S72.002A - Fracture of unspecified part of neck of left femur, initial encounterfor closed fracture (2) Rhabdomyolysis: QUALIFIERS: Rhabdomyolysis type: traumatic Encounter type: initial encounter Qualified Code(s): T79.6XXA - Traumatic ischemia of muscle, initial encounter PLAN: Plan 1. Acute comminuted Left femoral intertrochanteric fracture with varus angulation after mechanical fall in the setting of known osteoporosis - Admit togeneral medical floor. Place [place]. Also placed left lower extremity in 5 pounds Henson's traction. Give Tylenol as needed mild to moderate level 1-5 out of 10 pain or fever. Give morphine IV as needed for severe level 6-10 out of 10pain. Finally, we will consult orthopedic surgeon on-call to see this patient on rounds in the a.m. for further recommendations regarding ORIF with help appreciated in advance. 2. Acute Rhabdomyolysis with CK of greater than 1,000 U/L present on admission due to prolonged downtime complicating #1 - Volume resuscitate and recheck CK and BMP in the a.m. to follow trend 3. Obesity; with BMI of 37.9 this admission plus obstructive sleep apnea - Weight loss will be recommended. Continue nocturnal CPAP. 4. Essential hypertension - Continue home regimen plus give as needed IV hydralazine for systolic blood pressure greater than 160 mmHg. 5. Hyperlipidemia - Resume statin. 6. Diabetes mellitus type 2; of unknown control - Keep n.p.o. for now with impending ORIF. Fingerstick blood sugar every 6 hours. 7. History of tobacco abuse; with subsequent asthma/COPD - Stable with no evidence of acute flare. Continue as needed nebulizers. 8. Chronic kidney disease; stage I-II - Stable. 9. Allergic rhinitis - Noted. 10. History of colonic diverticulosis - Noted. 11. History of gastroparesis; with subsequent G-tube placement - Noted. 12. History of UTI - Noted. 13. Depression - Continue home regimen. 14. Neuropathy - Stable. 15. IBS - Noted. 16. GERD - Stable. 17. Osteoarthritis - Stable. 18. DVT prophylaxis - We we will avoid heparin and heparinoid's in cases of traumatic fracture due to increased risk of bleeding complications. Orthopedic surgeon to decide upon postoperative DVT regimen. Total time: Approximately 55 minutes. Charges/Coding Visit Charges Inpatient E&M: 46513 Init Hosp L2 10/11/23 0640 <Electronically signed by Anthony Singleton DO> Cosigner Signature (if applicable): CC: Dr. Anthony Singleton DO; Dr. Ilir Hernández MD~ Signed [facility] Work Phone: [phone] Discharge summary Author Loulou [facility] October 11, 2023 3:42am Note Date/Time October 11, 2023 12:51am [facility] Medical Records Department [address] [place] [id number] Emergency Department Summary 10/11/23 MR#: [id number] Acct: [id number] Name: MANISHA KEITH Rep #:[id number] : 1950 73 From: Loulou Maguire PCP: Dr. Ilir Hernández MD Status:REG E R Location: ED HPI History of Present Illness Chief Complaint: Lower Extremity Injury Informant: patient and family Narrative Narrative: Patient is 73-year-old female with history of CKD, gastroparesis, type 2 diabetes mellitus, GERD, hypertension and UTI presenting from home via EMS afterfall, left hip pain. Patient does not recall why she fell or how she fell. Shetold EMS that she was on the floor since 11:00 last night (about 24 hours). Shecould not recall how long she was on the ground when I spoke with her. She is not on any anticoagulation but does take aspirin daily. Family notes that she has been more weak and seemingly under the weather for the past few weeks. Has had a cough. Patient denies any chest pain, abdominal pain or GI/ symptoms. Is only complaining of feeling cold and having left hip pain. No other complaints or concerns at this time. Patient lives home alone. Does not use any assistive devices at baseline. [facility] Medical History Allergic rhinitis Anxiety Arthritis Asthma Asthma Back problem Breast cancer Breast lump Calcium deficiency Cancer Cardiology follow-up encounter Carpal tunnel syndrome Cataract Chronic bronchitis Chronic cough COPD (chronic obstructive pulmonary disease) COPD (chronic obstructive pulmonary disease) Diabetes Diabetes Dietary restriction Diverticulosis Easy bruising Essential hypertension Former smoker Former smoker Gall stone Gastrointestinal problem GERD (gastroesophageal reflux disease) History of cervical cancer History of Clostridium difficile infection History of edema History of gastrostomy tube placement History of Holter monitoring History of stress test History of vaginal delivery Hives Hypertension IBS (irritable bowel syndrome) Inflammatory polyarthritis Injury of head and neck Internal hemorrhoids Leg cramps Loss of consciousness MSSA (methicillin susceptible Staphylococcus aureus) pneumonia Neuropathy OAB (overactive bladder) Obesity Osteoarthritis Osteoporosis Osteoporosis Pancreatitis Recurrent infections Restless legs Rhabdomyolysis (04/2017) Seasonal allergies Shortness of breath on exertion Sleep apnea Sleep apnea Urinary incontinence UTI (urinary tract infection) Vision problems Wears dentures Wears glasses Home Medications fluticasone propionate 50 mcg/actuation nasal spray,suspension 1 spray intranasal DAILY PRN NASAL CONGESTION 01/30/14 [History Last Taken 06/20/23] methotrexate sodium 2.5 mg tablet 20 mg PO TEJADA BREAST CANCER 04/16/17 [History Last Taken 06/19/23] albuterol sulfate 90 mcg/actuation aerosol inhaler (ProAir HFA) 2 puff inhalation Q4H PRN SHORTNESS OF BREATH 06/05/21 [History Last Taken Unknown] escitalopram oxalate 10 mg tablet (Lexapro) 10 mg PO DAILY PRN DEPRESSION 06/05/21 [History Last Taken 1 Week Ago ~05/29/21] fluticasone fur. 100 mcg-umeclid 62.5 mcg-vilant 25 mcg inhalat.powder (Trelegy Ellipta) 1 inh inhalation DAILY SHORTNESS OF BREATH 06/05/21 [History Last Taken 1 Week Ago ~05/29/21] folic acid 1 mg tablet 2 mg PO DAILY SUPPLEMENT 06/05/21 [History Last Taken 06/20/23] hydrochlorothiazide 12.5 mg capsule 12.5 mg PO DAILY BLOOD PRESSURE 06/05/21 [History Last Taken 06/20/23] losartan 100 mg tablet 100 mg PO DAILY BLOOD PRESSURE 06/05/21 [History Last Taken 06/20/23] aspirin 81 mg tablet,delayed release (Adult Low Dose Aspirin) 81 mg PO DAILY HEART HEALTH 02/05/22 [History Last Taken 06/20/23] gabapentin 300 mg capsule 300 mg PO QHS NEUROPATHY 02/05/22 [History Last Taken 06/20/23] oxybutynin chloride 10 mg tablet,extended release 24 hr 20 mg PO DAILY OVERACTIVE BLADDER 02/05/22 [History Last Taken 06/20/23] metoprolol succinate 100 mg tablet,extended release 24 hr 100 mg PO DAILY BLOOD PRESSURE 02/24/22 [History Last Taken 06/20/23] esomeprazole magnesium 40 mg capsule,delayed release (Nexium) 40 mg PO DAILY ACID REFLUX 11/26/22 [History Last Taken 06/20/23] loratadine 10 mg tablet 10 mg PO DAILY PRN ALLERGIES 11/26/22 [History Last Taken Unknown] metformin 500 mg tablet,extended release 24 hr 500 mg PO BREAKFAST DIABETES 11/26/22 [History Last Taken Unknown] pen needle, diabetic 32 gauge x 5/32 (BD Ultra-Fine Tish Pen Needle) #100 ea 11/26/22 [Rx Last Taken Unknown] atorvastatin 20 mg tablet 20 mg PO DAILY CHOLESTEROL 06/21/23 [History Last Taken 06/20/23] fexofenadine 180 mg tablet (Nury Allergy) 180 mg PO BID ALLERGIES 06/21/23 [History Last Taken 06/20/23] insulin regular hum U-500 conc 500 unit/mL(3 mL) subcut pen (Humulin R U-500 (Conc) Insulin Kwikpen) 75 unit subcut TIDCM 06/21/23 [History Last Taken 06/21/23] metaxalone 800 mg tablet 800 mg PO TID PRN MUSCLE CRAMPS 06/21/23 [History Last Taken Unknown] verapamil 120 mg tablet,extended release 120 mg PO QHS BLOOD PRESSURE 06/21/23 [History Last Taken 06/20/23] Allergy/AdvReac Type Severity Reaction Status Date / Time JESENIA Inhibitors Allergy Intermediate Cough Verified 10/10/23 23:47 adhesive tape Allergy Intermediate blisters Verified 10/10/23 23:47 dulaglutide [From Trulicity] Allergy Intermediate Gastropares Verified 10/10/23 23:47 is chondroitin sulfate A Allergy Rash Verified 10/10/23 23:47 [From DuoVisc Visco Elastic] hyaluronic acid Allergy Rash Verified 10/10/23 23:47 [From DuoVisc Visco Elastic] NSAIDS (Non-Steroidal Allergy Other Verified 10/10/23 23:47 Anti-Inflamma Family History Other Alcohol abuse Anxiety Arthritis Asthma defect COPD (chronic obstructive pulmonary disease) Cancer Diabetes High cholesterol Hypertension Seizures Surgical History History of appendectomy History of colonoscopy History of hysterectomy History of left mastectomy History of nasal cauterization Social History Smoking Status: Former smoker alcohol intake: current alcohol intake frequency: 0-2 drinks per day substance use type: does not use what type of physical activity do you participate in: none ROS ROS ED Constitutional Constitutional ED: Reports chills; Denies fever(s) ENT ENT ED: Denies rhinorrhea Cardiovascular Cardiovascular: Denies chest pain Respiratory/Chest Respiratory/Chest: Denies cough Gastrointestinal Gastrointestinal: Denies abdominal pain, diarrhea, nausea or vomiting Genitourinary Genitourinary ED: Denies dysuria Musculoskeletal Musculoskeletal: Reports other Details: left hip pain Integumentary Denies rash Neurologic Neurologic: Denies headache(s), paresthesias or weakness Psychiatric Psychiatric: Denies anxiety Hematologic/Lymphatic Hematologic/Lymphatic: Denies easy bleeding or easy bruising EXAM Physical Exam Const Vital Signs: 10/10/23 23:47 10/10/23 23:54 10/11/23 00:55 Temperature 97.9 F 99.9 F H Temperature Source Temporal Oral Pulse Rate 109 H 114 H 111 H Respiratory Rate 24 H 24 H 30 H Blood Pressure 156/100 H 156/100 H 226/80 H Blood Pressure Mean 118 118 128 Pulse Ox 93 92 88 Oxygen Delivery Method Room Air Room Air Room Air Oxygen Flow Rate (L/min) 10/11/23 01:05 10/11/23 01:19 10/11/23 02:24 Temperature 99.9 F H Temperature Source Oral Pulse Rate 109 H 105 H 110 H Respiratory Rate 26 H 28 H 19 H Blood Pressure 226/80 H 175/72 H 174/76 H Blood Pressure Mean 128 106 108 Pulse Ox 91 94 95 Oxygen Delivery Method Room Air Nasal Cannula Room Air Oxygen Flow Rate (L/min) 2 10/11/23 03:18 10/11/23 03:18 Temperature 99.4 F H 99.4 F H Temperature Source Oral Pulse Rate 106 H 102 H Respiratory Rate 24 H 20 H Blood Pressure 175/90 H 175/90 H Blood Pressure Mean 118 118 Pulse Ox 96 96 Oxygen Delivery Method Room Air Oxygen Flow Rate (L/min) 2 Positive well nourished and well developed General Appearance ED: well developed HEENT Reports dry mucous membranes Negative for trauma Mouth ED: Yes dry mucous membranes Mouth: dry mucous membranes Eyes PERRL and EOMs intact bilaterally General Eye ED: Negative for pale conjunctiva Neck supple and no JVD General: Negative for tenderness Chest Wall inspection of chest normal and palpation of chest normal Resp normal respiratory effort and clear to auscultation bilaterally Cardio regular rhythm and no murmurs Rate: tachycardic GI normal to inspection, nondistended, normoactive bowel sounds and non-tender Palpation: Negative for guarding Extremity Extremity Narrative: Tenderness to palpation over the left hip. Left lower extremity shortened and externally rotated. Neuro Neuro Narrative: Oriented x 2 Sensorium / Orientation: alert Motor Exam: general weakness Psych mental status grossly normal Skin no rashes or lesions noted and no wounds MDM MDM MDM Narrative Medical decision making narrative: Patient evaluated for left hip pain and prolonged time on the ground as well as fall of unknown cause. On arrival patient is hypertensive and tachycardic. Sheis mentating relatively well and clinically appears quite dehydrated. Differential includes intracranial hemorrhage, closed head injury, hip fracture,rhabdomyolysis, MORIAH, arrhythmia and acute infection. Patient is given IV fluids and morphine initially in the emergency room. She isalso given a dose of Zofran for nausea. CBC does show leukocytosis however it is unclear if this is reactive associated with her acute trauma prolonged immobilization versus infectious. Her hemoglobin is normal at 13.7 making subacute hemorrhage less likely. CMP shows mildly elevated creatinine 1.19 which is near her baseline but is largely normal. She is hyperglycemic with a glucose of 445 but she has a normal anion gap. Patient is a significantly elevated CK level of greater than 1000 consistent with her clinical presentation. Urinalysis is not consistent with infection at this time. CT of the brain does not show any acute process. Chest x-ray reviewed by myselfdoes not show any acute process. Left hip x-ray reviewed by myself as well as radiology shows acute comminuted left femoral intertrochanteric fracture with varus angulation and no pelvic fracture. Case discussed with Ortho on-call, Dr. Sutton, who recommends n.p.o. and will see the patient in the morning to evaluate for surgical repair. Case is discussed with admitting physician, Dr. Johnson who accepts the patient to the medicine service. Patient continues to be tachycardic and hypertensive in the ER and is given a dose of labetalol in the ER. Does have improvement of pain with morphine in the emergency room. Lab Data Attestation: I reviewed the patient's lab results. Labs: Laboratory Results - last 24 hr 10/11/23 10/11/23 10/11/23 00:45 01:05 02:18 WBC 16.8 H RBC 4.25 Hgb 13.7 Hct 40.2 MCV 94.6 MCH 32.2 H MCHC 34.1 RDW Std Deviation 44.8 H RDW Coeff of Tom 13.2 Plt Count TNP MPV 11.7 Immature Gran % (Auto) 0.600 Neut % (Auto) 90.6 H Lymph % (Auto) 3.0 L [place] % (Auto) 5.5 Eos % (Auto) 0.1 Baso % (Auto) 0.2 Absolute Neuts (auto) 15.2 H Absolute Lymphs (auto) 0.51 L Nucleated RBC % 0 Platelet Estimate ADEQUATE PT Cancelled 13.3 INR Cancelled 1.0 APTT Cancelled 21.7 L Sodium 134 L Potassium 4.6 Chloride 102 Carbon Dioxide 22.0 Anion Gap 10 BUN 18 Creatinine 1.19 H Estim Creat Clear Calc 46.31 Est GFR (MDRD) Af Amer 57 L Est GFR (MDRD) Non-Af 48 L BUN/Creatinine Ratio 15.1 Glucose 445 H Calcium 9.1 Total Bilirubin 0.90 AST 48 H ALT 24 Alkaline Phosphatase 74 Total Creatine Kinase > 1000 H Troponin I High Sens 8 Total Protein 7.7 Albumin 3.1 L Globulin 4.6 H Albumin/Globulin Ratio 0.7 L Urine Color Yellow Urine Clarity Clear Urine pH 5.0 Ur Specific [place] 1.020 Urine Protein 30 H Urine Glucose (UA) 1000 H Urine Ketones 50 H Urine Occult Blood 25 H Urine Nitrite Negative Urine Bilirubin Negative Urine Urobilinogen Normal Ur Leukocyte Esterase Negative Urine RBC 0-5 SEEN Urine WBC 0 SEEN Ur Squamous Epith Cells 0-5 SEEN Urine Bacteria 0 SEEN Urine Mucus 0 SEEN Radiography Chest X-Ray - ED: 1 View, Read by ED Physician, Read by Radiologist and No AcuteDisease Diagnostic Testing: Clinical Impression(s) from Imaging Studies Brain CT 10/11/23 00:33 IMPRESSION: No acute intracranial finding. Electronically Signed: Anthony Greer MD at 2:19 EST , Chest X-Ray 10/11/23 00:33 IMPRESSION: No acute pulmonary finding. Electronically Signed: Anthony Greer MD at 1:48 EST , Hip/Pelvis X-Ray 10/11/23 00:33 IMPRESSION: Acute comminuted left femoral intertrochanteric fracture with varus angulation. No pelvic fracture. Electronically Signed: Anthony Greer MD at 2:02 EST , Rhythm Strip Rhythm Strip: Sinus Tach Ectopy: None EKG Initial EKG: Attestation: I personally reviewed and interpreted this EKG as follows: Interpretation: Sinus Tachycardia Comments: Sinus tachycardia rate 110 bpm Left axis deviation Normal intervals Normal ST segments No significant change compared to prior EKG on 06/21/2023 Management Discussion w/another healthcare provider: Hospitalist and [employer] Access Developer Discharge Plan Triage Chief Complaint: Lower Extremity Injury ED Provider: Loulou Buenrostro Dx/Rx/DC Orders Clinical Impression: Diabetes mellitus, type II, Rhabdomyolysis, Essential hypertension, Closed lefthip fracture Prescriptions: No Action hydrochlorothiazide 12.5 mg capsule 12.5 mg PO DAILY gabapentin 300 mg capsule 300 mg PO QHS metoprolol succinate 100 mg tablet extended release 24 hr 100 mg PO DAILY oxybutynin chloride 10 mg tablet extended release 24hr 20 mg PO DAILY aspirin [Adult Low Dose Aspirin] 81 mg tablet,delayed release (DR/EC) 81 mg PO DAILY loratadine 10 mg tablet 10 mg PO DAILY PRN (Reason: ALLERGIES ) (DME) pen needle, diabetic [BD Ultra-Fine Tish Pen Needle] 32 gauge x 5/32 needle See Rx Instructions .ROUTE .MEDSUPPLY Qty: 100 5RF Rx Instructions: tid metformin 500 mg tablet extended release 24 hr 500 mg PO BREAKFAST Patient Comments: COUPLE OF WEEKS SINCE LAST TAKEN. PT STATES THEY RAN OUT AND THAT THEY DO NOTLIKE TAKING IT BECAUSE OF ALL THE BAD THINGS THEY HAVE HEARD ABOUT IT fluticasone propionate 1 SPRAY spray,suspension 1 spray intranasal DAILY PRN (Reason: NASAL CONGESTION ) methotrexate sodium 2.5 MG tablet 20 mg PO TEJADA Hold Instructions: Resume on 06/29/23. Hold until finished with augmentin folic acid 1 mg tablet 2 mg PO DAILY albuterol sulfate [ProAir HFA] 90 mcg/actuation Hfa Aerosol Inhaler 2 puff INHALATION Q4H PRN (Reason: SHORTNESS OF BREATH ) losartan 100 mg tablet 100 mg PO DAILY escitalopram oxalate [Lexapro] 10 mg tablet 10 mg PO DAILY PRN (Reason: DEPRESSION ) Trelegy Ellipta 100-62.5-25 mcg blister with device 1 inh INHALATION DAILY Patient Comments: PT STATES THEY WERE TOLD BY A DOCTOR TO STOP USING THIS TEMPORARILY BECAUSE THEY BELIEVE THE PT MIGHT BE ALLERGIC TO THIS INHALER. esomeprazole magnesium [Nexium] 40 mg capsule,delayed release(DR/EC) 40 mg PO DAILY atorvastatin 20 mg tablet 20 mg PO DAILY Humulin R U-500 (Conc) Kwikpen 500 unit/mL (3 mL) insulin pen 75 unit subcut TIDCM Rx Instructions: 70 BREAKFAST 70 LUNCH 40 DINNER verapamil 120 mg tablet extended release 120 mg PO QHS metaxalone 800 mg tablet 800 mg PO TID PRN (Reason: MUSCLE CRAMPS) fexofenadine [Nury Allergy] 180 mg tablet 180 mg PO BID Primary Care Provider: Ilir Hernández Referrals: Ilir Hernández MD [Primary Care Provider] - Disposition Disposition: Acute Care Hospital [facility] What to do if you have Problems For any increased pain, shortness of breath, bleeding, nausea or vomiting, chestpain, or any unexpected problems, contact your Primary Care Provider. Call [facility] ([phone]) or report to the closest Emergency Room. Call 911 if necessary. 10/11/23341 <Electronically signed by Loulou Buenrostro DO> Cosigner Signature (if applicable): CC: Dr. Ilir Hernández MD ~ Signed [facility] Work Phone: [phone]) 459-527502-23-2024 Telephone encounter Note* Telephone Encounter - Cristy Phillips OCCA - 10/07/2023 11:45 AM EST [place] in [place] [facility] [place] [phone][place] asking that results of nocturnal oximetry be faxed so patient can receive ordered O2 therapy. After reviewing patients chart, seems oximetry testing was ordered 09/19 but was not faxed [place] [facility] Order has now been faxed and Oksana will reach out to patient to schedule testing. Once completed, Oksana will fax results to office for provider to review as well as oxygen orders to be signed. RUBIA Guerra [facility]02-23-2024 Miscellaneous Notes* Telephone Encounter - Mariia Mart LPN - 10/07/2023 8:48 AM EST See telephone encounter with EB and E-consult with Dr. Eldridge. Mariia Mart LPN * Telephone Encounter - Hawa Messina RN - 10/05/2023 9:06 AM EST Patient called in requesting Dr. Owen review her chest CT that was done on 09/29/2023. Please call the patient back with results. Thank you. [facility] Miscellaneous Notes* Letter - Coordinator, Mammography - 10/06/2023 8:41 PM EST October 07, 2023 PID: [id number] Manisha Keith [address] [place] [address] Dear Ms. Keith, We are pleased to inform you that the results of your recent breast imaging exam on 10/05/2023 are normal. Your mammogram demonstrates that you have dense breast tissue, which could hide abnormalities. Dense breast tissue, in and of itself, is a relatively common condition. Therefore, this information is not provided to cause undue concern; rather, it is to raise your awareness and promote discussion with your health care provider regarding the presence of dense breast tissue in addition to other riskfactors. Early detection of cancer is very important. We also understand recommendations regarding breast cancer screening are controversial. Please discuss with your primary care provider which strategy is best for you and whether a mammogram is right for you. Your imaging studies and report will be kept on file at [facility] as part of your permanent medical record and are available for your continuing care. Thank you for allowing us to help in meeting your health care needs. Sincerely, Dr. Romo Interpreting Radiologist [facility] (Normal over 40) documented in this encounterWooster [facility]02-21-2024 History of Present illness Narrative* Nader Eldridge MD - 10/05/2023 6:[address] Yunier Owen, Thank you for this interesting e-consult. While we may be able to access this nodule, to my eyes this nodule has been stable for one year. I would favor a repeat chest CT (I would write down under comments superdimension bronchoscopy protocol) in one year. I hope this is reasonable to you. Thank you again. Nader Finney MD 10/05/2023 6:56 PM documented in this encounterWooster [facility]02-21-2024 Miscellaneous Notes* Telephone Encounter - Yunier Owen MD - 10/05/2023 2:52 PM EST Spoke to patient regarding her CT results. No significant change since last CT. Remains suspicious for adenocarcinoma. I will consult interventional pulmonary for possible biopsy. documented in this encounterWooster [facility]02-21-2024 History of Present illness Narrative* Jelena Blank RT(R) - 10/05/2023 1:10 PM EST Radiology Service Progress Note PATIENT NAME: Manisha Keith DATE OF SERVICE: October 05, 2023 TIME: 12:57 PM PATIENT IDENTITY VERIFICATION COMPLETED USING TWO (2) IDENTIFIERS: Name and Date of confirmedby patient verbally. FALL SCREENING: Has the patient had 2 falls in the last year or 1 fall with injury or currently using an Ambulatory Assistive Device (Walker, Cane, Wheelchair, Crutches, etc.)? No PATIENT GENDER DATA: Female. status: : No status: NO. PATIENT RELEVANT IMPLANT DATA REVIEWED: Not Applicable PATIENT PRESENTS WITH AN IMPLANTABLE OR ATTACHED CORPORATE COUNSEL: No RADIOLOGY DEPARTMENT: Mammography PERIPHERAL IV DATA: Not applicable SIGNED BY: RT Ying(R) October 05, 2023 12:57 PM documented in this encounterWooster [facility]02-15-2024 History of Present illness Narrative* Cherelle Hernández RT(R) - 09/29/2023 1:00 PM EST Radiology Service Progress Note PATIENT NAME: Manisha Keith DATE OF SERVICE: September 29, 2023 TIME: 2:43 PM PATIENT IDENTITY VERIFICATION COMPLETED USING TWO (2) IDENTIFIERS: Name and Date of confirmedby patient verbally. FALL SCREENING: Has the patient had 2 falls in the last year or 1 fall with injury or currently using an Ambulatory Assistive Device (Walker, Cane, Wheelchair, Crutches, etc.)? No PATIENT GENDER DATA: Female. status: : No status: NO. PATIENT RELEVANT IMPLANT DATA REVIEWED: Yes PATIENT PRESENTS WITH AN IMPLANTABLE OR ATTACHED CORPORATE COUNSEL: No RADIOLOGY DEPARTMENT: CT; Exam(s) Completed: Chest PERIPHERAL IV DATA: Not applicable SIGNED BY: RT Kaleigh(R) September 29, 2023 2:43 PM documented in this encounterWooster [facility]02-05-2024 Instructions* Patient Instructions* Ilir Culter Jr., MD - 09/19/2023 9:26 AM EST documented in this encounterWooster [facility] Hospital02-05-2024 History of Present illness Narrative* Ilir Cutler Jr., MD - 09/19/2023 9:02 AM EST ESTABLISHED PATIENT VISIT CHIEF COMPLAINT: Follow UP HISTORY OF PRESENT ILLNESS: Manisha Keith is a 73 year old female, BMI 39.68 kg/m2 with a PMH significant for and per last office visit of 01/31/23: 1. Obstructive sleep apnea (adult) (pediatric) - ICD9: 327.23, ICD10: G47.33 (primary diagnosis) 2. Sleep related hypoxia - ICD9: 327.24, ICD10: G47.34 Patient with severe RICARDO as above, and determined by HSAT. Concerning not only is severity but also recorded sleep related hypoxia. Pt denies cardiac or pulmonary disease. Previously did not like CPAPas always was getting infections. However, uncertain if associated with device. Reviewed treatment options with pt and given hypoxia, recommending pt try PAP once more and if fails then consider surgical options as last resort with dental appliance not being an option due to teeth removal. Pt agrees with plan. Note, we will place on bilevel PAP rather than CPAP due to prior issues with CPAP therapy. This will be an in lab titration due to hypoxia. Pt requests [facility]. Pt agrees with plan. Encouraged weight loss. Advised pt not to drive or operate heavy machinery if sleepy. 3. Hypoglycemia - ICD9: 251.2, ICD10: E16.2 4. Hypertension, unspecified type - ICD9: 401.9, ICD10: I10 Will inform Dr. Chi (endocrine) and Dr. Hernández PCP). pt states BP up due to not taking today's meds,but also reporting frequent bouts of hypoglycemia. Also informed pt to contact her physicians. Pt underwent PAP titration in February 2023 - recommending Auto bilevel with O2 at 1 LPM. Note that titration results in EPIC under scanned documents. AHI was severe while on CPAP and transitioned to bilevel PAP. Results of titration reviewed with pt. She is adamant that she got an infection every time she used her PAP. Tired all day. I sleep all day. I wake up all the time gasping for air. Pt did have pneumonia 1 month ago for which she was hospitalized and newly diagnosed lung nodule. Denies any issues falling asleep - I can fall asleep whenever. No parasomnias. Can wake feeling short of breath and with palpitations. REVIEW OF SYSTEMS GENERAL:No weight loss, malaise or fevers. HEENT:Negative for frequent or significant headaches, No changes in hearing or vision, no nose bleeds or other nasal problems NECK:Negative for lumps, goiter, pain and significant neck swelling RESPIRATORY: See HPI. CARDIOVASCULAR: See HPI. GASTROINTESTINAL: Negative for abdominal discomfort, blood in stools or black stools or change in bowel habits GENITOURINARY: No history of dysuria, frequency or incontinence MUSCULOSKELETAL: Negative for joint pain or swelling, back pain or muscle pain. NEUROLOGIC:Negative for focal numbness or weakness, headaches and dizziness or syncope, vision changes, speech/languag changes - EXCEPT that as per HPI above. LAB/IMAGING: Those performed since patient's last visit have been reviewed. WBC (k/uL) Date Value 08/23/2023 9.64 RBC (m/uL) Date Value 08/23/2023 4.04 Hemoglobin (g/dL) Date Value 08/23/2023 12.7 Hematocrit (%) Date Value 08/23/2023 39.5 MCV (fL) Date Value 08/23/2023 97.8 MCH (pg) Date Value 08/23/2023 31.4 MCHC (g/dL) Date Value 08/23/2023 32.2 RDW-CV (%) Date Value 08/23/2023 13.1 Platelet Count (k/uL) Date Value 08/23/2023 281 MPV (fL) Date Value 08/23/2023 9.5 Glucose (mg/dL) Date Value 07/01/2023 361 (H) BUN (mg/dL) Date Value 07/01/2023 16 Creatinine (mg/dL) Date Value 07/01/2023 0.88 Sodium (mmol/L) Date Value 07/01/2023 136 Potassium (mmol/L) Date Value 07/01/2023 4.0 Chloride (mmol/L) Date Value 07/01/2023 99 CO2 (mmol/L) Date Value 07/01/2023 26 Protein, Total (g/dL) Date Value 02/17/2023 7.1 Albumin (g/dL) Date Value 02/17/2023 3.8 (L) Calcium, Total (mg/dL) Date Value 07/01/2023 9.3 Alkaline Phosphatase (U/L) Date Value 02/17/2023 56 Bilirubin, Total (mg/dL) Date Value 02/17/2023 0.2 AST (U/L) Date Value 02/17/2023 15 ALT (U/L) Date Value 02/17/2023 13 OLLIE (no units) Date Value 05/12/2022 Negative Rheumatoid Factor (IU/mL) Date Value 05/12/2022 <10 Hep C Antibody IA (no units) Date Value 08/23/2016 Negative MEDICATIONS: doxepin (ZONALON) 5 % cream Apply to affected area three times a day as needed for itching/rash (donot exceed dosing). fluticasone (FLONASE) 50 mcg/actuation nasal spray USE 1 SPRAY IN EACH NOSTRIL ONCE DAILY AT BEDTIME DIRECTED cetirizine (ZYRTEC) 10 mg tablet Take 1 tablet by mouth once daily. famotidine (PEPCID) 20 mg tablet Take 1 tablet by mouth at bedtime as needed. hydroCHLOROthiazide 12.5 mg capsule Take 1 capsule by mouth once daily. axvkjhvaiqd-hkjznwzcv-tujuiqlf (TRELEGY ELLIPTA) 200-62.5-25 mcg inhalation powder Inhale 1 Puff asinstructed once daily. esomeprazole (NEXIUM) 40 mg capsule Take 1 capsule by mouth two times a day before meals. 1/2 hr before meal. nystatin (MYCOSTATIN) cream Apply 1 application to affected area two times a day. gabapentin (NEURONTIN) 300 mg capsule Take 1 capsule by mouth daily at bedtime. FOLIC ACID ORAL Take by mouth. methotrexate 2.5 mg tablet Take 20 mg by mouth every Tuesday. HUMULIN R U-500, CONC, KWIKPEN 500 unit/mL (3 mL) inpn Inject subcutaneously three times daily. 70/70/40 melatonin 3 mg tablet Take 1 tablet at 9PM nightly. insulin needles, DISPOSABLE, (PEN NEEDLE) 31 gauge x 5/16 Use one needle per dose. 4 per day. ondansetron orally disintegrating (ZOFRAN ODT) 4 mg disintegrating tablet DISSOLVE 1 TABLET IN MOUTH THREE TIMES DAILY NEEDED FOR NAUSEA AND VOMITING blood sugar diagnostic (ONETOUCH VERIO TEST STRIPS) test strip Test blood sugar(s) 3-4 times daily.Dx: Other DM Code E11.319 Insulin: Yes metaxalone (SKELAXIN) 800 mg tablet Take 1 tablet by mouth three times daily as needed for pain. Cholecalciferol, Vitamin D3, 50 mcg (2,000 unit) cap Take 1 capsule by mouth once daily. escitalopram oxalate (LEXAPRO) 10 mg tablet Take 1 tablet by mouth once daily. losartan (COZAAR) 100 mg tablet Take 1 tablet by mouth once daily. albuterol HFA (PROAIR HFA) 90 mcg/actuation inhaler Inhale 2 Puffs as instructed every 4 hours as needed. blood sugar diagnostic (BLOOD GLUCOSE TEST) test [...] Drops in the left eye twice daily. Aug Betamethasone Dipropionate (DIPROLENE) 0.05 % ointment Apply to affected area two times a day. oxybutynin ER (DITROPAN XL) 10 mg 24 hr tablet Take 2 tablets by mouth once daily. verapamil SR (CALAN SR) 120 mg CR tablet Take 1 tablet by mouth daily at bedtime. atorvastatin (LIPITOR) 20 mg tablet Take 1 tablet by mouth daily at bedtime. For cholesterol. metoprolol succinate ER (TOPROL XL) 100 mg Take 1 tablet by mouth once daily. HISTORIES PAST MEDICAL HISTORY Diagnosis Date Allergic rhinitis, cause unspecified Arthritis Asthma Childhood asthma Breast cancer (HCC) age 34-had lump, cancerous cells. no issues since, left Diverticulosis of colon (without mention of hemorrhage) Ground glass opacity present on imaging of lung Heme positive stool 2011 History of cervical cancer regular Paps for life Hyperlipidemia 2011 Inflammatory polyarthritis (HCC) Dr. 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) Sleep apnea Not on CPAP Type II or unspecified type diabetes mellitus without mention of complication, not stated as uncontrolled Unspecified essential hypertension FAMILY HISTORY Problem Relation Age of Onset Alcohol abuse Mother None Father Cave in Stroke Sister Cancer Sister COPD Sister No Known Problems Brother No Known Problems Brother Breast Cancer Maternal Aunt Primary Biliary Cirrhosis Daughter SOCIAL HISTORY Social History Tobacco Use Smoking status: Former Packs/day: 0.75 Years: 30.00 Additional pack years: 0.00 Total pack years: 22.50 Types: Cigarettes Quit date: 08/15/2000 Years since quittin.1 Passive exposure: Never Smokeless tobacco: Never Vaping Use Vaping Use: Never used Substance Use Topics Alcohol use: Never Comment: rarely Drug use: No PHYSICAL EXAMINATION BP 142/80 Pulse 92 Resp 16 Wt 95.3 kg (210 lb) SpO2 96% BMI 39.68 kg/m GENERAL EXAM: General appearance: NAD, pleasant. HEENT: NC/AT, nasal congestion absent, no oral lesions, membranes moist. NECK: No masses, supple. Lungs: Scattered wheezes + cough. CV: RRR nl S1, S2 Extr: No cyanosis, clubbing or edema. Skin: Cool to touch. NEUROLOGICAL EXAM: General: Awake, alert, oriented x3 (person,place,time), speech fluent, no dysarthria; comprehension, naming, repetition intact. CN: PERRL, EOMI and without nystagmus, VFF to confrontation, facial sensation and strength are normal and symmetric, hearing is intact to finger rub bilaterally, palate and tongue movements are intact and symmetric. SCM and trapezius strength normal. Motor: Normal tone, bulk and strength (5/5) bilaterally (throughout extremities x4). Coordination: FNF, MIKY, HTS intact. No tremors. Sensation: LT intact throughout. No evidence of neglect. Gait: Stable with normal stride and arm swing. Assessment and Plan: ASSESSMENT/PLAN: 1. Obstructive sleep apnea (adult) (pediatric) - ICD9: 327.23, ICD10: G47.33 (primary diagnosis) 2. Class 2 obesity with body mass index (BMI) of 39.0 to 39.9 in adult, unspecified obesity type, unspecified whether serious comorbidity present - ICD9: 278.00, V85.39, ICD10: E66.9, Z68.39 3. Sleep related hypoxia - ICD9: 327.24, ICD10: G47.34 Patient with severe RICARDO with associated nocturnal hypoxia. Patient initially adamant that she wouldnever use PAP again stating it only causes infections. However, uncertain any relation to PAP use and infections in the past. Emphasized if using PAP must clean regularly and properly. Reviewed results with patient and expressed health risks in not treating sleep apnea. Discussed with patient: the physiology of OSAS, medical conditions associated with OSAS (DM, HTN, CAD, Depression, Stroke, Headache...). Explained that given severity I would recommend PAP over other options, but If pt would like surgical evaluation we can provide consult. Pt eventually agrees with PAP therapy + use of suppleme ntal O2. Rx sent as per PAP titration recs for auto bilevel PAP set at IPAP max 25, EPAP min 18 andPS of 4-6 cmH2O as well as Rx for supplemental O2 with PAP at 1 LPM. Also will order nocturnal oximetry study within 2-4 weeks to confirm whether a higher O2 setting is needed. Advised patient to avoid activities that could harm self or others when tired/sleepy, including driving and/or operating heavy machinery. Encouraged weight loss, and continued compliance with other medications. Ilir Cutler MD I spent a total of 30+ minutes on the date of the service which included preparing to see the patient, [id number] patient care, completing clinical documentation, obtaining and/or reviewing separately obtained history, performing a medically appropriate examination, counseling and educating the pa tient/family/caregiver, ordering medications, tests, or procedures, independently interpreting results (not separately reported), and communicating results to the patient/family/caregiver. documented in this encounterW[facility]12-23-2023 Procedure [facility]12-21-2023 Miscellaneous Notes* Telephone Encounter - Cherelle Marlow LPN - 08/04/2023 8:49 AM EST Pt notified via identified voicemail. Cherelle Marlow LPN * Telephone Encounter - Cara Cleveland APRN.CNP - 08/04/2023 8:23 AM EST Please let the patient know that her urine culture is negative for infection. Cara Cleveland APRN.CHRISTA documented in this encounterWo[facility]12-15-2023 History of Present illness Narrative* Yunier Owen MD - 07/29/2023 11:45 AM EST Images from the original note were not included. Chest. Respiratory [place] Note Patient name: Manisha Keith PCP: Ilir Hernández MD CC: Follow up cough HPI: Manisha Keith 73 year old female former [id number] smoker quitting in 2000 with PMH significant for obesity, childhood asthma, allergies (seasonal and environmental), HLD, inflammatory arthritis on methotrexate, RICARDO on CPAP, DM2, HTN, GERD, osteoporosis, GGO in RUL recently seen for evaluation of chronic cough. Etiology of chronic cough felt to be multifactorial including GERD, upper airway cough syndrome and asthma. Ordered blood work and methacholine challenge testing. She is stillpending SHEILA. She had been on Trelegy Ellipta for over a year with minimal improvement in her cough.At the time of her initial visit, she had fever and borderline low oximetry thus she was sent to the hospital where she was admitted and treated for pneumonia. CTA of the chest performed at [facility] showed persistence of her semisolid right upper lobe groundglass nodule, bilateralpleural effusions and lower lobe atelectasis with increased interstitium. BNP was normal. She had aleukocytosis with left shift. She was treated with 2 rounds of antibiotics and has had improvement in her symptoms. She is no longer coughing up large volumes of mucus but she still has cough and hasheard some intermittent wheezing. DATA: Labs: WBC 17.6 with 87% PMNs BNP normal Abs Eosin <0.46 k/uL 0.80 High Component Ref Range & Units 4 wk ago IgE <114.0 kU/l 44.5 Component Ref Range & Units 4 wk ago [place] IgE <0.35 kU/l <0.35 [place] Class Class 0 Class 0 Fernando Grass IgE <0.35 kU/l <0.35 [place] Grass Class Class 0 Class 0 Connie Grass IgE <0.35 kU/l <0.35 Connie Grass Class Class 0 Class 0 Short Ragweed IgE <0.35 kU/l <0.35 Short Ragweed Class Class 0 Class 0 [place] IgE <0.35 kU/l <0.35 [place] Class Class 0 Class 0 Cat Dander IgE <0.35 kU/l <0.35 Cat Dander Class Class 0 Class 0 Dog Dander IgE <0.35 kU/l <0.35 Dog Dander Class Class 0 Class 0 Cladosporium herbarum IgE <0.35 kU/l <0.35 Cladosporium herbarum Class Class 0 Class 0 Alternaria tenuis IgE <0.35 kU/l <0.35 Alternaria tenuis Class Class 0 Class 0 Dermatophagoides Farinae IgE <0.35 kU/l <0.35 Dermatophagoides Farinae Class Class 0 Class Imaging / Diagnostic Studies: CTA Chest W/WO Contrast [facility] 06/21/23: FINDINGS: Normal enhancement of the main pulmonary artery and right and left pulmonary arteries. Normal enhancement of the bilateral peripheral pulmonary arteries. There is no demonstrated pulmonary embolism. Normal thoracic aorta and visualized great vessels. There is no demonstrated aortic dissection. Normal heart and pericardium. Normal mediastinum. Normal hilar regions. Normal visualized trachea and bronchi. The lungs are well expanded. Bilateral basilar atelectasis. Interstitial prominence. Possible focal right apical infiltrate. Small left pleural effusion. Normal chest wall structures. Degenerative vertebral changes. Cholelithiasis. Fatty liver. There is a left adrenal 2 cm nodule. IMPRESSION: No demonstrated pulmonary embolism or arterial dissection. Bilateral basilar atelectasis. Interstitial prominence. Possible small focal right apical infiltrate. Small left pleural effusion. Cholelithiasis. Fatty liver. Left adrenal nodule. 03/2023: Review of images from [facility] may show slight increase in the solid component of her RUL semisolid nodule. PAST MEDICAL HISTORY Diagnosis Date Allergic rhinitis, cause unspecified Arthritis Asthma Childhood asthma Breast cancer (HCC) age 34-had lump, cancerous cells. no issues since, left Diverticulosis of colon (without mention of hemorrhage) Ground glass opacity present on imaging of lung Heme positive stool 2011 History of cervical cancer regular Paps for life Hyperlipidemia 2011 Inflammatory polyarthritis (HCC) Dr. 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 1/2 hr before meal. nystatin (MYCOSTATIN) cream Apply 1 application to affected area two times a day. gabapentin (NEURONTIN) 300 mg capsule Take 1 capsule by mouth daily at bedtime. oxybutynin ER (DITROPAN XL) 10 mg 24 hr tablet Take 2 tablets by mouth once daily. Aug Betamethasone Dipropionate (DIPROLENE, AUGMENTED,) 0.05 % ointment Apply to affected area two times a day. FOLIC ACID ORAL Take by mouth. verapamil SR (CALAN SR) 120 mg CR tablet Take 1 tablet by mouth daily at bedtime. metFORMIN ER (GLUCOPHAGE XR) 500 mg 24 hr tablet Take 1 tablet by mouth daily with breakfast. atorvastatin (LIPITOR) 20 mg tablet Take 1 tablet by mouth daily at bedtime. For cholesterol. methotrexate 2.5 mg tablet Take 20 mg by mouth every Tuesday. HUMULIN R U-500, CONC, KWIKPEN 500 unit/mL (3 mL) inpn Inject subcutaneously three times daily. 70/70/40 melatonin 3 mg tablet Take 1 tablet at 9PM nightly. ondansetron orally disintegrating (ZOFRAN ODT) 4 mg disintegrating tablet DISSOLVE 1 TABLET IN MOUTH THREE TIMES DAILY NEEDED FOR NAUSEA AND VOMITING metaxalone (SKELAXIN) 800 mg tablet Take 1 tablet by mouth three times daily as needed for pain. csteqrfnzdr-mrosejgzq-dhbpjrht (TRELEGY ELLIPTA) 100-62.5-25 mcg inhalation powder Inhale 1 Puff asinstructed once daily. Cholecalciferol, Vitamin D3, 50 mcg (2,000 unit) cap Take 1 capsule by mouth once daily. escitalopram oxalate (LEXAPRO) 10 mg tablet Take 1 tablet by mouth once daily. losartan (COZAAR) 100 mg tablet Take 1 tablet by mouth once daily. fluticasone (FLONASE) 50 mcg/actuation nasal spray USE 1 SPRAY IN EACH NOSTRIL ONCE DAILY AT BEDTIME DIRECTED hydroCHLOROthiazide (HYDRODIURIL, ESIDRIX) 12.5 mg capsule Take 1 capsule by mouth once daily. metoprolol succinate ER (TOPROL XL) 100 mg Take 1 tablet by mouth once daily. loratadine (CLARITIN) 10 mg tablet Take 1 tablet by mouth once daily. albuterol HFA (PROAIR HFA) 90 mcg/actuation inhaler Inhale 2 Puffs as instructed every 4 hours as needed. fluorometholone (FML LIQUID FILM) 0.1 % ophthalmic suspension Use 2 Drops in the left eye twice daily. insulin needles, DISPOSABLE, (PEN NEEDLE) 31 gauge x 5/16 Use one needle per dose. 4 per day. blood sugar diagnostic (ONETOUCH VERIO TEST STRIPS) test strip Test blood sugar(s) 3-4 times daily.Dx: Other DM Code E11.319 Insulin: Yes blood sugar diagnostic (BLOOD GLUCOSE TEST) test strip Test blood sugar(s) 3 times daily. Dx: Type 2 DM - Controlled E11.9 Insulin: YES Blood-Glucose Meter monitoring kit Glucose Meter of Choice - Kit - Dx: Type 2 DM - Controlled E11.9 COMPOUNDED PRESCRIPTION Insulin needles-1/2 cc for 100 u Use up to 4 a day Social History Tobacco Use Smoking status: Former Packs/day: 0.75 Years: 30.00 Additional pack years: 0.00 Total pack years: 22.50 Types: Cigarettes Quit date: 08/15/2000 Years since quittin.9 Smokeless tobacco: Never Vaping Use Vaping Use: Never used Substance Use Topics Alcohol use: Never Comment: rarely Drug use: No FAMILY HISTORY Problem Relation Age of Onset Alcohol abuse Mother None Father Cave in Stroke Sister Cancer Sister COPD Sister Breast Cancer Maternal Aunt PAST SURGICAL HISTORY Procedure Laterality Date ABDOMINAL SURGERY HX hx of feeding tube inserted APPENDECTOMY HX COLONOSCOPY FLX DX W/COLLJ SPEC WHEN PFRMD 06/26/2009 COLONOSCOPY FLX DX W/COLLJ SPEC WHEN PFRMD 04/10/2019 Colonoscopy COLONOSCOPY SCREENING 02/11/2022 Dr Olivas EGD 2010 EGD 02/11/2022 Dr Olivas ERCP DX COLLECTION SPECIMEN BRUSHING/WASHING 07/23/2008 Cholangiopancreatography (ERCP) ESOPHAGOGASTRODUODENOSCOPY TRANSORAL DIAGNOSTIC 04/10/2019 EGD EYE SURGERY HX MASTECTOMY Left age 34 Mastectomy - simple PAST SURGICAL HISTORY OF nose cauterized inside RMVL SEC MEMBRANOUS CTRC CORNEO-SCLL SCTJ Bilateral Cataract removal BILATERAL TOTAL ABDOMINAL HYSTERECT W/WO RMVL TUBE OVARY age 27 Hysterectomy, MARQUES cervical cancer, has one ovary left PMH, Social history, family history and surgical history reviewed and updated in EMR REVIEW OF SYSTEMS: CONSTITUTIONAL: No fevers, chills, nightsweats, unintended weight loss HEENT: Denies current nasal congestion/sinus symptoms, allergy problems, postnasal drip CARDIOVASCULAR: No chest pain, palpitations, orthopnea, PND PULM: See HPI GI: GERD symptoms if she does not take her medication. NEURO: No new balance problems, peripheral weakness/paresthesias or numbness of concern. MUSC-SKEL: No new joint pain, swelling, or erythema. INTEGUMENTARY: Pruritic papular lower extremities lower extremities PHYSICAL EXAMINATION: BP 136/74 Pulse 90 Temp 98.3 Resp 17 Wt 207 lb (93.9kg) SpO2 95% General Appearance: Obese female, NAD. Skin: Erythematous papular pruritic rash lower extremities Head: Normocephalic, no masses, lesions, tenderness or abnormalities. Eyes: Sclera, conjunctiva normal. Oropharynx: No oral lesions. Neck: No JVD, no masses, no adenopathy. Lungs: Not labored, normal to percussion, no wheezes or crackles. Heart: Regular rate and rhythm, no murmurs or gallops. Extremities: Edema, no clubbing. Assessment/Plan: 1. Chronic cough -Chronic cough multifactorial including probable asthma, GERD, postnasal drip -Pending methacholine challenge testing -Continue proton pump inhibitor 2. Groundglass opacity on chest imaging/lung nodule -Semisolid nodule appears unchanged since September of last year however the more solid component may be increased on outside imaging from [facility] -3-month interim chest CT 3. Former cigarette smoker -Former [id number] smoker having quit in 2000 without sequelae of COPD -Patient does not qualify for lung cancer screening based on the duration of her smoking cessation Yunier Owen MD Respiratory [place] documented in this encounterW[facility]12-[facility]23 Miscellaneous Notes* Telephone Encounter - Areli Salas LPN - 07/28/2023 11:19 AM EST Patient was notified and verbalizes understanding. * Telephone Encounter - Ilir Hernández MD - 07/27/2023 5:06 PM EST Xray official read is what I had thought. It is looking better. There is an order in the chart already for a repeat ct of her chest. Can we make sure it is scheduled for early Sep. documented in this encounterW[facility]12-12-2023 History of Present illness Narrative* Allison Wu, RT(R) - 07/26/2023 3:20 PM EST Radiology Service Progress Note PATIENT NAME: Manisha Keith DATE OF SERVICE: July 26, 2023 TIME: 3:55 PM PATIENT IDENTITY VERIFICATION COMPLETED USING TWO (2) IDENTIFIERS: Name and Date of confirmedby patient verbally. FALL SCREENING: Has the patient had 2 falls in the last year or 1 fall with injury or currently using an Ambulatory Assistive Device (Walker, Cane, Wheelchair, Crutches, etc.)? No PATIENT GENDER DATA: Female. status: : No status: NO. PATIENT RELEVANT IMPLANT DATA REVIEWED: Not Applicable RADIOLOGY DEPARTMENT: General X-ray: Exam(s) Completed: Chest X-Ray PERIPHERAL IV DATA: Not applicable SIGNED BY: RT Opal(R) July 26, 2023 3:55 PM documented in this encounterWo[facility]11-24-2023 Miscellaneous Notes* Telephone Encounter - Timbo Del Valle - 07/08/2023 4:46 PM EST BAUDILIO 07/04/23 NOV 07/27/23 * Telephone Encounter - Tiffany Calixto - 07/08/2023 4:35 PM EST Patient has been identified by name and date of : Yes Requested Prescriptions Pending Prescriptions Disp Refills esomeprazole (NEXIUM) 40 mg capsule 180 capsule 3 Sig: Take 1 capsule by mouth two times a day before meals. 1/2 hr before meal. RX INSTRUCTIONS: Patient aware RX will be sent to pharmacy. No need to notify patient. Tiffany Canseco documented in this encounterWooster [facility]11-22-2023 Miscellaneous Notes* Telephone Encounter - Areli Salas LPN - 07/06/2023 8:33 AM EST Patient notified. * Telephone Encounter - Ilir Hernández MD - 07/05/2023 5:17 PM EST Let her know her urine was ok. documented in this encounterWo[facility]11-20-2023 Miscellaneous Notes* Telephone Encounter - Areli Salas LPN - 07/04/2023 1:19 PM EST Patient was notified. * Telephone Encounter - Ilir Hernández MD - 07/04/2023 12:47 PM EST Let her know her stool does not contain blood. documented in this encounterWooster [facility]11-20-2023 History of Present illness Narrative* Ilir Hernández MD - 07/04/2023 11:37 AM EST Patient presents with: Follow Up HPI: Patient presents today for office visit for follow up. Still with low grade fever daily 99-100.1. Doing some coughing still that is productive yellow/white in color. Breathing is about the same with maybe a slight improvement. Right ear is itching. Has vaginal itching and soreness wonders if still has a UTI. Can also have a soreness in back that seems to come with indigestion. Stools are still dark in color. Has seen no visible blood. IFOBT is in process dropped off at the lab this weekend. ATB completed. No diarrhea. Is overall doing better. She reported she had black stools that her doctor is aware of. We have not discussed black stoolspreviously. On discussion, her stools have not been melanotic. Is dark brown. No diarrhea. Did havean ifobt done already that is pending and had one that was negative. Six months ago. No nausea or vomiting or abd pain Has some intermittent muscle spasms. Can be worse when her sugars are worse Her vaginal area is itching. No rash. No discharge. CT in hospital. Had shown ? Infiltrate in right upper lobe and small left pleural effusion. See previous ov HPI, copied and pasted: Admitted into [facility] 06/21/23 Discharged 06/23/23 Dx with Pneumonia/UTI. Treated with IV abx Given course of Amoxicillin and prednisone upon discharge. Has one more day of oral amoxil left. Feeling better Not coughing as bad. Has less sputum production More of a dry cough Denies chest pain Some shortness of breath but not as bad as it was. Swelling in legs and rash is getting better. Had a cta due to elevated d dimer. Ct showed infiltrate which is new. Showed adrenal nodule which may actually be smaller. Chest xray: was compared to 05/07 IMPRESSION: Stable exam with vague small groundglass opacity in the right upper lung. A follow-up exam is recommended. Component Latest Ref Rng & Units 06/15/2023 07/01/2023 Color Yellow Yellow Clarity Clear Clear Glucose, Urine Negative Trace (A) Bilirubin, Urine Negative Negative Ketones, Urine Negative Negative Specific [place], Ur 1.005 - 1.030 1.025 Hemoglobin/Blood,Ur Negative Negative pH, Urine <8.5 6.5 Protein, Urine Negative 1+ (A) Urobilinogen 0.2-1.0 EU/dL 1.0 EU/dL Nitrites Negative Negative Leukest Negative 2+ (A) WBC, Urine 0-5 /HPF 0-5 /HPF RBC, Urine 0-2 /HPF 0-2 /HPF Bacteria uL Negative uL 1,146.0 (H) Epithelial Cells /HPF Moderate Hyaline Cast 0 /LPF 0 /LPF WBC 3.70 - 11.00 k/uL 13.02 (H) RBC 3.90 - 5.20 m/uL 4.27 Hemoglobin 11.5 - 15.5 g/dL 13.2 Hematocrit 36.0 - 46.0 % 41.4 MCV 80.0 - 100.0 fL 97.0 MCH 26.0 - 34.0 pg 30.9 MCHC 30.5 - 36.0 g/dL 31.9 RDW-CV 11.5 - 15.0 % 13.5 Platelet Count 150 - 400 k/uL 279 MPV 9.0 - 12.7 fL 9.9 Absolute nRBC <0.01 k/uL <0.01 Glucose 74 - 99 mg/dL 361 (H) BUN 7 - 21 mg/dL 16 Creatinine 0.58 - 0.96 mg/dL 0.88 Sodium 136 - 144 mmol/L 136 Potassium 3.7 - 5.1 mmol/L 4.0 Chloride 97 - 105 mmol/L 99 CO2 22 - 30 mmol/L 26 Anion Gap 9 - 18 mmol/L 11 Calcium 8.5 - 10.2 mg/dL 9.3 eGFR >=60 mL/min/1.73m 70 Culture 10,000 -<50,000 CFU/ml Normal urogenital john NT Pro BNP <125 pg/mL 118 IgE <114.0 kU/l 44.5 Abs Eosin <0.46 k/uL 0.80 (H) MEDICATIONS: Current Outpatient Medications Medication Sig gabapentin (NEURONTIN) 300 mg capsule Take 1 capsule by mouth daily at bedtime. oxybutynin ER (DITROPAN XL) 10 mg 24 hr tablet Take 2 tablets by mouth once daily. Aug Betamethasone Dipropionate (DIPROLENE, AUGMENTED,) 0.05 % ointment Apply to affected area two times a day. FOLIC ACID ORAL Take by mouth. verapamil SR (CALAN SR) 120 mg CR tablet Take 1 tablet by mouth daily at bedtime. metFORMIN ER (GLUCOPHAGE XR) 500 mg 24 hr tablet Take 1 tablet by mouth daily with breakfast. atorvastatin (LIPITOR) 20 mg tablet Take 1 tablet by mouth daily at bedtime. For cholesterol. methotrexate 2.5 mg tablet Take 20 mg by mouth every Tuesday. HUMULIN R U-500, CONC, KWIKPEN 500 unit/mL (3 mL) inpn Inject subcutaneously three times daily. 70/70/40 melatonin 3 mg tablet Take 1 tablet at 9PM nightly. insulin needles, DISPOSABLE, (PEN NEEDLE) 31 gauge x 5/16 Use one needle per dose. 4 per day. ondansetron orally disintegrating (ZOFRAN ODT) 4 mg disintegrating tablet DISSOLVE 1 TABLET IN MOUTH THREE TIMES DAILY NEEDED FOR NAUSEA AND VOMITING blood sugar diagnostic ([place] PurificationTOUCH VERIO TEST STRIPS) test strip Test blood sugar(s) 3-4 times daily.Dx: Other DM Code E11.319 Insulin: Yes metaxalone (SKELAXIN) 800 mg tablet Take 1 tablet by mouth three times daily as needed for pain. kuphpmkklsw-kahmzrjpl-qgbzcnnn (TRELEGY ELLIPTA) 100-62.5-25 mcg inhalation powder Inhale 1 Puff asinstructed once daily. Cholecalciferol, Vitamin D3, 50 mcg (2,000 unit) cap Take 1 capsule by mouth once daily. escitalopram oxalate (LEXAPRO) 10 mg tablet Take 1 tablet by mouth once daily. esomeprazole (NEXIUM) 40 mg capsule Take 1 capsule by mouth twice daily before meals. 1/2 hr beforemeal. losartan (COZAAR) 100 mg tablet Take 1 tablet by mouth once daily. fluticasone (FLONASE) 50 mcg/actuation nasal spray USE 1 SPRAY IN EACH NOSTRIL ONCE DAILY AT BEDTIME DIRECTED hydroCHLOROthiazide (HYDRODIURIL, ESIDRIX) 12.5 mg capsule Take 1 capsule by mouth once daily. metoprolol succinate ER (TOPROL XL) 100 mg Take 1 tablet by mouth once daily. loratadine (CLARITIN) 10 mg tablet Take 1 tablet by mouth once daily. albuterol HFA (PROAIR HFA) 90 mcg/actuation inhaler Inhale 2 Puffs as instructed every 4 hours as needed. blood sugar diagnostic (BLOOD GLUCOSE TEST) test [...] Drops in the left eye twice daily. No current facility-administered medications for this visit. ALLERGIES: ALLERGIES Allergen Reactions Jesenia Inhibitors Cough Nsaids (Non-Steroid* GI Upset Tape [Adhesive Tape* Other: See Comments Blisters from surgical tape Trulicity [Dulaglut* Other: See Comments Gastroparesis PAST MEDICAL HISTORY Diagnosis Date Allergic rhinitis, cause unspecified Arthritis Asthma Childhood asthma Breast cancer (HCC) age 34-had lump, cancerous cells. no issues since, left Diverticulosis of colon (without mention of hemorrhage) Heme positive stool 2010 History of cervical cancer regular Paps for life Hyperlipidemia 2011 Inflammatory polyarthritis (HCC) Dr. 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) Sleep apnea Not on CPAP Type II or unspecified type diabetes mellitus without mention of complication, not stated as uncontrolled Unspecified essential hypertension PAST SURGICAL HISTORY Procedure Laterality Date ABDOMINAL SURGERY HX hx of feeding tube inserted APPENDECTOMY HX COLONOSCOPY FLX DX W/COLLJ SPEC WHEN PFRMD 06/26/2009 COLONOSCOPY FLX DX W/COLLJ SPEC WHEN PFRMD 04/10/2019 Colonoscopy COLONOSCOPY SCREENING 02/11/2022 Dr Olivas EGD 2010 EGD 02/11/2022 Dr Olivas ERCP DX COLLECTION SPECIMEN BRUSHING/WASHING 07/23/2008 Cholangiopancreatography (ERCP) ESOPHAGOGASTRODUODENOSCOPY TRANSORAL DIAGNOSTIC 04/10/2019 EGD EYE SURGERY HX MASTECTOMY Left age 34 Mastectomy - simple PAST SURGICAL HISTORY OF nose cauterized inside RMVL SEC MEMBRANOUS CTRC CORNEO-SCLL SCTJ Bilateral Cataract removal BILATERAL TOTAL ABDOMINAL HYSTERECT W/WO RMVL TUBE OVARY age 27 Hysterectomy, MARQUES cervical cancer, has one ovary left FAMILY HISTORY Problem Relation Age of Onset Alcohol abuse Mother None Father Cave in Stroke Sister Cancer Sister COPD Sister Breast Cancer Maternal Aunt Social History Tobacco Use Smoking status: Former Packs/day: 0.75 Years: 30.00 Additional pack years: 0.00 Total pack years: 22.50 Types: Cigarettes Quit date: 08/15/2000 Years since quittin.8 Smokeless tobacco: Never Vaping Use Vaping Use: Never used Substance Use Topics Alcohol use: Never Comment: rarely Drug use: No Reviewed current medications, allergies, past medical history, surgical history, family history andsocial history today. REVIEW OF SYSTEMS All other reviewed and negative other than HPI. VITALS: BP 136/64 Pulse 83 Temp 36.2 C (97.2 F) (Tympanic) Wt 90.7 kg (200 lb) SpO2 95% BMI 36.58kg/m Last 4 Encounter Wt Readings: Date: Wt: 06/28/2023 93.1 kg (205 lb 3.2 oz) 06/21/2023 92.1 kg (203 lb) 06/15/2023 95.3 kg (210 lb) 06/13/2023 94.5 kg (208 lb 6.4 oz) PHYSICAL EXAMINATION: General appearance: [...] or cyanosis. Good capillary refill. ASSESSMENT/PLAN: 1. Vaginal discomfort - ICD9: 625.9, ICD10: N94.9 (primary diagnosis) - work on sugar - UA DIP, URINE (POC) - NYSTATIN 100,000 UNIT/GRAM TOPICAL CREAM 2. Leukocytosis, unspecified type - ICD9: 288.60, ICD10: D72.829 - treat with doxy for her pneumonia - URINE CULTURE 3. Bacterial pneumonia - ICD9: 482.9, ICD10: J15.9 - recheck labs and xray in one month. Discussed that she needs to get her sugars in better control and push fluids based on herlabs. - CBC + DIFF - XR CHEST 2V FRONTAL/LAT - DOXYCYCLINE MONOHYDRATE 100 MG TABLET 4. Dermatitis - ICD9: 692.9, ICD10: L30.9 - use mycostatin. - discussed skin care of rash - follow up if symptoms persist or worsen. Ilir Hernández MD documented in this encounterW[facility]11-18-2023 Miscellaneous Notes* Telephone Encounter - Mari Valdivia LPN - 07/02/2023 11:06 AM EST Patient returned call and went over results, notes from Dex BHAT with understanding. Patient said she has noticed her heart rate has been elevated at times. She had fever last week, does not think has fever now. She has not checked her heart rate. Advised to go to ER for evaluation if still having elevated heart rate. * Telephone Encounter - Mari Valdivia LPN - 07/02/2023 10:57 AM EST Phoned patient and left message to return call and ask to speak to triage nurse. * Telephone Encounter - Mari Valdivia LPN - 07/02/2023 10:55 AM EST ----- Message from Usman Barboza PA-C sent at 07/02/2023 10:06 AM EST ----- Please let her know blood sugar is high at 361, much higher than it has been, likely related to current infection. WBC is elevated at 13.02 again likely related to infection. Eosinophil count is elevated which usually follows allergies. Additional allergy testing is still pending. BNP is normal indicating not related to congestive heart failure. ThanksDex PA-C documented in this encounterWo[facility]11-17-2023 History of Present illness Narrative* Gabbi Parker RT(R) - 07/01/2023 4:20 PM EST Radiology Service Progress Note PATIENT NAME: Manisha Keith DATE OF SERVICE: July 01, 2023 TIME: 4:07 PM PATIENT IDENTITY VERIFICATION COMPLETED USING TWO (2) IDENTIFIERS: Name and Date of confirmedby patient verbally. FALL SCREENING: Has the patient had 2 falls in the last year or 1 fall with injury or currently using an Ambulatory Assistive Device (Walker, Cane, Wheelchair, Crutches, etc.)? No PATIENT GENDER DATA: Female. status: : No status: NO. PATIENT RELEVANT IMPLANT DATA REVIEWED: Yes RADIOLOGY DEPARTMENT: General X-ray: Exam(s) Completed: Chest X-Ray PERIPHERAL IV DATA: Not applicable SIGNED BY: RT Christopher(Clifford) July 01, 2023 4:07 PM documented in this encounterWo[facility]11-16-2023 Miscellaneous Notes* Telephone Encounter - Kerry Spivey Ma - 06/30/2023 6:13 PM EST Patient notified of provider message and instructions. Scheduled for 07/04/23. Kerryenrique Spivey Ma * Telephone Encounter - Usman Barboza PA-C - 06/30/2023 6:01 PM EST Needs to complete CXR order 06/28/2023. Please complete the following: Telephone on 06/30/23 FECAL OCCULT BLOOD TEST CBC BASIC METABOLIC PNL NT PRO BNP Please schedule with next available provider for next week. If dizzy, syncopal, weak, chest pain, labored breathing: call 911 and go to ER. Thanks, Dex Barboza PA-C * Telephone Encounter - Rica Hogan LPN - 06/30/2023 1:58 PM EST Pt called to update you regarding the pneumonia and UTI she was hospitalized for earlier. Pt was seen in the office on 06-28-23 for a hospital follow up. Pt reports still getting out of breath when going up steps, stools are loose and still black. Pt reports she has had black stools x 6 months, butshe feels they maybe donny than normal. Pt reports the doctor is aware of this. Pt denies taking pepto bismol and was taken off iron 3 to 4 months ago. Pt reports she has been having problems getting out of breath for the past 6 months. Pt just completed steroids and ATB yesterday. Please advice pt on recommendations. Rica Hogan LPN documented in this encounterWo[facility]11-14-2023 History of Present illness Narrative* Ilir Hernández MD - 06/28/2023 3:10 PM EST Patient presents with: Hospital F/U HPI: Patient presents today for office visit for hospital follow up. TCM call done on 06/23 Limited records. No discharge summary available. Will try obtain. Admitted into [facility] 06/21/23 Discharged 06/23/23 Dx with Pneumonia/UTI. Treated with IV abx Given course of Amoxicillin and prednisone upon discharge. Has one more day of oral amoxil left. Feeling better Not coughing as bad. Has less sputum production More of a dry cough Denies chest pain Some shortness of breath but not as bad as it was. Swelling in legs and rash is getting better. Had a cta due to elevated d dimer. Ct showed infiltrate which is new. Showed adrenal nodule which may actually be smaller. MEDICATIONS: Current Outpatient Medications Medication Sig doxycycline hyclate (VIBRAMYCIN) 100 mg capsule Take 1 capsule by mouth two times a day for 10 days. gabapentin (NEURONTIN) 300 mg capsule Take 1 capsule by mouth daily at bedtime. oxybutynin ER (DITROPAN XL) 10 mg 24 hr tablet Take 2 tablets by mouth once daily. Aug Betamethasone Dipropionate (DIPROLENE, AUGMENTED,) 0.05 % ointment Apply to affected area two times a day. FOLIC ACID ORAL Take by mouth. verapamil SR (CALAN SR) 120 mg CR tablet Take 1 tablet by mouth daily at bedtime. metFORMIN ER (GLUCOPHAGE XR) 500 mg 24 hr tablet Take 1 tablet by mouth daily with breakfast. atorvastatin (LIPITOR) 20 mg tablet Take 1 tablet by mouth daily at bedtime. For cholesterol. methotrexate 2.5 mg tablet Take 20 mg by mouth every Tuesday. HUMULIN R U-500, CONC, KWIKPEN 500 unit/mL (3 mL) inpn Inject subcutaneously three times daily. 70/70/40 melatonin 3 mg tablet Take 1 tablet at 9PM nightly. insulin needles, DISPOSABLE, (PEN NEEDLE) 31 gauge x 5/16 Use one needle per dose. 4 per day. ondansetron orally disintegrating (ZOFRAN ODT) 4 mg disintegrating tablet DISSOLVE 1 TABLET IN MOUTH THREE TIMES DAILY NEEDED FOR NAUSEA AND VOMITING blood sugar diagnostic ([employer] WordUCH VERIO TEST STRIPS) test strip Test blood sugar(s) 3-4 times daily.Dx: Other DM Code E11.319 Insulin: Yes metaxalone (SKELAXIN) 800 mg tablet Take 1 tablet by mouth three times daily as needed for pain. hrjmmgorjnh-hodfdpwlh-rrzhtwfg (TRELEGY ELLIPTA) 100-62.5-25 mcg inhalation powder Inhale 1 Puff asinstructed once daily. Cholecalciferol, Vitamin D3, 50 mcg (2,000 unit) cap Take 1 capsule by mouth once daily. escitalopram oxalate (LEXAPRO) 10 mg tablet Take 1 tablet by mouth once daily. esomeprazole (NEXIUM) 40 mg capsule Take 1 capsule by mouth twice daily before meals. 1/2 hr beforemeal. losartan (COZAAR) 100 mg tablet Take 1 tablet by mouth once daily. fluticasone (FLONASE) 50 mcg/actuation nasal spray USE 1 SPRAY IN EACH NOSTRIL ONCE DAILY AT BEDTIME DIRECTED hydroCHLOROthiazide (HYDRODIURIL, ESIDRIX) 12.5 mg capsule Take 1 capsule by mouth once daily. metoprolol succinate ER (TOPROL XL) 100 mg Take 1 tablet by mouth once daily. loratadine (CLARITIN) 10 mg tablet Take 1 tablet by mouth once daily. albuterol HFA (PROAIR HFA) 90 mcg/actuation inhaler Inhale 2 Puffs as instructed every 4 hours as needed. blood sugar diagnostic (BLOOD GLUCOSE TEST) test [...] Drops in the left eye twice daily. No current facility-administered medications for this visit. ALLERGIES: ALLERGIES Allergen Reactions Jesenia Inhibitors Cough Nsaids (Non-Steroid* GI Upset Tape [Adhesive Tape* Other: See Comments Blisters from surgical tape Trulicity [Dulaglut* Other: See Comments Gastroparesis PAST MEDICAL HISTORY Diagnosis Date Allergic rhinitis, cause unspecified Arthritis Asthma Childhood asthma Breast cancer (HCC) age 34-had lump, cancerous cells. no issues since, left Diverticulosis of colon (without mention of hemorrhage) Heme positive stool 2010 History of cervical cancer regular Paps for life Hyperlipidemia 2011 Inflammatory polyarthritis (HCC) Dr. 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) Sleep apnea Not on CPAP Type II or unspecified type diabetes mellitus without mention of complication, not stated as uncontrolled Unspecified essential hypertension PAST SURGICAL HISTORY Procedure Laterality Date ABDOMINAL SURGERY HX hx of feeding tube inserted APPENDECTOMY HX COLONOSCOPY FLX DX W/COLLJ SPEC WHEN PFRMD 06/26/2009 COLONOSCOPY FLX DX W/COLLJ SPEC WHEN PFRMD 04/10/2019 Colonoscopy COLONOSCOPY SCREENING 02/11/2022 Dr Olivas EGD 2010 EGD 02/11/2022 Dr Olivas ERCP DX COLLECTION SPECIMEN BRUSHING/WASHING 07/23/2008 Cholangiopancreatography (ERCP) ESOPHAGOGASTRODUODENOSCOPY TRANSORAL DIAGNOSTIC 04/10/2019 EGD EYE SURGERY HX MASTECTOMY Left age 34 Mastectomy - simple PAST SURGICAL HISTORY OF nose cauterized inside RMVL SEC MEMBRANOUS CTRC CORNEO-SCLL SCTJ Bilateral Cataract removal BILATERAL TOTAL ABDOMINAL HYSTERECT W/WO RMVL TUBE OVARY age 27 Hysterectomy, MARQUES cervical cancer, has one ovary left FAMILY HISTORY Problem Relation Age of Onset Alcohol abuse Mother None Father Cave in Stroke Sister Cancer Sister COPD Sister Breast Cancer Maternal Aunt Social History Tobacco Use Smoking status: Former Packs/day: 0.75 Years: 30.00 Additional pack years: 0.00 Total pack years: 22.50 Types: Cigarettes Quit date: 08/15/2000 Years since quittin.8 Smokeless tobacco: Never Vaping Use Vaping Use: Never used Substance Use Topics Alcohol use: Never Comment: rarely Drug use: No Reviewed current medications, allergies, past medical history, surgical history, family history andsocial history today. REVIEW OF SYSTEMS All other reviewed and negative other than HPI. Sugars are up slightly while on steroids. VITALS: BP 159/71 Pulse 75 Ht 157.5 cm (5' 2) Wt 93.1 kg (205 lb 3.2 oz) SpO2 93% BMI 37.53 kg/m Last 4 Encounter Wt Readings: Date: Wt: 06/21/2023 92.1 kg (203 lb) 06/15/2023 95.3 kg (210 lb) 06/13/2023 94.5 kg (208 lb 6.4 oz) 05/14/2023 93.4 kg (206 lb) PHYSICAL EXAMINATION: General appearance: Well appearing, alert, in no acute distress, well-hydrated, well nourished. Skin: Skin color, texture, turgor normal, no suspicious rashes or lesions Lungs: Lungs clear to auscultation. No wheezing, rhonchi, rales Heart: RRR without murmur, gallop, or rubs. No ectopy Abdomen: Normal abdominal exam, Abdomen soft, non-tender. Bowel sounds normal. No masses, organomegaly Extremities: No deformities, edema, skin discoloration, clubbing or cyanosis. Good capillary refill. Musculoskeletal: No joint swelling, deformity, or tenderness ASSESSMENT/PLAN: 1. Bacterial pneumonia - ICD9: 482.9, ICD10: J15.9 (primary diagnosis) - continue current meds. Recheck xray before follow up in one month. Red flags for re-assessment reviewed with patient in detail. Get discharge summary. - XR CHEST 2V FRONTAL/LAT 2. Inflammatory polyarthritis (HCC) - ICD9: 714.9, ICD10: M06.4 - stable. 3. 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 4. Primary hypertension - ICD9: 401.9, ICD10: I10 - Worsening control - recheck one month 5. Subclinical hypothyroidism - ICD9: 244.8, ICD10: E03.8 -= stablle Ilir Hernández MD documented in this encounterWo[facility]11-10-2023 History of Present illness Narrative* Mari Valdivia LPN - 06/24/2023 3:27 PM EST TRANSITION CARE MANAGEMENT (TCM) INITIAL CONTACT Adjuster Leader Outreach Provider Action/FYI: Has 2 visits scheduled. Is she planning to keep both? Will do hospital follow up before Medicare Wellness. Advised to follow up with pulm. Continue your Trelegy inhaler patient is calling Pulmonary after call is completed with nurse. Initial contact with patient post discharge, spoke to patient. Patient identified by name and . TRANSITION CARE MANAGEMENT INITIAL OUTREACH DOCUMENTATION: No flowsheet data found. SUMMARY: -Pt discharged from [facility] on 06/23/23. -Admitted for: UTI and hypoxia Do you have a hospital follow up appointment with your PCP? Appointment on 06/28/[address] Hernández. Yes. Remind patient of appointment date, time, and location. If not within 14 calendar days of discharge - please reschedule accordingly. MEDICATIONS: Many patients have questions or concerns about their medications once they are home. Were you prescribed any new medications? If yes, what are those medications? Discharged with Augmentin 875 mg for 5 more days and 4 more days of 40mg Prednisone. Were you told to hold any medications? If yes, what are those medications? methotrexate Were any of your medications discontinued? No Do you have any questions about getting or taking your medications? No Your discharge instructions/After visit Summary (AVS) are important in guiding you through the recovery process. Is there anything I might help you understand? No Do you have all the necessary equipment and supplies at home? No, follow site specific process to secure durable medical equipment and/or supplies for the patient, handoff to RN/MEDICARE COORDINATOR, or LIP Medical records from recent hospitalization: Placed for provider to review [facility] Discharge summary Author Elver Carrion [facility] June 21, 2023 7:07pm Note Date/Time June 21, 2023 3 :59pm [facility] Medical Records Department [address] [place] [id number] Emergency Department Summary 06/21/23 MR#: [id number] Acct: [id number] Name: MANISHA KEITH Rep #:[id number] 2 : 1950 73 From: Elver Carrion DO PCP: Dr. Ilir Hernández MD Status:ADM I N Location: [facility] WR857-7 HPI History of Present Illness Chief Complaint: Cough Narrative Narrative: 73-year-old female presenting with shortness of breath, cough, fever, chills, body aches. This has been ongoing for about a week. Patient states she is coughing up a little bit of clear sputum. She states her chest feels sore from coughing. She denies chest pressure or sharp pleuritic pain. She states that she went to her marine engine mechanic today who was going to some testing however the patient tells me that her marine engine mechanic told her she was too sick to be hereand sent her to the urgent care. Upon arriving to the urgent care she states she was sent to the emergency room. Her ambulating pulse ox and arrival was 86%ambulating without oxygen. She does not usually wear oxygen. She denies a history of asthma or COPD in the past. She denies any nausea or vomiting and isactually requesting food. No urinary or vaginal complaints. No constipation ordiarrhea. PFSH PFS Medical History Allergic rhinitis Anxiety Arthritis Asthma Back problem Breast cancer Breast lump Calcium deficiency Cancer Cardiology follow-up encounter Carpal tunnel syndrome Cataract Chronic bronchitis Chronic cough COPD (chronic obstructive pulmonary disease) Diabetes Dietary restriction Diverticulosis Easy bruising Essential hypertension Former smoker Gall stone Gastrointestinal problem GERD (gastroesophageal reflux disease) History of cervical cancer History of Clostridium difficile infection History of edema History of gastrostomy tube placement History of Holter monitoring History of stress test History of vaginal delivery Hives IBS (irritable bowel syndrome) Inflammatory polyarthritis Injury of head and neck Internal hemorrhoids Leg cramps Loss of consciousness MSSA (methicillin susceptible Staphylococcus aureus) pneumonia Neuropathy OAB (overactive bladder) Obesity Osteoarthritis Osteoporosis Pancreatitis Recurrent infections Restless legs Rhabdomyolysis (04/2017) Seasonal allergies Shortness of breath on exertion Sleep apnea Urinary incontinence UTI (urinary tract infection) Vision problems Wears dentures Wears glasses Home Medications fluticasone propionate 50 mcg/actuation nasal spray,suspension 1 spray intranasal DAILY PRN NASAL CONGESTION 01/30/14 [History Last Taken 06/20/23] methotrexate sodium 2.5 mg tablet 20 mg PO TEJADA BREAST CANCER 04/16/17 [History Last Taken 06/19/23] albuterol sulfate 90 mcg/actuation aerosol inhaler (ProAir HFA) 2 puff inhalation Q4H PRN SHORTNESS OF BREATH 06/05/21 [History Last Taken Unknown] escitalopram oxalate 10 mg tablet (Lexapro) 10 mg PO DAILY PRN DEPRESSION 06/05/21 [History Last Taken 1 Week Ago ~10/15/21] fluticasone fur. 100 mcg-umeclid 62.5 mcg-vilant 25 mcg inhalat.powder (Trelegy Ellipta) 1 inh inhalation DAILY SHORTNESS OF BREATH 06/05/21 [History Last Taken 1 Week Ago ~05/29/21] folic acid 1 mg tablet 2 mg PO DAILY SUPPLEMENT 06/05/21 [History Last Taken 06/20/23] hydrochlorothiazide 12.5 mg capsule 12.5 mg PO DAILY BLOOD PRESSURE 06/05/21 [History Last Taken 06/20/23] losartan 100 mg tablet 100 mg PO DAILY BLOOD PRESSURE 06/05/21 [History Last Taken 06/20/23] ostomy supplies (AllAdKeepere Protect Barrier Wipes) #50 ea 02/02/22 [Rx Last Taken Unknown] aspirin 81 mg tablet,delayed release (Adult Low Dose Aspirin) 81 mg PO DAILY HEART HEALTH 02/05/22 [History Last Taken 06/20/23] gabapentin 300 mg capsule 300 mg PO QHS NEUROPATHY 02/05/22 [History Last Taken 06/20/23] oxybutynin chloride 10 mg tablet,extended release 24 hr 20 mg PO DAILY OVERACTIVE BLADDER 02/05/22 [History Last Taken 06/20/23] metoprolol succinate 100 mg tablet,extended release 24 hr 100 mg PO DAILY BLOOD PRESSURE 02/24/22 [History Last Taken 06/20/23] esomeprazole magnesium 40 mg capsule,delayed release (Nexium) 40 mg PO DAILY ACID REFLUX 11/26/22 [History Last Taken 06/20/23] loratadine 10 mg tablet 10 mg PO DAILY PRN ALLERGIES 11/26/22 [History Last Taken Unknown] metformin 500 mg tablet,extended release 24 hr 500 mg PO BREAKFAST DIABETES 11/26/22 [History Last Taken Unknown] pen needle, diabetic 32 gauge x 5/32 (BD Ultra-Fine Tish Pen Needle) #100 ea 11/26/22 [Rx Last Taken Unknown] atorvastatin 20 mg tablet 20 mg PO DAILY CHOLESTEROL 06/21/23 [History Last Taken 06/20/23] fexofenadine 180 mg tablet (Nury Allergy) 180 mg PO BID ALLERGIES 06/21/23 [History Last Taken 06/20/23] insulin regular hum U-500 conc 500 unit/mL(3 mL) subcut pen (Humulin R U-500 (Conc) Insulin Kwikpen) 75 unit subcut TIDCM 06/21/23 [History Last Taken 06/21/23] metaxalone 800 mg tablet 800 mg PO TID PRN MUSCLE CRAMPS 06/21/23 [History Last Taken Unknown] nitrofurantoin monohydrate/macrocrystals 100 mg capsule 100 mg PO BID UTI 06/21/23 [History Last Taken 06/20/23] verapamil 120 mg tablet,extended release 120 mg PO QHS BLOOD PRESSURE 06/21/23 [History Last Taken 06/20/23] Allergy/AdvReac Type Severity Reaction Status Date / Time JESENIA Inhibitors Allergy Intermediate Cough Verified 06/21/23 15:28 adhesive tape Allergy Intermediate blisters Verified 06/21/23 15:28 dulaglutide [From Trulicity] Allergy Intermediate Gastropares Verified 06/21/23 15:28 is chondroitin sulfate A Allergy Rash Verified 06/21/23 15:28 [From DuoVisc Visco Elastic] hyaluronic acid Allergy Rash Verified 06/21/23 15:28 [From DuoVisc Visco Elastic] NSAIDS (Non-Steroidal Allergy Other Verified 06/21/23 15:28 Anti-Inflamma Family History Other Alcohol abuse Anxiety Arthritis Asthma defect Cancer Diabetes High cholesterol Hypertension Seizures Surgical History History of appendectomy History of colonoscopy History of hysterectomy History of left mastectomy History of nasal cauterization Social History Smoking Status: Former smoker alcohol intake: current alcohol intake frequency: 0-2 drinks per day substance use type: does not use what type of physical activity do you participate in: none ROS ROS ED Constitutional Constitutional ED: Reports chills and fever(s); Denies sweats Eyes Eyes: Denies blurry vision or change in vision ENT ENT ED: Denies ear pain or sore throat Cardiovascular Cardiovascular: Reports chest pain; Denies palpitations or racing heartbeat Respiratory/Chest Respiratory/Chest: Reports cough, dyspnea and dyspnea on exertion; Denies sputum Gastrointestinal Gastrointestinal: Denies abdominal pain, constipation, diarrhea, nausea or vomiting Genitourinary Genitourinary ED: Denies dysuria, hematuria or urinary frequency Musculoskeletal Musculoskeletal: Reports myalgias; Denies arthralgias or neck pain Integumentary Denies abscess, Abrasions or rash Neurologic Neurologic: Reports headache(s); Denies paresthesias or weakness Psychiatric Psychiatric: Denies anxiety, depression, suicidal ideation or suicidal thoughts Endocrine Endocrinology: Denies polydipsia or polyuria EXAM Physical Exam Const Vital Signs: 06/21/23 15:28 06/21/23 15:50 06/21/23 15:50 Temperature 97.2 F L Temperature Source Temporal Pulse Rate 113 H Respiratory Rate 20 H Respiratory Effort Short of Breath Respiratory Pattern Normal Blood Pressure 157/80 H Blood Pressure Mean 105 Pulse Ox 90 Oxygen Delivery Method Room Air Room Air Room Air Oxygen Flow Rate (L/min) 06/21/23 15:56 06/21/23 16:00 06/21/23 16:00 Temperature Temperature Source Pulse Rate 107 H Respiratory Rate 16 Respiratory Effort Respiratory Pattern Normal Blood Pressure Blood Pressure Mean Pulse Ox 94 94 Oxygen Delivery Method Nasal Cannula Nasal Cannula Oxygen Flow Rate (L/min) 2 2 06/21/23 18:07 Temperature Temperature Source Pulse Rate 107 H Respiratory Rate 20 H Respiratory Effort Respiratory Pattern Blood Pressure 156/83 H Blood Pressure Mean 107 Pulse Ox 94 Oxygen Delivery Method Nasal Cannula Oxygen Flow Rate (L/min) 4 Positive well nourished General Appearance ED: NAD; Negative for pallor HEENT Reports moist mucous membranes atraumatic Eyes PERRL and EOMs intact bilaterally Neck no lymphadenopathy, supple and no meningeal signs Resp normal respiratory effort and clear to auscultation bilaterally Auscultation: Negative for rales, rhonchi or wheezes Cardio regular rate and regular rhythm GI non-tender Neuro oriented x3 and CN's II-XII intact bilaterally Rodger Coma Scale: document GCS findings Spontaneous Obeys Commands Oriented 15 Skin no wounds and skin turgor normal General Skin Exam: Negative for jaundice or pallor MDM MDM MDM Narrative Medical decision making narrative: 73-year-old female presenting with shortness of breath, cough, fever, chills. Ambulating pulse ox is 86% on arrival on room air. Patient does states that shefelt very dyspneic. Differential includes CHF, pneumonia, COVID, influenza, dehydration, electrolyte normalities, ACS, anemia, sepsis. Patient tachycardic,tachypneic, hypoxic on arrival. Sepsis work-up was initiated. Patient well-appearing and maintaining pulse ox of 94% on 2 L of nasal cannula. Patient doesnot appear to be wheezing on examination but I did give her breathing treatmentsto see if this would help her breathing. She was amenable to this.. CBC shows leukocytosis of 15.6. Hemoglobin stable 11.9. EKG on my interpretation shows asinus tachycardia rate 110 bpm without ischemic change or ectopy. Chest x-ray my interpretation does not show any acute cardiopulmonary process. The radiologist services and agrees. CMP shows normal liver function. Creatinine near baseline at 1.10. Glucose 333 without anion gap. Electrolytes within normal limits. Urinalysis consistent with UTI. D-dimer came back elevated and patient has CTA of the chest which does not show any PE or dissection but does show a small right apical infiltrate and a left small pleural effusion. Patientwas hypoxic on ambulation so she will need to be admitted. Rocephin and azithromycin were given in the ED. Patient was pancultured. Discussed with hospitalist for admission. Impression: 1. Hypoxic respiratory failure 2. Pneumonia 3. UTI Lab Data Attestation: I reviewed the patient's lab results. Labs: Laboratory Results - last 24 hr 06/21/23 06/21/23 06/21/23 15:49 15:52 15:52 WBC Cancelled Corrected WBC Cancelled RBC Cancelled Hgb Cancelled Hct Cancelled MCV Cancelled MCH Cancelled MCHC Cancelled RDW Std Deviation Cancelled RDW Coeff of Tom Cancelled Plt Count Cancelled MPV Cancelled Immature Gran % (Auto) Cancelled Neut % (Auto) Cancelled Lymph % (Auto) Cancelled [place]ala % (Auto) Cancelled Eos % (Auto) Cancelled Baso % (Auto) Cancelled Absolute Neuts (auto) Cancelled Absolute Lymphs (auto) Cancelled Total Counted Cancelled Neutrophils % (Manual) Cancelled Band Neutrophils % Cancelled Lymphocytes % (Manual) Cancelled Monocytes % (Manual) Cancelled Eosinophils % (Manual) Cancelled Basophils % (Manual) Cancelled Metamyelocytes % Cancelled Myelocytes % Cancelled Promyelocytes % Cancelled Blast Cells % Cancelled Plasma Cell % (Manual) Cancelled Other Cells % Cancelled Nucleated RBC % Cancelled Nucleated RBCs/100 WBC Cancelled Differential Comment Cancelled Diff Path Review Cancelled Hypersegmented Neuts Cancelled Atypical Lymphocytes Cancelled Reactive Lymphocytes Cancelled Smudge Cells Cancelled Toxic Granulation Cancelled Toxic Vacuolation Cancelled Dohle Bodies Cancelled Stacia Rods Cancelled Platelet Estimate Cancelled Plt Morphology Comment Cancelled RBC Morphology Cancelled Cancelled Polychromasia Cancelled Hypochromasia Cancelled Poikilocytosis Cancelled Basophilic Stippling Cancelled Anisocytosis Cancelled Microcytosis Cancelled Macrocytosis Cancelled Spherocytes Cancelled Sickle Cells Cancelled Target Cells Cancelled Tear Drop Cells Cancelled Ovalocytes Cancelled Stomatocytes Cancelled [place] Bodies Cancelled Cristela Cells Cancelled Bite Cells Cancelled Crenated Cell Cancelled Acanthocytes (Spur) Cancelled Rouleaux Cancelled Schistocytes Cancelled PT INR APTT D-Dimer Quant (PE/DVT) Sodium Cancelled Potassium Cancelled Chloride Cancelled Carbon Dioxide Cancelled Anion Gap Cancelled BUN Cancelled Creatinine Cancelled Estim Creat Clear Calc Cancelled Est GFR (MDRD) Af Amer Cancelled Est GFR (MDRD) Non-Af Cancelled BUN/Creatinine Ratio Cancelled Glucose Cancelled Lactic Acid Calcium Cancelled Total Bilirubin Cancelled AST Cancelled ALT Cancelled Alkaline Phosphatase Cancelled Total Protein Cancelled Albumin Cancelled Globulin Cancelled Albumin/Globulin Ratio Cancelled Urine Color Urine Clarity Urine pH Ur Specific [place] Urine Protein Urine Glucose (UA) Urine Ketones Urine Occult Blood Urine Nitrite Urine Bilirubin Urine Urobilinogen Ur Leukocyte Esterase Urine RBC Urine WBC Ur Squamous Epith Cells Urine Bacteria Urine Mucus POC Glucose 344 H 06/21/23 06/21/23 06/21/23 16:05 16:15 17:00 WBC 15.6 H Corrected WBC RBC 3.89 L Hgb 11.9 L Hct 36.8 L MCV 94.6 MCH 30.6 MCHC 32.3 RDW Std Deviation 45.2 H RDW Coeff of Tom 13.2 Plt Count 272 MPV 9.1 Immature Gran % (Auto) 0.600 Neut % (Auto) 79.9 H Lymph % (Auto) 8.1 L [place] % (Auto) 4.9 Eos % (Auto) 5.8 H Baso % (Auto) 0.7 Absolute Neuts (auto) 12.5 H Absolute Lymphs (auto) 1.26 Total Counted Neutrophils % (Manual) Band Neutrophils % Lymphocytes % (Manual) Monocytes % (Manual) Eosinophils % (Manual) Basophils % (Manual) Metamyelocytes % Myelocytes % Promyelocytes % Blast Cells % Plasma Cell % (Manual) Other Cells % Nucleated RBC % 0 Nucleated RBCs/100 WBC Differential Comment Diff Path Review Hypersegmented Neuts Atypical Lymphocytes Reactive Lymphocytes Smudge Cells Toxic Granulation Toxic Vacuolation Dohle Bodies Stacia Rods Platelet Estimate Plt Morphology Comment RBC Morphology Polychromasia Hypochromasia Poikilocytosis Basophilic Stippling Anisocytosis Microcytosis Macrocytosis Spherocytes Sickle Cells Target Cells Tear Drop Cells Ovalocytes Stomatocytes [place] Bodies [place] Cells Bite Cells Crenated Cell Acanthocytes (Spur) Rouleaux Schistocytes PT 14.0 INR 1.1 APTT 28.4 D-Dimer Quant (PE/DVT) 1.66 H* Sodium 134 L Potassium 4.3 Chloride 99 Carbon Dioxide 26.0 Anion Gap 9 BUN 15 Creatinine 1.10 H Estim Creat Clear Calc Est GFR (MDRD) Af Amer 63 Est GFR (MDRD) Non-Af 52 L BUN/Creatinine Ratio 13.6 Glucose 333 H Lactic Acid 1.4 Calcium 8.5 Total Bilirubin 0.60 AST 14 L ALT 16 Alkaline Phosphatase 69 Total Protein 7.6 Albumin 2.8 L Globulin 4.8 H Albumin/Globulin Ratio 0.6 L Urine Color Yellow Urine Clarity Clear Urine pH 5.0 Ur Specific [place] 1.020 Urine Protein 30 H Urine Glucose (UA) 1000 H Urine Ketones 150 A* Urine Occult Blood 10 H Urine Nitrite Negative Urine Bilirubin Negative Urine Urobilinogen 1 H Ur Leukocyte Esterase 500 H Urine RBC 0 SEEN Urine WBC 5-10 SEEN Ur Squamous Epith Cells 5-10 SEEN Urine Bacteria 1+ Urine Mucus 0 SEEN POC Glucose Radiography Diagnostic Testing: Clinical Impression(s) from Imaging Studies Chest X-Ray 06/21/23 15:41 IMPRESSION: Mild basilar atelectasis. Electronically Signed: Saúl Diaz DO at 16:43 EST Reading Location ID and State: [facility] [place] Tel [phone], Service support , Chest CTA 06/21/23 16:58 IMPRESSION: No demonstrated pulmonary embolism or arterial dissection. Bilateral basilar atelectasis. Interstitial prominence. Possible small focal right apical infiltrate. Small left pleural effusion. Cholelithiasis. Fatty liver. Left adrenal nodule. Electronically Signed: Saúl Diaz DO at 18:08 EST Reading Location ID and State: [facility] / [place] Tel [phone], Service support , Discharge Plan Triage Chief Complaint: Cough ED Provider: Elver Carrion Dx/Rx/DC Orders Primary Care Provider: Ilir Hernández What to do if you have Problems For any increased pain, shortness of breath, bleeding, nausea or vomiting, chestpain, or any unexpected problems, contact your Primary Care Provider. Call [facility] ([phone]) or report to the closest Emergency Room. Call 911 if necessary. 06/21/231906 <Electronically signed by Elver Carrion DO> Cosigner Signature (if applicable): CC: Dr. Ilir Hernández MD ~ Signed [facility] Work Phone: 1(184) 917-775011-07-2023 History of Present illness Narrative* Sherley Edgar PA-C - 06/21/2023 2:57 PM EST Presents to [facility] care triage with a chief complaint of wanting a COVID test. She was just at pulmonology prior to this and was placed on doxycycline. It is noted that she is febrile, tachycardic and hypoxic. 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 [employer] office was contacted and they would not put order in for covid test.. Discussed with patient she is hypoxic, has a fever, wheezing, tachypneic and tachycardic, at this point recommend being evaluated in the ER. BP 148/80 Pulse 112 Temp 37.4 C (99.3 F) Resp 28 Wt 92.1 kg (203 lb) SpO2 90% BMI 37.12kg/m [facility] Instructions* Patient Instructions* Yunier Owen MD - 06/21/2023 2:12 PM EST Methacholine challenge test to be scheduled at [facility]. Need to wait until completely cleared from current infection and will need to be off inhaled therapy for two weeks prior to test [facility] History of Present illness Narrative* Yunier Owen MD - 06/21/2023 1:30 PM EST Images from the original note were not included. . Respiratory [place] Note Patient name: Manisha Keith PCP: Ilir Hernández MD Referring Physician: same Consultation requested by Dr. Hernández for an opinion regarding chronic cough. My final recommendationswill be communicated back to the requesting physician by way of shared Medical record or letter to requesting physician via [place] mail. Note: Poor historian CC: cough HPI: Manisha Keith 73 year old obese female former 22 pack year smoker, quitting 2000 with PMH significant for h/o childhood asthma, allergies (grass, pollen, dust mites, may have had immunotherapy in the past), HLD, inflammatory arthritis on methotrexate, osteoporosis, RICARDO on CPAP, DM2, HTN, GERD, osteoporosis being referred for evaluation of chronic cough. Patient is currently ill with a urinary tract infection. She has a low-grade fever and nitrofurantoin. Recent drug eruption lower extremities. Cough dates back proximately 3 years. Her cough is bronchial in nature with production of white to yellow phlegm, more prominent in the morning. She does cough at night and a week as her fromsleep. At times she will have severe coughing jags that induce vomiting. She has heard occasional wheezing. She has shortness of breath with activity. Relates a history of allergies for immunotherapyin the past. Current treatment for her allergies include OTC antihistamine and Flonase nasal spray. Compounding her issues include severe disease. She is on Nexium twice daily. She does drink severalcups of coffee per day. She claims to be adherent to antireflux measures. Her pulmonary function tests are normal. Past chest CT has shown some mosaic attenuation that would be consistent with small airways obstruction and a right upper lobe semisolid nodule that has been stable on her most recent imaging. She has been on Trelegy Ellipta for a year with minimal improvement in her cough. DATA: PFT 05/12/2023: Review of spirometry shows no obstruction. Diffusion is normal Labs: Component Ref Range & Units 1 mo ago (05/06/23) 6 mo ago (12/07/22) WBC 3.70 - 11.00 k/uL 9.74 8.19 RBC 3.90 - 5.20 m/uL 4.25 4.12 Hemoglobin 11.5 - 15.5 g/dL 12.8 13.0 Hematocrit 36.0 - 46.0 % 40.1 40.8 MCV 80.0 - 100.0 fL 94.4 99.0 MCH 26.0 - 34.0 pg 30.1 31.6 MCHC 30.5 - 36.0 g/dL 31.9 31.9 RDW-CV 11.5 - 15.0 % 12.7 13.0 Platelet Count 150 - 400 k/uL 241 260 MPV 9.0 - 12.7 fL 10.4 9.7 Neutrophils % % 65.7 64.5 Abs Neut 1.45 - 7.50 k/uL 6.40 5.29 Lymphocytes % % 23.7 23.9 Abs Lymph 1.00 - 4.00 k/uL 2.31 1.96 Monocytes % % 6.6 6.5 Abs Attala <0.87 k/uL 0.64 0.53 Eosinophils % % 2.7 3.1 Abs Eosin <0.46 k/uL 0.26 0.25 Basophils % % 0.7 1.1 Abs Baso <0.11 k/uL 0.07 0.09 Immature Granulocytes % % 0.6 0.9 Abs Immature Gran <0.10 k/uL 0.06 0.07 NRBC /100 WBC 0.0 0.0 Absolute nRBC <0.01 k/uL <0.01 <0.01 Diff Type Auto Auto Imaging / Diagnostic Studies: Echocardiography Report: Transthoracic Echo [facility] Date of service: 05/16/2023 7:55:03 AM CLEANER CONCLUSIONS: - Technically difficult exam due to body habitus. - Exam indication: Shortness of Breath - The left ventricle is normal in size. There is mild concentric left ventricular hypertrophy. Leftventricular systolic function is normal. EF = 64 5% (2D biplane) Grade I left ventricular diastolicdysfunction. - The right ventricle is normal in size. Right ventricular systolic function is normal. - There are no significant valvular abnormalities. DATE OF EXAM: May 12 2023 1:55PM WRX [id number] - XR CHEST 2V FRONTAL/LAT / PROCEDURE REASON: multiple diagnoses CLINICAL HISTORY: SOB (shortness of breath) Chronic cough MQ: [id number] EXAM DATE/TIME: 05/12/2023 1:55 PM COMPARISON: 05/26/2020 RESULT: Lines, tubes, and devices: None. Lungs and pleura: No consolidation. No lung mass. No pleural effusion. No pneumothorax. Cardiomediastinal silhouette: Normal cardiomediastinal silhouette. Bones and soft tissues: Degenerative changes throughout the spine. IMPRESSION: No acute radiographic abnormality. Review of CXR shows slightly elevated right hemidiaphragm DATE OF EXAM: Mar 31 2023 1:22PM [facility] 0541 - CT CHEST WO IVCON / CLINICAL HISTORY: Lung nodule Comparison: 09/27/22 RESULT: Limitations: None. Lines, tubes, and devices: None. Lung parenchyma and airways: No consolidation. Semisolid apical groundglass nodule is stable in size and configuration. No developing abnormality. The central airways are patent. Pleural space: No pleural effusion. No pleural thickening. Lower neck, lymph nodes, and mediastinum: The imaged thyroid gland is normal. No lymphadenopathy inthe supraclavicular, axillary, mediastinal, or hilar regions. Heart, pericardium, and thoracic vessels: The thoracic aorta and main pulmonary artery are normal in caliber. The cardiac chambers are normal in size. Mild coronary artery atherosclerotic calcifications are noted, although the study is not optimized for coronary assessment. Trace pericardial fluid. Bones and soft tissues: No destructive bone lesion. Chest wall is unremarkable. Degenerative changes throughout the spine Upper abdomen: Images through the upper abdomen reveal stone filled gallbladder. Stable left adrenal nodule consistent with lipid rich benign adenoma. IMPRESSION: Stable right apical semisolid groundglass nodule. Continued follow-up in 6-12 months Cholelithiasis Left adrenal benign lipid rich adenoma Reviewed above chest CT and one obtained in Sep. RUL semisolid nodule is stable, some mosaic attenuation consistent with small airways obstruction PAST MEDICAL HISTORY Diagnosis Date Allergic rhinitis, cause unspecified Arthritis Asthma Childhood asthma Breast cancer (HCC) age 34-had lump, cancerous cells. no issues since, left Diverticulosis of colon (without mention of hemorrhage) Heme positive stool 2010 History of cervical cancer regular Paps for life Hyperlipidemia 2011 Inflammatory polyarthritis (HCC) Dr. 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 gabapentin (NEURONTIN) 300 mg capsule Take 1 capsule by mouth daily at bedtime. nitrofurantoin monohydrate and macrocrystal (MACROBID) 100 mg capsule Take 1 capsule by mouth two times a day with meals for 7 days. oxybutynin ER (DITROPAN XL) 10 mg 24 hr tablet Take 2 tablets by mouth once daily. Aug Betamethasone Dipropionate (DIPROLENE, AUGMENTED,) 0.05 % ointment Apply to affected area two times a day. FOLIC ACID ORAL Take by mouth. verapamil SR (CALAN SR) 120 mg CR tablet Take 1 tablet by mouth daily at bedtime. metFORMIN ER (GLUCOPHAGE XR) 500 mg 24 hr tablet Take 1 tablet by mouth daily with breakfast. atorvastatin (LIPITOR) 20 mg tablet Take 1 tablet by mouth daily at bedtime. For cholesterol. methotrexate 2.5 mg tablet Take 20 mg by mouth every Tuesday. HUMULIN R U-500, CONC, KWIKPEN 500 unit/mL (3 mL) inpn Inject subcutaneously three times daily. 70/70/40 melatonin 3 mg tablet Take 1 tablet at 9PM nightly. insulin needles, DISPOSABLE, (PEN NEEDLE) 31 gauge x 5/16 Use one needle per dose. 4 per day. ondansetron orally disintegrating (ZOFRAN ODT) 4 mg disintegrating tablet DISSOLVE 1 TABLET IN MOUTH THREE TIMES DAILY NEEDED FOR NAUSEA AND VOMITING blood sugar diagnostic ([employer] VERIO TEST STRIPS) test strip Test blood sugar(s) 3-4 times daily.Dx: Other DM Code E11.319 Insulin: Yes metaxalone (SKELAXIN) 800 mg tablet Take 1 tablet by mouth three times daily as needed for pain. gamqapxkbcu-vzoxkcdge-usvcfylp (TRELEGY ELLIPTA) 100-62.5-25 mcg inhalation powder Inhale 1 Puff asinstructed once daily. Cholecalciferol, Vitamin D3, 50 mcg (2,000 unit) cap Take 1 capsule by mouth once daily. escitalopram oxalate (LEXAPRO) 10 mg tablet Take 1 tablet by mouth once daily. esomeprazole (NEXIUM) 40 mg capsule Take 1 capsule by mouth twice daily before meals. 1/2 hr beforemeal. losartan (COZAAR) 100 mg tablet Take 1 tablet by mouth once daily. fluticasone (FLONASE) 50 mcg/actuation nasal spray USE 1 SPRAY IN EACH NOSTRIL ONCE DAILY AT BEDTIME DIRECTED hydroCHLOROthiazide (HYDRODIURIL, ESIDRIX) 12.5 mg capsule Take 1 capsule by mouth once daily. metoprolol succinate ER (TOPROL XL) 100 mg Take 1 tablet by mouth once daily. loratadine (CLARITIN) 10 mg tablet Take 1 tablet by mouth once daily. albuterol HFA (PROAIR HFA) 90 mcg/actuation inhaler Inhale 2 Puffs as instructed every 4 hours as needed. blood sugar diagnostic (BLOOD GLUCOSE TEST) test [...] Drops in the left eye twice daily. Social History Tobacco Use Smoking status: Former Packs/day: 0.75 Years: 30.00 Additional pack years: 0.00 Total pack years: 22.50 Types: Cigarettes Quit date: 08/15/2000 Years since quittin.8 Smokeless tobacco: Never Vaping Use Vaping Use: Never used Substance Use Topics Alcohol use: Never Comment: rarely Drug use: No [employer] Pets: none FAMILY HISTORY Problem Relation Age of Onset Alcohol abuse Mother None Father Cave in Stroke Sister Cancer Sister COPD Sister Breast Cancer Maternal Aunt PAST SURGICAL HISTORY Procedure Laterality Date ABDOMINAL SURGERY HX hx of feeding tube inserted APPENDECTOMY HX COLONOSCOPY FLX DX W/COLLJ SPEC WHEN PFRMD 06/26/2009 COLONOSCOPY FLX DX W/COLLJ SPEC WHEN PFRMD 04/10/2019 Colonoscopy COLONOSCOPY SCREENING 02/11/2022 Dr Olivas EGD 2010 EGD 02/11/2022 Dr Olivas ERCP DX COLLECTION SPECIMEN BRUSHING/WASHING 07/23/2008 Cholangiopancreatography (ERCP) ESOPHAGOGASTRODUODENOSCOPY TRANSORAL DIAGNOSTIC 04/10/2019 EGD EYE SURGERY HX MASTECTOMY Left age 34 Mastectomy - simple PAST SURGICAL HISTORY OF nose cauterized inside [facility] CORNEO-SCLL SCTJ Bilateral Cataract removal BILATERAL TOTAL ABDOMINAL HYSTERECT W/WO RMVL TUBE OVARY age 27 Hysterectomy, MARQUES cervical cancer, has one ovary left PMH, Social history, family history and surgical history reviewed and updated in EMR REVIEW OF SYSTEMS: CONSTITUTIONAL: No fevers, chills, nightsweats, unintended weight loss HEENT: Denies headaches. Persistent nasal congestion/sinus symptoms, allergy problems. EYES: No blurry vision, eye pain or itching CARDIOVASCULAR: No chest pain, palpitations, orthopnea, PND. Mild edema PULM: See HPI GI: Dysphagia, persistent GERD, no diarrhea or GI bleeding : No urinary complaints, including dysuria, gross hematuria or pyuria. NEURO: No balance problems, peripheral weakness/paresthesias or numbness of concern. MUSC-SKEL: Polyarticular joint pain without erythema PSY: No concerns regarding depression, anxiety INTEGUMENTARY: No history of eczema. New bilateral lower extremity nonpapular erythematous macules PHYSICAL EXAMINATION: BP 122/62 Pulse 110 Temp 100.5 Resp 17 SpO2 90% General Appearance: Obese female, appears ill. Skin: Skin color, texture, turgor normal, no suspicious or lesions. Sweating. Bilateral lower extremity erythematous nonraised macular rash Head: Normocephalic, no masses, lesions, tenderness or abnormalities. Eyes: Sclera, conjunctiva normal. Oropharynx: Deferred due to possible COVID. Neck: No JVD, no masses, no thyromegaly Lungs: Not labored, normal to percussion, bronchial cough, no wheezes or crackles. Heart: Regular rate and rhythm, no murmurs or gallops. Extremities: Bilateral edema, no clubbing. Musculoskeletal: No joint deformities or effusions. Lymph Nodes: No cervical lymphadenopathy and No supraclavicular lymphadenopathy. Assessment/Plan: 1. Chronic cough -Etiology of chronic cough multifactorial including acid reflux disease, upper airway cough syndrome and likely cough variant asthma -Currently appears to have acute bronchitis/URI. Ordered doxycycline -She will need a definitive methacholine challenge testing -Allergy assessment 2. GERD -Continue antireflux measures and twice daily Nexium -Consider revisit to gastroenterology 3. Former smoker -Former smoker without evidence of COPD -Does not qualify for lung cancer screening based on duration of her smoking cessation however she has a semisolid nodule that may be concerning for early adenocarcinoma 4. Lung nodule -See #3 -Pending surveillance CT per PCP Yunier Owen MD [facility] [place] [facility] Miscellaneous Notes* Telephone Encounter - Tiffany Calixto - 06/20/2023 3:02 PM EST Patient has been identified by name and date of : Yes Requested Prescriptions Pending Prescriptions Disp Refills gabapentin (NEURONTIN) 300 mg capsule 90 capsule 2 Sig: Take 1 capsule by mouth daily at bedtime. RX INSTRUCTIONS: Patient aware RX will be sent to pharmacy. No need to notify patient. Tiffany Canseco documented [facility] History of Present illness Narrative* Annette Ness RDMS - 06/16/2023 2:30 PM EDT Radiology Service Progress Note PATIENT NAME: Manisha Keith DATE OF SERVICE: June 16, 2023 TIME: 2:55 PM PATIENT IDENTITY VERIFICATION COMPLETED USING TWO (2) IDENTIFIERS: Name and Date of confirmedby patient verbally. FALL SCREENING: Has the patient had 2 falls in the last year or 1 fall with injury or currently using an Ambulatory Assistive Device (Walker, Cane, Wheelchair, Crutches, etc.)? No PATIENT GENDER DATA: Female. status: : No status: NO. PATIENT RELEVANT IMPLANT DATA REVIEWED: Not Applicable RADIOLOGY DEPARTMENT: Ultrasound PERIPHERAL IV DATA: Not applicable SIGNED BY: Annette Ness RDMS June 16, 2023 2:55 PM documented [facility]23 Instructions* Patient Instructions* Meron Ramos APRN.CNP - 06/15/2023 10:37 AM EDT Take Macrobid to help with urinary symptoms Get plenty of water Schedule ultrasound Red flag symptoms go to ER Follow up pending test results documented [facility] History of Present illness Narrative* Meron Ramos APRN.CNP - 06/15/2023 10:20 AM EDT This is a 73 year old female who presents today with: Patient presents with: Acute Visit: UTI HISTORY OF PRESENT ILLNESS: Manisha Keith is a 73 year old female. Patient presents with: Acute Visit: UTI Patient of Dr. Hernández here in the office for concerns for UTI. Left flank pain started yesterday. Pt reports history of incontinence but denies hematuria, dysuria. Reports urine is dark. Having normal bowel movements. Denies abdominal/flank pain, fever, nausea / vomiting or chills. PAST MEDICAL HISTORY: PAST MEDICAL HISTORY Diagnosis Date Allergic rhinitis, cause unspecified Arthritis Asthma mild asthma Breast cancer (HCC) age 34-had lump, cancerous cells. no issues since, left Diverticulosis of colon (without mention of hemorrhage) Heme positive stool 2010 History of cervical cancer regular Paps for life Hyperlipidemia 2011 Inflammatory polyarthritis (HCC) Dr. 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) Sleep apnea Type II or unspecified type diabetes mellitus without mention of complication, not stated as uncontrolled Unspecified essential hypertension PAST SURGICAL HISTORY Procedure Laterality Date ABDOMINAL SURGERY HX hx of feeding tube inserted APPENDECTOMY APPENDECTOMY HX BREAST SURGERY HX COLONOSCOPY FLX DX W/COLLJ SPEC WHEN PFRMD 06/26/2009 COLONOSCOPY FLX DX W/COLLJ SPEC WHEN PFRMD 04/10/2019 Colonoscopy COLONOSCOPY SCREENING 02/11/2022 Dr Olivas EGD 2010 EGD 02/11/2022 Dr Olivas ERCP DX COLLECTION SPECIMEN BRUSHING/WASHING 07/23/2008 Cholangiopancreatography (ERCP) ESOPHAGOGASTRODUODENOSCOPY TRANSORAL DIAGNOSTIC 04/10/2019 EGD EYE SURGERY HX MASTECTOMY Left age 34 Mastectomy - simple MASTECTOMY HX PAST SURGICAL HISTORY OF nose cauterized inside [facility] CORNEO-SCLL SCTJ Bilateral Cataract removal BILATERAL TOTAL ABDOMINAL HYSTERECT W/WO [facility] TUBE OVARY age 27 Hysterectomy, MARQUES cervical cancer, has one ovary left VAGINAL HYSTERECTOMY ALLERGIES Jesenia Inhibitors, Nsaids (Non-Steroidal Anti-Inflammatory Drug), Tape [Adhesive Tape (Rosins)], and Trulicity [Dulaglutide] MEDICATIONS Current Outpatient Medications Medication Sig oxybutynin ER (DITROPAN XL) 10 mg 24 hr tablet Take 2 tablets by mouth once daily. Aug Betamethasone Dipropionate (DIPROLENE, AUGMENTED,) 0.05 % ointment Apply to affected area two times a day. FOLIC ACID ORAL Take by mouth. verapamil SR (CALAN SR) 120 mg CR tablet Take 1 tablet by mouth daily at bedtime. metFORMIN ER (GLUCOPHAGE XR) 500 mg 24 hr tablet Take 1 tablet by mouth daily with breakfast. atorvastatin (LIPITOR) 20 mg tablet Take 1 tablet by mouth daily at bedtime. For cholesterol. methotrexate 2.5 mg tablet Take 20 mg by mouth every Tuesday. HUMULIN R U-500, CONC, KWIKPEN 500 unit/mL (3 mL) inpn Inject subcutaneously three times daily. 70/70/40 melatonin 3 mg tablet Take 1 tablet at 9PM nightly. insulin needles, DISPOSABLE, (PEN NEEDLE) 31 gauge x 5/16 Use one needle per dose. 4 per day. ondansetron orally disintegrating (ZOFRAN ODT) 4 mg disintegrating tablet DISSOLVE 1 TABLET IN MOUTH THREE TIMES DAILY NEEDED FOR NAUSEA AND VOMITING blood sugar diagnostic ([employer] VERIO TEST STRIPS) test strip Test blood sugar(s) 3-4 times daily.Dx: Other DM Code E11.319 Insulin: Yes metaxalone (SKELAXIN) 800 mg tablet Take 1 tablet by mouth three times daily as needed for pain. twavcjzruda-qvumdaixw-mxyjivye (TRELEGY ELLIPTA) 100-62.5-25 mcg inhalation powder Inhale 1 Puff asinstructed once daily. Cholecalciferol, Vitamin D3, 50 mcg (2,000 unit) cap Take 1 capsule by mouth once daily. gabapentin (NEURONTIN) 300 mg capsule Take 1 capsule by mouth daily at bedtime for 90 days. escitalopram oxalate (LEXAPRO) 10 mg tablet Take 1 tablet by mouth once daily. esomeprazole (NEXIUM) 40 mg capsule Take 1 capsule by mouth twice daily before meals. 1/2 hr beforemeal. losartan (COZAAR) 100 mg tablet Take 1 tablet by mouth once daily. fluticasone (FLONASE) 50 mcg/actuation nasal spray USE 1 SPRAY IN EACH NOSTRIL ONCE DAILY AT BEDTIME DIRECTED hydroCHLOROthiazide (HYDRODIURIL, ESIDRIX) 12.5 mg capsule Take 1 capsule by mouth once daily. metoprolol succinate ER (TOPROL XL) 100 mg Take 1 tablet by mouth once daily. loratadine (CLARITIN) 10 mg tablet Take 1 tablet by mouth once daily. albuterol HFA (PROAIR HFA) 90 mcg/actuation inhaler Inhale 2 Puffs as instructed every 4 hours as needed. blood sugar diagnostic (BLOOD GLUCOSE TEST) test [...] Drops in the left eye twice daily. No current facility-administered medications for this visit. FAMILY HISTORY Problem Relation Age of Onset None Mother None Father Stroke Sister Cancer Sister COPD Sister Breast Cancer Maternal Aunt Social History Tobacco Use Smoking status: Former Packs/day: 0.75 Years: 30.00 Additional pack years: 0.00 Total pack years: 22.50 Types: Cigarettes Quit date: 08/15/2000 Years since quittin.8 Smokeless tobacco: Never Vaping Use Vaping Use: Never used Substance Use Topics Alcohol use: Never Comment: rarely Drug use: No REVIEW OF SYSTEMS GENERAL: No weight loss, malaise or fevers/chills HEENT: Negative for frequent or significant headaches, No changes in hearing or vision. NECK: Negative for lumps, goiter, pain and significant neck swelling RESPIRATORY: Negative for cough, hemoptysis, wheezing, dyspnea or shortness of breath CARDIOVASCULAR: Negative for chest pain, leg swelling, orthopnea, or palpitations GI: No nausea, vomiting, or diarrhea/constipation. No hematochezia/melena. No heartburn or reflux symptoms. : Decreased Urine Stream, Left flank pain MUSCULOSKELETAL: Negative for joint pain or swelling. SKIN: Negative for lesions, rash, and itching ENDOCRINE: Negative for cold or heat intolerance, polyuria, polydipsia and goiter NEURO: No history of headaches, syncope, paralysis, seizures or tremors MOOD: Negative for depression, anxiety, or suicidal ideation. EXAM: BP 142/70 Pulse 86 Resp 14 Wt 95.3 kg (210 lb) SpO2 96% BMI 38.40 kg/m PHYSICAL EXAM: General Appearance: Well appearing, alert, in no acute distress, well-hydrated, well nourished.. Skin: Skin color, texture, turgor normal, no suspicious rashes or lesions. Head: Normocephalic, no masses, lesions, tenderness or abnormalities. Eyes: Anicteric sclera. Pupils are equally round and reactive to light. Extraocular movements are intact. . Lungs: Lungs clear to auscultation. No wheezing, rhonchi, rales.. Heart: RRR without murmur, gallop, or rubs. No ectopy. Abdomen: Abdomen soft, non-tender. Bowel sounds normal. No masses, organomegaly, Positive findings:L side CVA tenderness / Suprapubic Fullness Neurologic: Gait normal. Reflexes normal and symmetric. Sensation grossly intact. ASSESSMENT/PLAN: 1. Left flank pain - ICD9: 789.09, ICD10: R10.9 (primary diagnosis) - Begin treatment with Macrobid 100mg BID x 7 days - Work up with Ultrasound Kidney/Bladder STAT to rule out kidney stones - NITROFURANTOIN MONOHYDRATE & MACROCRYSTAL 100 MG ORAL CAP - URINE CULTURE - URINALYSIS, WITH MICROSCOPIC - US KIDNEY/BLADDER 2. Acute cystitis without hematuria - ICD9: 595.0, ICD10: N30.00 - Same plan as #1 Follow up pending test results Discussed treatment plan and patient voices understanding. Patient's questions answered appropriately. Medications and potential side effects were discussed and patient voices understanding. Meron Ramos APRN.MATERIAL LOADER This note was partially generated using [employer] voice recognition system. Note was reviewed for accuracy. There may be minor misspellings or grammar miscues with [employer] voice recognition. documented [facility]10[facility] Miscellaneous Notes* Telephone Encounter - Carmen Schafer LPN - 06/14/2023 4:45 PM EDT Phoned patient and she reported symptoms weren't bad enough to warrant ER of EC. Patient agreeable with being seen in office. No appointments noted with provider or team. Scheduled with Meron Ramos for acute visit. * Telephone Encounter - Ilir Hernández MD - 06/14/2023 4:32 PM EDT Needs seen. Can use express care or er if bad * Telephone Encounter - Gertrudis Newman RN - 06/14/2023 4:06 PM EDT Patient calls and states for the past 2 hours she has noticed that she has pain in the left lower abdomen around her kidney. Patient is worried that she has an infection. Patient asking if provider will put in orders for her to come in and get her urine checked out? Please review and advise, Gertrudis Newman RN\\ documented in [facility]10[facility] History of Present illness Narrative* Ilir Hernández MD - 06/13/2023 3:44 PM EDT Patient presents with: Rash HPI: Patient presents today for office visit for follow up. Diagnosed with stasis dermatitis. Has been there a month. Using triamcinolone. No fever or chills. No pain. No redness or warmth. No changes in soaps or detergents. Primarily still on legs. Still with chronic cough. No fever or chills. Had pfts which were negative. Had chest xray. Treating reflux. Is not using trilegy daily like she should. Uses when she thinks she needs it No new chest discomfort. Same as what she has had before. See previous [facility] note on 05/14/23 Presents with a rash on her right leg over the past couple weeks. She states she actually seen her primary care and mentioned it to him but did not have specific treatment for it called in. She has been having swelling in her legs and they had switched a blood pressure medication that they thought was causing this. States her swelling has improved but her right leg is still itchy. No new exposures. No history of eczema or psoriasis. No fever or chills. No pain in the leg, just itchy. MEDICATIONS: Current Outpatient Medications Medication Sig oxybutynin ER (DITROPAN XL) 10 mg 24 hr tablet Take 2 tablets by mouth once daily. FOLIC ACID ORAL Take by mouth. verapamil SR (CALAN SR) 120 mg CR tablet Take 1 tablet by mouth daily at bedtime. metFORMIN ER (GLUCOPHAGE XR) 500 mg 24 hr tablet Take 1 tablet by mouth daily with breakfast. atorvastatin (LIPITOR) 20 mg tablet Take 1 tablet by mouth daily at bedtime. For cholesterol. methotrexate 2.5 mg tablet Take 20 mg by mouth every Tuesday. HUMULIN R U-500, CONC, KWIKPEN 500 unit/mL (3 mL) inpn Inject subcutaneously three times daily. 70/70/40 melatonin 3 mg tablet Take 1 tablet at 9PM nightly. insulin needles, DISPOSABLE, (PEN NEEDLE) 31 gauge x 5/16 Use one needle per dose. 4 per day. ondansetron orally disintegrating (ZOFRAN ODT) 4 mg disintegrating tablet DISSOLVE 1 TABLET IN MOUTH THREE TIMES DAILY NEEDED FOR NAUSEA AND VOMITING blood sugar diagnostic ([employer] VERIO TEST STRIPS) test strip Test blood sugar(s) 3-4 times daily.Dx: Other DM Code E11.319 Insulin: Yes metaxalone (SKELAXIN) 800 mg tablet Take 1 tablet by mouth three times daily as needed for pain. mjxzljlcnwo-yjvjsthpr-tksdflta (TRELEGY ELLIPTA) 100-62.5-25 mcg inhalation powder Inhale 1 Puff asinstructed once daily. Cholecalciferol, Vitamin D3, 50 mcg (2,000 unit) cap Take 1 capsule by mouth once daily. gabapentin (NEURONTIN) 300 mg capsule Take 1 capsule by mouth daily at bedtime for 90 days. escitalopram oxalate (LEXAPRO) 10 mg tablet Take 1 tablet by mouth once daily. esomeprazole (NEXIUM) 40 mg capsule Take 1 capsule by mouth twice daily before meals. 1/2 hr beforemeal. losartan (COZAAR) 100 mg tablet Take 1 tablet by mouth once daily. fluticasone (FLONASE) 50 mcg/actuation nasal spray USE 1 SPRAY IN EACH NOSTRIL ONCE DAILY AT BEDTIME DIRECTED hydroCHLOROthiazide (HYDRODIURIL, ESIDRIX) 12.5 mg capsule Take 1 capsule by mouth once daily. metoprolol succinate ER (TOPROL XL) 100 mg Take 1 tablet by mouth once daily. loratadine (CLARITIN) 10 mg tablet Take 1 tablet by mouth once daily. albuterol HFA (PROAIR HFA) 90 mcg/actuation inhaler Inhale 2 Puffs as instructed every 4 hours as needed. blood sugar diagnostic (BLOOD GLUCOSE TEST) test [...] Drops in the left eye twice daily. No current facility-administered medications for this visit. ALLERGIES: ALLERGIES Allergen Reactions Jesenia Inhibitors Cough Nsaids (Non-Steroid* GI Upset Tape [Adhesive Tape* Other: See Comments Blisters from surgical tape Trulicity [Dulaglut* Other: See Comments Gastroparesis PAST MEDICAL HISTORY Diagnosis Date Allergic rhinitis, cause unspecified Arthritis Asthma mild asthma Breast cancer (HCC) age 34-had lump, cancerous cells. no issues since, left Diverticulosis of colon (without mention of hemorrhage) Heme positive stool 2010 History of cervical cancer regular Paps for life Hyperlipidemia 2010 Inflammatory polyarthritis (HCC) Dr. 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) Sleep apnea Type II or unspecified type diabetes mellitus without mention of complication, not stated as uncontrolled Unspecified essential hypertension PAST SURGICAL HISTORY Procedure Laterality Date ABDOMINAL SURGERY HX hx of feeding tube inserted APPENDECTOMY APPENDECTOMY HX BREAST SURGERY HX COLONOSCOPY FLX DX W/COLLJ SPEC WHEN PFRMD 06/26/2009 COLONOSCOPY FLX DX W/COLLJ SPEC WHEN PFRMD 04/10/2019 Colonoscopy COLONOSCOPY SCREENING 02/11/2022 Dr Olivas EGD 2010 EGD 02/11/2022 Dr Olivas ERCP DX COLLECTION SPECIMEN BRUSHING/WASHING 07/23/2008 Cholangiopancreatography (ERCP) ESOPHAGOGASTRODUODENOSCOPY TRANSORAL DIAGNOSTIC 04/10/2019 EGD EYE SURGERY HX MASTECTOMY Left age 34 Mastectomy - simple MASTECTOMY HX PAST SURGICAL HISTORY OF nose cauterized inside [facility] CORNEO-SCLL SCTJ Bilateral Cataract removal BILATERAL TOTAL ABDOMINAL HYSTERECT W/WO [facility]VL TUBE OVARY age 27 Hysterectomy, MARQUES cervical cancer, has one ovary left VAGINAL HYSTERECTOMY FAMILY HISTORY Problem Relation Age of Onset None Mother None Father Stroke Sister Cancer Sister COPD Sister Breast Cancer Maternal Aunt Social History Tobacco Use Smoking status: Former Packs/day: 0.75 Years: 30.00 Additional pack years: 0.00 Total pack years: 22.50 Types: Cigarettes Quit date: 08/15/2000 Years since quittin.8 Smokeless tobacco: Never Vaping Use Vaping Use: Never used Substance Use Topics Alcohol use: Never Comment: rarely Drug use: No Reviewed current medications, allergies, past medical history, surgical history, family history andsocial history today. REVIEW OF SYSTEMS All other reviewed and negative other than HPI. H VITALS: BP 118/68 Pulse 82 Ht 157.5 cm (5' 2.01) Wt 94.5 kg (208 lb 6.4 oz) SpO2 91% BMI 38.10 kg/m Last 4 Encounter Wt Readings: Date: Wt: 06/13/2023 94.5 kg (208 lb 6.4 oz) 05/14/2023 93.4 kg (206 lb) 05/12/2023 93 kg (205 lb) 05/06/2023 93.6 kg (206 lb 6.4 oz) PHYSICAL EXAMINATION: General appearance: Well appearing, alert, in no acute distress, well-hydrated, well nourished. and Skin: dry skin. Some pink papular areas. Does not appear to be infected or petechial. No warmth or tenderness. Head: Normocephalic, no masses, lesions, tenderness or abnormalities Lungs: Lungs clear to auscultation. No wheezing, rhonchi, rales Extremities: trace edema. ASSESSMENT/PLAN: 1. Chronic cough - ICD9: 786.2, ICD10: R05.3 (primary diagnosis) - use trelegy daily. - CONSULT TO PULM/CRITICAL CARE 2. Inflammatory polyarthritis (HCC) - ICD9: 714.9, ICD10: M06.4 - stable. 3. Primary hypertension - ICD9: 401.9, ICD10: I10 - Controlled - Continue current medications 4. Mixed hyperlipidemia - ICD9: 272.2, ICD10: E78.2 - stable. 5. Dermatitis - ICD9: 692.9, ICD10: L30.9 - change meds. May be venous stasis however see derm to be on safe side. Elevate prn. Use moisturizing cream. Red flags for re-assessment reviewed with patient in detail. Discussed risks and benefits of new medication with the patient. Advised them to call if any side effects or questions. - CONSULT TO DERMATOLOGY - BETAMETHASONE, AUGMENTED 0.05 % TOPICAL OINTMENT Ilir Hernández MD [facility] Miscellaneous Notes* Telephone Encounter - [place] Gabriel RN - 06/13/2023 3:07 PM EDT Patient last seen 09/14/21. Requesting refill of Ditropan. Scheduled patient an annual exam for 08/02. Please file pending RX. Requested Prescriptions Pending Prescriptions Disp Refills oxybutynin ER (DITROPAN XL) 10 mg 24 hr tablet 180 tablet 0 Sig: Take 2 tablets by mouth once daily. [place] Gabriel RN [facility] History of Past illness Narrative* Problem Noted Date Diagnosed Date Resolved Date Encounter for attention to gastrostomy 06/13/2023 07/04/2023 Acute pain of both knees 06/05/201910/2021 Routine general medical exam ination at a health care facility 07/04/2009 11/22/2013 Malignant neoplasm of female breast 07/30/2008 05/25/2016 Esophagitis, unspecified 07/23/2008 Other specified disorder of bladder 06/20/2007 11/25/2016 Unspecified sinusitis (chronic) 06/01/2007 05/25/2016 Dysuria 01/02/2007 05/25/2016 Irritable bowel syndrome 06/04/2006 Essential hypertension, benign 05/28/2005 09/01/2007 Primary localized osteoarthr osis, pelvic region and thigh 05/28/2005 06/04/2006 Diabetes 05/28/2005 06/27/2015 Unspecified sleep apnea 05/28/200511/14 Overview: PSG done 11/13/2002 @ [facility] . AHI 12 . Report sent to scan into [employer]. 12/05/[address] Norton Heme positive stool 11/23/19 14 documented as of this encounter (statuses as of 07/04/2023) [facility] of Past illness Narrative* Problem Noted Date Diagnosed Date Resolved Date Encounter for attention to gastrostomy 06/13/2023 07/04/2023 Acute pain of both knees 06/05/201910/2021 Routine general medical exam ination at a health care facility 07/04/2009 11/22/2013 Malignant neoplasm of female breast 07/30/2008 05/25/2016 Esophagitis, unspecified 07/23/2008 Other specified disorder of bladder 06/20/2007 11/25/2016 Unspecified sinusitis (chronic) 06/01/2007 05/25/2016 Dysuria 01/02/2007 05/25/2016 Irritable bowel syndrome 06/04/2006 Essential hypertension, benign 05/28/2005 09/01/2007 Primary localized osteoarthr osis, pelvic region and thigh 05/28/2005 06/04/2006 Diabetes 05/28/2005 06/27/2015 Unspecified sleep apnea 05/28/200511/14 Overview: PSG done 11/13/2002 @ [facility] . AHI 12 . Report sent to scan into [employer]. 12/05/[address] Errol Garcia positive stool 11/23/19 14 documented as of this encounter (statuses as of 07/05/2023) [facility] of Past illness Narrative* Problem Noted Date Diagnosed Date Resolved Date Encounter for attention to gastrostomy 06/13/2023 07/04/2023 Acute pain of both knees 06/05/201910/2021 Routine general medical exam ination at a health care facility 07/04/2009 11/22/2013 Malignant neoplasm of female breast 07/30/2008 05/25/2016 Esophagitis, unspecified 07/23/2008 Other specified disorder of bladder 06/20/2007 11/25/2016 Unspecified sinusitis (chronic) 06/01/2007 05/25/2016 Dysuria 01/02/2007 05/25/2016 Irritable bowel syndrome 06/04/2006 Essential hypertension, benign 05/28/2005 09/01/2007 Primary localized osteoarthr osis, pelvic region and thigh 05/28/2005 06/04/2006 Diabetes 05/28/2005 06/27/2015 Unspecified sleep apnea 05/28/200511/14 Overview: PSG done 11/13/2002 @ [facility] . AHI 12 . Report sent to scan into [employer]. 12/05/[address] Errol Garcia positive stool 11/23/19 14 documented as of this encounter (statuses as of 07/06/2023) [facility] of Past illness Narrative* Problem Noted Date Diagnosed Date Resolved Date Encounter for attention to gastrostomy 06/13/2023 07/04/2023 Acute pain of both knees 06/05/201910/2021 Routine general medical exam ination at a health care facility 07/04/2009 11/22/2013 Malignant neoplasm of female breast 07/30/2008 05/25/2016 Esophagitis, unspecified 07/23/2008 Other specified disorder of bladder 06/20/2007 11/25/2016 Unspecified sinusitis (chronic) 06/01/2007 05/25/2016 Dysuria 01/02/2007 05/25/2016 Irritable bowel syndrome 06/04/2006 Essential hypertension, benign 05/28/2005 09/01/2007 Primary localized osteoarthr osis, pelvic region and thigh 05/28/2005 06/04/2006 Diabetes 05/28/2005 06/27/2015 Unspecified sleep apnea 05/28/200511/14 Overview: PSG done 11/13/2002 @ [facility] . AHI 12 . Report sent to scan into [employer]. 12/05/[address] Norton Heme positive stool 11/23/19 14 documented as of this encounter (statuses as of 07/08/2023) [facility] illness Narrative* Problem Noted Date Diagnosed Date Resolved Date Encounter for attention to gastrostomy 06/13/2023 07/04/2023 Acute pain of both knees 06/05/201910/2021 Routine general medical exam ination at a health care facility 07/04/2009 11/22/2013 Malignant neoplasm of female breast 07/30/2008 05/25/2016 Esophagitis, unspecified 07/23/2008 Other specified disorder of bladder 06/20/2007 11/25/2016 Unspecified sinusitis (chronic) 06/01/2007 05/25/2016 Dysuria 01/02/2007 05/25/2016 Irritable bowel syndrome 06/04/2006 Essential hypertension, benign 05/28/2005 09/01/2007 Primary localized osteoarthr osis, pelvic region and thigh 05/28/2005 06/04/2006 Diabetes 05/28/2005 06/27/2015 Unspecified sleep apnea 05/28/200511/14 Overview: PSG done 11/13/2002 @ [facility] . AHI 12 . Report sent to scan into [employer]. 12/05/[address] Errol Garcia positive stool 11/23/19 14 documented as of this encounter (statuses as of 07/27/2023) [facility] Narrative* Problem Noted Date Diagnosed Date Resolved Date Encounter for attention to gastrostomy 06/13/2023 07/04/2023 Acute pain of both knees 06/05/201910/2021 Routine general medical exam ination at a health care facility 07/04/2009 11/22/2013 Malignant neoplasm of female breast 07/30/2008 05/25/2016 Esophagitis, unspecified 07/23/2008 Other specified disorder of bladder 06/20/2007 11/25/2016 Unspecified sinusitis (chronic) 06/01/2007 05/25/2016 Dysuria 01/02/2007 05/25/2016 Irritable bowel syndrome 06/04/2006 Essential hypertension, benign 05/28/2005 09/01/2007 Primary localized osteoarthr osis, pelvic region and thigh 05/28/2005 06/04/2006 Diabetes 05/28/2005 06/27/2015 Unspecified sleep apnea 05/28/200511/14 Overview: PSG done 11/13/2002 @ [facility] . AHI 12 . Report sent to scan into [employer]. 12/05/[address] Errol Garcia positive stool 11/23/19 14 documented as of this encounter (statuses as of 07/28/2023) [facility] Narrative* Problem Noted Date Diagnosed Date Resolved Date Encounter for attention to gastrostomy 06/13/2023 07/04/2023 Acute pain of both knees 06/05/201910/2021 Routine general medical exam ination at a health care facility 07/04/2009 11/22/2013 Malignant neoplasm of female breast 07/30/2008 05/25/2016 Esophagitis, unspecified 07/23/2008 Other specified disorder of bladder 06/20/2007 11/25/2016 Unspecified sinusitis (chronic) 06/01/2007 05/25/2016 Dysuria 01/02/2007 05/25/2016 Irritable bowel syndrome 06/04/2006 Essential hypertension, benign 05/28/2005 09/01/2007 Primary localized osteoarthr osis, pelvic region and thigh 05/28/2005 06/04/2006 Diabetes 05/28/2005 06/27/2015 Unspecified sleep apnea 05/28/200511/14 Overview: PSG done 11/13/2002 @ [facility] . AHI 12 . Report sent to scan into [employer]. 12/05/[address] Errol Garcia positive stool 11/23/19 14 documented as of this encounter (statuses as of 07/29/2023) [facility] Narrative* Problem Noted Date Diagnosed Date Resolved Date Encounter for attention to gastrostomy 06/13/2023 07/04/2023 Acute pain of both knees 06/05/201910/2021 Routine general medical exam ination at a health care facility 07/04/2009 11/22/2013 Malignant neoplasm of female breast 07/30/2008 05/25/2016 Esophagitis, unspecified 07/23/2008 Other specified disorder of bladder 06/20/2007 11/25/2016 Unspecified sinusitis (chronic) 06/01/2007 05/25/2016 Dysuria 01/02/2007 05/25/2016 Irritable bowel syndrome 06/04/2006 Essential hypertension, benign 05/28/2005 09/01/2007 Primary localized osteoarthr osis, pelvic region and thigh 05/28/2005 06/04/2006 Diabetes 05/28/2005 06/27/2015 Unspecified sleep apnea 05/28/200511/14 Overview: PSG done 11/13/2002 @ [facility] . AHI 12 . Report sent to scan into [employer]. 12/05/[address] Errol Garcia positive stool 11/23/19 14 documented as of this encounter (statuses as of 08/05/2023) [facility] Narrative* Problem Noted Date Diagnosed Date Resolved Date Encounter for attention to gastrostomy 06/13/2023 07/04/2023 Acute pain of both knees 06/05/201910/2021 Routine general medical exam ination at a health care facility 07/04/2009 11/22/2013 Malignant neoplasm of female breast 07/30/2008 05/25/2016 Esophagitis, unspecified 07/23/2008 Other specified disorder of bladder 06/20/2007 11/25/2016 Unspecified sinusitis (chronic) 06/01/2007 05/25/2016 Dysuria 01/02/2007 05/25/2016 Irritable bowel syndrome 06/04/2006 Essential hypertension, benign 05/28/2005 09/01/2007 Primary localized osteoarthr osis, pelvic region and thigh 05/28/2005 06/04/2006 Diabetes 05/28/2005 06/27/2015 Unspecified sleep apnea 05/28/200511/14 Overview: PSG done 11/13/2002 @ [facility] . AHI 12 . Report sent to scan into [employer]. 12/05/[address] Norton Heme positive stool 11/23/19 14 documented as of this encounter (statuses as of 09/19/2023) [facility] illness Narrative* Problem Noted Date Diagnosed Date Resolved Date Encounter for attention to gastrostomy 06/13/2023 07/04/2023 Acute pain of both knees 06/05/201910/2021 Routine general medical exam ination at a health care facility 07/04/2009 11/22/2013 Malignant neoplasm of female breast 07/30/2008 05/25/2016 Esophagitis, unspecified 07/23/2008 Other specified disorder of bladder 06/20/2007 11/25/2016 Unspecified sinusitis (chronic) 06/01/2007 05/25/2016 Dysuria 01/02/2007 05/25/2016 Irritable bowel syndrome 06/04/2006 Essential hypertension, benign 05/28/2005 09/01/2007 Primary localized osteoarthr osis, pelvic region and thigh 05/28/2005 06/04/2006 Diabetes 05/28/2005 06/27/2015 Unspecified sleep apnea 05/28/200511/14 Overview: PSG done 11/13/2002 @ [facility] . AHI 12 . Report sent to scan into [employer]. 12/05/[address] Errol Garcia positive stool 11/23/19 14 documented as of this encounter (statuses as of 09/30/2023) [facility] Narrative* Problem Noted Date Diagnosed Date Resolved Date Encounter for attention to gastrostomy 06/13/2023 07/04/2023 Acute pain of both knees 06/05/201910/2021 Routine general medical exam ination at a health care facility 07/04/2009 11/22/2013 Malignant neoplasm of female breast 07/30/2008 05/25/2016 Esophagitis, unspecified 07/23/2008 Other specified disorder of bladder 06/20/2007 11/25/2016 Unspecified sinusitis (chronic) 06/01/2007 05/25/2016 Dysuria 01/02/2007 05/25/2016 Irritable bowel syndrome 06/04/2006 Essential hypertension, benign 05/28/2005 09/01/2007 Primary localized osteoarthr osis, pelvic region and thigh 05/28/2005 06/04/2006 Diabetes 05/28/2005 06/27/2015 Unspecified sleep apnea 05/28/200511/14 Overview: PSG done 11/13/2002 @ [facility] . AHI 12 . Report sent to scan into [employer]. 12/05/[address] Errol Garcia positive stool 11/23/19 14 documented as of this encounter (statuses as of 10/05/2023) [facility] Narrative* Problem Noted Date Diagnosed Date Resolved Date Encounter for attention to gastrostomy 06/13/2023 07/04/2023 Acute pain of both knees 06/05/201910/2021 Routine general medical exam ination at a health care facility 07/04/2009 11/22/2013 Malignant neoplasm of female breast 07/30/2008 05/25/2016 Esophagitis, unspecified 07/23/2008 Other specified disorder of bladder 06/20/2007 11/25/2016 Unspecified sinusitis (chronic) 06/01/2007 05/25/2016 Dysuria 01/02/2007 05/25/2016 Irritable bowel syndrome 06/04/2006 Essential hypertension, benign 05/28/2005 09/01/2007 Primary localized osteoarthr osis, pelvic region and thigh 05/28/2005 06/04/2006 Diabetes 05/28/2005 06/27/2015 Unspecified sleep apnea 05/28/200511/14 Overview: PSG done 11/13/2002 @ [facility] . AHI 12 . Report sent to scan into [employer]. 12/05/[address] Errol Garcia positive stool 11/23/19 14 documented as of this encounter (statuses as of 10/05/2023) [facility] Narrative* Problem Noted Date Diagnosed Date Resolved Date Encounter for attention to gastrostomy 06/13/2023 07/04/2023 Acute pain of both knees 06/05/201910/2021 Routine general medical exam ination at a health care facility 07/04/2009 11/22/2013 Malignant neoplasm of female breast 07/30/2008 05/25/2016 Esophagitis, unspecified 07/23/2008 Other specified disorder of bladder 06/20/2007 11/25/2016 Unspecified sinusitis (chronic) 06/01/2007 05/25/2016 Dysuria 01/02/2007 05/25/2016 Irritable bowel syndrome 06/04/2006 Essential hypertension, benign 05/28/2005 09/01/2007 Primary localized osteoarthr osis, pelvic region and thigh 05/28/2005 06/04/2006 Diabetes 05/28/2005 06/27/2015 Unspecified sleep apnea 05/28/200511/14 Overview: PSG done 11/13/2002 @ [facility] . AHI 12 . Report sent to scan into [employer]. 12/05/[address] Errol Garcia positive stool 11/23/19 14 documented as of this encounter (statuses as of 10/06/2023) [facility] Narrative* Problem Noted Date Diagnosed Date Resolved Date Encounter for attention to gastrostomy 06/13/2023 07/04/2023 Acute pain of both knees 06/05/201910/2021 Routine general medical exam ination at a health care facility 07/04/2009 11/22/2013 Malignant neoplasm of female breast 07/30/2008 05/25/2016 Esophagitis, unspecified 07/23/2008 Other specified disorder of bladder 06/20/2007 11/25/2016 Unspecified sinusitis (chronic) 06/01/2007 05/25/2016 Dysuria 01/02/2007 05/25/2016 Irritable bowel syndrome 06/04/2006 Essential hypertension, benign 05/28/2005 09/01/2007 Primary localized osteoarthr osis, pelvic region and thigh 05/28/2005 06/04/2006 Diabetes 05/28/2005 06/27/2015 Unspecified sleep apnea 05/28/200511/14 Overview: PSG done 11/13/2002 @ [facility] . AHI 12 . Report sent to scan into [employer]. 12/05/[address] Errol Garcia positive stool 11/23/19 14 documented as of this encounter (statuses as of 10/07/2023) [facility] Narrative* Problem Noted Date Diagnosed Date Resolved Date Encounter for attention to gastrostomy 06/13/2023 07/04/2023 Acute pain of both knees 06/05/201910/2021 Routine general medical exam ination at a health care facility 07/04/2009 11/22/2013 Malignant neoplasm of female breast 07/30/2008 05/25/2016 Esophagitis, unspecified 07/23/2008 Other specified disorder of bladder 06/20/2007 11/25/2016 Unspecified sinusitis (chronic) 06/01/2007 05/25/2016 Dysuria 01/02/2007 05/25/2016 Irritable bowel syndrome 06/04/2006 Essential hypertension, benign 05/28/2005 09/01/2007 Primary localized osteoarthr osis, pelvic region and thigh 05/28/2005 06/04/2006 Diabetes 05/28/2005 06/27/2015 Unspecified sleep apnea 05/28/200511/14 Overview: PSG done 11/13/2002 @ [facility] . AHI 12 . Report sent to scan into [employer]. 12/05/[address] Errol Garcia positive stool 11/23/19 14 documented as of this encounter (statuses as of 10/08/2023) [facility] Narrative* Problem Noted Date Diagnosed Date Resolved Date Encounter for attention to gastrostomy 06/13/2023 07/04/2023 Acute pain of both knees 06/05/201910/2021 Routine general medical exam ination at a health care facility 07/04/2009 11/22/2013 Malignant neoplasm of female breast 07/30/2008 05/25/2016 Esophagitis, unspecified 07/23/2008 Other specified disorder of bladder 06/20/2007 11/25/2016 Unspecified sinusitis (chronic) 06/01/2007 05/25/2016 Dysuria 01/02/2007 05/25/2016 Irritable bowel syndrome 06/04/2006 Essential hypertension, benign 05/28/2005 09/01/2007 Primary localized osteoarthr osis, pelvic region and thigh 05/28/2005 06/04/2006 Diabetes 05/28/2005 06/27/2015 Unspecified sleep apnea 05/28/200511/14 Overview: PSG done 11/13/2002 @ [facility] . AHI 12 . Report sent to scan into [employer]. 12/05/[address] Errol Garcia positive stool 11/23/19 14 documented as of this encounter (statuses as of 11/04/2023) [facility] Narrative* Problem Noted Date Diagnosed Date Resolved Date Encounter for attention to gastrostomy 06/13/2023 07/04/2023 Acute pain of both knees 06/05/201910/2021 Routine general medical exam ination at a health care facility 07/04/2009 11/22/2013 Malignant neoplasm of female breast 07/30/2008 05/25/2016 Esophagitis, unspecified 07/23/2008 Other specified disorder of bladder 06/20/2007 11/25/2016 Unspecified sinusitis (chronic) 06/01/2007 05/25/2016 Dysuria 01/02/2007 05/25/2016 Irritable bowel syndrome 06/04/2006 Essential hypertension, benign 05/28/2005 09/01/2007 Primary localized osteoarthr osis, pelvic region and thigh 05/28/2005 06/04/2006 Diabetes 05/28/2005 06/27/2015 Unspecified sleep apnea 05/28/200511/14 Overview: PSG done 11/13/2002 @ [facility] . AHI 12 . Report sent to scan into Epic. 12/05/[address] Errol Garcia positive stool 11/23/19 14 documented as of this encounter (statuses as of 11/07/2023) [facility] Narrative* Problem Noted Date Diagnosed Date Resolved Date Encounter for attention to gastrostomy 06/13/2023 07/04/2023 Acute pain of both knees 06/05/201910/2021 Routine general medical exam ination at a health care facility 07/04/2009 11/22/2013 Malignant neoplasm of female breast 07/30/2008 05/25/2016 Esophagitis, unspecified 07/23/2008 Other specified disorder of bladder 06/20/2007 11/25/2016 Unspecified sinusitis (chronic) 06/01/2007 05/25/2016 Dysuria 01/02/2007 05/25/2016 Irritable bowel syndrome 06/04/2006 Essential hypertension, benign 05/28/2005 09/01/2007 Primary localized osteoarthr osis, pelvic region and thigh 05/28/2005 06/04/2006 Diabetes 05/28/2005 06/27/2015 Unspecified sleep apnea 05/28/200511/14 Overview: PSG done 11/13/2002 @ [facility] . AHI 12 . Report sent to scan into [employer]. 12/05/[address] Errol Garcia positive stool 11/23/19 14 documented as of this encounter (statuses as of 11/08/2023) [facility] Narrative* Problem Noted Date Diagnosed Date Resolved Date Encounter for attention to gastrostomy 06/13/2023 07/04/2023 Acute pain of both knees 06/05/201910/2021 Routine general medical exam ination at a health care facility 07/04/2009 11/22/2013 Malignant neoplasm of female breast 07/30/2008 05/25/2016 Esophagitis, unspecified 07/23/2008 Other specified disorder of bladder 06/20/2007 11/25/2016 Unspecified sinusitis (chronic) 06/01/2007 05/25/2016 Dysuria 01/02/2007 05/25/2016 Irritable bowel syndrome 06/04/2006 Essential hypertension, benign 05/28/2005 09/01/2007 Primary localized osteoarthr osis, pelvic region and thigh 05/28/2005 06/04/2006 Diabetes 05/28/2005 06/27/2015 Unspecified sleep apnea 05/28/200511/14 Overview: PSG done 11/13/2002 @ [facility] . AHI 12 . Report sent to scan into [employer]. 12/05/[address] Norton Heme positive stool 11/23/19 14 documented as of this encounter (statuses as of 11/16/2023) [facility] Narrative* Problem Noted Date Diagnosed Date Resolved Date Encounter for attention to gastrostomy 06/13/2023 07/04/2023 Acute pain of both knees 06/05/201910/2021 Routine general medical exam ination at a health care facility 07/04/2009 11/22/2013 Malignant neoplasm of female breast 07/30/2008 05/25/2016 Esophagitis, unspecified 07/23/2008 Other specified disorder of bladder 06/20/2007 11/25/2016 Unspecified sinusitis (chronic) 06/01/2007 05/25/2016 Dysuria 01/02/2007 05/25/2016 Irritable bowel syndrome 06/04/2006 Essential hypertension, benign 05/28/2005 09/01/2007 Primary localized osteoarthr osis, pelvic region and thigh 05/28/2005 06/04/2006 Diabetes 05/28/2005 06/27/2015 Unspecified sleep apnea 05/28/200511/14 Overview: PSG done 11/13/2002 @ [facility] . AHI 12 . Report sent to scan into [employer]. 12/05/[address] Errol Garcia positive stool 11/23/19 14 documented as of this encounter (statuses as of 11/17/2023) [facility] Past illness Narrative* Problem Noted Date Diagnosed Date Resolved Date Encounter for attention to gastrostomy 06/13/2023 07/04/2023 Acute pain of both knees 06/05/201910/2021 Routine general medical exam ination at a health care facility 07/04/2009 11/22/2013 Malignant neoplasm of female breast 07/30/2008 05/25/2016 Esophagitis, unspecified 07/23/2008 Other specified disorder of bladder 06/20/2007 11/25/2016 Unspecified sinusitis (chronic) 06/01/2007 05/25/2016 Dysuria 01/02/2007 05/25/2016 Irritable bowel syndrome 06/04/2006 Essential hypertension, benign 05/28/2005 09/01/2007 Primary localized osteoarthr osis, pelvic region and thigh 05/28/2005 06/04/2006 Diabetes 05/28/2005 06/27/2015 Unspecified sleep apnea 05/28/200511/14 Overview: PSG done 11/13/2002 @ [facility] . AHI 12 . Report sent to scan into [employer]. 12/05/[address] Errol Garcia positive stool 11/23/19 14 documented as of this encounter (statuses as of 11/23/2023) [facility] of Past illness Narrative* Problem Noted Date Diagnosed Date Resolved Date Encounter for attention to gastrostomy 06/13/2023 07/04/2023 Acute pain of both knees 06/05/201910/2021 Routine general medical exam ination at a health care facility 07/04/2009 11/22/2013 Malignant neoplasm of female breast 07/30/2008 05/25/2016 Esophagitis, unspecified 07/23/2008 Other specified disorder of bladder 06/20/2007 11/25/2016 Unspecified sinusitis (chronic) 06/01/2007 05/25/2016 Dysuria 01/02/2007 05/25/2016 Irritable bowel syndrome 06/04/2006 Essential hypertension, benign 05/28/2005 09/01/2007 Primary localized osteoarthr osis, pelvic region and thigh 05/28/2005 06/04/2006 Diabetes 05/28/2005 06/27/2015 Unspecified sleep apnea 05/28/200511/14 Overview: PSG done 11/13/2002 @ [facility] . AHI 12 . Report sent to scan into Epic. 12/05/[address] Errol Garcia positive stool 11/23/19 14 documented as of this encounter (statuses as of 11/23/2023) [facility] History of Past illness Narrative* Problem Noted Date Diagnosed Date Resolved Date Encounter for attention to gastrostomy 06/13/2023 07/04/2023 Acute pain of both knees 06/05/201910/2021 Routine general medical exam ination at a health care facility 07/04/2009 11/22/2013 Malignant neoplasm of female breast 07/30/2008 05/25/2016 Esophagitis, unspecified 07/23/2008 Other specified disorder of bladder 06/20/2007 11/25/2016 Unspecified sinusitis (chronic) 06/01/2007 05/25/2016 Dysuria 01/02/2007 05/25/2016 Irritable bowel syndrome 06/04/2006 Essential hypertension, benign 05/28/2005 09/01/2007 Primary localized osteoarthr osis, pelvic region and thigh 05/28/2005 06/04/2006 Diabetes 05/28/2005 06/27/2015 Unspecified sleep apnea 05/28/200511/14 Overview: PSG done 11/13/2002 @ [facility] . AHI 12 . Report sent to scan into [employer]. 12/05/[address] Errol Garcia positive stool 11/23/19 14 documented as of this encounter (statuses as of 11/23/2023) [facility] History of Past illness Narrative* Problem Noted Date Diagnosed Date Resolved Date Encounter for attention to gastrostomy 06/13/2023 07/04/2023 Acute pain of both knees 06/05/201910/2021 Routine general medical exam ination at a health care facility 07/04/2009 11/22/2013 Malignant neoplasm of female breast 07/30/2008 05/25/2016 Esophagitis, unspecified 07/23/2008 Other specified disorder of bladder 06/20/2007 11/25/2016 Unspecified sinusitis (chronic) 06/01/2007 05/25/2016 Dysuria 01/02/2007 05/25/2016 Irritable bowel syndrome 06/04/2006 Essential hypertension, benign 05/28/2005 09/01/2007 Primary localized osteoarthr osis, pelvic region and thigh 05/28/2005 06/04/2006 Diabetes 05/28/2005 06/27/2015 Unspecified sleep apnea 05/28/200511/14 Overview: PSG done 11/13/2002 @ [facility] . AHI 12 . Report sent to scan into [employer]. 12/05/[address] Errol Garcia positive stool 11/23/19 14 documented as of this encounter (statuses as of 11/24/2023) [facility] History of Past illness Narrative* Problem Noted Date Diagnosed Date Resolved Date Encounter for attention to gastrostomy 06/13/2023 07/04/2023 Acute pain of both knees 06/05/201910/2021 Routine general medical exam ination at a health care facility 07/04/2009 11/22/2013 Malignant neoplasm of female breast 07/30/2008 05/25/2016 Esophagitis, unspecified 07/23/2008 Other specified disorder of bladder 06/20/2007 11/25/2016 Unspecified sinusitis (chronic) 06/01/2007 05/25/2016 Dysuria 01/02/2007 05/25/2016 Irritable bowel syndrome 06/04/2006 Essential hypertension, benign 05/28/2005 09/01/2007 Primary localized osteoarthr osis, pelvic region and thigh 05/28/2005 06/04/2006 Diabetes 05/28/2005 06/27/2015 Unspecified sleep apnea 05/28/200511/14 Overview: PSG done 11/13/2002 @ [facility] . AHI 12 . Report sent to scan into [employer]. 12/05/[address] Errol Garcia positive stool 11/23/19 14 documented as of this encounter (statuses as of 11/29/2023) [facility] History of Past illness Narrative* Problem Noted Date Diagnosed Date Resolved Date Encounter for attention to gastrostomy 06/13/2023 07/04/2023 Acute pain of both knees 06/05/201910/2021 Routine general medical exam ination at a health care facility 07/04/2009 11/22/2013 Malignant neoplasm of female breast 07/30/2008 05/25/2016 Esophagitis, unspecified 07/23/2008 Other specified disorder of bladder 06/20/2007 11/25/2016 Unspecified sinusitis (chronic) 06/01/2007 05/25/2016 Dysuria 01/02/2007 05/25/2016 Irritable bowel syndrome 06/04/2006 Essential hypertension, benign 05/28/2005 09/01/2007 Primary localized osteoarthr osis, pelvic region and thigh 05/28/2005 06/04/2006 Diabetes 05/28/2005 06/27/2015 Unspecified sleep apnea 05/28/200511/14 Overview: PSG done 11/13/2002 @ [facility] . AHI 12 . Report sent to scan into [employer]. 12/05/[address] Errol Garcia positive stool 11/23/19 14 documented as of this encounter (statuses as of 11/30/2023) [facility] History of Past illness Narrative* Problem Noted Date Diagnosed Date Resolved Date Encounter for attention to gastrostomy 06/13/2023 07/04/2023 Acute pain of both knees 06/05/201910/2021 Routine general medical exam ination at a health care facility 07/04/2009 11/22/2013 Malignant neoplasm of female breast 07/30/2008 05/25/2016 Esophagitis, unspecified 07/23/2008 Other specified disorder of bladder 06/20/2007 11/25/2016 Unspecified sinusitis (chronic) 06/01/2007 05/25/2016 Dysuria 01/02/2007 05/25/2016 Irritable bowel syndrome 06/04/2006 Essential hypertension, benign 05/28/2005 09/01/2007 Primary localized osteoarthr osis, pelvic region and thigh 05/28/2005 06/04/2006 Diabetes 05/28/2005 06/27/2015 Unspecified sleep apnea 05/28/200511/14 Overview: PSG done 11/13/2002 @ [facility] . AHI 12 . Report sent to scan into Epic. 12/05/[address] Errol Garcia positive stool 11/23/19 14 documented as of this encounter (statuses as of 12/01/2023) [facility] History of Past illness Narrative* Problem Noted Date Diagnosed Date Resolved Date Encounter for attention to gastrostomy 06/13/2023 07/04/2023 Acute pain of both knees 06/05/201910/2021 Routine general medical exam ination at a health care facility 07/04/2009 11/22/2013 Malignant neoplasm of female breast 07/30/2008 05/25/2016 Esophagitis, unspecified 07/23/2008 Other specified disorder of bladder 06/20/2007 11/25/2016 Unspecified sinusitis (chronic) 06/01/2007 05/25/2016 Dysuria 01/02/2007 05/25/2016 Irritable bowel syndrome 06/04/2006 Essential hypertension, benign 05/28/2005 09/01/2007 Primary localized osteoarthr osis, pelvic region and thigh 05/28/2005 06/04/2006 Diabetes 05/28/2005 06/27/2015 Unspecified sleep apnea 05/28/200511/14 Overview: PSG done 11/13/2002 @ [facility] . AHI 12 . Report sent to scan into Epic. 12/05/[address] Errol Garcia positive stool 11/23/19 14 documented as of this encounter (statuses as of 12/02/2023) [facility] History of Past illness Narrative* Problem Noted Date Diagnosed Date Resolved Date Encounter for attention to gastrostomy 06/13/2023 07/04/2023 Acute pain of both knees 06/05/201910/2021 Routine general medical exam ination at a health care facility 07/04/2009 11/22/2013 Malignant neoplasm of female breast 07/30/2008 05/25/2016 Esophagitis, unspecified 07/23/2008 Other specified disorder of bladder 06/20/2007 11/25/2016 Unspecified sinusitis (chronic) 06/01/2007 05/25/2016 Dysuria 01/02/2007 05/25/2016 Irritable bowel syndrome 06/04/2006 Essential hypertension, benign 05/28/2005 09/01/2007 Primary localized osteoarthr osis, pelvic region and thigh 05/28/2005 06/04/2006 Diabetes 05/28/2005 06/27/2015 Unspecified sleep apnea 05/28/200511/14 Overview: PSG done 11/13/2002 @ [facility] . AHI 12 . Report sent to scan into [employer]. 12/05/[address] Errol Garcia positive stool 11/23/19 14 documented as of this encounter (statuses as of 12/02/2023) [facility] History of Present illness Narrative* Alfie Leiva, PT - 06/01/2023 1:28 PM EDT Episode Visit Count: 3 Therapist That Will Accept/Oversee The Plan Of Care: Alfie Leiva Start of Care Date: 05/03/23 Onset Date: 05/03/22 Plan of Care Certification Date: 05/03/23 Next Certification Due Date: 07/03/23 REHABILITATION AND SPORTS THERAPY PHYSICAL THERAPY DISCONTINUANCE OF CARE PLAN OF CARE UPDATE: Assessment: Manisha Keith is discontinued from Physical Therapy services due to maximal benefit. and Patient/Clinician mutual decision to discontinue current plan of care.. Patient was seen for 3visits from Start of Care Date: 05/03/23 to 06/01/2023 and treatment included: Therapeutic exercise, Manual therapy, and Self-penitentiary management. Pt has seen no objective or functional improvementssince starting therapy. Patient will be referred back to physician for updated plan of care. Goals updated on 06/01/2023. Goals for Episode of Care: created on 05/03/23 through 07/06/23 Independent in home exercises. Met Patient will decrease pain rating by 2 points to meet minimal clinical important difference for numeric pain rating scale. Not met Restore pain-free lumbar ROM to WNL to allow for improved functional mobility and decreased pain. Not met Stand / Walk as needed for ADLs without pain/symptoms. Not met Patient will increase strength of trunk/core and BLE to 4+ to 5/5 to allow for improve ability to complete ADLs. Not met SUBJECTIVE: No change in pain or function since starting therapy. Noted the traction helped for 3-4days after, but with $40 co-pay, it is not feasible to continue coming for temporary relief. she isfeeling a little less wobbly, but no changes in back pain. Functional Limitations: walking, standing, bending, heavy exertion, lifting, physical activities, recreational activities Pain: Pain Pain Level: 6 Pain Location: Back Description: Aching, Sore Frequency: Intermittent PROMIS Scales Higher is Better 06/01/2023 05/03/2023 07/31/2019 Phys Func - Score 41 (mild dysfunction) 38 (moderate dysfunction) 55 (within normal limits) Phys Func - Percentile 18 % 12 % 69 % Self-Eff Symptom - Score 41 (Average) - - Self-Eff Symptom - Percentile 18 % - - T-scores: mean of general population = 50. 5 points is clinically meaningfully difference Percentiles provide an indication of how the patient's score ranks in relation to the general population. Higher percentile rankings indicate better function/quality of life. 50th percentile is the average of the general population and indicates half of respondents had a worse score. OBJECTIVE MEASURES WITH LEVEL OF FUNCTION: Lumbar Spine AROM Lumbar Flexion: Minimal limitation Lumbar Extension: Moderate limitation Lumbar R Side-Bend: Moderate limitation Lumbar L Side-Bend: Moderate limitation Lumbar R Rotation: Minimal limitation Lumbar L Rotation: Minimal limitation LE Strength Trunk Strength: 3+/5 R LE Strength: 4/5 L LE Strength: 4/5 Functional Performance Test Results 30 Second Chair Stand Test: 11 reps Timed Up and Go (sec): 9 sec 4 Stage Balance Test Single leg stance - right (sec): 3 sec Single leg stance - left (sec): 4 sec TREATMENT: Self-Long Term Management: 1: Discussed continuing HEP, and how to perform gentle self traction on back at home Skilled Intervention: Reviewed patient specific diagnosis in relation to activities of daily living/home management. Billing Self-Care/Home Management Treatment Minutes: 4 Skilled Treatment Time Minutes (timed and untimed codes): 4 Total Session Time (minutes): 12 Session Start Time : 1308 Session Stop Time : 1320 Alfie Leiva PT [facility] Miscellaneous Notes* Telephone Encounter - Usman Cotton RN - 05/31/2023 10:37 AM EDT Phoned patient and given provider's message below with verbalized understanding. Patient agreeable. * Telephone Encounter - Ilir Hernández MD - 05/30/2023 5:11 PM EDT Nursing notfied her by phone on 05/13 pfts were normal. Can try something like mucinex. All of those meds are otc. If continues, follow up. * Telephone Encounter - Gertrudis Newman RN - 05/30/2023 4:59 PM EDT Patient calls and asking if provider will advise on pulmonary function test that was done. Patient also asking if provider will send in prescription for something to help get rid of mucous. Patient reports that she is coughing it up all the time. Please review and advise, Gertrudis Newman RN [facility]10[facility] History of Present illness Narrative* Alfie Leiva PT - 2023 10:10 PM EDT Episode Visit Count: 2 Therapist That Will Accept/Oversee The Plan Of Care: Alfie Leiva Start of Care Date: 05/03/23 Onset Date: 05/03/22 Plan of Care Certification Date: 05/03/23 Next Certification Due Date: 07/03/23 REHABILITATION AND SPORTS THERAPY PHYSICAL THERAPY TREATMENT NOTE ASSESSMENT: Manisha Keith tolerated the session with no issues. She demonstrated difficulty with continued back pain. The patient will continue to benefit from ongoing skilled physical therapy toprogress toward set goals. PLAN FOR NEXT VISIT: Assess addition of traction and seated exercises SUBJECTIVE: Pt had difficulty lying down to complete exercises, made her hurt worse Pain: Pain Pain Level: 7 Pain Location: Back Description: Aching, Sore Frequency: Intermittent OBJECTIVE MEASURES WITH LEVEL OF FUNCTION: Less pain with seated TA bracing exercises TREATMENT: Therapeutic Exercise: 1: SKC 3x30 sec/side (stop on the L going forward due to anterior hip/groin pain) 2: *Seated TA bracing 3x10, 5 sec holds 3: *Seated TA plus marching 2x10/side 4: STS 3x10 Skilled Intervention: Patient was educated in proper exercise technique and purpose for exercises. Skilled judgment was used in selection of appropriate interventions. Provided written instruction for home exercise program to facilitate proper performance and compliance. Correct performance of therapeutic exercises was facilitated with verbal, visual, and tactile cuing. Manual Therapy: 1: Manual lumbar belt traction x12 min with feet on stool and pull to tolerance Skilled Intervention: Manual skills to improve joint mobility, ROM, and decrease pain. Utilized anatomy knowledge of the therapist, and assessment of patient's response to intervention. Billing Therapeutic Exercise Treatment Minutes: 26 Manual TherapyTreatment Minutes: 12 Skilled Treatment Time Minutes (timed and untimed codes): 38 Total Session Time (minutes): 38 Session Start Time : 1350 Session Stop Time : 1428 Alfie Leiva PT documented in this encounterW[facility]09[facility] History of Present illness Narrative* Sherley Edgar PA-C - 05/14/2023 12:13 PM EDT Images from the original note were not included. This note was created using [employer]OMODO. Subjective Manisha Keith is a 72 year old female. HPI Presents with a rash on her right leg over the past couple weeks. She states she actually seen her primary care and mentioned it to him but did not have specific treatment for it called in. She has been having swelling in her legs and they had switched a blood pressure medication that they thought was causing this. States her swelling has improved but her right leg is still itchy. No new exposures. No history of eczema or psoriasis. No fever or chills. No pain in the leg, just itchy. Review of Systems Constitutional: Negative. HENT: Negative. Respiratory: Negative. Cardiovascular: Positive for leg swelling. Genitourinary: Negative. Skin: Positive for rash. All other systems reviewed and are negative. PAST MEDICAL HISTORY Diagnosis Date Allergic rhinitis, cause unspecified Arthritis Asthma mild asthma Breast cancer (HCC) age 34-had lump, cancerous cells. no issues since, left Diverticulosis of colon (without mention of hemorrhage) Heme positive stool 2010 History of cervical cancer regular Paps for life Hyperlipidemia 2011 Inflammatory polyarthritis ([facility]) Dr. 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 verapamil SR (CALAN SR) 120 mg CR tablet Take 1 tablet by mouth daily at bedtime. 30 tablet 5 metFORMIN ER (GLUCOPHAGE XR) 500 mg 24 hr tablet Take 1 tablet by mouth daily with breakfast. atorvastatin (LIPITOR) 20 mg tablet Take 1 tablet by mouth daily at bedtime. For cholesterol. 30 tablet 5 methotrexate 2.5 mg tablet Take 20 mg by mouth every Tuesday. HUMULIN R U-500, CONC, KWIKPEN 500 unit/mL (3 mL) inpn Inject subcutaneously three times daily. 70/70/40 melatonin 3 mg tablet Take 1 tablet at 9PM nightly. 90 tablet 1 insulin needles, DISPOSABLE, (PEN NEEDLE) 31 gauge x 5/16 Use one needle per dose. 4 per day. 4 Each 99 ondansetron orally disintegrating (ZOFRAN ODT) 4 mg disintegrating tablet DISSOLVE 1 TABLET IN MOUTH THREE TIMES DAILY NEEDED FOR NAUSEA AND VOMITING blood sugar diagnostic ([place] PurificationTOUCH VERIO TEST STRIPS) test strip Test blood sugar(s) 3-4 times daily.Dx: Other DM Code E11.319 Insulin: Yes 100 Strip 11 metaxalone (SKELAXIN) 800 mg tablet Take 1 tablet by mouth three times daily as needed for pain. 30tablet 0 pfximytomlf-rroqochtq-xaquypte (TRELEGY ELLIPTA) 100-62.5-25 mcg inhalation powder Inhale 1 Puff asinstructed once daily. 1 Each 5 Cholecalciferol, Vitamin D3, 50 mcg (2,000 unit) cap Take 1 capsule by mouth once daily. escitalopram oxalate (LEXAPRO) 10 mg tablet Take 1 tablet by mouth once daily. 90 tablet 1 esomeprazole (NEXIUM) 40 mg capsule Take 1 capsule by mouth twice daily before meals. 1/2 hr beforemeal. 180 capsule 3 losartan (COZAAR) 100 mg tablet Take 1 tablet by mouth once daily. 30 tablet 11 fluticasone (FLONASE) 50 mcg/actuation nasal spray USE 1 SPRAY IN EACH NOSTRIL ONCE DAILY AT BEDTIME DIRECTED 16 g 11 hydroCHLOROthiazide (HYDRODIURIL, ESIDRIX) 12.5 mg capsule Take 1 capsule by mouth once daily. 30 capsule 11 loratadine (CLARITIN) 10 mg tablet Take 1 tablet by mouth once daily. 30 tablet 5 albuterol HFA (PROAIR HFA) 90 mcg/actuation inhaler Inhale 2 Puffs as instructed every 4 hours as needed. 1 Inhaler 1 blood sugar diagnostic (BLOOD GLUCOSE TEST) test strip Test blood sugar(s) 3 times daily. Dx: Type 2 DM - Controlled E11.9 Insulin: YES 100 Each 11 Blood-Glucose Meter monitoring kit Glucose Meter of Choice - Kit - Dx: Type 2 DM - Controlled E11.91 Each 0 COMPOUNDED PRESCRIPTION Insulin needles-1/2 cc for 100 u Use up to 4 a day 150 Each 11 fluorometholone (FML LIQUID FILM) 0.1 % ophthalmic suspension Use 2 Drops in the left eye twice daily. triamcinolone acetonide (KENALOG) 0.1 % cream Apply 1 application to affected area three times a day for 7 days. Apply sparingly to area for rash/itching. 80 g 0 oxybutynin ER (DITROPAN XL) 10 mg 24 hr tablet Take 2 tablets by mouth once daily. 180 tablet 0 gabapentin (NEURONTIN) 300 mg capsule Take 1 capsule by mouth daily at bedtime for 90 days. 30 capsule 2 metoprolol succinate ER (TOPROL XL) 100 mg Take 1 tablet by mouth once daily. 30 tablet 5 No current facility-administered medications for this visit. PAST SURGICAL HISTORY Procedure Laterality Date ABDOMINAL SURGERY HX hx of feeding tube inserted APPENDECTOMY APPENDECTOMY HX BREAST SURGERY HX COLONOSCOPY FLX DX W/COLLJ SPEC WHEN PFRMD 06/26/2009 COLONOSCOPY FLX DX W/COLLJ SPEC WHEN PFRMD 04/10/2019 Colonoscopy COLONOSCOPY SCREENING 02/11/2022 Dr Olivas EGD 2010 EGD 02/11/2022 Dr Olivas ERCP DX COLLECTION SPECIMEN BRUSHING/WASHING 07/23/2008 Cholangiopancreatography (ERCP) ESOPHAGOGASTRODUODENOSCOPY TRANSORAL DIAGNOSTIC 04/10/2019 EGD EYE SURGERY HX MASTECTOMY Left age 34 Mastectomy - simple MASTECTOMY HX PAST SURGICAL HISTORY OF nose cauterized inside RMVL SEC MEMBRANOUS CTRC CORNEO-SCLL SCTJ Bilateral Cataract removal BILATERAL TOTAL ABDOMINAL HYSTERECT W/WO RMVL TUBE OVARY age 27 Hysterectomy, MARQUES cervical cancer, has one ovary left VAGINAL HYSTERECTOMY FAMILY HISTORY Problem Relation Age of Onset None Mother None Father Stroke Sister Cancer Sister COPD Sister Breast Cancer Maternal Aunt Social History Tobacco Use Smoking status: Former Packs/day: 0.75 Years: 30.00 Additional pack years: 0.00 Total pack years: 22.50 Types: Cigarettes Quit date: 08/15/2000 Years since quittin.7 Smokeless tobacco: Never Vaping Use Vaping Use: Never used Substance Use Topics Alcohol use: Never Comment: rarely Drug use: No Objective BP 142/82 Pulse 85 Temp 36.3 C (97.4 F) (Tympanic) Resp 16 Wt 93.4 kg (206 lb) BMI 37.67 kg/m Physical Exam Vitals reviewed. Constitutional: Appearance: Normal appearance. HENT: Head: Normocephalic and atraumatic. Musculoskeletal: Legs: Comments: Patient has multiple raised papules with some mild erythema to the right lateral lower leg. No other signs of cellulitis. No induration or significant warmth. Excoriation present. Skin: General: Skin is warm and dry. Neurological: Mental Status: She is alert. Assessment and Plan ASSESSMENT/PLAN: 1. Stasis dermatitis, acute - ICD9: 454.1, ICD10: I87.2 Likely stasis dermatitis from the swelling that she was having. Her swelling is actually improved switching to the verapamil and amlodipine. Discussed with her if she could try Zyrtec for itch and I gave her triamcinolone topically to help with the itch. Follow-up with PCP if not improving. Sherley Edgar PA-C documented in [facility] encounter[facility] Miscellaneous Notes* Telephone Encounter - Bonnie Domingo - 05/12/2023 4:15 PM EDT Talked to patient and she understands her xray was ok. Bonnie Domingo * Telephone Encounter - Ilir Hernández MD - 05/12/2023 4:12 PM EDT Let her know her xray is ok. documented in this encounterW[facility]09-28-[facility]23 History of Present illness Narrative* Gabbi Parker RT([place]) - 05/12/2023 2:00 PM EDT Radiology Service Progress Note PATIENT NAME: Manisha Keith DATE OF SERVICE: May 12, 2023 TIME: 1:47 PM PATIENT IDENTITY VERIFICATION COMPLETED USING TWO (2) IDENTIFIERS: Name and Date of confirmedby patient verbally. FALL SCREENING: Has the patient had 2 falls in the last year or 1 fall with injury or currently using an Ambulatory Assistive Device (Walker, Cane, Wheelchair, Crutches, etc.)? No PATIENT GENDER DATA: Female. status: : No status: NO. PATIENT RELEVANT IMPLANT DATA REVIEWED: Yes RADIOLOGY DEPARTMENT: General X-ray: Exam(s) Completed: Chest X-Ray PERIPHERAL IV DATA: Not applicable SIGNED BY: RT Christopher(R) May 12, 2023 1:47 PM documented in this encounterWo[facility]09-25-2023 Miscellaneous Notes* Telephone Encounter - Gertrudis Newman RN - 05/09/2023 4:19 PM EDT Patient notified of results and provider's instructions. Patient verbalizes understanding. Gertrudis Newman RN * Telephone Encounter - Lyndsey Kendall MA - 05/09/2023 4:15 PM EDT LM for patient to contact office. Lyndsey Kendall MA * Telephone Encounter - Ilir Hernández MD - 05/09/2023 4:05 PM EDT Let her know looks ok. * Telephone Encounter - Jaymie Koenig Ma - 05/09/2023 3:49 PM EDT Received fax from [facility] with preliminary results for b/l lower ext US results for DVT. Results were read by Dr. Duffy. Report was faxed at 3:10 pm. No echogenic filling was seen in the vessels evaluated. The deep veins demonstrated normal vessel compressibility and flow characteristics. These findings are consistent with the ABSENCE of DVT or superficial vein thrombosis. Jaymie Koenig Ma documented in this encounterWo[facility]09-22-2023 History of Present illness Narrative* Alfie Leiva, PT - 05/06/2023 3:17 PM EDT Episode Visit Count: 1 Therapist That Will Accept/Oversee The Plan Of Care: Alfie Leiva Start of Care Date: 05/03/23 Onset Date: 05/03/22 Plan of Care Certification Date: 05/03/23 Next Certification Due Date: 07/03/23 Patient Identified by Name and Date of : Yes REHABILITATION AND SPORTS THERAPY PHYSICAL THERAPY EVALUATION PLAN OF CARE: Assessment: Manisha Keith presents with chief complaint of back pain and balance issues that interferes with walking, standing, bending, heavy exertion, lifting, physical activities, recreationalactivities . She presents with impairments in ADL's, overall function, strength, symptom management, and tissue tenderness. PROMIS (Patient-Reported Outcomes Measurement Information System) scores were reviewed and physical function domain identified as a rehabilitation concern. Prognosis for therapy is Good due to: current objective clinical presentation, good overall health status, good supportsystem/ coping skills . She will benefit from skilled therapy services to meet the goals established for this plan of care as noted below. Classification Low Back Pain Subgroup Classification: Core stabilization subgroup: recommended visits 10. Core Stabilization Subgroup Classification based on: pain with transitional movements Goals for Episode of Care: created on 05/03/23 through 07/06/23 Independent in home exercises. Patient will decrease pain rating by 2 points to meet minimal clinical important difference for numeric pain rating scale. Restore pain-free lumbar ROM to WNL to allow for improved functional mobility and decreased pain Stand / Walk as needed for ADLs without pain/symptoms. Patient will increase strength of trunk/core and BLE to 4+ to 5/5 to allow for improve ability to complete ADLs. Planned Interventions, Frequency, and Duration: Current Frequency: 1x every other week Duration: 4 weeks Total Number of Visits Planned: 2 Planned Treatment Interventions: Therapeutic exercise (67330), Neuromuscular re- education (97131), Manual therapy (65646), Therapeutic activities (77388), Self- penitentiary management (34213), Gait Training ([id number]), Patient/Family/Caregiver Education, Body Mechanics Training PLAN FOR NEXT VISIT: Progress strengthening per tolerance, balance Patient demonstrates good understanding of plan of care and treatment. The above goals and plan of care were discussed and agreed upon by patient/family. SUBJECTIVE: Low back pain for about a year now with worsening pain. 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 Goes across both sides, and numbness down the right leg. Balance also seems to be affected, especially when she has stuffy sinuses. Notes she feels off, like she's drunk and can't walk straight Functional Limitations: walking, standing, bending, heavy exertion, lifting, physical activities, recreational activities Prior Level of Function: Independent without limitations Intake Information: Prescription present Falls History # of falls in past year: 0 # of falls resulting in an injury in past year: 0 Pain: Pain Pain Level: 7 Pain Location: Back Description: Aching, Sore, Numbness Frequency: Intermittent PROMIS Scales Higher is Better 05/03/2023 07/31/2019 Phys Func - Score 38 (moderate dysfunction) 55 (within normal limits) Phys Func - Percentile 12 % 69 % T-scores: mean of general population = 50. 5 points is clinically meaningfully difference Percentiles provide an indication of how the patient's score ranks in relation to the general population. Higher percentile rankings indicate better function/quality of life. 50th percentile is the average of the general population and indicates half of respondents had a worse score. OBJECTIVE MEASURES WITH LEVEL OF FUNCTION: Lumbar Spine AROM Lumbar Flexion: Minimal limitation Lumbar Extension: Moderate limitation Lumbar R Side-Bend: Moderate limitation Lumbar L Side-Bend: Moderate limitation Lumbar R Rotation: Minimal limitation Lumbar L Rotation: Minimal limitation LE Strength Trunk Strength: 3+/5 R LE Strength: 4/5 L LE Strength: 4/5 Special Tests - Hip and Spine Hip and Spine Special Tests: SLR Test SLR Test: Right Positive Functional Performance Test Results 30 Second Chair Stand Test: 11 reps Timed Up and Go (sec): 9.75 sec 4 Stage Balance Test Narrow base of support (sec): 10 sec Semi-tandem base of support (sec): 10 sec Tandem base of support (sec): 10 sec Single leg stance - right (sec): 2 sec Single leg stance - left (sec): 4 sec Education: TREATMENT: PT Treatment Interventions: Therapeutic Exercise Evaluation Therapeutic Exercise: 1: *SKC 3x30 sec 2: *DKC 3x30 sec 3: *STS 3x10 4: *TA bracing 3x10, 5 sec holds Skilled Intervention: Patient was educated in proper exercise technique and purpose for exercises. Skilled judgment was provided in selection of appropriate interventions. Provided written instruction for home exercise program to facilitate proper performance and compliance. Correct performance of therapeutic exercises was facilitated with verbal, visual, and tactile cuing. Billing * Evaluation Low Complexity: 1 Unit Therapeutic Exercise Treatment Minutes: 15 Skilled Treatment Time Minutes (timed and untimed codes): 41 Total Session Time (minutes): 41 Session Start Time : 1007 Session Stop Time : 1048 Alfie Leiva PT documented in this encounter[facility] History of Present illness Narrative* Ilir Hernández MD - 05/06/2023 2:49 PM EDT Patient presents with: Edema: Mostly right leg both says both have been swelling for about a month. HPI: Patient presents today for office visit for follow up. Was noting increased edema on amlodipine. Began on verapamil by Dex with improvement in the edema overall. Has had no weight gain. Bp is well controlle. Had echo in 04/05 No shortness of breath or chest pain. Both legs have been swelling again. Was puffed out on the outside of the right leg. Woke up that way. No redness or warmth. No fever. Itches and has a rash-gets little sores: Not wearing support hose. Not sure if elevation helps. No hx of dvts Sugars continue to be up and down. Has occasional chronic cough and wheeze. Does not feel sick. Does see rheum for inflammatory arthritis. Had normal pft's in 2018. Suggested we could reconsider pft's Discussed limiting diuretics given her renal function. Rare heartburn. Is on meds. Has support hose at home but not wearing. Discussed limit salt and wearing support hose. Notes occasional vaginal itching. Suggested to try some gynelotrimin. Can see steam engineer if continues. MEDICATIONS: Current Outpatient Medications Medication Sig FOLIC ACID ORAL Take by mouth. verapamil SR (CALAN SR) 120 mg CR tablet Take 1 tablet by mouth daily at bedtime. metFORMIN ER (GLUCOPHAGE XR) 500 mg 24 hr tablet Take 1 tablet by mouth daily with breakfast. atorvastatin (LIPITOR) 20 mg tablet Take 1 tablet by mouth daily at bedtime. For cholesterol. methotrexate 2.5 mg tablet Take 20 mg by mouth every Tuesday. HUMULIN R U-500, CONC, KWIKPEN 500 unit/mL (3 mL) inpn Inject subcutaneously three times daily. 70/70/40 melatonin 3 mg tablet Take 1 tablet at 9PM nightly. insulin needles, DISPOSABLE, (PEN NEEDLE) 31 gauge x 5/16 Use one needle per dose. 4 per day. ondansetron orally disintegrating (ZOFRAN ODT) 4 mg disintegrating tablet DISSOLVE 1 TABLET IN MOUTH THREE TIMES DAILY NEEDED FOR NAUSEA AND VOMITING blood sugar diagnostic ([place] PurificationTOUCH VERIO TEST STRIPS) test strip Test blood sugar(s) 3-4 times daily.Dx: Other DM Code E11.319 Insulin: Yes metaxalone (SKELAXIN) 800 mg tablet Take 1 tablet by mouth three times daily as needed for pain. ehbxfzgsbsh-iqttpmpuq-pcpbwfyx (TRELEGY ELLIPTA) 100-62.5-25 mcg inhalation powder Inhale 1 Puff asinstructed once daily. Cholecalciferol, Vitamin D3, 50 mcg (2,000 unit) cap Take 1 capsule by mouth once daily. escitalopram oxalate (LEXAPRO) 10 mg tablet Take 1 tablet by mouth once daily. esomeprazole (NEXIUM) 40 mg capsule Take 1 capsule by mouth twice daily before meals. 1/2 hr beforemeal. losartan (COZAAR) 100 mg tablet Take 1 tablet by mouth once daily. fluticasone (FLONASE) 50 mcg/actuation nasal spray USE 1 SPRAY IN EACH NOSTRIL ONCE DAILY AT BEDTIME DIRECTED hydroCHLOROthiazide (HYDRODIURIL, ESIDRIX) 12.5 mg capsule Take 1 capsule by mouth once daily. loratadine (CLARITIN) 10 mg tablet Take 1 tablet by mouth once daily. albuterol HFA (PROAIR HFA) 90 mcg/actuation inhaler Inhale 2 Puffs as instructed every 4 hours as needed. blood sugar diagnostic (BLOOD GLUCOSE TEST) test [...] Drops in the left eye twice daily. oxybutynin ER (DITROPAN XL) 10 mg 24 hr tablet Take 2 tablets by mouth once daily. gabapentin (NEURONTIN) 300 mg capsule Take 1 capsule by mouth daily at bedtime for 90 days. metoprolol succinate ER (TOPROL XL) 100 mg Take 1 tablet by mouth once daily. No current facility-administered medications for this visit. ALLERGIES: ALLERGIES Allergen Reactions Jesenia Inhibitors Cough Nsaids (Non-Steroid* GI Upset Tape [Adhesive Tape* Other: See Comments Blisters from surgical tape Trulicity [Dulaglut* Other: See Comments Gastroparesis PAST MEDICAL HISTORY Diagnosis Date Allergic rhinitis, cause unspecified Arthritis Asthma mild asthma Breast cancer (HCC) age 34-had lump, cancerous cells. no issues since, left Diverticulosis of colon (without mention of hemorrhage) Heme positive stool 2010 History of cervical cancer regular Paps for life Hyperlipidemia 2010 Inflammatory polyarthritis (HCC) Dr. 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) Sleep apnea Type II or unspecified type diabetes mellitus without mention of complication, not stated as uncontrolled Unspecified essential hypertension PAST SURGICAL HISTORY Procedure Laterality Date ABDOMINAL SURGERY HX hx of feeding tube inserted APPENDECTOMY APPENDECTOMY HX BREAST SURGERY HX COLONOSCOPY FLX DX W/COLLJ SPEC WHEN PFRMD 06/26/2009 COLONOSCOPY FLX DX W/COLLJ SPEC WHEN PFRMD 04/10/2019 Colonoscopy COLONOSCOPY SCREENING 02/11/2022 Dr Olivas EGD 2010 EGD 02/11/2022 Dr Olivas ERCP DX COLLECTION SPECIMEN BRUSHING/WASHING 07/23/2008 Cholangiopancreatography (ERCP) ESOPHAGOGASTRODUODENOSCOPY TRANSORAL DIAGNOSTIC 04/10/2019 EGD EYE SURGERY HX MASTECTOMY Left age 34 Mastectomy - simple MASTECTOMY HX PAST SURGICAL HISTORY OF nose cauterized inside RMVL SEC MEMBRANOUS CTRC CORNEO-SCLL SCTJ Bilateral Cataract removal BILATERAL TOTAL ABDOMINAL HYSTERECT W/WO RMVL TUBE OVARY age 27 Hysterectomy, MARQUES cervical cancer, has one ovary left VAGINAL HYSTERECTOMY FAMILY HISTORY Problem Relation Age of Onset None Mother None Father Stroke Sister Cancer Sister COPD Sister Breast Cancer Maternal Aunt Social History Tobacco Use Smoking status: Former Packs/day: 0.75 Years: 30.00 Additional pack years: 0.00 Total pack years: 22.50 Types: Cigarettes Quit date: 08/15/2000 Years since quittin.7 Smokeless tobacco: Never Vaping Use Vaping Use: Never used Substance Use Topics Alcohol use: Never Comment: rarely Drug use: No Reviewed current medications, allergies, past medical history, surgical history, family history andsocial history today. REVIEW OF SYSTEMS See endo so. All other reviewed and negative other than HPI. VITALS: BP 138/78 Pulse 70 Resp 16 Wt 93.6 kg (206 lb 6.4 oz) SpO2 95% BMI 37.75 kg/m Last 4 Encounter Wt Readings: Date: Wt: 05/06/2023 93.6 kg (206 lb 6.4 oz) 04/11/2023 93.4 kg (206 lb) 03/14/2023 94.3 kg (208 lb) 02/17/2023 95.3 kg (210 lb) PHYSICAL EXAMINATION: General appearance: Well appearing, alert, in no acute distress, well-hydrated, well nourished. Skin: Skin color, texture, turgor normal, no suspicious rashes or lesions. No rash on legs. Dry skin from edema. Head: Normocephalic, no masses, lesions, tenderness or abnormalities\\ Lungs: Lungs clear to auscultation. No wheezing, rhonchi, rales Heart: RRR without murmur, gallop, or rubs. No ectopy Abdomen: Normal abdominal exam, Abdomen soft, non-tender. Bowel sounds normal. No masses, organomegaly Extremities: one plus edema. No redness or warmth. No calf tenderness. No palpable cords. Musculoskeletal: No joint swelling, deformity, or tenderness Peripheral pulses: Normal Neuro: Negative. ASSESSMENT/PLAN: 1. SOB (shortness of breath) - ICD9: 786.05, ICD10: R06.02 (primary diagnosis) - check testing and labs. Call if worsens. Consider pulmonary if continues. - SPIROMETRY WITH DILATOR IF OBSTRUCTED - LUNG DIFFUSION CAPACITY (DLCO) - XR CHEST 2V FRONTAL/LAT - ECHO - PERFLUTREN LIPID MICROSPHERES 1.1 MG/ML INJECTION IN NS 10 ML - SODIUM CHLORIDE 0.9 % (FLUSH) INJECTION SYRINGE - NT PRO BNP 2. Chronic cough - ICD9: 786.2, ICD10: R05.3 - SPIROMETRY WITH DILATOR IF OBSTRUCTED - LUNG DIFFUSION CAPACITY (DLCO) - XR CHEST 2V FRONTAL/LAT - ECHO - PERFLUTREN LIPID MICROSPHERES 1.1 MG/ML INJECTION IN NS 10 ML - SODIUM CHLORIDE 0.9 % (FLUSH) INJECTION SYRINGE 3. Localized edema - ICD9: 782.3, ICD10: R60.0 - wear support hose. Elevate legs prn. Check above - US DVT LOWER BILATERAL 4. Primary hypertension - ICD9: 401.9, ICD10: I10 - Controlled - Continue current medications 5. Stage 3 chronic kidney disease, unspecified whether stage 3a or 3b CKD (HCC) - ICD9: 585.3, ICD10: N18.30 - stable. - CBC + DIFF - BASIC METABOLIC PNL 6. 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 7. Subclinical hypothyroidism - ICD9: 244.8, ICD10: E03.8 - tsh. Ilir Hernández MD documented in this encounterW[facility]08-28-2023 History of Present illness Narrative* Usman Barboza PA-Wen - 04/11/2023 1:40 PM EDT 72 year old female with c/o 4 week follow up on BP and leg swelling HTN: Current meds: Verapamil SR 120mg daily Patient is compliant with meds Yes Monitors bp at home: Yes. If yes, readings: Denies side effects: No. Chest pain: No. Dyspnea: No. Edema: improving, 1-2/4+. Palpitations: No. Syncope: No. Headache: No. Dizziness: No. Last 3 Encounter BP Readings: Date: BP: 04/11/2023 136/80 03/14/2023 136/78 02/17/2023 150/74 Last 2 Encounter Wt Readings: Date: Wt: 04/11/2023 93.4 kg (206 lb) 03/14/2023 94.3 kg (208 lb) Hemoglobin A1C Date Value 01/31/2023 10.4 % 10/20/2022 11.2 07/16/2022 11.0 % 09/08/2021 11.1 % 06/05/2021 10.1 % ) HISTORIES FAMILY HISTORY Problem Relation Age of Onset None Mother None Father Stroke Sister Cancer Sister COPD Sister Breast Cancer Maternal Aunt PAST MEDICAL HISTORY Diagnosis Date Allergic rhinitis, cause unspecified Arthritis Asthma mild asthma Breast cancer (HCC) age 34-had lump, cancerous cells. no issues since, left Diverticulosis of colon (without mention of hemorrhage) Heme positive stool 2010 History of cervical cancer regular Paps for life Hyperlipidemia 2011 Inflammatory polyarthritis (HCC) Dr. 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) Sleep apnea Type II or unspecified type diabetes mellitus without mention of complication, not stated as uncontrolled Unspecified essential hypertension PAST SURGICAL HISTORY Procedure Laterality Date ABDOMINAL SURGERY HX hx of feeding tube inserted APPENDECTOMY APPENDECTOMY HX BREAST SURGERY HX COLONOSCOPY FLX DX W/COLLJ SPEC WHEN PFRMD 06/26/2009 COLONOSCOPY FLX DX W/COLLJ SPEC WHEN PFRMD 04/10/2019 Colonoscopy COLONOSCOPY SCREENING 02/11/2022 Dr Olivas EGD 2010 EGD 02/11/2022 Dr Olivas ERCP DX COLLECTION SPECIMEN BRUSHING/WASHING 07/23/2008 Cholangiopancreatography (ERCP) ESOPHAGOGASTRODUODENOSCOPY TRANSORAL DIAGNOSTIC 04/10/2019 EGD EYE SURGERY HX MASTECTOMY Left age 34 Mastectomy - simple MASTECTOMY HX PAST SURGICAL HISTORY OF nose cauterized inside RMVL SEC MEMBRANOUS CTRC CORNEO-SCLL SCTJ Bilateral Cataract removal BILATERAL TOTAL ABDOMINAL HYSTERECT W/WO RMVL TUBE OVARY age 27 Hysterectomy, MARQUES cervical cancer, has one ovary left VAGINAL HYSTERECTOMY Social History Tobacco Use Smoking status: Former Packs/day: 0.75 Years: 30.00 Additional pack years: 0.00 Total pack years: 22.50 Types: Cigarettes Quit date: 08/15/2000 Years since quittin.6 Smokeless tobacco: Never Vaping Use Vaping Use: Never used Substance Use Topics Alcohol use: Never Comment: rarely Drug use: No ACTIVE PROBLEM LIST Hyperlipidemia Allergic Rhinitis Osteoarthritis Asymptomatic Varicose Veins Reflux Esophagitis Ibs (Irritable Bowel Syndrome) Htn (Hypertension) Urge Incontinence Inflammatory Polyarthritis (Hcc) Type 2 Diabetes Mellitus With Proliferative Retinopathy Without Macular Edema, With Long-Term Current Use of Insulin, Unspecified Laterality (Hcc) History of Cervical Cancer History of Breast Cancer H/O Left Mastectomy Obesity, Class I, Bmi 30-34.9 Pes Anserinus Bursitis of Both Knees Age-Related Osteoporosis Without Current Pathological Fracture Gastroparesis Due to Secondary Diabetes (Hcc) Subclinical Hypothyroidism Insulin Pump in Place Svt (Supraventricular Tachycardia) (Hcc) Calculus of Gallbladder Without Cholecystitis Without Obstruction Adenoma of Left Adrenal Gland Lung Nodules Stage 3 Chronic Kidney Disease, Unspecified Whether Stage 3a Or 3b Ckd (Hcc) Current Outpatient Medications Medication Sig Dispense Refill FOLIC ACID ORAL Take by mouth. verapamil SR (CALAN SR) 120 mg CR tablet Take 1 tablet by mouth daily at bedtime. 30 tablet 5 metFORMIN ER (GLUCOPHAGE XR) 500 mg 24 hr tablet Take 1 tablet by mouth daily with breakfast. atorvastatin (LIPITOR) 20 mg tablet Take 1 tablet by mouth daily at bedtime. For cholesterol. 30 tablet 5 methotrexate 2.5 mg tablet Take 20 mg by mouth every Tuesday. HUMULIN R U-500, CONC, KWIKPEN 500 unit/mL (3 mL) inpn Inject subcutaneously three times daily. 70/70/40 melatonin 3 mg tablet Take 1 tablet at 9PM nightly. 90 tablet 1 insulin needles, DISPOSABLE, (PEN NEEDLE) 31 gauge x 5/16 Use one needle per dose. 4 per day. 4 Each 99 ondansetron orally disintegrating (ZOFRAN ODT) 4 mg disintegrating tablet DISSOLVE 1 TABLET IN MOUTH THREE TIMES DAILY NEEDED FOR NAUSEA AND VOMITING oxybutynin ER (DITROPAN XL) 10 mg 24 hr tablet Take 2 tablets by mouth once daily. 180 tablet 0 blood sugar diagnostic (ONETOUCH VERIO TEST STRIPS) test strip Test blood sugar(s) 3-4 times daily.Dx: Other DM Code E11.319 Insulin: Yes 100 Strip 11 metaxalone (SKELAXIN) 800 mg tablet Take 1 tablet by mouth three times daily as needed for pain. 30tablet 0 ivmaqpepnue-khasuikla-ohuknxpv (TRELEGY ELLIPTA) 100-62.5-25 mcg inhalation powder Inhale 1 Puff asinstructed once daily. 1 Each 5 Cholecalciferol, Vitamin D3, 50 mcg (2,000 unit) cap Take 1 capsule by mouth once daily. gabapentin (NEURONTIN) 300 mg capsule Take 1 capsule by mouth daily at bedtime for 90 days. 30 capsule 2 escitalopram oxalate (LEXAPRO) 10 mg tablet Take 1 tablet by mouth once daily. 90 tablet 1 esomeprazole (NEXIUM) 40 mg capsule Take 1 capsule by mouth twice daily before meals. 1/2 hr beforemeal. 180 capsule 3 losartan (COZAAR) 100 mg tablet Take 1 tablet by mouth once daily. 30 tablet 11 fluticasone (FLONASE) 50 mcg/actuation nasal spray USE 1 SPRAY IN EACH NOSTRIL ONCE DAILY AT BEDTIME DIRECTED 16 g 11 hydroCHLOROthiazide (HYDRODIURIL, ESIDRIX) 12.5 mg capsule Take 1 capsule by mouth once daily. 30 capsule 11 metoprolol succinate ER (TOPROL XL) 100 mg Take 1 tablet by mouth once daily. 30 tablet 5 loratadine (CLARITIN) 10 mg tablet Take 1 tablet by mouth once daily. 30 tablet 5 albuterol HFA (PROAIR HFA) 90 mcg/actuation inhaler Inhale 2 Puffs as instructed every 4 hours as needed. 1 Inhaler 1 blood sugar diagnostic (BLOOD GLUCOSE TEST) test strip Test blood sugar(s) 3 times daily. Dx: Type 2 DM - Controlled E11.9 Insulin: YES 100 Each 11 Blood-Glucose Meter monitoring kit Glucose Meter of Choice - Kit - Dx: Type 2 DM - Controlled E11.91 Each 0 COMPOUNDED PRESCRIPTION Insulin needles-1/2 cc for 100 u Use up to 4 a day 150 Each 11 fluorometholone (FML LIQUID FILM) 0.1 % ophthalmic suspension Use 2 Drops in the left eye twice daily. No current facility-administered medications for this visit. BP CONTROLLED (<130/80) Never done DILATED RETINAL EXAM due on 10/19/2022 EXAM: BP 136/80 Pulse 84 Resp 16 Wt 93.4 kg (206 lb) BMI 37.68 kg/m Pleasant obese adult woman in no acute distress. Alert and oriented all spheres. Normal affect and cognition. Speech normal. No deficits to learning or comprehension. Skin warm, dry, pink to lips and nailbeds. Normal turgor. Respirations regular and unlabored. HEENT: NCAT. No scleral icterus or conjunctival injection. TM's clear. Nose and oropharynx free from injection or lesion. Oral membranes moist and pink. No cervical lymph nodes. Thyroid non-tender, no masses, or enlargement. Carotids pulses 2+/4+ without bruits. No JVD with HOB at 30 degrees. Chest is normal shape. Lungs are clear to all [place] with good air exchange through out. HRRR without murmur or gallop. No lifts, heaves, or rubs. Tender across lower lumbar muscles. Nontender midline spine. Forward flexion to toes. Extrem: no clubbing or cyanosis. Edema: 1/4+, improved from last visit. Extremities are warm and pink with prompt capillary refill. Neuro Romberg negative. Able to walk heel to toe with a couple trials. Weak gluteal and thigh muscles. ASSESSMENT/PLAN: 1. Primary hypertension - ICD9: 401.9, ICD10: I10 (primary diagnosis) - Controlled - Recommend home blood pressure monitoring, to bring results to next visit - Encouraged sodium restriction, DASH or Mediterranean diet - Recommend regular aerobic exercise Continue verapamil and recheck in 3 motnhs 2. Lumbar pain - ICD9: 724.2, ICD10: M54.50 Chronic low back without radiation, muscle tenderness - CONSULT TO PHYSICAL THERAPY 3. Balance disorder - ICD9: 781.99, ICD10: R26.89 - CONSULT TO PHYSICAL THERAPY F/u 3 months Usman Barboza PA-C documented in this encounterW[facility]08-23-2023 Miscellaneous Notes* Telephone Encounter - Timbo Del Valle LPN - 04/06/2023 10:28 AM EDT Pt notified. She verbalized understanding. Timbo Del Valle LPN * Telephone Encounter - Usman Barboza PA-C - 04/06/2023 5:[address] chest nodule stable. Recheck 6 months If table 6 months, recheck 1 year. If stable 2 years can be reassured benign and no further testing needed. Telephone on 04/06/23 CT CHEST WO IVCON Lung nodules (primary encounter diagnosis) Dex Arevalo PA-C documented in this encounterW[facility]08-17-2023 History of Present illness Narrative* Cherelle Hernández RT(R) - 03/31/2023 1:00 PM EDT Radiology Service Progress Note PATIENT NAME: Manisha Keith DATE OF SERVICE: March 31, 2023 TIME: 2:50 PM PATIENT IDENTITY VERIFICATION COMPLETED USING TWO (2) IDENTIFIERS: Name and Date of confirmedby patient verbally. FALL SCREENING: Has the patient had 2 falls in the last year or 1 fall with injury or currently using an Ambulatory Assistive Device (Walker, Cane, Wheelchair, Crutches, etc.)? No PATIENT GENDER DATA: Female. status: : No status: NO. PATIENT RELEVANT IMPLANT DATA REVIEWED: Yes RADIOLOGY DEPARTMENT: CT; Exam(s) Completed: Chest PERIPHERAL IV DATA: Not applicable SIGNED BY: RT Kaleigh(R) March 31, 2023 2:50 PM documented in this encounterWo[facility]07-25-2023 Miscellaneous Notes* Telephone Encounter - Cristy Phillips OCCA - 03/08/2023 1:37 PM EDT TC to patient to scheduled with [facility]. Patient states she will not drive outside of [place] andthat appointment must be at this location. Explained to patient that Dr. Cutler is currently the only sleep provider at this location and he is scheduling out until September. Offered patient appointments as soon as March with [facility] in [place]. Patient denies scheduling and states Well I will just have to wait until next year then. As requested by patient, this staff scheduled her for the soonestavailable on 09/19/2023. RUBIA Guerra * Telephone Encounter - Ilir Cutler Jr., MD - 03/08/2023 10:38 AM EDT Please help pt schedule follow up with [facility]. Ilir Cutler MD * Telephone Encounter - Dejah Robertson LPN - 03/08/2023 9:56 AM EDT TC to pt who is hesitant to use a PAP machine because she has got infections in the past from her other machines. I suggested to her that she take her current machine to [facility] they have over night oxygen, and see if they are able to help her figure it out and we can get her new supplies. She believes she already has an auto pap machine from [employer]. Dejah Robertson LPN * Telephone Encounter - Ilir Cutler Jr., MD - 03/08/2023 8:03 AM EDT Pt needing bilevel PAP and O2 per report. Please inform pt and I will place order to preferred DME if patient chooses to do so. Ilir Cutler MD * Telephone Encounter - Cristy Phillips OCCA - 03/07/2023 3:10 PM EDT Fax received from [facility] with results of Titration study. Please review and advise. Thank you. RUBIA Culp Scan on 03/07/2023 2:37 PM by Provider, GEOVANNI Santillan: Sleep Studies documented in [facility] encounter[facility]23 Miscellaneous Notes* Telephone Encounter - My Fonseca - 02/19/2023 10:15 AM EDT Patient informed and verbalized understanding. My [facility]on[facility] * Telephone Encounter - My Fonseca - 02/19/2023 10:14 AM EDT ----- Message from Usman Barboza PA-C sent at 02/19/2023 7:35 AM EDT ----- Urine bacteria too low to be an infection. She is very dry: needs to push fluids. Thanks, Dex Barboza PA-C documented in this encounterW[facility]07-07-2023 Miscellaneous Notes* Telephone Encounter - Manisha Randall Ma - 02/18/2023 12:20 PM EDT Pt notified and voiced understanding. Manisha Randall Ma * Telephone Encounter - Ilir Hernández MD - 02/18/2023 12:16 PM EDT Liver is good. Cholesterol is much better. Thyroid remains borderline. documented in this encounterW[facility]07-[facility]23 History of Present illness Narrative* Usman Barboza PA-C - 02/17/2023 10:20 AM EDT 72 year old female with c/o here for follow up urine protein. Vaginal itching and brownish discharge, urinating hourly overnight 3 days ago, resolved following day. Primary hypertension (primary encounter diagnosis) Mixed hyperlipidemia Svt (supraventricular tachycardia) (hcc) Cardiovascular interval hx: Current meds: Atorvastatin 20 mg daily at bedtime Amlodipine 5 mg daily Losartan 100 mg daily HCTZ 12.5 mg daily Metoprolol succinate ER 100 mg daily use of NTG: No Chest pain, arm, jaw pain, neck, or upper back pain suggestive of angina: No. SOB: Yes, walking up steps Dyspnea with exertion: Yes orthopnea: No Cough : persistent, mostly in morning, dry, some wheezing. racing or irregular heartbeats: No palpitations: No syncopal sx: No, some dizziness, with staggering when gets up to walk or turns suddenly., No falls or actual loss balance. Headache: No Unexplainable fatigue always tired- pending sleep study. Leg swelling: Yes, mild over several months, worse since 10lb weight Nausea: Yes with diaphoresis: Yes, muscle spasms all over body, under ribs, stomach, arms- at least once a week Heartburn: occasional, not in awhile, medication helps. Claudication: legs hurt with walking, sore to touch. Smoking: No Following Low cholesterol, high fiber diet? Not much If on statin: muscle aches? Yes If on statin: GI sx or diarrhea? Yes, a couple times a week. Additional history none. Lab review: Component Latest Ref Rng & Units 09/23/2021 07/16/2022 12/02/2022 12/07/2022 02/09/2023 WBC 3.70 - 11.00 k/uL 7.38 7.75 8.19 RBC 3.90 - 5.20 m/uL 3.91 4.01 4.12 Hemoglobin 11.5 - 15.5 g/dL 12.3 12.5 13.0 Hematocrit 36.0 - 46.0 % 36.9 38.6 40.8 MCV 80.0 - 100.0 fL 94.4 96.3 99.0 MCH 26.0 - 34.0 pg 31.5 31.2 31.6 MCHC 30.5 - 36.0 g/dL 33.3 32.4 31.9 RDW-CV 11.5 - 15.0 % 12.9 13.1 13.0 Platelet Count 150 - 400 k/uL 258 242 260 MPV 9.0 - 12.7 fL 10.3 9.4 9.7 Neut% % 60.0 69.0 64.5 Abs Neut (ANC) 1.45 - 7.50 k/uL 4.43 5.35 5.29 Lymph% % 27.4 20.5 23.9 Abs Lymph 1.00 - 4.00 k/uL 2.02 1.59 1.96 Attala% % 8.4 6.5 6.5 Abs Attala <0.87 k/uL 0.62 0.50 0.53 Eosin% % 2.7 1.9 3.1 Abs Eosin <0.46 k/uL 0.20 0.15 0.25 Baso% % 0.8 0.8 1.1 Abs Baso <0.11 k/uL 0.06 0.06 0.09 Immature Gran % % 0.7 1.3 0.9 IMMATURE GRANS (ABS) <0.10 k/uL 0.05 0.10 (H) 0.07 NRBC /100 WBC 0.0 0.0 0.0 Absolute nRBC <0.01 k/uL <0.01 <0.01 <0.01 DTYPE Auto Auto Auto Glucose 74 - 99 mg/dL 468 (H) 90 BUN 7 - 21 mg/dL 17 10 Creatinine 0.58 - 0.96 mg/dL 0.99 (H) 0.76 Sodium 136 - 144 mmol/L 133 (L) 139 Potassium 3.7 - 5.1 mmol/L 4.6 4.0 Chloride 97 - 105 mmol/L 99 101 CO2 22 - 30 mmol/L 24 23 Anion Gap 9 - 18 mmol/L 10 15 Calcium 8.5 - 10.2 mg/dL 9.1 9.3 eGFR >=60 mL/min/1.73m 61 84 Cholesterol, Total <200 mg/dL 205 (H) 243 (H) Triglyceride <150 mg/dL 109 145 HDL Cholesterol >39 mg/dL 54 61 LDL Cholesterol <100 mg/dL 129 (H) 153 (H) Non HDL Cholesterol <130 mg/dL 151 (H) 182 (H) Fasting Time hrs 12 13 VLDL Cholesterol <30 mg/dL 22 29 TC:HDL Ratio <5.10 3.80 3.98 LDL:HDL Ratio <2.54 2.39 2.51 Albumin 3.9 - 4.9 g/dL 3.5 (L) Bilirubin, Total 0.2 - 1.3 mg/dL 0.3 Bilirubin, Conjug <0.2 mg/dL <0.2 Alkaline Phosphatase 34 - 123 U/L 63 AST 13 - 35 U/L 14 ALT 7 - 38 U/L 17 Protein, Total 6.3 - 8.0 g/dL 7.0 Ricardo (obstructive sleep apnea) Saw Dr. Cutler, waiting for machine. 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 King haque Diabetes Mellitus Type 2: Hx insulin pump, irritated skin, washing was difficult- came and lost all the insulin. Current medications: Humulin are U-500 KwikPen 70 - 70 - 40 units 3 times daily Insulin degludec 66 units at bedtime: Reported not taking on 01/19/2023 Metformin ER 500 mg 4 tablets daily with breakfast Taking medication as directed consistently? Yes Medication side effects: Medical Issues / Complications: hypertension and hyperlipidemia Checking blood sugars at home? 27-200s. Reporting to Dr. Chi. Watching diet? No, piece of cake when she wants, 2-3 days Physical Activity: Regular Hypoglycemic spells? Yes Any visual disturbance? Yes, comes and goes Chest pain? No, chronic muscle spasms New numbness, tingling or loss of sensation? Yes in feet chronic Any recent foot problems, sores or rashes? No Any recent or sudden weight loss? No Change in urination? No. If yes: sometimes can't hold urine, sometimes can't hold bowels when loose, getting worse in last couple months. Any recent illness? No Last eye exam: due. Last foot exam: up to date. HBA1C: Hemoglobin A1C Date Value 01/31/2023 10.4 % 10/20/2022 11.2 07/16/2022 11.0 % 09/08/2021 11.1 % 06/05/2021 10.1 % ) CMP: Glucose 90 12/07/2022 BUN 10 12/07/2022 Creatinine, Whole Blood (iSTAT) 0.76 12/07/2022 Sodium 139 12/07/2022 Potassium 4.0 12/07/2022 Chloride 101 12/07/2022 CO2 23 12/07/2022 Protein, Total 7.0 12/02/2022 Albumin 3.5 12/02/2022 Calcium 9.3 12/07/2022 Alkaline Phosphatase 63 12/02/2022 Bilirubin, Total 0.3 12/02/2022 AST 14 12/02/2022 ALT 17 12/02/2022 Last 2 Encounter Wt Readings: Date: Wt: 01/31/2023 94.4 kg (208 lb 3.2 oz) 01/19/2023 95.8 kg (211 lb 3.2 oz) Subclinical hypothyroidism On no medication TSH Date Value 07/16/2022 5.460 mIU/L 12/10/2021 2.820 mIU/L 09/11/2021 4.490 uU/mL 04/21/2021 4.600 uU/mL ) HISTORIES FAMILY HISTORY Problem Relation Age of Onset None Mother None Father Stroke Sister Cancer Sister COPD Sister Breast Cancer Maternal Aunt PAST MEDICAL HISTORY Diagnosis Date Allergic rhinitis, cause unspecified Arthritis Asthma mild asthma Breast cancer (HCC) age 34-had lump, cancerous cells. no issues since, left Diverticulosis of colon (without mention of hemorrhage) Heme positive stool 2010 History of cervical cancer regular Paps for life Hyperlipidemia 2010 Inflammatory polyarthritis (HCC) Dr. 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) Sleep apnea Type II or unspecified type diabetes mellitus without mention of complication, not stated as uncontrolled Unspecified essential hypertension PAST SURGICAL HISTORY Procedure Laterality Date ABDOMINAL SURGERY HX hx of feeding tube inserted APPENDECTOMY APPENDECTOMY HX BREAST SURGERY HX COLONOSCOPY FLX DX W/COLLJ SPEC WHEN PFRMD 06/26/2009 COLONOSCOPY FLX DX W/COLLJ SPEC WHEN PFRMD 04/10/2019 Colonoscopy COLONOSCOPY SCREENING 02/11/2022 Dr Olivas EGD 2010 EGD 02/11/2022 Dr Olivas ERCP DX COLLECTION SPECIMEN BRUSHING/WASHING 07/23/2008 Cholangiopancreatography (ERCP) ESOPHAGOGASTRODUODENOSCOPY TRANSORAL DIAGNOSTIC 04/10/2019 EGD EYE SURGERY HX MASTECTOMY Left age 34 Mastectomy - simple MASTECTOMY HX PAST SURGICAL HISTORY OF nose cauterized inside RMVL SEC MEMBRANOUS CTRC CORNEO-SCLL SCTJ Bilateral Cataract removal BILATERAL TOTAL ABDOMINAL HYSTERECT W/WO RMVL TUBE OVARY age 27 Hysterectomy, MARQUES cervical cancer, has one ovary left VAGINAL HYSTERECTOMY Social History Tobacco Use Smoking status: Former Packs/day: 0.75 Years: 30.00 Pack years: 22.50 Types: Cigarettes Quit date: 08/15/2000 Years since quittin.5 Smokeless tobacco: Never Vaping Use Vaping Use: Never used Substance Use Topics Alcohol use: Never Comment: rarely Drug use: No ACTIVE PROBLEM LIST Hyperlipidemia Allergic Rhinitis Osteoarthritis Asymptomatic Varicose Veins Reflux Esophagitis Ibs (Irritable Bowel Syndrome) Htn (Hypertension) Urge Incontinence Inflammatory Polyarthritis (Hcc) Type 2 Diabetes Mellitus With Proliferative Retinopathy Without Macular Edema, With Long-Term Current Use of Insulin, Unspecified Laterality (Hcc) History of Cervical Cancer History of Breast Cancer H/O Left Mastectomy Obesity, Class I, Bmi 30-34.9 Pes Anserinus Bursitis of Both Knees Age-Related Osteoporosis Without Current Pathological Fracture Gastroparesis Due to Secondary Diabetes (Hcc) Subclinical Hypothyroidism Insulin Pump in Place Svt (Supraventricular Tachycardia) (Hcc) Calculus of Gallbladder Without Cholecystitis Without Obstruction Adenoma of Left Adrenal Gland Lung Nodules Stage 3 Chronic Kidney Disease, Unspecified Whether Stage 3a Or 3b Ckd (Hcc) Current Outpatient Medications Medication Sig Dispense Refill atorvastatin (LIPITOR) 20 mg tablet Take 1 tablet by mouth daily at bedtime. For cholesterol. 30 tablet 5 amoxicillin (AMOXIL) 500 mg capsule Take 500 mg by mouth three times daily. methotrexate 2.5 mg tablet HUMULIN R U-500, CONC, KWIKPEN 500 unit/mL (3 mL) inpn Inject 75 Units subcutaneously three times daily. 70/70/55 amLODIPine (NORVASC) 5 mg tablet Take 1 tablet by mouth once daily. 30 tablet 11 melatonin 3 mg tablet Take 1 tablet at 9PM nightly. 90 tablet 1 insulin needles, DISPOSABLE, (PEN NEEDLE) 31 gauge x 5/16 Use one needle per dose. 4 per day. 4 Each 99 ondansetron orally disintegrating (ZOFRAN ODT) 4 mg disintegrating tablet DISSOLVE 1 TABLET IN MOUTH THREE TIMES DAILY NEEDED FOR NAUSEA AND VOMITING oxybutynin ER (DITROPAN XL) 10 mg 24 hr tablet Take 2 tablets by mouth once daily. 180 tablet 0 blood sugar diagnostic (ONETOUCH VERIO TEST STRIPS) test strip Test blood sugar(s) 3-4 times daily.Dx: Other DM Code E11.319 Insulin: Yes 100 Strip 11 metaxalone (SKELAXIN) 800 mg tablet Take 1 tablet by mouth three times daily as needed for pain. 30tablet 0 pzhtlahfhdz-uehnvvcjw-pdrfkgrb (TRELEGY ELLIPTA) 100-62.5-25 mcg inhalation powder Inhale 1 Puff asinstructed once daily. 1 Each 5 Cholecalciferol, Vitamin D3, 50 mcg (2,000 unit) cap Take 1 capsule by mouth once daily. gabapentin (NEURONTIN) 300 mg capsule Take 1 capsule by mouth daily at bedtime for 90 days. 30 capsule 2 escitalopram oxalate (LEXAPRO) 10 mg tablet Take 1 tablet by mouth once daily. 90 tablet 1 esomeprazole (NEXIUM) 40 mg capsule Take 1 capsule by mouth twice daily before meals. 1/2 hr beforemeal. 180 capsule 3 losartan (COZAAR) 100 mg tablet Take 1 tablet by mouth once daily. 30 tablet 11 fluticasone (FLONASE) 50 mcg/actuation nasal spray USE 1 SPRAY IN EACH NOSTRIL ONCE DAILY AT BEDTIME DIRECTED 16 g 11 hydroCHLOROthiazide (HYDRODIURIL, ESIDRIX) 12.5 mg capsule Take 1 capsule by mouth once daily. 30 capsule 11 metoprolol succinate ER (TOPROL XL) 100 mg Take 1 tablet by mouth once daily. 30 tablet 5 loratadine (CLARITIN) 10 mg tablet Take 1 tablet by mouth once daily. 30 tablet 5 insulin degludec (TRESIBA FLEXTOUCH U-100) 100 unit/mL (3 mL) injection pen Inject 66 Units subcutaneously daily at bedtime. (Patient not taking: Reported on 01/19/2023) 18 mL 5 metFORMIN ER (GLUCOPHAGE XR) 500 mg 24 hr tablet Take 4 tablets by mouth daily with breakfast. 360 tablet 3 albuterol HFA (PROAIR HFA) 90 mcg/actuation inhaler Inhale 2 Puffs as instructed every 4 hours as needed. 1 Inhaler 1 blood sugar diagnostic (BLOOD GLUCOSE TEST) test strip Test blood sugar(s) 3 times daily. Dx: Type 2 DM - Controlled E11.9 Insulin: YES 100 Each 11 Blood-Glucose Meter monitoring kit Glucose Meter of Choice - Kit - Dx: Type 2 DM - Controlled E11.91 Each 0 COMPOUNDED PRESCRIPTION Insulin needles-1/2 cc for 100 u Use up to 4 a day 150 Each 11 fluorometholone (FML LIQUID FILM) 0.1 % ophthalmic suspension Use 2 Drops in the left eye twice daily. No current facility-administered medications for this visit. BP CONTROLLED (<130/80) Never done DILATED RETINAL EXAM due on 10/19/2022 EXAM: BP 150/74 Pulse 91 Resp 16 Wt 95.3 kg (210 lb) SpO2 92% BMI 38.41 kg/m Last 14 BP Last 14 Encounter BP Readings: Date: BP: 02/17/2023 150/74 01/31/2023 161/91 01/19/2023 138/74 01/12/2023 128/72 12/22/2022 161/84 12/20/2022 161/87 12/07/2022 130/78 12/02/2022 132/82 06/23/2022 140/84 05/13/2022 136/88 05/06/2022 150/70 05/03/2022 144/78 05/01/2022 124/04/06/2022 148/66 Pleasant older woman in no acute distress. Alert and oriented all spheres. Normal affect and cognition. Speech normal. No deficits to learning or comprehension. Skin warm, dry, pink to lips and nailbeds. Normal turgor. Respirations regular and unlabored. HEENT: NCAT. No scleral icterus or conjunctival injection. TM's clear. Nose and oropharynx free from injection or lesion. Oral membranes moist and pink. No cervical lymph nodes. Thyroid non-tender, no masses, or enlargement. Carotids pulses 2+/4+ without bruits. No JVD with HOB at 30 degrees. Chest is normal shape. Lungs are clear to all fr[place] with good air exchange through out. HRRR without murmur or gallop. No lifts, heaves, or rubs. Extrem: no clubbing or cyanosis. Edema: none. Extremities are warm and pink with prompt capillary refill. ASSESSMENT/PLAN: 1. Primary hypertension - ICD9: 401.9, ICD10: I10 (primary diagnosis) - Worsening control: labile - Continue current medications - Recommend home blood pressure monitoring, to bring results to next visit - Encouraged sodium restriction, DASH or Mediterranean diet - Recommend regular aerobic exercise - Discussed need for and benefit of weight loss. BMI 38.41 kg/(m^2) 2. Mixed hyperlipidemia - ICD9: 272.2, ICD10: E78.2 - Controlled - Continue current medications - Counseled on healthy diet and regular exercise 3. SVT (supraventricular tachycardia) (HCC) - ICD9: 427.89, ICD10: I47.1 No recent sx 4. RICARDO (obstructive sleep apnea) - ICD9: 327.23, ICD10: G47.33 Awaiting device 5. Stage 3 chronic kidney disease, unspecified whether stage 3a or 3b CKD (HCC) - ICD9: 585.3, ICD10: N18.30 - eGFR: Stable - Albuminuria: 35 - Counseled on avoiding NSAIDs, adequate hydration - Counseled on low sodium diet 6. 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 Insulin pump in place - ICD9: V45.85, ICD10: Z96.41 discontinued 8. Gastroparesis due to secondary diabetes (HCC) - ICD9: 249.60, 536.3, ICD10: E13.43 - Controlled - Continue current medications 9. Subclinical hypothyroidism - ICD9: 244.8, ICD10: E03.8 - Instructed patient on importance of taking on an empty stomach either first thing in the morning or at bedtime. - TSH BLD 10. Urinary frequency - ICD9: 788.41, ICD10: R35.0 acute - Patient education for prevention given - UA DIP, URINE (POC) - URINE CULTURE - URINALYSIS, WITH MICROSCOPIC 11. Microalbuminuria - ICD9: 791.0, ICD10: R80.9 Discussed improvement in blood sugars and controlled BP will improve protein leaking. F/U with endo as don't want to confuse prescribing Usman Barboza PA-C documented [facility]-2023 Miscellaneous Notes* Telephone Encounter - Areli Salas LPN - 02/10/2023 3:30 PM EDT Spoke with patient and she states that she may have missed 3-4 doses advised that this is not enough to have made an impact. It is time to refill her medication anyway. Dr Hernández will send increased dose to pharmacy. Manisha states that she will do better about taking her medications. * Telephone Encounter - Ilir Hernández MD - 02/10/2023 2:54 PM EDT Cholesterol is much higher. Missed any lipitor doses. If not, will need it increased and labs in six weeks. documented in this encounterWo[facility]06-26-2023 Miscellaneous Notes* Telephone Encounter - Jen Glover RN - 02/07/2023 4:28 PM EDT Images from the original note were not included. Patient notified of provider's message below. Appt made as recommended. Jen Glover RN Result Notes M Luis Barboza PA-C 02/06/2023 11:24 AM EDT Please let her know her hemoglobin A1c has come down slightly to 10.4% is still not controlled. She is showing moderately increased microscopic protein in the urine indicating diabetic damage. Has appointment in June but I would recommend that she follow-up in the office with 1 of us before that to go over diabetes and make medication changes. Thanks, Dex Barboza PA-C documented in this encounterW[facility]06-19-2023 Miscellaneous Notes* Telephone Encounter - Dejah Robertson LPN - 01/31/2023 3:47 PM EDT Ilir Cutler Jr., MD [facility] Nurse Please contact trauma doctor Dr. Chi in [place] and inform them of HYPOGLYCEMIC events that pt is experiencing with BP down in the 50s and then not feeling well all day long. Thank you. Office note faxed to [facility] at [phone]. Dejah Robertson LPN documented in this encounterWo[facility]06-19-2023 History of Present illness Narrative* Ilir Cutler Jr., MD - 01/31/2023 2:00 PM EDT ESTABLISHED PATIENT VISIT CHIEF COMPLAINT: HSAT follow up HISTORY OF PRESENT ILLNESS: Manisha Keith is a 72 year old female, with a PMH significant for and per last office visit note of 12/20/22: 1. RICARDO (obstructive sleep apnea) - ICD9: 327.23, ICD10: G47.33 (primary diagnosis) 2. Insomnia, unspecified type - ICD9: 780.52, ICD10: G47.00 3. 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 Ddx d/w pt. Initially did not endorse sleep onset insomnia, but later endorses difficulties falling asleep at a regular time. Regarding RICARDO, pt states unable to use PAP as it will cause an infection. Discussed with pt other treatment options. Unfortunately cannot use dental appliance due to dentures. Thus should consider surgical options depending on severity of RICARDO. That said, needs new sleep study to reevaluate severityof RICARDO. Note 40 pound weight gain since last study. Pt agrees with new study by means of HSAT. If RICARDO moderate to severe and unable to tolerate PAP, will refer to ENT for surgical evaluation and options. Note pt with DM, HTN, HLD all of which could be exacerbated by untreated RICARDO. Discussed with patient: the physiology of OSAS, medical conditions associated with OSAS (DM, HTN, CAD, Depression, Str russell, Headache...). As for shift work disorder, explained to pt will take time to adjust to first shift schedule. To accelerate process, with pt having goal bedtime of midnight, will start on melatonin 3mg at 9PM or 3 hours prior to goal bedtime. Dx including physiology and treatment d/w pt. HSAT performed 01/12/23. AHI was 46.1 with patient having O2 saturation <90%for 69.2% of this recording. Pt states not feeling well this AM as woke with hypoglycemia - now resolved. Regarding sleep schedule, getting a little better. Taking melatonin 3mg at 9PM. States it helps. Usually tries to get in bed by 11PM. Sometimes falls asleep right away and other times might be up for2-3 hours. REVIEW OF SYSTEMS GENERAL:No weight loss, malaise or fevers. HEENT:Negative for frequent or significant headaches, No changes in hearing or vision, no nose bleeds or other nasal problems RESPIRATORY: Negative for cough, wheezing or shortness of breath. CARDIOVASCULAR: Negative for chest pain, leg swelling or palpitations. LAB/IMAGING: Those performed since patient's last visit have been reviewed. WBC (k/uL) Date Value 12/07/2022 8.19 RBC (m/uL) Date Value 12/07/2022 4.12 Hemoglobin (g/dL) Date Value 12/07/2022 13.0 Hematocrit (%) Date Value 12/07/2022 40.8 MCV (fL) Date Value 12/07/2022 99.0 MCH (pg) Date Value 12/07/2022 31.6 MCHC (g/dL) Date Value 12/07/2022 31.9 RDW-CV (%) Date Value 12/07/2022 13.0 Platelet Count (k/uL) Date Value 12/07/2022 260 MPV (fL) Date Value 12/07/2022 9.7 Glucose (mg/dL) Date Value 12/07/2022 90 BUN (mg/dL) Date Value 12/07/2022 10 Creatinine (mg/dL) Date Value 12/07/2022 0.76 Sodium (mmol/L) Date Value 12/07/2022 139 Potassium (mmol/L) Date Value 12/07/2022 4.0 Chloride (mmol/L) Date Value 12/07/2022 101 CO2 (mmol/L) Date Value 12/07/2022 23 Protein, Total (g/dL) Date Value 12/02/2022 7.0 Albumin (g/dL) Date Value 12/02/2022 3.5 (L) Calcium, Total (mg/dL) Date Value 12/07/2022 9.3 Alkaline Phosphatase (U/L) Date Value 12/02/2022 63 Bilirubin, Total (mg/dL) Date Value 12/02/2022 0.3 AST (U/L) Date Value 12/02/2022 14 ALT (U/L) Date Value 12/02/2022 17 OLLIE (no units) Date Value 05/12/2022 Negative Rheumatoid Factor (IU/mL) Date Value 05/12/2022 <10 Hep C Antibody IA (no units) Date Value 08/23/2016 Negative MEDICATIONS: amoxicillin (AMOXIL) 500 mg capsule Take 500 mg by mouth three times daily. methotrexate 2.5 mg tablet HUMULIN R U-500, CONC, KWIKPEN 500 unit/mL (3 mL) inpn Inject 75 Units subcutaneously three times daily. 70/70/55 amLODIPine (NORVASC) 5 mg tablet Take 1 tablet by mouth once daily. melatonin 3 mg tablet Take 1 tablet at 9PM nightly. insulin needles, DISPOSABLE, (PEN NEEDLE) 31 gauge x 5/16 Use one needle per dose. 4 per day. ondansetron orally disintegrating (ZOFRAN ODT) 4 mg disintegrating tablet DISSOLVE 1 TABLET IN MOUTH THREE TIMES DAILY NEEDED FOR NAUSEA AND VOMITING oxybutynin ER (DITROPAN XL) 10 mg 24 hr tablet Take 2 tablets by mouth once daily. blood sugar diagnostic (ONETOUCH VERIO TEST STRIPS) test strip Test blood sugar(s) 3-4 times daily.Dx: Other DM Code E11.319 Insulin: Yes metaxalone (SKELAXIN) 800 mg tablet Take 1 tablet by mouth three times daily as needed for pain. onuujsdmlph-nuoyhvhlt-wcsisqsh (TRELEGY ELLIPTA) 100-62.5-25 mcg inhalation powder Inhale 1 Puff asinstructed once daily. Cholecalciferol, Vitamin D3, 50 mcg (2,000 unit) cap Take 1 capsule by mouth once daily. gabapentin (NEURONTIN) 300 mg capsule Take 1 capsule by mouth daily at bedtime for 90 days. escitalopram oxalate (LEXAPRO) 10 mg tablet Take 1 tablet by mouth once daily. esomeprazole (NEXIUM) 40 mg capsule Take 1 capsule by mouth twice daily before meals. 1/2 hr beforemeal. losartan (COZAAR) 100 mg tablet Take 1 tablet by mouth once daily. fluticasone (FLONASE) 50 mcg/actuation nasal spray USE 1 SPRAY IN EACH NOSTRIL ONCE DAILY AT BEDTIME DIRECTED hydroCHLOROthiazide (HYDRODIURIL, ESIDRIX) 12.5 mg capsule Take 1 capsule by mouth once daily. metoprolol succinate ER (TOPROL XL) 100 mg Take 1 tablet by mouth once daily. atorvastatin (LIPITOR) 10 mg tablet Take 1 tablet by mouth daily at bedtime. For cholesterol. loratadine (CLARITIN) 10 mg tablet Take 1 tablet by mouth once daily. insulin degludec (TRESIBA FLEXTOUCH U-100) 100 unit/mL (3 mL) injection pen Inject 66 Units subcutaneously daily at bedtime. (Patient not taking: Reported on 01/19/2023) metFORMIN ER (GLUCOPHAGE XR) 500 mg 24 hr tablet Take 4 tablets by mouth daily with breakfast. albuterol HFA (PROAIR HFA) 90 mcg/actuation inhaler Inhale 2 Puffs as instructed every 4 hours as needed. blood sugar diagnostic (BLOOD GLUCOSE TEST) test [...] Drops in the left eye twice daily. HISTORIES PAST MEDICAL HISTORY Diagnosis Date Allergic rhinitis, cause unspecified Arthritis Asthma mild asthma Breast cancer (HCC) age 34-had lump, cancerous cells. no issues since, left Diverticulosis of colon (without mention of hemorrhage) Heme positive stool 2010 History of cervical cancer regular Paps for life Hyperlipidemia 2011 Inflammatory polyarthritis (HCC) Dr. 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) Sleep apnea Type II or unspecified type diabetes mellitus without mention of complication, not stated as uncontrolled Unspecified essential hypertension FAMILY HISTORY Problem Relation Age of Onset None Mother None Father Stroke Sister Cancer Sister COPD Sister Breast Cancer Maternal Aunt SOCIAL HISTORY Social History Tobacco Use Smoking status: Former Packs/day: 0.75 Years: 30.00 Pack years: 22.50 Types: Cigarettes Quit date: 08/15/2000 Years since quittin.4 Smokeless tobacco: Never Vaping Use Vaping Use: Never used Substance Use Topics Alcohol use: Never Comment: rarely Drug use: No PHYSICAL EXAMINATION Blood pressure 161/91, pulse 101, temperature 36.4 C (97.6 F), resp. rate 16, weight 94.4 kg (208 lb 3.2 oz), SpO2 95 %. GENERAL EXAM: General appearance: NAD, pleasant. HEENT: NC/AT, nasal congestion absent, no oral lesions, membranes moist. NECK: No masses, supple. Lungs: CTA bilaterally. CV: [place], but pt states rushing to get in. Repeat 90 BPM. BP elevated but did not take meds. NEUROLOGICAL EXAM: General: Awake, alert, oriented x3 (person,place,time), speech fluent, no dysarthria; comprehension, naming, repetition intact. CN: PERRL, VFF to confrontation, facial sensation and strength are normal and symmetric, hearing isintact to finger rub bilaterally, palate and tongue movements are intact and symmetric. SCM and trapezius strength normal. Motor: Normal tone, bulk and strength (5/5) bilaterally (throughout extremities x4). Coordination: FNF, MIKY intact. No tremors. Sensation: LT intact throughout. No evidence of neglect. Gait: Stable with normal stride and arm swing. Assessment and Plan: ASSESSMENT/PLAN: 1. Obstructive sleep apnea (adult) (pediatric) - ICD9: 327.23, ICD10: G47.33 (primary diagnosis) 2. Sleep related hypoxia - ICD9: 327.24, ICD10: G47.34 Patient with severe RICARDO as above, and determined by HSAT. Concerning not only is severity but also recorded sleep related hypoxia. Pt denies cardiac or pulmonary disease. Previously did not like CPAPas always was getting infections. However, uncertain if associated with device. Reviewed treatment options with pt and given hypoxia, recommending pt try PAP once more and if fails then consider surgical options as last resort with dental appliance not being an option due to teeth removal. Pt agrees with plan. Note, we will place on bilevel PAP rather than CPAP due to prior issues with CPAP therapy. This will be an in lab titration due to hypoxia. Pt requests [facility]. Pt agrees with plan. Encouraged weight loss. Advised pt not to drive or operate heavy machinery if sleepy. 3. Hypoglycemia - ICD9: 251.2, ICD10: E16.2 4. Hypertension, unspecified type - ICD9: 401.9, ICD10: I10 Will inform Dr. Chi (endocrine) and Dr. Hernández PCP). pt states BP up due to not taking today's meds,but also reporting frequent bouts of hypoglycemia. Also informed pt to contact her physicians. Ilir Cutler MD I spent a total of 27 minutes on the date of the service which included preparing to see the patient, [id number] patient care, completing clinical documentation, obtaining and/or reviewing separately obtained history, performing a medically appropriate examination, counseling and educating the pat ient/family/caregiver, ordering medications, tests, or procedures, independently interpreting results (not separately reported), and communicating results to the patient/family/caregiver. documented in this encounterW[facility]06[facility] History of Present illness Narrative* Ilir Hernández MD - 01/19/2023 11:36 AM EDT Patient presents with: Follow Up HPI: Patient presents today for office visit for 4wk follow up on blood pressure. Amlodipine 5 mg daily added at last OV. Has not monitored BP since med addition. Denies chest pain SOB with exertion No headaches Occasional lightheaded but no worse. Red flags for re-assessment reviewed with patient in detail. Palpitations with exertion. Sees cardiology Edema to B/L feet and ankles - no worse and is stable for her. Sugars are doing well. Bp was 128/84 at endo yesterday Was 128/72 at 01/12 visit. MEDICATIONS: Current Outpatient Medications Medication Sig amoxicillin (AMOXIL) 500 mg capsule Take 500 mg by mouth three times daily. methotrexate 2.5 mg tablet HUMULIN R U-500, CONC, KWIKPEN 500 unit/mL (3 mL) inpn Inject 75 Units subcutaneously three times daily. amLODIPine (NORVASC) 5 mg tablet Take 1 tablet by mouth once daily. melatonin 3 mg tablet Take 1 tablet at 9PM nightly. insulin needles, DISPOSABLE, (PEN NEEDLE) 31 gauge x 12/28 Use one needle per dose. 4 per day. ondansetron orally disintegrating (ZOFRAN ODT) 4 mg disintegrating tablet DISSOLVE 1 TABLET IN MOUTH THREE TIMES DAILY NEEDED FOR NAUSEA AND VOMITING oxybutynin ER (DITROPAN XL) 10 mg 24 hr tablet Take 2 tablets by mouth once daily. blood sugar diagnostic (ONETOUCH VERIO TEST STRIPS) test strip Test blood sugar(s) 3-4 times daily.Dx: Other DM Code E11.319 Insulin: Yes metaxalone (SKELAXIN) 800 mg tablet Take 1 tablet by mouth three times daily as needed for pain. peqmbkhqmtp-mwyiarzfl-fesxyihx (TRELEGY ELLIPTA) 100-62.5-25 mcg inhalation powder Inhale 1 Puff asinstructed once daily. Cholecalciferol, Vitamin D3, 50 mcg (2,000 unit) cap Take 1 capsule by mouth once daily. gabapentin (NEURONTIN) 300 mg capsule Take 1 capsule by mouth daily at bedtime for 90 days. escitalopram oxalate (LEXAPRO) 10 mg tablet Take 1 tablet by mouth once daily. esomeprazole (NEXIUM) 40 mg capsule Take 1 capsule by mouth twice daily before meals. 1/2 hr beforemeal. losartan (COZAAR) 100 mg tablet Take 1 tablet by mouth once daily. fluticasone (FLONASE) 50 mcg/actuation nasal spray USE 1 SPRAY IN EACH NOSTRIL ONCE DAILY AT BEDTIME DIRECTED hydroCHLOROthiazide (HYDRODIURIL, ESIDRIX) 12.5 mg capsule Take 1 capsule by mouth once daily. metoprolol succinate ER (TOPROL XL) 100 mg Take 1 tablet by mouth once daily. atorvastatin (LIPITOR) 10 mg tablet Take 1 tablet by mouth daily at bedtime. For cholesterol. loratadine (CLARITIN) 10 mg tablet Take 1 tablet by mouth once daily. insulin degludec (TRESIBA FLEXTOUCH U-100) 100 unit/mL (3 mL) injection pen Inject 66 Units subcutaneously daily at bedtime. (Patient taking differently: Inject 34 Units subcutaneously daily at bedtime.) metFORMIN ER (GLUCOPHAGE XR) 500 mg 24 hr tablet Take 4 tablets by mouth daily with breakfast. albuterol HFA (PROAIR HFA) 90 mcg/actuation inhaler Inhale 2 Puffs as instructed every 4 hours as needed. blood sugar diagnostic (BLOOD GLUCOSE TEST) test [...] Drops in the left eye twice daily. No current facility-administered medications for this visit. ALLERGIES: ALLERGIES Allergen Reactions Jesenia Inhibitors Cough Nsaids (Non-Steroid* GI Upset Tape [Adhesive Tape* Other: See Comments Blisters from surgical tape Trulicity [Dulaglut* Other: See Comments Gastroparesis PAST MEDICAL HISTORY Diagnosis Date Allergic rhinitis, cause unspecified Arthritis Asthma mild asthma Breast cancer (HCC) age 34-had lump, cancerous cells. no issues since, left Diverticulosis of colon (without mention of hemorrhage) Heme positive stool 2010 History of cervical cancer regular Paps for life Hyperlipidemia 2011 Inflammatory polyarthritis (HCC) Dr. 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) Sleep apnea Type II or unspecified type diabetes mellitus without mention of complication, not stated as uncontrolled Unspecified essential hypertension PAST SURGICAL HISTORY Procedure Laterality Date ABDOMINAL SURGERY HX hx of feeding tube inserted APPENDECTOMY APPENDECTOMY HX BREAST SURGERY HX COLONOSCOPY FLX DX W/COLLJ SPEC WHEN PFRMD 06/26/2009 COLONOSCOPY FLX DX W/COLLJ SPEC WHEN PFRMD 04/10/2019 Colonoscopy COLONOSCOPY SCREENING 02/11/2022 Dr Olivas EGD 2010 EGD 02/11/2022 Dr Olivas ERCP DX COLLECTION SPECIMEN BRUSHING/WASHING 07/23/2008 Cholangiopancreatography (ERCP) ESOPHAGOGASTRODUODENOSCOPY TRANSORAL DIAGNOSTIC 04/10/2019 EGD EYE SURGERY HX MASTECTOMY Left age 34 Mastectomy - simple MASTECTOMY HX PAST SURGICAL HISTORY OF nose cauterized inside RMVL SEC MEMBRANOUS CTRC CORNEO-SCLL SCTJ Bilateral Cataract removal BILATERAL TOTAL ABDOMINAL HYSTERECT W/WO RMVL TUBE OVARY age 27 Hysterectomy, MARQUES cervical cancer, has one ovary left VAGINAL HYSTERECTOMY FAMILY HISTORY Problem Relation Age of Onset None Mother None Father Stroke Sister Cancer Sister COPD Sister Breast Cancer Maternal Aunt Social History Tobacco Use Smoking status: Former Packs/day: 0.75 Years: 30.00 Pack years: 22.50 Types: Cigarettes Quit date: 08/15/2000 Years since quittin.4 Smokeless tobacco: Never Vaping Use Vaping Use: Never used Substance Use Topics Alcohol use: Never Comment: rarely Drug use: No Reviewed current medications, allergies, past medical history, surgical history, family history andsocial history today. REVIEW OF SYSTEMS All other reviewed and negative other than HPI. HEALTH MAINTENANCE: Reviewed health maintenance issues today and recommended the following in detail. DILATED RETINAL EXAM- has appt SHINGRIX VACCINE(2 of 2) due on 01/27/2023 VITALS: BP 138/74 Pulse 96 Ht 157.5 cm (5' 2) Wt 95.8 kg (211 lb 3.2 oz) SpO2 97% BMI 38.63 kg/m Last 4 Encounter Wt Readings: Date: Wt: 01/12/2023 93.8 kg (206 lb 12.8 oz) 12/22/2022 93.8 kg (206 lb 12.8 oz) 12/20/2022 91.4 kg (201 lb 6.4 oz) 12/07/2022 91.6 kg (202 lb) PHYSICAL EXAMINATION: General appearance: Well appearing, [...] normal. No masses, organomegaly Extremities: No deformities, new edema, skin discoloration, clubbing or cyanosis. Good capillary refill. ASSESSMENT/PLAN: 1. Primary hypertension - ICD9: 401.9, ICD10: I10 (primary diagnosis) - Improving control - Continue current medications 2. 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 Stable. Ilir Hernández MD documented in [facility]06[facility] History of Present illness Narrative* Gely Queen - 01/14/2023 11:34 AM EDT Sleep Study Check-In Documentation Date: January 14, 2023 Name: Manisha Keith Comments: HST was returned in working order without all sleep questionnaires Patient was not reached. A voicemail was left with patient to call back to complete questionnaires. Gely Queen * Pamela Gregg PSS - 01/11/2023 2:40 PM EDT [employer]: [id number] Date: 01/11/23 [employer] Mailout Tracking Number: [id number] [employer] Return Tracking Number: [id number] * Jelena Cooper - 01/03/2023 8:36 AM EDT January 03, 2023 An order has been received for Home Sleep Apnea Test (HSAT) from Dr. Ilir Cutler Jr., MD , [facility] Staff/[employer] Staff Orders. Visit prep complete - Please refer to the sleep study order (under procedures tab) for protocol details and special instructions. The sleep study is scheduled for 01/14. Insurance: Payor: [employer] / Plan: [employer] HMO / Product Type: HMO/ Payer/Plan Subscr Sex Relation Sub. Ins. ID Effective Group Num 1. ROMEL Carver* MANISHA KEITH 1950 Female Self [id number] 08/15/22 [id number] Jelena Cooper documented in this encounter[facility]05[facility] History of Present illness Narrative* Joana Naranjo APRN.[facility] - 01/12/2023 5:28 PM EDT CC: Sinus congestion and dizziness. Patient has seasonal allergies has not taken seasonal allergy medication at this time other than Flonase. Patient denies any other symptoms at this time. Patient says this is happened before. HPI: Manisha Keith is a 72 year old female who presents to the office with complaint of head congestion and sinus symptoms since this morning. Symptoms are staying the same. Associated symptoms includes nasal congestion. Denies headache, body aches, fever, nausea, vomiting , and diarrhea. Treatments tried include nothing so far. with no relief of symptoms. Sick contacts: unknown. History of asthma, frequent episodes of bronchitis, chronic bronchitis, bronchiectasis or COPD: No Smoker: No Seasonal/environmental allergies: No The ROS is otherwise negative. The patient's pmh, medications, allergies, and past visits are reviewed. PHYSICAL EXAM: BP 128/72 Pulse 95 Temp 36.8 C (98.3 F) Resp 20 Wt 93.8 kg (206 lb 12.8 oz) SpO2 97% BMI 37.82 kg/m General appearance: alert, cooperative, pleasant, in no acute distress Head: Normocephalic Eyes: EOM's intact, conjunctiva pink and moist, no icterus, sclera white, non-injected Ears: Right ear: External ear/canal- Normal, TM - clear with good landmarks. Left ear: External ear/canal- Normal, TM - clear with good landmarks Oropharynx:moist without lesions, No erythema, exudates or tonsillar hypertrophy. Heart: Negative. RRR without obvious murmur, gallop, or rubs. No ectopy. Lungs: clear to auscultation, without rales or wheeze, good air exchange PAST MEDICAL HISTORY Diagnosis Date Allergic rhinitis, cause unspecified Arthritis Asthma mild asthma Breast cancer (HCC) age 34-had lump, cancerous cells. no issues since, left Diverticulosis of colon (without mention of hemorrhage) Heme positive stool 2010 History of cervical cancer regular Paps for life Hyperlipidemia 2010 Inflammatory polyarthritis (HCC) Dr. 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) Sleep apnea Type II or unspecified type diabetes mellitus without mention of complication, not stated as uncontrolled Unspecified essential hypertension PAST SURGICAL HISTORY Procedure Laterality Date ABDOMINAL SURGERY HX hx of feeding tube inserted APPENDECTOMY APPENDECTOMY HX BREAST SURGERY HX COLONOSCOPY FLX DX W/COLLJ SPEC WHEN PFRMD 06/26/2009 COLONOSCOPY FLX DX W/COLLJ SPEC WHEN PFRMD 04/10/2019 Colonoscopy COLONOSCOPY SCREENING 02/11/2022 Dr Olivas EGD 2010 EGD 02/11/2022 Dr Olivas ERCP DX COLLECTION SPECIMEN BRUSHING/WASHING 07/23/2008 Cholangiopancreatography (ERCP) ESOPHAGOGASTRODUODENOSCOPY TRANSORAL DIAGNOSTIC 04/10/2019 EGD EYE SURGERY HX MASTECTOMY Left age 34 Mastectomy - simple MASTECTOMY HX PAST SURGICAL HISTORY OF nose cauterized inside RMVL SEC [facility]BRANOUS CTRC CORNEO-SCLL SCTJ Bilateral Cataract removal BILATERAL TOTAL ABDOMINAL HYSTERECT W/WO RMVL TUBE OVARY age 27 Hysterectomy, MARQUES cervical cancer, has one ovary left VAGINAL HYSTERECTOMY ALLERGIES Jesenia Inhibitors, Nsaids (Non-Steroidal Anti-Inflammatory Drug), Tape [Adhesive Tape (Rosins)], and Trulicity [Dulaglutide] MEDICATIONS HUMULIN R U-500, CONC, KWIKPEN 500 unit/mL (3 mL) inpn Inject 75 Units subcutaneously three times daily. amLODIPine (NORVASC) 5 mg tablet Take 1 tablet by mouth once daily. melatonin 3 mg tablet Take 1 tablet at 9PM nightly. insulin needles, DISPOSABLE, (PEN NEEDLE) 31 gauge x 5/16 Use one needle per dose. 4 per day. ondansetron orally disintegrating (ZOFRAN ODT) 4 mg disintegrating tablet DISSOLVE 1 TABLET IN MOUTH THREE TIMES DAILY NEEDED FOR NAUSEA AND VOMITING oxybutynin ER (DITROPAN XL) 10 mg 24 hr tablet Take 2 tablets by mouth once daily. blood sugar diagnostic ([employer] VERIO TEST STRIPS) test strip Test blood sugar(s) 3-4 times daily.Dx: Other DM Code E11.319 Insulin: Yes metaxalone (SKELAXIN) 800 mg tablet Take 1 tablet by mouth three times daily as needed for pain. Cholecalciferol, Vitamin D3, 50 mcg (2,000 unit) cap Take 1 capsule by mouth once daily. gabapentin (NEURONTIN) 300 mg capsule Take 1 capsule by mouth daily at bedtime for 90 days. escitalopram oxalate (LEXAPRO) 10 mg tablet Take 1 tablet by mouth once daily. esomeprazole (NEXIUM) 40 mg capsule Take 1 capsule by mouth twice daily before meals. 1/2 hr beforemeal. losartan (COZAAR) 100 mg tablet Take 1 tablet by mouth once daily. fluticasone (FLONASE) 50 mcg/actuation nasal spray USE 1 SPRAY IN EACH NOSTRIL ONCE DAILY AT BEDTIME DIRECTED hydroCHLOROthiazide (HYDRODIURIL, ESIDRIX) 12.5 mg capsule Take 1 capsule by mouth once daily. metoprolol succinate ER (TOPROL XL) 100 mg Take 1 tablet by mouth once daily. atorvastatin (LIPITOR) 10 mg tablet Take 1 tablet by mouth daily at bedtime. For cholesterol. loratadine (CLARITIN) 10 mg tablet Take 1 tablet by mouth once daily. metFORMIN ER (GLUCOPHAGE XR) 500 mg 24 hr tablet Take 4 tablets by mouth daily with breakfast. albuterol HFA (PROAIR HFA) 90 mcg/actuation inhaler Inhale 2 Puffs as instructed every 4 hours as needed. blood sugar diagnostic (BLOOD GLUCOSE TEST) test [...] Drops in the left eye twice daily. ahyxjduquec-pcaugtkyu-quypgtbx (TRELEGY ELLIPTA) 100-62.5-25 mcg inhalation powder Inhale 1 Puff asinstructed once daily. insulin degludec (TRESIBA FLEXTOUCH U-100) 100 unit/mL (3 mL) injection pen Inject 66 Units subcutaneously daily at bedtime. (Patient taking differently: Inject 34 Units subcutaneously daily at bedtime.) FAMILY HISTORY Problem Relation Age of Onset None Mother None Father Stroke Sister Cancer Sister COPD Sister Breast Cancer Maternal Aunt Social History Tobacco Use Smoking status: Former Packs/day: 0.75 Years: 30.00 Pack years: 22.50 Types: Cigarettes Quit date: 08/15/2000 Years since quittin.4 Smokeless tobacco: Never Vaping Use Vaping Use: Never used Substance Use Topics Alcohol use: Never Comment: rarely Drug use: No ASSESSMENT/PLAN: 1. Nasal congestion - ICD9: 478.19, ICD10: R09.81 At this time patient was instructed to start her Claritin back up. Patient was instructed to continue to use Flonase every day. Patient was instructed to follow-up with primary care provider if symptoms seem to be getting worse not better. Prescription instructions reviewed with patient as applicable. Potential red flag symptoms discussed with the patient. Reviewed appropriate action plan to take if red flag symptoms occur. Patient agreeable to treatment plan. Joana Naranjo APRN.[facility] documented in this encounter[facility]05-[facility] History of Present illness Narrative* Ilir Hernández MD - 12/22/2022 10:17 AM EDT Patient presents with: 6 Month Exam HPI: Patient presents today for office visit for follow up. DM: Follows with Dr. Chi. Checking sugars TID No hypoglycemic spells Some trouble with eyes. Up to date with eye exam. Sees Ophthalmology. No foot lesions. Does have numbness in B/L feet. Denies pain No polyuria or polydipsia Stopped using Omnipod. States it's too expensive and leaks her insulin. Now on Humulin [address] Chi again in January. Follows with neurology. CPAP D/C due to causing frequent URI. Uses melatonin at bedtime. HLD: No myalgias URO: Taking Oxybutynin for incontinence. No urinary issues. HTN: Does not check BP Denies chest pain Some SOB with exertion. She states this is not any different than normal. Some edema to feet and ankles Occasionally has palpitations. Has seen Cardiology. No syncope Has RLS. Is on gabapentin. PSYCH: Anxiety is controlled. Once in awhile will get shaky. Taking valium and lexapro prn. Discussed thatshe needs to take regularly. No issues. Suggested she stop the valium. Was taking phenteramine for weight loss prn .suggested she not take it. MEDICATIONS: Current Outpatient Medications Medication Sig HUMULIN R U-500, CONC, KWIKPEN 500 unit/mL (3 mL) inpn Inject 75 Units subcutaneously three times daily. Phentermine HCl 37.5 mg tablet TAKE 1 TABLET BY MOUTH ONCE DAILY, 30 MINUTES BEFORE OR 1 TO 2 HOURSAFTER BREAKFAST. melatonin 3 mg tablet Take 1 tablet at 9PM nightly. insulin needles, DISPOSABLE, (PEN NEEDLE) 31 gauge x 5/16 Use one needle per dose. 4 per day. ondansetron orally disintegrating (ZOFRAN ODT) 4 mg disintegrating tablet DISSOLVE 1 TABLET IN MOUTH THREE TIMES DAILY NEEDED FOR NAUSEA AND VOMITING diazePAM (VALIUM) 2 mg tablet TAKE 1 TABLET BY MOUTH THREE TIMES DAILY NEEDED FOR MUSCLE SPASM FOR 5 DAYS oxybutynin ER (DITROPAN XL) 10 mg 24 hr tablet Take 2 tablets by mouth once daily. blood sugar diagnostic ([employer] VERIO TEST STRIPS) test strip Test blood sugar(s) 3-4 times daily.Dx: Other DM Code E11.319 Insulin: Yes metaxalone (SKELAXIN) 800 mg tablet Take 1 tablet by mouth three times daily as needed for pain. vflxchhztrb-ztylsslqi-jasnqthf (TRELEGY ELLIPTA) 100-62.5-25 mcg inhalation powder Inhale 1 Puff asinstructed once daily. Cholecalciferol, Vitamin D3, 50 mcg (2,000 unit) cap Take 1 capsule by mouth once daily. gabapentin (NEURONTIN) 300 mg capsule Take 1 capsule by mouth daily at bedtime for 90 days. escitalopram oxalate (LEXAPRO) 10 mg tablet Take 1 tablet by mouth once daily. esomeprazole (NEXIUM) 40 mg capsule Take 1 capsule by mouth twice daily before meals. 1/2 hr beforemeal. losartan (COZAAR) 100 mg tablet Take 1 tablet by mouth once daily. fluticasone (FLONASE) 50 mcg/actuation nasal spray USE 1 SPRAY IN EACH NOSTRIL ONCE DAILY AT BEDTIME DIRECTED hydroCHLOROthiazide (HYDRODIURIL, ESIDRIX) 12.5 mg capsule Take 1 capsule by mouth once daily. metoprolol succinate ER (TOPROL XL) 100 mg Take 1 tablet by mouth once daily. atorvastatin (LIPITOR) 10 mg tablet Take 1 tablet by mouth daily at bedtime. For cholesterol. loratadine (CLARITIN) 10 mg tablet Take 1 tablet by mouth once daily. insulin degludec (TRESIBA FLEXTOUCH U-100) 100 unit/mL (3 mL) injection pen Inject 66 Units subcutaneously daily at bedtime. (Patient taking differently: Inject 34 Units subcutaneously daily at bedtime.) metFORMIN ER (GLUCOPHAGE XR) 500 mg 24 hr tablet Take 4 tablets by mouth daily with breakfast. albuterol HFA (PROAIR HFA) 90 mcg/actuation inhaler Inhale 2 Puffs as instructed every 4 hours as needed. blood sugar diagnostic (BLOOD GLUCOSE TEST) test [...] Drops in the left eye twice daily. No current facility-administered medications for this visit. ALLERGIES: ALLERGIES Allergen Reactions Jesenia Inhibitors Cough Nsaids (Non-Steroid* GI Upset Tape [Adhesive Tape* Other: See Comments Blisters from surgical tape Trulicity [Dulaglut* Other: See Comments Gastroparesis PAST MEDICAL HISTORY Diagnosis Date Allergic rhinitis, cause unspecified Arthritis Asthma mild asthma Breast cancer (HCC) age 34-had lump, cancerous cells. no issues since, left Diverticulosis of colon (without mention of hemorrhage) Heme positive stool 2010 History of cervical cancer regular Paps for life Hyperlipidemia 2010 Inflammatory polyarthritis (HCC) Dr. 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) Sleep apnea Type II or unspecified type diabetes mellitus without mention of complication, not stated as uncontrolled Unspecified essential hypertension PAST SURGICAL HISTORY Procedure Laterality Date ABDOMINAL SURGERY HX hx of feeding tube inserted APPENDECTOMY APPENDECTOMY HX BREAST SURGERY HX COLONOSCOPY FLX DX W/COLLJ SPEC WHEN PFRMD 06/26/2009 COLONOSCOPY FLX DX W/COLLJ SPEC WHEN PFRMD 04/10/2019 Colonoscopy COLONOSCOPY SCREENING 02/11/2022 Dr Olivas EGD 2010 EGD 02/11/2022 Dr Olivas ERCP DX COLLECTION SPECIMEN BRUSHING/WASHING 07/23/2008 Cholangiopancreatography (ERCP) ESOPHAGOGASTRODUODENOSCOPY TRANSORAL DIAGNOSTIC 04/10/2019 EGD EYE SURGERY HX MASTECTOMY Left age 34 Mastectomy - simple MASTECTOMY HX PAST SURGICAL HISTORY OF nose cauterized inside RMVL SEC MEMBRANOUS CTRC CORNEO-SCLL SCTJ Bilateral Cataract removal BILATERAL TOTAL ABDOMINAL HYSTERECT W/WO RMVL TUBE OVARY age 27 Hysterectomy, MARQUES cervical cancer, has one ovary left VAGINAL HYSTERECTOMY FAMILY HISTORY Problem Relation Age of Onset None Mother None Father Stroke Sister Cancer Sister COPD Sister Breast Cancer Maternal Aunt Social History Tobacco Use Smoking status: Former Packs/day: 0.75 Years: 30.00 Pack years: 22.50 Types: Cigarettes Quit date: 08/15/2000 Years since quittin.3 Smokeless tobacco: Never Vaping Use Vaping Use: Never used Substance Use Topics Alcohol use: Never Comment: rarely Drug use: No Reviewed current medications, allergies, past medical history, surgical history, family history andsocial history today. REVIEW OF SYSTEMS All other reviewed and negative other than HPI. HEALTH MAINTENANCE: Reviewed health maintenance issues today and recommended the following in detail. BP CONTROLLED (<130/80) Never done DIABETIC FOOT EXAM- done last ov DILATED RETINAL EXAM- -gets regularly VITALS: BP 161/84 Pulse 91 Ht 157.5 cm (5' 2) Wt 93.8 kg (206 lb 12.8 oz) BMI 37.82 kg/m Last 4 Encounter Wt Readings: Date: Wt: 12/20/2022 91.4 kg (201 lb 6.4 oz) 12/07/2022 91.6 kg (202 lb) 12/02/2022 92.1 kg (203 lb) 06/23/2022 85.4 kg (188 lb 3.2 oz) PHYSICAL EXAMINATION: General appearance: Well appearing, [...] Musculoskeletal: No joint swelling, deformity, or tenderness ASSESSMENT/PLAN: 1. SVT (supraventricular tachycardia) (HCC) - ICD9: 427.89, ICD10: I47.1 (primary diagnosis) - are stable. 2. Primary hypertension - ICD9: 401.9, ICD10: I10 - add amlodipine. Discussed risks and benefits of new medication with the patient. Advised them to call if any side effects or questions. - AMLODIPINE 5 MG TABLET 3. Subclinical hypothyroidism - ICD9: 244.8, ICD10: E03.8 - stabe, 4. 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 King Ilir Hernández Recheck bp in one month or prn. documented in [facility] encounter[facility]23 Miscellaneous Notes* Telephone Encounter - Elena Brewster RN - 12/20/2022 12:29 PM EDT Patient calling for new script for Insulin pen needles. Pharmacy tells her she needs 31 gauge x 6 mm. She says she is using [employer] brand. [facility]. Elena Brewster RN documented in this encounterWo[facility]05-08-2023 Miscellaneous Notes* Telephone Encounter - Maria Eugenia Ferrari RN - 12/20/2022 10:19 AM EDT Patient returns call and provider message reviewed. Patient will notify endo of high blood sugar readings. Patient scheduled for 6 month follow up on 12/22/2022 and requests to address BP at that visit. Maria Eugenia Ferrari RN * Telephone Encounter - My Fonseca - 12/20/2022 10:09 AM EDT Left message on voicemail to return call to office. My Fonseca * Telephone Encounter - Ilir Hernández MD - 12/20/2022 10:03 AM EDT Her bp is was up at neurology and sugars have been in the 500;s they found. She needs to let her endo know where her sugars are. Can we have her do a bp check in our department soon. Call if any issues. documented in this encounterW[facility]05-02-2023 Miscellaneous Notes* Telephone Encounter - Timbo Del Valle LPN - 12/14/2022 11:16 AM EDT Pt notified. Timbo Del Valle LPN * Telephone Encounter - My Fonseca - 12/13/2022 9:53 AM EDT Placed call to patient with no answer. Left message for her to return call for fecal occult results. Test negative per Dr. Hernández. My Fonseca * Telephone Encounter - Ilir Hernández MD - 12/13/2022 9:14 AM EDT Let her know test was negative. documented in this encounterW[facility]04-26-2023 Miscellaneous Notes* Telephone Encounter - Yunier Cerna Ma - 12/08/2022 8:45 AM EDT Left message on confidential vm Yunier Cerna Ma * Telephone Encounter - Ilir Hernández MD - 12/08/2022 8:15 AM EDT Let her know her labs are ok. documented in this encounterW[facility]04-25-2023 History of Present illness Narrative* Ilir Hernández MD - 12/07/2022 2:18 PM EDT Patient presents with: ER F/U: [facility] for muscle spasms and nausea HPI: Patient presents today for office visit for follow up. She was in the er at [facility] on 12/03. Awoke with muscle cramps and subjective fevers. She had gotten her shingles vaccine. She was nauseated but no vomiting or diarrhea. She thought her bm looked red but blamed it on chili she had eaten. No issues since. That was last week. No current abd pain. She is feeling better. Work up in the er included ekg, chest xray and labs. They felt it was a reaction to the vaccine. Her potassium was minimally low. Overall is good now. MEDICATIONS: Current Outpatient Medications Medication Sig ondansetron orally disintegrating (ZOFRAN ODT) 4 mg disintegrating tablet DISSOLVE 1 TABLET IN MOUTH THREE TIMES DAILY NEEDED FOR NAUSEA AND VOMITING diazePAM (VALIUM) 2 mg tablet TAKE 1 TABLET BY MOUTH THREE TIMES DAILY NEEDED FOR MUSCLE SPASM FOR 5 DAYS oxybutynin ER (DITROPAN XL) 10 mg 24 hr tablet Take 2 tablets by mouth once daily. blood sugar diagnostic (ONETOUCH VERIO TEST STRIPS) test strip Test blood sugar(s) 3-4 times daily.Dx: Other DM Code E11.319 Insulin: Yes metaxalone (SKELAXIN) 800 mg tablet Take 1 tablet by mouth three times daily as needed for pain. htxyyvccbjy-ypgmuyfph-qoknexed (TRELEGY ELLIPTA) 100-62.5-25 mcg inhalation powder Inhale 1 Puff asinstructed once daily. Cholecalciferol, Vitamin D3, 50 mcg (2,000 unit) cap Take 1 capsule by mouth once daily. esomeprazole (NEXIUM) 40 mg capsule Take 1 capsule by mouth twice daily before meals. 1/2 hr beforemeal. HYDROcodone-acetaminophen (NORCO) 5-325 mg per tablet Take 1 tablet by mouth every 6 hours as needed for pain. losartan (COZAAR) 100 mg tablet Take 1 tablet by mouth once daily. insulin lispro-aabc (MELVA COREY U-100 INSULIN) 100 unit/mL insulin pen Inject 22 Units subcutaneously three times daily before meals. Along with sliding scale fluticasone (FLONASE) 50 mcg/actuation nasal spray USE 1 SPRAY IN EACH NOSTRIL ONCE DAILY AT BEDTIME DIRECTED hydroCHLOROthiazide (HYDRODIURIL, ESIDRIX) 12.5 mg capsule Take 1 capsule by mouth once daily. loratadine (CLARITIN) 10 mg tablet Take 1 tablet by mouth once daily. metFORMIN ER (GLUCOPHAGE XR) 500 mg 24 hr tablet Take 4 tablets by mouth daily with breakfast. sucralfate (CARAFATE) 1 gram tablet Take 1 tablet by mouth twice daily before meals. albuterol HFA (PROAIR HFA) 90 mcg/actuation inhaler Inhale 2 Puffs as instructed every 4 hours as needed. PREDNISONE ORAL Take by mouth as needed. blood sugar diagnostic (BLOOD GLUCOSE TEST) test [...] Drops in the left eye twice daily. methotrexate 2.5 mg tablet Take 20 mg by mouth every Tuesday. insulin needles, DISPOSABLE, (PEN NEEDLE) 31 gauge x 5/16 ndle Use one needle per dose. 4 per day. folic acid 1 mg tablet Take 2 tablets by mouth once daily. Dr. Johnson gabapentin (NEURONTIN) 300 mg capsule Take 1 capsule by mouth daily at bedtime for 90 days. escitalopram oxalate (LEXAPRO) 10 mg tablet Take 1 tablet by mouth once daily. cephALEXin (KEFLEX) 500 mg capsule Take 1 capsule by mouth every 6 hours. (Patient not taking: No sig reported) metoprolol succinate ER (TOPROL XL) 100 mg Take 1 tablet by mouth once daily. atorvastatin (LIPITOR) 10 mg tablet Take 1 tablet by mouth daily at bedtime. For cholesterol. insulin degludec (TRESIBA FLEXTOUCH U-100) 100 unit/mL (3 mL) injection pen Inject 66 Units subcutaneously daily at bedtime. (Patient taking differently: Inject 34 Units subcutaneously daily at bedtime.) linaCLOtide (LINZESS) 72 mcg capsule Take 1 capsule by mouth once daily. Administer on an empty stomach. Swallow whole; DO NOT crush or chew. (Patient not taking: No sig reported) zoledronic acid (RECLAST) 5 mg/100 mL pgbk PREMIX piggyback Inject 100 mL intravenously once every 6 months. (Patient not taking: No sig reported) CPAP Autopap 5-20 cm H2O, Heat Humidity, suitable mask, [employer] supplies, opt Chinstrap, G47.33. (Patient not taking: No sig reported) aspirin, enteric coated (ASPIRIN, ENTERIC COATED) 81 mg EC tablet Take 81 mg by mouth once daily. (Patient not taking: No sig reported) No current facility-administered medications for this visit. ALLERGIES: ALLERGIES Allergen Reactions Jesenia Inhibitors Cough Nsaids (Non-Steroid* GI Upset Tape [Adhesive Tape* Other: See Comments Blisters from surgical tape Trulicity [Dulaglut* Other: See Comments Gastroparesis PAST MEDICAL HISTORY Diagnosis Date Allergic rhinitis, cause unspecified Arthritis Asthma mild asthma Breast cancer (HCC) age 34-had lump, cancerous cells. no issues since, left Diverticulosis of colon (without mention of hemorrhage) Heme positive stool 2010 History of cervical cancer regular Paps for life Hyperlipidemia 2010 Inflammatory polyarthritis (HCC) Dr. 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) Sleep apnea Type II or unspecified type diabetes mellitus without mention of complication, not stated as uncontrolled Unspecified essential hypertension PAST SURGICAL HISTORY Procedure Laterality Date ABDOMINAL SURGERY HX hx of feeding tube inserted APPENDECTOMY APPENDECTOMY HX BREAST SURGERY HX COLONOSCOPY FLX DX W/COLLJ SPEC WHEN PFRMD 06/26/2009 COLONOSCOPY FLX DX W/COLLJ SPEC WHEN PFRMD 04/10/2019 Colonoscopy COLONOSCOPY SCREENING 02/11/2022 Dr Olivas EGD 2010 EGD 02/11/2022 Dr Olivas ERCP DX COLLECTION SPECIMEN BRUSHING/WASHING 07/23/2008 Cholangiopancreatography (ERCP) ESOPHAGOGASTRODUODENOSCOPY TRANSORAL DIAGNOSTIC 04/10/2019 EGD EYE SURGERY HX MASTECTOMY Left age 34 Mastectomy - simple MASTECTOMY HX PAST SURGICAL HISTORY OF nose cauterized inside RMVL SEC MEMBRANOUS CTRC CORNEO-SCLL SCTJ Bilateral Cataract removal BILATERAL TOTAL ABDOMINAL HYSTERECT W/WO RMVL TUBE OVARY age 27 Hysterectomy, MARQUES cervical cancer, has one ovary left VAGINAL HYSTERECTOMY FAMILY HISTORY Problem Relation Age of Onset None Mother None Father Stroke Sister Cancer Sister COPD Sister Breast Cancer Maternal Aunt Social History Tobacco Use Smoking status: Former Packs/day: 0.75 Years: 30.00 Pack years: 22.50 Types: Cigarettes Quit date: 08/15/2000 Years since quittin.3 Smokeless tobacco: Never Vaping Use Vaping Use: Never used Substance Use Topics Alcohol use: Never Comment: rarely Drug use: No Reviewed current medications, allergies, past medical history, surgical history, family history andsocial history today. REVIEW OF SYSTEMS All other reviewed and negative other than HPI. VITALS: BP 130/78 Pulse 90 Resp 16 Wt 91.6 kg (202 lb) SpO2 94% BMI 36.95 kg/m Last 4 Encounter Wt Readings: Date: Wt: 12/07/2022 91.6 kg (202 lb) 12/02/2022 92.1 kg (203 lb) 06/23/2022 85.4 kg (188 lb 3.2 oz) 05/13/2022 87.5 kg (193 lb) PHYSICAL EXAMINATION: General appearance: Well appearing, alert, in no acute distress, well-hydrated, well nourished. Skin: Skin color, texture, turgor normal, no suspicious rashes or lesions Head: Normocephalic, no masses, lesions, tenderness or abnormalities Eyes: Anicteric sclera. Pupils are equally round and reactive to light. Extraocular movements are intact. Lungs: Lungs clear to auscultation. No wheezing, rhonchi, rales Heart: RRR without murmur, gallop, or rubs. No ectopy Abdomen: Normal abdominal exam, Abdomen soft, non-tender. Bowel sounds normal. No masses, organomegaly Extremities: No deformities, edema, skin discoloration, clubbing or cyanosis. Good capillary refill. ASSESSMENT/PLAN: 1. Myalgias - ICD9: 729.1, ICD10: M79.10 (primary diagnosis) - suspect was a benign shot reaction. Call if recurs. 2. Stage 3 chronic kidney disease, unspecified whether stage 3a or 3b CKD (HCC) - ICD9: 585.3, ICD10: N18.30 - eGFR: Stable 3. Inflammatory polyarthritis (HCC) - ICD9: 714.9, ICD10: M06.4 - stable. 4. SVT (supraventricular tachycardia) (HCC) - ICD9: 427.89, ICD10: I47.1 - stable. 5. 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 6. Red stool - ICD9: 792.1, ICD10: R19.5 - has been fine since. Check labs. Call if recurs. - FECAL OCCULT BLOOD TEST - CBC + DIFF 7. Hypokalemia - ICD9: 276.8, ICD10: E87.6 - recheck labs. 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 I believe your symptoms of nausea and muscle aches are related to adverse reactions from your recent shingles injection. These symptoms should resolve on their own in the next 1 to 3 days. Take the prescribed medication as directed to help control symptoms and return to the ER should you have any further concernWEast [facility] Work Phone: 1(310) 128-283004-21-2023 Miscellaneous Notes* Telephone Encounter - Yunier Cerna Ma - 12/03/2022 9:15 AM EDT Patient was notified Yunier Cerna Ma * Telephone Encounter - Ilir Hernández MD - 12/03/2022 9:02 AM EDT Let her know labs are stable. documented in this encounterW[facility]03-23-2023 History of Present illness Narrative* Katelin Wynn MA - 11/04/2022 8:14 AM EDT POPULATION HEALTH NAVIGATION OUTREACH Action/FYI LVM no mychart ANNUAL MEDICARE WELLNESS BP CONTROLLED (<130/80) Never done URINE ALBUMIN:CREATININE RATIO due on 09/08/2022 DILATED RETINAL EXAM due on 10/19/2022 MYCHART ACTIVATION Patient Identified by Name and : NO Outreach Outcome/Action Unable to reach patient: Left message Did you use a PCP flex slot to schedule this appointment? 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 / Plan: [employer] HMO / Product Type: HMO / Care Gap Reviewed:: Annual Wellness visit Controlling Blood Pressure Diabetic Eye Exam Nephropathy (Albumin/Creatinine) Urine Reminder: Reminder note to check Health Maintenance for items below Health Maintenance items due: BP CONTROLLED (<130/80) Never done SHINGRIX VACCINE(1 of 2) Never done COVID-19 VACCINE(4 - Booster for Moderna series) due on 08/20/2021 DIABETIC FOOT EXAM due on 03/06/2022 ADVANCE DIRECTIVE DISCUSSION due on 08/15/2022 DEPRESSION ASSESSMENT due on 08/15/2022 URINE ALBUMIN:CREATININE RATIO due on 09/08/2022 LDL CHOLESTEROL due on 09/23/2022 DILATED RETINAL EXAM due on 10/19/2022 Navigation Signature: Katelin Wynn MA November 04, 2022 8:14 AM documented in this encounterW[facility]03-20-2023 Miscellaneous Notes* Telephone Encounter - Cherelle Marlow LPN - 11/01/2022 10:50 AM EDT Refill sent to pharmacy and pt to check with pharmacy later. Cherelle Marlow LPN * Telephone Encounter - Cherelle Marlow LPN - 10/29/2022 3:10 PM EDT Please see pt's refill request. Pt's last yearly was 09/14/21. Please advise. Cherelle Marlow LPN documented in this encounterWo[facility]02-21-2023 Miscellaneous Notes* Letter - Mammography Coordinator - 10/05/2022 8:50 AM EST October 06, 2022 PID: [id number] Manisha Keith [facility] [place] [address] Dear Ms. Keith, We are pleased to inform you that the results of your recent breast imaging exam on 10/04/2022 are normal. Your mammogram demonstrates that you have dense breast tissue, which could hide abnormalities. Dense breast tissue, in and of itself, is a relatively common condition. Therefore, this information is not provided to cause undue concern; rather, it is to raise your awareness and promote discussion with your health care provider regarding the presence of dense breast tissue in addition to other riskfactors. Early detection of cancer is very important. We also understand recommendations regarding breast cancer screening are controversial. Please discuss with your primary care provider which strategy is best for you and whether a mammogram is right for you. Your imaging studies and report will be [facility] as part of your permanent medical record and are available for your continuing care. Thank you for allowing us to help in meeting your health care needs. Sincerely, Dr. Moran Interpreting Radiologist [facility] (Normal over 40) documented in this encounterWooster [facility] Hospital02-20-2023 History of Present illness Narrative* Wes Henderson Mammo Tech - 10/04/2022 12:30 PM EST Radiology Service Progress Note PATIENT NAME: Manisha Keith DATE OF SERVICE: October 04, 2022 TIME: 12:39 PM PATIENT IDENTITY VERIFICATION COMPLETED USING TWO (2) IDENTIFIERS: Name and Date of confirmedby patient verbally. FALL SCREENING: Has the patient had 2 falls in the last year or 1 fall with injury or currently using an Ambulatory Assistive Device (Walker, Cane, Wheelchair, Crutches, etc.)? No PATIENT GENDER DATA: Female. status: : No status: NO. PATIENT RELEVANT IMPLANT DATA REVIEWED: Not Applicable RADIOLOGY DEPARTMENT: Mammography PERIPHERAL IV DATA: Not applicable SIGNED BY: Svetlana Ramos October 04, 2022 12:39 PM documented in this encounterW[facility]02-13-2023 History of Present illness Narrative* Cherelle Hernández RT(R) - 09/27/2022 1:00 PM EST Radiology Service Progress Note PATIENT NAME: Manisha Keith DATE OF SERVICE: September 27, 2022 TIME: 3:51 PM PATIENT IDENTITY VERIFICATION COMPLETED USING TWO (2) IDENTIFIERS: Name and Date of confirmedby patient verbally. FALL SCREENING: Has the patient had 2 falls in the last year or 1 fall with injury or currently using an Ambulatory Assistive Device (Walker, Cane, Wheelchair, Crutches, etc.)? No PATIENT GENDER DATA: Female. status: : No status: NO. PATIENT RELEVANT IMPLANT DATA REVIEWED: Yes RADIOLOGY DEPARTMENT: CT; Exam(s) Completed: Chest PERIPHERAL IV DATA: Not applicable SIGNED BY: RT Kaleigh(R) September 27, 2022 3:51 PM documented in this encounterWooster [facility] Hospital12-23-2022 Miscellaneous Notes* Telephone Encounter - Macarena Coles LPN - 08/06/2022 3:43 PM EST Patient states she is out of test strips. documented in this encounterWooster [facility] Hospital12-22-2022 Miscellaneous Notes* Telephone Encounter - Areli Salas LPN - 08/05/2022 2:12 PM EST Left detailed message for patient on voicemail. * Telephone Encounter - Ilir Hernández MD - 08/05/2022 1:49 PM EST Vit d is improving. But is done too early. Needs at least six to eight weeks to follow. Check labs in six weeks. documented in this encounterWooster [facility] Hospital12-09-2022 Miscellaneous Notes* Telephone Encounter - Kerry Spivey Ma - 07/23/2022 2:48 PM EST Last filled on 07/15/22 * Telephone Encounter - Allison Dasilva - 07/23/2022 1:42 PM EST Patient has been identified by name and date of : Yes Last office visit in this department: 06/23/2022 RX INSTRUCTIONS: Patient aware RX will be sent to pharmacy. No need to notify patient. Patient phones requesting refills as follows: Requested Prescriptions Pending Prescriptions Disp Refills metaxalone (SKELAXIN) 800 mg tablet 30 tablet 0 Sig: Take 1 tablet by mouth three times daily as needed for pain. Please review and advise. Allison Canales Pss documented in this encounterWooster [facility] Hospital12-06-2022 Miscellaneous Notes* Telephone Encounter - Sunita Rose LPN - 07/20/2022 9:37 AM EST Pt notified of dr's message. Pt voiced understanding. Sunita Rose LPN * Telephone Encounter - Ilir Hernández MD - 07/19/2022 4:40 PM EST We have to correct her vit d deficiency before we start. Check vit d in six weeks * Telephone Encounter - Juan Ybarra RN - 07/19/2022 4:06 PM EST Pt called and is notified of providers results and instructions. Pt voices understanding. She states Dr Chi put her on Vit D3 2000 international unit(s) or 50 mcg daily. Pt asked about if she was supposed to be going over to the specialty center to get injections for her bones. She state she hasn't hade one in quite some time, but couldn't remember the name of the medication. Juan Ybarra RN * Telephone Encounter - Ilir Hernández MD - 07/19/2022 1:46 PM EST Her vit d is low. Verify if taking any vit d at home and if so how much. Will need to start some and recheck levels in six week if not. Sugars are very high. Send copy of labs to Dr Chi, her endo documented in this encounterWo[facility]12-05-2022 Miscellaneous Notes* Telephone Encounter - Niurka Dasilva - 07/19/2022 1:32 PM EST Patient has been identified by name and date of : Yes Requested Prescriptions Pending Prescriptions Disp Refills qfucjphooii-qmhasvyfg-wqkjxbpz (TRELEGY ELLIPTA) 100-62.5-25 mcg inhalation powder 1 Each 2 Sig: Inhale 1 Puff as instructed once daily. RX INSTRUCTIONS: Patient aware RX will be sent to pharmacy. No need to notify patient. Niurka Dasilva documented in this encounterWooster [facility] Hospital12-01-2022 Miscellaneous Notes* Telephone Encounter - Yunier Cerna Ma - 07/15/2022 11:16 AM EST Patient last visit with PCP 06/23/22 Follow up appointment scheduled 12/22/22 Yunier Cerna Ma * Telephone Encounter - Meron Mckenna - 07/15/2022 10:47 AM EST Patient has been identified by name and date of : Yes Patient phones for refill(s): Requested Prescriptions Pending Prescriptions Disp Refills gabapentin (NEURONTIN) 300 mg capsule 30 capsule 2 Sig: Take 1 capsule by mouth daily at bedtime for 90 days. escitalopram oxalate (LEXAPRO) 10 mg tablet 90 tablet 1 Sig: Take 1 tablet by mouth once daily. metaxalone (SKELAXIN) 800 mg tablet 30 tablet 0 Sig: Take 1 tablet by mouth three times daily as needed for pain. Date of last office visit in primary care: 06/23/22 Last 2 Encounter Wt Readings: Date: Wt: 06/23/2022 85.4 kg (188 lb 3.2 oz) 05/13/2022 87.5 kg (193 lb) Previous labs/tests for medication: Not applicable Please advise. Thank you. Meron Mckenna documented in this encounterWooster [facility] Hospital11-09-2022 Instructions* Patient Instructions* Ilir Hernández MD - 06/23/2022 9:[address] Alex mancilla on [place] documented in this encounterWooster [facility] Hospital11-09-2022 History of Present illness Narrative* Ilir Hernández MD - 06/23/2022 8:25 AM EST Patient presents with: 6 Month Exam HPI: Patient presents today for office visit for follow up. Concerns with muscle cramps/spasms. Cellulitis better. Completed abx. GERD: some heartburn symptoms. Tolerating Esomeprazole 40 mg daily. Usually has to increase dose to2 tablets. HYPERLIPIDEMIA: Tolerating Atorvastatin. Denies myalgias. OSTEOPOROSIS: Had 1 injection of Reclast. Never set up for future injections. RICARDO: Does not use CPAP. Refers to CPAP blowing too hard and causes chest infections. Aware of risks. Suggested she see sleep med Started using Trelegy. Not sleeping very well. States either can't sleep or sleeps too much. HTN: Some edema in both legs. Refers to feeling tight Does not check BP at home. No chest pain No shortness of breath Worse at the end of the day. Discussed support hose. Still seeing endo. Last a1c was over 11. Seeing cardiology Seeing cardiology. Getting labs from endo and rheum. Due for lung ct in 10/07 MEDICATIONS: Current Outpatient Medications Medication Sig esomeprazole (NEXIUM) 40 mg capsule Take 1 capsule by mouth twice daily before meals. 1/2 hr beforemeal. cephALEXin (KEFLEX) 500 mg capsule Take 1 capsule by mouth every 6 hours. HYDROcodone-acetaminophen (NORCO) 5-325 mg per tablet Take 1 tablet by mouth every 6 hours as needed for pain. losartan (COZAAR) 100 mg tablet Take 1 tablet by mouth once daily. insulin lispro-aabc (LYUMJEV KWIKPEN U-100 INSULIN) 100 unit/mL insulin pen Inject 22 Units subcutaneously three times daily before meals. Along with sliding scale fluticasone (FLONASE) 50 mcg/actuation nasal spray USE 1 SPRAY IN EACH NOSTRIL ONCE DAILY AT BEDTIME DIRECTED hydroCHLOROthiazide (HYDRODIURIL, ESIDRIX) 12.5 mg capsule Take 1 capsule by mouth once daily. metaxalone (SKELAXIN) 800 mg tablet Take 1 tablet by mouth three times daily as needed for pain. metoprolol succinate ER (TOPROL XL) 100 mg Take 1 tablet by mouth once daily. oxybutynin ER (DITROPAN XL) 10 mg 24 hr tablet Take 1 tablet by mouth once daily. (Patient taking differently: Take 20 mg by mouth once daily.) atorvastatin (LIPITOR) 10 mg tablet Take 1 tablet by mouth daily at bedtime. For cholesterol. gabapentin (NEURONTIN) 300 mg capsule Take 1 capsule by mouth daily at bedtime for 90 days. loratadine (CLARITIN) 10 mg tablet Take 1 tablet by mouth once daily. insulin degludec (TRESIBA FLEXTOUCH U-100) 100 unit/mL (3 mL) injection pen Inject 66 Units subcutaneously daily at bedtime. (Patient taking differently: Inject 55 Units subcutaneously daily at bedtime.) linaCLOtide (LINZESS) 72 mcg capsule Take 1 capsule by mouth once daily. Administer on an empty stomach. Swallow whole; DO NOT crush or chew. eceqzumrqsg-ztleslsuu-nqqudzys (TRELEGY ELLIPTA) 100-62.5-25 mcg Inhale 1 Puff as instructed once daily. metFORMIN ER (GLUCOPHAGE XR) 500 mg 24 hr tablet Take 4 tablets by mouth daily with breakfast. escitalopram oxalate (LEXAPRO) 10 mg tablet Take 1 tablet by mouth once daily. zoledronic acid (RECLAST) 5 mg/100 mL pgbk PREMIX piggyback Inject 100 mL intravenously once every 6 months. sucralfate (CARAFATE) 1 gram tablet Take 1 tablet by mouth twice daily before meals. CPAP Autopap 5-20 cm H2O, Heat Humidity, suitable mask, [employer] supplies, opt Chinstrap, G47.33. albuterol HFA (PROAIR HFA) 90 mcg/actuation inhaler Inhale 2 Puffs as instructed every 4 hours as needed. PREDNISONE ORAL Take by mouth as needed. blood sugar diagnostic (BLOOD GLUCOSE TEST) test [...] tablets by mouth once daily. Dr. Johnson No current facility-administered medications for this visit. ALLERGIES: ALLERGIES Allergen Reactions Jesenia Inhibitors Cough Nsaids (Non-Steroid* GI Upset Tape [Adhesive Tape* Other: See Comments Blisters from surgical tape Trulicity [Dulaglut* Other: See Comments Gastroparesis PAST MEDICAL HISTORY Diagnosis Date Allergic rhinitis, cause unspecified Arthritis Asthma mild asthma Breast cancer (HCC) age 34-had lump, cancerous cells. no issues since, left Diverticulosis of colon (without mention of hemorrhage) Heme positive stool 2010 History of cervical cancer regular Paps for life Hyperlipidemia 2011 Inflammatory polyarthritis (HCC) Dr. 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) Sleep apnea Type II or unspecified type diabetes mellitus without mention of complication, not stated as uncontrolled Unspecified essential hypertension PAST SURGICAL HISTORY Procedure Laterality Date ABDOMINAL SURGERY HX hx of feeding tube inserted APPENDECTOMY APPENDECTOMY HX BREAST SURGERY HX COLONOSCOPY FLX DX W/COLLJ SPEC WHEN PFRMD 06/26/2009 COLONOSCOPY FLX DX W/COLLJ SPEC WHEN PFRMD 04/10/2019 Colonoscopy COLONOSCOPY SCREENING 02/11/2022 Dr Olivas EGD 2010 EGD 02/11/2022 Dr Olivas ERCP DX COLLECTION SPECIMEN BRUSHING/WASHING 07/23/2008 Cholangiopancreatography (ERCP) ESOPHAGOGASTRODUODENOSCOPY TRANSORAL DIAGNOSTIC 04/10/2019 EGD EYE SURGERY HX MASTECTOMY Left age 34 Mastectomy - simple MASTECTOMY HX PAST SURGICAL HISTORY OF nose cauterized inside [facility] CORNEO-SCLL SCTJ Bilateral Cataract removal BILATERAL TOTAL ABDOMINAL HYSTERECT W/WO RMVL TUBE OVARY age 27 Hysterectomy, MARQUES cervical cancer, has one ovary left VAGINAL HYSTERECTOMY FAMILY HISTORY Problem Relation Age of Onset None Mother None Father Stroke Sister Cancer Sister COPD Sister Breast Cancer Maternal Aunt Social History Tobacco Use Smoking status: Former Packs/day: 0.75 Years: 30.00 Pack years: 22.50 Types: Cigarettes Quit date: 08/15/2000 Years since quittin.8 Smokeless tobacco: Never Vaping Use Vaping Use: Never used Substance Use Topics Alcohol use: Never Comment: rarely Drug use: No Reviewed current medications, allergies, past medical history, surgical history, family history andsocial history today. REVIEW OF SYSTEMS All other reviewed and negative other than HPI. HEALTH MAINTENANCE: Reviewed health maintenance issues today and recommended the following in detail. MAMMOGRAM due on 06/09/2022 VITALS: BP 140/84 Pulse 82 Ht 157.5 cm (5' 2) Wt 85.4 kg (188 lb 3.2 oz) SpO2 96% BMI 34.42 kg/m Last 4 Encounter Wt Readings: Date: Wt: 05/13/2022 87.5 kg (193 lb) 05/06/2022 84.9 kg (187 lb 3.2 oz) 05/03/2022 83.9 kg (185 lb) 05/01/2022 85.3 kg (188 lb) PHYSICAL EXAMINATION: General appearance: Well appearing, [...] and symmetric. Sensation grossly intact. ASSESSMENT/PLAN: 1. RICARDO (obstructive sleep apnea) - ICD9: 327.23, ICD10: G47.33 (primary diagnosis) - see sleep med - CONSULT TO SLEEP MEDICINE - ADULT 2. Chronic insomnia - ICD9: 780.52, ICD10: F51.04 - no changes. - CONSULT TO SLEEP MEDICINE - ADULT 3. Primary hypertension - ICD9: 401.9, ICD10: I10 - fair control - Continue current medication(s) - Goal of BP <130/80 - LIPID PANEL BASIC 4. SVT (supraventricular tachycardia) (HCC) - ICD9: 427.89, ICD10: I47.1 - per cardi 5. 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 Last a1c was very high - BASIC METABOLIC PNL - HGB A1C 6. Subclinical hypothyroidism - ICD9: 244.8, ICD10: E03.8 Check labs. - TSH BLD 7. History of breast cancer - ICD9: V10.3, ICD10: Z85.3 - reminded to keep up with breast cancer. 8. Inflammatory polyarthritis (HCC) - ICD9: 714.9, ICD10: M06.4 - CBC + DIFF 9. Screening breast examination - ICD9: V76.10, ICD10: Z12.39 - Follow up for annual exam in one year. - JACQUELYN SCREENING W CHANELLE 10. Encounter for screening mammogram for malignant neoplasm of breast - ICD9: V76.12, ICD10: Z12.31 - Follow up for annual exam in one year. - JACQUELYN SCREENING W CHANELLE Ilir Hernández MD Labs in six weeks. Rto in six months documented in [facility] History of Present illness Narrative* Jordi Wood - 06/02/2022 11:39 AM EDT POPULATION HEALTH NAVIGATION OUTREACH Action/FYI Patient declined LELA consult. Pt identified by name and : YES, via phone Outreach Outcome/Action Spoke to patient or caregiver: Patient declined Did you use a PCP flex slot to schedule this appointment? Reason for Outreach Care Gap or Scheduling/Wellness visits Payer: Payor: MMO / Plan: MMO SUPER[employer] PLUS / Product Type: PPO / Care Gap Reviewed:: LELA Reminder: Reminder note to check Health Maintenance for items below Health Maintenance items due: BP CONTROLLED (<130/80) Never done SHINGRIX VACCINE(1 of 2) Never done DEPRESSION ASSESSMENT Never done COVID-19 VACCINE(4 - Booster for Moderna series) due on 08/20/2021 DIABETIC FOOT EXAM due on 03/06/2022 HBA1C due on 03/11/2022 INFLUENZA(1) due on 04/15/2022 MAMMOGRAM due on 06/09/2022 Message Sent to Practice: No Navigation Signature: Jordi Wood June 02, 2022 11:40 AM documented in this encounterW[facility]10-14-2022 Miscellaneous Notes* Telephone Encounter - Allison Canales Pss - 05/28/2022 11:29 AM EDT Patient has been identified by name and date of : Yes Last office visit in this department: 05/13/2022 RX INSTRUCTIONS: Patient aware RX will be sent to pharmacy. No need to notify patient. Patient phones requesting refills as follows: Requested Prescriptions Pending Prescriptions Disp Refills esomeprazole (NEXIUM) 40 mg capsule 180 capsule 3 Sig: Take 1 capsule by mouth twice daily before meals. 1/2 hr before meal. Please review and advise. Allison Canales Pss documented in this encounterW[facility]09-[facility]22 History of Present illness Narrative* Ilir Hernández MD - 05/06/2022 10:12 AM EDT Patient presents with: Cellulitis: Follow up HPI: Patient presents today for office visit for follow up of Cellulitis of left elbow. Still warm to touch off and on. Low grade fever. Still on Keflex. Much less redness. Feels much better. Normal range of motion. Pain is markedly improved. I am able to review the ER notes but culture is unavailable. ER did note her sed rate and crp were up but I cannot see the results. Still following with endo. Has appt to see Dr. Smith for same. See Jd Mccabe's note from 05/03: Patient here for [facility] follow up. Went to [facility] on 05/01/2022 for complaints of left arm pain. Location is mainly the elbow. No known injury or trauma. Then went to the ER on 05/02/2022 for this pain. Was diagnosed with left upper arm cellulitis. Site was aspirated in the joint space. No crystals or bacteria on gram stain found. Very few white blood cells. ER provider did not believe with septic joint. X-ray of the left elbow was normal. Prescribed Keflex 500 mg. Given Kershaw for pain. Patient did not go curing pickling packer the antibiotic or pain medication until right before this appointment. Has not taken either medication yet. Overall does not feel good. Afebrile. Left arm hurtsinto the bicep. MEDICATIONS: Current Outpatient Medications Medication Sig cephALEXin (KEFLEX) 500 mg capsule Take 1 capsule by mouth every 6 hours. HYDROcodone-acetaminophen (NORCO) 5-325 mg per tablet Take 1 tablet by mouth every 6 hours as needed for pain. losartan (COZAAR) 100 mg tablet Take 1 tablet by mouth once daily. insulin lispro-aabc (LYUMJEV KWIKPEN U-100 INSULIN) 100 unit/mL insulin pen Inject 22 Units subcutaneously three times daily before meals. Along with sliding scale fluticasone (FLONASE) 50 mcg/actuation nasal spray USE 1 SPRAY IN EACH NOSTRIL ONCE DAILY AT BEDTIME DIRECTED hydroCHLOROthiazide (HYDRODIURIL, ESIDRIX) 12.5 mg capsule Take 1 capsule by mouth once daily. metaxalone (SKELAXIN) 800 mg tablet Take 1 tablet by mouth three times daily as needed for pain. metoprolol succinate ER (TOPROL XL) 100 mg Take 1 tablet by mouth once daily. oxybutynin ER (DITROPAN XL) 10 mg 24 hr tablet Take 1 tablet by mouth once daily. (Patient taking differently: Take 20 mg by mouth once daily.) atorvastatin (LIPITOR) 10 mg tablet Take 1 tablet by mouth daily at bedtime. For cholesterol. gabapentin (NEURONTIN) 300 mg capsule Take 1 capsule by mouth daily at bedtime for 90 days. loratadine (CLARITIN) 10 mg tablet Take 1 tablet by mouth once daily. insulin degludec (TRESIBA FLEXTOUCH U-100) 100 unit/mL (3 mL) injection pen Inject 66 Units subcutaneously daily at bedtime. (Patient taking differently: Inject 55 Units subcutaneously daily at bedtime.) linaCLOtide (LINZESS) 72 mcg capsule Take 1 capsule by mouth once daily. Administer on an empty stomach. Swallow whole; DO NOT crush or chew. vvfgjeijkzz-rssjhjgdc-ziurtpvu (TRELEGY ELLIPTA) 100-62.5-25 mcg Inhale 1 Puff as instructed once daily. metFORMIN ER (GLUCOPHAGE XR) 500 mg 24 hr tablet Take 4 tablets by mouth daily with breakfast. esomeprazole (NEXIUM) 40 mg capsule Take 1 capsule by mouth twice daily before meals. 1/2 hr beforemeal. escitalopram oxalate (LEXAPRO) 10 mg tablet Take 1 tablet by mouth once daily. zoledronic acid (RECLAST) 5 mg/100 mL pgbk PREMIX piggyback Inject 100 mL intravenously once every 6 months. sucralfate (CARAFATE) 1 gram tablet Take 1 tablet by mouth twice daily before meals. CPAP Autopap 5-20 cm H2O, Heat Humidity, suitable mask, [employer] supplies, opt Chinstrap, G47.33. albuterol HFA (PROAIR HFA) 90 mcg/actuation inhaler Inhale 2 Puffs as instructed every 4 hours as needed. PREDNISONE ORAL Take by mouth as needed. blood sugar diagnostic (BLOOD GLUCOSE TEST) test [...] tablets by mouth once daily. Dr. Johnson No current facility-administered medications for this visit. ALLERGIES: ALLERGIES Allergen Reactions Jesenia Inhibitors Cough Nsaids (Non-Steroid* GI Upset Tape [Adhesive Tape* Other: See Comments Blisters from surgical tape Trulicity [Dulaglut* Other: See Comments Gastroparesis PAST MEDICAL HISTORY Diagnosis Date Allergic rhinitis, cause unspecified Arthritis Asthma mild asthma Breast cancer (HCC) age 34-had lump, cancerous cells. no issues since, left Diverticulosis of colon (without mention of hemorrhage) Heme positive stool 2010 History of cervical cancer regular Paps for life Hyperlipidemia 2010 Inflammatory polyarthritis (HCC) Dr. 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) Sleep apnea Type II or unspecified type diabetes mellitus without mention of complication, not stated as uncontrolled Unspecified essential hypertension PAST SURGICAL HISTORY Procedure Laterality Date ABDOMINAL SURGERY HX hx of feeding tube inserted APPENDECTOMY APPENDECTOMY HX BREAST SURGERY HX COLONOSCOPY FLX DX W/COLLJ SPEC WHEN PFRMD 06/26/2009 COLONOSCOPY FLX DX W/COLLJ SPEC WHEN PFRMD 04/10/2019 Colonoscopy COLONOSCOPY SCREENING 02/11/2022 Dr Olivas EGD 2010 EGD 02/11/2022 Dr Olivas ERCP DX COLLECTION SPECIMEN BRUSHING/WASHING 07/23/2008 Cholangiopancreatography (ERCP) ESOPHAGOGASTRODUODENOSCOPY TRANSORAL DIAGNOSTIC 04/10/2019 EGD EYE SURGERY HX MASTECTOMY Left age 34 Mastectomy - simple MASTECTOMY HX PAST SURGICAL HISTORY OF nose cauterized inside [facility] CORNEO-SCLL SCTJ Bilateral Cataract removal BILATERAL TOTAL ABDOMINAL HYSTERECT W/WO RMVL TUBE OVARY age 27 Hysterectomy, MARQUES cervical cancer, has one ovary left VAGINAL HYSTERECTOMY FAMILY HISTORY Problem Relation Age of Onset None Mother None Father Stroke Sister Cancer Sister COPD Sister Breast Cancer Maternal Aunt Social History Tobacco Use Smoking status: Former Packs/day: 0.75 Years: 30.00 Pack years: 22.50 Types: Cigarettes Quit date: 08/15/2000 Years since quittin.7 Smokeless tobacco: Never Vaping Use Vaping Use: Never used Substance Use Topics Alcohol use: Never Comment: rarely Drug use: No Reviewed current medications, allergies, past medical history, surgical history, family history andsocial history today. REVIEW OF SYSTEMS All other reviewed and negative other than HPI. VITALS: BP 150/70 Pulse 70 Temp 36.7 C (98 F) Ht 157.5 cm (5' 2) Wt 84.9 kg (187 lb 3.2 oz) [id number]% BMI 34.24 kg/m Last 4 Encounter Wt Readings: Date: Wt: 05/06/2022 84.9 kg (187 lb 3.2 oz) 05/03/2022 83.9 kg (185 lb) 05/01/2022 85.3 kg (188 lb) 04/06/2022 90.3 kg (199 lb) PHYSICAL EXAMINATION: General appearance: Well appearing, alert, in no acute distress, well-hydrated, well nourished. Extremities:normal range of motion of elbow. No significant edema. No redness or warmth. Normal pps ASSESSMENT/PLAN: 1. Cellulitis of skin - ICD9: 682.9, ICD10: L03.90 (primary diagnosis) - finish antibiotics. Red flags for re-assessment reviewed with patient in detail. - get culture results. Call if worsens at all. Recheck in one week. 2. Elevated sed rate - ICD9: 790.1, ICD10: R70.0 - cannot see the actual values but mentioned are up. Will double check labs next week. - SED RATE WESTERGREN - C-REACTIVE PROTEIN (CRP) - OLLIE BY IFA SCREEN - URIC ACID BLOOD 3. Elevated C-reactive protein (CRP) - ICD9: 790.95, ICD10: R79.82 - SED RATE WESTERGREN - C-REACTIVE PROTEIN (CRP) - OLLIE BY IFA SCREEN - RHEUMATOID FACTOR BL - URIC ACID BLOOD 4. Left elbow pain - ICD9: 719.42, ICD10: M25.522 - SED RATE WESTERGREN - C-REACTIVE PROTEIN (CRP) - OLLIE BY IFA SCREEN - RHEUMATOID FACTOR BL - URIC ACID BLOOD 5. 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 Ilir Hernández MD documented in this encounterW[facility]09-19-[facility]22 History of Present illness Narrative* Kerry Spivey Ma - 05/03/2022 2:33 PM EDT Jd consulted with Dr. Hernández. Would like for pt to see Ortho. Detailed message left for pt. Kerry Spivey Ma documented in this encounterW[facility]09-19-2022 Instructions* Patient Instructions* Jd Mccabe APRN.CNP - 05/03/2022 1:47 PM EDT Start antibiotic Start using pain medication Rest and drink plenty of fluids Follow up in 3 days. Go to the ER for worsening symptoms of pain or fever. Jd Mccabe APRN.CNP documented in this encounterW[facility]09-19-2022 History of Present illness Narrative* Jd Mccabe APRN.CNP - 05/03/2022 1:40 PM EDT Chief Complaint Patient presents with: ED Follow-up: [facility] 05/02/22 Cellulitis left upper extremity HPI Manisha Keith is a 71 year old female who presents here today for Above Complaints.. Patient here for express care follow up. Went to [facility] on 05/01/2022 for complaints of left arm pain. Location is mainly the elbow. No known injury or trauma. Then went to the ER on 05/02/2022 for this pain. Was diagnosed with left upper arm cellulitis. Site was aspirated in the joint space. No crystals or bacteria on gram stain found. Very few white blood cells. ER provider did not believe with septic joint. X-ray of the left elbow was normal. Prescribed Keflex 500 mg. Given Kershaw for pain. Patient did not go curing pickling packer the antibiotic or pain medication until right before this appointment. Has not taken either medication yet. Overall does not feel good. Afebrile. Left arm hurtsinto the bicep. Past medical history, appointments, medications, allergies reviewed. Previous Medical History PAST MEDICAL HISTORY Diagnosis Date Allergic rhinitis, cause unspecified Arthritis Asthma mild asthma Breast cancer (HCC) age 34-had lump, cancerous cells. no issues since, left Diverticulosis of colon (without mention of hemorrhage) Heme positive stool 2010 History of cervical cancer regular Paps for life Hyperlipidemia 2010 Inflammatory polyarthritis (HCC) Dr. 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) Sleep apnea Type II or unspecified type diabetes mellitus without mention of complication, not stated as uncontrolled Unspecified essential hypertension Previous Surgical History PAST SURGICAL HISTORY Procedure Laterality Date ABDOMINAL SURGERY HX hx of feeding tube inserted APPENDECTOMY APPENDECTOMY HX BREAST SURGERY HX COLONOSCOPY FLX DX W/COLLJ SPEC WHEN PFRMD 06/26/2009 COLONOSCOPY FLX DX W/COLLJ SPEC WHEN PFRMD 04/10/2019 Colonoscopy COLONOSCOPY SCREENING 02/11/2022 Dr Olivas EGD 2010 EGD 02/11/2022 Dr Olivas ERCP DX COLLECTION SPECIMEN BRUSHING/WASHING 07/23/2008 Cholangiopancreatography (ERCP) ESOPHAGOGASTRODUODENOSCOPY TRANSORAL DIAGNOSTIC 04/10/2019 EGD EYE SURGERY HX MASTECTOMY Left age 34 Mastectomy - simple MASTECTOMY HX PAST SURGICAL HISTORY OF nose cauterized inside [facility] CORNEO-SCLL SCTJ Bilateral Cataract removal BILATERAL TOTAL ABDOMINAL HYSTERECT W/WO RMVL TUBE OVARY age 27 Hysterectomy, MARQUES cervical cancer, has one ovary left VAGINAL HYSTERECTOMY Family History FAMILY HISTORY Problem Relation Age of Onset None Mother None Father Stroke Sister Cancer Sister COPD Sister Breast Cancer Maternal Aunt Patient Allergies ALLERGIES Allergen Reactions Jesenia Inhibitors Cough Nsaids (Non-Steroid* GI Upset Tape [Adhesive Tape* Other: See Comments Blisters from surgical tape Trulicity [Dulaglut* Other: See Comments Gastroparesis Current Medications Current Outpatient Medications on File Prior to Visit Medication Sig losartan (COZAAR) 100 mg tablet Take 1 tablet by mouth once daily. insulin lispro-aabc (LYUMJEV KWIKPEN U-100 INSULIN) 100 unit/mL insulin pen Inject 22 Units subcutaneously three times daily before meals. Along with sliding scale fluticasone (FLONASE) 50 mcg/actuation nasal spray USE 1 SPRAY IN EACH NOSTRIL ONCE DAILY AT BEDTIME DIRECTED hydroCHLOROthiazide (HYDRODIURIL, ESIDRIX) 12.5 mg capsule Take 1 capsule by mouth once daily. metaxalone (SKELAXIN) 800 mg tablet Take 1 tablet by mouth three times daily as needed for pain. metoprolol succinate ER (TOPROL XL) 100 mg Take 1 tablet by mouth once daily. oxybutynin ER (DITROPAN XL) 10 mg 24 hr tablet Take 1 tablet by mouth once daily. atorvastatin (LIPITOR) 10 mg tablet Take 1 tablet by mouth daily at bedtime. For cholesterol. gabapentin (NEURONTIN) 300 mg capsule Take 1 capsule by mouth daily at bedtime for 90 days. loratadine (CLARITIN) 10 mg tablet Take 1 tablet by mouth once daily. insulin degludec (TRESIBA FLEXTOUCH U-100) 100 unit/mL (3 mL) injection pen Inject 66 Units subcutaneously daily at bedtime. (Patient taking differently: Inject 55 Units subcutaneously daily at bedtime.) linaCLOtide (LINZESS) 72 mcg capsule Take 1 capsule by mouth once daily. Administer on an empty stomach. Swallow whole; DO NOT crush or chew. kcacstakbld-mydnbaezj-szxtcugf (TRELEGY ELLIPTA) 100-62.5-25 mcg Inhale 1 Puff as instructed once daily. metFORMIN ER (GLUCOPHAGE XR) 500 mg 24 hr tablet Take 4 tablets by mouth daily with breakfast. esomeprazole (NEXIUM) 40 mg capsule Take 1 capsule by mouth twice daily before meals. 1/2 hr beforemeal. escitalopram oxalate (LEXAPRO) 10 mg tablet Take 1 tablet by mouth once daily. zoledronic acid (RECLAST) 5 mg/100 mL pgbk PREMIX piggyback Inject 100 mL intravenously once every 6 months. sucralfate (CARAFATE) 1 gram tablet Take 1 tablet by mouth twice daily before meals. CPAP Autopap 5-20 cm H2O, Heat Humidity, suitable mask, [employer] supplies, opt Chinstrap, G47.33. escitalopram oxalate (LEXAPRO) 10 mg tablet Take 1 tablet by mouth once daily. albuterol HFA (PROAIR HFA) 90 mcg/actuation inhaler Inhale 2 Puffs as instructed every 4 hours as needed. PREDNISONE ORAL Take by mouth as needed. blood sugar diagnostic (BLOOD GLUCOSE TEST) test [...] tablets by mouth once daily. Dr. Johnson No current facility-administered medications on file prior to visit. Social History Social History Tobacco Use Smoking status: Former Packs/day: 0.75 Years: 30.00 Pack years: 22.50 Types: Cigarettes Quit date: 08/15/2000 Years since quittin.7 Smokeless tobacco: Never Vaping Use Vaping Use: Never used Substance Use Topics Alcohol use: Never Comment: rarely Drug use: No REVIEW OF SYSTEMS: as above Reviewed relevant PMHx, PSHx, Social Hx, current medications and allergies. EXAM: BP 144/78 Pulse 120 Temp 37.2 C (98.9 F) (Tympanic) Resp 20 Wt 83.9 kg (185 lb) SpO2 91% BMI 33.84 kg/m General Appearance: Well appearing, alert, in no acute distress, well-hydrated, well nourished.. Skin: Left elbow, approximate 10-12 cm oval area of erythema with warmth. Tender Musculoskeletal: Able to freely move the joint, pronate without problems. Heart: normal, regular rate and rhythm, without murmur Lungs: Lungs clear to auscultation, No wheezing, rales or rhonchi Health Maintenance List SHINGRIX VACCINE(1 of 2) Never done COVID-19 VACCINE(4 - Booster for Moderna series) due on 09/17/2021 DIABETIC FOOT EXAM due on 03/06/2022 HBA1C due on 03/11/2022 INFLUENZA(1) due on 04/15/2022 MAMMOGRAM due on 06/09/2022 URINE ALBUMIN:CREATININE RATIO due on 09/08/2022 LDL CHOLESTEROL due on 09/23/2022 DILATED RETINAL EXAM due on 10/19/2022 DEPRESSION SCREENING due on 12/15/2022 ANNUAL PCP TEAM CHRONIC DISEASE VISIT due on 04/06/2023 BP CONTROLLED (<130/80) due on 05/01/2023 COLORECTAL CANCER SCREENING due on 12/18/2023 DTAP,TDAP,TD(4 - Td or Tdap) due on 06/30/2027 BONE DENSITY Completed ADVANCE DIRECTIVE DISCUSSION Completed HEPATITIS C SCREENING Completed PNEUMOCOCCAL: 65+ Completed Data reviewed [facility] ER note, xr elbow ASSESSMENT/PLAN: 1. Cellulitis of left upper extremity - ICD9: 682.3, ICD10: L03.114 (primary diagnosis) - Begin treatment with Cephalaxin (Keflex) - No lymphangetic streaking, this was defined for patient to watch for and to seek medical care immediately if appears - Follow up for recheck in three days - Attempted to capture images through [employer] but did not work. Updated PCP. - Discussed need to go to the ER for increased pain or fevers. 2. 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 Jd Mccabe APRN.MATERIAL LOADER RTO in 3 days This note was partly generated using Catch[employer]! voice recognition dictation and may contain some misspelled or inaccurate words missed on review. documented in this encounter[facility]09-[facility]-2022 Miscellaneous Notes* Telephone Encounter - Timbo Del Valle LPN - 04/16/2022 2:51 PM EDT Detailed message left on secure identified voicemail. Pt only to return call with any further questions or concerns. Timbo Del Valle LPN * Telephone Encounter - Usman Barboza PA-C - 04/16/2022 1:25 PM EDT Nodule type is likely benign. Continue with recommended follow up CT. PET scan not indicated at this time. Thanks, Dex Barboza PA-C * Telephone Encounter - Gertrudis Newman RN - 04/16/2022 8:15 AM EDT Patient calls and it is clarified with patient that CT Scan should be [address] scan onAugust 12. Patient asko asking if MRI or PET scan will need to be done? Patient state that she changes insurances at the end of year and if this was to be ordered she would like to have it done before end of year. Please review and advise, Gertrudis Newman RN * Telephone Encounter - Jen Dasilva - 04/15/2022 4:01 PM EDT 1st attempt left message to return call and schedule [address] scan * Telephone Encounter - Kerry Spivey Ma - 04/08/2022 9:15 AM EDT Images from the original note were not included. Usman Barboza PA-C [facility] Barrett Roque Please schedule CT follow up 6 months Thanks, Dex Barboza PA-C documented in this encounterW[facility]08-29-2022 Miscellaneous Notes* Telephone Encounter - Elena Brewster RN - 04/12/2022 5:25 PM EDT Patient has been identified by name and date of : Yes Patient phones for refill(s): Requested Prescriptions Pending Prescriptions Disp Refills losartan (COZAAR) 100 mg tablet 30 tablet 11 Sig: Take 1 tablet by mouth once daily. Date of last office visit with pcp: 12/15/21 Date of last office visit in primary care: 04/06/22 Last 2 Encounter Wt Readings: Date: Wt: 04/06/2022 90.3 kg (199 lb) 12/15/2021 90.7 kg (200 lb) Previous labs/tests for medication: Blood Pressure: BUN (mg/dL) Date Value 04/06/2022 16 09/23/2021 10 Sodium (mmol/L) Date Value 04/06/2022 135 09/23/2021 138 Last 1 Encounter BP Readings: Date: BP: 04/06/2022 148/66 Please advise. Thank you. Elena Brewster, RN documented in this encounterWooster [facility]08-26-2022 Miscellaneous Notes* Telephone Encounter - Areli Salas LPN - 04/09/2022 2:56 PM EDT Only thing she had prior to lab was water. Seeing Dr King haque now. Hasn't taken glucose today. Last night was in the 300's. Working 3rd shift. Was having trouble getting her pods seems to do better with those and was finally able to get them so hoping readings will get better. * Telephone Encounter - Areli Salas LPN - 04/09/2022 2:54 PM EDT ----- Message from Usman Barboza PA-C sent at 04/09/2022 6:05 AM EDT ----- Please advise chemistries are normal except elevated glucose 392.Please clarify if this was a fasting specimen-I do not think it was. White count is gone back to normal and CBC is also otherwise normal. Thanks, Dex Barboza PA-C documented in this encounterWooster [facility]08-24-2022 History of Present illness Narrative* Jaymie Koenig Ma - 04/07/2022 8:50 AM EDT Images from the original note were not included. Dex, please review ED visit from 03/26/22 in [facility] through Care Everywhere. Available labs, EKG, Imaging available for review. Attached HPI's. HPI: * Usman Barboza PA-C - 04/06/2022 1:54 PM EDT 71 year old female with c/o ER visit while at a in [facility]. Took short acting insulin Lispro 30uprior to meal, 15-20 minutes later cramping all over. Has had cramps for quite awhile but not as much or as long- excruciating. Legs buckled getting into the bag. No ER report is available- will petition. Was given multiple bags of IVF. Had CXR and CT with contrast of chest- no reports, Had urinary catheter while in. Had lab work- asking about cellular waste. Was placed on O2 and given a meal. States doctor felt she took wrong insulin. Blood sugar was 104, went down to 89 but only because a she hadn't eaten Diagnoses on patient information: Hypoglycemia, pulmonary nodule Notes cramping a lot all over usually a couple minutes: feet, backs of legs, abdomen, upper arms. Notes could see muscle balled up in legs. 03/26/2022 records of the lab have been uploaded: CBC: WBC 13.9-Hgb 14.4-HCT 41.6-PLT 410 with elevated lymphs 5.28 elevated mono 1.8, path report identified absolute polymorphic lymphocytosis. CMP: NA 144-CL 105-K3.6-CO2 19-BUN 20-CR 1.34 with EGFR 43-CA 10.6-MG 2.0 Blood sugars: 5:29 PM 87 6:13 PM 157 6:15 PM 610 6:24 PM 108 6:36 PM 137 7:35 PM 144 8:35 PM 160 10:08 PM 226 Lactic acid 7.4, D-dimer 518, BNP 40, troponin negative. Venous blood gas: pH 7.37-CO2 40-O2 85-HCO3 22.9-base deficit 2.1-O2 sat venous 21.0% HISTORIES FAMILY HISTORY Problem Relation Age of Onset None Mother None Father Stroke Sister Cancer Sister COPD Sister Breast Cancer Maternal Aunt PAST MEDICAL HISTORY Diagnosis Date Allergic rhinitis, cause unspecified Arthritis Asthma mild asthma Breast cancer (HCC) age 34-had lump, cancerous cells. no issues since, left Diverticulosis of colon (without mention of hemorrhage) Heme positive stool 2010 History of cervical cancer regular Paps for life Hyperlipidemia 2011 Inflammatory polyarthritis (HCC) Dr. 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) Sleep apnea Type II or unspecified type diabetes mellitus without mention of complication, not stated as uncontrolled Unspecified essential hypertension PAST SURGICAL HISTORY Procedure Laterality Date ABDOMINAL SURGERY HX hx of feeding tube inserted APPENDECTOMY APPENDECTOMY HX BREAST SURGERY HX COLONOSCOPY FLX DX W/COLLJ SPEC WHEN PFRMD 06/26/2009 COLONOSCOPY FLX DX W/COLLJ SPEC WHEN PFRMD 04/10/2019 Colonoscopy COLONOSCOPY SCREENING 02/11/2022 Dr Olivas EGD 2010 EGD 02/11/2022 Dr Olivas ERCP DX COLLECTION SPECIMEN BRUSHING/WASHING 07/23/2008 Cholangiopancreatography (ERCP) ESOPHAGOGASTRODUODENOSCOPY TRANSORAL DIAGNOSTIC 04/10/2019 EGD EYE SURGERY HX MASTECTOMY Left age 34 Mastectomy - simple MASTECTOMY HX PAST SURGICAL HISTORY OF nose cauterized inside RMVL SEC MEMBRANOUS CTRC CORNEO-SCLL SCTJ Bilateral Cataract removal BILATERAL TOTAL ABDOMINAL HYSTERECT W/WO RMVL TUBE OVARY age 27 Hysterectomy, MARQUES cervical cancer, has one ovary left VAGINAL HYSTERECTOMY Social History Tobacco Use Smoking status: Former Packs/day: 0.75 Years: 30.00 Pack years: 22.50 Types: Cigarettes Quit date: 08/15/2000 Years since quittin.6 Smokeless tobacco: Never Vaping Use Vaping Use: Never used Substance Use Topics Alcohol use: Never Comment: rarely Drug use: No ACTIVE PROBLEM LIST Hyperlipidemia Allergic Rhinitis Osteoarthritis Asymptomatic Varicose Veins Reflux Esophagitis Ibs (Irritable Bowel Syndrome) Htn (Hypertension) Urge Incontinence Inflammatory Polyarthritis (Hcc) Type 2 Diabetes Mellitus With Diabetic Retinopathy ([facility]) History of Cervical Cancer History of Breast Cancer H/O Left Mastectomy Obesity, Class I, Bmi 30-34.9 Pes Anserinus Bursitis of Both Knees Age-Related Osteoporosis Without Current Pathological Fracture Gastroparesis Due to Secondary Diabetes ([facility]) Subclinical Hypothyroidism Insulin Pump in Place Svt (Supraventricular Tachycardia) ([facility]) Current Outpatient Medications Medication Sig Dispense Refill insulin lispro-aabc (LYUMJEV KWIKPEN U-100 INSULIN) 100 unit/mL insulin pen Inject 22 Units subcutaneously three times daily before meals. Along with sliding scale fluticasone (FLONASE) 50 mcg/actuation nasal spray USE 1 SPRAY IN EACH NOSTRIL ONCE DAILY AT BEDTIME DIRECTED 16 g 11 hydroCHLOROthiazide (HYDRODIURIL, ESIDRIX) 12.5 mg capsule Take 1 capsule by mouth once daily. 30 capsule 11 metaxalone (SKELAXIN) 800 mg tablet Take 1 tablet by mouth three times daily as needed for pain. 30tablet 0 metoprolol succinate ER (TOPROL XL) 100 mg Take 1 tablet by mouth once daily. 30 tablet 5 oxybutynin ER (DITROPAN XL) 10 mg 24 hr tablet Take 1 tablet by mouth once daily. 90 tablet 3 atorvastatin (LIPITOR) 10 mg tablet Take 1 tablet by mouth daily at bedtime. For cholesterol. 30 tablet 5 loratadine (CLARITIN) 10 mg tablet Take 1 tablet by mouth once daily. 30 tablet 5 insulin degludec (TRESIBA FLEXTOUCH U-100) 100 unit/mL (3 mL) injection pen Inject 66 Units subcutaneously daily at bedtime. (Patient taking differently: Inject 55 Units subcutaneously daily at bedtime.) 18 mL 5 linaCLOtide (LINZESS) 72 mcg capsule Take 1 capsule by mouth once daily. Administer on an empty stomach. Swallow whole; DO NOT crush or chew. 30 capsule 5 jrftncrdzif-ohhcttzcf-grqdqtiy (TRELEGY ELLIPTA) 100-62.5-25 mcg Inhale 1 Puff as instructed once daily. 1 Each 2 metFORMIN ER (GLUCOPHAGE XR) 500 mg 24 hr tablet Take 4 tablets by mouth daily with breakfast. 360 tablet 3 esomeprazole (NEXIUM) 40 mg capsule Take 1 capsule by mouth twice daily before meals. 1/2 hr beforemeal. 180 capsule 3 losartan (COZAAR) 100 mg tablet Take 1 tablet by mouth once daily. 30 tablet 11 escitalopram oxalate (LEXAPRO) 10 mg tablet Take 1 tablet by mouth once daily. 90 tablet 1 zoledronic acid (RECLAST) 5 mg/100 mL pgbk PREMIX piggyback Inject 100 mL intravenously once every 6 months. 100 mL 1 sucralfate (CARAFATE) 1 gram tablet Take 1 tablet by mouth twice daily before meals. 60 tablet 2 CPAP Autopap 5-20 cm H2O, Heat Humidity, suitable mask, [employer] supplies, opt Chinstrap, G47.33. 1Device 0 escitalopram oxalate (LEXAPRO) 10 mg tablet Take 1 tablet by mouth once daily. 30 tablet 5 albuterol HFA (PROAIR HFA) 90 mcg/actuation inhaler Inhale 2 Puffs as instructed every 4 hours as needed. 1 Inhaler 1 PREDNISONE ORAL Take by mouth as needed. blood sugar diagnostic (BLOOD GLUCOSE TEST) test strip Test blood sugar(s) 3 times daily. Dx: Type 2 DM - Controlled E11.9 Insulin: YES 100 Each 11 Blood-Glucose Meter monitoring kit Glucose Meter of Choice - Kit - Dx: Type 2 DM - Controlled E11.91 Each 0 COMPOUNDED PRESCRIPTION Insulin needles-1/2 cc for 100 u Use up to 4 a day 150 Each 11 fluorometholone (FML LIQUID FILM) 0.1 % ophthalmic suspension Use 2 Drops in the left eye twice daily. aspirin, enteric coated (ASPIRIN, ENTERIC COATED) 81 mg EC tablet Take 81 mg by mouth once daily. methotrexate 2.5 mg tablet Take 20 mg by mouth every Tuesday. insulin needles, DISPOSABLE, (PEN NEEDLE) 31 gauge x 5/16 ndle Use one needle per dose. 4 per day.4 Each 99 folic acid 1 mg tablet Take 2 tablets by mouth once daily. Dr. Johnson 0 gabapentin (NEURONTIN) 300 mg capsule Take 1 capsule by mouth daily at bedtime for 90 days. 30 capsule 2 No current facility-administered medications for this visit. BP CONTROLLED (<130/80) Never done SHINGRIX VACCINE(1 of 2) Never done COVID-19 VACCINE(4 - Booster for Moderna series) due on 09/17/2021 DIABETIC FOOT EXAM due on 03/06/2022 HBA1C due on 03/11/2022 MAMMOGRAM due on 06/09/2022 EXAM: BP 148/66 Pulse 92 Resp 16 Wt 90.3 kg (199 lb) SpO2 94% BMI 36.40 kg/m Pleasant mildly anxious but well-appearing woman in her usual demeanor, in no acute distress. Alertand oriented all spheres. Normal affect and cognition. Speech normal. No deficits to learning or comprehension. Skin warm, dry, pink to lips and nailbeds. Normal turgor. Respirations regular and unlabored. HEENT: NCAT. No scleral icterus or conjunctival injection. TM's clear. Nose and oropharynx free from injection or lesion. Oral membranes moist and pink. No cervical lymph nodes. Thyroid non-tender, no masses, or enlargement. Carotids pulses 2+/4+ without bruits. No JVD with HOB at 30 degrees. Chest is normal shape. Lungs are clear to all fr[place] with good air exchange through out. HRRR without murmur or gallop. No lifts, heaves, or rubs. Abdomen: active bowel sounds throughout, soft, nontender, no masses or organomegaly. No CVAT. Extrem: no clubbing or cyanosis. Edema: none. Extremities are warm and pink with prompt capillary refill. No increased muscle tone or active cramping on stress upper lower extremities. Component Latest Ref Rng & Units 04/06/2022 GLUCOSE UA (POCT) Negative mg/dL >=1000 (A) BILIRUBIN UA (POCT) Negative Negative KETONE UA (POCT) Negative mg/dL Negative SPECIFIC GRAVITY UA (POCT) 1.005 - 1.030 1.020 HEMOGLOBIN/BLOOD UA (POCT) Negative Negative PH UA (POCT) 4.5 - 8.0 5.0 PROTEIN UA (POCT) Negative mg/dL Negative UROBILINOGEN UA (POCT) Normal E.U./dL 0.2 NITRITE UA (POCT) Negative Negative LEUKOCYTES UA (POCT) Negative Negative COLOR UA (POCT) Yellow CLARITY UA (POCT) Clear ASSESSMENT/PLAN: 1. Frequent urination - ICD9: 788.41, ICD10: R35.0 (primary diagnosis) Suspect r/t diabetes. SG indicates dry: push fluids - UA DIP, URINE (POC) 2. Muscle cramps - ICD9: 729.82, ICD10: R25.2 Suspect lactic acidosis as cause, likely due to low blood sugar as no infectious sx and initial blood sugars were not high - COMP METABOLIC PANEL 3. Serum calcium elevated - ICD9: 275.42, ICD10: E83.52 Recheck - COMP METABOLIC PANEL 4. Dehydration - ICD9: 276.51, ICD10: E86.0 Patient has had improved hydration - COMP METABOLIC PANEL 5. Leukocytosis, unspecified type - ICD9: 288.60, ICD10: D72.829 Recheck, likely due to stress - CBC 6. Lactic acid acidosis - ICD9: 276.2, ICD10: E87.2 Resolved We will recheck labs. Will petition ER summary and summary of all imaging. Encourage plenty of fluids daily. Continue current medications Has scheduled follow-up with Dr. Hernández 06/23/2022 Notify me in the interim with any changes or worsening symptoms. Usman Barboza PA-C documented in this encounterW[facility]08-22-2022 Miscellaneous Notes* Telephone Encounter - Timbo Del Valle LPN - 04/05/2022 11:28 AM EDT BAUDILIO 12/15/21 NOV 04/06/22 * Telephone Encounter - Miriam Fernandes Pss - 04/05/2022 10:52 AM EDT Patient has been identified by name and date of : Yes Requested Prescriptions Pending Prescriptions Disp Refills fluticasone (FLONASE) 50 mcg/actuation nasal spray 16 g 11 Sig: USE 1 SPRAY IN EACH NOSTRIL ONCE DAILY AT BEDTIME DIRECTED RX INSTRUCTIONS: Patient aware RX will be sent to pharmacy. No need to notify patient. Miriam Fernandes Pss documented in this [facility]07-06-2022 Miscellaneous Notes* Telephone Encounter - [place] Goyal Pss - 02/17/2022 2:35 PM EDT Pharmacy verified in Epic Patient has been identified by name and date of : Yes Patient aware RX will be sent to pharmacy. No need to notify patient. Patient phones for refill(s): Pending Prescriptions Disp Refills METAXALONE 800 MG TABLET 30 tablet 0 Sig: Take 1 tablet by mouth three times daily as needed for pain. NALDO: No Date of last office visit : 12/15/2021 Date of next office visit : 02/18/2022 Last 2 Encounter Wt Readings: Date: Wt: 12/15/2021 90.7 kg (200 lb) 09/23/2021 89.8 kg (198 lb) Please advise. Florida Goyal Pss documented in this [facility]06-27-20[facility] Miscellaneous Notes* Telephone Encounter - Usman Cotton RN - 02/08/2022 12:29 PM EDT Faxed most recent heart monitor results, EKG results, and stress test results to [facility] pre admission testing, per Leelee request. documented in this encounterW[facility]06-20-2022 Miscellaneous Notes* Telephone Encounter - Ilir Hernández MD - 02/01/2022 4:27 PM EDT agree * Telephone Encounter - Gertrudis Newman RN - 02/01/2022 3:34 PM EDT Patient calls and states that she has colonoscopy at [facility] 02/11. Patient calling to let patient knowthat she needs to hold aspirin and iron for 3 days. Patient states that oral diabetic medication and insulin in the morning. Patient is going to [facility] tomorrow and patient will them explain her diabetic medication. Patient states that [facility] told her that PCP needs to order bowel prep. Patient states that bowel prep states that she is supposed to take Miralax and dulcolax tablets. Advised patient that Miralax and dulcolax tablets can be bought over over the counter. Please review and advise, Gertrudis Newman RN documented in this encounterWo[facility]06-03-2022 History of Present illness Narrative* Lynne Hayden LPN - 01/15/2022 9:11 AM EDT Manual Readin/80 Pulse: 89 BP Pilo average: 157/79 P: 90 Repeat BP Check: 156/81 P89 #1 158/81 P91 #2 165/75 P90 #3 154/78 P91 #4 153/79 P89 #5 156/78 P88 #6 Reason for blood pressure check - Last BP elevated Patient is: Taking medication as prescribed Yes Took medication today Yes If no, date medication last taken N/A Experiencing side effects No BP was elevated at last appt 12/15/21. No BP medication changes were made at that time. Taking all medications as prescribed. States that she is still having issues with swelling in BLE. Denies any chest pain, unusual shortness of breath, dizziness, or headaches. Daily caffeine use. Past personal history of tobacco use; no current exposure. Alert and oriented. Pt has been identified by name and birthdate: Yes Allergies reviewed: Yes Latex allergy: no. Medication - prescribed and OTC reviewed and updated: Yes Do you need any prescription refills prior to your next visit: No Health Maintenance: Reviewed and not up to date and provider notified Patient advised that she would be contacted after review by PCP. Lynne Hayden LPN documented in this encounterWo[facility]05-18-2022 Miscellaneous Notes* Telephone Encounter - Leyla Eldridge LPN - 12/30/2021 2:06 PM EDT Images from the original note were not included. HOME submitted for Esomeprazole 40mg and APPROVED upon submission. Leyla Eldridge LPN documented in this encounterW[facility]05-03-2022 History of Present illness Narrative* Ilir Hernández MD - 12/15/2021 2:32 PM EDT No chief complaint on file. HPI: Patient presents today for office visit for follow up. Has just had insulin pump placed by endo this am. Just got a new meter. She is back on atorvastatin. No issues with meds. No chest pain No worsening dyspnea. No new palpitations. Monitor showed small amounts of svt. Has an appt in one to two months with [facility]. Discussed limiting caffeine etc. No syncope. Still seeing rheumatology Still with some gerd. Rarely using linzess. Causes diarhea. She is not using her trelegy regularly. Discussed doing so. Component Latest Ref Rng & Units 12/10/2021 Hemoglobin A1C 4.3 - 5.6 % 10.9 (H) Estimated Average Glucose mg/dL 266 TSH 0.270 - 4.200 mIU/L 2.820 See previous ov: DM: seeing endo. Sugars continue to be an issues. HYPERLIPIDEMIA: she is not taking her meds. Again reiterated to her that she needs to go on meds. Complains of palpitations. Some shortness of breath. Happens at night. No chest pain. No dizziness or syncope. Had stress test this summer: CONCLUSIONS: 1. SPECT Perfusion Study: Normal. 2. There is no scintigraphic evidence for inducible ischemia. 3. No evidence of scarred myocardium. 4. Left ventricle is normal in size. The left ventricle systolic function is normal. 5. Right ventricle is normal in size. 6. This is a low risk scan. Gated Stress FBP LVEF % 70s She is unsure if using her linzess. She thinks it made it worse. Discussed that she should see her gi. Complains still of muscle cramping and neuropathy pain. Still seeing rheumatology, Dr. Johnson. See previous ov in 03/04: DM: Reports overall feeling well. Medication side effects: trulicity is on hold per pharmacy due to gi side effects. . Home sugar check frequency/results:have been up. Hypoglycemic spells: No. Declines endo. seeing GASTROENTEROLOGY. Has gastroparesis. Stress test was normal. Memory is stable. Seems to be better. Off of lipitor. She is unsure why. She was having some myalgias. See previous Pharm D note: 1. 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, with long-term current useof insulin, macular edema presence unspecified, unspecified proliferative retinopathy type (HCC) - ICD9: 250.50, 362.02, V58.67, ICD10: E11.3593, Z79.4 A1c goal < 7%; uncontrolled (last A1c 8.9%); SMBGs fluctuate greatly; had a very high BG readingthis morning after eating a piece of peach pie, she took hbfd-lo-bzdk readings with glucometer and there was a 200 pt difference, possible that meter may not be reading accurately; denies any alarm sx; patient has been taking only 1 tab of metformin daily d/t diarrhea so will switch to ER today andhope for better tolerability; patient inappropriately taking Novolog after meals on occasion - education provided; GI issues have substantially improved since being off Trulicity though patient has noticed increased appetite; will plan to continue without Trulicity; will f/up in 1 mo; renal fxn andLFTs sufficient for use DISCONTINUE metformin 1000mg BID INITIATE metformin ER 2000mg daily (start with 1000mg daily for a few days, gradually increase by 1tab every few days as tolerated for goal dose of 2000mg daily) CONTINUE Tresiba 66 units daily and Novolog 15 units TIDAC ? 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 PharmD informedpatient that PCP did submit a script to [facility] pharmacy on 03/06, advised her start medication and call office with any issues. Patient is scheduled to see PCP on 09/11/20. Patient to have PharmD f/u on 04/21. Patient verbalized understanding of instructions. MEDICATIONS: Current Outpatient Medications Medication Sig metaxalone (SKELAXIN) 800 mg tablet Take 1 tablet by mouth three times daily as needed for pain. HUMALOG KWIKPEN INSULIN 200 unit/mL (3 mL) injection Sliding scale oxybutynin ER (DITROPAN XL) 10 mg 24 hr tablet Take 1 tablet by mouth once daily. atorvastatin (LIPITOR) 10 mg tablet Take 1 tablet by mouth daily at bedtime. For cholesterol. gabapentin (NEURONTIN) 300 mg capsule Take 1 capsule by mouth daily at bedtime for 90 days. metoprolol succinate ER (TOPROL XL) 50 mg 24 hr tablet Take 1 tablet by mouth once daily. loratadine (CLARITIN) 10 mg tablet Take 1 tablet by mouth once daily. insulin degludec (TRESIBA FLEXTOUCH U-100) 100 unit/mL (3 mL) injection pen Inject 66 Units subcutaneously daily at bedtime. (Patient taking differently: Inject 55 Units subcutaneously daily at bedtime. ) linaCLOtide (LINZESS) 72 mcg capsule Take 1 capsule by mouth once daily. Administer on an empty stomach. Swallow whole; DO NOT crush or chew. oqtqyjlpoqg-xcemsywqh-cevrzbah (TRELEGY ELLIPTA) 100-62.5-25 mcg Inhale 1 Puff as instructed once daily. metFORMIN ER (GLUCOPHAGE XR) 500 mg 24 hr tablet Take 4 tablets by mouth daily with breakfast. esomeprazole (NEXIUM) 40 mg capsule Take 1 capsule by mouth twice daily before meals. 1/2 hr beforemeal. fluticasone (FLONASE) 50 mcg/actuation nasal spray USE 1 SPRAY IN EACH NOSTRIL ONCE DAILY AT BEDTIME DIRECTED losartan (COZAAR) 100 mg tablet Take 1 tablet by mouth once daily. hydroCHLOROthiazide 12.5 mg capsule Take 1 capsule by mouth once daily. escitalopram oxalate (LEXAPRO) 10 mg tablet Take 1 tablet by mouth once daily. insulin aspart U-100 (NOVOLOG) 100 unit/mL (3 mL) Inject 15 units subcutaneously three times daily before meals. (Patient taking differently: Inject 18 units subcutaneously three times daily before meals. Sliding scale ) zoledronic acid (RECLAST) 5 mg/100 mL pgbk PREMIX piggyback Inject 100 mL intravenously once every 6 months. sucralfate (CARAFATE) 1 gram tablet Take 1 tablet by mouth twice daily before meals. CPAP Autopap 5-20 cm H2O, Heat Humidity, suitable mask, [employer] supplies, opt Chinstrap, G47.33. escitalopram oxalate (LEXAPRO) 10 mg tablet Take 1 tablet by mouth once daily. albuterol HFA (PROAIR HFA) 90 mcg/actuation inhaler Inhale 2 Puffs as instructed every 4 hours as needed. PREDNISONE ORAL Take by mouth as needed. blood sugar diagnostic (BLOOD GLUCOSE TEST) test [...] tablets by mouth once daily. Dr. Johnson No current facility-administered medications for this visit. ALLERGIES: ALLERGIES Allergen Reactions Jesenai Inhibitors Cough Nsaids (Non-Steroid* GI Upset Tape [Adhesive Tape* Other: See Comments Blisters from surgical tape Trulicity [Dulaglut* Other: See Comments Gastroparesis PAST MEDICAL HISTORY Diagnosis Date Allergic rhinitis, cause unspecified Arthritis Asthma mild asthma Breast cancer (HCC) age 34-had lump, cancerous cells. no issues since, left Diverticulosis of colon (without mention of hemorrhage) Heme positive stool 2011 History of cervical cancer regular Paps for life Hyperlipidemia 2011 Inflammatory polyarthritis (HCC) Dr. 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) Sleep apnea Type II or unspecified type diabetes mellitus without mention of complication, not stated as uncontrolled Unspecified essential hypertension PAST SURGICAL HISTORY Procedure Laterality Date ABDOMINAL SURGERY HX hx of feeding tube inserted APPENDECTOMY APPENDECTOMY HX BREAST SURGERY HX COLONOSCOPY FLX DX W/COLLJ SPEC WHEN PFRMD 06/26/09 COLONOSCOPY FLX DX W/COLLJ SPEC WHEN PFRMD 04/10/2019 Colonoscopy EGD 2010 ERCP DX COLLECTION SPECIMEN BRUSHING/WASHING 07/23/2008 Cholangiopancreatography (ERCP) ESOPHAGOGASTRODUODENOSCOPY TRANSORAL DIAGNOSTIC 04/10/2019 EGD EYE SURGERY HX MASTECTOMY Left age 34 Mastectomy - simple MASTECTOMY HX PAST SURGICAL HISTORY OF nose cauterized inside RMVL SEC [facility]AN[facility] CORNEO-SCLL SCTJ Bilateral Cataract removal BILATERAL TOTAL ABDOMINAL HYSTERECT W/WO RMVL TUBE OVARY age 27 Hysterectomy, MARQUES cervical cancer, has one ovary left VAGINAL HYSTERECTOMY FAMILY HISTORY Problem Relation Age of Onset None Mother None Father Stroke Sister Cancer Sister COPD Sister Breast Cancer Maternal Aunt Social History Tobacco Use Smoking status: Former Smoker Packs/day: 0.75 Years: 30.00 Pack years: 22.50 Types: Cigarettes Quit date: 08/15/2000 Years since quittin.3 Smokeless tobacco: Never Used Vaping Use Vaping Use: Never used Substance Use Topics Alcohol use: Never Comment: rarely Drug use: No Reviewed current medications, allergies, past medical history, surgical history, family history andsocial history today. REVIEW OF SYSTEMS All other reviewed and negative other than HPI. HEALTH MAINTENANCE: Reviewed health maintenance issues today and recommended the following in detail. DEPRESSION SCREENING - Depression Screening 10/11/2017 11/22/2018 09/05/2019 12/15/2021 PHQ-2 Score 0 0 3 0 PHQ-9 Score - - 9 - Depression screening tool completed and reviewed. Based on score and interview, patient is not at risk for depression. Screening tool discussed with patient, and I recommended no further interventionat this time. ADVANCE DIRECTIVE DISCUSSION Discussed advanced planning with patient today. They have a DPOA/Living Will:yes Chosen surrogate for decision maker:her daughter. Reminded patients to have copies of their forms brought into the office to have placed in their medical records. Questions were answered. VITALS: BP 142/70 Pulse 90 Resp 16 Wt 90.7 kg (200 lb) SpO2 94% BMI 36.58 kg/m Last 4 Encounter Wt Readings: Date: Wt: 09/23/2021 89.8 kg (198 lb) 09/14/2021 88.1 kg (194 lb 3.2 oz) 09/11/2021 88.9 kg (196 lb) 06/05/2021 88.3 kg (194 lb 9.6 oz) PHYSICAL EXAMINATION: General appearance: Well appearing, alert, in no acute distress, well-hydrated, well nourished. Skin: Skin color, texture, turgor normal, no suspicious rashes or lesions Head: Normocephalic, no masses, lesions, tenderness or abnormalitie Lungs: Lungs clear to auscultation. No wheezing, rhonchi, rales Heart: RRR without murmur, gallop, or rubs. No ectopy Abdomen: Normal abdominal exam, Abdomen soft, non-tender. Bowel sounds normal. No masses, organomegaly Extremities: No deformities, edema, skin discoloration, clubbing or cyanosis. Good capillary refill. Musculoskeletal: No joint swelling, deformity, or tenderness Peripheral pulses: Normal Neuro: Negative. ASSESSMENT/PLAN: 1. 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, unspecified retinopathy severity, unspecified whether chcf insulin use (HCC) - ICD9: 250.50, 362.01, 362.07, ICD10: E11.311 (primary diagnosis) poorly controlled - See how things improve with insulin pump 2. Insulin pump in place - ICD9: V45.85, ICD10: Z96.41 - follow with endo 3. Gastroparesis due to secondary diabetes ([facility]) - ICD9: 249.60, 536.3, ICD10: E13.43 - as above. 4. Subclinical hypothyroidism - ICD9: 244.8, ICD10: E03.8 - stable 5. Gastroesophageal reflux disease with esophagitis without hemorrhage - ICD9: 530.81, 530.10, ICD10: K21.00 6. Primary hypertension - ICD9: 401.9, ICD10: I10 - good control - Continue current medication(s) - Goal of BP <130/80 7. Mixed hyperlipidemia - ICD9: 272.2, ICD10: E78.2 - improved control - Continue current medication. 8. Inflammatory polyarthritis (HCC) - ICD9: 714.9, ICD10: M06.4 - per Dr. Johnson. 9. SVT (supraventricular tachycardia) (HCC) - ICD9: 427.89, ICD10: I47.1 - avoid caffeine. See cardiology.Red flags for re-assessment reviewed with patient in detail. Ilir Hernández RTO in six months and prn. bp check in one month [facility] Miscellaneous Notes* Telephone Encounter - Ilir Hernández MD - 12/10/2021 2:25 PM EDT done * Telephone Encounter - Kerry Spivey Ma - 12/10/2021 2:20 PM EDT Please file lab orders Please add any other orders that might be needed. Pt waiting at lab documented in this encounterW[facility]04-28-2022 Miscellaneous Notes* Telephone Encounter - Areli Salas LPN - 12/10/2021 1:56 PM EDT Faxed as requested. * Telephone Encounter - Casandra Philip Pss - 12/10/2021 1:22 PM EDT Patient would like a referral to [facility] due to Dr. Zacarias's reschedules are into mid May for [place]. Please fax order to [phone]. Please advise. Thank you documented in this [facility]04-07-2022 Miscellaneous Notes* Telephone Encounter - Usman Cotton RN - 11/19/2021 2:15 PM EDT Patient has been identified by name and date of : Yes Patient phones for refill(s): Pending Prescriptions Disp Refills METAXALONE 800 MG TABLET 30 tablet 0 Sig: Take 1 tablet by mouth three times daily as needed for pain. NALDO: No Date of last office visit with pcp: 09-11-21. Next appt: 12-15-21 Last 2 Encounter Wt Readings: Date: Wt: 09/23/2021 89.8 kg (198 lb) 09/14/2021 88.1 kg (194 lb 3.2 oz) Previous labs/tests for medication: Blood Pressure: BUN (mg/dL) Date Value 09/23/2021 10 Sodium (mmol/L) Date Value 09/23/2021 138 Last 1 Encounter BP Readings: Date: BP: 09/23/2021 156/82 Liver Function: ALT (U/L) Date Value 09/23/2021 11 AST (U/L) Date Value 09/23/2021 13 Please advise. Thank you. Usman Cotton RN documented in this encounterW[facility]08-17-2021 NoteHNO ID: [id number] Author: Alina Espinoza Service: Radiology Author Type: Towel Weaver Type: Progress Notes Filed: 03/31/2021 12:21 PM Note Text: Radiology Service Progress Note PATIENT NAME: Manisha Keith DATE OF SERVICE: March 31, 2021 TIME: 12:21 PM PATIENT IDENTITY VERIFICATION COMPLETED USING TWO (2) IDENTIFIERS: Name and Date of confirmed by patient verbally and Name and Date of confirmed by identification band. FALL SCREENING: Has the patient had 2 falls in the last year or 1 fall with injury or currently using an Ambulatory Assistive Device (Walker, Cane, Wheelchair, Crutches, etc.)? No PATIENT GENDER DATA: Female. status: : No status: N/A PATIENT RELEVANT IMPLANT DATA REVIEWED: Not Applicable RADIOLOGY DEPARTMENT: General X-ray: Exam(s) Completed: Abdomen X-Ray: Abdomen PERIPHERAL IV DATA: Not applicable SIGNED BY: Alina GALAN March 31, 2021 12:21 [facility] History of Present illness Narrative* Gabbi Parker (Rt)Alina - 05/26/2020 3:40 PM EDT Radiology Service Progress Note PATIENT NAME: Manisha Keith DATE OF SERVICE: May 26, 2020 TIME: 3:42 PM PATIENT IDENTITY VERIFICATION COMPLETED USING TWO (2) IDENTIFIERS: Name and Date of confirmedby patient verbally. FALL SCREENING: Has the patient had 2 falls in the last year or 1 fall with injury or currently using an Ambulatory Assistive Device (Walker, Cane, Wheelchair, Crutches, etc.)? No PATIENT GENDER DATA: Female. status: : No status: NO. PATIENT RELEVANT IMPLANT DATA REVIEWED: Yes RADIOLOGY DEPARTMENT: General X-ray: Exam(s) Completed: Chest X-Ray PERIPHERAL IV DATA: Not applicable SIGNED BY: RT Christopher May 26, 2020 3:42 PM documented in this encounterW[facility]10-22-2019 History of Past illness Narrative* Problem Noted Date Resolved Date Acute pain of both knees 06/05/2019 022 Routine general medical exam ination at a [facility] facility 07/04/2009 11/22/2013 Malignant neoplasm of female breast 07/30/2008 05/25/2016 Esophagitis, unspecified 07/23/2008 008 Other specified disorder of bladder 06/20/2007 11/25/2016 Unspecified sinusitis (chronic) 06/01/2007 05/25/2016 Dysuria 01/02/2007 05/25/2016 Irritable bowel syndrome 06/04/2006 017 Essential hypertension, benign 05/28/2005 0 09/01/2007 Primary localized osteoarthrosis, pelvic region and thigh 05/28/2005 06/04/2006 Diabetes 05/28/2005 06/27/2015 Unspecified sleep apnea 05/28/2005 12/08/19 14 Overview: PSG done 11/13/2002 @ [facility] . AHI 12 . Report sent to scan into [employer]. 12/05/[address] Norton Heme positive stool 11/22/2013 documented as of this encounter (statuses as of 12/15/2021) [facility] of Past illness Narrative* Problem Noted Date Resolved Date Acute pain of both knees 06/05/2019 022 Routine general medical exam ination at a health care facility 07/04/2009 11/22/2013 Malignant neoplasm of female breast 07/30/2008 05/25/2016 Esophagitis, unspecified 07/23/2008 008 Other specified disorder of bladder 06/20/2007 11/25/2016 Unspecified sinusitis (chronic) 06/01/2007 05/25/2016 Dysuria 01/02/2007 05/25/2016 Irritable bowel syndrome 06/04/2006 017 Essential hypertension, benign 05/28/2005 0 09/01/2007 Primary localized osteoarthrosis, pelvic region and thigh 05/28/2005 06/04/2006 Diabetes 05/28/2005 06/27/2015 Unspecified sleep apnea 05/28/2005 12/08/19 14 Overview: PSG done 11/13/2002 @ [facility] . AHI 12 . Report sent to scan into [employer]. 12/05/[address] Norton Heme positive stool 11/22/2013 documented as of this encounter (statuses as of 12/30/2021) [facility] of [facility] illness Narrative* Problem Noted Date Resolved Date Acute pain of both knees 06/05/2019 022 Routine general medical exam ination at a health care facility 07/04/2009 11/22/2013 Malignant neoplasm of female breast 07/30/2008 05/25/2016 Esophagitis, unspecified 07/23/2008 008 Other specified disorder of bladder 06/20/2007 11/25/2016 Unspecified sinusitis (chronic) 06/01/2007 05/25/2016 Dysuria 01/02/2007 05/25/2016 Irritable bowel syndrome 06/04/2006 017 Essential hypertension, benign 05/28/2005 0 09/01/2007 Primary localized osteoarthrosis, pelvic region and thigh 05/28/2005 06/04/2006 Diabetes 05/28/2005 06/27/2015 Unspecified sleep apnea 05/28/2005 12/08/19 14 Overview: PSG done 11/13/2002 @ [facility] . AHI 12 . Report sent to scan into [employer]. 12/05/[address] Errol Garcia positive stool 11/22/2013 documented as of this encounter (statuses as of 01/15/2022) [facility] Narrative* Problem Noted Date Resolved Date Acute pain of both knees 06/05/2019 022 Routine general medical exam ination at a health care facility 07/04/2009 11/22/2013 Malignant neoplasm of female breast 07/30/2008 05/25/2016 Esophagitis, unspecified 07/23/2008 008 Other specified disorder of bladder 06/20/2007 11/25/2016 Unspecified sinusitis (chronic) 06/01/2007 05/25/2016 Dysuria 01/02/2007 05/25/2016 Irritable bowel syndrome 06/04/2006 017 Essential hypertension, benign 05/28/2005 0 09/01/2007 Primary localized osteoarthrosis, pelvic region and thigh 05/28/2005 06/04/2006 Diabetes 05/28/2005 06/27/2015 Unspecified sleep apnea 05/28/2005 12/08/19 14 Overview: PSG done 11/13/2002 @ [facility] . AHI 12 . Report sent to scan into [employer]. 12/05/[address] Errol Garcia positive stool 11/22/2013 documented as of this encounter (statuses as of 02/01/2022) [facility] Narrative* Problem Noted Date Resolved Date Acute pain of both knees 06/05/2019 022 Routine general medical exam ination at a health care facility 07/04/2009 11/22/2013 Malignant neoplasm of female breast 07/30/2008 05/25/2016 Esophagitis, unspecified 07/23/2008 008 Other specified disorder of bladder 06/20/2007 11/25/2016 Unspecified sinusitis (chronic) 06/01/2007 05/25/2016 Dysuria 01/02/2007 05/25/2016 Irritable bowel syndrome 06/04/2006 017 Essential hypertension, benign 05/28/2005 0 09/01/2007 Primary localized osteoarthrosis, pelvic region and thigh 05/28/2005 06/04/2006 Diabetes 05/28/2005 06/27/2015 Unspecified sleep apnea 05/28/2005 12/08/19 14 Overview: PSG done 11/13/2002 @ [facility] . AHI 12 . Report sent to scan into [employer]. 12/05/[address] Errol Garcia positive stool 11/22/2013 documented as of this encounter (statuses as of 02/08/2022) [facility] Narrative* Problem Noted Date Resolved Date Acute pain of both knees 06/05/2019 022 Routine general medical exam ination at a health care facility 07/04/2009 11/22/2013 Malignant neoplasm of female breast 07/30/2008 05/25/2016 Esophagitis, unspecified 07/23/2008 008 Other specified disorder of bladder 06/20/2007 11/25/2016 Unspecified sinusitis (chronic) 06/01/2007 05/25/2016 Dysuria 01/02/2007 05/25/2016 Irritable bowel syndrome 06/04/2006 017 Essential hypertension, benign 05/28/2005 0 09/01/2007 Primary localized osteoarthrosis, pelvic region and thigh 05/28/2005 06/04/2006 Diabetes 05/28/2005 06/27/2015 Unspecified sleep apnea 05/28/2005 12/08/19 14 Overview: PSG done 11/13/2002 @ [facility] . AHI 12 . Report sent to scan into [employer]. 12/05/[address] Errol Garcia positive stool 11/22/2013 documented as of this encounter (statuses as of 02/17/2022) [facility] Narrative* Problem Noted Date Resolved Date Acute pain of both knees 06/05/2019 022 Routine general medical exam ination at a health care facility 07/04/2009 11/22/2013 Malignant neoplasm of female breast 07/30/2008 05/25/2016 Esophagitis, unspecified 07/23/2008 008 Other specified disorder of bladder 06/20/2007 11/25/2016 Unspecified sinusitis (chronic) 06/01/2007 05/25/2016 Dysuria 01/02/2007 05/25/2016 Irritable bowel syndrome 06/04/2006 017 Essential hypertension, benign 05/28/2005 0 09/01/2007 Primary localized osteoarthrosis, pelvic region and thigh 05/28/2005 06/04/2006 Diabetes 05/28/2005 06/27/2015 Unspecified sleep apnea 05/28/2005 12/08/19 14 Overview: PSG done 11/13/2002 @ [facility] . AHI 12 . Report sent to scan into [employer]. 12/05/[address] Errol Garcia positive stool 11/22/2013 documented as of this encounter (statuses as of 04/05/2022) [facility] Narrative* Problem Noted Date Resolved Date Acute pain of both knees 06/05/2019 022 Routine general medical exam ination at a health care facility 07/04/2009 11/22/2013 Malignant neoplasm of female breast 07/30/2008 05/25/2016 Esophagitis, unspecified 07/23/2008 008 Other specified disorder of bladder 06/20/2007 11/25/2016 Unspecified sinusitis (chronic) 06/01/2007 05/25/2016 Dysuria 01/02/2007 05/25/2016 Irritable bowel syndrome 06/04/2006 017 Essential hypertension, benign 05/28/2005 0 09/01/2007 Primary localized osteoarthrosis, pelvic region and thigh 05/28/2005 06/04/2006 Diabetes 05/28/2005 06/27/2015 Unspecified sleep apnea 05/28/2005 12/08/19 14 Overview: PSG done 11/13/2002 @ [facility] . AHI 12 . Report sent to scan into [employer]. 12/05/[address] Errol Garcia positive stool 11/22/2013 documented as of this encounter (statuses as of 04/07/2022) [facility] Narrative* Problem Noted Date Resolved Date Acute pain of both knees 06/05/2019 022 Routine general medical exam ination at a health care facility 07/04/2009 11/22/2013 Malignant neoplasm of female breast 07/30/2008 05/25/2016 Esophagitis, unspecified 07/23/2008 008 Other specified disorder of bladder 06/20/2007 11/25/2016 Unspecified sinusitis (chronic) 06/01/2007 05/25/2016 Dysuria 01/02/2007 05/25/2016 Irritable bowel syndrome 06/04/2006 017 Essential hypertension, benign 05/28/2005 0 09/01/2007 Primary localized osteoarthrosis, pelvic region and thigh 05/28/2005 06/04/2006 Diabetes 05/28/2005 06/27/2015 Unspecified sleep apnea 05/28/2005 12/08/19 14 Overview: PSG done 11/13/2002 @ [facility] . AHI 12 . Report sent to scan into [employer]. 12/05/[address] Errol Garcia positive stool 11/22/2013 documented as of this encounter (statuses as of 04/12/2022) [facility] Narrative* Problem Noted Date Resolved Date Acute pain of both knees 06/05/2019 022 Routine general medical exam ination at a health care facility 07/04/2009 11/22/2013 Malignant neoplasm of female breast 07/30/2008 05/25/2016 Esophagitis, unspecified 07/23/2008 008 Other specified disorder of bladder 06/20/2007 11/25/2016 Unspecified sinusitis (chronic) 06/01/2007 05/25/2016 Dysuria 01/02/2007 05/25/2016 Irritable bowel syndrome 06/04/2006 017 Essential hypertension, benign 05/28/2005 0 09/01/2007 Primary localized osteoarthrosis, pelvic region and thigh 05/28/2005 06/04/2006 Diabetes 05/28/2005 06/27/2015 Unspecified sleep apnea 05/28/2005 12/08/19 14 Overview: PSG done 11/13/2002 @ [facility] . AHI 12 . Report sent to scan into [employer]. 12/05/[address] Errol Garcia positive stool 11/22/2013 documented as of this encounter (statuses as of 04/16/2022) [facility] Narrative* Problem Noted Date Resolved Date Acute pain of both knees 06/05/2019 022 Routine general medical exam ination at a health care facility 07/04/2009 11/22/2013 Malignant neoplasm of female breast 07/30/2008 05/25/2016 Esophagitis, unspecified 07/23/2008 008 Other specified disorder of bladder 06/20/2007 11/25/2016 Unspecified sinusitis (chronic) 06/01/2007 05/25/2016 Dysuria 01/02/2007 05/25/2016 Irritable bowel syndrome 06/04/2006 017 Essential hypertension, benign 05/28/2005 0 09/01/2007 Primary localized osteoarthrosis, pelvic region and thigh 05/28/2005 06/04/2006 Diabetes 05/28/2005 06/27/2015 Unspecified sleep apnea 05/28/2005 12/08/19 14 Overview: PSG done 11/13/2002 @ [facility] . AHI 12 . Report sent to scan into [employer]. 12/05/[address] Norton Heme positive stool 11/22/2013 documented as of this encounter (statuses as of 05/03/2022) [facility] Narrative* Problem Noted Date Resolved Date Acute pain of both knees 06/05/2019 022 Routine general medical exam ination at a health care facility 07/04/2009 11/22/2013 Malignant neoplasm of female breast 07/30/2008 05/25/2016 Esophagitis, unspecified 07/23/2008 008 Other specified disorder of bladder 06/20/2007 11/25/2016 Unspecified sinusitis (chronic) 06/01/2007 05/25/2016 Dysuria 01/02/2007 05/25/2016 Irritable bowel syndrome 06/04/2006 017 Essential hypertension, benign 05/28/2005 0 09/01/2007 Primary localized osteoarthrosis, pelvic region and thigh 05/28/2005 06/04/2006 Diabetes 05/28/2005 06/27/2015 Unspecified sleep apnea 05/28/2005 12/08/19 14 Overview: PSG done 11/13/2002 @ [facility] . AHI 12 . Report sent to scan into [employer]. 12/05/[address] Errol Garcia positive stool 11/22/2013 documented as of this encounter (statuses as of 05/03/2022) [facility] Narrative* Problem Noted Date Resolved Date Acute pain of both knees 06/05/2019 022 Routine general medical exam ination at a health care facility 07/04/2009 11/22/2013 Malignant neoplasm of female breast 07/30/2008 05/25/2016 Esophagitis, unspecified 07/23/2008 008 Other specified disorder of bladder 06/20/2007 11/25/2016 Unspecified sinusitis (chronic) 06/01/2007 05/25/2016 Dysuria 01/02/2007 05/25/2016 Irritable bowel syndrome 06/04/2006 017 Essential hypertension, benign 05/28/2005 0 09/01/2007 Primary localized osteoarthrosis, pelvic region and thigh 05/28/2005 06/04/2006 Diabetes 05/28/2005 06/27/2015 Unspecified sleep apnea 05/28/2005 12/08/19 14 Overview: PSG done 11/13/2002 @ [facility] . AHI 12 . Report sent to scan into [employer]. 12/05/[address] Errol Garcia positive stool 11/22/2013 documented as of this encounter (statuses as of 05/06/2022) [facility] Narrative* Problem Noted Date Resolved Date Acute pain of both knees 06/05/2019 022 Routine general medical exam ination at a health care facility 07/04/2009 11/22/2013 Malignant neoplasm of female breast 07/30/2008 05/25/2016 Esophagitis, unspecified 07/23/2008 008 Other specified disorder of bladder 06/20/2007 11/25/2016 Unspecified sinusitis (chronic) 06/01/2007 05/25/2016 Dysuria 01/02/2007 05/25/2016 Irritable bowel syndrome 06/04/2006 017 Essential hypertension, benign 05/28/2005 0 09/01/2007 Primary localized osteoarthrosis, pelvic region and thigh 05/28/2005 06/04/2006 Diabetes 05/28/2005 06/27/2015 Unspecified sleep apnea 05/28/2005 12/08/19 14 Overview: PSG done 11/13/2002 @ [facility] . AHI 12 . Report sent to scan into [employer]. 12/05/[address] Errol Garcia positive stool 11/22/2013 documented as of this encounter (statuses as of 05/17/2022) [facility] Narrative* Problem Noted Date Resolved Date Acute pain of both knees 06/05/2019 022 Routine general medical exam ination at a health care facility 07/04/2009 11/22/2013 Malignant neoplasm of female breast 07/30/2008 05/25/2016 Esophagitis, unspecified 07/23/2008 008 Other specified disorder of bladder 06/20/2007 11/25/2016 Unspecified sinusitis (chronic) 06/01/2007 05/25/2016 Dysuria 01/02/2007 05/25/2016 Irritable bowel syndrome 06/04/2006 017 Essential hypertension, benign 05/28/2005 0 09/01/2007 Primary localized osteoarthrosis, pelvic region and thigh 05/28/2005 06/04/2006 Diabetes 05/28/2005 06/27/2015 Unspecified sleep apnea 05/28/2005 12/08/19 14 Overview: PSG done 11/13/2002 @ [facility] . AHI 12 . Report sent to scan into [employer]. 12/05/[address] Errol Garcia positive stool 11/22/2013 documented as of this encounter (statuses as of 05/28/2022) [facility]2019 History of Past illness Narrative* Problem Noted Date Resolved Date Acute pain of both knees 06/05/2019 022 Routine general medical exam ination at a health care facility 07/04/2009 11/22/2013 Malignant neoplasm of female breast 07/30/2008 05/25/2016 Esophagitis, unspecified 07/23/2008 008 Other specified disorder of bladder 06/20/2007 11/25/2016 Unspecified sinusitis (chronic) 06/01/2007 05/25/2016 Dysuria 01/02/2007 05/25/2016 Irritable bowel syndrome 06/04/2006 017 Essential hypertension, benign 05/28/2005 0 09/01/2007 Primary localized osteoarthrosis, pelvic region and thigh 05/28/2005 06/04/2006 Diabetes 05/28/2005 06/27/2015 Unspecified sleep apnea 05/28/2005 12/08/19 14 Overview: PSG done 11/13/2002 @ [facility] . AHI 12 . Report sent to scan into [employer]. 12/05/[address] Errol Garcia positive stool 11/22/2013 documented as of this encounter (statuses as of 06/02/2022) [facility] History of Past illness Narrative* Problem Noted Date Resolved Date Acute pain of both knees 06/05/2019 022 Routine general medical exam ination at a health care facility 07/04/2009 11/22/2013 Malignant neoplasm of female breast 07/30/2008 05/25/2016 Esophagitis, unspecified 07/23/2008 008 Other specified disorder of bladder 06/20/2007 11/25/2016 Unspecified sinusitis (chronic) 06/01/2007 05/25/2016 Dysuria 01/02/2007 05/25/2016 Irritable bowel syndrome 06/04/2006 017 Essential hypertension, benign 05/28/2005 0 09/01/2007 Primary localized osteoarthrosis, pelvic region and thigh 05/28/2005 06/04/2006 Diabetes 05/28/2005 06/27/2015 Unspecified sleep apnea 05/28/2005 12/08/19 14 Overview: PSG done 11/13/2002 @ [facility] . AHI 12 . Report sent to scan into [employer]. 12/05/[address] Errol Garcia positive stool 11/22/2013 documented as of this encounter (statuses as of 06/23/2022) [facility] History of Past illness Narrative* Problem Noted Date Resolved Date Acute pain of both knees 06/05/2019 022 Routine general medical exam ination at a health care facility 07/04/2009 11/22/2013 Malignant neoplasm of female breast 07/30/2008 05/25/2016 Esophagitis, unspecified 07/23/2008 008 Other specified disorder of bladder 06/20/2007 11/25/2016 Unspecified sinusitis (chronic) 06/01/2007 05/25/2016 Dysuria 01/02/2007 05/25/2016 Irritable bowel syndrome 06/04/2006 017 Essential hypertension, benign 05/28/2005 0 09/01/2007 Primary localized osteoarthrosis, pelvic region and thigh 05/28/2005 06/04/2006 Diabetes 05/28/2005 06/27/2015 Unspecified sleep apnea 05/28/2005 12/08/19 14 Overview: PSG done 11/13/2002 @ [facility] . AHI 12 . Report sent to scan into [employer]. 12/05/[address] Errol Garcia positive stool 11/22/2013 documented as of this encounter (statuses as of 07/15/2022) [facility] History of Past illness Narrative* Problem Noted Date Resolved Date Acute pain of both knees 06/05/2019 022 Routine general medical exam ination at a health care facility 07/04/2009 11/22/2013 Malignant neoplasm of female breast 07/30/2008 05/25/2016 Esophagitis, unspecified 07/23/2008 008 Other specified disorder of bladder 06/20/2007 11/25/2016 Unspecified sinusitis (chronic) 06/01/2007 05/25/2016 Dysuria 01/02/2007 05/25/2016 Irritable bowel syndrome 06/04/2006 017 Essential hypertension, benign 05/28/2005 0 09/01/2007 Primary localized osteoarthrosis, pelvic region and thigh 05/28/2005 06/04/2006 Diabetes 05/28/2005 06/27/2015 Unspecified sleep apnea 05/28/2005 12/08/19 14 Overview: PSG done 11/13/2002 @ [facility] . AHI 12 . Report sent to scan into [employer]. 12/05/[address] Errol Garcia positive stool 11/22/2013 documented as of this encounter (statuses as of 07/19/2022) [facility] History of Past illness Narrative* Problem Noted Date Resolved Date Acute pain of both knees 06/05/2019 022 Routine general medical exam ination at a health care facility 07/04/2009 11/22/2013 Malignant neoplasm of female breast 07/30/2008 05/25/2016 Esophagitis, unspecified 07/23/2008 008 Other specified disorder of bladder 06/20/2007 11/25/2016 Unspecified sinusitis (chronic) 06/01/2007 05/25/2016 Dysuria 01/02/2007 05/25/2016 Irritable bowel syndrome 06/04/2006 017 Essential hypertension, benign 05/28/2005 0 09/01/2007 Primary localized osteoarthrosis, pelvic region and thigh 05/28/2005 06/04/2006 Diabetes 05/28/2005 06/27/2015 Unspecified sleep apnea 05/28/2005 12/08/19 14 Overview: PSG done 11/13/2002 @ [facility] . AHI 12 . Report sent to scan into [employer]. 12/05/[address] Errol Garcia positive stool 11/22/2013 documented as of this encounter (statuses as of 07/20/2022) [facility] History of Past illness Narrative* Problem Noted Date Resolved Date Acute pain of both knees 06/05/2019 022 Routine general medical exam ination at a health care facility 07/04/2009 11/22/2013 Malignant neoplasm of female breast 07/30/2008 05/25/2016 Esophagitis, unspecified 07/23/2008 008 Other specified disorder of bladder 06/20/2007 11/25/2016 Unspecified sinusitis (chronic) 06/01/2007 05/25/2016 Dysuria 01/02/2007 05/25/2016 Irritable bowel syndrome 06/04/2006 017 Essential hypertension, benign 05/28/2005 0 09/01/2007 Primary localized osteoarthrosis, pelvic region and thigh 05/28/2005 06/04/2006 Diabetes 05/28/2005 06/27/2015 Unspecified sleep apnea 05/28/2005 12/08/19 14 Overview: PSG done 11/13/2002 @ [facility] . AHI 12 . Report sent to scan into [employer]. 12/05/[address] Errol Garcia positive stool 11/22/2013 documented as of this encounter (statuses as of 07/23/2022) [facility] History of Past illness Narrative* Problem Noted Date Resolved Date Acute pain of both knees 06/05/2019 022 Routine general medical exam ination at a health care facility 07/04/2009 11/22/2013 Malignant neoplasm of female breast 07/30/2008 05/25/2016 Esophagitis, unspecified 07/23/2008 008 Other specified disorder of bladder 06/20/2007 11/25/2016 Unspecified sinusitis (chronic) 06/01/2007 05/25/2016 Dysuria 01/02/2007 05/25/2016 Irritable bowel syndrome 06/04/2006 017 Essential hypertension, benign 05/28/2005 0 09/01/2007 Primary localized osteoarthrosis, pelvic region and thigh 05/28/2005 06/04/2006 Diabetes 05/28/2005 06/27/2015 Unspecified sleep apnea 05/28/2005 12/08/19 14 Overview: PSG done 11/13/2002 @ [facility] . AHI 12 . Report sent to scan into [employer]. 12/05/[address] Errol Garcia positive stool 11/22/2013 documented as of this encounter (statuses as of 08/06/2022) [facility] History of Past illness Narrative* Problem Noted Date Resolved Date Acute pain of both knees 06/05/2019 022 Routine general medical exam ination at a health care facility 07/04/2009 11/22/2013 Malignant neoplasm of female breast 07/30/2008 05/25/2016 Esophagitis, unspecified 07/23/2008 008 Other specified disorder of bladder 06/20/2007 11/25/2016 Unspecified sinusitis (chronic) 06/01/2007 05/25/2016 Dysuria 01/02/2007 05/25/2016 Irritable bowel syndrome 06/04/2006 017 Essential hypertension, benign 05/28/2005 0 09/01/2007 Primary localized osteoarthrosis, pelvic region and thigh 05/28/2005 06/04/2006 Diabetes 05/28/2005 06/27/2015 Unspecified sleep apnea 05/28/2005 12/08/19 14 Overview: PSG done 11/13/2002 @ [facility] . AHI 12 . Report sent to scan into [employer]. 12/05/[address] Errol Garcia positive stool 11/22/2013 documented as of this encounter (statuses as of 08/08/2022) [facility] History of Past illness Narrative* Problem Noted Date Resolved Date Acute pain of both knees 06/05/2019 022 Routine general medical exam ination at a health care facility 07/04/2009 11/22/2013 Malignant neoplasm of female breast 07/30/2008 05/25/2016 Esophagitis, unspecified 07/23/2008 008 Other specified disorder of bladder 06/20/2007 11/25/2016 Unspecified sinusitis (chronic) 06/01/2007 05/25/2016 Dysuria 01/02/2007 05/25/2016 Irritable bowel syndrome 06/04/2006 017 Essential hypertension, benign 05/28/2005 0 09/01/2007 Primary localized osteoarthrosis, pelvic region and thigh 05/28/2005 06/04/2006 Diabetes 05/28/2005 06/27/2015 Unspecified sleep apnea 05/28/2005 12/08/19 14 Overview: PSG done 11/13/2002 @ [facility] . AHI 12 . Report sent to scan into [employer]. 12/05/[address] Errol Garcia positive stool 11/22/2013 documented as of this encounter (statuses as of 10/07/2022) [facility] History of Past illness Narrative* Problem Noted Date Resolved Date Acute pain of both knees 06/05/2019 022 Routine general medical exam ination at a health care facility 07/04/2009 11/22/2013 Malignant neoplasm of female breast 07/30/2008 05/25/2016 Esophagitis, unspecified 07/23/2008 008 Other specified disorder of bladder 06/20/2007 11/25/2016 Unspecified sinusitis (chronic) 06/01/2007 05/25/2016 Dysuria 01/02/2007 05/25/2016 Irritable bowel syndrome 06/04/2006 017 Essential hypertension, benign 05/28/2005 0 09/01/2007 Primary localized osteoarthrosis, pelvic region and thigh 05/28/2005 06/04/2006 Diabetes 05/28/2005 06/27/2015 Unspecified sleep apnea 05/28/2005 12/08/19 14 Overview: PSG done 11/13/2002 @ [facility] . AHI 12 . Report sent to scan into [employer]. 12/05/[address] Errol Garcia positive stool 11/22/2013 documented as of this encounter (statuses as of 10/21/2022) [facility] History of Past illness Narrative* Problem Noted Date Resolved Date Acute pain of both knees 06/05/2019 022 Routine general medical exam ination at a health care facility 07/04/2009 11/22/2013 Malignant neoplasm of female breast 07/30/2008 05/25/2016 Esophagitis, unspecified 07/23/2008 008 Other specified disorder of bladder 06/20/2007 11/25/2016 Unspecified sinusitis (chronic) 06/01/2007 05/25/2016 Dysuria 01/02/2007 05/25/2016 Irritable bowel syndrome 06/04/2006 017 Essential hypertension, benign 05/28/2005 0 09/01/2007 Primary localized osteoarthrosis, pelvic region and thigh 05/28/2005 06/04/2006 Diabetes 05/28/2005 06/27/2015 Unspecified sleep apnea 05/28/2005 12/08/19 14 Overview: PSG done 11/13/2002 @ [facility] . AHI 12 . Report sent to scan into [employer]. 12/05/[address] Errol Garcia positive stool 11/22/2013 documented as of this encounter (statuses as of 11/01/2022) [facility] History of Past illness Narrative* Problem Noted Date Resolved Date Acute pain of both knees 06/05/2019 022 Routine general medical exam ination at a health care facility 07/04/2009 11/22/2013 Malignant neoplasm of female breast 07/30/2008 05/25/2016 Esophagitis, unspecified 07/23/2008 008 Other specified disorder of bladder 06/20/2007 11/25/2016 Unspecified sinusitis (chronic) 06/01/2007 05/25/2016 Dysuria 01/02/2007 05/25/2016 Irritable bowel syndrome 06/04/2006 017 Essential hypertension, benign 05/28/2005 0 09/01/2007 Primary localized osteoarthrosis, pelvic region and thigh 05/28/2005 06/04/2006 Diabetes 05/28/2005 06/27/2015 Unspecified sleep apnea 05/28/2005 12/08/19 14 Overview: PSG done 11/13/2002 @ [facility] . AHI 12 . Report sent to scan into [employer]. 12/05/[address] Errol Garcia positive stool 11/22/2013 documented as of this encounter (statuses as of 11/04/2022) [facility] History of Past illness Narrative* Problem Noted Date Resolved Date Acute pain of both knees 06/05/2019 022 Routine general medical exam ination at a health care facility 07/04/2009 11/22/2013 Malignant neoplasm of female breast 07/30/2008 05/25/2016 Esophagitis, unspecified 07/23/2008 008 Other specified disorder of bladder 06/20/2007 11/25/2016 Unspecified sinusitis (chronic) 06/01/2007 05/25/2016 Dysuria 01/02/2007 05/25/2016 Irritable bowel syndrome 06/04/2006 017 Essential hypertension, benign 05/28/2005 0 09/01/2007 Primary localized osteoarthrosis, pelvic region and thigh 05/28/2005 06/04/2006 Diabetes 05/28/2005 06/27/2015 Unspecified sleep apnea 05/28/2005 12/08/19 14 Overview: PSG done 11/13/2002 @ [facility] . AHI 12 . Report sent to scan into [employer]. 12/05/[address] Errol Garcia positive stool 11/22/2013 documented as of this encounter (statuses as of 12/03/2022) [facility] History of Past illness Narrative* Problem Noted Date Resolved Date Acute pain of both knees 06/05/2019 022 Routine general medical exam ination at a health care facility 07/04/2009 11/22/2013 Malignant neoplasm of female breast 07/30/2008 05/25/2016 Esophagitis, unspecified 07/23/2008 008 Other specified disorder of bladder 06/20/2007 11/25/2016 Unspecified sinusitis (chronic) 06/01/2007 05/25/2016 Dysuria 01/02/2007 05/25/2016 Irritable bowel syndrome 06/04/2006 017 Essential hypertension, benign 05/28/2005 0 09/01/2007 Primary localized osteoarthrosis, pelvic region and thigh 05/28/2005 06/04/2006 Diabetes 05/28/2005 06/27/2015 Unspecified sleep apnea 05/28/2005 12/08/19 14 Overview: PSG done 11/13/2002 @ [facility] . AHI 12 . Report sent to scan into [employer]. 12/05/[address] Errol Garcia positive stool 11/22/2013 documented as of this encounter (statuses as of 12/08/2022) [facility] History of Past illness Narrative* Problem Noted Date Resolved Date Acute pain of both knees 06/05/2019 022 Routine general medical exam ination at a health care facility 07/04/2009 11/22/2013 Malignant neoplasm of female breast 07/30/2008 05/25/2016 Esophagitis, unspecified 07/23/2008 008 Other specified disorder of bladder 06/20/2007 11/25/2016 Unspecified sinusitis (chronic) 06/01/2007 05/25/2016 Dysuria 01/02/2007 05/25/2016 Irritable bowel syndrome 06/04/2006 017 Essential hypertension, benign 05/28/2005 0 09/01/2007 Primary localized osteoarthrosis, pelvic region and thigh 05/28/2005 06/04/2006 Diabetes 05/28/2005 06/27/2015 Unspecified sleep apnea 05/28/2005 12/08/19 14 Overview: PSG done 11/13/2002 @ [facility] . AHI 12 . Report sent to scan into [employer]. 12/05/[address] Errol Garcia positive stool 11/22/2013 documented as of this encounter (statuses as of 12/08/2022) [facility] History of Past illness Narrative* Problem Noted Date Resolved Date Acute pain of both knees 06/05/2019 022 Routine general medical exam ination at a health care facility 07/04/2009 11/22/2013 Malignant neoplasm of female breast 07/30/2008 05/25/2016 Esophagitis, unspecified 07/23/2008 008 Other specified disorder of bladder 06/20/2007 11/25/2016 Unspecified sinusitis (chronic) 06/01/2007 05/25/2016 Dysuria 01/02/2007 05/25/2016 Irritable bowel syndrome 06/04/2006 017 Essential hypertension, benign 05/28/2005 0 09/01/2007 Primary localized osteoarthrosis, pelvic region and thigh 05/28/2005 06/04/2006 Diabetes 05/28/2005 06/27/2015 Unspecified sleep apnea 05/28/2005 12/08/19 14 Overview: PSG done 11/13/2002 @ [facility] . AHI 12 . Report sent to scan into [employer]. 12/05/[address] Errol Garcia positive stool 11/22/2013 documented as of this encounter (statuses as of 12/14/2022) [facility] History of Past illness Narrative* Problem Noted Date Resolved Date Acute pain of both knees 06/05/2019 022 Routine general medical exam ination at a health care facility 07/04/2009 11/22/2013 Malignant neoplasm of female breast 07/30/2008 05/25/2016 Esophagitis, unspecified 07/23/2008 008 Other specified disorder of bladder 06/20/2007 11/25/2016 Unspecified sinusitis (chronic) 06/01/2007 05/25/2016 Dysuria 01/02/2007 05/25/2016 Irritable bowel syndrome 06/04/2006 017 Essential hypertension, benign 05/28/2005 0 09/01/2007 Primary localized osteoarthrosis, pelvic region and thigh 05/28/2005 06/04/2006 Diabetes 05/28/2005 06/27/2015 Unspecified sleep apnea 05/28/2005 12/08/19 14 Overview: PSG done 11/13/2002 @ [facility] . AHI 12 . Report sent to scan into [employer]. 12/05/[address] Errol Garcia positive stool 11/22/2013 documented as of this encounter (statuses as of 12/20/2022) [facility] History of Past illness Narrative* Problem Noted Date Resolved Date Acute pain of both knees 06/05/2019 022 Routine general medical exam ination at a health care facility 07/04/2009 11/22/2013 Malignant neoplasm of female breast 07/30/2008 05/25/2016 Esophagitis, unspecified 07/23/2008 008 Other specified disorder of bladder 06/20/2007 11/25/2016 Unspecified sinusitis (chronic) 06/01/2007 05/25/2016 Dysuria 01/02/2007 05/25/2016 Irritable bowel syndrome 06/04/2006 017 Essential hypertension, benign 05/28/2005 0 09/01/2007 Primary localized osteoarthrosis, pelvic region and thigh 05/28/2005 06/04/2006 Diabetes 05/28/2005 06/27/2015 Unspecified sleep apnea 05/28/2005 12/08/19 14 Overview: PSG done 11/13/2002 @ [facility] . AHI 12 . Report sent to scan into [employer]. 12/05/[address] Errol Garcia positive stool 11/22/2013 documented as of this encounter (statuses as of 12/20/2022) [facility] History of Past illness Narrative* Problem Noted Date Resolved Date Acute pain of both knees 06/05/2019 022 Routine general medical exam ination at a health care facility 07/04/2009 11/22/2013 Malignant neoplasm of female breast 07/30/2008 05/25/2016 Esophagitis, unspecified 07/23/2008 008 Other specified disorder of bladder 06/20/2007 11/25/2016 Unspecified sinusitis (chronic) 06/01/2007 05/25/2016 Dysuria 01/02/2007 05/25/2016 Irritable bowel syndrome 06/04/2006 017 Essential hypertension, benign 05/28/2005 0 09/01/2007 Primary localized osteoarthrosis, pelvic region and thigh 05/28/2005 06/04/2006 Diabetes 05/28/2005 06/27/2015 Unspecified sleep apnea 05/28/2005 12/08/19 14 Overview: PSG done 11/13/2002 @ [facility] . AHI 12 . Report sent to scan into [employer]. 12/05/[address] Errol Garcia positive stool 11/22/2013 documented as of this encounter (statuses as of 12/22/2022) [facility] History of Past illness Narrative* Problem Noted Date Resolved Date Acute pain of both knees 06/05/2019 022 Routine general medical exam ination at a health care facility 07/04/2009 11/22/2013 Malignant neoplasm of female breast 07/30/2008 05/25/2016 Esophagitis, unspecified 07/23/2008 008 Other specified disorder of bladder 06/20/2007 11/25/2016 Unspecified sinusitis (chronic) 06/01/2007 05/25/2016 Dysuria 01/02/2007 05/25/2016 Irritable bowel syndrome 06/04/2006 017 Essential hypertension, benign 05/28/2005 0 09/01/2007 Primary localized osteoarthrosis, pelvic region and thigh 05/28/2005 06/04/2006 Diabetes 05/28/2005 06/27/2015 Unspecified sleep apnea 05/28/2005 12/08/19 14 Overview: PSG done 11/13/2002 @ [facility] . AHI 12 . Report sent to scan into [employer]. 12/05/[address] Errol Garcia positive stool 11/22/2013 documented as of this encounter (statuses as of 01/13/2023) [facility] History of Past illness Narrative* Problem Noted Date Resolved Date Acute pain of both knees 06/05/2019 022 Routine general medical exam ination at a health care facility 07/04/2009 11/22/2013 Malignant neoplasm of female breast 07/30/2008 05/25/2016 Esophagitis, unspecified 07/23/2008 008 Other specified disorder of bladder 06/20/2007 11/25/2016 Unspecified sinusitis (chronic) 06/01/2007 05/25/2016 Dysuria 01/02/2007 05/25/2016 Irritable bowel syndrome 06/04/2006 017 Essential hypertension, benign 05/28/2005 0 09/01/2007 Primary localized osteoarthrosis, pelvic region and thigh 05/28/2005 06/04/2006 Diabetes 05/28/2005 06/27/2015 Unspecified sleep apnea 05/28/2005 12/08/19 14 Overview: PSG done 11/13/2002 @ [facility] . AHI 12 . Report sent to scan into [employer]. 12/05/[address] Errol Garcia positive stool 11/22/2013 documented as of this encounter (statuses as of 01/14/2023) [facility] History of Past illness Narrative* Problem Noted Date Resolved Date Acute pain of both knees 06/05/2019 022 Routine general medical exam ination at a [facility] care facility 07/04/2009 11/22/2013 Malignant neoplasm of female breast 07/30/2008 05/25/2016 Esophagitis, unspecified 07/23/2008 008 Other specified disorder of bladder 06/20/2007 11/25/2016 Unspecified sinusitis (chronic) 06/01/2007 05/25/2016 Dysuria 01/02/2007 05/25/2016 Irritable bowel syndrome 06/04/2006 017 Essential hypertension, benign 05/28/2005 0 09/01/2007 Primary localized osteoarthrosis, pelvic region and thigh 05/28/2005 06/04/2006 Diabetes 05/28/2005 06/27/2015 Unspecified sleep apnea 05/28/2005 12/08/19 14 Overview: PSG done 11/13/2002 @ [facility] . AHI 12 . Report sent to scan into [employer]. 12/05/[address] Errol Garcia positive stool 11/22/2013 documented as of this encounter (statuses as of 01/19/2023) [facility] History of Past illness Narrative* Problem Noted Date Resolved Date Acute pain of both knees 06/05/2019 022 Routine general medical exam ination at a health care facility 07/04/2009 11/22/2013 Malignant neoplasm of female breast 07/30/2008 05/25/2016 Esophagitis, unspecified 07/23/2008 008 Other specified disorder of bladder 06/20/2007 11/25/2016 Unspecified sinusitis (chronic) 06/01/2007 05/25/2016 Dysuria 01/02/2007 05/25/2016 Irritable bowel syndrome 06/04/2006 017 Essential hypertension, benign 05/28/2005 0 09/01/2007 Primary localized osteoarthrosis, pelvic region and thigh 05/28/2005 06/04/2006 Diabetes 05/28/2005 06/27/2015 Unspecified sleep apnea 05/28/2005 12/08/19 14 Overview: PSG done 11/13/2002 @ [facility] . AHI 12 . Report sent to scan into [employer]. 12/05/[address] Errol Garcia positive stool 11/22/2013 documented as of this encounter (statuses as of 01/28/2023) [facility] History of Past illness Narrative* Problem Noted Date Resolved Date Acute pain of both knees 06/05/2019 022 Routine general medical exam ination at a health care facility 07/04/2009 11/22/2013 Malignant neoplasm of female breast 07/30/2008 05/25/2016 Esophagitis, unspecified 07/23/2008 008 Other specified disorder of bladder 06/20/2007 11/25/2016 Unspecified sinusitis (chronic) 06/01/2007 05/25/2016 Dysuria 01/02/2007 05/25/2016 Irritable bowel syndrome 06/04/2006 017 Essential hypertension, benign 05/28/2005 0 09/01/2007 Primary localized osteoarthrosis, pelvic region and thigh 05/28/2005 06/04/2006 Diabetes 05/28/2005 06/27/2015 Unspecified sleep apnea 05/28/2005 12/08/19 14 Overview: PSG done 11/13/2002 @ [facility] . AHI 12 . Report sent to scan into [employer]. 12/05/[address] Errol Garcia positive stool 11/22/2013 documented as of this encounter (statuses as of 02/01/2023) [facility] History of Past illness Narrative* Problem Noted Date Resolved Date Acute pain of both knees 06/05/2019 022 Routine general medical exam ination at a health care facility 07/04/2009 11/22/2013 Malignant neoplasm of female breast 07/30/2008 05/25/2016 Esophagitis, unspecified 07/23/2008 008 Other specified disorder of bladder 06/20/2007 11/25/2016 Unspecified sinusitis (chronic) 06/01/2007 05/25/2016 Dysuria 01/02/2007 05/25/2016 Irritable bowel syndrome 06/04/2006 017 Essential hypertension, benign 05/28/2005 0 09/01/2007 Primary localized osteoarthrosis, pelvic region and thigh 05/28/2005 06/04/2006 Diabetes 05/28/2005 06/27/2015 Unspecified sleep apnea 05/28/2005 12/08/19 14 Overview: PSG done 11/13/2002 @ [facility] . AHI 12 . Report sent to scan into [employer]. 12/05/[address] Errol Garcia positive stool 11/22/2013 documented as of this encounter (statuses as of 02/01/2023) [facility]2019 History of Past illness Narrative* Problem Noted Date Resolved Date Acute pain of both knees 06/05/2019 022 Routine general medical exam ination at a health care facility 07/04/2009 11/22/2013 Malignant neoplasm of female breast 07/30/2008 05/25/2016 Esophagitis, unspecified 07/23/2008 008 Other specified disorder of bladder 06/20/2007 11/25/2016 Unspecified sinusitis (chronic) 06/01/2007 05/25/2016 Dysuria 01/02/2007 05/25/2016 Irritable bowel syndrome 06/04/2006 017 Essential hypertension, benign 05/28/2005 0 09/01/2007 Primary localized osteoarthrosis, pelvic region and thigh 05/28/2005 06/04/2006 Diabetes 05/28/2005 06/27/2015 Unspecified sleep apnea 05/28/2005 12/08/19 14 Overview: PSG done 11/13/2002 @ [facility] . AHI 12 . Report sent to scan into [employer]. 12/05/[address] Errol Garcia positive stool 11/22/2013 documented as of this encounter (statuses as of 02/08/2023) [facility] History of Past illness Narrative* Problem Noted Date Resolved Date Acute pain of both knees 06/05/2019 022 Routine general medical exam ination at a health care facility 07/04/2009 11/22/2013 Malignant neoplasm of female breast 07/30/2008 05/25/2016 Esophagitis, unspecified 07/23/2008 008 Other specified disorder of bladder 06/20/2007 11/25/2016 Unspecified sinusitis (chronic) 06/01/2007 05/25/2016 Dysuria 01/02/2007 05/25/2016 Irritable bowel syndrome 06/04/2006 017 Essential hypertension, benign 05/28/2005 0 09/01/2007 Primary localized osteoarthrosis, pelvic region and thigh 05/28/2005 06/04/2006 Diabetes 05/28/2005 06/27/2015 Unspecified sleep apnea 05/28/2005 12/08/19 14 Overview: PSG done 11/13/2002 @ [facility] . AHI 12 . Report sent to scan into [employer]. 12/05/[address] Errol Garcia positive stool 11/22/2013 documented as of this encounter (statuses as of 02/11/2023) [facility] History of Past illness Narrative* Problem Noted Date Resolved Date Acute pain of both knees 06/05/2019 022 Routine general medical exam ination at a health care facility 07/04/2009 11/22/2013 Malignant neoplasm of female breast 07/30/2008 05/25/2016 Esophagitis, unspecified 07/23/2008 008 Other specified disorder of bladder 06/20/2007 11/25/2016 Unspecified sinusitis (chronic) 06/01/2007 05/25/2016 Dysuria 01/02/2007 05/25/2016 Irritable bowel syndrome 06/04/2006 017 Essential hypertension, benign 05/28/2005 0 09/01/2007 Primary localized osteoarthrosis, pelvic region and thigh 05/28/2005 06/04/2006 Diabetes 05/28/2005 06/27/2015 Unspecified sleep apnea 05/28/2005 12/08/19 14 Overview: PSG done 11/13/2002 @ [facility] . AHI 12 . Report sent to scan into [employer]. 12/05/[address] Errol Garcia positive stool 11/22/2013 documented as of this encounter (statuses as of 02/18/2023) [facility] History of Past illness Narrative* Problem Noted Date Resolved Date Acute pain of both knees 06/05/2019 022 Routine general medical exam ination at a health care facility 07/04/2009 11/22/2013 Malignant neoplasm of female breast 07/30/2008 05/25/2016 Esophagitis, unspecified 07/23/2008 008 Other specified disorder of bladder 06/20/2007 11/25/2016 Unspecified sinusitis (chronic) 06/01/2007 05/25/2016 Dysuria 01/02/2007 05/25/2016 Irritable bowel syndrome 06/04/2006 017 Essential hypertension, benign 05/28/2005 0 09/01/2007 Primary localized osteoarthrosis, pelvic region and thigh 05/28/2005 06/04/2006 Diabetes 05/28/2005 06/27/2015 Unspecified sleep apnea 05/28/2005 12/08/19 14 Overview: PSG done 11/13/2002 @ [facility] . AHI 12 . Report sent to scan into [employer]. 12/05/[address] Errol Garcia positive stool 11/22/2013 documented as of this encounter (statuses as of 02/18/2023) [facility] History of Past illness Narrative* Problem Noted Date Diagnosed Date Resolved Date Acute pain of both knees 06/05/201910/2021 Routine general medical exam ination at a health care facility 07/04/2009 11/22/2013 Malignant neoplasm of female breast 07/30/2008 05/25/2016 Esophagitis, unspecified 07/23/2008 Other specified disorder of bladder 06/20/2007 11/25/2016 Unspecified sinusitis (chronic) 06/01/2007 05/25/2016 Dysuria 01/02/2007 05/25/2016 Irritable bowel syndrome 06/04/2006 Essential hypertension, benign 05/28/2005 09/01/2007 Primary localized osteoarthr osis, pelvic region and thigh 05/28/2005 06/04/2006 Diabetes 05/28/2005 06/27/2015 Unspecified sleep apnea 05/28/200511/14 Overview: PSG done 11/13/2002 @ [facility] . AHI 12 . Report sent to scan into [employer]. 12/05/[address] Errol Garcia positive stool 11/23/19 14 documented as of this encounter (statuses as of 02/19/2023) [facility] History of Past illness Narrative* Problem Noted Date Diagnosed Date Resolved Date Acute pain of both knees 06/05/201910/2021 Routine general medical exam ination at a health care facility 07/04/2009 11/22/2013 Malignant neoplasm of female breast 07/30/2008 05/25/2016 Esophagitis, unspecified 07/23/2008 Other specified disorder of bladder 06/20/2007 11/25/2016 Unspecified sinusitis (chronic) 06/01/2007 05/25/2016 Dysuria 01/02/2007 05/25/2016 Irritable bowel syndrome 06/04/2006 Essential hypertension, benign 05/28/2005 09/01/2007 Primary localized osteoarthr osis, pelvic region and thigh 05/28/2005 06/04/2006 Diabetes 05/28/2005 06/27/2015 Unspecified sleep apnea 05/28/200511/14 Overview: PSG done 11/13/2002 @ [facility] . AHI 12 . Report sent to scan into [employer]. 12/05/[address] Errol Garcia positive stool 11/23/19 14 documented as of this encounter (statuses as of 03/10/2023) [facility] History of Past illness Narrative* Problem Noted Date Diagnosed Date Resolved Date Acute pain of both knees 06/05/201910/2021 Routine general medical exam ination at a health care facility 07/04/2009 11/22/2013 Malignant neoplasm of female breast 07/30/2008 05/25/2016 Esophagitis, unspecified 07/23/2008 Other specified disorder of bladder 06/20/2007 11/25/2016 Unspecified sinusitis (chronic) 06/01/2007 05/25/2016 Dysuria 01/02/2007 05/25/2016 Irritable bowel syndrome 06/04/2006 Essential hypertension, benign 05/28/2005 09/01/2007 Primary localized osteoarthr osis, pelvic region and thigh 05/28/2005 06/04/2006 Diabetes 05/28/2005 06/27/2015 Unspecified sleep apnea 05/28/200511/14 Overview: PSG done 11/13/2002 @ [facility] . AHI 12 . Report sent to scan into [employer]. 12/05/[address] Norton Heme positive stool 11/23/19 14 documented as of this encounter (statuses as of 04/06/2023) [facility] History of Past illness Narrative* Problem Noted Date Diagnosed Date Resolved Date Acute pain of both knees 06/05/201910/2021 Routine general medical exam ination at a health care facility 07/04/2009 11/22/2013 Malignant neoplasm of female breast 07/30/2008 05/25/2016 Esophagitis, unspecified 07/23/2008 Other specified disorder of bladder 06/20/2007 11/25/2016 Unspecified sinusitis (chronic) 06/01/2007 05/25/2016 Dysuria 01/02/2007 05/25/2016 Irritable bowel syndrome 06/04/2006 Essential hypertension, benign 05/28/2005 09/01/2007 Primary localized osteoarthr osis, pelvic region and thigh 05/28/2005 06/04/2006 Diabetes 05/28/2005 06/27/2015 Unspecified sleep apnea 05/28/200511/14 Overview: PSG done 11/13/2002 @ [facility] . AHI 12 . Report sent to scan into [employer]. 12/05/[address] Errol Garcia positive stool 11/23/19 14 documented as of this encounter (statuses as of 04/12/2023) [facility] History of Past illness Narrative* Problem Noted Date Diagnosed Date Resolved Date Acute pain of both knees 06/05/201910/2021 Routine general medical exam ination at a health care facility 07/04/2009 11/22/2013 Malignant neoplasm of female breast 07/30/2008 05/25/2016 Esophagitis, unspecified 07/23/2008 Other specified disorder of bladder 06/20/2007 11/25/2016 Unspecified sinusitis (chronic) 06/01/2007 05/25/2016 Dysuria 01/02/2007 05/25/2016 Irritable bowel syndrome 06/04/2006 Essential hypertension, benign 05/28/2005 09/01/2007 Primary localized osteoarthr osis, pelvic region and thigh 05/28/2005 06/04/2006 Diabetes 05/28/2005 06/27/2015 Unspecified sleep apnea 05/28/200511/14 Overview: PSG done 11/13/2002 @ [facility] . AHI 12 . Report sent to scan into [employer]. 12/05/[address] Errol Garcia positive stool 11/23/19 14 documented as of this encounter (statuses as of 05/07/2023) [facility] History of Past illness Narrative* Problem Noted Date Diagnosed Date Resolved Date Acute pain of both knees 06/05/201910/2021 Routine general medical exam ination at a health care facility 07/04/2009 11/22/2013 Malignant neoplasm of female breast 07/30/2008 05/25/2016 Esophagitis, unspecified 07/23/2008 Other specified disorder of bladder 06/20/2007 11/25/2016 Unspecified sinusitis (chronic) 06/01/2007 05/25/2016 Dysuria 01/02/2007 05/25/2016 Irritable bowel syndrome 06/04/2006 Essential hypertension, benign 05/28/2005 09/01/2007 Primary localized osteoarthr osis, pelvic region and thigh 05/28/2005 06/04/2006 Diabetes 05/28/2005 06/27/2015 Unspecified sleep apnea 05/28/200511/14 Overview: PSG done 11/13/2002 @ [facility] . AHI 12 . Report sent to scan into [employer]. 12/05/[address] Errol Garcia positive stool 11/23/19 14 documented as of this encounter (statuses as of 05/07/2023) [facility] History of Past illness Narrative* Problem Noted Date Diagnosed Date Resolved Date Acute pain of both knees 06/05/201910/2021 Routine general medical exam ination at a health care facility 07/04/2009 11/22/2013 Malignant neoplasm of female breast 07/30/2008 05/25/2016 Esophagitis, unspecified 07/23/2008 Other specified disorder of bladder 06/20/2007 11/25/2016 Unspecified sinusitis (chronic) 06/01/2007 05/25/2016 Dysuria 01/02/2007 05/25/2016 Irritable bowel syndrome 06/04/2006 Essential hypertension, benign 05/28/2005 09/01/2007 Primary localized osteoarthr osis, pelvic region and thigh 05/28/2005 06/04/2006 Diabetes 05/28/2005 06/27/2015 Unspecified sleep apnea 05/28/200511/14 Overview: PSG done 11/13/2002 @ [facility] . AHI 12 . Report sent to scan into [employer]. 12/05/[address] Errol Garcia positive stool 11/23/19 14 documented as of this encounter (statuses as of 05/10/2023) [facility] History of Past illness Narrative* Problem Noted Date Diagnosed Date Resolved Date Acute pain of both knees 06/05/201910/2021 Routine general medical exam ination at a health care facility 07/04/2009 11/22/2013 Malignant neoplasm of female breast 07/30/2008 05/25/2016 Esophagitis, unspecified 07/23/2008 Other specified disorder of bladder 06/20/2007 11/25/2016 Unspecified sinusitis (chronic) 06/01/2007 05/25/2016 Dysuria 01/02/2007 05/25/2016 Irritable bowel syndrome 06/04/2006 Essential hypertension, benign 05/28/2005 09/01/2007 Primary localized osteoarthr osis, pelvic region and thigh 05/28/2005 06/04/2006 Diabetes 05/28/2005 06/27/2015 Unspecified sleep apnea 05/28/200511/14 Overview: PSG done 11/13/2002 @ [facility] . AHI 12 . Report sent to scan into [employer]. 12/05/[address] Errol Garcia positive stool 11/23/19 14 documented as of this encounter (statuses as of 05/13/2023) [facility] History of Past illness Narrative* Problem Noted Date Diagnosed Date Resolved Date Acute pain of both knees 06/05/201910/2021 Routine general medical exam ination at a health care facility 07/04/2009 11/22/2013 Malignant neoplasm of female breast 07/30/2008 05/25/2016 Esophagitis, unspecified 07/23/2008 Other specified disorder of bladder 06/20/2007 11/25/2016 Unspecified sinusitis (chronic) 06/01/2007 05/25/2016 Dysuria 01/02/2007 05/25/2016 Irritable bowel syndrome 06/04/2006 Essential hypertension, benign 05/28/2005 09/01/2007 Primary localized osteoarthr osis, pelvic region and thigh 05/28/2005 06/04/2006 Diabetes 05/28/2005 06/27/2015 Unspecified sleep apnea 05/28/200511/14 Overview: PSG done 11/13/2002 @ [facility] . AHI 12 . Report sent to scan into [employer]. 12/05/[address] Errol Garcia positive stool 11/23/19 14 documented as of this encounter (statuses as of 05/14/2023) [facility] History of Past illness Narrative* Problem Noted Date Diagnosed Date Resolved Date Acute pain of both knees 06/05/201910/2021 Routine general medical exam ination at a health care facility 07/04/2009 11/22/2013 Malignant neoplasm of female breast 07/30/2008 05/25/2016 Esophagitis, unspecified 07/23/2008 Other specified disorder of bladder 06/20/2007 11/25/2016 Unspecified sinusitis (chronic) 06/01/2007 05/25/2016 Dysuria 01/02/2007 05/25/2016 Irritable bowel syndrome 06/04/2006 Essential hypertension, benign 05/28/2005 09/01/2007 Primary localized osteoarthr osis, pelvic region and thigh 05/28/2005 06/04/2006 Diabetes 05/28/2005 06/27/2015 Unspecified sleep apnea 05/28/200511/14 Overview: PSG done 11/13/2002 @ [facility] . AHI 12 . Report sent to scan into [employer]. 12/05/[address] Errol Garcia positive stool 11/23/19 14 documented as of this encounter (statuses as of 05/14/2023) [facility] History of Past illness Narrative* Problem Noted Date Diagnosed Date Resolved Date Acute pain of both knees 06/05/201910/2021 Routine general medical exam ination at a health care facility 07/04/2009 11/22/2013 Malignant neoplasm of female breast 07/30/2008 05/25/2016 Esophagitis, unspecified 07/23/2008 Other specified disorder of bladder 06/20/2007 11/25/2016 Unspecified sinusitis (chronic) 06/01/2007 05/25/2016 Dysuria 01/02/2007 05/25/2016 Irritable bowel syndrome 06/04/2006 Essential hypertension, benign 05/28/2005 09/01/2007 Primary localized osteoarthr osis, pelvic region and thigh 05/28/2005 06/04/2006 Diabetes 05/28/2005 06/27/2015 Unspecified sleep apnea 05/28/200511/14 Overview: PSG done 11/13/2002 @ [facility] . AHI 12 . Report sent to scan into [employer]. 12/05/[address] Errol Garcia positive stool 11/23/19 14 documented as of this encounter (statuses as of 05/23/2023) [facility] History of Past illness Narrative* Problem Noted Date Diagnosed Date Resolved Date Acute pain of both knees 06/05/201910/2021 Routine general medical exam ination at a health care facility 07/04/2009 11/22/2013 Malignant neoplasm of female breast 07/30/2008 05/25/2016 Esophagitis, unspecified 07/23/2008 Other specified disorder of bladder 06/20/2007 11/25/2016 Unspecified sinusitis (chronic) 06/01/2007 05/25/2016 Dysuria 01/02/2007 05/25/2016 Irritable bowel syndrome 06/04/2006 Essential hypertension, benign 05/28/2005 09/01/2007 Primary localized osteoarthr osis, pelvic region and thigh 05/28/2005 06/04/2006 Diabetes 05/28/2005 06/27/2015 Unspecified sleep apnea 05/28/200511/14 Overview: PSG done 11/13/2002 @ [facility] . AHI 12 . Report sent to scan into [employer]. 12/05/[address] Norton Heme positive stool 11/23/19 14 documented as of this encounter (statuses as of 05/31/2023) [facility] History of Past illness Narrative* Problem Noted Date Diagnosed Date Resolved Date Acute pain of both knees 06/05/201910/2021 Routine general medical exam ination at a health care facility 07/04/2009 11/22/2013 Malignant neoplasm of female breast 07/30/2008 05/25/2016 Esophagitis, unspecified 07/23/2008 Other specified disorder of bladder 06/20/2007 11/25/2016 Unspecified sinusitis (chronic) 06/01/2007 05/25/2016 Dysuria 01/02/2007 05/25/2016 Irritable bowel syndrome 06/04/2006 Essential hypertension, benign 05/28/2005 09/01/2007 Primary localized osteoarthr osis, pelvic region and thigh 05/28/2005 06/04/2006 Diabetes 05/28/2005 06/27/2015 Unspecified sleep apnea 05/28/200511/14 Overview: PSG done 11/13/2002 @ [facility] . AHI 12 . Report sent to scan into [employer]. 12/05/[address] Errol Garcia positive stool 11/23/19 14 documented as of this encounter (statuses as of 06/01/2023) [facility] History of Past illness Narrative* Problem Noted Date Diagnosed Date Resolved Date Acute pain of both knees 06/05/201910/2021 Routine general medical exam ination at a health care facility 07/04/2009 11/22/2013 Malignant neoplasm of female breast 07/30/2008 05/25/2016 Esophagitis, unspecified 07/23/2008 Other specified disorder of bladder 06/20/2007 11/25/2016 Unspecified sinusitis (chronic) 06/01/2007 05/25/2016 Dysuria 01/02/2007 05/25/2016 Irritable bowel syndrome 06/04/2006 Essential hypertension, benign 05/28/2005 09/01/2007 Primary localized osteoarthr osis, pelvic region and thigh 05/28/2005 06/04/2006 Diabetes 05/28/2005 06/27/2015 Unspecified sleep apnea 05/28/200511/14 Overview: PSG done 11/13/2002 @ [facility] . AHI 12 . Report sent to scan into [employer]. 12/05/[address] Errol Garcia positive stool 11/23/19 14 documented as of this encounter (statuses as of 06/14/2023) [facility] History of Past illness Narrative* Problem Noted Date Diagnosed Date Resolved Date Acute pain of both knees 06/05/201910/2021 Routine general medical exam ination at a health care facility 07/04/2009 11/22/2013 Malignant neoplasm of female breast 07/30/2008 05/25/2016 Esophagitis, unspecified 07/23/2008 Other specified disorder of bladder 06/20/2007 11/25/2016 Unspecified sinusitis (chronic) 06/01/2007 05/25/2016 Dysuria 01/02/2007 05/25/2016 Irritable bowel syndrome 06/04/2006 Essential hypertension, benign 05/28/2005 09/01/2007 Primary localized osteoarthr osis, pelvic region and thigh 05/28/2005 06/04/2006 Diabetes 05/28/2005 06/27/2015 Unspecified sleep apnea 05/28/200511/14 Overview: PSG done 11/13/2002 @ [facility] . AHI 12 . Report sent to scan into [employer]. 12/05/[address] Errol Garcia positive stool 11/23/19 14 documented as of this encounter (statuses as of 06/14/2023) [facility] History of Past illness Narrative* Problem Noted Date Diagnosed Date Resolved Date Acute pain of both knees 06/05/201910/2021 Routine general medical exam ination at a health care facility 07/04/2009 11/22/2013 Malignant neoplasm of female breast 07/30/2008 05/25/2016 Esophagitis, unspecified 07/23/2008 Other specified disorder of bladder 06/20/2007 11/25/2016 Unspecified sinusitis (chronic) 06/01/2007 05/25/2016 Dysuria 01/02/2007 05/25/2016 Irritable bowel syndrome 06/04/2006 Essential hypertension, benign 05/28/2005 09/01/2007 Primary localized osteoarthr osis, pelvic region and thigh 05/28/2005 06/04/2006 Diabetes 05/28/2005 06/27/2015 Unspecified sleep apnea 05/28/200511/14 Overview: PSG done 11/13/2002 @ [facility] . AHI 12 . Report sent to scan into [employer]. 12/05/[address] Errol Garcia positive stool 11/23/19 14 documented as of this encounter (statuses as of 06/15/2023) [facility] History of Past illness Narrative* Problem Noted Date Diagnosed Date Resolved Date Acute pain of both knees 06/05/201910/2021 Routine general medical exam ination at a health care facility 07/04/2009 11/22/2013 Malignant neoplasm of female breast 07/30/2008 05/25/2016 Esophagitis, unspecified 07/23/2008 Other specified disorder of bladder 06/20/2007 11/25/2016 Unspecified sinusitis (chronic) 06/01/2007 05/25/2016 Dysuria 01/02/2007 05/25/2016 Irritable bowel syndrome 06/04/2006 Essential hypertension, benign 05/28/2005 09/01/2007 Primary localized osteoarthr osis, pelvic region and thigh 05/28/2005 06/04/2006 Diabetes 05/28/2005 06/27/2015 Unspecified sleep apnea 05/28/200511/14 Overview: PSG done 11/13/2002 @ [facility] . AHI 12 . Report sent to scan into [employer]. 12/05/[address] Errol Garcia positive stool 11/23/19 14 documented as of this encounter (statuses as of 06/15/2023) [facility] History of Past illness Narrative* Problem Noted Date Diagnosed Date Resolved Date Acute pain of both knees 06/05/201910/2021 Routine general medical exam ination at a health care facility 07/04/2009 11/22/2013 Malignant neoplasm of female breast 07/30/2008 05/25/2016 Esophagitis, unspecified 07/23/2008 Other specified disorder of bladder 06/20/2007 11/25/2016 Unspecified sinusitis (chronic) 06/01/2007 05/25/2016 Dysuria 01/02/2007 05/25/2016 Irritable bowel syndrome 06/04/2006 Essential hypertension, benign 05/28/2005 09/01/2007 Primary localized osteoarthr osis, pelvic region and thigh 05/28/2005 06/04/2006 Diabetes 05/28/2005 06/27/2015 Unspecified sleep apnea 05/28/200511/14 Overview: PSG done 11/13/2002 @ [facility] . AHI 12 . Report sent to scan into [employer]. 12/05/[address] Errol Garcia positive stool 11/23/19 14 documented as of this encounter (statuses as of 06/19/2023) [facility] History of Past illness Narrative* Problem Noted Date Diagnosed Date Resolved Date Acute pain of both knees 06/05/201910/2021 Routine general medical exam ination at a health care facility 07/04/2009 11/22/2013 Malignant neoplasm of female breast 07/30/2008 05/25/2016 Esophagitis, unspecified 07/23/2008 Other specified disorder of bladder 06/20/2007 11/25/2016 Unspecified sinusitis (chronic) 06/01/2007 05/25/2016 Dysuria 01/02/2007 05/25/2016 Irritable bowel syndrome 06/04/2006 Essential hypertension, benign 05/28/2005 09/01/2007 Primary localized osteoarthr osis, pelvic region and thigh 05/28/2005 06/04/2006 Diabetes 05/28/2005 06/27/2015 Unspecified sleep apnea 05/28/200511/14 Overview: PSG done 11/13/2002 @ [facility] . AHI 12 . Report sent to scan into [employer]. 12/05/[address] Errol Garcia positive stool 11/23/19 14 documented as of this encounter (statuses as of 06/19/2023) [facility] History of Past illness Narrative* Problem Noted Date Diagnosed Date Resolved Date Acute pain of both knees 06/05/201910/2021 Routine general medical exam ination at a health care facility 07/04/2009 11/22/2013 Malignant neoplasm of female breast 07/30/2008 05/25/2016 Esophagitis, unspecified 07/23/2008 Other specified disorder of bladder 06/20/2007 11/25/2016 Unspecified sinusitis (chronic) 06/01/2007 05/25/2016 Dysuria 01/02/2007 05/25/2016 Irritable bowel syndrome 06/04/2006 Essential hypertension, benign 05/28/2005 09/01/2007 Primary localized osteoarthr osis, pelvic region and thigh 05/28/2005 06/04/2006 Diabetes 05/28/2005 06/27/2015 Unspecified sleep apnea 05/28/200511/14 Overview: PSG done 11/13/2002 @ [facility] . AHI 12 . Report sent to scan into [employer]. 12/05/[address] Errol Garcia positive stool 11/23/19 14 documented as of this encounter (statuses as of 06/19/2023) [facility] History of Past illness Narrative* Problem Noted Date Diagnosed Date Resolved Date Acute pain of both knees 06/05/201910/2021 Routine general medical exam ination at a health care facility 07/04/2009 11/22/2013 Malignant neoplasm of female breast 07/30/2008 05/25/2016 Esophagitis, unspecified 07/23/2008 Other specified disorder of bladder 06/20/2007 11/25/2016 Unspecified sinusitis (chronic) 06/01/2007 05/25/2016 Dysuria 01/02/2007 05/25/2016 Irritable bowel syndrome 06/04/2006 Essential hypertension, benign 05/28/2005 09/01/2007 Primary localized osteoarthr osis, pelvic region and thigh 05/28/2005 06/04/2006 Diabetes 05/28/2005 06/27/2015 Unspecified sleep apnea 05/28/200511/14 Overview: PSG done 11/13/2002 @ [facility] . AHI 12 . Report sent to scan into [employer]. 12/05/[address] Norton Heme positive stool 11/23/19 14 documented as of this encounter (statuses as of 06/19/2023) [facility] History of Past illness Narrative* Problem Noted Date Diagnosed Date Resolved Date Acute pain of both knees 06/05/201910/2021 Routine general medical exam ination at a health care facility 07/04/2009 11/22/2013 Malignant neoplasm of female breast 07/30/2008 05/25/2016 Esophagitis, unspecified 07/23/2008 Other specified disorder of bladder 06/20/2007 11/25/2016 Unspecified sinusitis (chronic) 06/01/2007 05/25/2016 Dysuria 01/02/2007 05/25/2016 Irritable bowel syndrome 06/04/2006 Essential hypertension, benign 05/28/2005 09/01/2007 Primary localized osteoarthr osis, pelvic region and thigh 05/28/2005 06/04/2006 Diabetes 05/28/2005 06/27/2015 Unspecified sleep apnea 05/28/200511/14 Overview: PSG done 11/13/2002 @ [facility] . AHI 12 . Report sent to scan into Epic. 12/05/[address] Errol Garcia positive stool 11/23/19 14 documented as of this encounter (statuses as of 06/21/2023) [facility] History of Past illness Narrative* Problem Noted Date Diagnosed Date Resolved Date Acute pain of both knees 06/05/201910/2021 Routine general medical exam ination at a health care facility 07/04/2009 11/22/2013 Malignant neoplasm of female breast 07/30/2008 05/25/2016 Esophagitis, unspecified 07/23/2008 Other specified disorder of bladder 06/20/2007 11/25/2016 Unspecified sinusitis (chronic) 06/01/2007 05/25/2016 Dysuria 01/02/2007 05/25/2016 Irritable bowel syndrome 06/04/2006 Essential hypertension, benign 05/28/2005 09/01/2007 Primary localized osteoarthr osis, pelvic region and thigh 05/28/2005 06/04/2006 Diabetes 05/28/2005 06/27/2015 Unspecified sleep apnea 05/28/200511/14 Overview: PSG done 11/13/2002 @ [facility] . AHI 12 . Report sent to scan into [employer]. 12/05/[address] Errol Garcia positive stool 11/23/19 14 documented as of this encounter (statuses as of 06/21/2023) [facility] History of Past illness Narrative* Problem Noted Date Diagnosed Date Resolved Date Acute pain of both knees 06/05/201910/2021 Routine general medical exam ination at a health care facility 07/04/2009 11/22/2013 Malignant neoplasm of female breast 07/30/2008 05/25/2016 Esophagitis, unspecified 07/23/2008 Other specified disorder of bladder 06/20/2007 11/25/2016 Unspecified sinusitis (chronic) 06/01/2007 05/25/2016 Dysuria 01/02/2007 05/25/2016 Irritable bowel syndrome 06/04/2006 Essential hypertension, benign 05/28/2005 09/01/2007 Primary localized osteoarthr osis, pelvic region and thigh 05/28/2005 06/04/2006 Diabetes 05/28/2005 06/27/2015 Unspecified sleep apnea 05/28/200511/14 Overview: PSG done 11/13/2002 @ [facility] . AHI 12 . Report sent to scan into Epic. 12/05/[address] Errol Garcia positive stool 11/23/19 14 documented as of this encounter (statuses as of 06/22/2023) [facility] History of Past illness Narrative* Problem Noted Date Diagnosed Date Resolved Date Acute pain of both knees 06/05/201910/2021 Routine general medical exam ination at a health care facility 07/04/2009 11/22/2013 Malignant neoplasm of female breast 07/30/2008 05/25/2016 Esophagitis, unspecified 07/23/2008 Other specified disorder of bladder 06/20/2007 11/25/2016 Unspecified sinusitis (chronic) 06/01/2007 05/25/2016 Dysuria 01/02/2007 05/25/2016 Irritable bowel syndrome 06/04/2006 Essential hypertension, benign 05/28/2005 09/01/2007 Primary localized osteoarthr osis, pelvic region and thigh 05/28/2005 06/04/2006 Diabetes 05/28/2005 06/27/2015 Unspecified sleep apnea 05/28/200511/14 Overview: PSG done 11/13/2002 @ [facility] . AHI 12 . Report sent to scan into Epic. 12/05/[address] Errol Garcia positive stool 11/23/19 14 documented as of this encounter (statuses as of 06/22/2023) [facility] History of Past illness Narrative* Problem Noted Date Diagnosed Date Resolved Date Acute pain of both knees 06/05/201910/2021 Routine general medical exam ination at a health care facility 07/04/2009 11/22/2013 Malignant neoplasm of female breast 07/30/2008 05/25/2016 Esophagitis, unspecified 07/23/2008 Other specified disorder of bladder 06/20/2007 11/25/2016 Unspecified sinusitis (chronic) 06/01/2007 05/25/2016 Dysuria 01/02/2007 05/25/2016 Irritable bowel syndrome 06/04/2006 Essential hypertension, benign 05/28/2005 09/01/2007 Primary localized osteoarthr osis, pelvic region and thigh 05/28/2005 06/04/2006 Diabetes 05/28/2005 06/27/2015 Unspecified sleep apnea 05/28/200511/14 Overview: PSG done 11/13/2002 @ [facility] . AHI 12 . Report sent to scan into [employer]. 12/05/[address] Errol Garcia positive stool 11/23/19 14 documented as of this encounter (statuses as of 06/28/2023) [facility] History of Past illness Narrative* Problem Noted Date Diagnosed Date Resolved Date Acute pain of both knees 06/05/201910/2021 Routine general medical exam ination at a [facility] care facility 07/04/2009 11/22/2013 Malignant neoplasm of female breast 07/30/2008 05/25/2016 Esophagitis, unspecified 07/23/2008 Other specified disorder of bladder 06/20/2007 11/25/2016 Unspecified sinusitis (chronic) 06/01/2007 05/25/2016 Dysuria 01/02/2007 05/25/2016 Irritable bowel syndrome 06/04/2006 Essential hypertension, benign 05/28/2005 09/01/2007 Primary localized osteoarthr osis, pelvic region and thigh 05/28/2005 06/04/2006 Diabetes 05/28/2005 06/27/2015 Unspecified sleep apnea 05/28/200511/14 Overview: PSG done 11/13/2002 @ [facility] . AHI 12 . Report sent to scan into [employer]. 12/05/[address] Errol Garcia positive stool 11/23/19 14 documented as of this encounter (statuses as of 06/29/2023) [facility] History of Past illness Narrative* Problem Noted Date Diagnosed Date Resolved Date Acute pain of both knees 06/05/201910/2021 Routine general medical exam ination at a health care facility 07/04/2009 11/22/2013 Malignant neoplasm of female breast 07/30/2008 05/25/2016 Esophagitis, unspecified 07/23/2008 Other specified disorder of bladder 06/20/2007 11/25/2016 Unspecified sinusitis (chronic) 06/01/2007 05/25/2016 Dysuria 01/02/2007 05/25/2016 Irritable bowel syndrome 06/04/2006 Essential hypertension, benign 05/28/2005 09/01/2007 Primary localized osteoarthr osis, pelvic region and thigh 05/28/2005 06/04/2006 Diabetes 05/28/2005 06/27/2015 Unspecified sleep apnea 05/28/200511/14 Overview: PSG done 11/13/2002 @ [facility] . AHI 12 . Report sent to scan into [employer]. 12/05/[address] Errol Garcia positive stool 11/23/19 14 documented as of this encounter (statuses as of 07/01/2023) [facility] History of Past illness Narrative* Problem Noted Date Diagnosed Date Resolved Date Acute pain of both knees 06/05/201910/2021 Routine general medical exam ination at a health care facility 07/04/2009 11/22/2013 Malignant neoplasm of female breast 07/30/2008 05/25/2016 Esophagitis, unspecified 07/23/2008 Other specified disorder of bladder 06/20/2007 11/25/2016 Unspecified sinusitis (chronic) 06/01/2007 05/25/2016 Dysuria 01/02/2007 05/25/2016 Irritable bowel syndrome 06/04/2006 Essential hypertension, benign 05/28/2005 09/01/2007 Primary localized osteoarthr osis, pelvic region and thigh 05/28/2005 06/04/2006 Diabetes 05/28/2005 06/27/2015 Unspecified sleep apnea 05/28/200511/14 Overview: PSG done 11/13/2002 @ [facility] . AHI 12 . Report sent to scan into [employer]. 12/05/[address] Errol Garcia positive stool 11/23/19 14 documented as of this encounter (statuses as of 07/02/2023) [facility] History of Past illness Narrative* Problem Noted Date Resolved Date Routine general medical exam ination at a health care facility 07/04/2009 11/22/2013 Malignant neoplasm of female breast 07/30/2008 05/25/2016 Esophagitis, unspecified 07/23/2008 008 Other specified disorder of bladder 06/20/2007 11/25/2016 Unspecified sinusitis (chronic) 06/01/2007 05/25/2016 Dysuria 01/02/2007 05/25/2016 Irritable bowel syndrome 06/04/2006 017 Essential hypertension, benign 05/28/2005 0 09/01/2007 Primary localized osteoarthrosis, pelvic region and thigh 05/28/2005 06/04/2006 Diabetes 05/28/2005 06/27/2015 Unspecified sleep apnea 05/28/2005 12/08/19 14 Overview: PSG done 11/13/2002 @ [facility] . AHI 12 . Report sent to scan into [employer]. 12/05/[address] Norton Heme positive stool 11/22/2013 documented as of this encounter (statuses as of 11/19/2021) [facility] History of Past illness Narrative* Problem Noted Date Resolved Date Routine general medical exam ination at a health care facility 07/04/2009 11/22/2013 Malignant neoplasm of female breast 07/30/2008 05/25/2016 Esophagitis, unspecified 07/23/2008 008 Other specified disorder of bladder 06/20/2007 11/25/2016 Unspecified sinusitis (chronic) 06/01/2007 05/25/2016 Dysuria 01/02/2007 05/25/2016 Irritable bowel syndrome 06/04/2006 017 Essential hypertension, benign 05/28/2005 0 09/01/2007 Primary localized osteoarthrosis, pelvic region and thigh 05/28/2005 06/04/2006 Diabetes 05/28/2005 06/27/2015 Unspecified sleep apnea 05/28/2005 12/08/19 14 Overview: PSG done 11/13/2002 @ [facility] . AHI 12 . Report sent to scan into Epic. 12/05/[address] Errol Garcia positive stool 11/22/2013 documented as of this encounter (statuses as of 12/10/2021) [facility] History of Past illness Narrative* Problem Noted Date Resolved Date Routine general medical exam ination at a health care facility 07/04/2009 11/22/2013 Malignant neoplasm of female breast 07/30/2008 05/25/2016 Esophagitis, unspecified 07/23/2008 008 Other specified disorder of bladder 06/20/2007 11/25/2016 Unspecified sinusitis (chronic) 06/01/2007 05/25/2016 Dysuria 01/02/2007 05/25/2016 Irritable bowel syndrome 06/04/2006 017 Essential hypertension, benign 05/28/2005 0 09/01/2007 Primary localized osteoarthrosis, pelvic region and thigh 05/28/2005 06/04/2006 Diabetes 05/28/2005 06/27/2015 Unspecified sleep apnea 05/28/2005 12/08/19 14 Overview: PSG done 11/13/2002 @ [facility] AHI 12 . Report sent to scan into Epic. 12/05/[address] Errol Garcia positive stool 11/22/2013 documented as of this encounter (statuses as of 12/10/2021) [facility] Anne Graff [facility] November 21, 2023 3:07pm Note Date/Time November 21, 2023 3:07 pm [facility] Medical Records Department [address] [place] [id number] Counseling Note - Pharmacy 11/21/23 1506 MR#: [id number] Acct: [id number] Name: MANISHA KEITH Rep #:[id number] : 1950 73 From: Anne Graff PCP: Dr. Ilir Hernández MD Status:ADM I N Y Location: [place] [address] Pharmacy [facility] Service has performed discharge medication reconciliation and counseling for this patient. 1. GUAIFENESIN 1200MG PO BID X 7 DAYS 2. PREDNISONE 40MG PO DAILY X 3 DAYS The patient's discharge medication list was reviewed for discrepancies and discrepancies were resolved. The patient was counseled on the following discharge medications and changes in medications for homegoing were reviewed. The Reason for Use, instructions for use, and potential side effects were reviewed for all new medications. The patient's questions regarding all of their medications were answered. The patient was able to verbally demonstrate an understanding of their dischargemedications. Medications at Discharge Home Medications fluticasone propionate 50 mcg/actuation nasal spray,suspension 1 spray intranasal DAILY PRN NASAL CONGESTION 01/30/14 methotrexate sodium 2.5 mg tablet 20 mg PO TEJADA BREAST CANCER 04/16/17 albuterol sulfate 90 mcg/actuation aerosol inhaler (ProAir HFA) 2 puff inhalation Q4H PRN SHORTNESS OF BREATH 06/05/21 escitalopram oxalate 10 mg tablet (Lexapro) 10 mg PO DAILY PRN DEPRESSION 06/05/21 fluticasone fur. 100 mcg-umeclid 62.5 mcg-vilant 25 mcg inhalat.powder (Trelegy Ellipta) 1 inh inhalation DAILY SHORTNESS OF BREATH 06/05/21 folic acid 1 mg tablet 2 mg PO DAILY SUPPLEMENT 06/05/21 hydrochlorothiazide 12.5 mg capsule 12.5 mg PO DAILY BLOOD PRESSURE 06/05/21 losartan 100 mg tablet 100 mg PO DAILY BLOOD PRESSURE 06/05/21 aspirin 81 mg tablet,delayed release (Adult Low Dose Aspirin) 81 mg PO DAILY HEART HEALTH 02/05/22 gabapentin 300 mg capsule 300 mg PO QHS NEUROPATHY 02/05/22 oxybutynin chloride 10 mg tablet,extended release 24 hr 20 mg PO DAILY OVERACTIVE BLADDER 02/05/22 metoprolol succinate 100 mg tablet,extended release 24 hr 100 mg PO DAILY BLOOD PRESSURE 02/24/22 esomeprazole magnesium 40 mg capsule,delayed release (Nexium) 40 mg PO DAILY ACID REFLUX 11/26/22 loratadine 10 mg tablet 10 mg PO DAILY PRN ALLERGIES 11/26/22 metformin 500 mg tablet,extended release 24 hr 500 mg PO BREAKFAST DIABETES 11/26/22 pen needle, diabetic 32 gauge x /32 (BD Ultra-Fine Tish Pen Needle) #100 ea 11/26/22 atorvastatin 20 mg tablet 20 mg PO DAILY CHOLESTEROL 06/21/23 metaxalone 800 mg tablet 800 mg PO TID PRN MUSCLE CRAMPS 06/21/23 verapamil 120 mg tablet,extended release 120 mg PO QHS BLOOD PRESSURE 06/21/23 rivaroxaban 10 mg tablet (Xarelto) 10 mg PO DAILY@0600 #30 tabs 10/13/23 insulin regular hum U-500 conc 500 unit/mL(3 mL) subcut pen (Humulin R U-500 (Conc) Insulin Kwikpen) See Rx Instructions subcut TIDCM #10.8 mL 11/10/23 blood sugar diagnostic (Flowboxuch Verio test strips) #150 ea 11/15/23 nitrofurantoin monohydrate/macrocrystals 100 mg capsule 1 cap PO BID 11/15/23 guaifenesin 1,200 mg tablet, extended release 12 hr (Mucinex) 1,200 mg PO BID 7 days #14 tabs 11/21/23 prednisone 20 mg tablet 40 mg (2 x 20 mg) PO DAILY 3 days #6 tabs 11/21/23 11/21/23 1507 <Electronically signed by Anne Graff> Date _ Anne Graff Cosigner Signature (if applicable): Date CC: ~ Signed [facility] Work Phone: Discharge summary Author Aaliyah Tubbs [facility] October 13, 2023 3:34pm Note Date/Time October 13, 2023 3:35pm [facility] Medical Records Department [address] [place] [address] Instructions for Home/Discharge Instructions 10/13/23 1534 MR#: [id number] Acct: [id number] Name: KEITHMANISHA A Rep #:[id number] : 1950 73 From: Aaliyah Tubbs MD PCP: Dr. Ilir Hernández MD Status:ADM I N Discharge Instructions Diet Discharge Diet: Low fat / Low cholesterol Activity Discharge Activity: Return to Normal Activity Weight Bearing Status: Weight bearing as tolerated Dressing / Incision Call your doctor if you observe: Fever of 101 or Higher, Shortness of breath, Dizziness, Swelling in the ankles and Chest pain Follow Up Care Test Results: Test results from this visit will be discussed in further detail at your follow- up appointment, if applicable. Discharge Plan Admission Admit Date/Time: 10/11/23 03:04 Primary Reason for Your Visit: left hip fracture due to mechanical fall Attending Provider: Aaliayh Tubbs Primary Care Provider: Ilir Hernández Consulting Providers: Anthony Singleton; Scott Sutton Instructions Patient Instructions: Hip Fx Surg Dc Discharge Orders/Prescriptions Prescriptions: New oxycodone 5 mg Tablet 5 mg PO Q6H PRN PRN (Reason: Pain Score 6-10) 3 Days Qty: 12 0RF Xarelto 10 mg Tablet 10 mg PO DAILY@0600 Qty: 30 0RF Continued hydrochlorothiazide 12.5 mg capsule 12.5 mg PO DAILY gabapentin 300 mg capsule 300 mg PO QHS metoprolol succinate 100 mg tablet extended release 24 hr 100 mg PO DAILY oxybutynin chloride 10 mg tablet extended release 24hr 20 mg PO DAILY aspirin [Adult Low Dose Aspirin] 81 mg tablet,delayed release (DR/EC) 81 mg PO DAILY loratadine 10 mg tablet 10 mg PO DAILY PRN (Reason: ALLERGIES ) (DME) pen needle, diabetic [BD Ultra-Fine Tish Pen Needle] 32 gauge x 5/32 needle See Rx Instructions .ROUTE .MEDSUPPLY Qty: 100 5RF Rx Instructions: tid metformin 500 mg tablet extended release 24 hr 500 mg PO BREAKFAST Patient Comments: COUPLE OF WEEKS SINCE LAST TAKEN. PT STATES THEY RAN OUT AND THAT THEY DO NOTLIKE TAKING IT BECAUSE OF ALL THE BAD THINGS THEY HAVE HEARD ABOUT IT fluticasone propionate 1 SPRAY spray,suspension 1 spray intranasal DAILY PRN (Reason: NASAL CONGESTION ) methotrexate sodium 2.5 MG tablet 20 mg PO TEJADA Hold Instructions: Resume on 06/29/23. Hold until finished with augmentin folic acid 1 mg tablet 2 mg PO DAILY albuterol sulfate [ProAir HFA] 90 mcg/actuation Hfa Aerosol Inhaler 2 puff INHALATION Q4H PRN (Reason: SHORTNESS OF BREATH ) losartan 100 mg tablet 100 mg PO DAILY escitalopram oxalate [Lexapro] 10 mg tablet 10 mg PO DAILY PRN (Reason: DEPRESSION ) Trelegy Ellipta 100-62.5-25 mcg blister with device 1 inh INHALATION DAILY Patient Comments: PT STATES THEY WERE TOLD BY A DOCTOR TO STOP USING THIS TEMPORARILY BECAUSE THEY BELIEVE THE PT MIGHT BE ALLERGIC TO THIS INHALER. esomeprazole magnesium [Nexium] 40 mg capsule,delayed release(DR/EC) 40 mg PO DAILY atorvastatin 20 mg tablet 20 mg PO DAILY Humulin R U-500 (Conc) Kwikpen 500 unit/mL (3 mL) insulin pen 75 unit subcut TIDCM Rx Instructions: 70 BREAKFAST 70 LUNCH 40 DINNER verapamil 120 mg tablet extended release 120 mg PO QHS metaxalone 800 mg tablet 800 mg PO TID PRN (Reason: MUSCLE CRAMPS) fexofenadine [Nury Allergy] 180 mg tablet 180 mg PO BID Referrals / Follow Up: Ilir Hernández MD [Primary Care Provider] - Within 2 Weeks Disposition Disposition (needs filled in before D/C Order can be placed): [facility] Facility 10/13/231533<Electronically signed by Aaliyah Tubbs MD>Aaliyah Tubbs MD CC: Dr. Anthony Singleton DO; Dr. Scott Sutton MD; Dr. Ilir Hernández MD ~ Signed [facility] Work Phone: Discharge summary Author [facility] October 13, 2023 3:35pm Note Date/Time October 13, 2023 3:35pm [facility] Medical Records Department [address] [place] [id number] [facility] MR#: [id number] Acct: [id number] Name: MANISHA KEITH Rep #:[id number] : 1950 73 From: Aaliyah Tubbs MD PCP: Dr. Ilir Hernández MD Status:ADM I N Certification of patient admission REQUIRED AT TIME OF ADMISSION. I CERTIFY THAT POST-HOSPITAL ECF SERVICES ARE REQUIRED TO BE GIVEN ON AN IN-PATIENT BASIS BECAUSE OF THE ABOVE NAMED PATIENT'S NEED FOR CUSTODIAL CARE ON A CONTINUING BASIS FOR THE CONDITION(S) FOR WHICH HE/SHE WAS RECEIVING IN-PATIENT HOSPITAL SERVICES PRIOR TO HIS/HER TRANSFER TO THE [facility]. 10/13/23 1535<Electronically signed by Aaliyah Tubbs MD> Diet Diet Order/Speech Therapy: 10/12/23 07:09 Diet: Cardiac: Calorie-Controlled Dietary Modifications:: Consistent Carbohydrate Is pt able to select menu?: No How many daily calories?: 1800 calorie Routine Orders/Code Status Enema Type: Fleetz Enema Frequency: Daily PRN Suppository Type: Dulcolax 10mg Suppository Frequency: Daily PRN O2 Frequency: PRN Keep PO Greater than or Equal to (%): 90 Wound(s) left hip: Wound Type: Surgical Incision Therapies Weight Bearing: Weight bearing as tolerated Physical Therapy: Eval and Treat Occupational Therapy: Eval and Treat Problem/Diagnosis (1) Closed left hip fracture: Status: Acute Code(s): S72.002A - Fracture of unspecified part of neck of left femur, initial encounterfor closed fracture (2) Rhabdomyolysis: Status: Acute Code(s): M62.82 - Rhabdomyolysis Plan #Acute comminuted left hip fracture due to mechanical fall * status post left leg open reduction and internal fixation with intramedullary nail fixation. today is POD 1. * fell at home and was on the floor for about 24 hours * on PO tylenol, PO oxycodone and IV morphine prn for pain * PT/OT on board * general surgery on board * fall precautions * * #Rhabdomyolysis due to mechanical fall * resolved * #Altered mental status * Resolved. Patient now alert and oriented x 3. There was concern for UTI but I reviewed her urinalysis and she has chronic leukocytes esterase in her urine as with previous urine cultures over the years. * There is no bacteria in her urine. Confusion is also resolved. Will therefor e hold off on initiating antibiotics for now. #Hyperglycemia in the setting of type 2 diabetes mellitus with neuropathy * On U-500 humulin 75 units twice daily. * Ion ISS. Accuchecks ACHS * #Hyperlipidemia: On statin #Benign essential hypertension: IV hydralazine as needed. On hydrochlorothiazide and losartan. Also on verapamil and metoprolol. #History of gastroparesis with G-tube insertion: Stable #Depression: On Lexapro DVT prophylaxis: On Xarelto 10 mg daily as per orthopedics. Disposition: Awaiting placement. Allergies/Procedures Done in Hospital Allergies JESENIA Inhibitors Allergy (Intermediate, Verified 10/10/23 23:47) Cough adhesive tape Allergy (Intermediate, Verified 10/10/23 23:47) blisters dulaglutide [From Trulicity] Allergy (Intermediate, Verified 10/10/23 23:47) Gastroparesis chondroitin sulfate A [From DuoVisc Visco Elastic] Allergy (Verified 10/10/23 23:47) Rash ELASTIC hyaluronic acid [From DuoVisc Visco Elastic] Allergy (Verified 10/10/23 23:47) Rash ELASTIC NSAIDS (Non-Steroidal Anti-Inflamma Allergy (Verified 10/10/23 23:47) Other Procedures: None Type of Care/Length of Stay Estimated LOS: Convalescent Care Less Than 30 days Type of Care Needed: Skilled Rehab Potential: Good Prognosis: Good Additional Orders/Day of Discharge Day of Discharge: 10/13/23 Discharge Plan Admission Admit Date/Time: 10/11/23 03:04 Primary Reason for Your Visit: left hip fracture due to mechanical fall Attending Provider: Aaliyah Tubbs Primary Care Provider: Ilir Hernández Consulting Providers: Anthony Singleton; Scott Sutton Instructions Patient Instructions: Hip Fx Surg Dc Discharge Orders/Prescriptions Prescriptions: New oxycodone 5 mg Tablet 5 mg PO Q6H PRN PRN (Reason: Pain Score 6-10) 3 Days Qty: 12 0RF Xarelto 10 mg Tablet 10 mg PO DAILY@0600 Qty: 30 0RF Continued hydrochlorothiazide 12.5 mg capsule 12.5 mg PO DAILY gabapentin 300 mg capsule 300 mg PO QHS metoprolol succinate 100 mg tablet extended release 24 hr 100 mg PO DAILY oxybutynin chloride 10 mg tablet extended release 24hr 20 mg PO DAILY aspirin [Adult Low Dose Aspirin] 81 mg tablet,delayed release (DR/EC) 81 mg PO DAILY loratadine 10 mg tablet 10 mg PO DAILY PRN (Reason: ALLERGIES ) (DME) pen needle, diabetic [BD Ultra-Fine Tish Pen Needle] 32 gauge x 5/32 needle See Rx Instructions .ROUTE .MEDSUPPLY Qty: 100 5RF Rx Instructions: tid metformin 500 mg tablet extended release 24 hr 500 mg PO BREAKFAST Patient Comments: COUPLE OF WEEKS SINCE LAST TAKEN. PT STATES THEY RAN OUT AND THAT THEY DO NOTLIKE TAKING IT BECAUSE OF ALL THE BAD THINGS THEY HAVE HEARD ABOUT IT fluticasone propionate 1 SPRAY spray,suspension 1 spray intranasal DAILY PRN (Reason: NASAL CONGESTION ) methotrexate sodium 2.5 MG tablet 20 mg PO TEJADA Hold Instructions: Resume on 06/29/23. Hold until finished with augmentin folic acid 1 mg tablet 2 mg PO DAILY albuterol sulfate [ProAir HFA] 90 mcg/actuation Hfa Aerosol Inhaler 2 puff INHALATION Q4H PRN (Reason: SHORTNESS OF BREATH ) losartan 100 mg tablet 100 mg PO DAILY escitalopram oxalate [Lexapro] 10 mg tablet 10 mg PO DAILY PRN (Reason: DEPRESSION ) Trelegy Ellipta 100-62.5-25 mcg blister with device 1 inh INHALATION DAILY Patient Comments: PT STATES THEY WERE TOLD BY A DOCTOR TO STOP USING THIS TEMPORARILY BECAUSE THEY BELIEVE THE PT MIGHT BE ALLERGIC TO THIS INHALER. esomeprazole magnesium [Nexium] 40 mg capsule,delayed release(DR/EC) 40 mg PO DAILY atorvastatin 20 mg tablet 20 mg PO DAILY Humulin R U-500 (Conc) Kwikpen 500 unit/mL (3 mL) insulin pen 75 unit subcut TIDCM Rx Instructions: 70 BREAKFAST 70 LUNCH 40 DINNER verapamil 120 mg tablet extended release 120 mg PO QHS metaxalone 800 mg tablet 800 mg PO TID PRN (Reason: MUSCLE CRAMPS) fexofenadine [Nury Allergy] 180 mg tablet 180 mg PO BID Referrals / Follow Up: Ilir Hernández MD [Primary Care Provider] - Within 2 Weeks Disposition Disposition (needs filled in before D/C Order can be placed): [facility] Facility (1) Closed left hip fracture Qualifiers: Encounter type: initial encounter Qualified Code(s): S72.002A - Fracture of unspecified part of neck of left femur, initial encounter for closed fracture (2) Rhabdomyolysis Qualifiers: Rhabdomyolysis type: traumatic Encounter type: initial encounter Qualified Code(s): T79.6XXA - Traumatic ischemia of muscle, initial encounter 10/13/23 [id number] <Electronically signed by Aaliyah Tubbs MD> Cosigner Signature (if applicable): CC: Dr. Anthony Singleton DO; Dr. Scott Sutton MD; Dr. Ilir Hernández MD ~ [facility] Work Phone: Discharge summary Author Aaliyah Tubbs [facility] October 13, 2023 3:41pm Note Date/Time October 13, 2023 3:39pm [facility] Medical Records Department [address] [place] [address] Discharge Summary 10/13/23 1535 MR#: [id number] Acct: [id number] Name: MANISHA KEITH Rep #:[id number] 1 : 1950 73 From: Aaliyah Tubbs MD PCP: Dr. Ilir Hernández MD Status:ADM I N Location: [place] [address] Providers Date of Admission: 10/11/23 Date of Discharge: 10/13/23 Primary Care Physician: Dr. Ilir Hernández MD Consultations 10/11/23 04:24 Consult: Orthopedics Routine Consulting Provider: Scott Sutton Reason for Consult: Left hip fracture after fall EMERGENT Consult: No MD Notified: Yes Date Notified: 10/11/23 Time Notified: 03:09 Method of Notification: Text Reason For Visit: LEFT HIP FRACTURE AFTER FALL WITH MYOTOXICITY D/T Diagnosis Discharge Diagnosis (1) Closed left hip fracture: Status: Acute Code(s): S72.002A - Fracture of unspecified part of neck of left femur, initial encounterfor closed fracture Qualifiers: Encounter type: initial encounter Qualified Code(s): S72.002A - Fracture of unspecified part of neck of left femur, initial encounter for closedfracture (2) Rhabdomyolysis: Status: Acute Code(s): M62.82 - Rhabdomyolysis Qualifiers: Rhabdomyolysis type: traumatic Encounter type: initial encounter Qualified Code(s): T79.6XXA - Traumatic ischemia of muscle, initial encounter Plan #Acute comminuted left hip fracture due to mechanical fall * status post left leg open reduction and internal fixation with intramedullary nail fixation. today is POD 1. * fell at home and was on the floor for about 24 hours * on PO tylenol, PO oxycodone and IV morphine prn for pain * PT/OT on board * general surgery on board * fall precautions * * #Rhabdomyolysis due to mechanical fall * resolved * #Altered mental status * Resolved. Patient now alert and oriented x 3. There was concern for UTI but I reviewed her urinalysis and she has chronic leukocytes esterase in her urine as with previous urine cultures over the years. * There is no bacteria in her urine. Confusion is also resolved. Will therefore hold off on initiating antibiotics for now. #Hyperglycemia in the setting of type 2 diabetes mellitus with neuropathy * On U-500 humulin 75 units twice daily. * Ion ISS. Accuchecks ACHS * #Hyperlipidemia: On statin #Benign essential hypertension: IV hydralazine as needed. On hydrochlorothiazide and losartan. Also on verapamil and metoprolol. #History of gastroparesis with G-tube insertion: Stable #Depression: On Lexapro DVT prophylaxis: On Xarelto 10 mg daily as per orthopedics. Disposition: Awaiting placement. Medications at Discharge Home Medications fluticasone propionate 50 mcg/actuation nasal spray,suspension 1 spray intranasal DAILY PRN NASAL CONGESTION 01/30/14 methotrexate sodium 2.5 mg tablet 20 mg PO TEJADA BREAST CANCER 04/16/17 albuterol sulfate 90 mcg/actuation aerosol inhaler (ProAir HFA) 2 puff inhalation Q4H PRN SHORTNESS OF BREATH 06/05/21 escitalopram oxalate 10 mg tablet (Lexapro) 10 mg PO DAILY PRN DEPRESSION 06/05/21 fluticasone fur. 100 mcg-umeclid 62.5 mcg-vilant 25 mcg inhalat.powder (Trelegy Ellipta) 1 inh inhalation DAILY SHORTNESS OF BREATH 06/05/21 folic acid 1 mg tablet 2 mg PO DAILY SUPPLEMENT 06/05/21 hydrochlorothiazide 12.5 mg capsule 12.5 mg PO DAILY BLOOD PRESSURE 06/05/21 losartan 100 mg tablet 100 mg PO DAILY BLOOD PRESSURE 06/05/21 aspirin 81 mg tablet,delayed release (Adult Low Dose Aspirin) 81 mg PO DAILY HEART HEALTH 02/05/22 gabapentin 300 mg capsule 300 mg PO QHS NEUROPATHY 02/05/22 oxybutynin chloride 10 mg tablet,extended release 24 hr 20 mg PO DAILY OVERACTIVE BLADDER 02/05/22 metoprolol succinate 100 mg tablet,extended release 24 hr 100 mg PO DAILY BLOOD PRESSURE 02/24/22 esomeprazole magnesium 40 mg capsule,delayed release (Nexium) 40 mg PO DAILY ACID REFLUX 11/26/22 loratadine 10 mg tablet 10 mg PO DAILY PRN ALLERGIES 11/26/22 metformin 500 mg tablet,extended release 24 hr 500 mg PO BREAKFAST DIABETES 11/26/22 pen needle, diabetic 32 gauge x /32 (BD Ultra-Fine Tish Pen Needle) #100 ea 11/26/22 atorvastatin 20 mg tablet 20 mg PO DAILY CHOLESTEROL 06/21/23 fexofenadine 180 mg tablet (Nury Allergy) 180 mg PO BID ALLERGIES 06/21/23 insulin regular hum U-500 conc 500 unit/mL(3 mL) subcut pen (Humulin R U-500 (Conc) Insulin Kwikpen) 75 unit subcut TIDCM 06/21/23 metaxalone 800 mg tablet 800 mg PO TID PRN MUSCLE CRAMPS 06/21/23 verapamil 120 mg tablet,extended release 120 mg PO QHS BLOOD PRESSURE 06/21/23 oxycodone 5 mg tablet 5 mg PO Q6H PRN PRN Pain Score 6-10 3 days #12 tabs 10/13/23 rivaroxaban 10 mg tablet (Xarelto) 10 mg PO DAILY@0600 #30 tabs 10/13/23 Hospital Course Operations None and - (left hip ORIF with intramedullary nail fixation) Procedures None Summary of Care Provided Minutes Spent on Discharge: 55 Hospital Course: Patient is a 73-year-old female with a past medical history as outlined was admitted through the ED on 10/11/2023 with a complaint of left hip pain after mechanical fall. She fell on her floor and landed on her left hip several days prior to admission. She could not get up for about 24 hours. He subsequently became much more weak over the subsequent days. Patient unable to . She was on aspirin but was not taking any other anticoagulant. Imaging done showed acute comminuted left femoral intertrochanteric fracture. CT of the headwas negative for any acute intracranial pathology. She had mild rhabdomyolysis with CPK more than thousand. She was admitted and managed for left hip fracturedue to mechanical fall. Orthopedic surgery was consulted and she had left open reduction and internal fixation with intra medullary nail placement. Postop course was complicated by some encephalopathy but this subsequently resolved. It was thought that patient had UTI she had a urinalysis done which did not showany evidence of UTI and showed chronic elevation of leukocyte esterase. She remained stable and was placed on Xarelto for DVT prophylaxis. She was discharged to half-way facility on 10/13/2023. She was discharged with a prescription for p.o. oxycodone 5 mg every 6 hours as needed for total of 12 tablets with 0 refills. OARRS score was checked and no red flags were seen. She was also given a prescription for Xarelto 10 mg daily for 30 days with 0 refills for DVT prophylaxis as. Orthopedic recommendation. Patient seen and examined prior to discharge. She felt well and had no complaints. She had an uneventful night. Review of systems otherwise negative. Labs and vitals reviewed. Home medication reviewed and reconciled. Physical Exam Const alert, oriented x3, no apparent distress, average body habitus and healthy appearing Constitutional Narrative: frail, in moderate distress. General Appearance: cooperative, comfortable and well kempt Orientation / Consciousness: awake HEENT normocephalic, head/scalp atraumatic, hearing grossly normal bilaterally and moist oral mucous membranes Mouth: oral and palatal mucosa normal Eyes PERRL, EOMs intact bilaterally and conjunctivae normal Neck no lymphadenopathy, supple and no JVD Lymph Lymphatic: no lymphadenopathy noted and no lymphedema noted Resp normal respiratory effort, no retractions, no use of accessory muscles and clearto auscultation bilaterally Resp Narrative: diminished breath sounds bibasally, no wheezes or crackles. On 2L of oxygen by nasal canula Cardio regular rate, regular rhythm, S1 normal heart sound, S2 normal heart sound and no murmurs GI normal to inspection, nondistended, normoactive bowel sounds, soft to palpation,non-tender and non-distended Extremity normal capillary refill and no clubbing, cyanosis or edema Extremity Narrative: dressing over left hip General Extremity: no tenderness to palpation of joints or extremities Skin General Skin Exam: no breakdown Neuro oriented x3, CN's II-XII intact bilaterally, moves all extremities and no focal motor deficits Sensorium / Orientation: awake, alert, oriented to person, oriented to place andoriented to time Speech: speech normal Motor Exam: general weakness Psych thought process normal and cooperative Weight / BMI Weight Weight: 206 lb 12.697 oz Body Mass Index (BMI) 38.0 ABG / Lab / Microbiology Data 10/13/23 06:42 10/13/23 06:42 Laboratory: Laboratory Results - last 24 hr 10/12/23 16:16: POC Glucose 109 H 10/12/23 21:49: POC Glucose 98 10/13/23 06:42: WBC 8.8, RBC 2.66 L, Hgb 8.3 L, Hct 26.5 L, MCV 99.6 H, MCH 31.2, MCHC 31.3 L, RDW Std Deviation 47.8 H, RDW Coeff of Tom 13.2, Plt Count 204, MPV 10.0, Sodium 140, Potassium 3.5, Chloride 111 H, Carbon Dioxide 27.0, Anion Gap 2 L, BUN 19 H, Creatinine 0.84, Estim Creat Clear Calc 64.20, Est GFR (MDRD) Af Amer 86, Est GFR (MDRD) Non-Af 71, BUN/Creatinine Ratio 22.7 H, Glucose 212 H, Calcium 7.6 L 10/13/23 08:05: POC Glucose 221 H 10/13/23 11:55: POC Glucose 239 H Microbiology: Microbiology 10/12/23 02:18 Urine Catheter - Catheter Urine Culture - Preliminary Mixed Gram Positive Organisms 10/11/23 00:49 Mucosa - Nose SARS-CoV-2, Influenza & RSV (PCR) - Final D/C Instructions Discharge Diet: Low fat / Low cholesterol Discharge Activity: Return to Normal Activity Weight Bearing Status: Weight bearing as tolerated Call your doctor if you observe: Fever of 101 or Higher, Shortness of breath, Dizziness, Swelling in the ankles and Chest pain Meaningful Use Info Meaningful Use Diagnoses (Choose all that apply): None applicable Discharge Plan Admission Admit Date/Time: 10/11/23 03:04 Primary Reason for Your Visit: left hip fracture due to mechanical fall Attending Provider: Aaliyah Tubbs Primary Care Provider: Ilir Hernández Consulting Providers: Anthony Singleton; Scott Sutton Instructions Patient Instructions: Hip Fx Surg Dc Discharge Orders/Prescriptions Prescriptions: New oxycodone 5 mg Tablet 5 mg PO Q6H PRN PRN (Reason: Pain Score 6-10) 3 Days Qty: 12 0RF Xarelto 10 mg Tablet 10 mg PO DAILY@0600 Qty: 30 0RF Continued hydrochlorothiazide 12.5 mg capsule 12.5 mg PO DAILY gabapentin 300 mg capsule 300 mg PO QHS metoprolol succinate 100 mg tablet extended release 24 hr 100 mg PO DAILY oxybutynin chloride 10 mg tablet extended release 24hr 20 mg PO DAILY aspirin [Adult Low Dose Aspirin] 81 mg tablet,delayed release (DR/EC) 81 mg PO DAILY loratadine 10 mg tablet 10 mg PO DAILY PRN (Reason: ALLERGIES ) (DME) pen needle, diabetic [BD Ultra-Fine Tish Pen Needle] 32 gauge x 5/32 needle See Rx Instructions .ROUTE .MEDSUPPLY Qty: 100 5RF Rx Instructions: tid metformin 500 mg tablet extended release 24 hr 500 mg PO BREAKFAST Patient Comments: COUPLE OF WEEKS SINCE LAST TAKEN. PT STATES THEY RAN OUT AND THAT THEY DO NOTLIKE TAKING IT BECAUSE OF ALL THE BAD THINGS THEY HAVE HEARD ABOUT IT fluticasone propionate 1 SPRAY spray,suspension 1 spray intranasal DAILY PRN (Reason: NASAL CONGESTION ) methotrexate sodium 2.5 MG tablet 20 mg PO TEJADA Hold Instructions: Resume on 06/29/23. Hold until finished with augmentin folic acid 1 mg tablet 2 mg PO DAILY albuterol sulfate [ProAir HFA] 90 mcg/actuation Hfa Aerosol Inhaler 2 puff INHALATION Q4H PRN (Reason: SHORTNESS OF BREATH ) losartan 100 mg tablet 100 mg PO DAILY escitalopram oxalate [Lexapro] 10 mg tablet 10 mg PO DAILY PRN (Reason: DEPRESSION ) Trelegy Ellipta 100-62.5-25 mcg blister with device 1 inh INHALATION DAILY Patient Comments: PT STATES THEY WERE TOLD BY A DOCTOR TO STOP USING THIS TEMPORARILY BECAUSE THEY BELIEVE THE PT MIGHT BE ALLERGIC TO THIS INHALER. esomeprazole magnesium [Nexium] 40 mg capsule,delayed release(DR/EC) 40 mg PO DAILY atorvastatin 20 mg tablet 20 mg PO DAILY Humulin R U-500 (Conc) Kwikpen 500 unit/mL (3 mL) insulin pen 75 unit subcut TIDCM Rx Instructions: 70 BREAKFAST 70 LUNCH 40 DINNER verapamil 120 mg tablet extended release 120 mg PO QHS metaxalone 800 mg tablet 800 mg PO TID PRN (Reason: MUSCLE CRAMPS) fexofenadine [Nruy Allergy] 180 mg tablet 180 mg PO BID Referrals / Follow Up: Ilir Hernández MD [Primary Care Provider] - Within 2 Weeks Scott Sutton MD [Med Staff - Active Staff] - Within 2 Weeks Disposition Disposition (needs filled in before D/C Order can be placed): Retirement Facility Charges/Coding Visit Charges Inpatient E&M: 21271 Disch Hosp >30min 10/13/23 1540 <Electronically signed by Aaliyah Tubbs MD> Cosigner Signature (if applicable): CC: Dr. Aaliyah Tubbs MD; Dr. 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, unspecified retinopathy severity, unspecified whether technician terminal and repeater insulin use ([facility])- Primary Subclinical hypothyroidism Other specified acquired hypothyroidism [facility] Diagnosis 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, unspecified retinopathy severity, unspecified whether chcf insulin use ([facility])- Primary Insulin pump in place Insulin pump status Gastroparesis due to secondary diabetes ([facility]) Secondary diabetes mellitus with neurological manifestations, not stated as uncontrolled, or unspecified Subclinical hypothyroidism Other specified acquired hypothyroidism Gastroesophageal reflux disease with esophagitis without hemorrhage Primary hypertension Unspecified essential hypertension Mixed hyperlipidemia Inflammatory polyarthritis ([facility]) Unspecified inflammatory polyarthropathy SVT (supraventricular tachycardia) ([facility]) Other specified cardiac dysrhythmias [facility] Diagnosis Primary hypertension- Primary Unspecified essential hypertension [facility] Diagnosis Onset Date Resolution Status Diabetes mellitus, type II c hronic Hypertension chronic Obesity chronic Gastroparesis noneactive Urinary incontinence acute Diabetes mellitus, type II c hronic Hypertension chronic Obesity chronic Diabetes acute Presence of insulin pump acu te Hyperlipidemia chronic Hypertension chronic Obesity [facility] Work Phone: Evaluation note* Diagnosis Muscle spasm Spasm of muscle [facility] Diagnosis Onset Date Resolution Status Diabetes mellitus, type II c hronic Obesity chronic Diabetes chronic Hyperlipidemia chronic Obesity chronic Presence of insulin pump chr onic Rapid palpitations acute Essential hypertension chron ic Constipation acute Gastroparesis acute Insulin pump titration acute Diabetes chronic Presence of insulin pump chr [facility] Work Phone: Evaluation note* Diagnosis Onset Date Resolution Status Diabetes chronic Hyperlipidemia chronic Obesity chronic Presence of insulin pump chr onic Rapid palpitations acute Essential hypertension chron ic Constipation acute Gastroparesis acute Insulin pump titration acute Diabetes chronic Presence of insulin pump chr [facility] Work Phone: Evaluation note* Diagnosis Frequent urination- Primary Urinary frequency Muscle cramps Cramp of limb Serum calcium elevated Hypercalcemia Dehydration Leukocytosis, unspecified type Lactic acid acidosis Acidosis [facility] Diagnosis Essential hypertension Unspecified essential hypertension [facility] Diagnosis Cellulitis of left upper extremity- Primary Cellulitis and abscess of upper arm and forearm 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, unspecified retinopathy severity, unspecified whether technician terminal and repeater insulin use (HCC) [facility] Diagnosis Cellulitis of left upper extremity- Primary Cellulitis and abscess of upper arm and forearm Bursitis of left elbow, unspecified bursa [facility] Diagnosis Cellulitis of skin- Primary Cellulitis and abscess of unspecified site Elevated sed rate Elevated sedimentation rate Elevated C-reactive protein (CRP) Left elbow pain Pain in joint, upper arm 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, unspecified retinopathy severity, unspecified whether chcf insulin use (HCC) [facility] Diagnosis Chest wall pain Painful respiration Gastroesophageal reflux disease without esophagitis Esophageal reflux [facility]* Diagnosis Onset Date Resolution Status Rapid palpitations acute Essential hypertension chron ic Constipation acute Gastroparesis acute Insulin pump titration acute Diabetes chronic Presence of insulin pump [facility] Constipation acute Gastroparesis acute Obesity chronic Diabetes mellitus, type II c hronic Obesity chronic [facility] Work Phone: Evaluation note* Diagnosis RICARDO (obstructive sleep apnea)- Primary Obstructive sleep apnea (adult) (pediatric) Chronic insomnia Insomnia, unspecified Primary hypertension Unspecified essential hypertension SVT (supraventricular tachycardia) ([facility]) Other specified cardiac dysrhythmias 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, unspecified retinopathy severity, unspecified whether chcf insulin use (HCC) Subclinical hypothyroidism Other specified acquired hypothyroidism History of breast cancer Personal history of malignant neoplasm of breast Inflammatory polyarthritis (HCC) Unspecified inflammatory polyarthropathy Screening breast examination Breast screening, unspecified Encounter for screening mammogram for malignant neoplasm of breast Other screening mammogram Lung nodules Other nonspecific abnormal finding of lung field [facility] Muscle spasm Spasm of muscle [facility] Diagnosis Chronic cough Cough [facility]* Diagnosis Vitamin D deficiency- Primary Unspecified vitamin D deficiency [facility]* Diagnosis Muscle spasm Spasm of muscle [facility]* Diagnosis Vitamin D deficiency- Primary Unspecified vitamin D deficiency [facility]* Diagnosis Onset Date Resolution Status Diabetes mellitus, type II c hronic Essential hypertension chron ic Osteoporosis chronic Rapid palpitations acute Essential hypertension chron ic Constipation acute Gastroparesis acute Obesity chronic [facility] Work Phone: Evaluation note* Diagnosis Onset Date Resolution Status Rapid palpitations acute Essential hypertension chron ic Constipation acute Gastroparesis acute Obesity chronic CKD (chronic kidney disease) stage 3, GFR 30-59 ml/min chronic Diabetes mellitus, type II c hronic Essential hypertension chron ic Osteoporosis chronic Diabetes chronic Obesity chronic Presence of insulin pump chr onic [facility] Work Phone: Evaluation note* Diagnosis SVT (supraventricular tachycardia) (HCC)- Primary Other specified cardiac dysrhythmias Primary hypertension Unspecified essential hypertension Subclinical hypothyroidism Other specified acquired hypothyroidism 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, with long-term current use of insulin, unspecified laterality (HCC) [facility]* Diagnosis Nasal congestion- Primary Other diseases of nasal cavity and sinuses [facility]* Diagnosis Primary hypertension- Primary Unspecified essential hypertension 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, with long-term current use of insulin, unspecified laterality (HCC) [facility]* Diagnosis 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, with long-term current use of insulin, unspecified laterality (HCC) [facility]* Diagnosis Obstructive sleep apnea (adult) (pediatric)- Primary Sleep related hypoxia Idiopathic sleep related nonobstructive alveolar hypoventilation Hypoglycemia Hypoglycemia, unspecified Hypertension, unspecified type [facility]* Diagnosis Mixed hyperlipidemia [facility]* Diagnosis Primary hypertension- Primary Unspecified essential hypertension Mixed hyperlipidemia SVT (supraventricular tachycardia) (HCC) Other specified cardiac dysrhythmias RICARDO (obstructive sleep apnea) Obstructive sleep apnea (adult) (pediatric) Stage 3 chronic kidney disease, unspecified whether stage 3a or 3b CKD (HCC) 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, with long-term current use of insulin, unspecified laterality (HCC) Insulin pump in place Insulin pump status Gastroparesis due to secondary diabetes (HCC) Secondary diabetes mellitus with neurological manifestations, not stated as uncontrolled, or unspecified Subclinical hypothyroidism Other specified acquired hypothyroidism Urinary frequency Microalbuminuria Proteinuria [facility]* Diagnosis Onset Date Resolution Status Diabetes chronic Obesity chronic CKD (chronic kidney disease) stage 3, GFR 30-59 ml/min chronic Diabetes chronic Essential hypertension chron ic Hyperlipidemia chronic Obesity chronic Osteoporosis [facility] Work Phone: Evaluation note* Diagnosis Onset Date Resolution Status Diabetes chronic Obesity chronic CKD (chronic kidney disease) stage 3, GFR 30-59 ml/min chronic Diabetes chronic Essential hypertension chron ic Hyperlipidemia chronic Obesity chronic Osteoporosis chronic Constipation acute Gastroparesis acute [facility] Work Phone: Evaluation note* Diagnosis Lung nodules- Primary Other nonspecific abnormal finding of lung field [facility] Diagnosis Primary hypertension- Primary Unspecified essential hypertension Lumbar pain Lumbago Balance disorder Other symptoms involving nervous and musculoskeletal systems [facility] Diagnosis Lumbar pain- Primary Lumbago Balance disorder Other symptoms involving nervous and musculoskeletal systems [facility] Diagnosis SOB (shortness of breath)- Primary Shortness of breath Chronic cough Cough Localized edema Edema Primary hypertension Unspecified essential hypertension Stage 3 chronic kidney disease, unspecified whether stage 3a or 3b CKD (HCC) 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, with long-term current use of insulin, unspecified laterality (HCC) Subclinical hypothyroidism Other specified acquired hypothyroidism [facility] Diagnosis Stasis dermatitis, acute- Primary Varicose veins of lower extremities with inflammation [facility] Diagnosis Lumbar pain- Primary Lumbago Balance disorder Other symptoms involving nervous and musculoskeletal systems [facility] Diagnosis Onset Date Resolution Status Constipation acute Gastroparesis acute Obesity [facility] Work Phone: evaluation note* Diagnosis Lumbar pain- Primary Lumbago Balance disorder Other symptoms involving nervous and musculoskeletal systems [facility] Diagnosis Chronic cough- Primary Cough Inflammatory polyarthritis (HCC) Unspecified inflammatory polyarthropathy Primary hypertension Unspecified essential hypertension Mixed hyperlipidemia Dermatitis Contact dermatitis and other eczema, due to unspecified cause [facility] Diagnosis Left flank pain- Primary Abdominal pain, unspecified site Acute cystitis without hematuria Acute cystitis [facility] Diagnosis Lung nodules Other nonspecific abnormal finding of lung field [facility] Diagnosis Nodule of right lung Solitary pulmonary nodule [facility]* Diagnosis Screening breast examination Breast screening, unspecified Encounter for screening mammogram for malignant neoplasm of breast Other screening mammogram documented in this encounter [facility] note* Diagnosis SOB (shortness of breath) Shortness of breath Chronic cough Cough [facility]* Diagnosis Left flank pain Abdominal pain, unspecified site [facility] Diagnosis Onset Date Resolution Status Constipation acute Gastroparesis acute Obesity chronic UTI (urinary tract infection) acute [facility] Work Phone: evaluation note* Diagnosis Fever, unspecified fever cause- Primary Hypoxic Hypoxemia [facility] Diagnosis Chronic cough- Primary Cough Gastroesophageal reflux disease, unspecified whether esophagitis present Former smoker Personal history of tobacco use, presenting hazards to health Lung nodule Solitary pulmonary nodule [facility] Diagnosis Bacterial pneumonia- Primary Bacterial pneumonia, unspecified Inflammatory polyarthritis (HCC) Unspecified inflammatory polyarthropathy 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, with long-term current use of insulin, unspecified laterality (HCC) Primary hypertension Unspecified essential hypertension Subclinical hypothyroidism Other specified acquired hypothyroidism [facility] Diagnosis Diarrhea, unspecified type- Primary Black stool Nonspecific abnormal finding in stool contents SOB (shortness of breath) Shortness of breath [facility] Diagnosis Bacterial pneumonia- Primary Bacterial pneumonia, unspecified Vaginal discomfort Unspecified symptom associated with female genital organs Leukocytosis, unspecified type Dermatitis Contact dermatitis and other eczema, due to unspecified cause [facility] Diagnosis Chest wall pain Painful respiration Gastroesophageal reflux disease without esophagitis Esophageal reflux [facility]* Diagnosis Bacterial pneumonia Bacterial pneumonia, unspecified [facility] Diagnosis Chronic cough- Primary Cough Ground glass opacity present on imaging of lung Former smoker Personal history of tobacco use, presenting hazards to health Lung nodules Other nonspecific abnormal finding of lung field documented in this encounter [facility] note* Diagnosis Onset Date Resolution Status UTI (urinary tract infection) acute COPD with acute exacerbation [facility] Work Phone: Evaluation note* Diagnosis Onset Date Resolution Status UTI (urinary tract infection) acute COPD with acute exacerbation chronic Diabetes mellitus, type II c hronic Essential hypertension chron ic Obesity chronic Osteoporosis [facility] Work Phone: Evaluation note* Diagnosis Obstructive sleep apnea (adult) (pediatric)- Primary Class 2 obesity with body mass index (BMI) of 39.0 to 39.9 in adult, unspecified obesity type, unspecified whether serious comorbidity present Sleep related hypoxia Idiopathic sleep related nonobstructive alveolar hypoventilation documented in this encounter [facility] note* Diagnosis Lung nodules Other nonspecific abnormal finding of lung field [facility] Diagnosis Lung nodule- Primary Solitary pulmonary nodule [facility]* Diagnosis Encounter for gynecological examination (general) (routine) without abnormal findings Encounter for screening mammogram for breast cancer [facility] Diagnosis Onset Date Resolution Status UTI (urinary tract infection) acute COPD with acute exacerbation chronic Diabetes mellitus, type II c hronic Essential hypertension chron ic Obesity chronic Osteoporosis chronic Closed left hip fracture acu te Rhabdomyolysis acute Diabetes mellitus, type II c hronic Essential hypertension chron ic [facility] Work Phone: Evaluation note* Diagnosis Closed fracture of left hip with routine healing, subsequent encounter- Primary Cutaneous candidiasis Candidiasis of skin and nails 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, with long-term current use of insulin, unspecified laterality (HCC) Retention of urine Retention of urine, unspecified [facility] Diagnosis Onset Date Resolution Status Obesity chronic Osteoporosis chronic Rhabdomyolysis resolved CKD (chronic kidney disease) stage 3, GFR 30-59 ml/min chronic Diabetes chronic Hyperlipidemia chronic Obesity chronic Osteoporosis chronic Hypoxia acute COPD exacerbation chronic COPD with acute exacerbation chronic [facility] Work Phone: Evaluation note* Diagnosis Closed fracture of left hip with routine healing, subsequent encounter- Primary Leg pain, left Pain in limb S/p left hip fracture S/P ORIF (open reduction internal fixation) fracture Other postprocedural status [facility] Diagnosis 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, with long-term current use of insulin, unspecified laterality (HCC)- Primary [facility]* Diagnosis COPD with exacerbation (HCC)- Primary Obstructive chronic bronchitis with exacerbation Closed fracture of left hip with routine healing, subsequent encounter 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) [facility]* Diagnosis 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) [facility]* Diagnosis Onset Date Resolution Status Obesity chronic Osteoporosis chronic Rhabdomyolysis resolved CKD (chronic kidney disease) stage 3, GFR 30-59 ml/min chronic Diabetes chronic Hyperlipidemia chronic Obesity chronic Osteoporosis chronic COPD with acute exacerbation chronic COPD exacerbation resolved Hypoxia resolved [facility] Work Phone: Evaluation note* Diagnosis Essential hypertension Unspecified essential hypertension Essential tremor Essential and other specified forms of tremor [facility]* Diagnosis Choledocholithiasis- Primary Calculus of bile duct without mention of cholecystitis or obstruction UTI symptoms Other symptoms involving urinary system 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) [facility]* Diagnosis OPENED IN ERROR- Primary To allow closing an encounter opened in error (used in SmartSet) [facility]* Diagnosis RICARDO (obstructive sleep apnea)- Primary Obstructive sleep apnea (adult) (pediatric) Nocturnal hypoxemia Hypoxemia [facility]* Diagnosis RICARDO (obstructive sleep apnea)- Primary Obstructive sleep apnea (adult) (pediatric) [facility]* Diagnosis Essential hypertension- Primary Unspecified essential hypertension 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) Choledocholithiasis Calculus of bile duct without mention of cholecystitis or obstruction COPD with exacerbation (HCC) Obstructive chronic bronchitis with exacerbation [facility]* Diagnosis Renal insufficiency- Primary Unspecified disorder of kidney and ureter [facility]* Diagnosis Cough variant asthma- Primary Lung nodules Other nonspecific abnormal finding of lung field Post-nasal drip Postnasal drip Former smoker Personal history of tobacco use, presenting hazards to health [facility]* Diagnosis Lung nodules- Primary Other nonspecific abnormal finding of lung field [facility]* Diagnosis Bacterial pneumonia Bacterial pneumonia, unspecified [facility]* Diagnosis Low back pain, unspecified back pain laterality, unspecified chronicity, unspecified whether sciatica present [facility]* Diagnosis Chronic cough Cough [facility]* Diagnosis RICARDO (obstructive sleep apnea)- Primary Obstructive sleep apnea (adult) (pediatric) Long sleeper Other specific disorder of sleep of nonorganic origin Non-restorative sleep Other sleep disturbances Intolerance of continuous positive airway pressure (CPAP) ventilation [facility]* Diagnosis Onychomycosis- Primary Dermatophytosis of nail Bronchitis Bronchitis, not specified as acute or chronic Essential hypertension Unspecified essential hypertension Essential tremor Essential and other specified forms of tremor Seasonal allergic rhinitis, unspecified trigger Lumbar pain Lumbago OAB (overactive bladder) Hypertonicity of bladder Cellulitis of skin Cellulitis and abscess of unspecified site Asthma with chronic obstructive pulmonary disease (COPD) (HCC) Chronic obstructive asthma, unspecified [facility]* Diagnosis Gastroesophageal reflux disease without esophagitis- Primary Esophageal reflux Lichen planus Lumbar pain Lumbago Mixed hyperlipidemia Screening for depression Encounter for screening examination for other mental health and behavioral disorders Asymptomatic menopause Encounter for screening for osteoporosis Special screening for osteoporosis Senile osteoporosis Screening for cervical cancer Screening for malignant neoplasm of the cervix Gastroparesis due to secondary diabetes (HCC) Secondary diabetes mellitus with neurological manifestations, not stated as uncontrolled, or unspecified Chronic obstructive pulmonary disease, unspecified COPD type ([facility]) [facility] Diagnosis Onychocryptosis- Primary Ingrowing nail Onychomycosis Dermatophytosis of nail Diabetic polyneuropathy associated with type 2 diabetes mellitus (HCC) Pain in toe of left foot Pain in limb Pain in toe of right foot Pain in limb [facility]* Diagnosis Gastroparesis due to secondary diabetes (HCC)- Primary Secondary diabetes mellitus with neurological manifestations, not stated as uncontrolled, or unspecified Mixed hyperlipidemia Primary hypertension Unspecified essential hypertension SVT (supraventricular tachycardia) (HCC) Other specified cardiac dysrhythmias Lung nodules Other nonspecific abnormal finding of lung field Chronic cough Cough Gastroesophageal reflux disease with esophagitis without hemorrhage 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, with long-term current use of insulin, unspecified laterality (HCC) Subclinical hypothyroidism Other specified acquired hypothyroidism History of cervical cancer Personal history of malignant neoplasm of cervix uteri History of breast cancer Personal history of malignant neoplasm of breast Inflammatory polyarthritis (HCC) Unspecified inflammatory polyarthropathy Class 2 obesity with body mass index (BMI) of 36.0 to 36.9 in adult, unspecified obesity type, unspecified whether serious comorbidity present Stage 3 chronic kidney disease, unspecified whether stage 3a or 3b CKD (HCC) Encounter for screening mammogram for malignant neoplasm of breast Other screening mammogram [facility] Diagnosis Encounter for screening mammogram for malignant neoplasm of breast Other screening mammogram [facility]* Diagnosis Abnormal mammogram- Primary Abnormal mammogram, unspecified [facility]* Diagnosis 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, with long-term current use of insulin, unspecified laterality (HCC) [facility] Diagnosis Lung nodule- Primary Solitary pulmonary nodule Former cigarette smoker Personal history of tobacco use, presenting hazards to health Mild persistent asthma without complication Unspecified asthma [facility] Diagnosis Lung nodules Other nonspecific abnormal finding of lung field [facility]* Diagnosis Dysuria- Primary [facility]* Diagnosis Lung nodules- Primary Other nonspecific abnormal finding of lung field [facility]* Diagnosis Lung nodules- Primary Other nonspecific abnormal finding of lung field [facility]* Diagnosis OAB (overactive bladder) Hypertonicity of bladder [facility]* Diagnosis Abnormal mammogram Abnormal mammogram, unspecified [facility] Diagnosis Onychomycosis- Primary Dermatophytosis of nail Onychocryptosis Ingrowing nail Diabetic polyneuropathy associated with type 2 diabetes mellitus (HCC) Pain in toe of left foot Pain in limb Pain in toe of right foot Pain in limb [facility] Diagnosis Mild persistent asthma without complication (HCC)- Primary Unspecified asthma Lung nodules Other nonspecific abnormal finding of lung field Post-nasal drip Postnasal drip [facility]* Diagnosis Lung nodules Other nonspecific abnormal finding of lung field [facility] Diagnosis Urinary frequency- Primary Muscle spasm Spasm of muscle [facility] Diagnosis Gastroparesis due to secondary diabetes (HCC)- Primary Secondary diabetes mellitus with neurological manifestations, not stated as uncontrolled, or unspecified Medicare annual wellness visit, subsequent Routine general medical examination at a health care facility Mixed hyperlipidemia Seasonal allergic rhinitis, unspecified trigger Essential hypertension Unspecified essential hypertension Essential tremor Essential and other specified forms of tremor Primary hypertension Unspecified essential hypertension Chronic cough Cough Lung nodules Other nonspecific abnormal finding of lung field 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, with long-term current use of insulin, unspecified laterality (HCC) Inflammatory polyarthritis (HCC) Unspecified inflammatory polyarthropathy Age-related osteoporosis without current pathological fracture Senile osteoporosis Class 2 obesity with body mass index (BMI) of 36.0 to 36.9 in adult, unspecified obesity type, unspecified whether serious comorbidity present History of breast cancer Personal history of malignant neoplasm of breast History of cervical cancer Personal history of malignant neoplasm of cervix uteri Diabetic retinopathy of right eye associated with type 2 diabetes mellitus, macular edema presence unspecified, unspecified retinopathy severity (HCC) Gastroesophageal reflux disease with esophagitis without hemorrhage Subclinical hypothyroidism Other specified acquired hypothyroidism H/O left mastectomy Acquired absence of breast and nipple Anxiety Anxiety state, unspecified Sleep apnea, unspecified type Gastroparesis [facility] Author Reji Nelson [facility] June 21, 2023 7:35pm Note Date/Time June 21, 2023 7 :12pm [facility] Medical Records Department [address] [place] [address] H&P Exam - Hospitalist 06/21/23 1842 MR#: [id number] Acct: [id number] Name: MANISHA KEITH Rep #:[id number] : 1950 73 From: Reji arango MD PCP: Dr. Ilir Hernández MD Status:ADM I N Location: [facility] [id number] HPI - General General Date of Admission: 06/21/23 HPI Narrative MANISHA KEITH, is a 73 F who presents to the hospital with increasing shortness of breath and coughing. The coughing started about 2 years ago and was likely related to her lisinopril she has been transitioned to losartan. Sheis also been having increasing shortness of breath and she has been a smoker forabout 20 years at a pack a day and she was supposed to have pulmonary function testing today however she was extremely short of breath and was using her inhaler so they could not do the test but they sent her to the ER for evaluation. She is requiring 4 L nasal cannula and was down to 84% on room air in the ER, she does not wear oxygen at home. She did have an elevated D-dimer CTA of the chest was negative for PE it did show a possible right apical small consolidation which is unlikely to be causing her hypoxia. She does relate thatshe had a sister who at the age of 42 from COPD and she had asthma as a kid. She denies any abdominal pain but she has been having fevers over the lastfor 5 days, UA is positive for UTI here in the ER. She also relates that she had a punctate rash on her right lower extremity that was biopsied by her PCP, pathology is currently pending unclear if there is a correlation between the rash and her potential pulmonary issues. [facility] Medical History (Updated 06/21/23 @ 19:[address] Reji Nelson MD) Allergic rhinitis Anxiety Arthritis Asthma Back problem Breast cancer Breast lump Calcium deficiency Cancer Cardiology follow-up encounter Carpal tunnel syndrome Cataract Chronic bronchitis Chronic cough COPD (chronic obstructive pulmonary disease) Diabetes Dietary restriction Diverticulosis Easy bruising Essential hypertension Former smoker Gall stone Gastrointestinal problem GERD (gastroesophageal reflux disease) History of cervical cancer History of Clostridium difficile infection History of edema History of gastrostomy tube placement History of Holter monitoring History of stress test History of vaginal delivery Hives IBS (irritable bowel syndrome) Inflammatory polyarthritis Injury of head and neck Internal hemorrhoids Leg cramps Loss of consciousness MSSA (methicillin susceptible Staphylococcus aureus) pneumonia Neuropathy OAB (overactive bladder) Obesity Osteoarthritis Osteoporosis Pancreatitis Recurrent infections Restless legs Rhabdomyolysis (04/2017) Seasonal allergies Shortness of breath on exertion Sleep apnea Urinary incontinence UTI (urinary tract infection) Vision problems Wears dentures Wears glasses Home Medications fluticasone propionate 50 mcg/actuation nasal spray,suspension 1 spray intranasal DAILY PRN NASAL CONGESTION 01/30/14 [History Last Taken 06/20/23] methotrexate sodium 2.5 mg tablet 20 mg PO TEJADA BREAST CANCER 04/16/17 [History Last Taken 06/19/23] albuterol sulfate 90 mcg/actuation aerosol inhaler (ProAir HFA) 2 puff inhalation Q4H PRN SHORTNESS OF BREATH 06/05/21 [History Last Taken Unknown] escitalopram oxalate 10 mg tablet (Lexapro) 10 mg PO DAILY PRN DEPRESSION 06/05/21 [History Last Taken 1 Week Ago ~05/29/21] fluticasone fur. 100 mcg-umeclid 62.5 mcg-vilant 25 mcg inhalat.powder (Trelegy Ellipta) 1 inh inhalation DAILY SHORTNESS OF BREATH 06/05/21 [History Last Taken 1 Week Ago ~05/29/21] folic acid 1 mg tablet 2 mg PO DAILY SUPPLEMENT 06/05/21 [History Last Taken 06/20/23] hydrochlorothiazide 12.5 mg capsule 12.5 mg PO DAILY BLOOD PRESSURE 06/05/21 [History Last Taken 06/20/23] losartan 100 mg tablet 100 mg PO DAILY BLOOD PRESSURE 06/05/21 [History Last Taken 06/20/23] ostomy supplies ([employer] Protect Barrier Wipes) #50 ea 02/02/22 [Rx Last Taken Unknown] aspirin 81 mg tablet,delayed release (Adult Low Dose Aspirin) 81 mg PO DAILY HEART HEALTH 02/05/22 [History Last Taken 06/20/23] gabapentin 300 mg capsule 300 mg PO QHS NEUROPATHY 02/05/22 [History Last Taken 06/20/23] oxybutynin chloride 10 mg tablet,extended release 24 hr 20 mg PO DAILY OVERACTIVE BLADDER 02/05/22 [History Last Taken 06/20/23] metoprolol succinate 100 mg tablet,extended release 24 hr 100 mg PO DAILY BLOOD PRESSURE 02/24/22 [History Last Taken 06/20/23] esomeprazole magnesium 40 mg capsule,delayed release (Nexium) 40 mg PO DAILY ACID REFLUX 11/26/22 [History Last Taken 06/20/23] loratadine 10 mg tablet 10 mg PO DAILY PRN ALLERGIES 11/26/22 [History Last Taken Unknown] metformin 500 mg tablet,extended release 24 hr 500 mg PO BREAKFAST DIABETES 11/26/22 [History Last Taken Unknown] pen needle, diabetic 32 gauge x 5/32 (BD Ultra-Fine Tish Pen Needle) #100 ea 11/26/22 [Rx Last Taken Unknown] atorvastatin 20 mg tablet 20 mg PO DAILY CHOLESTEROL 06/21/23 [History Last Taken 06/20/23] fexofenadine 180 mg tablet ([place] Allergy) 180 mg PO BID ALLERGIES 06/21/23 [History Last Taken 06/20/23] insulin regular hum U-500 conc 500 unit/mL(3 mL) subcut pen (Humulin R U-500 (Conc) Insulin Kwikpen) 75 unit subcut TIDCM 06/21/23 [History Last Taken 06/21/23] metaxalone 800 mg tablet 800 mg PO TID PRN MUSCLE CRAMPS 06/21/23 [History Last Taken Unknown] nitrofurantoin monohydrate/macrocrystals 100 mg capsule 100 mg PO BID UTI 06/21/23 [History Last Taken 06/20/23] verapamil 120 mg tablet,extended release 120 mg PO QHS BLOOD PRESSURE 06/21/23 [History Last Taken 06/20/23] Allergy/AdvReac Type Severity Reaction Status Date / Time JESENIA Inhibitors Allergy Intermediate Cough Verified 06/21/23 15:28 adhesive tape Allergy Intermediate blisters Verified 06/21/23 15:28 dulaglutide [From Trulicity] Allergy Intermediate Gastropares Verified 06/21/23 15:28 is chondroitin sulfate A Allergy Rash Verified 06/21/23 15:28 [From DuoVisc Visco Elastic] hyaluronic acid Allergy Rash Verified 06/21/23 15:28 [From DuoVisc Visco Elastic] NSAIDS (Non-Steroidal Allergy Other Verified 06/21/23 15:28 Anti-Inflamma Family History (Updated 06/21/23 @ 19:[address] Reji Nelson MD) Other Alcohol abuse Anxiety Arthritis Asthma defect COPD (chronic obstructive pulmonary disease) Cancer Diabetes High cholesterol Hypertension Seizures Surgical History History of appendectomy History of colonoscopy History of hysterectomy History of left mastectomy History of nasal cauterization Social History Smoking Status: Former smoker alcohol intake: current alcohol intake frequency: 0-2 drinks per day substance use type: does not use what type of physical activity do you participate in: none Vital Signs Vital Signs Vital Signs: 06/21/23 15:28 06/21/23 15:50 06/21/23 15:50 Temperature 97.2 F L Temperature Source Temporal Pulse Rate 113 H Respiratory Rate 20 H Respiratory Effort Short of Breath Respiratory Pattern Normal Blood Pressure 157/80 H Blood Pressure Mean 105 Pulse Ox 90 Oxygen Delivery Method Room Air Room Air Room Air Oxygen Flow Rate (L/min) 06/21/23 15:56 06/21/23 16:00 06/21/23 16:00 Temperature Temperature Source Pulse Rate 107 H Respiratory Rate 16 Respiratory Effort Respiratory Pattern Normal Blood Pressure Blood Pressure Mean Pulse Ox 94 94 Oxygen Delivery Method Nasal Cannula Nasal Cannula Oxygen Flow Rate (L/min) 2 2 06/21/23 18:07 Temperature Temperature Source Pulse Rate 107 H Respiratory Rate 20 H Respiratory Effort Respiratory Pattern Blood Pressure 156/83 H Blood Pressure Mean 107 Pulse Ox 94 Oxygen Delivery Method Nasal Cannula Oxygen Flow Rate (L/min) 4 Weight Weight: 211 lb 6.773 oz Body Mass Index (BMI) 38.9 Physical Exam Narrative General: Alert, Oriented x3, Cooperative, No apparent distress HEENT: Atraumatic, PERRLA, EOMI, Normocephalic Oral: Moist Mucosa Neck: Supple, No JVD Lungs: Diminished, poor air movement, No rhonchi, small expiratory wheeze right lower lobe, No rales Cardiovascular: Tachycardic, Regular Rhythm, Normal S1, Normal S2, No murmurs Abdomen: Soft, Non Tender, Non-Distended, No Hepato-splenomegaly Extremities: Edema, Capillary Refill Less than 3 Seconds Skin: Small petechial rash on the right lower extremity no erythema Musculoskeletal: No Tenderness to Palpation of Joints or Extremities Neurological: Cranial nerves II-XII grossly intact, Motor Exam 5/5 strength throughout, Sensory exam intact to light touch and pain Psych/Mental Status: Normal Affect, Appropriate Results Lab / Micro Data 06/21/23 16:15 06/21/23 16:15 Labs: Laboratory Results - last 24 hr 06/21/23 15:49: POC Glucose 344 H 06/21/23 15:52: WBC Cancelled, Corrected WBC Cancelled, RBC Cancelled, Hgb Cancelled, Hct Cancelled, MCV Cancelled, MCH Cancelled, MCHC Cancelled, RDW Std Deviation Cancelled, RDW Coeff of Tom Cancelled, Plt Count Cancelled, MPV Cancelled, Immature Gran % (Auto) Cancelled, Neut % (Auto) Cancelled, Lymph % (Auto) Cancelled, [place] % (Auto) Cancelled, Eos % (Auto) Cancelled, Baso % (Auto)Cancelled, Absolute Neuts (auto) Cancelled, Absolute Lymphs (auto) Cancelled, Total Counted Cancelled, Neutrophils % (Manual) Cancelled, Band Neutrophils % Cancelled, Lymphocytes % (Manual) Cancelled, Monocytes % (Manual) Cancelled, Eosinophils % (Manual) Cancelled, Basophils % (Manual) Cancelled, Metamyelocytes% Cancelled, Myelocytes % Cancelled, Promyelocytes % Cancelled, Blast Cells % Cancelled, Plasma Cell % (Manual) Cancelled, Other Cells % Cancelled, Nucleated RBC % Cancelled, Nucleated RBCs/100 WBC Cancelled, Differential Comment Cancelled, Diff Path Review Cancelled, Hypersegmented Neuts Cancelled, Atypical Lymphocytes Cancelled, Reactive Lymphocytes Cancelled, Smudge Cells Cancelled, Toxic Granulation Cancelled, Toxic Vacuolation Cancelled, Dohle Bodies Cancelled, Stacia Rods Cancelled, Platelet Estimate Cancelled, Plt Morphology Comment Cancelled, RBC Morphology Cancelled 06/21/23 15:52: RBC Morphology Cancelled, Polychromasia Cancelled, HypochromasiaCancelled, Poikilocytosis Cancelled, Basophilic Stippling Cancelled, Anisocytosis Cancelled, Microcytosis Cancelled, Macrocytosis Cancelled, Spherocytes Cancelled, Sickle Cells Cancelled, Target Cells Cancelled, Tear DropCells Cancelled, Ovalocytes Cancelled, Stomatocytes Cancelled, [place] Bodies Cancelled, Cristela Cells Cancelled, Bite Cells Cancelled, Crenated Cell Cancelled, Acanthocytes (Spur) Cancelled, Rouleaux Cancelled, Schistocytes Cancelled, Sodium Cancelled, Potassium Cancelled, Chloride Cancelled, Carbon Dioxide Cancelled, Anion Gap Cancelled, BUN Cancelled, Creatinine Cancelled, Estim Creat Clear Calc Cancelled, Est GFR (MDRD) Af Amer Cancelled, Est GFR (MDRD) Non-Af Cancelled, BUN/Creatinine Ratio Cancelled, Glucose Cancelled, Calcium Cancelled, Total Bilirubin Cancelled, AST Cancelled, ALT Cancelled, Alkaline Phosphatase Cancelled, Total Protein Cancelled, Albumin Cancelled, GlobulinCancelled, Albumin/Globulin Ratio Cancelled 06/21/23 16:05: PT 14.0, INR 1.1, APTT 28.4, D-Dimer Quant (PE/DVT) 1.66 H*, Lactic Acid 1.4 06/21/23 16:15: WBC 15.6 H, RBC 3.89 L, Hgb 11.9 L, Hct 36.8 L, MCV 94.6, MCH 30.6, MCHC 32.3, RDW Std Deviation 45.2 H, RDW Coeff of Tom 13.2, Plt Count 272,MPV 9.1, Immature Gran % (Auto) 0.600, Neut % (Auto) 79.9 H, Lymph % (Auto) 8.1 L, [place] % (Auto) 4.9, Eos % (Auto) 5.8 H, Baso % (Auto) 0.7, Absolute Neuts (auto) 12.5 H, Absolute Lymphs (auto) 1.26, Nucleated RBC % 0, Sodium 134 L, Potassium 4.3, Chloride 99, Carbon Dioxide 26.0, Anion Gap 9, BUN 15, Creatinine1.10 H, Est GFR (MDRD) Af Amer 63, Est GFR (MDRD) Non-Af 52 L, BUN/Creatinine Ratio 13.6, Glucose 333 H, Calcium 8.5, Total Bilirubin 0.60, AST 14 L, ALT 16, Alkaline Phosphatase 69, Total Protein 7.6, Albumin 2.8 L, Globulin 4.8 H, Albumin/Globulin Ratio 0.6 L 06/21/23 17:00: Urine Color Yellow, Urine Clarity Clear, Urine pH 5.0, Ur Specific [place] 1.020, Urine Protein 30 H, Urine Glucose (UA) 1000 H, Urine Ketones 150 A*, Urine Occult Blood 10 H, Urine Nitrite Negative, Urine BilirubinNegative, Urine Urobilinogen 1 H, Ur Leukocyte Esterase 500 H, Urine RBC 0 SEEN,Urine WBC 5-10 SEEN, Ur Squamous Epith Cells 5-10 SEEN, Urine Bacteria 1+, UrineMucus 0 SEEN Micro: Microbiology 06/21/23 15:52 Nasal Secretion SARS-CoV-2 & FLU Antigen (Rapid) - Final Radiology Impression Chest X-Ray 06/21/23 15:41 IMPRESSION: Mild basilar atelectasis. Electronically Signed: Saúl Diaz DO at 16:43 EST , Chest CTA 06/21/23 16:58 IMPRESSION: No demonstrated pulmonary embolism or arterial dissection. Bilateral basilar atelectasis. Interstitial prominence. Possible small focal right apical infiltrate. Small left pleural effusion. Cholelithiasis. Fatty liver. Left adrenal nodule. Electronically Signed: Saúl Diaz DO at 18:08 EST , Assessment & Plan Assessment/Plan (1) UTI (urinary tract infection): PLAN: Plan 1. UTI ? Appears that she was on nitrofurantoin as an outpatient however we have no culture data issues continue to have a leukocytosis and she is been having fevers for the last for over a days ? We will obtain a urine culture ? Continue with IV Rocephin ? She does have a history of urinary incontinence however given the setting of aUTI we will hold her oxybutynin 2. Likely COPD exacerbation ? He does have some expiratory wheezing in her right lower base and this is after a DuoNeb ? She is supposed to be on inhalers as an outpatient but she says that she neverhad any pulmonary function testing which was supposed to happen today ? We will continue with Solu-Medrol as well as DuoNebs ? Her sister at the age of 42 from COPD 3. HTN/HLD ? Blood pressures are stable, can resume her home blood pressure medications ? We will monitor and make adjustments as necessary ? She had an echo about a year ago with normal EF and stage I diastolic dysfunction, will obtain a BNP 4. DM2 ? She is on extensive insulin regimen which we will resume as she is being started on steroids ? We will hold metformin ? Accu-Cheks ACHS ? Sign scale insulin ? We will monitor and make adjustments as necessary 5. Anxiety/depression ? Stable ? Continue with her home medications 6. GERD ? Stable ? Continue with PPI 6. She states that she is on methotrexate for osteoarthritis I asked if she meant that she had rheumatoid arthritis she says no that she specifically takes it for osteoarthritis in the med rec it states that she is taking it for breast cancer. Regardless she took it on Tuesday and she is not due again for another 5days. I discussed with her the need to follow-up with whoever prescribed the methotrexate to clarify the purpose of the medication DVT: Lovenox 75 minutes was spent on direct patient care, including documentation as well as chart review and collaboration with colleagues Charges/Coding Visit Charges Inpatient E&M: 24450 Init Hosp L3 06/21/231934 <Electronically signed by Reji Nelson MD> Cosigner Signature (if applicable): CC: Dr. Reji Nelson MD; Dr. Ilir Hernández MD~ Signed [facility] Work Phone: Reason for referral (narrative)* Diagnostic Procedure Only (Routine) - Pending Review Specialty Diagnoses / Procedures Referred By Pooja martins Referred To Contact [facility] Diagnoses Screening breast examination Encounter for screening mammogram for malignant neoplasm of breast Procedures JACQUELYN SCREENING W CHANELLE SCREENING DIGITAL BREAST TOMOSYNTHESIS BI SCREENING MAMMOGRAPHY BI 2-VIEW BREAST INC CAD Ilir Hernández MD [address] [place] [address] [facility] [address] [place] [address] Referral ID Status Reason Start Date Expiration Date Visits Requested Visits Authorized [id number] Pending Review Auto-Generat ed Referral 06/23/2022 07/23/2023 1 1 * Consult, Test, Treat (Routine) - Authorized Specialty Diagnoses / Procedures Referred By Pooja martins Referred To Contact Diagnoses RICARDO (obstructive sleep apnea) Chronic insomnia Procedures CONSULT TO SLEEP MEDICINE - ADULT OFFICE/OUTPATIENT NEW HIGH MDM 60-74 MINUTES Ilir Hernández MD [address] [place] [address] Referral ID Status Reason Start Date Expiration Date Visits Requested Visits Authorized [id number] Authorized PCP Requested Referral 06/23/2022 06/23/2023 1 1 [facility] for referral (narrative)* Outpatient Procedure (Routine) - Authorized Specialty Diagnoses / Procedures Referred By Contac t Referred To Contact HEART [facility] Diagnoses SOB (shortness of breath) Chronic cough Procedures ECHO ECHO TTHRC R-T 2D W/WOM-MODE COMPL SPEC&COLR D Ilir Hernández [place] [address] [place] [address] [facility] [place] [address] [place] [address] Referral ID Status Reason Start Date Expiration Date Visits Requested Visits Authorized [id number] Authorized Auto-Generat ed Referral 05/06/2023 05/05/2024 1 1 * Diagnostic Procedure Only (Urgent) - Pending Review Specialty Diagnoses / Procedures Referred By Pooja t Referred To Contact [facility] IM[facility]ING Diagnoses Localized edema Procedures US DVT LOWER BILATERAL DUP-SCAN XTR VEINS COMPLETE BILATERAL STUDY Ilir Hernández MD [address] [place] [address] [place] [address] Referral ID Status Reason Start Date Expiration Date Visits Requested Visits Authorized [id number] Pending Review Auto-Generat ed Referral 05/06/2023 06/04/2024 1 1 * Outpatient Procedure (Routine) - Authorized Specialty Diagnoses / Procedures Referred By Contac t Referred To Contact [facility] Diagnoses SOB (shortness of breath) Chronic cough Procedures LUNG DIFFUSION CAPACITY (DLCO) DIFFUSING CAPACITY Ilir Hernández MD [address] [place] [address] Respiratory [place] [facility] [place] [address] Referral ID Status Reason Start Date Expiration Date Visits Requested Visits Authorized [id number] Authorized Auto-Generat ed Referral 05/06/2023 06/04/2024 1 1 * Outpatient Procedure (Routine) - Authorized Specialty Diagnoses / Procedures Referred By Pooja t Referred To Contact [facility] Diagnoses SOB (shortness of breath) Chronic cough Procedures SPIROMETRY WITH DILATOR IF OBSTRUCTED BRNCDILAT RSPSE SPMTRY PRE&POST-BRNCDILAT ADMN Ilir Hernández MD [address] [place] [address] [address] Referral ID Status Reason Start Date Expiration Date Visits Requested Visits Authorized [id number] Authorized Auto-Generat ed Referral 05/06/2023 06/04/[address] [facility] for referral (narrative)* Diagnostic Procedure Only (Urgent) - Authorized Specialty Diagnoses / Procedures Referred By Pooja martins Referred To Contact US IMAGING Diagnoses Left flank pain Procedures US KIDNEY/BLADDER US RETROPERITONEAL REAL TIME W/IMAGE COMPLETE Meron Ramos APRN.CHRISTA [address] [place] [address] Us Imaging [facility] Referral ID Status Reason Start Date Expiration Date Visits Requested Visits Authorized [id number] Authorized Auto-Generat ed Referral 06/15/2023 07/14/[address] [facility] for referral (narrative)* Diagnostic Procedure Only (Routine) - Closed Specialty Diagnoses / Procedures Referred By Pooja martins Referred To Contact [facility] Diagnoses Screening breast examination Encounter for screening mammogram for malignant neoplasm of breast Procedures JACQUELYN SCREENING W CHANELLE SCREENING DIGITAL BREAST TOMOSYNTHESIS BI SCREENING MAMMOGRAPHY BI 2-VIEW BREAST INC CAD Ilir Hernández MD [address] [place] [address] [facility] [address] [place] [address] Referral ID Status Reason Start Date Expiration Date V isits Requested Visits Authorized [id number] Closed Auto-Generate d Referral 06/23/2022 07/23/[address] [facility] for referral (narrative)* Diagnostic Procedure Only (Urgent) - Closed Specialty Diagnoses / Procedures Referred By Contac t Referred To Contact US IMAGING Diagnoses Left flank pain Procedures US KIDNEY/BLADDER US RETROPERITONEAL REAL TIME W/IMAGE COMPLETE Meron Ramos, LIVIA.MATERIAL LOADER [address] [place] [address] [place] [address] Referral ID Status Reason Start Date Expiration Date V isits Requested Visits Authorized [id number] Closed Auto-Generate d Referral 06/15/2023 07/14/[address] [facility] for referral (narrative)* Outpatient Procedure (Routine) - Pending Review Specialty Diagnoses / Procedures Referred By Contac t Referred To Contact [facility] Diagnoses Chronic cough Procedures METHACHOLINE CHALLENGE INHLJ BRNCL CHALLENGE TSTG W/HISTAM/METHACHOL Yunier Owen MD [address] [facility] [place] [address] Respiratory [place] [address] [place] [address] Referral ID Status Reason Start Date Expiration Date Visits Requested Visits Authorized [id number] Pending Review Auto-Generat ed Referral 06/21/2023 07/20/[address] [facility] for referral (narrative)* Diagnostic Procedure Only (Urgent) - Closed Specialty Diagnoses / Procedures Referred By Contac t Referred To Contact XR IMAGING Diagnoses Low back pain, unspecified back pain laterality, unspecified chronicity, unspecified whether sciatica present Procedures XR LUMBAR GENERAL 3V AP/LAT/L5-S1 RADEX SPINE LUMBOSACRAL 2/3 VIEWS Joana Naranjo APRN.MATERIAL LOADER [address] [place] [address] [place] [address] Referral ID Status Reason Start Date Expiration Date V isits Requested Visits Authorized [id number] Closed Auto-Generate d Referral 09/23/2021 10/23/2022 1 1 * Diagnostic Procedure Only (Urgent) - Closed Specialty Diagnoses / Procedures Referred By Contac t Referred To Contact XR IMAGING Diagnoses Low back pain, unspecified back pain laterality, unspecified chronicity, unspecified whether sciatica present Procedures XR SACRUM/COCCYX 3V AP/LAT RADEX SACRUM & COCCYX MINIMUM 2 VIEWS Joana Naranjo APRN.MATERIAL LOADER [address] [place] [address] [place] [address] Referral ID Status Reason Start Date Expiration Date V isits Requested Visits Authorized [id number] Closed Auto-Generate d Referral 09/23/2021 10/23/2022 1 [facility]No reason for referral information availableHowells Nobl Services Work Phone: Reason for visit Narrative* Diagnostic Procedure Only (Routine) - Closed Specialty Diagnoses / Procedures Referred By Contjayson t Referred To Contact [facility] Diagnoses Screening breast examination Encounter for screening mammogram for malignant neoplasm of breast Procedures JACQUELYN SCREENING W CHANELLE SCREENING DIGITAL BREAST TOMOSYNTHESIS BI SCREENING MAMMOGRAPHY BI 2-VIEW BREAST INC CAD Ilir Hernández MD [address] [place] [address] [facility] [address] [place] [address] Referral ID Status Reason Start Date Expiration Date V isits Requested Visits Authorized [id number] Closed Auto-Generate d Referral 06/23/2022 07/23/[address] [facility] for visit Narrative* Diagnostic Procedure Only (Routine) - Closed Specialty Diagnoses / Procedures Referred By Contac t Referred To Contact [facility] Diagnoses Encounter for gynecological examination (general) (routine) without abnormal findings Encounter for screening mammogram for breast cancer Procedures JACQUELYN SCREENING W CHANELLE SCREENING DIGITAL BREAST TOMOSYNTHESIS BI SCREENING MAMMOGRAPHY BI 2-VIEW BREAST INC CAD Cara Cleveland, 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 [address] [place] [address] [facility] [address] [place] [address] Referral ID Status Reason Start Date Expiration Date V isits Requested Visits Authorized [id number] Closed Auto-Generate d Referral 08/02/2023 08/31/[address] [facility] for visit Narrative* Diagnostic Procedure Only (Urgent) - Closed Specialty Diagnoses / Procedures Referred By Pooja martins Referred To Contact XR IMAGING Diagnoses Low back pain, unspecified back pain laterality, unspecified chronicity, unspecified whether sciatica present Procedures XR LUMBAR GENERAL 3V AP/LAT/L5-S1 RADEX SPINE LUMBOSACRAL 2/3 VIEWS Joana Naranjo, 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 [address] [place] [address] [place] [address] Referral ID Status Reason Start Date Expiration Date V isits Requested Visits Authorized [id number] Closed Auto-Generate d Referral 09/23/2021 10/23/[address] [facility] for visit Narrative* Diagnostic Procedure Only (Routine) - Closed Specialty Diagnoses / Procedures Referred By Pooja t Referred To Contact [facility] Diagnoses Encounter for screening mammogram for malignant neoplasm of breast Procedures JACQUELYN SCREENING SCREENING MAMMOGRAPHY BI 2-VIEW BREAST INC CAD Ilir Hernández MD [address] [place] [address] Phone: tel: fax: [facility] [address] [place] [address] Referral ID Status Reason Start Date Expiration Date V isits Requested Visits Authorized [id number] Closed Auto-Generate d Referral 10/06/2024 10/26/[address] [facility] for visit Narrative* Diagnostic Procedure Only (Routine) - Closed Specialty Diagnoses / Procedures Referred By Pooja martins Referred To Contact [facility] Diagnoses Abnormal mammogram Procedures JACQUELYN DIAGNOSTIC RIGHT DIAGNOSTIC MAMMOGRAPHY COMPUTER-AIDED DETCJ Ilir Ritchie MD [address] [place] [address] Phone: tel: fax: [facility] [address] [place] [address] Referral ID Status Reason Start Date Expiration Date V isits Requested Visits Authorized [id number] Closed Auto-Generate d Referral 10/09/2024 11/08/[address] [facility] for visit Narrative* MRI/CT (Routine) - Closed Specialty Diagnoses / Procedures Referred By Contac t Referred To Contact CT IMAGING Diagnoses Lung nodules Procedures CT CHEST WO IVCON DIAGNOSTIC COMPUTED TOMOGRAPHY THORAX W/O Yunier Dalton MD [address] [place] [address] Phone: tel: fax: [place] [address] Referral ID Status Reason Start Date Expiration Date V isits Requested Visits Authorized [id number] Closed Auto-Generate d Referral 02/18/2025 11/18/2025 1 1 [facility] Summary Purpose Family History Relationship Condition Age at Onset Recorded Date/T shantel Not Specified Diabetes mellitus Unknown Alcohol abuse Unknown Dysmorphism Unknown High blood cholesterol Unknown Anxiety Unknown Arthritis Unknown Seizure Unknown Malignant neoplasm Unknown Hypertension Unknown Asthma Unknown Relationship Condition Age at Onset Recorded Date/T shantel Not Specified Diabetes mellitus Unknown Alcohol abuse Unknown Dysmorphism Unknown High blood cholesterol Unknown Anxiety Unknown Arthritis Unknown Seizure Unknown Chronic obstructive pulmonary disease Unk nown Malignant neoplasm Unknown Hypertension Unknown Asthma Unknown Advance Directives Documents on File Type Date Recorded 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 Advance Directive(s) 12/17/2020 7:02 AM Advance Directive(s) 04/10/2019 8:41 AM Advance Directive(s) 03/28/2019 4:38 PM Advance Directive Response Recorded Date/ Time Advance Directives No March 10 11:46am Living Will Yes June 05 12:29pm Power of Field Manager Yes June 05, 2021 12:29pm Advance Directive Response Recorded Date/ Time Name of Medical Power of Field Manager Luisa miller February 08, 2022 8:26am Advance Directives No March 10 11:46am Living Will No February 08, 2022 8:26am Power of Field Manager Yes February 08 8:26am Advance Directive Response Recorded Date/ Time Name of Medical Power of Field Manager Luisa miller February 08, 2022 8:26am Advance Directives No March 10 11:46am Living Will No May 02, 2022 10:19am Power of Field Manager No April 10:19am Advance Directive Response Recorded Date/ Time Advance Directives No March 10 10:46am Living Will No May 02, 2022 9:19am Power of Field Manager No April 9:19am Advance Directive Response Recorded Date/ Time Advance Directives No March 10 11:46am Living Will No December 04, 2022 3:07am Power of Field Manager No December 04 3:07am Advance Directive Response Recorded Date/ Time Name of Medical Power of Field Manager faraz snider June 21, 2023 3:50pm Advance Directives No March 10 10:46am Living Will Yes June 21 3:50pm Power of Field Manager Yes June 21, 2023 3:50pm Advance Directive Response Recorded Date/ Time Name of Medical Power of Field Manager laxmi nunez June 21, 2023 8:09pm Advance Directives No March 10 10:46am Living Will Yes June 21 8:09pm Power of Field Manager Yes June 21, 2023 8:09pm Advance Directive Response Recorded Date/ Time Name of Medical Power of Field Manager laxmi nunez June 21, 2023 8:09pm Name of Medical Power of Field Manager MICA ROMERO October 10, 2023 11:54pm Advance Directives No March 10 10:46am Living Will No October 11, 024 4:26am Power of Field Manager No October 11, 2023 4:26am Advance Directive Response Recorded Date/ Time Name of Medical Power of Field Manager MICA ROMERO October 11, 2023 12:54am Name of Medical Power of Field Manager Mica Redd November 17, 2023 10:57am Advance Directives No March 10 11:46am Living Will Yes November 17, 2023 10:57am Power of Field Manager Yes November 16 10:57am Advance Directive Response Recorded Date/ Time Name of Medical Power of Field Manager MICA ROMERO October 11, 2023 12:54am Name of Medical Power of Field Manager Mica Redd November 17, 2023 5:26pm Advance Directives No March 10 11:46am Living Will Yes November 17, 2023 5:26pm Power of Field Manager Yes November 16 5:26pm Advance Directive Response Recorded Date/ Time Advance Directives No March 10 11:46am Chief Complaint and Reason for Visit Chief Complaint S/O- ARTHRITIS/PAIN- COPY PCP R/S, CANCLED LAST APPOINTMENT, F/U Gastroparesis 1 M FU Reason for Visit Diabetes mellitus, t ype II Hypertension Obesity Urinary incontinence Diabetes mellitus, type II Hypertension Obesity Chief Complaint S/O- ARTHRITIS/PAIN- COPY PCP R/S, CANCLED LAST APPOINTMENT, F/U Gastroparesis 1 M FU PAIN- COPY PCP Reason for Visit Diabetes mellitus, t ype II Hypertension Obesity Urinary incontinence Diabetes mellitus, type II Hypertension Obesity Chief Complaint R/S, CANCLED LAST AP POINTMENT, F/U Gastroparesis 1 M FU PAIN- COPY PCP 2 M FU Amb Documentation Reason for Visit Diabetes mellitus, t ype II Hypertension Obesity Gastroparesis Urinary incontinence Diabetes mellitus, type II Hypertension Obesity Diabetes Presence of insulin pump Hyperlipidemia Hypertension Obesity Chief Complaint 1 M FU PAIN- COPY PCP 2 M FU Amb Documentation tachycardia 2 WK FU AFIB 1 M FU Reason for Visit Diabetes mellitus, t ype II Obesity Diabetes Hyperlipidemia Obesity Presence of insulin pump Rapid palpitations Essential hypertension Constipation Gastroparesis Insulin pump titration Diabetes Presence of insulin pump Chief Complaint PAIN- COPY PCP 2 M FU Amb Documentation tachycardia 2 WK FU AFIB 1 M FU S/O- PAIN- COPY PCP Reason for Visit Diabetes Hyperlipidemia Obesity Presence of insulin pump Rapid palpitations Essential hypertension Constipation Gastroparesis Insulin pump titration Diabetes Presence of insulin pump Chief Complaint 2 M FU Amb Documentation tachycardia 2 WK FU AFIB 1 M FU S/O- PAIN- COPY PCP ARM PAIN Reason for Visit Diabetes Hyperlipidemia Obesity Presence of insulin pump Rapid palpitations Essential hypertension Constipation Gastroparesis Insulin pump titration Diabetes Presence of insulin pump Chief Complaint tachycardia 2 WK FU AFIB 1 M FU S/O- PAIN- COPY PCP ARM PAIN 3 MO FU 2 M FU S/O- PAIN- COPY PCP Reason for Visit Rapid palpitations Essential hypertension Constipation Gastroparesis Insulin pump titration Diabetes Presence of insulin pump Constipation Gastroparesis Obesity Diabetes mellitus, type II Obesity Chief Complaint S/O- PAIN- COPY PCP 1 M FU 6 M FU TINGLING, NUMBESS IN FINGERS 3 M FU Reason for Visit Diabetes mellitus, t ype II Essential hypertension Osteoporosis Rapid palpitations Essential hypertension Constipation Gastroparesis Obesity Chief Complaint 6 M FU TINGLING, NUMBESS IN FINGERS 3 M FU 2 M FU 1 M FU general illness Reason for Visit Rapid palpitations Essential hypertension Constipation Gastroparesis Obesity CKD (chronic kidney disease) stage 3, GFR 30-59 ml/min Diabetes mellitus, type II Essential hypertension Osteoporosis Diabetes Obesity Presence of insulin pump Chief Complaint 1 M FU general illness S/O- PAIN COPY PCP PAIN- COPY PCP 2 M FU Reason for Visit Diabetes Obesity CKD (chronic kidney disease) stage 3, GFR 30-59 ml/min Diabetes Essential hypertension Hyperlipidemia Obesity Osteoporosis Chief Complaint 1 M FU general illness S/O- PAIN COPY PCP PAIN- COPY PCP 2 M FU RICARDO, SLEEP RELATED HYPOXIA S/O- PAIN- COPY PCP 6 MO FU Reason for Visit Diabetes Obesity CKD (chronic kidney disease) stage 3, GFR 30-59 ml/min Diabetes Essential hypertension Hyperlipidemia Obesity Osteoporosis Constipation Gastroparesis Obesity Chief Complaint RICARDO, SLEEP RELATED H YPOXIA S/O- PAIN- COPY PCP 6 MO FU EDEMA S/O- PAIN- COPY PCP Reason for Visit Constipation Gastroparesis Obesity Chief Complaint RICARDO, SLEEP RELATED H YPOXIA S/O- PAIN- COPY PCP 6 MO FU EDEMA S/O- PAIN- COPY PCP PNA, HYPOXIA Reason for Visit Constipation Gastroparesis Obesity UTI (urinary tract infection) Chief Complaint EDEMA S/O- PAIN- COPY PCP PNA, HYPOXIA UTI and HYPOXIA UTI WITH HYPOXIA UTI and HYPOXIA CHRONIC COUGH CHRONIC COUGH Reason for Visit UTI (urinary tract i nfection) COPD with acute exacerbation Chief Complaint EDEMA S/O- PAIN- COPY PCP PNA, HYPOXIA UTI and HYPOXIA UTI WITH HYPOXIA UTI and HYPOXIA CHRONIC COUGH CHRONIC COUGH 7 M FU, RS 05/25, RS 06/16 PAIN- COPY PCP Reason for Visit UTI (urinary tract i nfection) COPD with acute exacerbation Diabetes mellitus, type II Essential hypertension Obesity Osteoporosis Chief Complaint PNA, HYPOXIA UTI and HYPOXIA UTI WITH HYPOXIA UTI and HYPOXIA CHRONIC COUGH CHRONIC COUGH 7 M FU, RS 10/11, RS 1102 PAIN- COPY PCP LEFT HIP FRACTURE AFTER FALL WITH MYOTOXICITY D/T LEFT HIP FRACTURE AFTER FALL WITH MYOTOXICITY D/T LEFT HIP FRACTURE AFTER FALL WITH MYOTOXICITY D/T Reason for Visit UTI (urinary tract i nfection) COPD with acute exacerbation Diabetes mellitus, type II Essential hypertension Obesity Osteoporosis Closed left hip fracture Rhabdomyolysis Diabetes mellitus, type II Essential hypertension Chief Complaint CHRONIC COUGH CHRONIC COUGH 7 M FU, RS 1011, RS 1102 PAIN- COPY PCP LEFT HIP FRACTURE AFTER FALL WITH MYOTOXICITY D/T LEFT HIP FRACTURE AFTER FALL WITH MYOTOXICITY D/T LEFT HIP FRACTURE AFTER FALL WITH MYOTOXICITY D/T LABWORK LABWORK LAB WORK LAB WORK 3 M FU COPD EXA Reason for Visit Obesity Osteoporosis Rhabdomyolysis CKD (chronic kidney disease) stage 3, GFR 30-59 ml/min Diabetes Hyperlipidemia Obesity Osteoporosis Hypoxia COPD exacerbation COPD with acute exacerbation Chief Complaint CHRONIC COUGH CHRONIC COUGH 7 M FU, RS 10, RS 11 PAIN- COPY PCP LEFT HIP FRACTURE AFTER FALL WITH MYOTOXICITY D/T LEFT HIP FRACTURE AFTER FALL WITH MYOTOXICITY D/T LEFT HIP FRACTURE AFTER FALL WITH MYOTOXICITY D/T LABWORK LABWORK LAB WORK LAB WORK 3 M FU COPD EXA COPD EXA COPD EXA COPD EXA COPD EXA Reason for Visit Obesity Osteoporosis Rhabdomyolysis CKD (chronic kidney disease) stage 3, GFR 30-59 ml/min Diabetes Hyperlipidemia Obesity Osteoporosis Hypoxia COPD exacerbation COPD with acute exacerbation Chief Complaint CHRONIC COUGH 7 M FU, RS 10, RS 1102 PAIN- COPY PCP LEFT HIP FRACTURE AFTER FALL WITH MYOTOXICITY D/T LEFT HIP FRACTURE AFTER FALL WITH MYOTOXICITY D/T LEFT HIP FRACTURE AFTER FALL WITH MYOTOXICITY D/T LABWORK LABWORK LAB WORK LAB WORK 3 M FU COPD EXA COPD EXA COPD EXA COPD EXA COPD EXA STANDING ORDER - COPY PCP Reason for Visit Obesity Osteoporosis Rhabdomyolysis CKD (chronic kidney disease) stage 3, GFR 30-59 ml/min Diabetes Hyperlipidemia Obesity Osteoporosis COPD with acute exacerbation COPD exacerbation Hypoxia Chief Complaint Admit Date RECLAST October 03, 2024 2:48pm 6 M FU October 08, 2024 3:00pm S/O- PAIN- COPY PCP December 10, 2024 3:3 0pm 2 M FU January 21, 2025 1:48p m Reason for Visit Admit Date CKD (chronic kidney disease) stage 3, GF R 30-59 ml/min October 08, 2024 3:00pm Diabetes October 08, 2024 3:00pm Obesity October 08, 2024 3:00pm Osteoporosis October 08, 2024 3:00pm Diabetes January 21, 2025 1:48p m Hyperlipidemia January 21, 2025 1:48p m Obesity January 21, 2025 1:48p m Osteoporosis January 21, 2025 1:48p m Chief Complaint Admit Date S/O- PAIN- COPY PCP December 10, 2024 3:3 0pm 2 M FU January 21, 2025 1:48p m S/O- PAIN- COPY PCP March 04, 2025 10:4 4am Reason for Visit Admit Date Diabetes January 21, 2025 1:48p m Hyperlipidemia January 21, 2025 1:48p m Obesity January 21, 2025 1:48p m Osteoporosis January 21, 2025 1:48p m Chief Complaint Admit Date S/O- PAIN- COPY PCP December 10, 2024 3:3 0pm 2 M FU January 21, 2025 1:48p m S/O- PAIN- COPY PCP March 04, 2025 10:4 4am 2 M FU March 19, 2025 1:5 1pm Reason for Referral Specialty Diagnoses / Procedures Referred By Contac t Referred To Contact Orthopedics Diagnoses Cellulitis of left upper extremity Bursitis of left elbow, unspecified bursa Procedures CONSULT TO ORTHOPAEDICS OFFICE/OUTPATIENT [facility] 60-74 MINUTES Jd Mccabe, 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 [address] [place] [address] Referral ID Status Reason Start Date Expiration Date Visits Requested Visits Authorized [id number] Authorized PCP Requested Referral 05/03/2022 05/03/2023 1 1 Specialty Diagnoses / Procedures Referred By Contac t Referred To Contact CT IMAGING Diagnoses Lung nodules Procedures CT CHEST WO IVCON DIAGNOSTIC COMPUTED TOMOGRAPHY THORAX W/O CNTRST Usman Barboza PA-C [address] [place] [address] [place] [address] Referral ID Status Reason Start Date Expiration Date Visits Requested Visits Authorized [id number] Authorized Auto-Generat ed Referral 04/06/2023 05/05/2024 1 1 Specialty Diagnoses / Procedures Referred By Contac t Referred To Contact [facility] Diagnoses Lumbar pain Balance disorder Procedures CONSULT TO PHYSICAL THERAPY PHYSICAL THERAPY EVALUATION HIGH COMPLEX 45 MINS Usman Barboza PA-C [address] [place] [address] [facility] [place] [address] [place] [address] Referral ID Status Reason Start Date Expiration Date Visits Requested Visits Authorized [id number] Pending Review Auto-Generat ed Referral 04/11/2023 04/10/2024 1 1 Specialty Diagnoses / Procedures Referred By Contac t Referred To Contact Dermatology Diagnoses Dermatitis Procedures CONSULT TO DERMATOLOGY Ilir Hernández MD [address] [place] [address] Referral ID Status Reason Start Date Expiration Date Visits Requested Visits Authorized [id number] Ref Not Required PCP Requested Referral 3 06/12/2024 1 1 Specialty Diagnoses / Procedures Referred By Contac t Referred To Contact Pulmonary and Critical Care Medicine Diagnoses Chronic cough Procedures CONSULT TO PULM/CRITICAL CARE OFFICE/OUTPATIENT [facility] MDM 60-74 MINUTES Ilir Hernández MD [address] [place] [address] Referral ID Status Reason Start Date Expiration Date Visits Requested Visits Authorized [id number] Pending Review PCP Requested Referral 3 06/12/2024 1 1 Referral ID Status Reason Start Date Expiration Date V isits Requested Visits Authorized [id number] Closed Auto-Generate d Referral 04/15/2022 05/30/2022 1 1 Specialty Diagnoses / Procedures Referred By Contac t Referred To Contact CT IMAGING Diagnoses Nodule of right lung Procedures CT CHEST WO IVCON DIAGNOSTIC COMPUTED TOMOGRAPHY THORAX W/O CNTRST Usman Barboza PA-C [address] [place] [address] [place] [address] Referral ID Status Reason Start Date Expiration Date V isits Requested Visits Authorized [id number] Closed Auto-Generate d Referral 03/31/2023 10/31/2023 1 1 Specialty Diagnoses / Procedures Referred By Contac t Referred To Contact CT IMAGING Diagnoses Lung nodules Procedures CT CHEST WO IVCON DIAGNOSTIC COMPUTED TOMOGRAPHY THORAX W/O Yunier Dalton MD [address] [facility] [place] [address] Ct Imaging [id number] Referral ID Status Reason Start Date Expiration Date Visits Requested Visits Authorized [id number] Authorized Auto-Generat ed Referral 09/26/2023 08/27/2024 1 1 Referral ID Status Reason Start Date Expiration Date V isits Requested Visits Authorized [id number] Closed Auto-Generate d Referral 04/06/2023 05/05/2024 1 1 Referral ID Status Reason Start Date Expiration Date Visits Requested Visits Authorized [id number] Authorized Auto-Generat ed Referral 10/12/2024 11/10/2024 1 1 Specialty Diagnoses / Procedures Referred By Contac t Referred To Contact Podiatry Diagnoses Onychomycosis Procedures CONSULT TO PODIATRY OFFICE/OUTPATIENT NEW HIGH MDM 60 MINUTES Claire Lancaster 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 [address] [place] [address] Referral ID Status Reason Start Date Expiration Date Visits Requested Visits Authorized [id number] Authorized PCP Requested Referral 08/03/2025 1 1 Specialty Diagnoses / Procedures Referred By Contac t Referred To Contact Gynecology Diagnoses Screening for cervical cancer Procedures CONSULT TO GYNECOLOGY OFFICE/OUTPATIENT NEW HIGH MDM 60 MINUTES Claire Lancaster, 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 [address] [place] [address] Referral ID Status Reason Start Date Expiration Date Visits Requested Visits Authorized [id number] Authorized PCP Requested Referral Auto-Generate d Referral 08/16/2024 08/16/2025 1 1 Specialty Diagnoses / Procedures Referred By Contac t Referred To Contact XR IMAGING Diagnoses Senile osteoporosis Procedures DXA-AXIAL SKELETON DXA BONE DENSITY STUDY / SITES AXIAL SKEL Claire Lancaster, 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 [address] [place] [address] [place] [address] Referral ID Status Reason Start Date Expiration Date Visits Requested Visits Authorized [id number] Authorized Auto-Generat ed Referral 08/16/2024 09/15/2025 1 1 Medications Administered Section Administered Medications Medication Order MAR Action Action Date Dose Rate Site tuberculin skin test, unspecified formulation Given 06/03/2017 0.1 ml tuberculin skin test, unspecified formulation Given 05/27/2017 0.1 ml Additional Source Comments INFORMATION SOURCE (unrecogn ized section and content) DATE CREATED AUTHOR 03/02/2020 [facility] DATE CREATED AUTHOR AUTHOR'S ORGANIZ ATION 08/01/2020 [facility] DATE CREATED AUTHOR AUTHOR'S ORGANIZ ATION 11/24/2020 [facility] DATE CREATED AUTHOR AUTHOR'S ORGANIZ ATION 04/02/2021 [facility] DATE CREATED AUTHOR AUTHOR'S ORGANIZ ATION 04/02/2025 [facility] DATE CREATED AUTHOR AUTHOR'S ORGANIZ ATION 04/11/2025 [facility] Source Comments (unrecognize d section and content) In the event this informatio n is protected by the Federal Confidentiality of Alcohol and Drug Abuse Patient Records regulations: The Federal rules restrict any use of the information to criminally investigate or prosecute any alcohol or drug abuse patient.[facility] the event this information is protected by the Federal Confidentiality of Alcohol and Drug Abuse Patient Records regulations: The Federal rules restrict any use of the information to criminally investigate or prosecute any alcohol or drug abuse patient.[facility] the event this information is protected by the Federal Confidentiality of Alcohol and Drug Abuse Patient Records regulations: The Federal rules restrict any use of the information to criminally investigate or prosecute any alcohol or drug abuse patient.[facility] the event this information is protected by the Federal Confidentiality of Alcohol and Drug Abuse Patient Records regulations: The Federal rules restrict any use of the information to criminally investigate or prosecute any alcohol or drug abuse patient.[facility] the event this information is protected by the Federal Confidentiality of Alcohol and Drug Abuse Patient Records regulations: The Federal rules restrict any use of the information to criminally investigate or prosecute any alcohol or drug abuse patient.[facility] the event this information is protected by the Federal Confidentiality of Alcohol and Drug Abuse Patient Records regulations: The Federal rules restrict any use of the information to criminally investigate or prosecute any alcohol or drug abuse patient.[facility] the event this information is protected by the Federal Confidentiality of Alcohol and Drug Abuse Patient Records regulations: The Federal rules restrict any use of the information to criminally investigate or prosecute any alcohol or drug abuse patient.[facility] the event this information is protected by the Federal Confidentiality of Alcohol and Drug Abuse Patient Records regulations: The Federal rules restrict any use of the information to criminally investigate or prosecute any alcohol or drug abuse patient.[facility] the event this information is protected by the Federal Confidentiality of Alcohol and Drug Abuse Patient Records regulations: The Federal rules restrict any use of the information to criminally investigate or prosecute any alcohol or drug abuse patient.[facility] the event this information is protected by the Federal Confidentiality of Alcohol and Drug Abuse Patient Records regulations: The Federal rules restrict any use of the information to criminally investigate or prosecute any alcohol or drug abuse patient.[facility] the event this information is protected by the Federal Confidentiality of Alcohol and Drug Abuse Patient Records regulations: The Federal rules restrict any use of the information to criminally investigate or prosecute any alcohol or drug abuse patient.[facility] the event this information is protected by the Federal Confidentiality of Alcohol and Drug Abuse Patient Records regulations: The Federal rules restrict any use of the information to criminally investigate or prosecute any alcohol or drug abuse patient.[facility] the event this information is protected by the Federal Confidentiality of Alcohol and Drug Abuse Patient Records regulations: The Federal rules restrict any use of the information to criminally investigate or prosecute any alcohol or drug abuse patient.[facility] the event this information is protected by the Federal Confidentiality of Alcohol and Drug Abuse Patient Records regulations: The Federal rules restrict any use of the information to criminally investigate or prosecute any alcohol or drug abuse patient.[facility] the event this information is protected by the Federal Confidentiality of Alcohol and Drug Abuse Patient Records regulations: The Federal rules restrict any use of the information to criminally investigate or prosecute any alcohol or drug abuse patient.[facility] the event this information is protected by the Federal Confidentiality of Alcohol and Drug Abuse Patient Records regulations: The Federal rules restrict any use of the information to criminally investigate or prosecute any alcohol or drug abuse patient.[facility] the event this information is protected by the Federal Confidentiality of Alcohol and Drug Abuse Patient Records regulations: The Federal rules restrict any use of the information to criminally investigate or prosecute any alcohol or drug abuse patient.[facility] the event this information is protected by the Federal Confidentiality of Alcohol and Drug Abuse Patient Records regulations: The Federal rules restrict any use of the information to criminally investigate or prosecute any alcohol or drug abuse patient.[facility] the event this information is protected by the Federal Confidentiality of Alcohol and Drug Abuse Patient Records regulations: The Federal rules restrict any use of the information to criminally investigate or prosecute any alcohol or drug abuse patient.[facility] the event this information is protected by the Federal Confidentiality of Alcohol and Drug Abuse Patient Records regulations: The Federal rules restrict any use of the information to criminally investigate or prosecute any alcohol or drug abuse patient.[facility] the event this information is protected by the Federal Confidentiality of Alcohol and Drug Abuse Patient Records regulations: The Federal rules restrict any use of the information to criminally investigate or prosecute any alcohol or drug abuse patient.[facility] the event this information is protected by the Federal Confidentiality of Alcohol and Drug Abuse Patient Records regulations: The Federal rules restrict any use of the information to criminally investigate or prosecute any alcohol or drug abuse patient.[facility] the event this information is protected by the Federal Confidentiality of Alcohol and Drug Abuse Patient Records regulations: The Federal rules restrict any use of the information to criminally investigate or prosecute any alcohol or drug abuse patient.[facility] the event this information is protected by the Federal Confidentiality of Alcohol and Drug Abuse Patient Records regulations: The Federal rules restrict any use of the information to criminally investigate or prosecute any alcohol or drug abuse patient.[facility] the event this information is protected by the Federal Confidentiality of Alcohol and Drug Abuse Patient Records regulations: The Federal rules restrict any use of the information to criminally investigate or prosecute any alcohol or drug abuse patient.[facility] the event this information is protected by the Federal Confidentiality of Alcohol and Drug Abuse Patient Records regulations: The Federal rules restrict any use of the information to criminally investigate or prosecute any alcohol or drug abuse patient.[facility] the event this information is protected by the Federal Confidentiality of Alcohol and Drug Abuse Patient Records regulations: The Federal rules restrict any use of the information to criminally investigate or prosecute any alcohol or drug abuse patient.[facility] the event this information is protected by the Federal Confidentiality of Alcohol and Drug Abuse Patient Records regulations: The Federal rules restrict any use of the information to criminally investigate or prosecute any alcohol or drug abuse patient.[facility] the event this information is protected by the Federal Confidentiality of Alcohol and Drug Abuse Patient Records regulations: The Federal rules restrict any use of the information to criminally investigate or prosecute any alcohol or drug abuse patient.[facility] the event this information is protected by the Federal Confidentiality of Alcohol and Drug Abuse Patient Records regulations: The Federal rules restrict any use of the information to criminally investigate or prosecute any alcohol or drug abuse patient.[facility] the event this information is protected by the Federal Confidentiality of Alcohol and Drug Abuse Patient Records regulations: The Federal rules restrict any use of the information to criminally investigate or prosecute any alcohol or drug abuse patient.[facility] the event this information is protected by the Federal Confidentiality of Alcohol and Drug Abuse Patient Records regulations: The Federal rules restrict any use of the information to criminally investigate or prosecute any alcohol or drug abuse patient.[facility] the event this information is protected by the Federal Confidentiality of Alcohol and Drug Abuse Patient Records regulations: The Federal rules restrict any use of the information to criminally investigate or prosecute any alcohol or drug abuse patient.[facility] the event this information is protected by the Federal Confidentiality of Alcohol and Drug Abuse Patient Records regulations: The Federal rules restrict any use of the information to criminally investigate or prosecute any alcohol or drug abuse patient.[facility] the event this information is protected by the Federal Confidentiality of Alcohol and Drug Abuse Patient Records regulations: The Federal rules restrict any use of the information to criminally investigate or prosecute any alcohol or drug abuse patient.[facility] the event this information is protected by the Federal Confidentiality of Alcohol and Drug Abuse Patient Records regulations: The Federal rules restrict any use of the information to criminally investigate or prosecute any alcohol or drug abuse patient.[facility] the event this information is protected by the Federal Confidentiality of Alcohol and Drug Abuse Patient Records regulations: The Federal rules restrict any use of the information to criminally investigate or prosecute any alcohol or drug abuse patient.[facility] the event this information is protected by the Federal Confidentiality of Alcohol and Drug Abuse Patient Records regulations: The Federal rules restrict any use of the information to criminally investigate or prosecute any alcohol or drug abuse patient.[facility] HospitalIn the event this information is protected by the Federal Confidentiality of Alcohol and Drug Abuse Patient Records regulations: The Federal rules restrict any use of the information to criminally investigate or prosecute any alcohol or drug abuse patient.[facility] HospitalIn the event this information is protected by the Federal Confidentiality of Alcohol and Drug Abuse Patient Records regulations: The Federal rules restrict any use of the information to criminally investigate or prosecute any alcohol or drug abuse patient.[facility] HospitalIn the event this information is protected by the Federal Confidentiality of Alcohol and Drug Abuse Patient Records regulations: The Federal rules restrict any use of the information to criminally investigate or prosecute any alcohol or drug abuse patient.[facility] HospitalIn the event this information is protected by the Federal Confidentiality of Alcohol and Drug Abuse Patient Records regulations: The Federal rules restrict any use of the information to criminally investigate or prosecute any alcohol or drug abuse patient.[facility] HospitalIn the event this information is protected by the Federal Confidentiality of Alcohol and Drug Abuse Patient Records regulations: The Federal rules restrict any use of the information to criminally investigate or prosecute any alcohol or drug abuse patient.[facility] HospitalIn the event this information is protected by the Federal Confidentiality of Alcohol and Drug Abuse Patient Records regulations: The Federal rules restrict any use of the information to criminally investigate or prosecute any alcohol or drug abuse patient.[facility] HospitalIn the event this information is protected by the Federal Confidentiality of Alcohol and Drug Abuse Patient Records regulations: The Federal rules restrict any use of the information to criminally investigate or prosecute any alcohol or drug abuse patient.[facility] HospitalIn the event this information is protected by the Federal Confidentiality of Alcohol and Drug Abuse Patient Records regulations: The Federal rules restrict any use of the information to criminally investigate or prosecute any alcohol or drug abuse patient.[facility] HospitalIn the event this information is protected by the Federal Confidentiality of Alcohol and Drug Abuse Patient Records regulations: The Federal rules restrict any use of the information to criminally investigate or prosecute any alcohol or drug abuse patient.[facility] HospitalIn the event this information is protected by the Federal Confidentiality of Alcohol and Drug Abuse Patient Records regulations: The Federal rules restrict any use of the information to criminally investigate or prosecute any alcohol or drug abuse patient.[facility] HospitalIn the event this information is protected by the Federal Confidentiality of Alcohol and Drug Abuse Patient Records regulations: The Federal rules restrict any use of the information to criminally investigate or prosecute any alcohol or drug abuse patient.[facility] HospitalIn the event this information is protected by the Federal Confidentiality of Alcohol and Drug Abuse Patient Records regulations: The Federal rules restrict any use of the information to criminally investigate or prosecute any alcohol or drug abuse patient.[facility] HospitalIn the event this information is protected by the Federal Confidentiality of Alcohol and Drug Abuse Patient Records regulations: The Federal rules restrict any use of the information to criminally investigate or prosecute any alcohol or drug abuse patient.[facility] HospitalIn the event this information is protected by the Federal Confidentiality of Alcohol and Drug Abuse Patient Records regulations: The Federal rules restrict any use of the information to criminally investigate or prosecute any alcohol or drug abuse patient.[facility] HospitalIn the event this information is protected by the Federal Confidentiality of Alcohol and Drug Abuse Patient Records regulations: The Federal rules restrict any use of the information to criminally investigate or prosecute any alcohol or drug abuse patient.[facility] HospitalIn the event this information is protected by the Federal Confidentiality of Alcohol and Drug Abuse Patient Records regulations: The Federal rules restrict any use of the information to criminally investigate or prosecute any alcohol or drug abuse patient.[facility] HospitalIn the event this information is protected by the Federal Confidentiality of Alcohol and Drug Abuse Patient Records regulations: The Federal rules restrict any use of the information to criminally investigate or prosecute any alcohol or drug abuse patient.[facility] HospitalIn the event this information is protected by the Federal Confidentiality of Alcohol and Drug Abuse Patient Records regulations: The Federal rules restrict any use of the information to criminally investigate or prosecute any alcohol or drug abuse patient.[facility] HospitalIn the event this information is protected by the Federal Confidentiality of Alcohol and Drug Abuse Patient Records regulations: The Federal rules restrict any use of the information to criminally investigate or prosecute any alcohol or drug abuse patient.[facility] HospitalIn the event this information is protected by the Federal Confidentiality of Alcohol and Drug Abuse Patient Records regulations: The Federal rules restrict any use of the information to criminally investigate or prosecute any alcohol or drug abuse patient.[facility] HospitalIn the event this information is protected by the Federal Confidentiality of Alcohol and Drug Abuse Patient Records regulations: The Federal rules restrict any use of the information to criminally investigate or prosecute any alcohol or drug abuse patient.[facility] HospitalIn the event this information is protected by the Federal Confidentiality of Alcohol and Drug Abuse Patient Records regulations: The Federal rules restrict any use of the information to criminally investigate or prosecute any alcohol or drug abuse patient.[facility] HospitalIn the event this information is protected by the Federal Confidentiality of Alcohol and Drug Abuse Patient Records regulations: The Federal rules restrict any use of the information to criminally investigate or prosecute any alcohol or drug abuse patient.[facility] HospitalIn the event this information is protected by the Federal Confidentiality of Alcohol and Drug Abuse Patient Records regulations: The Federal rules restrict any use of the information to criminally investigate or prosecute any alcohol or drug abuse patient.[facility] HospitalIn the event this information is protected by the Federal Confidentiality of Alcohol and Drug Abuse Patient Records regulations: The Federal rules restrict any use of the information to criminally investigate or prosecute any alcohol or drug abuse patient.[facility] HospitalIn the event this information is protected by the Federal Confidentiality of Alcohol and Drug Abuse Patient Records regulations: The Federal rules restrict any use of the information to criminally investigate or prosecute any alcohol or drug abuse patient.[facility] HospitalIn the event this information is protected by the Federal Confidentiality of Alcohol and Drug Abuse Patient Records regulations: The Federal rules restrict any use of the information to criminally investigate or prosecute any alcohol or drug abuse patient.[facility] HospitalIn the event this information is protected by the Federal Confidentiality of Alcohol and Drug Abuse Patient Records regulations: The Federal rules restrict any use of the information to criminally investigate or prosecute any alcohol or drug abuse patient.[facility] HospitalIn the event this information is protected by the Federal Confidentiality of Alcohol and Drug Abuse Patient Records regulations: The Federal rules restrict any use of the information to criminally investigate or prosecute any alcohol or drug abuse patient.[facility] HospitalIn the event this information is protected by the Federal Confidentiality of Alcohol and Drug Abuse Patient Records regulations: The Federal rules restrict any use of the information to criminally investigate or prosecute any alcohol or drug abuse patient.[facility] HospitalIn the event this information is protected by the Federal Confidentiality of Alcohol and Drug Abuse Patient Records regulations: The Federal rules restrict any use of the information to criminally investigate or prosecute any alcohol or drug abuse patient.[facility] HospitalIn the event this information is protected by the Federal Confidentiality of Alcohol and Drug Abuse Patient Records regulations: The Federal rules restrict any use of the information to criminally investigate or prosecute any alcohol or drug abuse patient.[facility] HospitalIn the event this information is protected by the Federal Confidentiality of Alcohol and Drug Abuse Patient Records regulations: The Federal rules restrict any use of the information to criminally investigate or prosecute any alcohol or drug abuse patient.[facility] HospitalIn the event this information is protected by the Federal Confidentiality of Alcohol and Drug Abuse Patient Records regulations: The Federal rules restrict any use of the information to criminally investigate or prosecute any alcohol or drug abuse patient.[facility] HospitalIn the event this information is protected by the Federal Confidentiality of Alcohol and Drug Abuse Patient Records regulations: The Federal rules restrict any use of the information to criminally investigate or prosecute any alcohol or drug abuse patient.[facility] HospitalIn the event this information is protected by the Federal Confidentiality of Alcohol and Drug Abuse Patient Records regulations: The Federal rules restrict any use of the information to criminally investigate or prosecute any alcohol or drug abuse patient.[facility] HospitalIn the event this information is protected by the Federal Confidentiality of Alcohol and Drug Abuse Patient Records regulations: The Federal rules restrict any use of the information to criminally investigate or prosecute any alcohol or drug abuse patient.[facility] HospitalIn the event this information is protected by the Federal Confidentiality of Alcohol and Drug Abuse Patient Records regulations: The Federal rules restrict any use of the information to criminally investigate or prosecute any alcohol or drug abuse patient.[facility] HospitalIn the event this information is protected by the Federal Confidentiality of Alcohol and Drug Abuse Patient Records regulations: The Federal rules restrict any use of the information to criminally investigate or prosecute any alcohol or drug abuse patient.[facility] HospitalIn the event this information is protected by the Federal Confidentiality of Alcohol and Drug Abuse Patient Records regulations: The Federal rules restrict any use of the information to criminally investigate or prosecute any alcohol or drug abuse patient.[facility] HospitalIn the event this information is protected by the Federal Confidentiality of Alcohol and Drug Abuse Patient Records regulations: The Federal rules restrict any use of the information to criminally investigate or prosecute any alcohol or drug abuse patient.[facility] HospitalIn the event this information is protected by the Federal Confidentiality of Alcohol and Drug Abuse Patient Records regulations: The Federal rules restrict any use of the information to criminally investigate or prosecute any alcohol or drug abuse patient.[facility] HospitalIn the event this information is protected by the Federal Confidentiality of Alcohol and Drug Abuse Patient Records regulations: The Federal rules restrict any use of the information to criminally investigate or prosecute any alcohol or drug abuse patient.[facility] HospitalIn the event this information is protected by the Federal Confidentiality of Alcohol and Drug Abuse Patient Records regulations: The Federal rules restrict any use of the information to criminally investigate or prosecute any alcohol or drug abuse patient.[facility] HospitalIn the event this information is protected by the Federal Confidentiality of Alcohol and Drug Abuse Patient Records regulations: The Federal rules restrict any use of the information to criminally investigate or prosecute any alcohol or drug abuse patient.[facility] HospitalIn the event this information is protected by the Federal Confidentiality of Alcohol and Drug Abuse Patient Records regulations: The Federal rules restrict any use of the information to criminally investigate or prosecute any alcohol or drug abuse patient.[facility] HospitalIn the event this information is protected by the Federal Confidentiality of Alcohol and Drug Abuse Patient Records regulations: The Federal rules restrict any use of the information to criminally investigate or prosecute any alcohol or drug abuse patient.[facility] HospitalIn the event this information is protected by the Federal Confidentiality of Alcohol and Drug Abuse Patient Records regulations: The Federal rules restrict any use of the information to criminally investigate or prosecute any alcohol or drug abuse patient.[facility] HospitalIn the event this information is protected by the Federal Confidentiality of Alcohol and Drug Abuse Patient Records regulations: The Federal rules restrict any use of the information to criminally investigate or prosecute any alcohol or drug abuse patient.[facility] HospitalIn the event this information is protected by the Federal Confidentiality of Alcohol and Drug Abuse Patient Records regulations: The Federal rules restrict any use of the information to criminally investigate or prosecute any alcohol or drug abuse patient.[facility] HospitalIn the event this information is protected by the Federal Confidentiality of Alcohol and Drug Abuse Patient Records regulations: The Federal rules restrict any use of the information to criminally investigate or prosecute any alcohol or drug abuse patient.[facility] HospitalIn the event this information is protected by the Federal Confidentiality of Alcohol and Drug Abuse Patient Records regulations: The Federal rules restrict any use of the information to criminally investigate or prosecute any alcohol or drug abuse patient.[facility] HospitalIn the event this information is protected by the Federal Confidentiality of Alcohol and Drug Abuse Patient Records regulations: The Federal rules restrict any use of the information to criminally investigate or prosecute any alcohol or drug abuse patient.[facility] HospitalIn the event this information is protected by the Federal Confidentiality of Alcohol and Drug Abuse Patient Records regulations: The Federal rules restrict any use of the information to criminally investigate or prosecute any alcohol or drug abuse patient.[facility] HospitalIn the event this information is protected by the Federal Confidentiality of Alcohol and Drug Abuse Patient Records regulations: The Federal rules restrict any use of the information to criminally investigate or prosecute any alcohol or drug abuse patient.[facility] HospitalIn the event this information is protected by the Federal Confidentiality of Alcohol and Drug Abuse Patient Records regulations: The Federal rules restrict any use of the information to criminally investigate or prosecute any alcohol or drug abuse patient.[facility] HospitalIn the event this information is protected by the Federal Confidentiality of Alcohol and Drug Abuse Patient Records regulations: The Federal rules restrict any use of the information to criminally investigate or prosecute any alcohol or drug abuse patient.[facility] HospitalIn the event this information is protected by the Federal Confidentiality of Alcohol and Drug Abuse Patient Records regulations: The Federal rules restrict any use of the information to criminally investigate or prosecute any alcohol or drug abuse patient.[facility] HospitalIn the event this information is protected by the Federal Confidentiality of Alcohol and Drug Abuse Patient Records regulations: The Federal rules restrict any use of the information to criminally investigate or prosecute any alcohol or drug abuse patient.[facility] HospitalIn the event this information is protected by the Federal Confidentiality of Alcohol and Drug Abuse Patient Records regulations: The Federal rules restrict any use of the information to criminally investigate or prosecute any alcohol or drug abuse patient.[facility] HospitalIn the event this information is protected by the Federal Confidentiality of Alcohol and Drug Abuse Patient Records regulations: The Federal rules restrict any use of the information to criminally investigate or prosecute any alcohol or drug abuse patient.[facility] HospitalIn the event this information is protected by the Federal Confidentiality of Alcohol and Drug Abuse Patient Records regulations: The Federal rules restrict any use of the information to criminally investigate or prosecute any alcohol or drug abuse patient.[facility] HospitalIn the event this information is protected by the Federal Confidentiality of Alcohol and Drug Abuse Patient Records regulations: The Federal rules restrict any use of the information to criminally investigate or prosecute any alcohol or drug abuse patient.[facility] HospitalIn the event this information is protected by the Federal Confidentiality of Alcohol and Drug Abuse Patient Records regulations: The Federal rules restrict any use of the information to criminally investigate or prosecute any alcohol or drug abuse patient.[facility] HospitalIn the event this information is protected by the Federal Confidentiality of Alcohol and Drug Abuse Patient Records regulations: The Federal rules restrict any use of the information to criminally investigate or prosecute any alcohol or drug abuse patient.[facility] HospitalIn the event this information is protected by the Federal Confidentiality of Alcohol and Drug Abuse Patient Records regulations: The Federal rules restrict any use of the information to criminally investigate or prosecute any alcohol or drug abuse patient.[facility] HospitalIn the event this information is protected by the Federal Confidentiality of Alcohol and Drug Abuse Patient Records regulations: The Federal rules restrict any use of the information to criminally investigate or prosecute any alcohol or drug abuse patient.[facility] HospitalIn the event this information is protected by the Federal Confidentiality of Alcohol and Drug Abuse Patient Records regulations: The Federal rules restrict any use of the information to criminally investigate or prosecute any alcohol or drug abuse patient.[facility] HospitalIn the event this information is protected by the Federal Confidentiality of Alcohol and Drug Abuse Patient Records regulations: The Federal rules restrict any use of the information to criminally investigate or prosecute any alcohol or drug abuse patient.[facility] HospitalIn the event this information is protected by the Federal Confidentiality of Alcohol and Drug Abuse Patient Records regulations: The Federal rules restrict any use of the information to criminally investigate or prosecute any alcohol or drug abuse patient.[facility] HospitalIn the event this information is protected by the Federal Confidentiality of Alcohol and Drug Abuse Patient Records regulations: The Federal rules restrict any use of the information to criminally investigate or prosecute any alcohol or drug abuse patient.[facility] HospitalIn the event this information is protected by the Federal Confidentiality of Alcohol and Drug Abuse Patient Records regulations: The Federal rules restrict any use of the information to criminally investigate or prosecute any alcohol or drug abuse patient.[facility] HospitalIn the event this information is protected by the Federal Confidentiality of Alcohol and Drug Abuse Patient Records regulations: The Federal rules restrict any use of the information to criminally investigate or prosecute any alcohol or drug abuse patient.[facility] HospitalIn the event this information is protected by the Federal Confidentiality of Alcohol and Drug Abuse Patient Records regulations: The Federal rules restrict any use of the information to criminally investigate or prosecute any alcohol or drug abuse patient.[facility] HospitalIn the event this information is protected by the Federal Confidentiality of Alcohol and Drug Abuse Patient Records regulations: The Federal rules restrict any use of the information to criminally investigate or prosecute any alcohol or drug abuse patient.[facility] HospitalIn the event this information is protected by the Federal Confidentiality of Alcohol and Drug Abuse Patient Records regulations: The Federal rules restrict any use of the information to criminally investigate or prosecute any alcohol or drug abuse patient.[facility] HospitalIn the event this information is protected by the Federal Confidentiality of Alcohol and Drug Abuse Patient Records regulations: The Federal rules restrict any use of the information to criminally investigate or prosecute any alcohol or drug abuse patient.[facility] HospitalIn the event this information is protected by the Federal Confidentiality of Alcohol and Drug Abuse Patient Records regulations: The Federal rules restrict any use of the information to criminally investigate or prosecute any alcohol or drug abuse patient.[facility] HospitalIn the event this information is protected by the Federal Confidentiality of Alcohol and Drug Abuse Patient Records regulations: The Federal rules restrict any use of the information to criminally investigate or prosecute any alcohol or drug abuse patient.[facility] HospitalIn the event this information is protected by the Federal Confidentiality of Alcohol and Drug Abuse Patient Records regulations: The Federal rules restrict any use of the information to criminally investigate or prosecute any alcohol or drug abuse patient.[facility] HospitalIn the event this information is protected by the Federal Confidentiality of Alcohol and Drug Abuse Patient Records regulations: The Federal rules restrict any use of the information to criminally investigate or prosecute any alcohol or drug abuse patient.[facility] HospitalIn the event this information is protected by the Federal Confidentiality of Alcohol and Drug Abuse Patient Records regulations: The Federal rules restrict any use of the information to criminally investigate or prosecute any alcohol or drug abuse patient.[facility] HospitalIn the event this information is protected by the Federal Confidentiality of Alcohol and Drug Abuse Patient Records regulations: The Federal rules restrict any use of the information to criminally investigate or prosecute any alcohol or drug abuse patient.[facility] HospitalIn the event this information is protected by the Federal Confidentiality of Alcohol and Drug Abuse Patient Records regulations: The Federal rules restrict any use of the information to criminally investigate or prosecute any alcohol or drug abuse patient.[facility] HospitalIn the event this information is protected by the Federal Confidentiality of Alcohol and Drug Abuse Patient Records regulations: The Federal rules restrict any use of the information to criminally investigate or prosecute any alcohol or drug abuse patient.[facility] HospitalIn the event this information is protected by the Federal Confidentiality of Alcohol and Drug Abuse Patient Records regulations: The Federal rules restrict any use of the information to criminally investigate or prosecute any alcohol or drug abuse patient.[facility] HospitalIn the event this information is protected by the Federal Confidentiality of Alcohol and Drug Abuse Patient Records regulations: The Federal rules restrict any use of the information to criminally investigate or prosecute any alcohol or drug abuse patient.[facility] HospitalIn the event this information is protected by the Federal Confidentiality of Alcohol and Drug Abuse Patient Records regulations: The Federal rules restrict any use of the information to criminally investigate or prosecute any alcohol or drug abuse patient.[facility] HospitalIn the event this information is protected by the Federal Confidentiality of Alcohol and Drug Abuse Patient Records regulations: The Federal rules restrict any use of the information to criminally investigate or prosecute any alcohol or drug abuse patient.[facility] HospitalIn the event this information is protected by the Federal Confidentiality of Alcohol and Drug Abuse Patient Records regulations: The Federal rules restrict any use of the information to criminally investigate or prosecute any alcohol or drug abuse patient.[facility] HospitalIn the event this information is protected by the Federal Confidentiality of Alcohol and Drug Abuse Patient Records regulations: The Federal rules restrict any use of the information to criminally investigate or prosecute any alcohol or drug abuse patient.[facility] HospitalIn the event this information is protected by the Federal Confidentiality of Alcohol and Drug Abuse Patient Records regulations: The Federal rules restrict any use of the information to criminally investigate or prosecute any alcohol or drug abuse patient.[facility] HospitalIn the event this information is protected by the Federal Confidentiality of Alcohol and Drug Abuse Patient Records regulations: The Federal rules restrict any use of the information to criminally investigate or prosecute any alcohol or drug abuse patient.[facility] HospitalIn the event this information is protected by the Federal Confidentiality of Alcohol and Drug Abuse Patient Records regulations: The Federal rules restrict any use of the information to criminally investigate or prosecute any alcohol or drug abuse patient.[facility] HospitalIn the event this information is protected by the Federal Confidentiality of Alcohol and Drug Abuse Patient Records regulations: The Federal rules restrict any use of the information to criminally investigate or prosecute any alcohol or drug abuse patient.[facility] HospitalIn the event this information is protected by the Federal Confidentiality of Alcohol and Drug Abuse Patient Records regulations: The Federal rules restrict any use of the information to criminally investigate or prosecute any alcohol or drug abuse patient.[facility] HospitalIn the event this information is protected by the Federal Confidentiality of Alcohol and Drug Abuse Patient Records regulations: The Federal rules restrict any use of the information to criminally investigate or prosecute any alcohol or drug abuse patient.[facility] HospitalIn the event this information is protected by the Federal Confidentiality of Alcohol and Drug Abuse Patient Records regulations: The Federal rules restrict any use of the information to criminally investigate or prosecute any alcohol or drug abuse patient.[facility] HospitalIn the event this information is protected by the Federal Confidentiality of Alcohol and Drug Abuse Patient Records regulations: The Federal rules restrict any use of the information to criminally investigate or prosecute any alcohol or drug abuse patient.[facility] HospitalIn the event this information is protected by the Federal Confidentiality of Alcohol and Drug Abuse Patient Records regulations: The Federal rules restrict any use of the information to criminally investigate or prosecute any alcohol or drug abuse patient.[facility] HospitalIn the event this information is protected by the Federal Confidentiality of Alcohol and Drug Abuse Patient Records regulations: The Federal rules restrict any use of the information to criminally investigate or prosecute any alcohol or drug abuse patient.[facility] HospitalIn the event this information is protected by the Federal Confidentiality of Alcohol and Drug Abuse Patient Records regulations: The Federal rules restrict any use of the information to criminally investigate or prosecute any alcohol or drug abuse patient.[facility] HospitalIn the event this information is protected by the Federal Confidentiality of Alcohol and Drug Abuse Patient Records regulations: The Federal rules restrict any use of the information to criminally investigate or prosecute any alcohol or drug abuse patient.[facility] HospitalIn the event this information is protected by the Federal Confidentiality of Alcohol and Drug Abuse Patient Records regulations: The Federal rules restrict any use of the information to criminally investigate or prosecute any alcohol or drug abuse patient.[facility] HospitalIn the event this information is protected by the Federal Confidentiality of Alcohol and Drug Abuse Patient Records regulations: The Federal rules restrict any use of the information to criminally investigate or prosecute any alcohol or drug abuse patient.[facility] HospitalIn the event this information is protected by the Federal Confidentiality of Alcohol and Drug Abuse Patient Records regulations: The Federal rules restrict any use of the information to criminally investigate or prosecute any alcohol or drug abuse patient.[facility] HospitalIn the event this information is protected by the Federal Confidentiality of Alcohol and Drug Abuse Patient Records regulations: The Federal rules restrict any use of the information to criminally investigate or prosecute any alcohol or drug abuse patient.[facility] HospitalIn the event this information is protected by the Federal Confidentiality of Alcohol and Drug Abuse Patient Records regulations: The Federal rules restrict any use of the information to criminally investigate or prosecute any alcohol or drug abuse patient.[facility] HospitalIn the event this information is protected by the Federal Confidentiality of Alcohol and Drug Abuse Patient Records regulations: The Federal rules restrict any use of the information to criminally investigate or prosecute any alcohol or drug abuse patient.[facility] HospitalIn the event this information is protected by the Federal Confidentiality of Alcohol and Drug Abuse Patient Records regulations: The Federal rules restrict any use of the information to criminally investigate or prosecute any alcohol or drug abuse patient.[facility] HospitalIn the event this information is protected by the Federal Confidentiality of Alcohol and Drug Abuse Patient Records regulations: The Federal rules restrict any use of the information to criminally investigate or prosecute any alcohol or drug abuse patient.[facility] HospitalIn the event this information is protected by the Federal Confidentiality of Alcohol and Drug Abuse Patient Records regulations: The Federal rules restrict any use of the information to criminally investigate or prosecute any alcohol or drug abuse patient.[facility] HospitalIn the event this information is protected by the Federal Confidentiality of Alcohol and Drug Abuse Patient Records regulations: The Federal rules restrict any use of the information to criminally investigate or prosecute any alcohol or drug abuse patient.[facility] HospitalIn the event this information is protected by the Federal Confidentiality of Alcohol and Drug Abuse Patient Records regulations: The Federal rules restrict any use of the information to criminally investigate or prosecute any alcohol or drug abuse patient.[facility] HospitalIn the event this information is protected by the Federal Confidentiality of Alcohol and Drug Abuse Patient Records regulations: The Federal rules restrict any use of the information to criminally investigate or prosecute any alcohol or drug abuse patient.[facility] HospitalIn the event this information is protected by the Federal Confidentiality of Alcohol and Drug Abuse Patient Records regulations: The Federal rules restrict any use of the information to criminally investigate or prosecute any alcohol or drug abuse patient.[facility] HospitalIn the event this information is protected by the Federal Confidentiality of Alcohol and Drug Abuse Patient Records regulations: The Federal rules restrict any use of the information to criminally investigate or prosecute any alcohol or drug abuse patient.[facility] HospitalIn the event this information is protected by the Federal Confidentiality of Alcohol and Drug Abuse Patient Records regulations: The Federal rules restrict any use of the information to criminally investigate or prosecute any alcohol or drug abuse patient.[facility] HospitalIn the event this information is protected by the Federal Confidentiality of Alcohol and Drug Abuse Patient Records regulations: The Federal rules restrict any use of the information to criminally investigate or prosecute any alcohol or drug abuse patient.[facility] HospitalIn the event this information is protected by the Federal Confidentiality of Alcohol and Drug Abuse Patient Records regulations: The Federal rules restrict any use of the information to criminally investigate or prosecute any alcohol or drug abuse patient.[facility] HospitalIn the event this information is protected by the Federal Confidentiality of Alcohol and Drug Abuse Patient Records regulations: The Federal rules restrict any use of the information to criminally investigate or prosecute any alcohol or drug abuse patient.[facility] HospitalIn the event this information is protected by the Federal Confidentiality of Alcohol and Drug Abuse Patient Records regulations: The Federal rules restrict any use of the information to criminally investigate or prosecute any alcohol or drug abuse patient.[facility] HospitalIn the event this information is protected by the Federal Confidentiality of Alcohol and Drug Abuse Patient Records regulations: The Federal rules restrict any use of the information to criminally investigate or prosecute any alcohol or drug abuse patient.[facility] HospitalIn the event this information is protected by the Federal Confidentiality of Alcohol and Drug Abuse Patient Records regulations: The Federal rules restrict any use of the information to criminally investigate or prosecute any alcohol or drug abuse patient.[facility] HospitalIn the event this information is protected by the Federal Confidentiality of Alcohol and Drug Abuse Patient Records regulations: The Federal rules restrict any use of the information to criminally investigate or prosecute any alcohol or drug abuse patient.[facility] Reason for Visit (unrecogniz ed section and content) Reason Comments PT Discharge Specialty Diagnoses / Procedures Referred By Pooja t Referred To Contact PHYSICAL THERAPY Diagnoses Lumbar pain Balance disorder Procedures CONSULT TO PHYSICAL THERAPY PHYSICAL THERAPY EVALUATION HIGH COMPLEX 45 MINS Usman Barboza PA-C [address] [facility] [place] [address] Pt [facility] [address] [place] [address] Referral ID Status Reason Start Date Expiration Date Visits Requested Visits Authorized [id number] Authorized Auto-Generat ed Referral 11/13/2022 08/14/2023 20 20 Reason Comments Physical Therapy Reason Onset Date Comments Refill Request 11/19/2021 Reason Comments Patient Update Patient Question Reason Comments Orders Reason Comments Follow Up 3 month Reason Comments Insurance Authorization Reason Comments Blood Pressure Check Reason Comments Patient Update Reason Comments Faxed to [facility] Reason Onset Date Comments Refill Request 02/17/2022 Reason Onset Date Comments Refill Request 04/05/2022 Reason Onset Date Comments Refill Request 04/12/2022 Reason Comments ED Follow-up [facility] 05/02/22 Cellulit is left upper extremity Reason Comments Cellulitis Follow up Reason Comments Results Reason Onset Date Comments Refill Request 05/28/2022 Reason Comments 6 Month Exam Reason Onset Date Comments Refill Request 07/15/2022 Reason Onset Date Comments Refill Request 07/19/2022 Reason Onset Date Comments Refill Request 07/23/2022 Reason Onset Date Comments Refill Request 08/06/2022 Reason Onset Date Comments Refill Request 10/29/2022 Refill Request 11/01/2022 Reason Onset Date Comments Population Health Navigation Outreach 11/04/2022 ACO PAU PCSA Reason Comments ER F/U [facility] for muscle spasm s and nausea Reason Comments script for pen needles Reason Comments 6 Month Exam Reason Comments Sinus Problem Dizziness started th is morningLower back pain x 2 years Reason Comments Follow Up Reason Comments 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 Reason Comments Rash Rash on right lower leg x 3-4 days Reason Comments Results Patient Question Reason Onset Date Comments Refill Request 06/13/2023 Reason Comments Rash Reason Comments Patient Question Patient Update Reason Comments Acute Visit UTI Reason Comments Radiology CT Specialty Diagnoses / Procedures Referred By Pooja martins Referred To Contact CT IMAGING Diagnoses Lung nodules Procedures CT CHEST WO IVCON DIAGNOSTIC COMPUTED TOMOGRAPHY THORAX W/O Usman Bolden PA-C [address] [place] [address] [place] [address] Referral ID Status Reason Start Date Expiration Date V isits Requested Visits Authorized [id number] Closed Auto-Generate d Referral 04/15/2022 05/30/2022 1 1 Specialty Diagnoses / Procedures Referred By Contac t Referred To Contact CT IMAGING Diagnoses Nodule of right lung Procedures CT CHEST WO IVCON DIAGNOSTIC COMPUTED TOMOGRAPHY THORAX W/O Usman Bolden PA-C [address] [place] [address] Ct Imaging [facility] Referral ID Status Reason Start Date Expiration Date V isits Requested Visits Authorized [id number] Closed Auto-Generate d Referral 03/31/2023 10/31/2023 1 1 Reason Comments Radiology US Specialty Diagnoses / Procedures Referred By Contac t Referred To Contact US IMAGING Diagnoses Left flank pain Procedures US KIDNEY/BLADDER US RETROPERITONEAL REAL TIME W/IMAGE COMPLETE Meron Ramos APRN.CNP [address] [place] [address] Us Imaging [facility] Referral ID Status Reason Start Date Expiration Date V isits Requested Visits Authorized [id number] Closed Auto-Generate d Referral 06/15/2023 07/14/2024 1 1 Reason Comments Refill Request Reason Comments Chest Congestion cough, wheezing, fev er x 1 week Reason Comments New Patient chronic cough Specialty Diagnoses / Procedures Referred By Contac t Referred To Contact Pulmonary and Critical Care Medicine Diagnoses Chronic cough Procedures CONSULT TO PULM/CRITICAL CARE OFFICE/OUTPATIENT NEW HIGH MDM 60-74 MINUTES Ilir Hernández MD [address] [place] [address] Referral ID Status Reason Start Date Expiration Date Visits Requested Visits Authorized [id number] Pending Review PCP Requested Referral 3 06/12/2024 1 1 Reason Onset Date Comments Transition Of Care 06/24/2023 Reason Comments Hospital F/U Reason Comments Established Patient Reason Comments New Patient Pt reported d/c CPAP x2 years, reported fatigue. Referral ID Status Reason Start Date Expiration Date V isits Requested Visits Authorized [id number] Closed Auto-Generate d Referral 04/06/2023 05/05/2024 1 1 Reason Comments Results Chest CT Reason Comments home health calling Reason Comments Hospital F/U [facility] dx: L hip fractu re; transferred to [facility] [place] dc'd 11/03 Reason Comments Orders Patient Question Reason Comments problem with order Reason Comments Hospital Follow Up [facility] follow up dc'd Reason Comments [facility] HH PT POC Reason Comments Insurance Authorization Onetouch verio Reason Comments Patient Update Requesting informati on Somatus Reason Comments CT Chest results Reason Onset Date Comments Refill Request 11/30/2023 OUT OF MEDS Reason Comments FYI-OT Update Reason Onset Date Comments Refill Request 12/27/2023 Reason Comments Hospital Follow Up [facility] dc'd 12/30/23 dx: cholecystectomy Reason Onset Date Comments Opened In Error 01/04/2024 Reason Onset Date Comments Transition Of Care 01/02/2024 Reason Comments prior authorization Reason Comments Release Of Medical Records Reason Onset Date Comments Refill Request 03/22/2024 Reason Comments Medication Problem Reason Comments Patient Question Reason Onset Date Comments Refill Request 07/09/2024 Reason Comments Follow Up Reason Comments New Nail care Diabetic Foot Care Nail care Specialty Diagnoses / Procedures Referred By Pooja martins Referred To Contact Podiatry Diagnoses Onychomycosis Procedures CONSULT TO PODIATRY OFFICE/OUTPATIENT NEW HIGH MDM 60 MINUTES Claire Lancaster, 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 [address] [place] [address] Referral ID Status Reason Start Date Expiration Date V isits Requested Visits Authorized [id number] Closed PCP Requested Referral 08/03/2024 08/03/2025 1 1 Reason Comments 6 Month Exam Reason Onset Date Comments Refill Request 10/10/2024 Reason Comments Established Patient 6 month follow up co ugh variant asthma Nodule Reason Comments Radiology CT Specialty Diagnoses / Procedures Referred By Pooja t Referred To Contact CT IMAGING Diagnoses Lung nodules Procedures CT CHEST WO IVCON DIAGNOSTIC COMPUTED TOMOGRAPHY THORAX W/O RENETTA BOLDEN Phone: tel: [facility] [place] [phone] Referral ID Status Reason Start Date Expiration Date V isits Requested Visits Authorized [id number] Closed Auto-Generate d Referral 10/12/2024 11/10/2024 1 1 Reason Comments Urinary Symptoms Reason Onset Date Comments Refill Request 10/29/2024 Reason Comments Established Patient Follow Up Diabetic Foot Care Reason Comments Established Patient lung nodule follow u p Reason Onset Date Comments Refill Request 02/19/2025 Reason Comments Acute Visit UTI symptoms- urinar y urgency; muscle spasms mostly L side under ribs Reason Comments Yearly Exam Medicare Wellness Exam Reason Onset Date Comments Results 04/02/2025 Care Teams (unrecognized sec tion and content) Hyperion Analyst Relationship Specialty Start Date End Date Ilir Hernández MD [address] [place] [address] PCP - General Family Practice 02/26/13 [facility] [address] [facility] [place] [address] Pharmacist Pharmacy 01/18/19 Hyperion Analyst Relationship Specialty Start Date End Date Ilir Hernández MD [address] [place] [address] PCP - General Family Practice 02/26/13 [facility] [address] [facility] [place] [address] Pharmacist Pharmacy 01/18/19 Hyperion Analyst Relationship Specialty Start Date End Date Ilir Hernández MD [address] [place] [address] PCP - General Family Practice 02/26/13 [facility] [address] [facility] [place] [address] Pharmacist Pharmacy 01/18/19 Hyperion Analyst Relationship Specialty Start Date End Date Ilir Hernández MD [address] [place] [address] PCP - General Family Practice 02/26/13 Bernadette Valerio h [address] [place] [address] Pharmacist Pharmacy 01/18/19 Hyperion Analyst Relationship Specialty Start Date End Date Ilir Hernández MD [address] [place] [address] PCP - General Family Practice 02/26/13 [facility] [address] [place] [address] Pharmacist Pharmacy 01/18/19 Hyperion Analyst Relationship Specialty Start Date End Date Ilir Hernández MD [address] [place] [address] PCP - General Family Practice 02/26/13 [facility] [address] [place] [address] Pharmacist Pharmacy 01/18/19 Hyperion Analyst Relationship Specialty Start Date End Date Ilir Hernández MD [address] [place] [address] PCP - General Family Practice 02/26/13 [facility] [address] [place] [address] Pharmacist Pharmacy 01/18/19 Hyperion Analyst Relationship Specialty Start Date End Date Ilir Hernández MD [address] [place] [address] PCP - General Family Practice 02/26/13 ImanBernadette rubio, [facility] [address] [place] [address] Pharmacist Pharmacy 01/18/19 Hyperion Analyst Relationship Specialty Start Date End Date Ilir Hernández MD [address] [facility] [address] PCP - General Family Practice 02/26/13 TiffinBernadette, [facility] [address] [place] [address] Pharmacist Pharmacy 01/18/19 Hyperion Analyst Relationship Specialty Start Date End Date Ilir Hernández MD [address] [place] [address] PCP - General Family Practice 02/26/13 TiffinBernadette, [facility] [address] [place] [address] Pharmacist Pharmacy 01/18/19 Hyperion Analyst Relationship Specialty Start Date End Date Ilir Hernández MD [address] [place] [address] PCP - General Family Medicine 02/26/13 Bernadette Valerio, [facility] [address] [place] [address] Pharmacist Pharmacy 01/18/19 Hyperion Analyst Relationship Specialty Start Date End Date Ilir Hernández MD [address] [facility] [address] PCP - General Family Medicine 02/26/13 TiffinBernadette, [facility] [address] [place] [address] Pharmacist Pharmacy 01/18/19 Hyperion Analyst Relationship Specialty Start Date End Date Ilir Hernández MD [address] [place] [address] PCP - General Family Medicine 02/26/13 TiffinBernadette, [facility] [address] [place] [address] Pharmacist Pharmacy 01/18/19 Hyperion Analyst Relationship Specialty Start Date End Date Ilir Hernández MD [address] [facility] [address] PCP - General Family Medicine 02/26/13 TiffinDenaBernadette, [facility] [address] [place] [address] Pharmacist Pharmacy 01/18/19 Hyperion Analyst Relationship Specialty Start Date End Date Ilir Hernández MD [address] [facility] [address] PCP - General Family Medicine 02/26/13 Tiffin Bernadette, [facility] [address] [place] [address] Pharmacist Pharmacy 01/18/19 Hyperion Analyst Relationship Specialty Start Date End Date Ilir Hernández MD [address] [place] [address] PCP - General Family Medicine 02/26/13 [facility]Bern[facility] [address] [place] [address] Pharmacist Pharmacy 01/18/19 Hyperion Analyst Relationship Specialty Start Date End Date Ilir Hernández MD [address] [place] [address] PCP - General Family Medicine 02/26/13 [facility]inDenaBernadetteD[facility] [address] [place] [address] Pharmacist Pharmacy 01/18/19 Hyperion Analyst Relationship Specialty Start Date End Date Ilir Hernández MD [address] [place] [address] PCP - General Family Medicine 02/26/13 TiffinDenaBernadetteD[facility] [facility] [address] [place] [address] Pharmacist Pharmacy 01/18/19 Hyperion Analyst Relationship Specialty Start Date End Date Ilir Hernández MD [address] [facility] [place] [address] PCP - General Family Medicine 02/26/13 ImanBernadette rubio, [facility] [address] [facility] [place] [address] Pharmacist Pharmacy 01/18/19 Hyperion Analyst Relationship Specialty Start Date End Date Ilir Hernández MD [address] [place] [address] PCP - General Family Medicine 02/26/13 [facility]adette [facility] [address] [facility] [place] [address] Pharmacist Pharmacy 01/18/19 Team Status: Active Member Role Status Dates Dr. Ilir Hernández MD Family Provider Active Dr. Ilir Hernández MD Primary Care Provider Active Team Status: Inactive Member Role Status Dates Dr. Ilir Hernández MD Primary Care Provider, Referring Provider Active Sandra Salinas PA, PA Attending Provider Active Team Status: Inactive Member Role Status Dates Dr. Ilir Hernández MD Primary Care Provider, Referring Provider Active JACOB Cohen Attending Provider Active Team Status: Inactive Member Role Status Dates Dr. Ilir Hernández MD Primary Care Provider, Referring Provider Active Dr. Fidel Olivas DO Attending Provider Active Team Status: Inactive Member Role Status Dates Dr. Ilir Hernández MD Primary Care Provider Active Dr. Rachel Johnson MD Attending Provider, Referring Provider Active Team Status: Inactive Member Role Status Dates Dr. Ilir Hernández MD Primary Care Provider Active Dr. Rachel Johnson MD Attending Provider Active Hyperion Analyst Relationship Specialty Start Date End Date Ilir Hernández MD [address] [facility] [place] [address] PCP - General Family Medicine 02/26/13 TiffinBernadette rubio, [facility] [address] [facility] [place] [address] Pharmacist Pharmacy 01/18/19 Hyperion Analyst Relationship Specialty Start Date End Date Ilir Hernández MD [address] [place] [address] PCP - General Family Medicine 02/26/13 ImanBernadette rubio, [facility] [address] [facility] [place] [address] Pharmacist Pharmacy 01/18/19 Hyperion Analyst Relationship Specialty Start Date End Date Ilir Hernández MD [address] [facility] [place] [address] PCP - General Family Medicine 02/26/13 Bernadette Valerio, [facility] [address] [facility] [address] Pharmacist Pharmacy 01/18/19 Team Status: Inactive Member Role Status Dates Dr. Ilir Hernández MD Primary Care Provider, Referring Provider Active Dr. Charles Chi MD Attending Provider Active Team Status: Inactive Member Role Status Dates Dr. Ilir Hernández MD Primary Care Provider Active Dr. Omar Arambula , DO Emergency Provider Active Hyperion Analyst Relationship Specialty Start Date End Date Ilir Hernández MD [address] [place] [address] PCP - General Family Medicine 02/26/13 Bernadette Valerio, [facility] [address] [facility] [place] [address] Pharmacist Pharmacy 01/18/19 Hyperion Analyst Relationship Specialty Start Date End Date Ilir Hernández MD [address] [facility] [place] [address] PCP - General Family Medicine 02/26/13 Bernadette Valerio, [facility] [address] [facility] [place] [address] Pharmacist Pharmacy 01/18/19 Hyperion Analyst Relationship Specialty Start Date End Date Ilir Hernández MD [address] [facility] [address] PCP - General Family Medicine 02/26/13 [facility] [address] [facility] [address] Pharmacist Pharmacy 01/18/19 Hyperion Analyst Relationship Specialty Start Date End Date Ilir Hernández MD [address] [place] [address] PCP - General Family Medicine 02/26/13 [facility] [address] [place] [address] Pharmacist Pharmacy 01/18/19 Hyperion Analyst Relationship Specialty Start Date End Date Ilir Hernández MD [address] [place] [address] PCP - General Family Medicine 02/26/13 [facility] [address] [place] [address] Pharmacist Pharmacy 01/18/19 Hyperion Analyst Relationship Specialty Start Date End Date Ilir Hernández MD [address] [place] [address] PCP - General Family Medicine 02/26/13 [facility]adette [facility] [address] [place] [address] Pharmacist Pharmacy 01/18/19 Hyperion Analyst Relationship Specialty Start Date End Date Ilir Hernández MD [address] [place] [address] PCP - General Family Medicine 02/26/13 TiffinBernadette rubio, [facility] [address] [place] [address] Pharmacist Pharmacy 01/18/19 Hyperion Analyst Relationship Specialty Start Date End Date Ilir Hernández MD [address] [facility] [address] PCP - General Family Medicine 02/26/13 TiffinBernadette, [facility] [address] [facility] [address] Pharmacist Pharmacy 01/18/19 Hyperion Analyst Relationship Specialty Start Date End Date Ilir Hernández MD [address] [facility] [address] PCP - General Family Medicine 02/26/13 TiffinBernadette, [facility] [address] [facility] [address] Pharmacist Pharmacy 01/18/19 Hyperion Analyst Relationship Specialty Start Date End Date Ilir Hernández MD [address] [place] [address] PCP - General Family Medicine 02/26/13 Tiffin [facility] [address] [facility] [place] [address] Pharmacist Pharmacy 01/18/19 Team Status: Inactive Member Role Status Dates Dr. Ilir Hernández MD Primary Care Provider Active Dr. Omar Arambula DO Attending Provider, Emergency Pr ovider Active Team Status: Inactive Member Role Status Dates Dr. Ilir Hernández MD Primary Care Provider Active Dr. Ilir Cutler MD Attending Provider, Referring P jason Active Hyperion Analyst Relationship Specialty Start Date End Date Ilir Hernández MD [address] [facility] [address] PCP - General Family Medicine 02/26/13 TiffinDenaBernadette, [facility] [address] [facility] [address] Pharmacist Pharmacy 01/18/19 Hyperion Analyst Relationship Specialty Start Date End Date Ilir Hernández MD [address] [place] [address] PCP - General Family Medicine 02/26/13 ImanBernadette rubio, [facility] [address] [place] [address] Pharmacist Pharmacy 01/18/19 Hyperion Analyst Relationship Specialty Start Date End Date Ilir Hernández MD [address] [place] [address] PCP - General Family Medicine 02/26/13 TiffinBernadette rubio, [facility] [address] [place] [address] Pharmacist Pharmacy 01/18/19 Hyperion Analyst Relationship Specialty Start Date End Date Ilir Hernández MD [address] [place] [address] PCP - General Family Medicine 02/26/13 Bernadette Valerio, [facility] [address] [place] [address] Pharmacist Pharmacy 01/18/19 Hyperion Analyst Relationship Specialty Start Date End Date Ilir Hernández MD [address] [place] [address] PCP - General Family Medicine 02/26/13 Bernadette Valerio, [facility] [address] [place] [address] Pharmacist Pharmacy 01/18/19 Hyperion Analyst Relationship Specialty Start Date End Date Ilir Hernández MD [address] [place] [address] PCP - General Family Medicine 02/26/13 ImanBernadette rubio, [facility] [address] [place] [address] Pharmacist Pharmacy 01/18/19 Hyperion Analyst Relationship Specialty Start Date End Date Ilir Hernández MD [address] [place] [address] PCP - General Family Medicine 02/26/13 [facility]ad[facility] [address] [place] [address] Pharmacist Pharmacy 01/18/19 Hyperion Analyst Relationship Specialty Start Date End Date Ilir Hernández MD [address] [place] [address] PCP - General Family Medicine 02/26/13 [facility]Bernadette [facility] [address] [place] [address] Pharmacist Pharmacy 01/18/19 Hyperion Analyst Relationship Specialty Start Date End Date Ilir Hernández MD [address] [place] [address] PCP - General Family Medicine 02/26/13 [facility]Bernadette [facility] [address] [place] [address] Pharmacist Pharmacy 01/18/19 Team Status: Inactive Member Role Status Dates Dr. Ilir Hernández MD Primary Care Provi adele, Attending Provider, Referring Provider Active Hyperion Analyst Relationship Specialty Start Date End Date Ilir Hernández MD [address] [place] [address] PCP - General Family Medicine 02/26/13 [facility] [address] [place] [address] Pharmacist Pharmacy 01/18/19 Hyperion Analyst Relationship Specialty Start Date End Date Ilir Hernández MD [address] [place] [address] PCP - General Family Medicine 02/26/13 Bernadette Valerio, [facility] [address] [place] [address] Pharmacist Pharmacy 01/18/19 Hyperion Analyst Relationship Specialty Start Date End Date Ilir Hernández MD [address] [place] [address] PCP - General Family Medicine 02/26/13 TiffinBernadette rubio, [facility] [address] [place] [address] Pharmacist Pharmacy 01/18/19 Hyperion Analyst Relationship Specialty Start Date End Date Ilir Hernández MD [address] [place] [address] PCP - General Family Medicine 02/26/13 TiffinBernadette rubio, [facility] [address] [place] [address] Pharmacist Pharmacy 01/18/19 Hyperion Analyst Relationship Specialty Start Date End Date Ilir Hernández MD [address] [place] [address] PCP - General Family Medicine 02/26/13 Bernadette Valerio, [facility] [address] [place] [address] Pharmacist Pharmacy 01/18/19 Hyperion Analyst Relationship Specialty Start Date End Date Ilir Hernández MD [address] [place] [address] PCP - General Family Medicine 02/26/13 ImanBernadette rubio, [facility] [address] [place] [address] Pharmacist Pharmacy 01/18/19 Hyperion Analyst Relationship Specialty Start Date End Date Ilir Hernández MD [address] [facility] [address] PCP - General Family Medicine 02/26/13 Bernadette Valerio, [facility] [address] [place] [address] Pharmacist Pharmacy 01/18/19 Hyperion Analyst Relationship Specialty Start Date End Date Ilir Hernández MD [address] [place] [address] PCP - General Family Medicine 02/26/13 Bernadette Valerio, [facility] [address] [place] [address] Pharmacist Pharmacy 01/18/19 Team Status: Active Member Role Status Dates Dr. Ilir Hernández MD Primary Care Provider Active Dr. Elver Carrion DO Emergency Provider Active Dr. Reji Nelson MD Admit Provider, Attending Provider Active Hyperion Analyst Relationship Specialty Start Date End Date Ilir Hernández MD [address] [facility] [address] PCP - General Family Medicine 02/26/13 Bernadette Valerio, [facility] [address] [facility] [address] Pharmacist Pharmacy 01/18/19 Hyperion Analyst Relationship Specialty Start Date End Date Ilir Hernández MD [address] [place] [address] PCP - General Family Medicine 02/26/13 Bernadette Valerio, [facility] [address] [facility] [address] Pharmacist Pharmacy 01/18/19 Hyperion Analyst Relationship Specialty Start Date End Date Ilir Hernández MD [address] [place] [address] PCP - General Family Medicine 02/26/13 [facility] [address] [place] [address] Pharmacist Pharmacy 01/18/19 Hyperion Analyst Relationship Specialty Start Date End Date Ilir Hernández MD [address] [place] [address] PCP - General Family Medicine 02/26/13 TiffinBernadette, [facility] [address] [place] [address] Pharmacist Pharmacy 01/18/19 Hyperion Analyst Relationship Specialty Start Date End Date Ilir Hernández MD [address] [place] [address] PCP - General Family Medicine 02/26/13 [facility] [address] [place] [address] Pharmacist Pharmacy 01/18/19 Hyperion Analyst Relationship Specialty Start Date End Date Ilir Hernández MD [address] [place] [address] PCP - General Family Medicine 02/26/13 [facility] [address] [place] [address] Pharmacist Pharmacy 01/18/19 Hyperion Analyst Relationship Specialty Start Date End Date Ilir Hernández MD [address] [place] [address] PCP - General Family Medicine 02/26/13 Bernadette Valerio, [facility] [address] [facility] [address] Pharmacist Pharmacy 01/18/19 Hyperion Analyst Relationship Specialty Start Date End Date Ilir Hernández MD [address] [place] [address] PCP - General Family Medicine 02/26/13 Bernadette Valerio, [facility] [address] [place] [address] Pharmacist Pharmacy 01/18/19 Hyperion Analyst Relationship Specialty Start Date End Date Ilir Hernández MD [address] [place] [address] PCP - General Family Medicine 02/26/13 Bernadette Valerio, [facility] [address] [facility] [address] Pharmacist Pharmacy 01/18/19 Team Status: Active Member Role Status Dates Dr. Ilir Hernández MD Primary Care Provider Active Dr. Elver Carrion DO Emergency Provider Active Dr. Reji Nelson MD Admit Provi adele, Attending Provider, Other Provider Active Team Status: Active Member Role Status Dates Dr. Ilir Hernández MD Primary Care Provider Active Dr. Elver Carrion DO Emergency Provider Active Dr. Reji Nelson MD Admit Provider, Other Pro vider Active Dr. Janet Philip MD Attending Provider, Other Provid er Active Team Status: Active Member Role Status Dates Dr. Ilir Hernández MD Primary Care Provider Active Dr. Yunier Owen MD Referring Provider, Other Pro vider Active Dr. Edmond Hagen MD Attending Provider Active Team Status: Inactive Member Role Status Dates Dr. Ilir Hernández MD Primary Care Provider Active Dr. Yunier Owen MD Attending Provider, Referring Provider Active Team Status: Inactive Member Role Status Dates Dr. Ilir Hernández MD Primary Care Provider Active Dr. Elver Carrion DO Emergency Provider Active Dr. Reji Nelson MD Admit Provider, Other Pro vider Active Dr. Janet Philip MD Attending Provider Active Hyperion Analyst Relationship Specialty Start Date End Date Ilir Hernández MD [address] [place] [address] PCP - General Family Medicine 02/26/13 TiffinBernadette, [facility] [address] [facility] [address] Pharmacist Pharmacy 01/18/19 Hyperion Analyst Relationship Specialty Start Date End Date Ilri Hernández MD [address] [place] [address] PCP - General Family Medicine 02/26/13 TiffinDenaBernadette, [facility] [address] [place] [address] Pharmacist Pharmacy 01/18/19 Hyperion Analyst Relationship Specialty Start Date End Date Ilir Hernández MD [address] [place] [address] PCP - General Family Medicine 02/26/13 TiffinDenaBernadette, [facility] [address] [place] [address] Pharmacist Pharmacy 01/18/19 Team Status: Active Member Role Status Dates Dr. Ilir Hernández MD Primary Care Provider Active Dr. Loulou Buenrostro , DO Emergency Provider Active Dr. Anthony Singleton , Admit Provider, Other Provid er Active Dr. Aaliyah Tubbs MD Attending Provider, Other Prov ider Active Dr. Scott Sutton MD Other Provider Active Team Status: Inactive Member Role Status Dates Dr. Ilir Hernández MD Primary Care Provider Active Dr. Loulou Buenrostro , DO Emergency Provider Active Dr. Anthony Singleton , DO Admit Provider, Other Provid er Active Dr. Aaliyah Tubbs MD Attending Provider Active Dr. Scott Sutton MD Other Provider Active Hyperion Analyst Relationship Specialty Start Date End Date Ilir Hernández MD [address] [facility], [place] [address] PCP - General Family Medicine 02/26/13 Bernadette Valerio, [facility] [address] [facility], [place] [address] Pharmacist Pharmacy 01/18/19 Team Status: Inactive Member Role Status Dates Dr. Ilir Hernández MD Primary Care Provider, Referring Provider Active Traci Hinds WHARF OPERATOR-C Active Dr. Charles Chi MD Attending Provider Active Team Status: Active Member Role Status Dates Dr. Ilir Hernández MD Primary Care Provider Active Minor SEAY Attending Provider Active Team Status: Active Member Role Status Dates Dr. Ilir Hernández MD Primary Care Provider Active Dr. [place] Jessica MD Emergency Provider Active Dr. Jj Whitfield MD Admit Provider, Attending Provi adele Active Team Status: Active Member Role Status Dates Dr. Ilir Hernández MD Primary Care Provider Active Minor SEAY Attending Provider, Referring Provide r Active Team Status: Active Member Role Status Dates Dr. Ilir Hernández MD Primary Care Provider Active Dr. [place] Jessica MD Emergency Provider Active Dr. Jj Whitfield MD Admit Provider, Other Provider Active Dr. Anthony Perez MD Attending Provider, Other Provid er Active Team Status: Active Member Role Status Dates Dr. Ilir Hernández MD Primary Care Provider Active Dr. [place] Jessica MD Emergency Provider Active Dr. Jj Whitfield MD Admit Provider, A ttending Provider, Other Provider Active Dr. Anthony Perez MD Other Provider Active Team Status: Inactive Member Role Status Dates Dr. Ilir Hernández MD Primary Care Provider Active Dr. [place] Jessica MD Emergency Provider Active Dr. Jj Whitfield MD Admit Provider, A ttending Provider, Other Provider Active Dr. Anthony Perez MD Other Provider Active Hyperion Analyst Relationship Specialty Start Date End Date Ilir Hernández MD [address] [place] [address] PCP - General Family Medicine 02/26/13 Bernadette Valerio, [facility] [address] [place] [address] Pharmacist Pharmacy 01/18/19 Hyperion Analyst Relationship Specialty Start Date End Date Ilir Hernández MD [address] [place] [address] PCP - General Family Medicine 02/26/13 TiffinBernadette rubio, [facility] [address] [place] [address] Pharmacist Pharmacy 01/18/19 Hyperion Analyst Relationship Specialty Start Date End Date Ilir Hernández MD [address] [place] [address] PCP - General Family Medicine 02/26/13 Bernadette Valerio, [facility] [address] [place] [address] Pharmacist Pharmacy 01/18/19 Hyperion Analyst Relationship Specialty Start Date End Date Ilir Hernández MD [address] [place] [address] PCP - General Family Medicine 02/26/13 Bernadette Valerio, [facility] [address] [place] [address] Pharmacist Pharmacy 01/18/19 Hyperion Analyst Relationship Specialty Start Date End Date Ilir Hernández MD [address] [place] [address] PCP - General Family Medicine 02/26/13 Bernadette Valerio, [facility] [address] [place] [address] Pharmacist Pharmacy 01/18/19 Hyperion Analyst Relationship Specialty Start Date End Date Ilir Hernández MD [address] [place] [address] PCP - General Family Medicine 02/26/13 Bernadette Valerio, [facility] [address] [place] [address] Pharmacist Pharmacy 01/18/19 Hyperion Analyst Relationship Specialty Start Date End Date Ilir Hernández MD [address] [place] [address] PCP - General Family Medicine 02/26/13 [facility] [address] [place] [address] Pharmacist Pharmacy 01/18/19 Hyperion Analyst Relationship Specialty Start Date End Date Ilir Hernández MD [address] [place] [address] PCP - General Family Medicine 02/26/13 [facility] [address] [place] [address] Pharmacist Pharmacy 01/18/19 Hyperion Analyst Relationship Specialty Start Date End Date Ilir Hernández MD [address] [place] [address] PCP - General Family Medicine 02/26/13 Berndaette Valerio, [facility] [address] [place] [address] Pharmacist Pharmacy 01/18/19 Hyperion Analyst Relationship Specialty Start Date End Date Ilir Hernández MD [address] [place] [address] PCP - General Family Medicine 02/26/13 Bernadette Valerio, [facility] [address] [place] [address] Pharmacist Pharmacy 01/18/19 Hyperion Analyst Relationship Specialty Start Date End Date Ilir Hernández MD [address] [place] [address] PCP - General Family Medicine 02/26/13 ImanDena rubioily, [facility] [address] [place] [address] Pharmacist Pharmacy 01/18/19 Hyperion Analyst Relationship Specialty Start Date End Date Ilir Hernández MD [address] [place] [address] PCP - General Family Medicine 02/26/13 Dena Valerioily, [facility] [address] [place] [address] Pharmacist Pharmacy 01/18/19 Hyperion Analyst Relationship Specialty Start Date End Date Ilir Hernández MD [address] [place] [address] PCP - General Family Medicine 02/26/13 ImanDena rubioily, [facility] [address] [place] [address] Pharmacist Pharmacy 01/18/19 Hyperion Analyst Relationship Specialty Start Date End Date Ilir Hernández MD [address] [place] [address] PCP - General Family Medicine 02/26/13 ImanDena rubioily, [facility] [address] [place] [address] Pharmacist Pharmacy 01/18/19 Hyperion Analyst Relationship Specialty Start Date End Date Ilir Hernández MD [address] [place] [address] PCP - General Family Medicine 02/26/13 [facility] [address] [place] [address] Pharmacist Pharmacy 01/18/19 [facility] [address] [place] [address] Pharmacist Pharmacy 04/13/19 08/27/20 Hyperion Analyst Relationship Specialty Start Date End Date Ilir Hernández MD [address] [place] [address] PCP - General Family Medicine 02/26/13 [facility]in [facility] [address] [place] [address] Pharmacist Pharmacy 01/18/19 Hyperion Analyst Relationship Specialty Start Date End Date Ilir Hernández MD [address] [place] [address] PCP - General Family Medicine 02/26/13 TiffinBernadette, [facility] [address] [place] [address] Pharmacist Pharmacy 01/18/19 Ysabel Edwards APRN.MATERIAL LOADER [address] [place] [address] Maintenance Planning Clerk Family Medicine 07/23/24 Claire Lancaster APRN.MATERIAL LOADER [address] [place] [address] Maintenance Planning Clerk Family Medicine 07/23/24 Hyperion Analyst Relationship Specialty Start Date End Date Ilir Hernández MD [address] [place] [address] PCP - General Family Medicine 02/26/13 [facility]adette [facility] [address] [place] [address] Pharmacist Pharmacy 01/18/19 Ysabel Edwards, 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 [address] [place] [address] Maintenance Planning Clerk Family Medicine 07/23/24 Claire Lancaster 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 [address] [place] [address] Maintenance Planning Clerk [facility] Medicine 07/23/24 Hyperion Analyst Relationship Specialty Start Date End Date Ilir Hernández MD [address] [place] [address] PCP - General Family Medicine 02/26/13 [facility] [address] [place] [address] Pharmacist Pharmacy 01/18/19 Ysabel Edwards, 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 [address] [place] [address] Maintenance Planning Clerk Family Medicine 07/23/24 Claire Lancaster 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 [address] [place] [address] Maintenance Planning Clerk Family Medicine 07/23/24 Hyperion Analyst Relationship Specialty Start Date End Date Ilir Hernández MD [address] [place] [address] PCP - General Family Medicine 02/26/13 [facility] [address] [place] [address] Pharmacist Pharmacy 01/18/19 Ysabel Edwards APRN.MATERIAL LOADER [address] [place] [address] Maintenance Planning Clerk Family Medicine 07/23/24 Claire Lancaster APRN.MATERIAL LOADER [address] [place] [address] Maintenance Planning Clerk Family Medicine 07/23/24 Hyperion Analyst Relationship Specialty Start Date End Date Ilir Hernández MD [address] [place] [address] PCP - General Family Medicine 02/26/13 [facility] [address] [place] [address] Pharmacist Pharmacy 01/18/19 Ysabel Edwards APRN.MATERIAL LOADER [address] [place] [address] Maintenance Planning Clerk Family Medicine 07/23/24 Claire Lancaster APRN.MATERIAL LOADER [address] [place] [address] Maintenance Planning Clerk Family Medicine 07/23/24 Hyperion Analyst Relationship Specialty Start Date End Date Ilir Hernández MD [address] [place] [address] PCP - General Family Medicine 02/26/13 [facility] [address] [place] [address] Pharmacist Pharmacy 01/18/19 Ysabel Edwards APRN.MATERIAL LOADER [address] [place] [address] Maintenance Planning Clerk Family Medicine 07/23/24 Claire Lancaster APRN.MATERIAL LOADER [address] [place] [address] Maintenance Planning Clerk Family Medicine 07/23/24 Hyperion Analyst Relationship Specialty Start Date End Date Ilir Hernández MD [address] [place] [address] PCP - General Family Medicine 02/26/13 [facility] [address] [place] [address] Pharmacist Pharmacy 01/18/19 Ysabel Edwards APRN.MATERIAL LOADER [address] [place] [address] Maintenance Planning Clerk Family Medicine 07/23/24 Claire Lancaster APRN.MATERIAL LOADER [address] [place] [address] Maintenance Planning Clerk Family Medicine 07/23/24 Hyperion Analyst Relationship Specialty Start Date End Date Ilir Hernández MD [address] [place] [address] PCP - General Family Medicine 02/26/13 [facility] [address] [place] [address] Pharmacist Pharmacy 01/18/19 Ysabel Edwards APRN.MATERIAL LOADER [address] [place] [address] Maintenance Planning Clerk Family Medicine 07/23/24 Claire Lancaster APRN.MATERIAL LOADER [address] [place] [address] [facility] 07/23/24 Hyperion Analyst Relationship Specialty Start Date End Date Ilir Hernández MD [address] [place] [address] PCP - General Family Medicine 02/26/13 [facility] [address] [place] [address] Pharmacist Pharmacy 01/18/19 Ysabel Edwards APRN.MATERIAL LOADER [address] [place] [address] [facility] 07/[facility]/24 Claire Lancaster APRN.MATERIAL LOADER [address] [place] [address] [facility] 07/23/24 Hyperion Analyst Relationship Specialty Start Date End Date Ilir Hernández MD [address] [place] [address] PCP - General Family Medicine 02/26/13 [facility] [address] [place] [address] Pharmacist Pharmacy 01/18/19 Ysabel Edwards APRN.MATERIAL LOADER [address] [place] [address] [facility] [place] 07/23/24 Claire Lancaster APRN.MATERIAL LOADER [address] [facility] [address] Maintenance Planning Clerk Family Medicine 07/23/24 Hyperion Analyst Relationship Specialty Start Date End Date Ilir Hernández MD [address] [place] [address] PCP - General Family Medicine 02/26/13 [facility] [address] [place] [address] Pharmacist Pharmacy 01/18/19 Ysabel Edwards 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 [address] [place] [address] Maintenance Planning Clerk Family [facility] 07/23/24 Claire Lancaster 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 [address] [place] [address] Maintenance Planning Clerk Family [facility] 07/23/24 Hyperion Analyst Relationship Specialty Start Date End Date Ilir Hernández MD [address] [place] [address] PCP - General Family Medicine 02/26/13 [facility] [address] [place] [address] Pharmacist Pharmacy 01/18/19 Ysabel Edwards, 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 [address] [place] [address] Maintenance Planning Clerk Family Medicine 07/23/24 Claire Lancaster 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 [address] [place] [address] Maintenance Planning Clerk Family Medicine 07/23/24 Hyperion Analyst Relationship Specialty Start Date End Date Ilir Hernández MD [address] [place] [address] PCP - General Family Medicine 02/26/13 [facility] [address] [place] [address] Pharmacist Pharmacy 01/18/19 Ysabel Edwards, 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 [address] [place] [address] Maintenance Planning Clerk Family [facility] 07/23/24 Claire Lancaster 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 [address] [place] [address] Maintenance Planning Clerk [facility] 07/23/24 Hyperion Analyst Relationship Specialty Start Date End Date Ilir Hernández MD [address] [place] [address] PCP - General Family Medicine 02/26/13 [facility] [address] [place] [address] Pharmacist Pharmacy 01/18/19 Ysabel Edwards, 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 [address] [place] [address] Maintenance Planning Clerk Family Medicine 07/23/24 Claire Lancaster 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 [address] [place] [address] Maintenance Planning Clerk [facility] 07/23/24 Hyperion Analyst Relationship Specialty Start Date End Date Ilir Hernández MD [address] [place] [address] PCP - General Family Medicine 02/26/13 [facility] [address] [facility] [address] Pharmacist Pharmacy 01/18/19 Ysabel Edwards APRN.MATERIAL LOADER [address] [facility] [place] [address] Maintenance Planning Clerk Family [facility] 07/23/24 Claire Lancaster APRN.MATERIAL LOADER [address] [facility] [place] [address] Maintenance Planning Clerk [facility] 07/23/24 Team Status: Active Member Role Status Dates Dr. Ilir Hernández MD Primary Care Provider Active Team Status: Inactive Member Role Status Dates Dr. Ilir Hernández MD Primary Care Provider Active Start: October 03, 2024 End: October 03, 2024 JACOB Cohen Attending Provider Active Start: October 03, 2024 End: October 03, 2024 JACOB Cohen Referring Provider Active Start: October 03, 2024 End: October 03, 2024 Team Status: Inactive Member Role Status Dates Dr. Ilir Hernández MD Primary Care Provider Active Start: October 08, 2024 End: October 08, 2024 Dr. Ilir Hernández MD Referring Provider Active Start: October 08, 2024 End: October 08, 2024 Dr. Charles Chi MD Attending Provider Active Sta rt: October 08, 2024 End: October 08, 2024 Team Status: Inactive Member Role Status Dates Dr. Ilir Hernández MD Primary Care Provider Active Start: December 10, 2024 End: December 10, 2024 Dr. Rachel Johnson MD Attending Provider Active Start: December 10, 2024 End: December 10, 2024 Dr. Rachel Johnson MD Referring Provider Active Start: December 10, 2024 End: December 10, 2024 Team Status: Inactive Member Role Status Dates Dr. Ilir Hernández MD Primary Care Provider Active Start: January 21, 2025 End: January 21, 2025 Dr. Ilir Hernández MD Referring Provider Active Start: January 21, 2025 End: January 21, 2025 Dr. Charles Chi MD Attending Provider Active Sta rt: January 21, 2025 End: January 21, 2025 Hyperion Analyst Relationship Specialty Start Date End Date Ilir Hernández MD [address] [place] [address] PCP - General Family Medicine 02/26/13 [facility] [address] [place] [address] Pharmacist Pharmacy 01/18/19 Ysabel Edwards, 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 [address] [facility] [place] [address] Maintenance Planning Clerk Family Medicine 07/23/24 Claire Lancaster 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 [address] [place] [address] Maintenance Planning Clerk Family Medicine 07/23/24 Hyperion Analyst Relationship Specialty Start Date End Date Ilir Hernández MD [address] [place] [address] PCP - General Family Medicine 02/26/13 [facility] [address] [place] [address] Pharmacist Pharmacy 01/18/19 Ysabel Edwards, 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 [address] [facility] [place] [address] Maintenance Planning Clerk Family Medicine 07/23/24 Claire Lancaster 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 [address] [place] [address] Maintenance Planning Clerk Family Medicine 07/23/24 Hyperion Analyst Relationship Specialty Start Date End Date Ilir Hernández MD [address] [place] [address] PCP - General Family Medicine 02/26/13 [facility] [address] [place] [address] Pharmacist Pharmacy 01/18/19 Ysabel Edwards, 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 [address] [place] [address] Maintenance Planning Clerk Family Medicine 07/23/24 Claire Lancaster 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 [address] [place] [address] Maintenance Planning Clerk Family Medicine 07/23/24 Hyperion Analyst Relationship Specialty Start Date End Date Ilir Hernández MD [address] [place] [address] PCP - General Family Medicine 02/26/13 [facility] [address] [place] [address] Pharmacist Pharmacy 01/18/19 Ysabel Edwards, 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 [address] [place] [address] Maintenance Planning Clerk Family Medicine 07/23/24 Claire Lancaster 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 [address] [place] [address] Maintenance Planning Clerk Family Medicine 07/23/24 Hyperion Analyst Relationship Specialty Start Date End Date Ilir Hernández MD [address] [place] [address] PCP - General Family Medicine 02/26/13 [facility] [address] [place] [address] Pharmacist Pharmacy 01/18/19 Ysabel Edwards, LIVIA.MATERIAL LOADER [address] [place] [address] Maintenance Planning Clerk [facility] 07/23/24 Claire Lancaster 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 [address] [place] [address] [facility]/23/24 Hyperion Analyst Relationship Specialty Start Date End Date Ilir Hernández MD [address] [place] [address] PCP - General Family Medicine 02/26/13 [facility] [address] [facility] [address] Pharmacist Pharmacy 01/18/19 Ysabel Edwards, 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 [address] [place] [address] [facility] [place] 07/23/24 Claire Lancaster 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 [address] [place] [address] Maintenance Planning [facility] [place] 07/23/24 Team Status: Active Member Role/Relationship Status Dates Dr. Ilir Hernández MD Primary Care Provider Active Team Status: Inactive Member Role/Relationship Status Dates Dr. Ilir Hernández MD Primary Care Provider Active Start: December 10, 2024 End: December 10, 2024 Dr. Rachel Johnson MD Attending Provider Active Start: December 10, 2024 End: December 10, 2024 Dr. Rachel Johnson MD Referring Provider Active Start: December 10, 2024 End: December 10, 2024 Team Status: Inactive Member Role/Relationship Status Dates Dr. Ilir Hernández MD Primary Care Provider Active Start: January 21, 2025 End: January 21, 2025 Dr. Ilir Hernández MD Referring Provider Active Start: January 21, 2025 End: January 21, 2025 Dr. Charles Chi MD Attending Provider Active Sta rt: January 21, 2025 End: January 21, 2025 Team Status: Inactive Member Role/Relationship Status Dates Dr. Ilir Hernández MD Primary Care Provider Active Start: March 04, 2025 End: March 04, 2025 Dr. Rachel Johnson MD Attending Provider Active Start: March 04, 2025 End: March 04, 2025 Dr. Rachel Johnson MD Referring Provider Active Start: March 04, 2025 End: March 04, 2025 Team Status: Inactive Member Role/Relationship Status Dates Dr. Ilir Hernández MD Primary Care Provider Active Start: March 19, 2025 End: March 19, 2025 Dr. Ilir Hernández MD Referring Provider Active Start: March 19, 2025 End: March 19, 2025 Dr. Charles Chi MD Attending Provider Active Sta rt: March 19, 2025 End: March 19, 2025 Hyperion Analyst Relationship Specialty Start Date End Date Ilir Hernández MD [address] [facility] [place] [address] PCP - General Family Medicine 02/26/13 Bernadette Valerio [facility] [address] [place] [address] Pharmacist Pharmacy 01/18/19 Ysabel Edwards, 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 [address] [facility], [place] [address] Maintenance Planning Clerk Family Medicine 07/23/24 Claire Lancaster, 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 [address] [facility] [address] Maintenance Planning Clerk Family Medicine 07/23/24 Hyperion Analyst Relationship Specialty Start Date End Date Ilir Hernández MD [address] [place], [place] [id number] PCP - General Family Medicine 02/26/13 Bernadette Valerio [facility] [address] [place], [place] [address] Pharmacist Pharmacy 01/18/19 Ysabel Edwards APRN.MATERIAL LOADER [address] [place], [place] [address] Maintenance Planning Clerk Family [facility] 07/23/24 Claire Lancaster APRN.MATERIAL LOADER [address] [place], [place] [address] Maintenance Planning Clerk [facility] 07/23/24 Goals (unrecognized section and content) Goals may be documented in a n alternate sectionGoals may be documented in an alternate sectionGoals may be documented in an alternate sectionGoals may be documented in an alternate sectionGoals may be documented in an alternate sectionGoals may be documented in an alternate sectionGoals may be documented in an alternate sectionGoals may be documented in an alternate sectionGoals may be documented in an alternate sectionGoals may be documented in an alternate sectionGoals may be documented in an alternate sectionGoals may be documented in an alternate section FOR RECORDS PERTAINING TO PATIENTS WHO ARE OR HAVE BEEN ENROLLED IN A CHEMICAL DEPENDENCY/SUBSTANCEABUSE PROGRAM, SOME INFORMATION MAY BE OMITTED. This clinical summary was aggregated from multiple sources. Caution should be exercised in using it in the provision of clinical care. This summary normalizes information from multiple sources, and as a consequence, information in this document may materially change the coding, format and clinical context of patient data. In addition, data may be omitted in some cases. CLINICAL DECISIONS SHOULD BE BASED ON THE PRIMARY CLINICAL RECORDS. [email or web address]. provides no warranty or guarantee of the accuracy or completeness of information in this document."
== END 2025-05-05 16:25 | disposition home or self-care (01) ==
PROVIDERS: Emergency Provider Emergency Medicine; PCP Family Medicine; Visit Provider Emergency Medicine
DX: R51.9 Headache, unspecified (principal); J44.9 Chronic obstructive pulmonary disease, unspecified; E11.40 Type 2 diabetes mellitus with diabetic neuropathy, unspecified; H57.13 Ocular pain, bilateral; I10 Essential (primary) hypertension; R09.81 Nasal congestion; E78.00 Pure hypercholesterolemia, unspecified; Z79.82 Long term (current) use of aspirin; Z87.891 Personal history of nicotine dependence
CPT/HCPCS: 70486; 99282

== ENCOUNTER 2025-05-25 10:56 | Outpatient (RCR) | payer MEDICARE, SELFPAY ==
[2025-05-25 11:11] LABS: Hematocrit 37.5 % (37-47); Hemoglobin 12.3 g/dL (12.0-15.0); Immature Granulocytes Count 0.040 X10^3/uL (0.0-0.0); Mean Corp Hgb Conc 32.8 g/dL (32-36); Mean Corpuscular Volume 92.4 fL (81-99); Mean Platelet Vol. 9.6 fl (6.2-12.0); NRBC Flagged by Analyzer 0 % (0-5); Platelet Count 239 K/mm3 (150-450); RBC Distribution Width CV 12.7 % (11.6-14.6); RBC Distribution Width SD 43.0 fl (35.1-43.9); Red Blood Count 4.06 M/mm3 (4.2-5.4); White Blood Count 7.3 K/mm3 (4.4-11.0)
[2025-05-25 11:58] LABS: AST(SGOT) 20 U/L (<=31); Alanine Aminotransfer ALT/SGPT 12 U/L (<=34); Albumin, Serum 3.7 g/dL (3.4-4.8); Alkaline Phosphatase 58 U/L (35-104); Anion Gap 13 (5-15); BUN 18 mg/dL (4-19); BUN/Creat Ratio 18.6 RATIO (10-20); Calcium,Total 9.2 mg/dL (7.6-11.0); Carbon Dioxide 24.6 mmol/L (21.0-32.0); Chloride 100 mmol/L (98-108); Globulin 3.4 g/dL (2.2-4.2); Glucose 275 mg/dL (70-99); Potassium 4.4 mmol/L (3.3-5.1)
[2025-05-25 12:13] LABS: Vitamin D,25 Hydroxy 83.3 ng/mL (30-100)
== END 2025-05-25 18:00 | disposition home or self-care (01) ==
LOC: LAB 10:56
PROVIDERS: Internal Medicine Endocrinology, Diabetes & Metabolism; PCP Family Medicine; Referring Provider Internal Medicine Rheumatology; Visit Provider Internal Medicine Rheumatology
DX: M06.4 Inflammatory polyarthropathy (principal); Z79.899 Other long term (current) drug therapy; E55.9 Vitamin D deficiency, unspecified
CPT/HCPCS: 36415; 80053; 82306; 85025

== ENCOUNTER → 2025-06-26 | Outpatient (CLI) | payer MEDICARE, SELFPAY ==
[2025-06-26 12:24] LABS: Hematocrit 35.7 % (37-47); Hemoglobin 11.9 g/dL (12.0-15.0); Immature Granulocytes Count 0.030 X10^3/uL (0.0-0.0); Mean Corp Hgb Conc 33.3 g/dL (32-36); Mean Corpuscular Volume 93.5 fL (81-99); Mean Platelet Vol. 10.0 fl (6.2-12.0); NRBC Flagged by Analyzer 0 % (0-5); Platelet Count 215 K/mm3 (150-450); RBC Distribution Width CV 13.0 % (11.6-14.6); RBC Distribution Width SD 44.7 fl (35.1-43.9); Red Blood Count 3.82 M/mm3 (4.2-5.4); White Blood Count 5.6 K/mm3 (4.4-11.0)
[2025-06-26 12:59] LABS: AST(SGOT) 16 U/L (<=31); Alanine Aminotransfer ALT/SGPT 13 U/L (<=34); Albumin, Serum 3.6 g/dL (3.4-4.8); Alkaline Phosphatase 49 U/L (35-104); Anion Gap 9 (5-15); BUN 17 mg/dL (4-19); BUN/Creat Ratio 20.1 RATIO (10-20); Calcium,Total 9.6 mg/dL (7.6-11.0); Carbon Dioxide 29.4 mmol/L (21.0-32.0); Chloride 99 mmol/L (98-108); Globulin 3.3 g/dL (2.2-4.2); Glucose 345 mg/dL (70-99); Potassium 4.3 mmol/L (3.3-5.1)
== END | disposition home or self-care (01) ==
LOC: MTLAB 09:14
PROVIDERS: PCP Family Medicine; Referring Provider Internal Medicine Rheumatology; Visit Provider Internal Medicine Rheumatology
DX: M06.4 Inflammatory polyarthropathy (principal); Z79.899 Other long term (current) drug therapy
CPT/HCPCS: 36415; 80053; 85025